=== PATIENT | female | born 1960 | race African-American/Black ===

== ENCOUNTER 2022-06-07 11:44 | Outpatient (CLI) | payer MEDICARE, OTHER, SELFPAY | END 2022-06-07 11:45 | disposition home or self-care (01) | LOC: AMB 06-21 13:52 | PROVIDERS: PCP Family Medicine; Visit Provider Family Medicine | DX: E11.649 Type 2 diabetes mellitus with hypoglycemia without coma (principal); R41.82 Altered mental status, unspecified | CPT/HCPCS: A0425; A0427 ==

== ENCOUNTER 2022-06-07 12:23 | Emergency (ER) | payer MEDICARE, OTHER, SELFPAY ==
[2022-06-07 12:31] VITALS: BP 138/67; PULSE 82; RESP 16; TEMP 36.2; O2SAT 96; BMI 35.2
--- NOTE | 2022-06-07 12:45 | ED.GENADULT ---
HPI - General Adult General Chief complaint: Diabetic Related Problem Stated complaint: Diabetic complications Time Seen by Provider: 06/07/22 12:38 History of Present Illness HPI narrative: This 61-year-old female comes in by ambulance because of a hypoglycemic event. She was not responding at home and was found to have a blood glucose of 30. She received glucagon and was able to take some food and drink and her glucose is normalized since then. She states that she feels back to normal. She reports that she has had hypoglycemic episodes many times in the past. She reports that she has a monitor that is to trigger an alarm when her glucose goes low. This was not functioning because the battery needed to be charged. She states that she takes Lantus at night and thinks that she took her regular NovoLog dose at about 9 or 930 this morning, about 3 hours prior to arrival here. She states that she did not have anything to eat or drink this morning. She reports that she took her normal doses of these medicines and did not accidentally take more than necessary. Related Data Allergies Allergy/AdvReac Type Severity Reaction Status Date / Time No Known Drug Allergies Allergy Verified 06/07/22 12:36 Review of Systems Status of ROS: Reports: 10 or more systems reviewed and unremarkable except as noted in History and below Narrative: Constitutional: No fevers, no weight gain or loss. Eyes: No discharge. No vision changes. HENT: No congestion, no sore throat, no ear pain. Cardiovascular: No chest pain, no palpitations. Respiratory: No shortness of breath, no wheezes, no cough. Gastrointestinal: No abdominal pain, no vomiting, no diarrhea. Genitourinary: No dysuria, no hematuria. Musculoskeletal: Normal range of motion. Skin: No rashes, no pruritis. Neurological: No dizziness, weakness, sensory change, speech change. Endo/Heme/Allergies: No bruising or bleeding. No polydipsia. Pysch: no suicidality, no anxiety, no insomnia. All other systems reviewed and are negative. Exam Narrative: Exam Narrative: Constitutional: Well-developed, well-nourished, no acute distress. HEENT: Normocephalic, atraumatic. Neck: Normal range of motion. Nontender. Supple. Heart: Regular. No murmurs. Normal rate. Intact distal pulses. Lungs: Clear to auscultation. No chest discomfort. No wheezes, rhonchi, or rales. Abdomen: Normal bowel sounds. Nontender. No rebound tenderness. Genitalia: Deferred. Back: No midline tenderness. Normal range of motion. Extremities: Normal range of motion. No injury. Skin: Intact. No rash. Warm. No erythema or pallor. Neurologic: No altered sensation. No weakness. Alert and oriented. Psychiatric: No suicidality. No anxiety or depression. No insomnia. Nursing notes and vitals signs are reviewed. Const: Vital Signs, click to edit/add: Vital Signs - 24 hr 06/07/22 12:31 Temperature 97.1 F L Pulse Rate [Pulse Oximeter] 82 Respiratory Rate 16 Blood Pressure [Ri t Upper Arm] 138/67 Pulse Oximetry 96 Oxygen Delivery Me thod Room Air Course Vital Signs Vital signs: Initial Vital Signs Temperature 97.1 F L 06/07/22 12:31 Temperature Source Temporal Artery Scan 06/07/22 12:31 Pulse Rate 82 06/07/22 12:31 Respiratory Rate 16 06/07/22 12:31 Blood Pressure 138/67 06/07/22 12:31 Blood Pressure Mean 90 06/07/22 12:31 Pulse Oximetry 96 06/07/22 12:31 Oxygen Delivery Method 06/07/22 12:31 Vital Signs Temperature 97.1 F L 06/07/22 12:31 Pulse Rate 82 06/07/22 12:31 Respiratory Rate 16 06/07/22 12:31 Blood Pressure 138/67 06/07/22 12:31 Pulse Oximetry 96 06/07/22 12:31 Oxygen Delivery Method 06/07/22 12:31 Temperature 97.1 F L 06/07/22 12:31 Pulse Rate 82 06/07/22 12:31 Respiratory Rate 16 06/07/22 12:31 Blood Pressure 138/67 06/07/22 12:31 Pulse Oximetry 96 06/07/22 12:31 Oxygen Delivery Method 06/07/22 12:31 Medical Decision Making MDM Narrative Medical decision making narrative: This patient comes in by ambulance because of a hypoglycemic event. Her initial blood glucose was measured at 30. After receiving glucagon EMS her blood glucose improved to 60. A recheck prior to my initial visit showed a glucose of 70 for. She states that she is feeling normal and is been taking food here. Repeat glucose after about 60 minutes returns at 213. She is okay to return home to continue current plans. She was urged to keep her alarm functioning as a hypoglycemic event is potentially a true emergency. ECG Data Attestation: I personally reviewed and interpreted this ECG as follows: Interpretation: Normal sinus rhythm. Rate is 71 beats per minute. There are no ST or T-wave abnormalities. Discharge Plan Discharge Clinical Impression: Hypoglycemic event due to diabetes Patient Disposition: Home, Self-Care Condition: Improved Additional Instructions: Continue current plans. Keep the alarm function of the monitor working properly to monitor and worn for hypoglycemic episodes. Follow up with MD to review medications. Return if worsening. Follow Up/Referrals: Shania Montiel MD [Primary Care Provider] - Stand Alone Forms: [employer] Info Instructions
[2022-06-07 14:36] VITALS: BP 150/78; PULSE 67; RESP 20; TEMP 35.7; O2SAT 90
== END 2022-06-07 15:17 | disposition home or self-care (01) ==
PROVIDERS: Emergency Provider Emergency Medicine Emergency Medical Services; PCP Family Medicine
DX: E11.649 Type 2 diabetes mellitus with hypoglycemia without coma (principal); Z79.4 Long term (current) use of insulin
CPT/HCPCS: 82962; 93005; 99283; 99284

== ENCOUNTER 2022-10-11 02:09 | Outpatient (CLI) | payer MEDICARE, OTHER, SELFPAY | END 2022-10-11 02:10 | disposition home or self-care (01) | LOC: AMB 10-29 11:44 | PROVIDERS: PCP Family Medicine; Visit Provider Emergency Medicine | DX: E11.649 Type 2 diabetes mellitus with hypoglycemia without coma (principal); R41.82 Altered mental status, unspecified | CPT/HCPCS: A0425; A0427 ==

== ENCOUNTER 2022-10-11 02:35 | Inpatient (IN) | payer MEDICARE, OTHER, SELFPAY ==
[2022-10-11] VITALS (61 sets, daily range): BP systolic 81–131; BP diastolic 28–102; PULSE 75–128; RESP 17–32; TEMP 36.4–37.1; O2SAT 33–100; BMI 42.2
[2022-10-11] MEDS: 0.9 % SODIUM CHLORIDE 1000 ml 1,000 ML IV (02:45)
--- NOTE | 2022-10-11 02:50 | ED.GENADULT ---
HPI - General Adult General Date Seen: 10/11/22 Chief complaint: Diabetic Related Problem Stated complaint: High Blood Sugar Time Seen by Provider: 10/11/22 02:42 Source: patient and EMS Mode of arrival: EMS Limitations: no limitations History of Present Illness HPI narrative: Patient is a 61-year-old woman known to the emergency department, history of diabetes and diabetic ketoacidosis, brought in by EMS after family noted that she had high blood sugars and was less responsive than usual. She provides minimal history, she says she feels okay. EMS noted a blood sugar greater than 600. She denies pain or vomiting today, but history is of uncertain reliability. She does not provide any more detailed history. EMS reports that her son was at the house with her but they do not think that he is coming in. Her most recent ER visit was several months ago and was for a hypoglycemic event. I have seen her previously for similar presentation with diabetic ketoacidosis an altered mental status. Related Data Allergies Allergy/AdvReac Type Severity Reaction Status Date / Time No Known Drug Allergies Allergy Verified 06/07/22 12:36 Review of Systems Status of ROS: Reports: unobtainable due to medical condition and unobtainable due to mental status [facility] Medical History (Updated 10/11/22 @ 07:03 by Veda More MD) Acute respiratory failure ?J96.00 - Acute respiratory failure, unspecified whether with hypoxia or hypercapnia (ICD-10) Anemia of other chronic disease ?D63.8 - Anemia in other chronic diseases classified elsewhere (ICD-10) Carpal tunnel syndrome ?G56.00 - Carpal tunnel syndrome, unspecified upper limb (ICD-10) Chronic kidney disease, stage 1 ?N18.1 - Chronic kidney disease, stage 1 (ICD-10) Chronic pain syndrome ?G89.4 - Chronic pain syndrome (ICD-10) Congestive heart failure (CHF) ?I50.9 - Heart failure, unspecified (ICD-10) COPD (chronic obstructive pulmonary disease) ?J44.9 - Chronic obstructive pulmonary disease, unspecified (ICD-10) Depressive disorder ?F32.A - Depression, unspecified (ICD-10) Diabetes type I ?E10.9 - Type 1 diabetes mellitus without complications (ICD-10) 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 diabetic neuropathic arthropathy (ICD-10) Diabetic retinopathy ?E11.319 - Type 2 diabetes mellitus with unspecified diabetic retinopathy without macular edema (ICD-10) GERD (gastroesophageal reflux disease) ?K21.9 - Gastro-esophageal reflux disease without esophagitis (ICD-10) Headache ?R51.9 - Headache, unspecified (ICD-10) Hyperlipidemia ?E78.5 - Hyperlipidemia, unspecified (ICD-10) Hypertension ?I10 - Essential (primary) hypertension (ICD-10) Morbid obesity ?E66.01 - Morbid (severe) obesity due to excess calories (ICD-10) Shoulder pain, left ?M25.512 - Pain in left shoulder (ICD-10) Sleep apnea ?G47.30 - Sleep apnea, unspecified (ICD-10) Thyroid condition ?E07.9 - Disorder of thyroid, unspecified (ICD-10) Ulnar neuropathy ?G56.20 - Lesion of ulnar nerve, unspecified upper limb (ICD-10) Surgical History (Updated 10/11/22 @ 04:53 by Franki Yao RN) History of carpal tunnel release ?Z98.890 - Other specified postprocedural states (ICD-10) History of section ?Z98.891 - History of uterine scar from previous surgery (ICD-10) History of gastric bypass ?Z98.84 - Bariatric surgery status (ICD-10) History of hip replacement ?Z96.649 - Presence of unspecified artificial hip joint (ICD-10) History of knee replacement procedure of right knee ?Z96.651 - Presence of right artificial knee joint (ICD-10) History of thyroidectomy ?E89.0 - Postprocedural hypothyroidism (ICD-10) Hx of cataract removal with insertion of prosthetic lens ?Z98.49 - Cataract extraction status, unspecified eye (ICD-10) ?Z96.1 - Presence of intraocular lens (ICD-10) Social History Smoking Status: Never smoker Do you use any of these nicotine containing products: None Second hand tobacco smoke exposure: No How often do you have a drink containing alcohol: never AUDIT-C Alcohol total score: 0 Non-prescribed substance use: denies use Exam Narrative: Exam Narrative: Vital signs as noted above. In general, somnolent woman, smells ketotic. Head: Normocephalic, atraumatic. Eyes: Pupils are equal reactive. Extraocular movements are full. Conjunctivae appear possibly icteric. ENT: Mucous membranes are somewhat dry. Neck: Supple without lymphadenopathy. Heart: Regular rate and rhythm. No murmur or rub. Lungs: Clear bilaterally. No increased work of breathing, crackles or wheezes. Abdomen: Soft and nontender. Obese. Extremities: Well perfused. No edema. No calf tenderness. Neurologic: On arrival, she was awake, she does fall asleep if not interacting. Rouses to voice. Answers straightforward questions, speech is fluent. Affect: Normal. Skin: Warm and dry. Well perfused. Const: Vital Signs, click to edit/add: Vital Signs - 24 hr 10/11/22 03:24 10/11/22 02:42 10/11/22 02:49 Temperature 98.5 F Pulse Rate 115 H Pulse Rate [Right Pulse Oximeter] 122 H Respiratory Rate 26 H Blood Pressure 114/35 L Blood Pressure [Ri ght Forearm] 105/68 Pulse Oximetry 97 95 [facility] 10/11/22 02:50 10/11/22 03:00 10/11/22 03:01 Temperature Pulse Rate 115 H 109 H 110 H Pulse Rate [Right Pulse Oximeter] Respiratory Rate 28 H 32 H Blood Pressure 105/37 L Blood Pressure [Ri ght Forearm] Pulse Oximetry 98 97 98 [facility] 10/11/22 03:15 10/11/22 03:30 10/11/22 03:34 Temperature Pulse Rate 128 H 127 H 122 H Pulse Rate [Right Pulse Oximeter] Respiratory Rate 27 H 26 H 26 H Blood Pressure Blood Pressure [Ri ght Forearm] Pulse Oximetry 96 96 98 [facility] 10/11/22 03:45 10/11/22 04:00 10/11/22 04:04 Temperature Pulse Rate 116 H 104 H 103 H Pulse Rate [Right Pulse Oximeter] Respiratory Rate 18 26 H 25 H Blood Pressure 90/31 L Blood Pressure [Ri ght Forearm] Pulse Oximetry 98 99 98 Oxygen Delivery Tn thod 10/11/22 04:15 10/11/22 04:19 10/11/22 04:30 Temperature Pulse Rate 104 H 99 112 H Pulse Rate [Right Pulse Oximeter] Respiratory Rate 23 24 26 H Blood Pressure Blood Pressure [Ri ght Forearm] Pulse Oximetry 99 98 33 L Oxygen Delivery Me thod 10/11/22 04:45 10/11/22 05:00 10/11/22 05:03 Temperature Pulse Rate 107 H 105 H 104 H Pulse Rate [Right Pulse Oximeter] Respiratory Rate 28 H 28 H 26 H Blood Pressure 131/102 H Blood Pressure [Ri ght Forearm] Pulse Oximetry 99 100 100 Oxygen Delivery Me thod 10/11/22 05:39 10/11/22 05:04 10/11/22 05:07 Temperature Pulse Rate 106 H 104 H Pulse Rate [Right Pulse Oximeter] 100 Respiratory Rate 26 H 23 Blood Pressure 97/31 L Blood Pressure [Ri ght Forearm] 104/34 L Pulse Oximetry 98 100 98 Oxygen Delivery Me od Room Air 10/11/22 05:15 10/11/22 05:17 10/11/22 05:30 Temperature Pulse Rate 103 H 102 H 94 Pulse Rate [Right Pulse Oximeter] Respiratory Rate 26 H 25 H 22 Blood Pressure 90/32 L Blood Pressure [Ri ght Forearm] Pulse Oximetry 97 98 99 Oxygen Delivery Me thod 10/11/22 05:31 10/11/22 05:39 10/11/22 05:45 Temperature Pulse Rate 100 103 H 98 Pulse Rate [Right Pulse Oximeter] Respiratory Rate 22 21 25 H Blood Pressure 104/34 L 116/34 L Blood Pressure [Ri ght Forearm] Pulse Oximetry 96 98 99 Oxygen Delivery Tn thod 10/11/22 05:47 10/11/22 06:00 10/11/22 06:02 Temperature Pulse Rate 98 86 86 Pulse Rate [Right Pulse Oximeter] Respiratory Rate 26 H 21 21 Blood Pressure 116/34 L 81/28 L Blood Pressure [Ri ght Forearm] Pulse Oximetry 97 96 96 Oxygen Delivery Me thod 10/11/22 06:14 10/11/22 06:15 10/11/22 06:16 Temperature Pulse Rate 98 98 94 Pulse Rate [Right Pulse Oximeter] Respiratory Rate 17 22 22 Blood Pressure 116/38 L Blood Pressure [Ri ght Forearm] Pulse Oximetry 92 92 94 Oxygen Delivery Me thod 10/11/22 06:38 Temperature Pulse Rate 91 Pulse Rate [Right Pulse Oximeter] Respiratory Rate 22 Blood Pressure 103/30 L Blood Pressure [Ri ght Forearm] Pulse Oximetry 93 Oxygen Delivery Me thod Documenting provider has reviewed patient's vital signs: yes Course Course Hospital Course: On arrival, patient was placed on monitor and oximetry an IV was established as paramedics were unable to find an IV EN route. We attempted to check a blood sugar which simply reads high. Labs were drawn. An EKG is ordered and pending. We placed a Snow catheter and urine is reportedly cloudy. Initial labs show a pH of 7.12, white blood cell count of 14, hemoglobin of 11, 8.4. Bicarb is 10 and pCO2 is 31 on her venous gas. Remainder of labs are pending at this time. I am starting out by giving her L of normal saline, will see how initial electrolytes look and then determine plan for insulin as well as electrolyte replacement if needed. Further labs are notable for an elevated potassium 7.9, a sodium of 121 which corrects to 145 based on severe hyper glycemia with the blood sugar that came back at 1326. Serum oz and are elevated at 335, but she is also significantly acidotic with a pH of 7.1 to and bicarb of 10. Urine did look infected, with 25-50 white blood cells and 5-10 red blood cells. We had difficulty obtaining blood cultures as she is a difficult peripheral stick. Upon completion of blood cultures, will give Rocephin 1 g IV. COVID was negative. She became somewhat agitated while in the emergency department, was pulling at her Snow catheter and was not keeping her arms straight, she had antecubital IVs and so they were not running well. Therefore, I did give her 2.5 mg of IV Zyprexa with good result. After her 1 L of fluid, I have ordered a 2 L but him running that over 2 hours as she does have a history of heart failure with a normal ejection fraction. I have also started an insulin drip after an 8 unit bolus at 10 units an hour. She is 136 kilos. Given her severe hyperglycemia and hyperosmolality, I am hoping to correct her ketosis but also not bring her blood sugar down too quickly. A repeat lactate and basic metabolic panel are pending at this time. Her EKG showed a sinus tachycardia with a ventricular rate a little over 100, T waves were slightly peaked in morphology although not significantly large in amplitude. Her potassium was significantly elevated but I am holding off to see with the repeat looks like now that she has had some fluids and some insulin as I think that that will likely correct as we bring her blood sugar down. She has not shown any signs of cardiac irritability or ectopy. Her phosphorus was significantly elevated which will likely also correct. CRP mildly elevated at 6. LFTs show an alk-phos of 177, transaminases are normal as is her bilirubin. BUN is 55, creatinine is elevated at 3.5, suspect that this is pre renal that this will need to be followed. Her baseline is closer to just under 2. Lactate was slightly worse on recheck at 9. Blood sugar did come down a little bit to 1139, potassium was slightly better at 6.7 and I repeat EKG showed a ventricular rate of 101, normal appearing T-waves. I did not think that she needed further treatment for potassium of and to continue with fluids and insulin. Upon completion of her 2 L, started half normal saline at 100 mL/hour and continued with the 10 units/hour of insulin. I did check labs a 3rd time, her lactate was improved to 6.9, potassium came down to 5.1, and acidosis was somewhat improved with a pH of 7.15 and a bicarb of 10. She is mentating somewhat better as well. I think she is stable to go to of the floor at this time. Care is discussed with Dr. Gamez. Vital Signs Vital signs: Initial Vital Signs Pulse Oximetry 95 10/11/22 02:42 Vital Signs Pulse Oximetry 95 10/11/22 02:42 Temperature 98.5 F 10/11/22 03:24 Pulse Rate 91 10/11/22 06:38 Respiratory Rate 22 10/11/22 06:38 Blood Pressure 103/30 L 10/11/22 06:38 Pulse Oximetry 93 10/11/22 06:38 Oxygen Delivery Method Room Air 10/11/22 05:39 Medical Decision Making Lab Data Labs: Lab Results 10/11/22 10/11/22 10/11/22 Range/Units 02:40 02:55 05:00 WBC 14.22 H (4.50-11.00) K/uL RBC 3.72 L (4.00-5.20) m/uL Hgb 11.0 L (12.0-16.0) gm/dL Hct 36.6 (33.0-51.0) % MCV 98 (80-100) fL MCH 30 (26-34) pg MCHC 30 L (32-36) gm/dL RDW Coeff of Stefan 14.1 (11.5-15.5) % Plt Count 348 (140-440) K/uL Neut % (Auto) 87.3 H (42.0-72.0) % Lymph % (Auto) 5.3 L (20-44) % Miller % (Auto) 6.3 (0.0-11.0) % Eos % (Auto) 0.0 (0.0-7.0) % Baso % (Auto) 0.1 (0.0-3.0) % Neut # (Auto) 12.40 H (1.7-7.0) K/uL Lymph # (Auto) 0.80 L (0.90-2.90) K/uL Miller # (Auto) 0.90 (0.00-0.90) K/UL Eos # (Auto) 0.00 (0.00-0.50) K/uL Baso # (Auto) 0.00 (0.00-0.30) K/uL INR 1.09 (0.91-1.10) VBG pH 7.120 L* (7.32-7.43) VBG pCO2 31 L (40-50) mmHG VBG pO2 51.0 H (25-47) mmHG VBG HCO3 10 L (21-28) mmol/L Sodium 121 L* 125 L (135-149) mmol/L Potassium 6.9 H* 6.7 H* (3.6-5.1) mmol/L Chloride 78 L 84 L (96-114) mmol/L Carbon Dioxide 6 L* < 5 L* (20-32) mmol/L BUN 55 H 55 H (7-30) mg/dL Creatinine 3.5 H 3.5 H (0.5-1.5) mg/dL Estimated GFR 14 14 ml/min Glucose 1326 H* 1139 H* (60-115) mg/dL Lactate 8.4 H* 9.0 H* (0.5-1.9) mmol/L Calcium 8.5 7.9 L (8.4-10.6) mg/dL Phosphorus 9.5 H* (2.5-4.5) mg/dL Magnesium 2.3 (1.5-2.6) mg/dL Total Bilirubin 0.8 (0.1-1.5) mg/dL Direct Bilirubin 0.5 (0.0-0.5) mg/dL AST 27 (12-35) U/L ALT 31 (4-35) U/L Alkaline Phosphatase 177 H (40-150) U/L Troponin I < 0.01 L (0.01-0.04) ng/mL C-Reactive Protein 6.0 H (0.5-1.0) mg/dL Total Protein 7.2 (6.0-8.3) g/dL Albumin 4.1 (3.3-5.0) g/dL Urine Color Yellow (Yellow) Urine Appearance Cloudy A (Clear) Urine pH 5.0 (5.0-8.5) Ur Specific [place] 1.025 (1.000-1.030) Urine Protein 3+ A (Negative) Urine Glucose (UA) 1+ A (Negative) Urine Ketones 1+ A (Negative) Urine Blood 3+ A (Negative) Urine Nitrite Negative (Negative) Urine Bilirubin 1+ A (Negative) Urine Urobilinogen 0.2 (0.2-1.0) Ur Leukocyte Esterase 3+ A (Negative) Urine RBC 5-10 A (0-2) Urine WBC 25-50 A (0-5) Ur Squamous Epith Cells Few (None-Few) Urine Bacteria Moderate A (None) SARS-CoV-2 (PCR) Negative SARS-CoV-2 (Negative) 10/11/22 Range/Units 06:30 WBC (4.50-11.00) K/uL RBC (4.00-5.20) m/uL Hgb (12.0-16.0) gm/dL Hct (33.0-51.0) % MCV (80-100) fL MCH (26-34) pg MCHC (32-36) gm/dL RDW Coeff of Stefan (11.5-15.5) % Plt Count (140-440) K/uL Neut % (Auto) (42.0-72.0) % Lymph % (Auto) (20-44) % Miller % (Auto) (0.0-11.0) % Eos % (Auto) (0.0-7.0) % Baso % (Auto) (0.0-3.0) % Neut # (Auto) (1.7-7.0) K/uL Lymph # (Auto) (0.90-2.90) K/uL Miller # (Auto) (0.00-0.90) K/UL Eos # (Auto) (0.00-0.50) K/uL Baso # (Auto) (0.00-0.30) K/uL INR (0.91-1.10) VBG pH 7.152 L* (7.32-7.43) VBG pCO2 30 L (40-50) mmHG VBG pO2 51.4 H (25-47) mmHG VBG HCO3 10 L (21-28) mmol/L Sodium 127 L (135-149) mmol/L Potassium 5.1 (3.6-5.1) mmol/L Chloride 86 L (96-114) mmol/L Carbon Dioxide 10 L (20-32) mmol/L BUN 56 H (7-30) mg/dL Creatinine 3.6 H (0.5-1.5) mg/dL Estimated GFR 14 ml/min Glucose (60-115) mg/dL Lactate 6.9 H* (0.5-1.9) mmol/L Calcium 7.7 L (8.4-10.6) mg/dL Phosphorus (2.5-4.5) mg/dL Magnesium (1.5-2.6) mg/dL Total Bilirubin (0.1-1.5) mg/dL Direct Bilirubin (0.0-0.5) mg/dL AST (12-35) U/L ALT (4-35) U/L Alkaline Phosphatase (40-150) U/L Troponin I (0.01-0.04) ng/mL C-Reactive Protein (0.5-1.0) mg/dL Total Protein (6.0-8.3) g/dL Albumin (3.3-5.0) g/dL Urine Color (Yellow) Urine Appearance (Clear) Urine pH (5.0-8.5) Ur Specific [place] (1.000-1.030) Urine Protein (Negative) Urine Glucose (UA) (Negative) Urine Ketones (Negative) Urine Blood (Negative) Urine Nitrite (Negative) Urine Bilirubin (Negative) Urine Urobilinogen (0.2-1.0) Ur Leukocyte Esterase (Negative) Urine RBC (0-2) Urine WBC (0-5) Ur Squamous Epith Cells (None-Few) Urine Bacteria (None) SARS-CoV-2 (PCR) (Negative) Discharge Plan Discharge Clinical Impression: UTI (urinary tract infection), DKA, type 1 Follow Up/Referrals: Shania Montiel MD [Primary Care Provider] -
[2022-10-11 02:52] LABS: HCO3 VBG 10 mmol/L (21-28); PCO2 VBG 31 mmHG (40-50)
[2022-10-11 02:53] LABS: Basophils Percent Auto 0.1 % (0.0-3.0); Hematocrit 36.6 % (33.0-51.0); Lymphocytes Percent Auto 5.3 % (20-44); Mean Corpuscular HGB Conc 30 gm/dL (32-36); Mean Corpuscular Hemoglobin 30 pg (26-34); Mean Corpuscular Volume 98 fL (80-100); Monocytes Percent Auto 6.3 % (0.0-11.0); Neutrophils Percent Auto 87.3 % (42.0-72.0); Platelet Count* 348 K/uL (140-440); RDW Coefficient of Variation % 14.1 % (11.5-15.5); Red Blood Count 3.72 m/uL (4.00-5.20); White Blood Count* 14.22 K/uL (4.50-11.00)
[2022-10-11 02:55] LABS: Slide Review Reflex No
[2022-10-11 02:57] LABS: Lactate* 8.4 mmol/L (0.5-1.9)
[2022-10-11 03:02] LABS: Appearance Urine Cloudy (Clear); Bilirubin Urine 1+ (Negative); Blood Urine 3+ (Negative); Color Urine Yellow (Yellow); Glucose Urine 1+ (Negative); Ketones Urine 1+ (Negative); Leukocyte Esterase Urine 3+ (Negative); Nitrite Urine Negative (Negative); Protein Urine 3+ (Negative); Specific Gravity Urine 1.025 (1.000-1.030); Urobilinogen Urine 0.2 (0.2-1.0)
[2022-10-11 03:06] LABS: Bacteria Urine Moderate; Squamous Epithelial Cell Urine Few (None-Few); WBC Urine 25-50 (0-5)
[2022-10-11 03:09] LABS: Albumin* 4.1 g/dL (3.3-5.0); Chloride* 78 mmol/L (96-114)
[2022-10-11 03:12] LABS: Creatinine* 3.5 mg/dL (0.5-1.5); Estimated Glomerular Filt Rate 14 ml/min; Magnesium* 2.3 mg/dL (1.5-2.6)
[2022-10-11 03:13] LABS: Alanine Aminotransferase* 31 U/L (4-35); Alkaline Phosphatase* 177 U/L (40-150); Aspartate Amino Transferase* 27 U/L (12-35); Bilirubin Direct* 0.5 mg/dL (0.0-0.5); Bilirubin Total* 0.8 mg/dL (0.1-1.5); Blood Urea Nitrogen* 55 mg/dL (7-30); Calcium* 8.5 mg/dL (8.4-10.6); Total Protein* 7.2 g/dL (6.0-8.3)
[2022-10-11 03:14] LABS: INR 1.09 (0.91-1.10); Prothrombin Time 14.8 Seconds
[2022-10-11 03:19] LABS: Carbon Dioxide* 6 mmol/L (20-32); Potassium* 6.9 mmol/L (3.6-5.1)
[2022-10-11 03:21] LABS: Phosphorus* 9.5 mg/dL (2.5-4.5)
[2022-10-11 03:22] LABS: Sodium* 121 mmol/L (135-149)
[2022-10-11 03:25] LABS: Troponin I* < 0.01 ng/mL (0.01-0.04)
[2022-10-11 03:31] LABS: Glucose* 1326 mg/dL (60-115)
[2022-10-11 03:32] LABS: SARS PCR* Negative SARS-CoV-2 (Negative)
[2022-10-11] MEDS: ONDANSETRON 2 MG/ML inj 4 MG IVP (03:38)
[2022-10-11] MEDS: 0.9 % SODIUM CHLORIDE 1000 ml 1,000 ML 500 ML IV (03:40)
[2022-10-11] MEDS: OLANZapine 5 MG/ML inj 2.5 MG IVP (03:40)
[2022-10-11] MEDS: INSULIN INF 100 UNIT/100 ML 100 UNIT/100 ML BAG 10 UNIT IVPB (03:41)
[2022-10-11] MEDS: cefTRIAXone 1 GM in 0.9 % SODIUM CHLORIDE Mini-bag 100 ML IVPB (05:00)
--- NOTE | 2022-10-11 05:06 | ED.NURSE ---
0500 blood sugar too high blood sent for lab run
[2022-10-11 05:19] LABS: Chloride* 84 mmol/L (96-114)
[2022-10-11 05:20] LABS: Sodium* 125 mmol/L (135-149)
[2022-10-11 05:22] LABS: Creatinine* 3.5 mg/dL (0.5-1.5); Estimated Glomerular Filt Rate 14 ml/min
[2022-10-11 05:23] LABS: Blood Urea Nitrogen* 55 mg/dL (7-30); Calcium* 7.9 mg/dL (8.4-10.6)
[2022-10-11 05:27] LABS: Carbon Dioxide* < 5 mmol/L (20-32); Potassium* 6.7 mmol/L (3.6-5.1)
--- NOTE | 2022-10-11 05:30 | ED.NURSE ---
MD Block verbal to keep insulin drip at same rate.
[2022-10-11 05:39] LABS: Glucose* 1139 mg/dL (60-115)
[2022-10-11 06:35] LABS: HCO3 VBG 10 mmol/L (21-28); PCO2 VBG 30 mmHG (40-50); PO2 VBG 51.4 mmHG (25-47)
[2022-10-11 06:39] LABS: Lactate* 6.9 mmol/L (0.5-1.9); pH VBG 7.152 (7.32-7.43)
[2022-10-11] MEDS: 0.45 % SODIUM CHLORIDE 1000 ML 1,000 ML 100 ML IV (06:41)
[2022-10-11 06:52] LABS: Chloride* 86 mmol/L (96-114); Potassium* 5.1 mmol/L (3.6-5.1); Sodium* 127 mmol/L (135-149)
[2022-10-11 06:54] LABS: Creatinine* 3.6 mg/dL (0.5-1.5); Estimated Glomerular Filt Rate 14 ml/min
[2022-10-11 06:55] LABS: Blood Urea Nitrogen* 56 mg/dL (7-30); Calcium* 7.7 mg/dL (8.4-10.6); Carbon Dioxide* 10 mmol/L (20-32)
[2022-10-11 07:05] LABS: Glucose* 998 mg/dL (60-115)
[2022-10-11] MEDS: 0.9 % SODIUM CHLORIDE 1000 ml 1,000 ML 150 ML IV (08:36)
[2022-10-11] MEDS: PANTOPRAZOLE SODIUM 40 MG INJ IVP (08:46)
[2022-10-11] MEDS: SODIUM CHLORIDE 0.9 % (FLUSH) 10 ML SYRINGE 5 ML IVF ×5 (08:49→21:22)
[2022-10-11] MEDS: INSULIN INF 100 UNIT/100 ML 100 UNIT/100 ML BAG 15 UNIT IVPB ×2 (09:17→16:30)
[2022-10-11 09:23] LABS: HCO3 VBG 18 mmol/L (21-28); PCO2 VBG 42 mmHG (40-50); PO2 VBG 27.6 mmHG (25-47)
[2022-10-11 09:24] LABS: Lactate* 6.2 mmol/L (0.5-1.9)
[2022-10-11 09:25] LABS: pH VBG 7.229 (7.32-7.43)
[2022-10-11 09:50] LABS: Chloride* 87 mmol/L (96-114); Potassium* 5.3 mmol/L (3.6-5.1); Sodium* 129 mmol/L (135-149)
--- NOTE | 2022-10-11 09:52 | CRLHL7_ITS ---
For Patients: As a result of the Cures Act, medical imaging exams and procedure reports are released immediately into your electronic medical record. You may view this report before your referring provider. If you have questions, please contact your health care provider. Indication: New central line placement Comparison: None available. Technique: Single AP view chest Findings: There is a right IJ central venous catheter in satisfactory position. There is mild pulmonary vascular congestion without dense consolidation, effusion or pneumothorax. The cardiomediastinal silhouette is within normal limits. Bilateral shoulder arthroplasties are appreciated. The bony thorax is otherwise intact. Impression: Satisfactory position of right IJ central venous catheter. Mild pulmonary vascular congestion. Dictated by Ayaz Alba MD @ 10/11/2022 10:46:54 AM (Electronically Signed)
[2022-10-11 09:53] LABS: Blood Urea Nitrogen* 60 mg/dL (7-30); Calcium* 8.2 mg/dL (8.4-10.6); Carbon Dioxide* 15 mmol/L (20-32); Creatinine* 3.4 mg/dL (0.5-1.5); Est. Creatinine Clearance* 14.56; Estimated Glomerular Filt Rate 15 ml/min
[2022-10-11 10:03] LABS: Glucose* 835 mg/dL (60-115)
--- NOTE | 2022-10-11 10:14 | P.IMHP_ITS ---
Hospitalist- H&P: HPI History of Present Illness Date Seen: 10/11/22 Chief complaint: High Blood Sugar Narrative: Mikayla Kuhn is a 61 year old female who presented to the emergency room by EMS last night for hyperglycemia and decreased level of consciousness, per family. She has a history of DKA requiring hospitalization. There is no known inciting illness. Blood sugar was >600 by EMS. ER course and findings: - BG 1326, lactate 8.4, phosphorous 9.5, K 6.9 - creatinine 3.5 (outpatient baseline 1.8 per chart review) - positive UA, treated with Rocephin. Blood and urine cultures pending - started on insulin gtt, IVFs - had an episode of agitation, treated with 2.5mg of Zyprexa When I see patient on the floor, she is somewhat obtunded. She is arousable and states No when I ask her about pain. Past medical history updated below. PCP is Dr. Montiel at the [facility]. She also sees Dr. Ibarra of Endocrinology and the pain clinic for chronic pain management. She is currently on duloxetine, Tylenol, topical Voltaren, Lyrica, and a Butrans patch for pain management. She receives home care services from the [facility]. Review of Systems Status of ROS: Reports: unobtainable due to mental status Narrative: Patient is unable to provide complete ROS, specifically denies pain at this time. [facility] Medical History (Updated 10/11/22 @ 13:31 by Saritha Gamez MD) Acute respiratory failure ?J96.00 - Acute respiratory failure, unspecified whether with hypoxia or hypercapnia (ICD-10) Anemia of other chronic disease ?D63.8 - Anemia in other chronic diseases classified elsewhere (ICD-10) Carpal tunnel syndrome ?G56.00 - Carpal tunnel syndrome, unspecified upper limb (ICD-10) Chronic kidney disease, stage 1 ?N18.1 - Chronic kidney disease, stage 1 (ICD-10) Chronic pain syndrome ?G89.4 - Chronic pain syndrome (ICD-10) Congestive heart failure (CHF) ?I50.9 - Heart failure, unspecified (ICD-10) COPD (chronic obstructive pulmonary disease) ?J44.9 - Chronic obstructive pulmonary disease, unspecified (ICD-10) Depressive disorder ?F32.A - Depression, unspecified (ICD-10) Diabetes type I ?E10.9 - Type 1 diabetes mellitus without complications (ICD-10) 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 diabetic neuropathic arthropathy (ICD-10) Diabetic retinopathy ?E11.319 - Type 2 diabetes mellitus with unspecified diabetic retinopathy without macular edema (ICD-10) GERD (gastroesophageal reflux disease) ?K21.9 - Gastro-esophageal reflux disease without esophagitis (ICD-10) Headache ?R51.9 - Headache, unspecified (ICD-10) Hyperlipidemia ?E78.5 - Hyperlipidemia, unspecified (ICD-10) Hypertension ?I10 - Essential (primary) hypertension (ICD-10) Morbid obesity ?E66.01 - Morbid (severe) obesity due to excess calories (ICD-10) Shoulder pain, left ?M25.512 - Pain in left shoulder (ICD-10) Sleep apnea ?G47.30 - Sleep apnea, unspecified (ICD-10) Thyroid condition ?E07.9 - Disorder of thyroid, unspecified (ICD-10) Ulnar neuropathy ?G56.20 - Lesion of ulnar nerve, unspecified upper limb (ICD-10) Surgical History (Updated 10/11/22 @ 04:53 by Franki Yao RN) History of carpal tunnel release ?Z98.890 - Other specified postprocedural states (ICD-10) History of section ?Z98.891 - History of uterine scar from previous surgery (ICD-10) History of gastric bypass ?Z98.84 - Bariatric surgery status (ICD-10) History of hip replacement ?Z96.649 - Presence of unspecified artificial hip joint (ICD-10) History of knee replacement procedure of right knee ?Z96.651 - Presence of right artificial knee joint (ICD-10) History of thyroidectomy ?E89.0 - Postprocedural hypothyroidism (ICD-10) Hx of cataract removal with insertion of prosthetic lens ?Z98.49 - Cataract extraction status, unspecified eye (ICD-10) ?Z96.1 - Presence of intraocular lens (ICD-10) Social History (Updated 10/11/22 @ 13:31 by Saritha Gamez MD) Narrative: Full Code. Lives with son Mitul, who would be medical decision maker if needed. Smoking Status: Never smoker Do you use any of these nicotine containing products: None Second hand tobacco smoke exposure: No How often do you have a drink containing alcohol: never AUDIT-C Alcohol total score: 0 Non-prescribed substance use: denies use Meds Home Medications and Allergies Home Medications Medication Instructions Recorded Confirmed Type amlodipine 2.5 mg tablet 2.5 mg PO BID 10/11/22 10/11/22 History atorvastatin 20 mg tablet 20 mg PO QPM 10/11/22 10/11/22 History buprenorphine 5 mcg/hour weekly 1 patch topical 10/11/22 History transdermal patch cetirizine 5 mg tablet 5 mg PO DAILY 10/11/22 10/11/22 History cholecalciferol (vitamin D3) 50 50 mcg PO DAILY 10/11/22 10/11/22 History mcg (2,000 unit) capsule duloxetine 60 mg capsule,delayed 60 mg PO DAILY 10/11/22 10/11/22 History release insulin aspart U-100 100 unit/mL 4 unit subcut TIDWM 10/11/22 10/11/22 History (3 mL) subcutaneous pen (Novolog FlexPen U-100 Insulin aspart) insulin glargine 100 unit/mL (3 13 unit subcut HS 10/11/22 10/11/22 History mL) subcutaneous pen (Lantus Solostar U-100 Insulin) ipratropium 0.5 mg-albuterol 3 mg 3 ml inhalation BID PRN wheezing 10/11/22 10/11/22 History (2.5 mg base)/3 mL nebulization soln losartan 25 mg tablet 12.5 mg PO DAILY 10/11/22 10/11/22 History metoprolol succinate 25 mg 25 mg PO DAILY 10/11/22 10/11/22 History tablet,extended release 24 hr omeprazole 20 mg capsule,delayed 20 mg PO DAILY 10/11/22 10/11/22 History release oxycodone 5 mg tablet 5 mg PO BID PRN 10/11/22 10/11/22 History polyethylene glycol 3350 17 17 g PO BID 10/11/22 10/11/22 History gram/dose oral powder (Miralax) pregabalin 100 mg capsule 200 mg PO QAM 10/11/22 10/11/22 History pregabalin 50 mg capsule 150 mg PO HS 10/11/22 10/11/22 History sennosides 8.6 mg-docusate sodium 2 tab PO BID 10/11/22 10/11/22 History 50 mg tablet (Stool Softener-Stimulant Laxative) torsemide 20 mg tablet 40 mg PO DAILY 10/11/22 10/11/22 History Allergies Allergy/AdvReac Type Severity Reaction Status Date / Time No Known Drug Allergies Allergy Verified 06/07/22 12:36 Exam Narrative: Exam Narrative: GEN: Laying in hospital bed, appears ill, responsive to voice CV: RRR with HR in the 80s during my exam, no concerning murmurs R: LCTA bilaterally without concerning wheezing, exam limited Ab: protuberant, no masses, tolerates palpation Ext: 2+ edema BLE Skin: No concerning skin lesions or rashes on exposed skin, known heel wound not formally examined Neuro: No focal deficits, exam limited Const: Vital Signs, click to edit/add: Vital Signs - 24 hr 10/11/22 03:24 10/11/22 02:42 10/11/22 02:49 Temperature 98.5 F Pulse Rate 115 H Pulse Rate [Pulse Oximeter] Pulse Rate [Right Pulse Oximeter] 122 H Respiratory Rate 26 H Blood Pressure 114/35 L Blood Pressure [Ri ght Forearm] 105/68 Pulse Oximetry 97 95 98 Oxygen Delivery [facility] Room Air 10/11/22 02:50 10/11/22 03:00 10/11/22 03:01 Temperature Pulse Rate 115 H 109 H 110 H Pulse Rate [Pulse Oximeter] Pulse Rate [Right Pulse Oximeter] Respiratory Rate 28 H 32 H Blood Pressure 105/37 L Blood Pressure [Ri ght Forearm] Pulse Oximetry 98 97 98 [facility] 03:15 10/11/22 03:30 10/11/22 03:34 Temperature Pulse Rate 128 H 127 H 122 H Pulse Rate [Pulse Oximeter] Pulse Rate [Right Pulse Oximeter] Respiratory Rate 27 H 26 H 26 H Blood Pressure Blood Pressure [Ri ght Forearm] Pulse Oximetry 96 96 98 [facility] 10[facility]11/22 03:45 10/11/22 04:00 10/11/22 04:04 Temperature Pulse Rate 116 H 104 H 103 H Pulse Rate [Pulse Oximeter] Pulse Rate [Right Pulse Oximeter] Respiratory Rate 18 26 H 25 H Blood Pressure 90/31 L Blood Pressure [Ri ght Forearm] Pulse Oximetry 98 99 98 Oxygen Delivery Me thod 10/11/22 04:15 10/11/22 04:19 10/11/22 04:30 Temperature Pulse Rate 104 H 99 112 H Pulse Rate [Pulse Oximeter] Pulse Rate [Right Pulse Oximeter] Respiratory Rate 23 24 26 H Blood Pressure Blood Pressure [Ri ght Forearm] Pulse Oximetry 99 98 33 L Oxygen Delivery Me thod 10/11/22 04:45 10/11/22 05:00 10/11/22 05:03 Temperature Pulse Rate 107 H 105 H 104 H Pulse Rate [Pulse Oximeter] Pulse Rate [Right Pulse Oximeter] Respiratory Rate 28 H 28 H 26 H Blood Pressure 131/102 H Blood Pressure [Ri ght Forearm] Pulse Oximetry 99 100 [facility] 10[facility]/22 05:39 10/11/22 05:04 10/11/22 05:07 Temperature Pulse Rate 106 H 104 H Pulse Rate [Pulse Oximeter] Pulse Rate [Right Pulse Oximeter] 100 Respiratory Rate 26 H 23 Blood Pressure 97/31 L Blood Pressure [Ri ght Forearm] 104/34 L Pulse Oximetry 98 100 98 [facility] 10/11/22 05:15 10/11/22 05:17 10/11/22 05:30 Temperature Pulse Rate 103 H 102 H 94 Pulse Rate [Pulse Oximeter] Pulse Rate [Right Pulse Oximeter] Respiratory Rate 26 H 25 H 22 Blood Pressure 90/32 L Blood Pressure [Ri ght Forearm] Pulse Oximetry 97 98 99 [facility] 10/11/22 05:31 10/11/22 05:39 10/11/22 05:45 Temperature Pulse Rate 100 103 H 98 Pulse Rate [Pulse Oximeter] Pulse Rate [Right Pulse Oximeter] Respiratory Rate 22 21 25 H Blood Pressure 104/34 L 116/34 L Blood Pressure [Ri ght Forearm] Pulse Oximetry 96 98 99 [facility] 10/11/22 05:47 10/11/22 06:00 10/11/22 06:02 Temperature Pulse Rate 98 86 86 Pulse Rate [Pulse Oximeter] Pulse Rate [Right Pulse Oximeter] Respiratory Rate 26 H 21 21 Blood Pressure 116/34 L 81/28 L Blood Pressure [Ri ght Forearm] Pulse Oximetry 97 96 96 [facility] 10/11/22 06:14 10/11/22 06:15 10/11/22 06:16 Temperature Pulse Rate 98 98 94 Pulse Rate [Pulse Oximeter] Pulse Rate [Right Pulse Oximeter] Respiratory Rate 17 22 22 Blood Pressure 116/38 L Blood Pressure [Ri ght Forearm] Pulse Oximetry 92 92 94 [facility] 10/11/22 06:38 10/11/22 06:48 10/11/22 07:00 Temperature Pulse Rate 91 87 90 Pulse Rate [Pulse Oximeter] Pulse Rate [Right Pulse Oximeter] Respiratory Rate 22 21 19 Blood Pressure 103/30 L Blood Pressure [Ri ght Forearm] Pulse Oximetry 93 92 90 [facility] 10/11/22 07:02 10/11/22 07:15 10/11/22 07:20 Temperature Pulse Rate 88 105 H 106 H Pulse Rate [Pulse Oximeter] Pulse Rate [Right Pulse Oximeter] Respiratory Rate 20 25 H 25 H Blood Pressure 89/32 L 97/49 L Blood Pressure [Ri ght Forearm] Pulse Oximetry 91 93 97 [facility] 10/11/22 07:21 10/11/22 07:30 10/11/22 07:31 Temperature Pulse Rate 108 H 109 H 107 H Pulse Rate [Pulse Oximeter] Pulse Rate [Right Pulse Oximeter] Respiratory Rate 26 H 24 21 Blood Pressure 116/58 L Blood Pressure [Ri ght Forearm] Pulse Oximetry 97 96 97 [facility] 10/11/22 08:18 10/11/22 09:00 10/11/22 09:02 Temperature 98.7 F Pulse Rate 91 Pulse Rate [Pulse Oximeter] 98 Pulse Rate [Right Pulse Oximeter] Respiratory Rate 20 20 Blood Pressure Blood Pressure [Ri ght Forearm] Pulse Oximetry 95 95 Oxygen Delivery [facility] Room Air Room Air Hospitalist - H&P: Result Labs Labs: Short CBC 10/11/22 Range/Units 02:40 WBC 14.22 H (4.50-11.00) K/uL Hgb 11.0 L (12.0-16.0) gm/dL Hct 36.6 (33.0-51.0) % Plt Count 348 (140-440) K/uL BMP 10/11/22 10/11/22 10/11/22 02:40 05:00 06:30 Sodium 121 L* 125 L 127 L Potassium 6.9 H* 6.7 H* 5.1 Chloride 78 L 84 L 86 L Carbon Dioxide 6 L* < 5 L* 10 L BUN 55 H 55 H 56 H Creatinine 3.5 H 3.5 H 3.6 H Glucose 1326 H* 1139 H* 998 H* Calcium 8.5 7.9 L 7.7 L 10/11/22 10/11/22 07:19 07:19 Sodium 129 L Potassium 5.3 H Chloride 87 L Carbon Dioxide 15 L BUN 60 H Creatinine 3.4 H Glucose Cancelled 835 H* Calcium 8.2 L Cardiac Enzymes 10/11/22 Range/Units 02:40 Troponin I < 0.01 L (0.01-0.04) ng/mL Liver Function 10/11/22 Range/Units 02:40 Total Bilirubin 0.8 (0.1-1.5) mg/dL Direct Bilirubin 0.5 (0.0-0.5) mg/dL AST 27 (12-35) U/L ALT 31 (4-35) U/L Alkaline Phosphatase 177 H (40-150) U/L Albumin 4.1 (3.3-5.0) g/dL Urine 10/11/22 Range/Units 02:55 Urine Color Yellow (Yellow) Urine Appearance Cloudy A (Clear) Urine pH 5.0 (5.0-8.5) Ur Specific [place] 1.025 (1.000-1.030) Urine Protein 3+ A (Negative) Urine Glucose (UA) 1+ A (Negative) Assessment and Plan Assessment and plan (1) DKA, type 1: Problem comment: - UTI likely trigger - continue insulin gtt - given need for Q4H VBG and BMP, as well as aggressive fluid resuscitation, consulted General Surgery for central line placement - critical care status Status: Acute (2) UTI (urinary tract infection): Problem comment: - continue Ceftriaxone, await culture results Status: Acute (3) Acute kidney injury: Problem comment: - likely related to acute illness/UTI, also has hyperphosphatemia and hyperkalemia - aggressive fluid resuscitation, follow renal function and electrolytes closely Status: Acute Plan - per above - SCDs and renally dosed Lovenox for prophylaxis - son updated by phone, questions answered
[2022-10-11] MEDS: LACTATED RINGERS 1000 ML 1,000 ML IV (10:22)
--- NOTE | 2022-10-11 10:52 | PM.PROC ---
Procedure Note Date Seen: 10/11/22 Will [facility] bill your pro fee for this procedure?: Yes Pre-op diagnosis: Diabetic ketoacidosis Post-op diagnosis: same Procedure: Right IJ Central Line Placement with Ultrasound Guidance Procedure Description: After obtaining informed consent from the patient's son, the patient was positioned in Trendelenburg position and her right neck was prepped and draped sterilely. The patient's right internal jugular vein was visualized using ultrasound. Local anesthetic was injected into the skin overlying the vein. This was accessed percutaneously using ultrasound guidance. Using Seldinger technique, a guidewire was threaded through the needle. A skin vahid was made around the wire. Once this was done, the placement was placed flat and the tract was dilated over the wire. The dilator was then removed and the triple-lumen central venous catheter was advanced over the wire. All the ports were found to flush and aspirate easily. This was secured in place at 15 cm with suture. A sterile dressing was applied. A postop chest x-ray showed the catheter in good position without evidence of pneumothorax. Anesthesia: local Estimated blood loss (mL): 5 Condition: stable
--- NOTE | 2022-10-11 11:04 | REH.PT ---
Per MD, hold PT/OT today, pt not ready for therapies.
[2022-10-11] MEDS: HEPARIN 500 UNIT/5 ML SYRINGE IVF ×3 (11:07→17:32)
--- NOTE | 2022-10-11 11:10 | PM.GSPN ---
Subjective Subjective Date Seen: 10/11/22 Interval history: I was asked by Dr. Gamez to place a central line on this patient in diabetic ketoacidosis. She is in need of frequent blood draws because of her profound acidosis and hyperglycemia that does not register on the bedside monitor. She has a difficult IV access and blood draw. The patient is not on anticoagulation. She is minimally responsive. Exam Narrative: Exam Narrative: General: Patient is obdunded Respiratory: Breathing is nonlabored on room air Chest: Right IJ visible with ultrasound. There is respiratory variation. Const: Vital Signs, click to edit/add: Vital Signs - 24 hr 10/11/22 03:24 10/11/22 02:42 10/11/22 02:49 Temperature 98.5 F Pulse Rate 115 H Pulse Rate [Pulse Oximeter] Pulse Rate [Right Pulse Oximeter] 122 H Respiratory Rate 26 H Blood Pressure 114/35 L Blood Pressure [Le ft Arm] Blood Pressure [Ri ght Forearm] 105/68 Pulse Oximetry 97 95 98 Oxygen Delivery Me thod Room Air 10/11/22 02:50 10/11/22 03:00 10/11/22 03:01 Temperature Pulse Rate 115 H 109 H 110 H Pulse Rate [Pulse Oximeter] Pulse Rate [Right Pulse Oximeter] Respiratory Rate 28 H 32 H Blood Pressure 105/37 L Blood Pressure [Le ft Arm] Blood Pressure [Ri ght Forearm] Pulse Oximetry 98 97 98 Oxygen Delivery Me od 10/11/22 03:15 10/11/22 03:30 10/11/22 03:34 Temperature Pulse Rate 128 H 127 H 122 H Pulse Rate [Pulse Oximeter] Pulse Rate [Right Pulse Oximeter] Respiratory Rate 27 H 26 H 26 H Blood Pressure Blood Pressure [Le ft Arm] Blood Pressure [Ri ght Forearm] Pulse Oximetry 96 96 98 Oxygen Delivery Me thod 10/11/22 03:45 10/11/22 04:00 10/11/22 04:04 Temperature Pulse Rate 116 H 104 H 103 H Pulse Rate [Pulse Oximeter] Pulse Rate [Right Pulse Oximeter] Respiratory Rate 18 26 H 25 H Blood Pressure 90/31 L Blood Pressure [Le ft Arm] Blood Pressure [Ri ght Forearm] Pulse Oximetry 98 99 98 Oxygen Delivery Me thod 10/11/22 04:15 10/11/22 04:19 10/11/22 04:30 Temperature Pulse Rate 104 H 99 112 H Pulse Rate [Pulse Oximeter] Pulse Rate [Right Pulse Oximeter] Respiratory Rate 23 24 26 H Blood Pressure Blood Pressure [Le ft Arm] Blood Pressure [Ri ght Forearm] Pulse Oximetry 99 98 33 L Oxygen Delivery Me thod 10/11/22 04:45 10/11/22 05:00 10/11/22 05:03 Temperature Pulse Rate 107 H 105 H 104 H Pulse Rate [Pulse Oximeter] Pulse Rate [Right Pulse Oximeter] Respiratory Rate 28 H 28 H 26 H Blood Pressure 131/102 H Blood Pressure [Le ft Arm] Blood Pressure [Ri ght Forearm] Pulse Oximetry 99 100 [facility] 05:39 10/11/22 05:04 10/11/22 05:07 Temperature Pulse Rate 106 H 104 H Pulse Rate [Pulse Oximeter] Pulse Rate [Right Pulse Oximeter] 100 Respiratory Rate 26 H 23 Blood Pressure 97/31 L Blood Pressure [Le ft Arm] Blood Pressure [Ri ght Forearm] 104/34 L Pulse Oximetry 98 100 98 [facility] 10/11/22 05:15 10/11/22 05:17 10/11/22 05:30 Temperature Pulse Rate 103 H 102 H 94 Pulse Rate [Pulse Oximeter] Pulse Rate [Right Pulse Oximeter] Respiratory Rate 26 H 25 H 22 Blood Pressure 90/32 L Blood Pressure [Le ft Arm] Blood Pressure [Ri ght Forearm] Pulse Oximetry 97 98 99 [facility] 10/11/22 05:31 10/11/22 05:39 10/11/22 05:45 Temperature Pulse Rate 100 103 H 98 Pulse Rate [Pulse Oximeter] Pulse Rate [Right Pulse Oximeter] Respiratory Rate 22 21 25 H Blood Pressure 104/34 L 116/34 L Blood Pressure [Le ft Arm] Blood Pressure [Ri ght Forearm] Pulse Oximetry 96 98 99 [facility] 10/11/22 05:47 10/11/22 06:00 10/11/22 06:02 Temperature Pulse Rate 98 86 86 Pulse Rate [Pulse Oximeter] Pulse Rate [Right Pulse Oximeter] Respiratory Rate 26 H 21 21 Blood Pressure 116/34 L 81/28 L Blood Pressure [Le ft Arm] Blood Pressure [Ri ght Forearm] Pulse Oximetry 97 96 96 [facility] 10/11/22 06:14 10/11/22 06:15 10/11/22 06:16 Temperature Pulse Rate 98 98 94 Pulse Rate [Pulse Oximeter] Pulse Rate [Right Pulse Oximeter] Respiratory Rate 17 22 22 Blood Pressure 116/38 L Blood Pressure [Le ft Arm] Blood Pressure [Ri ght Forearm] Pulse Oximetry 92 92 94 [facility] 10[facility]11/22 06:38 10/11/22 06:48 10/11/22 07:00 Temperature Pulse Rate 91 87 90 Pulse Rate [Pulse Oximeter] Pulse Rate [Right Pulse Oximeter] Respiratory Rate 22 21 19 Blood Pressure 103/30 L Blood Pressure [Le ft Arm] Blood Pressure [Ri ght Forearm] Pulse Oximetry 93 92 90 Oxygen Delivery [facility] 10/11/22 07:02 10/11/22 07:15 10/11/22 07:20 Temperature Pulse Rate 88 105 H 106 H Pulse Rate [Pulse Oximeter] Pulse Rate [Right Pulse Oximeter] Respiratory Rate 20 25 H 25 H Blood Pressure 89/32 L 97/49 L Blood Pressure [Le ft Arm] Blood Pressure [Ri ght Forearm] Pulse Oximetry 91 93 97 [facility] 10/11/22 07:21 10/11/22 07:30 10/11/22 07:31 Temperature Pulse Rate 108 H 109 H 107 H Pulse Rate [Pulse Oximeter] Pulse Rate [Right Pulse Oximeter] Respiratory Rate 26 H 24 21 Blood Pressure 116/58 L Blood Pressure [Le ft Arm] Blood Pressure [Ri ght Forearm] Pulse Oximetry 97 96 97 [facility] 10/11/22 08:18 10/11/22 09:00 10/11/22 09:02 Temperature 98.7 F Pulse Rate 91 Pulse Rate [Pulse Oximeter] 98 Pulse Rate [Right Pulse Oximeter] Respiratory Rate 20 20 Blood Pressure Blood Pressure [Le ft Arm] Blood Pressure [Ri ght Forearm] Pulse Oximetry 95 95 Oxygen Delivery [facility] Room Air Room Air 10/11/22 08:00 10/11/22 09:20 10/11/22 10:30 Temperature 98.7 F 97.8 F 98.3 F Pulse Rate Pulse Rate [Pulse Oximeter] 98 86 80 Pulse Rate [Right Pulse Oximeter] Respiratory Rate 20 20 20 Blood Pressure Blood Pressure [Le ft Arm] 128/61 118/48 L 94/36 L Blood Pressure [Ri ght Forearm] Pulse Oximetry 95 94 90 Oxygen Delivery Me thod Room Air Room Air Progress Note: A&P Assessment and plan (1) UTI (urinary tract infection): Status: Acute (2) DKA, type 1: Status: Acute Plan The patient is a 7-year-old female with diabetic ketoacidosis and difficult IV access with need for critical care and frequent blood draws. I discussed central line placement with the patient's son who gave consent over the phone. The procedure was performed in the CCU without incident.
[2022-10-11 11:22] LABS: Glucose* 607 mg/dL (60-115)
[2022-10-11 13:53] LABS: HCO3 VBG 28 mmol/L (21-28); PCO2 VBG 45 mmHG (40-50); PO2 VBG 55.9 mmHG (25-47)
[2022-10-11 14:08] LABS: Basophils Absolute Auto 0.01 K/uL (0.00-0.30); Basophils Percent Auto 0.1 % (0.0-3.0); Eosinophils Absolute Auto 0.01 K/uL (0.00-0.50); Eosinophils Percent Auto 0.1 % (0.0-7.0); Hematocrit 28.4 % (33.0-51.0); Hemoglobin* 9.3 gm/dL (12.0-16.0); Immature Granulocytes Abs Auto 0.02 K/uL (0.00-0.30); Immature Granulocytes Pct Auto 0.2 %; Lymphocytes Percent Auto 11.3 % (20-44); Mean Corpuscular HGB Conc 33 gm/dL (32-36); Mean Corpuscular Hemoglobin 29 pg (26-34); Mean Corpuscular Volume 89 fL (80-100); Monocytes Percent Auto 7.8 % (0.0-11.0); Neutrophils Percent Auto 80.5 % (42.0-72.0); Platelet Count* 286 K/uL (140-440); RDW Coefficient of Variation % 13.5 % (11.5-15.5); Red Blood Count 3.21 m/uL (4.00-5.20); Slide Review Reflex No; White Blood Count* 9.87 K/uL (4.50-11.00)
[2022-10-11] MEDS: 0.9 % SODIUM CHLORIDE 1000 ml 1,000 ML 200 ML IV (14:19)
[2022-10-11 14:27] LABS: Chloride* 94 mmol/L (96-114); Potassium* 4.1 mmol/L (3.6-5.1); Sodium* 131 mmol/L (135-149)
[2022-10-11 14:30] LABS: Blood Urea Nitrogen* 62 mg/dL (7-30); Carbon Dioxide* 29 mmol/L (20-32); Creatinine* 3.2 mg/dL (0.5-1.5); Est. Creatinine Clearance* 15.47; Estimated Glomerular Filt Rate 16 ml/min
[2022-10-11 14:31] LABS: Calcium* 7.8 mg/dL (8.4-10.6); Phosphorus* 3.2 mg/dL (2.5-4.5)
[2022-10-11 14:35] LABS: Glucose* 436 mg/dL (60-115)
[2022-10-11] MEDS: LACTATED RINGERS 1000 ML 500 ML IV ×2 (15:12→16:54)
[2022-10-11] MEDS: 0.9 % SODIUM CH + KCL 20 mEq/L 1,000 ML 150 ML IV (16:33)
[2022-10-11 17:47] LABS: Lactate* 2.4 mmol/L (0.5-1.9)
[2022-10-11 17:48] LABS: PCO2 VBG 50 mmHG (40-50); PO2 VBG 48.7 mmHG (25-47); pH VBG 7.396 (7.32-7.43)
[2022-10-11 17:49] LABS: HCO3 VBG 31 mmol/L (21-28)
[2022-10-11 18:12] LABS: Chloride* 99 mmol/L (96-114); Sodium* 134 mmol/L (135-149)
[2022-10-11] MEDS: PIPERACILLIN/TAZOBACTAM 2.25 GM in 0.9 % SODIUM CHLORIDE Mini-bag 100 ML IVPB (18:13)
[2022-10-11] MEDS: 0.9 % SODIUM CHLORIDE 250 ml IV (18:13)
[2022-10-11] MEDS: 5 % DEX/0.45 SOD CHL+KCL20 mEq 1,000 ML 125 ML IV (18:14)
[2022-10-11 18:15] LABS: Creatinine* 3.3 mg/dL (0.5-1.5); Estimated Glomerular Filt Rate 15 ml/min
[2022-10-11] MEDS: DEXTROSE 50 % SYRINGE IVP ×2 (18:15→21:44)
[2022-10-11 18:16] LABS: Blood Urea Nitrogen* 59 mg/dL (7-30); Calcium* 7.8 mg/dL (8.4-10.6); Carbon Dioxide* 30 mmol/L (20-32); Glucose* 142 mg/dL (60-115)
--- NOTE | 2022-10-11 18:46 | PC.NURSE ---
Shift Summary: Patient has been resting throughout shift, lethargic, wakes when shaken/talked to, attempts to answer staffs questions however is slow and speech is mumbled. T&R in bed with two assist, pillows under heels with mepilex in place bilaterally, patient has healing wound on right heel, consult from wound clinic done earlier. Coccyx/bottom without any open sores. BP soft throughout shift, has received bolus x3. Urine output has been less and less, updated, no new orders at this time. Snow cath in place, urine also appears cloudy and concentrated. New central line placed this morning by Dr. Gutierrez. Continues to have insulin drip running, checks done hourly. o2 @ 0.5L/NC. Patient heard snoring, HOB elevated to 30 degrees.
--- NOTE | 2022-10-11 19:35 | W.PM.CROSSCO ---
Subjective Subjective Interval history: patient hypotensive; bolus ordered will broaden antitiotics to zosyn lactate improving will follow electrolytes IVF changed to Dextrose based fluid
[2022-10-11] MEDS: ENOXAPARIN 30 MG/0.3ML INJ SUBCUT (21:22)
[2022-10-11 22:06] LABS: HCO3 VBG 30 mmol/L (21-28); PCO2 VBG 53 mmHG (40-50); PO2 VBG 41.3 mmHG (25-47); pH VBG 7.359 (7.32-7.43)
[2022-10-11 22:07] LABS: Lactate Sepsis w/Reflex* 0.9 mmol/L (0.5-1.9)
[2022-10-11 23:10] LABS: Chloride* 97 mmol/L (96-114); Sodium* 132 mmol/L (135-149)
[2022-10-11 23:11] LABS: Potassium* 4.5 mmol/L (3.6-5.1)
[2022-10-11 23:13] LABS: Carbon Dioxide* 30 mmol/L (20-32); Creatinine* 3.2 mg/dL (0.5-1.5); Est. Creatinine Clearance* 15.47; Estimated Glomerular Filt Rate 16 ml/min
[2022-10-11 23:14] LABS: Blood Urea Nitrogen* 59 mg/dL (7-30); Calcium* 7.9 mg/dL (8.4-10.6); Glucose* 287 mg/dL (60-115)
[2022-10-12] VITALS (24 sets, daily range): BP systolic 106–179; BP diastolic 43–76; PULSE 71–100; RESP 16–22; TEMP 36.3–37.2; O2SAT 92–99
[2022-10-12] MEDS: PIPERACILLIN/TAZOBACTAM 2.25 GM in 0.9 % SODIUM CHLORIDE Mini-bag 100 ML IVPB ×4 (00:26→17:37)
[2022-10-12] MEDS: 5 % DEX/0.45 SOD CHL+KCL20 mEq 1,000 ML 125 ML IV ×2 (01:39→10:03)
[2022-10-12] MEDS: SODIUM CHLORIDE 0.9 % (FLUSH) 10 ML SYRINGE 5 ML IVF ×6 (04:14→20:27)
[2022-10-12] MEDS: HEPARIN 500 UNIT/5 ML SYRINGE IVF ×2 (04:15→17:38)
[2022-10-12 04:25] LABS: HCO3 VBG 29 mmol/L (21-28); Ionized Calcium* 1.13 mmol/L (1.11-1.30); Lactate* 0.9 mmol/L (0.5-1.9); PCO2 VBG 50 mmHG (40-50); PO2 VBG 44.1 mmHG (25-47); pH VBG 7.371 (7.32-7.43)
[2022-10-12 04:26] LABS: Basophils Absolute Auto 0.01 K/uL (0.00-0.30); Basophils Percent Auto 0.1 % (0.0-3.0); Eosinophils Absolute Auto 0.19 K/uL (0.00-0.50); Eosinophils Percent Auto 1.9 % (0.0-7.0); Hematocrit 29.9 % (33.0-51.0); Hemoglobin* 9.9 gm/dL (12.0-16.0); Immature Granulocytes Abs Auto 0.03 K/uL (0.00-0.30); Immature Granulocytes Pct Auto 0.3 %; Lymphocytes Percent Auto 18.9 % (20-44); Mean Corpuscular HGB Conc 33 gm/dL (32-36); Mean Corpuscular Hemoglobin 29 pg (26-34); Mean Corpuscular Volume 88 fL (80-100); Monocytes Percent Auto 10.6 % (0.0-11.0); Neutrophils Absolute Auto 6.91 K/uL (1.7-7.0); Neutrophils Percent Auto 68.2 % (42.0-72.0); Platelet Count* 257 K/uL (140-440); RDW Coefficient of Variation % 13.6 % (11.5-15.5); Red Blood Count 3.39 m/uL (4.00-5.20); White Blood Count* 10.12 K/uL (4.50-11.00)
[2022-10-12 04:27] LABS: Slide Review Reflex No
[2022-10-12 04:40] LABS: Chloride* 100 mmol/L (96-114)
[2022-10-12 04:41] LABS: Hemoglobin A1C* 10.12 % (0-5.6); Potassium* 4.2 mmol/L (3.6-5.1); Sodium* 133 mmol/L (135-149)
[2022-10-12 04:43] LABS: Alkaline Phosphatase* 128 U/L (40-150); Aspartate Amino Transferase* 37 U/L (12-35); Bilirubin Total* 0.4 mg/dL (0.1-1.5); Blood Urea Nitrogen* 57 mg/dL (7-30); Carbon Dioxide* 27 mmol/L (20-32); Creatinine* 3.2 mg/dL (0.5-1.5); Est. Creatinine Clearance* 15.47; Estimated Glomerular Filt Rate 16 ml/min; Glucose* 175 mg/dL (60-115); Total Protein* 6.1 g/dL (6.0-8.3)
[2022-10-12 04:44] LABS: Alanine Aminotransferase* 20 U/L (4-35); Calcium* 8.2 mg/dL (8.4-10.6); Magnesium* 1.9 mg/dL (1.5-2.6); Phosphorus* 2.8 mg/dL (2.5-4.5)
--- NOTE | 2022-10-12 06:04 | PC.NURSE ---
: Pt currently on insulin drip @ 1.9 units/hr, last bg 145. BP improved without needing to start levophed, other vss on ra. Pt still somnolent, but improved arousability, opens eyes and answers y/n questions, resting comfortably. Snow output around 75cc q2h.
[2022-10-12] MEDS: cefTRIAXone 1 GM in 0.9 % SODIUM CHLORIDE Mini-bag 100 ML IVPB (06:33)
[2022-10-12] MEDS: INSULIN INF 100 UNIT/100 ML 100 UNIT/100 ML BAG IVPB (07:13)
[2022-10-12] MEDS: PANTOPRAZOLE SODIUM 40 MG INJ IVP (08:19)
--- NOTE | 2022-10-12 09:09 | REH.OT ---
Patient remains somnolent and not appropriate for OT/PT today. Will attempt on 10/13/22
--- NOTE | 2022-10-12 09:17 | P.IMPN_ITS ---
Progress Note: A&P Assessment and plan (1) Sepsis: Problem details: - presumed given UTI, hypotension, tachycardia - On Zosyn and IVFs, has not required pressors Status: Acute (2) Acute kidney injury: Problem details: - + hyperphosphatemia and hyperkalemia on admission (resolved on 10/12) - ddx: intrarenal from infectious process, DM1, nephrotic syndrome - aggressive fluid resuscitation with boluses as needed - renal ultrasound and urine studies ordered 10/12 Status: Acute (3) DKA, type 1: Problem details: - UTI likely trigger - transition off of insulin gtt 10/12, start po intake and sliding scale insulin - VBG has normalized on 10/12 Status: Acute (4) UTI (urinary tract infection): Problem details: - Ceftriaxone broaded to Zosyn 10/11, urine culture growing pino-sensitive E Coli Status: Acute Plan - given improvement in acidosis, stop insulin gtt, start home insulin dose and SSI - continue following VBGs and BMP - renal ultrasound, follow lytes, IVFs as needed for low UOP/hypotension - TTE - po intake as tolerated - continue IV antibiotics - renally dosed Lovenox for ppx Subjective Date Seen: 10/12/22 Interval history: Kati received multiple IVF boluses overnight, did not require pressors. Ceftriaxone broadened to Zosyn. pH, potassium, phosphorous have normalized. Creatinine remains elevated at 3.2 BCx remains NGTD, Urine culture + for pansensitive E Coli Exam Narrative: Exam Narrative: GEN: Patient is resting in bed, awakes to voice. Denies any concerns for hosp italist team HEENT: EOMIs bilaterally, no scleral icterus CV: RRR, No concerning murmurs R: LCTA bilaterally without concerning wheezing, exam limited while patient laying in bed, air movement adequate Ext: wwp, 1-2+ edema bilateral lower extremities Neuro: No focal deficits, no resting tremor Const: Vital Signs, click to edit/add: Vital Signs - 24 hr 10/11/22 09:20 10/11/22 10:30 10/11/22 11:30 Temperature 97.8 F 98.3 F 97.8 F Pulse Rate Pulse Rate [Pulse Oximeter] 86 80 90 Respiratory Rate 20 20 22 Blood Pressure [Le ft Arm] 118/48 L 94/36 L 115/55 L Pulse Oximetry 94 90 94 Oxygen Delivery Me thod Room Air Oxygen Flow Rate 10/11/22 12:31 10/11/22 13:30 10/11/22 14:31 Temperature 98.1 F 98.2 F Pulse Rate 80 Pulse Rate [Pulse Oximeter] 89 90 Respiratory Rate 22 20 Blood Pressure [Le ft Arm] 117/47 L 122/45 L Pulse Oximetry 91 94 Oxygen Delivery Me thod Room Air Room Air Oxygen Flow Rate 10/11/22 14:30 10/11/22 15:47 10/11/22 16:48 Temperature 97.8 F Pulse Rate Pulse Rate [Pulse Oximeter] 79 Respiratory Rate 18 20 Blood Pressure [Le ft Arm] 93/40 L Pulse Oximetry 90 92 91 Oxygen Delivery Me thod Nasal Cannula Nasal Cannula Oxygen Flow Rate 0.5 0.5 10/11/22 15:30 10/11/22 16:30 10/11/22 17:30 Temperature 97.8 F 97.6 F 97.6 F Pulse Rate Pulse Rate [Pulse Oximeter] 76 75 78 Respiratory Rate 18 18 20 Blood Pressure [Le ft Arm] 94/53 L 100/41 L 109/46 L Pulse Oximetry 92 91 93 Oxygen Delivery Me thod Nasal Cannula Nasal Cannula Nasal Cannula Oxygen Flow Rate 0.5 0.5 0.5 10/11/22 18:30 10/11/22 19:00 10/12/22 00:17 Temperature 97.6 F 97.6 F Pulse Rate Pulse Rate [Pulse Oximeter] 75 80 Respiratory Rate 20 22 22 Blood Pressure [Le ft Arm] 92/41 L 113/49 L Pulse Oximetry 92 97 97 Oxygen Delivery Me thod Nasal Cannula Nasal Cannula Nasal Cannula Oxygen Flow Rate 0.5 0.5 0.5 10/12/22 00:19 10/12/22 00:43 10/11/22 23:45 Temperature Pulse Rate Pulse Rate [Pulse Oximeter] 80 80 77 Respiratory Rate 22 Blood Pressure [Le ft Arm] 116/56 L 108/42 L Pulse Oximetry Oxygen Delivery Me thod Oxygen Flow Rate 10/12/22 00:48 10/12/22 01:42 10/12/22 02:35 Temperature Pulse Rate 76 Pulse Rate [Pulse Oximeter] 73 71 Respiratory Rate Blood Pressure [Le ft Arm] 107/52 L 110/50 L Pulse Oximetry Oxygen Delivery Me thod Oxygen Flow Rate 10/12/22 03:05 10/12/22 05:21 10/12/22 03:00 Temperature 97.8 F 97.8 F Pulse Rate Pulse Rate [Pulse Oximeter] 79 79 79 Respiratory Rate 22 18 18 Blood Pressure [Le ft Arm] 154/67 H 126/55 L Pulse Oximetry 99 93 Oxygen Delivery Me thod Room Air Room Air Oxygen Flow Rate 10/12/22 06:22 10/12/22 07:13 10/12/22 07:13 Temperature 97.7 F Pulse Rate Pulse Rate [Pulse Oximeter] 77 Respiratory Rate 20 Blood Pressure [Le ft Arm] 111/53 L Pulse Oximetry 92 96 96 Oxygen Delivery Me thod Room Air Room Air Oxygen Flow Rate 10/12/22 07:13 10/12/22 07:06 Temperature 98.3 F Pulse Rate 97 Pulse Rate [Pulse Oximeter] 98 Respiratory Rate 20 Blood Pressure [Le ft Arm] 143/76 H Pulse Oximetry 96 Oxygen Delivery Me thod Room Air Oxygen Flow Rate Labs Labs: Laboratory Results - last 24 hr 10/11/22 10/11/22 10/11/22 07:19 07:19 11:00 WBC RBC Hgb Hct MCV MCH MCHC RDW Coeff of Stefan Plt Count Neut % (Auto) Lymph % (Auto) [place] % (Auto) Eos % (Auto) Baso % (Auto) Neut # (Auto) Lymph # (Auto) [place] # (Auto) Eos # (Auto) Baso # (Auto) VBG pH 7.229 L* VBG pCO2 42 VBG pO2 27.6 VBG HCO3 18 L Sodium 129 L Potassium 5.3 H Chloride 87 L Carbon Dioxide 15 L BUN 60 H Creatinine 3.4 H Estimated Creat Clear 14.56 Estimated GFR 15 Glucose Cancelled 835 H* 607 H* Hemoglobin A1c Lactate 6.2 H* Calcium 8.2 L Ionized Calcium [place]abel[place] Phosphorus Magnesium Total Bilirubin AST ALT Alkaline Phosphatase Lactate Baseline Total Protein Albumin Procalcitonin 10/11/22 10/11/22 10/11/22 13:30 17:30 22:00 WBC 9.87 RBC 3.21 L Hgb 9.3 L Hct 28.4 L MCV 89 MCH 29 MCHC 33 RDW Coeff of Stefan 13.5 Plt Count 286 Neut % (Auto) 80.5 H Lymph % (Auto) 11.3 L [place] % (Auto) 7.8 Eos % (Auto) 0.1 Baso % (Auto) 0.1 Neut # (Auto) 7.90 H Lymph # (Auto) 1.10 [place] # (Auto) 0.80 Eos # (Auto) 0.01 Baso # (Auto) 0.01 VBG pH 7.400 7.396 VBG pCO2 45 50 VBG pO2 55.9 H 48.7 H VBG HCO3 28 31 H Sodium 131 L 134 L 132 L Potassium 4.1 4.0 4.5 Chloride 94 L 99 97 Carbon Dioxide 29 30 30 BUN 62 H 59 H 59 H Creatinine 3.2 H 3.3 H 3.2 H Estimated Creat Clear 15.47 15.00 15.47 Estimated GFR 16 15 16 Glucose 436 H* 142 H 287 H Hemoglobin A1c Lactate 2.4 H Calcium 7.8 L 7.8 L 7.9 L Ionized Calcium [place] Phosphorus 3.2 Magnesium Total Bilirubin AST ALT Alkaline Phosphatase Lactate Baseline Total Protein Albumin Procalcitonin 13.50 H 10/11/22 10/12/22 22:01 04:20 WBC 10.12 RBC 3.39 L Hgb 9.9 L Hct 29.9 L MCV 88 MCH 29 MCHC 33 RDW Coeff of Stefan 13.6 Plt Count 257 Neut % (Auto) 68.2 Lymph % (Auto) 18.9 L [place] % (Auto) 10.6 Eos % (Auto) 1.9 Baso % (Auto) 0.1 Neut # (Auto) 6.91 Lymph # (Auto) 1.90 [place] # (Auto) 1.10 H Eos # (Auto) 0.19 Baso # (Auto) 0.01 VBG pH 7.359 7.371 VBG pCO2 53 H 50 VBG pO2 41.3 44.1 VBG HCO3 30 H 29 H Sodium 133 L Potassium 4.2 Chloride 100 Carbon Dioxide 27 BUN 57 H Creatinine 3.2 H Estimated Creat Clear 15.47 Estimated GFR 16 Glucose 175 H Hemoglobin A1c 10.12 H Lactate 0.9 Calcium 8.2 L Ionized Calcium [place] 1.13 Phosphorus 2.8 Magnesium 1.9 Total Bilirubin 0.4 AST 37 H ALT 20 Alkaline Phosphatase 128 Lactate Baseline 0.9 Total Protein 6.1 Albumin 3.0 L Procalcitonin
--- NOTE | 2022-10-12 10:15 | CRLHL7_ITS ---
For Patients: As a result of the Century Cures Act, medical imaging exams and procedure reports are released immediately into your electronic medical record. You may view this report before your referring provider. If you have questions, please contact your health care provider. INDICATION: Acute kidney injury TECHNIQUE: Ultrasound renal and bladder complete. Villegas-scale and color Doppler sonographic images were acquired of the kidneys and urinary bladder. COMPARISON: None FINDINGS: Right Kidney: Size: 8.7 x 3.5 x 4.7 centimeters. Normal echogenicity without hydronephrosis. No masses or nephrolithiasis seen. Simple 12 millimeter cyst at the mid right kidney. Left Kidney: Left kidney is poorly defined. This is not well seen due to the patient`s body habitus. The left kidney may be a significantly enlarged, however the margins are somewhat uncertain on this exam. IMPRESSION: 1. Essentially unremarkable sonographic appearance of the right kidney with a simple 12 millimeter cyst. 2. Poor definition of the left kidney. There may be some left renal enlargement, however this is poorly seen due to the patient`s body habitus. Suggest CT abdomen/pelvis for better definition of the left kidney. Dictated by Mc Greene MD @ 10/12/2022 12:50:25 PM (Electronically Signed)
[2022-10-12 10:53] LABS: Bacteria Urine Few; Squamous Epithelial Cell Urine Few (None-Few); WBC Urine 25-50 (0-5)
[2022-10-12] MEDS: LACTATED RINGERS 1000 ML 500 ML IV (12:50)
[2022-10-12 14:02] LABS: HCO3 VBG 23 mmol/L (21-28); Lactate* 2.2 mmol/L (0.5-1.9); PCO2 VBG 39 mmHG (40-50); PO2 VBG 85.9 mmHG (25-47); pH VBG 7.365 (7.32-7.43)
[2022-10-12 14:23] LABS: Chloride* 101 mmol/L (96-114); Potassium* 4.8 mmol/L (3.6-5.1); Sodium* 132 mmol/L (135-149)
[2022-10-12 14:26] LABS: Carbon Dioxide* 21 mmol/L (20-32); Estimated Glomerular Filt Rate 17 ml/min
[2022-10-12 14:27] LABS: Blood Urea Nitrogen* 56 mg/dL (7-30); Calcium* 7.9 mg/dL (8.4-10.6); Glucose* 347 mg/dL (60-115)
--- NOTE | 2022-10-12 15:03 | PC.SOCIAL ---
Social work: Received call from pt's [employer] Recruiter, Isis (phone [phone], fax [phone]) providing information on the CADI waver services pt is currently receiving through [facility]. CADI worker, Kapil Christianson [phone]. Pt is receiving alf home care from [facility] weekly, [facility] aid x3 per week. PCS services are provided through [facility]. Pt receives home delivered meals through [facility] [employer]. Healthcare Recruiter requested discharge instructions be sent to her as she will follow up with pt after discharge.
--- NOTE | 2022-10-12 16:00 | NUTR.NU ---
RDN with MD consult for diabetic diet education. RDN attempt x4 to visit with patient, however patient was not appropriate to visit on any attempt. RDN will attempt to visit at a later date.
[2022-10-12] MEDS: ATORVASTATIN 10 MG TABLET 20 MG PO (17:38)
[2022-10-12] MEDS: 0.9 % SODIUM CHLORIDE 250 ml IV (17:40)
[2022-10-12] MEDS: ENOXAPARIN 30 MG/0.3ML INJ SUBCUT (20:25)
[2022-10-12] MEDS: 5 % DEX/0.45 SOD CHL+KCL20 mEq 1,000 ML 75 ML IV (20:25)
[2022-10-13] VITALS (13 sets, daily range): BP systolic 119–159; BP diastolic 50–79; PULSE 76–90; RESP 16–20; TEMP 36.2–36.8; O2SAT 90–97
[2022-10-13] MEDS: PIPERACILLIN/TAZOBACTAM 2.25 GM in 0.9 % SODIUM CHLORIDE Mini-bag 100 ML IVPB ×2 (00:16→05:55)
[2022-10-13] MEDS: SODIUM CHLORIDE 0.9 % (FLUSH) 10 ML SYRINGE 5 ML IVF ×4 (00:17→21:01)
[2022-10-13] MEDS: HEPARIN 500 UNIT/5 ML SYRINGE IVF ×4 (05:34→18:25)
[2022-10-13 05:39] LABS: HCO3 VBG 28 mmol/L (21-28); Ionized Calcium* 1.16 mmol/L (1.11-1.30); PCO2 VBG 48 mmHG (40-50); PO2 VBG 43.7 mmHG (25-47)
[2022-10-13 05:40] LABS: Basophils Absolute Auto 0.02 K/uL (0.00-0.30); Basophils Percent Auto 0.3 % (0.0-3.0); Eosinophils Absolute Auto 0.31 K/uL (0.00-0.50); Eosinophils Percent Auto 3.9 % (0.0-7.0); Hematocrit 28.3 % (33.0-51.0); Hemoglobin* 9.1 gm/dL (12.0-16.0); Immature Granulocytes Abs Auto 0.01 K/uL (0.00-0.30); Immature Granulocytes Pct Auto 0.1 %; Lactate* 1.2 mmol/L (0.5-1.9); Mean Corpuscular HGB Conc 32 gm/dL (32-36); Mean Corpuscular Hemoglobin 29 pg (26-34); Mean Corpuscular Volume 90 fL (80-100); Monocytes Percent Auto 7.3 % (0.0-11.0); Neutrophils Percent Auto 70.4 % (42.0-72.0); Platelet Count* 205 K/uL (140-440); RDW Coefficient of Variation % 14.3 % (11.5-15.5); Red Blood Count 3.14 m/uL (4.00-5.20); Slide Review Reflex No; White Blood Count* 7.95 K/uL (4.50-11.00)
--- NOTE | 2022-10-13 05:40 | PC.NURSE ---
[id number] Pt pleasant and cooperaitve, slept on and off during night, BG consistently in the 300's during shift, asymptomatic. pivont transfer x1 to [facility] with 2assistedgardo GB. tolerated activity fair. 1LPM O2 needed during the night to maintain sats >90% while sleeping, pt desats to 70's on RA occasionally while asleep. denies pain, SOB, chest pain, N/V, lightheaded or dizziness. repo pt throughout shift.
[2022-10-13 05:54] LABS: Chloride* 102 mmol/L (96-114); Potassium* 4.8 mmol/L (3.6-5.1); Sodium* 133 mmol/L (135-149)
[2022-10-13 05:56] LABS: Bilirubin Total* 0.4 mg/dL (0.1-1.5); Carbon Dioxide* 27 mmol/L (20-32); Creatinine* 2.4 mg/dL (0.5-1.5); Est. Creatinine Clearance* 20.62; Estimated Glomerular Filt Rate 23 ml/min
[2022-10-13 05:57] LABS: Alanine Aminotransferase* 30 U/L (4-35); Alkaline Phosphatase* 120 U/L (40-150); Aspartate Amino Transferase* 53 U/L (12-35); Blood Urea Nitrogen* 47 mg/dL (7-30); Calcium* 8.2 mg/dL (8.4-10.6); Phosphorus* 3.4 mg/dL (2.5-4.5); Total Protein* 6.2 g/dL (6.0-8.3)
[2022-10-13 06:02] LABS: Glucose* 393 mg/dL (60-115)
[2022-10-13] MEDS: OMEPRAZOLE 20 MG CAPSULE DR PO (06:35)
--- NOTE | 2022-10-13 07:17 | P.IMPN_ITS ---
Progress Note: A&P Assessment and plan (1) Sepsis: Problem details: - presumed given UTI, hypotension, tachycardia - On Zosyn and IVFs, has not required pressors for BP support Status: Acute (2) Acute kidney injury: Problem details: - + hyperphosphatemia and hyperkalemia on admission (resolved on 10/12) - ddx: intrarenal from infectious process, DM1, nephrotic syndrome - aggressive fluid resuscitation with boluses as needed - renal ultrasound exhibits no acute abnormality 10/12, urine studies P - holding Losartan and Torsemide on admission Status: Acute (3) DKA, type 1: Problem details: - UTI likely trigger - transition off of insulin gtt 10/12, start po intake and sliding scale insulin - VBG normalized 10/12 - A1C up to 10 +(previously <8) and remains hyperglycemic off of gtt; will increase Lantus 10/13, continue mealtime insulin and SS Status: Acute (4) UTI (urinary tract infection): Problem details: - Ceftriaxone broadened to Zosyn 10/11, urine culture growing pino-sensitive E Coli - given improvement on 10/13, will transition back to ceftriaxone Status: Acute (5) Hypertension: Problem details: - hypotensive on admission 10/11 so home medications held - BP increasing 10/13, will restart Metoprolol and Amlodipine, holding Torsemide and Losartan / FIORELLA Status: Acute (6) Acute respiratory failure with hypoxia: Problem details: - intermittent hypoxia with movement and sleep, likely combination of URIAH, acute illness, fluid resuscitation - will follow CXR 10/13 Status: Acute (7) Congestive heart failure (CHF): Problem details: - TTE obtained 10/12: Final Impressions: 1. Technically limited exam. 2. Normal LV size, borderline wall thickness, normal global systolic function with an estimated EF of 60 - 65%. 3. Right ventricular cavity size is normal, global systolic RV function is normal. 4. No significant valve disease detected. Status: Acute Plan - per above - continue close monitoring of renal function, electrolytes, blood sugars - move to floor status today - may need SNF placement when medically stable Subjective Date Seen: 10/13/22 Interval history: No acute events overnight. Kati sleepy but arousable, denies any needs for me this morning. Creatinine improving, now down to 2.4. No acute findings on renal ultrasound. TTE findings below Tolerating IV Zosyn. Pansensitive E Coli on UCx, BCx from admission remains NGTD. Therapies following. Final Impressions: 1. Technically limited exam. 2. Normal LV size, borderline wall thickness, normal global systolic function with an estimated EF of 60 - 65%. 3. Right ventricular cavity size is normal, global systolic RV function is normal. 4. No significant valve disease detected. Exam Narrative: Exam Narrative: GEN: Sleepy but arousable, laying comfortably in bed when I see her this mor demarcus HEENT: EOMIs bilaterally, no scleral icterus CV: RRR, soft systolic murmur without concerning features R: Lung sounds decreased bilateral bases Ext: + edema bilateral lower extremities, wearing SCDs Skin: No concerning skin lesions or rashes on exposed skin Neuro: No focal deficits on limited neurologic exam Const: Vital Signs, click to edit/add: Vital Signs - 24 hr 10/12/22 09:24 10/12/22 11:31 10/12/22 14:06 Temperature 97.3 F L 98.1 F 99.0 F Pulse Rate Pulse Rate [Pulse Oximeter] 79 92 91 Respiratory Rate 18 20 20 Blood Pressure [Le ft Arm] 119/55 L 106/46 L 145/54 H Pulse Oximetry 93 94 94 [facility] Room Air Room Air Oxygen Flow Rate 10/12/22 16:18 10/12/22 16:08 10/12/22 15:38 Temperature 98.6 F Pulse Rate 88 Pulse Rate [Pulse Oximeter] 86 Respiratory Rate 20 Blood Pressure [Le ft Arm] 136/43 L Pulse Oximetry 92 92 [facility] Room Air Oxygen Flow Rate 10/12/22 18:31 10/12/22 19:00 10/12/22 20:00 Temperature 98.5 F 98.6 F Pulse Rate Pulse Rate [Pulse Oximeter] 93 100 100 Respiratory Rate 18 18 Blood Pressure [Le ft Arm] 111/45 L 131/47 L Pulse Oximetry 95 95 [facility] Room Air Oxygen Flow Rate 10/12/22 21:00 10/12/22 23:00 10/12/22 23:00 Temperature 98.5 F 98.2 F Pulse Rate Pulse Rate [Pulse Oximeter] 92 90 Respiratory Rate 18 16 16 Blood Pressure [Le ft Arm] 131/48 L 179/64 H Pulse Oximetry 92 97 97 Oxygen Delivery Me thod Room Air Room Air Room Air Oxygen Flow Rate 10/12/22 23:51 10/13/22 00:00 10/13/22 01:00 Temperature 98.1 F Pulse Rate 85 Pulse Rate [Pulse Oximeter] 90 86 Respiratory Rate 16 Blood Pressure [Le ft Arm] 151/54 H Pulse Oximetry 90 Oxygen Delivery Me thod Room Air Oxygen Flow Rate 10/13/22 03:00 10/13/22 05:00 Temperature 98.1 F 98.3 F Pulse Rate Pulse Rate [Pulse Oximeter] 84 80 Respiratory Rate 18 18 Blood Pressure [Le ft Arm] 129/56 L 156/79 H Pulse Oximetry 91 93 Oxygen Delivery Me thod Room Air Nasal Cannula Oxygen Flow Rate 1 Labs Labs: Laboratory Results - last 24 hr 10/12/22 10/12/22 10/13/22 10:21 13:53 05:30 WBC 7.95 RBC 3.14 L Hgb 9.1 L Hct 28.3 L MCV 90 MCH 29 MCHC 32 RDW Coeff of Stefan 14.3 Plt Count 205 Neut % (Auto) 70.4 Lymph % (Auto) 18.0 L [place] % (Auto) 7.3 Eos % (Auto) 3.9 Baso % (Auto) 0.3 Neut # (Auto) 5.60 Lymph # (Auto) 1.40 [place] # (Auto) 0.60 Eos # (Auto) 0.31 Baso # (Auto) 0.02 VBG pH 7.365 7.370 VBG pCO2 39 L 48 VBG pO2 85.9 H 43.7 VBG HCO3 23 28 Sodium 132 L 133 L Potassium 4.8 4.8 Chloride 101 102 Carbon Dioxide 21 27 BUN 56 H 47 H Creatinine 3.0 H 2.4 H Estimated Creat Clear 16.50 20.62 Estimated GFR 17 23 Glucose 347 H 393 H* Lactate 2.2 H 1.2 Calcium 7.9 L 8.2 L Ionized Calcium [place]abel[place] 1.16 Phosphorus 3.4 Magnesium 2.0 Total Bilirubin 0.4 AST 53 H ALT 30 Alkaline Phosphatase 120 Total Protein 6.2 Albumin 3.0 L Urine RBC 5-10 A Urine WBC 25-50 A Ur Squamous Epith Cells Few Urine Bacteria Few A
[2022-10-13] MEDS: DULOXETINE 30 MG CAPSULE DR 60 MG PO (08:25)
[2022-10-13] MEDS: CETIRIZINE HCL 10 MG TABLET 5 MG PO (08:25)
[2022-10-13] MEDS: CYANOCOBALAMIN (VITAMIN B-12) 500 MCG TABLET PO (08:26)
[2022-10-13] MEDS: 5 % DEX/0.45 SOD CHL+KCL20 mEq 1,000 ML 75 ML IV (09:29)
[2022-10-13] MEDS: METOPROLOL SUCCINATE (XL) 25 MG TAB PO (10:37)
[2022-10-13] MEDS: cefTRIAXone 1 GM in 0.9 % SODIUM CHLORIDE Mini-bag 100 ML IVPB (10:37)
[2022-10-13] MEDS: AMLODIPINE 5 MG TABLET 2.5 MG PO ×2 (10:37→20:52)
--- NOTE | 2022-10-13 10:52 | CRLHL7_ITS ---
For Patients: As a result of the Century Cures Act, medical imaging exams and procedure reports are released immediately into your electronic medical record. You may view this report before your referring provider. If you have questions, please contact your health care provider. INDICATION: Hypoxia COMPARISON: October 11, 2022 at 10:04 a.m. TECHNIQUE: Single-view portable chest radiograph October 13, 2022 at 11:19 a.m. FINDINGS: TUBES AND LINES: Right IJ catheter ending in the SVC HEART AND MEDIASTINUM: The heart size is normal. The mediastinal contour appears normal for patient age. LUNGS AND PLEURAL SPACES: Vascular and interstitial prominence progressive since the prior study. No pleural effusion or pneumothorax OSSEOUS STRUCTURES: Age-appropriate appearance. No acute focal finding.Bilateral shoulder arthroplasties IMPRESSION: Vascular and interstitial prominence progressive since the prior study. Favor CHF/pulmonary edema over a diffuse inflammatory process. Dictated by Francisco Toro MD @ 10/13/2022 12:09:24 PM (Electronically Signed)
--- NOTE | 2022-10-13 14:09 | NUTR.NU ---
RDN with MD consult for diabetic teaching. Patient admitted to hospital for DKA. A1C 10/12/2022 10.12%. RDN visited with patient whom reported visiting a Commutator Repairer about 1 year ago. She reports doing well with her diet at home, however she thinks she can do better. She agreed to received diet education related to diabetes without designated caregiver present. Discussed basics of carbohydrate counting including sources of carbohydrates, serving sizes, and label reading. Discussed using the plate method for carbohydrate-controlled, balanced meals that include ? plate non-starchy vegetables, ? plate protein, and 3-4 servings of carbohydrates per meal (fruit, whole grains, legumes, milk, yogurt) and 1-2 per snack. Handouts provided to support discussion. RDN contact information provided and encouraged patient to call with questions. RDN to follow up as needed.
[2022-10-13] MEDS: ATORVASTATIN 10 MG TABLET 20 MG PO (18:16)
--- NOTE | 2022-10-13 19:53 | PC.NURSE ---
End of shift note: Pt alert and oriented to questions but forgetful/inaccurate remarks occasionally, such as there was 2 beds in this room, they took one out. Vitals stable, on RA. Up w/ Ax2 w/ walker to bedside commode for moderate loose BM. Snow remains in place, adequate output. Denies pain. Tolerating diet. SSI admin per order for blood sugars. Fluids dc'd this shift and IJ heparin locked per order. Pt pleasant, continues on tele NSR. Has call light within reach and uses appropriately.
[2022-10-13] MEDS: ENOXAPARIN 30 MG/0.3ML INJ SUBCUT (20:52)
[2022-10-14] VITALS (8 sets, daily range): BP systolic 144–168; BP diastolic 72–83; PULSE 75–96; RESP 16–20; TEMP 36.4–36.6; O2SAT 90–96
[2022-10-14] MEDS: HEPARIN 500 UNIT/5 ML SYRINGE IVF ×4 (05:51→17:55)
[2022-10-14] MEDS: SODIUM CHLORIDE 0.9 % (FLUSH) 10 ML SYRINGE 5 ML IVF ×5 (05:51→17:57)
[2022-10-14] MEDS: OMEPRAZOLE 20 MG CAPSULE DR PO (05:54)
--- NOTE | 2022-10-14 06:32 | PC.NURSE ---
23-: Blood sugar front end architect was 100, just t&r tolerated well, c/o some generalized pain this morning, rested well, no issues overnight, vss on ra.
[2022-10-14 06:39] LABS: HCO3 VBG 31 mmol/L (21-28); PCO2 VBG 52 mmHG (40-50); PO2 VBG 52.9 mmHG (25-47)
[2022-10-14 06:46] LABS: Basophils Absolute Auto 0.02 K/uL (0.00-0.30); Basophils Percent Auto 0.3 % (0.0-3.0); Eosinophils Absolute Auto 0.42 K/uL (0.00-0.50); Eosinophils Percent Auto 6.7 % (0.0-7.0); Hematocrit 29.2 % (33.0-51.0); Hemoglobin* 9.3 gm/dL (12.0-16.0); Immature Granulocytes Abs Auto 0.01 K/uL (0.00-0.30); Immature Granulocytes Pct Auto 0.2 %; Lymphocytes Percent Auto 17.3 % (20-44); Mean Corpuscular HGB Conc 32 gm/dL (32-36); Mean Corpuscular Hemoglobin 29 pg (26-34); Mean Corpuscular Volume 92 fL (80-100); Monocytes Percent Auto 7.2 % (0.0-11.0); Neutrophils Percent Auto 68.3 % (42.0-72.0); Platelet Count* 185 K/uL (140-440); RDW Coefficient of Variation % 14.4 % (11.5-15.5); Red Blood Count 3.19 m/uL (4.00-5.20); White Blood Count* 6.29 K/uL (4.50-11.00)
[2022-10-14 06:59] LABS: Chloride* 109 mmol/L (96-114)
[2022-10-14 07:00] LABS: Albumin* 3.1 g/dL (3.3-5.0); Sodium* 141 mmol/L (135-149)
[2022-10-14 07:03] LABS: Bilirubin Total* 0.3 mg/dL (0.1-1.5); Creatinine* 1.5 mg/dL (0.5-1.5); Est. Creatinine Clearance* 32.99; Estimated Glomerular Filt Rate 40 ml/min
[2022-10-14 07:04] LABS: Alanine Aminotransferase* 39 U/L (4-35); Alkaline Phosphatase* 130 U/L (40-150); Aspartate Amino Transferase* 74 U/L (12-35); Blood Urea Nitrogen* 30 mg/dL (7-30); Calcium* 8.6 mg/dL (8.4-10.6); Carbon Dioxide* 32 mmol/L (20-32); Glucose* 82 mg/dL (60-115); Magnesium* 2.2 mg/dL (1.5-2.6); Total Protein* 6.4 g/dL (6.0-8.3)
[2022-10-14 07:06] LABS: C Reactive Protein* 2.6 mg/dL (0.5-1.0)
[2022-10-14 07:20] LABS: Procalcitonin* 4.96 ng/mL (<0.50)
[2022-10-14] MEDS: OXYCODONE 5 MG TABLET PO ×2 (07:46→22:42)
[2022-10-14] MEDS: CETIRIZINE HCL 10 MG TABLET 5 MG PO (08:28)
[2022-10-14] MEDS: CYANOCOBALAMIN (VITAMIN B-12) 500 MCG TABLET PO (08:29)
[2022-10-14] MEDS: METOPROLOL SUCCINATE (XL) 25 MG TAB PO (08:29)
[2022-10-14] MEDS: DULOXETINE 30 MG CAPSULE DR 60 MG PO (08:29)
[2022-10-14] MEDS: AMLODIPINE 5 MG TABLET 2.5 MG PO ×2 (08:30→21:26)
[2022-10-14 08:32] LABS: Slide Review Reflex No
--- NOTE | 2022-10-14 09:16 | PM.IMPN1 ---
Progress Note: A&P Assessment and plan (1) DKA, type 1: Problem details: - UTI likely trigger - transition off of insulin gtt 10/12, start po intake and sliding scale insulin - VBG normalized 10/12 - A1C up to 10 +(previously <8); increased Lantus 10/13, continue mealtime insulin and SS Status: Acute (2) Sepsis: Problem details: - presumed given UTI, hypotension, tachycardia on admission - patient significantly improved on hospital day 3; BP at baseline and home medications restarted - U CX + for pansensitive E Coli, negative Blood Cultures Status: Acute (3) Acute kidney injury: Problem details: - + hyperphosphatemia and hyperkalemia on admission (resolved on 10/12) - ddx: intrarenal from infectious process, DM1, nephrotic syndrome - aggressive fluid resuscitation with boluses as needed - renal ultrasound exhibits no acute abnormality 10/12 - holding Losartan and Torsemide on admission - renal function back to baseline on 10/14 Status: Acute (4) UTI (urinary tract infection): Problem details: - Ceftriaxone broadened to Zosyn 10/11, urine culture growing pino-sensitive E Coli - given improvement, transitioned back to Ceftriaxone on 10/13, to oral Cipro on 10/14 Status: Acute (5) Hypertension: Problem details: - hypotensive on admission 10/11 so home medications held - BP increasing 10/13, will restart Metoprolol and Amlodipine - held Torsemide and Losartan on admission 2/2 FIORELLA, both restarted 10/14 Status: Acute (6) Acute respiratory failure with hypoxia: Problem details: - intermittent hypoxia with movement and sleep, likely combination of URIAH, acute illness, fluid resuscitation - improved on home dose of diuretics Status: Acute (7) Congestive heart failure (CHF): Problem details: - TTE obtained 10/12: Final Impressions: 1. Technically limited exam. 2. Normal LV size, borderline wall thickness, normal global systolic function with an estimated EF of 60 - 65%. 3. Right ventricular cavity size is normal, global systolic RV function is normal. 4. No significant valve disease detected. Status: Acute (8) Weakness: Problem details: - 2/2 acute illness, therapies following - SNF stay recommended. Patient is declining at this juncture and plans to go home with home health and family support when medically stable Status: Acute Plan - per above - home with HH when medically stable Subjective Date Seen: 10/14/22 Interval history: No acute events overnight. Kati has woken up and is significantly improved; tolerating p.o. intake and therapies. SNF stay recommended, patient declining at this time. She has no concerns for hospitalist. Exam Narrative: Exam Narrative: GEN: Alert and oriented, sitting comfortably in bedside chair and eating breakfast HEENT: EOMIs bilaterally, no scleral icterus CV: RRR R: LCTA bilaterally without concerning wheezing, decreased sounds bilateral bases but air movement adequate Ext: 2+ edema BLE, symmetric Skin: No concerning skin lesions or rashes on exposed skin Neuro: No focal deficits Psych: Appropriate Const: Vital Signs, click to edit/add: Vital Signs - 24 hr 10/13/22 09:41 10/13/22 11:46 10/13/22 15:00 Temperature 97.5 F L 98.2 F Pulse Rate 77 Pulse Rate [Pulse Oximeter] 79 76 Respiratory Rate 20 20 Blood Pressure [Le ft Arm] Blood Pressure [Ri ght Arm] 159/67 H 150/52 H Pulse Oximetry 97 93 Oxygen Delivery Me thod Nasal Cannula Room Air Oxygen Flow Rate 1 10/13/22 15:00 10/13/22 15:00 10/13/22 16:00 Temperature 98.0 F Pulse Rate Pulse Rate [Pulse Oximeter] 77 78 Respiratory Rate 20 18 16 Blood Pressure [Le ft Arm] Blood Pressure [Ri ght Arm] 119/60 Pulse Oximetry 93 92 Oxygen Delivery Me thod Room Air Room Air Oxygen Flow Rate 10/13/22 20:00 10/13/22 23:27 10/13/22 23:27 Temperature 97.2 F L Pulse Rate Pulse Rate [Pulse Oximeter] 88 88 Respiratory Rate 20 20 20 Blood Pressure [Le ft Arm] 135/50 L Blood Pressure [Ri ght Arm] Pulse Oximetry 93 93 Oxygen Delivery Me thod Room Air Room Air Oxygen Flow Rate 1 10/13/22 23:32 10/14/22 02:59 10/14/22 08:00 Temperature 98 F 97.9 F 97.5 F L Pulse Rate Pulse Rate [Pulse Oximeter] 83 81 78 Respiratory Rate 20 20 18 Blood Pressure [Le ft Arm] Blood Pressure [Ri ght Arm] 152/62 H 144/83 H 158/74 H Pulse Oximetry 92 92 92 Oxygen Delivery Me thod Room Air Room Air Room Air Oxygen Flow Rate 0 0 Labs Labs: Laboratory Results - last 24 hr 10/13/22 10/14/22 05:30 06:15 WBC 6.29 RBC 3.19 L Hgb 9.3 L Hct 29.2 L MCV 92 MCH 29 MCHC 32 RDW Coeff of Stefan 14.4 Plt Count 185 Neut % (Auto) 68.3 Lymph % (Auto) 17.3 L [place] % (Auto) 7.2 Eos % (Auto) 6.7 Baso % (Auto) 0.3 Neut # (Auto) 4.30 Lymph # (Auto) 1.10 [place] # (Auto) 0.50 Eos # (Auto) 0.42 Baso # (Auto) 0.02 Diff Slide Review Not Reportable VBG pH 7.380 VBG pCO2 52 H VBG pO2 52.9 H VBG HCO3 31 H Sodium 141 Potassium 4.0 Chloride 109 Carbon Dioxide 32 BUN 30 Creatinine 1.5 Estimated Creat Clear 32.99 Estimated GFR 40 Glucose 82 Calcium 8.6 Magnesium 2.2 Total Bilirubin 0.3 AST 74 H ALT 39 H Alkaline Phosphatase 130 C-Reactive Protein 2.6 H Total Protein 6.4 Albumin 3.1 L Procalcitonin 4.96 H TSH 1.520
[2022-10-14] MEDS: TORSEMIDE 20 MG TABLET 40 MG PO (12:12)
[2022-10-14] MEDS: ATORVASTATIN 10 MG TABLET 20 MG PO (17:50)
--- NOTE | 2022-10-14 18:49 | PC.NURSE ---
Alert and oriented x 3, headache pain reported at 7/10, administered PRN oxycodone at 0800 with effective results. Lung sounds clear, bowels active x 4 quadrants. patient had 2 loose incontinent stools and 2 continent loose stools, MD updated and new orders for stool samples for c-diff and stool cultures. Snow catheter discontinued at 1500, patient voided x 4 after removal. Appetite poor, at 50% of breakfast and lunch and had 1/2 bowl of soup at dinner. Right AC IV infiltrated and was discontinued. IJ line patent, flushed without difficulty. Transferred with SBA x 1 with gait belt and walker.
[2022-10-14 21:25] LABS: C.Difficile Negative (Negative); CDIFFEPI 027 PRESUMPTIVE NEGATIVE (Negative)
[2022-10-14] MEDS: CIPROFLOXACIN 250 MG TABLET PO (21:26)
[2022-10-14] MEDS: ENOXAPARIN 30 MG/0.3ML INJ SUBCUT (21:27)
[2022-10-15] VITALS: BP 145/85; PULSE 96; RESP 18; TEMP 36.7; O2SAT 92
[2022-10-15] MEDS: ACETAMINOPHEN 325 MG TABLET 975 MG PO (00:54)
[2022-10-15] MEDS: LOPERAMIDE HCL 2 MG CAPSULE PO ×2 (00:55→11:25)
[2022-10-15 04:10] VITALS: BP 130/66; PULSE 79; RESP 18; TEMP 36.3; O2SAT 90
[2022-10-15] MEDS: HEPARIN 500 UNIT/5 ML SYRINGE IVF (06:23)
[2022-10-15] MEDS: OMEPRAZOLE 20 MG CAPSULE DR PO (06:25)
[2022-10-15] MEDS: SODIUM CHLORIDE 0.9 % (FLUSH) 10 ML SYRINGE 5 ML IVF (06:25)
[2022-10-15 06:55] LABS: HCO3 VBG 34 mmol/L (21-28); PCO2 VBG 49 mmHG (40-50); PO2 VBG 37.8 mmHG (25-47)
--- NOTE | 2022-10-15 06:56 | PC.NURSE ---
Pt alert and oriented x3. Afebrile. Pt reports 7/10 pain in hands, right knee and back, pain managed with PRN medications. Pt denies chest pain, SOB, and N/V. Pt is voiding, tolerating a regular diet, up A1 with walker and gait belt. Pt slept throughout most of night.???
[2022-10-15 07:00] VITALS: PULSE 76; RESP 20; O2SAT 94
[2022-10-15 07:12] LABS: Basophils Absolute Auto 0.02 K/uL (0.00-0.30); Basophils Percent Auto 0.3 % (0.0-3.0); Eosinophils Absolute Auto 0.21 K/uL (0.00-0.50); Eosinophils Percent Auto 2.7 % (0.0-7.0); Hematocrit 32.5 % (33.0-51.0); Hemoglobin* 10.6 gm/dL (12.0-16.0); Immature Granulocytes Abs Auto 0.02 K/uL (0.00-0.30); Immature Granulocytes Pct Auto 0.3 %; Lymphocytes Percent Auto 13.5 % (20-44); Mean Corpuscular HGB Conc 33 gm/dL (32-36); Mean Corpuscular Hemoglobin 30 pg (26-34); Mean Corpuscular Volume 91 fL (80-100); Monocytes Percent Auto 6.3 % (0.0-11.0); Neutrophils Percent Auto 76.9 % (42.0-72.0); Platelet Count* 196 K/uL (140-440); RDW Coefficient of Variation % 14.3 % (11.5-15.5); Red Blood Count 3.59 m/uL (4.00-5.20); White Blood Count* 7.73 K/uL (4.50-11.00)
[2022-10-15 07:13] LABS: Slide Review Reflex No
[2022-10-15 07:24] LABS: Albumin* 3.7 g/dL (3.3-5.0); Chloride* 101 mmol/L (96-114); Potassium* 3.6 mmol/L (3.6-5.1); Sodium* 139 mmol/L (135-149)
[2022-10-15 07:26] LABS: Creatinine* 1.3 mg/dL (0.5-1.5); Est. Creatinine Clearance* 38.07; Estimated Glomerular Filt Rate 47 ml/min
[2022-10-15 07:27] LABS: Alanine Aminotransferase* 38 U/L (4-35); Alkaline Phosphatase* 158 U/L (40-150); Aspartate Amino Transferase* 49 U/L (12-35); Bilirubin Total* 0.6 mg/dL (0.1-1.5); Blood Urea Nitrogen* 23 mg/dL (7-30); Carbon Dioxide* 33 mmol/L (20-32); Glucose* 130 mg/dL (60-115); Total Protein* 7.4 g/dL (6.0-8.3)
[2022-10-15 08:00] VITALS: BP 128/62; PULSE 76; RESP 20; TEMP 36.9; O2SAT 94
[2022-10-15] MEDS: AMLODIPINE 5 MG TABLET 2.5 MG PO (09:05)
[2022-10-15] MEDS: CETIRIZINE HCL 10 MG TABLET 5 MG PO (09:05)
[2022-10-15] MEDS: LOSARTAN POTASSIUM 50 MG TABLET 12.5 MG PO (09:06)
[2022-10-15] MEDS: METOPROLOL SUCCINATE (XL) 25 MG TAB PO (09:06)
[2022-10-15] MEDS: CYANOCOBALAMIN (VITAMIN B-12) 500 MCG TABLET PO (09:06)
[2022-10-15] MEDS: CIPROFLOXACIN 250 MG TABLET PO (09:06)
[2022-10-15] MEDS: DULOXETINE 30 MG CAPSULE DR 60 MG PO (09:06)
[2022-10-15] MEDS: OXYCODONE 5 MG TABLET PO (09:07)
[2022-10-15] MEDS: TORSEMIDE 20 MG TABLET 40 MG PO (09:07)
[2022-10-15 12:00] VITALS: BP 137/75; PULSE 77; RESP 18; TEMP 36.8; O2SAT 91
--- NOTE | 2022-10-15 13:58 | PM.DS1 ---
DS: Providers Provider Date Seen: 10/15/22 Date of admission: 10/11/22 08:02 Primary care physician: Shania Montiel MD Admitting Clinician: Saritha Gamez MD Attending Physician on discharge: Saritha Gamez MD Date of Discharge: 10/15/22 DS: Diagnosis Discharge Diagnosis (1) DKA, type 1: Status: Acute Problem details: 61-year-old female admitted to the hospital with hyperglycemia and altered level of consciousness. The time of admission she had a blood sugar of 1326. Associated other lab abnormalities were lactate of 8.4 phosphorus of 9.5 and potassium of 6.9 and creatinine of 3.5. There was concern over sepsis at time of admission. She responded well to treatment of her problems with hyperglycemia, fluid and electrolytes. (2) UTI (urinary tract infection): Status: Acute Problem details: She was found to have of urine culture with pansensitive E coli. Subsequently treated with ciprofloxacin. This will be continued as an outpatient for 3 more days of Cipro at 250 mg. b.i.d. (3) Acute respiratory failure with hypoxia: Status: Acute Problem details: Had hypoxia early in the hospital stay thought to be due to a combination of factors including sleep apnea and fluid resuscitation with volume overload. No longer needing supplemental oxygen. (4) Acute kidney injury: Status: Acute Problem details: Had acute kidney injury related to hyperglycemia and dehydration. Lab evaluation as noted above. Improved back to baseline. (5) Sepsis: Status: Acute Problem details: - presumed given UTI, hypotension, tachycardia on admission - patient significantly improved on hospital day 3; BP at baseline and home medications restarted - U CX + for pansensitive E Coli, negative Blood Cultures (6) Hypertension: Status: Acute Problem details: - hypotensive on admission 10/11 so home medications held - BP increasing 10/13, will restart Metoprolol and Amlodipine - held Torsemide and Losartan on admission 2/2 FIORELLA, both restarted 10/14 DS: Summary Hospital Course Hospital Course: 61-year-old female with type 1 diabetes admitted to the hospital with altered mental status and hyperglycemia. She was found to be in diabetic ketoacidosis with marked electrolyte abnormalities, acute kidney injury and concern for sepsis. She was found to have a UTI with pansensitive E coli. She was treated with aggressive fluid resuscitation, correction of electrolytes and hyperglycemia, antibiotics for her UTI. With these treatments she has returned to baseline. She is also return to her normal medications. Her insulin prior to admission was Lantus 13 units at bedtime and NovoLog 4 units with each meal. It is unclear if she had been compliant with that regimen leading up to this hospital stay. I note that last April she had a hemoglobin A1c around 7 and on this hospital stay she had a hemoglobin A1c of 10.1. This suggests a subacute to chronic decline in her blood sugar control. I spoke with her, her home care nurse and her son to try to determine what factors might be leading to loss of blood sugar control and it was not ever entirely clear. Her son agrees to be more vigilant about monitoring her blood sugars and her insulin dosing. Status at Discharge Cognitive/behavioral status at discharge: Back to baseline Functional status at discharge: uses cane/walker Overall status at discharge: patient is progressing back to baseline Time Spent with Patient Time attestation: Total time spent providing and/or coordinating discharge services: Time spent: Greater than 30 minutes Specific discharge activities: Spent 40 minutes in coordination of care with patient, son, home health nurse discussing disposition plan and management of diabetes Exam Narrative: Exam Narrative: She is alert, pleasant and in no distress. Respirations are clear to auscultation. Cardiovascular: S1, S2, regular rate and rhythm. Abdomen is soft without tenderness or mass. Extremities with trace edema. She has not chronic ulcer on her right heel with dry eschar and no erythema or drainage. Const: Vital Signs, click to edit/add: Vital Signs - 24 hr 10/14/22 15:00 10/14/22 15:00 10/14/22 16:00 Temperature 97.6 F Pulse Rate [Pulse Oximeter] 81 81 Respiratory Rate 16 Blood Pressure [Ri ght Arm] 164/80 H Pulse Oximetry 96 96 Oxygen Delivery Me thod Room Air Room Air Oxygen Flow Rate 10/14/22 20:00 10/15/22 00:00 10/15/22 04:10 Temperature 97.6 F 98.1 F 97.4 F L Pulse Rate [Pulse Oximeter] 84 96 79 Respiratory Rate 18 18 18 Blood Pressure [Ri ght Arm] 168/81 H 145/85 H 130/66 Pulse Oximetry 95 92 90 Oxygen Delivery Me thod Room Air Room Air Room Air Oxygen Flow Rate 0 10/15/22 07:00 10/15/22 07:00 10/15/22 08:00 Temperature 98.5 F Pulse Rate [Pulse Oximeter] 76 76 Respiratory Rate 20 20 20 Blood Pressure [Ri ght Arm] 128/62 Pulse Oximetry 94 94 Oxygen Delivery Me thod Room Air Room Air Oxygen Flow Rate Documenting provider has reviewed patient's vital signs: yes DS: Data Data Completed and Pending Labs on day of discharge: Labs from last 24 hours 10/15/22 10/14/22 06:30 19:05 WBC 7.73 RBC 3.59 L Hgb 10.6 L Hct 32.5 L MCV 91 MCH 30 MCHC 33 RDW Coeff of Stefan 14.3 Plt Count 196 Neut % (Auto) 76.9 H Lymph % (Auto) 13.5 L Christian % (Auto) 6.3 Eos % (Auto) 2.7 Baso % (Auto) 0.3 Neut # (Auto) 5.90 Lymph # (Auto) 1.00 Christian # (Auto) 0.50 Eos # (Auto) 0.21 Baso # (Auto) 0.02 VBG pH 7.450 H VBG pCO2 49 VBG pO2 37.8 VBG HCO3 34 H Sodium 139 Potassium 3.6 Chloride 101 Carbon Dioxide 33 H BUN 23 Creatinine 1.3 Estimated Creat Clear 38.07 Estimated GFR 47 Glucose 130 H Calcium 9.0 Total Bilirubin 0.6 AST 49 H ALT 38 H Alkaline Phosphatase 158 H Total Protein 7.4 Albumin 3.7 Stl C.difficile Tox PCR Negative St C. diff Tox Epid 027 PRESUMPTIVE NEGATIVE Preliminary micro results at discharge 10/11/22 05:00 Blood Culture - Preliminary Blood NO GROWTH AFTER 96 HOURS 10/11/22 04:11 Blood Culture - Preliminary Blood NO GROWTH AFTER 96 HOURS Discharge Plan Discharge Disposition: Home w/ Parent or Adult Date of Admission: 10/11/22 08:02 Attending Provider on Discharge: Peterson Javed Primary Care Provider: Shania Montiel Anticipated Discharge Date/Time: 10/15/22 11:33 Discharge Medications: New ciprofloxacin HCl 250 mg Tablet 250 mg PO BID Qty: 6 0RF Continued atorvastatin 20 mg tablet 20 mg PO QPM torsemide 20 mg tablet 40 mg PO DAILY cetirizine 5 mg tablet 5 mg PO DAILY sennosides-docusate sodium [Stool Softener-Stimulant Laxat] 8.6-50 mg tablet 2 tab PO BID losartan 25 mg tablet 12.5 mg PO DAILY omeprazole 20 mg capsule,delayed release(DR/EC) 20 mg PO DAILY metoprolol succinate 25 mg tablet extended release 24 hr 25 mg PO DAILY oxycodone 5 mg tablet 5 mg PO BID PRN duloxetine 60 mg capsule,delayed release(DR/EC) 60 mg PO DAILY pregabalin 50 mg capsule 150 mg PO HS pregabalin 100 mg capsule 200 mg PO QAM cholecalciferol (vitamin D3) 50 mcg (2,000 unit) capsule 50 mcg PO DAILY buprenorphine 5 mcg/hour patch weekly 1 patch transdermal Q7D polyethylene glycol 3350 [Miralax] 17 gram/dose powder 17 g PO BID amlodipine 2.5 mg tablet 2.5 mg PO BID ipratropium-albuterol 0.5 mg-3 mg(2.5 mg base)/3 mL solution for nebulization 3 ml INHALATION BID PRN (Reason: wheezing) vitamin H98-vpcbh acid 2,500-400 mcg tablet,disintegrating 1 tab PO DAILY Changed insulin aspart U-100 [Novolog FlexPen U-100 Insulin] 100 unit/mL (3 mL) insulin pen 5 unit subcut TIDWM Qty: 15 0RF Rx Instructions: with meals insulin glargine [Lantus Solostar U-100 Insulin] 100 unit/mL (3 mL) insulin pen 15 unit subcut HS Qty: 15 0RF Discharge Orders: Discharge Order (Routine); Ordered 10/15/22 Ordered By: Peterson Javed Patient Education: Ciprofloxacin (By mouth), Diabetic Ketoacidosis (DC) Activity Level: Activity as Tolerated Discharge Diet: Diabetic Follow Up Appointments: [facility] [Outside] - 10/19/22 11:35 am ([facility] f/u with Dr. Sarah Lockett. ) Shania Montiel MD [Primary Care Provider] - (1-2 weeks review diabetic management and cardiorespiratory status) Forms: Vascular Closure Info Instructions
[2022-10-15 15:28] VITALS: BP 147/77; PULSE 76; RESP 18
--- NOTE | 2022-10-15 15:35 | PC.NURSE ---
Nursing Care Hours: 1444-1755 Pt this shift calm and cooperative with cares, alert and oriented. assist with one to bathroom using walker and gait belt. Appetite low. No sliding scale given d/t low BS. Pain in bilat legs 01/10, treated per eMAR. CVAD removed using sterile technique, small amount of blood on gauze, no further bleeding, pressure applied 10 min. Pt instructed on site care and bandage removal. DC instructions given, all questions and concerns addressed. Wheeled out to pts ride in stable condition.
--- NOTE | 2022-10-15 16:45 | PC.SOCIAL ---
Discharge planning- Met with pt in pt's room to discuss discharge plans. Discussed the recommendation of SNF. Pt does not want to go to a SNF and wants to return home. Pt states that she lives with her son and sister in a home and they assist her with cares. Pt has a home health nurse that comes in one time a week and a [employer] LEAD that comes in three times a week for an hour at a time. Pt has a [id number] that works in home health care and helps her as needed. Sister in law is coming to the hospital today and will provide transportation. Pt has home delivered meals. Informed pt that it would need to be confirmed that there is a family plan in place to assist at home so pt is safe. Pt understands and is agreeable. Pt states that the MD was checking into this already. Confirmed that MD has had a conversation with pt's family and they are on board to assist pt with cares as needed. Social work will follow up as necessary.
[2022-10-15 19:53] LABS: Hours Collected Random hr; Total Volume Random mL
== END 2022-10-15 14:55 | disposition home health service (06) | DRG 637 ==
LOC: ED 04:35 → MEDSURG 07:48
PROVIDERS: Family Medicine; Hospitalist; Admitting Provider Family Medicine; Emergency Provider Emergency Medicine; PCP Family Medicine; Visit Provider Family Medicine
DX: E10.10 Type 1 diabetes mellitus with ketoacidosis without coma (principal); A41.9 Sepsis, unspecified organism; I13.0 Hypertensive heart and chronic kidney disease with heart failure and stage 1 through stage 4 chronic kidney disease, or unspecified chronic kidney disease; Z68.41 Body mass index [BMI] 40.0-44.9, adult; N39.0 Urinary tract infection, site not specified; B96.20 Unspecified Escherichia coli [E. coli] as the cause of diseases classified elsewhere; E87.5 Hyperkalemia; E83.39 Other disorders of phosphorus metabolism; E10.319 Type 1 diabetes mellitus with unspecified diabetic retinopathy without macular edema; E10.610 Type 1 diabetes mellitus with diabetic neuropathic arthropathy; G47.33 Obstructive sleep apnea (adult) (pediatric); N18.1 Chronic kidney disease, stage 1; E10.22 Type 1 diabetes mellitus with diabetic chronic kidney disease; Z79.4 Long term (current) use of insulin; E66.01 Morbid (severe) obesity due to excess calories; Z98.84 Bariatric surgery status; G89.4 Chronic pain syndrome; J44.9 Chronic obstructive pulmonary disease, unspecified; F32.A Depression, unspecified; E89.0 Postprocedural hypothyroidism; K21.9 Gastro-esophageal reflux disease without esophagitis; Z96.651 Presence of right artificial knee joint; Z96.649 Presence of unspecified artificial hip joint; E78.5 Hyperlipidemia, unspecified
CPT/HCPCS: 36415; 71045; 76775; 80048; 80053; 80076; 81001; 81015; 82330; 82803; 82947; 82962; 83036; 83605; 83735; 84100; 84145; 84300; 84443; 84484; 85025; 85610; 86140; 87040; 87045; 87046; 87077; 87086; 87186; 87252; 87427; 87493; 87635; 93005; 93306; 94761; 97110; 97116; 97163; 97165; 97530; 97535; 99285; A9270; C9113; J0610; J0696; J1642; J1650; J2405; J2543; J3480; J3590; J7030; J7050; J7120; S0166

== ENCOUNTER 2022-12-18 18:05 | Outpatient (CLI) | payer MEDICARE, OTHER, SELFPAY | END 2022-12-18 18:06 | disposition home or self-care (01) | LOC: AMB 12-22 12:05 | PROVIDERS: PCP Family Medicine; Visit Provider Emergency Medicine Emergency Medical Services | DX: E11.65 Type 2 diabetes mellitus with hyperglycemia (principal) | CPT/HCPCS: A0425; A0429 ==

== ENCOUNTER 2022-12-18 18:38 | Inpatient (IN) | payer MEDICARE, OTHER, SELFPAY ==
[2022-12-18] VITALS (20 sets, daily range): BP systolic 91–141; BP diastolic 36–65; PULSE 85–96; RESP 18; TEMP 36.3–36.4; O2SAT 83–100; BMI 35.2; BMI 41.8
--- NOTE | 2022-12-18 18:59 | ED_ITS ---
HPI - General Adult General Chief complaint: Diabetic Related Problem Stated complaint: High glucose Time Seen by Provider: 12/18/22 18:48 History of Present Illness HPI narrative: This patient comes in because her glucometer reading was high. She has diabetes and is taking long-acting and short-acting insulin. She states that she feels normal otherwise but does have a concern about possibility of a sore on her right heel. Glucometer reading on a arrival here shows high. Related Data Home Medications Medication Instructions Recorded Confirmed amlodipine 2.5 mg tablet 2.5 mg PO BID 10/11/22 10/11/22 atorvastatin 20 mg tablet 20 mg PO QPM 10/11/22 10/11/22 buprenorphine 5 mcg/hour weekly 1 patch transdermal Q7D 10/11/22 10/11/22 transdermal patch cetirizine 5 mg tablet 5 mg PO DAILY 10/11/22 10/11/22 cholecalciferol (vitamin D3) 50 50 mcg PO DAILY 10/11/22 10/11/22 mcg (2,000 unit) capsule duloxetine 60 mg capsule,delayed 60 mg PO DAILY 10/11/22 10/11/22 release ipratropium 0.5 mg-albuterol 3 mg 3 ml inhalation BID PRN wheezing 10/11/22 10/11/22 (2.5 mg base)/3 mL nebulization soln losartan 25 mg tablet 12.5 mg PO DAILY 10/11/22 10/11/22 metoprolol succinate 25 mg 25 mg PO DAILY 10/11/22 10/11/22 tablet,extended release 24 hr omeprazole 20 mg capsule,delayed 20 mg PO DAILY 10/11/22 10/11/22 release oxycodone 5 mg tablet 5 mg PO BID PRN 10/11/22 10/11/22 polyethylene glycol 3350 17 17 g PO BID 10/11/22 10/11/22 gram/dose oral powder (Miralax) pregabalin 100 mg capsule 200 mg PO QAM 10/11/22 10/11/22 pregabalin 50 mg capsule 150 mg PO HS 10/11/22 10/11/22 sennosides 8.6 mg-docusate sodium 2 tab PO BID 10/11/22 10/11/22 50 mg tablet (Stool Softener-Stimulant Laxative) torsemide 20 mg tablet 40 mg PO DAILY 10/11/22 10/11/22 vitamin B12 2,500 mcg-folic acid 1 tab PO DAILY 10/11/22 10/11/22 400 mcg disintegrating tablet Previous Rx's Medication Instructions Recorded ciprofloxacin HCl 250 mg tablet 250 mg PO BID #6 tabs 10/15/22 insulin aspart U-100 100 unit/mL 5 unit (0.05 mL) subcut TIDWM #15 10/15/22 (3 mL) subcutaneous pen (Novolog mL FlexPen U-100 Insulin aspart) insulin glargine 100 unit/mL (3 15 unit (0.15 mL) subcut HS #15 mL 10/15/22 mL) subcutaneous pen (Lantus Solostar U-100 Insulin) Allergies Allergy/AdvReac Type Severity Reaction Status Date / Time No Known Drug Allergies Allergy Verified 06/07/22 12:36 Review of Systems Status of ROS: Reports: 10 or more systems reviewed and unremarkable except as noted in History and below Narrative: Constitutional: No fevers, no weight gain or loss. Eyes: No discharge. No vision changes. HENT: No congestion, no sore throat, no ear pain. Cardiovascular: No chest pain, no palpitations. Respiratory: No shortness of breath, no wheezes, no cough. Gastrointestinal: No abdominal pain, no vomiting, no diarrhea. Genitourinary: No dysuria, no hematuria. Musculoskeletal: Normal range of motion. Skin: No rashes, no pruritis. Neurological: No dizziness, weakness, sensory change, speech change. Endo/Heme/Allergies: No bruising or bleeding. No polydipsia. Pysch: no suicidality, no anxiety, no insomnia. All other systems reviewed and are negative. [facility] Medical History (Updated 12/18/22 @ 20:47 by Brandt Curran MD) Sleep apnea ?G47.30 - Sleep apnea, unspecified (ICD-10) Hypertension ?I10 - Essential (primary) hypertension (ICD-10) Ulnar neuropathy ?G56.20 - Lesion of ulnar nerve, unspecified upper limb (ICD-10) Thyroid condition ?E07.9 - Disorder of thyroid, unspecified (ICD-10) Shoulder pain, left ?M25.512 - Pain in left shoulder (ICD-10) Hyperlipidemia ?E78.5 - Hyperlipidemia, unspecified (ICD-10) Morbid obesity ?E66.01 - Morbid (severe) obesity due to excess calories (ICD-10) GERD (gastroesophageal reflux disease) ?K21.9 - Gastro-esophageal reflux disease without esophagitis (ICD-10) Headache ?R51.9 - Headache, unspecified (ICD-10) Diabetes type I ?E10.9 - Type 1 diabetes mellitus without complications (ICD-10) 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 diabetic neuropathic arthropathy (ICD-10) Depressive disorder ?F32.A - Depression, unspecified (ICD-10) COPD (chronic obstructive pulmonary disease) ?J44.9 - Chronic obstructive pulmonary disease, unspecified (ICD-10) Congestive heart failure (CHF) ?I50.9 - Heart failure, unspecified (ICD-10) Chronic pain syndrome ?G89.4 - Chronic pain syndrome (ICD-10) Chronic kidney disease, stage 1 ?N18.1 - Chronic kidney disease, stage 1 (ICD-10) Carpal tunnel syndrome ?G56.00 - Carpal tunnel syndrome, unspecified upper limb (ICD-10) Diabetic retinopathy ?E11.319 - Type 2 diabetes mellitus with unspecified diabetic retinopathy without macular edema (ICD-10) Anemia of other chronic disease ?D63.8 - Anemia in other chronic diseases classified elsewhere (ICD-10) Acute respiratory failure ?J96.00 - Acute respiratory failure, unspecified whether with hypoxia or hypercapnia (ICD-10) Surgical History (Updated 10/11/22 @ 04:53 by Franki Yao RN) History of thyroidectomy ?E89.0 - Postprocedural hypothyroidism (ICD-10) History of hip replacement ?Z96.649 - Presence of unspecified artificial hip joint (ICD-10) History of gastric bypass ?Z98.84 - Bariatric surgery status (ICD-10) History of section ?Z98.891 - History of uterine scar from previous surgery (ICD-10) Hx of cataract removal with insertion of prosthetic lens ?Z98.49 - Cataract extraction status, unspecified eye (ICD-10) ?Z96.1 - Presence of intraocular lens (ICD-10) History of carpal tunnel release ?Z98.890 - Other specified postprocedural states (ICD-10) History of knee replacement procedure of right knee ?Z96.651 - Presence of right artificial knee joint (ICD-10) Social History (Updated 10/11/22 @ 13:31 by Saritha Gamez MD) Narrative: Full Code. Lives with son Mitul, who would be medical decision maker if needed. Smoking Status: Never smoker Do you use any of these nicotine containing products: None Second hand tobacco smoke exposure: No How often do you have a drink containing alcohol: never AUDIT-C Alcohol total score: 0 Non-prescribed substance use: denies use Exam Narrative: Exam Narrative: Constitutional: Well-developed, well-nourished, no acute distress. HEENT: Normocephalic, atraumatic. Neck: Normal range of motion. Nontender. Supple. Heart: Regular. No murmurs. Normal rate. Intact distal pulses. Lungs: Clear to auscultation. No chest discomfort. No wheezes, rhonchi, or rales. Abdomen: Normal bowel sounds. Nontender. No rebound tenderness. Genitalia: Deferred. Back: No midline tenderness. Normal range of motion. Extremities: Normal range of motion. No injury. Right heel has no sign of skin breakdown or ulceration. Skin: Intact. No rash. Warm. No erythema or pallor. Neurologic: No altered sensation. No weakness. Alert and oriented. Psychiatric: No suicidality. No anxiety or depression. No insomnia. Nursing notes and vitals signs are reviewed. Const: Vital Signs, click to edit/add: Vital Signs - 24 hr 12/18/22 18:43 12/18/22 19:15 12/18/22 19:18 Temperature 97.3 F L Pulse Rate Pulse Rate [Pulse Oximeter] 92 Blood Pressure Blood Pressure [Ri ght Upper Arm] 91/44 L Pulse Oximetry 94 83 L 93 Oxygen Delivery Me thod Nasal Cannula Room Air Nasal Cannula Oxygen Flow Rate 1 2 12/18/22 19:26 12/18/22 19:27 12/18/22 19:30 Temperature Pulse Rate 89 92 91 Pulse Rate [Pulse Oximeter] Blood Pressure 101/42 L Blood Pressure [Ri ght Upper Arm] Pulse Oximetry 95 92 94 Oxygen Delivery Me thod Oxygen Flow Rate 12/18/22 19:32 12/18/22 19:45 Temperature Pulse Rate 90 91 Pulse Rate [Pulse Oximeter] Blood Pressure 98/43 L Blood Pressure [Ri ght Upper Arm] Pulse Oximetry 93 94 Oxygen Delivery Me thod Oxygen Flow Rate Course Vital Signs Vital signs: Initial Vital Signs Temperature 97.3 F L 12/18/22 18:43 Temperature Source Temporal Artery Scan 12/18/22 18:43 Pulse Rate 92 12/18/22 18:43 Blood Pressure 91/44 L 12/18/22 18:43 Blood Pressure Mean 59 L 12/18/22 18:43 Blood Pressure Position Sitting 12/18/22 18:43 Pulse Oximetry 94 12/18/22 18:43 Oxygen Delivery Method Nasal Cannula 12/18/22 18:43 Oxygen Flow Rate 1 12/18/22 18:43 Vital Signs Temperature 97.3 F L 12/18/22 18:43 Pulse Rate 92 12/18/22 18:43 Blood Pressure 91/44 L 12/18/22 18:43 Pulse Oximetry 94 12/18/22 18:43 Oxygen Delivery Method Nasal Cannula 12/18/22 18:43 Oxygen Flow Rate 1 12/18/22 18:43 Temperature 97.3 F L 12/18/22 18:43 Pulse Rate 91 12/18/22 19:45 Blood Pressure 98/43 L 12/18/22 19:32 Pulse Oximetry 94 12/18/22 19:45 Oxygen Delivery Method Nasal Cannula 12/18/22 19:18 Oxygen Flow Rate 2 12/18/22 19:18 Medical Decision Making MDM Narrative Medical decision making narrative: This patient comes in stating that her blood glucose has been high today. It read high on the glucometer at home as did the reading show initially here when she arrived. She is not complaining of any nausea, vomiting, or significant discomfort. An IV was established and labs returned with blood glucose at 1082, sodium at 123, potassium at 6.8. Her venous blood gases show a pH of 7.2. Her bicarb is slightly low at 20. This patient did received 10 units of regular insulin intravenously. She also received a L of normal saline. She has results that are typical of a hyperosmolar syndrome. Her bicarb is just slightly low. I spoke with the hospitalist salesperson pets and pet supplies, Dr. Keller, who agrees to her admission for further evaluation and treatment. Lab Data Labs: Lab Results 12/18/22 12/18/22 12/18/22 Range/Units 19:20 19:55 19:57 WBC 9.05 (4.50-11.00) K/uL RBC 3.89 L (4.00-5.20) m/uL Hgb 11.4 L (12.0-16.0) gm/dL Hct 37.8 (33.0-51.0) % MCV 97 (80-100) fL MCH 29 (26-34) pg MCHC 30 L (32-36) gm/dL RDW Coeff of Stefan 13.4 (11.5-15.5) % Plt Count 283 (140-440) K/uL Neut % (Auto) 88.9 H (42.0-72.0) % Lymph % (Auto) 6.5 L (20-44) % Gaston % (Auto) 4.2 (0.0-11.0) % Eos % (Auto) 0.1 (0.0-7.0) % Baso % (Auto) 0.2 (0.0-3.0) % Neut # (Auto) 8.00 H (1.7-7.0) K/uL Lymph # (Auto) 0.60 L (0.90-2.90) K/uL Gaston # (Auto) 0.40 (0.00-0.90) K/UL Eos # (Auto) 0.01 (0.00-0.50) K/uL Baso # (Auto) 0.02 (0.00-0.30) K/uL VBG pH 7.228 L* (7.32-7.43) VBG pCO2 47 (40-50) mmHG VBG pO2 33.9 (25-47) mmHG VBG HCO3 20 L (21-28) mmol/L Sodium 123 L* (135-149) mmol/L Potassium 6.8 H* (3.6-5.1) mmol/L Chloride 86 L (96-114) mmol/L Carbon Dioxide 19 L (20-32) mmol/L BUN 47 H (7-30) mg/dL Creatinine 2.2 H (0.5-1.5) mg/dL Estimated Creat Clear 19.29 Estimated GFR 25 ml/min Glucose 1082 H* (60-115) mg/dL Calcium 9.0 (8.4-10.6) mg/dL Lab Acknowledgement New Spec Needed ECG Data Attestation: I personally reviewed and interpreted this ECG as follows: Interpretation: Normal sinus rhythm. Rate is 92 beats per minute. There are no ST or T-wave abnormalities. Discharge Plan Discharge Clinical Impression: Hyperosmolar syndrome, Acute hyponatremia, Acute hyperkalemia Patient Disposition: Admitted As Inpatient Condition: Unchanged Prescriptions: No Action atorvastatin 20 mg tablet 20 mg PO QPM torsemide 20 mg tablet 40 mg PO DAILY cetirizine 5 mg tablet 5 mg PO DAILY sennosides-docusate sodium [Stool Softener-Stimulant Laxat] 8.6-50 mg tablet 2 tab PO BID losartan 25 mg tablet 12.5 mg PO DAILY omeprazole 20 mg capsule,delayed release(DR/EC) 20 mg PO DAILY metoprolol succinate 25 mg tablet extended release 24 hr 25 mg PO DAILY oxycodone 5 mg tablet 5 mg PO BID PRN duloxetine 60 mg capsule,delayed release(DR/EC) 60 mg PO DAILY pregabalin 50 mg capsule 150 mg PO HS pregabalin 100 mg capsule 200 mg PO QAM cholecalciferol (vitamin D3) 50 mcg (2,000 unit) capsule 50 mcg PO DAILY buprenorphine 5 mcg/hour patch weekly 1 patch transdermal Q7D polyethylene glycol 3350 [Miralax] 17 gram/dose powder 17 g PO BID amlodipine 2.5 mg tablet 2.5 mg PO BID ipratropium-albuterol 0.5 mg-3 mg(2.5 mg base)/3 mL solution for nebulization 3 ml INHALATION BID PRN (Reason: wheezing) vitamin W75-cisbq acid 2,500-400 mcg tablet,disintegrating 1 tab PO DAILY ciprofloxacin HCl 250 mg Tablet 250 mg PO BID Qty: 6 0RF insulin aspart U-100 [Novolog FlexPen U-100 Insulin] 100 unit/mL (3 mL) insulin pen 5 unit subcut TIDWM Qty: 15 0RF Rx Instructions: with meals insulin glargine [Lantus Solostar U-100 Insulin] 100 unit/mL (3 mL) insulin pen 15 unit subcut HS Qty: 15 0RF Follow Up/Referrals: Shania Montiel MD [Primary Care Provider] -
--- NOTE | 2022-12-18 19:00 | ED.NURSE ---
POC BG taken, too high to read. aware.
[2022-12-18 19:25] LABS: Basophils Absolute Auto 0.02 K/uL (0.00-0.30); Basophils Percent Auto 0.2 % (0.0-3.0); Eosinophils Absolute Auto 0.01 K/uL (0.00-0.50); Eosinophils Percent Auto 0.1 % (0.0-7.0); Hematocrit 37.8 % (33.0-51.0); Hemoglobin* 11.4 gm/dL (12.0-16.0); Immature Granulocytes Abs Auto 0.01 K/uL (0.00-0.30); Immature Granulocytes Pct Auto 0.1 %; Lymphocytes Percent Auto 6.5 % (20-44); Mean Corpuscular HGB Conc 30 gm/dL (32-36); Mean Corpuscular Hemoglobin 29 pg (26-34); Mean Corpuscular Volume 97 fL (80-100); Monocytes Percent Auto 4.2 % (0.0-11.0); Neutrophils Percent Auto 88.9 % (42.0-72.0); Platelet Count* 283 K/uL (140-440); RDW Coefficient of Variation % 13.4 % (11.5-15.5); Red Blood Count 3.89 m/uL (4.00-5.20); White Blood Count* 9.05 K/uL (4.50-11.00)
[2022-12-18 19:34] LABS: Slide Review Reflex No
[2022-12-18 19:59] LABS: Lab Add On Test New Spec Needed
[2022-12-18 20:03] LABS: HCO3 VBG 20 mmol/L (21-28); PCO2 VBG 47 mmHG (40-50); PO2 VBG 33.9 mmHG (25-47); pH VBG 7.228 (7.32-7.43)
[2022-12-18 20:11] LABS: Chloride* 86 mmol/L (96-114)
[2022-12-18 20:14] LABS: Carbon Dioxide* 19 mmol/L (20-32); Creatinine* 2.2 mg/dL (0.5-1.5); Est. Creatinine Clearance* 19.29; Estimated Glomerular Filt Rate 25 ml/min
[2022-12-18 20:15] LABS: Blood Urea Nitrogen* 47 mg/dL (7-30)
[2022-12-18 20:25] LABS: Glucose* 1082 mg/dL (60-115); Potassium* 6.8 mmol/L (3.6-5.1); Sodium* 123 mmol/L (135-149)
--- NOTE | 2022-12-18 20:25 | ED.NURSE ---
Critical labs results include: ph 7.228, Na: 123, potassium 6.8, Glucose 1082
--- NOTE | 2022-12-18 20:37 | CRLHL7_ITS ---
For Patients: As a result of the Cures Act, medical imaging exams and procedure reports are released immediately into your electronic medical record. You may view this report before your referring provider. If you have questions, please contact your health care provider. Indication: Hypoxia Technique: Chest 1 view Comparison: October 13, 2022 Findings/Impression: Stable cardiac size. Mild pulmonary venous congestion. No effusion or pneumothorax. Status post bilateral shoulder arthroplasty. Dictated by Grace Tariq MD @ 12/18/2022 10:42:57 PM (Electronically Signed)
--- NOTE | 2022-12-18 20:49 | ED.NURSE ---
Patient's [id number] and STEAM HAND, Noemí, called for an update. Per Mikayla, it is ok to provide update. Noemí updated with admission.
[2022-12-18] MEDS: 0.9 % SODIUM CHLORIDE 1000 ml 1,000 ML IV (21:01)
[2022-12-18 21:04] LABS: HCO3 VBG 18 mmol/L (21-28); PCO2 VBG 48 mmHG (40-50); PO2 VBG 55.3 mmHG (25-47)
[2022-12-18 21:05] LABS: pH VBG 7.183 (7.32-7.43)
[2022-12-18 21:28] LABS: Glucose* 1054 mg/dL (60-115)
[2022-12-18 21:36] LABS: NT Pro B Type NatriureticPept* 1810 pg/mL
[2022-12-18 21:40] LABS: Troponin I* < 0.01 ng/mL (0.01-0.04)
[2022-12-18 21:42] LABS: Procalcitonin* 3.81 ng/mL (<0.50)
--- NOTE | 2022-12-18 21:51 | ED.NURSE ---
Report to CCU RN. Patient to CCU 2 via stretcher. Tele box on.
--- NOTE | 2022-12-18 22:01 | PM.IMHP1 ---
Hospitalist- H&P: HPI History of Present Illness Time Seen by Provider: 21:00 Date Seen: 12/18/22 Chief complaint: High glucose Narrative: Mikayla Kuhn is a 62 year old woman who presents today to our emergency department for assessment due to home blood glucose monitoring device reading repeatedly ?high?. She is known to have diabetes mellitus. Has had prior admissions for DKA, most recently from 10/11/2022 through 10/15/2022. Monitors her blood sugars at home. She indicates her blood sugars have been adequately controlled up until today. She is somewhat vague about blood sugar readings at home. Indicates she has not felt poorly except for it feels like her blood sugars are high. She is not able to articulate be on this. She acknowledges chronic, longstanding sense of having chills off and on throughout the day, particularly since she started using her air conditioner during these hot summer days. She specifically denies fevers or rigors. Denies dysuria, urgency, or hematuria. Acknowledges polyuria and polydipsia. Mouth has been much more dry than usual. Denies polyphagia. Denies nausea or vomiting. Eating and drinking without difficulties. Denies diarrhea or constipation. No sores or open wounds on her skin. No recent trauma or injury. Denies cough or URI symptoms. Denies dyspnea at rest, change in dyspnea with exertion, paroxysmal nocturnal dyspnea or orthopnea. Does use her CPAP machine at bedtime. No recent trauma, travel, or injury. Review of Systems Status of ROS: Reports: 10 or more systems reviewed and unremarkable except as noted in History and below Narrative: Denies chest heaviness, pressure, tightness, or pain. Denies syncope or near-syncope. Denies claudication or change in bilateral lower extremity dependent edema. Denies weight gain or weight loss. Denies night sweats. Denies focal motor neurologic deficits. Denies visual or hearing changes. Denies myalgias or arthralgias. [facility] Medical History Sleep apnea ?G47.30 - Sleep apnea, unspecified (ICD-10) Hypertension ?I10 - Essential (primary) hypertension (ICD-10) Ulnar neuropathy ?G56.20 - Lesion of ulnar nerve, unspecified upper limb (ICD-10) Thyroid condition ?E07.9 - Disorder of thyroid, unspecified (ICD-10) Shoulder pain, left ?M25.512 - Pain in left shoulder (ICD-10) Hyperlipidemia ?E78.5 - Hyperlipidemia, unspecified (ICD-10) Morbid obesity ?E66.01 - Morbid (severe) obesity due to excess calories (ICD-10) GERD (gastroesophageal reflux disease) ?K21.9 - Gastro-esophageal reflux disease without esophagitis (ICD-10) Headache ?R51.9 - Headache, unspecified (ICD-10) Diabetes type I ?E10.9 - Type 1 diabetes mellitus without complications (ICD-10) 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 diabetic neuropathic arthropathy (ICD-10) Depressive disorder ?F32.A - Depression, unspecified (ICD-10) COPD (chronic obstructive pulmonary disease) ?J44.9 - Chronic obstructive pulmonary disease, unspecified (ICD-10) Congestive heart failure (CHF) ?I50.9 - Heart failure, unspecified (ICD-10) Chronic pain syndrome ?G89.4 - Chronic pain syndrome (ICD-10) Chronic kidney disease, stage 1 ?N18.1 - Chronic kidney disease, stage 1 (ICD-10) Carpal tunnel syndrome ?G56.00 - Carpal tunnel syndrome, unspecified upper limb (ICD-10) Diabetic retinopathy ?E11.319 - Type 2 diabetes mellitus with unspecified diabetic retinopathy without macular edema (ICD-10) Anemia of other chronic disease ?D63.8 - Anemia in other chronic diseases classified elsewhere (ICD-10) Acute respiratory failure ?J96.00 - Acute respiratory failure, unspecified whether with hypoxia or hypercapnia (ICD-10) Surgical History History of thyroidectomy ?E89.0 - Postprocedural hypothyroidism (ICD-10) History of hip replacement ?Z96.649 - Presence of unspecified artificial hip joint (ICD-10) History of gastric bypass ?Z98.84 - Bariatric surgery status (ICD-10) History of section ?Z98.891 - History of uterine scar from previous surgery (ICD-10) Hx of cataract removal with insertion of prosthetic lens ?Z98.49 - Cataract extraction status, unspecified eye (ICD-10) ?Z96.1 - Presence of intraocular lens (ICD-10) History of carpal tunnel release ?Z98.890 - Other specified postprocedural states (ICD-10) History of knee replacement procedure of right knee ?Z96.651 - Presence of right artificial knee joint (ICD-10) Social History Narrative: Full Code. Lives with son Mitul, who would be medical decision maker if needed. Smoking Status: Never smoker Do you use any of these nicotine containing products: None Second hand tobacco smoke exposure: No How often do you have a drink containing alcohol: never AUDIT-C Alcohol total score: 0 Non-prescribed substance use: denies use Meds Home Medications and Allergies Home Medications Medication Instructions Recorded Confirmed Type amlodipine 2.5 mg tablet 2.5 mg PO BID 10/11/22 10/11/22 History atorvastatin 20 mg tablet 20 mg PO QPM 10/11/22 10/11/22 History buprenorphine 5 mcg/hour weekly 1 patch transdermal Q7D 10/11/22 10/11/22 History transdermal patch cetirizine 5 mg tablet 5 mg PO DAILY 10/11/22 10/11/22 History cholecalciferol (vitamin D3) 50 50 mcg PO DAILY 10/11/22 10/11/22 History mcg (2,000 unit) capsule duloxetine 60 mg capsule,delayed 60 mg PO DAILY 10/11/22 10/11/22 History release ipratropium 0.5 mg-albuterol 3 mg 3 ml inhalation BID PRN wheezing 10/11/22 10/11/22 History (2.5 mg base)/3 mL nebulization soln losartan 25 mg tablet 12.5 mg PO DAILY 10/11/22 10/11/22 History metoprolol succinate 25 mg 25 mg PO DAILY 10/11/22 10/11/22 History tablet,extended release 24 hr omeprazole 20 mg capsule,delayed 20 mg PO DAILY 10/11/22 10/11/22 History release oxycodone 5 mg tablet 5 mg PO BID PRN 10/11/22 10/11/22 History polyethylene glycol 3350 17 17 g PO BID 10/11/22 10/11/22 History gram/dose oral powder (Miralax) pregabalin 100 mg capsule 200 mg PO QAM 10/11/22 10/11/22 History pregabalin 50 mg capsule 150 mg PO HS 10/11/22 10/11/22 History sennosides 8.6 mg-docusate sodium 2 tab PO BID 10/11/22 10/11/22 History 50 mg tablet (Stool Softener-Stimulant Laxative) torsemide 20 mg tablet 40 mg PO DAILY 10/11/22 10/11/22 History vitamin B12 2,500 mcg-folic acid 1 tab PO DAILY 10/11/22 10/11/22 History 400 mcg disintegrating tablet Home Medication Comments: Claims to be adherent to her insulin regimen as follows: Glargine insulin 15 units at bedtime, and, Aspart insulin 5 units t.i.d. with meals. Allergies Allergy/AdvReac Type Severity Reaction Status Date / Time No Known Drug Allergies Allergy Verified 06/07/22 12:36 Exam Narrative: Exam Narrative: Appears comfortable and in no acute distress. Hearing and vision are grossly normal. External auditory canals are clear with normal tympanic membranes. Pupils equally round and reactive to light and accommodation. Extraocular muscles intact. No icterus or conjunctival injection. Mallampati class 4 airway. Dentition in fair repair. Midline trachea. Supple neck. No JVD or pedal jugular reflux. No carotid bruits. No lymphadenopathy in had neck and axilla. Lungs are clear to auscultation. No wheezing or rhonchi. Chest wall excursions are full. No CVA tenderness to percussion. No tenderness to percussion over the spine. Medication patch on her back in place. Heart tones with regular rhythm, normal S1-S2. PMI not laterally displaced. Abdomen with active bowel sounds, soft, nontender. No rebound or guarding. Trace edema pretibially bilaterally in lower extremities. Independent transfer, station, and gait. Slow to move. Skin is intact. Right heel has dressing over it with skin intact underneath the dressing. She indicates that that area is sometimes uncomfortable with direct pressure. Const: Vital Signs, click to edit/add: Vital Signs - 24 hr 12/18/22 18:43 12/18/22 19:15 12/18/22 19:18 Temperature 97.3 F L Pulse Rate Pulse Rate [Pulse Oximeter] 92 Blood Pressure Blood Pressure [Ri ght Upper Arm] 91/44 L Pulse Oximetry 94 83 L 93 Oxygen Delivery Me thod Nasal Cannula Room Air Nasal Cannula Oxygen Flow Rate 1 2 12/18/22 19:26 12/18/22 19:27 12/18/22 19:30 Temperature Pulse Rate 89 92 91 Pulse Rate [Pulse Oximeter] Blood Pressure 101/42 L Blood Pressure [Ri ght Upper Arm] Pulse Oximetry 95 92 94 Oxygen Delivery Me thod Oxygen Flow Rate 12/18/22 19:32 12/18/22 19:45 12/18/22 20:00 Temperature Pulse Rate 90 91 96 Pulse Rate [Pulse Oximeter] Blood Pressure 98/43 L Blood Pressure [Ri ght Upper Arm] Pulse Oximetry 93 94 94 Oxygen Delivery Me thod Oxygen Flow Rate 12/18/22 20:02 12/18/22 20:32 12/18/22 20:33 Temperature Pulse Rate 95 92 92 Pulse Rate [Pulse Oximeter] Blood Pressure 105/36 L 103/65 Blood Pressure [Ri ght Upper Arm] Pulse Oximetry 94 94 96 Oxygen Delivery Me thod Oxygen Flow Rate 12/18/22 21:00 12/18/22 21:03 12/18/22 21:04 Temperature Pulse Rate 93 92 93 Pulse Rate [Pulse Oximeter] Blood Pressure 134/53 L Blood Pressure [Ri ght Upper Arm] Pulse Oximetry 100 100 100 Oxygen Delivery Me thod Nasal Cannula Oxygen Flow Rate 2 12/18/22 21:30 12/18/22 21:32 Temperature Pulse Rate 90 90 Pulse Rate [Pulse Oximeter] Blood Pressure 141/47 H Blood Pressure [Ri ght Upper Arm] Pulse Oximetry 100 100 Oxygen Delivery Me thod Nasal Cannula Oxygen Flow Rate 2 Documenting provider has reviewed patient's vital signs: yes Hospitalist - H&P: Result Labs Labs: Short CBC 12/18/22 Range/Units 19:20 WBC 9.05 (4.50-11.00) K/uL Hgb 11.4 L (12.0-16.0) gm/dL Hct 37.8 (33.0-51.0) % Plt Count 283 (140-440) K/uL BMP 12/18/22 12/18/22 19:20 20:45 Sodium 123 L* Potassium 6.8 H* Chloride 86 L Carbon Dioxide 19 L BUN 47 H Creatinine 2.2 H Glucose 1082 H* 1054 H* Calcium 9.0 Cardiac Enzymes 12/18/22 Range/Units 19:20 Troponin I < 0.01 L (0.01-0.04) ng/mL Imaging Chest x-ray: Attestation: I have reviewed the pertinent imaging results. Radiologist's impression: Radiologist reading not available. By my view there is no acute infiltrates. Compared to her last 2 chest x-rays. Assessment and Plan Assessment and plan (1) Diabetic ketoacidosis: Status: Acute (2) Hyperosmolar hyperglycemic state (HHS): Status: Acute (3) Acute hyperkalemia: Status: Acute (4) Pseudohyponatremia: Status: Acute (5) Diabetes type I: Problem comment: - last A1C 7.4 04/24 - sees Dr. Ibarra of Endocrinology Status: Acute Plan 1. Reviewed with patient. 2. Reviewed with Dr. Stanton, emergency department. 3. Recommended admission to our critical care unit, with daily weight, I's and O's. 4. Normal saline IV fluid, regular insulin IV drip, q.1 hour blood sugar monitoring and adjustment of insulin drip rate. 5. Frequent monitoring of kidney function panel, venous blood gas, lactate. 6. Will check blood cultures and urinalysis and urine culture. 7. As blood sugar levels began to normalize, will need to switch over IV fluid type to D5 normal saline with potassium. 8. Continue with other supportive medications and home CPAP. 9. Patient agreeable to above stated plans and recommendations
[2022-12-18] MEDS: INSULIN INF 100 UNIT/100 ML 100 UNIT/100 ML BAG 6.5 UNIT IVPB (22:17)
[2022-12-18] MEDS: 0.9 % SODIUM CHLORIDE 500 ML 500 ML IV (22:21)
[2022-12-18] MEDS: 0.9 % SODIUM CHLORIDE 1000 ml 1,000 ML 125 ML IV (22:21)
[2022-12-18] MEDS: ENOXAPARIN 30 MG/0.3ML INJ SUBCUT (22:23)
[2022-12-18 22:32] LABS: HCO3 VBG 19 mmol/L (21-28); PCO2 VBG 47 mmHG (40-50); PO2 VBG 40.4 mmHG (25-47)
[2022-12-18 22:36] LABS: pH VBG 7.217 (7.32-7.43)
[2022-12-18 22:54] LABS: Albumin* 3.7 g/dL (3.3-5.0); Chloride* 91 mmol/L (96-114); Potassium* 5.6 mmol/L (3.6-5.1); Sodium* 127 mmol/L (135-149)
[2022-12-18 22:57] LABS: Blood Urea Nitrogen* 49 mg/dL (7-30); Calcium* 8.6 mg/dL (8.4-10.6); Carbon Dioxide* 17 mmol/L (20-32); Creatinine* 2.2 mg/dL (0.5-1.5); Est. Creatinine Clearance* 19.29; Estimated Glomerular Filt Rate 25 ml/min; Magnesium* 2.2 mg/dL (1.5-2.6)
[2022-12-18 23:33] LABS: Glucose* 893 mg/dL (60-115); Phosphorus* 6.7 mg/dL (2.5-4.5)
[2022-12-19] VITALS (14 sets, daily range): BP systolic 101–138; BP diastolic 39–54; PULSE 77–93; RESP 18–20; TEMP 36.6–36.9; O2SAT 88–94
[2022-12-19] MEDS: POTASSIUM CHLORIDE 40 MEQ in 0.9 % SODIUM CHLORIDE 1000 ml 1,000 ML 125 MEQ IV (00:03)
[2022-12-19 00:09] LABS: Glucose* 787 mg/dL (60-115)
[2022-12-19 01:57] LABS: Glucose* 601 mg/dL (60-115)
[2022-12-19 03:24] LABS: HCO3 VBG 28 mmol/L (21-28); PCO2 VBG 49 mmHG (40-50); PO2 VBG 36.6 mmHG (25-47); pH VBG 7.368 (7.32-7.43)
[2022-12-19 03:41] LABS: Albumin* 3.3 g/dL (3.3-5.0); Chloride* 96 mmol/L (96-114); Potassium* 4.4 mmol/L (3.6-5.1); Sodium* 129 mmol/L (135-149)
[2022-12-19 03:43] LABS: Creatinine* 2.1 mg/dL (0.5-1.5); Est. Creatinine Clearance* 20.21; Estimated Glomerular Filt Rate 26 ml/min
[2022-12-19 03:44] LABS: Blood Urea Nitrogen* 52 mg/dL (7-30); Calcium* 8.3 mg/dL (8.4-10.6); Carbon Dioxide* 27 mmol/L (20-32); Phosphorus* 3.8 mg/dL (2.5-4.5)
[2022-12-19 03:49] LABS: Glucose* 503 mg/dL (60-115)
[2022-12-19 06:23] LABS: HCO3 VBG 30 mmol/L (21-28); Lactate* 2.8 mmol/L (0.5-1.9); PCO2 VBG 51 mmHG (40-50); PO2 VBG 29.8 mmHG (25-47); pH VBG 7.382 (7.32-7.43)
[2022-12-19 06:31] LABS: Hematocrit 32.1 % (33.0-51.0); Hemoglobin* 10.3 gm/dL (12.0-16.0); Mean Corpuscular HGB Conc 32 gm/dL (32-36); Mean Corpuscular Hemoglobin 29 pg (26-34); Mean Corpuscular Volume 92 fL (80-100); Platelet Count* 253 K/uL (140-440); Red Blood Count 3.51 m/uL (4.00-5.20); White Blood Count* 7.72 K/uL (4.50-11.00)
[2022-12-19] MEDS: 5 % DEXTROSE/0.9% SOD CHLORIDE 1,000 ML 200 ML IV (07:21)
[2022-12-19 07:22] LABS: Slide Review Reflex No
[2022-12-19 07:31] LABS: Albumin* 3.3 g/dL (3.3-5.0)
[2022-12-19 07:32] LABS: Chloride* 99 mmol/L (96-114); Potassium* 4.4 mmol/L (3.6-5.1); Sodium* 132 mmol/L (135-149)
[2022-12-19 07:34] LABS: Alkaline Phosphatase* 104 U/L (40-150); Aspartate Amino Transferase* 27 U/L (12-35); Bilirubin Total* 0.3 mg/dL (0.1-1.5); Blood Urea Nitrogen* 53 mg/dL (7-30); Carbon Dioxide* 29 mmol/L (20-32); Creatinine* 2.1 mg/dL (0.5-1.5); Est. Creatinine Clearance* 20.21; Estimated Glomerular Filt Rate 26 ml/min; Total Protein* 6.5 g/dL (6.0-8.3)
[2022-12-19 07:35] LABS: Alanine Aminotransferase* 33 U/L (4-35); Calcium* 8.5 mg/dL (8.4-10.6); Glucose* 275 mg/dL (60-115); Magnesium* 2.1 mg/dL (1.5-2.6); Phosphorus* 3.4 mg/dL (2.5-4.5)
[2022-12-19 07:45] LABS: NT Pro B Type NatriureticPept* 2870 pg/mL
[2022-12-19] MEDS: DULOXETINE 30 MG CAPSULE DR 60 MG PO (11:26)
[2022-12-19] MEDS: PREGABALIN 100 MG CAPSULE 200 MG PO (11:26)
[2022-12-19] MEDS: TORSEMIDE 20 MG TABLET 40 MG PO (11:27)
[2022-12-19] MEDS: SENNOSIDES/DOCUSATE TABLET 2 TAB PO ×2 (11:28→21:30)
[2022-12-19] MEDS: polyethylene glycoL 3350 17 GM PACK PO (11:28)
[2022-12-19] MEDS: OMEPRAZOLE 20 MG CAPSULE DR PO (11:28)
[2022-12-19] MEDS: METOPROLOL SUCCINATE (XL) 25 MG TAB PO (11:28)
[2022-12-19 11:41] LABS: Hemoglobin A1C* 9.16 % (0-5.6)
[2022-12-19 11:50] LABS: Appearance Urine Cloudy (Clear); Bilirubin Urine 2+ (Negative); Blood Urine 2+ (Negative); Color Urine Yellow (Yellow); Glucose Urine 2+ (Negative); Ketones Urine 1+ (Negative); Leukocyte Esterase Urine 3+ (Negative); Nitrite Urine Negative (Negative); Protein Urine 2+ (Negative); Specific Gravity Urine 1.025 (1.000-1.030); Urobilinogen Urine 0.2 (0.2-1.0)
[2022-12-19] MEDS: ENOXAPARIN 30 MG/0.3ML INJ SUBCUT ×2 (11:52→22:08)
[2022-12-19 11:59] LABS: Bacteria Urine Moderate; Squamous Epithelial Cell Urine Few (None-Few); WBC Urine 50-100 (0-5)
[2022-12-19] MEDS: 0.9 % SODIUM CH + KCL 20 mEq/L 1,000 ML 200 ML IV ×2 (12:02→17:55)
--- NOTE | 2022-12-19 13:33 | P.IMPN_ITS ---
Progress Note: A&P Assessment and plan (1) Diabetic ketoacidosis: Problem details: Gap closed. Off the insulin drip. Subcu long-acting and sliding scale insulin ordered. Fluids continue given FIORELLA and elevated lactate. UTI presumably causative. In addition, lack of adherence to insulin regimen. Status: Acute (2) UTI (urinary tract infection): Problem details: 1 g Rocephin x1. Augmentin b.i.d. with food. Awaiting culture and sensitivities. Likely the cause of her DKA. Status: Acute (3) Acute hyperkalemia: Problem details: Resolved Status: Acute (4) Pseudohyponatremia: Problem details: Resolved Status: Resolved (5) Diabetes type I: Problem details: - A1c 9.1 Status: Acute Subjective Date Seen: 12/19/22 Interval history: Daily Progress Note - Hospital Medicine Day #: 2 CC: Admitted last night DKA, FIORELLA OVERNIGHT UPDATES FROM STAFF & MED, LAB, IMAGING UPDATES Kati has done well overnight. She feels a lot better this morning. Her gap has closed. Blood sugar has come down. Her pH is normal. She is hungry. 101/48, 115/39. Afebrile. Pulse 70. Respiratory rate 20. Pulse ox 93% Admission and follow-up labs reviewed. Her creatinine is still quite elevated. Baseline appears to be about 1.3. She is at 2.1 this morning. She does seem to jump her creatinine was any hospitalization or acute issue. Hemoglobin 10.3. Blood sugar 2.45. Sodium 132, normal when corrected. PH was 7.22 - 7.18 upon evaluation. This morning 7.38. Urine shows 1+ ketones, 3+ leukocyte esterase, negative urine nitrite. She also shows 50-100 white blood cells and moderate bacteria. -urine culture pending. Blood cultures pending x2 Objective: Alert. No acute distress. Vitals: see above Lungs: Clear. Cardiac: S1S2. Disposition/Potential discharge - Likely to return to previous living situation. Total time is 35 minutes with greater than 50% spent in counseling and coordination of care. Exam Const: Vital Signs, click to edit/add: Vital Signs - 24 hr 12/18/22 18:43 12/18/22 19:15 12/18/22 19:18 Temperature 97.3 F L Pulse Rate Pulse Rate [Left P ulse Oximeter] Pulse Rate [Pulse Oximeter] 92 Respiratory Rate Blood Pressure Blood Pressure [Ri ght Arm] Blood Pressure [Ri ght Upper Arm] 91/44 L Pulse Oximetry 94 83 L 93 Oxygen Delivery Me thod Nasal Cannula Room Air Nasal Cannula Oxygen Flow Rate 1 2 12/18/22 19:26 12/18/22 19:27 12/18/22 19:30 Temperature Pulse Rate 89 92 91 Pulse Rate [Left P ulse Oximeter] Pulse Rate [Pulse Oximeter] Respiratory Rate Blood Pressure 101/42 L Blood Pressure [Ri ght Arm] Blood Pressure [Ri ght Upper Arm] Pulse Oximetry 95 92 94 Oxygen Delivery Me thod Oxygen Flow Rate 12/18/22 19:32 12/18/22 19:45 12/18/22 20:00 Temperature Pulse Rate 90 91 96 Pulse Rate [Left P ulse Oximeter] Pulse Rate [Pulse Oximeter] Respiratory Rate Blood Pressure 98/43 L Blood Pressure [Ri ght Arm] Blood Pressure [Ri ght Upper Arm] Pulse Oximetry 93 94 94 Oxygen Delivery Me thod Oxygen Flow Rate 12/18/22 20:02 12/18/22 20:32 12/18/22 20:33 Temperature Pulse Rate 95 92 92 Pulse Rate [Left P ulse Oximeter] Pulse Rate [Pulse Oximeter] Respiratory Rate Blood Pressure 105/36 L 103/65 Blood Pressure [Ri ght Arm] Blood Pressure [Ri ght Upper Arm] Pulse Oximetry 94 94 96 Oxygen Delivery Me thod Oxygen Flow Rate 12/18/22 21:00 12/18/22 21:03 12/18/22 21:04 Temperature Pulse Rate 93 92 93 Pulse Rate [Left P ulse Oximeter] Pulse Rate [Pulse Oximeter] Respiratory Rate Blood Pressure 134/53 L Blood Pressure [Ri ght Arm] Blood Pressure [Ri ght Upper Arm] Pulse Oximetry 100 100 100 Oxygen Delivery Me thod Nasal Cannula Oxygen Flow Rate 2 12/18/22 21:30 12/18/22 21:32 12/18/22 22:40 Temperature 97.6 F Pulse Rate 90 90 Pulse Rate [Left P ulse Oximeter] Pulse Rate [Pulse Oximeter] Respiratory Rate 18 Blood Pressure 141/47 H Blood Pressure [Ri ght Arm] Blood Pressure [Ri ght Upper Arm] Pulse Oximetry 100 100 92 Oxygen Delivery Me thod Nasal Cannula Room Air Oxygen Flow Rate 2 12/18/22 22:40 12/18/22 22:59 12/18/22 23:00 Temperature Pulse Rate 85 Pulse Rate [Left P ulse Oximeter] Pulse Rate [Pulse Oximeter] Respiratory Rate 18 Blood Pressure Blood Pressure [Ri ght Arm] Blood Pressure [Ri ght Upper Arm] Pulse Oximetry 92 92 Oxygen Delivery Me thod Room Air Room Air Oxygen Flow Rate 2 12/19/22 00:00 12/19/22 03:14 12/19/22 04:00 Temperature 97.8 F Pulse Rate Pulse Rate [Left P ulse Oximeter] 84 85 78 Pulse Rate [Pulse Oximeter] Respiratory Rate 20 20 20 Blood Pressure Blood Pressure [Ri ght Arm] 112/43 L Blood Pressure [Ri ght Upper Arm] Pulse Oximetry 94 88 88 Oxygen Delivery Me thod Room Air Room Air Room Air Oxygen Flow Rate 12/19/22 06:00 12/19/22 07:00 12/19/22 07:00 Temperature Pulse Rate Pulse Rate [Left P ulse Oximeter] 80 Pulse Rate [Pulse Oximeter] Respiratory Rate 20 18 Blood Pressure Blood Pressure [Ri ght Arm] 115/39 L Blood Pressure [Ri ght Upper Arm] Pulse Oximetry 93 90 Oxygen Delivery Me thod Room Air Room Air Oxygen Flow Rate 12/19/22 07:00 12/19/22 08:00 Temperature 97.9 F Pulse Rate 77 Pulse Rate [Left P ulse Oximeter] 77 Pulse Rate [Pulse Oximeter] Respiratory Rate 20 Blood Pressure Blood Pressure [Ri ght Arm] 101/48 L Blood Pressure [Ri ght Upper Arm] Pulse Oximetry 93 Oxygen Delivery Me thod Room Air Oxygen Flow Rate Labs Labs: Laboratory Results - last 24 hr 12/18/22 12/18/22 12/18/22 11:20 19:20 19:55 WBC 9.05 RBC 3.89 L Hgb 11.4 L Hct 37.8 MCV 97 MCH 29 MCHC 30 L RDW Coeff of Stefan 13.4 Plt Count 283 Neut % (Auto) 88.9 H Lymph % (Auto) 6.5 L Richardson % (Auto) 4.2 Eos % (Auto) 0.1 Baso % (Auto) 0.2 Neut # (Auto) 8.00 H Lymph # (Auto) 0.60 L Richardson # (Auto) 0.40 Eos # (Auto) 0.01 Baso # (Auto) 0.02 VBG pH 7.228 L* VBG pCO2 47 VBG pO2 33.9 VBG HCO3 20 L Sodium 123 L* Potassium 6.8 H* Chloride 86 L Carbon Dioxide 19 L BUN 47 H Creatinine 2.2 H Estimated Creat Clear 19.29 Estimated GFR 25 Glucose 1082 H* Hemoglobin A1c Lactate Calcium 9.0 Phosphorus Magnesium Total Bilirubin AST ALT Alkaline Phosphatase Troponin I < 0.01 L NT-Pro-B Natriuret Pep 1810 Total Protein Albumin Procalcitonin 3.81 H Urine Color Yellow Urine Appearance Cloudy A Urine pH 5.0 Ur Specific Beverly 1.025 Urine Protein 2+ A Urine Glucose (UA) 2+ A Urine Ketones 1+ A Urine Blood 2+ A Urine Nitrite Negative Urine Bilirubin 2+ A Urine Urobilinogen 0.2 Ur Leukocyte Esterase 3+ A Urine RBC 2-5 A Urine WBC 50-100 A Ur Squamous Epith Cells Few Urine Bacteria Moderate A Lab Acknowledgement Test Added 12/18/22 12/18/22 12/18/22 19:57 20:45 22:28 WBC RBC Hgb Hct MCV MCH MCHC RDW Coeff of Stefan Plt Count Neut % (Auto) Lymph % (Auto) Richardson % (Auto) Eos % (Auto) Baso % (Auto) Neut # (Auto) Lymph # (Auto) Richardson # (Auto) Eos # (Auto) Baso # (Auto) VBG pH 7.183 L* 7.217 L* VBG pCO2 48 47 VBG pO2 55.3 H 40.4 VBG HCO3 18 L 19 L Sodium 127 L Potassium 5.6 H Chloride 91 L Carbon Dioxide 17 L BUN 49 H Creatinine 2.2 H Estimated Creat Clear 19.29 Estimated GFR 25 Glucose 1054 H* 893 H* Hemoglobin A1c Lactate Calcium 8.6 Phosphorus 6.7 H* Magnesium 2.2 Total Bilirubin AST ALT Alkaline Phosphatase Troponin I NT-Pro-B Natriuret Pep Total Protein Albumin 3.7 Procalcitonin Urine Color Urine Appearance Urine pH Ur Specific Beverly Urine Protein Urine Glucose (UA) Urine Ketones Urine Blood Urine Nitrite Urine Bilirubin Urine Urobilinogen Ur Leukocyte Esterase Urine RBC Urine WBC Ur Squamous Epith Cells Urine Bacteria Lab Acknowledgement New Spec Needed 12/18/22 12/19/22 12/19/22 23:30 01:20 03:20 WBC RBC Hgb Hct MCV MCH MCHC RDW Coeff of Stefan Plt Count Neut % (Auto) Lymph % (Auto) Richardson % (Auto) Eos % (Auto) Baso % (Auto) Neut # (Auto) Lymph # (Auto) Richardson # (Auto) Eos # (Auto) Baso # (Auto) VBG pH 7.368 VBG pCO2 49 VBG pO2 36.6 VBG HCO3 28 Sodium 129 L Potassium 4.4 Chloride 96 Carbon Dioxide 27 BUN 52 H Creatinine 2.1 H Estimated Creat Clear 20.21 Estimated GFR 26 Glucose 787 H* 601 H* 503 H* Hemoglobin A1c Lactate Calcium 8.3 L Phosphorus 3.8 Magnesium Total Bilirubin AST ALT Alkaline Phosphatase Troponin I NT-Pro-B Natriuret Pep Total Protein Albumin 3.3 Procalcitonin Urine Color Urine Appearance Urine pH Ur Specific Beverly Urine Protein Urine Glucose (UA) Urine Ketones Urine Blood Urine Nitrite Urine Bilirubin Urine Urobilinogen Ur Leukocyte Esterase Urine RBC Urine WBC Ur Squamous Epith Cells Urine Bacteria Lab Acknowledgement 12/19/22 12/19/22 12/19/22 05:43 06:10 11:23 WBC 7.72 RBC 3.51 L Hgb 10.3 L Hct 32.1 L MCV 92 MCH 29 MCHC 32 RDW Coeff of Stefan Plt Count 253 Neut % (Auto) Lymph % (Auto) Richardson % (Auto) Eos % (Auto) Baso % (Auto) Neut # (Auto) Lymph # (Auto) Richardson # (Auto) Eos # (Auto) Baso # (Auto) VBG pH 7.382 VBG pCO2 51 H VBG pO2 29.8 VBG HCO3 30 H Sodium 132 L Potassium 4.4 Chloride 99 Carbon Dioxide 29 BUN 53 H Creatinine 2.1 H Estimated Creat Clear 20.21 Estimated GFR 26 Glucose 275 H Hemoglobin A1c 9.16 H Lactate 2.8 H Calcium 8.5 Phosphorus 3.4 Magnesium 2.1 Total Bilirubin 0.3 AST 27 ALT 33 Alkaline Phosphatase 104 Troponin I NT-Pro-B Natriuret Pep 2870 Total Protein 6.5 Albumin 3.3 Procalcitonin Urine Color Urine Appearance Urine pH Ur Specific Beverly Urine Protein Urine Glucose (UA) Urine Ketones Urine Blood Urine Nitrite Urine Bilirubin Urine Urobilinogen Ur Leukocyte Esterase Urine RBC Urine WBC Ur Squamous Epith Cells Urine Bacteria Lab Acknowledgement Test Added
[2022-12-19] MEDS: cefTRIAXone 1 GM in 0.9 % SODIUM CHLORIDE Mini-bag 100 ML IVPB (14:16)
[2022-12-19 17:49] LABS: HCO3 VBG 25 mmol/L (21-28); Lactate* 2.4 mmol/L (0.5-1.9); PCO2 VBG 46 mmHG (40-50); PO2 VBG 29.8 mmHG (25-47); pH VBG 7.354 (7.32-7.43)
[2022-12-19] MEDS: AMOXICILLIN/CLAVULANATE 875 mg/125 mg TABLET PO (17:55)
[2022-12-19 18:06] LABS: Chloride* 99 mmol/L (96-114); Sodium* 128 mmol/L (135-149)
[2022-12-19 18:07] LABS: Potassium* 5.9 mmol/L (3.6-5.1)
[2022-12-19 18:09] LABS: Creatinine* 2.4 mg/dL (0.5-1.5); Est. Creatinine Clearance* 17.68; Estimated Glomerular Filt Rate 22 ml/min
[2022-12-19 18:10] LABS: Blood Urea Nitrogen* 51 mg/dL (7-30); Calcium* 8.1 mg/dL (8.4-10.6); Carbon Dioxide* 25 mmol/L (20-32)
[2022-12-19 18:18] LABS: Glucose* 462 mg/dL (60-115)
--- NOTE | 2022-12-19 18:45 | PC.NURSE ---
Insulin drip stopped this AM. Pt started on SQ fast/short acting insulin. Pt's blood sugar was up to [address] Keller called and order obtained for additional insulin with meal. Patient alert and oriented. Ambulates in the room with assist of 1 and walker. Up in the chair today. Tele shows NSR.
[2022-12-19] MEDS: OXYCODONE 5 MG TABLET PO (19:08)
[2022-12-19] MEDS: ACETAMINOPHEN 325 MG TABLET 650 MG PO (19:09)
[2022-12-19] MEDS: 0.9 % SODIUM CHLORIDE 1000 ml 1,000 ML IV ×2 (19:15→20:20)
[2022-12-19 21:22] LABS: HCO3 VBG 22 mmol/L (21-28); Lactate* 3.7 mmol/L (0.5-1.9); PCO2 VBG 45 mmHG (40-50); PO2 VBG 36.8 mmHG (25-47)
[2022-12-19] MEDS: PREGABALIN 50 MG CAPSULE 150 MG PO (21:30)
[2022-12-19] MEDS: AMLODIPINE 5 MG TABLET 2.5 MG PO (21:32)
[2022-12-19] MEDS: SODIUM CHLORIDE 0.9 % (FLUSH) 10 ML SYRINGE 5 ML IVF (21:33)
[2022-12-19 21:40] LABS: Albumin* 3.5 g/dL (3.3-5.0); Chloride* 104 mmol/L (96-114); Potassium* 4.4 mmol/L (3.6-5.1); Sodium* 131 mmol/L (135-149)
[2022-12-19 21:43] LABS: Blood Urea Nitrogen* 47 mg/dL (7-30); Carbon Dioxide* 22 mmol/L (20-32); Creatinine* 2.3 mg/dL (0.5-1.5); Est. Creatinine Clearance* 18.45; Estimated Glomerular Filt Rate 24 ml/min; Phosphorus* 2.9 mg/dL (2.5-4.5)
[2022-12-19 21:44] LABS: Calcium* 7.9 mg/dL (8.4-10.6)
[2022-12-19 21:49] LABS: Glucose* 386 mg/dL (60-115)
[2022-12-19] MEDS: ACETAMINOPHEN 650 MG TABLET ER 1300 MG PO (22:08)
[2022-12-20] VITALS (7 sets, daily range): BP systolic 107–146; BP diastolic 40–71; PULSE 72–90; RESP 16–18; TEMP 36.6–36.8; O2SAT 92–95
[2022-12-20 06:09] LABS: HCO3 VBG 29 mmol/L (21-28); PCO2 VBG 55 mmHG (40-50); PO2 VBG 22.6 mmHG (25-47); pH VBG 7.327 (7.32-7.43)
[2022-12-20 06:21] LABS: Hematocrit 30.9 % (33.0-51.0); Hemoglobin* 9.8 gm/dL (12.0-16.0); Mean Corpuscular HGB Conc 32 gm/dL (32-36); Mean Corpuscular Hemoglobin 30 pg (26-34); Mean Corpuscular Volume 93 fL (80-100); Platelet Count* 228 K/uL (140-440); Red Blood Count 3.31 m/uL (4.00-5.20); White Blood Count* 5.22 K/uL (4.50-11.00)
--- NOTE | 2022-12-20 06:21 | PC.NURSE ---
Addendum entered by Coleman Cox RN 12/20/22 06:51: Weight this morning 228.3 up around 15 pounds since admission, lungs clear on ra. Addendum entered by Coleman Cox RN 12/20/22 06:45: Noted lab glucose 57, apple juice nicho crackers and pb provided, pt currently a&ox3 up brushing her teeth. Original Note: : Pt's glucose was 401 at bedtime, updated and another 20 units insulin given, came down to 261 then 107 and had a snack. Pt wasn't ordered iv fluids after the 2 Liters bolus thus was sl, po encouraged, her lactate was 3.7 prior to finishing the bolus's this morning it's normal. VSS on RA. Tele nsr.
[2022-12-20 06:23] LABS: Slide Review Reflex No
[2022-12-20] MEDS: ACETAMINOPHEN 650 MG TABLET ER 1300 MG PO ×2 (06:25→21:02)
[2022-12-20 06:32] LABS: Chloride* 107 mmol/L (96-114); Potassium* 4.4 mmol/L (3.6-5.1); Sodium* 136 mmol/L (135-149)
[2022-12-20 06:35] LABS: Blood Urea Nitrogen* 48 mg/dL (7-30); Creatinine* 2.1 mg/dL (0.5-1.5); Est. Creatinine Clearance* 20.21; Estimated Glomerular Filt Rate 26 ml/min; Glucose* 57 mg/dL (60-115)
[2022-12-20 06:36] LABS: Calcium* 8.4 mg/dL (8.4-10.6); Magnesium* 2.1 mg/dL (1.5-2.6)
[2022-12-20] MEDS: AMOXICILLIN/CLAVULANATE 875 mg/125 mg TABLET PO (08:13)
[2022-12-20] MEDS: OXYCODONE 5 MG TABLET PO (08:13)
--- NOTE | 2022-12-20 09:04 | NUTR.NU ---
RDN did not see patient for Diabetes Education as RDN visited with patient for Diabetes Education on 10/13/22. RDN will continue to monitor as needed.
--- NOTE | 2022-12-20 09:16 | PM.IMPN1 ---
Progress Note: A&P Assessment and plan (1) Diabetic ketoacidosis: Problem details: - Off of insulin gtt x24 hours on 12/20, gap closed and lactate has normalized - continue home dose of insulin - UTI presumed source, but negative culture; poor compliance to DM regimen also likely contributing Status: Acute (2) UTI (urinary tract infection): Problem details: - treated with 1 g Rocephin x1, then transitioned to Augmentin b.i.d. with food - stop abx on 12/20 given no source of infection at this time Status: Acute (3) Acute kidney injury: Problem details: - outpatient creatinine 1.4-1.5, creatinine 2.4 on admission - follow closely Status: Acute (4) Alteration in fluid balance: Problem details: - patient has increased in weight, was on IVFs and insulin gtt in addition to home dose of Torsemide - off of IVFs as of 12/20, continue to follow renal function, Is/Os, daily weights Status: Acute (5) Acute hyperkalemia: Problem details: - resolved Status: Acute (6) Pseudohyponatremia: Problem details: - resolved Status: Resolved (7) Diabetes type I: Problem details: - A1c 9.1 Status: Acute Plan - per above - Lovenox for ppx - likely home with resumption of HH when medically stable, possibly as early as tomorrow Subjective Date Seen: 12/20/22 Interval history: Kati is feeling better today. Her lactate and pH have remained normal, creatinine continuing to improve (2.4 on admission, 2.1 today; outpatient baseline 1.4), electrolytes normal. She remains afebrile and on room air. Blood cultures are negative, urine culture exhibits >100k mixed G+ oni. Blood sugars continue to fluctuate greatly (50s-400s). She is amenable to initiating therapies today. Exam Narrative: Exam Narrative: GEN: Alert and eating breakfast, answering questions appropriately CV: RRR, soft systolic murmur without concerning features R: LCTA bilaterally without concerning wheezing, air movement adequate Skin: No concerning skin lesions or rashes on exposed skin Neuro: No focal deficits noted on limited exam, gait not observed Psych: Appropriate Const: Vital Signs, click to edit/add: Vital Signs - 24 hr 12/19/22 10:00 12/19/22 12:00 12/19/22 14:00 Temperature 97.9 F 98.3 F 98.5 F Pulse Rate Pulse Rate [Left P ulse Oximeter] 78 88 93 Respiratory Rate 18 18 18 Blood Pressure [Ri ght Arm] 112/50 L 121/53 L 138/47 L Pulse Oximetry 92 91 93 Oxygen Delivery Me thod Room Air Room Air Room Air 12/19/22 15:00 12/19/22 15:00 12/19/22 15:00 Temperature Pulse Rate 84 Pulse Rate [Left P ulse Oximeter] 93 Respiratory Rate 18 18 Blood Pressure [Ri ght Arm] Pulse Oximetry 94 Oxygen Delivery Sd thod Room Air 12/19/22 21:00 12/19/22 22:53 12/19/22 22:55 Temperature 98.3 F Pulse Rate 81 Pulse Rate [Left P ulse Oximeter] 83 83 Respiratory Rate 18 18 Blood Pressure [Ri ght Arm] 128/40 L Pulse Oximetry 91 Oxygen Delivery Sd thod Room Air 12/19/22 22:55 12/19/22 23:13 12/20/22 03:02 Temperature 98 F 98.2 F Pulse Rate Pulse Rate [Left P ulse Oximeter] 80 80 Respiratory Rate 18 18 18 Blood Pressure [Ri ght Arm] 128/54 L 107/40 L Pulse Oximetry 91 91 94 Oxygen Delivery Sd thod Room Air Room Air Room Air 12/20/22 07:00 12/20/22 07:00 Temperature 98.0 F Pulse Rate Pulse Rate [Left P ulse Oximeter] 78 Respiratory Rate 18 18 Blood Pressure [Ri ght Arm] 139/61 Pulse Oximetry 95 95 Oxygen Delivery Sd thod Room Air Room Air Labs Labs: Laboratory Results - last 24 hr 12/18/22 12/19/22 12/19/22 11:20 06:10 11:23 WBC RBC Hgb Hct MCV MCH MCHC Plt Count VBG pH VBG pCO2 VBG pO2 VBG HCO3 Sodium Potassium Chloride Carbon Dioxide BUN Creatinine Estimated Creat Clear Estimated GFR Glucose Hemoglobin A1c 9.16 H Lactate Calcium Phosphorus Magnesium Albumin Urine Color Yellow Urine Appearance Cloudy A Urine pH 5.0 Ur Specific [place] 1.025 Urine Protein 2+ A Urine Glucose (UA) 2+ A Urine Ketones 1+ A Urine Blood 2+ A Urine Nitrite Negative Urine Bilirubin 2+ A Urine Urobilinogen 0.2 Ur Leukocyte Esterase 3+ A Urine RBC 2-5 A Urine WBC 50-100 A Ur Squamous Epith Cells Few Urine Bacteria Moderate A Lab Acknowledgement Test Added 12/19/22 12/19/22 12/20/22 17:45 21:18 05:55 WBC 5.22 RBC 3.31 L Hgb 9.8 L Hct 30.9 L MCV 93 MCH 30 MCHC 32 Plt Count 228 VBG pH 7.354 7.300 L 7.327 VBG pCO2 46 45 55 H VBG pO2 29.8 36.8 22.6 L VBG HCO3 25 22 29 H Sodium 128 L 131 L 136 Potassium 5.9 H 4.4 4.4 Chloride 99 104 107 Carbon Dioxide 25 22 BUN 51 H 47 H 48 H Creatinine 2.4 H 2.3 H 2.1 H Estimated Creat Clear 17.68 18.45 20.21 Estimated GFR 22 24 26 Glucose 462 H* 386 H* 57 L Hemoglobin A1c Lactate 2.4 H 3.7 H 1.0 Calcium 8.1 L 7.9 L 8.4 Phosphorus 2.9 Magnesium 2.1 Albumin 3.5 Urine Color Urine Appearance Urine pH Ur Specific [place] Urine Protein Urine Glucose (UA) Urine Ketones Urine Blood Urine Nitrite Urine Bilirubin Urine Urobilinogen Ur Leukocyte Esterase Urine RBC Urine WBC Ur Squamous Epith Cells Urine Bacteria Lab Acknowledgement
[2022-12-20] MEDS: TORSEMIDE 20 MG TABLET 40 MG PO (09:37)
[2022-12-20] MEDS: PREGABALIN 100 MG CAPSULE 200 MG PO (09:37)
[2022-12-20] MEDS: polyethylene glycoL 3350 17 GM PACK PO (09:37)
[2022-12-20] MEDS: METOPROLOL SUCCINATE (XL) 25 MG TAB PO (09:38)
[2022-12-20] MEDS: SENNOSIDES/DOCUSATE TABLET 2 TAB PO (09:38)
[2022-12-20] MEDS: DULOXETINE 30 MG CAPSULE DR 60 MG PO (09:38)
[2022-12-20] MEDS: OMEPRAZOLE 20 MG CAPSULE DR PO (09:38)
[2022-12-20] MEDS: SODIUM CHLORIDE 0.9 % (FLUSH) 10 ML SYRINGE 5 ML IVF ×2 (09:39→21:01)
[2022-12-20] MEDS: AMLODIPINE 5 MG TABLET 2.5 MG PO ×2 (09:39→21:02)
[2022-12-20] MEDS: ENOXAPARIN 30 MG/0.3ML INJ SUBCUT ×2 (09:39→21:02)
--- NOTE | 2022-12-20 10:31 | PC.SOCIAL ---
Discharge planning: Called [facility] and confirmed pt is currently on service with them and receiving 1/week nursing for medication management and 3/week home health aid. floor worker to follow up with discharge planning as needed.
[2022-12-20 11:03] LABS: Carbon Dioxide* 29 mmol/L (20-32)
--- NOTE | 2022-12-20 19:31 | PC.NURSE ---
End of shift-- Very pleasant and cooperative, alert and oriented patient. VSS and pt is afebrile. SPO2 maintained >93% on RA. She c/o some pain in her right knee and left thigh today that appears well managed with scheduled Tylenol and Oxycodone as needed. BS 100, 155 and 89 today and pt was given scheduled Novolog per sliding scale. She was given apple juice this evening and ate 100% of three meals today. She denied nausea, but did c/o loose stools this evening. LS CTA. Telemetry shows NSR. She was up to BR and chair with SBA and walker and tolerated it very well. Report to LOS Rios.
[2022-12-20] MEDS: PREGABALIN 50 MG CAPSULE 150 MG PO (21:02)
[2022-12-21 03:00] VITALS: BP 162/57; PULSE 82; RESP 16; TEMP 36.7; O2SAT 95
--- NOTE | 2022-12-21 05:28 | PC.NURSE ---
Shift note: Pt is doing with ambulating with A1 walker and GB. Pt complained of diarrhea 3x yesterday and was asking for Imodium. Nurse reviewed pt's medication list and found out the pat was given mirelax and Senna tab in the morning and could possibly a therapeutic effect from those medications. Pt educated about the possible cause of the loose stool and nurse continued to observe patient. Scheduled Senna and Mirelax at 2100 were held. No loose BM recorded tonight. Vitally stable. Pt had adequate sleep. Alert and oriented. Pleasant and cooperate with care and treatment.
[2022-12-21] MEDS: ACETAMINOPHEN 650 MG TABLET ER 1300 MG PO (06:02)
[2022-12-21 07:01] LABS: Ionized Calcium* 1.19 mmol/L (1.11-1.30)
[2022-12-21 07:11] LABS: Basophils Percent Auto 0.3 % (0.0-3.0); Eosinophils Percent Auto 7.8 % (0.0-7.0); Hematocrit 37.4 % (33.0-51.0); Hemoglobin* 11.9 gm/dL (12.0-16.0); Immature Granulocytes Pct Auto 0.3 %; Lymphocytes Percent Auto 41.1 % (20-44); Mean Corpuscular HGB Conc 32 gm/dL (32-36); Mean Corpuscular Hemoglobin 29 pg (26-34); Mean Corpuscular Volume 92 fL (80-100); Monocytes Percent Auto 9.7 % (0.0-11.0); Neutrophils Percent Auto 40.8 % (42.0-72.0); Platelet Count* 249 K/uL (140-440); Red Blood Count 4.06 m/uL (4.00-5.20); White Blood Count* 3.72 K/uL (4.50-11.00)
[2022-12-21 07:19] LABS: Slide Review Reflex No
[2022-12-21 07:38] LABS: Chloride* 104 mmol/L (96-114); Potassium* 4.2 mmol/L (3.6-5.1); Sodium* 140 mmol/L (135-149)
[2022-12-21 07:41] LABS: Blood Urea Nitrogen* 34 mg/dL (7-30); Carbon Dioxide* 34 mmol/L (20-32); Creatinine* 1.5 mg/dL (0.5-1.5); Est. Creatinine Clearance* 28.29; Estimated Glomerular Filt Rate 39 ml/min; Glucose* 114 mg/dL (60-115)
[2022-12-21 07:42] LABS: Calcium* 9.6 mg/dL (8.4-10.6); Phosphorus* 4.1 mg/dL (2.5-4.5)
[2022-12-21 08:29] VITALS: BP 149/76; PULSE 71; PULSE 77; RESP 14; TEMP 36.4; O2SAT 90
[2022-12-21] MEDS: TORSEMIDE 20 MG TABLET 40 MG PO (08:47)
[2022-12-21] MEDS: AMLODIPINE 5 MG TABLET 2.5 MG PO (08:47)
[2022-12-21] MEDS: PREGABALIN 100 MG CAPSULE 200 MG PO (08:48)
[2022-12-21] MEDS: METOPROLOL SUCCINATE (XL) 25 MG TAB PO (08:48)
[2022-12-21] MEDS: OMEPRAZOLE 20 MG CAPSULE DR PO (08:48)
[2022-12-21] MEDS: DULOXETINE 30 MG CAPSULE DR 60 MG PO (08:48)
[2022-12-21] MEDS: SODIUM CHLORIDE 0.9 % (FLUSH) 10 ML SYRINGE 5 ML IVF (08:50)
--- NOTE | 2022-12-21 09:57 | P.DS_ITS ---
DS: Providers Provider Date Seen: 12/21/22 Date of admission: 12/18/22 21:51 Primary care physician: Shania Montiel MD Admitting Clinician: Christiano Keller MD Consults: OT and PT Attending Physician on discharge: Saritha Gamez MD Date of Discharge: 12/21/22 DS: Diagnosis Discharge Diagnosis (1) Diabetic ketoacidosis: Status: Acute Problem details: - patient transitioned off of insulin gtt soon after admission, gap closed and lactate normalized - UTI presumed source, but negative culture; poor compliance to DM regimen also likely contributing - patient noted to have elevated postprandial BG, hypoglycemia overnight; increased mealtime Novolog and decreased HS Levemir with close f/u recommended (2) UTI (urinary tract infection): Status: Acute Problem details: - treated with 1 g Rocephin x1, then transitioned to Augmentin b.i.d. with food - stopped abx on 12/20 given no source of infection; patient remained stable and afebrile for 24 hours and was medically appropriate for d/c home on 12/21 (3) Acute kidney injury: Status: Acute Problem details: - outpatient creatinine 1.4-1.5, creatinine 2.4 on admission; improved to 1.5 on day of discharge (4) Acute hyperkalemia: Status: Acute Problem details: - resolved (5) Pseudohyponatremia: Status: Resolved Problem details: - resolved (6) Diabetes type I: Status: Acute Problem details: - A1c 9.1 DS: Summary Hospital Course Hospital Course: 62 yo female with history of T1DM, admitted to the hospital in DKA. She was able to transition off of insulin gtt within one day of admission with reassuring lactate. UTI presumable source; however, both urine and blood cultures negative. Abx discontinued on hospital day #2 and patient remained stable, appropriate for d/c home on 12/21 with resumption of Home health care and close PCP f/u. Noted to have postprandial hyperglycemia and overnight hypoglycemia, so the following changes were made to her insulin regimen: DECREASE Levemir to 12U at night INCREASE Novolog to 8U with meals (go back to 5U if you're not having a carb- heavy meal) She will see her PCP for close interval f/u and will resume home care upon discharge. Status at Discharge Functional status at discharge: uses cane/walker Overall status at discharge: patient is progressing back to baseline Time Spent with Patient Time attestation: Total time spent providing and/or coordinating discharge services: Time spent: Greater than 30 minutes Specific discharge activities: Medication reconciliation, patient education Exam Narrative: Exam Narrative: GEN: Alert and laying comfortably in bed, answering questions appropriately HEENT: EOMIs bilaterally, no scleral icterus CV: RRR, soft systolic murmur without concerning features R: LCTA bilaterally without concerning wheezing, air movement adequate Ext: wwp, no concerning edema Skin: No concerning skin lesions or rashes on exposed skin Neuro: No focal deficits Psych: Appropriate Const: Vital Signs, click to edit/add: Vital Signs - 24 hr 12/20/22 11:00 12/20/22 15:00 12/20/22 15:00 Temperature 98.2 F 97.9 F Pulse Rate 84 Pulse Rate [Left P ulse Oximeter] 77 81 Respiratory Rate 18 16 Blood Pressure [Ri ght Arm] 141/63 H 146/71 H Blood Pressure [Ri ght Forearm] Pulse Oximetry 93 94 Oxygen Delivery Me thod Room Air Room Air 12/20/22 15:00 12/20/22 16:41 12/20/22 19:00 Temperature 98.1 F Pulse Rate Pulse Rate [Left P ulse Oximeter] 81 90 Respiratory Rate 16 16 16 Blood Pressure [Ri ght Arm] 140/57 H Blood Pressure [Ri ght Forearm] Pulse Oximetry 93 92 Oxygen Delivery Me thod Room Air Room Air 12/20/22 23:00 12/20/22 23:00 12/20/22 23:00 Temperature Pulse Rate 84 Pulse Rate [Left P ulse Oximeter] 81 Respiratory Rate 16 16 Blood Pressure [Ri ght Arm] Blood Pressure [Ri ght Forearm] Pulse Oximetry 94 Oxygen Delivery Me thod Room Air 12/20/22 23:00 12/21/22 03:00 12/21/22 08:29 Temperature 98.1 F 98.1 F 97.6 F Pulse Rate Pulse Rate [Left P ulse Oximeter] 90 82 71 Respiratory Rate 16 16 14 Blood Pressure [Ri ght Arm] 138/53 L 162/57 H Blood Pressure [Ri ght Forearm] 149/76 H Pulse Oximetry 94 95 90 Oxygen Delivery Me thod Room Air Room Air Room Air DS: Data Data Completed and Pending Completed studies during hospitalization: Procedures Insertion of Infusion Device into Right Internal Jugular Vein, Percutaneous Approach (10/11/22) Ultrasonography of Right Jugular Veins, Guidance (10/11/22) Labs on day of discharge: Labs from last 24 hours 12/21/22 12/20/22 06:31 05:55 WBC 3.72 L RBC 4.06 Hgb 11.9 L Hct 37.4 MCV 92 MCH 29 MCHC 32 RDW Coeff of Stefan 14.0 Plt Count 249 Neut % (Auto) 40.8 L Lymph % (Auto) 41.1 [place] % (Auto) 9.7 Eos % (Auto) 7.8 H Baso % (Auto) 0.3 Neut # (Auto) 1.50 L Lymph # (Auto) 1.50 [place] # (Auto) 0.40 Eos # (Auto) 0.30 Baso # (Auto) 0.00 Sodium 140 Potassium 4.2 Chloride 104 Carbon Dioxide 34 H 29 BUN 34 H Creatinine 1.5 Estimated Creat Clear 28.29 Estimated GFR 39 Glucose 114 Calcium 9.6 Ionized Calcium [place] 1.19 Phosphorus 4.1 Preliminary micro results at discharge 12/18/22 23:30 Blood Culture - Preliminary Blood NO GROWTH AFTER 48 HOURS 12/18/22 23:25 Blood Culture - Preliminary Blood NO GROWTH AFTER 48 HOURS Discharge Plan Discharge Disposition: Home, Self-Care Date of Admission: 12/18/22 21:51 Attending Provider on Discharge: Saritha Gamez Primary Care Provider: Shania Montiel Condition: Improved Anticipated Discharge Date/Time: 12/21/22 12:00 Discharge Medications: New insulin aspart U-100 [Novolog FlexPen U-100 Insulin] 100 unit/mL (3 mL) Insulin Pen 8 unit subcut TIDWM Qty: 15 0RF Levemir FlexPen 100 unit/mL (3 mL) Insulin Pen 12 unit subcut HS Qty: 15 0RF Continued atorvastatin 20 mg tablet 20 mg PO QPM torsemide 20 mg tablet 40 mg PO DAILY cetirizine 5 mg tablet 5 mg PO DAILY sennosides-docusate sodium [Stool Softener-Stimulant Laxat] 8.6-50 mg tablet 2 tab PO BID losartan 25 mg tablet 12.5 mg PO DAILY omeprazole 20 mg capsule,delayed release(DR/EC) 20 mg PO DAILY metoprolol succinate 25 mg tablet extended release 24 hr 25 mg PO DAILY oxycodone 5 mg tablet 5 mg PO BID PRN duloxetine 60 mg capsule,delayed release(DR/EC) 60 mg PO DAILY pregabalin 50 mg capsule 150 mg PO HS pregabalin 100 mg capsule 200 mg PO QAM cholecalciferol (vitamin D3) 50 mcg (2,000 unit) capsule 50 mcg PO DAILY buprenorphine 5 mcg/hour patch weekly 1 patch transdermal Q7D polyethylene glycol 3350 [Miralax] 17 gram/dose powder 17 g PO BID amlodipine 2.5 mg tablet 2.5 mg PO BID vitamin [id number]-[id number] acid 2,500-400 mcg tablet,disintegrating 1 tab PO DAILY acetaminophen 650 mg tablet extended release 1,300 mg PO Q8H Discontinued insulin aspart U-100 [Novolog FlexPen U-100 Insulin] 100 unit/mL (3 mL) insulin pen 5 unit subcut TIDWM Qty: 15 0RF Rx Instructions: with meals insulin glargine [Lantus Solostar U-100 Insulin] 100 unit/mL (3 mL) insulin pen 15 unit subcut HS Qty: 15 0RF Discharge Orders: Discharge Order (Routine); Ordered 12/21/22 Ordered By: Saritha Gamez Additional Instructions: You had some higher sugars after eating and lower overnight sugars while here, so we recommend these insulin changes: DECREASE Levemir to 12U at night INCREASE Novolog to 8U with meals (go back to 5U if you're not having a carb- heavy meal) No other medication changes. Activity Level: Activity as Tolerated Discharge Diet: Diabetic Follow Up Appointments: Shania Montiel MD [Primary Care Provider] - Barbara Valentin DO [Staff Physician] - 12/27/22 11:00 am ([facility] with Dr. Valentin for follow-up.) Forms: [employer] Info Instructions
[2022-12-21 10:46] VITALS: BP 141/47; PULSE 77; RESP 14; TEMP 36.4
[2022-12-21 11:00] VITALS: BP 169/86; PULSE 99; RESP 20; TEMP 36.6; O2SAT 99
[2022-12-21] MEDS: OXYCODONE 5 MG TABLET PO (13:25)
--- NOTE | 2022-12-21 13:38 | PC.SOCIAL ---
Pt. 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 Pt. also has a I&C TECH 6 days a week through her waiver program. Pt.'s [employer] requested pt.'s discharge summary be faxed to [phone], she will follow-up with pt. at discharge.
--- NOTE | 2022-12-21 14:52 | PC.NURSE ---
Discharge: Patient pleasant and cooperative. Patient vitally stable, lungs clear, BS WNL, IV's removed, catheters intact. Patient SBA walker. Patient rates knee pain 6-7/10, 5 oxy given once. Patient tolerating regular diet, urinating, and had 1 loose BM. Patient signed belongings sheet and discharge form. Patient left the floor by wheelchair at 1448 to home.
== END 2022-12-21 14:48 | disposition home or self-care (01) | DRG 638 ==
LOC: ED 20:47 → MEDSURG 21:51
PROVIDERS: Family Medicine; Admitting Provider Internal Medicine; Emergency Provider Emergency Medicine Emergency Medical Services; PCP Family Medicine; Visit Provider Internal Medicine
DX: E10.10 Type 1 diabetes mellitus with ketoacidosis without coma (principal); E87.1 Hypo-osmolality and hyponatremia; N39.0 Urinary tract infection, site not specified; N17.9 Acute kidney failure, unspecified; I13.0 Hypertensive heart and chronic kidney disease with heart failure and stage 1 through stage 4 chronic kidney disease, or unspecified chronic kidney disease; Z68.41 Body mass index [BMI] 40.0-44.9, adult; E87.5 Hyperkalemia; E66.01 Morbid (severe) obesity due to excess calories; E10.610 Type 1 diabetes mellitus with diabetic neuropathic arthropathy; E10.319 Type 1 diabetes mellitus with unspecified diabetic retinopathy without macular edema; E10.22 Type 1 diabetes mellitus with diabetic chronic kidney disease; J44.9 Chronic obstructive pulmonary disease, unspecified; Z79.4 Long term (current) use of insulin; I50.9 Heart failure, unspecified; N18.1 Chronic kidney disease, stage 1; G47.30 Sleep apnea, unspecified; F32.A Depression, unspecified; E07.9 Disorder of thyroid, unspecified; E78.5 Hyperlipidemia, unspecified
CPT/HCPCS: 36415; 71045; 80048; 80053; 80069; 81001; 82330; 82803; 82947; 82962; 83036; 83605; 83735; 83880; 84100; 84145; 84484; 85025; 85027; 87040; 87086; 93005; 97116; 97162; 97165; 99285; A9270; J0696; J1650; J3480; J3590; J7030; J7042; J7120

== ENCOUNTER 2023-05-24 09:15 | Outpatient (CLI) | payer OTHER, SELFPAY | END 2023-05-24 09:16 | disposition home or self-care (01) | LOC: AMB 10:53 | PROVIDERS: PCP Family Medicine; Visit Provider Family Medicine | DX: E11.649 Type 2 diabetes mellitus with hypoglycemia without coma (principal) | CPT/HCPCS: A0998 ==

== ENCOUNTER 2023-05-25 04:53 | Outpatient (CLI) | payer OTHER, SELFPAY | END 2023-05-25 04:54 | disposition home or self-care (01) | LOC: AMB 13:06 | PROVIDERS: PCP Family Medicine; Visit Provider Family Medicine | DX: E11.649 Type 2 diabetes mellitus with hypoglycemia without coma (principal) | CPT/HCPCS: A0425; A0427 ==

== ENCOUNTER 2023-05-25 05:51 | Emergency (ER) | payer OTHER, SELFPAY ==
[2023-05-25] VITALS (17 sets, daily range): BP systolic 107–160; BP diastolic 56–76; PULSE 58–78; RESP 16–18; TEMP 35.8–36.9; O2SAT 91–100; BMI 35.4
--- NOTE | 2023-05-25 06:35 | ED.GENADULT ---
HPI - General Adult General Date Seen: 05/25/23 Chief complaint: Diabetic Related Problem Stated complaint: Low blood sugar Time Seen by Provider: 05/25/23 05:57 Source: patient and EMS Mode of arrival: EMS Limitations: no limitations History of Present Illness HPI narrative: Patient is an 62-year-old female brought in by EMS for low blood sugar. They were called to her home and she was found the blood sugar in the low 50s. She was given oral glucose but was somewhat combative. When her sugar remained in the 60s she is given IM glucagon. She continued to be combative and was given 2 mg of Versed. Blood sugar on arrival here is 121. She is now somnolent. She clearly has obstructive sleep apnea and I am not certain if she uses CPAP at home. She is well-known to ER staff but has not been here in over five months. She has no explanation for why her sugar got so low. She did eat dinner last night. She took her normal insulin dose. She does not recall her last clinic visit. Related Data Home Medications Medication Instructions Recorded Confirmed amlodipine 2.5 mg tablet 2.5 mg PO BID 10/11/22 05/25/23 atorvastatin 20 mg tablet 20 mg PO QPM 10/11/22 05/25/23 buprenorphine 5 mcg/hour weekly 1 patch transdermal Q7D 10/11/22 05/25/23 transdermal patch cetirizine 5 mg tablet 5 mg PO DAILY 10/11/22 05/25/23 cholecalciferol (vitamin D3) 50 50 mcg PO DAILY 10/11/22 05/25/23 mcg (2,000 unit) capsule duloxetine 60 mg capsule,delayed 60 mg PO DAILY 10/11/22 05/25/23 release losartan 25 mg tablet 12.5 mg PO DAILY 10/11/22 05/25/23 metoprolol succinate 25 mg 25 mg PO DAILY 10/11/22 05/25/23 tablet,extended release 24 hr omeprazole 20 mg capsule,delayed 20 mg PO DAILY 10/11/22 05/25/23 release oxycodone 5 mg tablet 5 mg PO BID PRN 10/11/22 05/25/23 polyethylene glycol 3350 17 17 g PO BID 10/11/22 05/25/23 gram/dose oral powder (Miralax) pregabalin 100 mg capsule 200 mg PO QAM 10/11/22 05/25/23 pregabalin 50 mg capsule 150 mg PO HS 10/11/22 05/25/23 sennosides 8.6 mg-docusate sodium 2 tab PO BID 10/11/22 05/25/23 50 mg tablet (Stool Softener-Stimulant Laxative) torsemide 20 mg tablet 40 mg PO DAILY 10/11/22 05/25/23 vitamin B12 2,500 mcg-folic acid 1 tab PO DAILY 10/11/22 05/25/23 400 mcg disintegrating tablet acetaminophen 650 mg 1,300 mg PO Q8H 12/19/22 05/25/23 tablet,extended release insulin glargine 100 unit/mL (3 15 unit subcut QPM 05/25/23 05/25/23 mL) subcutaneous pen (Lantus Solostar U-100 Insulin) levothyroxine 125 mcg tablet 125 mcg PO DAILY 05/25/23 05/25/23 Previous Rx's Medication Instructions Recorded insulin aspart U-100 100 unit/mL 8 unit (0.08 mL) subcut TIDWM #15 12/21/22 (3 mL) subcutaneous pen (Novolog mL FlexPen U-100 Insulin aspart) Allergies Allergy/AdvReac Type Severity Reaction Status Date / Time No Known Drug Allergies Allergy Verified 05/25/23 06:04 Review of Systems Narrative: Unable to obtain from the patient as she is somnolent after a dose of Versed. [facility] Medical History (Updated 05/25/23 @ 08:41 by Coleman Holloway MD) Hypertension ?I10 - Essential (primary) hypertension (ICD-10) Diabetes type I ?E10.9 - Type 1 diabetes mellitus without complications (ICD-10) Hyperosmolar syndrome ?E87.0 - Hyperosmolality and hypernatremia (ICD-10) Sleep apnea ?G47.30 - Sleep apnea, unspecified (ICD-10) Ulnar neuropathy ?G56.20 - Lesion of ulnar nerve, unspecified upper limb (ICD-10) Hyperlipidemia ?E78.5 - Hyperlipidemia, unspecified (ICD-10) Morbid obesity ?E66.01 - Morbid (severe) obesity due to excess calories (ICD-10) GERD (gastroesophageal reflux disease) ?K21.9 - Gastro-esophageal reflux disease without esophagitis (ICD-10) 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 diabetic neuropathic arthropathy (ICD-10) Depressive disorder ?F32.A - Depression, unspecified (ICD-10) COPD (chronic obstructive pulmonary disease) ?J44.9 - Chronic obstructive pulmonary disease, unspecified (ICD-10) Congestive heart failure (CHF) ?I50.9 - Heart failure, unspecified (ICD-10) Chronic pain syndrome ?G89.4 - Chronic pain syndrome (ICD-10) Chronic kidney disease, stage 1 ?N18.1 - Chronic kidney disease, stage 1 (ICD-10) Carpal tunnel syndrome ?G56.00 - Carpal tunnel syndrome, unspecified upper limb (ICD-10) Diabetic retinopathy ?E11.319 - Type 2 diabetes mellitus with unspecified diabetic retinopathy without macular edema (ICD-10) Anemia of other chronic disease ?D63.8 - Anemia in other chronic diseases classified elsewhere (ICD-10) Acute respiratory failure ?J96.00 - Acute respiratory failure, unspecified whether with hypoxia or hypercapnia (ICD-10) Surgical History History of thyroidectomy ?E89.0 - Postprocedural hypothyroidism (ICD-10) History of hip replacement ?Z96.649 - Presence of unspecified artificial hip joint (ICD-10) History of gastric bypass ?Z98.84 - Bariatric surgery status (ICD-10) History of section ?Z98.891 - History of uterine scar from previous surgery (ICD-10) Hx of cataract removal with insertion of prosthetic lens ?Z98.49 - Cataract extraction status, unspecified eye (ICD-10) ?Z96.1 - Presence of intraocular lens (ICD-10) History of carpal tunnel release ?Z98.890 - Other specified postprocedural states (ICD-10) History of knee replacement procedure of right knee ?Z96.651 - Presence of right artificial knee joint (ICD-10) Social History Narrative: Full Code. Lives with son Mitul, who would be medical decision maker if needed. What is your current living situation?: I presently have a place to live Problems where you live: no known problems Problems where you live details: no In the past 12 months, utilities in danger of being shut off: declined to answer In past 12 months, lack of transportation kept you from medical appts, meetings, work, or getting things needed for daily living: no In the past 12 mos, have been you worried that your food would run out before you had money to buy more?: declined to answer In the past 12 mos, the food you bought just didn't last and you didn't have money to buy more?: declined to answer Smoking Status: Never smoker Do you use any of these nicotine containing products: None Second hand tobacco smoke exposure: No How often do you have a drink containing alcohol: never AUDIT-C Alcohol total score: 0 Non-prescribed substance use: denies use How often does anyone, including family, friends and others, physically hurt you: never How often does anyone, including family, friends and others, insult or talk down to you: never How often does anyone, including family, friends and others, threaten you with harm: never How often does anyone, including family, friends and others, scream or curse at you: never Exam Narrative: Exam Narrative: Vitals noted. Oxygen saturations in the low 90s. HEENT: Conjunctiva clear. Tympanic membranes are pearly white bilaterally. Posterior pharynx is clear without erythema or exudate. Neck is supple without adenopathy, thyromegaly, carotid bruit. Lungs: Clear to auscultation in all briggs. No wheezes, rales, rhonchi. Heart: Regular rate and rhythm without murmur. Abdomen: Morbidly obese, Soft and nontender. No guarding, rigidity, rebound. Bowel sounds are normal. No palpable masses. Extremities: 1+ pitting edema. Good distal pulses. Skin: No abnormalities noted of the exposed skin. Neurologic: Sleepy but arousable to voice. Falls asleep mid sentence. She acknowledges stocking-glove distribution neuropathy. Const: Vital Signs, click to edit/add: Vital Signs - 24 hr 05/25/23 05:57 05/25/23 06:10 05/25/23 06:32 Temperature 98.5 F Pulse Rate 60 Pulse Rate [Right Pulse Oximeter] 78 Respiratory Rate 18 18 Blood Pressure 108/58 L Blood Pressure [Ri ght Upper Arm] 142/73 H Pulse Oximetry 95 95 91 Oxygen Delivery Me thod Room Air 05/25/23 06:33 05/25/23 07:00 05/25/23 07:02 Temperature Pulse Rate 59 L 58 L 58 L Pulse Rate [Right Pulse Oximeter] Respiratory Rate Blood Pressure 107/56 L Blood Pressure [Ri ght Upper Arm] Pulse Oximetry 91 92 92 Oxygen Delivery Me thod 05/25/23 07:30 05/25/23 07:31 05/25/23 08:00 Temperature Pulse Rate 59 L 59 L 63 Pulse Rate [Right Pulse Oximeter] Respiratory Rate Blood Pressure 116/60 Blood Pressure [Ri ght Upper Arm] Pulse Oximetry 100 97 93 Oxygen Delivery Me thod 05/25/23 08:02 05/25/23 08:19 Temperature 96.5 F L Pulse Rate 63 Pulse Rate [Right Pulse Oximeter] 63 Respiratory Rate 16 Blood Pressure 160/73 H Blood Pressure [Ri ght Upper Arm] Pulse Oximetry 94 93 Oxygen Delivery Me thod Room Air Course Course ED Course: Patient was seen and examined. Her glucose has been corrected. She is somnolent from the Versed given but does arouse easily. Labs are ordered and we will feed her breakfast once she wakes up. Reevaluation(s) Reevaluation #1: Her labs have returned showing a normal CBC. Basic metabolic panel shows worsening of her chronic kidney disease. Her BUN is 48 and her creatinine is 2.4. These need to be followed closely in the clinic. Her TSH is normal. Patient was fed breakfast and should be ready for discharge. Vital Signs Vital signs: Initial Vital Signs Temperature 98.5 F 05/25/23 05:57 Temperature Source Temporal Artery Scan 05/25/23 05:57 Pulse Rate 78 05/25/23 05:57 Respiratory Rate 18 05/25/23 05:57 Blood Pressure 142/73 H 05/25/23 05:57 Blood Pressure Mean 96 05/25/23 05:57 Blood Pressure Position Supine 05/25/23 05:57 Pulse Oximetry 95 05/25/23 05:57 Oxygen Delivery Method Room Air 05/25/23 05:57 Vital Signs Temperature 98.5 F 05/25/23 05:57 Pulse Rate 78 05/25/23 05:57 Respiratory Rate 18 05/25/23 05:57 Blood Pressure 142/73 H 05/25/23 05:57 Pulse Oximetry 95 05/25/23 05:57 Oxygen Delivery Method Room Air 05/25/23 05:57 Temperature 96.5 F L 05/25/23 08:19 Pulse Rate 63 05/25/23 08:19 Respiratory Rate 16 05/25/23 08:19 Blood Pressure 160/73 H 05/25/23 08:02 Pulse Oximetry 93 05/25/23 08:19 Oxygen Delivery Method Room Air 05/25/23 08:19 Medical Decision Making Lab Data Labs: Lab Results 05/25/23 Range/Units 06:40 WBC 5.72 (4.50-11.00) K/uL RBC 4.60 (4.00-5.20) m/uL Hgb 13.4 (12.0-16.0) gm/dL Hct 43.5 (33.0-51.0) % MCV 95 (80-100) fL MCH 29 (26-34) pg MCHC 31 L (32-36) gm/dL RDW Coeff of Stefan 13.1 (11.5-15.5) % Plt Count 260 (140-440) K/uL Neut % (Auto) 74.9 H (42.0-72.0) % Lymph % (Auto) 15.2 L (20-44) % [place] % (Auto) 6.5 (0.0-11.0) % Eos % (Auto) 2.8 (0.0-7.0) % Baso % (Auto) 0.3 (0.0-3.0) % Neut # (Auto) 4.30 (1.7-7.0) K/uL Lymph # (Auto) 0.90 (0.90-2.90) K/uL [place] # (Auto) 0.40 (0.00-0.90) K/UL Eos # (Auto) 0.16 (0.00-0.50) K/uL Baso # (Auto) 0.02 (0.00-0.30) K/uL Abs Immat Gran (auto) 0.02 (0.00-0.30) K/uL Imm/Tot Granulo (auto) 0.3 % Sodium 141 (135-149) mmol/L Potassium 4.1 (3.6-5.1) mmol/L Chloride 95 L (96-114) mmol/L Carbon Dioxide 36 H (20-32) mmol/L Anion Gap 10 (7-15) mEq/L BUN 48 H (7-30) mg/dL Creatinine 2.4 H (0.5-1.5) mg/dL Estimated Creat Clear 20.36 Estimated GFR 22 ml/min Glucose 235 H (60-115) mg/dL Calcium 9.5 (8.4-10.6) mg/dL TSH 1.020 (0.270-4.200) uIU/mL Discharge Plan Discharge Clinical Impression: Hypoglycemia due to type 1 diabetes mellitus, Chronic kidney disease (CKD) Patient Disposition: Home, Self-Care Condition: Improved Additional Instructions: Continue all of your current doses. Check her blood sugar before meals and at bedtime and right those numbers down. Follow-up with your PCP in one week. Bring your blood sugar log with you. Be cautious with your NovoLog dose today as you are at risk for having another hypoglycemic event in the next 48 hours. Your kidney function has worsened significantly since December and needs to be rechecked in the clinic. Prescriptions: No Action atorvastatin 20 mg tablet 20 mg PO QPM torsemide 20 mg tablet 40 mg PO DAILY cetirizine 5 mg tablet 5 mg PO DAILY sennosides-docusate sodium [Stool Softener-Stimulant Laxat] 8.6-50 mg tablet 2 tab PO BID losartan 25 mg tablet 12.5 mg PO DAILY omeprazole 20 mg capsule,delayed release(DR/EC) 20 mg PO DAILY metoprolol succinate 25 mg tablet extended release 24 hr 25 mg PO DAILY oxycodone 5 mg tablet 5 mg PO BID PRN duloxetine 60 mg capsule,delayed release(DR/EC) 60 mg PO DAILY pregabalin 50 mg capsule 150 mg PO HS pregabalin 100 mg capsule 200 mg PO QAM cholecalciferol (vitamin D3) 50 mcg (2,000 unit) capsule 50 mcg PO DAILY buprenorphine 5 mcg/hour patch weekly 1 patch transdermal Q7D polyethylene glycol 3350 [Miralax] 17 gram/dose powder 17 g PO BID amlodipine 2.5 mg tablet 2.5 mg PO BID vitamin D40-tdbkc acid 2,500-400 mcg tablet,disintegrating 1 tab PO DAILY levothyroxine 125 mcg tablet 125 mcg PO DAILY insulin glargine [Lantus Solostar U-100 Insulin] 100 unit/mL (3 mL) insulin pen 15 unit subcut QPM acetaminophen 650 mg tablet extended release 1,300 mg PO Q8H insulin aspart U-100 [Novolog FlexPen U-100 Insulin] 100 unit/mL (3 mL) Insulin Pen 8 unit subcut TIDWM Qty: 15 0RF Follow Up/Referrals: Shania Montiel MD [Primary Care Provider] - Stand Alone Forms: [facility] Info Instructions
[2023-05-25 06:55] LABS: Basophils Absolute Auto 0.02 K/uL (0.00-0.30); Basophils Percent Auto 0.3 % (0.0-3.0); Eosinophils Absolute Auto 0.16 K/uL (0.00-0.50); Eosinophils Percent Auto 2.8 % (0.0-7.0); Hematocrit 43.5 % (33.0-51.0); Hemoglobin* 13.4 gm/dL (12.0-16.0); Immature Granulocytes Abs Auto 0.02 K/uL (0.00-0.30); Immature Granulocytes Pct Auto 0.3 %; Lymphocytes Percent Auto 15.2 % (20-44); Mean Corpuscular HGB Conc 31 gm/dL (32-36); Mean Corpuscular Hemoglobin 29 pg (26-34); Mean Corpuscular Volume 95 fL (80-100); Monocytes Percent Auto 6.5 % (0.0-11.0); Neutrophils Percent Auto 74.9 % (42.0-72.0); Platelet Count* 260 K/uL (140-440); RDW Coefficient of Variation % 13.1 % (11.5-15.5); White Blood Count* 5.72 K/uL (4.50-11.00)
[2023-05-25 06:56] LABS: Slide Review Reflex No
[2023-05-25 07:09] LABS: Chloride* 95 mmol/L (96-114); Potassium* 4.1 mmol/L (3.6-5.1); Sodium* 141 mmol/L (135-149)
[2023-05-25 07:11] LABS: Creatinine* 2.4 mg/dL (0.5-1.5); Est. Creatinine Clearance* 20.36; Estimated Glomerular Filt Rate 22 ml/min
[2023-05-25 07:12] LABS: Anion Gap 10 mEq/L (7-15); Blood Urea Nitrogen* 48 mg/dL (7-30); Calcium* 9.5 mg/dL (8.4-10.6); Carbon Dioxide* 36 mmol/L (20-32); Glucose* 235 mg/dL (60-115)
--- NOTE | 2023-05-25 09:45 | ED.NURSE ---
was incontinent of urine. had 3 depends on-changed to 2 depends. assisted to chair. did eat breakfast-sausage, toast, banana. was changed into sweats.
--- NOTE | 2023-05-25 12:18 | ED.NURSE ---
was ok with not eating lunch as she just ate breakfast~1000. dr marquez was informed of bs of 289. she will eat at home and take her insulin as per routine. believes that her bs dipped due to not eating much of the chili she had last night as the beans had not been soaked long enough to expand and be easily digested.
== END 2023-05-25 13:37 | disposition home or self-care (01) ==
PROVIDERS: Emergency Provider Family Medicine; PCP Family Medicine
DX: E10.22 Type 1 diabetes mellitus with diabetic chronic kidney disease (principal); E10.649 Type 1 diabetes mellitus with hypoglycemia without coma; N18.9 Chronic kidney disease, unspecified
CPT/HCPCS: 36415; 80048; 82962; 84443; 85025; 94761; 99282; 99283; 99284

== ENCOUNTER 2023-09-29 21:03 | Outpatient (CLI) | payer OTHER, SELFPAY ==
--- OUTSIDE RECORDS SUMMARY | 2023-10-08 13:42 | XMS_ITS | Encounter Summary ---
Author Name Unknown Organization [facility] Address [address] [facility] [address] [place] [address] Care Team Providers Care Supervisor Spring Up Name Role Phone Barbara Valentin DO Primary Care Provider Kevin zepeda Encounter Details Date Type Department Care Team Description 09/22/2023 Documentation Only [facility] [place] [address] [facility] [address] [place] [address] No, Pcp Social History Tobacco Use Types Packs/Day Years Used Date Smoking Tobacco: Never Assessed Sex and Gender Information Value Date Recorded Sex Assigned at Not on file Gender Identity Not on file Sexual Orientation Not on file documented as of this encounter Plan of Treatment Not on file documented as of this encounter Visit Diagnoses Not on filedocumented in this encounter Care Teams Supervisor Spring Up Relationship Specialty Start Date End Date Barbara Valentin [place] [place] [address] PCP - General Family Medicine 09/22/23 documented as of this encounter
--- OUTSIDE RECORDS SUMMARY | 2023-10-08 13:42 | XMS_ITS | Encounter Summary ---
Author Name Unknown Organization [facility] Address [address] [place] [address] Care Team Providers Care Submarine Cable Equipment Technician Name Role Phone Barbara Valentin DO Primary Care Provider Kevin zepeda Encounter Details Date Type Department Care Team Description 09/23/2023 Office Communication [facility] [address] [place] [address] Barbara Valentin DO [address] [place] [address] Social History Tobacco Use Types Packs/Day Years Used Date Smoking Tobacco: Never Assessed Sex and Gender Information Value Date Recorded Sex Assigned at Not on file Gender Identity Not on file Sexual Orientation Not on file documented as of this encounter Miscellaneous Notes * Telephone Encounter - Jessika Urbano - 10/07/2023 4:22 PM CDT Called 2X Mailed New Patient Needs to Schedule Letter to the patient to schedule a new patient consultation per referral received from Barbara Valentin. * Telephone Encounter - Jessika Urbano - 09/23/2023 1:57 PM CDT Left message for the patient in regards to scheduling a New Patient consultation per the referral received from Barbara Valentin. documented in this encounter Plan of Treatment Not on file documented as of this encounter Visit Diagnoses Not on filedocumented in this encounter Care Teams Submarine Cable Equipment Technician Relationship Specialty Start Date End Date Barbara Valentin DO [address] [place] [address] PCP - General Family Medicine 09/22/23 documented as of this encounter
--- OUTSIDE RECORDS SUMMARY | 2023-10-08 13:42 | XMS_ITS | Clinical Summary ---
Author Name Unknown Organization [facility] Address [address] [place] [address] Phone Care Team Providers Care Behavioral Therapist Name Role Phone Barbara Valentin DO Primary Care Provider Kevin zepeda Encounters Date Type Department Care Team Description 09/23/2023 Office Communication [facility] [address] [place] [phone] Barbara Valentin DO 09/22/2023 Documentation Only [facility] [address] [place] [address] No, Pcp from Last 3 Months Social History Tobacco Use Types Packs/Day Years Used Date Smoking Tobacco: Never Assessed Sex and Gender Information Value Date Recorded Sex Assigned at Not on file Gender Identity Not on file Sexual Orientation Not on file Plan of Treatment Health Maintenance Due Date Last Done Comments Breast Cancer Screening 1961 Colorectal Cancer Screening: Annual FOBT 2010 Colorectal Cancer Screening: Colonoscopy 2010 Colorectal Cancer Screening: Sigmoidoscopy 2010 Diabetes: Ophthalmology Exam 09/22/2023 Diabetes: Pedal Pulse Checked 09/22/2023 Diabetes: Sensory Foot Exam 09/22/2023 Diabetes: Visual Foot Exam 09/22/2023 Diabetes: Hemoglobin A1C 12/22/2023 09/21/2023 Influenza Vaccine (Season Ended) 2024 04/28/2022, 04/28/2021, 03/18/2020, Additional history exists Pneumococcal Vaccine: Pediatrics (0 to 5 Years) and At-Risk Patients (6 to 64 Years) (4 of 4 - PPSV23 or PCV20) 2026 08/17/2016, 08/14/2014, 07/04/2005, Additional history exists Hepatitis B Vaccine Aged Out 08/17/2019, 02/06/2014, 12/06/2013 No longer eligible based on patient's age to complete this topic Care Teams Behavioral Therapist Relationship Specialty Start Date End Date Barbara Valentin DO [address] [place] [address] PCP - General Family Medicine 09/22/23
--- OUTSIDE RECORDS SUMMARY | 2023-10-08 13:42 | XMS_ITS | Clinical Summary ---
Author Name Unknown Organization [facility] Address [place], [place] [address] Care Team Providers Care Folder Inspector Name Role Phone Julio Ibrahim MD Unavailable Chuy Doss MD Unavailable [phone] RufusteMarkel meraz MD Unavailable [phone] Nikolai Ibarra MD Unavailable [phone] Barbara Valentin DO Primary Care Provider [phone] Allergies Active Allergy Reactions Criticality Noted Date Comments Aspirin 10/28/2009 Not able to take asa do to gastric bypass surgery Nsaids (Non-Steroidal Anti-Inflammatory Drug) Other - Describe In Comment Field 11/11/2008 Pt had gastric bypass surgery, should not take oral NSAIDS. Penicillins Anaphylaxis,Rash High 10/18/2017 Rash as a child Sulfa (Sulfonamide Antibiotics) Anaphylaxis High 11/19/2020 Medications Medication Sig Dispensed Refills Start Date End Date Status hydrocortisone 1 % creamIndications:R senthil APPLY TOPICALLY TO AFFECTED AREA(S) TWICE A DAY 28.4 g 08/23/19 21 Active insulin syringe-needle u-100 (UltiCare) 1 mL 31 gauge x 11/16Indications:Di abetes mellitus type 1 with complications (HC) For administering insulin at home.FOR ADMINISTERING INSULIN SUBCUTANEOUSLY AT HOME 100 Each 03/02/20 21 Active blood sugar diagnostic (P[employer] Express Test Strip) stripIndications:U ncontrolled type 1 diabetes mellitus with hyperglycemia (HC) Test blood sugar 4 times dialy. E10.65 IDDM type I, uncontrolled - Test 4 times/day. Reason: High A1C 0 03/02/20 21 Active Blood Pressure Test Kit-Wrist kitIndications:Ess ential hypertension As directed. 1 Each 03/12/20 Active Chair LiftIndications:Ot her closed fracture of femur, unspecified laterality, unspecified portion of femur, sequela For home use. 1 Each 03/12/20 Active glucagon (Baqsimi) 3 mg/actuation nasal sprayIndications:p atient with diabetes mellitus at risk of hypoglycemia Inhale 1 [place] into affected nostril(s) each time if needed for Severe Hypoglycemia. Roll on side and call 911 after administration. 2 Each 12/25/19 Active Underpads padsIndications:Ur inary incontinence, unspecified type As directed. 300 Each 1 12/31/19 Active miscellaneous medical supply miscIndications:Ur inary incontinence, unspecified type As directed. Wipe aide 1 unit 12/31/19 Active Elevated Toilet Seat with ArmsIndications:Ur inary incontinence, unspecified type For home use. 1 Each 12/31/19 Active fluticasone (50 mcg per actuation) nasal solution (FLONASE)Indicatio ns:Nasal congestion Inhale 1 [place] into affected nostril(s) once daily. Inhale 1 [place] in the nostril(s) once daily. 16 g 01/12/20 Active Walker - 4 wheelsIndications: Chronic pain syndrome,Foot drop, bilateral,Osteoart hritis of both hips, unspecified osteoarthritis type,Spinal cord lesion (HC) With seat - For home use. Length of need: 99 1 Each 06/10/20 Active Insulin [place], Disposable, (UltiCare Pen Needle) 32 gauge x 5/32Indications:D iabetes mellitus type 1 with complications (HC) TO USE FOR INSULIN ADMINISTRATION FOUR TIMES DAILY 400 Each 3 06/15/20 22 Active CPAPIndications:Se ovidio obstructive sleep apnea CPAP machine for home use at pressure: 12.2 cmw , Heated humidifier x 1 q 5 yr, Humidifier chamber x 1 q 6 mo, Full face mask x1 q 3mos, with cushion x 1 q mo, Heated tubing x 1 q 3 mo, Headgear x 1 q 6 mo, Filters: Disposable x 2 q mo non-disposable filters x1 q 6mo, Length of Need: 99 months, Frequency of use: Daily 1 Each 09/22/19 Active Per-Fit UnderwearIndicatio ns:Urinary incontinence, unspecified type ADULT PULL UPS XL THREE TIMES A DAY DIRECTED 96 Each 11 12/03/19 23 Active cyanocobalamin (VITAMIN B12) 1,000 mcg tabletIndications: B12 deficiency TAKE ONE TABLET BY MOUTH ONCE DAILY 90 Tablet 2 01/14/20 23 Active pregabalin (LYRICA) 50 mg capsuleIndications :Diabetic peripheral neuropathy (HC) TAKE ONE CAPSULE BY MOUTH EVERY EVENING WITH 1-100MG CAPSULE TO TOTAL 150MG 30 Capsule 5 01/14/20 23 Active naloxone (NARCAN) 4 mg/actuation nasal sprayIndications:C hronic, continuous use of opioids INHALE 1 SPRAY INTO AFFECTED NOSTRIL(S) EACH TIME IF NEEDED FOR PATIENT DIFF TO AROUSE OR RESP RATE <8/MIN. ADD. DOSES MAY BE GIVEN EVERY 2-3 MIN. 2 Each 2 01/29/20 Active durable medical equipment (DME)Indications:C hronic obstructive pulmonary disease, unspecified COPD type (HC),Chronic pain syndrome,Diabetic peripheral neuropathy (HC),Spinal cord lesion (HC) Hospital bed mattress, railings, foot protector for hospital bed 1 Each 01/29/20 23 Active diclofenac topical (VOLTAREN) 1 % gelIndications:Chr onic pain syndrome,Osteoarth ritis, unspecified osteoarthritis type, unspecified site APPLY 1 GRAM TOPICALLY TO AFFECTED AREA(S) FOUR TIMES A DAY 350 g 2 02/03/20 23 Active ammonium lactate 12% topical (LACHYDRIN) 12 % lotionIndications: Dry skin dermatitis APPLY TOPICALLY DAILY TO BILATERAL FEET DIRECTED 396 g 3 02/03/20 23 Active cetirizine (ZYRTEC) 5 mg tabletIndications: Wheezing TAKE ONE TABLET (5 MG) BY MOUTH ONCE DAILY. 90 Tablet 2 02/17/20 23 Active cholecalciferol (VITAMIN D3) 2,000 unit capsuleIndications :Vitamin D deficiency TAKE ONE CAPSULE BY MOUTH ONCE DAILY 90 Capsule 2 02/24/20 23 Active levothyroxine (SYNTHROID) 125 mcg tabletIndications: Hypothyroidism (acquired) TAKE 1 TABLET (125 MCG) BY MOUTH ONCE DAILY. 90 Tablet 2 02/24/20 23 Active DULoxetine (CYMBALTA) 60 mg Delayed-release capsuleIndications :Adjustment disorder with mixed anxiety and depressed mood,Chronic pain syndrome Take 1 Capsule (60 mg) by mouth once daily. 90 Capsule 3 02/29/20 Active amLODIPine (NORVASC) 2.5 mg tabletIndications: Essential hypertension Take 1 Tablet (2.5 mg) by mouth two times daily. 180 Tablet 3 02/29/20 Active sennosides-docusat e (Stool Softener-Stimulant Laxat) (8.6-50 mg) tabletIndications: Chronic constipation TAKE TWO TABLETS BY MOUTH TWO TIMES DAILY NEEDED FOR CONSTIPATION. 360 Tablet 2 04/20/20 Active continuous glucose monitor READER (FreeStyle Elli 2 [place])Indications :Type 1 diabetes mellitus with other specified complication (HC) To be used to read blood sugars per patient intake coordinator's directions. 1 Each 05/19/20 Active blood-glucose meterIndications:T ype 1 diabetes mellitus with other specified complication (HC) As directed. Dispense meter, test strips, lancets covered by pt ins. E10.9 IDDM type I - Test 4 times/day. Reason: Unstable diabetes 1 Each 05/19/20 Active blood sugar diagnostic (Blood Glucose Test) stripIndications:T ype 1 diabetes mellitus with other specified complication (HC) Test 4 times per day. 400 Each 3 05/19/20 Active lancetsIndications :Type 1 diabetes mellitus with other specified complication (HC) As directed. Test 4 times per day. 400 Each 3 05/19/20 Active pregabalin (LYRICA) 100 mg capsuleIndications :Chronic pain syndrome TAKE TWO CAPSULES (200MG) BY MOUTH EVERY MORNING AND ONE CAPSULE IN THE EVENING WITH THE (50MG) TO TOTAL 150MG 90 Capsule 5 06/16/20 23 Active torsemide (DEMADEX) 20 mg tabletIndications: Hyperkalemia,Local ized edema TAKE TWO TABLETS BY MOUTH (40MG) ONCE DAILY 60 Tablet 3 09/09/19 Active continuous glucose monitor SENSOR KIT (FreeStyle Elli 2 Sensor)Indications :Type 1 diabetes mellitus with other specified complication (HC) As directed. To be used to read blood sugars per patient intake coordinator's directions. 6 Each 3 09/06/19 24 Active omeprazole (PRILOSEC) 20 mg Delayed-Release capsuleIndications :Chronic GERD Take 1 Capsule (20 mg) by mouth once daily before a meal. 90 Capsule 1 09/06/19 24 Active insulin lispro (HumaLOG U-100 Insulin) 100 unit/mL injectionIndicatio ns:Diabetes mellitus type 1 with complications (HC) INJECT 4 UNITS SUBCUTANEOUSLY WITH MEALS THREE TIMES DAILY 10 mL 3 09/06/19 24 Active insulin lispro, U-100, (HUMALOG KWIKPEN; ADMELOG SOLOSTAR) 100 unit/mL inpn penIndications:Ashly betes mellitus type 1 with complications (HC) Inject 4 units subcutaneous three times daily before meals. Product desired: HUMALOG KWIKPEN 30 mL 09/06/19 24 Active acetaminophen SR (TYLENOL ARTHRITIS) 650 mg Extended-Release tabletIndications: Chronic pain syndrome TAKE TWO TABLETS BY MOUTH EVERY EIGHT HOURS 180 Tablet 2 09/14/19 24 Active polyethylene glycoL (MIRALAX) 17 gram/scoop powderIndications: Chronic constipation MIX 17GMS IN 8OZ LIQUID AND DRINK ONCE DAILY NEEDED FOR CONSTIPATION 238 g 2 09/14/19 24 Active metoprolol succinate (TOPROL XL) 25 mg Sustained-Release tabletIndications: HTN (hypertension) TAKE ONE TABLET (25 MG) BY MOUTH ONCE DAILY. 90 Tablet 2 09/22/19 24 Active oxyCODONE (ROXICODONE) 5 mg immediate release tabletIndications: Chronic pain syndrome,Neuropath y due to secondary diabetes (HC) Si p.o. B.I.D. / PRN For O.A. pain or Diabetic P.N. Pain ; max: 2 a day. Use dates: 09/24/23-10/23/23 60 Tablet 09/21/19 24 Active albuterol-ipratrop ium (DUONEB) (2.5-0.5 mg) in 3 mL NEBULIZATION solutionIndication s:Chronic obstructive pulmonary disease, unspecified COPD type (HC) Inhale 3 mL via a nebulizer 4 times daily if needed for Wheezing. 180 mL 09/21/19 24 Active FLUoxetine (PROZAC) 10 mg capsuleIndications :Moderate episode of recurrent major depressive disorder (HC) Take 1 Capsule (10 mg) by mouth once daily. 30 Capsule 1 09/21/19 24 Active Lantus Solostar U-100 Insulin 100 unit/mL (3 mL) penIndications:Typ e 1 diabetes mellitus with proliferative retinopathy, macular edema presence unspecified, unspecified laterality, unspecified proliferative retinopathy type (HC) Inject 13 units subcutaneous before bedtime. Product desired: LANTUS SOLOSTAR 9 mL 3 09/21/19 24 Active durable medical equipment (DME)Indications:S easonal affective disorder (HC) Seasonal affective disorder lamp 1 Each 09/21/19 24 Active atorvastatin (LIPITOR) 20 mg tabletIndications: Diabetes mellitus type 1 with complications (HC) Take 1 Tablet (20 mg) by mouth at bedtime. 90 Tablet 3 09/21/19 24 Active buprenorphine 5 mcg/hr (BUTRANS) 5 mcg/hour transdermal patchIndications:N europathy due to secondary diabetes (HC),Type 1 diabetes mellitus with foot ulcer (CODE) (HC) Apply 1 Patch on dry, clean, hairless skin once weekly. 4 Patch 3 09/27/19 24 Active polyethylene glycoL (Gavilax) 17 gram/dose powderIndications: Chronic constipation Mix 1 scoop (17 g) in liquid then take by mouth once daily if needed for Constipation. TAKE 17GM IN 80Z LIQUID AND DRINK ONCE DAILY NEEDED FOR CONSTIPATION 238 g 1 03/02/20 21 024 Discontinued albuterol-ipratrop ium (DUONEB) (2.5-0.5 mg) in 3 mL NEBULIZATION solutionIndication s:Chronic obstructive pulmonary disease, unspecified COPD type (HC) Inhale 3 mL via a nebulizer 4 times daily if needed for Wheezing. 180 mL 05/06/20 22 024 Discontinued(Re order (E-cancel not sent)) buprenorphine HCL (SUBUTEX) 2 mg sublIndications:Ch ronic pain syndrome,Neuropath y due to secondary diabetes (HC) 1/2 tab. S.L. A.M.; 1 tab. S.L. afternoon; 1/2 tab. S.L. H.S. (Max: 2.25 tabs / day) chronic pain (O.A. / Diabetes neuropathy. 45 Tablet 10/29/19 23 024 Discontinued(*M ed complete/Regime n complete/Level of care change) metoprolol succinate (TOPROL XL) 25 mg Sustained-Release tabletIndications: HTN (hypertension) TAKE 1 TABLET (25 MG) BY MOUTH ONCE DAILY. 90 Tablet 2 12/03/19 23 024 Discontinued torsemide (DEMADEX) 20 mg tabletIndications: Hyperkalemia,Local ized edema TAKE TWO TABLETS BY MOUTH (40MG) ONCE DAILY 60 Tablet 3 04/11/20 23 024 Discontinued acetaminophen SR (TYLENOL ARTHRITIS) 650 mg Extended-Release tabletIndications: Chronic pain syndrome TAKE TWO TABLETS BY MOUTH EVERY EIGHT HOURS 180 Tablet 2 04/06/20 23 024 Discontinued buprenorphine 5 mcg/hr (BUTRANS) 5 mcg/hour transdermal patchIndications:N europathy due to secondary diabetes (HC),Type 1 diabetes mellitus with foot ulcer (CODE) (HC) APPLY 1 PATCH ON DRY, CLEAN, HAIRLESS SKIN ONCE WEEKLY. 4 Patch 3 06/08/20 23 024 Discontinued(Re order (E-cancel not sent)) Lantus Solostar U-100 Insulin 100 unit/mL (3 mL) penIndications:Ashly betes mellitus type 1 with complications (HC) INJECT 15 UNITS SUBCUTANEOUSLY EVERY BEDTIME 30 mL 07/07/19 24 024 Discontinued(*M edication adjustment) atorvastatin (LIPITOR) 20 mg tabletIndications: Diabetes mellitus type 1 with complications (HC) TAKE 1 TABLET (20 MG) BY MOUTH AT BEDTIME. 90 Tablet 07/21/19 24 024 Discontinued(*M edication adjustment) oxyCODONE (ROXICODONE) 5 mg immediate release tabletIndications: Chronic pain syndrome,Neuropath y due to secondary diabetes (HC) Si p.o. B.I.D. / PRN For O.A. pain or Diabetic P.N. Pain ; max: 2 a day. Use dates: 08/25/2023- 024 60 Tablet 08/23/19 24 024 Discontinued(Re order (E-cancel not sent)) Lantus Solostar U-100 Insulin 100 unit/mL (3 mL) pen Inject 12 units subcutaneous before bedtime. Product desired: LANTUS SOLOSTAR 9 mL 3 09/21/19 24 024 Discontinued(*M edication adjustment) Active Problems Patient Care Coordination No te Formatting of this note migh t be different from the original. Family and Getting more independent is what matters most to Kati. Kait would like her care team to know she has supportive family. What are Kati's challenges, stressors, or barriers? Mobility, finances. Problem Noted Date Diagnosed Date Controlled substance agreement signed - 10/07/23 10/07/2023 Overview: [facility] [place] [place] .................... 10/07/2023 4:39 PM Type 1 diabetes mellitus with proliferative reti nopathy 11/23/2022 Depression, recurrent 08/24/2022 Hyperkalemia 08/13/2021 S/P gastric bypass 07/30/2021 Overview: 2009 lab [facility] CKD (chronic kidney disease) stage 4, GFR 15-29 ml/min 07/02/2021 Heart failure 05/07/2021 Urinary retention 03/12/2021 Closed fracture of femur 03/12/2021 Overview: 11/19/2020 Opioid dependence, uncomplicated 03/12/2021 URIAH 08/21/1998 AHI-39 02/19/2019 Morbid obesity with BMI of 45.0-49.9, adult 06/03 Lactic acid acidosis 06/10/2017 Heel ulcer, right, with unspecified severity 02/2017 Foot drop, bilateral 07/23/2015 Type 1 diabetes mellitus with other specified co mplication 07/23/2015 Overview: Complicated with retinopathy, chronic kidney disease, neuropathy Multiple hospitalizations for labile diabetes and hypoxia which led to extended stay in care home care 07/2015- 05/2017 Hospitalized with ketoacidosis 06/2017 Spinal cord lesion 07/18/2015 Overview: MRI 07/2015: Stable central T2 cord signal abnormality at T1-T3 without abnormal gadolinium enhancement.?? This appears relatively stable from the MRI 02/2013 and is likely due to prior infectious/inflammatory/ischemic etiologies. Findings not typical for demyelinating disease. Neoplasm unlikely considering stability. Recommend continued interval followup to document stability. Anticoagulation monitoring, special range 2014 Osteoarthritis of [facility] joints 10/25/2012 Overview: Vitamin B12 deficiency 08/03/2012 Pain medication agreement 12/17/2011 Seasonal allergies 02/10/2011 Osteoarthritis of hip 03/16/2010 Unspecified hypothyroidism 03/04/2010 Adjustment disorder with mixed anxiety and depre ssed mood 06/01/2007 Anemia of other chronic disease 09/09/2006 Unspecified essential hypertension 09/09/2006 Unspecified sleep apnea 09/09/2006 Chronic pain syndrome 09/09/2006 Background diabetic retinopathy(362.01) 09/10/19 07 Other and unspecified hyperlipidemia 09/09/2006 Chronic obstructive asthma, unspecified 09/10/19 07 Resolved Problems Problem Noted Date Diagnosed Date Resolved Date Stage 3b chronic kidney disease 08/13/2021 09/21/2023 Deep venous thrombosis (DVT) of right peroneal vein 03/12/2021 09/21/2023 Overview: Diagnosed 02/2021 - xarelto for 3 months Acute hypercapnic respiratory failure 01/02/2019 01/18/2022 FIORELLA (acute kidney injury) 06/10/2017 Diabetic ketoacidosis withou t coma associated with type 1 diabetes mellitus 06/10/2017 03/12/2021 Transient alteration of awareness 07/19/2015 06/10/2017 Leukopenia 07/19/2015 06/10/2017 Overview: Absolute neutropenia noted on Differential on 07/21/2015 Weakness 07/18/2015 06/10/2017 Hypothyroid 07/18/2015 06/10/2017 Status post total right knee replacement 01/02/2015 06/10/2017 care home (current) use of anticoagulants 11/27/2013 12/28/2013 Anticoagulation monitoring, special range 11/27/2013 12/28/2013 Achlorhydria 08/03/2012 06/10/2017 S/P Left shoulder TSA on 07-[address] 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 03/17/2011 05/04/2011 06/10/2017 Left shoulder advanced gleno humeral joint osteoarthritis 12/31/2010 06/10/2017 Pain medication agreement 11/12/2010 Arthropathy, shoulder region 11/21/2009 06/10/2017 Urinary retention 08/12/2008 03/10/2011 Normocytic anemia 07/17/2008 06/10/2017 Congestive heart failure, unspecified 12/20/2007 03/10/2011 Chronic airway obstruction, not elsewhere classified 12/20/2007 03/10/2011 Overview: Second hand smoke Stage 3b chronic kidney disease 09/09/2006 08/13/2021 Headache(784.0) 09/09/2006 06/10/2017 Controlled type 1 diabetes jhon mensah with stage 1 chronic kidney disease 05/25/2002 7 Encounters Date Type Department Care Team Description 10/07/2023 4:00 PM CDT Office Visit [facility] [address] [place] [address] Toshia Hooks, [employer] Follow Up; Foot Numbness (It is controlled with her care as it is. ); Depression (She feels like things are dark & needs to Put lights on. Just had Prozac initiated. Too soon to notice any difference. She asked her son Nikolai to let her know if he notices any difference. ); Lab 10/07/2023 Travel 10/06/2023 Telephone [facility] [address] [place] [address] Barbara Valentin, DO Follow Up 09/27/2023 Refill [facility] [address] [place] [address] Harjit Green NP Refill Request (Buprenorphine) 09/22/2023 Telephone [facility] [address] [place] [address] Barbara Valentin, DO Results 09/21/2023 3:25 PM CDT Office Visit [facility] [address] [place] [address] Barbara Valentin, DO Diabetes; Medication Management 09/21/2023 Travel 09/20/2023 Refill [facility] [address] [place] [address] Harjit Green NP Refill Request 09/13/2023 Refill [facility] [address] [place] [address] Elian Humphrey MD Refill Request (Metoprolol Succinate) 09/13/2023 Refill [facility] [address] [place] [address] Barbara Valentin Patricia, DO Refill Request (Acetaminophen Sr, Polyethylene Glycol) 09/06/2023 Telephone [facility] [address] [place] [address] Barbara Valentin Patricia, DO Questions (insulin lispro (HumaLOG U-100 Insulin) 100 unit/mL injection ) 09/05/[address] [address] Barbara Valentin, DO Medication Management 09/05/[address] [address] Barbara Valentin, DO Refill Request (Omeprazole) 08/30/2023 Refill [facility] [address] [place] [address] Elian Humphrey MD Refill Request (Torsemide) 08/30/[address] [address] Barbara Valentin Patricia, DO Follow Up 08/23/2023 Refill [facility] [address] [place] [address] Barbara Valentin Patricia, DO Refill Request (Novolog Flexpen U-100 Insulin) 08/23/2023 Refill [facility] [address] [place] [address] Harjit Green NP Refill Request 08/02/2023 Telephone [facility] [address] [place] [address] Barbara Valentin Patricia, DO Concerns 07/25/2023 Refill [facility] [address] [place] [address] Harjit Green NP Refill Request (Patients son Mitul is requesting a refill of Oxycodone to be sent to [facility] ) 07/19/2023 Refill [facility] [address] [place] [address] Barbara Valentin, DO Refill Request (Atorvastatin) from Last 3 Months Immunizations Name Administration Dates Next Due AMB Influenza, IIV3 (Age >=3 years)(Flu Clinic Only) 05/17/2013,05/06/2010 COVID-19 vaccine (Pfizer-Bio NTech 30mcg/0.3mL) 12YO+ BIVALENT PF, MDV 04/28/2022 COVID-19 vaccine (Pfizer-Bio NTech 30mcg/0.3mL) PF, MDV 06/23/2021 Hepatitis B (Adult) 08/17/2019,02/06/2014,2013 Influenza A (H1N1), Inactivated 06/19/2009 Influenza A (H1N1), Inactiva audi (Age >=3 Years) 06/19/2009 Influenza, IIV3 (Age >=3 years) 05/06/20 14,05/17/2013,03/20/2012,2010,05/06/2010,03/19/2009,05/06/2008,1 ,05/11/2006,04/29/2005, 004,06/13/2003 Influenza, IIV4 04/28/2022,,05/18/2019,2017,04/06/2017 Influenza, IIV4 (=>6mos) MDV 03/18/2020,04/06/20 17 Pneumococcal Poly,23-Valent (Pneumovax) 08/17/2016,07/04/2005,07/04/1995 Pneumococcal conj 13-Valent (Prevnar 13) 08/14/2014 Td (Age >=7 Years) 12/31/2002,12/30/2002 Tdap 08/25/2010 Family History Medical History Relation Name Comments Diabetes Brother 1 Other Brother 2 obesity Other Brother 3 sleep apnea x 2 brothers Hypertension Father Other Father sleep apnea Diabetes Mother Other Mother obesity/sleep a pnea Cancer-breast No Family History Relation Name Status Comments Brother 1 Brother 2 Brother 3 Father Mother Social History Tobacco Use Types Packs/Day Years Used Date Smoking Tobacco: Never Smokeless Tobacco: Never Tobacco Cessation:Counseling Given: Yes Alcohol Use Standard Drinks/Week Comments No 0 (1 standard drink = 0.6 oz pur e alcohol) PHQ-2 Answer Date Recorded PHQ-2 TOTAL SCORE 2 08/19/2022 Social Connections Answer Date Recorded Frequency of Communication with Friends and Fami ly 0 09/21/2023 Financial Resource Strain Answer Date R ecorded Difficulty of Paying Living Expenses 2 09/21/2023 Difficulty of Paying Living Expenses 1 09/21/2023 Food Insecurity Answer Date Recorded Worried About Running Out of Food in the Last Ye ar 2 09/21/2023 Transportation Needs Answer Date Record ed Lack of Transportation (Medical) 2 09/21/2023 Housing Stability Answer Date Recorded Unable to Pay for Housing in the Last Year 2 09/21/2023 Sex and Gender Information Value Date Recorded Sex Assigned at Not on file Gender Identity Not on file Sexual Orientation Not on file Obstetrics History Para Term AB IAB SAB Ectopic Multiple Livin g Live Births 1 1 1 Date Outcome GA Total Labor Labor/2nd/3rd Weight Sex Delivery Anes PTL Patricia A1 A5 Name Cl in Term Last Filed Vital Signs Vital Sign Reading Time Taken Comments Blood Pressure 120/74 09/21/2023 3:41 PM CDT Pulse 81 10/07/2023 4:16 PM CDT Temperature 36.8 ??C (98.2 ??F) 08/24/2022 2:38 PM CS T Respiratory Rate 14 08/24/2022 2:38 PM FIG WASHER Oxygen Saturation 93% 10/07/2023 4:16 PM CDT Inhaled Oxygen Concentration - - Weight 96.7 kg (213 lb 3.2 oz) 02/28/2023 3:16 P M CDT Height 152.4 cm (5') 01/02/2019 8:57 PM CDT Body Mass Index 41.64 01/02/2019 8:57 PM CDT Plan of Treatment Upcoming Encounters Date Type Department Care Team (Late st Contact Info) Description 12/23/2023 2:45 PM CDT Orders Only [facility] [address] [place] [address] Lab, [place] 12/23/2023 3:00 PM CDT Office Visit [facility] [address] [place] [address] Barbara Valentin, DO [address] [place] [address] Health Maintenance Due Date Last Done Comments Zoster (shingles) series for age 50+ (1 of 2) 12/19/2011 Pap test for age 21-65 08/17/2015 08/17/2012, 2010 Tetanus booster 08/25/2020 08/25/2010, 12/04, 12/30/2002 COVID-19 vaccine series ( - 2022- season) 2023 04/28/2022, 06/23/2021, 09/24/2020 Mammogram for age 45-75 04/28/2023 04/28/20, 03/02/2018, 07/26/2013, Additional history exists Depression screening for age 12+ 08/17/2023 08/17/2022, 08/17/2019, 08/17/2019, Additional history exists Influenza for age 50-64 03/04/2024 04/28/20, 04/28/2021, 03/18/2020, Additional history exists Fecal testing sDNA-FIT ([place] guard) for age 45-75 11/10/2024 11/10/2021 Pneumococcal series for age 6-64 (4 of 4 - PPSV23 or PCV20) 2026 08/17/2016, 08/14/2014, 07/04/2005, Additional history exists Lipids for age 45-75 04/28/2027 04/28/2022, 08/17/2019, 08/31/2018, Additional history exists Tdap Completed 08/25/2010 HIV for age 15-65 Completed 07/21/2015 Hepatitis C screening for ag e 18-79 Completed 02/16/2018 Medical Devices Implanted Type Area Process Laboratory Specialist Device Identifier Shelf Expiration Date Model / Serial / Lot [id number] 2x12mm [[id number]] Implanted:Qty: 1 on 08/08/2008 at [facility] Explanted:at [facility] (Quantity not on file) [facility] [employer] [id number]# / [id number] / Stem Compnt Primary 8mm Mini - [id number] Implanted:Qty: 1 on 03/17/2011 at [facility] Right: Shoulder BIOMET [id number]# / / [id number] Head Hum Bio-Mod [id number] - [id number] Implanted:Qty: 1 on 03/17/2011 at [facility] Right: Shoulder BIOMET [id number]# / / [id number] Base Glenoid Hybrid 4mm Sm - [id number] Implanted:Qty: 1 on 03/17/2011 at [facility] Right: Shoulder BIOMET [id number]# / / [id number] Cmnt 1/2 [employer] - [id number] Implanted:Qty: 1 on 03/17/2011 at [facility] Right: Shoulder [employer] 6188-- 0# / / [id number] Post Glenoid Hybrid Regenerex - [id number] Implanted:Qty: 1 on 03/17/2011 at [facility] Right: Shoulder BIOMET [id number] # / / [id number] Head Humeral 44x15 Co Cr Biomodular - [id number] Implanted:Qty: 1 on 07/12/2012 at [facility] Left: Shoulder BIOM[employer] [id number]# / / [id number] Shoulder Stem Implanted:Qty: 1 on 07/12/2012 at [facility] Left: Shoulder [id number] / / [id number] Description:SHOULDER STEM Cmnt Bone 1/2 [employer] - [id number] Implanted:Qty: 1 on 07/12/2012 at [facility] Left: Shoulder [employer] 6188--01 0# / / [id number] Post Glenoid Hybrid Regenerex - [id number] Implanted:Qty: 1 on 07/12/2012 at [facility] Left: Shoulder BIOMET [id number] # / / [id number] Base Glenoid Hybrid 4mm Sm - [id number] Implanted:Qty: 1 on 07/12/2012 at [facility] Left: Shoulder [employer] [id number]# / / [id number] Procedures Procedure Name Priority Date/Time Associated Diagnosis Comments BASIC METABOLIC PANEL Routine 09/21/2023 3:38 PM CDT Hyperkalemia CKD (chronic kidney disease) stage 4, GFR 15-29 ml/min (HC) HEMOGLOBIN A1C Routine 09/21/2023 3:38 PM CDT 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, macular edema presence unspecified, unspecified laterality, unspecified proliferative retinopathy type (HC) XR MAMMO BILAT SCREENING Routine 04/28/2022 2:04 PM CDT Encounter for screening mammogram for malignant neoplasm of breast LIPID PANEL W REFLEX MEASURED LDL Routine 04/28/2022 1:44 PM CDT Type 1 diabetes mellitus with other specified complication (HC) FECAL DNA (AKA COLOGUARD) Routine 11/10/2021 1:00 PM CDT Screening for colon cancer ANTI HCV Routine 02/16/2018 4:20 PM CDT Need for hepatitis C screening test ANTI HIV 1/2 Add On 07/21/2015 9:40 AM FIG WASHER GOLF TECHNICIAN THIN PREP PAP SCREEN IMAGED Routine 08/17/2012 4:02 PM FIG WASHER Screening for malignant neoplasm of the cervix from Last 3 Months or Most Recently Relevant to Health Maintenance Results * (ABNORMAL) HEMOGLOBIN A1C MONITORING (POCT) (09/21/2023 3:38 PM CDT) HEMOGLOBIN A1C MONITORING (POCT) 7.7(H) <=6.4 % 09/21/2023 3:50 PM CDT [facility] Blood BLOOD SPECIMEN / Unknown Butterfly / Unknown 09/21/2023 3:38 PM CDT 09/21/2023 3:40 PM CDT Narrative [facility] - 09/21/2023 3:50 PM CDT ? (<=6.9%) ? Indicates good control ? (7.0% to 7.9%) ? Indicates fair control ? (>=8.0%) ? Indicates poor control ?? NOTE: ??These thresholds are guidelines and ?individual targets may vary. Falsely low levels may be seen with: Recent Transfusion, Recent Significant Blood Loss, Hemolytic Diseases, or Falsely elevated levels may be seen with: Untreated Anemias, Splenectomy ? Barbara Valentin DO CHEMISTRY [facility] [address] [place] [address], * (ABNORMAL) BASIC METABOLIC PANEL (09/21/2023 3:38 PM CDT) SODIUM 134(L) 136 - 145 mmol/L 09/21/2023 11:21 PM CDT [facility] POTASSIUM 4.9 3.5 - 5.1 mmol/L 09/21/2023 11:21 PM CDT [facility] CHLORIDE 95(L) 98 - 107 mmol/L 09/21/2023 11:21 PM CDT [facility] CO2,TOTAL 28 22 - 29 mmol/L 09/21/2023 11:21 PM CDT [facility] ANION GAP 11 5 - 18 09/21/2023 11:21 PM CDT [facility] GLUCOSE 490(H) 70 - 99 mg/dL 09/21/2023 11:21 PM CDT [facility] CALCIUM 9.2 8.8 - 10.2 mg/dL 09/21/2023 11:21 PM CDT [facility] BUN 46(H) 8 - 23 mg/dL 09/21/2023 11:21 PM CDT [facility] CREATININE 1.95(H) 0.50 - 0.90 mg/dL 09/21/2023 11:21 PM CDT [facility] BUN/CREAT RATIO 24(H) 10 - 20 03/20/202 4 11:21 PM CDT [facility] eGFR 29(L) >90 mL/min/1.7 3m2 09/21/2023 11:21 PM CDT [facility] Comment:As of 2021, eG FR is calculated by the CKD-EPI creatinine equation without race adjustment. ??eGFR can be influenced by muscle mass, exercise, and diet. ??The reported eGFR is an estimation only and is only applicable if the renal function is stable. Blood BLOOD SPECIMEN / Unknown Butterfly / Unknown 09/21/2023 3:38 PM CDT 09/21/2023 3:40 PM CDT Barbara Valentin DO CHEMISTRY [facility] [address] [place] [address], * XR MAMMO BILAT SCREENING (04/28/2022 2:04 PM CDT) Anatomical Region Laterality Modality BREASTS, Breast Left, Breast Right Bilateral Mammography Impressions 04/29/2022 3:37 PM CDT ??There is no radiographic evidence for malignancy. ??Recommend annual mammograms. MAMMOGRAM ASSESSMENT: ??ACR 1 Negative PATIENTS: You will also receive a letter with your examination results in an easy to read format. ??If you have questions about your results, please contact your referring provider. Narrative 04/29/2022 3:37 PM CDT For Patients: As a result of the 21st Century Cures Act, medical imaging exams and procedure reports are released immediately into your electronic medical record. You may view this report before your referring provider. If you have questions, please contact your health care provider. XR MAMMO BILAT SCREENING [[id number]] CLINICAL HISTORY: ??This is an asymptomatic 61 y.o. patient. INDICATION FOR EXAM: Mammogram Screening. TECHNIQUE: CC & MLO views were obtained. ??This study was evaluated with the assistance of Computer-Aided Detection. COMPARISON FILM: Yes 03/02/18 [employer] 07/26/13 [facility] [employer] FINDINGS: ??The breasts are extremely dense, which lowers the sensitivity of mammography. There are no dominant masses, suspicious micro calcifications or areas of architectural distortion. Shania Montiel MD MAMMO * LIPID PANEL W REFLEX MEASURED LDL (04/28/2022 1:44 PM CDT) CHOLESTEROL,TOTAL 139 100 - 199 mg/dL 04/30/2022 6:25 PM CDT [facility] TRIGLYCERIDES 141 <150 mg/dL 04/30/2022 6:25 PM CDT [facility] HDL CHOLESTEROL 42 >40 mg/dL 6:25 PM CDT [facility] NON-HDL CHOLESTEROL 97 <145 mg/dl 04/30/2022 6:25 PM CDT [facility] CHOL/HDL RATIO 3.31 <4.50 04/30/2022 6:25 PM CDT [facility] LDL CHOLESTEROL 69 <=130 mg/dL 04/30/2022 6:25 PM CDT [facility] VLDL CHOLESTEROL 28 <=30 mg/dL 04/30/2022 6:25 PM CDT [facility] PROVIDER ORDERED STATUS RANDOM 04/30/2022 6:25 PM CDT [facility] Blood BLOOD SPECIMEN / Unknown Venipuncture / Unknown 04/28/2022 1:44 PM CDT 04/28/2022 1:45 PM CDT Shania Montiel MD CHEMISTRY [facility] [address] [place] [address], [place] * FECAL DNA (AKA COLOGUARD) (11/10/2021 1:00 PM CDT) Shania Montiel MD COMMUNICATION ORD * ANTI HCV [58501.2] (02/16/2018 4:20 PM CDT) HEPATITIS C ANTIBODY Non-React alex Non-React alex 02/17/2018 2:48 PM CDT [facility] Comment:Antibodies to HCV no t detected; does not exclude the possibility of exposure to HCV. Blood BLOOD SPECIMEN / Unknown Butterfly / Unknown 02/16/2018 4:20 PM CDT 02/16/2018 4:20 PM CDT Coleman Plata MD SEND OUTS Performing Organization Address City/[facility]/ZIP Co de Phone Number [facility] [address] [place] [address], * HIV 1&2 TODAY (07/21/2015 9:40 AM FIG WASHER) Pathologist [facility] HIV-1/HIV-2 ANTIBODY Non-Reacti ve Non-Reacti ve 07/21/2015 10:31 AM FIG WASHER [facility] Blood specimen (specimen) BLOOD SPECIMEN / Unknown Venipuncture / Unknown 07/21/2015 9:40 AM FIG WASHER 07/21/2015 9:47 AM FIG WASHER Narrative [facility] - 07/21/2015 10:31 AM FIG WASHER HIV-1 p24 and HIV-1/HIV-2 Ab not detected Kait Morales DO SEND OUTS Performing Organization Address [facility] Co de Phone Number [facility] [address] [place] [address], * GOLF TECHNICIAN THIN PREP PAP SCREEN IMAGED (08/17/2012 4:02 PM FIG WASHER) CYTOLOGY CYTOPATHOLOGY REPORT [facility] Status: Final Status ?[id number] CLINICAL INFORMATION Last Date of LMP ? :07/03/2012 Last Pap Date ?:02/01/2011 Last Pap Result ?:NIL ABN Farrell/Bx Past 5 YRS :None Hormone Usage ?:BCP/OCP/Patch/R ing Menstrual Status ? :Regular Periods Farrell/Bx done today ? :No Additional Information :None given HPV Request ?:HPV if ASCUS SPECIMEN SOURCE ?:Cervical/vagina l ThinPrep Vial, screening SPECIMEN ADEQUACY ?:Satisfactory for evaluation No endocervical ? component seen. INTERPRETATION/RES ULT Negative for intraepithelial lesion or malignancy (NIL) Cytology 1st Screener ??:cam Signed by ?:cam This specimen was screened by the FDA approved ThinPrep Imaging System and manually reviewed. NOTE: ??The Pap test is a screening technique, not a diagnostic procedure. ??It is used ??primarily to screen for squamous cancers and precursor lesions. ??Published studies have shown that it is subject to both false negative and false positive results. ??The pap test should not be used as the sole means to diagnose or exclude pre-malignant and malignant lesions. COLLECTED:08/17/12 ? ACCESSIONED: ??08/18/12 ?? SIGNED: ??08/21/12 [facility] PAP [place] CODE NIL [facility] Tissue specimen (specimen) (Cervical/Vagina l) 08/17/2012 4:02 PM FIG WASHER 08/17/2012 4:00 PM FIG WASHER Coleman Plata MD PATHOLOGY/CYTOLOGY [facility] INTERNAL ZIP [id number] [place] [address] from Last 3 Months or Most Recently Relevant to Health Maintenance Advance Directives * Full Code (Latest Code Status on File) Date Activated Date Inactivated Comments 01/02/2019 1:28 AM 01/04/2019 4:49 PM Question Answer Comments Code Status Discussion: Not Discussed * Full Code Date Activated Date Inactivated Comments 06/10/2017 10:37 PM 06/16/2017 3:36 PM * Full Code Date Activated Date Inactivated Comments 07/18/2015 4:38 PM 07/23/2015 3:50 PM * Full Code Date Activated Date Inactivated Comments 07/12/2012 8:01 PM 07/15/2012 6:55 PM * Full Code Date Activated Date Inactivated Comments 03/17/2011 8:49 PM 03/19/2011 7:03 PM Care Teams Folder Inspector Relationship Specialty Start Date End Date Barbara Valentin DO [address] [place] [address] PCP - General Family Practice 11/15/22 Julio Ibrahim MD [address] [place] [address] Surgery - Orthopedics 02/01/11 Chuy Doss MD [address] [place] [address] Surgery - Vascular 02/01/11 Markel Strong MD [address] [place] [address] Provider Family Practice 08/08/20 Nikolai Ibarra MD [address] [place] [address] Endocrinology 09/07/22 Suad Ng/ Med[employer] CM Skip Load Driver 07/14/17 [facility] Home Health Nurse 07/01/17 [facility] JEWEL SORTER Services Home Health Aide 07/14/17 [facility] Flight Reservations Manager/ Ally Christianson [address] [place] [address] Skip Load Driver 07/07/17
== END 2023-09-29 21:04 | disposition home or self-care (01) ==
PROVIDERS: PCP Family Medicine; Visit Provider Family Medicine
DX: E11.649 Type 2 diabetes mellitus with hypoglycemia without coma (principal)
CPT/HCPCS: A0998

== ENCOUNTER 2023-12-09 12:47 | Outpatient (CLI) | payer OTHER, SELFPAY ==
--- OUTSIDE RECORDS SUMMARY | 2023-12-09 12:52 | XMS_ITS | Encounter Summary ---
Author Organization [facility] Address [address] [place] [address] Care Team Providers Care District Captain Name Role Phone Barbara Valentin DO Primary Care Provider Kevin zepeda Reason for Visit * Reason Comments CKD New Patient * Nephrology Services (Urgent) - Closed Specialty Diagnoses / Procedures Referred By Contac t Referred To Contact Nephrology Diagnoses Chronic kidney disease stage 4 (HCC) Barbara Valentin DO [address] [place] [address] Elian Humphrey MD [address] [place] [address] Referral ID Status Reason Start Date Expiration Date Visits Re quested Visits Authorized [id number] Closed 09/22/2023 09/21/2024 1 1 Encounter Details Date Type Department Care Team (Latest Contact Info) Description 11/10/2023 3:30 PM EDT Office Visit [facility] [address] [place] [address] Gabriel Hicks MD [address] [place] [address] Chronic kidney disease, stage 4 (severe) (HCC) (Primary Dx); 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); Chronic diastolic congestive heart failure (HCC); Secondary hyperparathyroidism of renal origin (HCC); Anemia in chronic kidney disease Social History Tobacco Use Types Packs/Day Years Used Date Smoking Tobacco: Never Smokeless Tobacco: Never Tobacco Cessation:Counseling Given: Not Answered Alcohol Use Standard Drinks/Week Comments Not Currently 0 (1 standard drink = 0.6 oz pur e alcohol) Sex and Gender Information Value Date Recorded Sex Assigned at Not on file Gender Identity Not on file Sexual Orientation Not on file documented as of this encounter Last Filed Vital Signs Vital Sign Reading Time Taken Comments Blood Pressure 134/68 11/10/2023 3:52 PM CDT Pulse 68 11/10/2023 3:52 PM CDT Temperature - - Respiratory Rate - - Oxygen Saturation 89% 11/10/2023 3:52 PM CDT Inhaled Oxygen Concentration - - Weight 96.6 kg (213 lb) 11/10/2023 3:52 PM CDT Height 152.4 cm (5') 11/10/2023 3:52 PM CDT Body Mass Index 41.6 11/10/2023 3:52 PM CDT documented in this encounter Patient Instructions * Patient Instructions* Dave Hurst - 11/10/2023 3:30 PM CDT It was very nice to see you today. Continue to do well. As we talked about, stop the topical diclofenac gel since it will accelerate your kidney disease and increase your blood pressure. Otherwise you are doing quite well. Continued success. I look forward to seeing you soon. We will contact you to schedule your 6 month follow up when the schedule becomes available. Labs should be completed 1-2 weeks prior. They will be faxed to [facility]. Dr. Hicks/RAFAEL Acosta Welcome to [facility] Although we are experts in the care of patients with chronic kidney disease, we understand that youare the expert regarding your own life. Our goal is to work with you in providing the best possiblecare and to meet your individual needs. In addition to our Nephrologists, we have a team of Advanced Practice Providers (HEATHER's) to help closely monitor our patients. Our HEATHER's have specialized training and experience in caring for renal patients. If your Preventative Maintenance Technician deems it appropriate, you will be scheduled with an HEATHER to manage your care. The keys to managing our patient's care include: Blood Pressure: Our goal is to keep your blood pressure 130/80 or lower. Heart and blood vessels: We want your LDL (bad cholesterol) to be below 100. Blood and Urine testing: Provides a more in depth 'picture' into the current renal status of a patient. If you smoke, it is important to quit. We want you to maintain good nutrition to keep your body healthy, so we do have a Renal Compensation And Benefits Manager to help you with this. We encourage keeping a log of blood pressures for monitoring efficiency of any blood pressure medications. If you have diabetes, we want to keep your hemoglobin A1c at 7.0 or lower and your blood sugar 80 to 130. Avoid cold medications that include ephedrine, phenylpropolamine or pseudoephedrine (Sudafed, Actifed). If your doctor wants you to have a CT scan or MRI with IV contrast, be sure to let them know that you see a band saw filer for your kidney disease. Ask that they contact your band saw filer before this type of test is scheduled. When to call for your kidneys: Any new medications prescribed to you by other providers. Any new leg swelling or unexplained weight gain > 3-5 pounds. Consistently elevated Blood Pressure or dizziness (BP greater than 140/90) When to go to the Emergency Room: If you get dehydrated, or have excessive nausea, headache or vomiting, you may need to get IV fluids. If you cannot pass your urine completely (empty your bladder) as this may be a sign of an Acute Injury to your Kidney. Our Doctors, Advanced Practice Providers, nurses, and Renal Compensation And Benefits Manager are here to provide you with the best renal care. We want you to feel free to call us when you have questions or concerns. To call the nurse at your band saw filer's office, please see the address and telephone number listed on your After Visit Summary. Thank you, The Physicians and staff at [facility] UNDERSTANDING YOUR BLOOD PRESSURE & LAB RESULTS People who develop chronic kidney disease may have some or all of the following tests. This sheet is to help you understand the results: Blood Pressure: Achieving the blood pressure goals identified by your kidney doctor is very important in slowing the progression of your kidney disease. Always take blood pressure medications as directed. Other steps to follow may include cutting down on the amount of salt in your diet, losing excess weight and following a regular exercise program. Serum Creatinine: Creatinine is a waste product in your blood that comes from muscle activity. It is normally removed from your blood by your kidneys, but when kidney function slows down, the creatinine level rises. (Lab Normal Range: Male: 0.5--1.3, Female: 0.4--1.1) BUN (Blood Urea Nitrogen): BUN is a waste product in your blood that is normally removed from your body by the kidneys. When your kidney function slows down or if you become dehydrated, the BUN levels rise. (Lab Normal Range: 7--24) Glomerular Filtration Rate (GFR): Your GFR tells how much kidney function you have. It is calculated from your blood level of creatinine. (Lab Normal Range: Equal to or greater than 60) Potassium: Potassium is a mineral in your blood that helps your heart and muscles work properly, too much or too little potassium can be harmful to your heart and other muscles in your body. Potassium levels can be controlled by careful dietary restrictions. Our dietitian can help plan your diet toget the right amount of potassium. (Lab Normal Range: 3.5--5.1) Phosphorus: Failing kidneys do not remove phosphorus efficiently. A high phosphorus level can lead to weak bones. If your level is too high, your kidney doctor may ask you to reduce your intake of foods that are high in phosphorus and take medications called phosphate binders with your meals and snacks. (Lab Normal Range: 2.5--4.9) Calcium: Calcium is a mineral that is important for strong bones. To help balance the amount of calcium in your blood, your kidney doctor may ask you to take calcium supplements and Vitamin D. Take only the supplements and medications recommended by your kidney doctor. (Lab Normal Range: 8.5--10.1) Parathyroid Hormone (PTH): This hormone is a marker for your bone health. High levels may result from a poor balance of calcium and phosphorus in your body that can cause bone disease. Your kidney doctor may order a special prescription form of Vitamin D to help lower your PTH. (Lab Normal Range: 14--72) Hemoglobin: Hemoglobin is the part of red blood cells that carries oxygen from your lungs to all parts of your body. A low hemoglobin level indicates too few red blood cells, which is called anemia. Anemia can make you feel tired or have a low energy level. If you have anemia, you may need treatment with iron supplements or a hormone called erythropoietin (EPO). You will be referred to a [facility] ([facility]) to manage your anemia. (Lab Normal Range: Males: 14-18, Females: 12-16) TSAT and Serum Ferritin: Your TSAT (% iron saturation) and serum ferritin are measures of iron in your body. Abnormal values may indicate iron deficiency. Your kidney doctor may recommend iron supplements when needed. (Lab Normal Range: TSAT: 15--50; Serum Ferritin: 8--388) Cholesterol tests: Patients with kidney disease have an increased risk for cardiovascular disease (heart disease), therefore it is important that your cholesterol is well controlled. Dietary changes,exercise, and cholesterol lowering medication can lower cholesterol levels and decrease cardiovascular risk. Total Cholesterol: Cholesterol is a fat-like substance found in your blood. A high cholesterol level may increase your chance of having heart and circulation problems. For many patients, the target level is less than 200. HDL Cholesterol: HDL is a type of 'good' cholesterol that protects your heart. For many patients, the target level for HDL is above 40. LDL Cholesterol: LDL is a type of 'bad' cholesterol. A high LDL level may increase your chance of having heart and circulation problems. For many patients, a good level for LDL cholesterol is below 100, but some patients may have an even lower goal. Triglyceride: Triglyceride is a type of fat found in your body. A high triglyceride level along with high levels of total and LDL cholesterol may increase your chance of heart and circulation problems. For many patients, the target level is less than 150. HgbA1c: The HgbA1c is a marker of diabetes control for the past two to three months. Adequate diabetes control has been proven to slow the progression of kidney failure. (Lab Normal Range: Less than or equal to 5.6 if average glucose is less than or equal to 114.) Avoiding Non-Steroidal Anti-Inflammatory Drugs (NSAIDs) Taking medications called NSAIDS (list of names below) can damage your kidneys and we recommend youdo not take them. Because many patients do not recognize NSAIDs by their brand or generic names, there may be overlap in prescription and Over the Counter (OTC) use. NSAIDs are sold under many different brand names, so ask your pharmacist or health care provider if the medicines you take are safe to use. Below is a list of common NSAIDs: ibuprofen (Advil, Motrin, Midol, Wal-Profin) naproxen (Aleve, Naprosyn, Midol Extended Relief, Anaprox) meloxicam (Mobic), oxaprozin (Daypro), piroxicam (Feldene) celecoxib (Celebrex) indomethacin (Indocin) If you take OTC or prescription medicines for headaches, pain, fever, or colds, you may be taking NSAIDs. If you are unsure if a product contains an NSAID, ask your pharmacist or your health care provider. You can also look for product contents on the Drug Facts labels. documented in this encounter Progress Notes * Gabriel Hicks MD - 11/10/2023 3:30 PM CDT Images from the original note were not included. Patient: Mikayla Kuhn Date of : 1960 Chart: [id number] PCP: Barbara Valentin DO Referring Provider: Barbara Valentin Date of Service: 11/10/2023 Chief Complaint: I was asked by Elisabeth Valentin DO to evaluate Mikayla Kuhn for elevated creatinine Subjective: Patient is a 62-year-old woman with longstanding diabetes mellitus type 1 as well as CKD. She presents today to reestablish kidney care. She last saw my partner in May 2023 at our then-outreach clinic. Most recent labs performed in late September 2023 showing a sodium of 134, potassium 4.9, bicarbonate 28, glucose 490, calcium 9.2, BUN 46, and creatinine 1.95. Patient comes to clinic today with her close friend who also is her JOURNEYMAN SHEET METAL WORKER. No recent illnesses or hospitalizations. Tolerating her current medications nicely. Notes that she is taking diclofenac gel trudy regular basis. Assessment & Plan Problem List Chronic kidney disease stage 4 (HCC) - Primary Overview Baseline creatinine values in the high ones-2 range since 2017. Albuminuria first detected in October 2006. Urine albumin creatinine ratio 593 mg/g in 2011. Most recent assay at 104 mg/g in May 2023. Renal ultrasound December 2007: Right kidney 9.7 cm, left kidney 10.3 cm. Etiology of CKD related to small vessel disease, diabetic glomerulosclerosis, extensive NSAID exposure, and hypertensive nephrosclerosis. Current Assessment & Plan Stable GFR. Patient was asked to avoid further exposure to diclofenac gel since it is physiologic effects are unchanged and the same as any other orally ingested NSAID. Will tentatively plan to see her again in 6 months time. Otherwise she appears to be doing well overall. 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 Defer further to PCP. Chronic diastolic congestive heart failure (HCC) Overview Echocardiogram from October 2022 with EF of 60-65%. Current Assessment & Plan Appears well-managed overall. No evidence of decompensated heart failure on examination today. Secondary hyperparathyroidism of renal origin (HCC) (Chronic) Current Assessment & Plan PTH values at 221 in August 2021 and 153 in May 2023. No recent vitamin D totals. Nonetheless calcium level is fine. Phosphorus assessment at the next visit as well. Anemia of other chronic disease Current Assessment & Plan Baseline hemoglobin study between 11.5-12. Plan to reassess hemoglobin at the next visit. Most recent value was 11.5 on 02/28/2023. Return in about 6 months (around 05/12/2024). Gabriel Hicks MD [facility] The following portions of the patient's chart were reviewed in this encounter and updated as appropriate: Tobacco Allergies Meds Problems Med Hx Surg Hx Fam Hx Review of Systems All other systems reviewed and are negative. 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) Chronic diastolic congestive heart failure (HCC) Hypertensive heart and chronic kidney disease without heart failure, with stage 1 through stage 4 chronic kidney disease, or unspecified chronic kidney disease Secondary hyperparathyroidism of renal origin (HCC) Anemia of other chronic disease Obstructive sleep apnea Essential hypertension Urinary tract infectious disease History of Present Illness Past Medical History: Diagnosis Date Anemia Chronic airway obstruction, not elsewhere classified (HCC) Chronic kidney disease Congestive heart failure (HCC) Diabetes mellitus with renal manifestations, type II or unspecified type, not stated as uncontrolled (HCC) Diabetes mellitus without mention of complication, type II or unspecified type, not stated as uncontrolled (HCC) Essential hypertension Other and unspecified hyperlipidemia Sleep apnea Urinary tract infection Past Surgical History: Procedure Laterality Date ABDOMINAL SURGERY THYROID SURGERY Family History Problem Relation Age of Onset Stroke Mother Kidney disease Mother Sleep apnea Mother Diabetes Mother Cancer Father Sleep apnea Father Hypertension Father Diabetes Sister Heart disease Brother Stroke Brother Kidney disease Brother Hypertension Brother Diabetes Brother Sleep apnea Brother Stroke Mother's Sister Gout Mother's Brother Heart disease Mother's Brother Cancer Father's Sister Cancer Maternal Grandmother Diabetes Maternal Grandfather Hypertension Paternal Grandmother Dementia Paternal Grandfather Social History Tobacco Use Smoking status: Never Smokeless tobacco: Never Vaping Use Vaping Use: Never used Substance Use Topics Alcohol use: Not Currently Drug use: Never Taking? Provider acetaminophen (TYLENOL 8 HOUR) 650 MG 8 hr tablet Yuni Olea MD Take 650 mg by mouth every 8 (eight) hours if needed ammonium lactate (LAC-HYDRIN) 12 % lotion Yuni Olea MD Apply topically atorvastatin (LIPITOR) 20 MG tablet Yuni Olea MD Take 20 mg by mouth 1 (one) time each day Buprenorphine 5 MCG/HR patch weekly Yuni Olea MD APPLY 1 PATCH ON DRY, CLEAN, HAIRLESS SKIN ONCE WEEKLY. carboxymethylcellulose 1 % ophthalmic solution Yuni Olea MD Administer 1 drop into both eyes 4 (four) times a day if needed (dry eyes) cetirizine (ZyrTEC) 5 MG tablet Yuni Olea MD Take 5 mg by mouth 1 (one) time each day cholecalciferol (VITAMIN D-3) 50 MCG (1999 UT) capsule Yuni Olea MD Take 2,000 Units by mouth 1 (one) time each day cyanocobalamin (VITAMIN B-12) 1000 MCG tablet Yuni Olea MD Take 1,000 mcg by mouth 1 (one) time each day DULoxetine (CYMBALTA) [address] capsule Yuni Olea MD TAKE ONE CAPSULE BY MOUTH ONCE DAILY FLUoxetine (PROzac) 10 MG capsule Yuni Olea MD TAKE 1 CAPSULE (10 MG) BY MOUTH ONCE DAILY. Glucagon (Baqsimi One Pack) 3 MG/DOSE powder Yuni Olea MD Inhale 1 Kenedy into affected nostril(s) each time if needed for Severe Hypoglycemia. Roll on side and call 911 after administration. HumaLOG 100 UNIT/ML solution Yuni Olea MD Inject 6-8u SubQ TID AC, 4u SubQ BID with snack depending on carb intake ipratropium-albuterol (DUO-NEB) 0.5-2.5 mg/3 mL nebulizer solution Yuni Olea MD Take 3 mL by nebulization every 6 (six) hours if needed for wheezing Ketoconazole-Hydrocortisone 2 & 1 % kit Yuni Olea MD Apply topically Lantus SoloStar 100 UNIT/ML injection Yuni Olea MD Inject 13 units subcutaneous before bedtime. Product desired: LANTUS SOLOSTAR levothyroxine (SYNTHROID, LEVOTHROID) 125 MCG tablet Yuni Olea MD TAKE 1 TABLET (125 MCG) BY MOUTH ONCE DAILY. metoprolol succinate XL (TOPROL XL) 25 MG 24 hr tablet Yuni Olea MD TAKE ONE TABLET (25 MG) BY MOUTH ONCE DAILY. Naloxone HCl 4 MG/0.1ML liquid Yuni Olea MD INHALE 1 SPRAY INTO AFFECTED NOSTRIL(S) EACH TIME IF NEEDED FOR PATIENT DIFF TO AROUSE OR RESP RATE<8/MIN. ADD. DOSES MAY BE GIVEN EVERY 2-3 MIN. omeprazole (PriLOSEC) [address] capsule Yuni Olea MD TAKE 1 CAPSULE (20 MG) BY MOUTH ONCE DAILY BEFORE A MEAL. oxyCODONE (ROXICODONE) 5 MG immediate release tablet Yuni Olea MD TAKE 1 TABLET TWICE A DAY NEEDED FOR OA PAIN/DIABETIC PAIN. MAX DOSE IS 2 TABS PER DAY. USE DATES 10/24/23-11/22/23 polyethylene glycol (GLYCOLAX) 17 GM/SCOOP powder Yuni Olea MD MIX 17GMS IN 8OZ LIQUID AND DRINK ONCE DAILY NEEDED FOR CONSTIPATION pregabalin (LYRICA) 100 MG capsule Yuni Olea MD TAKE TWO CAPSULES (200MG) BY MOUTH EVERY MORNING AND ONE CAPSULE IN THE EVENING WITH THE (50MG) TO TOTAL 150MG pregabalin (LYRICA) 50 MG capsule Yuni Olea MD TAKE ONE CAPSULE BY MOUTH EVERY EVENING WITH 1-100MG CAPSULE TO TOTAL 150MG senna-docusate (PERICOLACE) 8.6-50 MG per tablet Yuni Olea MD TAKE TWO TABLETS BY MOUTH TWO TIMES DAILY NEEDED FOR CONSTIPATION. torsemide (DEMADEX) 20 MG tablet Yuni Olea MD TAKE TWO TABLETS BY MOUTH (40MG) ONCE DAILY Allergies Allergen Reactions Penicillins Anaphylaxis and Rash Rash as a child Sulfa Antibiotics Anaphylaxis Aspirin Not able to take asa do to gastric bypass surgery Nsaids Other (see comments) Pt had gastric bypass surgery, should not take oral NSAIDS. Physical Exam BP 134/68 (BP Location: Right upper arm, Patient Position: Sitting, BP Cuff Size: Large adult) Pulse 68 Ht 5' (1.524 m) Wt 213 lb (96.6 kg) SpO2 (!) 89% BMI 41.60 kg/m?? Vitals reviewed. Cardiovascular: Normal rate and regular rhythm. She exhibits no edema. Pulmonary/Chest: Effort normal. Rare crackles at the left base but otherwise clear with no wheezing. Abdominal: Soft. Bowel sounds are normal. Musculoskeletal: Normal range of motion. Skin: Skin is warm and dry. Psychiatric: She has a normal mood and affect. Her behavior is normal. Judgment normal. Chemistry and Bone Mineral Lab Units 09/21/23 0000 05/19/23 0000 11/23/22 0000 SODIUM mEq/L 134* 139 141 POTASSIUM mEq/L 4.9 5.8* 5.7* CHLORIDE 95* 96* 98 CO2 mmol/L 28 35* 33* CALCIUM mg/dL 9.2 9.2 9.3 PHOSPHORUS mg/dL -- 4.2 -- ALK PHOS U/L -- -- 122* GLUCOSE mg/dL 490* 380* 339* ALBUMIN g/dL -- 3.6* 3.5* BUN mg/dL 46* 44* 34* CREATININE mg/dL 1.95* 2.16* 1.91* EGFR 29* 25* 30* CBC and Iron Studies Lab Units 02/28/23 0000 WBC AUTO K/uL 4.6 HEMATOCRIT % 36.6 HEMOGLOBIN g/dL 11.5* MCV 94 PLATELETS AUTO 233 No lab exists for component: GLUCOSEUR, BILIRUBINUR, SPECGRAV, RBCUR, LEUKOCYTESUR, NITRITE I have performed a complete review of pertinent lab results. documented in this encounter Miscellaneous Notes * Assessment & Plan Note - Gabriel Hicks MD - 11/10/2023 4:17 PM CDTAssociated Problem(s): Chronic diastolic congestive heart failure (HCC) Appears well-managed overall. No evidence of decompensated heart failure on examination today. * Assessment & Plan Note - Gabriel Hicks MD - 11/10/2023 4:17 PM CDTAssociated Problem(s): Chronic kidney disease stage 4 (HCC) Stable GFR. Patient was asked to avoid further exposure to diclofenac gel since it is physiologic effects are unchanged and the same as any other orally ingested NSAID. Will tentatively plan to see her again in 6 months time. Otherwise she appears to be doing well overall. * Assessment & Plan Note - Gabriel Hicks MD - 11/09/2023 11:51 AM CDTAssociated Problem(s): Anemia of other chronic disease Baseline hemoglobin study between 11.5-12. Plan to reassess hemoglobin at the next visit. Most recent value was 11.5 on 02/28/2023. * Assessment & Plan Note - Gabriel Hicks MD - 11/09/2023 11:42 AM CDTAssociated Problem(s): Secondary hyperparathyroidism of renal origin (HCC) PTH values at 221 in August 2021 and 153 in May 2023. No recent vitamin D totals. Nonetheless calcium level is fine. Phosphorus assessment at the next visit as well. 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 Defer further to PCP. 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
--- OUTSIDE RECORDS SUMMARY | 2023-12-09 12:52 | XMS_ITS | Encounter Summary ---
Author Organization [facility] Address [address] [place] [address] Care Team Providers Care Duck Bill Operator Name Role Phone Barbara Valentin DO Primary Care Provider Kevin zepeda Encounter Details Date Type Department Care Team (Late st Contact Info) Description 09/23/2023 Office Communication [facility] [address] [place] [address] Barbara Valentin DO [address] [place] [address] Social History Tobacco Use Types Packs/Day Years Used Date Smoking Tobacco: Never Assessed Sex and Gender Information Value Date Recorded Sex Assigned at Not on file Gender Identity Not on file Sexual Orientation Not on file documented as of this encounter Miscellaneous Notes * Telephone Encounter - Katie Owen - 10/21/2023 3:32 PM CDT Patient is being mailed a new patient packet for 11/[address] Hicks. * Telephone Encounter - Jessika Urbano - [...] on filedocumented in this encounter Care Teams Duck Bill Operator Relationship Specialty Start Date End Date Barbara Valentin DO [address] [place] [address] PCP - General Family Medicine 09/22/23 documented as of this encounter
--- OUTSIDE RECORDS SUMMARY | 2023-12-09 12:52 | XMS_ITS | Encounter Summary ---
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
--- OUTSIDE RECORDS SUMMARY | 2023-12-09 12:52 | XMS_ITS | Clinical Summary ---
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 1 Each 03/12/20 21 Active glucagon (Baqsimi) 3 mg/actuation nasal sprayIndications:p atient with diabetes mellitus at risk of hypoglycemia Inhale 1 Wiota into affected nostril(s) each time if needed [...] nasal solution (FLONASE)Indicatio ns:Nasal congestion Inhale 1 Wi[place] into affected nostril(s) once daily. Inhale 1 Wiota in the nostril(s) once daily. 16 g 01/12/20 22 Active Walker - 4 wheelsIndications: Chronic pain syndrome,Foot drop, bilateral,Osteoart hritis of both hips, unspecified osteoarthritis type,Spinal cord lesion (HC) With seat - For home use. Length of need: 99 1 Each 06/10/20 Active CPAPIndications:Se nolan obstructive sleep apnea CPAP machine for home [...] Frequency of use: Daily 1 Each 09/22/19 23 Active Per-Fit UnderwearIndicatio ns:Urinary incontinence, unspecified type ADULT PULL UPS XL THREE TIMES A DAY DIRECTED 96 Each 11 12/03/19 23 Active naloxone (NARCAN) 4 mg/actuation nasal [...] protector for hospital bed 1 Each 01/29/20 Active diclofenac topical (VOLTAREN) 1 % gelIndications:Chr onic pain syndrome,Osteoarth ritis, unspecified osteoarthritis type, unspecified site APPLY 1 GRAM TOPICALLY TO AFFECTED AREA(S) FOUR TIMES A DAY 350 g 2 02/03/20 Active ammonium lactate 12% topical (LACHYDRIN) 12 % lotionIndications: Dry skin dermatitis APPLY TOPICALLY DAILY TO BILATERAL FEET DIRECTED 396 g 3 02/03/20 Active cetirizine (ZYRTEC) 5 mg tabletIndications: Wheezing TAKE ONE TABLET (5 MG) BY MOUTH ONCE DAILY. 90 Tablet 2 02/17/20 Active DULoxetine (CYMBALTA) 60 mg Delayed-release capsuleIndications [...] 2 04/20/20 Active continuous glucose monitor READER (InCrowdStyle Elli 2 [place])Indications :Type 1 diabetes mellitus with other specified complication (HC) To be used to read blood sugars per manager online's directions. 1 Each 05/19/20 Active blood-glucose meterIndications:T [...] times per day. 400 Each 3 05/19/20 23 Active lancetsIndications :Type 1 diabetes mellitus with other specified complication (HC) As directed. Test 4 times per day. 400 Each 3 05/19/20 23 Active pregabalin (LYRICA) 100 mg capsuleIndications :Chronic pain syndrome TAKE TWO CAPSULES (200MG) BY MOUTH EVERY MORNING AND ONE CAPSULE IN THE EVENING WITH THE (50MG) TO TOTAL 150MG 90 Capsule 5 06/16/20 23 Active torsemide (DEMADEX) 20 mg tabletIndications: Hyperkalemia,Local ized edema TAKE TWO TABLETS BY MOUTH (40MG) ONCE DAILY 60 Tablet 3 09/09/19 24 Active continuous glucose monitor SENSOR KIT (FreeStyle Elli 2 Sensor)Indications :Type 1 diabetes mellitus with other specified complication (HC) As directed. To be used to read blood sugars per manager online's directions. 6 Each 3 09/06/19 24 Active omeprazole (PRILOSEC) 20 mg Delayed-Release capsuleIndications :Chronic GERD Take 1 Capsule (20 mg) by mouth once daily before a meal. 90 Capsule 1 09/06/19 24 Active insulin lispro (HumaLOG U-100 Insulin) 100 unit/mL injectionIndicatio ns:Diabetes mellitus type 1 with complications (HC) INJECT 4 UNITS SUBCUTANEOUSLY WITH MEALS THREE TIMES DAILY 10 mL 3 09/06/19 24 Active acetaminophen SR (TYLENOL ARTHRITIS) [...] DAILY. 90 Tablet 2 09/22/19 24 Active albuterol-ipratrop ium (DUONEB) (2.5-0.5 mg) in 3 mL NEBULIZATION solutionIndication s:Chronic obstructive pulmonary disease, unspecified COPD type (HC) Inhale 3 mL via a nebulizer 4 times daily if needed for Wheezing. 180 mL 09/21/19 24 Active Lantus Solostar U-100 Insulin [...] weekly. 4 Patch 3 09/27/19 24 Active cyanocobalamin (VITAMIN B12) 1,000 mcg tabletIndications: B12 deficiency TAKE ONE TABLET BY MOUTH ONCE DAILY 90 Tablet 2 10/11/19 24 Active pregabalin (LYRICA) 50 mg capsuleIndications :Diabetic peripheral neuropathy (HC) TAKE ONE CAPSULE BY MOUTH EVERY EVENING WITH 1-100MG CAPSULE TO TOTAL 150MG 30 Capsule 5 10/12/19 24 Active insulin lispro (HumaLOG U-100 Insulin) 100 unit/mL injectionIndicatio ns:Diabetes mellitus type 1 with complications (HC) Inject 6-8u SubQ TID AC, 4u SubQ BID with snack depending on carb intake 10 mL 3 11/01/19 24 Active levothyroxine (SYNTHROID) 125 mcg tabletIndications: Hypothyroidism (acquired) TAKE 1 TABLET (125 MCG) BY MOUTH ONCE DAILY. 60 Tablet 11/16/19 24 Active FLUoxetine (PROZAC) 10 mg capsuleIndications :Moderate episode of recurrent major depressive disorder (HC) TAKE 1 CAPSULE (10 MG) BY MOUTH ONCE DAILY. 60 Capsule 11/16/19 24 Active oxyCODONE (ROXICODONE) 5 mg immediate release tabletIndications: Chronic pain syndrome,Neuropath y due to secondary diabetes (HC) Si p.o. B.I.D. / PRN For O.A. pain or Diabetic P.N. Pain ; max: 2 a day. Use dates: 11/23/23-12/22/23 60 Tablet 11/18/19 24 Active cholecalciferol (VITAMIN D3) 2,000 unit capsuleIndications :Vitamin D deficiency Take 1 Capsule (2,000 units) by mouth once daily. 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 TO USE FOR INSULIN ADMINISTRATION FOUR TIMES DAILY 400 Each 3 12/08/19 24 Active Insulin Daniels, Disposable, (UltiCare Pen Needle) 32 gauge x Indications:D iabetes mellitus type 1 with complications (HC) TO USE FOR INSULIN ADMINISTRATION FOUR TIMES DAILY 400 Each 3 06/15/20 22 024 Discontinued cholecalciferol (VITAMIN D3) 2,000 unit capsuleIndications :Vitamin D deficiency TAKE ONE CAPSULE BY MOUTH ONCE DAILY 90 Capsule 2 02/24/20 23 024 Discontinued levothyroxine (SYNTHROID) 125 mcg tabletIndications: Hypothyroidism (acquired) TAKE 1 TABLET (125 MCG) BY MOUTH ONCE DAILY. 90 Tablet 2 02/24/20 23 024 Discontinued FLUoxetine (PROZAC) 10 mg capsuleIndications :Moderate episode of recurrent major depressive disorder (HC) Take 1 Capsule (10 mg) by mouth once daily. 30 Capsule 1 09/21/19 24 024 Discontinued oxyCODONE (ROXICODONE) 5 mg immediate release tabletIndications: Chronic pain syndrome,Neuropath y due to secondary diabetes (HC) Si p.o. B.I.D. / PRN For O.A. pain or Diabetic P.N. Pain ; max: 2 a day. Use dates: 10/24/23-11/22/23 60 Tablet 10/21/19 24 024 Discontinued(Re order (E-cancel not sent)) Active Problems Patient Care Coordination No te Formatting of this note migh t be different from the original. Family and Getting more independent is what matters most to Kati. Kati would like her care team to know she has supportive family. What are Kati's challenges, stressors, or barriers? Mobility, finances. Problem Noted Date Diagnosed Date Controlled substance agreement signed - 10/07/23 10/07/2023 Overview: [facility] [place] .................... 10/07/2023 4:39 [...] hypoxia which led to extended stay in assisted care 07/2015- 05/2017 Hospitalized with ketoacidosis 06/2017 [...] post total right knee replacement 01/02/2015 06/10/2017 long term care pharmacist (current) use of anticoagulants 11/27/2013 12/28/2013 Anticoagulation [...] Headache(784.0) 09/09/2006 06/10/2017 Controlled type 1 diabetes m ellitus with stage 1 chronic kidney disease 05/25/2002 7 Encounters Date Type Department Care Team Description 12/08/2023 Refill [facility] [address] [place] [address] Barbara Valentin, DO Refill Request (Ulticare Pen Needle, Per-fit Underwear) 12/07/2023 Refill [facility] [address] [place] [address] Barbara Valentin, DO Refill Request (Ulticare Pen Needle) 11/29/2023 Telephone [facility] [address] [place] [address] Barbara Valentin, DO Referral 11/29/2023 Refill [facility] [address] [place] [address] Barbara Valentin, DO Refill Request (Cholecalciferol) 11/18/2023 Refill [facility] [address] [place] [address] Toshia Hokos, CLINICAL SERVICES PROFESSIONAL Refill Request (oxycodone 5 mg at [facility]) 11/17/2023 Telephone [facility] [address] [place] [address] Barbara Valentin, DO Questions (Vish rod R.N. window caser with [facility] and [facility] has some questions for pcp) 11/15/2023 Refill [facility] [address] [place] [address] Shaqra, Barbara Patricia, DO Refill Request (Levothyroxine, Fluoxetine) 11/11/2023 Telephone [facility] [address] [place] [address] Barbara Valentin Patricia, DO questions and concerns (vish jennings R.N. called in with questions and concerns for PCP) 10/26/2023 Telephone [facility] [address] [place] [address] Barbara Valentin, DO Medication Management 10/18/2023 Refill [facility] [address] [place] [address] Toshia Hooks, CLINICAL SERVICES PROFESSIONAL Refill Request 10/11/2023 Refill [facility] [address] [place] [address] Barbara Valentin, DO Refill Request (Cyanocobalamin, Pregabalin) 10/07/2023 4:00 PM CDT Office Visit [facility] [address] [place] [address] Toshia Hooks, CLINICAL SERVICES PROFESSIONAL Follow Up; Foot Numbness (It is controlled with her care as it is. ); Depression (She feels like things are dark & needs to Put lights on. Just had Prozac initiated. Too soon to notice any difference. She asked her son Nikolai to let her know if he notices any difference. ); Lab 10/07/2023 Travel 10/06/2023 Telephone [facility] [address] [place] [address] Barbara Valentin Patricia, DO Follow Up 09/27/2023 Refill [facility] [address] [place] [address] Harjit Green NP Refill Request (Buprenorphine) 09/22/2023 Telephone [facility] [address] [place] [address] Barbara Valentin Patricia, DO Results 09/21/2023 3:25 PM CDT Office Visit [facility] [address] [place] [address] Barbara Valentin DO Diabetes; Medication Management 09/21/2023 Travel 09/20/2023 Refill [facility] [address] [place] [address] Harjit Green NP Refill Request 09/13/2023 Refill [facility] [address] [place] [address] Elian Humphrey MD Refill Request (Metoprolol Succinate) 09/13/2023 Refill [facility] [address] [place] [address] Barbara Valentin DO Refill Request (Acetaminophen Sr, Polyethylene Glycol) from Last 3 Months Immunizations Name Administration Dates Next Due AMB Influenza, IIV3 (Age >=3 years)(Flu Clinic Only) 05/17/2013,05/06/2010 COVID-19 vaccine (AC Immune SA-Bio NTech 30mcg/0.3mL) 12YO+ BIVALENT PF, MDV 04/28/2022 COVID-19 vaccine (AC Immune SA-Bio NTech 30mcg/0.3mL) PF, MDV 06/23/2021 Hepatitis B [...] T Respiratory Rate 14 08/24/2022 2:38 PM PRODUCTION MACHINE COMPUTER OPERATOR Oxygen Saturation 93% 10/07/2023 4:16 PM CDT Inhaled Oxygen Concentration - - Weight 96.7 kg (213 lb 3.2 oz) 02/28/2023 3:16 P M CDT Height 152.4 cm (5') 01/02/2019 8:57 PM CDT Body Mass Index 41.64 01/02/2019 8:57 PM CDT Plan of Treatment Upcoming Encounters Date Type Department Care Team (Late st Contact Info) Description 12/23/2023 2:45 PM CDT Orders Only [facility] [address] [facility] [address] [place], [place] 12/23/2023 3:00 PM CDT Office Visit [facility] [address] [place] [address] Barbara Valentin Patricia, DO [address] [place] [address] 01/06/2024 4:00 PM CDT Office Visit [facility] [address] [place] [address] Toshia Hooks, CLINICAL SERVICES PROFESSIONAL [address] [place], [place] [id number] Health Maintenance Due Date Last Done Comments Zoster (shingles) series for age 50+ (1 of 2) 12/19/2011 Pap test for age 21-65 08/17/2015 08/17/2012, 2010 Tetanus booster 08/25/2020 08/25/2010, 12/04, 12/30/2002 COVID-19 vaccine series ( season) 2023 04/28/2022, 06/23/2021, 09/24/2020 Mammogram for age 45-75 04/28/2023 04/28/20 22, 03/02/2018, 07/26/2013, Additional history exists Depression screening for age 12+ 08/17/2023 08/17/2022, 08/17/2019, 08/17/2019, Additional history exists Influenza for age 50-64 03/04/2024 04/28/20 22, 04/28/2021, 03/18/2020, Additional history exists Fecal testing sDNA-FIT (Dixie guard) for age 45-75 11/10/2024 11/10/2021 Pneumococcal series for age 6-64 (3 of 3 - PPSV23 or PCV20) 2026 08/17/2016, 08/14/2014, 07/04/2005, Additional history exists Lipids for age 45-75 04/28/2027 04/28/2022, 08/17/2019, 08/31/2018, Additional history exists Tdap Completed 08/25/2010 HIV for age 15-65 Completed 07/21/2015 Hepatitis C screening for ag e 18-79 Completed 02/16/2018 Medical Devices Implanted Type Area Instrument Mechanic Device Identifier Shelf Expiration Date Model / Serial / Lot [id number] 2x12mm [[id number]] Implanted:Qty: 1 on 08/08/2008 at [facility] Explanted:at [facility] (Quantity not on file) [employer] [id number]# / [id number] / Stem Compnt Primary 8mm Mini - [id number] Implanted:Qty: 1 on 03/17/2011 at [facility] Right: Shoulder BIOMET [id number]# / / [id number] Head Hum Bio-Mod [id number] - [id number] Implanted:Qty: 1 on 03/17/2011 at [facility] Right: Shoulder BIOMET [id number]# / / [id number] Base Glenoid Hybrid 4mm Sm - [id number] Implanted:Qty: 1 on 03/17/2011 at [facility] Right: Shoulder BIOMET [id number]# / / [id number] Cmnt 1/2 Dosehowmedica - [id number] Implanted:Qty: 1 on 03/17/2011 at [facility] Right: Shoulder [employer] 6188-1-01 0# / / [id number] Post Glenoid Hybrid Regenerex - [id number] Implanted:Qty: 1 on 03/17/2011 at [facility] Right: Shoulder BIOMET [id number] # / / [id number] Head Humeral 44x15 Co Cr Biomodular - [id number] Implanted:Qty: 1 on 07/12/2012 at [facility] Left: Shoulder BIOMET [id number]# / / [id number] Shoulder Stem Implanted:Qty: 1 on 07/12/2012 at [facility] Left: Shoulder [id number] / / [id number] Description:SHOULDER STEM Cmnt Bone 1/2 Dosehowmedica - [id number] Implanted:Qty: 1 on 07/12/2012 at [facility] Left: Shoulder [employer] 6188-1-01 0# / / [id number] Post Glenoid Hybrid Regenerex - [id number] Implanted:Qty: 1 on 07/12/2012 at [facility] Left: Shoulder BIOMET [id number] # / / [id number] Base Glenoid Hybrid 4mm Sm - [id number] Implanted:Qty: 1 on 07/12/2012 at [facility] Left: Shoulder BIOMET [id number]# / / [id number] Procedures Procedure Name Priority Date/Time Associated Diagnosis Comments COMPLIANCE DRUG ANALYSIS Routine 10/07/2023 4:00 PM CDT Encounter for therapeutic drug monitoring BASIC METABOLIC PANEL Routine 09/21/2023 3:38 PM [...] HIV 1/2 Add On 07/21/2015 9:40 AM PRODUCTION MACHINE COMPUTER OPERATOR HEALTHCARE ANALYST THIN PREP PAP SCREEN IMAGED Routine 08/17/2012 4:02 PM PRODUCTION MACHINE COMPUTER OPERATOR Screening for malignant neoplasm of the cervix from Last 3 Months or Most Recently Relevant to Health Maintenance Results * (ABNORMAL) COMPLIANCE DRUG ANALYSIS (10/07/2023 4:00 PM CDT) 6-MONOACETYL MORPHINE NEG NEG ng/mL 10/12/2023 2:04 PM T [facility] AMPHETAMINE URINE NEG <=500 ng/mL 10/12/2023 2:04 PM [facility] BARBITURATE URINE NEG <=200 ng/mL 10/12/2023 2:04 PM T [facility] BENZODIAZEPINE URINE NEG <=100 ng/mL 10/12/2023 2:04 PM [facility] BUPRENORPHRINE URINE NEG <=5 ng/mL 10/02 2:04 PM [facility] COCAINE METAB URINE NEG <=300 ng/mL 10/12/2023 2:04 PM [facility] ETHYLGLUCURONIDE URINE NEG <=250 ng/mL 10/12/2023 2:04 PM [facility] FENTANYL URINE NEG <=4 ng/mL 10/12/2023 2:04 PM [facility] METHADONE URINE NEG <=300 ng/mL 10/12/2023 2:04 PM [facility] OPIATES URINE NEG <=300 ng/mL 10/12/2023 2:04 PM [facility] OXYCODONE URINE POS(A) <=100 ng/mL 10/12/2023 2:04 PM [facility] PROPOXYPHENE URINE NEG <=300 ng/mL 10/12/2023 2:04 PM [facility] THC 50 URINE NEG <=50 ng/mL 10/12/2023 2:04 PM [facility] TRAMADOL NEG <=200 ng/mL 10/12/2023 2:04 PM [facility] PH URINE 5.2 5.0 - 7.0 10/12/2023 2:04 PM [facility] CREAT UR 28 >=20 mg/dL 10/12/2023 2:04 PM CDT [facility] MASS SPECTROMETRY URINE See Below 10/12/2023 2:04 PM CDT [facility] Comment:Acetaminophen, Oxyco done and Oxycodone metabolites present. Urine URINE SPECIMEN / Unknown Non-Blood / Unknown 10/07/2023 4:00 PM CDT 10/08/2023 9:15 AM CDT Narrative [facility] - 10/12/2023 2:04 PM CDT Current Outpatient Medications: acetaminophen SR (TYLENOL ARTHRITIS) 650 mg Extended-Release tablet, TAKE TWO TABLETS BY MOUTH EVERY EIGHT HOURS albuterol-ipratropium (DUONEB) (2.5-0.5 mg) in 3 mL NEBULIZATION solution, Inhale 3 mL via a nebulizer 4 times daily if needed for Wheezing. amLODIPine (NORVASC) 2.5 mg tablet, Take 1 Tablet (2.5 mg) by mouth two times daily. ammonium lactate 12% topical (LACHYDRIN) 12 % lotion, APPLY TOPICALLY DAILY TO BILATERAL FEET DIRECTED atorvastatin (LIPITOR) 20 mg tablet, Take 1 Tablet (20 mg) by mouth at bedtime. Blood Pressure Test Kit-Wrist kit, As directed. blood sugar diagnostic (Blood Glucose Test) strip, Test 4 times per day. blood sugar diagnostic (Color Weigher Express Test Strip) strip, Test blood sugar 4 times dialy. E10.65 IDDM type I, uncontrolled - Test 4 times/day. Reason: High A1C blood-glucose meter, As directed. Dispense meter, test strips, lancets covered by pt ins. E10.9 IDDM type I - Test 4 times/day. Reason: Unstable diabetes buprenorphine 5 mcg/hr (BUTRANS) 5 mcg/hour transdermal patch, Apply 1 Patch on dry, clean, hairless skin once weekly. cetirizine (ZYRTEC) 5 mg tablet, TAKE ONE TABLET (5 MG) BY MOUTH ONCE DAILY. Chair Lift, For home use. cholecalciferol (VITAMIN D3) 2,000 unit capsule, TAKE ONE CAPSULE BY MOUTH ONCE DAILY continuous glucose monitor READER (InCrowdStyle Elli 2 [place]), To be used to read blood sugars per manager online's directions. continuous glucose monitor SENSOR KIT (FreeStyle Elli 2 Sensor), As directed. To be used to read blood sugars per manager online's directions. CPAP, CPAP machine for home use at pressure: 12.2 cmw , Heated humidifier x 1 q 5 yr, Humidifier chamber x 1 q 6 mo, Full face mask x1 q 3mos, ??with cushion x 1 q mo, Heated tubing x 1 q 3 mo, Headgear x 1 q 6 mo, Filters: Disposable x 2 q mo non-disposable filters x1 q 6mo, Length of Need: 99 months, Frequency of use: Daily cyanocobalamin (VITAMIN B12) 1,000 mcg tablet, TAKE ONE TABLET BY MOUTH ONCE DAILY diclofenac topical (VOLTAREN) 1 % gel, APPLY 1 GRAM TOPICALLY TO AFFECTED AREA(S) FOUR TIMES A DAY DULoxetine (CYMBALTA) 60 mg Delayed-release capsule, Take 1 Capsule (60 mg) by mouth once daily. durable medical equipment (DME), Seasonal affective disorder lamp durable medical equipment (DME), Hospital bed mattress, railings, foot protector for hospital bed Elevated Toilet Seat with Arms, For home use. FLUoxetine (PROZAC) 10 mg capsule, Take 1 Capsule (10 mg) by mouth once daily. fluticasone (50 mcg per actuation) nasal solution (FLONASE), Inhale 1 Wiota into affected nostril(s) once daily. Inhale 1 [place]ota in the nostril(s) once daily. glucagon (Baqsimi) 3 mg/actuation nasal spray, Inhale 1 Wiota into affected nostril(s) each time if needed for Severe Hypoglycemia. Roll on side and call 911 after administration. hydrocortisone 1 % cream, APPLY TOPICALLY TO AFFECTED AREA(S) TWICE A DAY insulin lispro (HumaLOG U-100 Insulin) 100 unit/mL injection, INJECT 4 UNITS SUBCUTANEOUSLY WITH MEALS THREE TIMES DAILY insulin lispro, U-100, (HUMALOG KWIKPEN; ADMELOG SOLOSTAR) 100 unit/mL inpn pen, Inject 4 units subcutaneous three times daily before meals. Product desired: HUMALOG KWIKPEN Insulin Daniels, Disposable, (UltiCare Pen Needle) 32 gauge x 5/32, TO USE FOR INSULIN ADMINISTRATION FOUR TIMES DAILY insulin syringe-needle u-100 (UltiCare) 1 mL 31 gauge x 5/16, For administering insulin at home.FOR ADMINISTERING INSULIN SUBCUTANEOUSLY AT HOME lancets, As directed. Test 4 times per day. Lantus Solostar U-100 Insulin 100 unit/mL (3 mL) pen, Inject 13 units subcutaneous before bedtime. Product desired: LANTUS SOLOSTAR levothyroxine (SYNTHROID) 125 mcg tablet, TAKE 1 TABLET (125 MCG) BY MOUTH ONCE DAILY. metoprolol succinate (TOPROL XL) 25 mg Sustained-Release tablet, TAKE ONE TABLET (25 MG) BY MOUTH ONCE DAILY. miscellaneous medical supply [facility], As directed. Wipe aide naloxone (NARCAN) 4 mg/actuation nasal spray, INHALE 1 SPRAY INTO AFFECTED NOSTRIL(S) EACH TIME IF NEEDED FOR PATIENT DIFF TO AROUSE OR RESP RATE <8/MIN. ADD. DOSES MAY BE GIVEN EVERY 2-3 MIN. omeprazole (PRILOSEC) 20 mg Delayed-Release capsule, Take 1 Capsule (20 mg) by mouth once daily before a meal. oxyCODONE (ROXICODONE) 5 mg immediate release tablet, Si p.o. B.I.D. / PRN For O.A. pain or Diabetic P.N. Pain ; max: 2 a day. Use dates: 09/24/23-10/23/23 Per-Fit Underwear, ADULT PULL UPS XL THREE TIMES A DAY DIRECTED polyethylene glycoL (MIRALAX) 17 gram/scoop powder, MIX 17GMS IN 8OZ LIQUID AND DRINK ONCE DAILY NEEDED FOR CONSTIPATION pregabalin (LYRICA) 100 mg capsule, TAKE TWO CAPSULES (200MG) BY MOUTH EVERY MORNING AND ONE CAPSULE IN THE EVENING WITH THE (50MG) TO TOTAL 150MG pregabalin (LYRICA) 50 mg capsule, TAKE ONE CAPSULE BY MOUTH EVERY EVENING WITH 1-100MG CAPSULE TO TOTAL 150MG sennosides-docusate (Stool Softener-Stimulant Laxat) (8.6-50 mg) tablet, TAKE TWO TABLETS BY MOUTH TWO TIMES DAILY NEEDED FOR CONSTIPATION. torsemide (DEMADEX) 20 mg tablet, TAKE TWO TABLETS BY MOUTH (40MG) ONCE DAILY Underpads pads, As directed. Walker - 4 wheels, With seat - For home use. Length of need: 99 No current facility-administered medications for this visit. As of 10/07/2023 Release to patient->Immediate Toshia M Edwardson CLINICAL SERVICES PROFESSIONAL URINE [facility] [address] [place] [address], [place] * (ABNORMAL) HEMOGLOBIN A1C MONITORING (POCT) (09/21/2023 3:38 PM CDT) HEMOGLOBIN A1C MONITORING (POCT) 7.7(H) <=6.4 % 09/21/2023 3:50 PM CDT [facility] Blood BLOOD SPECIMEN / Unknown Butterfly / Unknown 09/21/2023 3:38 PM CDT 09/21/2023 3:40 PM CDT Narrative [facility] - 09/21/2023 3:50 PM CDT ? (<=6.9%) [...] Anemias, Splenectomy ? Barbara Valentin DO CHEMISTRY Performing Organization Address [facility]/ZIP Co de Phone Number [facility] [address] [place] [address], [place] [phone] * (ABNORMAL) BASIC METABOLIC PANEL (09/21/2023 3:38 PM CDT) SODIUM 134(L) 136 - 145 mmol/L 09/21/2023 11:21 PM CDT [facility] POTASSIUM 4.9 3.5 - 5.1 mmol/L 09/21/2023 11:21 PM CDT [facility] CHLORIDE 95(L) 98 - 107 mmol/L 09/21/2023 11:21 PM CDT [facility] CO2,TOTAL 28 22 - 29 mmol/L 09/21/2023 11:21 PM CDT [facility] ANION GAP 11 5 - 18 09/21/2023 11:21 PM CDT [facility] GLUCOSE 490(H) 70 - 99 mg/dL 09/21/2023 11:21 PM CDT [facility] CALCIUM 9.2 8.8 - 10.2 mg/dL 09/21/2023 11:21 PM CDT [facility] BUN 46(H) 8 - 23 mg/dL 09/21/2023 11:21 PM CDT [facility] CREATININE 1.95(H) 0.50 - 0.90 mg/dL 09/21/2023 11:21 PM CDT [facility] BUN/CREAT RATIO 24(H) 10 - 20 11:21 PM CDT [facility] eGFR 29(L) >90 mL/min/1.7 3m2 09/21/2023 11:21 PM CDT [facility] Comment:As of 2021, eG FR [...] 3:40 PM CDT Barbara Valentin DO CHEMISTRY [facility] [address] [place] [address], * XR MAMMO BILAT SCREENING (04/28/2022 2:04 [...] For Patients: As a result of the Cures Act, medical imaging exams and procedure reports are released immediately into your electronic medical record. You may view this report before your referring provider. If you have questions, please contact your health care provider. XR MAMMO BILAT SCREENING [[id number]] CLINICAL HISTORY: ??This is an asymptomatic 61 y.o. patient. INDICATION FOR EXAM: Mammogram Screening. TECHNIQUE: CC & MLO views were obtained. ??This study was evaluated with the assistance of Computer-Aided Detection. COMPARISON FILM: Yes 03/02/18 [facility] 07/26/13 [facility] FINDINGS: ??The breasts are extremely dense, which lowers the sensitivity of mammography. There are no dominant masses, suspicious micro calcifications or areas of architectural distortion. Shania Monteil MD MAMMO * LIPID PANEL W REFLEX MEASURED LDL (04/28/2022 1:44 PM CDT) CHOLESTEROL,TOTAL 139 100 - 199 mg/dL 04/30/2022 6:25 PM CDT [facility] TRIGLYCERIDES 141 <150 mg/dL 04/30/2022 6:25 PM CDT [facility] HDL CHOLESTEROL 42 >40 mg/dL 6:25 PM CDT [facility] NON-HDL CHOLESTEROL 97 <145 mg/dl 04/30/2022 6:25 PM CDT [facility] CHOL/HDL RATIO 3.31 <4.50 04/30/2022 6:25 PM CDT [facility] LDL CHOLESTEROL 69 <=130 mg/dL 04/30/2022 6:25 PM CDT [facility] VLDL CHOLESTEROL 28 <=30 mg/dL 04/30/2022 6:25 PM CDT [facility] PROVIDER ORDERED STATUS RANDOM 04/30/2022 6:25 PM CDT [facility] Blood BLOOD SPECIMEN / Unknown Venipuncture / Unknown 04/28/2022 1:44 PM CDT 04/28/2022 1:45 PM CDT Shania Montiel MD CHEMISTRY Performing Organization Address [facility] Co de Phone Number [facility] [address] [place] [address], * FECAL DNA (AKA COLOGUARD) (11/10/2021 1:00 PM CDT) Shania Montiel MD COMMUNICATION ORD * ANTI HCV [[id number]] (02/16/2018 4:20 PM CDT) Pathologist [facility] HEPATITIS C ANTIBODY Non-React alex Non-React alex 02/17/2018 2:48 PM CDT [facility] Comment:Antibodies to HCV no t detected; does not exclude the possibility of exposure to HCV. Blood BLOOD SPECIMEN / Unknown Butterfly / Unknown 02/16/2018 4:20 PM CDT 02/16/2018 4:20 PM CDT Coleman Plata MD SEND OUTS Performing Organization Address [facility] Co de Phone Number [facility] [address] [place] [address], * HIV 1&2 TODAY (07/21/2015 9:40 AM PRODUCTION MACHINE COMPUTER OPERATOR) HIV-1/HIV-2 ANTIBODY Non-Reacti ve Non-Reacti ve 07/21/2015 10:31 AM PRODUCTION MACHINE COMPUTER OPERATOR [facility] Blood specimen (specimen) BLOOD SPECIMEN / Unknown Venipuncture / Unknown 07/21/2015 9:40 AM PRODUCTION MACHINE COMPUTER OPERATOR 07/21/2015 9:47 AM PRODUCTION MACHINE COMPUTER OPERATOR Narrative [facility] - 07/21/2015 10:31 AM PRODUCTION MACHINE COMPUTER OPERATOR HIV-1 p24 and HIV-1/HIV-2 Ab not detected Kait Morales DO SEND OUTS [facility] [address] [place] [address], * HEALTHCARE ANALYST THIN PREP PAP SCREEN IMAGED (08/17/2012 4:02 PM PRODUCTION MACHINE COMPUTER OPERATOR) CYTOLOGY CYTOPATHOLOGY REPORT [facility] Status: Final Status ?[id number] CLINICAL INFORMATION Last Date of LMP ? :07/03/2012 Last Pap Date ?:02/01/2011 Last Pap Result ?:NIL ABN [place]/Bx Past 5 YRS :None Hormone Usage ?:BCP/OCP/Patch/R ing Menstrual Status ? :Regular Periods [place]/Bx done today ? :No Additional Information :None [...] COLLECTED:08/17/12 ? ACCESSIONED: ??08/18/12 ?? SIGNED: ??08/21/12 [facility] PAP [place] CODE NIL [facility] Tissue specimen (specimen) (Cervical/Vagina l) 08/17/2012 4:02 PM PRODUCTION MACHINE COMPUTER OPERATOR 08/17/2012 4:00 PM PRODUCTION MACHINE COMPUTER OPERATOR Coleman Plata MD PATHOLOGY/CYTOLOGY [facility] INTERNAL ZIP [address] [place] [phone] from Last 3 Months or Most Recently [...] 8:49 PM 03/19/2011 7:03 PM Care Teams Senior Controls Engineer Relationship Specialty Start Date End Date Barbara Valentin DO [address] [place] [address] PCP - General Family Practice 11/15/22 Julio Ibrahim MD [address] [place] [address] Surgery - Orthopedics 02/01/11 Chuy Doss MD [address] [place] [address] Surgery - Vascular 02/01/11 Markel Strong MD [address] [place] [address] Provider Family Practice 08/08/20 Nikolai Ibarra MD [address] [place] [address] Endocrinology 09/07/22 Suad Ng/ [employer] CM Client Support Representative 07/14/17 [facility] Home Health Nurse 07/01/17 [facility] Home Health Aide 07/14/17 [facility]/ Ally Morillom [address] [place] [address] Client Support Representative 07/07/17
--- OUTSIDE RECORDS SUMMARY | 2023-12-09 12:52 | XMS_ITS | Clinical Summary ---
Author Organization [facility] [place] [place] Address [address] [facility] [place] [address] Phone Care Team Providers Care Dental Ceramist Assistant Name Role Phone Sir Valentinesteban Gomez DO Primary Care Provider Kevin zepeda Allergies Active Allergy Reactions Criticality Noted Date Comments Aspirin 10/28/2009 Not able to take asa do to gastric bypass surgery Nsaids Other (see comments) 11/11/2008 Pt had gastric bypass surgery, should not take oral NSAIDS. Penicillins Anaphylaxis,Rash High 10/18/2017 Rash as a child Sulfa Antibiotics Anaphylaxis High 11/19/2020 Medications Medication Sig Dispensed Refills Start Date End Date Status acetaminophen (TYLENOL 8 HOUR) 650 MG 8 hr tablet Take 650 mg by mouth every 8 (eight) hours if needed Active ammonium lactate (LAC-HYDRIN) 12 % lotion Apply topically 02/02/2023 Active atorvastatin (LIPITOR) 20 MG tablet Take 20 mg by mouth 1 (one) time each day Active Buprenorphine 5 MCG/HR patch weekly APPLY 1 PATCH ON DRY, CLEAN, HAIRLESS SKIN ONCE WEEKLY. Active cetirizine (ZyrTEC) 5 MG tablet Take 5 mg by mouth 1 (one) time each day Active cholecalciferol (VITAMIN D-3) 50 MCG (1999 UT) capsule Take 2,000 Units by mouth 1 (one) time each day 08/30/2023 Active DULoxetine (CYMBALTA) [address] capsule TAKE ONE CAPSULE BY MOUTH ONCE DAILY 08/16/2023 Active FLUoxetine (PROzac) 10 MG capsule TAKE 1 CAPSULE (10 MG) BY MOUTH ONCE DAILY. Active Glucagon (Baqsimi One Pack) 3 MG/DOSE powder Inhale 1 [place] into affected nostril(s) each time if needed for Severe Hypoglycemia. Roll on side and call 911 after administration. 12/24/2021 Active Lantus SoloStar 100 UNIT/ML injection Inject 13 units subcutaneous before bedtime. Product desired: LANTUS SOLOSTAR 05/25/2023 Active HumaLOG 100 UNIT/ML solution Inject 6-8u SubQ TID AC, 4u SubQ BID with snack depending on carb intake 09/06/2023 Active ipratropium-alb uterol (DUO-NEB) 0.5-2.5 mg/3 mL nebulizer solution Take 3 mL by nebulization every 6 (six) hours if needed for wheezing 09/21/2023 Active levothyroxine (SYNTHROID, LEVOTHROID) 125 MCG tablet TAKE 1 TABLET (125 MCG) BY MOUTH ONCE DAILY. Active metoprolol succinate XL (TOPROL XL) 25 MG 24 hr tablet TAKE ONE TABLET (25 MG) BY MOUTH ONCE DAILY. Active Naloxone HCl 4 MG/0.1ML liquid INHALE 1 SPRAY INTO AFFECTED NOSTRIL(S) EACH TIME IF NEEDED FOR PATIENT DIFF TO AROUSE OR RESP RATE <8/MIN. ADD. DOSES MAY BE GIVEN EVERY 2-3 MIN. 01/28/2023 Active omeprazole (PriLOSEC) [address] capsule TAKE 1 CAPSULE (20 MG) BY MOUTH ONCE DAILY BEFORE A MEAL. 09/06/2023 Active oxyCODONE (ROXICODONE) 5 MG immediate release tablet TAKE 1 TABLET TWICE A DAY NEEDED FOR OA PAIN/DIABETIC PAIN. MAX DOSE IS 2 TABS PER DAY. USE DATES 10/24/23-11/22/23 Active polyethylene glycol (GLYCOLAX) 17 GM/SCOOP powder MIX 17GMS IN 8OZ LIQUID AND DRINK ONCE DAILY NEEDED FOR CONSTIPATION 09/14/2023 Active pregabalin (LYRICA) 50 MG capsule TAKE ONE CAPSULE BY MOUTH EVERY EVENING WITH 1-100MG CAPSULE TO TOTAL 150MG 10/12/2023 Active pregabalin (LYRICA) 100 MG capsule TAKE TWO CAPSULES (200MG) BY MOUTH EVERY MORNING AND ONE CAPSULE IN THE EVENING WITH THE (50MG) TO TOTAL 150MG Active senna-docusate (PERICOLACE) 8.6-50 MG per tablet TAKE TWO TABLETS BY MOUTH TWO TIMES DAILY NEEDED FOR CONSTIPATION. 04/20/2023 Active torsemide (DEMADEX) 20 MG tablet TAKE TWO TABLETS BY MOUTH (40MG) ONCE DAILY Active cyanocobalamin (VITAMIN B-12) 1000 MCG tablet Take 1,000 mcg by mouth 1 (one) time each day 10/11/2023 Active Ketoconazole-Hy drocortisone 2 & 1 % kit Apply topically 08/23/2020 Active carboxymethylce llulose 1 % ophthalmic solution Administer 1 drop into both eyes 4 (four) times a day if needed (dry eyes) Active amLODIPine (NORVASC) 2.5 MG tablet Take 2.5 mg by mouth 1 (one) time each day 4 Discontinued(Med List Maintenance) Diclofenac Sodium 1 % gel APPLY 1 GRAM TOPICALLY TO AFFECTED AREA(S) FOUR TIMES A DAY 08/18/2023 4 Discontinued fluticasone (FLONASE) 50 MCG/ACT nasal spray Administer 1 spray into each nostril 1 (one) time each day 01/11/2022 4 Discontinued(Med List Maintenance) hydrocortisone 2.5 % cream Apply topically 3 (three) times a day if needed for irritation or rash 4 Discontinued(Med List Maintenance) Active Problems Problem Noted Date Diagnosed Date Urinary tract infectious disease 11/10/2023 Type 1 diabetes mellitus wit h diabetic chronic kidney disease 11/09/2023 Overview: Patient has known DMR Last Assessment & Plan: Most recent A1c was 7.7 on 09/21/2023. Defer further to PCP. Chronic diastolic congestive heart failure 11/08 Overview: Echocardiogram from October 2022 with EF of 60-65%. Last Assessment & Plan: Appears well-managed overall. No evidence of decompensated heart failure on examination today. Hypertensive heart and chron ic kidney disease without heart failure, with stage 1 through stage 4 chronic kidney disease, or unspecified chronic kidney disease 11/09/2023 Secondary hyperparathyroidism of renal origin Last Assessment & Plan: PTH values at 221 in August 2021 and 153 in May 2023. No recent vitamin D totals. Nonetheless calcium level is fine. Phosphorus assessment at the next visit as well. Obstructive sleep apnea 11/09/2023 Chronic kidney disease stage 4 07/02/2021 Overview: Baseline creatinine values in the high ones-2 range since 2016. Albuminuria first detected in October 2006. Urine albumin creatinine ratio 593 mg/g in 2011. Most recent assay at 104 mg/g in May 2023. Renal ultrasound December 2007: Right kidney 9.7 cm, left kidney 10.3 cm. Etiology of CKD related to small vessel disease, diabetic glomerulosclerosis, extensive NSAID exposure, and hypertensive nephrosclerosis. Last Assessment & Plan: Stable GFR. Patient was asked to avoid further exposure to diclofenac gel since it is physiologic effects are unchanged and the same as any other orally ingested NSAID. Will tentatively plan to see her again in 6 months time. Otherwise she appears to be doing well overall. Anemia of other chronic disease 09/09/2006 Last Assessment & Plan: Baseline hemoglobin study between 11.5-12. Plan to reassess hemoglobin at the next visit. Most recent value was 11.5 on 02/28/2023. Essential hypertension 09/09/2006 Encounters Date Type Department Care Team Description 11/10/2023 3:30 PM EDT Office Visit [facility] [place] [address] [address] Gabriel Hicks MD Chronic kidney disease, stage 4 (severe) (HCC) (Primary Dx); 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); Chronic diastolic congestive heart failure (HCC); Secondary hyperparathyroidism of renal origin (HCC); Anemia in chronic kidney disease 11/10/2023 Documentation Only [facility] [place] [id number] Ericka Hurst 09/23/2023 Office Communication [facility] [place] [address] [place] [address] Barbara Valentin DO 09/22/2023 Documentation Only [facility] [place] [address] [place] [id number] No, Pcp from Last 3 Months Immunizations Name Administration Dates Next Due Influenza, Quadrivalent, Pre servative Free 04/28/2022,04/28/2021,05/18/2019,2017 Pfizer SARS-CoV-2 Bivalent 3 0 mcg/0.3 mL 04/28/2022 Family History Medical History Relation Comments Diabetes Brother Heart disease Brother Hypertension Brother Kidney disease Brother Sleep apnea Brother Stroke Brother Cancer Father Hypertension Father Sleep apnea Father Cancer Father's Sister Diabetes Maternal Grandfather Cancer Maternal Grandmother Diabetes Mother Kidney disease Mother Sleep apnea Mother Stroke Mother Gout Mother's Brother Heart disease Mother's Brother Stroke Mother's Sister Dementia Paternal Grandfather Hypertension Paternal Grandmother Diabetes Sister Relation Status Comments Brother Father Father's Brother Father's Sister Maternal Grandfather Maternal Grandmother Mother Mother's Brother Mother's Sister Paternal Grandfather Paternal Grandmother Sister Alive Social History Tobacco Use Types Packs/Day Years Used Date Smoking Tobacco: Never Smokeless Tobacco: Never Tobacco Cessation:Counseling Given: Not Answered Alcohol Use Standard Drinks/Week Comments Not Currently 0 (1 standard drink = 0.6 oz pur e alcohol) Sex and Gender Information Value Date Recorded Sex Assigned at Not on file Gender Identity Not on file Sexual Orientation Not on file Last Filed Vital Signs Vital Sign Reading [...] Mass Index 41.6 11/10/2023 3:52 PM CDT Plan of Treatment Health Maintenance Due Date Last Done Comments Breast Cancer Screening 1961 Pneumococcal Vaccine: Pediatrics (0 to 5 Years) and At-Risk Patients (6 to 64 Years) (1 of 2 - PCV) 12/19/1967 Colorectal Cancer Screening: Annual FOBT 2010 Colorectal Cancer Screening: Colonoscopy 2010 Colorectal Cancer Screening: Sigmoidoscopy 2010 Diabetes: Ophthalmology Exam 09/22/2023 Diabetes: Pedal Pulse Checked 09/22/2023 Diabetes: Sensory Foot Exam 09/22/2023 Diabetes: Visual Foot Exam 09/22/2023 Diabetes: Hemoglobin A1C 12/22/2023 09/21/2023 Influenza Vaccine (Season Ended) 2024 04/28/2022, 04/28/2021, 05/18/2019, Additional history exists Hepatitis B Vaccine Aged Out No longe r eligible based on patient's age to complete this topic Procedures Procedure Name Priority Date/Time Associated Diagnosis Comments BASIC METABOLIC PANEL (BMP) (EXTERNAL LAB ENTRY) Routine 09/21/2023 from Last 3 Months Results * (ABNORMAL) Basic Metabolic Panel (BMP) (09/21/2023) Sodium 134(L) mEq/L [facility] Potassium 4.9 mEq/L [facility] Chloride 95(L) [facility] Carbon Dioxide 28 mmol/L [facility] Calcium 9.2 mg/dL [facility] BUN 46(H) mg/dL [facility] Creatinine 1.95(H) mg/dL [facility] Glucose 490(H) mg/dL [facility] eGFR 29(L) [facility] Anion Gap 11 [facility] 09/21/2023 Historical Provider LAB BLOOD ORDERAB LES [facility] from Last 3 Months Care Teams Dental Ceramist Assistant Relationship Specialty Start Date End Date Barbara Valentin DO [address] [place] [address] PCP - General Family Medicine 09/22/23
--- OUTSIDE RECORDS SUMMARY | 2023-12-09 12:52 | XMS_ITS | Encounter Summary ---
Author Organization [facility] [place] [place] Address [address] [place] [address] Care Team Providers Care Shape Brick Molder Name Role Phone Barbara Valentin Primary Care Provider Kevin zepeda Encounter Details Date Type Department Care Team (Late st Contact Info) Description 11/10/2023 Documentation Only [facility] [place] [address] Dave Hurst [address] [place] [address] Social History Tobacco Use Types Packs/Day Years [...] on file documented as of this encounter Procedures Procedure Name Priority Date/Time Associated Diagnosis Comments BASIC METABOLIC PANEL (BMP) (EXTERNAL LAB ENTRY) Routine 09/21/2023 ALBUMIN/CREATININE, RANDOM URINE (EXTERNAL RESULT ENTRY) Routine 05/19/2023 RENAL FUNCTION PANEL Routine 05/19/2023 CBC Routine 02/28/2023 COMPREHENSIVE METABOLIC PANEL (CMP) (EXTERNAL LAB ENTRY) Routine 11/23/2022 documented in this encounter Results * (ABNORMAL) Basic Metabolic Panel (BMP) (09/21/2023) Sodium 134(L) mEq/L [facility] Potassium 4.9 mEq/L [facility] Chloride 95(L) [facility] Carbon Dioxide 28 mmol/L [facility] Calcium 9.2 mg/dL [facility] BUN 46(H) mg/dL [facility] Creatinine 1.95(H) mg/dL [facility] Glucose 490(H) mg/dL [facility] eGFR 29(L) [facility] Anion Gap 11 [facility] 09/21/2023 Historical Provider MD LAB BLOOD ORDERAB LES Performing Organization Address [facility] Co de Phone Number [facility] * (ABNORMAL) Renal Function Panel (05/19/2023) Glucose 380(H) mg/dL [facility] BUN 44(H) mg/dL [facility] Creatinine 2.16(H) mg/dL [facility] BUN/Creatinine Ratio 20 [facility] Sodium 139 mEq/L [facility] Potassium 5.8(H) mEq/L [facility] Chloride 96(L) [facility] Carbon Dioxide 35(H) mmol/L [facility] Calcium 9.2 mg/dL [facility] Phosphorus, Serum 4.2 mg/dL [facility] Albumin (Blood) 3.6(L) g/dL [facility] eGFR 25(L) [facility] Blood (Blood, Venous) 05/19/2023 Historical Provider MD LAB BLOOD ORDERAB LES Performing Organization Address [facility]/ZIP Co de Phone Number [facility] * (ABNORMAL) Albumin/Creatinine in Urine (05/19/2023) Albumin, Urine 55.6 mg/L [facility] Creatinine, Urine Random 0.53 g/L [facility] Alb/Creat Ratio, Ur 104.9(H) mg/g Creat [facility] Urine (Urine) 05/19/2023 Historical Provider MD LAB URINE ORDERAB LES [facility] * (ABNORMAL) CBC (02/28/2023) WBC 4.6 K/uL [facility] Red Blood Cell Count 3.88(L) [facility] Hemoglobin 11.5(L) g/dL [facility] Hematocrit 36.6 % [facility] MCV 94 [facility] MCH 29.6 [facility] MCHC 31.4(L) [facility] RDW 13.7 [facility] Platelet Count 233 [facility] MPV 10.7 [facility] Blood (Blood, Venous) 02/28/2023 Historical Provider MD LAB BLOOD ORDERAB LES Performing Organization Address [facility] Co de Phone Number [facility] * (ABNORMAL) Comprehensive Metabolic Panel (CMP) (11/23/2022) Glucose 339(H) mg/dL [facility] BUN 34(H) mg/dL [facility] Creatinine 1.91(H) mg/dL [facility] Sodium 141 mEq/L [facility] Potassium 5.7(H) mEq/L [facility] Chloride 98 [facility] Carbon Dioxide 33(H) mmol/L [facility] Calcium 9.3 mg/dL [facility] Albumin (Blood) 3.5(L) g/dL [facility] AST (SGOT) 33 U/L [facility] ALT (SGPT) 24 U/L [facility] Alkaline Phosphatase 122(H) U/L [facility] Total Bilirubin 0.2 MG/DL [facility] eGFR 30(L) [facility] Total Protein, Serum 7.3 [facility] Anion Gap 10 [facility] Blood 11/23/2022 Historical Provider MD LAB BLOOD ORDERAB LES Performing Organization Address City/[facility]/ZIP Co de Phone Number [facility] documented in this encounter Visit Diagnoses Not on filedocumented in this encounter Care Teams Shape Brick Molder Relationship Specialty Start Date End Date Barbara Valentin DO [address] [place] [address] PCP - General Family Medicine 09/22/23 documented as of this encounter
== END 2023-12-09 12:48 | disposition home or self-care (01) ==
LOC: WOUND 12:50
PROVIDERS: PCP Family Medicine; Visit Provider Nurse Practitioner Family
DX: E11.621 Type 2 diabetes mellitus with foot ulcer (principal); L97.422 Non-pressure chronic ulcer of left heel and midfoot with fat layer exposed; Z79.4 Long term (current) use of insulin
CPT/HCPCS: 11042; G0463

== ENCOUNTER 2023-12-15 14:49 | Outpatient (CLI) | payer OTHER, SELFPAY ==
--- OUTSIDE RECORDS SUMMARY | 2023-12-15 15:01 | XMS_ITS | Encounter Summary ---
Author Organization [facility] [place] Address [address] [facility] [place] [address] Care Team Providers Care Cert Occupational Therapy Asst Name Role Phone Barbara Valentin DO Primary Care Provider Kevin zepeda Encounter Details Date Type Department Care Team (Late st Contact Info) Description 09/22/2023 Documentation Only [facility] [place] [address] [facility] [address] [place] [address] No, Pcp Social History Tobacco [...] on filedocumented in this encounter Care Teams Cert Occupational Therapy Asst Relationship Specialty Start Date End Date Barbara Valentin DO [address] [place] [address] PCP - General Family Medicine 09/22/23 documented as of this encounter
--- OUTSIDE RECORDS SUMMARY | 2023-12-15 15:01 | XMS_ITS | Encounter Summary ---
Author Organization [facility] [place] Address [address] [place] [address] Care Team Providers Care Senior Interactive Producer Name Role Phone Barbara Valentin Primary Care Provider Kevin zepeda Encounter Details Date Type Department Care Team (Late st Contact Info) Description 11/10/2023 Documentation Only [facility] [place] [address] Dave Hurst [address] [place] [address] Social History Tobacco Use Types [...] LAB BLOOD ORDERAB LES Performing Organization Address [facility] Co de Phone Number [facility] * (ABNORMAL) [...] LAB BLOOD ORDERAB LES Performing Organization Address [facility]/ZIP Co de Phone Number [facility] [...] LAB BLOOD ORDERAB LES Performing Organization Address [facility] Co de Phone Number [facility] * (ABNORMAL) [...] LAB BLOOD ORDERAB LES Performing Organization Address City/[facility]/ZIP Co de Phone Number [facility] documented in this encounter Visit Diagnoses Not on filedocumented in this encounter Care Teams Senior Interactive Producer Relationship Specialty Start Date End Date Barbara Valentin DO [address] [place] [address] PCP - General Family Medicine 09/22/23 documented as of this encounter
--- OUTSIDE RECORDS SUMMARY | 2023-12-15 15:01 | XMS_ITS | Clinical Summary ---
Author Organization [facility] Address [address] [facility] [place] [address] Phone Care Team Providers Care Radio Engineer Name Role Phone Sir Valentinesteban Gomez DO Primary Care Provider Keivn zepeda Allergies Active Allergy Reactions Criticality Noted [...] One Pack) 3 MG/DOSE powder Inhale 1 [place] into affected nostril(s) each time if needed for Severe Hypoglycemia. Roll on side and call 911 after administration. 12/24/2021 Active Lantus SoloStar 100 UNIT/ML injection Inject 13 units subcutaneous before bedtime. Product desired: LANTUS SOLOSTAR 05/25/2023 Active HumaLOG 100 UNIT/ML solution Inject 6-8u SubQ TID AC, 4u SubQ BID with snack depending on carb intake 09/06/2023 Active ipratropium-albuter ol (DUO-NEB) 0.5-2.5 mg/3 mL nebulizer solution Take [...] 1 (one) time each day 10/11/2023 Active Ketoconazole-Hydroc ortisone 2 & 1 % kit Apply topically 08/23/2020 Active carboxymethylcellul ose 1 % ophthalmic solution Administer 1 drop into both eyes 4 (four) times a day if needed (dry eyes) Active Active Problems Problem Noted Date Diagnosed Date [...] [facility] [address] [place] [address] Gabriel Hicks MD Chronic kidney disease, stage 4 (severe) (HCC) (Primary Dx); 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); Chronic diastolic congestive heart failure (HCC); Secondary hyperparathyroidism of renal origin (HCC); Anemia in chronic kidney disease 11/10/2023 Documentation Only [facility] [address] [place] [address] Ericka Hurst 09/23/2023 Office Communication [facility] [address] [facility] [address] [place] [address] Barbraa Valentin DO 09/22/2023 Documentation Only [facility] [address] [facility] [address] [place] [phone] No, Pcp from Last 3 Months Immunizations [...] [facility]INA from Last 3 Months Care Teams Radio Engineer Relationship Specialty Start Date End Date Barbara Valentin [place] [address] PCP - General Family Medicine 09/22/23
--- OUTSIDE RECORDS SUMMARY | 2023-12-15 15:01 | XMS_ITS | Clinical Summary ---
Author Organization [facility] Address [place], [place] [address] Care Team Providers Care City Editor Name Role Phone Julio Ibrahim MD Unavailable Chuy Doss MD Unavailable [phone] RufusteMarkel meraz MD Unavailable [phone] Nikolai Ibarra MD Unavailable [phone] Barbara Valentin DO Primary Care Provider [...] Each 03/02/20 21 Active blood sugar diagnostic (Exposure Machine Operator Express Test Strip) stripIndications:U ncontrolled type 1 [...] mellitus at risk of hypoglycemia Inhale 1 [place] into affected nostril(s) each time if needed [...] nasal solution (FLONASE)Indicatio ns:Nasal congestion Inhale 1 [place] into affected nostril(s) once daily. Inhale 1 [place] in the nostril(s) once daily. 16 g [...] use: Daily 1 Each 09/22/19 23 Active naloxone (NARCAN) 4 mg/actuation nasal [...] continuous glucose monitor READER (FreeStyle Elli 2 Cornell)Indications :Type 1 diabetes mellitus with other specified complication (HC) To be used to read blood sugars per sequencing machine operator's directions. 1 Each 05/19/20 Active blood-glucose meterIndications:T [...] be used to read blood sugars per sequencing machine operator's directions. 6 Each 3 09/06/19 24 Active [...] needle, diabetic (NovoFine Plus) 32 gauge x 6 ndleIndications:Di abetes mellitus type 1 with complications (HC) Inject subcutaneous. TO USE FOR INSULIN ADMINISTRATION FOUR TIMES DAILY 400 Each 3 12/08/19 24 Active Diaper,Brief, Adult,Disposable (Per-Fit Underwear)Indicati ons:Urinary incontinence, unspecified type ADULT PULL UPS XL THREE TIMES A DAY DIRECTED 96 Each 11 12/10/19 24 Active Insulin [place], Disposable, (UltiCare Pen Needle) 32 gauge x Indications:D iabetes mellitus type 1 with complications (HC) TO USE FOR INSULIN ADMINISTRATION FOUR TIMES DAILY 400 Each 3 06/15/20 22 024 Discontinued Per-Fit UnderwearIndicatio ns:Urinary incontinence, unspecified type ADULT PULL UPS XL THREE TIMES A DAY DIRECTED 96 Each 11 12/03/19 23 024 Discontinued cholecalciferol (VITAMIN D3) 2,000 unit [...] substance agreement signed - 10/07/23 10/07/2023 Overview: [facility] Noem[facility] Dennis .................... 10/07/2023 4:39 PM [...] hypoxia which led to extended stay in parts counterman care 07/2015- 05/2017 Hospitalized with ketoacidosis 06/2017 [...] post total right knee replacement 01/02/2015 06/10/2017 parts counterman (current) use of anticoagulants 11/27/2013 12/28/2013 Anticoagulation [...] 09/09/2006 06/10/2017 Controlled type 1 diabetes m makenna with stage 1 chronic kidney disease 05/25/2002 7 Encounters Date Type Department Care Team Description 12/15/2023 Telephone [facility] [address] [place] [address] Saúlqra Barbara Patricia, DO Lab 12/08/2023 Refill [facility] [address] [place] [address] Shaqra, Barbara Patricia, DO Refill Request (Ulticare Pen Needle, Per-fit Underwear) 12/07/2023 Refill [facility] [address] [place] [address] Shaqra, Barbara Patricia, DO Refill Request (Ulticare Pen Needle) 11/29/2023 Telephone [facility] [address] [place] [address] Shaqra Barbara Patricia, DO Referral 11/29/2023 Refill [facility] [address] [place] [address] Shaqra, Barbara Patricia, DO Refill Request (Cholecalciferol) 11/18/2023 Refill [facility] [address] [place] [address] Toshia Hooks M, LATIN AMERICAN STUDIES DIRECTOR Refill Request (oxycodone 5 mg at [facility]) 11/17/2023 Telephone [facility] [address] [facility] [place] [address] Shaqra Barbara Patricia, DO Questions (Vish rod R.N. nurse outreach case [facility] has some questions for pcp) 11/15/2023 Refill [facility] [address] [place] [address] Shaqra, Barbara Patricia, DO Refill Request (Levothyroxine, Fluoxetine) 11/11/2023 Telephone [facility] [address] [place] [address] Shaqra Barbara Patricia, DO questions and concerns (vish jennings R.N. called in with questions and concerns for PCP) 10/26/2023 Telephone [facility] [address] [facility] [place] [address] Saúlqra Barbara Patricia, DO Medication Management 10/18/2023 Refill [facility] [address] [place] [address] Toshia Hooks, LATIN AMERICAN STUDIES DIRECTOR Refill Request 10/11/2023 Refill [facility] [address] [place] [address] Saúlqra Barbara Patricia, DO Refill Request (Cyanocobalamin, Pregabalin) 10/07/2023 4:00 PM CDT Office Visit [facility] [address] [place] [address] Toshia Hooks, LATIN AMERICAN STUDIES DIRECTOR Follow Up; Foot Numbness (It is controlled with her care as it is. ); Depression (She feels like things are dark & needs to Put lights on. Just had Prozac initiated. Too soon to notice any difference. She asked her son Nikolai to let her know if he notices any difference. ); Lab 10/07/2023 Travel 10/06/2023 Telephone [facility] [address] [place] [address] Saúlqra Barbara Patricia, DO Follow Up 09/27/2023 Refill [facility] [address] [place] [address] Harjit Green, GISEL Refill Request (Buprenorphine) 09/22/2023 Telephone [facility] [address] [facility] [address] Barbara Valentin DO Results 09/21/2023 3:25 PM CDT Office Visit [facility] [address] [facility] [place] [address] Barbara Valentin, Diabetes; Medication Management 09/21/2023 Travel 09/20/2023 Refill [facility] [address] [place] [address] Harjit Green, GISEL Refill Request from Last 3 Months Immunizations Name Administration Dates Next Due AMB Influenza, IIV3 (Age >=3 years)(Flu Clinic Only) 05/17/2013,05/06/2010 COVID-19 vaccine (Alorum-Bio NTech 30mcg/0.3mL) 12YO+ BIVALENT PF, MDV 04/28/2022 COVID-19 vaccine (Alorum-Bio NTech 30mcg/0.3mL) PF, MDV 06/23/2021 Hepatitis B [...] Outcome GA Total Labor Labor/2nd/3rd Weight Sex Type Anes PTL Patricia A1 A5 Name Clin Term Last Filed Vital Signs Vital Sign Reading Time Taken Comments Blood Pressure 120/74 09/21/2023 3:41 PM CDT Pulse 81 10/07/2023 4:16 PM CDT Temperature 36.8 ??C (98.2 ??F) 08/24/2022 2:38 PM CS T Respiratory Rate 14 08/24/2022 2:38 PM SIGNAL OPERATOR TECHNICAL Oxygen Saturation 93% 10/07/2023 4:16 PM CDT Inhaled Oxygen Concentration - - Weight 96.7 kg (213 lb 3.2 oz) 02/28/2023 3:16 P M CDT Height 152.4 cm (5') 01/02/2019 8:57 PM CDT Body Mass Index 41.64 01/02/2019 8:57 PM CDT Plan of Treatment Upcoming Encounters Date Type Department Care Team (Late st Contact Info) Description 12/23/2023 2:45 PM CDT Orders Only [facility] [address] [place] [address] Lab, [place] 12/23/2023 3:00 PM CDT Office Visit [facility] [address] [facility] [place] [address] Barbara Valentin Patricia, DO [address] [place] [address] 01/06/2024 4:00 PM CDT Office Visit [facility] [address] [place] [address] Toshia Hooks, LATIN AMERICAN STUDIES DIRECTOR [address] [place], [place] [id number] Health Maintenance Due Date Last Done Comments [...] 03/18/2020, Additional history exists Fecal testing sDNA-FIT ([place] guard) for age 45-75 11/10/2024 11/10/2021 Pneumococcal series for age 6-64 (3 of 3 - PPSV23 or PCV20) 2026 08/17/2016, 08/14/2014, 07/04/2005, Additional history exists Lipids for age 45-75 04/28/2027 04/28/2022, 08/17/2019, 08/31/2018, Additional history exists Tdap Completed 08/25/2010 HIV for age 15-65 Completed 07/21/2015 Hepatitis C screening for ag e 18-79 Completed 02/16/2018 Medical Devices Implanted Type Area Glycerin Operator Device Identifier Shelf Expiration Date Model / Serial / Lot [id number] 2x12mm [[id number]] Implanted:Qty: 1 on 08/08/2008 at [facility] Explanted:at [facility] (Quantity not on file) [employer] [id number]# / [id number] / Stem Compnt Primary 8mm Mini - [id number] Implanted:Qty: 1 on 03/17/2011 at [facility] Right: Shoulder BIOMET [id number]# / / [id number] Head Hum Bio-Mod [id number] - [id number] Implanted:Qty: 1 on 03/17/2011 at [facility] Right: Shoulder BIOMET [id number]# / / [id number] Base Glenoid Hybrid 4mm Sm - [id number] Implanted:Qty: 1 on 03/17/2011 at [facility] Right: Shoulder BIOMET [id number]# / / [id number] Cmnt 1/2 Dosehowmedica - [id number] Implanted:Qty: 1 on 03/17/2011 at [facility] Right: Shoulder [employer] 6188-1-01 0# / / [id number] Post Glenoid Hybrid Regenerex - [id number] Implanted:Qty: 1 on 03/17/2011 at [facility] Right: Shoulder BIOMET [id number] # / / [id number] Head Humeral 44x15 Co Cr Biomodular - [id number] Implanted:Qty: 1 on 07/12/2012 at [facility] Left: Shoulder BIOMET [id number]# / / [id number] Shoulder Stem Implanted:Qty: 1 on 07/12/2012 at [facility] Left: Shoulder [id number] / / [id number] Description:SHOULDER STEM Cmnt Bone 1/2 Dosehowmedica - [id number] Implanted:Qty: 1 on 07/12/2012 at [facility] Left: Shoulder [employer] 6188-1-01 0# / / [id number] Post Glenoid Hybrid Regenerex - [id number] Implanted:Qty: 1 on 07/12/2012 at [facility] Left: Shoulder BIOMET [id number] # / / [id number] Base Glenoid Hybrid 4mm Sm - [id number] Implanted:Qty: 1 on 07/12/2012 at [facility] Left: Shoulder BIOMET [id number]# / / [id number] Procedures Procedure Name Priority Date/Time Associated Diagnosis [...] HIV 1/2 Add On 07/21/2015 9:40 AM SIGNAL OPERATOR TECHNICAL REFLEXOLOGIST THIN PREP PAP SCREEN IMAGED Routine 08/17/2012 4:02 PM SIGNAL OPERATOR TECHNICAL Screening for malignant neoplasm of the cervix from Last 3 Months or Most Recently Relevant to Health Maintenance Results * (ABNORMAL) COMPLIANCE DRUG ANALYSIS (10/07/2023 4:00 PM T) 6-MONOACETYL MORPHINE NEG NEG ng/mL 10/12/2023 2:04 PM [facility] AMPHETAMINE URINE NEG <=500 ng/mL 10/12/2023 2:04 PM [facility] BARBITURATE URINE NEG <=200 ng/mL 10/12/2023 2:04 PM [facility] BENZODIAZEPINE URINE NEG <=100 ng/mL 10/12/2023 2:04 PM [facility] BUPRENORPHRINE URINE NEG <=5 ng/mL 10/02 2:04 PM [facility] COCAINE METAB URINE NEG <=300 ng/mL 10/12/2023 2:04 PM [facility] ETHYLGLUCURONIDE URINE NEG <=250 ng/mL 10/12/2023 2:04 PM [facility] FENTANYL URINE NEG <=4 ng/mL 10/12/2023 2:04 PM [facility] METHADONE URINE NEG <=300 ng/mL 10/12/2023 2:04 PM [facility] OPIATES URINE NEG <=300 ng/mL 10/12/2023 2:04 PM [facility] OXYCODONE URINE POS(A) <=100 ng/mL 10/12/2023 2:04 PM [facility] PROPOXYPHENE URINE NEG <=300 ng/mL 10/12/2023 2:04 PM [facility] THC 50 URINE NEG <=50 ng/mL 10/12/2023 2:04 PM [facility] TRAMADOL NEG <=200 ng/mL 10/12/2023 2:04 PM [facility] PH URINE 5.2 5.0 - 7.0 10/12/2023 2:04 PM [facility] CREAT UR 28 >=20 mg/dL 10/12/2023 2:04 PM [facility] MASS SPECTROMETRY URINE See Below 10/12/2023 2:04 PM CDT [facility] Comment:Acetaminophen, Oxyco done and Oxycodone metabolites present. Urine URINE SPECIMEN / Unknown Non-Blood / Unknown 10/07/2023 4:00 PM CDT 10/08/2023 9:15 AM CDT Narrative [facility] - 10/12/2023 2:04 PM CDT Current Outpatient [...] 4 times per day. blood sugar diagnostic (Exposure Machine Operator Express Test Strip) strip, Test blood sugar [...] MOUTH ONCE DAILY continuous glucose monitor READER (FreeStyle Elli 2 Cornell), To be used to read blood sugars per sequencing machine operator's directions. continuous glucose monitor SENSOR KIT (FreeStyle Elli 2 Sensor), As directed. To be used to read blood sugars per sequencing machine operator's directions. CPAP, CPAP machine for home use [...] per actuation) nasal solution (FLONASE), Inhale 1 [place] into affected nostril(s) once daily. Inhale 1 [place] in the nostril(s) once daily. glucagon (Baqsimi) 3 mg/actuation nasal spray, Inhale 1 [place] into affected nostril(s) each time if needed [...] before meals. Product desired: HUMALOG KWIKPEN Insulin [place], Disposable, (UltiCare Pen Needle) 32 gauge x [...] BY MOUTH ONCE DAILY. miscellaneous medical supply [facility], As directed. Wipe aide naloxone (NARCAN) 4 [...] As of 10/07/2023 Release to patient->Immediate Toshia Hooks NP URINE [facility] [address] [place] [address], * (ABNORMAL) HEMOGLOBIN A1C MONITORING (POCT) (09/21/2023 3:38 PM CDT) HEMOGLOBIN A1C MONITORING (POCT) 7.7(H) <=6.4 % 09/21/2023 3:50 PM CDT [facility] Blood BLOOD SPECIMEN / Unknown Butterfly / Unknown 09/21/2023 3:38 PM CDT 09/21/2023 3:40 PM CDT Narrative [facility] - 09/21/2023 3:50 PM CDT ? [...] Anemias, Splenectomy ? Barbara Valentin DO CHEMISTRY [facility] [address] [place] [address], * (ABNORMAL) BASIC METABOLIC PANEL (09/21/2023 3:38 PM CDT) Pathologist [facility] SODIUM 134(L) 136 - 145 mmol/L 09/21/2023 11:21 PM CDT [facility] POTASSIUM 4.9 3.5 - 5.1 mmol/L 09/21/2023 11:21 PM CDT [facility] CHLORIDE 95(L) 98 - 107 mmol/L 09/21/2023 11:21 PM CDT [facility] CO2,TOTAL 28 22 - 29 mmol/L 09/21/2023 11:21 PM CDT [facility] ANION GAP 11 5 - 18 09/21/2023 11:21 PM CDT [facility] GLUCOSE 490(H) 70 - 99 mg/dL 09/21/2023 11:21 PM CDT [facility] CALCIUM 9.2 8.8 - 10.2 mg/dL 09/21/2023 11:21 PM CDT [facility] BUN 46(H) 8 - 23 mg/dL 09/21/2023 11:21 PM CDT [facility] CREATININE 1.95(H) 0.50 - 0.90 mg/dL 09/21/2023 11:21 PM CDT [facility] BUN/CREAT RATIO 24(H) 10 - 20 11:21 PM CDT [facility] eGFR 29(L) >90 mL/min/1.7 3m2 09/21/2023 11:21 PM CDT [facility] Comment:As of 2021, eG [...] 3:40 PM CDT Barbara Valentin DO [facility] [address] [place] [address], * XR MAMMO BILAT SCREENING (04/28/2022 2:04 [...] For Patients: As a result of the Century Cures Act, medical imaging exams and procedure reports are released immediately into your electronic medical record. You may view this report before your referring provider. If you have questions, please contact your health care provider. XR MAMMO BILAT SCREENING [[id number]] CLINICAL HISTORY: ??This is an asymptomatic 61 y.o. patient. INDICATION FOR EXAM: Mammogram Screening. TECHNIQUE: CC & MLO views were obtained. ??This study was evaluated with the assistance of Computer-Aided Detection. COMPARISON FILM: Yes 03/02/18 [facility] 07/26/13 [facility] FINDINGS: ??The breasts are extremely dense, which lowers the sensitivity of mammography. There are no dominant masses, suspicious micro calcifications or areas of architectural distortion. Shania Montiel MD MAMMO * LIPID PANEL W REFLEX MEASURED LDL (04/28/2022 1:44 PM CDT) CHOLESTEROL,TOTAL 139 100 - 199 mg/dL 04/30/2022 6:25 PM CDT [facility] TRIGLYCERIDES 141 <150 mg/dL 04/30/2022 6:25 PM CDT [facility] HDL CHOLESTEROL 42 >40 mg/dL 6:25 PM CDT [facility] NON-HDL CHOLESTEROL 97 <145 mg/dl 04/30/2022 6:25 PM CDT [facility] CHOL/HDL RATIO 3.31 <4.50 04/30/2022 6:25 PM CDT [facility] LDL CHOLESTEROL 69 <=130 mg/dL 04/30/2022 6:25 PM CDT [facility] VLDL CHOLESTEROL 28 <=30 mg/dL 04/30/2022 6:25 PM CDT [facility] PROVIDER ORDERED STATUS RANDOM 04/30/2022 6:25 PM CDT [facility] Blood BLOOD SPECIMEN / Unknown Venipuncture / Unknown 04/28/2022 1:44 PM CDT 04/28/2022 1:45 PM CDT Shania Montiel MD CHEMISTRY Performing Organization Address [facility] Co de Phone Number [facility] [address] [place] [address], * FECAL DNA (AKA COLOGUARD) (11/10/2021 1:00 PM CDT) Shania Montiel MD COMMUNICATION ORD * ANTI HCV [[id number]] (02/16/2018 4:20 PM CDT) Pathologist [facility] HEPATITIS C ANTIBODY Non-React alex Non-React alex 02/17/2018 2:48 PM CDT [facility] Comment:Antibodies to HCV no t detected; does not exclude the possibility of exposure to HCV. Blood BLOOD SPECIMEN / Unknown Butterfly / Unknown 02/16/2018 4:20 PM CDT 02/16/2018 4:20 PM CDT Coleman Plata MD SEND OUTS Performing Organization Address [facility] Co de Phone Number [facility] [address] [place] [address], * HIV 1&2 TODAY (07/21/2015 9:40 AM SIGNAL OPERATOR TECHNICAL) Pathologist [facility] HIV-1/HIV-2 ANTIBODY Non-Reacti ve Non-Reacti ve 07/21/2015 10:31 AM SIGNAL OPERATOR TECHNICAL [facility] Blood specimen (specimen) BLOOD SPECIMEN / Unknown Venipuncture / Unknown 07/21/2015 9:40 AM SIGNAL OPERATOR TECHNICAL 07/21/2015 9:47 AM SIGNAL OPERATOR TECHNICAL Narrative [facility] - 07/21/2015 10:31 AM SIGNAL OPERATOR TECHNICAL HIV-1 p24 and HIV-1/HIV-2 Ab not detected Kait Morales DO SEND OUTS [facility] [address] [place] [address], [place] * REFLEXOLOGIST THIN PREP PAP SCREEN IMAGED (08/17/2012 4:02 PM SIGNAL OPERATOR TECHNICAL) CYTOLOGY CYTOPATHOLOGY REPORT [facility] Status: Final Status ?[id number] CLINICAL INFORMATION Last Date of LMP ? :07/03/2012 Last Pap Date ?:02/01/2011 Last Pap Result ?:NIL ABN [place]/Bx Past 5 YRS :None Hormone Usage ?:BCP/OCP/Patch/R ing Menstrual Status ? :Regular Periods [place]/Bx done today ? :No Additional Information :None [...] COLLECTED:08/17/12 ? ACCESSIONED: ??08/18/12 ?? SIGNED: ??08/21/12 [facility] PAP [place] CODE NIL [facility] Tissue specimen (specimen) (Cervical/Vagina l) 08/17/2012 4:02 PM SIGNAL OPERATOR TECHNICAL 08/17/2012 4:00 PM SIGNAL OPERATOR TECHNICAL Coleman Plata MD PATHOLOGY/CYTOLOGY [facility] INTERNAL ZIP [id number] [place] [address] from Last 3 Months or Most Recently [...] 8:49 PM 03/19/2011 7:03 PM Care Teams City Editor Relationship Specialty Start Date End Date GermanBarbara shea DO Patricia [address] [place] [address] PCP - General Family Practice 11/15/22 Julio Ibrahim MD [address] [place], [place] [id number] Surgery - Orthopedics 02/01/11 Chuy Doss MD [address] [place] [address] Surgery - Vascular 02/01/11 Markel Strong MD [address] [place] [address] Provider Family Practice 08/08/20 Nikolai Ibarra MD [address] [place] [address] Endocrinology 09/07/22 Suad Ng/ [employer] CM Water Truck Driver 07/14/17 [facility] Home Health Nurse 07/01/17 [facility] [employer] Services Home Health Aide 07/14/17 [facility] Gasoline Dragline Operator/ Ally Christianson [address] [place] [address] Water Truck Driver 07/07/17
--- OUTSIDE RECORDS SUMMARY | 2023-12-15 15:01 | XMS_ITS | Encounter Summary ---
Author Organization [facility] Address [address] [place] [address] Care Team Providers Care Pulp House Supervisor Name Role Phone Barbara Valentni DO Primary Care Provider Kevin zepeda Reason for Visit * Reason Comments CKD New Patient * Nephrology Services (Urgent) - Closed Specialty Diagnoses / Procedures Referred By Contac t Referred To Contact Nephrology Diagnoses Chronic kidney disease stage 4 (HCC) Barbara Valentin DO [address] [place] [address] Elian Humphrey MD [address] [place] [address] Referral ID Status Reason Start Date Expiration Date Visits Re quested Visits Authorized [id number] Closed 09/22/2023 09/21/2024 1 1 Encounter Details Date Type Department Care Team (Latest Contact Info) Description 11/10/2023 3:30 PM EDT Office Visit [facility] [address] [place] [address] Gabriel Hicks MD [address] [place] [address] Chronic kidney disease, stage 4 [...] prior. They will be faxed to Shama Reese. Dr. Hicks/RAFAEL Acosta Welcome to [facility] Although we are experts in the [...] in caring for renal patients. If your Splitting Machine Tender deems it appropriate, you will be scheduled [...] healthy, so we do have a Renal Electric Meter Tester Shop to help you with this. We encourage [...] let them know that you see a industrial arts public school teacher for your kidney disease. Ask that they contact your industrial arts public school teacher before this type of test is scheduled. [...] Doctors, Advanced Practice Providers, nurses, and Renal Electric Meter Tester Shop are here to provide you with the best renal care. We want you to feel free to call us when you have questions or concerns. To call the nurse at your industrial arts public school teacher's office, please see the address and telephone number listed on your After Visit Summary. Thank you, The Physicians and staff at [facility] UNDERSTANDING YOUR BLOOD PRESSURE & LAB [...] Mikayla Kuhn Date of : 1960 Chart: [id number] PCP: Barbara Valentin DO Referring Provider: Barbara [...] her close friend who also is her HOTEL STAFF MEMBER. No recent illnesses or hospitalizations. Tolerating her [...] 05/12/2024). Gabriel Hicks MD [facility] The following portions of the patient's chart [...] MG/DOSE powder Yuni Olea MD Inhale 1 Fr[place] into affected nostril(s) each time if needed [...] disease documented in this encounter Care Teams Pulp House Supervisor Relationship Specialty Start Date End Date Barbara Valentin [place] [address] PCP - General Family Medicine 09/22/23 documented as of this encounter
--- OUTSIDE RECORDS SUMMARY | 2023-12-15 15:01 | XMS_ITS | Encounter Summary ---
Author Organization [facility] Address [address] [place] [address] Care Team Providers Care Tanner Rotary Drum Continuous Process Name Role Phone Barbara Valentin DO Primary Care Provider Kevin zepeda Encounter Details Date Type Department Care Team (Late st Contact Info) Description 09/23/2023 Office Communication [facility] [address] [place] [address] Barbara Valentin DO [address] [place] [address] Social History Tobacco Use Types Packs/Day Years [...] on filedocumented in this encounter Care Teams Tanner Rotary Drum Continuous Process Relationship Specialty Start Date End Date Barbara Valentin DO [address] [place] [address] PCP - General Family Medicine 09/22/23 documented as of this encounter
== END 2023-12-15 14:50 | disposition home or self-care (01) ==
LOC: WOUND 14:59
PROVIDERS: PCP Family Medicine; Visit Provider Nurse Practitioner Family
DX: E11.621 Type 2 diabetes mellitus with foot ulcer (principal); L97.422 Non-pressure chronic ulcer of left heel and midfoot with fat layer exposed; Z79.4 Long term (current) use of insulin
CPT/HCPCS: 11042

== ENCOUNTER 2023-12-22 15:03 | Outpatient (CLI) | payer OTHER, SELFPAY ==
--- OUTSIDE RECORDS SUMMARY | 2023-12-22 15:05 | XMS_ITS | Encounter Summary ---
Author Organization [facility] Address [address] [place] [address] Care Team Providers Care Motorized Squad Captain Name Role Phone Barbara Valentin DO Primary Care Provider Kevin zepeda Reason for Visit * Reason Comments CKD New Patient * Nephrology Services (Urgent) - Closed Specialty Diagnoses / Procedures Referred By Contac t Referred To Contact Nephrology Diagnoses Chronic kidney disease stage 4 (HCC) Barbara Valentin DO [address] [place] [address] lEian Humphrey MD [address] [place] [address] Referral ID Status Reason Start Date Expiration Date Visits Re quested Visits Authorized [id number] Closed 09/22/2023 09/21/2024 1 1 Encounter Details Date Type Department Care Team (Latest Contact Info) Description 11/10/2023 3:30 PM EDT Office Visit [facility] [address] [place] [address] Gabriel Hicks MD [address] [place] [address] Chronic kidney disease, stage 4 [...] Hicks/RAFAEL Acosta Welcome to [facility] Although we are experts in the [...] in caring for renal patients. If your Glove Pairer deems it appropriate, you will be scheduled [...] healthy, so we do have a Renal Derrick Helper to help you with this. We encourage [...] let them know that you see a ballistics expert forensic for your kidney disease. Ask that they contact your ballistics expert forensic before this type of test is scheduled. [...] Doctors, Advanced Practice Providers, nurses, and Renal Derrick Helper are here to provide you with the best renal care. We want you to feel free to call us when you have questions or concerns. To call the nurse at your ballistics expert forensic's office, please see the address and telephone number listed on your After Visit Summary. Thank you, The Physicians and staff at [facility] UNDERSTANDING YOUR BLOOD PRESSURE & LAB [...] Mikayla Kuhn Date of : 1960 Chart: [id number] PCP: Barbara Valentin DO Referring Provider: Barbara [...] her close friend who also is her GOLF CADDIE. No recent illnesses or hospitalizations. Tolerating her [...] 05/12/2024). Gabriel Hicks MD [facility] The following portions of the patient's chart [...] MG/DOSE powder Yuni Olea MD Inhale 1 [place] into affected nostril(s) each time if needed [...] disease documented in this encounter Care Teams Motorized Squad Captain Relationship Specialty Start Date End Date Barbara Valentin [place] [address] PCP - General Family Medicine 09/22/23 documented as of this encounter
--- OUTSIDE RECORDS SUMMARY | 2023-12-22 15:05 | XMS_ITS | Clinical Summary ---
Author Organization [facility] Address [place], [place] [address] Care Team Providers Care Granite Setter Name Role Phone Julio Ibrahim MD Unavailable Chuy Doss MD Unavailable [phone] RufusteMarkel meraz MD Unavailable [phone] Nikolai Ibarra MD Unavailable [phone] Barbara Valentin DO Primary Care Provider [...] Each 03/02/20 21 Active blood sugar diagnostic ([employer] Worker Express Test Strip) stripIndications:U ncontrolled type 1 [...] mellitus at risk of hypoglycemia Inhale 1 [place] into affected nostril(s) each time if needed [...] nasal solution (FLONASE)Indicatio ns:Nasal congestion Inhale 1 [place] into affected nostril(s) once daily. Inhale 1 [place] in the nostril(s) once daily. 16 g [...] continuous glucose monitor READER (FreeStyle Elli 2 [place])Indications :Type 1 diabetes mellitus with other specified complication (HC) To be used to read blood sugars per shoe turner's directions. 1 Each 05/19/20 Active blood-glucose meterIndications:T [...] be used to read blood sugars per shoe turner's directions. 6 Each 3 09/06/19 24 Active omeprazole (PRILOSEC) 20 mg Delayed-Release capsuleIndications :Chronic GERD Take 1 Capsule (20 mg) by mouth once daily before a meal. 90 Capsule 1 09/06/19 24 Active acetaminophen SR (TYLENOL ARTHRITIS) [...] ONCE DAILY. 60 Capsule 11/16/19 24 Active cholecalciferol (VITAMIN D3) 2,000 unit capsuleIndications :Vitamin D deficiency Take 1 Capsule (2,000 units) by mouth once daily. 90 Capsule 2 11/30/19 24 Active pen needle, diabetic (NovoFine Plus) 32 gauge x 1/6 ndleIndications:Di abetes mellitus type 1 with complications (HC) Inject subcutaneous. TO USE FOR INSULIN ADMINISTRATION FOUR TIMES DAILY 400 Each 3 12/08/19 24 Active Diaper,Brief, Adult,Disposable (Per-Fit Underwear)Indicati ons:Urinary incontinence, unspecified type ADULT PULL UPS XL THREE TIMES A DAY DIRECTED 96 Each 11 12/10/19 24 Active oxyCODONE (ROXICODONE) 5 mg immediate release tabletIndications: Chronic pain syndrome,Neuropath y due to secondary diabetes (HC) Si p.o. B.I.D. / PRN For O.A. pain or Diabetic P.N. Pain ; max: 2 a day. Use dates: 12/23/23-01/21/24 60 Tablet 12/20/19 24 Active Insulin [place], Disposable, (UltiCare Pen Needle) 32 gauge x [...] 90 Capsule 2 02/24/20 23 024 Discontinued insulin lispro (HumaLOG U-100 Insulin) 100 unit/mL injectionIndicatio ns:Diabetes mellitus type 1 with complications (HC) INJECT 4 UNITS SUBCUTANEOUSLY WITH MEALS THREE TIMES DAILY 10 mL 3 09/06/19 24 024 Discontinued(Du plicate therapy (E-cancel not sent)) oxyCODONE (ROXICODONE) 5 mg immediate release tabletIndications: Chronic pain syndrome,Neuropath y due to secondary diabetes (HC) Si p.o. B.I.D. / PRN For O.A. pain or Diabetic P.N. Pain ; max: 2 a day. Use dates: 11/23/23-12/22/23 60 Tablet 11/18/19 24 024 Discontinued(Re order (E-cancel not sent)) Active Problems Patient Care Coordination No te Formatting of this note migh t be different from the original. Family and Getting more independent is what matters most to Kati. Akti would like her care team to know she has supportive family. What are Kati's challenges, stressors, or barriers? Mobility, finances. Problem Noted Date Diagnosed Date Controlled substance agreement signed - 10/07/23 10/07/2023 Overview: [facility] Noem[facility] Dennis .................... 10/07/2023 4:39 PM Type 1 diabetes mellitus with proliferative reti nopathy 11/23/2022 Depression, recurrent 08/24/2022 Hyperkalemia 08/13/2021 S/P gastric bypass 07/30/2021 Overview: 2008 lab RNY CKD (chronic kidney disease) stage [...] hypoxia which led to extended stay in [facility] care 07/2015- 05/2017 Hospitalized with ketoacidosis 06/2017 [...] post total right knee replacement 01/02/2015 06/10/2017 [facility] (current) use of anticoagulants 11/27/2013 12/28/2013 Anticoagulation [...] Encounters Date Type Department Care Team Description 12/20/2023 Refill [facility] [address] [place] [address] Saúlqra Barbara Patricia, DO Refill Request (Humalog Kwikpen Insulin) 12/16/2023 Refill [facility] [address] [place] [address] Toshia Hooks, AGRIBUSINESS PROFESSOR Refill Request (Patient son called requesting oxycodone 5 mg at [facility].////) 12/15/2023 Telephone [facility] [address] [place] [address] Barbie Barbara Patricia, DO Lab 12/08/2023 Refill [facility] [address] [place] [address] Shaqra, Barbara Patricia, DO Refill Request (Ulticare Pen Needle, Per-fit Underwear) 12/07/2023 Refill [facility] [address] [place] [address] Shaqra Barbara Patricia, DO Refill Request (Ulticare Pen Needle) 11/29/2023 Telephone [facility] [address] [place] [address] Saúlqra Barbara Patricia, DO Referral 11/29/2023 Refill [facility] [address] [place] [address] Shaqra, Barbara Patricia, DO Refill Request (Cholecalciferol) 11/18/2023 Refill [facility] [address] [place] [address] Toshia Hooks, AGRIBUSINESS PROFESSOR Refill Request (oxycodone 5 mg at [facility]) 11/17/2023 Telephone [facility] [address] [place] [address] Saúlqra, Barbara Patricia, DO Questions (Vish rod R.N. case specialist with [facility] has some questions for pcp) 11/15/2023 Refill [facility] [address] [place] [address] Shaqra Barbara Patricia, DO Refill Request (Levothyroxine, Fluoxetine) 11/11/2023 Telephone [facility] [address] [place] [address] Saúlqra, Barbara Patricia, DO questions and concerns (vish jennings R.N. called in with questions and concerns for PCP) 10/26/2023 Telephone [facility] [address] [place] [address] Saúlqra, Barbara Patricia, DO Medication Management 10/18/2023 Refill [facility] [address] [place] [address] Toshia Hooks, AGRIBUSINESS PROFESSOR Refill Request 10/11/2023 Refill [facility] [address] [place] [address] Saúlqra, Barbara Patricia, DO Refill Request (Cyanocobalamin, Pregabalin) 10/07/2023 4:00 PM CDT Office Visit [facility] [address] [place] [address] Toshia Hooks, AGRIBUSINESS PROFESSOR Follow Up; Foot Numbness (It is controlled with her care as it is. ); Depression (She feels like things are dark & needs to Put lights on. Just had Prozac initiated. Too soon to notice any difference. She asked her son Nikolai to let her know if he notices any difference. ); Lab 10/07/2023 Travel 10/06/2023 Telephone [facility] [address] [place] [address] Saúlqra, Barbara Patricia, DO Follow Up 09/27/2023 Refill [facility] [address] [place] [address] Harjit Green NP Refill Request (Buprenorphine) 09/22/2023 Telephone [facility] [address] [facility] [address] Germanra Barbara Patricia, DO Results 09/21/2023 3:25 PM CDT Office Visit [facility] [address] [place] [address] Saúlqra, Barbara Patricia, DO Diabetes; Medication Management 09/21/2023 Travel from Last 3 Months Immunizations Name Administration Dates Next Due AMB Influenza, IIV3 (Age >=3 years)(Flu Clinic Only) 05/17/2013,05/06/2010 COVID-19 vaccine (SNAPin Software-DwellGreen NTech 30mcg/0.3mL) 12YO+ BIVALENT PF, MDV 04/28/2022 COVID-19 vaccine (SNAPin Software-Bio NTech 30mcg/0.3mL) PF, MDV 06/23/2021 Hepatitis B [...] T Respiratory Rate 14 08/24/2022 2:38 PM WHIZZER Oxygen Saturation 93% 10/07/2023 4:16 PM CDT Inhaled Oxygen Concentration - - Weight 96.7 kg (213 lb 3.2 oz) 02/28/2023 3:16 P M CDT Height 152.4 cm (5') 01/02/2019 8:57 PM CDT Body Mass Index 41.64 01/02/2019 8:57 PM CDT Plan of Treatment Upcoming Encounters Date Type Department Care Team (Late st Contact Info) Description 12/23/2023 2:35 PM CDT Office Visit [facility] [address] [place] [address] Barbara Valentin Patricia, DO [address] [place] [address] 01/06/2024 4:00 PM CDT Office Visit [facility] [address] [place] [address] Toshia Hooks, AGRIBUSINESS PROFESSOR [address] [place] [address] Health Maintenance Due Date Last Done Comments [...] 03/18/2020, Additional history exists Fecal testing sDNA-FIT (Gurley guard) for age 45-75 11/10/2024 11/10/2021 Pneumococcal series for age 6-64 (3 of 3 - PPSV23 or PCV20) 2026 08/17/2016, 08/14/2014, 07/04/2005, Additional history exists Lipids for age 45-75 04/28/2027 04/28/2022, 08/17/2019, 08/31/2018, Additional history exists Tdap Completed 08/25/2010 HIV for age 15-65 Completed 07/21/2015 Hepatitis C screening for ag e 18-79 Completed 02/16/2018 Medical Devices Implanted Type Area Np Device Identifier Shelf Expiration Date Model / Serial / Lot [id number] loderm 2x12mm [[id number]] Implanted:Qty: 1 on 08/08/2008 at [facility] Explanted:at [facility] (Quantity not on file) [employer] [id number]# / [id number] / Stem Compnt Primary 8mm Mini - [id number] Implanted:Qty: 1 on 03/17/2011 at [facility] Right: Shoulder BIOMET [id number]# / / [id number] Head Hum Bio-Mod [id number] - [id number] Implanted:Qty: 1 on 03/17/2011 at [facility] Right: Shoulder BIOMET [id number]# / / [id number] Base Glenoid Hybrid 4mm Sm - [id number] Implanted:Qty: 1 on 03/17/2011 at [facility] Right: Shoulder BIOMET [id number]# / / [id number] Cmnt 1/2 Dosehowmedica - [id number] Implanted:Qty: 1 on 03/17/2011 at [facility] Right: Shoulder [employer] [id number] 0# / / [id number] Post Glenoid Hybrid Regenerex - [id number] Implanted:Qty: 1 on 03/17/2011 at [facility] Right: Shoulder BIOMET [id number] # / / [id number] Head Humeral 44x15 Co Cr Biomodular - [id number] Implanted:Qty: 1 on 07/12/2012 at [facility] Left: Shoulder BIOMET [id number]# / / [id number] Shoulder Stem Implanted:Qty: 1 on 07/12/2012 at [facility] Left: Shoulder [id number] / / [id number] Description:SHOULDER STEM Cmnt Bone 1/2 D[employer]howmedica - [id number] Implanted:Qty: 1 on 07/12/2012 at [facility] Left: Shoulder [employer] 6188-1- 0# / / [id number] Post Glenoid Hybrid Regenerex - [id number] Implanted:Qty: 1 on 07/12/2012 at [facility] Left: Shoulder BIOMET [id number] # / / [id number] Base Glenoid Hybrid 4mm Sm - [id number] Implanted:Qty: 1 on 07/12/2012 at [facility] Left: Shoulder BIOMET [id number]# / / [id number] Procedures Procedure Name Priority Date/Time Associated Diagnosis [...] HIV 1/2 Add On 07/21/2015 9:40 AM WHIZZER CLASS B DRIVER THIN PREP PAP SCREEN IMAGED Routine 08/17/2012 4:02 PM WHIZZER Screening for malignant neoplasm of the cervix from Last 3 Months or Most Recently Relevant to Health Maintenance Results * (ABNORMAL) COMPLIANCE DRUG ANALYSIS (10/07/2023 4:00 PM CDT) 6-MONOACETYL MORPHINE NEG NEG ng/mL 10/12/2023 2:04 PM [facility] AMPHETAMINE URINE NEG <=500 ng/mL 10/12/2023 2:04 PM [facility] BARBITURATE URINE NEG <=200 ng/mL 10/12/2023 2:04 PM [facility] BENZODIAZEPINE URINE NEG <=100 ng/mL 10/12/2023 2:04 PM [facility] BUPRENORPHRINE URINE NEG <=5 ng/mL 10/02 2:04 PM [facility] COCAINE METAB URINE NEG <=300 ng/mL 10/12/2023 2:04 PM [facility] ETHYLGLUCURONIDE URINE NEG <=250 ng/mL 10/12/2023 2:04 PM [facility] FENTANYL URINE NEG <=4 ng/mL 10/12/2023 2:04 PM [facility] METHADONE URINE NEG <=300 ng/mL 10/12/2023 2:04 PM [facility] OPIATES URINE NEG <=300 ng/mL 10/12/2023 2:04 PM [facility] OXYCODONE URINE POS(A) <=100 ng/mL 10/12/2023 2:04 PM [facility] PROPOXYPHENE URINE NEG <=300 ng/mL 10/12/2023 2:04 PM [facility] THC 50 URINE NEG <=50 ng/mL 10/12/2023 2:04 PM [facility] TRAMADOL NEG <=200 ng/mL 10/12/2023 2:04 PM [facility] PH URINE 5.2 5.0 - 7.0 10/12/2023 2:04 PM [facility] CREAT UR 28 >=20 mg/dL 10/12/2023 2:04 PM [facility] MASS SPECTROMETRY URINE See Below 10/12/2023 2:04 PM [facility] Comment:Acetaminophen, Oxyco done and Oxycodone metabolites present. Urine URINE SPECIMEN / Unknown Non-Blood / Unknown 10/07/2023 4:00 PM CDT 10/08/2023 9:15 AM CDT [facility] - 10/12/2023 2:04 PM CDT Current Outpatient [...] 4 times per day. blood sugar diagnostic ([employer] Worker Express Test Strip) strip, Test blood sugar [...] continuous glucose monitor READER (FreeStyle Elli 2 [place]), To be used to read blood sugars per shoe turner's directions. continuous glucose monitor SENSOR KIT (FreeStyle Elli 2 Sensor), As directed. To be used to read blood sugars per shoe turner's directions. CPAP, CPAP machine for home use [...] per actuation) nasal solution (FLONASE), Inhale 1 [place] into affected nostril(s) once daily. Inhale 1 [place] in the nostril(s) once daily. glucagon (Baqsimi) 3 mg/actuation nasal spray, Inhale 1 [place] into affected nostril(s) each time if needed [...] before meals. Product desired: HUMALOG KWIKPEN Insulin [place], Disposable, (UltiCare Pen Needle) 32 gauge x [...] BY MOUTH ONCE DAILY. miscellaneous medical supply [facility], As directed. Wipe aide naloxone (NARCAN) 4 [...] Release to patient->Immediate Toshia Hooks NP URINE [facility] [address] [facility] [address] [place] [address], [place] * (ABNORMAL) HEMOGLOBIN A1C MONITORING (POCT) (09/21/2023 3:38 PM CDT) [facility] HEMOGLOBIN A1C MONITORING (POCT) 7.7(H) <=6.4 % 09/21/2023 3:[address] [facility] Blood BLOOD SPECIMEN / Unknown Butterfly / Unknown 09/21/2023 3:38 PM CDT 09/21/2023 3:40 PM CDT Narrative [facility] - 09/21/2023 3:50 PM CDT [...] Anemias, Splenectomy ? Barbara Valentin DO CHEMISTRY [facility] [address] [place] [address], * (ABNORMAL) BASIC METABOLIC PANEL (09/21/2023 3:38 PM CDT) [facility] SODIUM 134(L) 136 - 145 mmol/L 09/21/2023 11:21 PM CDT [facility] POTASSIUM 4.9 3.5 - 5.1 mmol/L 09/21/2023 11:21 PM CDT [facility] CHLORIDE 95(L) 98 - 107 mmol/L 09/21/2023 11:21 PM CDT [facility] CO2,TOTAL 28 22 - 29 mmol/L 09/21/2023 11:21 PM CDT [facility] ANION GAP 11 5 - 18 09/21/2023 11:21 PM CDT [facility] GLUCOSE 490(H) 70 - 99 mg/dL 09/21/2023 11:21 PM CDT [facility] CALCIUM 9.2 8.8 - 10.2 mg/dL 09/21/2023 11:21 PM CDT [facility] BUN 46(H) 8 - 23 mg/dL 09/21/2023 11:21 PM CDT [facility] CREATININE 1.95(H) 0.50 - 0.90 mg/dL 09/21/2023 11:21 PM CDT [facility] BUN/CREAT RATIO 24(H) 10 - 20 11:21 PM CDT [facility] eGFR 29(L) >90 mL/min/1.7 3m2 09/21/2023 11:21 PM CDT [facility] Comment:As of 2021, eG FR [...] 3:40 PM CDT Barbara Valentin DO [facility] [address] [place] [address], * XR MAMMO BILAT SCREENING (04/28/2022 2:04 [...] health care provider. XR MAMMO BILAT SCREENING [[id number]] CLINICAL HISTORY: ??This is an asymptomatic 61 y.o. patient. INDICATION FOR EXAM: Mammogram Screening. TECHNIQUE: CC & MLO views were obtained. ??This study was evaluated with the assistance of Computer-Aided Detection. COMPARISON FILM: Yes 03/02/18 [facility] 07/26/13 [facility] FINDINGS: ??The breasts are extremely dense, which lowers the sensitivity of mammography. There are no dominant masses, suspicious micro calcifications or areas of architectural distortion. Shania Montiel MD MAMMO * LIPID PANEL W REFLEX MEASURED LDL (04/28/2022 1:44 PM CDT) CHOLESTEROL,TOTAL 139 100 - 199 mg/dL 04/30/2022 6:25 PM CDT [facility] TRIGLYCERIDES 141 <150 mg/dL 04/30/2022 6:25 PM CDT [facility] HDL CHOLESTEROL 42 >40 mg/dL 6:25 PM CDT [facility] NON-HDL CHOLESTEROL 97 <145 mg/dl 04/30/2022 6:25 PM CDT [facility] CHOL/HDL RATIO 3.31 <4.50 04/30/2022 6:25 PM CDT [facility] LDL CHOLESTEROL 69 <=130 mg/dL 04/30/2022 6:25 PM CDT [facility] VLDL CHOLESTEROL 28 <=30 mg/dL 04/30/2022 6:25 PM CDT [facility] PROVIDER ORDERED STATUS RANDOM 04/30/2022 6:25 PM CDT [facility] Blood BLOOD SPECIMEN / Unknown Venipuncture / Unknown 04/28/2022 1:44 PM CDT 04/28/2022 1:45 PM CDT Shania Montiel MD CHEMISTRY Performing Organization Address City/[facility]/ZIP Co de Phone Number [facility] [address] [place] [address], * FECAL DNA (AKA COLOGUARD) (11/10/2021 1:00 PM CDT) Shania Montiel MD COMMUNICATION ORD * ANTI HCV [[id number]] (02/16/2018 4:20 PM CDT) Pathologist [facility] HEPATITIS C ANTIBODY Non-React alex Non-React alex 02/17/2018 2:48 PM CDT [facility] Comment:Antibodies to HCV no t detected; does not exclude the possibility of exposure to HCV. Blood BLOOD SPECIMEN / Unknown Butterfly / Unknown 02/16/2018 4:20 PM CDT 02/16/2018 4:20 PM CDT Coleman Plata MD SEND OUTS Performing Organization Address [place]/[facility] Co de Phone Number [facility] [address] [place] [address], * HIV 1&2 TODAY (07/21/2015 9:40 AM WHIZZER) [facility] HIV-1/HIV-2 ANTIBODY Non-Reacti ve Non-Reacti ve 07/21/2015 10:31 AM WHIZZER [facility] Blood specimen (specimen) BLOOD SPECIMEN / Unknown Venipuncture / Unknown 07/21/2015 9:40 AM WHIZZER 07/21/2015 9:47 AM WHIZZER Narrative [facility] - 07/21/2015 10:31 AM WHIZZER HIV-1 p24 and HIV-1/HIV-2 Ab not detected Kait Morales DO SEND OUTS Performing Organization Address City/[facility]/ZIP Co de Phone Number [facility] [address] [place] [address], * CLASS B DRIVER THIN PREP PAP SCREEN IMAGED (08/17/2012 4:02 PM WHIZZER) CYTOLOGY CYTOPATHOLOGY REPORT [facility] Status: Final Status ?[id number] CLINICAL INFORMATION Last Date of LMP ? :07/03/2012 Last Pap Date ?:02/01/2011 Last Pap Result ?:NIL ABN Acosta/Bx Past 5 YRS :None Hormone Usage ?:BCP/OCP/Patch/R ing Menstrual Status ? :Regular Periods Acosta/Bx done today ? :No Additional Information :None [...] COLLECTED:08/17/12 ? ACCESSIONED: ??08/18/12 ?? SIGNED: ??08/21/12 [facility] PAP [place] CODE NIL [facility] Tissue specimen (specimen) (Cervical/Vagina l) 08/17/2012 4:02 PM WHIZZER 08/17/2012 4:00 PM WHIZZER Coleman Plata MD PATHOLOGY/CYTOLOGY [facility] INTERNAL ZIP [address] [place] [address] from Last 3 Months or Most Recently [...] 8:49 PM 03/19/2011 7:03 PM Care Teams Granite Setter Relationship Specialty Start Date End Date Barbie Barbara DO Patricia [address] [place] [address] PCP - General Family Practice 11/15/22 Julio Ibrahim MD [address] [place] [address] Surgery - Orthopedics 02/01/11 Chuy Doss MD [address] [place] [address] Surgery - Vascular 02/01/11 Markel Strong MD [address] [place] [address] Provider Family Practice 08/08/20 Nikolai Ibarra MD [address] [facility] [address] [place] [address] Endocrinology 09/07/22 Suad Ng/ [employer] CM Drying Frame Operator 07/14/17 [facility] Home Health Nurse 07/01/17 [facility] TOY MECHANIC Services Home Health Aide 07/14/17 [facility] Municipal Services Manager/ Ally Morillom [address] [place], [place] [id number] Drying Frame Operator 07/07/17
--- OUTSIDE RECORDS SUMMARY | 2023-12-22 15:05 | XMS_ITS | Encounter Summary ---
Author Organization [facility] Address [address] [facility] [address] [place] [address] Care Team Providers Care Alcohol And Drug Counselor Name Role Phone Barbara Valentin DO Primary Care Provider Kevin zepeda Encounter Details Date Type Department Care Team (Late st Contact Info) Description 09/22/2023 Documentation Only [facility] [address] [address] [place] [address] No, Pcp Social History Tobacco [...] on filedocumented in this encounter Care Teams Alcohol And Drug Counselor Relationship Specialty Start Date End Date Barbara Valentin DO [address] [place] [address] PCP - General Family Medicine 09/22/23 documented as of this encounter
--- OUTSIDE RECORDS SUMMARY | 2023-12-22 15:05 | XMS_ITS | Clinical Summary ---
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); Chronic diastolic congestive heart failure (HCC); Secondary hyperparathyroidism of renal origin (HCC); Anemia in chronic kidney disease 11/10/2023 Documentation Only [facility] [address] [place] [address] Ericka Hurst 09/23/2023 Office Communication [facility] [address] [facility] [address] [place] [address] Barbara Valentin DO 09/22/2023 Documentation Only [facility] [address] [facility] [address] [place] [id number] No, Pcp from Last 3 Months Immunizations [...] [place] from Last 3 Months Care Teams Biomass Facilitator Relationship Specialty Start Date End Date Barbara [place] [address] PCP - General Family Medicine 09/22/23
--- OUTSIDE RECORDS SUMMARY | 2023-12-22 15:05 | XMS_ITS | Encounter Summary ---
Author Organization [facility] Address [address] [place] [address] Care Team Providers Care Sales Agent Financial Report Service Name Role Phone Barbara Valentin Primary Care Provider Kevin zepeda Encounter Details Date Type Department Care Team (Late st Contact Info) Description 11/10/2023 Documentation Only [facility] [place] [address] Dave Hurst [address] [place] [address] Social History Tobacco Use Types [...] LAB BLOOD ORDERAB LES Performing Organization Address [facility] Co de Phone Number [...] LAB BLOOD ORDERAB LES Performing Organization Address [facility]/ZIP Co de Phone Number ALLINA * (ABNORMAL) [...] LAB BLOOD ORDERAB LES Performing Organization Address [facility] Co de Phone Number [...] LAB BLOOD ORDERAB LES Performing Organization Address City/[facility]/ZIP Co de Phone Number ALLINA documented in this encounter Visit Diagnoses Not on filedocumented in this encounter Care Teams Sales Agent Financial Report Service Relationship Specialty Start Date End Date Barbara Valentin DO [address] [place] [address] PCP - General Family Medicine 09/22/23 documented as of this encounter
--- OUTSIDE RECORDS SUMMARY | 2023-12-22 15:05 | XMS_ITS | Encounter Summary ---
Author Organization [facility] [place] [place] Address [address] [place] [address] Care Team Providers Care Etcher Photoengraving Name Role Phone Barbara Valentin DO Primary Care Provider Kevin zepeda Encounter Details Date Type Department Care Team (Late st Contact Info) Description 09/23/2023 Office Communication [facility] [address] [place] [address] Barbara Valentin DO [address] [place] [address] Social History Tobacco Use Types Packs/Day Years [...] Patient consultation per the referral received from Brabara Valentin. documented in this encounter Plan of Treatment Not on file documented as of this encounter Visit Diagnoses Not on filedocumented in this encounter Care Teams Etcher Photoengraving Relationship Specialty Start Date End Date Barbara Valentin DO [address] [place] [address] PCP - General Family Medicine 09/22/23 documented as of this encounter
== END 2023-12-22 15:04 | disposition home or self-care (01) ==
LOC: WOUND 15:03
PROVIDERS: PCP Family Medicine; Visit Provider Family Medicine
DX: E11.621 Type 2 diabetes mellitus with foot ulcer (principal); L97.422 Non-pressure chronic ulcer of left heel and midfoot with fat layer exposed; Z79.4 Long term (current) use of insulin
CPT/HCPCS: 11042

== ENCOUNTER 2023-12-28 03:59 | Outpatient (CLI) | payer OTHER, SELFPAY ==
--- OUTSIDE RECORDS SUMMARY | 2024-01-01 07:19 | XMS_ITS | Encounter Summary ---
Author Organization [facility] Address [address] [place] [address] Care Team Providers Care Earth Sciences Professor Name Role Phone Barbara Valentin Primary Care Provider Kevin zepeda Encounter Details Date Type Department Care Team (Late st Contact Info) Description 11/10/2023 Documentation Only [facility] [place] [address] Dave Hurst [address] [place] [address] Social History Tobacco Use Types [...] LAB BLOOD ORDERAB LES Performing Organization Address [facility] Co de Phone Number ALL[facility] * [...] LAB BLOOD ORDERAB LES Performing Organization Address [facility]/ZIP Co de Phone Number [facility] * [...] LAB BLOOD ORDERAB LES Performing Organization Address [facility] Co de Phone Number ALLINA * [...] LAB BLOOD ORDERAB LES Performing Organization Address City/[facility]/ZIP Co de Phone Number [facility] documented in this encounter Visit Diagnoses Not on filedocumented in this encounter Care Teams Earth Sciences Professor Relationship Specialty Start Date End Date Barbara Valentin DO [address] [place] [address] PCP - General Family Medicine 09/22/23 documented as of this encounter
--- OUTSIDE RECORDS SUMMARY | 2024-01-01 07:19 | XMS_ITS | Encounter Summary ---
Author Organization [facility] [place] [place] Address [address] [facility] [address] [place] [address] Care Team Providers Care Wallpaper Printer Name Role Phone Barbara Valentin DO Primary Care Provider Kevin zepeda Encounter Details Date Type Department Care Team (Late st Contact Info) Description 09/22/2023 Documentation Only [facility] [place] [address] [facility] [address] [place] [address] No, Pcp Social History Tobacco [...] on filedocumented in this encounter Care Teams Wallpaper Printer Relationship Specialty Start Date End Date Barbara Valentin DO [address] [place] [address] PCP - General Family Medicine 09/22/23 documented as of this encounter
--- OUTSIDE RECORDS SUMMARY | 2024-01-01 07:19 | XMS_ITS | Encounter Summary ---
Author Organization [facility] [place] Address [address] [place] [address] Care Team Providers Care Diamond Die Maker Name Role Phone Barbara Valentin DO Primary Care Provider Kevin zepeda Encounter Details Date Type Department Care Team (Late st Contact Info) Description 09/23/2023 Office Communication [facility] [address] [place] [address] Barbara Valentin DO [address] [place] [address] Social History Tobacco Use Types Packs/Day Years [...] on filedocumented in this encounter Care Teams Diamond Die Maker Relationship Specialty Start Date End Date Barbara Valentin DO [address] [place] [address] PCP - General Family Medicine 09/22/23 documented as of this encounter
--- OUTSIDE RECORDS SUMMARY | 2024-01-01 07:19 | XMS_ITS | Encounter Summary ---
Author Organization [facility] Address [address] [place] [address] Care Team Providers Care Director Of Marketing Analytics Name Role Phone Barbara Valentin DO Primary Care Provider Kevin zepeda Reason for Visit * Reason Comments CKD New Patient * Nephrology Services (Urgent) - Closed Specialty Diagnoses / Procedures Referred By Contac t Referred To Contact Nephrology Diagnoses Chronic kidney disease stage 4 (HCC) Barbara Valentin DO [address] [place] [address] Elian Humphrey MD [address] [place] [address] Referral ID Status Reason Start Date Expiration Date Visits Re quested Visits Authorized [id number] Closed 09/22/2023 09/21/2024 1 1 Encounter Details Date Type Department Care Team (Latest Contact Info) Description 11/10/2023 3:30 PM EDT Office Visit [facility] [address] [place] [id number] Gabriel Hicks MD [address] [place] [address] Chronic kidney disease, stage 4 [...] Hicks/RAFAEL Acosta Welcome to [facility] Although we are experts in the [...] in caring for renal patients. If your Molder Offbearer deems it appropriate, you will be scheduled [...] healthy, so we do have a Renal Vc++ Developer to help you with this. We encourage [...] let them know that you see a hedis analyst for your kidney disease. Ask that they contact your hedis analyst before this type of test is scheduled. [...] Doctors, Advanced Practice Providers, nurses, and Renal Vc++ Developer are here to provide you with the best renal care. We want you to feel free to call us when you have questions or concerns. To call the nurse at your hedis analyst's office, please see the address and telephone number listed on your After Visit Summary. Thank you, The Physicians and staff at [facility] UNDERSTANDING YOUR BLOOD PRESSURE & LAB [...] Mikayla Kuhn Date of : 1960 Chart: [id number] PCP: Barbara Valentin DO Referring Provider: Barbara [...] her close friend who also is her REFRIGERATION TECHNICIAN. No recent illnesses or hospitalizations. Tolerating her [...] 05/12/2024). Gabriel Hicks MD [facility] The following portions of the patient's chart [...] powder Yuni Olea MD Inhale 1 [place] into affected nostril(s) each time if needed [...] disease documented in this encounter Care Teams Director Of Marketing Analytics Relationship Specialty Start Date End Date Barbara Valent[place] [address] PCP - General Family Medicine 09/22/23 documented as of this encounter
--- OUTSIDE RECORDS SUMMARY | 2024-01-01 07:19 | XMS_ITS | Clinical Summary ---
Author Organization [employer] [facility] [employer] [facility] Address [place], [place] [address] Care Team Providers Care Crusher Wet Ground Mica Name Role Phone Julio Ibrahim MD Unavailable Chuy Doss MD Unavailable [phone] Markel Strong MD Unavailable [phone] Nikolai Ibarra MD Unavailable [phone] Barbara Valentin DO Primary Care Provider [...] Each 03/02/20 21 Active blood sugar diagnostic (Film Washer Express Test Strip) stripIndications:U ncontrolled type 1 [...] mellitus at risk of hypoglycemia Inhale 1 [place] into affected nostril(s) each time if needed [...] nasal solution (FLONASE)Indicatio ns:Nasal congestion Inhale 1 [place] into affected nostril(s) once daily. Inhale 1 [place] in the nostril(s) once daily. 16 g [...] continuous glucose monitor READER (FreeStyle Elli 2 Sharon)Indications :Type 1 diabetes mellitus with other specified complication (HC) To be used to read blood sugars per auto former machine operator's directions. 1 Each 05/19/20 Active [...] day. 400 Each 3 05/19/20 23 Active torsemide (DEMADEX) 20 mg tabletIndications: Hyperkalemia,Local ized edema TAKE TWO TABLETS BY MOUTH (40MG) ONCE DAILY 60 Tablet 3 09/09/19 24 Active continuous glucose monitor SENSOR KIT (FreeStyle Elli 2 Sensor)Indications :Type 1 diabetes mellitus with other specified complication (HC) As directed. To be used to read blood sugars per auto former machine operator's directions. 6 Each 3 09/06/19 [...] SOLOSTAR 9 mL 3 12/23/19 24 Active pregabalin (LYRICA) 100 mg capsuleIndications :Chronic pain syndrome TAKE TWO CAPSULES (200MG) BY MOUTH EVERY MORNING AND ONE CAPSULE IN THE EVENING WITH THE (50MG) TO TOTAL 150MG 90 Capsule 5 12/30/19 24 Active cetirizine (ZYRTEC) 5 mg tabletIndications: Wheezing Take 1 Tablet (5 mg) by mouth once daily. 90 Tablet 3 12/29/19 24 Active Insulin Afton, Disposable, (UltiCare Pen Needle) 32 gauge x /32Indications:D iabetes mellitus type 1 with complications (HC) [...] 90 Tablet 2 02/17/20 23 024 Discontinued pregabalin (LYRICA) 100 mg capsuleIndications :Chronic pain syndrome TAKE TWO CAPSULES (200MG) BY MOUTH EVERY MORNING AND ONE CAPSULE IN THE EVENING WITH THE (50MG) TO TOTAL 150MG 90 Capsule 5 06/16/20 23 024 Discontinued insulin lispro (HumaLOG U-100 [...] LANTUS SOLOSTAR 9 mL 3 09/21/19 24 06/21/2 024 Discontinued(*M edication adjustment) insulin lispro (HumaLOG [...] 24 024 Discontinued(Re order (E-cancel not sent)) nystatin 100,000 unit/gram creamIndications:I ntertrigo Apply topically to affected area(s) two times daily for 7 days. 30 g 1 12/23/19 24 024 Active Problems Patient Care Coordination No te Formatting of this note migh t be different from the original. Family and Getting more independent is what matters most to Kati. Kati would like her care team to know she has supportive family. What are Kati's challenges, stressors, or barriers? Mobility, finances. Problem Noted Date Diagnosed Date Controlled substance agreement signed - 10/07/23 10/07/2023 Overview: [facility] Noem[facility] Dennis .................... 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 07/2015- 05/2017 Hospitalized with ketoacidosis 06/2017 [...] post total right knee replacement 01/02/2015 06/10/2017 [facility] (current) use of anticoagulants 11/27/2013 12/28/2013 Anticoagulation [...] Headache(784.0) 09/09/2006 06/10/2017 Controlled type 1 diabetes john mensah with stage 1 chronic kidney disease 05/25/2002 7 Encounters Date Type Department Care Team Description 12/27/2023 Refill [facility] [address] [place] [address] Sir Valentini Patricia, DO Refill Request (Pregabalin, Cetirizine) 12/23/2023 2:35 PM CDT Office Visit [facility] [address] [place] [address] Germanra Barbara Patricia, DO Diabetes (3 month check, labs); Rash (Rash under breasts? ) 12/23/2023 Travel 12/20/2023 Refill [facility] [address] [place] [address] Barbie Barbara Patricia, DO Refill Request (Humalog Kwikpen Insulin) 12/16/2023 Refill [facility] [address] [place] [address] Toshia Hooks NP Refill Request (Patient son called requesting oxycodone 5 mg at [facility].////) 12/15/2023 Telephone [facility] [address] [place] [address] Sir Valentini Patricia, DO Lab 12/08/2023 Refill [facility] [address] [place] [address] Barbie Barbara Patricia, DO Refill Request (Ulticare Pen Needle, Per-fit Underwear) 12/07/2023 Refill [facility] [address] [place] [address] Saúlqra Barbara Patricia, DO Refill Request (Ulticare Pen Needle) 11/29/2023 Telephone [facility] [address] [place] [address] Sir Valentini Patricia, DO Referral 11/29/2023 Refill [facility] [address] [place] [address] Saúlqra, Barbara Patricia, DO Refill Request (Cholecalciferol) 11/18/2023 Refill [facility] [address] [place] [address] Toshia Hooks NP Refill Request (oxycodone 5 mg at [facility]) 11/17/2023 Telephone [facility] [address] [place] [address] Barbara Valentin Patricia, DO Questions (Vish rod R.N. medical case manager with [facility] has some questions for pcp) 11/15/2023 Refill [facility] [address] [place] [address] Barbara Valentin Patricia, DO Refill Request (Levothyroxine, Fluoxetine) 11/11/2023 Telephone [facility] [address] [place] [address] Barbara Valentin Patricia, DO questions and concerns (vish jennings R.N. called in with questions and concerns for PCP) 10/26/2023 Telephone [facility] [address] [place] [address] Barbara Valentin Patricia, DO Medication Management 10/18/2023 Refill [facility] [address] [place] [address] Toshia Hooks NP Refill Request 10/11/2023 Refill [facility] [address] [place] [address] Barbara Valentin Patricia, DO Refill Request (Cyanocobalamin, Pregabalin) 10/07/2023 4:00 PM CDT Office Visit [facility] [address] [place] [address] Toshia Hooks NP Follow Up; Foot Numbness (It is controlled with her care as it is. ); Depression (She feels like things are dark & needs to Put lights on. Just had Prozac initiated. Too soon to notice any difference. She asked her son Nikolai to let her know if he notices any difference. ); Lab 10/07/2023 Travel 10/06/2023 Telephone [facility] [address] [place] [address] Barbara Valentin Patricia, DO Follow Up from Last 3 Months Immunizations Name Administration Dates Next Due AMB Influenza, IIV3 (Age >=3 years)(Flu Clinic Only) 05/17/2013,05/06/2010 COVID-19 vaccine (Azuna-Bio NTech 30mcg/0.3mL) 12YO+ BIVALENT PF, MDV 04/28/2022 [...] T Respiratory Rate 14 08/24/2022 2:38 PM AUTOMATIC LINE SET UP MECHANIC Oxygen Saturation 95% 12/23/2023 3:00 PM CDT Inhaled Oxygen Concentration - - Weight 96.7 kg (213 lb 3.2 oz) 02/28/2023 3:16 P M CDT Height 152.4 cm (5') 01/02/2019 8:57 PM CDT Body Mass Index 41.64 01/02/2019 8:57 PM CDT Plan of Treatment Upcoming Encounters Date Type Department Care Team (Late st Contact Info) Description 01/06/2024 4:00 PM CDT Office Visit [facility] [address] [place] [address] Toshia Hooks NP [address] [place] [address] 03/26/2024 3:25 PM CDT Office Visit [facility] [address] [place] [address] Barbara Valentin DO [address] [place] [address] Health Maintenance Due Date Last Done Comments [...] 03/18/2020, Additional history exists Fecal testing sDNA-FIT ([place] guard) for age 45-75 11/10/2024 11/10/2021 Pneumococcal series for age 6-64 (3 of 3 - PPSV23 or PCV20) 2026 08/17/2016, 08/14/2014, 07/04/2005, Additional history exists Lipids for age 45-75 04/28/2027 04/28/2022, 08/17/2019, 08/31/2018, Additional history exists Tdap Completed 08/25/2010 HIV for age 15-65 Completed 07/21/2015 Hepatitis C screening for ag e 18-79 Completed 02/16/2018 Medical Devices Implanted Type Area Cutting Inspector Device Identifier Shelf Expiration Date Model / Serial / Lot [id number] loderm 2x12mm [[id number]] Implanted:Qty: 1 on 08/08/[address] [facility] Explanted:at [facility] (Quantity not on file) Stomach Radialogica [id number]# / [id number] / Stem Compnt Primary 8mm Mini - [id number] Implanted:Qty: 1 on 03/17/[address] [facility] Right: Shoulder BIOMET [id number]# / / [id number] Head Hum Bio-Mod [id number] - [id number] Implanted:Qty: 1 on 03/17/[address] [facility] Right: Shoulder BIOMET [id number]# / / [id number] Base Glenoid Hybrid 4mm Sm - [id number] Implanted:Qty: 1 on 03/17/[address] [facility] Right: Shoulder BIOMET [id number]# / / [id number] Cmnt 1/2 Dosehowmedica - [id number] Implanted:Qty: 1 on 03/17/[address] [facility] Right: Shoulder [employer] 6188-1-01 0# / / [id number] Post Glenoid Hybrid Regenerex - [id number] Implanted:Qty: 1 on 03/17/[address] [facility] Right: Shoulder BIOMET [id number] # / / [id number] Head Humeral 44x15 Co Cr Biomodular - [id number] Implanted:Qty: 1 on 07/12/[address] [facility] Left: Shoulder BIOMET [id number]# / / [id number] Shoulder Stem Implanted:Qty: 1 on 07/12/[address] [facility] Left: Shoulder [id number] / / [id number] Description:SHOULDER STEM Cmnt Bone 1/2 Dosehowmedica - [id number] Implanted:Qty: 1 on 07/12/[address] [facility] Left: Shoulder [place] [employer] 6188-1-01 0# / / [id number] Post Glenoid Hybrid Regenerex - [id number] Implanted:Qty: 1 on 07/12/[address] [facility] Left: Shoulder BIOMET [id number] # / / [id number] Base Glenoid Hybrid 4mm Sm - [id number] Implanted:Qty: 1 on 07/12/[address] [facility] Left: Shoulder BIOMET [id number]# / / [id number] Procedures Procedure Name Priority Date/Time Associated Diagnosis [...] HIV 1/2 Add On 07/21/2015 9:40 AM AUTOMATIC LINE SET UP MECHANIC SUPERVISOR MAIL CARRIERS THIN PREP PAP SCREEN IMAGED Routine 08/17/2012 4:02 PM AUTOMATIC LINE SET UP MECHANIC Screening for malignant neoplasm of the cervix from Last 3 Months or Most Recently Relevant to Health Maintenance Results * (ABNORMAL) HEMOGLOBIN A1C MONITORING (POCT) (12/23/2023 2:53 PM CDT) HEMOGLOBIN A1C MONITORING (POCT) 9.1(H) <=6.4 % 12/23/2023 3:04 PM CDT [facility] Blood BLOOD SPECIMEN / Unknown Venipuncture / Unknown 12/23/2023 2:53 PM CDT 12/23/2023 2:53 PM CDT Narrative [facility] - 12/23/2023 3:04 PM CDT [...] seen with: Untreated Anemias, Splenectomy ? Barbara Haysjaimee CHEMISTRY [facility] [address] [place] [address], * (ABNORMAL) COMPLIANCE DRUG ANALYSIS (10/07/2023 4:00 [...] URINE NEG <=4 ng/mL 10/12/2023 2:04 PM CDT [facility] METHADONE URINE NEG <=300 ng/mL 10/12/2023 2:04 PM CDT [facility] OPIATES URINE NEG <=300 ng/mL 10/12/2023 2:04 PM CDT [facility] OXYCODONE URINE POS(A) <=100 ng/mL 10/12/2023 2:04 PM CDT [facility] PROPOXYPHENE URINE NEG <=300 ng/mL 10/12/2023 2:04 PM CDT [facility] THC 50 URINE NEG <=50 ng/mL 10/12/2023 2:04 PM CDT [facility] TRAMADOL NEG <=200 ng/mL [...] 4:00 PM CDT 10/08/2023 9:15 AM CDT [facility] - 10/12/2023 2:04 PM CDT Current Outpatient [...] 4 times per day. blood sugar diagnostic (Film Washer Express Test Strip) strip, Test blood sugar [...] continuous glucose monitor READER (FreeStyle Elli 2 Sharon), To be used to read blood sugars per auto former machine operator's directions. continuous glucose monitor SENSOR KIT (FreeStyle Elli 2 Sensor), As directed. To be used to read blood sugars per auto former machine operator's directions. CPAP, CPAP machine for [...] per actuation) nasal solution (FLONASE), Inhale 1 [place] into affected nostril(s) once daily. Inhale 1 [place] in the nostril(s) once daily. glucagon (Baqsimi) 3 mg/actuation nasal spray, Inhale 1 [place] into affected nostril(s) each time if needed [...] before meals. Product desired: HUMALOG KWIKPEN Insulin Afton, Disposable, (UltiCare Pen Needle) 32 gauge x 5/32, TO USE FOR INSULIN ADMINISTRATION FOUR TIMES DAILY insulin syringe-needle u-100 (UltiCare) 1 mL 31 gauge x 11/16, For administering insulin at home.FOR ADMINISTERING INSULIN [...] BY MOUTH ONCE DAILY. [facility], As directed. Wipe aide naloxone (NARCAN) 4 [...] [facility] [address] [place] [address], [place] * XR MAMMO BILAT SCREENING (04/28/2022 [...] health care provider. XR MAMMO BILAT SCREENING [[id number]] CLINICAL HISTORY: ??This is an asymptomatic 61 y.o. patient. INDICATION FOR EXAM: Mammogram Screening. TECHNIQUE: CC & MLO views were obtained. ??This study was evaluated with the assistance of Computer-Aided Detection. COMPARISON FILM: Yes 03/02/18 [facility] 07/26/13 [facility] FINDINGS: ??The breasts are extremely dense, which lowers the sensitivity of mammography. There are no dominant masses, suspicious micro calcifications or areas of architectural distortion. Shania Montiel MD MAMMO * LIPID PANEL W REFLEX MEASURED LDL (04/28/2022 1:44 PM CDT) CHOLESTEROL,TOTAL 139 100 - 199 mg/dL 04/30/2022 6:25 PM CDT [facility] TRIGLYCERIDES 141 <150 mg/dL 04/30/2022 6:25 PM CDT [facility] HDL CHOLESTEROL 42 >40 mg/dL 6:25 PM CDT [facility] NON-HDL CHOLESTEROL 97 <145 mg/dl 04/30/2022 6:25 PM CDT [facility] CHOL/HDL RATIO 3.31 <4.50 04/30/2022 6:25 PM CDT [facility] LDL CHOLESTEROL 69 <=130 mg/dL 04/30/2022 6:25 PM CDT [facility] VLDL CHOLESTEROL 28 <=30 mg/dL 04/30/2022 6:25 PM CDT [facility] PROVIDER ORDERED STATUS RANDOM 04/30/2022 6:25 PM CDT [facility] Blood BLOOD SPECIMEN / Unknown Venipuncture / Unknown 04/28/2022 1:44 PM CDT 04/28/2022 1:45 PM CDT Shania Montiel MD CHEMISTRY [facility] [address] [place] [address], [place] * FECAL DNA (AKA COLOGUARD) (11/10/2021 1:00 PM CDT) Shania Montiel MD COMMUNICATION ORD * ANTI HCV [08440.2] (02/16/2018 4:20 PM CDT) HEPATITIS C ANTIBODY Non-React alex Non-React alex 02/17/2018 2:48 PM CDT [facility] Comment:Antibodies to HCV no t detected; does not exclude the possibility of exposure to HCV. Blood BLOOD SPECIMEN / Unknown Butterfly / Unknown 02/16/2018 4:20 PM CDT 02/16/2018 4:20 PM CDT Coleman Plata MD SEND OUTS [facility] [address] [place] [address], * HIV 1&2 TODAY (07/21/2015 9:40 AM AUTOMATIC LINE SET UP MECHANIC) HIV-1/HIV-2 ANTIBODY Non-Reacti ve Non-Reacti ve 07/21/2015 10:31 AM AUTOMATIC LINE SET UP MECHANIC [facility] Blood specimen (specimen) BLOOD SPECIMEN / Unknown Venipuncture / Unknown 07/21/2015 9:40 AM AUTOMATIC LINE SET UP MECHANIC 07/21/2015 9:47 AM AUTOMATIC LINE SET UP MECHANIC Narrative [facility] - 07/21/2015 10:31 AM AUTOMATIC LINE SET UP MECHANIC HIV-1 p24 and HIV-1/HIV-2 Ab not detected Kait Morales DO SEND OUTS [facility] [address] [place] [address], * SUPERVISOR MAIL CARRIERS THIN PREP PAP SCREEN IMAGED (08/17/2012 4:02 PM AUTOMATIC LINE SET UP MECHANIC) Pathologist [facility] CYTOLOGY CYTOPATHOLOGY REPORT [facility] Status: Final Status ?[id number] CLINICAL INFORMATION Last Date of LMP ? :07/03/2012 Last Pap Date ?:02/01/2011 Last Pap Result ?:NIL ABN [place]/Bx Past 5 YRS :None Hormone Usage ?:BCP/OCP/Patch/R ing Menstrual Status ? :Regular Periods [place]/Bx done today ? :No Additional Information :None [...] COLLECTED:08/17/12 ? ACCESSIONED: ??08/18/12 ?? SIGNED: ??08/21/12 [facility] PAP [place] CODE NIL [facility] Tissue specimen (specimen) (Cervical/Vagina l) 08/17/2012 4:02 PM AUTOMATIC LINE SET UP MECHANIC 08/17/2012 4:00 PM AUTOMATIC LINE SET UP MECHANIC Coleman Plata MD PATHOLOGY/CYTOLOGY [facility] INTERNAL ZIP [address] [place] [id number] from Last 3 Months or Most Recently [...] 8:49 PM 03/19/2011 7:03 PM Care Teams Crusher Wet Ground Mica Relationship Specialty Start Date End Date Barbara Valentin DO [address] [place] [address] PCP - General Family Practice 11/15/22 Julio Ibrahim MD [address] [place] [id number] Surgery - Orthopedics 02/01/11 Chuy Doss MD [address] [place] [id number] Surgery - Vascular 02/01/11 Markel Strong MD [address] [place] [address] Provider Family Practice 08/08/20 Nikolai Ibarra MD [address] [facility] [address] [place] [address] Endocrinology 09/07/22 Suad Ng/ Medica CM Billet Examiner 07/14/17 [facility] Care Home Health Nurse 07/01/17 [facility] THERMAL ENGINEER Services Home Health Aide 07/14/17 [facility] Automobile Parker/ Ally Christianson [address] [place] [address] Billet Examiner 07/07/17
--- OUTSIDE RECORDS SUMMARY | 2024-01-01 07:19 | XMS_ITS | Clinical Summary ---
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
== END 2023-12-28 04:00 | disposition home or self-care (01) ==
LOC: AMB 01-01 07:18
PROVIDERS: PCP Family Medicine; Visit Provider Family Medicine
DX: R41.82 Altered mental status, unspecified (principal)
CPT/HCPCS: A0425; A0427

== ENCOUNTER 2023-12-28 04:39 | Emergency (ER) | payer OTHER, SELFPAY ==
[2023-12-28] VITALS (48 sets, daily range): BP systolic 139–209; BP diastolic 69–107; PULSE 63–83; RESP 20; TEMP 36.2; O2SAT 96–100
--- NOTE | 2023-12-28 04:46 | CRLHL7_ITS ---
For Patients: As a result of the Century Cures Act, medical imaging exams and procedure reports are released immediately into your electronic medical record. You may view this report before your referring provider. If you have questions, please contact your health care provider. INDICATION: AMS TECHNIQUE: Head CT without contrast. COMPARISON: CT head February 17, 2021. FINDINGS: CSF spaces: Mild generalized global parenchymal volume loss. Brain parenchyma and extra-axial spaces: There are nonspecific low attenuation white matter changes consistent with chronic microvascular disease. No sign of mass effect, hemorrhage, or midline shift. Skull base and calvarium: The visualized paranasal sinuses and mastoid air cells demonstrate no acute or significant findings. The visualized orbits are grossly unremarkable. No skull fractures. Carotid siphon atherosclerotic calcifications and intradural vertebral arteries. IMPRESSION: No evidence of acute intracranial abnormality on this unenhanced CT. Please note that all CT scans at this facility use dose modulation, iterative reconstruction, and/or weight-based dosing when appropriate to reduce radiation dose to as low as reasonably achievable. Dictated by Juan Neff MD @ 12/28/2023 6:22:32 AM (Electronically Signed)
--- NOTE | 2023-12-28 04:46 | CRLHL7_ITS ---
For Patients: As a result of the Cures Act, medical imaging exams and procedure reports are released immediately into your electronic medical record. You may view this report before your referring provider. If you have questions, please contact your health care provider. INDICATION: AMS TECHNIQUE: Chest 1 views. COMPARISON: Chest x-ray December 18, 2022. FINDINGS: Cardiovascular and mediastinum: Stable mild cardiomegaly. Lungs and pleural spaces: Low lung volumes. No focal consolidation. No lana pulmonary edema. No sign of pleural effusion. No pneumothorax. Bones and soft tissues: Bilateral shoulder arthroplasties. IMPRESSION: Cardiomegaly with low lung volumes without evidence of acute cardiopulmonary process. Dictated by Juan Neff MD @ 12/28/2023 6:29:32 AM (Electronically Signed)
--- NOTE | 2023-12-28 04:54 | ED.GENADULT ---
HPI - General Adult General Chief complaint: Unspecified Complaint, Adult <Nisha Peraza MD - Last Filed: 12/28/23 23:59> Stated complaint: Hypoglycemia <Nisha Peraza MD - Last Filed: 12/28/23 23:59> Time Seen by Provider: 12/28/23 04:41 <Nisha Peraza MD - Last Filed: 12/28/23 23:59> Source: EMS <Nisha Peraza MD - Last Filed: 12/28/23 23:59> Mode of arrival: EMS <Nisha Peraza MD - Last Filed: 12/28/23 23:59> Limitations: altered mental status <Nisha Peraza MD - Last Filed: 12/28/23 23:59> History of Present Illness HPI narrative: 63-year-old female that I care for multiple previous times presents to the emergency department with lethargy and low blood sugar. Family heard her fall out of her chair in the living room checked her blood sugar, noted to be 35. Glucagon given by family. EMS administered D10, blood sugar 55 upon arrival is up to 78 by the time of my assessment. Patient will open her eyes to me and nod yes or no for questions. She has an extensive past medical history including chronic pain disorder, severe obstructive sleep apnea, type 1 diabetes and multiple comorbidities related to this. Reported that she currently lives with her sister but has a home health nurse that visits. She nods in response to me asking if she remembers having low blood sugar. She denies any pain or recent illness. She quickly drifts back off to sleep but will then reopen her eyes and make eye contact upon my request. Does not attempt to verbalize or adjust herself in bed. EMS reporting no additional pertinent history. Past medical history notable for COPD, type 1 diabetes, severe sleep apnea, multiple others. No recent hospitalizations noted. Medications reviewed notable for insulin, multiple cardiac medications, Lyrica, narcotics. She is a former smoker, no longer smoking. ROS is negative for patient but with her altered mental status, I would consider this not reliable. No additional ROS noted from EMS team <Nisha Peraza MD - Last Filed: 12/28/23 23:59> Related Data Home medications: Home Medications ?Medication ?Instructions ?Recorded ?Confirmed amlodipine 2.5 mg tablet 2.5 mg PO BID 10/11/22 12/28/23 atorvastatin 20 mg tablet 20 mg PO QPM 10/11/22 12/28/23 buprenorphine 5 mcg/hour weekly 1 patch transdermal Q7D 10/11/22 12/28/23 transdermal patch cetirizine 5 mg tablet 5 mg PO DAILY 10/11/22 12/28/23 cholecalciferol (vitamin D3) 50 50 mcg PO DAILY 10/11/22 12/28/23 mcg (2,000 unit) capsule duloxetine 60 mg capsule,delayed 60 mg PO DAILY 10/11/22 12/28/23 release losartan 25 mg tablet 12.5 mg PO DAILY 10/11/22 12/28/23 metoprolol succinate 25 mg 25 mg PO DAILY 10/11/22 12/28/23 tablet,extended release 24 hr omeprazole 20 mg capsule,delayed 20 mg PO DAILY 10/11/22 12/28/23 release oxycodone 5 mg tablet 5 mg PO BID PRN 10/11/22 12/28/23 polyethylene glycol 3350 17 17 g PO BID 10/11/22 12/28/23 gram/dose oral powder (Miralax) pregabalin 100 mg capsule 200 mg PO QAM 10/11/22 12/28/23 pregabalin 50 mg capsule 150 mg PO HS 10/11/22 12/28/23 sennosides 8.6 mg-docusate sodium 2 tab PO BID 10/11/22 12/28/23 50 mg tablet (Stool Softener-Stimulant Laxative) torsemide 20 mg tablet 40 mg PO DAILY 10/11/22 12/28/23 vitamin B12 2,500 mcg-folic acid 1 tab PO DAILY 10/11/22 12/28/23 400 mcg disintegrating tablet acetaminophen 650 mg 1,300 mg PO Q8H 12/19/22 12/28/23 tablet,extended release insulin glargine 100 unit/mL (3 15 unit subcut QPM 05/25/23 12/28/23 mL) subcutaneous pen (Lantus Solostar U-100 Insulin) levothyroxine 125 mcg tablet 125 mcg PO DAILY 05/25/23 12/28/23 Previous Rx's ?Medication ?Instructions ?Recorded insulin aspart U-100 100 unit/mL 8 unit (0.08 mL) subcut TIDWM #15 12/21/22 (3 mL) subcutaneous pen (Novolog mL FlexPen U-100 Insulin aspart) <Nisha Peraza MD - Last Filed: 12/28/23 23:59> Allergies/adverse reactions: Allergies Allergy/AdvReac Type Severity Reaction Status Date / Time No Known Drug Allergies Allergy Verified 12/28/23 04:49 <Nisha Peraza MD - Last Filed: 12/28/23 23:59> [facility] Medical History: Medical History Hypertension ?I10 - Essential (primary) hypertension (ICD-10) Diabetes type I ?E10.9 - Type 1 diabetes mellitus without complications (ICD-10) Hyperosmolar syndrome ?E87.0 - Hyperosmolality and hypernatremia (ICD-10) Sleep apnea ?G47.30 - Sleep apnea, unspecified (ICD-10) Ulnar neuropathy ?G56.20 - Lesion of ulnar nerve, unspecified upper limb (ICD-10) Hyperlipidemia ?E78.5 - Hyperlipidemia, unspecified (ICD-10) Morbid obesity ?E66.01 - Morbid (severe) obesity due to excess calories (ICD-10) GERD (gastroesophageal reflux disease) ?K21.9 - Gastro-esophageal reflux disease without esophagitis (ICD-10) 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 diabetic neuropathic arthropathy (ICD-10) Depressive disorder ?F32.A - Depression, unspecified (ICD-10) COPD (chronic obstructive pulmonary disease) ?J44.9 - Chronic obstructive pulmonary disease, unspecified (ICD-10) Congestive heart failure (CHF) ?I50.9 - Heart failure, unspecified (ICD-10) Chronic pain syndrome ?G89.4 - Chronic pain syndrome (ICD-10) Chronic kidney disease, stage 1 ?N18.1 - Chronic kidney disease, stage 1 (ICD-10) Carpal tunnel syndrome ?G56.00 - Carpal tunnel syndrome, unspecified upper limb (ICD-10) Diabetic retinopathy ?E11.319 - Type 2 diabetes mellitus with unspecified diabetic retinopathy without macular edema (ICD-10) Anemia of other chronic disease ?D63.8 - Anemia in other chronic diseases classified elsewhere (ICD-10) Acute respiratory failure ?J96.00 - Acute respiratory failure, unspecified whether with hypoxia or hypercapnia (ICD-10) <Nisha Peraza MD - Last Filed: 12/28/23 23:59> Surgical History: Surgical History History of thyroidectomy ?E89.0 - Postprocedural hypothyroidism (ICD-10) History of hip replacement ?Z96.649 - Presence of unspecified artificial hip joint (ICD-10) History of gastric bypass ?Z98.84 - Bariatric surgery status (ICD-10) History of section ?Z98.891 - History of uterine scar from previous surgery (ICD-10) Hx of cataract removal with insertion of prosthetic lens ?Z98.49 - Cataract extraction status, unspecified eye (ICD-10) ?Z96.1 - Presence of intraocular lens (ICD-10) History of carpal tunnel release ?Z98.890 - Other specified postprocedural states (ICD-10) History of knee replacement procedure of right knee ?Z96.651 - Presence of right artificial knee joint (ICD-10) <Nisha Peraza MD - Last Filed: 12/28/23 23:59> Social History: Social History Narrative: Full Code. Lives with son Mitul, who would be medical decision maker if needed. What is your current living situation?: I presently have a place to live Problems where you live: no known problems Problems where you live details: no In the past 12 months, utilities in danger of being shut off: declined to answer In past 12 months, lack of transportation kept you from medical appts, meetings, work, or getting things needed for daily living: no In the past 12 mos, have been you worried that your food would run out before you had money to buy more?: declined to answer In the past 12 mos, the food you bought just didn't last and you didn't have money to buy more?: declined to answer Smoking Status: Never smoker Do you use any of these nicotine containing products: None Second hand tobacco smoke exposure: No How often do you have a drink containing alcohol: never AUDIT-C Alcohol total score: 0 Non-prescribed substance use: denies use How often does anyone, including family, friends and others, physically hurt you: never How often does anyone, including family, friends and others, insult or talk down to you: never How often does anyone, including family, friends and others, threaten you with harm: never How often does anyone, including family, friends and others, scream or curse at you: never <Nisha Peraza MD - Last Filed: 12/28/23 23:59> Exam Const: Vital Signs, click to edit/add: Vital Signs - 24 hr 12/28/23 04:49 12/28/23 05:44 12/28/23 05:45 Temperature 97.1 F L Pulse Rate 65 64 Pulse Rate [Pulse Oximeter] 73 Respiratory Rate 20 Blood Pressure Blood Pressure [Ri ght Upper Arm] 183/71 H Pulse Oximetry 100 [facility] 12/28/23 05:47 12/28/23 05:48 12/28/23 06:00 Temperature Pulse Rate 64 64 70 Pulse Rate [Pulse Oximeter] Respiratory Rate Blood Pressure 139/77 Blood Pressure [Ri ght Upper Arm] Pulse Oximetry 100 100 100 Oxygen Delivery [facility] 12/28/23 06:02 12/28/23 06:03 12/28/23 06:15 Temperature Pulse Rate 69 66 67 Pulse Rate [Pulse Oximeter] Respiratory Rate Blood Pressure 166/84 H Blood Pressure [Ri ght Upper Arm] Pulse Oximetry 100 100 [facility] 12/28/23 06:16 12/28/23 06:30 12/28/23 06:32 Temperature Pulse Rate 67 64 63 Pulse Rate [Pulse Oximeter] Respiratory Rate Blood Pressure 153/76 H 150/85 H Blood Pressure [Ri ght Upper Arm] Pulse Oximetry 100 100 [facility] 12/28/23 06:45 12/28/23 06:47 12/28/23 06:48 Temperature Pulse Rate 68 67 67 Pulse Rate [Pulse Oximeter] Respiratory Rate Blood Pressure 166/78 H Blood Pressure [Ri ght Upper Arm] Pulse Oximetry 100 100 100 Oxygen Delivery [facility] 12/28/23 07:00 12/28/23 07:01 12/28/23 07:15 Temperature Pulse Rate 67 67 69 Pulse Rate [Pulse Oximeter] Respiratory Rate Blood Pressure 189/80 H Blood Pressure [Ri ght Upper Arm] Pulse Oximetry 100 100 100 Oxygen Delivery [facility] 12/28/23 07:17 12/28/23 07:30 12/28/23 07:32 Temperature Pulse Rate 68 69 67 Pulse Rate [Pulse Oximeter] Respiratory Rate Blood Pressure 170/70 H 187/100 H Blood Pressure [Ri ght Upper Arm] Pulse Oximetry 100 100 100 Oxygen Delivery [facility] 12/28/23 07:45 12/28/23 07:47 12/28/23 08:00 Temperature Pulse Rate 68 67 69 Pulse Rate [Pulse Oximeter] Respiratory Rate Blood Pressure 168/90 H Blood Pressure [Ri ght Upper Arm] Pulse Oximetry 100 100 100 Oxygen Delivery [facility] 12/28/23 08:02 12/28/23 08:15 12/28/23 08:17 Temperature Pulse Rate 70 73 74 Pulse Rate [Pulse Oximeter] Respiratory Rate Blood Pressure 180/106 H 167/100 H Blood Pressure [Ri ght Upper Arm] Pulse Oximetry 100 100 100 Oxygen Delivery [facility] 12/28/23 08:38 12/28/23 08:39 12/28/23 08:40 Temperature Pulse Rate 81 83 81 Pulse Rate [Pulse Oximeter] Respiratory Rate Blood Pressure 185/89 H Blood Pressure [Ri ght Upper Arm] Pulse Oximetry 99 100 100 Oxygen Delivery [facility] 12/28/23 08:45 12/28/23 08:46 12/28/23 08:51 Temperature Pulse Rate 78 77 71 Pulse Rate [Pulse Oximeter] Respiratory Rate Blood Pressure 192/92 H 174/96 H Blood Pressure [Ri ght Upper Arm] Pulse Oximetry 100 99 99 Oxygen Delivery [facility] 12/28/23 09:00 12/28/23 09:01 12/28/23 09:15 Temperature Pulse Rate 72 71 66 Pulse Rate [Pulse Oximeter] Respiratory Rate Blood Pressure 158/107 H Blood Pressure [Ri ght Upper Arm] Pulse Oximetry 99 97 96 Oxygen Delivery [facility] 12/28/23 09:21 12/28/23 09:36 12/28/23 09:42 Temperature Pulse Rate 65 75 73 Pulse Rate [Pulse Oximeter] Respiratory Rate Blood Pressure 139/69 209/92 H Blood Pressure [Ri ght Upper Arm] Pulse Oximetry 96 96 99 Oxygen Delivery [facility] 12/28/23 09:45 12/28/23 09:47 12/28/23 10:00 Temperature Pulse Rate 70 69 73 Pulse Rate [Pulse Oximeter] Respiratory Rate Blood Pressure 181/82 H Blood Pressure [Ri ght Upper Arm] Pulse Oximetry 98 98 96 Oxygen Delivery [facility] 12/28/23 10:02 12/28/23 10:15 12/28/23 10:21 Temperature Pulse Rate 68 67 67 Pulse Rate [Pulse Oximeter] Respiratory Rate Blood Pressure 170/84 H 168/69 H Blood Pressure [Ri ght Upper Arm] Pulse Oximetry 97 96 97 Oxygen Delivery [facility] 12/28/23 10:30 12/28/23 10:41 12/28/23 10:45 Temperature Pulse Rate 67 72 70 Pulse Rate [Pulse Oximeter] Respiratory Rate Blood Pressure 166/85 H Blood Pressure [Ri ght Upper Arm] Pulse Oximetry 96 96 97 Oxygen Delivery Me [facility] <Nisha Peraza MD - Last Filed: 12/28/23 23:59> Vital Signs, click to edit/add: Vital Signs - 24 hr 12/28/23 04:49 12/28/23 05:44 12/28/23 05:45 Temperature 97.1 F L Pulse Rate 65 64 Pulse Rate [Pulse Oximeter] 73 Respiratory Rate 20 Blood Pressure Blood Pressure [Ri ght Upper Arm] 183/71 H Pulse Oximetry 100 100 100 Oxygen Delivery [facility] Room Air 12/28/23 05:47 12/28/23 05:48 12/28/23 06:00 Temperature Pulse Rate 64 64 70 Pulse Rate [Pulse Oximeter] Respiratory Rate Blood Pressure 139/77 Blood Pressure [Ri ght Upper Arm] Pulse Oximetry 100 100 100 Oxygen Delivery [facility] 12/28/23 06:02 12/28/23 06:03 12/28/23 06:15 Temperature Pulse Rate 69 66 67 Pulse Rate [Pulse Oximeter] Respiratory Rate Blood Pressure 166/84 H Blood Pressure [Ri ght Upper Arm] Pulse Oximetry 100 100 100 Oxygen Delivery [facility] 12/28/23 06:16 12/28/23 06:30 12/28/23 06:32 Temperature Pulse Rate 67 64 63 Pulse Rate [Pulse Oximeter] Respiratory Rate Blood Pressure 153/76 H 150/85 H Blood Pressure [Ri ght Upper Arm] Pulse Oximetry 100 100 100 Oxygen Delivery [facility] 12/28/23 06:45 12/28/23 06:47 12/28/23 06:48 Temperature Pulse Rate 68 67 67 Pulse Rate [Pulse Oximeter] Respiratory Rate Blood Pressure 166/78 H Blood Pressure [Ri ght Upper Arm] Pulse Oximetry 100 100 100 Oxygen Delivery [facility] 12/28/23 07:00 12/28/23 07:01 12/28/23 07:15 Temperature Pulse Rate 67 67 69 Pulse Rate [Pulse Oximeter] Respiratory Rate Blood Pressure 189/80 H Blood Pressure [Ri ght Upper Arm] Pulse Oximetry 100 100 100 Oxygen Delivery [facility] 12/28/23 07:17 12/28/23 07:30 12/28/23 07:32 Temperature Pulse Rate 68 69 67 Pulse Rate [Pulse Oximeter] Respiratory Rate Blood Pressure 170/70 H 187/100 H Blood Pressure [Ri ght Upper Arm] Pulse Oximetry 100 100 [facility] 12/28/23 07:45 12/28/23 07:47 12/28/23 08:00 Temperature Pulse Rate 68 67 69 Pulse Rate [Pulse Oximeter] Respiratory Rate Blood Pressure 168/90 H Blood Pressure [Ri ght Upper Arm] Pulse Oximetry 100 100 [facility] 12/28/23 08:02 12/28/23 08:15 12/28/23 08:17 Temperature Pulse Rate 70 73 74 Pulse Rate [Pulse Oximeter] Respiratory Rate Blood Pressure 180/106 H 167/100 H Blood Pressure [Ri ght Upper Arm] Pulse Oximetry 100 100 100 Oxygen Delivery [facility] 12/28/23 08:38 12/28/23 08:39 12/28/23 08:40 Temperature Pulse Rate 81 83 81 Pulse Rate [Pulse Oximeter] Respiratory Rate Blood Pressure 185/89 H Blood Pressure [Ri ght Upper Arm] Pulse Oximetry 99 100 100 Oxygen Delivery [facility] 12/28/23 08:45 12/28/23 08:46 12/28/23 08:51 Temperature Pulse Rate 78 77 71 Pulse Rate [Pulse Oximeter] Respiratory Rate Blood Pressure 192/92 H 174/96 H Blood Pressure [Ri ght Upper Arm] Pulse Oximetry 100 99 99 Oxygen Delivery [facility] 12/28/23 09:00 06/26/24 09:01 12/28/23 09:15 Temperature Pulse Rate 72 71 66 Pulse Rate [Pulse Oximeter] Respiratory Rate Blood Pressure 158/107 H Blood Pressure [Ri ght Upper Arm] Pulse Oximetry 99 97 96 Oxygen Delivery [facility] 12/28/23 09:21 12/28/23 09:36 12/28/23 09:42 Temperature Pulse Rate 65 75 73 Pulse Rate [Pulse Oximeter] Respiratory Rate Blood Pressure 139/69 209/92 H Blood Pressure [Ri ght Upper Arm] Pulse Oximetry 96 96 99 Oxygen Delivery [facility] 12/28/23 09:45 12/28/23 09:47 12/28/23 10:00 Temperature Pulse Rate 70 69 73 Pulse Rate [Pulse Oximeter] Respiratory Rate Blood Pressure 181/82 H Blood Pressure [Ri ght Upper Arm] Pulse Oximetry 98 98 96 Oxygen Delivery [facility] 12/28/23 10:02 12/28/23 10:15 12/28/23 10:21 Temperature Pulse Rate 68 67 67 Pulse Rate [Pulse Oximeter] Respiratory Rate Blood Pressure 170/84 H 168/69 H Blood Pressure [Ri ght Upper Arm] Pulse Oximetry 97 96 97 Oxygen Delivery [facility] 12/28/23 10:30 12/28/23 10:41 12/28/23 10:45 Temperature Pulse Rate 67 72 70 Pulse Rate [Pulse Oximeter] Respiratory Rate Blood Pressure 166/85 H Blood Pressure [Ri ght Upper Arm] Pulse Oximetry 96 96 97 Oxygen Delivery Me [facility] <Brandt Curran MD - Last Filed: 12/28/23 10:48> Documenting provider has reviewed patient's vital signs: yes <Nisha Peraza MD - Last Filed: 12/28/23 23:59> Other: Decreased respiratory rate with <Nisha Peraza MD - Last Filed: 12/28/23 23:59> Course Course ED Course: 63-year-old female with terrible sleep apnea presenting with hypoglycemia and altered mental status. Having seen Kati in similar presentation multiple times, I am not surprised that with correction of her blood sugar, her mental status has not returned to normal. Often when she falls asleep in the chair, shows no without her CPAP and then she gets into trouble with CO2 retention. Her initial VBG is back and it does confirm my suspicion that she also has an elevated CO2. I would recommend that we go ahead and put her on BiPAP with only about 30% FiO2 to help pull off some of that CO2. Will continue to await the remainder of labs to see if there are other metabolic derangements. Certainly with her age a number of medical comorbidities, she may not bounce back from hypoglycemia as fast as a healthy or person and may require further monitoring and time. <Nisha Peraza MD - Last Filed: 12/28/23 23:59> Reevaluation(s) Time of Reevaluation #1: 07:45 <Nisha Peraza MD - Last Filed: 12/28/23 23:59> Reevaluation #1: Kati reports that she is feeling quite a bit better but is not quite ready to wean off of the BiPAP. We reviewed findings from today and my suspicion that falling asleep in the recliner without her CPAP combined with her low blood sugar caused her altered mental status. Things did not quickly returned to normal after correction of her blood sugar due to retention of carbon dioxide from her sleep apnea which of course was worsened by her low blood sugars. Stressed the importance of using her CPAP when she sleeps. I will hand over care to my in coming day shift partner. I would like to try to wean her off of the BiPAP in an hour or so and see if she can eat. If her weakness has improved, she could likely be discharged home but if not, consider additional workup. <Nisha Peraza MD - Last Filed: 12/28/23 23:59> Vital Signs Vital signs: Initial Vital Signs Temperature 97.1 F L 12/28/23 04:49 Temperature Source Temporal Artery Scan 12/28/23 04:49 Pulse Rate 73 12/28/23 04:49 Pulse Rhythm Regular 12/28/23 04:49 Pulse Strength 3+ Normal 12/28/23 04:49 Respiratory Rate 20 12/28/23 04:49 Blood Pressure 183/71 H 12/28/23 04:49 Blood Pressure Mean 108 H 12/28/23 04:49 Blood Pressure Position Supine 12/28/23 04:49 Pulse Oximetry 100 12/28/23 04:49 Oxygen Delivery Method Room Air 12/28/23 04:49 Vital Signs Temperature 97.1 F L 12/28/23 04:49 Pulse Rate 73 12/28/23 04:49 Respiratory Rate 20 12/28/23 04:49 Blood Pressure 183/71 H 12/28/23 04:49 Pulse Oximetry 100 12/28/23 04:49 Oxygen Delivery Method Room Air 12/28/23 04:49 Temperature 97.1 F L 12/28/23 04:49 Pulse Rate 70 12/28/23 10:45 Respiratory Rate 20 12/28/23 04:49 Blood Pressure 166/85 H 12/28/23 10:41 Pulse Oximetry 97 12/28/23 10:45 Oxygen Delivery Method Room Air 12/28/23 04:49 <Nisha Peraza MD - Last Filed: 12/28/23 23:59> Initial Vital Signs Temperature 97.1 F L 12/28/23 04:49 Temperature Source Temporal Artery Scan 12/28/23 04:49 Pulse Rate 73 12/28/23 04:49 Pulse Rhythm Regular 12/28/23 04:49 Pulse Strength 3+ Normal 12/28/23 04:49 Respiratory Rate 20 12/28/23 04:49 Blood Pressure 183/71 H 12/28/23 04:49 Blood Pressure Mean 108 H 12/28/23 04:49 Blood Pressure Position Supine 12/28/23 04:49 Pulse Oximetry 100 12/28/23 04:49 Oxygen Delivery Method Room Air 12/28/23 04:49 Vital Signs Temperature 97.1 F L 12/28/23 04:49 Pulse Rate 73 12/28/23 04:49 Respiratory Rate 20 12/28/23 04:49 Blood Pressure 183/71 H 12/28/23 04:49 Pulse Oximetry 100 12/28/23 04:49 Oxygen Delivery Method Room Air 12/28/23 04:49 Temperature 97.1 F L 12/28/23 04:49 Pulse Rate 70 12/28/23 10:45 Respiratory Rate 20 12/28/23 04:49 Blood Pressure 166/85 H 12/28/23 10:41 Pulse Oximetry 97 12/28/23 10:45 Oxygen Delivery Method Room Air 12/28/23 04:49 <Brandt Curran MD - Last Filed: 12/28/23 10:48> Medications Administered Medications: Discontinued Medications Generic Name Dose Route Start Last Admin Trade Name Freq PRN Reason Stop Dose Admin Dextrose/Lactated Ringer's 1,000 mls @ 125 mls/hr 12/28/23 04:46 12/28/23 09:15 5 % Dextrose In [place] Ringer's IV 125 mls/hr .Q8H BRET Infusion <Nisha Peraza MD - Last Filed: 12/28/23 23:59> Discontinued Medications Generic Name Dose Route Start Last Admin Trade Name Freq PRN Reason Stop Dose Admin Dextrose/Lactated Ringer's 1,000 mls @ 125 mls/hr 12/28/23 04:46 12/28/23 09:15 5 % Dextrose In [place] Ringer's IV 125 mls/hr .Q8H BRET Infusion <Brandt Curran MD - Last Filed: 12/28/23 10:48> Medical Decision Making MDM Narrative Medical decision making narrative: This patient is improved with treatments received here and has been sleeping comfortably with normal vital signs. She feels okay to return home. <Brandt Curran MD - Last Filed: 12/28/23 10:48> Lab Data Lab results reviewed: Yes I reviewed the patient's lab results <Nisha Peraza MD - Last Filed: 12/28/23 23:59> Lab results narrative: CO2 elevated consistent with CO2 retention. No significant leukocytosis, hemoglobin stable. Lactate mildly elevated but no fever or other signs of sepsis. <Nisha Peraza MD - Last Filed: 12/28/23 23:59> Labs: Lab Results 12/28/23 12/28/23 12/28/23 Range/Units 04:55 05:00 08:00 WBC 7.19 (4.50-11.00) K/uL RBC 4.24 (4.00-5.20) m/uL Hgb 12.2 (12.0-16.0) gm/dL Hct 39.7 (33.0-51.0) % MCV 94 (80-100) fL MCH 29 (26-34) pg MCHC 31 L (32-36) gm/dL RDW Coeff of Stefan 14.3 (11.5-15.5) % Plt Count 262 (140-440) K/uL Neut % (Auto) 82.6 H (42.0-72.0) % Lymph % (Auto) 10.2 L (20-44) % Wilson % (Auto) 6.1 (0.0-11.0) % Eos % (Auto) 0.7 (0.0-7.0) % Baso % (Auto) 0.1 (0.0-3.0) % Neut # (Auto) 5.90 (1.7-7.0) K/uL Lymph # (Auto) 0.70 L (0.90-2.90) K/uL Wilson # (Auto) 0.40 (0.00-0.90) K/UL Eos # (Auto) 0.05 (0.00-0.50) K/uL Baso # (Auto) 0.01 (0.00-0.30) K/uL Abs Immat Gran (auto) 0.02 (0.00-0.30) K/uL Imm/Tot Granulo (auto) 0.3 % VBG pH 7.293 L (7.32-7.43) VBG pCO2 65 H* (40-50) mmHG VBG pO2 32.0 (25-47) mmHG VBG HCO3 31 H (21-28) mmol/L Sodium 141 (135-149) mmol/L Potassium 3.8 (3.6-5.1) mmol/L Chloride 100 (96-114) mmol/L Carbon Dioxide 31 (20-32) mmol/L Anion Gap 10 (7-15) mEq/L BUN 60 H (7-30) mg/dL Creatinine 2.5 H (0.5-1.5) mg/dL Estimated GFR 21 ml/min Glucose 192 H (60-115) mg/dL Lactate 2.1 H (0.5-1.9) mmol/L Calcium 9.2 (8.4-10.6) mg/dL Total Bilirubin 0.4 (0.1-1.5) mg/dL AST 55 H (12-35) U/L ALT 50 H (4-35) U/L Alkaline Phosphatase 118 (40-150) U/L C-Reactive Protein 2.3 H (0.5-1.0) mg/dL NT-Pro-B Natriuret Pep 383 pg/mL Total Protein 8.4 H (6.0-8.3) g/dL Albumin 4.5 (3.3-5.0) g/dL Procalcitonin 0.16 (<0.50) ng/mL Urine Color (Yellow) Urine Appearance (Clear) Urine pH (5.0-8.5) Ur Specific [place] (1.000-1.030) Urine Protein (Negative) Urine Glucose (UA) (Negative) Urine Ketones (Negative) Urine Blood (Negative) Urine Nitrite (Negative) Urine Bilirubin (Negative) Urine Urobilinogen (0.2-1.0) Ur Leukocyte Esterase (Negative) Urine RBC (0-2) Urine WBC (0-5) Urine WBC Clumps (None) Ur Squamous Epith Cells (None-Few) Urine Bacteria (None) POC Glucose 252 H (60-115) mg/dl POC Troponin I 0.01 (0.01-0.04) ng/ml 12/28/23 12/28/23 Range/Units 09:36 10:30 WBC (4.50-11.00) K/uL RBC (4.00-5.20) m/uL Hgb (12.0-16.0) gm/dL Hct (33.0-51.0) % MCV (80-100) fL MCH (26-34) pg MCHC (32-36) gm/dL RDW Coeff of Stefan (11.5-15.5) % Plt Count (140-440) K/uL Neut % (Auto) (42.0-72.0) % Lymph % (Auto) (20-44) % Wilson % (Auto) (0.0-11.0) % Eos % (Auto) (0.0-7.0) % Baso % (Auto) (0.0-3.0) % Neut # (Auto) (1.7-7.0) K/uL Lymph # (Auto) (0.90-2.90) K/uL Wilson # (Auto) (0.00-0.90) K/UL Eos # (Auto) (0.00-0.50) K/uL Baso # (Auto) (0.00-0.30) K/uL Abs Immat Gran (auto) (0.00-0.30) K/uL Imm/Tot Granulo (auto) % VBG pH (7.32-7.43) VBG pCO2 (40-50) mmHG VBG pO2 (25-47) mmHG VBG HCO3 (21-28) mmol/L Sodium (135-149) mmol/L Potassium (3.6-5.1) mmol/L Chloride (96-114) mmol/L Carbon Dioxide (20-32) mmol/L Anion Gap (7-15) mEq/L BUN (7-30) mg/dL Creatinine (0.5-1.5) mg/dL Estimated GFR ml/min Glucose (60-115) mg/dL Lactate (0.5-1.9) mmol/L Calcium (8.4-10.6) mg/dL Total Bilirubin (0.1-1.5) mg/dL AST (12-35) U/L ALT (4-35) U/L Alkaline Phosphatase (40-150) U/L C-Reactive Protein (0.5-1.0) mg/dL NT-Pro-B Natriuret Pep pg/mL Total Protein (6.0-8.3) g/dL Albumin (3.3-5.0) g/dL Procalcitonin (<0.50) ng/mL Urine Color Yellow (Yellow) Urine Appearance Turbid A (Clear) Urine pH 5.5 (5.0-8.5) Ur Specific [place] 1.015 (1.000-1.030) Urine Protein 2+ A (Negative) Urine Glucose (UA) 2+ A (Negative) Urine Ketones Negative (Negative) Urine Blood 2+ A (Negative) Urine Nitrite Negative (Negative) Urine Bilirubin Negative (Negative) Urine Urobilinogen 0.2 (0.2-1.0) Ur Leukocyte Esterase 3+ A (Negative) Urine RBC 10-25 A (0-2) Urine WBC >100 A (0-5) Urine WBC Clumps None (None) Ur Squamous Epith Cells Few (None-Few) Urine Bacteria Many A (None) POC Glucose 216 H (60-115) mg/dl POC Troponin I (0.01-0.04) ng/ml <Nisha Peraza MD - Last Filed: 12/28/23 23:59> Lab Results 12/28/23 12/28/23 12/28/23 Range/Units 04:55 05:00 08:00 WBC 7.19 (4.50-11.00) K/uL RBC 4.24 (4.00-5.20) m/uL Hgb 12.2 (12.0-16.0) gm/dL Hct 39.7 (33.0-51.0) % MCV 94 (80-100) fL MCH 29 (26-34) pg MCHC 31 L (32-36) gm/dL RDW Coeff of Stefan 14.3 (11.5-15.5) % Plt Count 262 (140-440) K/uL Neut % (Auto) 82.6 H (42.0-72.0) % Lymph % (Auto) 10.2 L (20-44) % Wilson % (Auto) 6.1 (0.0-11.0) % Eos % (Auto) 0.7 (0.0-7.0) % Baso % (Auto) 0.1 (0.0-3.0) % Neut # (Auto) 5.90 (1.7-7.0) K/uL Lymph # (Auto) 0.70 L (0.90-2.90) K/uL Wilson # (Auto) 0.40 (0.00-0.90) K/UL Eos # (Auto) 0.05 (0.00-0.50) K/uL Baso # (Auto) 0.01 (0.00-0.30) K/uL Abs Immat Gran (auto) 0.02 (0.00-0.30) K/uL Imm/Tot Granulo (auto) 0.3 % VBG pH 7.293 L (7.32-7.43) VBG pCO2 65 H* (40-50) mmHG VBG pO2 32.0 (25-47) mmHG VBG HCO3 31 H (21-28) mmol/L Sodium 141 (135-149) mmol/L Potassium 3.8 (3.6-5.1) mmol/L Chloride 100 (96-114) mmol/L Carbon Dioxide 31 (20-32) mmol/L Anion Gap 10 (7-15) mEq/L BUN 60 H (7-30) mg/dL Creatinine 2.5 H (0.5-1.5) mg/dL Estimated GFR 21 ml/min Glucose 192 H (60-115) mg/dL Lactate 2.1 H (0.5-1.9) mmol/L Calcium 9.2 (8.4-10.6) mg/dL Total Bilirubin 0.4 (0.1-1.5) mg/dL AST 55 H (12-35) U/L ALT 50 H (4-35) U/L Alkaline Phosphatase 118 (40-150) U/L C-Reactive Protein 2.3 H (0.5-1.0) mg/dL NT-Pro-B Natriuret Pep 383 pg/mL Total Protein 8.4 H (6.0-8.3) g/dL Albumin 4.5 (3.3-5.0) g/dL Procalcitonin 0.16 (<0.50) ng/mL Urine Color (Yellow) Urine Appearance (Clear) Urine pH (5.0-8.5) Ur Specific [place] (1.000-1.030) Urine Protein (Negative) Urine Glucose (UA) (Negative) Urine Ketones (Negative) Urine Blood (Negative) Urine Nitrite (Negative) Urine Bilirubin (Negative) Urine Urobilinogen (0.2-1.0) Ur Leukocyte Esterase (Negative) Urine RBC (0-2) Urine WBC (0-5) Urine WBC Clumps (None) Ur Squamous Epith Cells (None-Few) Urine Bacteria (None) POC Glucose 252 H (60-115) mg/dl POC Troponin I 0.01 (0.01-0.04) ng/ml 12/28/23 12/28/23 Range/Units 09:36 10:30 WBC (4.50-11.00) K/uL RBC (4.00-5.20) m/uL Hgb (12.0-16.0) gm/dL Hct (33.0-51.0) % MCV (80-100) fL MCH (26-34) pg MCHC (32-36) gm/dL RDW Coeff of Stefan (11.5-15.5) % Plt Count (140-440) K/uL Neut % (Auto) (42.0-72.0) % Lymph % (Auto) (20-44) % Wilson % (Auto) (0.0-11.0) % Eos % (Auto) (0.0-7.0) % Baso % (Auto) (0.0-3.0) % Neut # (Auto) (1.7-7.0) K/uL Lymph # (Auto) (0.90-2.90) K/uL Wilson # (Auto) (0.00-0.90) K/UL Eos # (Auto) (0.00-0.50) K/uL Baso # (Auto) (0.00-0.30) K/uL Abs Immat Gran (auto) (0.00-0.30) K/uL Imm/Tot Granulo (auto) % VBG pH (7.32-7.43) VBG pCO2 (40-50) mmHG VBG pO2 (25-47) mmHG VBG HCO3 (21-28) mmol/L Sodium (135-149) mmol/L Potassium (3.6-5.1) mmol/L Chloride (96-114) mmol/L Carbon Dioxide (20-32) mmol/L Anion Gap (7-15) mEq/L BUN (7-30) mg/dL Creatinine (0.5-1.5) mg/dL Estimated GFR ml/min Glucose (60-115) mg/dL Lactate (0.5-1.9) mmol/L Calcium (8.4-10.6) mg/dL Total Bilirubin (0.1-1.5) mg/dL AST (12-35) U/L ALT (4-35) U/L Alkaline Phosphatase (40-150) U/L C-Reactive Protein (0.5-1.0) mg/dL NT-Pro-B Natriuret Pep pg/mL Total Protein (6.0-8.3) g/dL Albumin (3.3-5.0) g/dL Procalcitonin (<0.50) ng/mL Urine Color Yellow (Yellow) Urine Appearance Turbid A (Clear) Urine pH 5.5 (5.0-8.5) Ur Specific [place] 1.015 (1.000-1.030) Urine Protein 2+ A (Negative) Urine Glucose (UA) 2+ A (Negative) Urine Ketones Negative (Negative) Urine Blood 2+ A (Negative) Urine Nitrite Negative (Negative) Urine Bilirubin Negative (Negative) Urine Urobilinogen 0.2 (0.2-1.0) Ur Leukocyte Esterase 3+ A (Negative) Urine RBC 10-25 A (0-2) Urine WBC >100 A (0-5) Urine WBC Clumps None (None) Ur Squamous Epith Cells Few (None-Few) Urine Bacteria Many A (None) POC Glucose 216 H (60-115) mg/dl POC Troponin I (0.01-0.04) ng/ml <Brandt Curran MD - Last Filed: 12/28/23 10:48> Imaging Data CT scan - head: Attestation: I have reviewed the pertinent imaging results. <Nisha Peraza MD - Last Filed: 12/28/23 23:59> My impression: Degenerative changes, stable from most recent CT. No acute findings. <Nisha Peraza MD - Last Filed: 12/28/23 23:59> Radiologist's impression: IMPRESSION: No evidence of acute intracranial abnormality on this unenhanced CT. <Nisha Peraza MD - Last Filed: 12/28/23 23:59> Chest x-ray: Attestation: I have reviewed the pertinent imaging results. <Nisha Peraza MD - Last Filed: 12/28/23 23:59> My impression: Pre similar to previous. Low lung volumes with enlarged heart of course amplified by PA technique. I do not see any effusions or infiltrates. <Nisha Peraza MD - Last Filed: 12/28/23 23:59> Radiologist's impression: IMPRESSION: Cardiomegaly with low lung volumes without evidence of acute cardiopulmonary process. <Nisha Peraza MD - Last Filed: 12/28/23 23:59> ECG Data Attestation: I personally reviewed and interpreted this ECG as follows: <Nisha Peraza MD - Last Filed: 12/28/23 23:59> Prior ECG tracings: available for review (Multiple prior similar is, no changes) <Nisha Peraza MD - Last Filed: 12/28/23 23:59> Interpretation: Normal sinus rhythm with rate of 69. No changes from multiple prior comparisons, most recent in May. Low voltage overall but no significant acute ST or T-wave abnormalities. Normal axis and interval <Nisha Peraza MD - Last Filed: 12/28/23 23:59> Discharge Plan Discharge Clinical Impression: Hypercarbia, Hypoglycemia, Acute delirium <Nisha Peraza MD - Last Filed: 12/28/23 23:59> Patient Disposition: Home w/ Parent or Adult <Nisha Peraza MD - Last Filed: 12/28/23 23:59> Condition: Improved <Nisha Peraza MD - Last Filed: 12/28/23 23:59> Additional Instructions: Continue current plans. Follow up with MD or return if worsening. <Nisha Peraza MD - Last Filed: 12/28/23 23:59> Prescriptions: No Action atorvastatin 20 mg tablet 20 mg PO QPM torsemide 20 mg tablet 40 mg PO DAILY cetirizine 5 mg tablet 5 mg PO DAILY sennosides-docusate sodium [Stool Softener-Stimulant Laxat] 8.6-50 mg tablet 2 tab PO BID losartan 25 mg tablet 12.5 mg PO DAILY omeprazole 20 mg capsule,delayed release(DR/EC) 20 mg PO DAILY metoprolol succinate 25 mg tablet extended release 24 hr 25 mg PO DAILY oxycodone 5 mg tablet 5 mg PO BID PRN duloxetine 60 mg capsule,delayed release(DR/EC) 60 mg PO DAILY pregabalin 50 mg capsule 150 mg PO HS pregabalin 100 mg capsule 200 mg PO QAM cholecalciferol (vitamin D3) 50 mcg (2,000 unit) capsule 50 mcg PO DAILY buprenorphine 5 mcg/hour patch weekly 1 patch transdermal Q7D polyethylene glycol 3350 [Miralax] 17 gram/dose powder 17 g PO BID amlodipine 2.5 mg tablet 2.5 mg PO BID vitamin [id number] acid 2,500-400 mcg tablet,disintegrating 1 tab PO DAILY levothyroxine 125 mcg tablet 125 mcg PO DAILY insulin glargine [Lantus Solostar U-100 Insulin] 100 unit/mL (3 mL) insulin pen 15 unit subcut QPM acetaminophen 650 mg tablet extended release 1,300 mg PO Q8H insulin aspart U-100 [Novolog FlexPen U-100 Insulin] 100 unit/mL (3 mL) Insulin Pen 8 unit subcut TIDWM Qty: 15 0RF <Nisha Peraza MD - Last Filed: 12/28/23 23:59> Follow Up/Referrals: Barbara Valentin, [Primary Care Provider] - <Nisha Preaza MD - Last Filed: 12/28/23 23:59> Stand Alone Forms: My[facility] Info Instructions <Nisha Peraza MD - Last Filed: 12/28/23 23:59>
[2023-12-28 05:14] LABS: HCO3 VBG 31 mmol/L (21-28); Lactate* 2.1 mmol/L (0.5-1.9); pH VBG 7.293 (7.32-7.43)
--- OUTSIDE RECORDS SUMMARY | 2023-12-28 05:15 | XMS_ITS | Encounter Summary ---
Author Organization [facility] Address [address] [place] [address] Care Team Providers Care Cvicu Rn Name Role Phone Barbara Valentin DO Primary Care Provider Kevin zepeda Reason for Visit * Reason Comments CKD New Patient * Nephrology Services (Urgent) - Closed Specialty Diagnoses / Procedures Referred By Contac t Referred To Contact Nephrology Diagnoses Chronic kidney disease stage 4 (HCC) Barbara Valentin DO [address] [place] [address] Elian Humphrey MD [address] [place] [address] Referral ID Status Reason Start Date Expiration Date Visits Re quested Visits Authorized [id number] Closed 09/22/2023 09/21/2024 1 1 Encounter Details Date Type Department Care Team (Latest Contact Info) Description 11/10/2023 3:30 PM EDT Office Visit [facility] [address] [place] [address] Gabriel Hicks MD [address] [place] [address] Chronic kidney disease, stage 4 [...] Hicks/RAFAEL Acosta Welcome to [facility] Although we are experts in the [...] in caring for renal patients. If your Traffic Director deems it appropriate, you will be scheduled [...] healthy, so we do have a Renal Roaster Helper to help you with this. We [...] let them know that you see a high school learning support teacher for your kidney disease. Ask that they contact your high school learning support teacher before this type of test is [...] Doctors, Advanced Practice Providers, nurses, and Renal Roaster Helper are here to provide you with the best renal care. We want you to feel free to call us when you have questions or concerns. To call the nurse at your high school learning support teacher's office, please see the address and telephone number listed on your After Visit Summary. Thank you, The Physicians and staff at [facility] UNDERSTANDING YOUR BLOOD PRESSURE & LAB [...] Mikayla Kuhn Date of : 1960 Chart: [id number] PCP: Barbara Valentin DO Referring Provider: Barbara [...] her close friend who also is her MAINTENANCE AIDE. No recent illnesses or hospitalizations. Tolerating her [...] 05/12/2024). Gabriel Hicks MD [facility] The following portions of the patient's chart [...] MG/DOSE powder Yuni Olea MD Inhale 1 [place] into affected nostril(s) each time if needed [...] disease documented in this encounter Care Teams Cvicu Rn Relationship Specialty Start Date End Date Barbara Valentin [place] [address] PCP - General Family Medicine 09/22/23 documented as of this encounter
--- OUTSIDE RECORDS SUMMARY | 2023-12-28 05:15 | XMS_ITS | Clinical Summary ---
Author Organization [facility] Address [place], [place] [address] Care Team Providers Care Radio Communications Mechanician Name Role Phone Julio Ibrahim MD Unavailable [phone] Chuy Doss MD Unavailable [phone] Markel Strong MD Unavailable [phone] Nikolai Ibarra MD Unavailable [phone] Barbara Valentin DO Primary Care Provider [phone] Allergies Active Allergy Reactions Criticality Noted Date [...] Each 03/02/20 21 Active blood sugar diagnostic (Flame Hardening Machine Setter Express Test Strip) stripIndications:U ncontrolled type 1 diabetes mellitus with hyperglycemia (HC) Test blood sugar 4 times dialy. E10.65 IDDM type I, uncontrolled - Test 4 times/day. Reason: High A1C 0 03/02/20 Active Blood Pressure Test Kit-Wrist kitIndications:Ess ential hypertension As directed. 1 Each 03/12/20 Active Chair LiftIndications:Ot her closed fracture of femur, unspecified laterality, unspecified portion of femur, sequela For home use. 1 Each 03/12/20 Active glucagon (Baqsimi) 3 mg/actuation nasal sprayIndications:p atient with diabetes mellitus at risk of hypoglycemia Inhale 1 [place] into affected nostril(s) each time if needed for Severe Hypoglycemia. Roll on side and call 911 after administration. 2 Each 12/25/19 Active Underpads padsIndications:Ur inary incontinence, unspecified type As directed. 300 Each 12/31/19 Active miscellaneous medical supply miscIndications:Ur inary incontinence, unspecified type As directed. Wipe aide 1 unit 12/31/19 Active Elevated Toilet Seat with ArmsIndications:Ur inary incontinence, unspecified type For home use. 1 Each 12/31/19 Active fluticasone (50 mcg per actuation) nasal solution (FLONASE)Indicatio ns:Nasal congestion Inhale 1 [place] into affected nostril(s) once daily. Inhale 1 [place] in the nostril(s) once daily. 16 g 01/12/20 Active Walker - 4 wheelsIndications: Chronic pain syndrome,Foot drop, bilateral,Osteoart hritis of both hips, unspecified osteoarthritis type,Spinal cord lesion (HC) With seat - For home use. Length of need: 99 1 Each 06/10/20 Active CPAPIndications: ovidio obstructive sleep apnea CPAP machine for [...] continuous glucose monitor READER (FreeStyle Elli 2 [place])Indications :Type 1 diabetes mellitus with other specified complication (HC) To be used to read blood sugars per deputy county attorney's directions. 1 Each 05/19/20 Active blood-glucose meterIndications:T ype 1 diabetes mellitus with other specified complication (HC) As directed. Dispense meter, test strips, lancets covered by pt ins. E10.9 IDDM type I - Test 4 times/day. Reason: Unstable diabetes 1 Each 11/16/20 23 Active blood sugar diagnostic (Blood Glucose Test) [...] be used to read blood sugars per deputy county attorney's directions. 6 Each 3 09/06/19 24 Active [...] for Wheezing. 180 mL 09/21/19 24 Active durable medical equipment (DME)Indications:S [...] 150MG 30 Capsule 5 10/12/19 24 Active FLUoxetine (PROZAC) 10 mg capsuleIndications [...] dates: 12/23/23-01/21/24 60 Tablet 12/20/19 24 Active insulin lispro (HumaLOG U-100 Insulin) 100 unit/mL injectionIndicatio ns:Diabetes mellitus type 1 with complications (HC) Inject 6-8u SubQ TID AC, 4u SubQ BID with snack depending on carb intake 10 mL 3 12/23/19 24 Active levothyroxine (SYNTHROID) 125 mcg tabletIndications: Hypothyroidism (acquired) Take 1 Tablet (125 mcg) by mouth once daily. 90 Tablet 12/23/19 24 Active Lantus Solostar U-100 Insulin 100 unit/mL (3 mL) penIndications:Typ e 1 diabetes mellitus with proliferative retinopathy, macular edema presence unspecified, unspecified laterality, unspecified proliferative retinopathy type (HC) Inject 16 units subcutaneous before bedtime. Product desired: LANTUS SOLOSTAR 9 mL 3 12/23/19 24 Active nystatin 100,000 unit/gram creamIndications:I ntertrigo Apply topically to affected area(s) two times daily for 7 days. 30 g 1 12/23/19 24 024 Active Insulin Jefferson, Disposable, (UltiCare Pen Needle) 32 gauge x [...] 024 Discontinued(Du plicate therapy (E-cancel not sent)) Lantus Solostar U-100 Insulin 100 unit/mL (3 mL) penIndications:Typ e 1 diabetes mellitus with proliferative retinopathy, macular edema presence unspecified, unspecified laterality, unspecified proliferative retinopathy type (HC) Inject 13 units subcutaneous before bedtime. Product desired: LANTUS SOLOSTAR 9 mL 3 09/21/19 24 024 Discontinued(*M edication adjustment) insulin lispro (HumaLOG U-100 Insulin) 100 unit/mL injectionIndicatio ns:Diabetes mellitus type 1 with complications (HC) Inject 6-8u SubQ TID AC, 4u SubQ BID with snack depending on carb intake 10 mL 3 11/01/19 24 024 Discontinued(*A vailability/For mulary change/Cost of medication) levothyroxine (SYNTHROID) 125 mcg tabletIndications: Hypothyroidism (acquired) TAKE 1 TABLET (125 MCG) BY MOUTH ONCE DAILY. 60 Tablet 11/16/19 24 024 Discontinued(Re order (E-cancel not sent)) oxyCODONE (ROXICODONE) 5 mg [...] substance agreement signed - 10/07/23 10/07/2023 Overview: [facility] [place] [place] .................... 10/07/2023 4:39 [...] hypoxia which led to extended stay in channel marketing coordinator care 07/2015- 05/2017 Hospitalized with ketoacidosis 06/2017 [...] post total right knee replacement 01/02/2015 06/10/2017 [facility] (current) use of anticoagulants 11/27/2013 12/28/2013 Anticoagulation [...] Encounters Date Type Department Care Team Description 12/27/2023 Refill [facility] [address] [place] [address] [address] Barbara Valentin, DO Refill Request (Pregabalin, Cetirizine) 12/23/2023 2:35 PM CDT Office Visit [facility] [address] [place] [address] [address] Sir Valentini Patricia, DO Diabetes (3 month check, labs); Rash (Rash under breasts? ) 12/23/2023 Travel 12/20/2023 Refill [facility] [address] [place] [address] Germanra Barbara Patricia, DO Refill Request (Humalog Kwikpen Insulin) 12/16/2023 Refill [facility] [address] [place] [address] Toshia Hooks NP Refill Request (Patient son called requesting oxycodone 5 mg at [facility].////) 12/15/2023 Telephone [facility] [address] [place] [address] Sir Valentini Patricia, DO Lab 12/08/2023 Refill [facility] [address] [place] [address] Germanra Barbara Patricia, DO Refill Request (Ulticare Pen Needle, Per-fit Underwear) 12/07/2023 Refill [facility] [address] [place] [address] SaúlqraSiri Patricia, DO Refill Request (Ulticare Pen Needle) 11/29/2023 Telephone [facility] [address] [place] [address] Sir Valentini Patricia, DO Referral 11/29/2023 Refill [facility] [address] [place] [address] Saúlqra Barbara Patricia, DO Refill Request (Cholecalciferol) 11/18/2023 Refill [facility] [address] [place] [address] Toshia Hooks NP Refill Request (oxycodone 5 mg at [facility]) 11/17/2023 Telephone [facility] [address] [place] [address] Barbara Valentin Patricia, DO Questions (Vish rod R.N. briefcase sewer with [facility] has some questions for pcp) 11/15/2023 Refill [facility] [address] [place] [address] Saúlqra Barbara Patricia, DO Refill Request (Levothyroxine, Fluoxetine) 11/11/2023 Telephone [facility] [address] [place] [address] Saúlqra Barbara Patricia, DO questions and concerns (vish jennings R.N. called in with questions and concerns for PCP) 10/26/2023 Telephone [facility] [address] [place] [address] Sir Valentini Patricia, DO Medication Management 10/18/2023 Refill [facility] [address] [place] [address] Toshia Hooks NP Refill Request 10/11/2023 Refill [facility] [address] [place] [address] Barbie Barbara Patricia, DO Refill Request (Cyanocobalamin, Pregabalin) 10/07/2023 4:00 PM CDT Office Visit [facility] [address] [place] [address] Toshia Hooks NP Follow Up; Foot Numbness (It is controlled with her care as it is. ); Depression (She feels like things are dark & needs to Put lights on. Just had Prozac initiated. Too soon to notice any difference. She asked her son Nikolai to let her know if he notices any difference. ); Lab 10/07/2023 Travel 10/06/2023 Telephone [facility] [address] [place] [address] Sir Valentini Patricia, DO Follow Up 09/27/2023 Refill [facility] [address] [place] [address] Harjit Green NP Refill Request (Buprenorphine) from Last 3 Months Immunizations Name Administration Dates Next Due AMB Influenza, IIV3 (Age >=3 years)(Flu Clinic Only) 05/17/2013,05/06/2010 COVID-19 vaccine (Telanetix-Bio NTech 30mcg/0.3mL) 12YO+ BIVALENT PF, MDV 04/28/2022 COVID-19 vaccine (Telanetix-Bio NTech 30mcg/0.3mL) PF, MDV 06/23/2021 Hepatitis B [...] Ectopic Multiple Livin g Live Births 1 07 04 Date Outcome GA Total Labor Labor/2nd/3rd Weight Sex Type Anes PTL Patricia A1 A5 Name Clin Term Last Filed Vital Signs Vital Sign Reading Time Taken Comments Blood Pressure 136/74 12/23/2023 3:00 PM CDT Pulse 77 12/23/2023 3:00 PM CDT Temperature 36.8 ??C (98.2 ??F) 08/24/2022 2:38 PM CS T Respiratory Rate 14 08/24/2022 2:38 PM GLOST KILN OPERATOR Oxygen Saturation 95% 12/23/2023 3:00 PM CDT Inhaled Oxygen Concentration - - Weight 96.7 kg (213 lb 3.2 oz) 02/28/2023 3:16 P M CDT Height 152.4 cm (5') 01/02/2019 8:57 PM CDT Body Mass Index 41.64 01/02/2019 8:57 PM CDT Plan of Treatment Upcoming Encounters Date Type Department Care Team (Late st Contact Info) Description 01/06/2024 4:00 PM CDT Office Visit [facility] [address] [place] [address] Toshia Hooks NP [address] [place] [address] 03/26/2024 3:25 PM CDT Office Visit [facility] [address] [place] [address] Barbara Valentin, DO [address] [place] [id number] Health Maintenance Due Date Last Done Comments [...] 03/18/2020, Additional history exists Fecal testing sDNA-FIT (Kulm guard) for age 45-75 11/10/2024 11/10/2021 Pneumococcal series for age 6-64 (3 of 3 - PPSV23 or PCV20) 2026 08/17/2016, 08/14/2014, 07/04/2005, Additional history exists Lipids for age 45-75 04/28/2027 04/28/2022, 08/17/2019, 08/31/2018, Additional history exists Tdap Completed 08/25/2010 HIV for age 15-65 Completed 07/21/2015 Hepatitis C screening for ag e 18-79 Completed 02/16/2018 Medical Devices Implanted Type Area Chart Changer Device Identifier Shelf Expiration Date Model / Serial / Lot [id number] 2x12mm [[id number]] Implanted:Qty: 1 on 08/08/2008 at [facility] Explanted:at [facility] (Quantity not on file) Stomach [employer] [id number]# / [id number] / Stem Compnt Primary 8mm Mini - [id number] Implanted:Qty: 1 on 03/17/2011 at [facility] Right: Shoulder BIOMET [id number]# / / [id number] Head Hum Bio-Mod [id number] - [id number] Implanted:Qty: 1 on 03/17/2011 at [facility] Right: Shoulder BIOMET [id number]# / / [id number] Base Glenoid Hybrid 4mm Sm - [id number] Implanted:Qty: 1 on 03/17/2011 at [facility] Right: Shoulder BIOMET [id number]# / / [id number] Cmnt 1/2 Dosehowmedica - [id number] Implanted:Qty: 1 on 03/17/2011 at [facility] Right: Shoulder [employer] [id number] 0# / / [id number] Post Glenoid Hybrid Regenerex - [id number] Implanted:Qty: 1 on 03/17/2011 at [facility] Right: Shoulder BIOMET [id number] # / / [id number] Head Humeral 44x15 Co Cr Biomodular - [id number] Implanted:Qty: 1 on 07/12/2012 at [facility] Left: Shoulder BIOMET [id number]# / / [id number] Shoulder Stem Implanted:Qty: 1 on 07/12/2012 at [facility] Left: Shoulder [id number] / / [id number] Description:SHOULDER STEM Cmnt Bone 1/2 Dosehowmedica - [id number] Implanted:Qty: 1 on 07/12/2012 at [facility] Left: Shoulder [employer] [id number] 0# / / [id number] Post Glenoid Hybrid Regenerex - [id number] Implanted:Qty: 1 on 07/12/2012 at [facility] Left: Shoulder BIOMET [id number] # / / [id number] Base Glenoid Hybrid 4mm Sm - [id number] Implanted:Qty: 1 on 07/12/2012 at [facility] Left: Shoulder BIOMET [id number]# / / [id number] Procedures Procedure Name Priority Date/Time Associated Diagnosis Comments HEMOGLOBIN A1C Routine 12/23/2023 2:53 PM CDT Type 1 diabetes mellitus with hyperglycemia (HC) COMPLIANCE DRUG ANALYSIS Routine 10/07/2023 4:00 PM CDT Encounter for therapeutic drug monitoring XR MAMMO BILAT SCREENING Routine 04/28/2022 2:04 [...] HIV 1/2 Add On 07/21/2015 9:40 AM GLOST KILN OPERATOR CRYSTAL MACHINING COORDINATOR THIN PREP PAP SCREEN IMAGED Routine 08/17/2012 4:02 PM GLOST KILN OPERATOR Screening for malignant neoplasm of the cervix from Last 3 Months or Most Recently Relevant to Health Maintenance Results * (ABNORMAL) HEMOGLOBIN A1C MONITORING (POCT) (12/23/2023 2:53 PM CDT) HEMOGLOBIN A1C MONITORING (POCT) 9.1(H) <=6.4 % 12/23/2023 3:04 PM CDT [facility] Blood BLOOD SPECIMEN / Unknown Venipuncture / Unknown 12/23/2023 2:53 PM CDT 12/23/2023 2:53 PM CDT Narrative [facility] - 12/23/2023 3:04 PM CDT ? (<=6.9%) ? Indicates good control ? (7.0% to 7.9%) ? Indicates fair control ? (>=8.0%) ? Indicates poor control ?? NOTE: ??These thresholds are guidelines and ?individual targets may vary. Falsely low levels may be seen with: Recent Transfusion, Recent Significant Blood Loss, Hemolytic Diseases, or Falsely elevated levels may be seen with: Untreated Anemias, Splenectomy ? Barbara Patricia Shaqra DO CHEMISTRY [facility] [address] [place] [id number], * (ABNORMAL) COMPLIANCE DRUG ANALYSIS (10/07/2023 4:00 PM CDT) 6-MONOACETYL MORPHINE NEG NEG ng/mL 10/12/2023 2:04 PM CDT [facility] AMPHETAMINE URINE NEG <=500 ng/mL 10/12/2023 2:04 PM CDT [facility] BARBITURATE URINE NEG <=200 ng/mL 10/12/2023 2:04 PM CDT [facility] BENZODIAZEPINE URINE NEG <=100 ng/mL 10/12/2023 2:04 PM CDT [facility] BUPRENORPHRINE URINE NEG <=5 ng/mL 10/02 2:04 PM CDT [facility] COCAINE METAB URINE NEG <=300 ng/mL 10/12/2023 2:04 PM CDT [facility] ETHYLGLUCURONIDE URINE NEG <=250 ng/mL 10/12/2023 2:04 PM CDT [facility] FENTANYL URINE NEG <=4 ng/mL 10/12/2023 2:04 PM [facility] METHADONE URINE NEG <=300 ng/mL 10/12/2023 2:04 PM CDT [facility] OPIATES URINE NEG <=300 ng/mL 10/12/2023 2:04 PM T [facility] OXYCODONE URINE POS(A) <=100 ng/mL 10/12/2023 2:04 PM T [facility] PROPOXYPHENE URINE NEG <=300 ng/mL 10/12/2023 2:04 PM T [facility] THC 50 URINE NEG <=50 ng/mL 10/12/2023 2:04 PM T [facility] TRAMADOL NEG <=200 ng/mL 10/12/2023 2:04 PM T [facility] PH URINE 5.2 5.0 - 7.0 10/12/2023 2:04 PM T [facility] CREAT UR 28 >=20 mg/dL 10/12/2023 2:04 PM T [facility] MASS SPECTROMETRY URINE See Below 10/12/2023 2:04 PM T [facility] Comment:Acetaminophen, Oxyco done and Oxycodone metabolites present. Urine URINE SPECIMEN / Unknown Non-Blood / Unknown 10/07/2023 4:00 PM CDT 10/08/2023 9:15 AM CDT Narrative [facility] - 10/12/2023 2:04 PM CDT Current [...] 4 times per day. blood sugar diagnostic (Flame Hardening Machine Setter Express Test Strip) strip, Test blood sugar [...] continuous glucose monitor READER (FreeStyle Elli 2 [place]), To be used to read blood sugars per deputy county attorney's directions. continuous glucose monitor SENSOR KIT (FreeStyle Elli 2 Sensor), As directed. To be used to read blood sugars per deputy county attorney's directions. CPAP, CPAP machine for home use [...] per actuation) nasal solution (FLONASE), Inhale 1 [place] into affected nostril(s) once daily. Inhale 1 [place] in the nostril(s) once daily. glucagon (Baqsimi) 3 mg/actuation nasal spray, Inhale 1 [place] into affected nostril(s) each time if needed [...] before meals. Product desired: HUMALOG KWIKPEN Insulin Jefferson, Disposable, (UltiCare Pen Needle) 32 gauge x 532, TO USE FOR INSULIN ADMINISTRATION FOUR TIMES [...] TABLET (25 MG) BY MOUTH ONCE DAILY. [email or web address] medical [facility] [place] directed. Wipe aide naloxone (NARCAN) 4 [...] Release to patient->Immediate Toshia Hooks NP URINE [facility] [address] [place] [address], [place] * XR MAMMO BILAT SCREENING (04/28/2022 2:04 [...] health care provider. XR MAMMO BILAT SCREENING [[id number]] CLINICAL HISTORY: ??This is an asymptomatic 61 y.o. patient. INDICATION FOR EXAM: Mammogram Screening. TECHNIQUE: CC & MLO views were obtained. ??This study was evaluated with the assistance of Computer-Aided Detection. COMPARISON FILM: Yes 03/02/18 [facility] FINDINGS: ??The breasts are extremely dense, which lowers the sensitivity of mammography. There are no dominant masses, suspicious micro calcifications or areas of architectural distortion. Shania Montiel MD MAMMO * LIPID PANEL W REFLEX MEASURED LDL (04/28/2022 1:44 PM CDT) CHOLESTEROL,TOTAL 139 100 - 199 mg/dL 04/30/2022 6:25 PM CDT [facility] TRIGLYCERIDES 141 <150 mg/dL 04/30/2022 6:25 PM CDT [facility] HDL CHOLESTEROL 42 >40 mg/dL 6:25 PM CDT [facility] NON-HDL CHOLESTEROL 97 <145 mg/dl 04/30/2022 6:25 PM CDT [facility] CHOL/HDL RATIO 3.31 <4.50 04/30/2022 6:25 PM CDT [facility] LDL CHOLESTEROL 69 <=130 mg/dL 04/30/2022 6:25 PM CDT [facility] VLDL CHOLESTEROL 28 <=30 mg/dL 04/30/2022 6:25 PM CDT [facility] PROVIDER ORDERED STATUS RANDOM 04/30/2022 6:25 PM CDT [facility] Blood BLOOD SPECIMEN / Unknown Venipuncture / Unknown 04/28/2022 1:44 PM CDT 04/28/2022 1:45 PM CDT Shania Montiel MD CHEMISTRY Performing Organization Address City/[facility]/ZIP Co de Phone Number [facility] [address] [place] [address], [place] * FECAL DNA (AKA COLOGUARD) (11/10/2021 1:00 PM CDT) Shania Montiel MD COMMUNICATION ORD * ANTI HCV [[id number]] (02/16/2018 4:20 PM CDT) HEPATITIS C ANTIBODY Non-React alex Non-React alex 02/17/2018 2:48 PM CDT [facility] Comment:Antibodies to HCV no t detected; does not exclude the possibility of exposure to HCV. Blood BLOOD SPECIMEN / Unknown Butterfly / Unknown 02/16/2018 4:20 PM CDT 02/16/2018 4:20 PM CDT Coleman Plata MD SEND OUTS [facility] [address] [place] [id number], [place] * HIV 1&2 TODAY (07/21/2015 9:40 AM GLOST KILN OPERATOR) HIV-1/HIV-2 ANTIBODY Non-Reacti ve Non-Reacti ve 07/21/2015 10:31 AM GLOST KILN OPERATOR [facility] Blood specimen (specimen) BLOOD SPECIMEN / Unknown Venipuncture / Unknown 07/21/2015 9:40 AM GLOST KILN OPERATOR 07/21/2015 9:47 AM GLOST KILN OPERATOR Narrative [facility] - 07/21/2015 10:31 AM GLOST KILN OPERATOR HIV-1 p24 and HIV-1/HIV-2 Ab not detected Kait Morales DO SEND OUTS [facility] [address] [place] [address], [place] * CRYSTAL MACHINING COORDINATOR THIN PREP PAP SCREEN IMAGED (08/17/2012 4:02 PM GLOST KILN OPERATOR) Pathologist [facility] CYTOLOGY CYTOPATHOLOGY REPORT [facility] Status: Final Status ?[id number] CLINICAL INFORMATION Last Date of LMP ? :07/03/2012 Last Pap Date ?:02/01/2011 Last Pap Result ?:NIL ABN Allen/Bx Past 5 YRS :None Hormone Usage ?:BCP/OCP/Patch/R ing Menstrual Status ? :Regular Periods Allen/Bx done today ? :No Additional Information :None [...] COLLECTED:08/17/12 ? ACCESSIONED: ??08/18/12 ?? SIGNED: ??08/21/12 [facility] PAP [place] CODE NIL [facility] Tissue specimen (specimen) (Cervical/Vagina l) 08/17/2012 4:02 PM GLOST KILN OPERATOR 08/17/2012 4:00 PM GLOST KILN OPERATOR Coleman Plata MD PATHOLOGY/CYTOLOGY [facility] INTERNAL ZIP [id number] [place] [id number] from Last 3 Months or Most Recently [...] 8:49 PM 03/19/2011 7:03 PM Care Teams Radio Communications Mechanician Relationship Specialty Start Date End Date Barbara Valentin DO [address] [place] [address] PCP - General Family Practice 11/15/22 Julio Ibrahim MD [address] [place] [address] Surgery - Orthopedics 02/01/11 Chuy Doss MD [address] [place] [address] Surgery - Vascular 02/01/11 Markel Strong MD [address] [place] [address] Provider Family Practice 08/08/20 Nikolai Ibarra MD [address] [place] [address] Endocrinology 09/07/22 Suad Ng/ [employer] CM Instrument Adjuster 07/14/17 [facility] Care Home Health Nurse 07/01/17 [facility] SECURITY PROGRAM MANAGER Services Home Health Aide 07/14/17 [facility] Hydraulic Rubbish Compactor Mechanic/ Ally Christianson [facility] [place] [address] Instrument Adjuster 07/07/17
--- OUTSIDE RECORDS SUMMARY | 2023-12-28 05:15 | XMS_ITS | Encounter Summary ---
Author Organization [facility] Address [address] [place] [address] Care Team Providers Care Collections Officer Name Role Phone Barbara Valentin Primary Care Provider Kevin zepeda Encounter Details Date Type Department Care Team (Late st Contact Info) Description 11/10/2023 Documentation Only [facility] SEG[facility]A [facility] [place] [address] Dave Hurst [address] [place] [address] Social History Tobacco Use Types [...] LAB BLOOD ORDERAB LES Performing Organization Address [facility] Co de Phone Number ALLINA * (ABNORMAL) [...] LAB BLOOD ORDERAB LES Performing Organization Address [facility]/ZIP Co de Phone Number ALLINA * (ABNORMAL) [...] LAB BLOOD ORDERAB LES Performing Organization Address [facility] Co de Phone Number ALLINA * (ABNORMAL) [...] LAB BLOOD ORDERAB LES Performing Organization Address City/[facility]/ZIP Co de Phone Number ALLINA documented in this encounter Visit Diagnoses Not on filedocumented in this encounter Care Teams Collections Officer Relationship Specialty Start Date End Date Barbara Valentin DO [address] [place] [address] PCP - General Family Medicine 09/22/23 documented as of this encounter
--- OUTSIDE RECORDS SUMMARY | 2023-12-28 05:15 | XMS_ITS | Encounter Summary ---
Author Organization [facility] [place] [place] Address [address] [facility] [place] [address] Care Team Providers Care Obstetrics Gynecology Physician Name Role Phone Barbara Valentin DO Primary Care Provider Kevin zepeda Encounter Details Date Type Department Care Team (Late st Contact Info) Description 09/22/2023 Documentation Only [facility] [address] [facility] [address] [place] [address] No, Pcp Social History Tobacco [...] on filedocumented in this encounter Care Teams Obstetrics Gynecology Physician Relationship Specialty Start Date End Date Barbara Valentin DO [address] [place] [address] PCP - General Family Medicine 09/22/23 documented as of this encounter
--- OUTSIDE RECORDS SUMMARY | 2023-12-28 05:15 | XMS_ITS | Encounter Summary ---
Author Organization [facility] [place] Address [address] [place] [address] Care Team Providers Care Wheel Alignment Technician Name Role Phone Barbara Valentin DO Primary Care Provider Kevin zepeda Encounter Details Date Type Department Care Team (Late st Contact Info) Description 09/23/2023 Office Communication [facility] [place] [address] [place] [address] Barbara Valentin DO [address] [place] [address] Social History Tobacco Use Types Packs/Day Years [...] on filedocumented in this encounter Care Teams Wheel Alignment Technician Relationship Specialty Start Date End Date Barbara Valentin DO [address] [place] [address] PCP - General Family Medicine 09/22/23 documented as of this encounter
--- OUTSIDE RECORDS SUMMARY | 2023-12-28 05:15 | XMS_ITS | Clinical Summary ---
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
[2023-12-28 05:17] LABS: Basophils Absolute Auto 0.01 K/uL (0.00-0.30); Basophils Percent Auto 0.1 % (0.0-3.0); Eosinophils Absolute Auto 0.05 K/uL (0.00-0.50); Eosinophils Percent Auto 0.7 % (0.0-7.0); Hematocrit 39.7 % (33.0-51.0); Hemoglobin* 12.2 gm/dL (12.0-16.0); Immature Granulocytes Abs Auto 0.02 K/uL (0.00-0.30); Immature Granulocytes Pct Auto 0.3 %; Lymphocytes Percent Auto 10.2 % (20-44); Mean Corpuscular HGB Conc 31 gm/dL (32-36); Mean Corpuscular Hemoglobin 29 pg (26-34); Mean Corpuscular Volume 94 fL (80-100); Monocytes Percent Auto 6.1 % (0.0-11.0); Neutrophils Percent Auto 82.6 % (42.0-72.0); Platelet Count* 262 K/uL (140-440); RDW Coefficient of Variation % 14.3 % (11.5-15.5); Red Blood Count 4.24 m/uL (4.00-5.20); White Blood Count* 7.19 K/uL (4.50-11.00)
[2023-12-28 05:20] LABS: Troponin, Point-of-Care* 0.01 ng/ml (0.01-0.04)
[2023-12-28 05:21] LABS: PCO2 VBG 65 mmHG (40-50)
[2023-12-28 05:22] LABS: Slide Review Reflex No
[2023-12-28 05:32] LABS: Albumin* 4.5 g/dL (3.3-5.0); Chloride* 100 mmol/L (96-114)
[2023-12-28 05:33] LABS: Potassium* 3.8 mmol/L (3.6-5.1); Sodium* 141 mmol/L (135-149)
[2023-12-28 05:35] LABS: Creatinine* 2.5 mg/dL (0.5-1.5); Estimated Glomerular Filt Rate 21 ml/min
[2023-12-28 05:36] LABS: Alanine Aminotransferase* 50 U/L (4-35); Alkaline Phosphatase* 118 U/L (40-150); Anion Gap 10 mEq/L (7-15); Aspartate Amino Transferase* 55 U/L (12-35); Bilirubin Total* 0.4 mg/dL (0.1-1.5); Blood Urea Nitrogen* 60 mg/dL (7-30); Carbon Dioxide* 31 mmol/L (20-32); Glucose* 192 mg/dL (60-115); Total Protein* 8.4 g/dL (6.0-8.3)
[2023-12-28 05:37] LABS: Calcium* 9.2 mg/dL (8.4-10.6)
[2023-12-28 05:39] LABS: C Reactive Protein* 2.3 mg/dL (0.5-1.0)
[2023-12-28 05:51] LABS: NT Pro B Type NatriureticPept* 383 pg/mL
[2023-12-28 05:53] LABS: Procalcitonin* 0.16 ng/mL (<0.50)
[2023-12-28] MEDS: 5 % DEXTROSE IN LAC RINGER'S 1,000 ML 125 ML IV (07:16)
[2023-12-28 09:30] LABS: Glucose, Point-of-Care* 252 mg/dl (60-115)
[2023-12-28 10:19] LABS: Appearance Urine Turbid (Clear); Bilirubin Urine Negative (Negative); Blood Urine 2+ (Negative); Color Urine Yellow (Yellow); Glucose Urine 2+ (Negative); Ketones Urine Negative (Negative); Leukocyte Esterase Urine 3+ (Negative); Nitrite Urine Negative (Negative); Protein Urine 2+ (Negative); Specific Gravity Urine 1.015 (1.000-1.030); Urobilinogen Urine 0.2 (0.2-1.0); pH Urine 5.5 (5.0-8.5)
[2023-12-28 10:24] LABS: Bacteria Urine Many; Squamous Epithelial Cell Urine Few (None-Few); WBC Urine >100 (0-5)
[2023-12-28 10:49] LABS: Glucose, Point-of-Care* 216 mg/dl (60-115)
--- NOTE | 2023-12-30 14:43 | W.PM.CROSSCO ---
Subjective Subjective Interval history: Patient had positive urinary culture from recent ER stay ([facility]). Called Kati, she is having some dysuria. No fevers, back pain or other concerns. Reviewed culture results, called doxycycline to [facility] in [place]. Assessment and Plan Assessment and plan (1) Urinary tract infection: Problem comment: - noted on culture obtained in ED 12/27, CALLED in Doxycycline 100mg BID x7 days to [place] Status: Acute
== END 2023-12-28 11:28 | disposition home or self-care (01) ==
PROVIDERS: Emergency Provider Family Medicine; PCP Family Medicine
DX: E16.2 Hypoglycemia, unspecified (principal); R06.89 Other abnormalities of breathing; R41.0 Disorientation, unspecified
CPT/HCPCS: 36415; 70450; 71045; 80053; 81001; 81003; 82803; 82947; 83605; 83880; 84145; 84484; 85025; 86140; 87086; 87186; 93005; 93926; 99284; 99285

== ENCOUNTER 2023-12-29 14:42 | Outpatient (CLI) | payer OTHER, SELFPAY ==
--- OUTSIDE RECORDS SUMMARY | 2023-12-29 15:07 | XMS_ITS | Encounter Summary ---
Author Organization [facility] [place] Address [address] [facility] [address] [place] [address] Care Team Providers Care Document Control Associate Name Role Phone Barbara Valentin DO Primary Care Provider Kevin zepeda Encounter Details Date Type Department Care Team (Late st Contact Info) Description 09/22/2023 Documentation Only [facility] [place] [address] [facility] [address] [place] [address] No, Pcp Social History Tobacco [...] on filedocumented in this encounter Care Teams Document Control Associate Relationship Specialty Start Date End Date Barbara Valentin DO [address] [place] [address] PCP - General Family Medicine 09/22/23 documented as of this encounter
--- OUTSIDE RECORDS SUMMARY | 2023-12-29 15:07 | XMS_ITS | Encounter Summary ---
Author Organization [facility] [place] Address [address] [place] [address] Care Team Providers Care Aircraft Instrument Mechanic Name Role Phone Barbara Valentin DO Primary Care Provider Kevin zepeda Encounter Details Date Type Department Care Team (Late st Contact Info) Description 09/23/2023 Office Communication [facility] [place] [address] [place] [address] Barbara Valentin DO [address] [place] [address] Social History Tobacco Use Types Packs/Day Years [...] on filedocumented in this encounter Care Teams Aircraft Instrument Mechanic Relationship Specialty Start Date End Date Barbara Valentin DO [address] [place] [address] PCP - General Family Medicine 09/22/23 documented as of this encounter
--- OUTSIDE RECORDS SUMMARY | 2023-12-29 15:07 | XMS_ITS | Encounter Summary ---
Author Organization [facility] [place] [place] Address [address] [place] [address] Care Team Providers Care Produce Team Lead Name Role Phone Barbara Valentin Primary Care Provider eKvin zepeda Encounter Details Date Type Department Care Team (Late st Contact Info) Description 11/10/2023 Documentation Only [facility] [place] [facility] [place] [address] Dave Hurst [address] [place] [address] Social History Tobacco Use Types [...] LAB BLOOD ORDERAB LES Performing Organization Address [facility] Co de Phone Number ALLINA * [...] LAB BLOOD ORDERAB LES Performing Organization Address [facility]/ZIP Co de Phone Number ALLINA [...] LAB BLOOD ORDERAB LES Performing Organization Address [facility] Co de Phone Number ALLINA * [...] LAB BLOOD ORDERAB LES Performing Organization Address City/[facility]/ZIP Co de Phone Number ALLINA documented in this encounter Visit Diagnoses Not on filedocumented in this encounter Care Teams Produce Team Lead Relationship Specialty Start Date End Date Barbara Valentin DO [address] [place] [address] PCP - General Family Medicine 09/22/23 documented as of this encounter
--- OUTSIDE RECORDS SUMMARY | 2023-12-29 15:07 | XMS_ITS | Encounter Summary ---
Author Organization [facility] Address [address] [place] [address] Care Team Providers Care Trouble Dispatcher Name Role Phone Barbara Valentin DO Primary Care Provider Kevin zepeda Reason for Visit * Reason Comments CKD New Patient * Nephrology Services (Urgent) - Closed Specialty Diagnoses / Procedures Referred By Contac t Referred To Contact Nephrology Diagnoses Chronic kidney disease stage 4 (HCC) Barbara Valentin DO [address] [place] [address] Elian Humphrey MD [address] [place] [address] Referral ID Status Reason Start Date Expiration Date Visits Re quested Visits Authorized [id number] Closed 09/22/2023 09/21/2024 1 1 Encounter Details Date Type Department Care Team (Latest Contact Info) Description 11/10/2023 3:30 PM EDT Office Visit [facility] [place] [address] [place] [address] Gabriel Hicks MD [address] [place] [address] Chronic kidney disease, stage 4 [...] Hicks/RAFAEL Acosta Welcome to [facility] Although we are experts in the [...] in caring for renal patients. If your Electrical Instrument Technician deems it appropriate, you will be [...] healthy, so we do have a Renal Customer Logistics Manager to help you with this. We [...] let them know that you see a engineered wood designer for your kidney disease. Ask that they contact your engineered wood designer before this type of test is scheduled. [...] Doctors, Advanced Practice Providers, nurses, and Renal Customer Logistics Manager are here to provide you with the best renal care. We want you to feel free to call us when you have questions or concerns. To call the nurse at your engineered wood designer's office, please see the address and telephone number listed on your After Visit Summary. Thank you, The Physicians and staff at [facility] UNDERSTANDING YOUR BLOOD PRESSURE & LAB [...] Mikayla Kuhn Date of : 1960 Chart: [id number] PCP: Barbara Valentin DO Referring Provider: Barbara [...] her close friend who also is her FLIGHT DYNAMICIST. No recent illnesses or hospitalizations. Tolerating her [...] 05/12/2024). Gabriel Hicks MD [facility] The following portions of the patient's chart [...] MG/DOSE powder Yuni Olea MD Inhale 1 [place] into affected nostril(s) each time if needed [...] disease documented in this encounter Care Teams Trouble Dispatcher Relationship Specialty Start Date End Date Barbara [place] [address] PCP - General Family Medicine 09/22/23 documented as of this encounter
--- OUTSIDE RECORDS SUMMARY | 2023-12-29 15:07 | XMS_ITS | Clinical Summary ---
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
--- OUTSIDE RECORDS SUMMARY | 2023-12-29 15:07 | XMS_ITS | Clinical Summary ---
Author Organization [facility] Address [place], [place] [address] Care Team Providers Care Tube Pusher Name Role Phone Julio Ibrahim MD Unavailable Chuy Doss MD Unavailable [phone] Markel Strong MD Unavailable Nikolai Ibarra MD Unavailable [phone] Barbara Valentin DO Primary Care Provider [...] Each 03/02/20 21 Active blood sugar diagnostic (Team Primary Care Physician Express Test Strip) stripIndications:U ncontrolled type 1 [...] mellitus at risk of hypoglycemia Inhale 1 [place] into affected nostril(s) each time if needed [...] nasal solution (FLONASE)Indicatio ns:Nasal congestion Inhale 1 [place] into affected nostril(s) once daily. Inhale 1 [place] in the nostril(s) once daily. 16 g [...] FEET DIRECTED 396 g 3 02/03/20 Active DULoxetine (CYMBALTA) 60 mg Delayed-release capsuleIndications [...] continuous glucose monitor READER (FreeStyle Elli 2 Troy)Indications :Type 1 diabetes mellitus with other specified complication (HC) To be used to read blood sugars per obiee architect's directions. 1 Each 05/19/20 Active blood-glucose meterIndications:T [...] 4 times per day. 400 Each 3 11/16/20 23 Active lancetsIndications :Type 1 diabetes mellitus [...] be used to read blood sugars per obiee architect's directions. 6 Each 3 09/06/19 24 Active [...] 30 g 1 12/23/19 24 024 Active cetirizine (ZYRTEC) 5 mg tabletIndications: Wheezing Take 1 Tablet (5 mg) by mouth once daily. 90 Tablet 3 12/29/19 24 Active Insulin Waverly, Disposable, (UltiCare Pen Needle) 32 gauge x 5/32Indications:D iabetes mellitus type 1 with complications (HC) TO USE FOR INSULIN ADMINISTRATION FOUR TIMES DAILY 400 Each 3 06/15/20 22 024 Discontinued Per-Fit UnderwearIndicatio ns:Urinary incontinence, unspecified type ADULT PULL UPS XL THREE TIMES A DAY DIRECTED 96 Each 11 12/03/19 23 024 Discontinued cetirizine (ZYRTEC) 5 mg tabletIndications: Wheezing TAKE ONE TABLET (5 MG) BY MOUTH ONCE DAILY. 90 Tablet 2 02/17/20 23 024 Discontinued cholecalciferol (VITAMIN D3) 2,000 [...] substance agreement signed - 10/07/23 10/07/2023 Overview: [facility] Noemí Claudioi .................... 10/07/2023 4:39 PM Type 1 diabetes [...] hypoxia which led to extended stay in long term care social worker care 07/2015- 05/2017 Hospitalized with ketoacidosis 06/2017 [...] post total right knee replacement 01/02/2015 06/10/2017 long-term (current) use of anticoagulants 11/27/2013 12/28/2013 Anticoagulation [...] 09/09/2006 06/10/2017 Controlled type 1 diabetes m isacitus with stage 1 chronic kidney disease 05/25/2002 7 Encounters Date Type Department Care Team Description 12/27/2023 Refill [facility] [address] [place] [address] Barbara Valentin, DO Refill Request (Pregabalin, Cetirizine) 12/23/2023 2:35 PM CDT Office Visit [facility] [address] [place] [address] Barbara Valentin Patricia, DO Diabetes (3 month check, labs); Rash (Rash under breasts? ) 12/23/2023 Travel 12/20/2023 Refill [facility] [address] [place] [address] Barbara Valentin Patricia, DO Refill Request (Humalog Kwikpen Insulin) 12/16/2023 Refill [facility] [address] [place] [address] Toshia Hooks NP Refill Request (Patient son called requesting oxycodone 5 mg at [facility].////) 12/15/2023 Telephone [facility] [address] [place] [address] Barbara Valentin Patricia, DO Lab 12/08/2023 Refill [facility] [address] [place] [address] Barbara Valentin Patricia, DO Refill Request (Ulticare Pen Needle, Per-fit Underwear) 12/07/2023 Refill [facility] [address] [place] [address] Sir Valentini Patricia, DO Refill Request (Ulticare Pen Needle) 11/29/2023 Telephone [facility] [address] [place] [address] Barbara Valentin Patricia, DO Referral 11/29/2023 Refill [facility] [address] [place] [address] Barbara Valentin Patricia, DO Refill Request (Cholecalciferol) 11/18/2023 Refill [facility] [address] [place] [address] Toshia Hooks NP Refill Request (oxycodone 5 mg at [facility]) 11/17/2023 Telephone [facility] [address] [place] [address] Germanra Abrbara Patricia, DO Questions (Vish rod R.N. field nurse case manager with [facility] has some questions for pcp) 11/15/2023 Refill [facility] [address] [place] [address] Saúlqra Barbara Patricia, DO Refill Request (Levothyroxine, Fluoxetine) 11/11/2023 Telephone [facility] [address] [place] [address] Saúlqra Barbara Patricia, DO questions and concerns (vish jennings R.N. called in with questions and concerns for PCP) 10/26/2023 Telephone [facility] [address] [place] [address] Barbie Barbara Patricia, DO Medication Management 10/18/2023 Refill [facility] [address] [place] [address] Toshia Hooks NP Refill Request 10/11/2023 Refill [facility] [address] [place] [address] Sir Valentini Patricia, DO Refill Request (Cyanocobalamin, Pregabalin) 10/07/2023 4:00 PM CDT Office Visit [facility] [address] [place] [address] Toshia Hooks NP Follow Up; Foot Numbness [...] 10/06/2023 Telephone [facility] [address] [place] [address] Barbie Barbara Patricia, DO Follow Up from Last 3 Months Immunizations Name Administration Dates Next Due AMB Influenza, IIV3 (Age >=3 years)(Flu Clinic Only) 05/17/2013,05/06/2010 COVID-19 vaccine (EnteroMedics-Bio NTech 30mcg/0.3mL) 12YO+ BIVALENT PF, MDV 04/28/2022 COVID-19 vaccine (EnteroMedics-Bio NTech 30mcg/0.3mL) PF, MDV 06/23/2021 Hepatitis B [...] T Respiratory Rate 14 08/24/2022 2:38 PM C SOFTWARE DEVELOPER Oxygen Saturation 95% 12/23/2023 3:00 PM CDT Inhaled Oxygen Concentration - - Weight 96.7 kg (213 lb 3.2 oz) 02/28/2023 3:16 P M CDT Height 152.4 cm (5') 01/02/2019 8:57 PM CDT Body Mass Index 41.64 01/02/2019 8:57 PM CDT Plan of Treatment Upcoming Encounters Date Type Department Care Team (Late st Contact Info) Description 01/06/2024 4:00 PM CDT Office Visit [facility] [address] [place] [address] Toshia Hooks NP [address] [place] [address] 03/26/2024 3:25 PM CDT Office Visit [facility] [address] [place] [address] Barbara Valentin DO [address] [place] [address] Health Maintenance Due Date Last Done Comments [...] 03/18/2020, Additional history exists Fecal testing sDNA-FIT ([place] guard) for age 45-75 11/10/2024 11/10/2021 Pneumococcal series for age 6-64 (3 of 3 - PPSV23 or PCV20) 2026 08/17/2016, 08/14/2014, 07/04/2005, Additional history exists Lipids for age 45-75 04/28/2027 04/28/2022, 08/17/2019, 08/31/2018, Additional history exists Tdap Completed 08/25/2010 HIV for age 15-65 Completed 07/21/2015 Hepatitis C screening for ag e 18-79 Completed 02/16/2018 Medical Devices Implanted Type Area Chief Talent Officer Device Identifier Shelf Expiration Date Model / Serial / Lot [id number] 2x12mm [[id number]] Implanted:Qty: 1 on 08/08/2008 at [facility] Explanted:at [facility] (Quantity not on file) Stomach M-Factor [id number]# / [id number] / Stem Compnt Primary 8mm Mini - [id number] Implanted:Qty: 1 on 03/17/2011 at [facility] Right: Shoulder BIOMET [id number]# / / [id number] Head Hum Bio-Mod [id number] - [id number] Implanted:Qty: 1 on 03/17/2011 at [facility] Right: Shoulder BIOMET [id number]# / / [id number] Base Glenoid Hybrid 4mm Sm - [id number] Implanted:Qty: 1 on 03/17/2011 at [facility] Right: Shoulder BIOMET [id number]# / / [id number] Cmnt 1/2 Dosehowmedica - [id number] Implanted:Qty: 1 on 03/17/2011 at [facility] Right: Shoulder [employer] 6188-1-01 0# / / [id number] Post Glenoid Hybrid Regenerex - [id number] Implanted:Qty: 1 on 03/17/2011 at [facility] Right: Shoulder BIOMET [id number] # / / [id number] Head Humeral 44x15 Co Cr Biomodular - [id number] Implanted:Qty: 1 on 07/12/2012 at [facility] Left: Shoulder BIOMET [id number]# / / [id number] Shoulder Stem Implanted:Qty: 1 on 07/12/2012 at [facility] Left: Shoulder [id number] / / [id number] Description:SHOULDER STEM Cmnt Bone 1/2 Dosehowmedica - [id number] Implanted:Qty: 1 on 07/12/2012 at [facility] Left: Shoulder [employer] 6188-1-01 0# / / [id number] Post Glenoid Hybrid Regenerex - [id number] Implanted:Qty: 1 on 07/12/2012 at [facility] Left: Shoulder BIOMET [id number] # / / [id number] Base Glenoid Hybrid 4mm Sm - [id number] Implanted:Qty: 1 on 07/12/2012 at [facility] Left: Shoulder BIOMET [id number]# / / [id number] Procedures Procedure Name Priority Date/Time Associated Diagnosis [...] HIV 1/2 Add On 07/21/2015 9:40 AM C SOFTWARE DEVELOPER WIRE FRAME DIPPER THIN PREP PAP SCREEN IMAGED Routine 08/17/2012 4:02 PM C SOFTWARE DEVELOPER Screening for malignant neoplasm of the cervix from Last 3 Months or Most Recently Relevant to Health Maintenance Results * (ABNORMAL) HEMOGLOBIN A1C MONITORING (POCT) (12/23/2023 2:53 PM CDT) HEMOGLOBIN A1C MONITORING (POCT) 9.1(H) <=6.4 % 12/23/2023 3:04 PM CDT [facility] Blood BLOOD SPECIMEN / Unknown Venipuncture / Unknown 12/23/2023 2:53 PM CDT 12/23/2023 2:53 PM CDT Narrative [facility] - 12/23/2023 3:04 PM CDT [...] Anemias, Splenectomy ? Barbara Valentin DO CHEMISTRY [facility] [address] [place] [address], [place] [phone] * (ABNORMAL) COMPLIANCE DRUG ANALYSIS (10/07/2023 4:00 PM CDT) 6-MONOACETYL MORPHINE NEG NEG ng/mL 10/12/2023 2:04 PM CDT [facility] AMPHETAMINE URINE NEG <=500 ng/mL 10/12/2023 2:04 PM CDT [facility] BARBITURATE URINE NEG <=200 ng/mL 10/12/2023 2:04 PM CDT [facility] BENZODIAZEPINE URINE NEG <=100 ng/mL 10/12/2023 2:04 PM CDT [facility] BUPRENORPHRINE URINE NEG <=5 ng/mL 10/02 2:04 PM CDT [facility] COCAINE METAB URINE NEG <=300 ng/mL 10/12/2023 2:04 PM CDT [facility] ETHYLGLUCURONIDE URINE NEG <=250 ng/mL 10/12/2023 2:04 PM CDT [facility] FENTANYL URINE NEG <=4 ng/mL 10/12/2023 2:04 PM T [facility] METHADONE URINE NEG <=300 ng/mL 10/12/2023 2:04 PM T [facility] OPIATES URINE NEG <=300 ng/mL 10/12/2023 2:04 PM T [facility] OXYCODONE URINE POS(A) <=100 ng/mL 10/12/2023 2:04 PM CDT [facility] PROPOXYPHENE URINE NEG <=300 ng/mL 10/12/2023 2:04 PM T [facility] THC 50 URINE NEG <=50 ng/mL 10/12/2023 2:04 PM T [facility] TRAMADOL NEG <=200 ng/mL 10/12/2023 2:04 PM T [facility] PH URINE 5.2 5.0 - 7.0 10/12/2023 2:04 PM T [facility] CREAT UR 28 >=20 mg/dL 10/12/2023 2:04 PM T [facility] MASS SPECTROMETRY URINE See Below 10/12/2023 2:04 PM T [facility] Comment:Acetaminophen, Oxyco done and Oxycodone metabolites present. Urine URINE SPECIMEN / Unknown Non-Blood / Unknown 10/07/2023 4:00 PM T 10/08/2023 9:15 AM CDT Narrative [facility] - 10/12/2023 2:04 PM T Current Outpatient Medications: acetaminophen SR (TYLENOL ARTHRITIS) [...] 4 times per day. blood sugar diagnostic (Team Primary Care Physician Express Test Strip) strip, Test blood sugar [...] MOUTH ONCE DAILY continuous glucose monitor READER (GoLocal24 Elli 2 Troy), To be used to read blood sugars per obiee architect's directions. continuous glucose monitor SENSOR KIT (FreeStyle Elli 2 Sensor), As directed. To be used to read blood sugars per obiee architect's directions. CPAP, CPAP machine for home use [...] per actuation) nasal solution (FLONASE), Inhale 1 [place] into affected nostril(s) once daily. Inhale 1 [place] in the nostril(s) once daily. glucagon (Baqsimi) 3 mg/actuation nasal spray, Inhale 1 [place] into affected nostril(s) each time if needed [...] before meals. Product desired: HUMALOG KWIKPEN Insulin Waverly, Disposable, (UltiCare Pen Needle) 32 gauge x [...] BY MOUTH ONCE DAILY. miscellaneous medical supply [facility] As directed. Wipe aide naloxone (NARCAN) 4 [...] As of 10/07/2023 Release to patient->Immediate Toshia Amina Neva BATRES URINE [facility] [address] [place] [address], [place] * XR MAMMO BILAT SCREENING (04/28/2022 [...] health care provider. XR MAMMO BILAT SCREENING [[id number]] CLINICAL HISTORY: ??This is an asymptomatic 61 y.o. patient. INDICATION FOR EXAM: Mammogram Screening. TECHNIQUE: CC & MLO views were obtained. ??This study was evaluated with the assistance of Computer-Aided Detection. COMPARISON FILM: Yes 03/02/18 [facility] 07/26/13 [facility] FINDINGS: ??The breasts are extremely dense, which lowers the sensitivity of mammography. There are no dominant masses, suspicious micro calcifications or areas of architectural distortion. Shania Montiel MD MAMMO * LIPID PANEL W REFLEX MEASURED LDL (04/28/2022 1:44 PM CDT) CHOLESTEROL,TOTAL 139 100 - 199 mg/dL 04/30/2022 6:25 PM CDT [facility] [employer] [facility] TRIGLYCERIDES 141 <150 mg/dL 04/30/2022 6:25 PM CDT [facility] HDL CHOLESTEROL 42 >40 mg/dL 6:25 PM CDT [facility] NON-HDL CHOLESTEROL 97 <145 mg/dl 04/30/2022 6:25 PM CDT [facility] CHOL/HDL RATIO 3.31 <4.50 04/30/2022 6:25 PM CDT [facility] LDL CHOLESTEROL 69 <=130 mg/dL 04/30/2022 6:25 PM CDT [facility] VLDL CHOLESTEROL 28 <=30 mg/dL 04/30/2022 6:25 PM CDT [facility] TR[facility] PROVIDER ORDERED STATUS RANDOM 04/30/2022 6:25 PM CDT [facility] Blood BLOOD SPECIMEN / Unknown Venipuncture / Unknown 04/28/2022 1:44 PM CDT 04/28/2022 1:45 PM CDT Shania Montiel MD CHEMISTRY Performing Organization Address City/[facility]/ZIP Co de Phone Number [facility] [address] [place] [address], [place] * FECAL DNA (AKA COLOGUARD) (11/10/2021 1:00 PM CDT) Shania Montiel MD COMMUNICATION ORD * ANTI HCV [[id number]] (02/16/2018 4:20 PM CDT) HEPATITIS C ANTIBODY Non-React alex Non-React alex 02/17/2018 2:48 PM CDT [facility] Comment:Antibodies to HCV no t detected; does not exclude the possibility of exposure to HCV. Blood BLOOD SPECIMEN / Unknown Butterfly / Unknown 02/16/2018 4:20 PM CDT 02/16/2018 4:20 PM CDT Coleman Plata MD SEND OUTS Performing Organization Address City/[facility]/ZIP Co de Phone Number [facility] [address] [place] [address], * HIV 1&2 TODAY (07/21/2015 9:40 AM C SOFTWARE DEVELOPER) Pathologist [facility] HIV-1/HIV-2 ANTIBODY Non-Reacti ve Non-Reacti ve 07/21/2015 10:31 AM C SOFTWARE DEVELOPER [facility] TRA [facility] Blood specimen (specimen) BLOOD SPECIMEN / Unknown Venipuncture / Unknown 07/21/2015 9:40 AM C SOFTWARE DEVELOPER 07/21/2015 9:47 AM C SOFTWARE DEVELOPER Narrative [facility] - 07/21/2015 10:31 AM C SOFTWARE DEVELOPER HIV-1 p24 and HIV-1/HIV-2 Ab not detected Kait Morales DO SEND OUTS [facility] [address] [place] [address], * WIRE FRAME DIPPER THIN PREP PAP SCREEN IMAGED (08/17/2012 4:02 PM C SOFTWARE DEVELOPER) Pathologist [facility] CYTOLOGY CYTOPATHOLOGY REPORT [facility] [employer] Status: Final Status ?[id number] CLINICAL INFORMATION Last Date of LMP ? :07/03/2012 Last Pap Date ?:02/01/2011 Last Pap Result ?:NIL ABN Elba/Bx Past 5 YRS :None Hormone Usage ?:BCP/OCP/Patch/R ing Menstrual Status ? :Regular Periods Elba/Bx done today ? :No Additional Information :None [...] COLLECTED:08/17/12 ? ACCESSIONED: ??08/18/12 ?? SIGNED: ??08/21/12 [facility] PAP [place] CODE NIL [facility] Tissue specimen (specimen) (Cervical/Vagina l) 08/17/2012 4:02 PM C SOFTWARE DEVELOPER 08/17/2012 4:00 PM C SOFTWARE DEVELOPER Coleman Plata MD PATHOLOGY/CYTOLOGY [facility] INTERNAL ZIP [address] [place] [id number] from Last 3 Months or Most Recently [...] 8:49 PM 03/19/2011 7:03 PM Care Teams Tube Pusher Relationship Specialty Start Date End Date Barbara Valentin DO [address] [place] [address] PCP - General Family Practice 11/15/22 Julio Ibrahim MD [address] [facility] [address] [place] [address] Surgery - Orthopedics 02/01/11 Chuy Doss MD [address] [facility] [address] [place] [address] Surgery - Vascular 02/01/11 Markel Strong MD [address] [place] [address] Provider Family Practice 08/08/20 Nikolai Ibarra MD [address] [facility] [address] [place] [address] Endocrinology 09/07/22 Suad Ng/ [employer] Energy Crop Farmer 07/14/17 [facility] Home Health Nurse 07/01/17 [facility] STAGE ELECTRICIAN Services Home Health Aide 07/14/17 [facility] Christmas Tree Farmer/ Ally Christianson [address] [place] [address] Energy Crop Farmer 07/07/17
== END 2023-12-29 14:43 | disposition home or self-care (01) ==
LOC: WOUND 15:05
PROVIDERS: PCP Family Medicine; Visit Provider Nurse Practitioner Family
DX: E11.621 Type 2 diabetes mellitus with foot ulcer (principal); L97.422 Non-pressure chronic ulcer of left heel and midfoot with fat layer exposed; M14.672 Charcot's joint, left ankle and foot; Z79.4 Long term (current) use of insulin
CPT/HCPCS: 11042

== ENCOUNTER 2024-01-12 12:44 | Outpatient (CLI) | payer MEDICARE, OTHER, SELFPAY ==
--- OUTSIDE RECORDS SUMMARY | 2024-01-18 19:09 | XMS_ITS | Clinical Summary ---
Author Organization [employer] [facility] Address [place], [place] [address] Care Team Providers Care Managed Care Specialist Name Role Phone Jluio Ibrahim MD Unavailable [phone] Chuy Doss MD Unavailable [phone] Markel Strong MD Unavailable [phone] Nikolai Ibarra MD Unavailable [phone] Barbara Valentin DO Primary Care Provider [facility], [place] Unavailable Allergies Active Allergy Reactions Criticality Noted Date [...] Dispensed Refills Start Date End Date Status insulin syringe-needle u-100 (UltiCare) 1 mL 31 gauge x /16Indications:Di abetes mellitus type 1 with complications (HC) For administering insulin at home.FOR ADMINISTERING INSULIN SUBCUTANEOUSLY AT HOME 100 Each 03/02/20 21 Active glucagon (Baqsimi) 3 mg/actuation nasal sprayIndications:p atient with diabetes mellitus at risk of hypoglycemia Inhale 1 Carpenter into affected nostril(s) each time if needed for Severe Hypoglycemia. Roll on side and call 911 after administration. 2 Each 12/25/19 22 Active fluticasone (50 mcg per actuation) nasal solution (FLONASE)Indicatio ns:Nasal congestion Inhale 1 Carpenter into affected nostril(s) once daily. Inhale 1 Carpenter in the nostril(s) once daily. 16 g 01/12/20 22 Active CPAPIndications:Se nolan obstructive sleep apnea CPAP [...] EVERY 2-3 MIN. 2 Each 2 01/29/20 23 Active DULoxetine (CYMBALTA) 60 mg Delayed-release capsuleIndications :Adjustment disorder with mixed anxiety and depressed mood,Chronic pain syndrome Take 1 Capsule (60 mg) by mouth once daily. 90 Capsule 3 02/29/20 23 Active amLODIPine (NORVASC) 2.5 mg tabletIndications: Essential hypertension Take 1 Tablet (2.5 mg) by mouth two times daily. 180 Tablet 3 02/29/20 23 Active sennosides-docusat e (Stool Softener-Stimulant Laxat) (8.6-50 mg) tabletIndications: Chronic constipation TAKE TWO TABLETS BY MOUTH TWO TIMES DAILY NEEDED FOR CONSTIPATION. 360 Tablet 2 04/20/20 23 Active continuous glucose monitor READER (Access Media 3 Elli 2 Sheridan)Indications :Type 1 diabetes mellitus with other specified complication (HC) To be used to read blood sugars per doctor of podiatry's directions. 1 Each 05/19/20 23 Active blood-glucose meterIndications:T ype 1 diabetes mellitus with other specified complication (HC) As directed. Dispense meter, test strips, lancets covered by pt ins. E10.9 IDDM type I - Test 4 times/day. Reason: Unstable diabetes 1 Each 05/19/20 23 Active blood sugar diagnostic (Blood Glucose [...] be used to read blood sugars per doctor of podiatry's directions. 6 Each 3 09/06/19 24 Active omeprazole (PRILOSEC) 20 mg Delayed-Release capsuleIndications :Chronic GERD Take 1 Capsule (20 mg) by mouth once daily before a meal. 90 Capsule 1 09/06/19 24 Active polyethylene glycoL (MIRALAX) 17 gram/scoop powderIndications: Chronic constipation MIX 17GMS IN 8OZ LIQUID AND DRINK ONCE DAILY NEEDED FOR CONSTIPATION 238 g 2 09/14/19 24 Active metoprolol succinate (TOPROL XL) 25 mg Sustained-Release tabletIndications: HTN (hypertension) TAKE ONE TABLET (25 MG) BY MOUTH ONCE DAILY. 90 Tablet 2 09/22/19 24 Active atorvastatin (LIPITOR) 20 mg tabletIndications: Diabetes mellitus type 1 with complications (HC) Take 1 Tablet (20 mg) by mouth at bedtime. 90 Tablet 3 09/21/19 24 Active cyanocobalamin (VITAMIN B12) 1,000 mcg tabletIndications: B12 deficiency TAKE ONE TABLET BY MOUTH ONCE DAILY 90 Tablet 2 10/11/19 24 Active cholecalciferol (VITAMIN D3) 2,000 unit capsuleIndications :Vitamin D deficiency Take 1 Capsule (2,000 units) by mouth once daily. 90 Capsule 2 11/30/19 24 Active pen needle, diabetic (NovoFine Plus) 32 gauge x 1/6 ndleIndications:Di abetes mellitus type 1 with complications (HC) Inject subcutaneous. TO USE FOR INSULIN ADMINISTRATION FOUR TIMES DAILY 400 Each 3 12/08/19 24 Active levothyroxine (SYNTHROID) 125 mcg tabletIndications: Hypothyroidism (acquired) Take 1 Tablet (125 mcg) by mouth once daily. 90 Tablet 12/23/19 24 Active cetirizine (ZYRTEC) 5 mg tabletIndications: Wheezing Take 1 Tablet (5 mg) by mouth once daily. 90 Tablet 3 12/29/19 24 Active FLUoxetine (PROZAC) 10 mg capsuleIndications :Moderate episode of recurrent major depressive disorder (HC) TAKE 1 CAPSULE (10 MG) BY MOUTH ONCE DAILY. 60 Capsule 01/13/20 24 Active buprenorphine 5 mcg/hr (Butrans) 5 mcg/hour transdermal patch Apply 1 Patch on dry, clean, hairless skin once weekly. Active losartan (COZAAR) 25 mg tablet Take 12.5 mg by mouth once daily. Active acetaminophen (TYLENOL) 325 mg tabletIndications: Opioid dependence, uncomplicated (HC) Take 2 Tablets (650 mg) by mouth every 4 hours if needed for Pain or Temp > (Specify) (Temp >100.4 F (38 C)). Max acetaminophen dose: 4000mg in 24 hrs. 01/17/20 24 Active pregabalin (LYRICA) 100 mg capsuleIndications :Chronic pain syndrome Take 1 Capsule (100 mg) by mouth two times daily. 01/17/20 24 Active insulin aspart, U-100, (NOVOLOG FLEXPEN) 100 unit/mL (3 mL) penIndications:Typ e 1 diabetes mellitus with proliferative retinopathy, macular edema presence unspecified, unspecified laterality, unspecified proliferative retinopathy type (HC) 6-7 units with each meal , plus Corrective dose insulin as needed, up to 45 units / day 01/17/20 24 Active insulin glargine, U-100, (LANTUS) 100 unit/mL injectionIndicatio ns: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, macular edema presence unspecified, unspecified laterality, unspecified proliferative retinopathy type (HC) 20 units each morning 01/17/20 24 Active hydrocortisone 1 % creamIndications:R senthil APPLY TOPICALLY TO AFFECTED AREA(S) TWICE A DAY 28.4 g 08/23/19 21 024 Discontinued(Ph armacist change per medication history (E-cancel not sent)) blood sugar diagnostic ([employer] Test Strip) stripIndications:U ncontrolled type 1 diabetes mellitus with hyperglycemia (HC) Test blood sugar 4 times dialy. E10.65 IDDM type I, uncontrolled - Test 4 times/day. Reason: High A1C 0 03/02/20 21 024 Discontinued(Ph armacist change per medication history (E-cancel not sent)) Blood Pressure Test Kit-Wrist kitIndications:Ess ential hypertension As directed. 1 Each 03/12/20 21 024 Discontinued(Ph armacist change per medication history (E-cancel not sent)) Chair LiftIndications:Ot her closed fracture of femur, unspecified laterality, unspecified portion of femur, sequela For home use. 1 Each 03/12/20 21 024 Discontinued(Ph armacist change per medication history (E-cancel not sent)) Underpads padsIndications:Ur inary incontinence, unspecified type As directed. 300 Each 1 12/31/19 22 024 Discontinued(Ph armacist change per medication history (E-cancel not sent)) miscellaneous medical supply miscIndications:Ur inary incontinence, unspecified type As directed. Wipe aide 1 unit 12/31/19 22 024 Discontinued(Ph armacist change per medication history (E-cancel not sent)) Elevated Toilet Seat with ArmsIndications:Ur inary incontinence, unspecified type For home use. 1 Each 12/31/19 22 024 Discontinued(Ph armacist change per medication history (E-cancel not sent)) Walker - 4 wheelsIndications: Chronic pain syndrome,Foot drop, bilateral,Osteoart hritis of both hips, unspecified osteoarthritis type,Spinal cord lesion (HC) With seat - For home use. Length of need: 99 1 Each 06/10/20 22 024 Discontinued(Ph armacist change per medication history (E-cancel not sent)) durable medical equipment (DME)Indications:C hronic obstructive pulmonary disease, unspecified COPD type (HC),Chronic pain syndrome,Diabetic peripheral neuropathy (HC),Spinal cord lesion (HC) Hospital bed mattress, railings, foot protector for hospital bed 1 Each 01/29/20 23 024 Discontinued(Ph armacist change per medication history (E-cancel not sent)) diclofenac topical (VOLTAREN) 1 % gelIndications:Chr onic pain syndrome,Osteoarth ritis, unspecified osteoarthritis type, unspecified site APPLY 1 GRAM TOPICALLY TO AFFECTED AREA(S) FOUR TIMES A DAY 350 g 2 02/03/20 23 024 Discontinued(Ph armacist change per medication history (E-cancel not sent)) ammonium lactate 12% topical (LACHYDRIN) 12 % lotionIndications: Dry skin dermatitis APPLY TOPICALLY DAILY TO BILATERAL FEET DIRECTED 396 g 3 02/03/20 23 024 Discontinued(Ph armacist change per medication history (E-cancel not sent)) cetirizine (ZYRTEC) 5 mg tabletIndications: Wheezing TAKE [...] 024 Discontinued(Du plicate therapy (E-cancel not sent)) acetaminophen SR (TYLENOL ARTHRITIS) 650 mg Extended-Release tabletIndications: Chronic pain syndrome TAKE TWO TABLETS BY MOUTH EVERY EIGHT HOURS 180 Tablet 2 09/14/19 24 024 Discontinued(Ph armacist change per medication history (E-cancel not sent)) albuterol-ipratrop ium (DUONEB) (2.5-0.5 mg) in 3 mL NEBULIZATION solutionIndication s:Chronic obstructive pulmonary disease, unspecified COPD type (HC) Inhale 3 mL via a nebulizer 4 times daily if needed for Wheezing. 180 mL 09/21/19 24 024 Discontinued(Ph armacist change per medication history (E-cancel not sent)) Lantus Solostar U-100 Insulin 100 unit/mL (3 mL) penIndications:Typ e 1 diabetes mellitus with proliferative retinopathy, macular edema presence unspecified, unspecified laterality, unspecified proliferative retinopathy type (HC) Inject 13 units subcutaneous before bedtime. Product desired: LANTUS SOLOSTAR 9 mL 3 09/21/19 24 024 Discontinued(*M edication adjustment) durable medical equipment (DME)Indications:S easonal affective disorder (HC) Seasonal affective disorder lamp 1 Each 09/21/19 24 024 Discontinued(Ph armacist change per medication history (E-cancel not sent)) buprenorphine 5 mcg/hr (BUTRANS) 5 mcg/hour transdermal patchIndications:N europathy due to secondary diabetes (HC),Type 1 diabetes mellitus with foot ulcer (CODE) (HC) Apply 1 Patch on dry, clean, hairless skin once weekly. 4 Patch 3 09/27/19 24 024 Discontinued(*M edication adjustment) pregabalin (LYRICA) 50 mg capsuleIndications :Diabetic peripheral neuropathy (HC) TAKE ONE CAPSULE BY MOUTH EVERY EVENING WITH 1-100MG CAPSULE TO TOTAL 150MG 30 Capsule 5 10/12/19 24 024 Discontinued(Ph armacist change per medication history (E-cancel not sent)) insulin lispro (HumaLOG U-100 Insulin) 100 unit/mL [...] 24 024 Discontinued(Re order (E-cancel not sent)) FLUoxetine (PROZAC) 10 mg capsuleIndications :Moderate episode of recurrent major depressive disorder (HC) TAKE 1 CAPSULE (10 MG) BY MOUTH ONCE DAILY. 60 Capsule 11/16/19 24 024 Discontinued(Ph armacist change per medication history (E-cancel not sent)) Diaper,Brief, Adult,Disposable (Per-Fit Underwear)Indicati ons:Urinary incontinence, unspecified type ADULT PULL UPS XL THREE TIMES A DAY DIRECTED 96 Each 12/10/19 24 024 Discontinued(Ph armacist change per medication history (E-cancel not sent)) oxyCODONE (ROXICODONE) 5 mg immediate release tabletIndications: Chronic pain syndrome,Neuropath y due to secondary diabetes (HC) Si p.o. B.I.D. / PRN For O.A. pain or Diabetic P.N. Pain ; max: 2 a day. Use dates: 12/23/23-01/21/24 60 Tablet 12/20/19 24 024 Discontinued(Re order (E-cancel not sent)) insulin lispro (HumaLOG U-100 Insulin) 100 unit/mL injectionIndicatio ns:Diabetes mellitus type 1 with complications (HC) Inject 6-8u SubQ TID AC, 4u SubQ BID with snack depending on carb intake 10 mL 3 12/23/19 24 024 Discontinued(Ph armacist change per medication history (E-cancel not sent)) Lantus Solostar U-100 Insulin 100 unit/mL (3 mL) penIndications:Typ e 1 diabetes mellitus with proliferative retinopathy, macular edema presence unspecified, unspecified laterality, unspecified proliferative retinopathy type (HC) Inject 16 units subcutaneous before bedtime. Product desired: LANTUS SOLOSTAR 9 mL 3 12/23/19 24 024 Discontinued(Ph armacist change per medication history (E-cancel not sent)) nystatin 100,000 unit/gram creamIndications:I ntertrigo Apply topically to affected area(s) two times daily for 7 days. 30 g 1 12/23/19 24 024 pregabalin (LYRICA) 100 mg capsuleIndications :Chronic pain syndrome TAKE TWO CAPSULES (200MG) BY MOUTH EVERY MORNING AND ONE CAPSULE IN THE EVENING WITH THE (50MG) TO TOTAL 150MG 90 Capsule 5 12/30/19 24 024 Discontinued(Ph armacist change per medication history (E-cancel not sent)) buprenorphine 7.5 mcg/hr (Butrans) 7.5 mcg/hour ptwkIndications:Ch ronic pain syndrome,Encounter for therapeutic drug monitoring,Neuropa thy due to secondary diabetes (HC) Apply 1 Patch on dry, clean, hairless skin once weekly. New dose. 7.5 mcg. 4 Patch 3 01/06/20 24 024 Discontinued(Ph armacist change per medication history (E-cancel not sent)) oxyCODONE (ROXICODONE) 5 mg immediate release tabletIndications: Chronic pain syndrome,Neuropath y due to secondary diabetes (HC) Si p.o. B.I.D. / PRN For O.A. pain or Diabetic P.N. Pain ; max: 2 a day. Use dates: 01/22/24-02/20/24 60 Tablet 01/19/20 024 Discontinued(Ph armacist change per medication history (E-cancel not sent)) pregabalin (LYRICA) 100 mg capsule Take 200 mg by mouth once daily in the morning. 024 Discontinued pregabalin (Lyrica) 50 mg capsule Take 150 mg by mouth at bedtime. 024 Discontinued(*I P Discontinued) insulin glargine, U-100, (LANTUS) 100 unit/mL injection Inject 15 units subcutaneous before bedtime. 024 Discontinued insulin aspart, U-100, (NOVOLOG FLEXPEN) 100 unit/mL (3 mL) pen Inject 8 units subcutaneous three times daily before meals. 024 Discontinued Active Problems Patient Care Coordination No te Formatting of this note migh t be different from the original. Family and Getting more independent is what matters most to Kati. Kati would like her care team to know she has supportive family. What are Kati's challenges, stressors, or barriers? Mobility, finances. Problem Noted Date Diagnosed Date Heart failure with preserved ejection fraction, borderline, class III 01/14/2024 Diabetic ketoacidosis withou t coma associated with type 1 diabetes mellitus 01/13/2024 Controlled substance agreement signed - 10/07/23 10/07/2023 Overview: [facility] [place] .................... 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 07/2015- 05/2017 Hospitalized with ketoacidosis 06/2017 [...] post total right knee replacement 01/02/2015 06/10/2017 custodial (current) use of anticoagulants 11/27/2013 12/28/2013 Anticoagulation [...] Encounters Date Type Department Care Team Description 01/18/2024 10:30 AM CDT Phone Office Visit [facility] Medical Specialties [facility] [address] [place] [address] Nikolai Ibarra MD Arrived 01/18/2024 Patient Outreach [facility] [address] [place] [address] Maria R Ho, RN Primary RN Care Management; Hospital F/U (Lace 44) 01/18/2024 Travel 01/12/2024 9:13 PM CDT - 01/17/2024 5:23 PM CDT Hospital Encounter [facility] [address] [place] [address] Megan, MD Nedra Valverde, DO Chente Honeycutt, MD Dusty Manjarrez, MD Ricky Alston, Helder Hoover MD [facility] [place] Hospitalists Of Opioid dependence, uncomplicated (HC) (Primary Dx); Nasal congestion; Chronic pain syndrome; Diabetic ketoacidosis without coma associated with type 1 diabetes mellitus (HC); 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, macular edema presence unspecified, unspecified laterality, unspecified proliferative retinopathy type (HC); Heel ulcer, right, with unspecified severity (HC) Discharge Disposition: Home Health 01/09/2024 Refill [facility] [address] [place] [address] Barbara Valentin DO Refill Request (Fluoxetine) 01/09/2024 Refill [facility] [address] [place] [address] Elian Humphrey MD Refill Request (Torsemide) 01/06/2024 4:00 PM CDT Office Visit [facility] [address] [place] [address] Toshia Hooks NP Follow Up; Pain (Multi source; was told by her Cuff Knitter she can ot use OTC Voltaren gel., which had been helping her O.A. pain (hands; wrists; shoulders; ) ) 01/06/2024 Travel 01/02/2024 Telephone [facility] [address] [place] [address] Barbara Valentin Patricia, DO Follow Up 12/27/2023 Refill [facility] [address] [place] [address] Barbara Valentin Patricia, DO Refill Request (Pregabalin, Cetirizine) 12/23/2023 2:35 PM CDT Office Visit [address] [address] Barbara Valentin, DO Diabetes (3 month check, labs); Rash (Rash under breasts? ) 12/23/2023 Travel 12/20/[address] [address] Barbara Valentin Patricia, DO Refill Request (Humalog Kwikpen Insulin) 12/16/2023 Refill [facility] [address] [place] [address] Toshia Hooks NP Refill Request (Patient son called requesting oxycodone 5 mg at [facility].////) 12/15/2023 Telephone [facility] [address] [place] [address] Barbara Valentin, DO Lab 12/08/[address] [address] Sir Valentini Patricia, DO Refill Request (Ulticare Pen Needle, Per-fit Underwear) 12/07/2023 Refill [facility] [address] [place] [address] Sir Valentini Patricia, DO Refill Request (Ulticare Pen Needle) 11/29/2023 Telephone [facility] [address] [place] [address] Barbie, Barbara Patricia, DO Referral 11/29/2023 Refill [facility] [address] [place] [address] Saúlqra Barbara Patricia, DO Refill Request (Cholecalciferol) 11/18/2023 Refill [facility] [address] [place] [address] Toshia Hooks, GISEL Refill Request (oxycodone 5 mg at [facility]) 11/17/2023 Telephone [facility] [address] [place] [address] Germanra Barbara Patricia, DO Questions (Vish rod R.N. case preparer and liner with [facility] has some questions for pcp) 11/15/2023 Refill [facility] [address] [place] [address] Germanra Barbara Patricia, DO Refill Request (Levothyroxine, Fluoxetine) 11/11/2023 Telephone [facility] [address] [place] [address] Germanra Barbara Patricia, DO questions and concerns (vish jennings R.N. called in with questions and concerns for PCP) 10/26/2023 Telephone [facility] [address] [place] [address] Saúlqra Barbara Patricia, DO Medication Management from Last 3 Months Immunizations Name Administration [...] History Relation Name Status Comments Brother 1 Alive Brother 2 Brother 3 Father Mother Social [...] Sign Reading Time Taken Comments Blood Pressure 165/61 01/17/2024 4:12 PM CDT Pulse 79 01/17/2024 4:12 PM CDT Temperature 37.1 ??C (98.7 ??F) 01/17/2024 4:12 PM CD T Respiratory Rate 18 01/17/2024 4:12 PM CDT Oxygen Saturation 97% 01/17/2024 4:12 PM CDT Inhaled Oxygen Concentration - - Weight 102.3 kg (225 lb 9.6 oz) 01/16/2024 6:48 AM CDT Height 152.4 cm (5') 01/12/2024 9:27 PM CDT Body Mass Index 44.06 01/12/2024 9:27 PM CDT Plan of Treatment Upcoming Encounters Date Type Department Care Team (Late st Contact Info) Description 01/20/2024 11:25 AM CDT Office Visit [facility] [address] [place] [address] Barbara Valentin, DO [address] [place] [address] 03/26/2024 3:25 PM CDT Office Visit [facility] [address] [place] [address] Barbara Valentin Patricia, DO [address] [place] [address] 05/04/2024 3:30 PM CDT Phone Office Visit [facility] [address] [place], [place] [id number] Nikolai bIarra MD [address] [place] [address] Health Maintenance Due Date Last Done Comments [...] 03/18/2020, Additional history exists Fecal testing sDNA-FIT (War guard) for age 45-75 11/10/2024 11/10/2021 Pneumococcal series for age 6-64 (3 of 3 - PPSV23 or PCV20) 2026 08/17/2016, 08/14/2014, 07/04/2005, Additional history exists Lipids for age 45-75 04/28/2027 04/28/2022, 08/17/2019, 08/31/2018, Additional history exists Tdap Completed 08/25/2010 HIV for age 15-65 Completed 07/21/2015 Hepatitis C screening for ag e 18-79 Completed 02/16/2018 Medical Devices Implanted Type Area Clasp Machine Operator Device Identifier Shelf Expiration Date Model / Serial / Lot [id number] 2x12mm [[id number]] Implanted:Qty: 1 on 08/08/2008 at [facility] Explanted:at [facility] (Quantity not on file) Stomach Bunndle [id number]# / [id number] / Stem Compnt Primary 8mm Mini - [id number] Implanted:Qty: 1 on 03/17/2011 at [facility] Right: Shoulder BIOMET [id number]# / / [id number] Head Hum Bio-Mod [id number] - [id number] Implanted:Qty: 1 on 03/17/2011 at [facility] Right: Shoulder BIOMET [id number]# / / [id number] Base Glenoid Hybrid 4mm Sm - [id number] Implanted:Qty: 1 on 03/17/2011 at [facility] Right: Shoulder BIOMET [id number]# / / [id number] Cmnt 1/2 Dosehowmedica - [id number] Implanted:Qty: 1 on 03/17/2011 at [facility] Right: Shoulder [employer] [id number] 0# / / [id number] Post Glenoid Hybrid Regenerex - [id number] Implanted:Qty: 1 on 03/17/2011 at [facility] Right: Shoulder BIOMET [id number] # / / [id number] Head Humeral 44x15 Co Cr Biomodular - [id number] Implanted:Qty: 1 on 07/12/2012 at [facility] Left: Shoulder BIOMET [id number]# / / [id number] Shoulder Stem Implanted:Qty: 1 on 07/12/2012 at [facility] Left: Shoulder [id number] / / [id number] Description:SHOULDER STEM Cmnt Bone 1/2 Dosehowmedica - [id number] Implanted:Qty: 1 on 07/12/2012 at [facility] Left: Shoulder [employer] 6188-1- 0# / / [id number] Post Glenoid Hybrid Regenerex - [id number] Implanted:Qty: 1 on 07/12/2012 at [facility] Left: Shoulder BIOMET [id number] # / / [id number] Base Glenoid Hybrid 4mm Sm - [id number] Implanted:Qty: 1 on 07/12/2012 at [facility] Left: Shoulder BIOMET [id number]# / / [id number] Procedures Procedure Name Priority Date/Time Associated Diagnosis Comments SCAN CORRESP-LABORATORY RESULTS 01/17/2024 3:51 PM CDT SCAN CORRESP-IMAGING 01/17/2024 3:51 PM CDT GLUCOSE METER Timed 01/17/2024 11:27 AM CDT GLUCOSE METER Timed 01/17/2024 8:21 AM CDT BASIC METABOLIC PANEL RICHARD 01/17/2024 8:20 AM CDT CREATININE RICHARD 01/17/2024 8:20 AM CDT PHOSPHORUS Today 01/17/2024 8:20 AM CDT GLUCOSE METER Timed 01/17/2024 2:03 AM CDT GLUCOSE METER Timed 01/16/2024 9:56 PM CDT GLUCOSE METER Timed 01/16/2024 5:12 PM CDT CLOSTRIDIOIDES DIFFICILE TOXIN PCR Today 01/16/2024 12:27 PM CDT GLUCOSE METER Timed 01/16/2024 11:58 AM CDT SCAN CORRESP-EKG RESULTS 01/16/2024 9:07 AM CDT SCAN CORRESP-IMAGING 01/16/2024 9:01 AM CDT GLUCOSE METER Timed 01/16/2024 6:42 AM CDT HEMOGLOBIN Early AM 01/16/2024 6:30 AM CDT CREATININE Early AM 01/16/2024 6:30 AM CDT VANCOMYCIN Early AM 01/16/2024 6:30 AM CDT GLUCOSE METER Timed 01/16/2024 2:04 AM CDT GLUCOSE METER Timed 01/15/2024 9:15 PM CDT GLUCOSE METER Timed 01/15/2024 6:24 PM CDT GLUCOSE METER Timed 01/15/2024 12:51 PM CDT GLUCOSE METER Timed 01/15/2024 9:05 AM CDT PHOSPHORUS Early AM 01/15/2024 6:02 AM CDT CREATININE Early AM 01/15/2024 6:02 AM CDT POTASSIUM Early AM 01/15/2024 6:02 AM CDT SODIUM Early AM 01/15/2024 6:02 AM CDT PLATELET COUNT Early AM 01/15/2024 6:02 AM CDT WHITE BLOOD COUNT Early AM 01/15/2024 6:0 2 AM CDT HEMOGLOBIN Early AM 01/15/2024 6:02 AM CDT VANCOMYCIN Early AM 01/15/2024 6:02 AM CDT GLUCOSE METER Timed 01/15/2024 2:04 AM CDT GLUCOSE METER Timed 01/14/2024 10:33 PM CDT GLUCOSE METER Timed 01/14/2024 5:20 PM CDT GLUCOSE METER Timed 01/14/2024 1:26 PM CDT GLUCOSE METER Timed 01/14/2024 10:10 AM CDT SCAN-CARDIAC STRIP 01/14/2024 7: 07 AM CDT PHOSPHORUS Early AM 01/14/2024 5:28 AM CDT BASIC METABOLIC PANEL Early AM 01/14/2024 5:28 AM CDT CBC W PLT NO DIFF Early AM 01/14/2024 5:2 8 AM CDT CALCIUM IONIZED HOSPITAL DRAW ONLY Early AM 01/14/2024 5:28 AM CDT VANCOMYCIN Early AM 01/14/2024 5:28 AM CDT GLUCOSE METER Timed 01/14/2024 5:27 AM CDT GLUCOSE METER Timed 01/14/2024 1:37 AM CDT GLUCOSE METER Timed 01/13/2024 10:35 PM CDT GLUCOSE METER Timed 01/13/2024 5:15 PM CDT ECHO TTE COMPLETE W CONTRAST Today 01/13/2024 3:56 PM CDT US ARTERIAL LOWER EXTREMITY W SAMUEL BILATERAL Routine 01/13/2024 2:23 PM CDT US RENAL AND BLADDER COMPLETE PORTABLE Routine 01/13/2024 2:23 PM CDT BASIC METABOLIC PANEL Today 01/13/2024 2:14 PM CDT GLUCOSE METER Timed 01/13/2024 2:11 PM CDT GLUCOSE METER Timed 01/13/2024 12:59 PM CDT CALCIUM IONIZED HOSPITAL DRAW ONLY Timed 01/13/2024 12:17 PM CDT GLUCOSE METER Timed 01/13/2024 12:11 PM CDT XR FOOT 3 VIEWS LEFT PORTABLE Routine 01/13/2024 12:06 PM CDT AEROBIC BACTERIAL CULTURE, STAIN Today 01/13/2024 11:49 AM CDT ELECTROLYTE PANEL Timed 01/13/2024 10: 53 AM CDT GLUCOSE METER Timed 01/13/2024 10:44 AM CDT GLUCOSE METER Timed 01/13/2024 9:20 AM CDT GLUCOSE METER Timed 01/13/2024 8:07 AM CDT SCAN-CARDIAC STRIP 01/13/2024 8: 00 AM CDT GLUCOSE METER Timed 01/13/2024 7:01 AM CDT ELECTROLYTE PANEL Timed 01/13/2024 6:1 3 AM CDT GLUCOSE METER Timed 01/13/2024 6:10 AM CDT GLUCOSE METER Timed 01/13/2024 5:04 AM CDT POTASSIUM Timed 01/13/2024 4:22 AM CDT MAGNESIUM Early AM 01/13/2024 4:22 AM CDT PHOSPHORUS Early AM 01/13/2024 4:22 AM CDT BASIC METABOLIC PANEL Early AM 01/13/2024 4:22 AM CDT GLUCOSE METER Timed 01/13/2024 4:10 AM CDT GLUCOSE METER Timed 01/13/2024 3:07 AM CDT GLUCOSE METER Timed 01/13/2024 2:12 AM CDT ELECTROLYTE PANEL Timed 01/13/2024 1:5 2 AM CDT GLUCOSE, RANDOM STAT 01/13/2024 1:52 AM CDT GLUCOSE METER Timed 01/13/2024 1:21 AM CDT GLUCOSE METER Timed 01/12/2024 11:46 PM CDT TROPONIN T (HS) ONE TIME Timed 01/12/2024 11:39 PM CDT POTASSIUM Timed 01/12/2024 11:39 PM CDT GLUCOSE, RANDOM STAT 01/12/2024 11:39 PM CDT EKG 12 LEAD STAT 01/12/2024 10:16 PM CDT MRSA/SA PCR Today 01/12/2024 10:07 PM CDT URINE CULTURE Today 01/12/2024 10:07 PM CDT BLOOD CULTURE STAT 01/12/2024 9:40 PM CDT BLOOD CULTURE STAT 01/12/2024 9:39 PM CDT GLUCOSE METER Timed 01/12/2024 9:38 PM CDT HEMOGLOBIN A1C RICHARD 01/12/2024 9:37 PM CDT CBC WITH AUTO DIFFERENTIAL STAT 01/12/2024 9:37 PM CDT CALCIUM IONIZED HOSPITAL DRAW ONLY STAT 01/12/2024 9:37 PM CDT BLOOD GAS,VENOUS STAT 01/12/2024 9:37 PM CDT PROTIME-INR STAT 01/12/2024 9:37 PM CDT HEPATIC FUNCTION PANEL STAT 9:37 PM CDT TROPONIN T (HS) ACUTE W/2HR REFLEX STAT 01/12/2024 9:37 PM CDT PHOSPHORUS STAT 01/12/2024 9:37 PM CDT MAGNESIUM STAT 01/12/2024 9:37 PM CDT CBC WITH AUTO DIFFERENTIAL STAT 01/12/2024 9:37 PM CDT BASIC METABOLIC PANEL STAT 01/12/2024 9:37 PM CDT SCAN-CARDIAC STRIP 01/12/2024 9: 20 PM CDT HEMOGLOBIN A1C Routine 12/23/2023 2:53 PM CDT [...] HIV 1/2 Add On 07/21/2015 9:40 AM CLINICAL TRIAL MANAGER MOTH PROOFER THIN PREP PAP SCREEN IMAGED Routine 08/17/2012 4:02 PM CLINICAL TRIAL MANAGER Screening for malignant neoplasm of the cervix from Last 3 Months or Most Recently Relevant to Health Maintenance Results * SCAN CORRESP-LABORATORY RESULTS (01/17/2024 3:51 PM CDT) Narrative 01/17/2024 3:51 PM CDT Ordered by an unspecified provider. Other Clinical Staff OTHER * SCAN CORRESP-IMAGING (01/17/2024 3:51 PM CDT) Only the most recent of2 resultswithin the time period is included. Anatomical Region Laterality Modality Other Narrative 01/17/2024 3:51 PM CDT Ordered by an unspecified provider. Other Clinical Staff OTHER * (ABNORMAL) GLUCOSE METER (01/17/2024 11:27 AM CDT) Only the most recent of36 resultswithin the time period is included. [facility] Signature GLUCOSE METER 156(H) 65 - 100 mg/dL 01/17/2024 11:35 AM CDT [facility] Blood BLOOD SPECIMEN / Unknown 01/17/2024 11:27 AM CDT 01/17/2024 11:35 AM CDT Helder García MD CHEMISTRY Performing Organization Address City/[facility] Co de Phone Number [facility] [address] [place] [address], [place] * (ABNORMAL) CREATININE (01/17/2024 8:20 AM CDT) Only the most recent of3 resultswithin the time period is included. eGFR 47(L) >90 mL/min/1.7 3m2 01/17/2024 9:06 AM CDT [facility] Comment:As of 2021, eG FR is calculated by the CKD-EPI creatinine equation without race adjustment. ??eGFR can be influenced by muscle mass, exercise, and diet. ??The reported eGFR is an estimation only and is only applicable if the renal function is stable. CREATININE 1.28(H) 0.50 - 0.90 mg/dL 01/17/2024 9:06 AM CDT [facility] Blood BLOOD SPECIMEN / Unknown Non-Lab Venipuncture / Unknown 01/17/2024 8:20 AM CDT 01/17/2024 8:26 AM CDT Helder García MD CHEMISTRY Performing Organization Address City/[facility]/ZIP Co de Phone Number [facility] [address] [place] [address], [place] * PHOSPHORUS (01/17/2024 8:20 AM CDT) Only the most recent of5 resultswithin the time period is included. PHOSPHORUS 2.6 2.5 - 4.5 mg/dL 01/17/2024 9:06 AM CDT [facility] Blood BLOOD SPECIMEN / Unknown Non-Lab Venipuncture / Unknown 01/17/2024 8:20 AM CDT 01/17/2024 8:26 AM CDT Sarah Betancourt RN CHEMISTRY [facility] [address] [place] [address], * (ABNORMAL) BASIC METABOLIC PANEL (01/17/2024 8:20 AM CDT) Only the most recent of5 resultswithin the time period is included. SODIUM 139 136 - 145 mmol/L 01/17/2024 12:35 PM CDT [facility] POTASSIUM 3.9 3.5 - 5.1 mmol/L 01/17/2024 12:35 PM CDT [facility] CHLORIDE 103 98 - 107 mmol/L 01/17/2024 12:35 PM CDT [facility] CO2,TOTAL 24 22 - 29 mmol/L 01/17/2024 12:35 PM CDT [facility] ANION GAP 12 5 - 18 01/17/2024 12:35 PM CDT [facility] GLUCOSE 162(H) 70 - 99 mg/dL 01/17/2024 12:35 PM T [facility] CALCIUM 8.7(L) 8.8 - 10.2 mg/dL 01/17/2024 12:35 PM CDT [facility] BUN 17 8 - 23 mg/dL 01/17/2024 12:35 PM T [facility] CREATININE 1.31(H) 0.50 - 0.90 mg/dL 01/17/2024 12:35 PM T [facility] BUN/CREAT RATIO 13 10 - 20 12:35 PM T [facility] eGFR 46(L) >90 mL/min/1.7 3m2 01/17/2024 12:35 PM T [facility] Comment: As of 2021, eGFR is calculated by the CKD-EPI creatinine equation without race adjustment. ??eGFR can be influenced by muscle mass, exercise, and diet. ??The reported eGFR is an estimation only and is only applicable if the renal function is stable. As of 09/15/2021, eGFR is calculated by the CKD-EPI creatinine equation without race adjustment. ??eGFR can be influenced by muscle mass, exercise, and diet. ??The reported eGFR is an estimation only and is only applicable if the renal function is stable. Blood BLOOD SPECIMEN / Unknown Non-Lab Venipuncture / Unknown 01/17/2024 8:20 AM CDT 01/17/2024 8:26 AM CDT Helder García MD CHEMISTRY Performing Organization Address [facility] de Phone Number [facility] [address] [place] [address], * CLOSTRIDIOIDES DIFFICILE TOXIN PCR (01/16/2024 12:27 PM CDT) Pathologist [facility] CLOSTRIDIUM DIFFICILE PCR Negative 01/16/2024 2:18 PM CDT [facility] PRESUMPTIVE NAP1 STRAIN Negative 01/16/2024 2:18 PM CDT [facility] Stool STOOL SPECIMEN / Unknown Non-Blood / Unknown 01/16/2024 12:27 PM CDT 01/16/2024 12:51 PM CDT Narrative [facility] - 01/16/2024 2:18 PM CDT The NAP1 (027 or BI) strain is a hypervirulent strain. Detection may be useful for epidemiological purposes. Helder García MD MICROBIOLOGY Performing Organization Address [facility] Co de Phone Number [facility] [address] [place] [address], * SCAN CORRESP-EKG RESULTS (01/16/2024 9:07 AM CDT) Narrative 01/16/2024 9:07 AM CDT Ordered by an unspecified provider. Other Clinical Staff OTHER * (ABNORMAL) HEMOGLOBIN (01/16/2024 6:30 AM CDT) Only the most recent of2 resultswithin the time period is included. Pathologist [facility] HEMOGLOBIN 8.9(L) 12.0 - 16.0 g/dL 01/16/2024 7:13 AM CDT [facility] MCV 91 80 - 100 fL 01/16/2024 7:13 AM CDT [facility] Blood BLOOD SPECIMEN / Unknown Venipuncture / Unknown 01/16/2024 6:30 AM CDT 01/16/2024 6:58 AM CDT Fabrizio Montano MD HEMATOLOGY Performing Organization Address [facility] de Phone Number [facility] [address] [place] [id number], [place] * VANCOMYCIN (01/16/2024 6:30 AM CDT) Only the most recent of3 resultswithin the time period is included. Pathologist [facility] VANCOMYCIN 13.0 ug/mL 01/16/2024 7:42 AM CDT [facility] Comment:No Reference Range D efined. DATE OF LAST DOSE,RANDOM Not Given 01/16/2024 7:42 AM CDT [facility] TIME OF LAST DOSE,RANDOM Not Given 01/16/2024 7:42 AM CDT [facility] Blood BLOOD SPECIMEN / Unknown Venipuncture / Unknown 01/16/2024 6:30 AM CDT 01/16/2024 6:58 AM CDT Barbara Holcomb NP CHEMISTRY Performing Organization Address [facility] Co de Phone Number [facility] [address] [place] [id number], [place] * (ABNORMAL) PLATELET COUNT (01/15/2024 6:02 AM CDT) [facility] PLATELET COUNT 166 140 - 440 thou/cu mm 01/15/2024 6:44 AM CDT [facility] MPV 11.2(H) 6.5 - 11.0 fL 01/15/2024 6:44 AM CDT [facility] Blood BLOOD SPECIMEN / Unknown Venipuncture / Unknown 01/15/2024 6:02 AM CDT 01/15/2024 6:26 AM CDT Fabrizio Montano MD HEMATOLOGY Performing Organization Address City/[facility]/ZIP Co de Phone Number [facility] [address] [place] [phone], [place] * WHITE BLOOD COUNT (01/15/2024 6:02 AM CDT) WHITE BLOOD COUNT 4.9 4.5 - 11.0 thou/cu mm 01/15/2024 6:44 AM CDT [facility] NRBC 0.0 % 01/15/2024 6:44 AM CDT [facility] ABS NRBC 0.0 thou /cu mm 01/15/2024 6:44 AM CDT [facility] Blood BLOOD SPECIMEN / Unknown Venipuncture / Unknown 01/15/2024 6:02 AM CDT 01/15/2024 6:26 AM CDT Fabrizio Montano MD HEMATOLOGY Performing Organization Address City/[facility]/ZIP Co de Phone Number [facility] [address] [place] [phone], [place] * Sodium AM (01/15/2024 6:02 AM CDT) SODIUM 142 136 - 145 mmol/L 01/15/2024 7:13 AM CDT [facility] Blood BLOOD SPECIMEN / Unknown Venipuncture / Unknown 01/15/2024 6:02 AM CDT 01/15/2024 6:27 AM CDT Fabrizio Montano MD CHEMISTRY Performing Organization Address City/[facility]/ZIP Co de Phone Number [facility] [address] [place] [id number], [place] * Potassium AM (01/15/2024 6:02 AM CDT) Only the most recent of3 resultswithin the time period is included. POTASSIUM 4.4 3.5 - 5.1 mmol/L 01/15/2024 7:13 AM CDT [facility] Blood BLOOD SPECIMEN / Unknown Venipuncture / Unknown 01/15/2024 6:02 AM CDT 01/15/2024 6:27 AM CDT Fabrizio Montano MD CHEMISTRY [facility] [address] [place] [address], * SCAN-CARDIAC STRIP (01/14/2024 7:07 AM CDT) Scanner OTHER * (ABNORMAL) CBC W PLT NO DIFF (01/14/2024 5:28 AM CDT) WHITE BLOOD COUNT 8.5 4.5 - 11.0 thou/cu mm 01/14/2024 6:33 AM CDT [facility] RED BLOOD COUNT 3.04(L) 4.00 - 5.20 mil/cu mm 01/14/2024 6:33 AM CDT [facility] HEMOGLOBIN 8.9(L) 12.0 - 16.0 g/dL 01/14/2024 6:33 AM T [facility] HEMATOCRIT 27.5(L) 33.0 - 51.0 % 01/14/2024 6:33 AM CDT [facility] MCV 91 80 - 100 fL 01/14/2024 6:33 AM CDT [facility] MCH 29.3 26.0 - 34.0 pg 01/14/2024 6:33 AM CDT [facility] MCHC 32.4 32.0 - 36.0 g/dL 01/14/2024 6:33 AM T [facility] RDW 14.4 11.5 - 15.5 % 01/14/2024 6:33 AM CDT [facility] PLATELET COUNT 198 140 - 440 thou/cu mm 01/14/2024 6:33 AM CDT [facility] MPV 11.4(H) 6.5 - 11.0 fL 01/14/2024 6:33 AM CDT [facility] NRBC 0.0 % 01/14/2024 6:33 AM CDT [facility] ABS NRBC 0.0 thou /cu mm 01/14/2024 6:33 AM CDT [facility] Blood BLOOD SPECIMEN / Unknown Non-Lab Venipuncture / Unknown 01/14/2024 5:28 AM CDT 01/14/2024 6:31 AM CDT Barbara Holcomb NP HEMATOLOGY Performing Organization Address City/[facility]/ZIP Co de Phone Number [facility] [address] [place] [address], * (ABNORMAL) CALCIUM IONIZED HOSPITAL DRAW ONLY (01/14/2024 5:28 AM CDT) Only the most recent of3 resultswithin the time period is included. CALCIUM,IONIZE D 1.30(H) 1.15 - 1.27 mmol/L 01/14/2024 6:03 AM CDT [facility] Blood BLOOD SPECIMEN / Unknown Non-Lab Venipuncture / Unknown 01/14/2024 5:28 AM CDT 01/14/2024 5:49 AM CDT Grace Eldridge MD CHEMISTRY [facility] [address] [place] [address], [place] * ECHO TTE COMPLETE W CONTRAST (01/13/2024 3:56 PM CDT) AORTIC VALVE MEAN PG 7 mmHg EJECTION FRACTION 64 % LVEDD 4.1 cm EJECTION FRACTION 60 - 65% Anatomical Region Laterality Modality Ultrasound 01/13/2024 2:53 PM CDT Narrative 01/13/2024 4:39 PM CDT ECHOCARDIOGRAM MIKAYLA KUHN ? Accession#: ?? [id number] : ?1960 63 years Study Date: ?? 01/13/2024 2:53:14 PM Gender: F ?BP: ? 114/44 mmHg Height: 152.00 cm ?BSA: ?1.93 m? ? ? Weight: 98.00 kg ? Tech: ? KBA ? Referring MD: BARBARA HOLCOMB Site: ? [facility] Reading Location: AN IP Patient Location: Inpatient. Procedure: 2D w/ Contrast, Color Doppler and Spectral Doppler. Indication for study: Elevated BNP Cardiac Rhythm: Normal sinus.Study quality: Fair. Imaging limitations: This study was subject to imaging limitations due to body habitus. Final Impressions: 1. Normal LV size, normal wall thickness, normal global systolic function with an estimated EF of 60 - 65%. 2. Right ventricular cavity size is normal, global systolic RV function is normal. 3. No significant valve disease detected. Comparison Compared to prior exam of 10/12/22, there has been no significant change. Chamber Sizes and Function Normal left ventricular size, normal wall thickness, normal global systolic function with an estimated EF of 60 - 65%. Left atrial size is normal. Left atrial pressure is normal. Right ventricular cavity size is normal, global systolic RV function is normal. RV wall thickness is normal. The right atrium is normal. Right atrial volume index is 24 ml/m? ? ?. Right atrial area is 16 cm? ? ?. The pulmonary artery is not well visualized. The sinus of Valsalva is normal sized. The ascending aorta is normal sized. Valves, RV Pressures and Diastolic Function The aortic valve is normal in structure and trileaflet, no stenosis and no regurgitation. The mitral valve is degenerative, trace mitral regurgitation. Mild mitral annular calcification is present. Indeterminate pattern of LV diastolic filling. The tricuspid valve is normal in structure. Tricuspid regurgitation is trace regurgitation. The pulmonic valve is normal. Trace pulmonary regurgitation. Masses, Effusion, Shunts There is no pericardial effusion. The inferior vena cava is dilated, respiratory size variation less than 50%. No left to right shunting was detected by limited color flow Doppler interrogation of the interatrial septum. MEASUREMENTS AND CALCULATIONS 2-D Measurements and LV Function: LVID (d) 4.0 cm LV FS% (2D) ?? 36 % LVID (s) 2.6 cm LVOT diameter 1.7 cm IVS (d) ??0.8 cm HR ?69 bpm LVPW (d) 1.0 cm LA Vol index ??21 ml/m2 Ao Sinus 2.4 cm RA Vol index ??24 ml/m2 Asc Ao ?? 3.0 cm RA area ? 16 cm? ? ? Diastology: Mitral ? Tissue Doppler E Peak 0.1 m/s e', Septum ? 0.08 m/s ? e', Lateral ?0.08 m/s ? E/e' Average ?? 0.94 Aortic Valve: Vmax ? 1.7 m/s ??EDMUND (V) ?? 1.63 cm? ? ? VTI ?0.41 m ?? EDMUND (I) ?? 1.61 cm? ? ? LVOT V max 1.2 m/s ??Max PG ?12 mmHg LVOT VTI ?? 0.29 m ?? Mean PG ?? 7 mmHg SV ? 67 ml ?Dim Index 0.71 SV index ?? 35 ml/m? ? ? CO ?4.6 l/min ?CI ?2.4 l/min/m? ? ? Mitral Valve: MV Mean G 1 mmHg Tricuspid Valve and estimated PA pressures: TAPSE 1.8 cm Pulmonic Valve: PV AT 111 msec Contrast documentation: 2 ml diluted Definity, lot #[id number], [facility]# [id number] was administered peripherally to enhance visualization of all left ventricular segments. . This study was interpreted by an [facility] accredited facility. ??Final ?? Procedure Note Travon Blood MD - 01/13/2024 ECHOCARDIOGRAM MIKAYLA KUHN : 1960 63 years Study Date: 01/13/2024 2:53:14 PM Gender: F BP: 114/44 mmHg Height: 152.00 cm BSA: 1.93 m? ? ? Weight: 98.00 kg Tech: PASQUALE Referring MD: BARBARA HOLCOMB Site: [facility] Reading Location: ANW IP Patient Location: Inpatient. Procedure: 2D w/ Contrast, Color Doppler and Spectral Doppler. Indication for study: Elevated BNP Cardiac Rhythm: Normal sinus.Study quality: Fair. Imaging limitations: This study was subject to imaging limitations due tobody habitus. Final Impressions: 1. Normal LV size, normal wall thickness, normal global systolic functionwith an estimated EF of 60 - 65%. 2. Right ventricular cavity size is normal, global systolic RV functionis normal. 3. No significant valve disease detected. Comparison Compared to prior exam of 10/12/22, there has been no significantchange. Chamber Sizes and Function Normal left ventricular size, normal wall thickness, normal globalsystolic function with an estimated EF of 60 - 65%. Left atrial size isnormal. Left atrial pressure is normal. Right ventricular cavity size isnormal, global systolic RV function is normal. RV wall thickness isnormal. The right atrium is normal. Right atrial volume index is 24ml/m? ? ?. Right atrial area is 16 cm? ? ?. The pulmonary artery is not wellvisualized. The sinus of Valsalva is normal sized. The ascending aorta isnormal sized. Valves, RV Pressures and Diastolic Function The aortic valve is normal in structure and trileaflet, no stenosis and noregurgitation. The mitral valve is degenerative, trace mitralregurgitation. Mild mitral annular calcification is present. Indeterminatepattern of LV diastolic filling. The tricuspid valve is normal instructure. Tricuspid regurgitation is trace regurgitation. The pulmonicvalve is normal. Trace pulmonary regurgitation. Masses, Effusion, Shunts There is no pericardial effusion. The inferior vena cava is dilated,respiratory size variation less than 50%. No left to right shunting wasdetected by limited color flow Doppler interrogation of the interatrialseptum. MEASUREMENTS AND CALCULATIONS 2-D Measurements and LV Function: LVID (d) 4.0 cm LV FS% (2D) 36 % LVID (s) 2.6 cm LVOT diameter 1.7 cm IVS (d) 0.8 cm HR 69 bpm LVPW (d) 1.0 cm LA Vol index 21 ml/m2 Ao Sinus 2.4 cm RA Vol index 24 ml/m2 Asc Ao 3.0 cm RA area 16 cm? ? ? Diastology: Mitral Tissue Doppler E Peak 0.1 m/s e', Septum 0.08 m/s e', Lateral 0.08 m/s E/e' Average 0.94 Aortic Valve: Vmax 1.7 m/s EDMUND (V) 1.63 cm? ? ? VTI 0.41 m EDMUND (I) 1.61 cm? ? ? LVOT V max 1.2 m/s Max PG 12 mmHg LVOT VTI 0.29 m Mean PG 7 mmHg SV 67 ml Dim Index 0.71 SV index 35 ml/m? ? ? CO 4.6 l/min CI 2.4 l/min/m? ? ? Mitral Valve: MV Mean G 1 mmHg Tricuspid Valve and estimated PA pressures: TAPSE 1.8 cm Pulmonic Valve: PV AT 111 msec Contrast documentation: 2 ml diluted Definity, lot #[id number], [facility]#[id number] was administered peripherally to enhance visualization of allleft ventricular segments. . This study was interpreted by an [facility] accredited facility. Final Barbara Martinez Zhang CONTRACT WRITER ECHO ORD * US ARTERIAL LOWER EXTREMITY W SAMUEL BILATERAL (01/13/2024 2:23 PM CDT) Anatomical Region Laterality Modality LEGS Ultrasound 01/14/2024 4:57 PM CDT Impressions 01/14/2024 4:57 PM CDT 1. Left SAMUEL is nondiagnostic due to noncompressible vessels. On the right, the posterior tibial artery is noncompressible. The SAMUEL as measured on the right dorsalis pedis artery is in borderline range but this could be an accurate given the noncompressibility of the other ankle vessels. If there is ongoing concern, consider toe-brachial indices. 2. Elevated velocities in the common femoral arteries bilaterally could be due to tortuosity or stenosis in the inflow vessels. 3. Otherwise, normal duplex exam with no additional site concerning for stenosis. No arterial occlusion. Dictated by Peterson Ruvalcaba MD @ 01/14/2024 4:57:16 PM (Electronically Signed) Narrative 01/14/2024 4:57 PM CDT For Patients: ??As a result of the Century Cures Act, medical imaging exams and procedure reports are released immediately into your electronic medical record. ??You may view this report before your referring provider. ??If you have questions, please contact your health care provider. EXAM: Lower extremity Doppler ultrasound with ankle brachial indices. INDICATION: Nonhealing wound on left foot. History of diabetes. TECHNIQUE: The bilateral lower extremity arteries were examined per exam specific protocol. Ultrasound performed using real-time villegas scale imaging (B-mode 2D), color-flow Doppler and spectral analysis. ??Peak systolic velocities (PSV), Doppler waveform quality and velocity ratios if applicable, were documented at sites per exam specific protocol. In addition, resting ankle-brachial indices were obtained. COMPARISON: None available FINDINGS: Right Brachial: 125 mmHg Left Brachial: 111 mmHg Right ASSISTANT LIBRARIAN: Noncompressible Right DPA: 115 mmHg (SAMUEL 0.92) Left ASSISTANT LIBRARIAN: Noncompressible Left DPA: Noncompressible SAMUEL: 1.0-1.4 - normal 0.9-0.99 - borderline 0.80-0.89 - mild 0.50-0.79 - moderate 0.30-0.49 - severe < 0.30 - critical RIGHT: PROGRAM ASSISTANT PROX: 204 cm/sec; triphasic waveforms PROGRAM ASSISTANT DIST: 138 cm/sec; triphasic waveforms PFA: 97 cm/sec; triphasic waveforms SFA PROX: 140, 111 cm/sec; triphasic waveforms SFA MID: 113, 74 cm/sec; triphasic waveforms SFA DIST: 107, 113 cm/sec; triphasic waveforms POP PROX: 105 cm/sec; triphasic waveforms POP DIST: 89 cm/sec; triphasic waveforms ASSISTANT LIBRARIAN: 32 cm/sec; triphasic waveforms KAITLYN: 58 cm/sec; triphasic waveforms DPA: 56 cm/sec; triphasic waveforms LEFT: PROGRAM ASSISTANT PROX: 193 cm/sec; triphasic waveforms PROGRAM ASSISTANT DIST: 152 cm/sec; triphasic waveforms PFA: 98 cm/sec; triphasic waveforms SFA PROX: 119, 109 cm/sec; triphasic waveforms SFA MID: 103, 102 cm/sec; triphasic waveforms SFA DIST: 103, 100 cm/sec; triphasic waveforms POP PROX: 124 cm/sec; triphasic waveforms POP DIST: 85 cm/sec; triphasic waveforms ASSISTANT LIBRARIAN: 169 cm/sec; triphasic waveforms KAITLYN: 91 cm/sec; triphasic waveforms DPA: 96 cm/sec; triphasic waveforms Procedure Note Peterson Ruvalcaba MD - 01/14/2024 For Patients: As a result of the Century Cures Act, medical imagingexams and procedure reports are released immediately into your electronicmedical record. You may view this report before your referring provider.If you have questions, please contact your health care provider. EXAM: Lower extremity Doppler ultrasound with ankle brachial indices. INDICATION: Nonhealing wound on left foot. History of diabetes. TECHNIQUE: The bilateral lower extremity arteries were examined per exam specificprotocol. Ultrasound performed using real-time villegas scale imaging (B-mode2D), color-flow Doppler and spectral analysis. Peak systolic velocities(PSV), Doppler waveform quality and velocity ratios if applicable, weredocumented at sites per exam specific protocol. In addition, restingankle-brachial indices were obtained. COMPARISON: None available FINDINGS: Right Brachial: 125 mmHg Left Brachial: 111 mmHg Right ASSISTANT LIBRARIAN: Noncompressible Right DPA: 115 mmHg (SAMUEL 0.92) Left ASSISTANT LIBRARIAN: Noncompressible Left DPA: Noncompressible SAMUEL: 1.0-1.4 - normal 0.9-0.99 - borderline 0.80-0.89 - mild 0.50-0.79 - moderate 0.30-0.49 - severe < 0.30 - critical RIGHT: PROGRAM ASSISTANT PROX: 204 cm/sec; triphasic waveforms PROGRAM ASSISTANT DIST: 138 cm/sec; triphasic waveforms PFA: 97 cm/sec; triphasic waveforms SFA PROX: 140, 111 cm/sec; triphasic waveforms SFA MID: 113, 74 cm/sec; triphasic waveforms SFA DIST: 107, 113 cm/sec; triphasic waveforms POP PROX: 105 cm/sec; triphasic waveforms POP DIST: 89 cm/sec; triphasic waveforms ASSISTANT LIBRARIAN: 32 cm/sec; triphasic waveforms KAITLYN: 58 cm/sec; triphasic waveforms DPA: 56 cm/sec; triphasic waveforms LEFT: PROGRAM ASSISTANT PROX: 193 cm/sec; triphasic waveforms PROGRAM ASSISTANT DIST: 152 cm/sec; triphasic waveforms PFA: 98 cm/sec; triphasic waveforms SFA PROX: 119, 109 cm/sec; triphasic waveforms SFA MID: 103, 102 cm/sec; triphasic waveforms SFA DIST: 103, 100 cm/sec; triphasic waveforms POP PROX: 124 cm/sec; triphasic waveforms POP DIST: 85 cm/sec; triphasic waveforms ASSISTANT LIBRARIAN: 169 cm/sec; triphasic waveforms KAITLYN: 91 cm/sec; triphasic waveforms DPA: 96 cm/sec; triphasic waveforms IMPRESSION: 1. Left SAMUEL is nondiagnostic due to noncompressible vessels. On the right,the posterior tibial artery is noncompressible. The SAMUEL as measured on theright dorsalis pedis artery is in borderline range but this could be anaccurate given the noncompressibility of the other ankle vessels. If thereis ongoing concern, consider toe-brachial indices. 2. Elevated velocities in the common femoral arteries bilaterally could bedue to tortuosity or stenosis in the inflow vessels. 3. Otherwise, normal duplex exam with no additional site concerning forstenosis. No arterial occlusion. Dictated by Peterson Ruvalcaba MD @ 01/14/2024 4:57:16 PM (Electronically Signed) Freya Schafer NP US * US RENAL AND BLADDER COMPLETE PORTABLE (01/13/2024 2:23 PM CDT) Anatomical Region Laterality Modality Abdomen, KIDNEYS Ultrasound 01/14/2024 2:34 AM CDT Impressions 01/14/2024 2:34 AM CDT 1. Limited evaluation with otherwise unremarkable kidneys. 2. Limited evaluation of the urinary bladder with Snow catheter in place. Dictated by John Carter MD @ 01/14/2024 2:34:58 AM (Electronically Signed) Narrative 01/14/2024 2:34 AM CDT For Patients: ??As a result of the Cures Act, medical imaging exams and procedure reports are released immediately into your electronic medical record. ??You may view this report before your referring provider. ??If you have questions, please contact your health care provider. INDICATION: Recurrent UTI. TECHNIQUE: Ultrasound renal and bladder complete. Villegas-scale and color Doppler sonographic images were acquired of the kidneys and urinary bladder. COMPARISON: None. FINDINGS: Evaluation limited by poor acoustic windows. Right kidney: 9.3 x 3.5 x 5.2 cm. Left kidney: 8.3 x 4.8 x 4.8 cm. ?? Normal echotexture and cortex. No suspicious masses or hydronephrosis. Bladder: Evaluation limited with Snow catheter in place. Procedure Note John Carter MD - 01/14/2024 For Patients: As a result of the Cures Act, medical imagingexams and procedure reports are released immediately into your electronicmedical record. You may view this report before your referring provider.If you have questions, please contact your health care provider. INDICATION: Recurrent UTI. TECHNIQUE: Ultrasound renal and bladder complete. Villegas-scale and color Dopplersonographic images were acquired of the kidneys and urinary bladder. COMPARISON: None. FINDINGS: Evaluation limited by poor acoustic windows. Right kidney: 9.3 x 3.5 x 5.2 cm. Left kidney: 8.3 x 4.8 x 4.8 cm. Normal echotexture and cortex. No suspicious masses or hydronephrosis. Bladder: Evaluation limited with Snow catheter in place. IMPRESSION: 1. Limited evaluation with otherwise unremarkable kidneys. 2. Limited evaluation of the urinary bladder with Snow catheter inplace. Dictated by John Carter MD @ 01/14/2024 2:34:58 AM (Electronically Signed) Barbara Holcomb CONTRACT WRITER US * XR FOOT 3 VIEWS LEFT PORTABLE (01/13/2024 12:06 PM CDT) Anatomical Region Laterality Modality FEET, FOOT L Digital Radiogra phy Narrative 01/14/2024 11:25 AM CDT Indication: Foot wound. ??Evaluate for osteomyelitis. Comparison: None. Impression: Short linear metallic soft tissue foreign body density projecting at the plantar margin fourth metatarsal distal diaphysis. ??This measures about 7 mm. ??Mild diffuse demineralization. ??Atherosclerotic vascular calcifications. ??Slightly dysmorphic angled fifth metatarsal distally from healed fracture. ??No acute fracture. ??No bone resorption. ?? No soft tissue air. ??Site of soft tissue wound is not marked. Freya Schafer NP GENERAL IMAGI NG * (ABNORMAL) AEROBIC BACTERIAL CULTURE, STAIN (01/13/2024 11:49 AM CDT) CULTURE RESULT(A) 01/16/2024 2:44 PM CDT [facility] CULTURE 3+ Corynebacterium striatum 01/16/2024 2:44 PM CDT [facility] CULTURE 2+ Mixed oni present 01/16/2024 2:44 PM CDT [facility] GRAM STAIN No PMNs 01/16/2024 2:44 PM CDT [facility] GRAM STAIN 2+ RBCs 01/16/2024 2:44 PM CDT [facility] GRAM STAIN No Epithelial cells 01/15 2:44 PM CDT [facility] GRAM STAIN 2+ Gram Positive Bacilli 01/16/2024 2:44 PM CDT [facility] Other (Other) Non-Blood / Unknown 01/13/2024 11:49 AM CDT 01/13/2024 12:00 PM CDT Narrative [facility] - 01/16/2024 2:44 PM CDT Mixed oni; No Staphylococcus aureus, beta-Streptococcus, Streptococcus pneumoniae, or Pseudomonas aeruginosa isolated. Freya Schafer NP MICROBIOLOGY Performing Organization Address [facility] Co de Phone Number [facility] [address] [place] [address], * (ABNORMAL) Electrolytes Panel - DKA (01/13/2024 10:53 AM CDT) Only the most recent of3 resultswithin the time period is included. SODIUM 140 136 - 145 mmol/L 01/13/2024 11:36 AM CDT [facility] POTASSIUM 5.2(H) 3.5 - 5.1 mmol/L 01/13/2024 11:36 AM CDT [facility] CHLORIDE 107 98 - 107 mmol/L 01/13/2024 11:36 AM CDT [facility] CO2,TOTAL 21(L) 22 - 29 mmol/L 01/13/2024 11:36 AM CDT [facility] ANION GAP 12 5 - 18 01/13/2024 11:36 AM CDT [facility] Blood BLOOD SPECIMEN / Unknown Non-Lab Venipuncture / Unknown 01/13/2024 10:53 AM CDT 01/13/2024 11:01 AM CDT Ifeanyi Hernández RN CHEMISTRY Performing Organization Address [facility] Co de Phone Number [facility] [address] [place] [address], * SCAN-CARDIAC STRIP (01/13/2024 8:00 AM CDT) Scanner OTHER * MAGNESIUM (01/13/2024 4:22 AM CDT) Only the most recent of2 resultswithin the time period is included. MAGNESIUM 1.9 1.6 - 2.4 mg/dL 01/13/2024 5:07 AM CDT [facility] Blood BLOOD SPECIMEN / Unknown Non-Lab Venipuncture / Unknown 01/13/2024 4:22 AM CDT 01/13/2024 4:41 AM CDT Ifeanyi Hernández RN CHEMISTRY Performing Organization Address [facility] Co de Phone Number [facility] [address] [place] [address], [place] * (ABNORMAL) Serum Glucose - DKA (01/13/2024 1:52 AM CDT) Only the most recent of2 resultswithin the time period is included. Pathologist [facility] GLUCOSE,RANDOM 459(H) 70 - 139 mg/dL 01/13/2024 2:46 AM CDT [facility] Blood BLOOD SPECIMEN / Unknown Non-Lab Venipuncture / Unknown 01/13/2024 1:52 AM CDT 01/13/2024 2:03 AM CDT Emily Guzman MD CHEMISTRY Performing Organization Address [facility] Co de Phone Number [facility] [address] [place] [address], [place] * (ABNORMAL) TROPONIN T (HS) ONE TIME (01/12/2024 11:39 PM CDT) [facility] TROPONIN T HS 45(H) 6-10 ng/L ng/L 01/13/2024 12:22 AM CDT [facility] Blood BLOOD SPECIMEN / Unknown Non-Lab Venipuncture / Unknown 01/12/2024 11:39 PM CDT 01/12/2024 11:45 PM CDT Emily Guzman MD CHEMISTRY Performing Organization Address City/[facility] Co de Phone Number [facility] [address] [place] [address], [place] * 12 Lead EKG (01/12/2024 10:16 PM CDT) [facility] Interpretation Normal sinus rhythm Left axis deviation Abnormal ECG When compared with ECG of 02-Jan-2019 02:01, Nonspecific T wave abnormality now evident in Lateral leads BEYOND NOW Ventricular Rate 78 BPM BEYOND NOW Atrial Rate 78 BPM BEYOND NOW P-R Interval 160 ms BEYOND NOW QRS Duration 82 ms BEYOND NOW QT 400 ms BEYOND NOW QTc 456 ms BEYOND NOW P [place] 72 degrees BEYOND NOW R [place] -31 degrees BEYOND NOW T [place] 69 degrees BEYOND NOW 01/12/2024 10:1 6 PM CDT 01/13/2024 8:20 PM CDT Emily Guzman MD EKG ORD Performing Organization Address City/[facility]/ZIP Co de Phone Number [facility] NOW [place], [place] * MRSA/SA PCR (01/12/2024 10:07 PM CDT) MRSA DNA PCR Negative Negative 01/12/2024 11:33 PM CDT [facility] STAPHYLOCOCCUS AUREUS PCR Negative Negative 01/12/2024 11:33 PM CDT [facility] Other SPECIMEN FROM INTERNAL NOSE / Unknown Non-Blood / Unknown 01/12/2024 10:07 PM CDT 01/12/2024 10:13 PM CDT Narrative [facility] - 01/12/2024 11:33 PM CDT Test result does not preclude MRSA or SA nasal colonization. Chaparro Sneed DO MICROBIOLOGY Performing Organization Address City/[facility]/ZIP Co de Phone Number [facility] [address] [place] [address], * (ABNORMAL) Urine Culture (01/12/2024 10:07 PM CDT) CULTURE RESULT(A) 01/16/2024 6:58 AM CDT [facility] CULTURE 10,000-50,000 CFU/mL Proteus mirabilis 01/16/2024 6:58 AM CDT [facility] CULTURE 50,000-100,000 CFU/mL Danita albicans 01/16/2024 6:58 AM CDT [facility] Urine URINE SPECIMEN / Unknown Non-Blood / Unknown 01/12/2024 10:07 PM CDT 01/12/2024 10:13 PM CDT Narrative Organism Antibiotic Method Susceptibility Proteus mirabilis TRIMETHOPRIM/SULF <=1/19: S Proteus mirabilis AMPICILLIN <=2: S Proteus mirabilis CEFAZOLIN 4: I Proteus mirabilis CEFAZOLIN-UC 4: S Comment:Cefazolin-UC interpretations are for therapy of uncomplicated UTIs due to E.coli, K.pneumoniae, or P.mirablis. Cefazolin breakpoint is used as a surrogate to predict results for the oral agents - cefdinir, cefuroxime, and cephalexin, when used for therapy of uncomplicated UTIs due to E coli, K, pneumoniae, and P. mirabilis. The FDA recommends cefadroxil susceptibility can be deduced from cefazolin. Proteus mirabilis GENTAMICIN <=1: S Proteus mirabilis CEFTRIAXONE <=0.25: S Proteus mirabilis CEFTAZIDIME <=0.5: S Proteus mirabilis LEVOFLOXACIN <=0.12: S Proteus mirabilis CIPROFLOXACIN <=0.06: S Proteus mirabilis PIPERACILLIN/TAZO <=4: S Proteus mirabilis AMPICILLIN/SULBACTAM <=2: S Proteus mirabilis CEFEPIME <=0.12: S Proteus mirabilis MEROPENEM <=0.25: S Proteus mirabilis NITROFURANTOIN 128: R Emily Guzman MD MICROBIOL OGY [facility] [address] [place] [address], * Blood Culture (01/12/2024 9:40 PM CDT) Only the most recent of2 resultswithin the time period is included. CULTURE No Growth. 01/16/2024 11:23 PM CDT [facility] Blood BLOOD SPECIMEN / Unknown Venipuncture / Unknown 01/12/2024 9:40 PM CDT 01/12/2024 9:52 PM CDT Narrative [facility] - 01/16/2024 11:23 PM CDT Low volume blood culture received; possible false negative culture. Emily Guzman MD MICROBIOL OGY [facility] [address] [place] [address], [place] * (ABNORMAL) TROPONIN T(HS) ACUTE W/2HR REFLEX (01/12/2024 9:37 PM CDT) [facility] TROPONIN T HS 47(H) 6-10 ng/L ng/L 01/12/2024 10:16 PM CDT [facility] Blood BLOOD SPECIMEN / Unknown Non-Lab Venipuncture / Unknown 01/12/2024 9:37 PM CDT 01/12/2024 9:46 PM CDT Narrative [facility] - 01/12/2024 10:16 PM CDT hs-cTnT (Elecsys Troponin T Gen 5) concentration (s) above the sex-specific 99th percentile (16 ng/L or greater for males or 11 ng/L or greater for females) are indicative of myocardial injury. If initial hs-cTnT <=100 ng/L at presentation, a 0h/2h ABSOLUTE (ng/L) delta change (rising or falling) of >=10 ng/L suggests a significant change, whereas a 0h/2h delta change <=3 ng/L suggests no significant change. If initial hs-cTnT >100 ng/L at presentation, a 0h/2h/ RELATIVE (percent, %) delta change of 20% is suggested to distinguish patients with acute vs. chronic myocardial injury. There are multiple etiologies that can cause hs-cTnT increases above the 99th percentile (myocardial injury) other than acute myocardial infarction. Clinical context and careful clinical evaluation are critical for diagnosis and risk-stratification. The diagnosis of acute myocardial infarction requires a rising and/or falling pattern in hs-cTnT concentrations with at least one value above the sex-specific 99th percentile PLUS at least one of the following clinical criteria: ischemic symptoms, new or presumed new significant ST-T wave changes or new LBBB, development of pathological Q waves, imaging evidence of new loss of viable myocardium or new regional wall motion abnormality, or identification of intracoronary atherothrombosis or an acute angiographic culprit on coronary angiography. In appropriate low-risk patients with a non-ischemic electrocardiogram without active chest pain with a symptom onset >3-hours without recurrence, a single initial hs-cTnT<6 ng/L identifies patient with a very low risk in emergency department patient population. Emily Guzman MD CHEMISTRY [facility] [address] [place] [address], * (ABNORMAL) CBC WITH AUTO DIFFERENTIAL (01/12/2024 9:37 PM CDT) WHITE BLOOD COUNT 14.9(H) 4.5 - 11.0 thou/cu mm 01/12/2024 9:54 PM CDT [facility] RED BLOOD COUNT 3.61(L) 4.00 - 5.20 mil/cu mm 01/12/2024 9:54 PM CDT [facility] HEMOGLOBIN 10.5(L) 12.0 - 16.0 g/dL 01/12/2024 9:54 PM CDT [facility] HEMATOCRIT 32.6(L) 33.0 - 51.0 % 01/12/2024 9:54 PM CDT [facility] MCV 90 80 - 100 fL 01/12/2024 9:54 PM CDT [facility] MCH 29.1 26.0 - 34.0 pg 01/12/2024 9:54 PM CDT [facility] MCHC 32.2 32.0 - 36.0 g/dL 01/12/2024 9:54 PM CDT [facility] RDW 13.2 11.5 - 15.5 % 01/12/2024 9:54 PM CDT [facility] PLATELET COUNT 273 140 - 440 thou/cu mm 01/12/2024 9:54 PM CDT [facility] MPV 11.0 6.5 - 11.0 fL 01/12/2024 9:54 PM CDT [facility] NRBC 0.0 % 01/12/2024 9:54 PM CDT [facility] ABS NRBC 0.0 thou /cu mm 01/12/2024 9:54 PM CDT [facility] % NEUT 80.3 % 01/12/2024 9:54 PM CDT [facility] % LYMPH 9.6 % 01/12/2024 9:54 PM CDT [facility] % MONO 9.2 % 01/12/2024 9:54 PM CDT [facility] % EOS 0.1 % 01/12/2024 9:54 PM CDT [facility] % BASO 0.1 % 01/12/2024 9:54 PM CDT [facility] % IMMATURE GRAN (METAS,MYELOS,AK OS) 0.7 % 01/12/2024 9:54 PM CDT [facility] ABSOLUTE NEUTROPHILS 12.0(H) 1.7 - 7.0 thou/cu mm 01/12/2024 9:54 PM CDT [facility] ABSOLUTE LYMPHOCYTES 1.4 0.9 - 2.9 thou/cu mm 01/12/2024 9:54 PM CDT [facility] ABSOLUTE MONOCYTES 1.4(H) <0.9 thou/cu mm 01/12/2024 9:54 PM CDT [facility] ABSOLUTE EOSINOPHILS 0.0 <0.5 thou/cu mm 01/12/2024 9:54 PM CDT [facility] ABSOLUTE BASOPHILS 0.0 <0.3 thou/cu mm 01/12/2024 9:54 PM CDT [facility] ABSOLUTE IMMATURE GRANULOCYTES(MET ,MYELOS,PROS) 0.1 <0.3 thou/cu mm 01/12/2024 9:54 PM CDT [facility] Blood BLOOD SPECIMEN / Unknown Non-Lab Venipuncture / Unknown 01/12/2024 9:37 PM CDT 01/12/2024 9:46 PM CDT Emily Guzman MD HEMATOLOG Y Performing Organization Address [facility]/State/ZIP Co de Phone Number [facility] [address] [place] [address], * (ABNORMAL) BLOOD GAS,VENOUS (01/12/2024 9:37 PM CDT) PH, VENOUS 7.25(L) 7.32 - 7.43 01/12/2024 9:52 PM CDT [facility] PCO2, VENOUS 44 41 - 51 mmHg 01/12/2024 9:52 PM CDT [facility] PO2, VENOUS 48(H) 35 - 40 mmHg 01/12/2024 9:52 PM CDT [facility] HCO3,VENOUS 19(L) 22 - 29 mmol/L 01/12/2024 9:52 PM CDT [facility] BASE EXCESS, VENOUS, POCT -7.7(L) -2.0 - 3.0 01/12/2024 9:52 PM CDT [facility] O2 SATURATION, VENOUS 85(H) 70 - 75 % 01/12/2024 9:52 PM CDT [facility] INSPIRED O2 21 01/12/2024 9:52 PM CDT [facility] Comment:Unit of Measure: Lit ers (L) if <=20; Percent (%) if >20 PATIENT TEMPERATURE 36.9 Degrees C 01/12/2024 9:52 PM CDT [facility] Blood VENOUS BLOOD SPECIMEN / Unknown Non-Lab Venipuncture / Unknown 01/12/2024 9:37 PM CDT 01/12/2024 9:46 PM CDT Emily Guzman MD CHEMISTRY Performing Organization Address City/[facility] Co de Phone Number [facility] [address] [place] [address], * Protime - INR (01/12/2024 9:37 PM CDT) INR 1.0 <1.3 01/12/2024 9:56 PM CDT [facility] PROTIME 11.5 10.3 - 12.3 sec 01/12/2024 9:56 PM CDT [facility] Blood BLOOD SPECIMEN / Unknown Non-Lab Venipuncture / Unknown 01/12/2024 9:37 PM CDT 01/12/2024 9:46 PM CDT Narrative [facility] - 01/12/2024 9:56 PM CDT ?Therapeutic Range 2.0-3.0 for most anticoagulated patients 2.5-3.5 or 4.0 for high risk patients The INR is only used for patients on stable oral anticoagulant therapy. It makes no significant contribution to the diagnosis or treatment of patients whose Protime is prolonged for other reasons. INR results are increased when heparin levels exceed 1.0 U/mL, which corresponds to an aPTT >125 seconds if the patient is on UFH. Emily Guzman MD HEMATOLOG Y Performing Organization Address [facility] Co de Phone Number [facility] [address] [place] [address], * (ABNORMAL) HEMOGLOBIN A1C MONITORING (POCT) (01/12/2024 9:37 PM CDT) Only the most recent of2 resultswithin the time period is included. HEMOGLOBIN A1C MONITORING (POCT) 9.3(H) <=6.4 % 01/14/2024 10:29 AM CDT [facility] Blood BLOOD SPECIMEN / Unknown Non-Lab Venipuncture / Unknown 01/12/2024 9:37 PM CDT 01/12/2024 9:46 PM CDT Narrative [facility] - 01/14/2024 10:29 AM CDT ? (<=6.9%) ? Indicates good control ? (7.0% to 7.9%) ? Indicates fair control ? (>=8.0%) ? Indicates poor control ?? NOTE: ??These thresholds are guidelines and ?individual targets may vary. Falsely low levels may be seen with: Recent Transfusion, Recent Significant Blood Loss, Hemolytic Diseases, or Falsely elevated levels may be seen with: Untreated Anemias, Splenectomy ? Barbara Holcomb NP CHEMISTRY [facility] [address] [place] [address], * (ABNORMAL) Hepatic Function Panel (01/12/2024 9:37 PM CDT) ALBUMIN 3.2(L) 4.0 - 4.9 g/dL 01/12/2024 10:16 PM CDT [facility] PROTEIN,TOTAL 6.4 6.0 - 8.0 g/dL 01/12/2024 10:16 PM CDT [facility] BILIRUBIN,TOTAL 0.2 0.0 - 1.2 mg/dL 01/12/2024 10:16 PM CDT [facility] BILIRUBIN,DIRECT <0.2 0.0 - 0.3 mg/dL 01/12/2024 10:16 PM CDT [facility] BILIRUBIN,INDIRE CT 01/12/2024 10:16 PM CDT [facility] Comment:Unable to calculate, Direct Bili <0.2 ALK PHOSPHATASE 122(H) 35 - 104 IU/L 01/12/2024 10:16 PM CDT [facility] ALT (SGPT) 21 10 - 35 IU/L 01/12/2024 10:16 PM CDT [facility] AST (SGOT) 20 10 - 35 IU/L 01/12/2024 10:16 PM CDT [facility] Blood BLOOD SPECIMEN / Unknown Non-Lab Venipuncture / Unknown 01/12/2024 9:37 PM CDT 01/12/2024 9:46 PM CDT Emily Guzman MD CHEMISTRY [facility] [address] [place] [address], * SCAN-CARDIAC STRIP (01/12/2024 9:20 PM CDT) Scanner OTHER * XR MAMMO BILAT SCREENING (04/28/2022 2:04 [...] health care provider. XR MAMMO BILAT SCREENING [[id number]] CLINICAL HISTORY: ??This is an asymptomatic 61 y.o. patient. INDICATION FOR EXAM: Mammogram Screening. TECHNIQUE: CC & MLO views were obtained. ??This study was evaluated with the assistance of Computer-Aided Detection. COMPARISON FILM: Yes 03/02/18 [employer] 07/26/13 [facility] FINDINGS: ??The breasts are extremely dense, which lowers the sensitivity of mammography. There are no dominant masses, suspicious micro calcifications or areas of architectural distortion. Shania Montiel MD MAMMO * LIPID PANEL W REFLEX MEASURED LDL (04/28/2022 1:44 PM CDT) CHOLESTEROL,TOTAL 139 100 - 199 mg/dL 04/30/2022 6:25 PM CDT [facility] TRIGLYCERIDES 141 <150 mg/dL 04/30/2022 6:25 PM CDT [facility] HDL CHOLESTEROL 42 >40 mg/dL 6:25 PM CDT [facility] NON-HDL CHOLESTEROL 97 <145 mg/dl 04/30/2022 6:25 PM CDT [facility] CHOL/HDL RATIO 3.31 <4.50 04/30/2022 6:25 PM CDT [facility] LDL CHOLESTEROL 69 <=130 mg/dL 04/30/2022 6:25 PM CDT [facility] VLDL CHOLESTEROL 28 <=30 mg/dL 04/30/2022 6:25 PM CDT [facility] PROVIDER ORDERED STATUS RANDOM 04/30/2022 6:25 PM CDT [facility] Blood BLOOD SPECIMEN / Unknown Venipuncture / Unknown 04/28/2022 1:44 PM CDT 04/28/2022 1:45 PM CDT Shania Montiel MD CHEMISTRY [facility] [address] [place] [address], * FECAL DNA (AKA COLOGUARD) (11/10/2021 1:00 PM CDT) Shania Montiel MD COMMUNICATION ORD * ANTI HCV [[id number]] (02/16/2018 4:20 PM CDT) HEPATITIS C ANTIBODY Non-React alex Non-React alex 02/17/2018 2:48 PM CDT [facility] Comment:Antibodies to HCV no t detected; does not exclude the possibility of exposure to HCV. Blood BLOOD SPECIMEN / Unknown Butterfly / Unknown 02/16/2018 4:20 PM CDT 02/16/2018 4:20 PM CDT Coleman Plata MD SEND OUTS [facility] [address] [place] [address], * HIV 1&2 TODAY (07/21/2015 9:40 AM CLINICAL TRIAL MANAGER) Pathologist [facility] HIV-1/HIV-2 ANTIBODY Non-Reacti ve Non-Reacti ve 07/21/2015 10:31 AM CLINICAL TRIAL MANAGER [facility] Blood specimen (specimen) BLOOD SPECIMEN / Unknown Venipuncture / Unknown 07/21/2015 9:40 AM CLINICAL TRIAL MANAGER 07/21/2015 9:47 AM CLINICAL TRIAL MANAGER Narrative [facility] - 07/21/2015 10:31 AM CLINICAL TRIAL MANAGER HIV-1 p24 and HIV-1/HIV-2 Ab not detected Kait Morales DO SEND OUTS [facility] [address] [place] [address], * MOTH PROOFER THIN PREP PAP SCREEN IMAGED (08/17/2012 4:02 PM CLINICAL TRIAL MANAGER) Pathologist [facility] CYTOLOGY CYTOPATHOLOGY REPORT [facility] Status: Final Status ?[id number] CLINICAL INFORMATION Last Date of LMP ? :07/03/2012 Last Pap Date ?:02/01/2011 Last Pap Result ?:NIL ABN [place]/Bx Past 5 YRS :None Hormone Usage ?:BCP/OCP/Patch/R ing Menstrual Status ? :Regular Periods [place]/Bx done today ? :No Additional Information :None [...] COLLECTED:08/17/12 ? ACCESSIONED: ??08/18/12 ?? SIGNED: ??08/21/12 [facility] PAP [place] CODE NIL [facility] Tissue specimen (specimen) (Cervical/Vagina l) 08/17/2012 4:02 PM CLINICAL TRIAL MANAGER 08/17/2012 4:00 PM CLINICAL TRIAL MANAGER Coleman Plata MD PATHOLOGY/CYTOLOGY [facility] [place]NAL ZIP [id number] [address] [place] [address] from Last 3 Months or Most Recently Relevant to Health Maintenance Additional Health Concerns Infection Onset Date Last Indicated MRSA Comment:Order Contact Precautions. 01/17/24 Not eligible to d/c precautions, pt admitted with chronic L heel wound. Nares surveillance cultures needed to clear patient if <12 months since positive culture. If >12 months since positive culture, precautions can be discontinued if patient has no MRSA risk factors. #1 +MRSA 12/28/23 urine, per 01/13/24 pharmacy note: Vancomycin for sepsis with hx of MRSA in the Urine earlier this year (per report from [facility], not available in CareEverywhere), 04/19/18 L cheek abscess exclusions for contact precaution discontinuation (if > 12 months since positive culture): resides in acute/retirement care, receiving hemodialysis, has chronic open wounds/skin damage, has long-term percutaneous indwelling medical devices Exclusions for nares collection (if <12 months since positive culture) include all of the previous exclusions plus patients on antibiotics 7 days prior to collection 01/17/2024 01/17/2024 Advance Directives * Full Code (Latest Code Status on File) Date Activated Date Inactivated Comments 01/12/2024 9:15 PM 01/17/2024 7:35 PM Question Answer Comments Code Status Discussion: Reviewed Preferences * Full Code Date Activated Date Inactivated Comments 01/02/2019 1:28 AM 01/04/2019 4:49 PM Question Answer Comments Code Status Discussion: Not Discussed * Full Code Date Activated Date Inactivated Comments 06/10/2017 10:37 PM 06/16/2017 3:36 PM * Full Code Date Activated Date Inactivated Comments 07/18/2015 4:38 PM 07/23/2015 3:50 PM * Full Code Date Activated Date Inactivated Comments 07/12/2012 8:01 PM 07/15/2012 6:55 PM Care Teams Managed Care Specialist Relationship Specialty Start Date End Date Barbara Valentin DO [address] [place] [address] PCP - General Family Practice 11/15/22 Julio Ibrahim MD [address] [facility] [address] [place] [address] Surgery - Orthopedics 02/01/11 Chuy Doss MD [address] [facility] [address] [place] [address] Surgery - Vascular 02/01/11 Markel Strong MD [address] [place] [address] Provider Family Practice 08/08/20 Nikolai Ibarra MD [address] [facility] [address] [place] [address] Endocrinology 09/07/22 [facility] [place] [address] [place] [address] 01/17/24 Suad Ng/ [employer] Business Office Coordinator 07/14/17 [facility] Home Health Nurse 07/01/17 [facility] Services Home Health Aide 07/14/17 [facility] Homicide Investigator/ Ally Morillom [address] [place] [address] Business Office Coordinator 07/07/17
--- OUTSIDE RECORDS SUMMARY | 2024-01-18 19:09 | XMS_ITS | Encounter Summary ---
Author Organization [facility] Address [address] [place] [address] Care Team Providers Care Four H Agent Name Role Phone Barbara Valentin DO Primary Care Provider Kevin zepeda Reason for Visit * Reason Comments CKD New Patient * Nephrology Services (Urgent) - Closed Specialty Diagnoses / Procedures Referred By Contac t Referred To Contact Nephrology Diagnoses Chronic kidney disease stage 4 (HCC) Barbara Valentin DO [address] [place] [address] Elian Humphrey MD [address] [place] [address] Referral ID Status Reason Start Date Expiration Date Visits Re quested Visits Authorized [id number] Closed 09/22/2023 09/21/2024 1 1 Encounter Details Date Type Department Care Team (Latest Contact Info) Description 11/10/2023 3:30 PM EDT Office Visit [facility] [address] [place] [address] Gabriel Hicks MD [address] [place] [address] Chronic kidney disease, stage 4 [...] Hicks/RAFAEL Acosta Welcome to [facility] Although we are experts in the [...] in caring for renal patients. If your Stump Shooter deems it appropriate, you will be scheduled [...] healthy, so we do have a Renal Division Chief to help you with this. We encourage [...] let them know that you see a horse race timer for your kidney disease. Ask that they contact your horse race timer before this type of test is scheduled. [...] Doctors, Advanced Practice Providers, nurses, and Renal Division Chief are here to provide you with the best renal care. We want you to feel free to call us when you have questions or concerns. To call the nurse at your horse race timer's office, please see the address and telephone number listed on your After Visit Summary. Thank you, The Physicians and staff at [facility] UNDERSTANDING YOUR BLOOD PRESSURE & LAB [...] Mikayla Kuhn Date of : 1960 Chart: [id number] PCP: Barbara Valentin DO Referring Provider: Barbara [...] her close friend who also is her CATERING ADMINISTRATIVE ASSISTANT. No recent illnesses or hospitalizations. Tolerating her [...] 05/12/2024). Gabriel Hicks MD [facility] The following portions of the patient's chart [...] MG/DOSE powder Yuni Olea MD Inhale 1 [place] into affected nostril(s) each time if needed [...] documented in this encounter Plan of Treatment Upcoming Encounters Date Type Department Care Team (Late st Contact Info) Description 02/01/2024 11:00 AM EDT Office Visit [facility] [place] [address] [place] [phone] Sandy Jimenez, SALES ANALYST-COMMUNITY LIVING COACH [address] [place] [phone] Scheduled Orders Name Type Priority Associated Diagnoses [...] disease documented in this encounter Care Teams Four H Agent Relationship Specialty Start Date End Date Barbara Valent[place] [address] PCP - General Family Medicine 09/22/23 documented as of this encounter
--- OUTSIDE RECORDS SUMMARY | 2024-01-18 19:09 | XMS_ITS | Clinical Summary ---
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); Chronic diastolic congestive heart failure (HCC); Secondary hyperparathyroidism of renal origin (HCC); Anemia in chronic kidney disease 11/10/2023 Documentation Only [facility] [place] [place] [address] Ericka Hurst from Last 3 Months Immunizations [...] 11/10/2023 3:52 PM CDT Plan of Treatment Upcoming Encounters Date Type Department Care Team (Late st Contact Info) Description 02/01/2024 11:00 AM EDT Office Visit [facility] [place] [address] [facility] [address] [place] [phone] Sandy Jimenez, SCIENCE TEACHER-CVICU NURSE [address] [facility] [address] [place] [phone] Health Maintenance Due Date Last Done Comments [...] age to complete this topic Care Teams Zipper Trimmer Relationship Specialty Start Date End Date Barbara Valentin DO [address] [place] [address] PCP - General Family Medicine 09/22/23
--- OUTSIDE RECORDS SUMMARY | 2024-01-18 19:09 | XMS_ITS | Encounter Summary ---
Author Organization [facility] [place] Address [address] [place] [address] [place] [address] Care Team Providers Care Director Integrated Name Role Phone Barbara Valentin DO Primary Care Provider Kevin zepeda Encounter Details Date Type Department Care Team (Late st Contact Info) Description 09/23/2023 Office Communication [facility] [place] [address] [place] [address] Barbara Valentin DO [address] [place] [address] Social History Tobacco Use Types Packs/Day Years [...] EDT Office Visit [facility] [place] [address] [place] [phone] Sandy Jimenez, MARINE DIVER-OUTSIDE SALES ACCOUNT EXECUTIVE [address] [place] [phone] documented as of this encounter Visit Diagnoses Not on filedocumented in this encounter Care Teams Director Integrated Relationship Specialty Start Date End Date Barbara Valentin DO [place] [address] PCP - General Family Medicine 09/22/23 documented as of this encounter
--- OUTSIDE RECORDS SUMMARY | 2024-01-18 19:09 | XMS_ITS | Encounter Summary ---
Author Organization [facility] Address [address] [place] [address] Care Team Providers Care Talent Assistant Name Role Phone Barbara Valentin Primary Care Provider Kevin zepeda Encounter Details Date Type Department Care Team (Late st Contact Info) Description 11/10/2023 Documentation Only [facility] [place] [address] Dave Hurst [address] [facility] [address] [place] [address] Social History Tobacco Use Types [...] as of this encounter Plan of Treatment Upcoming Encounters Date Type Department Care Team (Late st Contact Info) Description 02/01/2024 11:00 AM EDT Office Visit [facility] [address] [place] [address] Sandy Jimenez, RELAY ENGINEER-METAL MOULDER [address] [place] [address] documented as of this encounter Procedures Procedure [...] 09/21/2023 Historical Provider LAB BLOOD ORDERAB LES Performing Organization Address City/State/[facility] Co de Phone Number [facility] * [...] Historical Provider MD LAB BLOOD ORDERAB LES BESSY * (ABNORMAL) Albumin/Creatinine in Urine (05/19/2023) Pathologist [facility] Albumin, Urine 55.6 mg/L [facility] Creatinine, Urine Random 0.53 g/L [facility] Alb/Creat Ratio, Ur 104.9(H) mg/g Creat [facility] Urine (Urine) 05/19/2023 Historical Provider LAB URINE ORDERAB LES BESSY * (ABNORMAL) CBC (02/28/2023) Pathologist [facility] WBC 4.6 K/uL [facility] Red Blood Cell Count 3.88(L) [facility] Hemoglobin 11.5(L) g/dL [facility] Hematocrit 36.6 % [facility] MCV 94 [facility] MCH 29.6 [facility] MCHC 31.4(L) [facility] RDW 13.7 [facility] Platelet Count 233 [facility] MPV 10.7 [facility] Blood (Blood, Venous) 02/28/2023 Historical Provider LAB BLOOD ORDERAB LES BESSY * (ABNORMAL) Comprehensive Metabolic Panel (CMP) (11/23/2022) [...] Historical Provider MD LAB BLOOD ORDERAB LES [facility] documented in this encounter Visit Diagnoses Not on filedocumented in this encounter Care Teams Talent Assistant Relationship Specialty Start Date End Date Barbara Valentin DO [address] [place] [address] PCP - General Family Medicine 09/22/23 documented as of this encounter
--- OUTSIDE RECORDS SUMMARY | 2024-01-18 19:09 | XMS_ITS | Encounter Summary ---
Author Organization [facility] Address [address] [place] [address] Care Team Providers Care Client Reporting Associate Name Role Phone Barbara Valentin DO Primary Care Provider Kevin zepeda Encounter Details Date Type Department Care Team (Late st Contact Info) Description 09/22/2023 Documentation Only [facility] [address] [facility] [address] [place] [phone] No, Pcp Social History Tobacco Use Types [...] AM EDT Office Visit [facility] [address] [place] [phone] Sandy Jimenez, OPERATING ROOM TECH-SUPERVISOR BOARDING [address] [place] [phone] documented as of this encounter Visit Diagnoses Not on filedocumented in this encounter Care Teams Client Reporting Associate Relationship Specialty Start Date End Date Barbara Valentin DO [address] [place] [address] PCP - General Family Medicine 09/22/23 documented as of this encounter
== END 2024-01-12 12:45 | disposition home or self-care (01) ==
LOC: AMB 01-18 19:06
PROVIDERS: PCP Family Medicine; Visit Provider Emergency Medicine
DX: E11.65 Type 2 diabetes mellitus with hyperglycemia (principal); R41.82 Altered mental status, unspecified
CPT/HCPCS: A0425; A0427

== ENCOUNTER 2024-01-12 13:19 | Emergency (ER) | payer OTHER, SELFPAY ==
[2024-01-12] VITALS (112 sets, daily range): BP systolic 66–173; BP diastolic 12–92; PULSE 77–103; RESP 16; TEMP 36.1; O2SAT 84–100; BMI 47.6
[2024-01-12] MEDS: INSULIN REGULAR, HUMAN 100 UNIT/ML VIAL 10 UNIT SUBCUT (14:00)
[2024-01-12] MEDS: 0.9 % SODIUM CHLORIDE 1000 ml 1,000 ML 6000 ML IV (14:00)
--- OUTSIDE RECORDS SUMMARY | 2024-01-12 14:06 | XMS_ITS | Encounter Summary ---
Author Organization [facility] Address [address] [place] [address] Care Team Providers Care Vp Transportation Name Role Phone Barbara Valentin Primary Care Provider Kevin zepeda Encounter Details Date Type Department Care Team (Late st Contact Info) Description 11/10/2023 Documentation Only [facility] [place] [facility] [place] [address] Dave Hurst [address] [place] [address] Social History Tobacco Use Types [...] LAB BLOOD ORDERAB LES Performing Organization Address [facility] Co de Phone Number ALLINA * (ABNORMAL) [...] LAB BLOOD ORDERAB LES Performing Organization Address [facility]/ZIP Co de Phone Number ALLINA * (ABNORMAL) [...] LAB BLOOD ORDERAB LES Performing Organization Address [facility] Co de Phone Number ALLINA * (ABNORMAL) [...] LAB BLOOD ORDERAB LES Performing Organization Address City/[facility]/ZIP Co de Phone Number ALLINA documented in this encounter Visit Diagnoses Not on filedocumented in this encounter Care Teams Vp Transportation Relationship Specialty Start Date End Date Barbara Valentin DO [address] [place] [address] PCP - General Family Medicine 09/22/23 documented as of this encounter
--- OUTSIDE RECORDS SUMMARY | 2024-01-12 14:06 | XMS_ITS | Encounter Summary ---
Author Organization [facility] Address [address] [place] [address] Care Team Providers Care Solar Sales Name Role Phone Barbara Valentin DO Primary Care Provider Kevin zepeda Encounter Details Date Type Department Care Team (Late st Contact Info) Description 09/23/2023 Office Communication [facility] [address] [place] [address] Barbara Valentin DO [address] [place] [address] Social History Tobacco Use Types Packs/Day Years [...] on filedocumented in this encounter Care Teams Solar Sales Relationship Specialty Start Date End Date Barbara Valentin DO [address] [place] [address] PCP - General Family Medicine 09/22/23 documented as of this encounter
--- OUTSIDE RECORDS SUMMARY | 2024-01-12 14:06 | XMS_ITS | Encounter Summary ---
Author Organization [facility] Address [address] [place] [address] Care Team Providers Care Bottle Cleaner Name Role Phone Barbara Valentin DO Primary Care Provider Kevin zepeda Reason for Visit * Reason Comments CKD New Patient * Nephrology Services (Urgent) - Closed Specialty Diagnoses / Procedures Referred By Contac t Referred To Contact Nephrology Diagnoses Chronic kidney disease stage 4 (HCC) Barbara Valentin DO [address] [place] [address] Elian Humphrey MD [address] [place] [address] Referral ID Status Reason Start Date Expiration Date Visits Re quested Visits Authorized [id number] Closed 09/22/2023 09/21/2024 1 1 Encounter Details Date Type Department Care Team (Latest Contact Info) Description 11/10/2023 3:30 PM EDT Office Visit [facility] [address] [place] [address] Gabriel Hicks MD [address] [place] [address] Chronic kidney disease, stage 4 [...] Hicks/RAFAEL Acosta Welcome to [facility] Although we are experts in the [...] in caring for renal patients. If your Feather Baler deems it appropriate, you will be scheduled [...] healthy, so we do have a Renal Breast Buffer to help you with this. We encourage [...] let them know that you see a resp therapist for your kidney disease. Ask that they contact your resp therapist before this type of test is scheduled. [...] Doctors, Advanced Practice Providers, nurses, and Renal Breast Buffer are here to provide you with the best renal care. We want you to feel free to call us when you have questions or concerns. To call the nurse at your resp therapist's office, please see the address and telephone number listed on your After Visit Summary. Thank you, The Physicians and staff at [facility] UNDERSTANDING YOUR BLOOD PRESSURE & LAB [...] Mikayla Kuhn Date of : 1960 Chart: [id number] PCP: Barbara Valnetin DO Referring Provider: Barbara Valentin Date of [...] her close friend who also is her TELEPHONER. No recent illnesses or hospitalizations. Tolerating her [...] 05/12/2024). Gabriel Hicks MD [facility] The following portions of the patient's chart [...] MG/DOSE powder Yuni Olea MD Inhale 1 [place] into affected nostril(s) each time if needed [...] disease documented in this encounter Care Teams Bottle Cleaner Relationship Specialty Start Date End Date Barbara [place] [address] PCP - General Family Medicine 09/22/23 documented as of this encounter
--- OUTSIDE RECORDS SUMMARY | 2024-01-12 14:06 | XMS_ITS | Clinical Summary ---
Author Organization [facility] Address [place], [place] [address] Care Team Providers Care Sales Trader Name Role Phone Julio Ibrahim MD Unavailable Chuy Doss MD Unavailable [phone] Markel Strong MD Unavailable [phone] Nikolai Ibarra MD Unavailable [phone] Barbara Valentin DO Primary Care Provider [...] Each 03/02/20 21 Active blood sugar diagnostic (Audio/Video Technician Express Test Strip) stripIndications:U ncontrolled type 1 [...] mellitus at risk of hypoglycemia Inhale 1 [place] into affected nostril(s) each time if needed [...] nasal solution (FLONASE)Indicatio ns:Nasal congestion Inhale 1 [place] into affected nostril(s) once daily. Inhale 1 [place] in the nostril(s) once daily. 16 g [...] continuous glucose monitor READER (FreeStyle Elli 2 [place])Indications :Type 1 diabetes mellitus with other specified complication (HC) To be used to read blood sugars per consumer loan manager's directions. 1 Each 05/19/20 Active blood-glucose meterIndications:T [...] be used to read blood sugars per consumer loan manager's directions. 6 Each 3 09/06/19 24 Active [...] bedtime. 90 Tablet 3 09/21/19 24 Active cyanocobalamin (VITAMIN B12) 1,000 mcg [...] INSULIN ADMINISTRATION FOUR TIMES DAILY 400 Each 12/08/19 24 Active Diaper,Brief, Adult,Disposable (Per-Fit Underwear)Indicati ons:Urinary incontinence, unspecified type ADULT PULL UPS XL THREE TIMES A DAY DIRECTED 96 Each 12/10/19 24 Active insulin lispro (HumaLOG U-100 Insulin) [...] bedtime. Product desired: LANTUS SOLOSTAR 9 mL 12/23/19 24 Active pregabalin (LYRICA) 100 mg capsuleIndications :Chronic pain syndrome TAKE TWO CAPSULES (200MG) BY MOUTH EVERY MORNING AND ONE CAPSULE IN THE EVENING WITH THE (50MG) TO TOTAL 150MG 90 Capsule 12/30/19 24 Active cetirizine (ZYRTEC) 5 mg tabletIndications: Wheezing Take 1 Tablet (5 mg) by mouth once daily. 90 Tablet 12/29/19 24 Active buprenorphine 7.5 mcg/hr (Butrans) 7.5 mcg/hour ptwkIndications:Ch ronic pain syndrome,Encounter for therapeutic drug monitoring,Neuropa thy due to secondary diabetes (HC) Apply 1 Patch on dry, clean, hairless skin once weekly. New dose. 7.5 mcg. 4 Patch 3 01/06/20 24 Active oxyCODONE (ROXICODONE) 5 mg immediate release tabletIndications: Chronic pain syndrome,Neuropath y due to secondary diabetes (HC) Si p.o. B.I.D. / PRN For O.A. pain or Diabetic P.N. Pain ; max: 2 a day. Use dates: 01/22/24-02/20/24 60 Tablet 01/19/20 Active cetirizine (ZYRTEC) 5 mg tabletIndications: Wheezing [...] 3 09/21/19 24 024 Discontinued(*M edication adjustment) buprenorphine 5 mcg/hr (BUTRANS) 5 mcg/hour transdermal patchIndications:N europathy due to secondary diabetes (HC),Type 1 diabetes mellitus with foot ulcer (CODE) (HC) Apply 1 Patch on dry, clean, hairless skin once weekly. 4 Patch 3 09/27/19 24 024 Discontinued(*M edication adjustment) insulin lispro [...] Use dates: 12/23/23-01/21/24 60 Tablet 12/20/19 24 024 Discontinued(Re order (E-cancel not sent)) [...] substance agreement signed - 10/07/23 10/07/2023 Overview: [facility] [place] [place] .................... 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 care (current) use of anticoagulants 11/27/2013 12/28/2013 Anticoagulation [...] Encounters Date Type Department Care Team Description 01/09/2024 Refill [facility] [address] [place] [address] Barbie Barbara Patricia, DO Refill Request (Fluoxetine) 01/09/2024 Refill [facility] [address] [place] [address] Elian Humphrey MD Refill Request (Torsemide) 01/06/2024 4:00 PM CDT Office Visit [facility] [address] [place] [address] Toshia Hooks NP Follow Up; Pain (Multi source; was told by her Fur Feeder she can ot use OTC Voltaren gel., which had been helping her O.A. pain (hands; wrists; shoulders; ) ) 01/06/2024 Travel 01/02/2024 Telephone [facility] [address] [place] [address] Sir Valentini Patricia, DO Follow Up 12/27/2023 Refill [facility] [address] [place] [address] Barbie Barbara Patricia, DO Refill Request (Pregabalin, Cetirizine) 12/23/2023 2:35 PM CDT Office Visit [facility] [address] [place] [address] Barbie Barbara Patricia, DO Diabetes (3 month check, labs); Rash (Rash under breasts? ) 12/23/2023 Travel 12/20/2023 Refill [facility] [address] [place] [address] Barbie Barbara Patricia, DO Refill Request (Humalog Kwikpen Insulin) 12/16/2023 Refill [facility] [address] [place] [address] Toshia Hooks NP Refill Request (Patient son called requesting oxycodone 5 mg at [facility].////) 12/15/2023 Telephone [facility] [address] [place] [address] Saúlqra Barbara Patricia, DO Lab 12/08/2023 Refill [facility] [address] [place] [address] Shaqra, Barbara Patricia, DO Refill Request (Ulticare Pen Needle, Per-fit Underwear) 12/07/2023 Refill [facility] [address] [place] [address] Shaqra, Barbara Patricia, DO Refill Request (Ulticare Pen Needle) 11/29/2023 Telephone [facility] [address] [place] [address] Shaqra, Barbara Patricia, DO Referral 11/29/2023 Refill [facility] [address] [place] [address] Shaqra, Barbara Patricia, DO Refill Request (Cholecalciferol) 11/18/2023 Refill [facility] [address] [place] [address] Toshia Hooks NP Refill Request (oxycodone 5 mg at [facility]) 11/17/2023 Telephone [facility] [address] [place] [address] Shaqra, Barbara Patricia, DO Questions (Vish rod R.N. trimming caser with [facility] has some questions for pcp) 11/15/2023 Refill [facility] [address] [place] [address] Shaqra, Barbara Patricia, DO Refill Request (Levothyroxine, Fluoxetine) 11/11/2023 Telephone [facility] [address] [place] [address] Barbara Valentin, DO questions and concerns (vish jennings R.N. called in with questions and concerns for PCP) 10/26/2023 Telephone [facility] [address] [place] [address] Barbara Valentin, DO Medication Management 10/18/2023 Refill [facility] [address] [place] [address] Toshia Hooks NP Refill Request from Last 3 Months Immunizations [...] years) 05/06/20 14,05/17/2013,03/20/2012,2010,05/06/2010,03/19/2009,05/06/2008,1 ,05/11/2006,04/29/2005, 004,06/13/2003 Influenza, IIV4 04/28/2022, 1,05/18/2019,2017,04/06/2017 Influenza, IIV4 (=>6mos) MDV 03/18/2020,04/06/20 17 Pneumococcal [...] Sign Reading Time Taken Comments Blood Pressure 170/75 01/06/2024 3:56 PM CDT Pulse 67 01/06/2024 3:56 PM CDT Temperature 36.8 ??C (98.2 ??F) 08/24/2022 2:38 PM CS T Respiratory Rate 14 08/24/2022 2:38 PM FAUCET POLISHER Oxygen Saturation 93% 01/06/2024 3:56 PM CDT Inhaled Oxygen Concentration - - Weight 96.7 kg (213 lb 3.2 oz) 02/28/2023 3:16 P M CDT Height 152.4 cm (5') 01/02/2019 8:57 PM CDT Body Mass Index 41.64 01/02/2019 8:57 PM CDT Plan of Treatment Upcoming Encounters Date Type Department Care Team (Late st Contact Info) Description 03/26/2024 3:25 PM CDT Office Visit [facility] [address] [facility] [address] Barbara Valentin, DO [address] [place] [address] Health Maintenance Due Date Last Done Comments [...] 03/18/2020, Additional history exists Fecal testing sDNA-FIT (Lorraine guard) for age 45-75 11/10/2024 11/10/2021 Pneumococcal series for age 6-64 (3 of 3 - PPSV23 or PCV20) 2026 08/17/2016, 08/14/2014, 07/04/2005, Additional history exists Lipids for age 45-75 04/28/2027 04/28/2022, 08/17/2019, 08/31/2018, Additional history exists Tdap Completed 08/25/2010 HIV for age 15-65 Completed 07/21/2015 Hepatitis C screening for ag e 18-79 Completed 02/16/2018 Medical Devices Implanted Type Area Manager Highway Device Identifier Shelf Expiration Date Model / Serial / Lot [id number] loderm 2x12mm [[id number]] Implanted:Qty: 1 on 08/08/2008 at [facility] Explanted:at [facility] (Quantity not on file) Stomach Sanako [id number]# / [id number] / Stem Compnt Primary 8mm Mini - [id number] Implanted:Qty: 1 on 03/17/2011 at [facility] Right: Shoulder BIOMET [id number]# / / [id number] Head Hum Bio-Mod [id number] - [id number] Implanted:Qty: 1 on 03/17/2011 at [facility] Right: Shoulder BIOMET [id number]# / / [id number] Base Glenoid Hybrid 4mm Sm - [id number] Implanted:Qty: 1 on 03/17/2011 at [facility] Right: Shoulder BIOMET [id number]# / / [id number] Cmnt 1/2 Dosehowmedica - [id number] Implanted:Qty: 1 on 03/17/2011 at [facility] Right: Shoulder [employer] 6188-- 0# / / [id number] Post Glenoid Hybrid Regenerex - [id number] Implanted:Qty: 1 on 03/17/2011 at [facility] Right: Shoulder BIOMET [id number] # / / [id number] Head Humeral 44x15 Co Cr Biomodular - [id number] Implanted:Qty: 1 on 07/12/2012 at [facility] Left: Shoulder BIOMET [id number]# / / [id number] Shoulder Stem Implanted:Qty: 1 on 07/12/2012 at [facility] Left: Shoulder [id number] / / [id number] Description:SHOULDER STEM Cmnt Bone 1/2 Dosehowmedica - [id number] Implanted:Qty: 1 on 07/12/2012 at [facility] Left: Shoulder [employer] 6188-- 0# / / [id number] Post Glenoid Hybrid Regenerex - [id number] Implanted:Qty: 1 on 07/12/2012 at [facility] Left: Shoulder BIOMET [id number] # / / [id number] Base Glenoid Hybrid 4mm Sm - [id number] Implanted:Qty: 1 on 07/12/2012 at [facility] Left: Shoulder BIOMET [id number]# / / [id number] Procedures Procedure Name Priority Date/Time Associated Diagnosis Comments HEMOGLOBIN A1C Routine 12/23/2023 2:53 PM CDT Type 1 diabetes mellitus with hyperglycemia (HC) XR MAMMO BILAT SCREENING Routine 04/28/2022 [...] HIV 1/2 Add On 07/21/2015 9:40 AM FAUCET POLISHER PLASTER PATTERN CASTER THIN PREP PAP SCREEN IMAGED Routine 08/17/2012 4:02 PM FAUCET POLISHER Screening for malignant neoplasm of the cervix from Last 3 Months or Most Recently Relevant to Health Maintenance Results * (ABNORMAL) HEMOGLOBIN A1C MONITORING (POCT) (12/23/2023 2:53 PM CDT) HEMOGLOBIN A1C MONITORING (POCT) 9.1(H) <=6.4 % 12/23/2023 3:04 PM CDT [facility] Blood BLOOD SPECIMEN / Unknown Venipuncture / Unknown 12/23/2023 2:53 PM CDT 12/23/2023 2:53 PM CDT Narrative [facility] - 12/23/2023 3:04 PM CDT ? (<=6.9%) [...] Anemias, Splenectomy ? Barbara Valentin DO CHEMISTRY [facility] [address] [place] [address], * XR MAMMO BILAT SCREENING (04/28/2022 2:04 [...] health care provider. XR MAMMO BILAT SCREENING [[id number]] CLINICAL HISTORY: ??This is an asymptomatic 61 y.o. patient. INDICATION FOR EXAM: Mammogram Screening. TECHNIQUE: CC & MLO views were obtained. ??This study was evaluated with the assistance of Computer-Aided Detection. COMPARISON FILM: Yes 03/02/18 [facility] [employer] 07/26/13 [facility] FINDINGS: ??The breasts are extremely dense, which lowers the sensitivity of mammography. There are no dominant masses, suspicious micro calcifications or areas of architectural distortion. Shania Montiel MD MAMMO * LIPID PANEL W REFLEX MEASURED LDL (04/28/2022 1:44 PM CDT) CHOLESTEROL,TOTAL 139 100 - 199 mg/dL 04/30/2022 6:25 PM CDT [facility] TRIGLYCERIDES 141 <150 mg/dL 04/30/2022 6:25 PM CDT [facility] HDL CHOLESTEROL 42 >40 [...] Shania Montiel MD CHEMISTRY Performing Organization Address City/[facility]/ZIP Co de Phone Number [facility] [address] [place] [address], [place] * FECAL DNA (AKA COLOGUARD) (11/10/2021 1:00 PM CDT) Shania Montiel MD COMMUNICATION ORD * ANTI HCV [[id number]] (02/16/2018 4:20 PM CDT) HEPATITIS C ANTIBODY Non-React alex Non-React alex 02/17/2018 2:48 PM CDT [facility] Comment:Antibodies to HCV no t detected; does not exclude the possibility of exposure to HCV. Blood BLOOD SPECIMEN / Unknown Butterfly / Unknown 02/16/2018 4:20 PM CDT 02/16/2018 4:20 PM CDT Coleman Plata MD SEND OUTS [facility] [address] [place] [address], [place] * HIV 1&2 TODAY (07/21/2015 9:40 AM FAUCET POLISHER) HIV-1/HIV-2 ANTIBODY Non-Reacti ve Non-Reacti ve 07/21/2015 10:31 AM FAUCET POLISHER [facility] Blood specimen (specimen) BLOOD SPECIMEN / Unknown Venipuncture / Unknown 07/21/2015 9:40 AM FAUCET POLISHER 07/21/2015 9:47 AM FAUCET POLISHER Narrative [facility] - 07/21/2015 10:31 AM FAUCET POLISHER HIV-1 p24 and HIV-1/HIV-2 Ab not detected Kait Morales DO SEND OUTS [facility] [address] [place] [address], * PLASTER PATTERN CASTER THIN PREP PAP SCREEN IMAGED (08/17/2012 4:02 PM FAUCET POLISHER) Pathologist [facility] CYTOLOGY CYTOPATHOLOGY REPORT [facility] Status: Final Status ?[id number] CLINICAL INFORMATION Last Date of LMP ? :07/03/2012 Last Pap Date ?:02/01/2011 Last Pap Result ?:NIL ABN [place]/Bx Past 5 YRS :None Hormone Usage ?:BCP/OCP/Patch/R ing Menstrual Status ? :Regular Periods [place]/Bx done today ? :No Additional Information :None [...] COLLECTED:08/17/12 ? ACCESSIONED: ??08/18/12 ?? SIGNED: ??08/21/12 [facility] PAP [place] CODE [facility] Tissue specimen (specimen) (Cervical/Vagina l) 08/17/2012 4:02 PM FAUCET POLISHER 08/17/2012 4:00 PM FAUCET POLISHER Coleman Plata MD PATHOLOGY/CYTOLOGY [facility] INTERNAL ZIP [address] [place] [phone] from Last 3 Months or Most Recently [...] 8:49 PM 03/19/2011 7:03 PM Care Teams Sales Trader Relationship Specialty Start Date End Date Barbara Valentin DO [address] [place] [address] PCP - General Family Practice 11/15/22 Julio Ibrahim MD [address] [place], [place] [id number] Surgery - Orthopedics 02/01/11 Chuy Doss MD [address] [place] [address] Surgery - Vascular 02/01/11 Markel Strong MD [address] [place] [address] Provider Family Practice 08/08/20 Nikolai Ibarra MD [address] [place] [address] Endocrinology 09/07/22 Suad Ng/ Med[employer] CM Director Of Optimization 07/14/17 [facility] Home Health Nurse 07/01/17 [facility] Services Home Health Aide 07/14/17 [facility]/ Ally Christianson [address] [place] [address] Director Of Optimization 07/07/17
--- OUTSIDE RECORDS SUMMARY | 2024-01-12 14:06 | XMS_ITS | Clinical Summary ---
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); Chronic diastolic congestive heart failure (HCC); Secondary hyperparathyroidism of renal origin (HCC); Anemia in chronic kidney disease 11/10/2023 Documentation Only [facility] [place] [address] Ericka Hurst from Last 3 Months Immunizations [...] Diabetes: Hemoglobin A1C 12/22/2023 09/21/2023 Influenza Vaccine (#1) 2024 2, 04/28/2021, 05/18/2019, Additional history exists Hepatitis B Vaccine Aged Out No longe r eligible based on patient's age to complete this topic Care Teams Brick Pointer Relationship Specialty Start Date End Date Barbara Valentin DO [address] [place] [address] PCP - General Family Medicine 09/22/23
--- OUTSIDE RECORDS SUMMARY | 2024-01-12 14:06 | XMS_ITS | Encounter Summary ---
Author Organization [facility] [place] Address [address] [place] [address] Care Team Providers Care Middleware Systems Architect Name Role Phone Barbara Valentin DO Primary Care Provider Kevin zepeda Encounter Details Date Type Department Care Team (Late st Contact Info) Description 09/22/2023 Documentation Only [facility] [address] [facility] [address] [place] [address] No, Pcp Social History Tobacco [...] on filedocumented in this encounter Care Teams Middleware Systems Architect Relationship Specialty Start Date End Date Barbara Valentin DO [address] [place] [address] PCP - General Family Medicine 09/22/23 documented as of this encounter
[2024-01-12 14:16] LABS: Basophils Percent Auto 0.2 % (0.0-3.0); Eosinophils Percent Auto 0.1 % (0.0-7.0); Hematocrit 39.2 % (33.0-51.0); Hemoglobin* 11.4 gm/dL (12.0-16.0); Immature Granulocytes Pct Auto 0.6 %; Lymphocytes Percent Auto 6.1 % (20-44); Mean Corpuscular HGB Conc 29 gm/dL (32-36); Mean Corpuscular Hemoglobin 29 pg (26-34); Mean Corpuscular Volume 100 fL (80-100); Monocytes Percent Auto 6.7 % (0.0-11.0); Neutrophils Percent Auto 86.3 % (42.0-72.0); Platelet Count* 354 K/uL (140-440); RDW Coefficient of Variation % 13.9 % (11.5-15.5); Red Blood Count 3.94 m/uL (4.00-5.20); White Blood Count* 16.99 K/uL (4.50-11.00)
[2024-01-12 14:22] LABS: Slide Review Reflex No
[2024-01-12 14:25] LABS: Chloride* 83 mmol/L (96-114)
[2024-01-12 14:28] LABS: Creatinine* 4.4 mg/dL (0.5-1.5); Est. Creatinine Clearance* 10.48; Estimated Glomerular Filt Rate 11 ml/min
[2024-01-12 14:29] LABS: Alanine Aminotransferase* 29 U/L (4-35); Alkaline Phosphatase* 167 U/L (40-150); Aspartate Amino Transferase* 31 U/L (12-35); Bilirubin Direct* 0.6 mg/dL (0.0-0.5); Bilirubin Total* 0.6 mg/dL (0.1-1.5); Blood Urea Nitrogen* 79 mg/dL (7-30); Calcium* 8.3 mg/dL (8.4-10.6); Total Protein* 6.8 g/dL (6.0-8.3)
[2024-01-12 14:30] LABS: Magnesium* 2.3 mg/dL (1.5-2.6)
[2024-01-12 14:32] LABS: C Reactive Protein* 3.5 mg/dL (0.5-1.0)
[2024-01-12 14:39] LABS: Carbon Dioxide* < 5 mmol/L (20-32); Glucose* 1195 mg/dL (60-115)
[2024-01-12] MEDS: INSULIN INF 100 UNIT/100 ML 100 UNIT/100 ML BAG IVPB (14:45)
[2024-01-12 14:52] LABS: NT Pro B Type NatriureticPept* 1930 pg/mL; Troponin I* < 0.01 ng/mL (0.01-0.04)
[2024-01-12 15:15] LABS: Appearance Urine Turbid (Clear); Bilirubin Urine Negative (Negative); Blood Urine 3+ (Negative); Color Urine Light yellow (Yellow); Glucose Urine 2+ (Negative); Ketones Urine 1+ (Negative); Leukocyte Esterase Urine 2+ (Negative); Nitrite Urine Negative (Negative); Protein Urine 3+ (Negative); Specific Gravity Urine 1.025 (1.000-1.030); Urobilinogen Urine 0.2 (0.2-1.0); pH Urine 5.5 (5.0-8.5)
[2024-01-12 15:21] LABS: Bacteria Urine Moderate; RBC Urine >100 (0-2); Squamous Epithelial Cell Urine Many (None-Few); WBC Urine >100 (0-5)
--- NOTE | 2024-01-12 15:24 | CRLHL7_ITS ---
For Patients: As a result of the Cures Act, medical imaging exams and procedure reports are released immediately into your electronic medical record. You may view this report before your referring provider. If you have questions, please contact your health care provider. INDICATION: Right neck central line. TECHNIQUE: Chest 1 portable view. COMPARISON: None. FINDINGS: Right IJ catheter terminates in the distal SVC. No pneumothorax or pleural effusion. Lungs are clear. Cardiac and mediastinal contours are within normal limits. Upper abdomen and osseous structures as imaged show no acute abnormality. IMPRESSION: Right IJ catheter terminates in the distal SVC. No pneumothorax. Dictated by Travon Queen MD @ 01/12/2024 4:47:46 PM (Electronically Signed)
[2024-01-12] MEDS: CALCIUM GLUC 1,000MG/50 ML 1,000 MG/50 ML BAG 100 MG IVPB (15:30)
[2024-01-12] MEDS: 0.9 % SODIUM CHLORIDE 1000 ml 1,000 ML IV (15:30)
[2024-01-12 15:32] LABS: Anion Gap 33 mEq/L (7-15); Potassium* 8.6 mmol/L (3.6-5.1); Sodium* 121 mmol/L (135-149)
--- NOTE | 2024-01-12 15:32 | ED.GENADULT ---
HPI - General Adult General Date Seen: 01/12/24 <Julio Ritter MD - Last Filed: 01/12/24 15:37> Chief complaint: Diabetic Related Problem <Julio Ritter MD - Last Filed: 01/12/24 15:37> Stated complaint: Elevated blood sugar <Julio Ritter MD - Last Filed: 01/12/24 15:37> Time Seen by Provider: 01/12/24 13:36 <Julio Ritter MD - Last Filed: 01/12/24 15:37> History of Present Illness HPI narrative: This is an addendum to Dr. Hayes's ER note for this patient. I assisted in placement of an ultrasound-guided right internal jugular triple-lumen central line <Julio Ritter MD - Last Filed: 01/12/24 15:37> 63-year-old female brought in via EMS secondary to altered mental status. I did call the patient's son, Mitul and he stated that this morning he noticed that Kati had not gotten out of bed. He went to check on her around 06 02 and found that her blood glucose was too high to read. She felt clammy at that time was talking and was responding normally. He gave her insulin and water to drink at that time and unfortunately did not notice a change in her blood glucose. In fact, she became less responsive and so EMS was called and they brought her in. Upon arrival patient is hypotensive. This is an addendum to Dr. Hayes's ER note for this patient. I assisted in placement of an ultrasound-guided right internal jugular triple-lumen central line <Annalee Troncoso MD - Last Filed: 01/12/24 20:15> Related Data Home medications: Home Medications ?Medication ?Instructions ?Recorded ?Confirmed amlodipine 2.5 mg tablet 2.5 mg PO BID 10/11/22 12/28/23 atorvastatin 20 mg tablet 20 mg PO QPM 10/11/22 12/28/23 buprenorphine 5 mcg/hour weekly 1 patch transdermal Q7D 10/11/22 12/28/23 transdermal patch cetirizine 5 mg tablet 5 mg PO DAILY 10/11/22 12/28/23 cholecalciferol (vitamin D3) 50 50 mcg PO DAILY 10/11/22 12/28/23 mcg (2,000 unit) capsule duloxetine 60 mg capsule,delayed 60 mg PO DAILY 10/11/22 12/28/23 release losartan 25 mg tablet 12.5 mg PO DAILY 10/11/22 12/28/23 metoprolol succinate 25 mg 25 mg PO DAILY 10/11/22 12/28/23 tablet,extended release 24 hr omeprazole 20 mg capsule,delayed 20 mg PO DAILY 10/11/22 12/28/23 release oxycodone 5 mg tablet 5 mg PO BID PRN 10/11/22 12/28/23 polyethylene glycol 3350 17 17 g PO BID 10/11/22 12/28/23 gram/dose oral powder (Miralax) pregabalin 100 mg capsule 200 mg PO QAM 10/11/22 12/28/23 pregabalin 50 mg capsule 150 mg PO HS 10/11/22 12/28/23 sennosides 8.6 mg-docusate sodium 2 tab PO BID 10/11/22 12/28/23 50 mg tablet (Stool Softener-Stimulant Laxative) torsemide 20 mg tablet 40 mg PO DAILY 10/11/22 12/28/23 vitamin B12 2,500 mcg-folic acid 1 tab PO DAILY 10/11/22 12/28/23 400 mcg disintegrating tablet acetaminophen 650 mg 1,300 mg PO Q8H 12/19/22 12/28/23 tablet,extended release insulin glargine 100 unit/mL (3 15 unit subcut QPM 05/25/23 12/28/23 mL) subcutaneous pen (Lantus Solostar U-100 Insulin) levothyroxine 125 mcg tablet 125 mcg PO DAILY 05/25/23 12/28/23 Previous Rx's ?Medication ?Instructions ?Recorded insulin aspart U-100 100 unit/mL 8 unit (0.08 mL) subcut TIDWM #15 12/21/22 (3 mL) subcutaneous pen (Novolog mL FlexPen U-100 Insulin aspart) <Julio Ritter MD - Last Filed: 01/12/24 15:37> Allergies/adverse reactions: Allergies Allergy/AdvReac Type Severity Reaction Status Date / Time No Known Drug Allergies Allergy Verified 01/12/24 13:37 <Julio Ritter MD - Last Filed: 01/12/24 15:37> Review of Systems Status of ROS: Reports: unobtainable due to medical condition <Annalee Troncoso MD - Last Filed: 01/12/24 20:15> [facility] Medical History: Medical History Hypertension ?I10 - Essential (primary) hypertension (ICD-10) Diabetes type I ?E10.9 - Type 1 diabetes mellitus without complications (ICD-10) Hyperosmolar syndrome ?E87.0 - Hyperosmolality and hypernatremia (ICD-10) Sleep apnea ?G47.30 - Sleep apnea, unspecified (ICD-10) Ulnar neuropathy ?G56.20 - Lesion of ulnar nerve, unspecified upper limb (ICD-10) Hyperlipidemia ?E78.5 - Hyperlipidemia, unspecified (ICD-10) Morbid obesity ?E66.01 - Morbid (severe) obesity due to excess calories (ICD-10) GERD (gastroesophageal reflux disease) ?K21.9 - Gastro-esophageal reflux disease without esophagitis (ICD-10) 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 diabetic neuropathic arthropathy (ICD-10) Depressive disorder ?F32.A - Depression, unspecified (ICD-10) COPD (chronic obstructive pulmonary disease) ?J44.9 - Chronic obstructive pulmonary disease, unspecified (ICD-10) Congestive heart failure (CHF) ?I50.9 - Heart failure, unspecified (ICD-10) Chronic pain syndrome ?G89.4 - Chronic pain syndrome (ICD-10) Chronic kidney disease, stage 1 ?N18.1 - Chronic kidney disease, stage 1 (ICD-10) Carpal tunnel syndrome ?G56.00 - Carpal tunnel syndrome, unspecified upper limb (ICD-10) Diabetic retinopathy ?E11.319 - Type 2 diabetes mellitus with unspecified diabetic retinopathy without macular edema (ICD-10) Anemia of other chronic disease ?D63.8 - Anemia in other chronic diseases classified elsewhere (ICD-10) Acute respiratory failure ?J96.00 - Acute respiratory failure, unspecified whether with hypoxia or hypercapnia (ICD-10) <Julio Ritter MD - Last Filed: 01/12/24 15:37> Surgical History: Surgical History History of thyroidectomy ?E89.0 - Postprocedural hypothyroidism (ICD-10) History of hip replacement ?Z96.649 - Presence of unspecified artificial hip joint (ICD-10) History of gastric bypass ?Z98.84 - Bariatric surgery status (ICD-10) History of section ?Z98.891 - History of uterine scar from previous surgery (ICD-10) Hx of cataract removal with insertion of prosthetic lens ?Z98.49 - Cataract extraction status, unspecified eye (ICD-10) ?Z96.1 - Presence of intraocular lens (ICD-10) History of carpal tunnel release ?Z98.890 - Other specified postprocedural states (ICD-10) History of knee replacement procedure of right knee ?Z96.651 - Presence of right artificial knee joint (ICD-10) <Julio Ritter MD - Last Filed: 01/12/24 15:37> Social History: Social History Narrative: Full Code. Lives with son Mitul, who would be medical decision maker if needed. What is your current living situation?: I presently have a place to live Problems where you live: no known problems Problems where you live details: no In the past 12 months, utilities in danger of being shut off: declined to answer In past 12 months, lack of transportation kept you from medical appts, meetings, work, or getting things needed for daily living: no In the past 12 mos, have been you worried that your food would run out before you had money to buy more?: declined to answer In the past 12 mos, the food you bought just didn't last and you didn't have money to buy more?: declined to answer Smoking Status: Never smoker Do you use any of these nicotine containing products: None Second hand tobacco smoke exposure: No How often do you have a drink containing alcohol: never AUDIT-C Alcohol total score: 0 Non-prescribed substance use: denies use How often does anyone, including family, friends and others, physically hurt you: never How often does anyone, including family, friends and others, insult or talk down to you: never How often does anyone, including family, friends and others, threaten you with harm: never How often does anyone, including family, friends and others, scream or curse at you: never <Julio Ritter MD - Last Filed: 01/12/24 15:37> Exam Narrative: Exam Narrative: Overweight patient, somnolent but arousable and responding to questions. Patient does not appear to be having a difficult time breathing, she is hypotensive. HEENT: Normocephalic atraumatic. Pupils are equally round reactive to light. Extraocular muscles are intact. Conjunctivae are moist without any icterus noted. Dry mucous membranes. Neck is soft. Cardiovascular: Heart is regular rate and rhythm. Lungs: Clear to auscultation bilaterally no wheezes rhonchi or rales are appreciated. Abdomen: Soft and nontender nondistended with normal bowel sounds. Extremities: Bilateral lower extremities are without edema. Patient has an ulcer on the left heel that does not appear infected. Skin: Warm, dry and intact. <Annalee Troncoso MD - Last Filed: 01/12/24 20:15> Const: Vital Signs, click to edit/add: Vital Signs - 24 hr 01/12/24 13:35 01/12/24 13:42 01/12/24 13:52 Temperature 97.0 F L Pulse Rate Pulse Rate [Right Pulse Oximeter] 103 H Respiratory Rate 16 Blood Pressure Blood Pressure [Ri ght Upper Arm] 78/62 L Pulse Oximetry 95 94 92 Oxygen Delivery Me thod Nasal Cannula Oxygen Flow Rate 1 01/12/24 14:00 01/12/24 14:00 01/12/24 14:06 Temperature Pulse Rate Pulse Rate [Right Pulse Oximeter] Respiratory Rate 16 Blood Pressure Blood Pressure [Ri ght Upper Arm] 66/32 L 104/17 L Pulse Oximetry 93 96 Oxygen Delivery Me thod Room Air Oxygen Flow Rate 01/12/24 14:08 01/12/24 14:10 01/12/24 14:20 Temperature Pulse Rate Pulse Rate [Right Pulse Oximeter] Respiratory Rate Blood Pressure Blood Pressure [Ri ght Upper Arm] Pulse Oximetry 88 88 87 L Oxygen Delivery Me thod Oxygen Flow Rate 01/12/24 14:20 01/12/24 14:23 01/12/24 14:25 Temperature Pulse Rate Pulse Rate [Right Pulse Oximeter] Respiratory Rate Blood Pressure Blood Pressure [Ri ght Upper Arm] 104/12 L Pulse Oximetry 86 L 86 L Oxygen Delivery Me thod Oxygen Flow Rate 01/12/24 14:30 01/12/24 14:30 01/12/24 14:40 Temperature Pulse Rate Pulse Rate [Right Pulse Oximeter] Respiratory Rate Blood Pressure Blood Pressure [Ri ght Upper Arm] 103/18 L Pulse Oximetry 84 L 97 Oxygen Delivery Me thod Oxygen Flow Rate 01/12/24 14:50 01/12/24 14:55 01/12/24 14:56 Temperature Pulse Rate Pulse Rate [Right Pulse Oximeter] Respiratory Rate Blood Pressure Blood Pressure [Ri ght Upper Arm] 124/61 Pulse Oximetry 91 94 Oxygen Delivery Me thod Oxygen Flow Rate 01/12/24 14:59 01/12/24 15:00 01/12/24 15:08 Temperature Pulse Rate Pulse Rate [Right Pulse Oximeter] Respiratory Rate Blood Pressure Blood Pressure [Ri ght Upper Arm] Pulse Oximetry 92 92 90 Oxygen Delivery Me thod Oxygen Flow Rate 01/12/24 15:10 01/12/24 15:15 01/12/24 15:19 Temperature Pulse Rate Pulse Rate [Right Pulse Oximeter] Respiratory Rate Blood Pressure Blood Pressure [Ri ght Upper Arm] 136/55 L Pulse Oximetry 89 96 Oxygen Delivery Me thod Oxygen Flow Rate 01/12/24 15:20 01/12/24 15:30 01/12/24 15:35 Temperature Pulse Rate Pulse Rate [Right Pulse Oximeter] Respiratory Rate Blood Pressure Blood Pressure [Ri ght Upper Arm] Pulse Oximetry 98 99 95 Oxygen Delivery Me thod Oxygen Flow Rate 01/12/24 15:35 01/12/24 15:40 01/12/24 15:41 Temperature Pulse Rate Pulse Rate [Right Pulse Oximeter] Respiratory Rate Blood Pressure Blood Pressure [Ri ght Upper Arm] 173/75 H Pulse Oximetry 99 99 Oxygen Delivery Me thod Oxygen Flow Rate 01/12/24 15:42 01/12/24 15:47 01/12/24 15:50 Temperature Pulse Rate Pulse Rate [Right Pulse Oximeter] Respiratory Rate Blood Pressure Blood Pressure [Ri ght Upper Arm] Pulse Oximetry 100 100 100 Oxygen Delivery Me thod Oxygen Flow Rate 01/12/24 15:50 01/12/24 15:52 01/12/24 15:57 Temperature Pulse Rate Pulse Rate [Right Pulse Oximeter] Respiratory Rate Blood Pressure Blood Pressure [Ri ght Upper Arm] 153/71 H Pulse Oximetry 99 99 Oxygen Delivery Me thod Oxygen Flow Rate 01/12/24 16:00 01/12/24 16:02 01/12/24 16:07 Temperature Pulse Rate Pulse Rate [Right Pulse Oximeter] Respiratory Rate Blood Pressure Blood Pressure [Ri ght Upper Arm] Pulse Oximetry 100 100 100 Oxygen Delivery Me thod Oxygen Flow Rate 01/12/24 16:10 01/12/24 16:12 01/12/24 16:17 Temperature Pulse Rate Pulse Rate [Right Pulse Oximeter] Respiratory Rate Blood Pressure Blood Pressure [Ri ght Upper Arm] Pulse Oximetry 98 100 98 Oxygen Delivery Me thod Oxygen Flow Rate 01/12/24 16:20 01/12/24 16:22 01/12/24 16:27 Temperature Pulse Rate Pulse Rate [Right Pulse Oximeter] Respiratory Rate Blood Pressure Blood Pressure [Ri ght Upper Arm] Pulse Oximetry 100 100 100 Oxygen Delivery Me thod Oxygen Flow Rate 01/12/24 16:30 01/12/24 16:31 01/12/24 16:32 Temperature Pulse Rate Pulse Rate [Right Pulse Oximeter] Respiratory Rate Blood Pressure Blood Pressure [Ri ght Upper Arm] Pulse Oximetry 99 99 99 Oxygen Delivery Me thod Oxygen Flow Rate 01/12/24 16:37 01/12/24 16:40 01/12/24 16:42 Temperature Pulse Rate 92 90 89 Pulse Rate [Right Pulse Oximeter] Respiratory Rate Blood Pressure 155/64 H 129/54 L Blood Pressure [Ri ght Upper Arm] Pulse Oximetry 99 99 99 Oxygen Delivery Me thod Oxygen Flow Rate 01/12/24 16:46 01/12/24 16:50 01/12/24 16:52 Temperature Pulse Rate 87 86 86 Pulse Rate [Right Pulse Oximeter] Respiratory Rate Blood Pressure 124/63 129/49 L Blood Pressure [Ri ght Upper Arm] Pulse Oximetry 98 98 97 Oxygen Delivery Me thod Nasal Cannula Oxygen Flow Rate 1 01/12/24 16:56 01/12/24 17:00 01/12/24 17:01 Temperature Pulse Rate 86 87 88 Pulse Rate [Right Pulse Oximeter] Respiratory Rate Blood Pressure 110/50 L 119/68 Blood Pressure [Ri ght Upper Arm] Pulse Oximetry 98 99 98 Oxygen Delivery Me thod Nasal Cannula Oxygen Flow Rate 1 01/12/24 17:01 01/12/24 17:08 01/12/24 17:10 Temperature Pulse Rate 88 91 92 Pulse Rate [Right Pulse Oximeter] Respiratory Rate Blood Pressure 119/68 155/64 H Blood Pressure [Ri ght Upper Arm] Pulse Oximetry 98 99 99 Oxygen Delivery Me thod Oxygen Flow Rate 01/12/24 17:12 01/12/24 17:13 01/12/24 17:17 Temperature Pulse Rate 92 91 91 Pulse Rate [Right Pulse Oximeter] Respiratory Rate Blood Pressure 154/63 H 154/92 H Blood Pressure [Ri ght Upper Arm] Pulse Oximetry 99 99 98 Oxygen Delivery Me thod Oxygen Flow Rate 01/12/24 17:20 01/12/24 17:23 01/12/24 17:27 Temperature Pulse Rate 93 93 85 Pulse Rate [Right Pulse Oximeter] Respiratory Rate Blood Pressure 161/52 H 107/49 L Blood Pressure [Ri ght Upper Arm] Pulse Oximetry 99 97 98 Oxygen Delivery Me thod Oxygen Flow Rate 01/12/24 17:30 01/12/24 17:32 01/12/24 17:37 Temperature Pulse Rate 83 81 78 Pulse Rate [Right Pulse Oximeter] Respiratory Rate Blood Pressure 89/45 L 99/43 L Blood Pressure [Ri ght Upper Arm] Pulse Oximetry 97 98 97 Oxygen Delivery Me thod Oxygen Flow Rate 01/12/24 17:40 01/12/24 17:42 01/12/24 17:42 Temperature Pulse Rate 83 85 85 Pulse Rate [Right Pulse Oximeter] Respiratory Rate Blood Pressure 149/66 H 149/66 H Blood Pressure [Ri ght Upper Arm] Pulse Oximetry 98 98 98 Oxygen Delivery Me thod Oxygen Flow Rate 01/12/24 17:46 01/12/24 17:50 01/12/24 17:53 Temperature Pulse Rate 88 92 91 Pulse Rate [Right Pulse Oximeter] Respiratory Rate Blood Pressure 149/66 H 157/80 H Blood Pressure [Ri ght Upper Arm] Pulse Oximetry 98 98 98 Oxygen Delivery Me thod Oxygen Flow Rate 01/12/24 18:00 01/12/24 18:01 01/12/24 18:02 Temperature Pulse Rate 95 95 95 Pulse Rate [Right Pulse Oximeter] Respiratory Rate Blood Pressure 136/68 Blood Pressure [Ri ght Upper Arm] Pulse Oximetry 95 98 99 Oxygen Delivery Me thod Oxygen Flow Rate 01/12/24 18:03 01/12/24 18:07 01/12/24 18:10 Temperature Pulse Rate 95 93 93 Pulse Rate [Right Pulse Oximeter] Respiratory Rate Blood Pressure 170/71 H Blood Pressure [Ri ght Upper Arm] Pulse Oximetry 100 98 98 Oxygen Delivery Me thod Oxygen Flow Rate 01/12/24 18:12 01/12/24 18:17 01/12/24 18:20 Temperature Pulse Rate 91 85 83 Pulse Rate [Right Pulse Oximeter] Respiratory Rate Blood Pressure 158/78 H 118/52 L Blood Pressure [Ri ght Upper Arm] Pulse Oximetry 98 98 97 Oxygen Delivery Me thod Oxygen Flow Rate 01/12/24 18:22 01/12/24 18:26 01/12/24 18:27 Temperature Pulse Rate 82 81 81 Pulse Rate [Right Pulse Oximeter] Respiratory Rate Blood Pressure 97/49 L 114/49 L Blood Pressure [Ri ght Upper Arm] Pulse Oximetry 97 96 96 Oxygen Delivery Me thod Oxygen Flow Rate 01/12/24 18:30 01/12/24 18:31 01/12/24 18:37 Temperature Pulse Rate 81 80 80 Pulse Rate [Right Pulse Oximeter] Respiratory Rate Blood Pressure 98/55 L 99/56 L Blood Pressure [Ri ght Upper Arm] Pulse Oximetry 97 97 96 Oxygen Delivery Me thod Oxygen Flow Rate 01/12/24 18:40 01/12/24 18:42 01/12/24 18:47 Temperature Pulse Rate 79 79 78 Pulse Rate [Right Pulse Oximeter] Respiratory Rate Blood Pressure 104/54 L 103/51 L Blood Pressure [Ri ght Upper Arm] Pulse Oximetry 96 96 96 Oxygen Delivery Me thod Oxygen Flow Rate 01/12/24 18:50 01/12/24 18:51 01/12/24 18:56 Temperature Pulse Rate 79 79 79 Pulse Rate [Right Pulse Oximeter] Respiratory Rate Blood Pressure 101/50 L 105/43 L Blood Pressure [Ri ght Upper Arm] Pulse Oximetry 96 97 97 Oxygen Delivery Me thod Oxygen Flow Rate 01/12/24 19:00 01/12/24 19:02 01/12/24 19:07 Temperature Pulse Rate 79 78 78 Pulse Rate [Right Pulse Oximeter] Respiratory Rate Blood Pressure 95/50 L 113/38 L Blood Pressure [Ri ght Upper Arm] Pulse Oximetry 96 96 96 Oxygen Delivery Me thod Oxygen Flow Rate 01/12/24 19:10 01/12/24 19:12 07/11/24 19:17 Temperature Pulse Rate 78 78 78 Pulse Rate [Right Pulse Oximeter] Respiratory Rate Blood Pressure 104/49 L 93/45 L Blood Pressure [Ri ght Upper Arm] Pulse Oximetry 96 96 95 Oxygen Delivery Me thod Oxygen Flow Rate 01/12/24 19:20 01/12/24 19:22 01/12/24 19:27 Temperature Pulse Rate 78 78 78 Pulse Rate [Right Pulse Oximeter] Respiratory Rate Blood Pressure 101/42 L 111/51 L Blood Pressure [Ri ght Upper Arm] Pulse Oximetry 96 96 96 Oxygen Delivery Me thod Oxygen Flow Rate 01/12/24 19:30 01/12/24 19:32 Temperature Pulse Rate 78 78 Pulse Rate [Right Pulse Oximeter] Respiratory Rate Blood Pressure 107/54 L Blood Pressure [Ri ght Upper Arm] Pulse Oximetry 96 95 Oxygen Delivery Me thod Oxygen Flow Rate <Julio Ritter MD - Last Filed: 01/12/24 15:37> Vital Signs, click to edit/add: Vital Signs - 24 hr 01/12/24 13:35 01/12/24 13:42 01/12/24 13:52 Temperature 97.0 F L Pulse Rate Pulse Rate [Right Pulse Oximeter] 103 H Respiratory Rate 16 Blood Pressure Blood Pressure [Ri ght Upper Arm] 78/62 L Pulse Oximetry 95 94 92 Oxygen Delivery Me thod Nasal Cannula Oxygen Flow Rate 1 01/12/24 14:00 01/12/24 14:00 01/12/24 14:06 Temperature Pulse Rate Pulse Rate [Right Pulse Oximeter] Respiratory Rate 16 Blood Pressure Blood Pressure [Ri ght Upper Arm] 66/32 L 104/17 L Pulse Oximetry 93 96 Oxygen Delivery Me thod Room Air Oxygen Flow Rate 01/12/24 14:08 01/12/24 14:10 01/12/24 14:20 Temperature Pulse Rate Pulse Rate [Right Pulse Oximeter] Respiratory Rate Blood Pressure Blood Pressure [Ri ght Upper Arm] Pulse Oximetry 88 88 87 L Oxygen Delivery Me thod Oxygen Flow Rate 01/12/24 14:20 01/12/24 14:23 01/12/24 14:25 Temperature Pulse Rate Pulse Rate [Right Pulse Oximeter] Respiratory Rate Blood Pressure Blood Pressure [Ri ght Upper Arm] 104/12 L Pulse Oximetry 86 L 86 L Oxygen Delivery Me thod Oxygen Flow Rate 01/12/24 14:30 01/12/24 14:30 01/12/24 14:40 Temperature Pulse Rate Pulse Rate [Right Pulse Oximeter] Respiratory Rate Blood Pressure Blood Pressure [Ri ght Upper Arm] 103/18 L Pulse Oximetry 84 L 97 Oxygen Delivery Me thod Oxygen Flow Rate 01/12/24 14:50 01/12/24 14:55 01/12/24 14:56 Temperature Pulse Rate Pulse Rate [Right Pulse Oximeter] Respiratory Rate Blood Pressure Blood Pressure [Ri ght Upper Arm] 124/61 Pulse Oximetry 91 94 Oxygen Delivery Me thod Oxygen Flow Rate 01/12/24 14:59 01/12/24 15:00 01/12/24 15:08 Temperature Pulse Rate Pulse Rate [Right Pulse Oximeter] Respiratory Rate Blood Pressure Blood Pressure [Ri ght Upper Arm] Pulse Oximetry 92 92 90 Oxygen Delivery Me thod Oxygen Flow Rate 01/12/24 15:10 01/12/24 15:15 01/12/24 15:19 Temperature Pulse Rate Pulse Rate [Right Pulse Oximeter] Respiratory Rate Blood Pressure Blood Pressure [Ri ght Upper Arm] 136/55 L Pulse Oximetry 89 96 Oxygen Delivery Me thod Oxygen Flow Rate 01/12/24 15:20 01/12/24 15:30 01/12/24 15:35 Temperature Pulse Rate Pulse Rate [Right Pulse Oximeter] Respiratory Rate Blood Pressure Blood Pressure [Ri ght Upper Arm] Pulse Oximetry 98 99 95 Oxygen Delivery Me thod Oxygen Flow Rate 01/12/24 15:35 01/12/24 15:40 01/12/24 15:41 Temperature Pulse Rate Pulse Rate [Right Pulse Oximeter] Respiratory Rate Blood Pressure Blood Pressure [Ri ght Upper Arm] 173/75 H Pulse Oximetry 99 99 Oxygen Delivery Me thod Oxygen Flow Rate 01/12/24 15:42 01/12/24 15:47 01/12/24 15:50 Temperature Pulse Rate Pulse Rate [Right Pulse Oximeter] Respiratory Rate Blood Pressure Blood Pressure [Ri ght Upper Arm] Pulse Oximetry 100 100 100 Oxygen Delivery Me thod Oxygen Flow Rate 01/12/24 15:50 01/12/24 15:52 01/12/24 15:57 Temperature Pulse Rate Pulse Rate [Right Pulse Oximeter] Respiratory Rate Blood Pressure Blood Pressure [Ri ght Upper Arm] 153/71 H Pulse Oximetry 99 99 Oxygen Delivery Me thod Oxygen Flow Rate 01/12/24 16:00 01/12/24 16:02 01/12/24 16:07 Temperature Pulse Rate Pulse Rate [Right Pulse Oximeter] Respiratory Rate Blood Pressure Blood Pressure [Ri ght Upper Arm] Pulse Oximetry 100 100 100 Oxygen Delivery Me thod Oxygen Flow Rate 01/12/24 16:10 01/12/24 16:12 01/12/24 16:17 Temperature Pulse Rate Pulse Rate [Right Pulse Oximeter] Respiratory Rate Blood Pressure Blood Pressure [Ri ght Upper Arm] Pulse Oximetry 98 100 98 Oxygen Delivery Me thod Oxygen Flow Rate 01/12/24 16:20 01/12/24 16:22 01/12/24 16:27 Temperature Pulse Rate Pulse Rate [Right Pulse Oximeter] Respiratory Rate Blood Pressure Blood Pressure [Ri ght Upper Arm] Pulse Oximetry 100 100 100 Oxygen Delivery Me thod Oxygen Flow Rate 01/12/24 16:30 01/12/24 16:31 01/12/24 16:32 Temperature Pulse Rate Pulse Rate [Right Pulse Oximeter] Respiratory Rate Blood Pressure Blood Pressure [Ri ght Upper Arm] Pulse Oximetry 99 99 99 Oxygen Delivery Me thod Oxygen Flow Rate 01/12/24 16:37 01/12/24 16:40 01/12/24 16:42 Temperature Pulse Rate 92 90 89 Pulse Rate [Right Pulse Oximeter] Respiratory Rate Blood Pressure 155/64 H 129/54 L Blood Pressure [Ri ght Upper Arm] Pulse Oximetry 99 99 99 Oxygen Delivery Me thod Oxygen Flow Rate 01/12/24 16:46 01/12/24 16:50 01/12/24 16:52 Temperature Pulse Rate 87 86 86 Pulse Rate [Right Pulse Oximeter] Respiratory Rate Blood Pressure 124/63 129/49 L Blood Pressure [Ri ght Upper Arm] Pulse Oximetry 98 98 97 Oxygen Delivery Me thod Nasal Cannula Oxygen Flow Rate 1 01/12/24 16:56 01/12/24 17:00 01/12/24 17:01 Temperature Pulse Rate 86 87 88 Pulse Rate [Right Pulse Oximeter] Respiratory Rate Blood Pressure 110/50 L 119/68 Blood Pressure [Ri ght Upper Arm] Pulse Oximetry 98 99 98 Oxygen Delivery Me thod Nasal Cannula Oxygen Flow Rate 1 01/12/24 17:01 01/12/24 17:08 01/12/24 17:10 Temperature Pulse Rate 88 91 92 Pulse Rate [Right Pulse Oximeter] Respiratory Rate Blood Pressure 119/68 155/64 H Blood Pressure [Ri ght Upper Arm] Pulse Oximetry 98 99 99 Oxygen Delivery Me thod Oxygen Flow Rate 01/12/24 17:12 01/12/24 17:13 01/12/24 17:17 Temperature Pulse Rate 92 91 91 Pulse Rate [Right Pulse Oximeter] Respiratory Rate Blood Pressure 154/63 H 154/92 H Blood Pressure [Ri ght Upper Arm] Pulse Oximetry 99 99 98 Oxygen Delivery Me thod Oxygen Flow Rate 01/12/24 17:20 01/12/24 17:23 01/12/24 17:27 Temperature Pulse Rate 93 93 85 Pulse Rate [Right Pulse Oximeter] Respiratory Rate Blood Pressure 161/52 H 107/49 L Blood Pressure [Ri ght Upper Arm] Pulse Oximetry 99 97 98 Oxygen Delivery Me thod Oxygen Flow Rate 01/12/24 17:30 01/12/24 17:32 01/12/24 17:37 Temperature Pulse Rate 83 81 78 Pulse Rate [Right Pulse Oximeter] Respiratory Rate Blood Pressure 89/45 L 99/43 L Blood Pressure [Ri ght Upper Arm] Pulse Oximetry 97 98 97 Oxygen Delivery Me thod Oxygen Flow Rate 01/12/24 17:40 01/12/24 17:42 01/12/24 17:42 Temperature Pulse Rate 83 85 85 Pulse Rate [Right Pulse Oximeter] Respiratory Rate Blood Pressure 149/66 H 149/66 H Blood Pressure [Ri ght Upper Arm] Pulse Oximetry 98 98 98 Oxygen Delivery Me thod Oxygen Flow Rate 01/12/24 17:46 01/12/24 17:50 01/12/24 17:53 Temperature Pulse Rate 88 92 91 Pulse Rate [Right Pulse Oximeter] Respiratory Rate Blood Pressure 149/66 H 157/80 H Blood Pressure [Ri ght Upper Arm] Pulse Oximetry 98 98 98 Oxygen Delivery Me thod Oxygen Flow Rate 01/12/24 18:00 01/12/24 18:01 01/12/24 18:02 Temperature Pulse Rate 95 95 95 Pulse Rate [Right Pulse Oximeter] Respiratory Rate Blood Pressure 136/68 Blood Pressure [Ri ght Upper Arm] Pulse Oximetry 95 98 99 Oxygen Delivery Me thod Oxygen Flow Rate 01/12/24 18:03 01/12/24 18:07 01/12/24 18:10 Temperature Pulse Rate 95 93 93 Pulse Rate [Right Pulse Oximeter] Respiratory Rate Blood Pressure 170/71 H Blood Pressure [Ri ght Upper Arm] Pulse Oximetry 100 98 98 Oxygen Delivery Me thod Oxygen Flow Rate 01/12/24 18:12 01/12/24 18:17 01/12/24 18:20 Temperature Pulse Rate 91 85 83 Pulse Rate [Right Pulse Oximeter] Respiratory Rate Blood Pressure 158/78 H 118/52 L Blood Pressure [Ri ght Upper Arm] Pulse Oximetry 98 98 97 Oxygen Delivery Me thod Oxygen Flow Rate 01/12/24 18:22 01/12/24 18:26 01/12/24 18:27 Temperature Pulse Rate 82 81 81 Pulse Rate [Right Pulse Oximeter] Respiratory Rate Blood Pressure 97/49 L 114/49 L Blood Pressure [Ri ght Upper Arm] Pulse Oximetry 97 96 96 Oxygen Delivery Me thod Oxygen Flow Rate 01/12/24 18:30 01/12/24 18:31 01/12/24 18:37 Temperature Pulse Rate 81 80 80 Pulse Rate [Right Pulse Oximeter] Respiratory Rate Blood Pressure 98/55 L 99/56 L Blood Pressure [Ri ght Upper Arm] Pulse Oximetry 97 97 96 Oxygen Delivery Me thod Oxygen Flow Rate 01/12/24 18:40 01/12/24 18:42 01/12/24 18:47 Temperature Pulse Rate 79 79 78 Pulse Rate [Right Pulse Oximeter] Respiratory Rate Blood Pressure 104/54 L 103/51 L Blood Pressure [Ri ght Upper Arm] Pulse Oximetry 96 96 96 Oxygen Delivery Me thod Oxygen Flow Rate 01/12/24 18:50 01/12/24 18:51 01/12/24 18:56 Temperature Pulse Rate 79 79 79 Pulse Rate [Right Pulse Oximeter] Respiratory Rate Blood Pressure 101/50 L 105/43 L Blood Pressure [Ri ght Upper Arm] Pulse Oximetry 96 97 97 Oxygen Delivery Me thod Oxygen Flow Rate 01/12/24 19:00 01/12/24 19:02 01/12/24 19:07 Temperature Pulse Rate 79 78 78 Pulse Rate [Right Pulse Oximeter] Respiratory Rate Blood Pressure 95/50 L 113/38 L Blood Pressure [Ri ght Upper Arm] Pulse Oximetry 96 96 96 Oxygen Delivery Me thod Oxygen Flow Rate 01/12/24 19:10 01/12/24 19:12 01/12/24 19:17 Temperature Pulse Rate 78 78 78 Pulse Rate [Right Pulse Oximeter] Respiratory Rate Blood Pressure 104/49 L 93/45 L Blood Pressure [Ri ght Upper Arm] Pulse Oximetry 96 96 95 Oxygen Delivery Me thod Oxygen Flow Rate 01/12/24 19:20 01/12/24 19:22 01/12/24 19:27 Temperature Pulse Rate 78 78 78 Pulse Rate [Right Pulse Oximeter] Respiratory Rate Blood Pressure 101/42 L 111/51 L Blood Pressure [Ri ght Upper Arm] Pulse Oximetry 96 96 96 Oxygen Delivery Me thod Oxygen Flow Rate 01/12/24 19:30 01/12/24 19:32 Temperature Pulse Rate 78 78 Pulse Rate [Right Pulse Oximeter] Respiratory Rate Blood Pressure 107/54 L Blood Pressure [Ri ght Upper Arm] Pulse Oximetry 96 95 Oxygen Delivery Me thod Oxygen Flow Rate <Annalee Troncoso MD - Last Filed: 01/12/24 20:15> Course Course ED Course: We were unable to get an IV in so anesthesia was called. They were able to get to eat teens in. Patient then started on a 2 L normal saline bolus. After the 1 L there is no response a blood pressure so Levophed was started. EKG, read by me, showed normal sinus rhythm with somewhat peaked T-waves. In the meantime, labs were drawn: White cell count elevated at almost 17,000, hemoglobin 11.4, platelet count 354. Sodium low at 121, potassium elevated at 8.6. Anion gap of 33. BUN of 79, creatinine of 4.4. Glucose was 1195. Troponin less than 0.01. Urine was turbid with 3+ protein, 2+ glucose, 3+ urine, 2+ leukocyte esterase, greater than 100 rbc's and wbc's. This was a cath specimen. Triple swab is negative. Lactate was elevated at 6.6. Venous blood gas showed a pH of 6.9, pCO2 of 36, O2 of 75, HC03 of 8. Given the degree of illness, we did insert a central line, done by Dr. Ritter. Patient was started on Levophed, an insulin drip, calcium gluconate, and given a dose of bicarb. We started the patient on vanc and Zosyn. The 3rd L was started at a slower rate. Her blood pressure did respond. Did call [facility] for transfer, they accepted the patient however did not have a bed available for up to 8 hours. After therapies were in place and patient's blood pressure did respond, we did repeat lab work: Blood gas improved to a pH of 7.1, pCO2 of 37, HC03 of 13. Repeat lactate was 4.8. Repeat sodium came back at 1:30 a.m., potassium at 6.6 and then 5.1. Repeat creatinine down to 4. Glucose down to 859 after insulin drip was increased. After 3 L finished, patient did finally have urine output. 4th L was started at 200 mL/hour. Glucose at 783 at the time of transfer. Blood pressures remained stable with Levophed on board. <Annalee Troncoso MD - Last Filed: 01/12/24 20:15> Vital Signs Vital signs: Initial Vital Signs Temperature 97.0 F L 01/12/24 13:35 Temperature Source Temporal Artery Scan 01/12/24 13:35 Pulse Rate 103 H 01/12/24 13:35 Pulse Rhythm Irregular 01/12/24 13:35 Pulse Strength 2+ Slightly Diminished 01/12/24 13:35 Respiratory Rate 16 01/12/24 13:35 Blood Pressure 78/62 L 01/12/24 13:35 Blood Pressure Mean 67 L 01/12/24 13:35 Blood Pressure Position Supine 01/12/24 13:35 Pulse Oximetry 95 01/12/24 13:35 Oxygen Delivery Method Nasal Cannula 01/12/24 13:35 Oxygen Flow Rate 1 01/12/24 13:35 Vital Signs Temperature 97.0 F L 01/12/24 13:35 Pulse Rate 103 H 01/12/24 13:35 Respiratory Rate 16 01/12/24 13:35 Blood Pressure 78/62 L 01/12/24 13:35 Pulse Oximetry 95 01/12/24 13:35 Oxygen Delivery Method Nasal Cannula 01/12/24 13:35 Oxygen Flow Rate 1 01/12/24 13:35 Temperature 97.0 F L 01/12/24 13:35 Pulse Rate 78 01/12/24 19:32 Respiratory Rate 16 01/12/24 14:06 Blood Pressure 107/54 L 01/12/24 19:32 Pulse Oximetry 95 01/12/24 19:32 Oxygen Delivery Method Nasal Cannula 01/12/24 17:01 Oxygen Flow Rate 1 01/12/24 17:01 <Julio Ritter MD - Last Filed: 01/12/24 15:37> Initial Vital Signs Temperature 97.0 F L 01/12/24 13:35 Temperature Source Temporal Artery Scan 01/12/24 13:35 Pulse Rate 103 H 01/12/24 13:35 Pulse Rhythm Irregular 01/12/24 13:35 Pulse Strength 2+ Slightly Diminished 01/12/24 13:35 Respiratory Rate 16 01/12/24 13:35 Blood Pressure 78/62 L 01/12/24 13:35 Blood Pressure Mean 67 L 01/12/24 13:35 Blood Pressure Position Supine 01/12/24 13:35 Pulse Oximetry 95 01/12/24 13:35 Oxygen Delivery Method Nasal Cannula 01/12/24 13:35 Oxygen Flow Rate 1 01/12/24 13:35 Vital Signs Temperature 97.0 F L 01/12/24 13:35 Pulse Rate 103 H 01/12/24 13:35 Respiratory Rate 16 01/12/24 13:35 Blood Pressure 78/62 L 01/12/24 13:35 Pulse Oximetry 95 01/12/24 13:35 Oxygen Delivery Method Nasal Cannula 01/12/24 13:35 Oxygen Flow Rate 1 01/12/24 13:35 Temperature 97.0 F L 01/12/24 13:35 Pulse Rate 78 01/12/24 19:32 Respiratory Rate 16 01/12/24 14:06 Blood Pressure 107/54 L 01/12/24 19:32 Pulse Oximetry 95 01/12/24 19:32 Oxygen Delivery Method Nasal Cannula 01/12/24 17:01 Oxygen Flow Rate 1 01/12/24 17:01 <Annalee Troncsoo MD - Last Filed: 01/12/24 20:15> Medications Administered Medications: Generic Name Dose Route Start Last Admin Trade Name Freq PRN Reason Stop Dose Admin Norepinephrine/Dextrose 4,000 mcg in 250 mls @ 44.225 mls/hr 01/12/24 14:30 01/12/24 16:05 Norepinephrine Infusion IV Infused CONT BRET Titration Protocol 0.1 MCG/KG/MIN Insulin Human (Reg)/Sodium Chloride 100 unit in 100 mls @ 5 mls/hr 01/12/24 14:30 01/12/24 16:48 Insulin Inf 100 Unit/100 Ml IVPB 2 unit/hr .Q20H BRET 2 mls/hr Infusion Protocol 5 UNIT/HR Sodium Chloride 1,000 mls @ 200 mls/hr 01/12/24 18:17 01/12/24 18:31 0.9 % Sodium Chloride 1000 Ml IV 200 mls/hr .Q5H BRET Administration Discontinued Medications Generic Name Dose Route Start Last Admin Trade Name Jeff PRN Reason Stop Dose Admin Sodium Chloride 1,000 mls @ 6,000 mls/hr 01/12/24 13:42 01/12/24 15:44 0.9 % Sodium Chloride 1000 Ml IV 01/12/24 13:51 Infused .Q10M BRET Infusion Sodium Chloride 1,000 mls @ 1,000 mls/hr 01/12/24 14:30 01/12/24 16:03 0.9 % Sodium Chloride 1000 Ml IV 01/12/24 15:29 Infused .Q1H BRET Infusion Piperacillin Sod/Tazobactam 100 mls @ 200 mls/hr 01/12/24 14:48 01/12/24 17:36 Sod 3.375 gm/ Sodium Chloride IVPB 01/12/24 14:49 Infused ONCE ONE Infusion Vancomycin HCl 2,000 mg/ 520 mls @ 260 mls/hr 01/12/24 15:30 01/12/24 17:53 Sodium Chloride IVPB 01/12/24 17:29 Infused ONCE ONE Infusion Protocol Calcium Gluconate/Sodium Chloride 1,000 mg in 50 mls @ 100 mls/hr 01/12/24 14:59 01/12/24 16:04 Calcium Gluc 1,000mg/50 Ml IVPB 01/12/24 15:28 Infused ONCE ONE Infusion Sodium Chloride 1,000 mls @ 250 mls/hr 01/12/24 18:14 01/12/24 17:20 0.9 % Sodium Chloride 1000 Ml IV 250 mls/hr .Q4H BRET Administration Insulin Human Regular 10 unit 01/12/24 13:41 01/12/24 14:00 Insulin Regular, Human 100 Unit/Ml Vial SUBCUT 01/12/24 13:42 10 unit ONCE ONE Administration Insulin Human Regular 10 unit 01/12/24 15:38 01/12/24 16:47 Insulin Regular, Human 100 Unit/Ml Vial IVP 01/12/24 15:39 10 unit ONCE ONE Administration Lidocaine/Epinephrine 20 ml 01/12/24 14:44 01/12/24 15:49 Lidocaine 1%-Epi 1:100,000 20 Ml INFILTRATI 01/12/24 14:45 20 ml ONCE ONE Administration Sodium Bicarbonate 50 meq 01/12/24 15:38 01/12/24 15:51 Sodium Bicarbonate 50 Meq/50ml Syringe IVP 01/12/24 15:39 50 meq ONCE ONE Administration <Julio Ritter MD - Last Filed: 01/12/24 15:37> Generic Name Dose Route Start Last Admin Trade Name Frejaimee PRN Reason Stop Dose Admin Norepinephrine/Dextrose 4,000 mcg in 250 mls @ 44.225 mls/hr 01/12/24 14:30 01/12/24 16:05 Norepinephrine Infusion IV Infused CONT BRET Titration Protocol 0.1 MCG/KG/MIN Insulin Human (Reg)/Sodium Chloride 100 unit in 100 mls @ 5 mls/hr 01/12/24 14:30 01/12/24 16:48 Insulin Inf 100 Unit/100 Ml IVPB 2 unit/hr .Q20H BRET 2 mls/hr Infusion Protocol 5 UNIT/HR Sodium Chloride 1,000 mls @ 200 mls/hr 01/12/24 18:17 01/12/24 18:31 0.9 % Sodium Chloride 1000 Ml IV 200 mls/hr .Q5H BRET Administration Discontinued Medications Generic Name Dose Route Start Last Admin Trade Name Jeff PRN Reason Stop Dose Admin Sodium Chloride 1,000 mls @ 6,000 mls/hr 01/12/24 13:42 01/12/24 15:44 0.9 % Sodium Chloride 1000 Ml IV 01/12/24 13:51 Infused .Q10M BRET Infusion Sodium Chloride 1,000 mls @ 1,000 mls/hr 01/12/24 14:30 01/12/24 16:03 0.9 % Sodium Chloride 1000 Ml IV 01/12/24 15:29 Infused .Q1H BRET Infusion Piperacillin Sod/Tazobactam 100 mls @ 200 mls/hr 01/12/24 14:48 01/12/24 17:36 Sod 3.375 gm/ Sodium Chloride IVPB 01/12/24 14:49 Infused ONCE ONE Infusion Vancomycin HCl 2,000 mg/ 520 mls @ 260 mls/hr 01/12/24 15:30 01/12/24 17:53 Sodium Chloride IVPB 01/12/24 17:29 Infused ONCE ONE Infusion Protocol Calcium Gluconate/Sodium Chloride 1,000 mg in 50 mls @ 100 mls/hr 01/12/24 14:59 01/12/24 16:04 Calcium Gluc 1,000mg/50 Ml IVPB 01/12/24 15:28 Infused ONCE ONE Infusion Sodium Chloride 1,000 mls @ 250 mls/hr 01/12/24 18:14 01/12/24 17:20 0.9 % Sodium Chloride 1000 Ml IV 250 mls/hr .Q4H BRET Administration Insulin Human Regular 10 unit 01/12/24 13:41 01/12/24 14:00 Insulin Regular, Human 100 Unit/Ml Vial SUBCUT 01/12/24 13:42 10 unit ONCE ONE Administration Insulin Human Regular 10 unit 01/12/24 15:38 01/12/24 16:47 Insulin Regular, Human 100 Unit/Ml Vial IVP 01/12/24 15:39 10 unit ONCE ONE Administration Lidocaine/Epinephrine 20 ml 01/12/24 14:44 01/12/24 15:49 Lidocaine 1%-Epi 1:100,000 20 Ml INFILTRATI 01/12/24 14:45 20 ml ONCE ONE Administration Sodium Bicarbonate 50 meq 01/12/24 15:38 01/12/24 15:51 Sodium Bicarbonate 50 Meq/50ml Syringe IVP 01/12/24 15:39 50 meq ONCE ONE Administration <Annalee Troncoso MD - Last Filed: 01/12/24 20:15> Medical Decision Making MDM Narrative Medical decision making narrative: 63-year-old female presenting DKA, sepsis. Plan per above. Patient transferred to [facility] via ALS. <Annalee Troncoso MD - Last Filed: 01/12/24 20:15> Medical Records Medical records reviewed: Yes I reviewed the patient's medical records <Annalee Troncoso MD - Last Filed: 01/12/24 20:15> Lab Data Lab results reviewed: Yes I reviewed the patient's lab results <Annalee Troncoso MD - Last Filed: 01/12/24 20:15> Labs: Lab Results 01/12/24 01/12/24 01/12/24 Range/Units 13:56 13:59 15:02 WBC 16.99 H (4.50-11.00) K/uL RBC 3.94 L (4.00-5.20) m/uL Hgb 11.4 L (12.0-16.0) gm/dL Hct 39.2 (33.0-51.0) % MCV 100 (80-100) fL MCH 29 (26-34) pg MCHC 29 L (32-36) gm/dL RDW Coeff of Stefan 13.9 (11.5-15.5) % Plt Count 354 (140-440) K/uL Neut % (Auto) 86.3 H (42.0-72.0) % Lymph % (Auto) 6.1 L (20-44) % [place] % (Auto) 6.7 (0.0-11.0) % Eos % (Auto) 0.1 (0.0-7.0) % Baso % (Auto) 0.2 (0.0-3.0) % Neut # (Auto) 14.70 H (1.7-7.0) K/uL Lymph # (Auto) 1.00 (0.90-2.90) K/uL [place] # (Auto) 1.10 H (0.00-0.90) K/UL Eos # (Auto) 0.00 (0.00-0.50) K/uL Baso # (Auto) 0.00 (0.00-0.30) K/uL Abs Immat Gran (auto) 0.10 (0.00-0.30) K/uL Imm/Tot Granulo (auto) 0.6 % VBG pH 6.976 L* (7.32-7.43) VBG pCO2 36 L (40-50) mmHG VBG pO2 75.2 H (25-47) mmHG VBG HCO3 8 L (21-28) mmol/L Sodium 121 L* (135-149) mmol/L Potassium 8.6 H* (3.6-5.1) mmol/L Chloride 83 L (96-114) mmol/L Carbon Dioxide < 5 L* (20-32) mmol/L Anion Gap 33 H (7-15) mEq/L BUN 79 H (7-30) mg/dL Creatinine 4.4 H (0.5-1.5) mg/dL Estimated Creat Clear 10.48 Estimated GFR 11 ml/min Glucose 1195 H* (60-115) mg/dL Lactate 6.6 H* (0.5-1.9) mmol/L Calcium 8.3 L (8.4-10.6) mg/dL Magnesium 2.3 (1.5-2.6) mg/dL Total Bilirubin 0.6 (0.1-1.5) mg/dL Direct Bilirubin 0.6 H (0.0-0.5) mg/dL AST 31 (12-35) U/L ALT 29 (4-35) U/L Alkaline Phosphatase 167 H (40-150) U/L Troponin I < 0.01 L (0.01-0.04) ng/mL C-Reactive Protein 3.5 H (0.5-1.0) mg/dL NT-Pro-B Natriuret Pep 1930 pg/mL Total Protein 6.8 (6.0-8.3) g/dL Albumin 4.0 (3.3-5.0) g/dL Urine Color Light yellow (Yellow) Urine Appearance Turbid A (Clear) Urine pH 5.5 (5.0-8.5) Ur Specific [place] 1.025 (1.000-1.030) Urine Protein 3+ A (Negative) Urine Glucose (UA) 2+ A (Negative) Urine Ketones 1+ A (Negative) Urine Blood 3+ A (Negative) Urine Nitrite Negative (Negative) Urine Bilirubin Negative (Negative) Urine Urobilinogen 0.2 (0.2-1.0) Ur Leukocyte Esterase 2+ A (Negative) Urine RBC >100 A (0-2) Urine WBC >100 A (0-5) Ur Squamous Epith Cells Many A (None-Few) Urine Bacteria Moderate A (None) SARS-CoV-2 (PCR) Negative SARS-CoV-2 (Negative) Influenza Type A (PCR) Negative PCR FLU A (Negative) Influenza Type B (PCR) Negative PCR FLU B (Negative) POC Troponin I (0.01-0.04) ng/ml 01/12/24 01/12/24 01/12/24 Range/Units 15:27 17:00 17:50 WBC (4.50-11.00) K/uL RBC (4.00-5.20) m/uL Hgb (12.0-16.0) gm/dL Hct (33.0-51.0) % MCV (80-100) fL MCH (26-34) pg MCHC (32-36) gm/dL RDW Coeff of Stefan (11.5-15.5) % Plt Count (140-440) K/uL Neut % (Auto) (42.0-72.0) % Lymph % (Auto) (20-44) % [place] % (Auto) (0.0-11.0) % Eos % (Auto) (0.0-7.0) % Baso % (Auto) (0.0-3.0) % Neut # (Auto) (1.7-7.0) K/uL Lymph # (Auto) (0.90-2.90) K/uL [place] # (Auto) (0.00-0.90) K/UL Eos # (Auto) (0.00-0.50) K/uL Baso # (Auto) (0.00-0.30) K/uL Abs Immat Gran (auto) (0.00-0.30) K/uL Imm/Tot Granulo (auto) % VBG pH 7.144 L* (7.32-7.43) VBG pCO2 37 L (40-50) mmHG VBG pO2 51.3 H (25-47) mmHG VBG HCO3 13 L (21-28) mmol/L Sodium 130 L (135-149) mmol/L Potassium 6.6 H* 5.1 (3.6-5.1) mmol/L Chloride 94 L (96-114) mmol/L Carbon Dioxide 10 L (20-32) mmol/L Anion Gap 26 H (7-15) mEq/L BUN 76 H (7-30) mg/dL Creatinine 4.0 H (0.5-1.5) mg/dL Estimated Creat Clear 11.53 Estimated GFR 12 ml/min Glucose 1057 H* 859 H* (60-115) mg/dL Lactate 4.8 H* (0.5-1.9) mmol/L Calcium 8.1 L (8.4-10.6) mg/dL Magnesium (1.5-2.6) mg/dL Total Bilirubin (0.1-1.5) mg/dL Direct Bilirubin (0.0-0.5) mg/dL AST (12-35) U/L ALT (4-35) U/L Alkaline Phosphatase (40-150) U/L Troponin I (0.01-0.04) ng/mL C-Reactive Protein (0.5-1.0) mg/dL NT-Pro-B Natriuret Pep pg/mL Total Protein (6.0-8.3) g/dL Albumin (3.3-5.0) g/dL Urine Color (Yellow) Urine Appearance (Clear) Urine pH (5.0-8.5) Ur Specific [place] (1.000-1.030) Urine Protein (Negative) Urine Glucose (UA) (Negative) Urine Ketones (Negative) Urine Blood (Negative) Urine Nitrite (Negative) Urine Bilirubin (Negative) Urine Urobilinogen (0.2-1.0) Ur Leukocyte Esterase (Negative) Urine RBC (0-2) Urine WBC (0-5) Ur Squamous Epith Cells (None-Few) Urine Bacteria (None) SARS-CoV-2 (PCR) (Negative) Influenza Type A (PCR) (Negative) Influenza Type B (PCR) (Negative) POC Troponin I 0.01 (0.01-0.04) ng/ml 01/12/24 Range/Units 18:58 WBC (4.50-11.00) K/uL RBC (4.00-5.20) m/uL Hgb (12.0-16.0) gm/dL Hct (33.0-51.0) % MCV (80-100) fL MCH (26-34) pg MCHC (32-36) gm/dL RDW Coeff of Stefan (11.5-15.5) % Plt Count (140-440) K/uL Neut % (Auto) (42.0-72.0) % Lymph % (Auto) (20-44) % [place] % (Auto) (0.0-11.0) % Eos % (Auto) (0.0-7.0) % Baso % (Auto) (0.0-3.0) % Neut # (Auto) (1.7-7.0) K/uL Lymph # (Auto) (0.90-2.90) K/uL [place] # (Auto) (0.00-0.90) K/UL Eos # (Auto) (0.00-0.50) K/uL Baso # (Auto) (0.00-0.30) K/uL Abs Immat Gran (auto) (0.00-0.30) K/uL Imm/Tot Granulo (auto) % VBG pH (7.32-7.43) VBG pCO2 (40-50) mmHG VBG pO2 (25-47) mmHG VBG HCO3 (21-28) mmol/L Sodium (135-149) mmol/L Potassium (3.6-5.1) mmol/L Chloride (96-114) mmol/L Carbon Dioxide (20-32) mmol/L Anion Gap (7-15) mEq/L BUN (7-30) mg/dL Creatinine (0.5-1.5) mg/dL Estimated Creat Clear Estimated GFR ml/min Glucose 783 H* (60-115) mg/dL Lactate (0.5-1.9) mmol/L Calcium (8.4-10.6) mg/dL Magnesium (1.5-2.6) mg/dL Total Bilirubin (0.1-1.5) mg/dL Direct Bilirubin (0.0-0.5) mg/dL AST (12-35) U/L ALT (4-35) U/L Alkaline Phosphatase (40-150) U/L Troponin I (0.01-0.04) ng/mL C-Reactive Protein (0.5-1.0) mg/dL NT-Pro-B Natriuret Pep pg/mL Total Protein (6.0-8.3) g/dL Albumin (3.3-5.0) g/dL Urine Color (Yellow) Urine Appearance (Clear) Urine pH (5.0-8.5) Ur Specific [place] (1.000-1.030) Urine Protein (Negative) Urine Glucose (UA) (Negative) Urine Ketones (Negative) Urine Blood (Negative) Urine Nitrite (Negative) Urine Bilirubin (Negative) Urine Urobilinogen (0.2-1.0) Ur Leukocyte Esterase (Negative) Urine RBC (0-2) Urine WBC (0-5) Ur Squamous Epith Cells (None-Few) Urine Bacteria (None) SARS-CoV-2 (PCR) (Negative) Influenza Type A (PCR) (Negative) Influenza Type B (PCR) (Negative) POC Troponin I (0.01-0.04) ng/ml <Julio Ritter MD - Last Filed: 01/12/24 15:37> Lab Results 01/12/24 01/12/24 01/12/24 Range/Units 13:56 13:59 15:02 WBC 16.99 H (4.50-11.00) K/uL RBC 3.94 L (4.00-5.20) m/uL Hgb 11.4 L (12.0-16.0) gm/dL Hct 39.2 (33.0-51.0) % MCV 100 (80-100) fL MCH 29 (26-34) pg MCHC 29 L (32-36) gm/dL RDW Coeff of Stefan 13.9 (11.5-15.5) % Plt Count 354 (140-440) K/uL Neut % (Auto) 86.3 H (42.0-72.0) % Lymph % (Auto) 6.1 L (20-44) % [place] % (Auto) 6.7 (0.0-11.0) % Eos % (Auto) 0.1 (0.0-7.0) % Baso % (Auto) 0.2 (0.0-3.0) % Neut # (Auto) 14.70 H (1.7-7.0) K/uL Lymph # (Auto) 1.00 (0.90-2.90) K/uL [place] # (Auto) 1.10 H (0.00-0.90) K/UL Eos # (Auto) 0.00 (0.00-0.50) K/uL Baso # (Auto) 0.00 (0.00-0.30) K/uL Abs Immat Gran (auto) 0.10 (0.00-0.30) K/uL Imm/Tot Granulo (auto) 0.6 % VBG pH 6.976 L* (7.32-7.43) VBG pCO2 36 L (40-50) mmHG VBG pO2 75.2 H (25-47) mmHG VBG HCO3 8 L (21-28) mmol/L Sodium 121 L* (135-149) mmol/L Potassium 8.6 H* (3.6-5.1) mmol/L Chloride 83 L (96-114) mmol/L Carbon Dioxide < 5 L* (20-32) mmol/L Anion Gap 33 H (7-15) mEq/L BUN 79 H (7-30) mg/dL Creatinine 4.4 H (0.5-1.5) mg/dL Estimated Creat Clear 10.48 Estimated GFR 11 ml/min Glucose 1195 H* (60-115) mg/dL Lactate 6.6 H* (0.5-1.9) mmol/L Calcium 8.3 L (8.4-10.6) mg/dL Magnesium 2.3 (1.5-2.6) mg/dL Total Bilirubin 0.6 (0.1-1.5) mg/dL Direct Bilirubin 0.6 H (0.0-0.5) mg/dL AST 31 (12-35) U/L ALT 29 (4-35) U/L Alkaline Phosphatase 167 H (40-150) U/L Troponin I < 0.01 L (0.01-0.04) ng/mL C-Reactive Protein 3.5 H (0.5-1.0) mg/dL NT-Pro-B Natriuret Pep 1930 pg/mL Total Protein 6.8 (6.0-8.3) g/dL Albumin 4.0 (3.3-5.0) g/dL Urine Color Light yellow (Yellow) Urine Appearance Turbid A (Clear) Urine pH 5.5 (5.0-8.5) Ur Specific [place] 1.025 (1.000-1.030) Urine Protein 3+ A (Negative) Urine Glucose (UA) 2+ A (Negative) Urine Ketones 1+ A (Negative) Urine Blood 3+ A (Negative) Urine Nitrite Negative (Negative) Urine Bilirubin Negative (Negative) Urine Urobilinogen 0.2 (0.2-1.0) Ur Leukocyte Esterase 2+ A (Negative) Urine RBC >100 A (0-2) Urine WBC >100 A (0-5) Ur Squamous Epith Cells Many A (None-Few) Urine Bacteria Moderate A (None) SARS-CoV-2 (PCR) Negative SARS-CoV-2 (Negative) Influenza Type A (PCR) Negative PCR FLU A (Negative) Influenza Type B (PCR) Negative PCR FLU B (Negative) POC Troponin I (0.01-0.04) ng/ml 01/12/24 01/12/24 01/12/24 Range/Units 15:27 17:00 17:50 WBC (4.50-11.00) K/uL RBC (4.00-5.20) m/uL Hgb (12.0-16.0) gm/dL Hct (33.0-51.0) % MCV (80-100) fL MCH (26-34) pg MCHC (32-36) gm/dL RDW Coeff of Stefan (11.5-15.5) % Plt Count (140-440) K/uL Neut % (Auto) (42.0-72.0) % Lymph % (Auto) (20-44) % [place] % (Auto) (0.0-11.0) % Eos % (Auto) (0.0-7.0) % Baso % (Auto) (0.0-3.0) % Neut # (Auto) (1.7-7.0) K/uL Lymph # (Auto) (0.90-2.90) K/uL [place] # (Auto) (0.00-0.90) K/UL Eos # (Auto) (0.00-0.50) K/uL Baso # (Auto) (0.00-0.30) K/uL Abs Immat Gran (auto) (0.00-0.30) K/uL Imm/Tot Granulo (auto) % VBG pH 7.144 L* (7.32-7.43) VBG pCO2 37 L (40-50) mmHG VBG pO2 51.3 H (25-47) mmHG VBG HCO3 13 L (21-28) mmol/L Sodium 130 L (135-149) mmol/L Potassium 6.6 H* 5.1 (3.6-5.1) mmol/L Chloride 94 L (96-114) mmol/L Carbon Dioxide 10 L (20-32) mmol/L Anion Gap 26 H (7-15) mEq/L BUN 76 H (7-30) mg/dL Creatinine 4.0 H (0.5-1.5) mg/dL Estimated Creat Clear 11.53 Estimated GFR 12 ml/min Glucose 1057 H* 859 H* (60-115) mg/dL Lactate 4.8 H* (0.5-1.9) mmol/L Calcium 8.1 L (8.4-10.6) mg/dL Magnesium (1.5-2.6) mg/dL Total Bilirubin (0.1-1.5) mg/dL Direct Bilirubin (0.0-0.5) mg/dL AST (12-35) U/L ALT (4-35) U/L Alkaline Phosphatase (40-150) U/L Troponin I (0.01-0.04) ng/mL C-Reactive Protein (0.5-1.0) mg/dL NT-Pro-B Natriuret Pep pg/mL Total Protein (6.0-8.3) g/dL Albumin (3.3-5.0) g/dL Urine Color (Yellow) Urine Appearance (Clear) Urine pH (5.0-8.5) Ur Specific [place] (1.000-1.030) Urine Protein (Negative) Urine Glucose (UA) (Negative) Urine Ketones (Negative) Urine Blood (Negative) Urine Nitrite (Negative) Urine Bilirubin (Negative) Urine Urobilinogen (0.2-1.0) Ur Leukocyte Esterase (Negative) Urine RBC (0-2) Urine WBC (0-5) Ur Squamous Epith Cells (None-Few) Urine Bacteria (None) SARS-CoV-2 (PCR) (Negative) Influenza Type A (PCR) (Negative) Influenza Type B (PCR) (Negative) POC Troponin I 0.01 (0.01-0.04) ng/ml 01/12/24 Range/Units 18:58 WBC (4.50-11.00) K/uL RBC (4.00-5.20) m/uL Hgb (12.0-16.0) gm/dL Hct (33.0-51.0) % MCV (80-100) fL MCH (26-34) pg MCHC (32-36) gm/dL RDW Coeff of Stefan (11.5-15.5) % Plt Count (140-440) K/uL Neut % (Auto) (42.0-72.0) % Lymph % (Auto) (20-44) % [place] % (Auto) (0.0-11.0) % Eos % (Auto) (0.0-7.0) % Baso % (Auto) (0.0-3.0) % Neut # (Auto) (1.7-7.0) K/uL Lymph # (Auto) (0.90-2.90) K/uL [place] # (Auto) (0.00-0.90) K/UL Eos # (Auto) (0.00-0.50) K/uL Baso # (Auto) (0.00-0.30) K/uL Abs Immat Gran (auto) (0.00-0.30) K/uL Imm/Tot Granulo (auto) % VBG pH (7.32-7.43) VBG pCO2 (40-50) mmHG VBG pO2 (25-47) mmHG VBG HCO3 (21-28) mmol/L Sodium (135-149) mmol/L Potassium (3.6-5.1) mmol/L Chloride (96-114) mmol/L Carbon Dioxide (20-32) mmol/L Anion Gap (7-15) mEq/L BUN (7-30) mg/dL Creatinine (0.5-1.5) mg/dL Estimated Creat Clear Estimated GFR ml/min Glucose 783 H* (60-115) mg/dL Lactate (0.5-1.9) mmol/L Calcium (8.4-10.6) mg/dL Magnesium (1.5-2.6) mg/dL Total Bilirubin (0.1-1.5) mg/dL Direct Bilirubin (0.0-0.5) mg/dL AST (12-35) U/L ALT (4-35) U/L Alkaline Phosphatase (40-150) U/L Troponin I (0.01-0.04) ng/mL C-Reactive Protein (0.5-1.0) mg/dL NT-Pro-B Natriuret Pep pg/mL Total Protein (6.0-8.3) g/dL Albumin (3.3-5.0) g/dL Urine Color (Yellow) Urine Appearance (Clear) Urine pH (5.0-8.5) Ur Specific [place] (1.000-1.030) Urine Protein (Negative) Urine Glucose (UA) (Negative) Urine Ketones (Negative) Urine Blood (Negative) Urine Nitrite (Negative) Urine Bilirubin (Negative) Urine Urobilinogen (0.2-1.0) Ur Leukocyte Esterase (Negative) Urine RBC (0-2) Urine WBC (0-5) Ur Squamous Epith Cells (None-Few) Urine Bacteria (None) SARS-CoV-2 (PCR) (Negative) Influenza Type A (PCR) (Negative) Influenza Type B (PCR) (Negative) POC Troponin I (0.01-0.04) ng/ml <Annalee Troncoso MD - Last Filed: 01/12/24 20:15> Imaging Data Chest x-ray: Attestation: I have reviewed the pertinent imaging results. <Annalee Troncoso MD - Last Filed: 01/12/24 20:15> Radiologist's impression: Chest 1 portable view. COMPARISON: None. FINDINGS: Right IJ catheter terminates in the distal SVC. No pneumothorax or pleural effusion. Lungs are clear. Cardiac and mediastinal contours are within normal limits. Upper abdomen and osseous structures as imaged show no acute abnormality. IMPRESSION: Right IJ catheter terminates in the distal SVC. No pneumothorax. <Annalee Troncoso MD - Last Filed: 01/12/24 20:15> ECG Data Attestation: I personally reviewed and interpreted this ECG as follows: <Annalee Troncoso MD - Last Filed: 01/12/24 20:15> Critical Care Time Critical Care Time Total Critical Care Time in Minutes: 120 <Annalee Troncoso MD - Last Filed: 01/12/24 20:15> Discharge Plan Discharge Clinical Impression: DKA (diabetic ketoacidosis), Sepsis <Julio Ritter MD - Last Filed: 01/12/24 15:37> Patient Disposition: er [facility] <Julio Ritter MD - Last Filed: 01/12/24 15:37> Condition: Critical <Julio Ritter MD - Last Filed: 01/12/24 15:37> Prescriptions: No Action atorvastatin 20 mg tablet 20 mg PO QPM torsemide 20 mg tablet 40 mg PO DAILY cetirizine 5 mg tablet 5 mg PO DAILY sennosides-docusate sodium [Stool Softener-Stimulant Laxat] 8.6-50 mg tablet 2 tab PO BID losartan 25 mg tablet 12.5 mg PO DAILY omeprazole 20 mg capsule,delayed release(DR/EC) 20 mg PO DAILY metoprolol succinate 25 mg tablet extended release 24 hr 25 mg PO DAILY oxycodone 5 mg tablet 5 mg PO BID PRN duloxetine 60 mg capsule,delayed release(DR/EC) 60 mg PO DAILY pregabalin 50 mg capsule 150 mg PO HS pregabalin 100 mg capsule 200 mg PO QAM cholecalciferol (vitamin D3) 50 mcg (2,000 unit) capsule 50 mcg PO DAILY buprenorphine 5 mcg/hour patch weekly 1 patch transdermal Q7D polyethylene glycol 3350 [Miralax] 17 gram/dose powder 17 g PO BID amlodipine 2.5 mg tablet 2.5 mg PO BID vitamin V60-ejsfh acid 2,500-400 mcg tablet,disintegrating 1 tab PO DAILY levothyroxine 125 mcg tablet 125 mcg PO DAILY insulin glargine [Lantus Solostar U-100 Insulin] 100 unit/mL (3 mL) insulin pen 15 unit subcut QPM acetaminophen 650 mg tablet extended release 1,300 mg PO Q8H insulin aspart U-100 [Novolog FlexPen U-100 Insulin] 100 unit/mL (3 mL) Insulin Pen 8 unit subcut TIDWM Qty: 15 0RF <Julio Ritter MD - Last Filed: 01/12/24 15:37> Follow Up/Referrals: Barbara Valentin DO [Primary Care Provider] - <Julio Ritter MD - Last Filed: 01/12/24 15:37> [facility] <Julio Ritter MD - Last Filed: 01/12/24 15:37> Procedures Central Line Placement Right IJ: Written consent by: health care proxy (Verbal consent obtained over the phone from the patient's son by Dr. Troncoso.) <Julio Ritter MD - Last Filed: 01/12/24 15:37> Site marking: not applicable <Julio Ritter MD - Last Filed: 01/12/24 15:37> Technique: non-tunneled <Julio Ritter MD - Last Filed: 01/12/24 15:37> Image guidance used: US guidance <Julio Ritter MD - Last Filed: 01/12/24 15:37> Verification/time out: correct patient, correct site, correct procedure and time out performed <Julio Ritter MD - Last Filed: 01/12/24 15:37> Name of person performing procedure: Julio Ritter <Julio Ritter MD - Last Filed: 01/12/24 15:37> Anesthesia: lidocaine 1% and with Epi <Julio Ritter MD - Last Filed: 01/12/24 15:37> Amount of anesthesia used (mL): 5 <Julio Ritter MD - Last Filed: 01/12/24 15:37> Patient Placed on Monitor/Pulse Ox: Yes <Julio Ritter MD - Last Filed: 01/12/24 15:37> MD Prep: mask, gown and gloves <Julio Ritter MD - Last Filed: 01/12/24 15:37> Central Line Prep: Chlorhexidine scrub <Julio Ritter MD - Last Filed: 01/12/24 15:37> Ultrasound Used for Placement: Yes <Julio Ritter MD - Last Filed: 01/12/24 15:37> Central Line Lumen Inserted: triple <Julio Ritter MD - Last Filed: 01/12/24 15:37> Post Procedure: sutured in place, good blood return, all ports aspirated, flushed, capped and sterile dressing applied <Julio Ritter MD - Last Filed: 01/12/24 15:37> Post Procedure X-Ray: tip of catheter in good position and no pneumothorax seen <Julio Ritter MD - Last Filed: 01/12/24 15:37> Estimated blood loss (if any): less than 5mls <Julio Ritter MD - Last Filed: 01/12/24 15:37> Complications: none <Julio Ritter MD - Last Filed: 01/12/24 15:37> Patient Tolerated Procedure: well <Julio Ritter MD - Last Filed: 01/12/24 15:37> Additional Comments: Ultrasound localization of the right IJ was a undertaken. Images saved to the so no site hard drive. Direct ultrasound active guidance was used during the procedure. We obtained flash of dark red venous blood. Care was taken not to ?back wall? the IJ. we advanced the guidewire without difficulty. A couple of PVCs were noted with the guidewire in place. No other ectopy or arrhythmia. The tract was dilated. I advanced the triple-lumen central line over the guidewire. It was secured with sutures with the tip 15 cm from the skin. Biosite was placed. Line was flushed again. No air was in the lines. Post placement chest x-ray confirmed the IJ with the tip in the SVC just above the right atrium. No visible pneumothorax. Possible infiltrate in the right upper lung. <Julio Ritter MD - Last Filed: 01/12/24 15:37>
--- NOTE | 2024-01-12 15:34 | ED.NURSE ---
Critical labs handed to Dr. Troncoso
[2024-01-12 15:46] LABS: PCR FLU A Negative PCR FLU A (Negative); PCR FLU B Negative PCR FLU B (Negative); SARS PCR* Negative SARS-CoV-2 (Negative)
[2024-01-12] MEDS: SODIUM BICARBONATE 50 MEQ/50ML SYRINGE IVP (15:51)
[2024-01-12 16:08] LABS: Potassium* 6.6 mmol/L (3.6-5.1)
[2024-01-12 16:27] LABS: HCO3 VBG 8 mmol/L (21-28); PCO2 VBG 36 mmHG (40-50); PO2 VBG 75.2 mmHG (25-47)
[2024-01-12 16:35] LABS: pH VBG 6.976 (7.32-7.43)
[2024-01-12 16:36] LABS: Glucose* 1057 mg/dL (60-115)
[2024-01-12 16:38] LABS: Lactate* 6.6 mmol/L (0.5-1.9)
[2024-01-12] MEDS: PIPERACILLIN/TAZOBACTAM 3.375 GM in 0.9 % SODIUM CHLORIDE Mini-bag 100 ML IVPB (16:47)
[2024-01-12] MEDS: INSULIN REGULAR, HUMAN 100 UNIT/ML VIAL 10 UNIT IVP (16:47)
[2024-01-12 17:13] LABS: Troponin, Point-of-Care* 0.01 ng/ml (0.01-0.04)
[2024-01-12] MEDS: 0.9 % SODIUM CHLORIDE 1000 ml 1,000 ML 250 ML IV (17:20)
[2024-01-12 17:57] LABS: HCO3 VBG 13 mmol/L (21-28); PCO2 VBG 37 mmHG (40-50); PO2 VBG 51.3 mmHG (25-47)
[2024-01-12 18:06] LABS: Lactate* 4.8 mmol/L (0.5-1.9)
[2024-01-12 18:07] LABS: pH VBG 7.144 (7.32-7.43)
[2024-01-12] MEDS: 0.9 % SODIUM CHLORIDE 1000 ml 1,000 ML 200 ML IV (18:31)
--- NOTE | 2024-01-12 18:50 | ED.NURSE ---
Skin Assessment was completed on pt because she is a diabetic. Pt has a sore on the top of her left hand from a previous IV placement. 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 Left heel wound was cleaned and changed and new mepilex was put on. Pt was rolled and there are no wounds to her back or her coccyx or lower legs.
[2024-01-12 18:51] LABS: Chloride* 94 mmol/L (96-114); Potassium* 5.1 mmol/L (3.6-5.1); Sodium* 130 mmol/L (135-149)
[2024-01-12 18:54] LABS: Anion Gap 26 mEq/L (7-15); Blood Urea Nitrogen* 76 mg/dL (7-30); Calcium* 8.1 mg/dL (8.4-10.6); Carbon Dioxide* 10 mmol/L (20-32); Est. Creatinine Clearance* 11.53; Estimated Glomerular Filt Rate 12 ml/min
[2024-01-12 19:03] LABS: Glucose* 859 mg/dL (60-115)
[2024-01-12 19:40] LABS: Glucose* 783 mg/dL (60-115)
== END 2024-01-12 20:36 | disposition short-term general hospital (02) ==
PROVIDERS: Emergency Provider Family Medicine; PCP Family Medicine
DX: E11.10 Type 2 diabetes mellitus with ketoacidosis without coma (principal); A41.9 Sepsis, unspecified organism
CPT/HCPCS: 36556; 36415; 71045; 80048; 80076; 81001; 82803; 82947; 82962; 83605; 83735; 83880; 84132; 84484; 85025; 86140; 87040; 87086; 87186; 87631; 93005; 94761; 96365; 96366; 96375; 99285; 99291; 99292; A0425; A0427; A0434; J0613; J1815; J2543; J3370; J3590; J7030

== ENCOUNTER 2024-01-12 20:10 | Outpatient (CLI) | payer OTHER, SELFPAY ==
--- OUTSIDE RECORDS SUMMARY | 2024-01-18 19:38 | XMS_ITS | Encounter Summary ---
Author Organization [facility] Address [address] [place] [address] Care Team Providers Care Supervisor Telephone Information Name Role Phone Barbara Valentin DO Primary Care Provider Kevin zepeda Reason for Visit * Reason Comments CKD New Patient * Nephrology Services (Urgent) - Closed Specialty Diagnoses / Procedures Referred By Contac t Referred To Contact Nephrology Diagnoses Chronic kidney disease stage 4 (HCC) Barbara Valentin DO [address] [place] [address] Elian Humphrey MD [address] [place] [address] Referral ID Status Reason Start Date Expiration Date Visits Re quested Visits Authorized [id number] Closed 09/22/2023 09/21/2024 1 1 Encounter Details Date Type Department Care Team (Latest Contact Info) Description 11/10/2023 3:30 PM EDT Office Visit [facility] [address] [place] [address] Gabriel Hicks MD [address] [place] [address] Chronic kidney disease, stage 4 [...] Hicks/RAFAEL Acosta Welcome to [facility] Although we are experts in the [...] in caring for renal patients. If your Machine Umbrella Tipper deems it appropriate, you will be scheduled [...] healthy, so we do have a Renal Senior Applications Architect to help you with this. We encourage [...] let them know that you see a chrome plater helper for your kidney disease. Ask that they contact your chrome plater helper before this type of test is scheduled. [...] Doctors, Advanced Practice Providers, nurses, and Renal Senior Applications Architect are here to provide you with the best renal care. We want you to feel free to call us when you have questions or concerns. To call the nurse at your chrome plater helper's office, please see the address and telephone number listed on your After Visit Summary. Thank you, The Physicians and staff at [facility] UNDERSTANDING YOUR BLOOD PRESSURE & LAB [...] Mikayla Kuhn Date of : 1960 Chart: [id number] PCP: Barbara Valentin DO Referring Provider: Barbara [...] her close friend who also is her VICE PRESIDENT SUPPLY CHAIN. No recent illnesses or hospitalizations. Tolerating her [...] 05/12/2024). Gabriel Hicks MD [facility] [place] The following portions of the patient's chart [...] MG/DOSE powder Yuni Olea MD Inhale 1 [place] into affected nostril(s) each time if needed [...] [place] [address] [place] [phone] Sandy Jimenez, AUTOMOTIVE TEACHER-HOUSE MOVER [address] [place] [phone] Scheduled Orders Name Type Priority Associated Diagnoses [...] disease documented in this encounter Care Teams Supervisor Telephone Information Relationship Specialty Start Date End Date Barbara Valentin DO [place] [place] [address] PCP - General Family Medicine 09/22/23 documented as of this encounter
--- OUTSIDE RECORDS SUMMARY | 2024-01-18 19:38 | XMS_ITS | Encounter Summary ---
Author Organization [facility] Address [address] [place] [address] Care Team Providers Care Case Assembler Name Role Phone Barbara Valentin Primary Care Provider Kevin zepeda Encounter Details Date Type Department Care Team (Late st Contact Info) Description 11/10/2023 Documentation Only [facility] [place] [address] Dave Hurst [address] [facility] [address] [place] [address] Social History Tobacco Use Types [...] EDT Office Visit [facility] [address] [place] [address] Sandy Jimenez, CARDIOLOGIST-BUSINESS CONTINUITY DIRECTOR [address] [place] [address] documented as of this encounter [...] LAB BLOOD ORDERAB LES Performing Organization Address City/State/[facility] Co de Phone Number [facility] * [...] * (ABNORMAL) Albumin/Creatinine in Urine (05/19/2023) Pathologist [facility] Albumin, Urine 55.6 mg/L [facility] Creatinine, Urine Random 0.53 g/L [facility] Alb/Creat Ratio, Ur 104.9(H) mg/g Creat [facility] Urine (Urine) 05/19/2023 Historical Provider LAB URINE ORDERAB LES BESSY * (ABNORMAL) CBC (02/28/2023) Pathologist [facility] WBC 4.6 K/uL [facility] Red Blood Cell [...] on filedocumented in this encounter Care Teams Case Assembler Relationship Specialty Start Date End Date Barbara Valentin DO [address] [place] [address] PCP - General Family Medicine 09/22/23 documented as of this encounter
--- OUTSIDE RECORDS SUMMARY | 2024-01-18 19:38 | XMS_ITS | Clinical Summary ---
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); Chronic diastolic congestive heart failure (HCC); Secondary hyperparathyroidism of renal origin (HCC); Anemia in chronic kidney disease 11/10/2023 Documentation Only [facility] [place] [address] Ericka Hurst from Last 3 Months Immunizations [...] AM EDT Office Visit [facility] [place] [address] [facility] [address] [place] [phone] Sandy Jimenez, RESEARCH PROGRAMMER-BIRD TRAPPER [address] [facility] [address] [place] [phone] Health Maintenance Due Date Last Done Comments [...] age to complete this topic Care Teams Zoogler Relationship Specialty Start Date End Date Barbara Valentin DO [address] [place] [address] PCP - General Family Medicine 09/22/23
--- OUTSIDE RECORDS SUMMARY | 2024-01-18 19:38 | XMS_ITS | Encounter Summary ---
Author Organization [facility] [place] Address [address] [place] [address] Care Team Providers Care Briar Shop Supervisor Name Role Phone Barbara Valentin DO Primary Care Provider Kevin zepeda Encounter Details Date Type Department Care Team (Late st Contact Info) Description 09/22/2023 Documentation Only [facility] [place] [address] [facility] [address] [place] [phone] No, Pcp Social History Tobacco Use Types [...] AM EDT Office Visit [facility] [place] [address] [place] [phone] Sandy Jimenez, DOCKET CLERK-HYDROMETEOROLOGY TEACHER [address] [place] [phone] documented as of this encounter Visit Diagnoses Not on filedocumented in this encounter Care Teams Briar Shop Supervisor Relationship Specialty Start Date End Date Barbara Valentin DO [address] [place] [address] PCP - General Family Medicine 09/22/23 documented as of this encounter
--- OUTSIDE RECORDS SUMMARY | 2024-01-18 19:38 | XMS_ITS | Encounter Summary ---
Author Organization [facility] Address [address] [place] [address] Care Team Providers Care Senior Software Manager Name Role Phone Barbara Valentin DO Primary Care Provider Kevin zepeda Encounter Details Date Type Department Care Team (Late st Contact Info) Description 09/23/2023 Office Communication [facility] [place] [address] [place] [address] Barbara Valentin DO [address] [place] [address] Social History Tobacco Use Types Packs/Day Years [...] EDT Office Visit [facility] [place] [address] [place] [phone] Sandy Jimenez, FURNITURE INSTALLER-PRECISION OPTICAL GOODS WORKER [address] [place] [phone] documented as of this encounter Visit Diagnoses Not on filedocumented in this encounter Care Teams Senior Software Manager Relationship Specialty Start Date End Date Barbara Valent[place] [address] PCP - General Family Medicine 09/22/23 documented as of this encounter
--- OUTSIDE RECORDS SUMMARY | 2024-01-18 19:39 | XMS_ITS | Clinical Summary ---
Author Organization [facility] Address [place], [place] [address] Care Team Providers Care Laundry Washer Name Role Phone Julio Ibrahim MD Unavailable [phone] Chuy Doss MD Unavailable [phone] Markel Strong MD Unavailable Nikolai Ibarra MD Unavailable [phone] Barbara Valentin DO Primary Care Provider [facility] [place] Unavailable [phone] Allergies Active Allergy Reactions Criticality Noted Date [...] mellitus at risk of hypoglycemia Inhale 1 Lorado into affected nostril(s) each time if needed for Severe Hypoglycemia. Roll on side and call 911 after administration. 2 Each 12/25/19 22 Active fluticasone (50 mcg per actuation) nasal solution (FLONASE)Indicatio ns:Nasal congestion Inhale 1 Lorado into affected nostril(s) once daily. Inhale 1 Lorado in the nostril(s) once daily. 16 g [...] 04/20/20 23 Active continuous glucose monitor READER (Nuserv Elli 2 Irwin)Indications :Type 1 diabetes mellitus with other specified complication (HC) To be used to read blood sugars per coil cutter's directions. 1 Each 05/19/20 23 Active blood-glucose [...] be used to read blood sugars per coil cutter's directions. 6 Each 3 09/06/19 24 Active [...] history (E-cancel not sent)) blood sugar diagnostic (Sewing [employer] Demonstrator Express Test Strip) stripIndications:U ncontrolled type 1 [...] substance agreement signed - 10/07/23 10/07/2023 Overview: [facility] Noemí Dennis .................... 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/2017 Hospitalized with ketoacidosis 06/2017 [...] post total right knee replacement 01/02/2015 06/10/2017 [facility] (current) use of anticoagulants 11/27/2013 12/28/2013 Anticoagulation [...] 01/18/2024 10:30 AM CDT Phone Office Visit [facility] [address] [place] [address] Nikolai Ibarra MD Arrived 01/18/2024 Patient Outreach [facility] [address] [place] [address] Maria R Ho, RN Primary RN Care Management; Hospital F/U (Lace 44) 01/18/2024 Travel 01/12/2024 9:13 PM CDT - 01/17/2024 5:23 PM CDT Hospital Encounter [facility] [address] [place] [address] Megan, MD Nedra Valverde, DO Chente Honeycutt, MD Dusty Manjarrez, MD Ricky Alston, Helder Hoover MD [facility], [facility] Hospitalists Of Opioid dependence, uncomplicated (HC) (Primary Dx); Nasal congestion; Chronic pain syndrome; Diabetic ketoacidosis without coma associated with type 1 diabetes mellitus (HC); 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, macular edema presence unspecified, unspecified laterality, unspecified proliferative retinopathy type (HC); Heel ulcer, right, with unspecified severity (HC) Discharge Disposition: Home Health 01/09/2024 Refill [facility] [address] [place] [address] Barbara Valentin DO Refill Request (Fluoxetine) 01/09/2024 Refill [facility] [address] [place] [address] Elian Humphrey MD Refill Request (Torsemide) 01/06/2024 4:00 PM CDT Office Visit [facility] [address] [place] [address] Toshia Hooks NP Follow Up; Pain (Multi source; was told by her Steel Loader she can ot use OTC Voltaren gel., which had been helping her O.A. pain (hands; wrists; shoulders; ) ) 01/06/2024 Travel 01/02/2024 Telephone [facility] [address] [place] [address] Barbara Valentin Patricia, DO Follow Up 12/27/2023 Refill [facility] [address] [place] [address] Barbara Valentin Patricia, DO Refill Request (Pregabalin, Cetirizine) 12/23/2023 2:35 PM CDT Office Visit [address] [address] Barbara Valentin, DO Diabetes (3 month check, labs); Rash (Rash under breasts? ) 12/23/2023 Travel 12/20/[address] [address] Barbara Valentin Patricia, DO Refill Request (Humalog Kwikpen Insulin) 12/16/2023 Refill [facility] [address] [place] [address] Toshia Hooks NP Refill Request (Patient son called requesting oxycodone 5 mg at [facility].////) 12/15/2023 Telephone [facility] [address] [place] [address] Barbara Valentin, DO Lab 12/08/[address] [address] Sir Valentini Patricia, DO Refill Request (Ulticare Pen Needle, Per-fit Underwear) 12/07/2023 Refill [facility] [address] [place] [address] Sir Valentini Patricia, DO Refill Request (Ulticare Pen Needle) 11/29/2023 Telephone [facility] [address] [place] [address] Barbie, Barbara Patricia, DO Referral 11/29/2023 Refill [facility] [address] [place] [address] Saúlqra Barbara Patricia, DO Refill Request (Cholecalciferol) 11/18/2023 Refill [facility] [address] [place] [address] Toshia Hooks, GISEL Refill Request (oxycodone 5 mg at [facility]) 11/17/2023 Telephone [facility] [address] [place] [address] Germanra Barbara Patricia, DO Questions (Vish rod R.N. top case assembler with [facility] has some questions for pcp) 11/15/2023 Refill [facility] [address] [place] [address] Germanra Barbara Patricia, DO Refill Request (Levothyroxine, Fluoxetine) 11/11/2023 Telephone [facility] [address] [place] [address] Germanra Barbara Patricia, DO questions and concerns (vish jennings R.N. called in with questions and concerns for PCP) 10/26/2023 Telephone [facility] [address] [place] [address] Saúlqra Barbara Patricia, DO Medication Management from [...] Description 01/20/2024 11:25 AM CDT Office Visit [facility] [address] [place] [address] Barbara Valentin, DO [address] [place] [address] 03/26/2024 3:25 PM CDT Office Visit [facility] [address] [place] [address] Barbara Valentin Patricia, DO [address] [place] [address] 05/04/2024 3:30 PM CDT Phone Office Visit [facility] [address] [place], [place] [id number] Nikolai Ibarra MD [address] [place] [address] Health Maintenance Due Date Last Done Comments [...] 03/18/2020, Additional history exists Fecal testing sDNA-FIT (Midkiff guard) for age 45-75 11/10/2024 11/10/2021 Pneumococcal series for age 6-64 (3 of 3 - PPSV23 or PCV20) 2026 08/17/2016, 08/14/2014, 07/04/2005, Additional history exists Lipids for age 45-75 04/28/2027 04/28/2022, 08/17/2019, 08/31/2018, Additional history exists Tdap Completed 08/25/2010 HIV for age 15-65 Completed 07/21/2015 Hepatitis C screening for ag e 18-79 Completed 02/16/2018 Medical Devices Implanted Type Area Fulfillment Associate Device Identifier Shelf Expiration Date Model / Serial / Lot [id number] 2x12mm [[id number]] Implanted:Qty: 1 on 08/08/2008 at [facility] Explanted:at [facility] (Quantity not on file) Stomach [employer] [id number]# / [id number] / Stem Compnt Primary 8mm Mini - [id number] Implanted:Qty: 1 on 03/17/2011 at [facility] Right: Shoulder BIOMET [id number]# / / [id number] Head Hum Bio-Mod [id number] - [id number] Implanted:Qty: 1 on 03/17/2011 at [facility] Right: Shoulder BIOMET [id number]# / / [id number] Base Glenoid Hybrid 4mm Sm - [id number] Implanted:Qty: 1 on 03/17/2011 at [facility] Right: Shoulder BIOMET [id number]# / / [id number] Cmnt 1/2 Dosehowmedica - [id number] Implanted:Qty: 1 on 03/17/2011 at [facility] Right: Shoulder [employer] 6188-1-01 0# / / [id number] Post Glenoid Hybrid Regenerex - [id number] Implanted:Qty: 1 on 03/17/2011 at [facility] Right: Shoulder BIOMET [id number] # / / [id number] Head Humeral 44x15 Co Cr Biomodular - [id number] Implanted:Qty: 1 on 07/12/2012 at [facility] Left: Shoulder BIOMET [id number]# / / [id number] Shoulder Stem Implanted:Qty: 1 on 07/12/2012 at [facility] Left: Shoulder [id number] / / [id number] Description:SHOULDER STEM Cmnt Bone 1/2 Dosehowmedica - [id number] Implanted:Qty: 1 on 07/12/2012 at [facility] Left: Shoulder [employer] 6188-1- 0# / / [id number] Post Glenoid Hybrid Regenerex - [id number] Implanted:Qty: 1 on 07/12/2012 at [facility] Left: Shoulder BIOMET [id number] # / / [id number] Base Glenoid Hybrid 4mm Sm - [id number] Implanted:Qty: 1 on 07/12/2012 at [facility] Left: Shoulder BIOMET [id number]# / / [id number] Procedures Procedure Name Priority Date/Time Associated Diagnosis [...] HIV 1/2 Add On 07/21/2015 9:40 AM SNOWBLOWER MECHANIC SUPERVISOR HAND SILVERING THIN PREP PAP SCREEN IMAGED Routine 08/17/2012 4:02 PM SNOWBLOWER MECHANIC Screening for malignant neoplasm of the [...] of36 resultswithin the time period is included. [facility] Signature GLUCOSE METER 156(H) 65 - 100 mg/dL 01/17/2024 11:35 AM CDT [facility] Blood BLOOD SPECIMEN / Unknown 01/17/2024 11:27 AM CDT 01/17/2024 11:35 AM CDT Helder García MD CHEMISTRY Performing Organization Address City/[facility] Co de Phone Number [facility] [address] [place] [address], [place] * (ABNORMAL) CREATININE (01/17/2024 8:20 AM CDT) Only the most recent of3 resultswithin the time period is included. eGFR 47(L) >90 mL/min/1.7 3m2 01/17/2024 9:06 AM CDT [facility] Comment:As of 2021, eG FR is calculated by the CKD-EPI creatinine equation without race adjustment. ??eGFR can be influenced by muscle mass, exercise, and diet. ??The reported eGFR is an estimation only and is only applicable if the renal function is stable. CREATININE 1.28(H) 0.50 - 0.90 mg/dL 01/17/2024 9:06 AM CDT [facility] Blood BLOOD SPECIMEN / Unknown Non-Lab Venipuncture / Unknown 01/17/2024 8:20 AM CDT 01/17/2024 8:26 AM CDT Helder García MD CHEMISTRY Performing Organization Address City/[facility]/ZIP Co de Phone Number [facility] [address] [place] [address], [place] * PHOSPHORUS (01/17/2024 8:20 AM CDT) Only the most recent of5 resultswithin the time period is included. PHOSPHORUS 2.6 2.5 - 4.5 mg/dL 01/17/2024 9:06 AM CDT [facility] Blood BLOOD SPECIMEN / Unknown Non-Lab Venipuncture / Unknown 01/17/2024 8:20 AM CDT 01/17/2024 8:26 AM CDT Sarah Betancourt RN CHEMISTRY [facility] [address] [place] [address], * (ABNORMAL) BASIC METABOLIC PANEL (01/17/2024 8:20 AM CDT) Only the most recent of5 resultswithin the time period is included. SODIUM 139 136 - 145 mmol/L 01/17/2024 12:35 PM CDT [facility] POTASSIUM 3.9 3.5 - 5.1 mmol/L 01/17/2024 12:35 PM CDT [facility] CHLORIDE 103 98 - 107 mmol/L 01/17/2024 12:35 PM CDT [facility] CO2,TOTAL 24 22 - 29 mmol/L 01/17/2024 12:35 PM CDT [facility] ANION GAP 12 5 - 18 01/17/2024 12:35 PM CDT [facility] GLUCOSE 162(H) 70 - 99 mg/dL 01/17/2024 12:35 PM T [facility] CALCIUM 8.7(L) 8.8 - 10.2 mg/dL 01/17/2024 12:35 PM CDT [facility] BUN 17 8 - 23 mg/dL 01/17/2024 12:35 PM T [facility] CREATININE 1.31(H) 0.50 - 0.90 mg/dL 01/17/2024 12:35 PM T [facility] BUN/CREAT RATIO 13 10 - 20 12:35 PM T [facility] eGFR 46(L) >90 mL/min/1.7 3m2 01/17/2024 12:35 PM T [facility] Comment: As of 2021, eGFR [...] Helder García MD CHEMISTRY Performing Organization Address [facility] de Phone Number [facility] [address] [place] [address], * CLOSTRIDIOIDES DIFFICILE TOXIN PCR (01/16/2024 12:27 PM CDT) Pathologist [facility] CLOSTRIDIUM DIFFICILE PCR Negative 01/16/2024 2:18 PM CDT [facility] PRESUMPTIVE NAP1 STRAIN Negative 01/16/2024 2:18 PM CDT [facility] Stool STOOL SPECIMEN / Unknown Non-Blood / Unknown 01/16/2024 12:27 PM CDT 01/16/2024 12:51 PM CDT Narrative [facility] - 01/16/2024 2:18 PM CDT The NAP1 (027 or BI) strain is a hypervirulent strain. Detection may be useful for epidemiological purposes. Helder García MD MICROBIOLOGY Performing Organization Address [facility] Co de Phone Number [facility] [address] [place] [address], * SCAN CORRESP-EKG RESULTS (01/16/2024 9:07 AM CDT) Narrative 01/16/2024 9:07 AM CDT Ordered by an unspecified provider. Other Clinical Staff OTHER * (ABNORMAL) HEMOGLOBIN (01/16/2024 6:30 AM CDT) Only the most recent of2 resultswithin the time period is included. Pathologist [facility] HEMOGLOBIN 8.9(L) 12.0 - 16.0 g/dL 01/16/2024 7:13 AM CDT [facility] MCV 91 80 - 100 fL 01/16/2024 7:13 AM CDT [facility] Blood BLOOD SPECIMEN / Unknown Venipuncture / Unknown 01/16/2024 6:30 AM CDT 01/16/2024 6:58 AM CDT Fabrizio Montano MD HEMATOLOGY Performing Organization Address [facility] de Phone Number [facility] [address] [place] [id number], [place] * VANCOMYCIN (01/16/2024 6:30 AM CDT) Only the most recent of3 resultswithin the time period is included. Pathologist [facility] VANCOMYCIN 13.0 ug/mL 01/16/2024 7:42 AM CDT [facility] Comment:No Reference Range D efined. DATE OF LAST DOSE,RANDOM Not Given 01/16/2024 7:42 AM CDT [facility] TIME OF LAST DOSE,RANDOM Not Given 01/16/2024 7:42 AM CDT [facility] Blood BLOOD SPECIMEN / Unknown Venipuncture / Unknown 01/16/2024 6:30 AM CDT 01/16/2024 6:58 AM CDT Barbara Holcomb NP CHEMISTRY Performing Organization Address [facility] Co de Phone Number [facility] [address] [place] [phone], [place] * (ABNORMAL) PLATELET COUNT (01/15/2024 6:02 AM CDT) [facility] [address] PLATELET COUNT 166 140 - 440 thou/cu mm 01/15/2024 6:44 AM CDT [facility] MPV 11.2(H) 6.5 - 11.0 fL 01/15/2024 6:44 AM CDT [facility] Blood BLOOD SPECIMEN / Unknown Venipuncture / Unknown 01/15/2024 6:02 AM CDT 01/15/2024 6:26 AM CDT Fabrizio Montano MD HEMATOLOGY Performing Organization Address City/[facility]/ZIP Co de Phone Number [facility] [address] [place] [address], [place] * WHITE BLOOD COUNT (01/15/2024 6:02 AM CDT) WHITE BLOOD COUNT 4.9 4.5 - 11.0 thou/cu mm 01/15/2024 6:44 AM CDT [facility] NRBC 0.0 % 01/15/2024 6:44 AM CDT [facility] ABS NRBC 0.0 thou /cu mm 01/15/2024 6:44 AM CDT [facility] Blood BLOOD SPECIMEN / Unknown Venipuncture / Unknown 01/15/2024 6:02 AM CDT 01/15/2024 6:26 AM CDT Fabrizio Montano MD HEMATOLOGY Performing Organization Address City/[facility]/ZIP Co de Phone Number [facility] [address] [place] [address], [place] * Sodium AM (01/15/2024 6:02 AM CDT) SODIUM 142 136 - 145 mmol/L 01/15/2024 7:13 AM CDT [facility] Blood BLOOD SPECIMEN / Unknown Venipuncture / Unknown 01/15/2024 6:02 AM CDT 01/15/2024 6:27 AM CDT Fabrizio Montano MD CHEMISTRY Performing Organization Address City/[facility]/ZIP Co de Phone Number [facility] [address] [place] [address], [place] * Potassium AM (01/15/2024 6:02 AM CDT) Only the most recent of3 resultswithin the time period is included. POTASSIUM 4.4 3.5 - 5.1 mmol/L 01/15/2024 7:13 AM CDT [facility] Blood BLOOD SPECIMEN / Unknown Venipuncture / Unknown 01/15/2024 6:02 AM CDT 01/15/2024 6:27 AM CDT Fabrizio Montano MD CHEMISTRY [facility] [address] [place] [address], * SCAN-CARDIAC STRIP (01/14/2024 7:07 AM CDT) Scanner OTHER * (ABNORMAL) CBC W PLT NO DIFF (01/14/2024 5:28 AM CDT) WHITE BLOOD COUNT 8.5 4.5 - 11.0 thou/cu mm 01/14/2024 6:33 AM CDT [facility] RED BLOOD COUNT 3.04(L) 4.00 - 5.20 mil/cu mm 01/14/2024 6:33 AM CDT [facility] HEMOGLOBIN 8.9(L) 12.0 - 16.0 g/dL 01/14/2024 6:33 AM T [facility] HEMATOCRIT 27.5(L) 33.0 - 51.0 % 01/14/2024 6:33 AM CDT [facility] MCV 91 80 - 100 fL 01/14/2024 6:33 AM CDT [facility] MCH 29.3 26.0 - 34.0 pg 01/14/2024 6:33 AM CDT [facility] MCHC 32.4 32.0 - 36.0 g/dL 01/14/2024 6:33 AM T [facility] RDW 14.4 11.5 - 15.5 % 01/14/2024 6:33 AM CDT [facility] PLATELET COUNT 198 140 - 440 thou/cu mm 01/14/2024 6:33 AM CDT [facility] MPV 11.4(H) 6.5 - 11.0 fL 01/14/2024 6:33 AM CDT [facility] NRBC 0.0 % 01/14/2024 6:33 AM CDT [facility] ABS NRBC 0.0 thou /cu mm 01/14/2024 6:33 AM CDT [facility] Blood BLOOD SPECIMEN / Unknown Non-Lab Venipuncture / Unknown 01/14/2024 5:28 AM CDT 01/14/2024 6:31 AM CDT Barbara Holcomb NP HEMATOLOGY Performing Organization Address City/[facility]/ZIP Co de Phone Number [facility] [address] [place] [address], * (ABNORMAL) CALCIUM IONIZED HOSPITAL DRAW ONLY (01/14/2024 5:28 AM CDT) Only the most recent of3 resultswithin the time period is included. CALCIUM,IONIZE D 1.30(H) 1.15 - 1.27 mmol/L 01/14/2024 6:03 AM CDT [facility] Blood BLOOD SPECIMEN / Unknown Non-Lab Venipuncture / Unknown 01/14/2024 5:28 AM CDT 01/14/2024 5:49 AM CDT Grace Eldridge MD CHEMISTRY [facility] [address] [place] [address], [place] * ECHO TTE COMPLETE W CONTRAST (01/13/2024 3:56 PM CDT) AORTIC VALVE MEAN PG 7 mmHg EJECTION FRACTION 64 % LVEDD 4.1 cm EJECTION FRACTION 60 - 65% Anatomical Region Laterality Modality Ultrasound 01/13/2024 2:53 PM CDT Narrative 01/13/2024 4:39 PM CDT ECHOCARDIOGRAM MIKAYLA KUHN ? Accession#: ?? [id number] : ?1960 63 years Study Date: ?? 01/13/2024 2:53:14 PM Gender: F ?BP: ? 114/44 mmHg Height: 152.00 cm ?BSA: ?1.93 m? ? ? Weight: 98.00 kg ? Tech: ? KBA ? Referring MD: BARBARA HOLCOMB Site: ? [facility] Reading Location: AN IP Patient Location: Inpatient. [...] documentation: 2 ml diluted Definity, lot #[id number], [facility]# [id number] was administered peripherally to enhance visualization of all left ventricular segments. . This study was interpreted by an [facility] accredited facility. ??Final ?? Procedure Note Travon Blood MD - 01/13/2024 ECHOCARDIOGRAM MIKAYLA KUHN : 1960 63 years Study Date: 01/13/2024 2:53:14 PM Gender: F BP: 114/44 mmHg Height: 152.00 cm BSA: 1.93 m? ? ? Weight: 98.00 kg Tech: PASQUALE Referring MD: BARBARA HOLCOMB Site: [facility] Reading Location: ANW IP Patient Location: Inpatient. [...] documentation: 2 ml diluted Definity, lot #[id number], [facility]#[id number] was administered peripherally to enhance visualization of allleft ventricular segments. . This study was interpreted by an [facility] accredited facility. Final Barbara Martinez Zhang FISH MACHINE FEEDER ECHO ORD * US ARTERIAL LOWER EXTREMITY [...] 125 mmHg Left Brachial: 111 mmHg Right GROOVER AND STRIPER OPERATOR: Noncompressible Right DPA: 115 mmHg (SAMUEL 0.92) Left GROOVER AND STRIPER OPERATOR: Noncompressible Left DPA: Noncompressible SAMUEL: 1.0-1.4 - normal 0.9-0.99 - borderline 0.80-0.89 - mild 0.50-0.79 - moderate 0.30-0.49 - severe < 0.30 - critical RIGHT: CASTING ROOM HELPER PROX: 204 cm/sec; triphasic waveforms CASTING ROOM HELPER DIST: 138 cm/sec; triphasic waveforms PFA: 97 cm/sec; triphasic waveforms SFA PROX: 140, 111 cm/sec; triphasic waveforms SFA MID: 113, 74 cm/sec; triphasic waveforms SFA DIST: 107, 113 cm/sec; triphasic waveforms POP PROX: 105 cm/sec; triphasic waveforms POP DIST: 89 cm/sec; triphasic waveforms GROOVER AND STRIPER OPERATOR: 32 cm/sec; triphasic waveforms KAITLYN: 58 cm/sec; triphasic waveforms DPA: 56 cm/sec; triphasic waveforms LEFT: CASTING ROOM HELPER PROX: 193 cm/sec; triphasic waveforms CASTING ROOM HELPER DIST: 152 cm/sec; triphasic waveforms PFA: 98 cm/sec; triphasic waveforms SFA PROX: 119, 109 cm/sec; triphasic waveforms SFA MID: 103, 102 cm/sec; triphasic waveforms SFA DIST: 103, 100 cm/sec; triphasic waveforms POP PROX: 124 cm/sec; triphasic waveforms POP DIST: 85 cm/sec; triphasic waveforms GROOVER AND STRIPER OPERATOR: 169 cm/sec; triphasic waveforms KAITLYN: 91 cm/sec; [...] 125 mmHg Left Brachial: 111 mmHg Right GROOVER AND STRIPER OPERATOR: Noncompressible Right DPA: 115 mmHg (SAMUEL 0.92) Left GROOVER AND STRIPER OPERATOR: Noncompressible Left DPA: Noncompressible SAMUEL: 1.0-1.4 - normal 0.9-0.99 - borderline 0.80-0.89 - mild 0.50-0.79 - moderate 0.30-0.49 - severe < 0.30 - critical RIGHT: CASTING ROOM HELPER PROX: 204 cm/sec; triphasic waveforms CASTING ROOM HELPER DIST: 138 cm/sec; triphasic waveforms PFA: 97 cm/sec; triphasic waveforms SFA PROX: 140, 111 cm/sec; triphasic waveforms SFA MID: 113, 74 cm/sec; triphasic waveforms SFA DIST: 107, 113 cm/sec; triphasic waveforms POP PROX: 105 cm/sec; triphasic waveforms POP DIST: 89 cm/sec; triphasic waveforms GROOVER AND STRIPER OPERATOR: 32 cm/sec; triphasic waveforms KAITLYN: 58 cm/sec; triphasic waveforms DPA: 56 cm/sec; triphasic waveforms LEFT: CASTING ROOM HELPER PROX: 193 cm/sec; triphasic waveforms CASTING ROOM HELPER DIST: 152 cm/sec; triphasic waveforms PFA: 98 cm/sec; triphasic waveforms SFA PROX: 119, 109 cm/sec; triphasic waveforms SFA MID: 103, 102 cm/sec; triphasic waveforms SFA DIST: 103, 100 cm/sec; triphasic waveforms POP PROX: 124 cm/sec; triphasic waveforms POP DIST: 85 cm/sec; triphasic waveforms GROOVER AND STRIPER OPERATOR: 169 cm/sec; triphasic waveforms KAITLYN: 91 cm/sec; [...] 01/14/2024 2:34:58 AM (Electronically Signed) Barbara Holcomb FISH MACHINE FEEDER US * XR FOOT 3 VIEWS LEFT [...] CDT) CULTURE RESULT(A) 01/16/2024 2:44 PM CDT [facility] CULTURE 3+ Corynebacterium striatum 01/16/2024 2:44 PM CDT [facility] CULTURE 2+ Mixed oni present 01/16/2024 2:44 PM CDT [facility] GRAM STAIN No PMNs 01/16/2024 2:44 PM CDT [facility] GRAM STAIN 2+ RBCs 01/16/2024 2:44 PM CDT [facility] GRAM STAIN No Epithelial cells 01/15 2:44 PM CDT [facility] GRAM STAIN 2+ Gram Positive Bacilli 01/16/2024 2:44 PM CDT [facility] Other (Other) Non-Blood / Unknown 01/13/2024 11:49 AM CDT 01/13/2024 12:00 PM CDT Narrative [facility] - 01/16/2024 2:44 PM CDT Mixed oni; No Staphylococcus aureus, beta-Streptococcus, Streptococcus pneumoniae, or Pseudomonas aeruginosa isolated. Freya Schafer NP MICROBIOLOGY Performing Organization Address [facility] Co de Phone Number [facility] [facility] [address] [place] [address], * (ABNORMAL) Electrolytes Panel - DKA (01/13/2024 10:53 AM CDT) Only the most recent of3 resultswithin the time period is included. SODIUM 140 136 - 145 mmol/L 01/13/2024 11:36 AM CDT [facility] POTASSIUM 5.2(H) 3.5 - 5.1 mmol/L 01/13/2024 11:36 AM CDT [facility] CHLORIDE 107 98 - 107 mmol/L 01/13/2024 11:36 AM CDT [facility] CO2,TOTAL 21(L) 22 - 29 mmol/L 01/13/2024 11:36 AM CDT [facility] ANION GAP 12 5 - 18 01/13/2024 11:36 AM CDT [facility] Blood BLOOD SPECIMEN / Unknown Non-Lab Venipuncture / Unknown 01/13/2024 10:53 AM CDT 01/13/2024 11:01 AM CDT Ifeanyi Hernández RN CHEMISTRY Performing Organization Address [facility] Co de Phone Number [facility] [address] [place] [address], * SCAN-CARDIAC STRIP (01/13/2024 8:00 AM CDT) Scanner OTHER * MAGNESIUM (01/13/2024 4:22 AM CDT) Only the most recent of2 resultswithin the time period is included. MAGNESIUM 1.9 1.6 - 2.4 mg/dL 01/13/2024 5:07 AM CDT [facility] Blood BLOOD SPECIMEN / Unknown Non-Lab Venipuncture / Unknown 01/13/2024 4:22 AM CDT 01/13/2024 4:41 AM CDT Ifeanyi Hernández RN CHEMISTRY Performing Organization Address [facility] Co de Phone Number [facility] [address] [place] [address], [place] * (ABNORMAL) Serum Glucose - DKA (01/13/2024 1:52 AM CDT) Only the most recent of2 resultswithin the time period is included. Pathologist [facility] GLUCOSE,RANDOM 459(H) 70 - 139 mg/dL 01/13/2024 2:46 AM CDT [facility] Blood BLOOD SPECIMEN / Unknown Non-Lab Venipuncture / Unknown 01/13/2024 1:52 AM CDT 01/13/2024 2:03 AM CDT Emily Guzman MD CHEMISTRY Performing Organization Address [facility] Co de Phone Number [facility] [employer] [facility] [address] [place] [address], [place] * (ABNORMAL) TROPONIN T (HS) ONE TIME (01/12/2024 11:39 PM CDT) [facility] TROPONIN T HS 45(H) 6-10 ng/L ng/L 01/13/2024 12:22 AM CDT [facility] Blood BLOOD SPECIMEN / Unknown Non-Lab Venipuncture / Unknown 01/12/2024 11:39 PM CDT 01/12/2024 11:45 PM CDT Emily Guzman MD CHEMISTRY Performing Organization Address City/[facility] Co de Phone Number [facility] [address] [place] [address], [place] * 12 Lead EKG (01/12/2024 10:16 PM CDT) [facility] [address] [facility] Interpretation Normal sinus rhythm Left axis deviation Abnormal ECG When compared with ECG of 02-Jan-2019 02:01, Nonspecific T wave abnormality now evident in Lateral leads BEYOND NOW Ventricular Rate 78 BPM BEYOND NOW Atrial Rate 78 BPM BEYOND NOW P-R Interval 160 ms BEYOND NOW QRS Duration 82 ms BEYOND NOW QT 400 ms BEYOND NOW QTc 456 ms BEYOND NOW P [place] 72 degrees BEYOND NOW R [place] -31 degrees BEYOND NOW T [place] 69 degrees BEYOND NOW 01/12/2024 10:1 6 PM CDT 01/13/2024 8:20 PM CDT Emily Guzman MD EKG ORD Performing Organization Address City/[facility]/ZIP Co de Phone Number [place] NOW [place], [place] * MRSA/SA PCR (01/12/2024 10:07 PM CDT) MRSA DNA PCR Negative Negative 01/12/2024 11:33 PM CDT [facility] STAPHYLOCOCCUS AUREUS PCR Negative Negative 01/12/2024 11:33 PM CDT [facility] Other SPECIMEN FROM INTERNAL NOSE / Unknown Non-Blood / Unknown 01/12/2024 10:07 PM CDT 01/12/2024 10:13 PM CDT Narrative [facility] - 01/12/2024 11:33 PM CDT Test result does not preclude MRSA or SA nasal colonization. Chaparro Sneed DO MICROBIOLOGY Performing Organization Address City/[facility]/ZIP Co de Phone Number [facility] [address] [place] [address], * (ABNORMAL) Urine Culture (01/12/2024 10:07 PM CDT) CULTURE RESULT(A) 01/16/2024 6:58 AM CDT [facility] CULTURE 10,000-50,000 CFU/mL Proteus mirabilis 01/16/2024 6:58 AM CDT [facility] CULTURE 50,000-100,000 CFU/mL Danita albicans 01/16/2024 6:58 AM CDT [facility] Urine URINE SPECIMEN / Unknown [...] 128: R Emily Guzman MD MICROBIOL OGY [facility] [address] [place] [address], * Blood Culture (01/12/2024 9:40 PM CDT) Only the most recent of2 resultswithin the time period is included. CULTURE No Growth. 01/16/2024 11:23 PM CDT [facility] Blood BLOOD SPECIMEN / Unknown Venipuncture / Unknown 01/12/2024 9:40 PM CDT 01/12/2024 9:52 PM CDT Narrative [facility] - 01/16/2024 11:23 PM CDT Low volume blood culture received; possible false negative culture. Emily Guzman MD MICROBIOL OGY [facility] [address] [place] [address], [place] * (ABNORMAL) TROPONIN T(HS) ACUTE W/2HR REFLEX (01/12/2024 9:37 PM CDT) [facility] [address] [facility] TROPONIN T HS 47(H) 6-10 ng/L ng/L 01/12/2024 10:16 PM CDT [facility] Blood BLOOD SPECIMEN / Unknown Non-Lab Venipuncture / Unknown 01/12/2024 9:37 PM CDT 01/12/2024 9:46 PM CDT Narrative [facility] - 01/12/2024 10:16 PM CDT [...] department patient population. Emily Guzman MD CHEMISTRY [facility] [address] [place] [address], * (ABNORMAL) CBC WITH AUTO DIFFERENTIAL (01/12/2024 9:37 PM CDT) WHITE BLOOD COUNT 14.9(H) 4.5 - 11.0 thou/cu mm 01/12/2024 9:54 PM CDT [facility] RED BLOOD COUNT 3.61(L) 4.00 - 5.20 mil/cu mm 01/12/2024 9:54 PM CDT [facility] HEMOGLOBIN 10.5(L) 12.0 - 16.0 g/dL 01/12/2024 9:54 PM CDT [facility] HEMATOCRIT 32.6(L) 33.0 - 51.0 % 01/12/2024 9:54 PM CDT [facility] MCV 90 80 - 100 fL 01/12/2024 9:54 PM CDT [facility] MCH 29.1 26.0 - 34.0 pg 01/12/2024 9:54 PM CDT [facility] MCHC 32.2 32.0 - 36.0 g/dL 01/12/2024 9:54 PM CDT [facility] RDW 13.2 11.5 - 15.5 % 01/12/2024 9:54 PM CDT [facility] PLATELET COUNT 273 140 - 440 thou/cu mm 01/12/2024 9:54 PM CDT [facility] MPV 11.0 6.5 - 11.0 fL 01/12/2024 9:54 PM CDT [facility] NRBC 0.0 % 01/12/2024 9:54 PM CDT [facility] ABS NRBC 0.0 thou /cu mm 01/12/2024 9:54 PM CDT [facility] % NEUT 80.3 % 01/12/2024 9:54 PM CDT [facility] % LYMPH 9.6 % 01/12/2024 9:54 PM CDT [facility] % MONO 9.2 % 01/12/2024 9:54 PM CDT [facility] % EOS 0.1 % 01/12/2024 9:54 PM CDT [facility] % BASO 0.1 % 01/12/2024 9:54 PM CDT [facility] % IMMATURE GRAN (METAS,MYELOS,DE OS) 0.7 % 01/12/2024 9:54 PM CDT [facility] ABSOLUTE NEUTROPHILS 12.0(H) 1.7 - 7.0 thou/cu mm 01/12/2024 9:54 PM CDT [facility] ABSOLUTE LYMPHOCYTES 1.4 0.9 - 2.9 thou/cu mm 01/12/2024 9:54 PM CDT [facility] ABSOLUTE MONOCYTES 1.4(H) <0.9 thou/cu mm 01/12/2024 9:54 PM CDT [facility] ABSOLUTE EOSINOPHILS 0.0 <0.5 thou/cu mm 01/12/2024 9:54 PM CDT [facility] ABSOLUTE BASOPHILS 0.0 <0.3 thou/cu mm 01/12/2024 9:54 PM CDT [facility] ABSOLUTE IMMATURE GRANULOCYTES(MET ,MYELOS,PROS) 0.1 <0.3 thou/cu mm 01/12/2024 9:54 PM CDT [facility] Blood BLOOD SPECIMEN / Unknown Non-Lab Venipuncture / Unknown 01/12/2024 9:37 PM CDT 01/12/2024 9:46 PM CDT Emily Guzman MD HEMATOLOG Y Performing Organization Address [facility]/State/ZIP Co de Phone Number [facility] [address] [place] [address], * (ABNORMAL) BLOOD GAS,VENOUS (01/12/2024 9:37 PM CDT) PH, VENOUS 7.25(L) 7.32 - 7.43 01/12/2024 9:52 PM CDT [facility] PCO2, VENOUS 44 41 - 51 mmHg 01/12/2024 9:52 PM CDT [facility] PO2, VENOUS 48(H) 35 - 40 mmHg 01/12/2024 9:52 PM CDT [facility] HCO3,VENOUS 19(L) 22 - 29 mmol/L 01/12/2024 9:52 PM CDT [facility] BASE EXCESS, VENOUS, POCT -7.7(L) -2.0 - 3.0 01/12/2024 9:52 PM CDT [facility] O2 SATURATION, VENOUS 85(H) 70 - 75 % 01/12/2024 9:52 PM CDT [facility] INSPIRED O2 21 01/12/2024 9:52 PM CDT [facility] Comment:Unit of Measure: Lit ers (L) if <=20; Percent (%) if >20 PATIENT TEMPERATURE 36.9 Degrees C 01/12/2024 9:52 PM CDT [facility] Blood VENOUS BLOOD SPECIMEN / Unknown Non-Lab Venipuncture / Unknown 01/12/2024 9:37 PM CDT 01/12/2024 9:46 PM CDT Emily Guzman MD CHEMISTRY Performing Organization Address City/[facility] Co de Phone Number [facility] [address] [place] [address], * Protime - INR (01/12/2024 9:37 PM CDT) INR 1.0 <1.3 01/12/2024 9:56 PM CDT [facility] PROTIME 11.5 10.3 - 12.3 sec 01/12/2024 9:56 PM CDT [facility] Blood BLOOD SPECIMEN / Unknown Non-Lab Venipuncture / Unknown 01/12/2024 9:37 PM CDT 01/12/2024 9:46 PM CDT Narrative [facility] - 01/12/2024 9:56 PM CDT ?Therapeutic [...] Guzman MD HEMATOLOG Y Performing Organization Address [facility] Co de Phone Number [facility] [address] [place] [address], * (ABNORMAL) HEMOGLOBIN A1C MONITORING (POCT) (01/12/2024 9:37 PM CDT) Only the most recent of2 resultswithin the time period is included. HEMOGLOBIN A1C MONITORING (POCT) 9.3(H) <=6.4 % 01/14/2024 10:29 AM CDT [facility] Blood BLOOD SPECIMEN / Unknown Non-Lab Venipuncture / Unknown 01/12/2024 9:37 PM CDT 01/12/2024 9:46 PM CDT Narrative [facility] - 01/14/2024 10:29 AM CDT ? [...] Anemias, Splenectomy ? Barbara Holcomb NP CHEMISTRY [facility] [address] [place] [address], * (ABNORMAL) Hepatic Function Panel (01/12/2024 9:37 PM CDT) ALBUMIN 3.2(L) 4.0 - 4.9 g/dL 01/12/2024 10:16 PM CDT [facility] PROTEIN,TOTAL 6.4 6.0 - 8.0 g/dL 01/12/2024 10:16 PM CDT [facility] BILIRUBIN,TOTAL 0.2 0.0 - 1.2 mg/dL 01/12/2024 10:16 PM CDT [facility] BILIRUBIN,DIRECT <0.2 0.0 - 0.3 mg/dL 01/12/2024 10:16 PM CDT [facility] BILIRUBIN,INDIRE CT 01/12/2024 10:16 PM CDT [facility] Comment:Unable to calculate, Direct Bili <0.2 ALK PHOSPHATASE 122(H) 35 - 104 IU/L 01/12/2024 10:16 PM CDT [facility] ALT (SGPT) 21 10 - 35 IU/L 01/12/2024 10:16 PM CDT [facility] AST (SGOT) 20 10 - 35 IU/L 01/12/2024 10:16 PM CDT [facility] Blood BLOOD SPECIMEN / Unknown Non-Lab Venipuncture / Unknown 01/12/2024 9:37 PM CDT 01/12/2024 9:46 PM CDT Emily Guzman MD CHEMISTRY [facility] [address] [place] [address], * SCAN-CARDIAC STRIP (01/12/2024 9:20 PM CDT) [...] health care provider. XR MAMMO BILAT SCREENING [[id number]] CLINICAL HISTORY: ??This is an asymptomatic 61 y.o. patient. INDICATION FOR EXAM: Mammogram Screening. TECHNIQUE: CC & MLO views were obtained. ??This study was evaluated with the assistance of Computer-Aided Detection. COMPARISON FILM: Yes 03/02/18 [employer] 07/26/13 [facility] FINDINGS: ??The breasts are extremely dense, which lowers the sensitivity of mammography. There are no dominant masses, suspicious micro calcifications or areas of architectural distortion. Shania Montiel MD MAMMO * LIPID PANEL W REFLEX MEASURED LDL (04/28/2022 1:44 PM CDT) CHOLESTEROL,TOTAL 139 100 - 199 mg/dL 04/30/2022 6:25 PM CDT [facility] TRIGLYCERIDES 141 <150 mg/dL 04/30/2022 6:25 PM CDT [facility] HDL CHOLESTEROL 42 >40 mg/dL 6:25 PM CDT [facility] NON-HDL CHOLESTEROL 97 <145 mg/dl 04/30/2022 6:25 PM CDT [facility] CHOL/HDL RATIO 3.31 <4.50 04/30/2022 6:25 PM CDT [facility] LDL CHOLESTEROL 69 <=130 mg/dL 04/30/2022 6:25 PM CDT [facility] VLDL CHOLESTEROL 28 <=30 mg/dL 04/30/2022 6:25 PM CDT [facility] PROVIDER ORDERED STATUS RANDOM 04/30/2022 6:25 PM CDT [facility] Blood BLOOD SPECIMEN / Unknown Venipuncture / Unknown 04/28/2022 1:44 PM CDT 04/28/2022 1:45 PM CDT Shania Montiel MD CHEMISTRY [facility] [address] [place] [address], * FECAL DNA (AKA COLOGUARD) (11/10/2021 1:00 PM CDT) Shania Montiel MD COMMUNICATION ORD * ANTI HCV [[id number]] (02/16/2018 4:20 PM CDT) HEPATITIS C ANTIBODY Non-React alex Non-React alex 02/17/2018 2:48 PM CDT [facility] Comment:Antibodies to HCV no t detected; does not exclude the possibility of exposure to HCV. Blood BLOOD SPECIMEN / Unknown Butterfly / Unknown 02/16/2018 4:20 PM CDT 02/16/2018 4:20 PM CDT Coleman Plata MD SEND OUTS [facility] [address] [place] [address], * HIV 1&2 TODAY (07/21/2015 9:40 AM SNOWBLOWER MECHANIC) Pathologist [facility] HIV-1/HIV-2 ANTIBODY Non-Reacti ve Non-Reacti ve 07/21/2015 10:31 AM SNOWBLOWER MECHANIC [facility] Blood specimen (specimen) BLOOD SPECIMEN / Unknown Venipuncture / Unknown 07/21/2015 9:40 AM SNOWBLOWER MECHANIC 07/21/2015 9:47 AM SNOWBLOWER MECHANIC Narrative [facility] - 07/21/2015 10:31 AM SNOWBLOWER MECHANIC HIV-1 p24 and HIV-1/HIV-2 Ab not detected Kait Morales DO [facility] [address] [place] [address], * SUPERVISOR HAND SILVERING THIN PREP PAP SCREEN IMAGED (08/17/2012 4:02 PM SNOWBLOWER MECHANIC) Pathologist [facility] CYTOLOGY CYTOPATHOLOGY REPORT [facility] [employer] Status: Final Status ?[id number] CLINICAL INFORMATION Last Date of LMP ? :07/03/2012 Last Pap Date ?:02/01/2011 Last Pap Result ?:NIL ABN Hernando/Bx Past 5 YRS :None Hormone Usage ?:BCP/OCP/Patch/R ing Menstrual Status ? :Regular Periods Hernando/Bx done today ? :No Additional Information :None [...] COLLECTED:08/17/12 ? ACCESSIONED: ??08/18/12 ?? SIGNED: ??08/21/12 [facility] [facility] [place] Tissue specimen (specimen) (Cervical/Vagina l) 08/17/2012 4:02 PM SNOWBLOWER MECHANIC 08/17/2012 4:00 PM SNOWBLOWER MECHANIC Coleman Plata MD PATHOLOGY/CYTOLOGY [facility] INTERNAL ZIP [address] [address] [place] [address] from Last 3 Months or Most Recently [...] Urine earlier this year (per report from [facility], not available in CareEverywhere), 04/19/18 L cheek abscess exclusions for contact precaution discontinuation (if > 12 months since positive culture): resides in acute/assisted care, receiving hemodialysis, has chronic open wounds/skin [...] 8:01 PM 07/15/2012 6:55 PM Care Teams Laundry Washer Relationship Specialty Start Date End Date Barbara Valentin DO [address] [place] [address] PCP - General Family Practice 11/15/22 Julio Ibrahim MD [address] [facility] [address] [place] [address] Surgery - Orthopedics 02/01/11 Chuy Doss MD [address] [facility] [address] [place] [address] Surgery - Vascular 02/01/11 Markel Strong MD [address] [place] [address] Provider Family Practice 08/08/20 Nikolai Ibarra MD [address] [facility] [address] [place] [address] Endocrinology 09/07/22 [facility] [address] [place] [address] 01/17/24 Suad Ng/ [employer] Insurance Counselor 07/14/17 [facility] Home Health Nurse 07/01/17 [facility] Services Home Health Aide 07/14/17 [facility] Waitstaff/ Ally Morillom [address] [place] [address] Insurance Counselor 07/07/17
== END 2024-01-12 20:11 | disposition home or self-care (01) ==
LOC: AMB 01-18 19:37
PROVIDERS: PCP Family Medicine; Visit Provider Internal Medicine
DX: A41.9 Sepsis, unspecified organism (principal); E11.10 Type 2 diabetes mellitus with ketoacidosis without coma
CPT/HCPCS: A0425; A0427; A0434

== ENCOUNTER 2024-01-19 15:07 | Outpatient (CLI) | payer OTHER, SELFPAY ==
--- OUTSIDE RECORDS SUMMARY | 2024-01-19 15:11 | XMS_ITS | Encounter Summary ---
Author Organization [facility] Address [address] [place] [address] Care Team Providers Care Snow Remover Name Role Phone Barbara Valentin DO Primary Care Provider Kevin zepeda Encounter Details Date Type Department Care Team (Late st Contact Info) Description 09/23/2023 Office Communication [facility] [address] [place] [address] Barbara Valentin DO [address] [place] [address] Social History Tobacco Use Types Packs/Day Years [...] EDT Office Visit [facility] [address] [place] [phone] Sandy Jimenez, GARMENT MANUFACTURER-NEUROPSYCHIATRIST [address] [place] [phone] documented as of this encounter Visit Diagnoses Not on filedocumented in this encounter Care Teams Snow Remover Relationship Specialty Start Date End Date Barbara Valent[place] [address] PCP - General Family Medicine 09/22/23 documented as of this encounter
--- OUTSIDE RECORDS SUMMARY | 2024-01-19 15:11 | XMS_ITS | Clinical Summary ---
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); Chronic diastolic congestive heart failure (HCC); Secondary hyperparathyroidism of renal origin (HCC); Anemia in chronic kidney disease 11/10/2023 Documentation Only [facility] [place] [address] Ericka Hurst from Last 3 Months Immunizations [...] AM EDT Office Visit [facility] [place] [address] [facility] [address] [place] [phone] Sandy Jimenez, AUTO FLEET MAINTENANCE MANAGER-BIOSTATISTICIAN [address] [facility] [address] [place] [phone] Health Maintenance Due Date Last Done Comments [...] age to complete this topic Care Teams Transit Mixer Driver Relationship Specialty Start Date End Date Barbara Valentin DO [address] [place] [address] PCP - General Family Medicine 09/22/23
--- OUTSIDE RECORDS SUMMARY | 2024-01-19 15:11 | XMS_ITS | Encounter Summary ---
Author Organization [facility] [place] Address [address] [place] [address] Care Team Providers Care Insert Cutter Name Role Phone Barbara Valentin Primary Care Provider Kevin zepeda Encounter Details Date Type Department Care Team (Late st Contact Info) Description 11/10/2023 Documentation Only [facility] [place] [facility] [place] [address] Dave Hurst [address] [facility] [address] [place] [address] Social History Tobacco Use Types [...] EDT Office Visit [facility] [address] [place] [address] Sandy Jimenez, INSURANCE CONSULTANT-JIG BORE TOOL MAKER [address] [place] [address] documented as of this encounter [...] LAB BLOOD ORDERAB LES Performing Organization Address City/State/[facility] Co de Phone Number [facility] * (ABNORMAL) [...] * (ABNORMAL) Albumin/Creatinine in Urine (05/19/2023) Pathologist [facility] Albumin, Urine 55.6 mg/L [facility] Creatinine, Urine Random 0.53 g/L [facility] Alb/Creat Ratio, Ur 104.9(H) mg/g Creat [facility] Urine (Urine) 05/19/2023 Historical Provider LAB URINE ORDERAB LES BESSY * (ABNORMAL) CBC (02/28/2023) Pathologist [facility] WBC 4.6 K/uL [facility] Red Blood Cell [...] on filedocumented in this encounter Care Teams Insert Cutter Relationship Specialty Start Date End Date Barbara Valentin DO [address] [place] [address] PCP - General Family Medicine 09/22/23 documented as of this encounter
--- OUTSIDE RECORDS SUMMARY | 2024-01-19 15:11 | XMS_ITS | Encounter Summary ---
Author Organization [facility] Address [address] [place] [address] Care Team Providers Care Perforating Machine Operator Name Role Phone Barbara Valentin DO Primary Care Provider Kevin zepeda Reason for Visit * Reason Comments CKD New Patient * Nephrology Services (Urgent) - Closed Specialty Diagnoses / Procedures Referred By Contac t Referred To Contact Nephrology Diagnoses Chronic kidney disease stage 4 (HCC) Barbara Valentin DO [address] [place] [address] Elian Humphrey MD [address] [place] [address] Referral ID Status Reason Start Date Expiration Date Visits Re quested Visits Authorized [id number] Closed 09/22/2023 09/21/2024 1 1 Encounter Details Date Type Department Care Team (Latest Contact Info) Description 11/10/2023 3:30 PM EDT Office Visit [facility] [address] [place] [address] Gabriel Hicks MD [address] [place] [address] Chronic kidney disease, stage 4 [...] Hicks/RAFAEL Acosta Welcome to [facility] Although we are experts in the [...] in caring for renal patients. If your Mental Health Counselor deems it appropriate, you will be scheduled [...] healthy, so we do have a Renal Scalp Treatment Specialist to help you with this. We encourage [...] let them know that you see a licsw for your kidney disease. Ask that they contact your licsw before this type of test is scheduled. [...] Doctors, Advanced Practice Providers, nurses, and Renal Scalp Treatment Specialist are here to provide you with the best renal care. We want you to feel free to call us when you have questions or concerns. To call the nurse at your licsw's office, please see the address and telephone number listed on your After Visit Summary. Thank you, The Physicians and staff at [facility] UNDERSTANDING YOUR BLOOD PRESSURE & LAB [...] Mikayla Kuhn Date of : 1960 Chart: [id number] PCP: Barbara Valentin DO Referring Provider: Barbara [...] her close friend who also is her GENERAL TELLER. No recent illnesses or hospitalizations. Tolerating her [...] 05/12/2024). Gabriel Hicks MD [facility] The following portions of the patient's chart [...] MG/DOSE powder Yuni Olea MD Inhale 1 [place] into affected nostril(s) each time if needed [...] [place] [address] [place] [phone] Sandy Jimenez, TRACTOR CRANE OPERATOR-IT SYSTEMS ADMINISTRATOR [address] [place] [phone] Scheduled Orders Name Type Priority Associated Diagnoses [...] disease documented in this encounter Care Teams Perforating Machine Operator Relationship Specialty Start Date End Date Barbara Valentin [place] [address] PCP - General Family Medicine 09/22/23 documented as of this encounter
--- OUTSIDE RECORDS SUMMARY | 2024-01-19 15:11 | XMS_ITS | Encounter Summary ---
Author Organization [facility] Address [address] [place] [address] Care Team Providers Care Case Management Associate Name Role Phone Barbara Valentin DO Primary Care Provider Kevin zepeda Encounter Details Date Type Department Care Team (Late st Contact Info) Description 09/22/2023 Documentation Only [facility] [address] [facility] [address] [place] [phone] No, Pcp Social History Tobacco Use Types [...] AM EDT Office Visit [facility] [address] [place] [phone] Sandy Jimenez, GATE TENDER-HEADSTART TEACHER [address] [place] [phone] documented as of this encounter Visit Diagnoses Not on filedocumented in this encounter Care Teams Case Management Associate Relationship Specialty Start Date End Date Barbara Valentin DO [address] [place] [address] PCP - General Family Medicine 09/22/23 documented as of this encounter
--- OUTSIDE RECORDS SUMMARY | 2024-01-19 15:12 | XMS_ITS | Clinical Summary ---
Author Organization [employer] Formerly [facility] Address [place], [place] [address] Care Team Providers Care Physical Therapy Nurse Name Role Phone Julio Ibrahim MD Unavailable Chuy Doss MD Unavailable Markel Strogn MD Unavailable Nikolai Ibarra MD Unavailable [phone] Barbara Valentin DO Primary Care Provider [facility] [place] Unavailable [phone] Allergies Active Allergy Reactions Criticality Noted Date [...] mellitus at risk of hypoglycemia Inhale 1 [place] into affected nostril(s) each time if needed for Severe Hypoglycemia. Roll on side and call 911 after administration. 2 Each 12/25/19 22 Active fluticasone (50 mcg per actuation) nasal solution (FLONASE)Indicatio ns:Nasal congestion Inhale 1 [place] into affected nostril(s) once daily. Inhale 1 [place] in the nostril(s) once daily. 16 g [...] 04/20/20 23 Active continuous glucose monitor READER (WILEX Elli 2 [place])Indications :Type 1 diabetes mellitus with other specified complication (HC) To be used to read blood sugars per rehab rn's directions. 1 Each 05/19/20 23 Active blood-glucose [...] be used to read blood sugars per rehab rn's directions. 6 Each 3 09/06/19 24 Active [...] history (E-cancel not sent)) blood sugar diagnostic (Gunner'S Mate M Express Test Strip) stripIndications:U ncontrolled type 1 [...] substance agreement signed - 10/07/23 10/07/2023 Overview: [facility] Noemí Dennis .................... 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 07/2015- 05/2017 Hospitalized with ketoacidosis 06/2017 [...] post total right knee replacement 01/02/2015 06/10/2017 correction (current) use of anticoagulants 11/27/2013 12/28/2013 Anticoagulation [...] Date Type Department Care Team Description 01/18/2024 1:45 PM CDT Home Care Visit [facility] [address] [place] [address] Kendal Serna, PT PT - OASIS START OF CARE 01/18/2024 10:30 AM CDT Phone Office Visit [facility] [address] [place] [address] Nikolai Ibarra MD Arrived 01/18/2024 Plan of Care Documentation [facility] [address] [place] [address] 01/18/2024 Patient Outreach [facility] [address] [place] [address] Maria R Ho, RN Primary RN Care Management; Hospital F/U (Lace 44) 01/18/2024 Travel 01/12/2024 9:13 PM CDT - 01/17/2024 5:23 PM CDT Hospital Encounter [facility] [address] [place] [address] Emily Guzman MD Litell, John Martin, DO Kirkland, MD Dusty Manjarrez, MD Ricky Alston, Helder Hoover MD 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, macular edema presence unspecified, unspecified laterality, unspecified proliferative retinopathy type (HC); Heel ulcer, right, with unspecified severity (HC) Discharge Disposition: Home Health 01/09/2024 Refill [facility] [address] [place] [address] Barbara Valentin DO Refill Request (Fluoxetine) 01/09/2024 Refill [facility] [address] [place] [address] Elian Humphrey MD Refill Request (Torsemide) 01/06/2024 4:00 PM CDT Office Visit [facility] [address] [place] [address] Toshia Hooks NP Follow Up; Pain (Multi source; was told by her Geoscience Technician she can ot use OTC Voltaren gel., which had been helping her O.A. pain (hands; wrists; shoulders; ) ) 01/06/2024 Travel 01/02/2024 Telephone [facility] [address] [place] [address] Barbara Valentin Patricia, DO Follow Up 12/27/2023 Refill [facility] [address] [place] [address] Barbara Valentin Patricia, DO Refill Request (Pregabalin, Cetirizine) 12/23/2023 2:35 PM CDT Office Visit [facility] [address] [place] [address] Barbara Valentin Patricia, DO Diabetes (3 month check, labs); Rash (Rash under breasts? ) 12/23/2023 Travel 12/20/2023 Refill [facility] [address] [place] [address] Sir Valentini Patricia, DO Refill Request (Humalog Kwikpen Insulin) 12/16/2023 Refill [facility] [address] [place] [address] Toshia Hooks NP Refill Request (Patient son called requesting oxycodone 5 mg at [facility].////) 12/15/2023 Telephone [facility] [address] [place] [address] Barbara Valentin Patricia, DO Lab 12/08/2023 Refill [facility] [address] [place] [address] Barbara Valentin Patricia, DO Refill Request (Ulticare Pen Needle, Per-fit Underwear) 12/07/2023 Refill [facility] [address] [place] [address] Sir Valentini Patricia, DO Refill Request (Ulticare Pen Needle) 11/29/2023 Telephone [facility] [address] [place] [address] Barbara Valentin Patricia, DO Referral 11/29/2023 Refill [facility] [address] [place] [address] Sir Valentini Patricia, DO Refill Request (Cholecalciferol) 11/18/2023 Refill [facility] [address] [place] [address] Toshia Hooks NP Refill Request (oxycodone 5 mg at [facility]) 11/17/2023 Telephone [facility] [address] [place] [address] Barbara Valentin Patricia, DO Questions (Vish rod R.N. shelter case manager with [facility] has some questions for pcp) 11/15/2023 Refill [facility] [address] [place] [address] Barbara Valentin Patricia, DO Refill Request (Levothyroxine, Fluoxetine) 11/11/2023 Telephone [facility] [address] [place] [address] Barbara Valentin Patricia, DO questions and concerns (vish jennings R.N. called in with questions and concerns for PCP) 10/26/2023 Telephone [facility] [address] [place] [address] Barbara Valentin Patricia, DO Medication Management from Last 3 Months Immunizations Name Administration Dates Next Due AMB Influenza, IIV3 (Age >=3 years)(Flu Clinic Only) 05/17/2013,05/06/2010 COVID-19 vaccine ([employer] NTech 30mcg/0.3mL) 12YO+ BIVALENT PF, MDV 04/28/2022 COVID-19 vaccine ([employer] NTech 30mcg/0.3mL) PF, MDV 06/23/2021 Hepatitis B [...] Sign Reading Time Taken Comments Blood Pressure 90/60 01/18/2024 2:36 PM CDT Pulse 64 01/18/2024 2:33 PM CDT Temperature 36.7 ??C (98.1 ??F) 01/18/2024 2:33 PM CD T Respiratory Rate 18 01/18/2024 2:36 PM CDT Oxygen Saturation 97% 01/17/2024 4:12 PM CDT Inhaled Oxygen Concentration - - Weight 102.3 kg (225 lb 9.6 oz) 01/16/2024 6:48 AM CDT Height 152.4 cm (5') 01/12/2024 9:27 PM CDT Body Mass Index 44.06 01/12/2024 9:27 PM CDT Plan of Treatment Upcoming Encounters Date Type Department Care Team (Late st Contact Info) Description 01/20/2024 11:25 AM CDT Office Visit [facility] [address] [place] [address] Barbara Valentin, DO [address] [place] [address] 01/23/2024 6:30 AM CDT Home Care Visit [facility] [address] [place] [id number] Dar Phillips, OT [address] [place] [address] 03/26/2024 3:25 PM CDT Office Visit [facility] [address] [place] [address] Barbara Valentin, DO [address] [place] [address] 05/04/2024 3:30 PM CDT Phone Office Visit [facility] [address] [place] [address] Nikolai Ibarra MD [address] [place] [address] Health Maintenance Due Date Last Done Comments [...] 03/18/2020, Additional history exists Fecal testing sDNA-FIT ([place] guard) for age 45-75 11/10/2024 11/10/2021 Pneumococcal series for age 6-64 (3 of 3 - PPSV23 or PCV20) 2026 08/17/2016, 08/14/2014, 07/04/2005, Additional history exists Lipids for age 45-75 04/28/2027 04/28/2022, 08/17/2019, 08/31/2018, Additional history exists Tdap Completed 08/25/2010 HIV for age 15-65 Completed 07/21/2015 Hepatitis C screening for ag e 18-79 Completed 02/16/2018 Medical Devices Implanted Type Area Embedded Software Test Engineer Device Identifier Shelf Expiration Date Model / Serial / Lot [id number] loderm 2x12mm [[id number]] Implanted:Qty: 1 on 08/08/2008 at [facility] Explanted:at [facility] (Quantity not on file) [facility] Booker [id number]# / [id number] / Stem Compnt Primary 8mm Mini - [id number] Implanted:Qty: 1 on 03/17/2011 at [facility] Right: Shoulder BIOMET [id number]# / / [id number] Head Hum Bio-Mod [id number] - [id number] Implanted:Qty: 1 on 03/17/2011 at [facility] Right: Shoulder BIOMET [id number]# / / [id number] Base Glenoid Hybrid 4mm Sm - [id number] Implanted:Qty: 1 on 03/17/2011 at [facility] Right: Shoulder BIOMET [id number]# / / [id number] Cmnt 1/2 [employer]ica - [id number] Implanted:Qty: 1 on 03/17/2011 at [facility] Right: Shoulder [employer] 6188-- 0# / / [id number] Post Glenoid Hybrid Regenerex - [id number] Implanted:Qty: 1 on 03/17/2011 at [facility] Right: Shoulder BIOMET [id number] # / / [id number] Head Humeral 44x15 Co Cr Biomodular - [id number] Implanted:Qty: 1 on 07/12/2012 at [facility] Left: Shoulder BIOMET [id number]# / / [id number] Shoulder Stem Implanted:Qty: 1 on 07/12/2012 at [facility] Left: Shoulder [id number] / / [id number] Description:SHOULDER STEM Cmnt Bone 1/2 [employer]ose[employer]ica - [id number] Implanted:Qty: 1 on 07/12/2012 at [facility] Left: Shoulder [employer] 6188-- 0# / / [id number] Post Glenoid Hybrid Regenerex - [id number] Implanted:Qty: 1 on 07/12/2012 at [facility] Left: Shoulder BIOMET [id number] # / / [id number] Base Glenoid Hybrid 4mm Sm - [id number] Implanted:Qty: 1 on 07/12/2012 at [facility] Left: Shoulder BIOMET [id number]# / / [id number] Procedures Procedure Name Priority Date/Time Associated Diagnosis [...] LEFT PORTABLE Routine 01/13/2024 12:06 PM CDT ANAEROBIC CULTURE Today 01/13/2024 11: 49 AM CDT AEROBIC BACTERIAL CULTURE, STAIN Today 01/13/2024 [...] HIV 1/2 Add On 07/21/2015 9:40 AM EXTERNAL GRINDER ANALYST COMPETITIVE INTELLIGENCE THIN PREP PAP SCREEN IMAGED Routine 08/17/2012 4:02 PM EXTERNAL GRINDER Screening for malignant neoplasm of the cervix [...] of36 resultswithin the time period is included. Pathologist [facility] [place] GLUCOSE METER 156(H) 65 - 100 mg/dL 01/17/2024 11:35 AM CDT [facility] Blood BLOOD SPECIMEN / Unknown 01/17/2024 11:27 AM CDT 01/17/2024 11:35 AM CDT Helder García MD CHEMISTRY [facility] [address] [place] [address], * (ABNORMAL) CREATININE (01/17/2024 8:20 AM CDT) Only the most recent of3 resultswithin the time period is included. eGFR 47(L) >90 mL/min/1.7 3m2 01/17/2024 9:06 AM CDT [facility] Comment:As of 2021, eG FR is calculated by the CKD-EPI creatinine equation without race adjustment. ??eGFR can be influenced by muscle mass, exercise, and diet. ??The reported eGFR is an estimation only and is only applicable if the renal function is stable. CREATININE 1.28(H) 0.50 - 0.90 mg/dL 01/17/2024 9:06 AM CDT [facility] Blood BLOOD SPECIMEN / Unknown Non-Lab Venipuncture / Unknown 01/17/2024 8:20 AM CDT 01/17/2024 8:26 AM CDT Helder García MD CHEMISTRY Performing Organization Address City/[facility]/ZIP Co de Phone Number [facility] [address] [place] [address], * PHOSPHORUS (01/17/2024 8:20 AM CDT) Only the most recent of5 resultswithin the time period is included. PHOSPHORUS 2.6 2.5 - 4.5 mg/dL 01/17/2024 9:06 AM CDT [facility] Blood BLOOD SPECIMEN / Unknown Non-Lab Venipuncture / Unknown 01/17/2024 8:20 AM CDT 01/17/2024 8:26 AM CDT Sarah Betancourt RN CHEMISTRY Performing Organization Address [facility] Co de Phone Number [facility] [address] [place] [address], [place] * (ABNORMAL) BASIC METABOLIC PANEL (01/17/2024 8:20 AM CDT) Only the most recent of5 resultswithin the time period is included. SODIUM 139 136 - 145 mmol/L 01/17/2024 12:35 PM CDT [facility] POTASSIUM 3.9 3.5 - 5.1 mmol/L 01/17/2024 12:35 PM CDT [facility] CHLORIDE 103 98 - 107 mmol/L 01/17/2024 12:35 PM CDT [facility] CO2,TOTAL 24 22 - 29 mmol/L 01/17/2024 12:35 PM CDT [facility] ANION GAP 12 5 - 18 01/17/2024 12:35 PM CDT [facility] GLUCOSE 162(H) 70 - 99 mg/dL 01/17/2024 12:35 PM CDT [facility] CALCIUM 8.7(L) 8.8 - 10.2 mg/dL 01/17/2024 12:35 PM CDT [facility] BUN 17 8 - 23 mg/dL 01/17/2024 12:35 PM CDT [facility] CREATININE 1.31(H) 0.50 - 0.90 mg/dL 01/17/2024 12:35 PM CDT [facility] BUN/CREAT RATIO 13 10 - 20 12:35 PM CDT [facility] eGFR 46(L) >90 mL/min/1.7 3m2 01/17/2024 12:35 PM CDT [facility] Comment: As of [...] 8:26 AM CDT Helder García MD CHEMISTRY [facility] [address] [place] [address], * CLOSTRIDIOIDES DIFFICILE TOXIN PCR (01/16/2024 12:27 PM CDT) CLOSTRIDIUM DIFFICILE PCR Negative 01/16/2024 2:18 PM CDT [facility] PRESUMPTIVE NAP1 STRAIN Negative 01/16/2024 2:18 PM CDT [facility] Stool STOOL SPECIMEN / Unknown Non-Blood / Unknown 01/16/2024 12:27 PM CDT 01/16/2024 12:51 PM CDT Narrative [facility] - 01/16/2024 2:18 PM CDT The NAP1 (027 or BI) strain is a hypervirulent strain. Detection may be useful for epidemiological purposes. Helder García MD MICROBIOLOGY Performing Organization Address [facility] Co de Phone Number [facility] [address] [place] [address], * SCAN CORRESP-EKG RESULTS (01/16/2024 9:07 AM CDT) Narrative 01/16/2024 9:07 AM CDT Ordered by an unspecified provider. Other Clinical Staff OTHER * (ABNORMAL) HEMOGLOBIN (01/16/2024 6:30 AM CDT) Only the most recent of2 resultswithin the time period is included. HEMOGLOBIN 8.9(L) 12.0 - 16.0 g/dL 01/16/2024 7:13 AM CDT [facility] MCV 91 80 - 100 fL 01/16/2024 7:13 AM CDT [facility] Blood BLOOD SPECIMEN / Unknown Venipuncture / Unknown 01/16/2024 6:30 AM CDT 01/16/2024 6:58 AM CDT Fabrizio Montano MD HEMATOLOGY Performing Organization Address [facility] Co de Phone Number [facility] [address] [place] [address], * VANCOMYCIN (01/16/2024 6:30 AM CDT) Only the most recent of3 resultswithin the time period is included. VANCOMYCIN 13.0 ug/mL 01/16/2024 7:42 AM CDT [facility] Comment:No Reference Range D efined. DATE OF LAST DOSE,RANDOM Not Given 01/16/2024 7:42 AM CDT [facility] TIME OF LAST DOSE,RANDOM Not Given 01/16/2024 7:42 AM CDT [facility] Blood BLOOD SPECIMEN / Unknown Venipuncture / Unknown 01/16/2024 6:30 AM CDT 01/16/2024 6:58 AM CDT Barbara Holcomb NP CHEMISTRY Performing Organization Address [facility]/ZIP Co de Phone Number [facility] [address] [place] [address], * (ABNORMAL) PLATELET COUNT (01/15/2024 6:02 AM CDT) PLATELET COUNT 166 140 - 440 thou/cu mm 01/15/2024 6:44 AM CDT [facility] MPV 11.2(H) 6.5 - 11.0 fL 01/15/2024 6:44 AM CDT [facility] Blood BLOOD SPECIMEN / Unknown Venipuncture / Unknown 01/15/2024 6:02 AM CDT 01/15/2024 6:26 AM CDT Fabrizio Montano MD HEMATOLOGY Performing Organization Address [facility] Co de Phone Number [facility] [address] [place] [address], * WHITE BLOOD COUNT (01/15/2024 6:02 AM CDT) WHITE BLOOD COUNT 4.9 4.5 - 11.0 thou/cu mm 01/15/2024 6:44 AM CDT [facility] NRBC 0.0 % 01/15/2024 6:44 AM CDT [facility] ABS NRBC 0.0 thou /cu mm 01/15/2024 6:44 AM CDT [facility] Blood BLOOD SPECIMEN / Unknown Venipuncture / Unknown 01/15/2024 6:02 AM CDT 01/15/2024 6:26 AM CDT Fabrizio Montano MD HEMATOLOGY Performing Organization Address City/State/[facility] Co de Phone Number [facility] [address] [address], [place] * Sodium AM (01/15/2024 6:02 AM CDT) SODIUM 142 136 - 145 mmol/L 01/15/2024 7:13 AM CDT [facility] Blood BLOOD SPECIMEN / Unknown Venipuncture / Unknown 01/15/2024 6:02 AM CDT 01/15/2024 6:27 AM CDT Fabrizio Montano MD CHEMISTRY Performing Organization Address [facility] Co de Phone Number [facility] [address] [place] [address], [place] * Potassium AM (01/15/2024 6:02 AM CDT) Only the most recent of3 resultswithin the time period is included. POTASSIUM 4.4 3.5 - 5.1 mmol/L 01/15/2024 7:13 AM CDT [facility] Blood BLOOD SPECIMEN / Unknown Venipuncture / Unknown 01/15/2024 6:02 AM CDT 01/15/2024 6:27 AM CDT Fabrizio Montano MD CHEMISTRY Performing Organization Address [facility] Co de Phone Number [facility] [address] [place] [address], [place] * SCAN-CARDIAC STRIP (01/14/2024 7:07 AM CDT) Scanner OTHER * (ABNORMAL) CBC W PLT NO DIFF (01/14/2024 5:28 AM CDT) WHITE BLOOD COUNT 8.5 4.5 - 11.0 thou/cu mm 01/14/2024 6:33 AM CDT [facility] RED BLOOD COUNT 3.04(L) 4.00 - 5.20 mil/cu mm 01/14/2024 6:33 AM CDT [facility] HEMOGLOBIN 8.9(L) 12.0 - 16.0 g/dL 01/14/2024 6:33 AM CDT [facility] HEMATOCRIT 27.5(L) 33.0 - 51.0 % 01/14/2024 6:33 AM CDT [facility] MCV 91 80 - 100 fL 01/14/2024 6:33 AM CDT [facility] MCH 29.3 26.0 - 34.0 pg 01/14/2024 6:33 AM CDT [facility] MCHC 32.4 32.0 - 36.0 g/dL 01/14/2024 6:33 AM CDT [facility] RDW 14.4 11.5 - 15.5 % 01/14/2024 6:33 AM CDT [facility] PLATELET COUNT 198 140 - 440 thou/cu mm 01/14/2024 6:33 AM CDT [facility] MPV 11.4(H) 6.5 - 11.0 fL 01/14/2024 6:33 AM CDT [facility] NRBC 0.0 % 01/14/2024 6:33 AM CDT [facility] ABS NRBC 0.0 thou /cu mm 01/14/2024 6:33 AM CDT [facility] Blood BLOOD SPECIMEN / Unknown Non-Lab Venipuncture / Unknown 01/14/2024 5:28 AM CDT 01/14/2024 6:31 AM CDT Barbara Holcomb NP HEMATOLOGY [facility] [address] [place] [address], * (ABNORMAL) CALCIUM IONIZED HOSPITAL DRAW ONLY (01/14/2024 5:28 AM CDT) Only the most recent of3 resultswithin the time period is included. CALCIUM,IONIZE D 1.30(H) 1.15 - 1.27 mmol/L 01/14/2024 6:03 AM CDT [facility] Blood BLOOD SPECIMEN / Unknown Non-Lab Venipuncture / Unknown 01/14/2024 5:28 AM CDT 01/14/2024 5:49 AM CDT Grace Eldridge MD CHEMISTRY [facility] [address] [place] [address], * ECHO TTE COMPLETE W CONTRAST (01/13/2024 3:56 PM CDT) AORTIC VALVE MEAN PG 7 mmHg EJECTION FRACTION 64 % LVEDD 4.1 cm EJECTION FRACTION 60 - 65% Anatomical Region Laterality Modality Ultrasound 01/13/2024 2:53 PM CDT Narrative 01/13/2024 4:39 PM CDT ECHOCARDIOGRAM MIKAYLA KUHN ? Accession#: ?? [id number] : ?1960 63 years Study Date: ?? 01/13/2024 2:53:14 PM Gender: F ?BP: ? 114/44 mmHg Height: 152.00 cm ?BSA: ?1.93 m? ? ? Weight: 98.00 kg ? Tech: ? KBA ? Referring MD: BARBARA HOLCOMB Site: ? [facility] Patient Location: Inpatient. Procedure: 2D w/ Contrast, [...] documentation: 2 ml diluted Definity, lot #[id number], [facility]# [id number] was administered peripherally to enhance visualization of all left ventricular segments. . This study was interpreted by an [facility] accredited facility. ??Final ?? Procedure Note Travon Blood MD - 01/13/2024 ECHOCARDIOGRAM MIKAYLA KUHN : 1960 63 years Study Date: 01/13/2024 2:53:14 PM Gender: F BP: 114/44 mmHg Height: 152.00 cm BSA: 1.93 m? ? ? Weight: 98.00 kg Tech: PASQUALE Referring MD: BARBARA HOLCOMB Site: [facility] Reading Location: W Patient Location: Inpatient. Procedure: 2D w/ Contrast, [...] documentation: 2 ml diluted Definity, lot #[id number], [facility]#[id number] was administered peripherally to enhance visualization of allleft ventricular segments. . This study was interpreted by an [facility] accredited facility. Final Barbara Holcomb LAUNDRY OPERATOR WASH ROOM ECHO ORD * US ARTERIAL LOWER EXTREMITY [...] 125 mmHg Left Brachial: 111 mmHg Right CHEMICAL INSTRUMENTATION OFFICER: Noncompressible Right DPA: 115 mmHg (SAMUEL 0.92) Left CHEMICAL INSTRUMENTATION OFFICER: Noncompressible Left DPA: Noncompressible SAMUEL: 1.0-1.4 - normal 0.9-0.99 - borderline 0.80-0.89 - mild 0.50-0.79 - moderate 0.30-0.49 - severe < 0.30 - critical RIGHT: BRAZER PRODUCTION LINE PROX: 204 cm/sec; triphasic waveforms BRAZER PRODUCTION LINE DIST: 138 cm/sec; triphasic waveforms PFA: 97 cm/sec; triphasic waveforms SFA PROX: 140, 111 cm/sec; triphasic waveforms SFA MID: 113, 74 cm/sec; triphasic waveforms SFA DIST: 107, 113 cm/sec; triphasic waveforms POP PROX: 105 cm/sec; triphasic waveforms POP DIST: 89 cm/sec; triphasic waveforms CHEMICAL INSTRUMENTATION OFFICER: 32 cm/sec; triphasic waveforms KAITLYN: 58 cm/sec; triphasic waveforms DPA: 56 cm/sec; triphasic waveforms LEFT: BRAZER PRODUCTION LINE PROX: 193 cm/sec; triphasic waveforms BRAZER PRODUCTION LINE DIST: 152 cm/sec; triphasic waveforms PFA: 98 cm/sec; triphasic waveforms SFA PROX: 119, 109 cm/sec; triphasic waveforms SFA MID: 103, 102 cm/sec; triphasic waveforms SFA DIST: 103, 100 cm/sec; triphasic waveforms POP PROX: 124 cm/sec; triphasic waveforms POP DIST: 85 cm/sec; triphasic waveforms CHEMICAL INSTRUMENTATION OFFICER: 169 cm/sec; triphasic waveforms KAITLYN: 91 cm/sec; triphasic waveforms DPA: 96 cm/sec; triphasic waveforms Procedure Note Peterson Ruvalcaba MD - 01/14/2024 For Patients: As a result of the 21st Century Cures Act, medical imagingexams and procedure [...] 125 mmHg Left Brachial: 111 mmHg Right CHEMICAL INSTRUMENTATION OFFICER: Noncompressible Right DPA: 115 mmHg (SAMUEL 0.92) Left CHEMICAL INSTRUMENTATION OFFICER: Noncompressible Left DPA: Noncompressible SAMUEL: 1.0-1.4 - normal 0.9-0.99 - borderline 0.80-0.89 - mild 0.50-0.79 - moderate 0.30-0.49 - severe < 0.30 - critical RIGHT: BRAZER PRODUCTION LINE PROX: 204 cm/sec; triphasic waveforms BRAZER PRODUCTION LINE DIST: 138 cm/sec; triphasic waveforms PFA: 97 cm/sec; triphasic waveforms SFA PROX: 140, 111 cm/sec; triphasic waveforms SFA MID: 113, 74 cm/sec; triphasic waveforms SFA DIST: 107, 113 cm/sec; triphasic waveforms POP PROX: 105 cm/sec; triphasic waveforms POP DIST: 89 cm/sec; triphasic waveforms CHEMICAL INSTRUMENTATION OFFICER: 32 cm/sec; triphasic waveforms KAITLYN: 58 cm/sec; triphasic waveforms DPA: 56 cm/sec; triphasic waveforms LEFT: BRAZER PRODUCTION LINE PROX: 193 cm/sec; triphasic waveforms BRAZER PRODUCTION LINE DIST: 152 cm/sec; triphasic waveforms PFA: 98 cm/sec; triphasic waveforms SFA PROX: 119, 109 cm/sec; triphasic waveforms SFA MID: 103, 102 cm/sec; triphasic waveforms SFA DIST: 103, 100 cm/sec; triphasic waveforms POP PROX: 124 cm/sec; triphasic waveforms POP DIST: 85 cm/sec; triphasic waveforms CHEMICAL INSTRUMENTATION OFFICER: 169 cm/sec; triphasic waveforms KAITLYN: 91 cm/sec; [...] 01/14/2024 4:57:16 PM (Electronically Signed) Freya Schafer LAUNDRY OPERATOR WASH ROOM US * US RENAL AND BLADDER COMPLETE [...] 01/14/2024 2:34:58 AM (Electronically Signed) Barbara Holcomb LAUNDRY OPERATOR WASH ROOM US * XR FOOT 3 VIEWS LEFT [...] CDT) CULTURE RESULT(A) 01/16/2024 2:44 PM CDT [facility] CULTURE 3+ Corynebacterium striatum 01/16/2024 2:44 PM CDT [facility] CULTURE 2+ Mixed oni present 01/16/2024 2:44 PM CDT [facility] GRAM STAIN No PMNs 01/16/2024 2:44 PM CDT [facility] GRAM STAIN 2+ RBCs 01/16/2024 2:44 PM CDT [facility] GRAM STAIN No Epithelial cells 01/15 2:44 PM CDT [facility] GRAM STAIN 2+ Gram Positive Bacilli 01/16/2024 2:44 PM CDT [facility] Other (Other) Non-Blood / Unknown 01/13/2024 11:49 AM CDT 01/13/2024 12:00 PM CDT Narrative [facility] - 01/16/2024 2:44 PM CDT Mixed oni; No Staphylococcus aureus, beta-Streptococcus, Streptococcus pneumoniae, or Pseudomonas aeruginosa isolated. Freya Schafer NP MICROBIOLOGY Performing Organization Address City/[facility]/ZIP Co de Phone Number [facility] [address] [place] [address], * ANAEROBIC CULTURE (01/13/2024 11:49 AM CDT) CULTURE No anaerobes isolated 01/19/2024 10:01 AM CDT [facility] Other (Other) Non-Blood / Unknown 01/13/2024 11:49 AM CDT 01/13/2024 12:00 PM CDT Freya Schafer NP MICROBIOLOGY Performing Organization Address City/[facility]/ZIP Co de Phone Number [facility] [address] [place] [address], * (ABNORMAL) Electrolytes Panel - DKA (01/13/2024 10:53 AM CDT) Only the most recent of3 resultswithin the time period is included. SODIUM 140 136 - 145 mmol/L 01/13/2024 11:36 AM CDT [facility] POTASSIUM 5.2(H) 3.5 - 5.1 mmol/L 01/13/2024 11:36 AM CDT [facility] CHLORIDE 107 98 - 107 mmol/L 01/13/2024 11:36 AM CDT [facility] CO2,TOTAL 21(L) 22 - 29 mmol/L 01/13/2024 11:36 AM CDT [facility] ANION GAP 12 5 - 18 01/13/2024 11:36 AM CDT [facility] Blood BLOOD SPECIMEN / Unknown Non-Lab Venipuncture / Unknown 01/13/2024 10:53 AM CDT 01/13/2024 11:01 AM CDT Ifeanyi Hernández RN CHEMISTRY Performing Organization Address [facility] Co de Phone Number [facility] [address] [place] [address], * SCAN-CARDIAC STRIP (01/13/2024 8:00 AM CDT) Scanner OTHER * MAGNESIUM (01/13/2024 4:22 AM CDT) Only the most recent of2 resultswithin the time period is included. MAGNESIUM 1.9 1.6 - 2.4 mg/dL 01/13/2024 5:07 AM CDT [facility] Blood BLOOD SPECIMEN / Unknown Non-Lab Venipuncture / Unknown 01/13/2024 4:22 AM CDT 01/13/2024 4:41 AM CDT Ifeanyi Hernández RN CHEMISTRY Performing Organization Address [facility] Co de Phone Number [facility] [address] [place] [address], * (ABNORMAL) Serum Glucose - DKA (01/13/2024 1:52 AM CDT) Only the most recent of2 resultswithin the time period is included. GLUCOSE,RANDOM 459(H) 70 - 139 mg/dL 01/13/2024 2:46 AM CDT [facility] Blood BLOOD SPECIMEN / Unknown Non-Lab Venipuncture / Unknown 01/13/2024 1:52 AM CDT 01/13/2024 2:03 AM CDT Emily Guzman MD CHEMISTRY Performing Organization Address [facility] Co de Phone Number [facility] [address] [place] [address], * (ABNORMAL) TROPONIN T (HS) ONE TIME (01/12/2024 11:39 PM CDT) Pathologist [facility] TROPONIN T HS 45(H) 6-10 ng/L ng/L 01/13/2024 12:22 AM CDT [facility] Blood BLOOD SPECIMEN / Unknown Non-Lab Venipuncture / Unknown 01/12/2024 11:39 PM CDT 01/12/2024 11:45 PM CDT Emily Guzman MD CHEMISTRY Performing Organization Address [facility] de Phone Number [facility] [address] [place] [address], * 12 Lead EKG (01/12/2024 10:16 PM CDT) Pathologist [facility] Interpretation Normal sinus rhythm Left axis deviation Abnormal ECG When compared with ECG of 02-Jan-2019 02:01, Nonspecific T wave abnormality now evident in Lateral leads BEYOND NOW Ventricular Rate 78 BPM BEYOND NOW Atrial Rate 78 BPM BEYOND NOW P-R Interval 160 ms BEYOND NOW QRS Duration 82 ms BEYOND NOW QT 400 ms BEYOND NOW QTc 456 ms BEYOND NOW P [place] 72 degrees BEYOND NOW R [place] -31 degrees BEYOND NOW T [place] 69 degrees BEYOND NOW 01/12/2024 10:1 6 PM CDT 01/13/2024 8:20 PM CDT Emily Guzman MD EKG ORD BEYOND NOW [place], [place] * MRSA/SA PCR (01/12/2024 10:07 PM CDT) MRSA DNA PCR Negative Negative 01/12/2024 11:33 PM CDT [facility] STAPHYLOCOCCUS AUREUS PCR Negative Negative 01/12/2024 11:33 PM CDT [facility] Other SPECIMEN FROM INTERNAL NOSE / Unknown Non-Blood / Unknown 01/12/2024 10:07 PM CDT 01/12/2024 10:13 PM CDT Narrative [facility] - 01/12/2024 11:33 PM CDT Test result does not preclude MRSA or SA nasal colonization. Chaparro Sneed DO MICROBIOLOGY Performing Organization Address City/[facility]/ZIP Co de Phone Number [facility] [address] [place] [address], * (ABNORMAL) Urine Culture (01/12/2024 10:07 PM CDT) CULTURE RESULT(A) 01/16/2024 6:58 AM CDT [facility] CULTURE 10,000-50,000 CFU/mL Proteus mirabilis 01/16/2024 6:58 AM CDT [facility] CULTURE 50,000-100,000 CFU/mL Danita albicans 01/16/2024 6:58 AM CDT [facility] Urine URINE SPECIMEN / [...] 128: R Emily Guzman MD MICROBIOL OGY Performing Organization Address City/[facility] Co de Phone Number [facility] [address] [place] [address], * Blood Culture (01/12/2024 9:40 PM CDT) Only the most recent of2 resultswithin the time period is included. [facility] CULTURE No Growth. 01/16/2024 11:23 PM CDT [facility] Blood BLOOD SPECIMEN / Unknown Venipuncture / Unknown 01/12/2024 9:40 PM CDT 01/12/2024 9:52 PM CDT Narrative [facility] - 01/16/2024 11:23 PM CDT Low volume blood culture received; possible false negative culture. Emily Guzman MD MICROBIOL OGY Performing Organization Address City/[facility] Co de Phone Number [facility] [address] [place] [address], * (ABNORMAL) TROPONIN T(HS) ACUTE W/2HR REFLEX (01/12/2024 9:37 PM CDT) [facility] TROPONIN T HS 47(H) 6-10 ng/L ng/L 01/12/2024 10:16 PM CDT [facility] Blood BLOOD SPECIMEN / Unknown Non-Lab Venipuncture / Unknown 01/12/2024 9:37 PM CDT 01/12/2024 9:46 PM CDT Narrative [facility] - 01/12/2024 10:16 PM CDT hs-cTnT (Elecsys [...] department patient population. Emily Guzman MD [facility]MISTRY [facility] [address] [place] [address], * (ABNORMAL) CBC WITH AUTO DIFFERENTIAL (01/12/2024 9:37 PM CDT) WHITE BLOOD COUNT 14.9(H) 4.5 - 11.0 thou/cu mm 01/12/2024 9:54 PM CDT [facility] RED BLOOD COUNT 3.61(L) 4.00 - 5.20 mil/cu mm 01/12/2024 9:54 PM CDT [facility] HEMOGLOBIN 10.5(L) 12.0 - 16.0 g/dL 01/12/2024 9:54 PM CDT [facility] HEMATOCRIT 32.6(L) 33.0 - 51.0 % 01/12/2024 9:54 PM CDT [facility] MCV 90 80 - 100 fL 01/12/2024 9:54 PM CDT [facility] MCH 29.1 26.0 - 34.0 pg 01/12/2024 9:54 PM CDT [facility] MCHC 32.2 32.0 - 36.0 g/dL 01/12/2024 9:54 PM CDT [facility] RDW 13.2 11.5 - 15.5 % 01/12/2024 9:54 PM CDT [facility] PLATELET COUNT 273 140 - 440 thou/cu mm 01/12/2024 9:54 PM CDT [facility] MPV 11.0 6.5 - 11.0 fL 01/12/2024 9:54 PM CDT [facility] NRBC 0.0 % 01/12/2024 9:54 PM CDT [facility] ABS NRBC 0.0 thou /cu mm 01/12/2024 9:54 PM CDT [facility] % NEUT 80.3 % 01/12/2024 9:54 PM CDT [facility] % LYMPH 9.6 % 01/12/2024 9:54 PM CDT [facility] % MONO 9.2 % 01/12/2024 9:54 PM CDT [facility] % EOS 0.1 % 01/12/2024 9:54 PM CDT [facility] % BASO 0.1 % 01/12/2024 9:54 PM CDT [facility] % IMMATURE GRAN (METAS,MYELOS,WA OS) 0.7 % 01/12/2024 9:54 PM CDT [facility] ABSOLUTE NEUTROPHILS 12.0(H) 1.7 - 7.0 thou/cu mm 01/12/2024 9:54 PM CDT [facility] ABSOLUTE LYMPHOCYTES 1.4 0.9 - 2.9 thou/cu mm 01/12/2024 9:54 PM CDT [facility] ABSOLUTE MONOCYTES 1.4(H) <0.9 thou/cu mm 01/12/2024 9:54 PM CDT [facility] ABSOLUTE EOSINOPHILS 0.0 <0.5 thou/cu mm 01/12/2024 9:54 PM CDT [facility] ABSOLUTE BASOPHILS 0.0 <0.3 thou/cu mm 01/12/2024 9:54 PM CDT [facility] ABSOLUTE IMMATURE GRANULOCYTES(MET ,MYELOS,PROS) 0.1 <0.3 thou/cu mm 01/12/2024 9:54 PM CDT [facility] Blood BLOOD SPECIMEN / Unknown Non-Lab Venipuncture / Unknown 01/12/2024 9:37 PM CDT 01/12/2024 9:46 PM CDT Emily Guzman MD HEMATOLOG Y [facility] [address] [place] [address], * (ABNORMAL) BLOOD GAS,VENOUS (01/12/2024 9:37 PM CDT) PH, VENOUS 7.25(L) 7.32 - 7.43 01/12/2024 9:52 PM CDT [facility] PCO2, VENOUS 44 41 - 51 mmHg 01/12/2024 9:52 PM CDT [facility] PO2, VENOUS 48(H) 35 - 40 mmHg 01/12/2024 9:52 PM CDT [facility] HCO3,VENOUS 19(L) 22 - 29 mmol/L 01/12/2024 9:52 PM CDT [facility] BASE EXCESS, VENOUS, POCT -7.7(L) -2.0 - 3.0 01/12/2024 9:52 PM CDT [facility] O2 SATURATION, VENOUS 85(H) 70 - 75 % 01/12/2024 9:52 PM CDT [facility] INSPIRED O2 21 01/12/2024 9:52 PM CDT [facility] Comment:Unit of Measure: Lit ers (L) if <=20; Percent (%) if >20 PATIENT TEMPERATURE 36.9 Degrees C 01/12/2024 9:52 PM CDT [facility] Blood VENOUS BLOOD SPECIMEN / Unknown Non-Lab Venipuncture / Unknown 01/12/2024 9:37 PM CDT 01/12/2024 9:46 PM CDT Emily Guzman MD CHEMISTRY [facility] [address] [place] [address], * Protime - INR (01/12/2024 9:37 PM CDT) INR 1.0 <1.3 01/12/2024 9:56 PM CDT [facility] PROTIME 11.5 10.3 - 12.3 sec 01/12/2024 9:56 PM CDT [facility] Blood BLOOD SPECIMEN / Unknown Non-Lab Venipuncture / Unknown 01/12/2024 9:37 PM CDT 01/12/2024 9:46 PM CDT Narrative [facility] - 01/12/2024 9:56 PM CDT ?Therapeutic Range [...] on UFH. Emily Guzman MD HEMATOLOG Y [facility] [address] [place] [address], * (ABNORMAL) HEMOGLOBIN A1C MONITORING (POCT) (01/12/2024 9:37 PM CDT) Only the most recent of2 resultswithin the time period is included. HEMOGLOBIN A1C MONITORING (POCT) 9.3(H) <=6.4 % 01/14/2024 10:29 AM CDT [facility] Blood BLOOD SPECIMEN / Unknown Non-Lab Venipuncture / Unknown 01/12/2024 9:37 PM CDT 01/12/2024 9:46 PM CDT Narrative [facility] - 01/14/2024 10:29 AM CDT ? (<=6.9%) [...] Anemias, Splenectomy ? Barbara Holcomb NP CHEMISTRY Performing Organization Address City/[facility]/ZIP Co de Phone Number [facility] [address] [place] [address], [place] * (ABNORMAL) Hepatic Function Panel (01/12/2024 9:37 PM CDT) ALBUMIN 3.2(L) 4.0 - 4.9 g/dL 01/12/2024 10:16 PM CDT [facility] PROTEIN,TOTAL 6.4 6.0 - 8.0 g/dL 01/12/2024 10:16 PM CDT [facility] BILIRUBIN,TOTAL 0.2 0.0 - 1.2 mg/dL 01/12/2024 10:16 PM CDT [facility] BILIRUBIN,DIRECT <0.2 0.0 - 0.3 mg/dL 01/12/2024 10:16 PM CDT [facility] BILIRUBIN,INDIRE CT 01/12/2024 10:16 PM CDT [facility] Comment:Unable to calculate, Direct Bili <0.2 ALK PHOSPHATASE 122(H) 35 - 104 IU/L 01/12/2024 10:16 PM CDT [facility] ALT (SGPT) 21 10 - 35 IU/L 01/12/2024 10:16 PM CDT [facility] AST (SGOT) 20 10 - 35 IU/L 01/12/2024 10:16 PM CDT [facility] Blood BLOOD SPECIMEN / Unknown Non-Lab Venipuncture / Unknown 01/12/2024 9:37 PM CDT 01/12/2024 9:46 PM CDT Emily Guzman MD CHEMISTRY Performing Organization Address City/[facility]/ZIP Co de Phone Number [facility] [address] [address], [place] * SCAN-CARDIAC STRIP (01/12/2024 9:20 PM CDT) [...] health care provider. XR MAMMO BILAT SCREENING [[id number]] CLINICAL HISTORY: ??This is an asymptomatic 61 y.o. patient. INDICATION FOR EXAM: Mammogram Screening. TECHNIQUE: CC & MLO views were obtained. ??This study was evaluated with the assistance of Computer-Aided Detection. COMPARISON FILM: Yes [facility] FINDINGS: ??The breasts are extremely dense, which lowers the sensitivity of mammography. There are no dominant masses, suspicious micro calcifications or areas of architectural distortion. Shania Montiel MD MAMMO * LIPID PANEL W REFLEX MEASURED LDL (04/28/2022 1:44 PM CDT) CHOLESTEROL,TOTAL 139 100 - 199 mg/dL 04/30/2022 6:25 PM CDT [facility] TRIGLYCERIDES 141 <150 mg/dL 04/30/2022 6:25 PM CDT [facility] HDL CHOLESTEROL 42 >40 mg/dL 2 6:25 PM CDT [facility] NON-HDL CHOLESTEROL 97 <145 mg/dl 04/30/2022 6:25 PM CDT [facility] CHOL/HDL RATIO 3.31 <4.50 04/30/2022 6:25 PM CDT [facility] LDL CHOLESTEROL 69 <=130 mg/dL 04/30/2022 6:25 PM CDT [facility] VLDL CHOLESTEROL 28 <=30 mg/dL 04/30/2022 6:25 PM CDT [facility] PROVIDER ORDERED STATUS RANDOM 04/30/2022 6:25 PM CDT [facility] Blood BLOOD SPECIMEN / Unknown Venipuncture / Unknown 04/28/2022 1:44 PM CDT 04/28/2022 1:45 PM CDT Shania Montiel MD CHEMISTRY Performing Organization Address [facility]/ZIP Co de Phone Number [facility] [address] [place] [address], * FECAL DNA (AKA COLOGUARD) (11/10/2021 1:00 PM CDT) Shania Montiel MD COMMUNICATION ORD * ANTI HCV [[id number]] (02/16/2018 4:20 PM CDT) Pathologist [facility] HEPATITIS C ANTIBODY Non-React alex Non-React alex 02/17/2018 2:48 PM CDT [facility] Comment:Antibodies to HCV no t detected; does not exclude the possibility of exposure to HCV. Blood BLOOD SPECIMEN / Unknown Butterfly / Unknown 02/16/2018 4:20 PM CDT 02/16/2018 4:20 PM CDT Coleman Plata MD SEND OUTS Performing Organization Address City/[facility]/ZIP Co de Phone Number [facility] [address] [place] [address], * HIV 1&2 TODAY (07/21/2015 9:40 AM EXTERNAL GRINDER) Pathologist [facility] HIV-1/HIV-2 ANTIBODY Non-Reacti ve Non-Reacti ve 07/21/2015 10:31 AM EXTERNAL GRINDER [facility] Blood specimen (specimen) BLOOD SPECIMEN / Unknown Venipuncture / Unknown 07/21/2015 9:40 AM EXTERNAL GRINDER 07/21/2015 9:47 AM EXTERNAL GRINDER Narrative [facility] - 07/21/2015 10:31 AM EXTERNAL GRINDER HIV-1 p24 and HIV-1/HIV-2 Ab not detected Kait Morales DO SEND OUTS [facility] [address] [place] [address], * ANALYST COMPETITIVE INTELLIGENCE THIN PREP PAP SCREEN IMAGED (08/17/2012 4:02 PM EXTERNAL GRINDER) CYTOLOGY CYTOPATHOLOGY REPORT [facility] Status: Final Status ?[id number] CLINICAL INFORMATION Last Date of LMP ? :07/03/2012 Last Pap Date ?:02/01/2011 Last Pap Result ?:NIL ABN [place]/Bx Past 5 YRS :None Hormone Usage ?:BCP/OCP/Patch/R ing Menstrual Status ? :Regular Periods [place]/Bx done today ? :No Additional Information :None [...] specimen (specimen) (Cervical/Vagina l) 08/17/2012 4:02 PM EXTERNAL GRINDER 08/17/2012 4:00 PM EXTERNAL GRINDER Coleman Plata MD PATHOLOGY/CYTOLOGY [facility] [place] ZIP [id number] [place] [address] from Last 3 Months or Most Recently [...] Urine earlier this year (per report from [facility], not available in CareEverywhere), 04/19/18 L cheek [...] 8:01 PM 07/15/2012 6:55 PM Care Teams Physical Therapy Nurse Relationship Specialty Start Date End Date Barbara Valentin DO [address] [place] [address] PCP - General Family Practice 11/15/22 Julio Ibrahim MD [address] [place] [address] Surgery - Orthopedics 02/01/11 Chuy Doss MD [address] [place], [place] [id number] Surgery - Vascular 02/01/11 Markel Strong MD [address] [place] [address] Provider Family Practice 08/08/20 Nikolai Ibarra MD [address] [facility] [address] [place] [address] Endocrinology 09/07/22 [facility] [address] [place] [address] 01/17/24 Suad Ng/ [employer] Restaurant Shift Leader 07/14/17 [facility] Home Health Nurse 07/01/17 [facility] [employer] O[employer] Services Home Health Aide 07/14/17 [facility] [employer] Wafer Inspector/ Ally Christianson [address] [place] [address] Restaurant Shift Leader 07/07/17
== END 2024-01-19 15:08 | disposition home or self-care (01) ==
LOC: WOUND 15:07
PROVIDERS: PCP Family Medicine; Visit Provider Nurse Practitioner Family
DX: E11.621 Type 2 diabetes mellitus with foot ulcer (principal); L97.422 Non-pressure chronic ulcer of left heel and midfoot with fat layer exposed; M14.672 Charcot's joint, left ankle and foot; Z79.4 Long term (current) use of insulin
CPT/HCPCS: 11042

== ENCOUNTER 2024-01-22 00:35 | Outpatient (CLI) | payer OTHER, SELFPAY ==
--- OUTSIDE RECORDS SUMMARY | 2024-01-23 13:39 | XMS_ITS | Clinical Summary ---
Author Organization [facility] [place] [place] Address [address] [facility] [place] [address] Phone Care Team Providers Care Jv Baseball Coach Name Role Phone Sir Valentinesteban Gomez DO [...] One Pack) 3 MG/DOSE powder Inhale 1 [place] into affected nostril(s) each time if needed [...] Encounters Date Type Department Care Team Description 01/23/2024 Documentation Only [facility] [place] [address] [place] [address] Ronnell Kirby 01/23/2024 Office Communication [facility] [address] [place] [address] Ronnell Kirby 11/10/2023 3:30 PM EDT Office Visit [facility] [place] [place] [address] [address] Gabriel Hicks MD Chronic kidney disease, stage 4 (severe) (HCC) (Primary Dx); 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); Chronic diastolic congestive heart failure (HCC); Secondary hyperparathyroidism of renal origin (HCC); Anemia in chronic kidney disease 11/10/2023 Documentation Only [facility] [place] [place] [address] Dave Hurst from Last 3 Months Immunizations Name [...] [facility] [place] [address] [facility] [address] [place] [phone] Sandy Jimenez, COMMUTATOR TESTER-NNP [address] [facility] [address] [place] [phone] Health Maintenance Due Date Last Done Comments [...] Exam 09/22/2023 Diabetes: Visual Foot Exam 09/22/2023 Influenza Vaccine (#1) 2024 , 04/28/2021, 05/18/2019, Additional history exists Diabetes: Hemoglobin A1C 04/13/2024 024, 12/23/2023, 09/21/2023 Hepatitis B Vaccine Aged Out No longe r eligible based on patient's age to complete this topic Procedures Procedure Name Priority Date/Time Associated Diagnosis Comments BASIC METABOLIC PANEL (BMP) (EXTERNAL LAB ENTRY) Routine 01/17/2024 CREATINE Routine 01/17/2024 CREATINE Routine 01/16/2024 CREATINE Routine 01/15/2024 HEMOGLOBIN Routine 01/15/2024 BASIC METABOLIC PANEL (BMP) (EXTERNAL LAB ENTRY) Routine 01/14/2024 CBC Routine 01/14/2024 BASIC METABOLIC PANEL (BMP) (EXTERNAL LAB ENTRY) Routine 01/13/2024 CBC Routine 01/12/2024 BASIC METABOLIC PANEL (BMP) (EXTERNAL LAB ENTRY) Routine 01/12/2024 from Last 3 Months Results * (ABNORMAL) Basic Metabolic Panel (BMP) (01/17/2024) Only the most recent of4 resultswithin the time period is included. Sodium 139 mEq/L [facility] Potassium 3.9 mEq/L [facility] Chloride 103 [facility] Carbon Dioxide 24 mmol/L [facility] Calcium 8.7(L) mg/dL [facility] BUN 17 mg/dL [facility] Creatinine 1.31(H) mg/dL [facility] Glucose 162(H) mg/dL [facility] eGFR 46(L) [facility] Anion Gap 12 [facility] 01/17/2024 Historical Provider MD LAB BLOOD ORDERAB LES Performing Organization Address City/[facility] Co de Phone Number [facility] * (ABNORMAL) Creatine (01/17/2024) Only the most recent of3 resultswithin the time period is included. Creatine, Serum 1.28(H) [facility] GFR Calculated 47(L) [facility] Blood (Blood, Venous) 01/17/2024 Historical Provider MD LAB BLOOD ORDERAB LES Performing Organization Address [facility] Co de Phone Number [facility] * (ABNORMAL) Hemoglobin (01/15/2024) Hemoglobin 8.4(L) g/dL [facility] MCV 91.0 [facility] Blood (Blood, Venous) 01/15/2024 Historical Provider MD LAB BLOOD ORDERAB LES Performing Organization Address [facility] Co de Phone Number [facility] * (ABNORMAL) CBC (01/14/2024) Only the most recent of2 resultswithin the time period is included. WBC 8.5 K/uL [facility] Red Blood Cell Count 3.04(L) [facility] Hemoglobin 8.9(L) g/dL [facility] Hematocrit 27.5(L) % [facility] MCV 91 [facility] MCH 29.3 [facility] MCHC 32.4 [facility] RDW 14.4 [facility] Platelet Count 198 [facility] MPV 11.4(H) [facility] Blood (Blood, Venous) 01/14/2024 Historical Provider MD LAB BLOOD ORDERAB LES Performing Organization Address [facility] Co de Phone Number [facility] from Last 3 Months Care Teams Jv Baseball Coach Relationship Specialty Start Date End Date Barbara Valentin DO [address] [place] [address] PCP - General Family Medicine 09/22/23
--- OUTSIDE RECORDS SUMMARY | 2024-01-23 13:39 | XMS_ITS | Encounter Summary ---
Author Organization [facility] [place] [place] Address [address] [place] [address] Care Team Providers Care Blower Blast Furnace Name Role Phone Barbara Valentin Primary Care Provider Kevin zepeda Encounter Details Date Type Department Care Team (Late st Contact Info) Description 01/23/2024 Office Communication [facility] [place] [address] [place] [address] Ronnell Kirby [address] [place] [address] Social History Tobacco Use Types Packs/Day Years Used Date Smoking Tobacco: Never Smokeless Tobacco: Never Alcohol Use Standard Drinks/Week Comments Not Currently 0 (1 standard drink = 0.6 oz pur e alcohol) Sex and Gender Information Value Date Recorded Sex Assigned at Not on file Gender Identity Not on file Sexual Orientation Not on file documented as of this encounter Miscellaneous Notes * Telephone Encounter - Ronnell Kirby - 01/23/2024 10:11 AM CDT error documented in this encounter Plan of Treatment Upcoming Encounters Date Type Department Care Team (Late st Contact Info) Description 02/01/2024 11:00 AM EDT Office Visit [facility] [place] [address] [place] [phone] Sandy Jimenez, COLLECTION SYSTEMS TECHNICIAN-SALES TEAM MEMBER [address] [place] [phone] documented as of this encounter Visit Diagnoses Not on filedocumented in this encounter Care Teams Blower Blast Furnace Relationship Specialty Start Date End Date Barbara Valentin DO [address] [place] [address] PCP - General Family Medicine 09/22/23 documented as of this encounter
--- OUTSIDE RECORDS SUMMARY | 2024-01-23 13:39 | XMS_ITS | Encounter Summary ---
Author Organization [facility] [place] Address [address] [place] [address] Care Team Providers Care Sweatband Separator Name Role Phone Barbara Valentin Primary Care Provider Kevin zepeda Encounter Details Date Type Department Care Team (Late st Contact Info) Description 11/10/2023 Documentation Only [facility] [place] [facility] [place] [address] Dave Hurst [address] [facility] [address] [place] [address] Social History Tobacco Use Types [...] EDT Office Visit [facility] [address] [place] [address] Sandy Jimenez, RASPER MACHINE OPERATOR-SENIOR LINUX UNIX ENGINEER [address] [place] [address] documented as of this encounter [...] LAB BLOOD ORDERAB LES Performing Organization Address City/State/[facility] Co de [...] * (ABNORMAL) Albumin/Creatinine in Urine (05/19/2023) Pathologist [facility] Albumin, Urine 55.6 mg/L [facility] Creatinine, Urine Random 0.53 g/L [facility] Alb/Creat Ratio, Ur 104.9(H) mg/g Creat [facility] Urine (Urine) 05/19/2023 Historical Provider LAB URINE ORDERAB LES BESSY * (ABNORMAL) CBC (02/28/2023) Pathologist [facility] WBC 4.6 K/uL [facility] Red Blood Cell [...] on filedocumented in this encounter Care Teams Sweatband Separator Relationship Specialty Start Date End Date Barbara Valentin DO [address] [place] [address] PCP - General Family Medicine 09/22/23 documented as of this encounter
--- OUTSIDE RECORDS SUMMARY | 2024-01-23 13:39 | XMS_ITS | Encounter Summary ---
Author Organization [facility] [place] Address [address] [place] [address] Care Team Providers Care Overlock Collar Setter Name Role Phone Barbara Valentin Primary Care Provider Kevin zepeda Encounter Details Date Type Department Care Team (Late st Contact Info) Description 01/23/2024 Documentation Only [facility] [place] [address] [place] [address] Ronnell Kirby [address] [place] [address] Social History Tobacco Use Types Packs/Day Years Used Date Smoking Tobacco: Never Smokeless Tobacco: Never Alcohol Use Standard Drinks/Week Comments Not Currently 0 (1 standard drink = 0.6 oz pur e alcohol) Sex and Gender Information Value Date Recorded Sex Assigned at Not on file Gender Identity Not on file Sexual Orientation Not on file documented as of this encounter Progress Notes * Ronnell Kirby - 01/23/2024 10:12 AM CDT In patients chart to database labs documented in this encounter Plan of Treatment Upcoming Encounters Date Type Department Care Team (Late st Contact Info) Description 02/01/2024 11:00 AM EDT Office Visit [facility] [place] [address] [place] [phone] Sandy Jimenez, CHEMIST INTERNSHIP-MANAGER ACUTE [address] [place] [phone] documented as of this encounter Procedures Procedure Name Priority Date/Time Associated Diagnosis Comments BASIC METABOLIC PANEL (BMP) (EXTERNAL LAB ENTRY) Routine 01/17/2024 CREATINE Routine 01/17/2024 CREATINE Routine 01/16/2024 CREATINE Routine 01/15/2024 HEMOGLOBIN Routine 01/15/2024 BASIC METABOLIC PANEL (BMP) (EXTERNAL LAB ENTRY) Routine 01/14/2024 CBC Routine 01/14/2024 BASIC METABOLIC PANEL (BMP) (EXTERNAL LAB ENTRY) Routine 01/13/2024 BASIC METABOLIC PANEL (BMP) (EXTERNAL LAB ENTRY) Routine 01/12/2024 CBC Routine 01/12/2024 documented in this encounter Results * (ABNORMAL) Basic Metabolic Panel (BMP) (01/17/2024) Sodium 139 mEq/L [facility] Potassium 3.9 mEq/L [facility] Chloride 103 [facility] Carbon Dioxide 24 mmol/L [facility] Calcium 8.7(L) mg/dL [facility] BUN 17 mg/dL [facility] Creatinine 1.31(H) mg/dL [facility] Glucose 162(H) mg/dL [facility] eGFR 46(L) [facility] Anion Gap 12 [facility] 01/17/2024 Historical Provider LAB BLOOD ORDERAB LES [facility] * (ABNORMAL) Creatine (01/17/2024) Creatine, Serum 1.28(H) [facility] GFR Calculated 47(L) [facility] Blood (Blood, Venous) 01/17/2024 Historical Provider MD LAB BLOOD ORDERAB LES Performing Organization Address [facility] Co de Phone Number [facility] * (ABNORMAL) Creatine (01/16/2024) Creatine, Serum 1.28(H) [facility] GFR Calculated 47(L) [facility] Blood (Blood, Venous) 01/16/2024 Historical Provider MD LAB BLOOD ORDERAB LES Performing Organization Address [facility] de Phone Number [facility] * (ABNORMAL) Creatine (01/15/2024) Creatine, Serum 1.71(H) [facility] GFR Calculated 34(L) [facility] Blood (Blood, Venous) 01/15/2024 Historical Provider MD LAB BLOOD ORDERAB LES Performing Organization Address [facility] Co de Phone Number [facility] * (ABNORMAL) Hemoglobin (01/15/2024) Hemoglobin 8.4(L) g/dL [facility] MCV 91.0 [facility] Blood (Blood, Venous) 01/15/2024 Historical Provider MD LAB BLOOD ORDERAB LES Performing Organization Address [facility] Co de Phone Number [facility] * (ABNORMAL) Basic Metabolic Panel (BMP) (01/14/2024) Sodium 144 mEq/L [facility] Potassium 4.4 mEq/L [facility] Chloride 112(H) [facility] Carbon Dioxide 23 mmol/L [facility] Calcium 8.4(L) mg/dL [facility] BUN 57(H) mg/dL [facility] Creatinine 2.61(H) mg/dL [facility] Glucose 179(H) mg/dL [facility] eGFR 20(L) [facility] Anion Gap 9 [facility] 01/14/2024 Historical Provider MD LAB BLOOD ORDERAB LES Performing Organization Address [facility]/ZIP Co de Phone Number [facility] * (ABNORMAL) CBC (01/14/2024) WBC 8.5 K/uL [facility] Red Blood Cell Count 3.04(L) [facility] Hemoglobin 8.9(L) g/dL [facility] Hematocrit 27.5(L) % [facility] MCV 91 [facility] MCH 29.3 [facility] MCHC 32.4 [facility] RDW 14.4 [facility] Platelet Count 198 [facility] MPV 11.4(H) [facility] Blood (Blood, Venous) 01/14/2024 Historical Provider MD LAB BLOOD ORDERAB LES Performing Organization Address [facility] Co de Phone Number [facility] * (ABNORMAL) Basic Metabolic Panel (BMP) (01/13/2024) Sodium 143 mEq/L [facility] Potassium 4.6 mEq/L [facility] Chloride 111(H) [facility] Carbon Dioxide 21(L) mmol/L [facility] Calcium 8.0(L) mg/dL [facility] BUN 65(H) mg/dL [facility] Creatinine 3.10(H) mg/dL [facility] Glucose 143(H) mg/dL [facility] eGFR 16(L) [facility] Anion Gap 11 [facility] 01/13/2024 Historical Provider MD LAB BLOOD ORDERAB LES Performing Organization Address [facility] Co de Phone Number [facility] * (ABNORMAL) CBC (01/12/2024) WBC 14.9(H) K/uL [facility] Red Blood Cell Count 3.61(L) [facility] Hemoglobin 10.5(L) g/dL [facility] Hematocrit 32.6(L) % [facility] MCV 90 [facility] MCH 29.1 [facility] MCHC 32.2 [facility] RDW 13.2 [facility] Platelet Count 273 [facility] MPV 11.0 [facility] Absolute Neutrophils 12.0(H) [facility] Absolute Lymphocytes 1.4 [facility] Absolute Monocytes 1.4(H) [facility] Absolute Eosinophils 0.0 [facility] Absolute Basophils 0.0 [facility] Neutrophils 80.3 K/uL [facility] Lymphocytes 9.6 [facility] Monocytes 9.2 [facility] Eosinophils 0.1 [facility] Basophils 0.1 [facility] Blood (Blood, Venous) 01/12/2024 Historical Provider LAB BLOOD ORDERAB LES [facility] * (ABNORMAL) Basic Metabolic Panel (BMP) (01/12/2024) Sodium 138 mEq/L [facility] Potassium 5.1 mEq/L [facility] Chloride 99 [facility] Carbon Dioxide 19(L) mmol/L [facility] Calcium 7.8(L) mg/dL [facility] BUN 78(H) mg/dL [facility] Creatinine 3.88(H) mg/dL [facility] Glucose 690(Critic al Hig) mg/dL [facility] eGFR 13(L) [facility] Anion Gap 20(H) [facility] 01/12/2024 Historical Provider LAB BLOOD ORDERAB LES [facility] documented in this encounter Visit Diagnoses Not on filedocumented in this encounter Care Teams Overlock Collar Setter Relationship Specialty Start Date End Date Barbara Valentin DO [address] [place] [address] PCP - General Family Medicine 09/22/23 documented as of this encounter
--- OUTSIDE RECORDS SUMMARY | 2024-01-23 13:40 | XMS_ITS | Clinical Summary ---
Author Organization [facility] Address [place], [place] [address] Care Team Providers Care Training Professional Name Role Phone Julio Ibrahim MD Unavailable Chuy Doss MD Unavailable Markel Strong MD Unavailable [phone] Nikolai Ibarra MD Unavailable [phone] Barbara Valentin DO Primary Care Provider [facility] [place] Unavailable Allergies Active Allergy Reactions Criticality Noted [...] mellitus at risk of hypoglycemia Inhale 1 [place] into affected nostril(s) each time if needed for Severe Hypoglycemia. Roll on side and call 911 after administration. 2 Each 12/25/19 22 Active fluticasone (50 mcg per actuation) nasal solution (FLONASE)Indicatio ns:Nasal congestion Inhale 1 [place] into affected nostril(s) once daily. Inhale 1 [place] in the nostril(s) once daily. 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 1 Each 05/19/20 23 Active blood-glucose [...] be used to read blood sugars per cupola liner helper's directions. 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 B.I.D. / PRN For O.A. pain or Diabetic P.N. Pain ; max: 2 a day. Use dates: 01/22/24-02/20/24 60 Tablet 01/20/20 Active hydrocortisone 1 % creamIndications:R senthil APPLY TOPICALLY TO AFFECTED AREA(S) TWICE A DAY 28.4 g 08/23/19 21 024 Discontinued(Ph armacist change per medication history (E-cancel not sent)) blood sugar diagnostic (Phone Specialist Express Test Strip) stripIndications:U ncontrolled type 1 [...] TIMES A DAY 350 g 2 02/03/20 024 Discontinued(Ph armacist change per medication history [...] 90 Capsule 5 06/16/20 23 024 Discontinued acetaminophen SR (TYLENOL ARTHRITIS) [...] history (E-cancel not sent)) durable medical equipment (DME)Indications:S easonal affective disorder [...] change per medication history (E-cancel not sent)) FLUoxetine (PROZAC) 10 mg capsuleIndications :Moderate episode of recurrent major depressive disorder (HC) TAKE 1 CAPSULE (10 MG) BY MOUTH ONCE DAILY. 60 Capsule 11/16/19 24 024 Discontinued(Ph armacist change per medication history (E-cancel not sent)) Diaper,Brief, Adult,Disposable (Per-Fit Underwear)Indicati ons:Urinary incontinence, unspecified type ADULT PULL UPS XL THREE TIMES A DAY DIRECTED 96 Each 11 12/10/19 24 024 Discontinued(Ph armacist change per [...] TO TOTAL 150MG 90 Capsule 12/30/19 24 024 Discontinued(Ph armacist change per [...] day. Use dates: 01/22/24-02/20/24 60 Tablet 01/19/20 24 024 Discontinued(Ph armacist change per medication history (E-cancel not sent)) pregabalin (LYRICA) 100 mg capsule Take 200 mg by mouth once daily in the morning. Discontinued pregabalin (Lyrica) 50 mg capsule Take 150 mg by mouth at bedtime. Discontinued(*I P Discontinued) insulin glargine, U-100, (LANTUS) 100 unit/mL injection Inject 15 units subcutaneous before bedtime. Discontinued insulin aspart, U-100, (NOVOLOG FLEXPEN) 100 unit/mL (3 mL) pen Inject 8 units subcutaneous three times daily before meals. Discontinued Active Problems Patient Care Coordination No [...] substance agreement signed - 10/07/23 10/07/2023 Overview: [facility] Noem[facility] Dennis .................... 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 [phone] 01/18/2024 [facility] [address] [place] [address] Maria R Ho, RN Primary RN Care Management; Hospital F/U (Lace 44) 01/18/2024 Travel 01/12/2024 9:13 PM CDT - 01/17/2024 5:23 PM CDT Hospital Encounter [facility] [address] [place] [address] Megan, MD Nedra Valverde, DO Chente Honeycutt, MD Dusty Manjarrez, MD Ricky Alston, Helder Hoover MD [facility] Hospitalists Of Opioid dependence, uncomplicated (HC) (Primary Dx); Nasal congestion; Chronic pain syndrome; Diabetic ketoacidosis without coma associated with type 1 diabetes mellitus (HC); 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 [address] [place] [address] Toshia Hooks NP Follow Up; Pain (Multi source; was told by her Director Utilization Management she can ot use OTC Voltaren gel., which had been helping her O.A. pain (hands; wrists; shoulders; ) ) 01/06/2024 Travel 01/02/2024 Telephone [facility] [address] [place] [address] Barbara Valentin, DO Follow Up 12/27/2023 Refill [facility] [address] [place] [address] Barbara Valentin Patricia, DO Refill Request (Pregabalin, Cetirizine) 12/23/2023 2:35 PM CDT Office [facility] [address] [facility] [place] [address] Barbara Valentin Patricia, DO Diabetes (3 month check, labs); Rash (Rash under breasts? ) 12/23/2023 Travel 12/20/2023 Refill [facility] [address] [place] [address] Barbara Valentin Patricia, DO Refill Request (Humalog Kwikpen Insulin) 12/16/2023 Refill [facility] [address] [place] [address] Toshia Hooks NP Refill Request (Patient son called requesting oxycodone 5 mg at [facility].////) 12/15/2023 Telephone [facility] [address] [place] [address] Barbara Valentin Patricia, DO Lab 12/08/2023 Refill [facility] [address] [place] [address] Sir Valentini Patricia, DO Refill Request (Ulticare Pen Needle, Per-fit Underwear) 12/07/2023 Refill [facility] [address] [place] [address] Sir Valentini Patricia, DO Refill Request (Ulticare Pen Needle) 11/29/2023 Telephone [facility] [address] [place] [address] Barbara Valentin Patricia, DO Referral 11/29/2023 Refill [facility] [address] [place] [address] Sir Valentini Patricia, DO Refill Request (Cholecalciferol) 11/18/2023 Refill [facility] [address] [place] [address] Toshia Hooks NP Refill Request (oxycodone 5 mg at [facility]) 11/17/2023 Telephone [facility] [address] [place] [address] Shaqra, Barbara Patricia, DO Questions (Vish rod R.N. registered nurse hh case manager with [facility] care has some questions for pcp) 11/15/2023 Refill [facility] [address] [place] [address] Shaqra, Barbara Patricia, DO Refill Request (Levothyroxine, Fluoxetine) 11/11/2023 Telephone [facility] [address] [place] [address] Shaqra, Barbara Patricia, DO questions and concerns (vish jennings R.N. called in with questions and concerns for PCP) 10/26/2023 Telephone [facility] [address] [place] [address] Shaqra, Barbara Patricia, DO Medication Management from Last 3 Months Immunizations Name Administration Dates Next Due AMB Influenza, IIV3 (Age >=3 years)(Flu Clinic Only) 05/17/2013,05/06/2010 COVID-19 vaccine (Tzee-Bio NTech 30mcg/0.3mL) 12YO+ BIVALENT PF, MDV 04/28/2022 COVID-19 vaccine (Tzee-Bio NTech 30mcg/0.3mL) PF, MDV 06/23/2021 Hepatitis B [...] Care Team (Late st Contact Info) Description 01/24/2024 3:00 AM CDT Home Care Visit [address] [phone] Coleman Greene, PT [address] [place] [address] 01/24/2024 9:30 AM CDT Home Care Visit [address] [phone] Fabiola Mathis [address] [address] 01/27/2024 11:30 AM CDT Home Care Visit [address] [phone] Fabiola Mathis [address] [address] 01/30/2024 3:00 AM CDT Home Care Visit [address] [phone] Coleman Greene, PT [address] [place] [address] 01/31/2024 9:30 AM CDT Home Care Visit [address] [phone] Fabiola Mathis [address] [place] [address] 02/01/2024 3:00 AM CDT Home [facility] Visit [facility] [address] [place] [phone] Coleman Greene, PT [address] [place] [address] 02/01/2024 11:00 AM CDT [facility] Visit [facility] [address] [place] [address] Barbara Valentin [address] [place] [address] 02/03/2024 11:30 AM CDT Home Care Visit [facility] [address] [place] [phone] Fabiola Mathis [address] [place] [address] 02/06/2024 3:00 AM CDT Home Care Visit [facility] [address] [place] [phone] Coleman Greene, PT [address] [place] [address] 02/07/2024 9:30 AM CDT Home Care Visit [facility] [address] [place] [phone] Fabiola Mathis [address] [place] [address] 02/10/2024 11:30 AM CDT Home Care Visit [facility] [address] [place] [phone] Fabiola Mathis [address] [address] 02/13/2024 3:00 AM CDT Home Care Visit [place] [id number] [place] [phone] Coleman Greene, PT [address] [place] [address] 02/14/2024 9:30 AM CDT Home Care Visit [address] [phone] Fabiola Mathis [address] [address] 02/17/2024 11:30 AM CDT Home Care Visit [place] [id number] [place] [phone] Fabiola Mathis [address] [address] 03/26/2024 3:25 PM CDT Office Visit [facility] [address] [place] [address] Barbara Valentin, DO [address] [place] [address] 05/04/2024 3:30 PM CDT Phone Office Visit [facility] [address] [facility] [address] [place] [address] Nikolai Ibarra MD [address] [facility] [address] [place] [address] Health Maintenance Due Date Last Done Comments [...] 03/18/2020, Additional history exists Fecal testing sDNA-FIT (Fenton guard) for age 45-75 11/10/2024 11/10/2021 Pneumococcal series for age 6-64 (3 of 3 - PPSV23 or PCV20) 2026 08/17/2016, 08/14/2014, 07/04/2005, Additional history exists Lipids for age 45-75 04/28/2027 04/28/2022, 08/17/2019, 08/31/2018, Additional history exists Tdap Completed 08/25/2010 HIV for age 15-65 Completed 07/21/2015 Hepatitis C screening for ag e 18-79 Completed 02/16/2018 Medical Devices Implanted Type Area Steam Service Inspector Device Identifier Shelf Expiration Date Model / Serial / Lot [id number] 2x12mm [[id number]] Implanted:Qty: 1 on 08/08/2008 at [facility] Explanted:at [facility] (Quantity not on file) [employer] [id number]# / [id number] / Stem Compnt Primary 8mm Mini - [id number] Implanted:Qty: 1 on 03/17/2011 at [facility] Right: Shoulder BIOMET [id number]# / / [id number] Head Hum Bio-Mod [id number] - [id number] Implanted:Qty: 1 on 03/17/2011 at [facility] Right: Shoulder BIOMET [id number]# / / [id number] Base Glenoid Hybrid 4mm Sm - [id number] Implanted:Qty: 1 on 03/17/2011 at [facility] Right: Shoulder BIOMET [id number]# / / [id number] Cmnt 1/2 Dosehowmedica - [id number] Implanted:Qty: 1 on 03/17/2011 at [facility] Right: Shoulder [employer] 6188-1-01 0# / / [id number] Post Glenoid Hybrid Regenerex - [id number] Implanted:Qty: 1 on 03/17/2011 at [facility] Right: Shoulder BIOMET [id number] # / / [id number] Head Humeral 44x15 Co Cr Biomodular - [id number] Implanted:Qty: 1 on 07/12/2012 at [facility] Left: Shoulder BIOMET [id number]# / / [id number] Shoulder Stem Implanted:Qty: 1 on 07/12/2012 at [facility] Left: Shoulder [id number] / / [id number] Description:SHOULDER STEM Cmnt Bone 1/2 D[employer] - [id number] Implanted:Qty: 1 on 07/12/2012 at [facility] Left: Shoulder [employer] 6188-1-01 0# / / [id number] Post Glenoid Hybrid Regenerex - [id number] Implanted:Qty: 1 on 07/12/2012 at [facility] Left: Shoulder BIOMET [id number] # / / [id number] Base Glenoid Hybrid 4mm Sm - [id number] Implanted:Qty: 1 on 07/12/2012 at [facility] Left: Shoulder BIOMET [id number]# / / [id number] Procedures Procedure Name Priority Date/Time Associated Diagnosis [...] HIV 1/2 Add On 07/21/2015 9:40 AM TRAIN STATION AGENT WARP DYEING TENDER THIN PREP PAP SCREEN IMAGED Routine 08/17/2012 4:02 PM TRAIN STATION AGENT Screening for malignant neoplasm of the cervix [...] of36 resultswithin the time period is included. GLUCOSE METER 156(H) 65 - 100 mg/dL 01/17/2024 11:35 AM CDT [facility] Blood BLOOD SPECIMEN / Unknown 01/17/2024 11:27 AM CDT 01/17/2024 11:35 AM CDT Helder García MD CHEMISTRY Performing Organization Address [facility] de Phone Number [facility] [address] [address], [place] * (ABNORMAL) CREATININE (01/17/2024 8:20 AM CDT) Only the most recent of3 resultswithin the time period is included. Pathologist [facility] eGFR 47(L) >90 mL/min/1.7 3m2 01/17/2024 9:06 AM CDT [facility] Comment:As of 2021, eG FR is calculated by the CKD-EPI creatinine equation without race adjustment. ??eGFR can be influenced by muscle mass, exercise, and diet. ??The reported eGFR is an estimation only and is only applicable if the renal function is stable. CREATININE 1.28(H) 0.50 - 0.90 mg/dL 01/17/2024 9:06 AM CDT [facility] Blood BLOOD SPECIMEN / Unknown Non-Lab Venipuncture / Unknown 01/17/2024 8:20 AM CDT 01/17/2024 8:26 AM CDT Helder García MD CHEMISTRY Performing Organization Address [facility]/ZIP Co de Phone Number [facility] [address] [address], [place] * PHOSPHORUS (01/17/2024 8:20 AM CDT) Only the most recent of5 resultswithin the time period is included. PHOSPHORUS 2.6 2.5 - 4.5 mg/dL 01/17/2024 9:06 AM CDT [facility] Blood BLOOD SPECIMEN / Unknown Non-Lab Venipuncture / Unknown 01/17/2024 8:20 AM CDT 01/17/2024 8:26 AM CDT Sarah Betancourt RN CHEMISTRY [facility] [address] [place] [address], * (ABNORMAL) BASIC METABOLIC PANEL (01/17/2024 8:20 AM CDT) Only the most recent of5 resultswithin the time period is included. SODIUM 139 136 - 145 mmol/L 01/17/2024 12:35 PM CDT [facility] POTASSIUM 3.9 3.5 - 5.1 mmol/L 01/17/2024 12:35 PM CDT [facility] CHLORIDE 103 98 - 107 mmol/L 01/17/2024 12:35 PM CDT [facility] CO2,TOTAL 24 22 - 29 mmol/L 01/17/2024 12:35 PM CDT [facility] ANION GAP 12 5 - 18 01/17/2024 12:35 PM CDT [facility] GLUCOSE 162(H) 70 - 99 mg/dL 01/17/2024 12:35 PM CDT [facility] CALCIUM 8.7(L) 8.8 - 10.2 mg/dL 01/17/2024 12:35 PM CDT [facility] BUN 17 8 - 23 mg/dL 01/17/2024 12:35 PM T [facility] CREATININE 1.31(H) 0.50 - 0.90 mg/dL 01/17/2024 12:35 PM T [facility] BUN/CREAT RATIO 13 10 - 20 12:35 PM T [facility] eGFR 46(L) >90 mL/min/1.7 3m2 01/17/2024 12:35 PM T [facility] Comment: As of 2021, eGFR [...] Helder García MD CHEMISTRY Performing Organization Address [facility] Co de Phone Number [facility] [address] [address], * CLOSTRIDIOIDES DIFFICILE TOXIN PCR (01/16/2024 12:27 PM CDT) CLOSTRIDIUM DIFFICILE PCR Negative 01/16/2024 2:18 PM CDT [facility] PRESUMPTIVE NAP1 STRAIN Negative 01/16/2024 2:18 PM CDT [facility] Stool STOOL SPECIMEN / Unknown Non-Blood / Unknown 01/16/2024 12:27 PM CDT 01/16/2024 12:51 PM CDT Narrative [facility] - 01/16/2024 2:18 PM CDT The NAP1 (027 or BI) strain is a hypervirulent strain. Detection may be useful for epidemiological purposes. Helder García MD MICROBIOLOGY Performing Organization Address [facility] Co de Phone Number [facility] [address] [address], * SCAN CORRESP-EKG RESULTS (01/16/2024 9:07 AM CDT) Narrative 01/16/2024 9:07 AM CDT Ordered by an unspecified provider. Other Clinical Staff OTHER * (ABNORMAL) HEMOGLOBIN (01/16/2024 6:30 AM CDT) Only the most recent of2 resultswithin the time period is included. HEMOGLOBIN 8.9(L) 12.0 - 16.0 g/dL 01/16/2024 7:13 AM CDT [facility] MCV 91 80 - 100 fL 01/16/2024 7:13 AM CDT [facility] Blood BLOOD SPECIMEN / Unknown Venipuncture / Unknown 01/16/2024 6:30 AM CDT 01/16/2024 6:58 AM CDT Fabrizio Montano MD HEMATOLOGY Performing Organization Address [facility] Co de Phone Number [facility] [address] [place] [address], * VANCOMYCIN (01/16/2024 6:30 AM CDT) Only the most recent of3 resultswithin the time period is included. Pathologist [facility] VANCOMYCIN 13.0 ug/mL 01/16/2024 7:42 AM CDT [facility] Comment:No Reference Range D efined. DATE OF LAST DOSE,RANDOM Not Given 01/16/2024 7:42 AM CDT [facility] TIME OF LAST DOSE,RANDOM Not Given 01/16/2024 7:42 AM CDT [facility] Blood BLOOD SPECIMEN / Unknown Venipuncture / Unknown 01/16/2024 6:30 AM CDT 01/16/2024 6:58 AM CDT Barbara Holcomb NP CHEMISTRY Performing Organization Address [facility] Co de Phone Number [facility] [address] [place] [address], [place] * (ABNORMAL) PLATELET COUNT (01/15/2024 6:02 AM CDT) PLATELET COUNT 166 140 - 440 thou/cu mm 01/15/2024 6:44 AM CDT [facility] MPV 11.2(H) 6.5 - 11.0 fL 01/15/2024 6:44 AM CDT [facility] Blood BLOOD SPECIMEN / Unknown Venipuncture / Unknown 01/15/2024 6:02 AM CDT 01/15/2024 6:26 AM CDT Fabrizio Montano MD HEMATOLOGY Performing Organization Address [facility] Co de Phone Number [facility] [address] [place] [address], [place] * WHITE BLOOD COUNT (01/15/2024 6:02 AM CDT) WHITE BLOOD COUNT 4.9 4.5 - 11.0 thou/cu mm 01/15/2024 6:44 AM CDT [facility] NRBC 0.0 % 01/15/2024 6:44 AM CDT [facility] ABS NRBC 0.0 thou /cu mm 01/15/2024 6:44 AM CDT [facility] Blood BLOOD SPECIMEN / Unknown Venipuncture / Unknown 01/15/2024 6:02 AM CDT 01/15/2024 6:26 AM CDT Fabrizio Montano MD HEMATOLOGY Performing Organization Address [facility] Co de Phone Number [facility] [address] [place] [address], [place] * Sodium AM (01/15/2024 6:02 AM CDT) SODIUM 142 136 - 145 mmol/L 01/15/2024 7:13 AM CDT [facility] Blood BLOOD SPECIMEN / Unknown Venipuncture / Unknown 01/15/2024 6:02 AM CDT 01/15/2024 6:27 AM CDT Fabrizio Montano MD CHEMISTRY Performing Organization Address City/[facility]/ZIP Co de Phone Number [facility] [address] [place] [address], [place] * Potassium AM (01/15/2024 6:02 AM CDT) Only the most recent of3 resultswithin the time period is included. POTASSIUM 4.4 3.5 - 5.1 mmol/L 01/15/2024 7:13 AM CDT [facility] Blood BLOOD SPECIMEN / Unknown Venipuncture / Unknown 01/15/2024 6:02 AM CDT 01/15/2024 6:27 AM CDT Fabrizio Montano MD CHEMISTRY [facility] [address] [place] [address], * SCAN-CARDIAC STRIP (01/14/2024 7:07 AM CDT) Scanner OTHER * (ABNORMAL) CBC W PLT NO DIFF (01/14/2024 5:28 AM CDT) WHITE BLOOD COUNT 8.5 4.5 - 11.0 thou/cu mm 01/14/2024 6:33 AM CDT [facility] RED BLOOD COUNT 3.04(L) 4.00 - 5.20 mil/cu mm 01/14/2024 6:33 AM CDT [facility] HEMOGLOBIN 8.9(L) 12.0 - 16.0 g/dL 01/14/2024 6:33 AM CDT [facility] HEMATOCRIT 27.5(L) 33.0 - 51.0 % 01/14/2024 6:33 AM CDT [facility] MCV 91 80 - 100 fL 01/14/2024 6:33 AM CDT [facility] MCH 29.3 26.0 - 34.0 pg 01/14/2024 6:33 AM CDT [facility] MCHC 32.4 32.0 - 36.0 g/dL 01/14/2024 6:33 AM CDT [facility] RDW 14.4 11.5 - 15.5 % 01/14/2024 6:33 AM CDT [facility] PLATELET COUNT 198 140 - 440 thou/cu mm 01/14/2024 6:33 AM CDT [facility] MPV 11.4(H) 6.5 - 11.0 fL 01/14/2024 6:33 AM CDT [facility] NRBC 0.0 % 01/14/2024 6:33 AM CDT [facility] ABS NRBC 0.0 thou /cu mm 01/14/2024 6:33 AM CDT [facility] Blood BLOOD SPECIMEN / Unknown Non-Lab Venipuncture / Unknown 01/14/2024 5:28 AM CDT 01/14/2024 6:31 AM CDT Barbara Holcomb NP HEMATOLOGY Performing Organization Address City/[facility] Co de Phone Number [facility] [address] [place] [address], [place] * (ABNORMAL) CALCIUM IONIZED HOSPITAL DRAW ONLY (01/14/2024 5:28 AM CDT) Only the most recent of3 resultswithin the time period is included. CALCIUM,IONIZE D 1.30(H) 1.15 - 1.27 mmol/L 01/14/2024 6:03 AM CDT [facility] Blood BLOOD SPECIMEN / Unknown Non-Lab Venipuncture / Unknown 01/14/2024 5:28 AM CDT 01/14/2024 5:49 AM CDT Grace Eldridge MD CHEMISTRY Performing Organization Address City/[facility]/ZIP Co de Phone Number [facility] [address] [place] [address], [place] * ECHO TTE COMPLETE W CONTRAST (01/13/2024 3:56 PM CDT) AORTIC VALVE MEAN PG 7 mmHg EJECTION FRACTION 64 % LVEDD 4.1 cm EJECTION FRACTION 60 - 65% Anatomical Region Laterality Modality Ultrasound 01/13/2024 2:53 PM CDT Narrative 01/13/2024 4:39 PM CDT ECHOCARDIOGRAM MIKAYLA KUHN ? Accession#: ?? [id number] : ?1960 63 years Study Date: ?? 01/13/2024 2:53:14 PM Gender: F ?BP: ? 114/44 mmHg Height: 152.00 cm ?BSA: ?1.93 m? ? ? Weight: 98.00 kg ? Tech: ? KBA ? Referring MD: BARBARA HOLCOMB Site: ? [facility] Reading Location: [facility] Patient Location: Inpatient. Procedure: 2D w/ Contrast, [...] documentation: 2 ml diluted Definity, lot #[id number], [facility]# [id number] was administered peripherally to enhance visualization of all left ventricular segments. . This study was interpreted by an [facility] accredited facility. ??Final ?? Procedure Note Travon Blood MD - 01/13/2024 ECHOCARDIOGRAM MIKAYLA KUHN : 1960 63 years Study Date: 01/13/2024 2:53:14 PM Gender: F BP: 114/44 mmHg Height: 152.00 cm BSA: 1.93 m? ? ? Weight: 98.00 kg Tech: PASQUALE Referring MD: BARBARA HOLCOMB Site: [facility] Reading Location: [facility] Patient Location: Inpatient. Procedure: 2D w/ Contrast, [...] documentation: 2 ml diluted Definity, lot #[id number], [facility]#[id number] was administered peripherally to enhance visualization of allleft ventricular segments. . This study was interpreted by an [facility] accredited facility. Final Barbara Michelle Holcomb SPOT CLEANER ECHO ORD * US ARTERIAL LOWER EXTREMITY [...] 125 mmHg Left Brachial: 111 mmHg Right EMAIL MARKETING ASSISTANT: Noncompressible Right DPA: 115 mmHg (SAMUEL 0.92) Left EMAIL MARKETING ASSISTANT: Noncompressible Left DPA: Noncompressible SAMUEL: 1.0-1.4 - normal 0.9-0.99 - borderline 0.80-0.89 - mild 0.50-0.79 - moderate 0.30-0.49 - severe < 0.30 - critical RIGHT: DECK OFFICER PROX: 204 cm/sec; triphasic waveforms DECK OFFICER DIST: 138 cm/sec; triphasic waveforms PFA: 97 cm/sec; triphasic waveforms SFA PROX: 140, 111 cm/sec; triphasic waveforms SFA MID: 113, 74 cm/sec; triphasic waveforms SFA DIST: 107, 113 cm/sec; triphasic waveforms POP PROX: 105 cm/sec; triphasic waveforms POP DIST: 89 cm/sec; triphasic waveforms EMAIL MARKETING ASSISTANT: 32 cm/sec; triphasic waveforms KAITLYN: 58 cm/sec; triphasic waveforms DPA: 56 cm/sec; triphasic waveforms LEFT: DECK OFFICER PROX: 193 cm/sec; triphasic waveforms DECK OFFICER DIST: 152 cm/sec; triphasic waveforms PFA: 98 cm/sec; triphasic waveforms SFA PROX: 119, 109 cm/sec; triphasic waveforms SFA MID: 103, 102 cm/sec; triphasic waveforms SFA DIST: 103, 100 cm/sec; triphasic waveforms POP PROX: 124 cm/sec; triphasic waveforms POP DIST: 85 cm/sec; triphasic waveforms EMAIL MARKETING ASSISTANT: 169 cm/sec; triphasic waveforms KAITLYN: 91 cm/sec; [...] 125 mmHg Left Brachial: 111 mmHg Right EMAIL MARKETING ASSISTANT: Noncompressible Right DPA: 115 mmHg (SAMUEL 0.92) Left EMAIL MARKETING ASSISTANT: Noncompressible Left DPA: Noncompressible SAMUEL: 1.0-1.4 - normal 0.9-0.99 - borderline 0.80-0.89 - mild 0.50-0.79 - moderate 0.30-0.49 - severe < 0.30 - critical RIGHT: DECK OFFICER PROX: 204 cm/sec; triphasic waveforms DECK OFFICER DIST: 138 cm/sec; triphasic waveforms PFA: 97 cm/sec; triphasic waveforms SFA PROX: 140, 111 cm/sec; triphasic waveforms SFA MID: 113, 74 cm/sec; triphasic waveforms SFA DIST: 107, 113 cm/sec; triphasic waveforms POP PROX: 105 cm/sec; triphasic waveforms POP DIST: 89 cm/sec; triphasic waveforms EMAIL MARKETING ASSISTANT: 32 cm/sec; triphasic waveforms KAITLYN: 58 cm/sec; triphasic waveforms DPA: 56 cm/sec; triphasic waveforms LEFT: DECK OFFICER PROX: 193 cm/sec; triphasic waveforms DECK OFFICER DIST: 152 cm/sec; triphasic waveforms PFA: 98 cm/sec; triphasic waveforms SFA PROX: 119, 109 cm/sec; triphasic waveforms SFA MID: 103, 102 cm/sec; triphasic waveforms SFA DIST: 103, 100 cm/sec; triphasic waveforms POP PROX: 124 cm/sec; triphasic waveforms POP DIST: 85 cm/sec; triphasic waveforms EMAIL MARKETING ASSISTANT: 169 cm/sec; triphasic waveforms KAITLYN: 91 cm/sec; [...] 01/14/2024 4:57:16 PM (Electronically Signed) Freya Schafer SPOT CLEANER US * US RENAL AND BLADDER COMPLETE [...] 01/14/2024 2:34:58 AM (Electronically Signed) Barbara Holcomb NP US * XR FOOT 3 VIEWS LEFT [...] CDT) CULTURE RESULT(A) 01/16/2024 2:44 PM CDT [facility] CULTURE 3+ Corynebacterium striatum 01/16/2024 2:44 PM CDT [facility] CULTURE 2+ Mixed oni present 01/16/2024 2:44 PM CDT [facility] GRAM STAIN No PMNs 01/16/2024 2:44 PM CDT [facility] GRAM STAIN 2+ RBCs 01/16/2024 2:44 PM CDT [facility] GRAM STAIN No Epithelial cells 01/15 2:44 PM CDT [facility] GRAM STAIN 2+ Gram Positive Bacilli 01/16/2024 2:44 PM CDT [facility] Other (Other) Non-Blood / Unknown 01/13/2024 11:49 AM CDT 01/13/2024 12:00 PM CDT Narrative [facility] - 01/16/2024 2:44 PM CDT Mixed oni; No Staphylococcus aureus, beta-Streptococcus, Streptococcus pneumoniae, or Pseudomonas aeruginosa isolated. Freya Schafer NP MICROBIOLOGY Performing Organization Address [facility]/ZIP Co de Phone Number [facility] [address] [place] [address], * ANAEROBIC CULTURE (01/13/2024 11:49 AM CDT) CULTURE No anaerobes isolated 01/19/2024 10:01 AM CDT [facility] Other (Other) Non-Blood / Unknown 01/13/2024 11:49 AM CDT 01/13/2024 12:00 PM CDT Freya Schafer NP MICROBIOLOGY Performing Organization Address [facility] Co de Phone Number [facility] [address] [place] [address], * (ABNORMAL) Electrolytes Panel - DKA (01/13/2024 10:53 AM CDT) Only the most recent of3 resultswithin the time period is included. SODIUM 140 136 - 145 mmol/L 01/13/2024 11:36 AM CDT [facility] POTASSIUM 5.2(H) 3.5 - 5.1 mmol/L 01/13/2024 11:36 AM CDT [facility] CHLORIDE 107 98 - 107 mmol/L 01/13/2024 11:36 AM CDT [facility] CO2,TOTAL 21(L) 22 - 29 mmol/L 01/13/2024 11:36 AM CDT [facility] ANION GAP 12 5 - 18 01/13/2024 11:36 AM CDT [facility] Blood BLOOD SPECIMEN / Unknown Non-Lab Venipuncture / Unknown 01/13/2024 10:53 AM CDT 01/13/2024 11:01 AM CDT Ifeanyi Hernández RN CHEMISTRY Performing Organization Address [facility]/ZIP Co de Phone Number [facility] [address] [place] [address], * SCAN-CARDIAC STRIP (01/13/2024 8:00 AM CDT) Scanner OTHER * MAGNESIUM (01/13/2024 4:22 AM CDT) Only the most recent of2 resultswithin the time period is included. MAGNESIUM 1.9 1.6 - 2.4 mg/dL 01/13/2024 5:07 AM CDT [facility] Blood BLOOD SPECIMEN / Unknown Non-Lab Venipuncture / Unknown 01/13/2024 4:22 AM CDT 01/13/2024 4:41 AM CDT Ifeanyi Hernández RN CHEMISTRY Performing Organization Address [facility] Co de Phone Number [facility] [address] [place] [address], * (ABNORMAL) Serum Glucose - DKA (01/13/2024 1:52 AM CDT) Only the most recent of2 resultswithin the time period is included. GLUCOSE,RANDOM 459(H) 70 - 139 mg/dL 01/13/2024 2:46 AM CDT [facility] Blood BLOOD SPECIMEN / Unknown Non-Lab Venipuncture / Unknown 01/13/2024 1:52 AM CDT 01/13/2024 2:03 AM CDT Emily Guzman MD CHEMISTRY Performing Organization Address [facility] Co de Phone Number [facility] [address] [place] [address], * (ABNORMAL) TROPONIN T (HS) ONE TIME (01/12/2024 11:39 PM CDT) Pathologist [facility] TROPONIN T HS 45(H) 6-10 ng/L ng/L 01/13/2024 12:22 AM CDT [facility] Blood BLOOD SPECIMEN / Unknown Non-Lab Venipuncture / Unknown 01/12/2024 11:39 PM CDT 01/12/2024 11:45 PM CDT Emily Guzman MD CHEMISTRY Performing Organization Address City/[facility]/ZIP Co de Phone Number [facility] [address] [place] [address], [place] * 12 Lead EKG (01/12/2024 10:16 PM CDT) Pathologist [facility] Interpretation Normal sinus rhythm Left axis deviation Abnormal ECG When compared with ECG of 02-Jan-2019 02:01, Nonspecific T wave abnormality now evident in Lateral leads BEYOND NOW Ventricular Rate 78 BPM BEYOND NOW Atrial Rate 78 BPM BEYOND NOW P-R Interval 160 ms BEYOND NOW QRS Duration 82 ms BEYOND NOW QT 400 ms BEYOND NOW QTc 456 ms BEYOND NOW P [place] 72 degrees BEYOND NOW R [place] -31 degrees BEYOND NOW T [place] 69 degrees BEYOND NOW 01/12/2024 10:1 6 PM CDT 01/13/2024 8:20 PM CDT Emily Guzman MD EKG ORD Performing Organization Address [facility] Co de Phone Number [place], [place] * MRSA/SA PCR (01/12/2024 10:07 PM CDT) Pathologist [facility] MRSA DNA PCR Negative Negative 01/12/2024 11:33 PM CDT [facility] STAPHYLOCOCCUS AUREUS PCR Negative Negative 01/12/2024 11:33 PM CDT [facility] Other SPECIMEN FROM INTERNAL NOSE / Unknown Non-Blood / Unknown 01/12/2024 10:07 PM CDT 01/12/2024 10:13 PM CDT Narrative [facility] - 01/12/2024 11:33 PM CDT Test result does not preclude MRSA or SA nasal colonization. Chaparro Sneed DO MICROBIOLOGY [facility] [address] [place] [address], * (ABNORMAL) Urine Culture (01/12/2024 10:07 PM CDT) CULTURE RESULT(A) 01/16/2024 6:58 AM CDT [facility] CULTURE 10,000-50,000 CFU/mL Proteus mirabilis 01/16/2024 6:58 AM CDT [facility] CULTURE 50,000-100,000 CFU/mL Danita albicans 01/16/2024 6:58 AM CDT [facility] Urine URINE SPECIMEN / Unknown Non-Blood / Unknown 01/12/2024 10:07 PM CDT 01/12/2024 10:13 PM CDT Narrative Organism Antibiotic Method Susceptibility Proteus mirabilis TRIMETHOPRIM/SULF <=07/22: S Proteus mirabilis AMPICILLIN <=2: S Proteus [...] 128: R Emily Guzman MD MICROBIOL OGY [facility] [address] * Blood Culture (01/12/2024 9:40 PM CDT) Only the most recent of2 resultswithin the time period is included. Pathologist [facility] CULTURE No Growth. 01/16/2024 11:23 PM CDT [facility] Blood BLOOD SPECIMEN / Unknown Venipuncture / Unknown 01/12/2024 9:40 PM CDT 01/12/2024 9:52 PM CDT Narrative [facility] - 01/16/2024 11:23 PM CDT Low volume blood culture received; possible false negative culture. Emily Guzman MD MICROBIOL OGY Performing Organization Address City/[facility] Co de Phone Number [facility] [address] * (ABNORMAL) TROPONIN T(HS) ACUTE W/2HR REFLEX (01/12/2024 9:37 PM CDT) TROPONIN T HS 47(H) 6-10 ng/L ng/L 01/12/2024 10:16 PM CDT [facility] Blood BLOOD SPECIMEN / Unknown Non-Lab Venipuncture / Unknown 01/12/2024 9:37 PM CDT 01/12/2024 9:46 PM CDT Narrative [facility] - 01/12/2024 10:16 PM CDT [...] department patient population. Emily Guzman MD [facility]Y [facility] [address] [place] [address], * (ABNORMAL) CBC WITH AUTO DIFFERENTIAL (01/12/2024 9:37 PM CDT) [facility] WHITE BLOOD COUNT 14.9(H) 4.5 - 11.0 thou/cu mm 01/12/2024 9:54 PM CDT [facility] RED BLOOD COUNT 3.61(L) 4.00 - 5.20 mil/cu mm 01/12/2024 9:54 PM CDT [facility] HEMOGLOBIN 10.5(L) 12.0 - 16.0 g/dL 01/12/2024 9:54 PM CDT [facility] HEMATOCRIT 32.6(L) 33.0 - 51.0 % 01/12/2024 9:54 PM CDT [facility] MCV 90 80 - 100 fL 01/12/2024 9:54 PM CDT [facility] MCH 29.1 26.0 - 34.0 pg 01/12/2024 9:54 PM CDT [facility] MCHC 32.2 32.0 - 36.0 g/dL 01/12/2024 9:54 PM CDT [facility] RDW 13.2 11.5 - 15.5 % 01/12/2024 9:54 PM CDT [facility] PLATELET COUNT 273 140 - 440 thou/cu mm 01/12/2024 9:54 PM CDT [facility] MPV 11.0 6.5 - 11.0 fL 01/12/2024 9:54 PM CDT [facility] NRBC 0.0 % 01/12/2024 9:54 PM CDT [facility] ABS NRBC 0.0 thou /cu mm 01/12/2024 9:54 PM CDT [facility] % NEUT 80.3 % 01/12/2024 9:54 PM CDT [facility] % LYMPH 9.6 % 01/12/2024 9:54 PM CDT [facility] % MONO 9.2 % 01/12/2024 9:54 PM CDT [facility] % EOS 0.1 % 01/12/2024 9:54 PM CDT [facility] % BASO 0.1 % 01/12/2024 9:54 PM CDT [facility] % IMMATURE GRAN (METAS,MYELOS,AZ OS) 0.7 % 01/12/2024 9:54 PM CDT [facility] ABSOLUTE NEUTROPHILS 12.0(H) 1.7 - 7.0 thou/cu mm 01/12/2024 9:54 PM CDT [facility] ABSOLUTE LYMPHOCYTES 1.4 0.9 - 2.9 thou/cu mm 01/12/2024 9:54 PM CDT [facility] ABSOLUTE MONOCYTES 1.4(H) <0.9 thou/cu mm 01/12/2024 9:54 PM CDT [facility] ABSOLUTE EOSINOPHILS 0.0 <0.5 thou/cu mm 01/12/2024 9:54 PM CDT [facility] ABSOLUTE BASOPHILS 0.0 <0.3 thou/cu mm 01/12/2024 9:54 PM CDT [facility] ABSOLUTE IMMATURE GRANULOCYTES(MET ,MYELOS,PROS) 0.1 <0.3 thou/cu mm 01/12/2024 9:54 PM CDT [facility] Blood BLOOD SPECIMEN / Unknown Non-Lab Venipuncture / Unknown 01/12/2024 9:37 PM CDT 01/12/2024 9:46 PM CDT Emily Guzman MD HEMATOLOG Y [facility] [address] [place] [address], * (ABNORMAL) BLOOD GAS,VENOUS (01/12/2024 9:37 PM CDT) PH, VENOUS 7.25(L) 7.32 - 7.43 01/12/2024 9:52 PM CDT [facility] PCO2, VENOUS 44 41 - 51 mmHg 01/12/2024 9:52 PM CDT [facility] PO2, VENOUS 48(H) 35 - 40 mmHg 01/12/2024 9:52 PM CDT [facility] HCO3,VENOUS 19(L) 22 - 29 mmol/L 01/12/2024 9:52 PM CDT [facility] BASE EXCESS, VENOUS, POCT -7.7(L) -2.0 - 3.0 01/12/2024 9:52 PM CDT [facility] O2 SATURATION, VENOUS 85(H) 70 - 75 % 01/12/2024 9:52 PM CDT [facility] INSPIRED O2 21 01/12/2024 9:52 PM CDT [facility] Comment:Unit of Measure: Lit ers (L) if <=20; Percent (%) if >20 PATIENT TEMPERATURE 36.9 Degrees C 01/12/2024 9:52 PM CDT [facility] Blood VENOUS BLOOD SPECIMEN / Unknown Non-Lab Venipuncture / Unknown 01/12/2024 9:37 PM CDT 01/12/2024 9:46 PM CDT Emily Guzman MD CHEMISTRY Performing Organization Address [facility]/State/ZIP Co de Phone Number [facility] [address] [place] [address], * Protime - INR (01/12/2024 9:37 PM CDT) INR 1.0 <1.3 01/12/2024 9:56 PM CDT [facility] PROTIME 11.5 10.3 - 12.3 sec 01/12/2024 9:56 PM CDT [facility] Blood BLOOD SPECIMEN / Unknown Non-Lab Venipuncture / Unknown 01/12/2024 9:37 PM CDT 01/12/2024 9:46 PM CDT Narrative [facility] - 01/12/2024 9:56 PM CDT [...] Guzman MD HEMATOLOG Y Performing Organization Address City/[facility] Co de Phone Number [facility] [address] [place] [address], * (ABNORMAL) HEMOGLOBIN A1C MONITORING (POCT) (01/12/2024 9:37 PM CDT) Only the most recent of2 resultswithin the time period is included. [facility] HEMOGLOBIN A1C MONITORING (POCT) 9.3(H) <=6.4 % 01/14/2024 10:29 AM CDT [facility] Blood BLOOD SPECIMEN / Unknown Non-Lab Venipuncture / Unknown 01/12/2024 9:37 PM CDT 01/12/2024 9:46 PM CDT Narrative [facility] - 01/14/2024 10:29 AM CDT ? (<=6.9%) [...] Barbara Holcomb NP CHEMISTRY Performing Organization Address [facility]/ZIP Co de Phone Number [facility] [address] [place] [address], * (ABNORMAL) Hepatic Function Panel (01/12/2024 9:37 PM CDT) [facility] ALBUMIN 3.2(L) 4.0 - 4.9 g/dL 01/12/2024 10:16 PM CDT [facility] PROTEIN,TOTAL 6.4 6.0 - 8.0 g/dL 01/12/2024 10:16 PM CDT [facility] BILIRUBIN,TOTAL 0.2 0.0 - 1.2 mg/dL 01/12/2024 10:16 PM CDT [facility] BILIRUBIN,DIRECT <0.2 0.0 - 0.3 mg/dL 01/12/2024 10:16 PM CDT [facility] BILIRUBIN,INDIRE CT 01/12/2024 10:16 PM CDT [facility] Comment:Unable to calculate, Direct Bili <0.2 ALK PHOSPHATASE 122(H) 35 - 104 IU/L 01/12/2024 10:16 PM CDT [facility] ALT (SGPT) 21 10 - 35 IU/L 01/12/2024 10:16 PM CDT [facility] AST (SGOT) 20 10 - 35 IU/L 01/12/2024 10:16 PM CDT [facility] Blood BLOOD SPECIMEN / Unknown Non-Lab Venipuncture / Unknown 01/12/2024 9:37 PM CDT 01/12/2024 9:46 PM CDT Emily Guzman MD [facility]STRY [facility] [address] [place] [id number], * SCAN-CARDIAC STRIP (01/12/2024 9:20 PM CDT) [...] health care provider. XR MAMMO BILAT SCREENING [[id number]] CLINICAL HISTORY: ??This is an asymptomatic 61 y.o. patient. INDICATION FOR EXAM: Mammogram Screening. TECHNIQUE: CC & MLO views were obtained. ??This study was evaluated with the assistance of Computer-Aided Detection. COMPARISON FILM: Yes 03/02/18 [facility] [employer] 07/26/13 [facility] FINDINGS: ??The breasts are extremely dense, which lowers the sensitivity of mammography. There are no dominant masses, suspicious micro calcifications or areas of architectural distortion. Shania Montiel MD MAMMO * LIPID PANEL W REFLEX MEASURED LDL (04/28/2022 1:44 PM CDT) CHOLESTEROL,TOTAL 139 100 - 199 mg/dL 04/30/2022 6:25 PM CDT [facility] TRIGLYCERIDES 141 <150 mg/dL 04/30/2022 6:25 PM CDT [facility] HDL CHOLESTEROL 42 >40 mg/dL 6:25 PM CDT [facility] NON-HDL CHOLESTEROL 97 <145 mg/dl 04/30/2022 6:25 PM CDT [facility] CHOL/HDL RATIO 3.31 <4.50 04/30/2022 6:25 PM CDT [facility] LDL CHOLESTEROL 69 <=130 mg/dL 04/30/2022 6:25 PM CDT [facility] VLDL CHOLESTEROL 28 <=30 mg/dL 04/30/2022 6:25 PM CDT [facility] PROVIDER ORDERED STATUS RANDOM 04/30/2022 6:25 PM CDT [facility] Blood BLOOD SPECIMEN / Unknown Venipuncture / Unknown 04/28/2022 1:44 PM CDT 04/28/2022 1:45 PM CDT Shania Montiel MD CHEMISTRY Performing Organization Address [facility]/ZIP Co de Phone Number [facility] [address] [place] [address], [place] * FECAL DNA (AKA COLOGUARD) (11/10/2021 1:00 PM CDT) Shania Montiel MD COMMUNICATION ORD * ANTI HCV [97613.2] (02/16/2018 4:20 PM CDT) [facility] HEPATITIS C ANTIBODY Non-React alex Non-React alex 02/17/2018 2:48 PM CDT [facility] Comment:Antibodies to HCV no t detected; does not exclude the possibility of exposure to HCV. Blood BLOOD SPECIMEN / Unknown Butterfly / Unknown 02/16/2018 4:20 PM CDT 02/16/2018 4:20 PM CDT Coleman Plata MD SEND OUTS Performing Organization Address [facility] Co de Phone Number [facility] [address] [place] [address], [place] * HIV 1&2 TODAY (07/21/2015 9:40 AM TRAIN STATION AGENT) [facility] HIV-1/HIV-2 ANTIBODY Non-Reacti ve Non-Reacti ve 07/21/2015 10:31 AM TRAIN STATION AGENT [facility] Blood specimen (specimen) BLOOD SPECIMEN / Unknown Venipuncture / Unknown 07/21/2015 9:40 AM TRAIN STATION AGENT 07/21/2015 9:47 AM TRAIN STATION AGENT Narrative [facility] - 07/21/2015 10:31 AM TRAIN STATION AGENT HIV-1 p24 and HIV-1/HIV-2 Ab not detected Kait Morales DO SEND OUTS Performing Organization Address City/[facility]/ZIP Co de Phone Number [facility] [address] [place] [address], [place] * WARP DYEING TENDER THIN PREP PAP SCREEN IMAGED (08/17/2012 4:02 PM TRAIN STATION AGENT) CYTOLOGY CYTOPATHOLOGY REPORT [facility] Status: Final Status ?[id number] CLINICAL INFORMATION Last Date of LMP ? :07/03/2012 Last Pap Date ?:02/01/2011 Last Pap Result ?:NIL ABN [place]/Bx Past 5 YRS :None Hormone Usage ?:BCP/OCP/Patch/R ing Menstrual Status ? :Regular Periods [place]/Bx done today ? :No Additional Information :None given HPV Request ?:HPV if ASCUS SPECIMEN SOURCE ?:Cervical/vagina l ThinPrep Vial, screening SPECIMEN ADEQUACY ?:Satisfactory for evaluation No endocervical ? component seen. INTERPRETATION/RES ULT Negative for intraepithelial lesion or malignancy (NIL) Cytology 1st Screener ??:cam Signed by ?:cam This specimen was screened by the FDA approved [employer] System and manually reviewed. NOTE: ??The [...] COLLECTED:08/17/12 ? ACCESSIONED: ??08/18/12 ?? SIGNED: ??08/21/12 [facility] PAP [place] CODE NIL [facility] Tissue specimen (specimen) (Cervical/Vagina l) 08/17/2012 4:02 PM TRAIN STATION AGENT 08/17/2012 4:00 PM TRAIN STATION AGENT Coleman Plata MD PATHOLOGY/CYTOLOGY [facility] INTERNAL ZIP [id number] [place] [address] from Last 3 Months or Most Recently [...] Urine earlier this year (per report from [facility], not available in CareEverywhere), 04/19/18 L cheek abscess exclusions for contact precaution discontinuation (if > 12 months since positive culture): resides in acute/care home care, receiving hemodialysis, has chronic open wounds/skin [...] 8:01 PM 07/15/2012 6:55 PM Care Teams Training Professional Relationship Specialty Start Date End Date Barbara [place] [address] PCP - General Family Practice 11/15/22 Julio Ibrahim MD [address] [place] [address] [id number] Surgery - Orthopedics 02/01/11 Chuy Doss MD [address] [place] [address] [phone] Surgery - Vascular 02/01/11 Markel Strong MD [address] [place] [address] Provider Family Practice 08/08/20 Nikolai Ibarra MD [address] [facility] [address] [place] [address] Endocrinology 09/07/22 [facility] [place] [address] [place] [address] 01/17/24 Suad Ng/ [employer] CM Electrical Estimator 07/14/17 [facility] Home Health Nurse 07/01/17 [facility] RATOPRINTER Services Home Health Aide 07/14/17 [facility] Presto Log Operator/ Ally Christianson [address] [place] [address] Electrical Estimator 07/07/17
--- OUTSIDE RECORDS SUMMARY | 2024-01-23 13:40 | XMS_ITS | Encounter Summary ---
Author Organization [facility] Address [address] [place] [address] Care Team Providers Care Shade Maker Name Role Phone Barbara Valentin DO Primary Care Provider Kevin zepeda Encounter Details Date Type Department Care Team (Late st Contact Info) Description 09/22/2023 Documentation Only [facility] [place] [address] [facility] [address] [place] [phone] No, Pcp Social History Tobacco Use Types [...] AM EDT Office Visit [facility] [address] [place] [phone] Sandy Jimenez, INDUSTRIAL PSYCHOLOGY TEACHER-SPECIAL ORDER JEWELER [address] [place] [phone] documented as of this encounter Visit Diagnoses Not on filedocumented in this encounter Care Teams Shade Maker Relationship Specialty Start Date End Date Barbara Valentin DO [address] [place] [address] PCP - General Family Medicine 09/22/23 documented as of this encounter
--- OUTSIDE RECORDS SUMMARY | 2024-01-23 13:40 | XMS_ITS | Encounter Summary ---
Author Organization [facility] Address [address] [place] [address] Care Team Providers Care Financial Consultant Name Role Phone Barbara Valentin DO Primary Care Provider Kevin zepeda Reason for Visit * Reason Comments CKD New Patient * Nephrology Services (Urgent) - Closed Specialty Diagnoses / Procedures Referred By Contac t Referred To Contact Nephrology Diagnoses Chronic kidney disease stage 4 (HCC) Barbara Valentin DO [address] [place] [address] Elian Humphrey MD [address] [place] [address] Referral ID Status Reason Start Date Expiration Date Visits Re quested Visits Authorized [id number] Closed 09/22/2023 09/21/2024 1 1 Encounter Details Date Type Department Care Team (Latest Contact Info) Description 11/10/2023 3:30 PM EDT Office Visit [facility] [address] [place] [address] Gabriel Hicks MD [address] [place] [address] Chronic kidney disease, stage 4 [...] Hicks/RAFAEL Acosta Welcome to [facility] Although we are experts in the [...] in caring for renal patients. If your Accountant Systems deems it appropriate, you will be scheduled [...] healthy, so we do have a Renal Commercial Painter to help you with this. We encourage [...] let them know that you see a faculty administrator for your kidney disease. Ask that they contact your faculty administrator before this type of test is scheduled. [...] Doctors, Advanced Practice Providers, nurses, and Renal Commercial Painter are here to provide you with the best renal care. We want you to feel free to call us when you have questions or concerns. To call the nurse at your faculty administrator's office, please see the address and telephone number listed on your After Visit Summary. Thank you, The Physicians and staff at [facility] UNDERSTANDING YOUR BLOOD PRESSURE & LAB [...] Mikayla Kuhn Date of : 1960 Chart: [id number] PCP: Barbara Valentin DO Referring Provider: Barbara [...] her close friend who also is her LOOPING MACHINE OPERATOR. No recent illnesses or hospitalizations. Tolerating her [...] 05/12/2024). Gabriel Hicks MD [facility] The following portions of the patient's chart [...] MG/DOSE powder Yuni Olea MD Inhale 1 [place] into affected nostril(s) each time if needed [...] [place] [address] [place] [phone] Sandy Jimenez, INVESTIGATION LIEUTENANT-FARO DEALER [address] [place] [phone] Scheduled Orders Name Type Priority Associated Diagnoses [...] disease documented in this encounter Care Teams Financial Consultant Relationship Specialty Start Date End Date Barbara Valentin DO [address] [address] PCP - General Family Medicine 09/22/23 documented as of this encounter
--- OUTSIDE RECORDS SUMMARY | 2024-01-23 13:40 | XMS_ITS | Encounter Summary ---
Author Organization [facility] Address [address] [place] [address] Care Team Providers Care Soldering Machine Operator Automatic Name Role Phone Barbara Valentin DO Primary Care Provider Kevin zepeda Encounter Details Date Type Department Care Team (Late st Contact Info) Description 09/23/2023 Office Communication [facility] [place] [address] [place] [address] Barbara Valentin DO [address] [place] [address] Social History Tobacco Use Types Packs/Day Years [...] EDT Office Visit [facility] [place] [address] [place] [phone] Sandy Jimenez, BULKER-DEWATERER OPERATOR [address] [place] [phone] documented as of this encounter Visit Diagnoses Not on filedocumented in this encounter Care Teams Soldering Machine Operator Automatic Relationship Specialty Start Date End Date Barbara [place] [address] PCP - General Family Medicine 09/22/23 documented as of this encounter
== END 2024-01-22 00:36 | disposition home or self-care (01) ==
LOC: AMB 01-23 13:38
PROVIDERS: PCP Family Medicine; Visit Provider Family Medicine
DX: R53.1 Weakness (principal)
CPT/HCPCS: A0998

== ENCOUNTER 2024-01-26 15:10 | Outpatient (CLI) | payer OTHER, SELFPAY ==
--- OUTSIDE RECORDS SUMMARY | 2024-01-26 15:11 | XMS_ITS | Encounter Summary ---
Author Organization [facility] Address [address] [place] [address] Care Team Providers Care Registered Nurse Cardiac Name Role Phone Barbara Valentin DO Primary Care Provider Kevin zepeda Reason for Visit * Reason Comments CKD New Patient * Nephrology Services (Urgent) - Closed Specialty Diagnoses / Procedures Referred By Contac t Referred To Contact Nephrology Diagnoses Chronic kidney disease stage 4 (HCC) Barbara Valentin DO [address] [place] [address] Elian Humphrey MD [address] [place] [address] Referral ID Status Reason Start Date Expiration Date Visits Re quested Visits Authorized [id number] Closed 09/22/2023 09/21/2024 1 1 Encounter Details Date Type Department Care Team (Latest Contact Info) Description 11/10/2023 3:30 PM EDT Office Visit [facility] [address] [place] [address] Gabriel Hicks MD [address] [place] [address] Chronic kidney disease, stage 4 [...] in caring for renal patients. If your Supervisor Sandblaster deems it appropriate, you will be scheduled [...] healthy, so we do have a Renal Finance Lead to help you with this. We encourage [...] let them know that you see a polisher eyeglass frames for your kidney disease. Ask that they contact your polisher eyeglass frames before this type of test is scheduled. [...] Doctors, Advanced Practice Providers, nurses, and Renal Finance Lead are here to provide you with the best renal care. We want you to feel free to call us when you have questions or concerns. To call the nurse at your polisher eyeglass frames's office, please see the address and telephone [...] Mikayla Kuhn Date of : 1960 Chart: [id number] PCP: Barbara Valentin DO Referring Provider: Barbara Vlaentin Date of Service: 11/10/2023 Chief Complaint: I [...] her close friend who also is her VIROLOGY TEACHER. No recent illnesses or hospitalizations. Tolerating her [...] MG/DOSE powder Yuni Olea MD Inhale 1 [place] into affected nostril(s) each time if needed [...] [place] [address] [place] [phone] Sandy Jimenez, MEDICAL CLERK-CHICK SEXER [address] [place] [phone] Scheduled Orders Name Type Priority Associated Diagnoses [...] disease documented in this encounter Care Teams Registered Nurse Cardiac Relationship Specialty Start Date End Date Barbara Valentin [place] [address] PCP - General Family Medicine 09/22/23 documented as of this encounter
--- OUTSIDE RECORDS SUMMARY | 2024-01-26 15:11 | XMS_ITS | Encounter Summary ---
Author Organization [facility] Address [address] [place] [address] Care Team Providers Care Presto Log Operator Name Role Phone Barbara Valentin DO Primary Care Provider Kevin zepeda Encounter Details Date Type Department Care Team (Late st Contact Info) Description 09/23/2023 Office Communication [facility] [place] [address] [place] [address] Barbara Valentin DO [address] [place] [address] Social History Tobacco Use Types Packs/Day Years [...] EDT Office Visit [facility] [place] [address] [place] [phone] Sandy Jimenez, PELLET PREPARATION OPERATOR-REEFER 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 [address] [place] [phone] documented as of this encounter Visit Diagnoses Not on filedocumented in this encounter Care Teams Presto Log Operator Relationship Specialty Start Date End Date Barbara [place] [address] [place] [address] PCP - General Family Medicine 09/22/23 documented as of this encounter
--- OUTSIDE RECORDS SUMMARY | 2024-01-26 15:11 | XMS_ITS | Encounter Summary ---
Author Organization [facility] Address [address] [place] [address] Care Team Providers Care Pattern Gater Name Role Phone Barbara Valentin Primary Care Provider Keivn zepeda Encounter Details Date Type Department Care Team (Late st Contact Info) Description 01/23/2024 Office Communication [facility] [place] [address] [place] [address] Ronnell Kirby [address] [place] [address] Social History Tobacco Use [...] AM EDT Office Visit [facility] [place] [address] [place] [phone] Sandy Jimenez, WHIPPED TOPPING MIXER-ROAD PATCHER [address] [place] [phone] documented as of this encounter Visit Diagnoses Not on filedocumented in this encounter Care Teams Pattern Gater Relationship Specialty Start Date End Date Barbara Valentin DO [address] [place] [address] PCP - General Family Medicine 09/22/23 documented as of this encounter
--- OUTSIDE RECORDS SUMMARY | 2024-01-26 15:11 | XMS_ITS | Encounter Summary ---
Author Organization [facility] Address [address] [place] [address] Care Team Providers Care Cooker Mechanic Name Role Phone Barbara Valentin Primary Care Provider Kevin zepeda Encounter Details Date Type Department Care Team (Late st Contact Info) Description 01/23/2024 Documentation Only [facility] [address] [place] [address] Ronnell Kirby [address] [place] [address] Social History Tobacco Use Types Packs/Day [...] AM EDT Office Visit [facility] [place] [address] [place] [phone] Sandy Jimenez, VICE PRESIDENT QUALITY ASSURANCE-SOLUTION COORDINATOR [address] [place] [phone] documented as of this encounter Procedures Procedure [...] ORDERAB LES Performing Organization Address [facility] Co de Phone Number [facility] * (ABNORMAL) Creatine (01/16/2024) Creatine, Serum 1.28(H) [facility] GFR Calculated 47(L) [facility] Blood (Blood, Venous) 01/16/2024 Historical Provider MD LAB BLOOD ORDERAB LES Performing Organization Address [facility] de Phone Number [facility] * (ABNORMAL) Creatine (01/15/2024) Creatine, Serum 1.71(H) [facility] GFR Calculated 34(L) [facility] Blood (Blood, Venous) 01/15/2024 Historical Provider MD LAB BLOOD ORDERAB LES Performing Organization Address [facility] Co de Phone Number [facility] * (ABNORMAL) Hemoglobin (01/15/2024) Hemoglobin 8.4(L) g/dL [facility] MCV 91.0 [facility] Blood (Blood, Venous) 01/15/2024 Historical Provider MD LAB BLOOD ORDERAB LES Performing Organization Address [facility] Co de Phone Number [facility] [...] ORDERAB LES Performing Organization Address [facility]/ZIP Co de Phone Number [facility] * (ABNORMAL) CBC (01/14/2024) WBC 8.5 K/uL [facility] Red Blood Cell Count 3.04(L) [facility] Hemoglobin 8.9(L) g/dL [facility] Hematocrit 27.5(L) % [facility] MCV 91 [facility] MCH 29.3 [facility] MCHC 32.4 [facility] RDW 14.4 [facility] Platelet Count 198 [facility] MPV 11.4(H) [facility] Blood (Blood, Venous) 01/14/2024 Historical Provider MD LAB BLOOD ORDERAB LES Performing Organization Address [facility] Co de Phone Number [facility] [...] ORDERAB LES Performing Organization Address [facility] Co de Phone Number [facility] [...] on filedocumented in this encounter Care Teams Cooker Mechanic Relationship Specialty Start Date End Date Barbara Valentin DO [address] [place] [address] PCP - General Family Medicine 09/22/23 documented as of this encounter
--- OUTSIDE RECORDS SUMMARY | 2024-01-26 15:11 | XMS_ITS | Clinical Summary ---
Author Organization [facility] Address [address] [facility] [place] [address] Phone Care Team Providers Care Electrolysis Needle Operator Name Role Phone Sir Valentinesteban Gomez DO [...] One Pack) 3 MG/DOSE powder Inhale 1 [place] into affected nostril(s) each time if needed [...] Description 01/23/2024 Documentation Only [facility] [place] [address] [place] [address] Ronnell Kirby 01/23/2024 Office Communication [facility] [place] [address] [place] [address] Ronnell Kirby 11/10/2023 3:30 PM EDT Office Visit [facility] [place] [address] [address] Gabriel Hicks MD Chronic kidney disease, stage 4 (severe) (HCC) (Primary Dx); 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); Chronic diastolic congestive heart failure (HCC); Secondary hyperparathyroidism of renal origin (HCC); Anemia in chronic kidney disease 11/10/2023 Documentation Only [facility] [place] [address] Dave Hurst from Last 3 Months Immunizations [...] AM EDT Office Visit [facility] [place] [address] [facility] [address] [place] [phone] Sandy Jimenez, DESKTOP SUPPORT SPECIALIST-GENERATOR REBUILDER [address] [facility] [address] [place] [phone] Health Maintenance Due Date Last Done Comments [...] LAB BLOOD ORDERAB LES Performing Organization Address City/[facility] Co de Phone Number [facility] * (ABNORMAL) Creatine (01/17/2024) Only the most recent of3 resultswithin the time period is included. Creatine, Serum 1.28(H) [facility] GFR Calculated 47(L) [facility] Blood (Blood, Venous) 01/17/2024 Historical Provider MD LAB BLOOD ORDERAB LES Performing Organization Address [facility] Co de Phone Number [facility] * (ABNORMAL) Hemoglobin (01/15/2024) Hemoglobin 8.4(L) g/dL [facility] MCV 91.0 [facility] Blood (Blood, Venous) 01/15/2024 Historical Provider MD LAB BLOOD ORDERAB LES Performing Organization Address [facility] Co de Phone Number [facility] [...] LAB BLOOD ORDERAB LES Performing Organization Address [facility] Co de Phone Number [facility] from Last 3 Months Care Teams Electrolysis Needle Operator Relationship Specialty Start Date End Date Barbara Valentin DO [address] [place] [address] PCP - General Family Medicine 09/22/23
--- OUTSIDE RECORDS SUMMARY | 2024-01-26 15:11 | XMS_ITS | Encounter Summary ---
Author Organization [facility] Address [address] [place] [address] Care Team Providers Care Public Administration Professor Name Role Phone Barbara Valentin Primary Care Provider Kevin zepeda Encounter Details Date Type Department Care Team (Late st Contact Info) Description 11/10/2023 Documentation Only [facility] [place] [address] Dave Hurst [address] [facility] [address] [place] [address] Social History Tobacco Use Types [...] EDT Office Visit [facility] [address] [place] [address] Sandy Jimenez, FLIGHT MECHANIC-EVP SALES [address] [place] [address] documented as of this encounter [...] LAB BLOOD ORDERAB LES Performing Organization Address City/State/[facility] Co de Phone Number [facility] [...] on filedocumented in this encounter Care Teams Public Administration Professor Relationship Specialty Start Date End Date Barbara Valentin DO [address] [place] [address] PCP - General Family Medicine 09/22/23 documented as of this encounter
--- OUTSIDE RECORDS SUMMARY | 2024-01-26 15:11 | XMS_ITS | Encounter Summary ---
Author Organization [facility] Address [address] [place] [address] Care Team Providers Care Restaurant Crew Person Name Role Phone Barbara Valentin DO Primary Care Provider Kevin zepeda Encounter Details Date Type Department Care Team (Late st Contact Info) Description 09/22/2023 Documentation Only [facility] [place] [address] [facility] [address] [place] [phone] No, Pcp Social History Tobacco Use Types [...] Visit [facility] [place] [address] [place] [phone] Sandy Jimenez, INFANTRY INDIRECT FIRE CREWMEMBER-PROPERTY SUPERVISOR [address] [place] [phone] documented as of this encounter Visit Diagnoses Not on filedocumented in this encounter Care Teams Restaurant Crew Person Relationship Specialty Start Date End Date Barbara Valentin DO [address] [place] [address] PCP - General Family Medicine 09/22/23 documented as of this encounter
--- OUTSIDE RECORDS SUMMARY | 2024-01-26 15:12 | XMS_ITS | Clinical Summary ---
Author Organization [facility] s & [facility] Address [place], [place] [address] Care Team Providers Care Lift Truck Operator Name Role Phone Julio Ibrahim MD Unavailable [phone] Chuy Doss MD Unavailable Markel Strong MD Unavailable Nikolai Ibarra MD Unavailable [phone] Barbara Valentin DO Primary Care Provider [phone] [facility] [place] Unavailable Allergies Active Allergy Reactions Criticality Noted [...] mellitus at risk of hypoglycemia Inhale 1 Dawson into affected nostril(s) each time if needed for Severe Hypoglycemia. Roll on side and call 911 after administration. 2 Each 12/25/19 22 Active fluticasone (50 mcg per actuation) nasal solution (FLONASE)Indicatio ns:Nasal congestion Inhale 1 Dawson into affected nostril(s) once daily. Inhale 1 Dawson in the nostril(s) once daily. 16 g [...] 04/20/20 23 Active continuous glucose monitor READER (SoundSenasation Elli 2 [place])Indications :Type 1 diabetes mellitus with other specified complication (HC) To be used to read blood sugars per home school liaison officer's directions. 1 Each 05/19/20 23 Active blood-glucose [...] be used to read blood sugars per home school liaison officer's directions. 6 Each 3 09/06/19 24 Active [...] history (E-cancel not sent)) blood sugar diagnostic (Charge Master Analyst Express Test Strip) stripIndications:U ncontrolled type 1 [...] substance agreement signed - 10/07/23 10/07/2023 Overview: [facility] Noemí Dennis .................... 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) use of anticoagulants 11/27/2013 12/28/2013 Anticoagulation [...] Encounters Date Type Department Care Team Description 01/25/2024 1:30 PM CDT Home Care Visit [facility] [address] [place] [address] Coleman Greene, PT PT - HOME VISIT 01/25/2024 Travel 01/24/2024 1:00 PM CDT Home Care Visit [facility] [address] [place] [address] Dar Phillips OT OT - INITIAL ASSESSMENT 01/24/2024 9:30 AM CDT Home Care Visit [facility] [address] [place] [address] Fabiola Mathis PHYSICS TECHNICAL OFFICER - HOME VISIT 01/24/2024 Home Care Visit [facility] [address] [place] [address] Narcisa Atkinson, RN CARE COORDINATION 01/23/2024 Home Care Visit [facility] [address] [place] [address] Narcisa Atkinson, RN CARE COORDINATION 01/20/2024 Refill [facility] [address] [place] [address] Toshia Hooks NP Refill Request 01/18/2024 1:45 PM CDT Home Care Visit [facility] [address] [place] [address] Kendal Serna, PT PT - OASIS START OF CARE 01/18/2024 10:30 AM CDT Phone Office Visit [facility] [address] [place] [address] Nikolia Ibarra MD 01/18/2024 Plan of Care Documentation [facility] [address] [place] [address] 01/18/2024 Patient Outreach [facility] [address] [place] [address] Maria R Ho, RN Primary RN Care Management; Hospital F/U (Lace 44) 01/18/2024 Travel 01/12/2024 9:13 PM CDT - 01/17/2024 5:23 PM CDT Hospital Encounter [facility] [address] [place] [address] Emily Guzman MD Litell, DO Chente Honeycutt, MD Dusty Manjarrez, MD Ricky Alston, Helder Hoover MD [facility], [facility] Hospitalists Of Opioid dependence, uncomplicated (HC) (Primary Dx); Nasal congestion; Chronic pain syndrome; Diabetic ketoacidosis without coma associated with type 1 diabetes mellitus (HC); 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, macular edema presence unspecified, unspecified laterality, unspecified proliferative retinopathy type (HC); Heel ulcer, right, with unspecified severity (HC) Discharge Disposition: Home Health 01/09/2024 Refill [facility] [address] [place] [address] Barbara Valentin Patricia, DO Refill Request (Fluoxetine) 01/09/2024 Refill [facility] [address] [place] [address] Elian Humphrey MD Refill Request (Torsemide) 01/06/2024 4:00 PM CDT Office Visit [facility] [address] [place] [address] Toshia Hooks NP Follow Up; Pain (Multi source; was told by her Computer Systems Technology Instructor she can ot use OTC Voltaren gel., which had been helping her O.A. pain (hands; wrists; shoulders; ) ) 01/06/2024 Travel 01/02/2024 Telephone [facility] [address] [place] [address] Barbara Valentin Patricia, DO Follow Up 12/27/2023 Refill [facility] [address] [place] [address] Barbara Valentin Patricia, DO Refill Request (Pregabalin, Cetirizine) 12/23/2023 2:35 PM CDT Office Visit [facility] [address] [place] [address] Barbara Valentin, DO Diabetes (3 month check, labs); Rash (Rash under breasts? ) 12/23/2023 Travel 12/20/2023 Refill [facility] [address] [place] [address] Barbara Valentin Patricia, DO Refill Request (Humalog Kwikpen Insulin) 12/16/2023 Refill [facility] [address] [place] [address] Toshia Hooks NP Refill Request (Patient son called requesting oxycodone 5 mg at [facility].////) 12/15/2023 Telephone [facility] [address] [place] [address] Saúlqra Barbara Patricia, DO Lab 12/08/2023 Refill [facility] [address] [place] [address] Shaqra, Barbara Patricia, DO Refill Request (Ulticare Pen Needle, Per-fit Underwear) 12/07/2023 Refill [facility] [address] [place] [address] Shaqra, Barbara Patricia, DO Refill Request (Ulticare Pen Needle) 11/29/2023 Telephone [facility] [address] [place] [address] Shaqra, Barbara Patricia, DO Referral 11/29/[address] [address] Saúlqra, Barbara Patricia, DO Refill Request (Cholecalciferol) 11/18/2023 Refill [facility] [address] [place] [address] Toshia Hooks NP Refill Request (oxycodone 5 mg at [facility]) 11/17/2023 Telephone [facility] [address] [place] [address] Saúlqra Barbara Patricia, DO Questions (Vish rod R.N. shelter case manager with [facility] care has some questions for pcp) 11/15/2023 Refill [facility] [address] [place] [address] Shaqra, Barbara Patricia, DO Refill Request (Levothyroxine, Fluoxetine) 11/11/2023 Telephone [facility] [address] [place] [address] Shaqra, Barbara Patricia, DO questions and concerns (vish jennings R.N. called in with questions and concerns for PCP) from Last 3 Months Immunizations Name Administration Dates Next Due AMB Influenza, IIV3 (Age >=3 years)(Flu Clinic Only) 05/17/2013,05/06/2010 COVID-19 vaccine (Eventap-Bio NTech 30mcg/0.3mL) 12YO+ BIVALENT PF, MDV 04/28/2022 [...] Sign Reading Time Taken Comments Blood Pressure 108/64 01/25/2024 2:14 PM CDT Pulse 74 01/25/2024 2:14 PM CDT Temperature 36.7 ??C (98.1 ??F) 01/25/2024 2:14 PM CD T Respiratory Rate 16 01/25/2024 2:14 PM CDT Oxygen Saturation 92% 01/25/2024 2:14 PM CDT Inhaled Oxygen Concentration - - Weight 102.3 kg (225 lb 9.6 oz) 01/16/2024 6:48 AM CDT Height 152.4 cm (5') 01/12/2024 9:27 PM CDT Body Mass Index 44.06 01/12/2024 9:27 PM CDT Plan of Treatment Upcoming Encounters Date Type Department Care Team (Late st Contact Info) Description 01/27/2024 11:30 AM CDT Home Care Visit [facility] [address] [place] [address] Fabiola Mathis [address] [place] [address] 01/30/2024 3:00 AM CDT Home Care Visit [facility] [address] [place] [address] Coleman Greene, PT [address] [place] [address] 01/30/2024 4:00 AM CDT Home Care Visit [address] [address] 01/31/2024 9:30 AM CDT Home Care Visit [address] [address] Fabiola Mathis [address] [place] [address] 02/01/2024 3:00 AM CDT Home Care Visit [address] [address] Coleman Greene, PT [address] [place] [address] 02/01/2024 11:00 AM CDT Office Visit [facility] [address] [place] [address] Barbara Valentin, DO [address] [place] [address] 02/03/2024 11:30 AM CDT Home Care Visit [address] [address] Fabiola Mathis [address] [place] [address] 02/06/2024 3:00 AM CDT Home Care Visit [address] [address] Coleman Greene, PT [address] [place] [address] 02/07/2024 9:30 AM CDT Home Care Visit [address] [place] [address] Fabiola Mathis [address] [place] [address] 02/10/2024 11:30 AM CDT Home Care Visit [address] [address] Fabiola Mathis [address] [place] [address] 02/13/2024 3:00 AM CDT Home Care Visit [address] [address] Coleman Greene, PT [address] [place] [address] 02/14/2024 9:30 AM CDT Home Care Visit [address] [address] Fabiola Mathis [address] [place] [address] 02/17/2024 11:30 AM CDT Home Care Visit [address] [address] Fabiola Mathis [address] [place] [address] 03/26/2024 3:25 PM CDT Office Visit [facility] [address] [place] [address] Barbara Valentin DO [address] [place] [address] 05/04/2024 3:30 PM CDT Phone Office Visit [facility] [address] [facility] [address] [place] [address] Nikolai Ibarra MD [address] [facility] [address] [place] [address] Health Maintenance Due Date Last Done Comments [...] 03/18/2020, Additional history exists Fecal testing sDNA-FIT ([place] guard) for age 45-75 11/10/2024 11/10/2021 Pneumococcal series for age 6-64 (3 of 3 - PPSV23 or PCV20) 2026 08/17/2016, 08/14/2014, 07/04/2005, Additional history exists Lipids for age 45-75 04/28/2027 04/28/2022, 08/17/2019, 08/31/2018, Additional history exists Tdap Completed 08/25/2010 HIV for age 15-65 Completed 07/21/2015 Hepatitis C screening for ag e 18-79 Completed 02/16/2018 Medical Devices Implanted Type Area Shop Director Device Identifier Shelf Expiration Date Model / Serial / Lot [id number] 2x12mm [[id number]] Implanted:Qty: 1 on 08/08/2008 at [facility] Explanted:at [facility] (Quantity not on file) Stomach [employer] [id number]# / [id number] / Stem Compnt Primary 8mm Mini - [id number] Implanted:Qty: 1 on 03/17/2011 at [facility] Right: Shoulder BIOMET [id number]# / / [id number] Head Hum Bio-Mod [id number] - [id number] Implanted:Qty: 1 on 03/17/2011 at [facility] Right: Shoulder BIOMET [id number]# / / [id number] Base Glenoid Hybrid 4mm Sm - [id number] Implanted:Qty: 1 on 03/17/2011 at [facility] Right: Shoulder BIOMET [id number]# / / [id number] Cmnt 1/2 Dosehowmedica - [id number] Implanted:Qty: 1 on 03/17/2011 at [facility] Right: Shoulder [employer] 6188-- 0# / / [id number] Post Glenoid Hybrid Regenerex - [id number] Implanted:Qty: 1 on 03/17/2011 at [facility] Right: Shoulder BIOMET [id number] # / / [id number] Head Humeral 44x15 Co Cr Biomodular - [id number] Implanted:Qty: 1 on 07/12/2012 at [facility] Left: Shoulder BIOMET [id number]# / / [id number] Shoulder Stem Implanted:Qty: 1 on 07/12/2012 at [facility] Left: Shoulder [id number] / / [id number] Description:SHOULDER STEM Cmnt Bone 1/2 Dosehowmedica - [id number] Implanted:Qty: 1 on 07/12/2012 at [facility] Left: Shoulder [employer] 6188-- 0# / / [id number] Post Glenoid Hybrid Regenerex - [id number] Implanted:Qty: 1 on 07/12/2012 at [facility] Left: Shoulder BIOMET [id number] # / / [id number] Base Glenoid Hybrid 4mm Sm - [id number] Implanted:Qty: 1 on 07/12/2012 at [facility] Left: Shoulder BIOMET [id number]# / / [id number] Procedures Procedure Name Priority Date/Time Associated Diagnosis [...] HIV 1/2 Add On 07/21/2015 9:40 AM DISTRICT SALES REPRESENTATIVE LOAN REPRESENTATIVE THIN PREP PAP SCREEN IMAGED Routine 08/17/2012 4:02 PM DISTRICT SALES REPRESENTATIVE Screening for malignant neoplasm of the cervix [...] - 100 mg/dL 01/17/2024 11:35 AM CDT [facility] Blood BLOOD SPECIMEN / Unknown 01/17/2024 11:27 AM CDT 01/17/2024 11:35 AM CDT Helder García MD CHEMISTRY Performing Organization Address [facility] Co de Phone Number [facility]StrongLoopTG [facility] LAB[facility] [address] [place] [address], * (ABNORMAL) CREATININE (01/17/2024 8:20 AM CDT) Only the most recent of3 resultswithin the time period is included. eGFR 47(L) >90 mL/min/1.7 3m2 01/17/2024 9:06 AM CDT [facility]ENTERVirtual Psychology SystemsWV[facility]ED[facility] Comment:As of 2021, eG FR is calculated by the CKD-EPI creatinine equation without race adjustment. ??eGFR can be influenced by muscle mass, exercise, and diet. ??The reported eGFR is an estimation only and is only applicable if the renal function is stable. CREATININE 1.28(H) 0.50 - 0.90 mg/dL 01/17/2024 9:06 AM CDT [facility] Blood BLOOD SPECIMEN / Unknown Non-Lab Venipuncture / Unknown 01/17/2024 8:20 AM CDT 01/17/2024 8:26 AM CDT Helder García MD CHEMISTRY Performing Organization Address City/[facility]/ZIP Co de Phone Number [facility]StrongLoopWE[facility] [address] [place] [address], [place] * PHOSPHORUS (01/17/2024 8:20 AM CDT) Only the most recent of5 resultswithin the time period is included. PHOSPHORUS 2.6 2.5 - 4.5 mg/dL 01/17/2024 9:06 AM CDT [facility] Blood BLOOD SPECIMEN / Unknown Non-Lab Venipuncture / Unknown 01/17/2024 8:20 AM CDT 01/17/2024 8:26 AM CDT Sarah Betancourt RN CHEMISTRY [facility] [address] [place] [address], * (ABNORMAL) BASIC METABOLIC PANEL (01/17/2024 8:20 AM CDT) Only the most recent of5 resultswithin the time period is included. SODIUM 139 136 - 145 mmol/L 01/17/2024 12:35 PM CDT [facility] TRAL LABORATORY POTASSIUM 3.9 3.5 - 5.1 mmol/L 01/17/2024 12:35 PM T [facility] TRAL LABORATORY CHLORIDE 103 98 - 107 mmol/L 01/17/2024 12:35 PM CDT [facility] TR[facility] LAB[facility] CO2,TOTAL 24 22 - 29 mmol/L 01/17/2024 12:35 PM T [facility] TRAL LAB[facility] ANION GAP 12 5 - 18 01/17/2024 12:35 PM T [facility] TRAL LAB[facility] GLUCOSE 162(H) 70 - 99 mg/dL 01/17/2024 12:35 PM T [facility] TRAL LAB[facility] CALCIUM 8.7(L) 8.8 - 10.2 mg/dL 01/17/2024 12:35 PM T [facility] TR[facility] LAB[facility] BUN 17 8 - 23 mg/dL 01/17/2024 12:35 PM T [facility] TR[facility] LAB[facility] CREATININE 1.31(H) 0.50 - 0.90 mg/dL 01/17/2024 12:35 PM CDT [facility] TRAL LAB[facility] BUN/CREAT RATIO 13 10 - 20 4 12:35 PM CDT [facility] LAB[facility] eGFR 46(L) >90 mL/min/1.7 3m2 01/17/2024 12:35 PM CDT [facility] TR[facility] LAB[facility] Comment: As of 2021, eGFR [...] 8:26 AM CDT Helder García MD CHEMISTRY [facility] [address] * CLOSTRIDIOIDES DIFFICILE TOXIN PCR (01/16/2024 12:27 PM CDT) CLOSTRIDIUM DIFFICILE PCR Negative 01/16/2024 2:18 PM CDT [facility] PRESUMPTIVE NAP1 STRAIN Negative 01/16/2024 2:18 PM CDT [facility] Stool STOOL SPECIMEN / Unknown Non-Blood / Unknown 01/16/2024 12:27 PM CDT 01/16/2024 12:51 PM CDT Narrative [facility] - 01/16/2024 2:18 PM CDT The NAP1 (027 or BI) strain is a hypervirulent strain. Detection may be useful for epidemiological purposes. Helder García MD MICROBIOLOGY [facility] [address] [place] [address], * SCAN CORRESP-EKG RESULTS (01/16/2024 9:07 AM CDT) Narrative 01/16/2024 9:07 AM CDT Ordered by an unspecified provider. Other Clinical Staff OTHER * (ABNORMAL) HEMOGLOBIN (01/16/2024 6:30 AM CDT) Only the most recent of2 resultswithin the time period is included. HEMOGLOBIN 8.9(L) 12.0 - 16.0 g/dL 01/16/2024 7:13 AM CDT [facility] MCV 91 80 - 100 fL 01/16/2024 7:13 AM CDT [facility] Blood BLOOD SPECIMEN / Unknown Venipuncture / Unknown 01/16/2024 6:30 AM CDT 01/16/2024 6:58 AM CDT Fabrizio Montano MD HEMATOLOGY Performing Organization Address City/[facility]/ZIP Co de Phone Number [facility] [address] [place] [address], * VANCOMYCIN (01/16/2024 6:30 AM CDT) Only the most recent of3 resultswithin the time period is included. VANCOMYCIN 13.0 ug/mL 01/16/2024 7:42 AM CDT [facility] TRAL LABORATORY Comment:No Reference Range D efined. DATE OF LAST DOSE,RANDOM Not Given 01/16/2024 7:42 AM CDT [facility] TRAL LABORATORY TIME OF LAST DOSE,RANDOM Not Given 01/16/2024 7:42 AM CDT [facility] TRA LABORATORY Blood BLOOD SPECIMEN / Unknown Venipuncture / Unknown 01/16/2024 6:30 AM CDT 01/16/2024 6:58 AM CDT Barbara Holcomb NP CHEMISTRY [facility] [address] [place] [address], [place] * (ABNORMAL) PLATELET COUNT (01/15/2024 6:02 AM CDT) PLATELET COUNT 166 140 - 440 thou/cu mm 01/15/2024 6:44 AM CDT [facility] TRAL LABOR[facility] MPV 11.2(H) 6.5 - 11.0 fL 01/15/2024 6:44 AM CDT [facility] TR[facility] Blood BLOOD SPECIMEN / Unknown Venipuncture / Unknown 01/15/2024 6:02 AM CDT 01/15/2024 6:26 AM CDT Fabrizio Montano MD HEMATOLOGY Performing Organization Address City/[facility] Co de Phone Number [facility] [address] [place] [address], [place] * WHITE BLOOD COUNT (01/15/2024 6:02 AM CDT) WHITE BLOOD COUNT 4.9 4.5 - 11.0 thou/cu mm 01/15/2024 6:44 AM CDT [facility] NRBC 0.0 % 01/15/2024 6:44 AM CDT [facility] ABS NRBC 0.0 thou /cu mm 01/15/2024 6:44 AM CDT [facility] Blood BLOOD SPECIMEN / Unknown Venipuncture / Unknown 01/15/2024 6:02 AM CDT 01/15/2024 6:26 AM CDT Fabrizio Montano MD HEMATOLOGY Performing Organization Address City/[facility]/ZIP Co de Phone Number [facility] [address] [place] [address], [place] * Sodium AM (01/15/2024 6:02 AM CDT) SODIUM 142 136 - 145 mmol/L 01/15/2024 7:13 AM CDT [facility] Blood BLOOD SPECIMEN / Unknown Venipuncture / Unknown 01/15/2024 6:02 AM CDT 01/15/2024 6:27 AM CDT Fabrizio Montano MD CHEMISTRY Performing Organization Address City/[facility]/ZIP Co de Phone Number [facility] [address] [place] [address], * Potassium AM (01/15/2024 6:02 AM CDT) Only the most recent of3 resultswithin the time period is included. POTASSIUM 4.4 3.5 - 5.1 mmol/L 01/15/2024 7:13 AM CDT [facility] Blood BLOOD SPECIMEN / Unknown Venipuncture / Unknown 01/15/2024 6:02 AM CDT 01/15/2024 6:27 AM CDT Fabrizio Montano MD CHEMISTRY Performing Organization Address [facility] Co de Phone Number [facility] [address] [place] [address], * SCAN-CARDIAC STRIP (01/14/2024 7:07 AM CDT) Scanner OTHER * (ABNORMAL) CBC W PLT NO DIFF (01/14/2024 5:28 AM CDT) WHITE BLOOD COUNT 8.5 4.5 - 11.0 thou/cu mm 01/14/2024 6:33 AM CDT [facility] TRAL LABORAT[facility] RED BLOOD COUNT 3.04(L) 4.00 - 5.20 mil/cu mm 01/14/2024 6:33 AM CDT [facility] TRAL LABORAT[facility] HEMOGLOBIN 8.9(L) 12.0 - 16.0 g/dL 01/14/2024 6:33 AM CDT [facility] TRAL LABOR[facility] HEMATOCRIT 27.5(L) 33.0 - 51.0 % 01/14/2024 6:33 AM CDT [facility] TR[facility] LAB[facility] MCV 91 80 - 100 fL 01/14/2024 6:33 AM CDT [facility] MCH 29.3 26.0 - 34.0 pg 01/14/2024 6:33 AM CDT [facility] MCHC 32.4 32.0 - 36.0 g/dL 01/14/2024 6:33 AM CDT [facility] RDW 14.4 11.5 - 15.5 % 01/14/2024 6:33 AM CDT [facility] PLATELET COUNT 198 140 - 440 thou/cu mm 01/14/2024 6:33 AM CDT [facility] MPV 11.4(H) 6.5 - 11.0 fL 01/14/2024 6:33 AM CDT [facility] NRBC 0.0 % 01/14/2024 6:33 AM CDT [facility] ABS NRBC 0.0 thou /cu mm 01/14/2024 6:33 AM CDT [facility] Blood BLOOD SPECIMEN / Unknown Non-Lab Venipuncture / Unknown 01/14/2024 5:28 AM CDT 01/14/2024 6:31 AM CDT Barbara Michelle Holcomb NP HEMATOLOGY [facility] [address] [address], * (ABNORMAL) CALCIUM IONIZED HOSPITAL DRAW ONLY (01/14/2024 5:28 AM CDT) Only the most recent of3 resultswithin the time period is included. CALCIUM,IONIZE D 1.30(H) 1.15 - 1.27 mmol/L 01/14/2024 6:03 AM CDT [facility] TRAL LABOR[facility] Blood BLOOD SPECIMEN / Unknown Non-Lab Venipuncture / Unknown 01/14/2024 5:28 AM CDT 01/14/2024 5:49 AM CDT Grace Eldridge MD CHEMISTRY [facility] LAB[facility] [address] [place] [address], * ECHO TTE COMPLETE W CONTRAST (01/13/2024 3:56 PM CDT) AORTIC VALVE MEAN PG 7 mmHg EJECTION FRACTION 64 % LVEDD 4.1 cm EJECTION FRACTION 60 - 65% Anatomical Region Laterality Modality Ultrasound 01/13/2024 2:53 PM CDT Narrative 01/13/2024 4:39 PM CDT ECHOCARDIOGRAM MIKAYLA KUHN ? Accession#: ?? [id number] : ?1960 63 years Study Date: ?? 01/13/2024 2:53:14 PM Gender: F ?BP: ? 114/44 mmHg Height: 152.00 cm ?BSA: ?1.93 m? ? ? Weight: 98.00 kg ? Tech: ? KBA ? Referring MD: BARBARA HOLCOMB Site: ? [facility] Reading Location: ANW IP Patient [...] documentation: 2 ml diluted Definity, lot #[id number], [facility]# [id number] was administered peripherally to enhance visualization of all left ventricular segments. . This study was interpreted by an [facility] accredited facility. ??Final ?? Procedure Note Travon Blood MD - 01/13/2024 ECHOCARDIOGRAM MIKAYLA KUHN : 1960 63 years Study Date: 01/13/2024 2:53:14 PM Gender: F BP: 114/44 mmHg Height: 152.00 cm BSA: 1.93 m? ? ? Weight: 98.00 kg Tech: PASQUALE Referring MD: BARBARA HOLCOMB Site: [facility] Reading Location: [facility] Patient Location: Inpatient. Procedure: 2D [...] documentation: 2 ml diluted Definity, lot #[id number], [facility]#[id number] was administered peripherally to enhance visualization of allleft ventricular segments. . This study was interpreted by an [facility] accredited facility. Final Barbara Holcomb SHOP MECHANIC HELPER ECHO ORD * US ARTERIAL LOWER EXTREMITY [...] For Patients: ??As a result of the 21st Century Cures [...] 125 mmHg Left Brachial: 111 mmHg Right HOSPICE CLINICAL SUPERVISOR: Noncompressible Right DPA: 115 mmHg (SAMUEL 0.92) Left HOSPICE CLINICAL SUPERVISOR: Noncompressible Left DPA: Noncompressible SAMUEL: 1.0-1.4 - normal 0.9-0.99 - borderline 0.80-0.89 - mild 0.50-0.79 - moderate 0.30-0.49 - severe < 0.30 - critical RIGHT: BALANCE ASSEMBLER PROX: 204 cm/sec; triphasic waveforms BALANCE ASSEMBLER DIST: 138 cm/sec; triphasic waveforms PFA: 97 cm/sec; triphasic waveforms SFA PROX: 140, 111 cm/sec; triphasic waveforms SFA MID: 113, 74 cm/sec; triphasic waveforms SFA DIST: 107, 113 cm/sec; triphasic waveforms POP PROX: 105 cm/sec; triphasic waveforms POP DIST: 89 cm/sec; triphasic waveforms HOSPICE CLINICAL SUPERVISOR: 32 cm/sec; triphasic waveforms KAITLYN: 58 cm/sec; triphasic waveforms DPA: 56 cm/sec; triphasic waveforms LEFT: BALANCE ASSEMBLER PROX: 193 cm/sec; triphasic waveforms BALANCE ASSEMBLER DIST: 152 cm/sec; triphasic waveforms PFA: 98 cm/sec; triphasic waveforms SFA PROX: 119, 109 cm/sec; triphasic waveforms SFA MID: 103, 102 cm/sec; triphasic waveforms SFA DIST: 103, 100 cm/sec; triphasic waveforms POP PROX: 124 cm/sec; triphasic waveforms POP DIST: 85 cm/sec; triphasic waveforms HOSPICE CLINICAL SUPERVISOR: 169 cm/sec; triphasic waveforms KAITLYN: 91 cm/sec; [...] 125 mmHg Left Brachial: 111 mmHg Right HOSPICE CLINICAL SUPERVISOR: Noncompressible Right DPA: 115 mmHg (SAMUEL 0.92) Left HOSPICE CLINICAL SUPERVISOR: Noncompressible Left DPA: Noncompressible SAMUEL: 1.0-1.4 - normal 0.9-0.99 - borderline 0.80-0.89 - mild 0.50-0.79 - moderate 0.30-0.49 - severe < 0.30 - critical RIGHT: BALANCE ASSEMBLER PROX: 204 cm/sec; triphasic waveforms BALANCE ASSEMBLER DIST: 138 cm/sec; triphasic waveforms PFA: 97 cm/sec; triphasic waveforms SFA PROX: 140, 111 cm/sec; triphasic waveforms SFA MID: 113, 74 cm/sec; triphasic waveforms SFA DIST: 107, 113 cm/sec; triphasic waveforms POP PROX: 105 cm/sec; triphasic waveforms POP DIST: 89 cm/sec; triphasic waveforms HOSPICE CLINICAL SUPERVISOR: 32 cm/sec; triphasic waveforms KAITLYN: 58 cm/sec; triphasic waveforms DPA: 56 cm/sec; triphasic waveforms LEFT: BALANCE ASSEMBLER PROX: 193 cm/sec; triphasic waveforms BALANCE ASSEMBLER DIST: 152 cm/sec; triphasic waveforms PFA: 98 cm/sec; triphasic waveforms SFA PROX: 119, 109 cm/sec; triphasic waveforms SFA MID: 103, 102 cm/sec; triphasic waveforms SFA DIST: 103, 100 cm/sec; triphasic waveforms POP PROX: 124 cm/sec; triphasic waveforms POP DIST: 85 cm/sec; triphasic waveforms HOSPICE CLINICAL SUPERVISOR: 169 cm/sec; triphasic waveforms KAITLYN: 91 cm/sec; [...] 01/14/2024 4:57:16 PM (Electronically Signed) Freya Schafer SHOP MECHANIC HELPER US * US RENAL AND BLADDER COMPLETE [...] 01/14/2024 2:34:58 AM (Electronically Signed) Barbara Holcomb SHOP MECHANIC HELPER US * XR FOOT 3 VIEWS LEFT [...] CULTURE RESULT(A) 01/16/2024 2:44 PM CDT [facility] CULTURE 3+ Corynebacterium striatum 01/16/2024 2:44 PM CDT [facility] CULTURE 2+ Mixed oni present 01/16/2024 2:44 PM CDT [facility] GRAM STAIN No PMNs 01/16/2024 2:44 PM CDT [facility] GRAM STAIN 2+ RBCs 01/16/2024 2:44 PM CDT [facility] GRAM STAIN No Epithelial cells 01/15 2:44 PM CDT [facility] GRAM STAIN 2+ Gram Positive Bacilli 01/16/2024 2:44 PM CDT [facility] Other (Other) Non-Blood / Unknown 01/13/2024 11:49 AM CDT 01/13/2024 12:00 PM CDT Narrative [facility] - 01/16/2024 2:44 PM CDT Mixed oni; No Staphylococcus aureus, beta-Streptococcus, Streptococcus pneumoniae, or Pseudomonas aeruginosa isolated. Freya Schafer NP MICROBIOLOGY Performing Organization Address City/[facility]/ZIP Co de Phone Number [facility] [address] [place] [address], * ANAEROBIC CULTURE (01/13/2024 11:49 AM CDT) CULTURE No anaerobes isolated 01/19/2024 10:01 AM CDT [facility] Other (Other) Non-Blood / Unknown 01/13/2024 11:49 AM CDT 01/13/2024 12:00 PM CDT Freya Schafer NP MICROBIOLOGY Performing Organization Address [facility]/ZIP Co de Phone Number [facility] [address] [place] [address], * (ABNORMAL) Electrolytes Panel - DKA (01/13/2024 10:53 AM CDT) Only the most recent of3 resultswithin the time period is included. SODIUM 140 136 - 145 mmol/L 01/13/2024 11:36 AM CDT [facility] POTASSIUM 5.2(H) 3.5 - 5.1 mmol/L 01/13/2024 11:36 AM CDT [facility] CHLORIDE 107 98 - 107 mmol/L 01/13/2024 11:36 AM CDT [facility] CO2,TOTAL 21(L) 22 - 29 mmol/L 01/13/2024 11:36 AM CDT [facility] ANION GAP 12 5 - 18 01/13/2024 11:36 AM CDT [facility] Blood BLOOD SPECIMEN / Unknown Non-Lab Venipuncture / Unknown 01/13/2024 10:53 AM CDT 01/13/2024 11:01 AM CDT Ifeanyi Hernández RN CHEMISTRY Performing Organization Address [facility] de Phone Number [facility] [address] [place] [address], * SCAN-CARDIAC STRIP (01/13/2024 8:00 AM CDT) Scanner OTHER * MAGNESIUM (01/13/2024 4:22 AM CDT) Only the most recent of2 resultswithin the time period is included. MAGNESIUM 1.9 1.6 - 2.4 mg/dL 01/13/2024 5:07 AM CDT [facility] Blood BLOOD SPECIMEN / Unknown Non-Lab Venipuncture / Unknown 01/13/2024 4:22 AM CDT 01/13/2024 4:41 AM CDT Ifeanyi Hernández RN CHEMISTRY Performing Organization Address [facility] de Phone Number [facility] [address] [place] [address], * (ABNORMAL) Serum Glucose - DKA (01/13/2024 1:52 AM CDT) Only the most recent of2 resultswithin the time period is included. GLUCOSE,RANDOM 459(H) 70 - 139 mg/dL 01/13/2024 2:46 AM CDT [facility] Blood BLOOD SPECIMEN / Unknown Non-Lab Venipuncture / Unknown 01/13/2024 1:52 AM CDT 01/13/2024 2:03 AM CDT Emily Guzman MD CHEMISTRY [facility] [address] [place] [address], * (ABNORMAL) TROPONIN T (HS) ONE TIME (01/12/2024 11:39 PM CDT) [facility] TROPONIN T HS 45(H) 6-10 ng/L ng/L 01/13/2024 12:22 AM CDT [facility] Blood BLOOD SPECIMEN / Unknown Non-Lab Venipuncture / Unknown 01/12/2024 11:39 PM CDT 01/12/2024 11:45 PM CDT Emily Guzman MD CHEMISTRY Performing Organization Address [facility] Co de Phone Number [facility] [address] [place] [address], * 12 Lead EKG (01/12/2024 10:16 PM CDT) [facility] Interpretation Normal sinus rhythm Left axis deviation Abnormal ECG When compared with ECG of 02-Jan-2019 02:01, Nonspecific T wave abnormality now evident in Lateral leads BEYOND NOW Ventricular Rate 78 BPM BEYOND NOW Atrial Rate 78 BPM BEYOND NOW P-R Interval 160 ms BEYOND NOW QRS Duration 82 ms BEYOND NOW QT 400 ms BEYOND NOW QTc 456 ms BEYOND NOW P [place] 72 degrees BEYOND NOW R [place] -31 degrees BEYOND NOW T [place] 69 degrees BEYOND NOW 01/12/2024 10:1 6 PM CDT 01/13/2024 8:20 PM CDT Emily Guzman MD EKG ORD Performing Organization Address City/[facility]/ZIP Co de Phone Number [place] NOW [place], [place] * MRSA/SA PCR (01/12/2024 10:07 PM CDT) [facility] MRSA DNA PCR Negative Negative 01/12/2024 11:33 PM CDT [facility] STAPHYLOCOCCUS AUREUS PCR Negative Negative 01/12/2024 11:33 PM CDT [facility] Other SPECIMEN FROM INTERNAL NOSE / Unknown Non-Blood / Unknown 01/12/2024 10:07 PM CDT 01/12/2024 10:13 PM CDT Narrative [facility] - 01/12/2024 11:33 PM CDT Test result does not preclude MRSA or SA nasal colonization. Chaparro Sneed DO MICROBIOLOGY [facility] [address] [place] [address], * (ABNORMAL) Urine Culture (01/12/2024 10:07 PM CDT) CULTURE RESULT(A) 01/16/2024 6:58 AM CDT [facility] CULTURE 10,000-50,000 CFU/mL Proteus mirabilis 01/16/2024 6:58 AM CDT [facility] CULTURE 50,000-100,000 CFU/mL Danita albicans 01/16/2024 6:58 AM CDT [facility] Urine URINE SPECIMEN / Unknown [...] Guzman MD MICROBIOL OGY Performing Organization Address City/[facility] Co de Phone Number [facility] [address] [place] [address], * Blood Culture (01/12/2024 9:40 PM CDT) Only the most recent of2 resultswithin the time period is included. CULTURE No Growth. 01/16/2024 11:23 PM CDT [facility] Blood BLOOD SPECIMEN / Unknown Venipuncture / Unknown 01/12/2024 9:40 PM CDT 01/12/2024 9:[address] [facility] - 01/16/2024 11:23 PM CDT Low volume blood culture received; possible false negative culture. Emily Guzman MD MICROBIOL OGY Performing Organization Address [facility] Co de Phone Number [facility] [address] [place] [address], * (ABNORMAL) TROPONIN T(HS) ACUTE W/2HR REFLEX (01/12/2024 9:37 PM CDT) TROPONIN T HS 47(H) 6-10 ng/L ng/L 01/12/2024 10:16 PM CDT [facility] Blood BLOOD SPECIMEN / Unknown Non-Lab Venipuncture / Unknown 01/12/2024 9:37 PM CDT 01/12/2024 9:[address] [facility] - 01/12/2024 10:16 PM CDT hs-cTnT (Elecsys [...] department patient population. Emily Guzman MD CHEMISTRY [facility] [address] [place] [address], * (ABNORMAL) CBC WITH AUTO DIFFERENTIAL (01/12/2024 9:37 PM CDT) [facility] WHITE BLOOD COUNT 14.9(H) 4.5 - 11.0 thou/cu mm 01/12/2024 9:54 PM CDT [facility] RED BLOOD COUNT 3.61(L) 4.00 - 5.20 mil/cu mm 01/12/2024 9:54 PM CDT [facility] HEMOGLOBIN 10.5(L) 12.0 - 16.0 g/dL 01/12/2024 9:54 PM CDT [facility] HEMATOCRIT 32.6(L) 33.0 - 51.0 % 01/12/2024 9:54 PM CDT [facility] MCV 90 80 - 100 fL 01/12/2024 9:54 PM CDT [facility] MCH 29.1 26.0 - 34.0 pg 01/12/2024 9:54 PM CDT [facility] MCHC 32.2 32.0 - 36.0 g/dL 01/12/2024 9:54 PM CDT [facility] RDW 13.2 11.5 - 15.5 % 01/12/2024 9:54 PM CDT [facility] PLATELET COUNT 273 140 - 440 thou/cu mm 01/12/2024 9:54 PM T [facility] MPV 11.0 6.5 - 11.0 fL 01/12/2024 9:54 PM CDT [facility] NRBC 0.0 % 01/12/2024 9:54 PM CDT [facility] ABS NRBC 0.0 thou /cu mm 01/12/2024 9:54 PM CDT [facility] % NEUT 80.3 % 01/12/2024 9:54 PM CDT [facility] % LYMPH 9.6 % 01/12/2024 9:54 PM CDT [facility] % MONO 9.2 % 01/12/2024 9:54 PM CDT [facility] % EOS 0.1 % 01/12/2024 9:54 PM T [facility] % BASO 0.1 % 01/12/2024 9:54 PM CDT [facility] % IMMATURE GRAN (METAS,MYELOS,UT OS) 0.7 % 01/12/2024 9:54 PM CDT [facility] ABSOLUTE NEUTROPHILS 12.0(H) 1.7 - 7.0 thou/cu mm 01/12/2024 9:54 PM CDT [facility] ABSOLUTE LYMPHOCYTES 1.4 0.9 - 2.9 thou/cu mm 01/12/2024 9:54 PM CDT [facility] ABSOLUTE MONOCYTES 1.4(H) <0.9 thou/cu mm 01/12/2024 9:54 PM CDT [facility] ABSOLUTE EOSINOPHILS 0.0 <0.5 thou/cu mm 01/12/2024 9:54 PM CDT [facility] ABSOLUTE BASOPHILS 0.0 <0.3 thou/cu mm 01/12/2024 9:54 PM CDT [facility] ABSOLUTE IMMATURE GRANULOCYTES(MET ,MYELOS,PROS) 0.1 <0.3 thou/cu mm 01/12/2024 9:54 PM CDT [facility] Blood BLOOD SPECIMEN / Unknown Non-Lab Venipuncture / Unknown 01/12/2024 9:37 PM CDT 01/12/2024 9:46 PM CDT Emily Guzman MD HEMATOLOG Y [facility] [address] [address], * (ABNORMAL) BLOOD GAS,VENOUS (01/12/2024 9:37 PM CDT) PH, VENOUS 7.25(L) 7.32 - 7.43 01/12/2024 9:52 PM CDT [facility] PCO2, VENOUS 44 41 - 51 mmHg 01/12/2024 9:52 PM CDT [facility] PO2, VENOUS 48(H) 35 - 40 mmHg 01/12/2024 9:52 PM CDT [facility] HCO3,VENOUS 19(L) 22 - 29 mmol/L 01/12/2024 9:52 PM CDT [facility] BASE EXCESS, VENOUS, POCT -7.7(L) -2.0 - 3.0 01/12/2024 9:52 PM CDT [facility] O2 SATURATION, VENOUS 85(H) 70 - 75 % 01/12/2024 9:52 PM CDT [facility] INSPIRED O2 21 01/12/2024 9:52 PM CDT [facility] Comment:Unit of Measure: Lit ers (L) if <=20; Percent (%) if >20 PATIENT TEMPERATURE 36.9 Degrees C 01/12/2024 9:52 PM CDT [facility] Blood VENOUS BLOOD SPECIMEN / Unknown Non-Lab Venipuncture / Unknown 01/12/2024 9:37 PM CDT 01/12/2024 9:46 PM CDT Emily Guzman MD CHEMISTRY [facility] [address] [place] [address], * Protime - INR (01/12/2024 9:37 PM CDT) INR 1.0 <1.3 01/12/2024 9:56 PM CDT [facility] PROTIME 11.5 10.3 - 12.3 sec 01/12/2024 9:56 PM CDT [facility] Blood BLOOD SPECIMEN / Unknown Non-Lab Venipuncture / Unknown 01/12/2024 9:37 PM CDT 01/12/2024 9:46 PM CDT Narrative [facility] - 01/12/2024 9:56 PM CDT ?Therapeutic [...] Guzman MD HEMATOLOG Y Performing Organization Address [facility] de Phone Number [facility] [address] [place] [address], [place] * (ABNORMAL) HEMOGLOBIN A1C MONITORING (POCT) (01/12/2024 9:37 PM CDT) Only the most recent of2 resultswithin the time period is included. [facility] HEMOGLOBIN A1C MONITORING (POCT) 9.3(H) <=6.4 % 01/14/2024 10:29 AM CDT [facility] Blood BLOOD SPECIMEN / Unknown Non-Lab Venipuncture / Unknown 01/12/2024 9:37 PM CDT 01/12/2024 9:46 PM CDT Narrative [facility] - 01/14/2024 10:29 AM CDT ? [...] Barbara Holcomb NP CHEMISTRY Performing Organization Address [facility] Co de Phone Number [facility] [address] [place] [address], [place] * (ABNORMAL) Hepatic Function Panel (01/12/2024 9:37 PM CDT) ALBUMIN 3.2(L) 4.0 - 4.9 g/dL 01/12/2024 10:16 PM CDT [facility] PROTEIN,TOTAL 6.4 6.0 - 8.0 g/dL 01/12/2024 10:16 PM CDT [facility] BILIRUBIN,TOTAL 0.2 0.0 - 1.2 mg/dL 01/12/2024 10:16 PM CDT [facility] BILIRUBIN,DIRECT <0.2 0.0 - 0.3 mg/dL 01/12/2024 10:16 PM CDT [facility] BILIRUBIN,INDIRE CT 01/12/2024 10:16 PM CDT [facility] Comment:Unable to calculate, Direct Bili <0.2 ALK PHOSPHATASE 122(H) 35 - 104 IU/L 01/12/2024 10:16 PM CDT [facility] ALT (SGPT) 21 10 - 35 IU/L 01/12/2024 10:16 PM CDT [facility] AST (SGOT) 20 10 - 35 IU/L 01/12/2024 10:16 PM CDT [facility] Blood BLOOD SPECIMEN / Unknown Non-Lab Venipuncture / Unknown 01/12/2024 9:37 PM CDT 01/12/2024 9:46 PM CDT Emily Guzman MD CHEMISTRY [facility] [address] [place] [address], * SCAN-CARDIAC STRIP (01/12/2024 9:20 PM CDT) [...] health care provider. XR MAMMO BILAT SCREENING [[id number]] CLINICAL HISTORY: ??This is an asymptomatic 61 y.o. patient. INDICATION FOR EXAM: Mammogram Screening. TECHNIQUE: CC & MLO views were obtained. ??This study was evaluated with the assistance of Computer-Aided Detection. COMPARISON FILM: Yes 03/02/18 [employer] 07/26/13 [facility] [employer] FINDINGS: ??The breasts are extremely dense, which lowers the sensitivity of mammography. There are no dominant masses, suspicious micro calcifications or areas of architectural distortion. Shania Montiel MD MAMMO * LIPID PANEL W REFLEX MEASURED LDL (04/28/2022 1:44 PM CDT) CHOLESTEROL,TOTAL 139 100 - 199 mg/dL 04/30/2022 6:25 PM CDT [facility] TRIGLYCERIDES 141 <150 mg/dL 04/30/2022 6:25 PM CDT [facility] HDL CHOLESTEROL 42 >40 mg/dL 6:25 PM CDT [facility] NON-HDL CHOLESTEROL 97 <145 mg/dl 04/30/2022 6:25 PM CDT [facility] CHOL/HDL RATIO 3.31 <4.50 04/30/2022 6:25 PM CDT [facility] LDL CHOLESTEROL 69 <=130 mg/dL 04/30/2022 6:25 PM CDT [facility] VLDL CHOLESTEROL 28 <=30 mg/dL 04/30/2022 6:25 PM CDT [facility] PROVIDER ORDERED STATUS RANDOM 04/30/2022 6:25 PM CDT [facility] Blood BLOOD SPECIMEN / Unknown Venipuncture / Unknown 04/28/2022 1:44 PM CDT 04/28/2022 1:45 PM CDT Shania Montiel MD CHEMISTRY Performing Organization Address [facility]/ZIP Co de Phone Number [facility] [address] [place] [address], [place] * FECAL DNA (AKA COLOGUARD) (11/10/2021 1:00 PM CDT) Shania Montiel MD COMMUNICATION ORD * ANTI HCV [[id number]] (02/16/2018 4:20 PM CDT) HEPATITIS C ANTIBODY Non-React alex Non-React alex 02/17/2018 2:48 PM CDT [facility] Comment:Antibodies to HCV no t detected; does not exclude the possibility of exposure to HCV. Blood BLOOD SPECIMEN / Unknown Butterfly / Unknown 02/16/2018 4:20 PM CDT 02/16/2018 4:20 PM CDT Coleman Plata MD SEND OUTS Performing Organization Address [facility] Co de Phone Number [facility] [address] [place] [address], * HIV 1&2 TODAY (07/21/2015 9:40 AM DISTRICT SALES REPRESENTATIVE) HIV-1/HIV-2 ANTIBODY Non-Reacti ve Non-Reacti ve 07/21/2015 10:31 AM DISTRICT SALES REPRESENTATIVE [facility] Blood specimen (specimen) BLOOD SPECIMEN / Unknown Venipuncture / Unknown 07/21/2015 9:40 AM DISTRICT SALES REPRESENTATIVE 07/21/2015 9:47 AM DISTRICT SALES REPRESENTATIVE Narrative [facility] - 07/21/2015 10:31 AM DISTRICT SALES REPRESENTATIVE HIV-1 p24 and HIV-1/HIV-2 Ab not detected Kait Morales DO SEND OUTS [facility] [address] [place] [address], [place] * LOAN REPRESENTATIVE THIN PREP PAP SCREEN IMAGED (08/17/2012 4:02 PM DISTRICT SALES REPRESENTATIVE) CYTOLOGY CYTOPATHOLOGY REPORT [facility] Status: Final Status ?[id number] CLINICAL INFORMATION Last Date of LMP ? :07/03/2012 Last Pap Date ?:02/01/2011 Last Pap Result ?:NIL ABN Hanahan/Bx Past 5 YRS :None Hormone Usage ?:BCP/OCP/Patch/R ing Menstrual Status ? :Regular Periods Hanahan/Bx done today ? :No Additional Information :None [...] COLLECTED:08/17/12 ? ACCESSIONED: ??08/18/12 ?? SIGNED: ??08/21/12 [facility] PAP [place] CODE N[place] [facility] Tissue specimen (specimen) (Cervical/Vagina l) 08/17/2012 4:02 PM DISTRICT SALES REPRESENTATIVE 08/17/2012 4:00 PM DISTRICT SALES REPRESENTATIVE Coleman Plata MD PATHOLOGY/CYTOLOGY [facility] [place]NAL ZIP [id number] [place] [id number] from Last 3 Months or Most Recently [...] Urine earlier this year (per report from [facility], not available in CareEverywhere), 04/19/18 L cheek abscess exclusions for contact precaution discontinuation (if > 12 months since positive culture): 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 care, receiving hemodialysis, has chronic open wounds/skin [...] 8:01 PM 07/15/2012 6:55 PM Care Teams Lift Truck Operator Relationship Specialty Start Date End Date Barbara Valentin DO [address] [place] [address] PCP - General Family Practice 11/15/22 Julio Ibrahim MD [address] [place] [address] Surgery - Orthopedics 02/01/11 Chuy Doss MD [address] [place] [address] Surgery - Vascular 02/01/11 Markel Strong MD [address] [place] [address] Provider Family Practice 08/08/20 Nikolai Ibarra MD [address] [place] [address] Endocrinology 09/07/22 [facility] [address] [place] [id number] 01/17/24 Suad Ng/ [employer] Sewing Machine Repairer 07/14/17 [facility] Home Health Nurse 07/01/17 [facility] SUPERVISOR UNLOADING Services Home Health Aide 07/14/17 [facility] Practice Support Specialist/ Ally Morillom [address] [place] [address] Sewing Machine Repairer 07/07/17
== END 2024-01-26 15:11 | disposition home or self-care (01) ==
LOC: WOUND 15:10
PROVIDERS: PCP Family Medicine; Visit Provider Nurse Practitioner Family
DX: E11.621 Type 2 diabetes mellitus with foot ulcer (principal); L97.422 Non-pressure chronic ulcer of left heel and midfoot with fat layer exposed; M14.672 Charcot's joint, left ankle and foot; Z79.4 Long term (current) use of insulin
CPT/HCPCS: 15275; Q4101

== ENCOUNTER 2024-02-02 15:39 | Outpatient (CLI) | payer OTHER, SELFPAY ==
--- OUTSIDE RECORDS SUMMARY | 2024-02-02 15:44 | XMS_ITS | Clinical Summary ---
Author Organization [facility] [place] [place] Address [address] [facility] [place] [address] Phone Care Team Providers Care Cyber Analyst Name Role Phone Sir Valentinesteban Gomez DO [...] One Pack) 3 MG/DOSE powder Inhale 1 [place] into affected nostril(s) each time if needed [...] Encounters Date Type Department Care Team Description 02/01/2024 [facility] [address] [place] [id number] Gabriel Hicks MD 01/23/2024 Documentation Only [facility] [place] [address] [address] [facility] [address] [place] [id number] Ronnell Kirby 01/23/2024 Office Communication [facility] [place] [address] [address] [facility] [address] [place] [phone] Ronnell Kirby 11/10/2023 3:30 PM EDT Office Visit [facility] [place] [address] Gabriel Hicks MD Chronic kidney disease, stage 4 (severe) (HCC) (Primary Dx); 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 Creatine, Serum 1.28(H) [facility] GFR Calculated 47(L) [facility] Blood (Blood, Venous) 01/17/2024 Historical Provider MD LAB BLOOD ORDERAB LES Performing Organization Address [facility] Co de Phone Number [facility] * (ABNORMAL) Hemoglobin (01/15/2024) Hemoglobin 8.4(L) g/dL [facility] MCV 91.0 [facility] Blood (Blood, Venous) 01/15/2024 Historical Provider MD LAB BLOOD ORDERAB LES Performing Organization Address [facility] Co de Phone Number [facility] * [...] LAB BLOOD ORDERAB LES Performing Organization Address City/[facility]/ZIP Co de Phone Number [facility] from Last 3 Months Care Teams Cyber Analyst Relationship Specialty Start Date End Date Barbara Valentin DO [address] [place] [address] PCP - General Family Medicine 09/22/23
--- OUTSIDE RECORDS SUMMARY | 2024-02-02 15:44 | XMS_ITS | Encounter Summary ---
Author Organization [facility] [place] Address [address] [place] [address] Care Team Providers Care Poultry Farmer Egg Name Role Phone Barbara Valentin DO Primary Care Provider Kevin zepeda Encounter Details Date Type Department Care Team (Late st Contact Info) Description 02/01/2024 Telephone [facility] [place] [address] [place] [address] Gabriel Hicks MD [address] [place] [address] Social History Tobacco Use Types Packs/Day Years [...] * Telephone Encounter - Katie Owen - 02/01/2024 4:14 PM CDT Staff called patient to confirm with the patient that per Sage, patient would like to cancel today's HFU appointment with HEATHER Jimenez. This appointment has been canceled. Unable to LVM. Letter sent to patient. documented in this encounter Plan of Treatment Not on file documented as of this encounter Visit Diagnoses Not on filedocumented in this encounter Care Teams Poultry Farmer Egg Relationship Specialty Start Date End Date Barbara Valentin DO [address] [place] [address] PCP - General Family Medicine 09/22/23 documented as of this encounter
--- OUTSIDE RECORDS SUMMARY | 2024-02-02 15:45 | XMS_ITS | Encounter Summary ---
Author Organization [facility] [place] [place] Address [address] [place] [address] Care Team Providers Care Marine Geologist Name Role Phone Barbara Valentin DO Primary Care Provider Kevin zepeda Encounter Details Date Type Department Care Team (Late st Contact Info) Description 09/22/2023 Documentation Only [facility] [place] [address] [facility] [address] [place] [address] No, Pcp Social History Tobacco [...] on filedocumented in this encounter Care Teams Marine Geologist Relationship Specialty Start Date End Date Barbara Valentin DO [address] [place] [address] PCP - General Family Medicine 09/22/23 documented as of this encounter
--- OUTSIDE RECORDS SUMMARY | 2024-02-02 15:45 | XMS_ITS | Clinical Summary ---
Author Organization [employer] [facility] s & [facility] Address [place], [place] [address] Care Team Providers Care Health Sciences Program Coordinator Name Role Phone Julio Ibrahim MD Unavailable Chuy Doss MD Unavailable Markel Strong MD Unavailable Nikolai Ibarra MD Unavailable [phone] Barbara Valentin DO Primary Care Provider [facility] [place] Unavailable Allergies Active Allergy Reactions Criticality Noted [...] mellitus at risk of hypoglycemia Inhale 1 Geff into affected nostril(s) each time if needed for Severe Hypoglycemia. Roll on side and call 911 after administration. 2 Each 12/25/19 22 Active fluticasone (50 mcg per actuation) nasal solution (FLONASE)Indicatio ns:Nasal congestion Inhale 1 Geff into affected nostril(s) once daily. Inhale 1 Geff in the nostril(s) once daily. 16 g [...] 04/20/20 23 Active continuous glucose monitor READER (Razoom Elli 2 Hudson)Indications :Type 1 diabetes mellitus with other specified complication (HC) To be used to read blood sugars per warehouse person's directions. 1 Each 05/19/20 23 Active blood-glucose [...] be used to read blood sugars per warehouse person's directions. 6 Each 3 09/06/19 24 Active [...] history (E-cancel not sent)) blood sugar diagnostic (Refuse Collector Express Test Strip) stripIndications:U ncontrolled type 1 [...] of need: 99 1 Each 06/10/20 22 07/16/2 024 Discontinued(Ph armacist change per medication history [...] change per medication history (E-cancel not sent)) acetaminophen SR (TYLENOL ARTHRITIS) [...] (E-cancel not sent)) pregabalin (LYRICA) 100 mg capsuleIndications :Chronic pain [...] Use dates: 01/22/24-02/20/24 60 Tablet 01/19/20 24 Discontinued(Ph armacist change per medication history (E-cancel [...] substance agreement signed - 10/07/23 10/07/2023 Overview: [facility] Noemí Dennis .................... 10/07/2023 4:39 PM [...] hypoxia which led to extended stay in jail care 07/2015- 05/2017 Hospitalized with ketoacidosis 06/2017 [...] Encounters Date Type Department Care Team Description 02/02/2024 11:00 AM CDT Home Care Visit [facility] [address] [place] [address] Kendal Serna, PT PT - HOME VISIT 02/01/2024 4:00 PM CDT Home Care Visit [facility] [address] [place] [address] Joi Moreno COTA OT - HOME VISIT 01/31/2024 9:30 AM CDT Home Care Visit [facility] [address] [place] [address] Fabiola Mathis FUR MACHINE OPERATOR - HOME VISIT 01/31/2024 Home Care Visit [facility] [address] [place] [address] Oumou Burns, LOS CARE COORDINATION 01/31/2024 Home Care Visit [facility] [address] [place] [address] Oumou Burns, LOS CARE COORDINATION 01/30/2024 10:45 AM CDT Home Care Visit [facility] [address] [place] [address] Kendal Serna, PT PT - HOME VISIT 01/30/2024 9:00 AM CDT Home Care Visit [facility] [address] [place] [phone] Geneva Sanchez, RN SN - INITIAL ASSESSMENT 01/27/2024 11:30 AM CDT Home Care Visit [facility] [address] [place] [phone] Fabiola Mathis FUR MACHINE OPERATOR - MISSED VISIT 01/26/2024 5:00 PM CDT Home Care Visit [facility] [address] [place] [phone] Guillermo Boykin, PT PT - MISSED VISIT 01/25/2024 1:30 PM CDT Home Care Visit [facility] [address] [place] [phone] Coleman Greene, PT PT - HOME VISIT 01/25/2024 Travel 01/24/2024 1:00 PM CDT Home Care Visit [facility] [address] [place] [phone] Dar Phillips OT OT - INITIAL ASSESSMENT 01/24/2024 9:30 AM CDT Home Care Visit [place] [address] [place] [phone] Fabiola Mathis FUR MACHINE OPERATOR - HOME VISIT 01/24/2024 Home Care Visit [place] [address] [place] [phone] Narcisa Atkinson, RN CARE COORDINATION 01/23/2024 Home Care Visit [facility] [address] [place] [phone] Narcisa Atkinson, RN CARE COORDINATION 01/20/2024 Refill [facility] [address] [place] [address] Toshia Hooks NP Refill Request 01/18/2024 1:45 PM CDT Home Care Visit [facility] [address] [place] [phone] Kendal Serna, PT PT - OASIS START OF CARE 01/18/2024 10:30 AM CDT Phone Office Visit [facility] [address] [place] [address] Nikolai Ibarra MD 01/18/2024 Plan of Care Documentation [facility] [address] [place] [address] 01/18/2024 Patient Outreach [facility] [address] [place] [address] Maria R Ho, RN Primary RN Care Management; Hospital F/U (Lace 44) 01/18/2024 Travel 01/12/2024 9:13 PM CDT - 01/17/2024 5:23 PM CDT Hospital Encounter 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, macular edema presence unspecified, unspecified laterality, unspecified proliferative retinopathy type (HC); Heel ulcer, right, with unspecified severity (HC) Discharge Disposition: Home Health 01/09/2024 Refill [facility] [address] [place] [address] Barbara Valentin DO Refill Request (Fluoxetine) 01/09/2024 Refill [facility] [address] [place] [address] Elian Humphrey MD Refill Request (Torsemide) 01/06/2024 4:00 PM CDT Office Visit [facility] [address] [place] [address] Toshia Hooks NP Follow Up; Pain (Multi source; was told by her Consumer Lending Manager she can ot use OTC Voltaren gel., which had been helping her O.A. pain (hands; wrists; shoulders; ) ) 01/06/2024 Travel 01/02/2024 Telephone [facility] [address] [place] [address] Barbara Valentin Patricia, DO Follow Up 12/27/2023 Refill [facility] [address] [place] [address] Barbara Valentin Patricia, DO Refill Request (Pregabalin, Cetirizine) 12/23/2023 2:35 PM CDT Office Visit [address] [address] Barbara Valentin, DO Diabetes (3 month check, labs); Rash (Rash under breasts? ) 12/23/2023 Travel 12/20/[address] [address] Barbara Valentin Patricia, DO Refill Request (Humalog Kwikpen Insulin) 12/16/2023 Refill [facility] [address] [place] [address] Toshia Hooks NP Refill Request (Patient son called requesting oxycodone 5 mg at [facility].////) 12/15/[address] [address] Barbara Valentin Patricia, DO Lab 12/08/[address] [address] Sir Valentini Patricia, DO Refill Request (Ulticare Pen Needle, Per-fit Underwear) 12/07/2023 Refill [facility] [address] [place] [address] Sir Valentini Patricia, DO Refill Request (Ulticare Pen Needle) 11/29/2023 Telephone [facility] [address] [place] [address] Shaqra, Barbara Patricia, DO Referral 11/29/2023 Refill [facility] [address] [place] [address] Germanra Barbara Patricia, DO Refill Request (Cholecalciferol) 11/18/2023 Refill [facility] [address] [place] [address] Toshia Hooks, GISEL Refill Request (oxycodone 5 mg at [facility]) 11/17/2023 Telephone [facility] [address] [place] [address] Germanra Barbara Patricia, DO Questions (Vish rod R.N. top case assembler with [facility] has some questions for pcp) 11/15/2023 Refill [facility] [address] [place] [address] Germanra Barbara Patricia, DO Refill Request (Levothyroxine, Fluoxetine) 11/11/2023 Telephone [facility] [address] [place] [address] Saúlqra Barbara Patricia, DO questions and concerns (vish jennings R.N. called in with questions and concerns for PCP) from Last 3 Months Immunizations Name Administration Dates Next Due AMB Influenza, IIV3 (Age >=3 years)(Flu Clinic Only) 05/17/2013,05/06/2010 COVID-19 vaccine (Pfizer-Bio NTech 30mcg/0.3mL) 12YO+ BIVALENT PF, MDV 04/28/2022 COVID-19 vaccine ([employer]-Bio NTech 30mcg/0.3mL) PF, MDV 06/23/2021 Hepatitis B [...] Sign Reading Time Taken Comments Blood Pressure 120/60 02/02/2024 11:50 AM CDT Pulse 77 02/02/2024 11:50 AM CDT Temperature 36.2 ??C (97.2 ??F) 02/02/2024 1 1:50 AM CDT Respiratory Rate 18 02/02/2024 11:5 0 AM CDT Oxygen Saturation 91% 02/02/2024 11: 50 AM CDT Inhaled Oxygen Concentration - - Weight 102.3 kg (225 lb 9.6 oz) 01/16/2024 6:48 AM CDT Height 152.4 cm (5') 01/12/2024 9:27 PM CDT Body Mass Index 44.06 01/12/2024 9:27 PM CDT Plan of Treatment Upcoming Encounters Date Type Department Care Team (Late st Contact Info) Description 02/03/2024 7:15 AM CDT Home Care Visit [place] [address] [place] [phone] Shania Elaine RN 02/03/2024 9:00 AM CDT Home Care Visit [facility] [address] [place] [phone] Joi Moreno COTA [address] [place] [phone] 02/07/2024 9:30 AM CDT Home Care Visit [place] [address] [place] [phone] Kendal Serna, PT [address] [address] 02/08/2024 4:00 AM CDT Home Care Visit [facility] [address] [place] [phone] Joi Moreno VARELA [address] [place] [address] 02/08/2024 5:00 AM CDT Home Care Visit [facility] [address] [place] [phone] 02/10/2024 4:00 AM CDT Home Care Visit [facility] [address] [place] [phone] Joi Moreno COTA [address] [place] [address] 02/10/2024 12:45 PM CDT Home Care Visit [place] [address] [place] [phone] Fabiola Mathis [address] [place] [address] 02/15/2024 3:00 AM CDT Home Care Visit [place] [address] [place] [phone] Coleman Greene, PT [address] [place] [address] 02/15/2024 4:00 AM CDT Home Care Visit [place] [address] [place] [phone] Joi Moreno COTA [address] [place] [phone] 02/15/2024 5:00 AM CDT Home Care Visit [facility] [address] [place] [phone] 02/17/2024 12:45 PM CDT Home Care Visit [facility] [address] [place] [phone] Fabiola Mathis [address] [place] [address] 02/22/2024 4:30 AM CDT Home Care Visit [facility] [address] [place] [phone] Dar Phillips, OT [address] [place] [address] 02/22/2024 7:00 AM CDT Home Care Visit [facility] [address] [place] [address] 02/29/2024 4:00 AM CDT Home Care Visit [facility] [address] [place] [address] 03/07/2024 4:00 AM CDT Home Care Visit [facility] [address] [place] [address] 03/14/2024 4:00 AM CDT Appointment [facility] [address] [place] [address] 03/26/2024 3:25 PM CDT Office Visit [facility] [address] [place] [address] Barbara Valentin, DO [address] [place] [address] 05/04/2024 3:30 PM CDT Phone Office Visit [facility] [address] [facility] [address] [place] [address] Nikolai Ibarra MD [address] [facility] [address] [place] [address] Health Maintenance Due Date Last Done Comments [...] 03/18/2020, Additional history exists Fecal testing sDNA-FIT (Rittman guard) for age 45-75 11/10/2024 11/10/2021 Pneumococcal series for age 6-64 (3 of 3 - PPSV23 or PCV20) 2026 08/17/2016, 08/14/2014, 07/04/2005, Additional history exists Lipids for age 45-75 04/28/2027 04/28/2022, 08/17/2019, 08/31/2018, Additional history exists Tdap Completed 08/25/2010 HIV for age 15-65 Completed 07/21/2015 Hepatitis C screening for ag e 18-79 Completed 02/16/2018 Medical Devices Implanted Type Area Utilization Review Rn Device Identifier Shelf Expiration Date Model / Serial / Lot [id number] loderm 2x12mm [[id number]] Implanted:Qty: 1 on 08/08/2008 at [facility] Explanted:at [facility] (Quantity not on file) [employer] [id number]# / [id number] / Stem Compnt Primary 8mm Mini - [id number] Implanted:Qty: 1 on 03/17/2011 at [facility] Right: Shoulder BIOMET [id number]# / / [id number] Head Hum Bio-Mod 69m47l4in - [id number] Implanted:Qty: 1 on 03/17/2011 at [facility] Right: Shoulder BIOMET [id number]# / / [id number] Base Glenoid Hybrid 4mm Sm - [id number] Implanted:Qty: 1 on 03/17/2011 at [facility] Right: Shoulder BIOMET [id number]# / / [id number] Cmnt 1/2 Dose[employer]medica - [id number] Implanted:Qty: 1 on 03/17/2011 at [facility] Right: Shoulder [employer] 6188-1-01 0# / / [id number] Post Glenoid Hybrid Regenerex - [id number] Implanted:Qty: 1 on 03/17/2011 at [facility] Right: Shoulder BIOMET [id number] # / / [id number] Head Humeral 44x15 Co Cr Biomodular - [id number] Implanted:Qty: 1 on 07/12/2012 at [facility] Left: Shoulder BIOMET [id number]# / / [id number] Shoulder Stem Implanted:Qty: 1 on 07/12/2012 at [facility] Left: Shoulder [id number] / / [id number] Description:SHOULDER STEM Cmnt Bone 1/2 Dose[employer] - [id number] Implanted:Qty: 1 on 07/12/2012 at [facility] Left: Shoulder [employer] 6188-1-01 0# / / [id number] Post Glenoid Hybrid Regenerex - [id number] Implanted:Qty: 1 on 07/12/2012 at [facility] Left: Shoulder BIOMET [id number] # / / [id number] Base Glenoid Hybrid 4mm Sm - [id number] Implanted:Qty: 1 on 07/12/2012 at [facility] Left: Shoulder BIOMET [id number]# / / [id number] Procedures Procedure Name Priority Date/Time Associated Diagnosis [...] HIV 1/2 Add On 07/21/2015 9:40 AM TALENT ACQUISITION ASSOCIATE INVENTORY CONTROL SPECIALIST THIN PREP PAP SCREEN IMAGED Routine 08/17/2012 4:02 PM TALENT ACQUISITION ASSOCIATE Screening for malignant neoplasm of the cervix [...] - 100 mg/dL 01/17/2024 11:35 AM CDT [facility] Blood BLOOD SPECIMEN / Unknown 01/17/2024 11:27 AM CDT 01/17/2024 11:35 AM CDT Helder García MD CHEMISTRY [facility] [address] [place] [address], * (ABNORMAL) CREATININE (01/17/2024 8:20 AM CDT) Only the most recent of3 resultswithin the time period is included. eGFR 47(L) >90 mL/min/1.7 3m2 01/17/2024 9:06 AM CDT [facility] Comment:As of 2021, eG FR is calculated by the CKD-EPI creatinine equation without race adjustment. ??eGFR can be influenced by muscle mass, exercise, and diet. ??The reported eGFR is an estimation only and is only applicable if the renal function is stable. CREATININE 1.28(H) 0.50 - 0.90 mg/dL 01/17/2024 9:06 AM CDT [facility] Blood BLOOD SPECIMEN / Unknown Non-Lab Venipuncture / Unknown 01/17/2024 8:20 AM CDT 01/17/2024 8:26 AM CDT Helder García MD CHEMISTRY Performing Organization Address [facility] de Phone Number [facility] [address] [place] [address], * PHOSPHORUS (01/17/2024 8:20 AM CDT) Only the most recent of5 resultswithin the time period is included. PHOSPHORUS 2.6 2.5 - 4.5 mg/dL 01/17/2024 9:06 AM CDT [facility] Blood BLOOD SPECIMEN / Unknown Non-Lab Venipuncture / Unknown 01/17/2024 8:20 AM CDT 01/17/2024 8:26 AM CDT Sarah Betancourt RN CHEMISTRY Performing Organization Address [facility] Co de Phone Number [facility] [address] [place] [address], * (ABNORMAL) BASIC METABOLIC PANEL (01/17/2024 8:20 AM CDT) Only the most recent of5 resultswithin the time period is included. [facility] SODIUM 139 136 - 145 mmol/L 01/17/2024 12:35 PM T [facility] POTASSIUM 3.9 3.5 - 5.1 mmol/L 01/17/2024 12:35 PM T [facility] CHLORIDE 103 98 - 107 mmol/L 01/17/2024 12:35 PM T [facility] CO2,TOTAL 24 22 - 29 mmol/L 01/17/2024 12:35 PM T [facility] ANION GAP 12 5 - 18 01/17/2024 12:35 PM T [facility] GLUCOSE 162(H) 70 - 99 mg/dL 01/17/2024 12:35 PM T [facility] CALCIUM 8.7(L) 8.8 - 10.2 mg/dL 01/17/2024 12:35 PM T [facility] BUN 17 8 - 23 mg/dL 01/17/2024 12:35 PM [facility] CREATININE 1.31(H) 0.50 - 0.90 mg/dL 01/17/2024 12:35 PM T [facility] BUN/CREAT RATIO 13 10 - 20 4 12:35 PM [facility] eGFR 46(L) >90 mL/min/1.7 3m2 01/17/2024 12:35 PM T [facility] Comment: As of 2021, [...] Helder García MD CHEMISTRY Performing Organization Address [facility] Co de Phone Number [facility] [address] [place] [address], * CLOSTRIDIOIDES DIFFICILE TOXIN PCR (01/16/2024 12:27 PM CDT) CLOSTRIDIUM DIFFICILE PCR Negative 01/16/2024 2:18 PM CDT [facility] PRESUMPTIVE NAP1 STRAIN Negative 01/16/2024 2:18 PM CDT [facility] Stool STOOL SPECIMEN / Unknown Non-Blood / Unknown 01/16/2024 12:27 PM CDT 01/16/2024 12:51 PM CDT Narrative [facility] - 01/16/2024 2:18 PM CDT The NAP1 (027 or BI) strain is a hypervirulent strain. Detection may be useful for epidemiological purposes. Helder García MD MICROBIOLOGY Performing Organization Address [facility] Co de Phone Number [facility] [address] [place] [address], * SCAN CORRESP-EKG RESULTS (01/16/2024 9:07 AM CDT) Narrative 01/16/2024 9:07 AM CDT Ordered by an unspecified provider. Other Clinical Staff OTHER * (ABNORMAL) HEMOGLOBIN (01/16/2024 6:30 AM CDT) Only the most recent of2 resultswithin the time period is included. HEMOGLOBIN 8.9(L) 12.0 - 16.0 g/dL 01/16/2024 7:13 AM CDT [facility] MCV 91 80 - 100 fL 01/16/2024 7:13 AM CDT [facility] Blood BLOOD SPECIMEN / Unknown Venipuncture / Unknown 01/16/2024 6:30 AM CDT 01/16/2024 6:58 AM CDT Fabrizio Montano MD HEMATOLOGY Performing Organization Address [facility] Co de Phone Number [facility] [address] [place] [address], [place] * VANCOMYCIN (01/16/2024 6:30 AM CDT) Only the most recent of3 resultswithin the time period is included. VANCOMYCIN 13.0 ug/mL 01/16/2024 7:42 AM CDT [facility] [employer] Comment:No Reference Range D efined. DATE OF LAST DOSE,RANDOM Not Given 01/16/2024 7:42 AM CDT [facility] TIME OF LAST DOSE,RANDOM Not Given 01/16/2024 7:42 AM CDT [facility] Blood BLOOD SPECIMEN / Unknown Venipuncture / Unknown 01/16/2024 6:30 AM CDT 01/16/2024 6:58 AM CDT Barbara Holcomb NP CHEMISTRY Performing Organization Address [facility] de Phone Number [facility] [address] [place] [address], [place] * (ABNORMAL) PLATELET COUNT (01/15/2024 6:02 AM CDT) PLATELET COUNT 166 140 - 440 thou/cu mm 01/15/2024 6:44 AM CDT [facility] MPV 11.2(H) 6.5 - 11.0 fL 01/15/2024 6:44 AM CDT [facility] Blood BLOOD SPECIMEN / Unknown Venipuncture / Unknown 01/15/2024 6:02 AM CDT 01/15/2024 6:26 AM CDT Fabrizio Montano MD HEMATOLOGY Performing Organization Address City/[facility] Co de Phone Number [facility] [address] [place] [phone], [place] * WHITE BLOOD COUNT (01/15/2024 6:02 AM CDT) WHITE BLOOD COUNT 4.9 4.5 - 11.0 thou/cu mm 01/15/2024 6:44 AM CDT [facility] NRBC 0.0 % 01/15/2024 6:44 AM CDT [facility] ABS NRBC 0.0 thou /cu mm 01/15/2024 6:44 AM CDT [facility] Blood BLOOD SPECIMEN / Unknown Venipuncture / Unknown 01/15/2024 6:02 AM CDT 01/15/2024 6:26 AM CDT Fabrizio Montano MD HEMATOLOGY Performing Organization Address [facility] Co de Phone Number [facility] [address] [place], [place] [id number], [place] * Sodium AM (01/15/2024 6:02 AM CDT) SODIUM 142 136 - 145 mmol/L 01/15/2024 7:13 AM CDT [facility] Blood BLOOD SPECIMEN / Unknown Venipuncture / Unknown 01/15/2024 6:02 AM CDT 01/15/2024 6:27 AM CDT Fabrizio Montano MD CHEMISTRY Performing Organization Address [facility] Co de Phone Number [facility] [address] [place] [phone], [place] * Potassium AM (01/15/2024 6:02 AM CDT) Only the most recent of3 resultswithin the time period is included. POTASSIUM 4.4 3.5 - 5.1 mmol/L 01/15/2024 7:13 AM CDT [facility] Blood BLOOD SPECIMEN / Unknown Venipuncture / Unknown 01/15/2024 6:02 AM CDT 01/15/2024 6:27 AM CDT Fabrizio Montano MD [facility]STRY [facility] [address] [place] [address], [place] * SCAN-CARDIAC STRIP (01/14/2024 7:07 AM CDT) Scanner OTHER * (ABNORMAL) CBC W PLT NO DIFF (01/14/2024 5:28 AM CDT) WHITE BLOOD COUNT 8.5 4.5 - 11.0 thou/cu mm 01/14/2024 6:33 AM CDT [facility] RED BLOOD COUNT 3.04(L) 4.00 - 5.20 mil/cu mm 01/14/2024 6:33 AM CDT [facility] HEMOGLOBIN 8.9(L) 12.0 - 16.0 g/dL 01/14/2024 6:33 AM CDT [facility] HEMATOCRIT 27.5(L) 33.0 - 51.0 % 01/14/2024 6:33 AM CDT [facility] MCV 91 80 - 100 fL 01/14/2024 6:33 AM CDT [facility] MCH 29.3 26.0 - 34.0 pg 01/14/2024 6:33 AM CDT [facility] MCHC 32.4 32.0 - 36.0 g/dL 01/14/2024 6:33 AM CDT [facility] RDW 14.4 11.5 - 15.5 % 01/14/2024 6:33 AM CDT [facility] PLATELET COUNT 198 140 - 440 thou/cu mm 01/14/2024 6:33 AM CDT [facility] MPV 11.4(H) 6.5 - 11.0 fL 01/14/2024 6:33 AM CDT [facility] NRBC 0.0 % 01/14/2024 6:33 AM CDT [facility] ABS NRBC 0.0 thou /cu mm 01/14/2024 6:33 AM CDT [facility] Blood BLOOD SPECIMEN / Unknown Non-Lab Venipuncture / Unknown 01/14/2024 5:28 AM CDT 01/14/2024 6:31 AM CDT Barbara Holcomb NP HEMATOLOGY Performing Organization Address [facility] Co de Phone Number [facility] [address] [place] [address], * (ABNORMAL) CALCIUM IONIZED HOSPITAL DRAW ONLY (01/14/2024 5:28 AM CDT) Only the most recent of3 resultswithin the time period is included. CALCIUM,IONIZE D 1.30(H) 1.15 - 1.27 mmol/L 01/14/2024 6:03 AM CDT [facility] Blood BLOOD SPECIMEN / Unknown Non-Lab Venipuncture / Unknown 01/14/2024 5:28 AM CDT 01/14/2024 5:49 AM CDT Grace Eldridge MD CHEMISTRY Performing Organization Address [facility] [facility] Co de Phone Number [facility] [address] [place] [address], * ECHO TTE COMPLETE W CONTRAST (01/13/2024 3:56 PM CDT) AORTIC VALVE MEAN PG 7 mmHg EJECTION FRACTION 64 % LVEDD 4.1 cm EJECTION FRACTION 60 - 65% Anatomical Region Laterality Modality Ultrasound 01/13/2024 2:53 PM CDT Narrative 01/13/2024 4:39 PM CDT ECHOCARDIOGRAM ALIDA Donato JONESKUHN ? Accession#: ?? [id number] : ?1960 63 years Study Date: ?? 01/13/2024 2:53:14 PM Gender: F ?BP: ? 114/44 mmHg Height: 152.00 cm ?BSA: ?1.93 m? ? ? Weight: 98.00 kg ? Tech: ? KBA ? Referring MD: BARBARA HOLCOMB Site: ? [facility] Reading Location: [facility] IP Patient Location: Inpatient. Procedure: 2D w/ [...] Contrast documentation: 2 ml diluted Definity, lot #[id number], NDC# 54905-295-33 was administered peripherally to enhance visualization of all left ventricular segments. . This study was interpreted by an [facility] accredited facility. ??Final ?? Procedure Note Travon Blood MD - 01/13/2024 ECHOCARDIOGRAM ALIDA KUHN : 1960 63 years Study Date: 01/13/2024 2:53:14 PM Gender: F BP: 114/44 mmHg Height: 152.00 cm BSA: 1.93 m? ? ? Weight: 98.00 kg Tech: PASQUALE Referring MD: BARBARA HOLCOMB Site: [facility] Reading Location: AN IP Patient Location: Inpatient. [...] 2 ml diluted Definity, lot #[id number], [facility]#[id number] was administered peripherally to enhance visualization of allleft ventricular segments. . This study was interpreted by an [facility] accredited facility. Final Barbara Holcomb SWAMPER ECHO ORD * US ARTERIAL LOWER EXTREMITY [...] stenosis. No arterial occlusion. Dictated by Peterson Rvualcaba MD @ 01/14/2024 4:57:16 PM (Electronically Signed) [...] 125 mmHg Left Brachial: 111 mmHg Right PARCEL [employer] 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: Noncompressible Right DPA: 115 mmHg (SAMUEL 0.92) Left [employer]CEL 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: Noncompressible Left DPA: Noncompressible SAMUEL: 1.0-1.4 - normal 0.9-0.99 - borderline 0.80-0.89 - mild 0.50-0.79 - moderate 0.30-0.49 - severe < 0.30 - critical RIGHT: PRIMARY CLINICIAN PROX: 204 cm/sec; triphasic waveforms PRIMARY CLINICIAN DIST: 138 cm/sec; triphasic waveforms PFA: 97 cm/sec; triphasic waveforms SFA PROX: 140, 111 cm/sec; triphasic waveforms SFA MID: 113, 74 cm/sec; triphasic waveforms SFA DIST: 107, 113 cm/sec; triphasic waveforms POP PROX: 105 cm/sec; triphasic waveforms POP DIST: 89 cm/sec; triphasic waveforms PARCEL [employer] 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: 32 cm/sec; triphasic waveforms KAITLYN: 58 cm/sec; triphasic waveforms DPA: 56 cm/sec; triphasic waveforms LEFT: PRIMARY CLINICIAN PROX: 193 cm/sec; triphasic waveforms PRIMARY CLINICIAN DIST: 152 cm/sec; triphasic waveforms PFA: 98 cm/sec; triphasic waveforms SFA PROX: 119, 109 cm/sec; triphasic waveforms SFA MID: 103, 102 cm/sec; triphasic waveforms SFA DIST: 103, 100 cm/sec; triphasic waveforms POP PROX: 124 cm/sec; triphasic waveforms POP DIST: 85 cm/sec; triphasic waveforms PARCEL [employer] 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: 169 cm/sec; triphasic waveforms KAITLYN: 91 cm/sec; [...] 125 mmHg Left Brachial: 111 mmHg Right PARCEL POST 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: Noncompressible Right DPA: 115 mmHg (SAMUEL 0.92) Left PARCEL [employer] 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: Noncompressible Left DPA: Noncompressible SAMUEL: 1.0-1.4 - normal 0.9-0.99 - borderline 0.80-0.89 - mild 0.50-0.79 - moderate 0.30-0.49 - severe < 0.30 - critical RIGHT: PRIMARY CLINICIAN PROX: 204 cm/sec; triphasic waveforms PRIMARY CLINICIAN DIST: 138 cm/sec; triphasic waveforms PFA: 97 cm/sec; triphasic waveforms SFA PROX: 140, 111 cm/sec; triphasic waveforms SFA MID: 113, 74 cm/sec; triphasic waveforms SFA DIST: 107, 113 cm/sec; triphasic waveforms POP PROX: 105 cm/sec; triphasic waveforms POP DIST: 89 cm/sec; triphasic waveforms PARCEL [employer] 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: 32 cm/sec; triphasic waveforms KAITLYN: 58 cm/sec; triphasic waveforms DPA: 56 cm/sec; triphasic waveforms LEFT: PRIMARY CLINICIAN PROX: 193 cm/sec; triphasic waveforms PRIMARY CLINICIAN DIST: 152 cm/sec; triphasic waveforms PFA: 98 cm/sec; triphasic waveforms SFA PROX: 119, 109 cm/sec; triphasic waveforms SFA MID: 103, 102 cm/sec; triphasic waveforms SFA DIST: 103, 100 cm/sec; triphasic waveforms POP PROX: 124 cm/sec; triphasic waveforms POP DIST: 85 cm/sec; triphasic waveforms 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 Dictated by John Carter [...] 01/14/2024 2:34:58 AM (Electronically Signed) Barbara Holcomb SWAMPER US * XR FOOT 3 VIEWS LEFT [...] CDT) CULTURE RESULT(A) 01/16/2024 2:44 PM CDT [facility] CULTURE 3+ Corynebacterium striatum 01/16/2024 2:44 PM CDT [facility] CULTURE 2+ Mixed oni present 01/16/2024 2:44 PM CDT [facility] GRAM STAIN No PMNs 01/16/2024 2:44 PM CDT [facility] GRAM STAIN 2+ RBCs 01/16/2024 2:44 PM CDT [facility] GRAM STAIN No Epithelial cells 01/15 2:44 PM CDT [facility] GRAM STAIN 2+ Gram Positive Bacilli 01/16/2024 2:44 PM CDT [facility] Other (Other) Non-Blood / Unknown 01/13/2024 11:49 AM CDT 01/13/2024 12:00 PM CDT Narrative [facility] - 01/16/2024 2:44 PM CDT Mixed oni; No Staphylococcus aureus, beta-Streptococcus, Streptococcus pneumoniae, or Pseudomonas aeruginosa isolated. Freya Schafer NP MICROBIOLOGY [facility] [address] [place] [address], [place] * ANAEROBIC CULTURE (01/13/2024 11:49 AM CDT) CULTURE No anaerobes isolated 01/19/2024 10:01 AM CDT [facility] Other (Other) Non-Blood / Unknown 01/13/2024 11:49 AM CDT 01/13/2024 12:00 PM CDT Freya Schafer NP MICROBIOLOGY Performing Organization Address [facility] Co de Phone Number [facility] [address] [address], [place] * (ABNORMAL) Electrolytes Panel - DKA (01/13/2024 10:53 AM CDT) Only the most recent of3 resultswithin the time period is included. SODIUM 140 136 - 145 mmol/L 01/13/2024 11:36 AM CDT [facility] POTASSIUM 5.2(H) 3.5 - 5.1 mmol/L 01/13/2024 11:36 AM CDT [facility] CHLORIDE 107 98 - 107 mmol/L 01/13/2024 11:36 AM CDT [facility] CO2,TOTAL 21(L) 22 - 29 mmol/L 01/13/2024 11:36 AM CDT [facility] ANION GAP 12 5 - 18 01/13/2024 11:36 AM CDT [facility] Blood BLOOD SPECIMEN / Unknown Non-Lab Venipuncture / Unknown 01/13/2024 10:53 AM CDT 01/13/2024 11:01 AM CDT Ifeanyi Hernández RN CHEMISTRY Performing Organization Address [facility] Co de Phone Number [facility] [address] [place] [id number], [place] * SCAN-CARDIAC STRIP (01/13/2024 8:00 AM CDT) Scanner OTHER * MAGNESIUM (01/13/2024 4:22 AM CDT) Only the most recent of2 resultswithin the time period is included. MAGNESIUM 1.9 1.6 - 2.4 mg/dL 01/13/2024 5:07 AM CDT [facility] Blood BLOOD SPECIMEN / Unknown Non-Lab Venipuncture / Unknown 01/13/2024 4:22 AM CDT 01/13/2024 4:41 AM CDT Ifeanyi Hernández RN CHEMISTRY Performing Organization Address [facility] de Phone Number [facility] [address] [place] [address], * (ABNORMAL) Serum Glucose - DKA (01/13/2024 1:52 AM CDT) Only the most recent of2 resultswithin the time period is included. Pathologist [facility] GLUCOSE,RANDOM 459(H) 70 - 139 mg/dL 01/13/2024 2:46 AM CDT [facility] Blood BLOOD SPECIMEN / Unknown Non-Lab Venipuncture / Unknown 01/13/2024 1:52 AM CDT 01/13/2024 2:03 AM CDT Emily Guzman MD CHEMISTRY Performing Organization Address [facility] de Phone Number [facility] [address] [place] [address], * (ABNORMAL) TROPONIN T (HS) ONE TIME (01/12/2024 11:39 PM CDT) [facility] TROPONIN T HS 45(H) 6-10 ng/L ng/L 01/13/2024 12:22 AM CDT [facility] Blood BLOOD SPECIMEN / Unknown Non-Lab Venipuncture / Unknown 01/12/2024 11:39 PM CDT 01/12/2024 11:45 PM CDT Emily Guzman MD CHEMISTRY Performing Organization Address [facility] Co de Phone Number [facility] [address] [place] [address], [place] * 12 Lead EKG (01/12/2024 10:16 PM CDT) Interpretation Normal sinus rhythm Left axis deviation Abnormal ECG When compared with ECG of 02-Jan-2019 02:01, Nonspecific T wave abnormality now evident in Lateral leads BEYOND NOW Ventricular Rate 78 BPM BEYOND NOW Atrial Rate 78 BPM BEYOND NOW P-R Interval 160 ms BEYOND NOW QRS Duration 82 ms BEYOND NOW QT 400 ms BEYOND NOW QTc 456 ms BEYOND NOW P [place] 72 degrees BEYOND NOW R [place] -31 degrees BEYOND NOW T [place] 69 degrees BEYOND NOW 01/12/2024 10:1 6 PM CDT 01/13/2024 8:20 PM CDT Emily Guzman MD EKG ORD Performing Organization Address [facility] Co de Phone Number BEY[place] NOW [place], [place] * MRSA/SA PCR (01/12/2024 10:07 PM CDT) MRSA DNA PCR Negative Negative 01/12/2024 11:33 PM CDT [facility] STAPHYLOCOCCUS AUREUS PCR Negative Negative 01/12/2024 11:33 PM CDT [facility] Other SPECIMEN FROM INTERNAL NOSE / Unknown Non-Blood / Unknown 01/12/2024 10:07 PM CDT 01/12/2024 10:13 PM CDT Narrative [facility] - 01/12/2024 11:33 PM CDT Test result does not preclude MRSA or SA nasal colonization. Chaparro Sneed DO MICROBIOLOGY Performing Organization Address [facility] Co de Phone Number [facility] [address] [place] [address], * (ABNORMAL) Urine Culture (01/12/2024 10:07 PM CDT) CULTURE RESULT(A) 01/16/2024 6:58 AM CDT [facility] CULTURE 10,000-50,000 CFU/mL Proteus mirabilis 01/16/2024 6:58 AM CDT [facility] CULTURE 50,000-100,000 CFU/mL Danita albicans 01/16/2024 6:58 AM CDT [facility] Urine URINE SPECIMEN / Unknown Non-Blood / Unknown 01/12/2024 10:07 PM CDT 01/12/2024 10:13 PM CDT Narrative Organism Antibiotic Method Susceptibility Proteus mirabilis TRIMETHOPRIM/SULF <=/: S Proteus mirabilis AMPICILLIN <=2: S Proteus [...] 128: R Emily Guzman MD MICROBIOL OGY [facility] [address] [place] [address], * Blood Culture (01/12/2024 9:40 PM CDT) Only the most recent of2 resultswithin the time period is included. CULTURE No Growth. 01/16/2024 11:23 PM CDT [facility] Blood BLOOD SPECIMEN / Unknown Venipuncture / Unknown 01/12/2024 9:40 PM CDT 01/12/2024 9:52 PM CDT Narrative [facility] - 01/16/2024 11:23 PM CDT Low volume blood culture received; possible false negative culture. Emily Guzman MD MICROBIOL OGY [facility] [address] [place] [address], * (ABNORMAL) TROPONIN T(HS) ACUTE W/2HR REFLEX (01/12/2024 9:37 PM CDT) TROPONIN T HS 47(H) 6-10 ng/L ng/L 01/12/2024 10:16 PM CDT [facility] Blood BLOOD SPECIMEN / Unknown Non-Lab Venipuncture / Unknown 01/12/2024 9:37 PM CDT 01/12/2024 9:46 PM CDT Narrative [facility] - 01/12/2024 10:16 PM CDT hs-cTnT (Elecsys [...] department patient population. Emily Guzman MD CHEMISTRY [facility] [address] [place] [address], * (ABNORMAL) CBC WITH AUTO DIFFERENTIAL (01/12/2024 9:37 PM CDT) WHITE BLOOD COUNT 14.9(H) 4.5 - 11.0 thou/cu mm 01/12/2024 9:54 PM CDT [facility] RED BLOOD COUNT 3.61(L) 4.00 - 5.20 mil/cu mm 01/12/2024 9:54 PM CDT [facility] HEMOGLOBIN 10.5(L) 12.0 - 16.0 g/dL 01/12/2024 9:54 PM CDT [facility] HEMATOCRIT 32.6(L) 33.0 - 51.0 % 01/12/2024 9:54 PM CDT [facility] MCV 90 80 - 100 fL 01/12/2024 9:54 PM CDT [facility] MCH 29.1 26.0 - 34.0 pg 01/12/2024 9:54 PM CDT [facility] MCHC 32.2 32.0 - 36.0 g/dL 01/12/2024 9:54 PM CDT [facility] RDW 13.2 11.5 - 15.5 % 01/12/2024 9:54 PM CDT [facility] PLATELET COUNT 273 140 - 440 thou/cu mm 01/12/2024 9:54 PM CDT [facility] MPV 11.0 6.5 - 11.0 fL 01/12/2024 9:54 PM CDT [facility] NRBC 0.0 % 01/12/2024 9:54 PM CDT [facility] ABS NRBC 0.0 thou /cu mm 01/12/2024 9:54 PM CDT [facility] % NEUT 80.3 % 01/12/2024 9:54 PM CDT [facility] % LYMPH 9.6 % 01/12/2024 9:54 PM CDT [facility] % MONO 9.2 % 01/12/2024 9:54 PM CDT [facility] % EOS 0.1 % 01/12/2024 9:54 PM CDT [facility] % BASO 0.1 % 01/12/2024 9:54 PM CDT [facility] % IMMATURE GRAN (METAS,MYELOS,NY OS) 0.7 % 01/12/2024 9:54 PM CDT [facility] ABSOLUTE NEUTROPHILS 12.0(H) 1.7 - 7.0 thou/cu mm 01/12/2024 9:54 PM CDT [facility] ABSOLUTE LYMPHOCYTES 1.4 0.9 - 2.9 thou/cu mm 01/12/2024 9:54 PM CDT [facility] ABSOLUTE MONOCYTES 1.4(H) <0.9 thou/cu mm 01/12/2024 9:54 PM CDT [facility] ABSOLUTE EOSINOPHILS 0.0 <0.5 thou/cu mm 01/12/2024 9:54 PM CDT [facility] ABSOLUTE BASOPHILS 0.0 <0.3 thou/cu mm 01/12/2024 9:54 PM CDT [facility] ABSOLUTE IMMATURE GRANULOCYTES(MET ,MYELOS,PROS) 0.1 <0.3 thou/cu mm 01/12/2024 9:54 PM CDT [facility] Blood BLOOD SPECIMEN / Unknown Non-Lab Venipuncture / Unknown 01/12/2024 9:37 PM CDT 01/12/2024 9:46 PM CDT Emily Guzman MD HEMATOLOG Y [facility] [address] [place] [address], * (ABNORMAL) BLOOD GAS,VENOUS (01/12/2024 9:37 PM CDT) PH, VENOUS 7.25(L) 7.32 - 7.43 01/12/2024 9:52 PM CDT [facility] PCO2, VENOUS 44 41 - 51 mmHg 01/12/2024 9:52 PM CDT [facility] PO2, VENOUS 48(H) 35 - 40 mmHg 01/12/2024 9:52 PM CDT [facility] HCO3,VENOUS 19(L) 22 - 29 mmol/L 01/12/2024 9:52 PM CDT [facility] BASE EXCESS, VENOUS, POCT -7.7(L) -2.0 - 3.0 01/12/2024 9:52 PM CDT [facility] O2 SATURATION, VENOUS 85(H) 70 - 75 % 01/12/2024 9:52 PM CDT [facility] INSPIRED O2 21 01/12/2024 9:52 PM CDT [facility] Comment:Unit of Measure: Lit ers (L) if <=20; Percent (%) if >20 PATIENT TEMPERATURE 36.9 Degrees C 01/12/2024 9:52 PM CDT [facility] Blood VENOUS BLOOD SPECIMEN / Unknown Non-Lab Venipuncture / Unknown 01/12/2024 9:37 PM CDT 01/12/2024 9:46 PM CDT Emily Guzman MD CHEMISTRY Performing Organization Address [facility] Co de Phone Number [facility] [address] [place] [address], * Protime - INR (01/12/2024 9:37 PM CDT) INR 1.0 <1.3 01/12/2024 9:56 PM CDT [facility] PROTIME 11.5 10.3 - 12.3 sec 01/12/2024 9:56 PM CDT [facility] Blood BLOOD SPECIMEN / Unknown Non-Lab Venipuncture / Unknown 01/12/2024 9:37 PM CDT 01/12/2024 9:46 PM CDT Narrative [facility] - 01/12/2024 9:56 PM CDT [...] Guzman MD HEMATOLOG Y Performing Organization Address [facility] Co de Phone Number [facility] [address] [place] [address], * (ABNORMAL) HEMOGLOBIN A1C MONITORING (POCT) (01/12/2024 9:37 PM CDT) Only the most recent of2 resultswithin the time period is included. HEMOGLOBIN A1C MONITORING (POCT) 9.3(H) <=6.4 % 01/14/2024 10:29 AM CDT [facility] Blood BLOOD SPECIMEN / Unknown Non-Lab Venipuncture / Unknown 01/12/2024 9:37 PM CDT 01/12/2024 9:46 PM CDT Narrative [facility] - 01/14/2024 10:29 AM CDT [...] with: Untreated Anemias, Splenectomy ? Barbara Holcomb SWAMPER CHEMISTRY [facility] [address] [place] [address], * (ABNORMAL) Hepatic Function Panel (01/12/2024 9:37 PM CDT) ALBUMIN 3.2(L) 4.0 - 4.9 g/dL 01/12/2024 10:16 PM CDT [facility] PROTEIN,TOTAL 6.4 6.0 - 8.0 g/dL 01/12/2024 10:16 PM CDT [facility] BILIRUBIN,TOTAL 0.2 0.0 - 1.2 mg/dL 01/12/2024 10:16 PM CDT [facility] BILIRUBIN,DIRECT <0.2 0.0 - 0.3 mg/dL 01/12/2024 10:16 PM CDT [facility] BILIRUBIN,INDIRE CT 01/12/2024 10:16 PM CDT [facility] Comment:Unable to calculate, Direct Bili <0.2 ALK PHOSPHATASE 122(H) 35 - 104 IU/L 01/12/2024 10:16 PM CDT [facility] ALT (SGPT) 21 10 - 35 IU/L 01/12/2024 10:16 PM CDT [facility] AST (SGOT) 20 10 - 35 IU/L 01/12/2024 10:16 PM CDT [facility] Blood BLOOD SPECIMEN / Unknown Non-Lab Venipuncture / Unknown 01/12/2024 9:37 PM CDT 01/12/2024 9:46 PM CDT Emily Guzman MD CHEMISTRY [facility] [address] [place] [address], * SCAN-CARDIAC STRIP (01/12/2024 9:20 PM CDT) [...] health care provider. XR MAMMO BILAT SCREENING [[id number]] CLINICAL HISTORY: ??This is an asymptomatic 61 y.o. patient. INDICATION FOR EXAM: Mammogram Screening. TECHNIQUE: CC & MLO views were obtained. ??This study was evaluated with the assistance of Computer-Aided Detection. COMPARISON FILM: Yes 03/02/18 [facility] 07/26/13 [facility] FINDINGS: ??The breasts are extremely dense, which lowers the sensitivity of mammography. There are no dominant masses, suspicious micro calcifications or areas of architectural distortion. Shania Montiel MD MAMMO * LIPID PANEL W REFLEX MEASURED LDL (04/28/2022 1:44 PM CDT) CHOLESTEROL,TOTAL 139 100 - 199 mg/dL 04/30/2022 6:25 PM CDT [facility] TRIGLYCERIDES 141 <150 mg/dL 04/30/2022 6:25 PM CDT [facility] HDL CHOLESTEROL 42 >40 mg/dL 6:25 PM CDT [facility] NON-HDL CHOLESTEROL 97 <145 mg/dl 04/30/2022 6:25 PM CDT [facility] CHOL/HDL RATIO 3.31 <4.50 04/30/2022 6:25 PM CDT [facility] LDL CHOLESTEROL 69 <=130 mg/dL 04/30/2022 6:25 PM CDT [facility] VLDL CHOLESTEROL 28 <=30 mg/dL 04/30/2022 6:25 PM CDT [facility] PROVIDER ORDERED STATUS RANDOM 04/30/2022 6:25 PM CDT [facility] Blood BLOOD SPECIMEN / Unknown Venipuncture / Unknown 04/28/2022 1:44 PM CDT 04/28/2022 1:45 PM CDT Shania Montiel MD CHEMISTRY [facility] [address] [place] [address], * FECAL DNA (AKA COLOGUARD) (11/10/2021 1:00 PM CDT) Shania Montiel MD COMMUNICATION ORD * ANTI HCV [[id number]] (02/16/2018 4:20 PM CDT) HEPATITIS C ANTIBODY Non-React alex Non-React alex 02/17/2018 2:48 PM CDT [facility] Comment:Antibodies to HCV no t detected; does not exclude the possibility of exposure to HCV. Blood BLOOD SPECIMEN / Unknown Butterfly / Unknown 02/16/2018 4:20 PM CDT 02/16/2018 4:20 PM CDT Coleman Plata MD SEND OUTS [facility] [address] [place] [address], * HIV 1&2 TODAY (07/21/2015 9:40 AM TALENT ACQUISITION ASSOCIATE) Pathologist [facility] HIV-1/HIV-2 ANTIBODY Non-Reacti ve Non-Reacti ve 07/21/2015 10:31 AM TALENT ACQUISITION ASSOCIATE [facility] Blood specimen (specimen) BLOOD SPECIMEN / Unknown Venipuncture / Unknown 07/21/2015 9:40 AM TALENT ACQUISITION ASSOCIATE 07/21/2015 9:47 AM TALENT ACQUISITION ASSOCIATE Narrative [facility] - 07/21/2015 10:31 AM TALENT ACQUISITION ASSOCIATE HIV-1 p24 and HIV-1/HIV-2 Ab not detected Kait Morales DO SEND OUTS Performing Organization Address City/[facility]/ZIP Co de Phone Number [facility] [address] [place] [address], * INVENTORY CONTROL SPECIALIST THIN PREP PAP SCREEN IMAGED (08/17/2012 4:02 PM TALENT ACQUISITION ASSOCIATE) Pathologist [facility] CYTOLOGY CYTOPATHOLOGY REPORT [facility] Status: Final Status ?[id number] CLINICAL INFORMATION Last Date of LMP ? :07/03/2012 Last Pap Date ?:02/01/2011 Last Pap Result ?:NIL ABN [place]/Bx Past 5 YRS :None Hormone Usage ?:BCP/OCP/Patch/R ing Menstrual Status ? :Regular Periods [place]/Bx done today ? :No Additional Information :None [...] COLLECTED:08/17/12 ? ACCESSIONED: ??08/18/12 ?? SIGNED: ??08/21/12 [facility] PAP [place] CODE NIL [facility] Tissue specimen (specimen) (Cervical/Vagina l) 08/17/2012 4:02 PM TALENT ACQUISITION ASSOCIATE 08/17/2012 4:00 PM TALENT ACQUISITION ASSOCIATE Coleman Plata MD PATHOLOGY/CYTOLOGY [facility] INTERNAL ZIP [id number] [place] [id number] from Last 3 Months or Most Recently [...] Urine earlier this year (per report from [facility], not available in CareEverywhere), 04/19/18 L cheek abscess exclusions for contact precaution discontinuation (if > 12 months since positive culture): resides in acute/parts counterman care, receiving hemodialysis, has chronic open wounds/skin [...] 8:01 PM 07/15/2012 6:55 PM Care Teams Health Sciences Program Coordinator Relationship Specialty Start Date End Date Barbara Valentin DO [address] [place] [address] PCP - General Family Practice 11/15/22 Julio Ibrahim MD [address] [address] Surgery - Orthopedics 02/01/11 Chuy Doss MD [address] [address] Surgery - Vascular 02/01/11 Markel Strong MD [address] [place] [address] Provider Family Practice 08/08/20 Nikolai Ibarra MD [address] [facility] [address] [place] [address] Endocrinology 09/07/22 [facility] [place] [address] [place], [place] [address] [place] [address] 01/17/24 Suad Ng/ [employer] CM Java Scala Developer 07/14/17 [facility] Care Home Health Nurse 07/01/17 [facility] Services Home Health Aide 07/14/17 [facility] Circle Shear Operator/ Ally Christianson [address] [place] [address] Java Scala Developer 07/07/17
--- OUTSIDE RECORDS SUMMARY | 2024-02-02 15:45 | XMS_ITS | Encounter Summary ---
Author Organization [facility] [place] [place] Address [address] [place] [address] Care Team Providers Care Icer Air Conditioning Name Role Phone Barbie Barbaraesteban Gomez DO Primary Care Provider Kevin zepeda Encounter Details Date Type Department Care Team (Late st Contact Info) Description 01/23/2024 Documentation Only [facility] [place] [address] [place] [address] Ronnell Kirby [address] [place] [address] Social History Tobacco Use Types [...] LAB BLOOD ORDERAB LES Performing Organization Address [facility]/ZIP Co de Phone Number [facility] * (ABNORMAL) Creatine (01/17/2024) Creatine, Serum 1.28(H) [facility] GFR Calculated 47(L) [facility] Blood (Blood, Venous) 01/17/2024 Historical Provider MD LAB BLOOD ORDERAB LES Performing Organization Address [facility]/State/ZIP Co de Phone Number [facility] * (ABNORMAL) Creatine (01/16/2024) Creatine, Serum 1.28(H) [facility] GFR Calculated 47(L) [facility] Blood (Blood, Venous) 01/16/2024 Historical Provider MD LAB BLOOD ORDERAB LES Performing Organization Address [facility] de Phone Number [facility] * (ABNORMAL) Creatine (01/15/2024) Pathologist [facility] Creatine, Serum 1.71(H) [facility] GFR Calculated 34(L) [facility] Blood (Blood, Venous) 01/15/2024 Historical Provider MD LAB BLOOD ORDERAB LES Performing Organization Address [facility] Phone Number [facility] * (ABNORMAL) Hemoglobin (01/15/2024) Pathologist [facility] Hemoglobin 8.4(L) g/dL [facility] MCV 91.0 [facility] Blood (Blood, Venous) 01/15/2024 Historical Provider MD LAB BLOOD ORDERAB LES Performing Organization Address [facility] de Phone Number [facility] * (ABNORMAL) Basic Metabolic Panel (BMP) (01/14/2024) Pathologist [facility] Sodium 144 mEq/L [facility] Potassium 4.4 mEq/L [facility] Chloride 112(H) [facility] Carbon Dioxide 23 mmol/L [facility] Calcium 8.4(L) mg/dL [facility] BUN 57(H) mg/dL [facility] Creatinine 2.61(H) mg/dL [facility] Glucose 179(H) mg/dL [facility] eGFR 20(L) [facility] Anion Gap 9 [facility] 01/14/2024 Historical Provider MD LAB BLOOD ORDERAB LES Performing Organization Address [facility] de Phone Number [facility] * (ABNORMAL) CBC (01/14/2024) WBC 8.5 K/uL [facility] Red Blood Cell Count 3.04(L) [facility] Hemoglobin 8.9(L) g/dL [facility] Hematocrit 27.5(L) % [facility] MCV 91 [facility] MCH 29.3 [facility] MCHC 32.4 [facility] RDW 14.4 [facility] Platelet Count 198 [facility] MPV 11.4(H) [facility] Blood (Blood, Venous) 01/14/2024 Historical Provider MD LAB BLOOD ORDERAB LES Performing Organization Address [facility] Co de Phone Number [facility]INA [...] LAB BLOOD ORDERAB LES Performing Organization Address [facility] Co de Phone Number [facility] [...] [facility] Blood (Blood, Venous) 01/12/2024 Historical Provider MD LAB BLOOD ORDERAB LES Performing Organization Address [facility] Co de Phone Number [facility] [...] on filedocumented in this encounter Care Teams Icer Air Conditioning Relationship Specialty Start Date End Date Barbara Valentin DO [address] [place] [address] PCP - General Family Medicine 09/22/23 documented as of this encounter
--- OUTSIDE RECORDS SUMMARY | 2024-02-02 15:45 | XMS_ITS | Encounter Summary ---
Author Organization [facility] [place] [place] Address [address] [place] [address] Care Team Providers Care Block Mason Name Role Phone Barbara Valentin Primary Care Provider Kevin zepeda Encounter Details Date Type Department Care Team (Late st Contact Info) Description 11/10/2023 Documentation Only [facility] [place] [address] Dave Hurst [address] [place] [address] Social History Tobacco Use Types [...] LAB BLOOD ORDERAB LES Performing Organization Address [facility] Co de Phone Number [facility] * [...] LAB BLOOD ORDERAB LES Performing Organization Address [facility]/ZIP Co de Phone Number [facility] * [...] LAB BLOOD ORDERAB LES Performing Organization Address [facility] Co de Phone Number [facility] * [...] LAB BLOOD ORDERAB LES Performing Organization Address City/[facility]/ZIP Co de Phone Number [facility] documented in this encounter Visit Diagnoses Not on filedocumented in this encounter Care Teams Block Mason Relationship Specialty Start Date End Date Barbara Valentin DO [address] [place] [address] PCP - General Family Medicine 09/22/23 documented as of this encounter
--- OUTSIDE RECORDS SUMMARY | 2024-02-02 15:45 | XMS_ITS | Encounter Summary ---
Author Organization [facility] Address [address] [place] [address] Care Team Providers Care Bow Maker Name Role Phone Barbara Valentin DO Primary Care Provider Kevin zepeda Reason for Visit * Reason Comments CKD New Patient * Nephrology Services (Urgent) - Closed Specialty Diagnoses / Procedures Referred By Contac t Referred To Contact Nephrology Diagnoses Chronic kidney disease stage 4 (HCC) Barbara Valentin DO [address] [place] [address] Elian Humphrey MD [address] [place] [address] Referral ID Status Reason Start Date Expiration Date Visits Re quested Visits Authorized [id number] Closed 09/22/2023 09/21/2024 1 1 Encounter Details Date Type Department Care Team (Latest Contact Info) Description 11/10/2023 3:30 PM EDT Office Visit [facility] [address] [place] [address] Gabriel Hicks MD [address] [place] [address] Chronic kidney disease, stage 4 [...] in caring for renal patients. If your Business Asst deems it appropriate, you will be scheduled [...] healthy, so we do have a Renal Radiation Control Specialist to help you with this. We [...] let them know that you see a blacksmith supervisor for your kidney disease. Ask that they contact your blacksmith supervisor before this type of test is scheduled. [...] Doctors, Advanced Practice Providers, nurses, and Renal Radiation Control Specialist are here to provide you with the best renal care. We want you to feel free to call us when you have questions or concerns. To call the nurse at your blacksmith supervisor's office, please see the address and telephone [...] Mikayla Kuhn Date of : 1960 Chart: [id number] PCP: Barbara Valentin DO Referring Provider: Barbara [...] her close friend who also is her SWEATBAND SHAPER. No recent illnesses or hospitalizations. Tolerating her [...] MG/DOSE powder Yuni Olea MD Inhale 1 [place] into affected nostril(s) each time if needed [...] disease documented in this encounter Care Teams Bow Maker Relationship Specialty Start Date End Date Barbara Valentin [place] [place] [address] PCP - General Family Medicine 09/22/23 documented as of this encounter
--- OUTSIDE RECORDS SUMMARY | 2024-02-02 15:45 | XMS_ITS | Encounter Summary ---
Author Organization [facility] [place] Address [address] [place] [address] Care Team Providers Care Helmet Coverer Name Role Phone Barbara Valentin DO Primary Care Provider Kevin zepeda Encounter Details Date Type Department Care Team (Late st Contact Info) Description 01/23/2024 Office Communication [facility] [place] [address] [place] [address] Ronnell Kirby [address] [place] [address] Social History Tobacco Use Types [...] on filedocumented in this encounter Care Teams Helmet Coverer Relationship Specialty Start Date End Date Barbara Valent[place] [address] PCP - General Family Medicine 09/22/23 documented as of this encounter
== END 2024-02-02 15:40 | disposition home or self-care (01) ==
LOC: WOUND 15:39
PROVIDERS: PCP Family Medicine; Visit Provider Nurse Practitioner Family
DX: E11.621 Type 2 diabetes mellitus with foot ulcer (principal); L97.422 Non-pressure chronic ulcer of left heel and midfoot with fat layer exposed; M14.672 Charcot's joint, left ankle and foot; Z79.4 Long term (current) use of insulin
CPT/HCPCS: G0463

== ENCOUNTER 2024-02-09 15:16 | Outpatient (CLI) | payer OTHER, SELFPAY ==
--- OUTSIDE RECORDS SUMMARY | 2024-02-09 15:18 | XMS_ITS | Encounter Summary ---
Author Organization [facility] [place] Address [address] [place] [address] Care Team Providers Care Lifter Name Role Phone Barbara Valentin DO Primary Care Provider Kevin zepeda Encounter Details Date Type Department Care Team (Late st Contact Info) Description 09/22/2023 Documentation Only [facility] [place] [address] [facility] [address] [place] [address] No, Pcp Social History Tobacco [...] on filedocumented in this encounter Care Teams Lifter Relationship Specialty Start Date End Date Barbara Valentin [place] [address] PCP - General Family Medicine 09/22/23 documented as of this encounter
--- OUTSIDE RECORDS SUMMARY | 2024-02-09 15:18 | XMS_ITS | Clinical Summary ---
Author Organization [facility] [place] [place] Address [address] [facility] [place] [address] Phone Care Team Providers Care Live In Housekeeper Name Role Phone Sir Valentinesteban Gomez DO [...] One Pack) 3 MG/DOSE powder Inhale 1 [place] into affected nostril(s) each time if needed [...] Team Description 02/01/2024 Telephone [facility] [address] [place] [phone] Gabriel Hicks MD 01/23/2024 Documentation Only [facility] [place] [address] [facility] [address] [place] [id number] Ronnell Kirby 01/23/2024 Office Communication [facility] [place] [address] [facility] [address] [place] [address] Ronnell Kirby 11/10/2023 3:30 PM EDT Office Visit [facility] [place] [address] Gabriel Hicks MD Chronic kidney disease, stage 4 (severe) (HCC) (Primary Dx); 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); Chronic diastolic congestive heart failure (HCC); Secondary hyperparathyroidism of renal origin (HCC); Anemia in chronic kidney disease 11/10/2023 Documentation Only [facility] [place] [address] Dave Hurst from Last 3 Months Immunizations [...] LAB BLOOD ORDERAB LES Performing Organization Address [facility] Co de Phone Number [facility] * (ABNORMAL) Hemoglobin (01/15/2024) Hemoglobin 8.4(L) g/dL [facility] MCV 91.0 [facility] Blood (Blood, Venous) 01/15/2024 Historical Provider MD LAB BLOOD ORDERAB LES Performing Organization Address [facility] Co de Phone Number [...] LAB BLOOD ORDERAB LES Performing Organization Address City/[facility]/ZIP Co de Phone Number [facility] from Last 3 Months Care Teams Live In Housekeeper Relationship Specialty Start Date End Date Barbara Valentin DO [address] [place] [address] PCP - General Family Medicine 09/22/23
--- OUTSIDE RECORDS SUMMARY | 2024-02-09 15:18 | XMS_ITS | Encounter Summary ---
Author Organization [facility] [place] Address [address] [place] [address] Care Team Providers Care Recruitment Coordinator Name Role Phone Barbara Valentin DO Primary Care Provider Kevin zepeda Encounter Details Date Type Department Care Team (Late st Contact Info) Description 01/23/2024 Office Communication [facility] [place] [address] [place] [address] Ronnell Kirby [address] [place] [address] Social History Tobacco Use Types [...] on filedocumented in this encounter Care Teams Recruitment Coordinator Relationship Specialty Start Date End Date Barbara [place] [address] PCP - General Family Medicine 09/22/23 documented as of this encounter
--- OUTSIDE RECORDS SUMMARY | 2024-02-09 15:18 | XMS_ITS | Encounter Summary ---
Author Organization [facility] Address [address] [place] [address] Care Team Providers Care Organ Installer Name Role Phone Barbara Valentin Primary Care Provider Kevin zepeda Encounter Details Date Type Department Care Team (Late st Contact Info) Description 11/10/2023 Documentation Only [facility] [place] [address] Dave Hurst [address] [place] [address] Social History Tobacco Use Types [...] LAB BLOOD ORDERAB LES Performing Organization Address [facility] Co de Phone Number [facility] * [...] LAB BLOOD ORDERAB LES Performing Organization Address [facility]/ZIP Co de Phone Number [facility] * [...] LAB BLOOD ORDERAB LES Performing Organization Address [facility] Co de Phone Number [facility] * [...] LAB BLOOD ORDERAB LES Performing Organization Address City/[facility]/ZIP Co de Phone Number [facility] documented in this encounter Visit Diagnoses Not on filedocumented in this encounter Care Teams Organ Installer Relationship Specialty Start Date End Date Barbara Valentin DO [address] [place] [address] PCP - General Family Medicine 09/22/23 documented as of this encounter
--- OUTSIDE RECORDS SUMMARY | 2024-02-09 15:18 | XMS_ITS | Encounter Summary ---
Author Organization [facility] [place] Address [address] [place] [address] Care Team Providers Care Pearl Hand Name Role Phone Barbie Barbaraesteban Gomez DO Primary Care Provider Kevin zepeda Encounter Details Date Type Department Care Team (Late st Contact Info) Description 01/23/2024 Documentation Only [facility] [place] [address] [place] [address] Ronnell Kirby [address] [place] [address] Social History Tobacco Use Types [...] LAB BLOOD ORDERAB LES Performing Organization Address [facility]/ZIP Co de Phone Number [facility] * (ABNORMAL) Creatine (01/17/2024) Creatine, Serum 1.28(H) [facility] GFR Calculated 47(L) [facility] Blood (Blood, Venous) 01/17/2024 Historical Provider MD LAB BLOOD ORDERAB LES Performing Organization Address [facility]/State/ZIP Co de Phone Number [facility] * (ABNORMAL) Creatine (01/16/2024) Creatine, Serum 1.28(H) [facility] GFR Calculated 47(L) [facility] Blood (Blood, Venous) 01/16/2024 Historical Provider MD LAB BLOOD ORDERAB LES Performing Organization Address [facility] de Phone Number [facility] * (ABNORMAL) Creatine (01/15/2024) Pathologist [facility] Creatine, Serum 1.71(H) [facility] GFR Calculated 34(L) [facility] Blood (Blood, Venous) 01/15/2024 Historical Provider MD LAB BLOOD ORDERAB LES Performing Organization Address [facility] Phone Number [facility] * (ABNORMAL) Hemoglobin (01/15/2024) Pathologist [facility] Hemoglobin 8.4(L) g/dL [facility] MCV 91.0 [facility] Blood (Blood, Venous) 01/15/2024 Historical Provider MD LAB BLOOD ORDERAB LES Performing Organization Address [facility] de Phone Number [facility] * (ABNORMAL) Basic Metabolic Panel (BMP) (01/14/2024) Pathologist [facility] Sodium 144 mEq/L [facility] Potassium 4.4 mEq/L [facility] Chloride 112(H) [facility] Carbon Dioxide 23 mmol/L [facility] Calcium 8.4(L) mg/dL [facility] BUN 57(H) mg/dL [facility] Creatinine 2.61(H) mg/dL [facility] Glucose 179(H) mg/dL [facility] eGFR 20(L) [facility] Anion Gap 9 [facility] 01/14/2024 Historical Provider MD LAB BLOOD ORDERAB LES Performing Organization Address [facility] de Phone Number [facility] * (ABNORMAL) CBC (01/14/2024) WBC 8.5 K/uL [facility] Red Blood Cell Count 3.04(L) [facility] Hemoglobin 8.9(L) g/dL [facility] Hematocrit 27.5(L) % [facility] MCV 91 [facility] MCH 29.3 [facility] MCHC 32.4 [facility] RDW 14.4 [facility] Platelet Count 198 [facility] MPV 11.4(H) [facility] Blood (Blood, Venous) 01/14/2024 Historical Provider MD LAB BLOOD ORDERAB LES Performing Organization Address [facility] Co de [...] LAB BLOOD ORDERAB LES Performing Organization Address [facility] Co de [...] LAB BLOOD ORDERAB LES Performing Organization Address [facility] Co de [...] on filedocumented in this encounter Care Teams Pearl Hand Relationship Specialty Start Date End Date Barbara Valentin DO [address] [place] [address] PCP - General Family Medicine 09/22/23 documented as of this encounter
--- OUTSIDE RECORDS SUMMARY | 2024-02-09 15:18 | XMS_ITS | Encounter Summary ---
Author Organization [facility] [place] [place] Address [address] [place] [address] Care Team Providers Care Academic Support Coordinator Name Role Phone Barbara Valentin DO Primary Care Provider Kevin zepeda Encounter Details Date Type Department Care Team (Late st Contact Info) Description 02/01/2024 Telephone [facility] [place] [address] [place] [address] Gabriel Hicks MD [address] [place] [address] Social History Tobacco Use Types [...] on filedocumented in this encounter Care Teams Academic Support Coordinator Relationship Specialty Start Date End Date Barbara Valentin DO [address] [place] [address] PCP - General Family Medicine 09/22/23 documented as of this encounter
--- OUTSIDE RECORDS SUMMARY | 2024-02-09 15:18 | XMS_ITS | Encounter Summary ---
Author Organization [facility] Address [address] [place] [address] Care Team Providers Care Tents Assembler Name Role Phone Barbara Valentin DO Primary Care Provider Kevin zepeda Reason for Visit * Reason Comments CKD New Patient * Nephrology Services (Urgent) - Closed Specialty Diagnoses / Procedures Referred By Contac t Referred To Contact Nephrology Diagnoses Chronic kidney disease stage 4 (HCC) Barbara Valentin DO [address] [place] [address] Elian Humphrey MD [address] [place] [address] Referral ID Status Reason Start Date Expiration Date Visits Re quested Visits Authorized [id number] Closed 09/22/2023 09/21/2024 1 1 Encounter Details Date Type Department Care Team (Latest Contact Info) Description 11/10/2023 3:30 PM EDT Office Visit [facility] [address] [place] [address] Gabriel Hicks MD [address] [place] [address] Chronic kidney disease, stage 4 [...] Hicks/RAFAEL Acosta Welcome to [facility] Although we are experts in the [...] in caring for renal patients. If your Procurement Assistant deems it appropriate, you will be scheduled [...] healthy, so we do have a Renal Police Patrol Lieutenant to help you with this. We encourage [...] let them know that you see a grinder carbon plant for your kidney disease. Ask that they contact your grinder carbon plant before this type of test is scheduled. [...] Doctors, Advanced Practice Providers, nurses, and Renal Police Patrol Lieutenant are here to provide you with the best renal care. We want you to feel free to call us when you have questions or concerns. To call the nurse at your grinder carbon plant's office, please see the address and telephone number listed on your After Visit Summary. Thank you, The Physicians and staff at [facility] UNDERSTANDING YOUR BLOOD PRESSURE & LAB [...] Mikayla Kuhn Date of : 1960 Chart: [id number] PCP: Barbara Valentin DO Referring Provider: Barbara [...] her close friend who also is her WELDING PRODUCTION SUPERVISOR. No recent illnesses or hospitalizations. Tolerating her [...] 05/12/2024). Gabriel Hicks MD [facility] The following portions of the patient's chart [...] MG/DOSE powder Yuni Olea MD Inhale 1 [place] into affected nostril(s) each time if needed [...] disease documented in this encounter Care Teams Tents Assembler Relationship Specialty Start Date End Date Barbara Valent[place] [address] PCP - General Family Medicine 09/22/23 documented as of this encounter
--- OUTSIDE RECORDS SUMMARY | 2024-02-09 15:19 | XMS_ITS | Clinical Summary ---
Author Organization [facility] Address [place], [place] [address] Care Team Providers Care Leach Cell Operator Name Role Phone Julio Ibrahim MD Unavailable Chuy Doss MD Unavailable Markel Strong MD Unavailable Nikolai Ibarra MD Unavailable [phone] Barbara Valentin DO Primary Care Provider [phone] [facility] [place] Unavailable Allergies Active Allergy Reactions Criticality Noted [...] mellitus at risk of hypoglycemia Inhale 1 [place] into affected nostril(s) each time if needed for Severe Hypoglycemia. Roll on side and call 911 after administration. 2 Each 12/25/19 22 Active fluticasone (50 mcg per actuation) nasal solution (FLONASE)Indicatio ns:Nasal congestion Inhale 1 [place] into affected nostril(s) once daily. Inhale 1 [place] in the nostril(s) once daily. 16 g [...] 04/20/20 23 Active continuous glucose monitor READER (bluebird bio Elli 2 Mobile)Indications :Type 1 diabetes mellitus with other specified complication (HC) To be used to read blood sugars per vice president corporate communications's directions. 1 Each 05/19/20 23 Active blood-glucose [...] be used to read blood sugars per vice president corporate communications's directions. 6 Each 3 09/06/19 24 Active [...] two times daily. 01/17/20 24 Active insulin glargine, U-100, (LANTUS) [...] day. Use dates: 01/22/24-02/20/24 60 Tablet 01/20/20 24 Active insulin lispro, U-100, (HumaLOG KwikPen Insulin) 100 unit/mL inpn penIndications:Ashly betes mellitus type 1 with complications (HC) 6-7 units with each meal , plus Corrective dose insulin as needed, up to 45 units / day 10 mL 3 02/08/20 24 Active hydrocortisone 1 % creamIndications:R senthil APPLY TOPICALLY TO AFFECTED AREA(S) TWICE A DAY 28.4 g 08/23/19 21 024 Discontinued(Ph armacist change per medication history (E-cancel not sent)) blood sugar diagnostic (Silviculturist Express Test Strip) stripIndications:U ncontrolled type 1 [...] medication history (E-cancel not sent)) pregabalin (LYRICA) 50 mg capsuleIndications :Diabetic peripheral [...] dose. 7.5 mcg. 4 Patch 3 01/06/20 024 Discontinued(Ph armacist change per medication history [...] subcutaneous three times daily before meals. Discontinued insulin aspart, U-100, (NOVOLOG FLEXPEN) 100 unit/mL (3 mL) penIndications:Typ e 1 diabetes mellitus with proliferative retinopathy, macular edema presence unspecified, unspecified laterality, unspecified proliferative retinopathy type (HC) 6-7 units with each meal , plus Corrective dose insulin as needed, up to 45 units / day 01/17/20 24 024 Discontinued(*M edication adjustment) insulin lispro (HUMALOG; ADMELOG) 100 unit/mL injectionIndicatio ns:Diabetes mellitus type 1 with complications (HC) INJECT 6-8 UNITS SUBCUTANEOUSLY THREE TIMES DAILY, 4 UNITS TWICE A DAY WITH SNACKING DEPENDING ON CARB INTAKE. NEEDS APPOINTMENT FOR REFILLS. 10 mL 3 02/07/20 24 024 Discontinued(*A vailability/For mulary change/Cost of medication) insulin lispro, U-100, (HUMALOG KWIKPEN; ADMELOG SOLOSTAR) 100 unit/mL inpn penIndications:Ashly betes mellitus type 1 with complications (HC) NJECT 6-8 UNITS SUBCUTANEOUSLY THREE TIMES DAILY, 4 UNITS TWICE A DAY WITH SNACKING DEPENDING ON CARB INTAKE. NEEDS APPOINTMENT FOR REFILLS. 30 mL 02/07/20 24 024 Discontinued(*M edication adjustment) insulin aspart, U-100, (NOVOLOG FLEXPEN) 100 unit/mL (3 mL) penIndications:Typ e 1 diabetes mellitus with proliferative retinopathy, macular edema presence unspecified, unspecified laterality, unspecified proliferative retinopathy type (HC) 6-7 units with each meal , plus Corrective dose insulin as needed, up to 45 units / day 10 mL 3 02/08/20 24 024 Discontinued(*M ed complete/Regime n complete/Level of care change) Active Problems Patient Care Coordination No te [...] substance agreement signed - 10/07/23 10/07/2023 Overview: [facility] [place] [place] .................... 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) use of anticoagulants 11/27/2013 12/28/2013 Anticoagulation [...] Encounters Date Type Department Care Team Description 02/09/2024 Refill [facility] [address] [place] [address] Barbara Valentin, DO Refill Request (Duloxetine) 02/08/2024 3:00 PM CDT Home Care Visit [facility] [address] [facility] [place] [address] Veda Resendiz, RN SN - WOUND/OSTOMY CHART CONSULT 02/08/2024 9:00 AM CDT Home Care Visit [facility] [address] [place] [address] Geneva Sanchez, LOS SN - HOME VISIT 02/08/2024 Telephone [facility] [address] [place] [address] Sir Valentini Patricia, DO Pharmacist Medication Management (MEDICATION CHANGE) 02/08/2024 Telephone [facility] [address] [address] Geneva Sanchez, robotic welding operator List Update 02/07/2024 4:00 PM CDT Home Care Visit [facility] [address] [place] [address] Joi Moreno COTA OT - HOME VISIT 02/07/2024 9:30 AM CDT Home Care Visit [facility] [address] [place] [address] Kendal Serna, PT PT - HOME VISIT 02/07/2024 Telephone [facility] [address] [place] [address] Saúlqra, Barbara Patricia, DO Refill Request (Insulin lispro pens) 02/04/2024 Refill [facility] [address] [place] [address] Saúlq, Barbara Patricia, DO Refill Request (Insulin Lispro) 02/03/2024 1:00 PM CDT Home Care Visit [facility] [address] [place] [address] Shania Elaine, LOS SN - MISSED VISIT 02/03/2024 9:00 AM CDT Home Care Visit [facility] [address] [place] [address] Joi Moreno COTA OT - HOME VISIT 02/02/2024 11:00 AM CDT Home Care Visit [facility] [address] [place] [address] Kendal Serna, PT PT - HOME VISIT 02/01/2024 4:00 PM CDT Home Care Visit [facility] [address] [facility] [place] [address] Joi Moreno COTA OT - HOME VISIT 01/31/2024 9:30 AM CDT Home Care Visit [facility] [address] [facility] [place] [address] Fabiola Mathis CASTER HELPER - HOME VISIT 01/31/2024 Home Care Visit [facility] [address] [place] [address], [place] [address] Oumou Burns, LOS CARE COORDINATION 01/31/2024 Home Care Visit [facility] [address] [place] [phone] Oumou Burns, LOS CARE COORDINATION 01/30/2024 10:45 AM CDT Home Care Visit [facility] [address] [place] [phone] Kendal Serna, PT PT - HOME VISIT 01/30/2024 9:00 AM CDT Home Care Visit [facility] [address] [place] [address], [place] [address] Geneva Sanchez, LOS SN - INITIAL ASSESSMENT 01/27/2024 11:30 AM CDT Home Care Visit [facility] [address] [place] [phone] Fabiola Mathis CASTER HELPER - MISSED VISIT 01/26/2024 5:00 PM CDT Home Care Visit [facility] [address] [place] [phone] Guillermo Boykin, PT PT - MISSED VISIT 01/25/2024 1:30 PM CDT Home Care Visit [facility] [address] [place] [phone] Coleman Greene, PT PT - HOME VISIT 01/25/2024 Travel 01/24/2024 1:00 PM CDT Home Care Visit [facility] [address] [place] [phone] Dar Phillips OT OT - INITIAL ASSESSMENT 01/24/2024 9:30 AM CDT Home Care Visit [facility] [address] [place] [address] Fabiola Mathis CASTER HELPER - HOME VISIT 01/24/2024 Home Care Visit [facility] [address] [place] [address] Narcisa Atkinson, RN CARE COORDINATION 01/23/2024 Home Care Visit [facility] [address] [place] [address] Narcisa Atkinson, RN CARE COORDINATION 01/20/2024 [facility] [address] [place] [address] Toshia Hooks NP Refill Request 01/18/2024 1:45 PM CDT Home Care Visit [facility] [address] [place] [address] Kendal Serna, PT PT - OASIS START OF CARE 01/18/2024 10:30 AM CDT Phone Office Visit [facility] [address] [facility] [address] [place] [address] Nikolai Ibarra MD 01/18/2024 Plan of Care Documentation [address] [address] 01/18/2024 Patient Outreach [facility] [address] [place] [address] Maria R Ho, RN Primary RN Care Management; Hospital F/U (Lace 44) 01/18/2024 Travel 01/12/2024 9:13 PM CDT - 01/17/2024 5:23 PM CDT Hospital Encounter [facility] [address] [place] [address] Emily Guzman MD Litell, DO Chente Honeycutt, MD Dusty Manjarrez, MD Ricky Alston, Helder Hoover MD [facility] Hospitalists Of Opioid dependence, uncomplicated (HC) (Primary Dx); Nasal congestion; Chronic pain syndrome; Diabetic ketoacidosis without coma associated with type 1 diabetes mellitus (HC); 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, macular edema presence unspecified, unspecified laterality, unspecified proliferative retinopathy type (HC); Heel ulcer, right, with unspecified severity (HC) Discharge Disposition: Home Health 01/09/2024 Refill [facility] [address] [place] [address] Barbara Valentin Patricia, DO Refill Request (Fluoxetine) 01/09/2024 Refill [facility] [address] [place] [address] Elian Humphrey MD Refill Request (Torsemide) 01/06/2024 4:00 PM CDT Office Visit [facility] [address] [facility] [address] [place] [address] Toshia Hooks NP Follow Up; Pain (Multi source; was told by her Medical Translator she can ot use OTC Voltaren gel., which had been helping her O.A. pain (hands; wrists; shoulders; ) ) 01/06/2024 Travel 01/02/2024 Telephone [facility] [address] [place] [address] Sir Valentini Patricia, DO Follow Up 12/27/2023 Refill [facility] [address] [place] [address] Barbara Valentin Patricia, DO Refill Request (Pregabalin, Cetirizine) 12/23/2023 2:35 PM CDT Office Visit [facility] [address] [place] [address] Barbara Valentin, DO Diabetes (3 month check, labs); Rash (Rash under breasts? ) 12/23/2023 Travel 12/20/2023 Refill [facility] [address] [place] [address] Barbara Valentin Patricia, DO Refill Request (Humalog Kwikpen Insulin) 12/16/2023 Refill [facility] [address] [place] [address] Toshia Hooks NP Refill Request (Patient son called requesting oxycodone 5 mg at [facility].////) 12/15/2023 Telephone [facility] [address] [place] [address] Barbara Valentin Patricia, DO Lab 12/08/2023 Refill [facility] [address] [place] [address] Sir Valentini Patricia, DO Refill Request (Ulticare Pen Needle, Per-fit Underwear) 12/07/2023 Refill [facility] [address] [place] [address] Sir Valentini Patricia, DO Refill Request (Ulticare Pen Needle) 11/29/2023 Telephone [facility] [address] [place] [address] Sir Valentini Patricia, DO Referral 11/29/2023 Refill [facility] [address] [place] [address] Sir Valentini Patricia, DO Refill Request (Cholecalciferol) 11/18/2023 Refill [facility] [address] [place] [address] Toshia Hooks NP Refill Request (oxycodone 5 mg at [facility]) 11/17/2023 Telephone [facility] [address] [place] [address] Barbara Valentin Patricia, DO Questions (Vish rod R.N. correctional counselor/case manager with [facility] has some questions for pcp) 11/15/2023 Refill [facility] [address] [place] [address] Germanra Barbara Patricia, DO Refill Request (Levothyroxine, Fluoxetine) 11/11/2023 Telephone [facility] [address] [place] [address] Barbara Valentin, DO questions and concerns (vish [...] Sign Reading Time Taken Comments Blood Pressure 156/90 02/08/2024 9:18 AM CDT Pulse 62 02/08/2024 9:18 AM CDT Temperature 36.2 ??C (97.2 ??F) 02/08/2024 9:18 AM CD T Respiratory Rate 18 02/08/2024 9:18 AM CDT Oxygen Saturation 94% 02/08/2024 9:18 AM CDT Inhaled Oxygen Concentration - - Weight 102.3 kg (225 lb 9.6 oz) 01/16/2024 6:48 AM CDT Height 152.4 cm (5') 01/12/2024 9:27 PM CDT Body Mass Index 44.06 01/12/2024 9:27 PM CDT Plan of Treatment Upcoming Encounters Date Type Department Care Team (Late st Contact Info) Description 02/10/2024 12:45 PM CDT Home Care Visit [facility] [address] [place] [address] Fabiola Mathis [address] [place] [address] 02/10/2024 4:00 PM CDT Home Care Visit [place] [id number] [place] [phone] Joi Moreno VARELA [address] [place] [address] 02/15/2024 3:00 AM CDT Home Care Visit [address] [address] Coleman Greene, PT [address] [place] [address] 02/15/2024 4:00 AM CDT Home Care Visit [address] [address] Joi Moreno VARELA [address] [place] [address] 02/15/2024 5:00 AM CDT Home Care Visit [address] [address] Geneva Sanchez, LOS 02/17/2024 12:45 PM CDT Home Care Visit [address] [address] Fabiola Mathis [address] [place] [address] 02/22/2024 4:30 AM CDT Home Care Visit [address] [address] Dar Phillips OT [address] [place] [address] 02/22/2024 7:00 AM CDT Home Care Visit [address] [address] Geneva Sanchez, LOS 02/28/2024 4:00 AM CDT Home Care Visit [facility] [address] [place] [address] Veda Resendiz, RN [address] [place] [address] 02/29/2024 4:00 AM CDT Home Care Visit [facility] [address] [place] [phone] Geneva Sanchez, LOS 03/07/2024 4:00 AM CDT Home Care Visit [facility] [address] [place] [address], [place] [address] Geneva Sanchez, LOS 03/14/2024 4:00 AM CDT Appointment [address] [address] Geneva Sanchez RN 03/26/2024 3:25 PM CDT Office Visit [facility] [address] [place] [address] Barbara Valentin, [address] [place] [address] 05/04/2024 3:30 PM CDT Phone Office Visit [facility] [address] [facility] [address] [place] [address] Nikolai Ibarra MD [address] [facility] [address] [place] [address] Health Maintenance Due Date Last Done Comments [...] 03/18/2020, Additional history exists Fecal testing sDNA-FIT ([place] guard) for age 45-75 11/10/2024 11/10/2021 Pneumococcal series for age 6-64 (3 of 3 - PPSV23 or PCV20) 2026 08/17/2016, 08/14/2014, 07/04/2005, Additional history exists Lipids for age 45-75 04/28/2027 04/28/2022, 08/17/2019, 08/31/2018, Additional history exists Tdap Completed 08/25/2010 HIV for age 15-65 Completed 07/21/2015 Hepatitis C screening for ag e 18-79 Completed 02/16/2018 Medical Devices Implanted Type Area Textile Scrap Salvager Device Identifier Shelf Expiration Date Model / Serial / Lot [id number] 2x12mm [[id number]] Implanted:Qty: 1 on 08/08/[address] [facility] Explanted:at [facility] (Quantity not on file) Stomach WireImage [id number]# / [id number] / Stem Compnt Primary 8mm Mini - [id number] Implanted:Qty: 1 on 03/17/[address] [facility] Right: Shoulder BIOMET [id number]# / / [id number] Head Hum Bio-Mod [id number] - [id number] Implanted:Qty: 1 on 03/17/[address] [facility] Right: Shoulder BIOMET [id number]# / / [id number] Base Glenoid Hybrid 4mm Sm - [id number] Implanted:Qty: 1 on 03/17/[address] [facility] Right: Shoulder BIOMET [id number]# / / [id number] Cmnt 1/2 Dosehowmedica - [id number] Implanted:Qty: 1 on 03/17/[address] [facility] Right: Shoulder [employer] 6188-1-01 0# / / [id number] Post Glenoid Hybrid Regenerex - [id number] Implanted:Qty: 1 on 03/17/[address] [facility] Right: Shoulder BIOMET [id number] # / / [id number] Head Humeral 44x15 Co Cr Biomodular - [id number] Implanted:Qty: 1 on 07/12/[address] [facility] Left: Shoulder BIOMET [id number]# / / [id number] Shoulder Stem Implanted:Qty: 1 on 07/12/[address] [facility] Left: Shoulder [id number] / / [id number] Description:SHOULDER STEM Cmnt Bone 1/2 Dosehowmedica - [id number] Implanted:Qty: 1 on 07/12/[address] [facility] Left: Shoulder [employer] 6188-1-01 0# / / [id number] Post Glenoid Hybrid Regenerex - [id number] Implanted:Qty: 1 on 07/12/[address] [facility] Left: Shoulder BIOMET [id number] # / / [id number] Base Glenoid Hybrid 4mm Sm - [id number] Implanted:Qty: 1 on 07/12/[address] 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 SAILING OFFICER THIN PREP PAP SCREEN IMAGED Routine 08/17/2012 4:02 PM DRILL PRESS SET UP OPERATOR Screening for malignant neoplasm of the [...] 01/17/2024 11:35 AM CDT [facility] Blood BLOOD SPECIMEN / Unknown 01/17/2024 11:27 AM CDT 01/17/2024 11:35 AM CDT Helder García MD CHEMISTRY Performing Organization Address [facility] Phone Number [facility] [address] [place] [address], * (ABNORMAL) CREATININE (01/17/2024 8:20 AM CDT) Only the most recent of3 resultswithin the time period is included. eGFR 47(L) >90 mL/min/1.7 3m2 01/17/2024 9:06 AM CDT [facility] Comment:As of 2021, eG FR is calculated by the CKD-EPI creatinine equation without race adjustment. ??eGFR can be influenced by muscle mass, exercise, and diet. ??The reported eGFR is an estimation only and is only applicable if the renal function is stable. CREATININE 1.28(H) 0.50 - 0.90 mg/dL 01/17/2024 9:06 AM CDT [facility] Blood BLOOD SPECIMEN / Unknown Non-Lab Venipuncture / Unknown 01/17/2024 8:20 AM CDT 01/17/2024 8:26 AM CDT Helder García MD CHEMISTRY Performing Organization Address [facility] Phone Number [facility] [address] [place] [address], * PHOSPHORUS (01/17/2024 8:20 AM CDT) Only the most recent of5 resultswithin the time period is included. PHOSPHORUS 2.6 2.5 - 4.5 mg/dL 01/17/2024 9:06 AM CDT [facility] Blood BLOOD SPECIMEN / Unknown Non-Lab Venipuncture / Unknown 01/17/2024 8:20 AM CDT 01/17/2024 8:26 AM CDT Sarah Betancourt RN CHEMISTRY Performing Organization Address [facility]/State/ZIP Co de Phone Number [facility] [address] [place] [address], * (ABNORMAL) BASIC METABOLIC PANEL (01/17/2024 8:20 AM CDT) Only the most recent of5 resultswithin the time period is included. SODIUM 139 136 - 145 mmol/L 01/17/2024 12:35 PM CDT [facility] POTASSIUM 3.9 3.5 - 5.1 mmol/L 01/17/2024 12:35 PM CDT [facility] CHLORIDE 103 98 - 107 mmol/L 01/17/2024 12:35 PM T [facility] CO2,TOTAL 24 22 - 29 mmol/L 01/17/2024 12:35 PM T [facility] ANION GAP 12 5 - 18 01/17/2024 12:35 PM T [facility] GLUCOSE 162(H) 70 - 99 mg/dL 01/17/2024 12:35 PM T [facility] CALCIUM 8.7(L) 8.8 - 10.2 mg/dL 01/17/2024 12:35 PM T [facility] BUN 17 8 - 23 mg/dL 01/17/2024 12:35 PM T [facility] CREATININE 1.31(H) 0.50 - 0.90 mg/dL 01/17/2024 12:35 PM T [facility] BUN/CREAT RATIO 13 10 - 20 12:35 PM T [facility] eGFR 46(L) >90 mL/min/1.7 3m2 01/17/2024 12:35 PM T [facility] Comment: As of 2021, [...] Helder García MD CHEMISTRY Performing Organization Address [facility] de Phone Number [facility] [address] [place] [address], * CLOSTRIDIOIDES DIFFICILE TOXIN PCR (01/16/2024 12:27 PM CDT) Pathologist [facility] CLOSTRIDIUM DIFFICILE PCR Negative 01/16/2024 2:18 PM CDT [facility] PRESUMPTIVE NAP1 STRAIN Negative 01/16/2024 2:18 PM CDT [facility] Stool STOOL SPECIMEN / Unknown Non-Blood / Unknown 01/16/2024 12:27 PM CDT 01/16/2024 12:51 PM CDT Narrative [facility] - 01/16/2024 2:18 PM CDT The NAP1 (027 or BI) strain is a hypervirulent strain. Detection may be useful for epidemiological purposes. Helder García MD MICROBIOLOGY Performing Organization Address [facility] de Phone Number [facility] [address] [place] [address], * SCAN CORRESP-EKG RESULTS (01/16/2024 9:07 AM CDT) Narrative 01/16/2024 9:07 AM CDT Ordered by an unspecified provider. Other Clinical Staff OTHER * (ABNORMAL) HEMOGLOBIN (01/16/2024 6:30 AM CDT) Only the most recent of2 resultswithin the time period is included. HEMOGLOBIN 8.9(L) 12.0 - 16.0 g/dL 01/16/2024 7:13 AM CDT [facility] MCV 91 80 - 100 fL 01/16/2024 7:13 AM CDT [facility] Blood BLOOD SPECIMEN / Unknown Venipuncture / Unknown 01/16/2024 6:30 AM CDT 01/16/2024 6:58 AM CDT Fabrizio Montano MD HEMATOLOGY Performing Organization Address [facility] Co de Phone Number [facility] [address] [place] [address], [place] * VANCOMYCIN (01/16/2024 6:30 AM CDT) Only the most recent of3 resultswithin the time period is included. VANCOMYCIN 13.0 ug/mL 01/16/2024 7:42 AM CDT [facility] Comment:No Reference Range D efined. DATE OF LAST DOSE,RANDOM Not Given 01/16/2024 7:42 AM CDT [facility] TIME OF LAST DOSE,RANDOM Not Given 01/16/2024 7:42 AM CDT [facility] Blood BLOOD SPECIMEN / Unknown Venipuncture / Unknown 01/16/2024 6:30 AM CDT 01/16/2024 6:58 AM CDT Barbara Holcomb NP CHEMISTRY Performing Organization Address [facility] Co de Phone Number [facility] [address] [place] [address], [place] * (ABNORMAL) PLATELET COUNT (01/15/2024 6:02 AM CDT) PLATELET COUNT 166 140 - 440 thou/cu mm 01/15/2024 6:44 AM CDT [facility] MPV 11.2(H) 6.5 - 11.0 fL 01/15/2024 6:44 AM CDT [facility] Blood BLOOD SPECIMEN / Unknown Venipuncture / Unknown 01/15/2024 6:02 AM CDT 01/15/2024 6:26 AM CDT Fabrizio Montano MD HEMATOLOGY Performing Organization Address City/[facility]/ZIP Co de Phone Number [facility] [address] [place] [address], [place] * WHITE BLOOD COUNT (01/15/2024 6:02 AM CDT) WHITE BLOOD COUNT 4.9 4.5 - 11.0 thou/cu mm 01/15/2024 6:44 AM CDT [facility] NRBC 0.0 % 01/15/2024 6:44 AM CDT [facility] ABS NRBC 0.0 thou /cu mm 01/15/2024 6:44 AM CDT [facility] Blood BLOOD SPECIMEN / Unknown Venipuncture / Unknown 01/15/2024 6:02 AM CDT 01/15/2024 6:26 AM CDT Fabrizio Montano MD HEMATOLOGY Performing Organization Address [facility] Co de Phone Number [facility] [address] [place] [address], [place] * Sodium AM (01/15/2024 6:02 AM CDT) SODIUM 142 136 - 145 mmol/L 01/15/2024 7:13 AM CDT [facility] Blood BLOOD SPECIMEN / Unknown Venipuncture / Unknown 01/15/2024 6:02 AM CDT 01/15/2024 6:27 AM CDT Fabrizio Montano MD CHEMISTRY Performing Organization Address City/[facility]/ZIP Co de Phone Number [facility] [address] [place] [address], [place] * Potassium AM (01/15/2024 6:02 AM CDT) Only the most recent of3 resultswithin the time period is included. POTASSIUM 4.4 3.5 - 5.1 mmol/L 01/15/2024 7:13 AM CDT [facility] Blood BLOOD SPECIMEN / Unknown Venipuncture / Unknown 01/15/2024 6:02 AM CDT 01/15/2024 6:27 AM CDT Fabrizio Montano MD CHEMISTRY [facility] [address] [place] [address], * SCAN-CARDIAC STRIP (01/14/2024 7:07 AM CDT) Scanner OTHER * (ABNORMAL) CBC W PLT NO DIFF (01/14/2024 5:28 AM CDT) WHITE BLOOD COUNT 8.5 4.5 - 11.0 thou/cu mm 01/14/2024 6:33 AM CDT [facility] RED BLOOD COUNT 3.04(L) 4.00 - 5.20 mil/cu mm 01/14/2024 6:33 AM CDT [facility] HEMOGLOBIN 8.9(L) 12.0 - 16.0 g/dL 01/14/2024 6:33 AM T [facility] HEMATOCRIT 27.5(L) 33.0 - 51.0 % 01/14/2024 6:33 AM T [facility] MCV 91 80 - 100 fL 01/14/2024 6:33 AM CDT [facility] MCH 29.3 26.0 - 34.0 pg 01/14/2024 6:33 AM CDT [facility] MCHC 32.4 32.0 - 36.0 g/dL 01/14/2024 6:33 AM T [facility] RDW 14.4 11.5 - 15.5 % 01/14/2024 6:33 AM T [facility] PLATELET COUNT 198 140 - 440 thou/cu mm 01/14/2024 6:33 AM CDT [facility] MPV 11.4(H) 6.5 - 11.0 fL 01/14/2024 6:33 AM CDT [facility] NRBC 0.0 % 01/14/2024 6:33 AM CDT [facility] ABS NRBC 0.0 thou /cu mm 01/14/2024 6:33 AM CDT [facility] Blood BLOOD SPECIMEN / Unknown Non-Lab Venipuncture / Unknown 01/14/2024 5:28 AM CDT 01/14/2024 6:31 AM CDT Barbara Holcomb NP HEMATOLOGY Performing Organization Address City/[facility]/ZIP Co de Phone Number [facility] [address] [place] [phone], [place] * (ABNORMAL) CALCIUM IONIZED HOSPITAL DRAW ONLY (01/14/2024 5:28 AM CDT) Only the most recent of3 resultswithin the time period is included. CALCIUM,IONIZE D 1.30(H) 1.15 - 1.27 mmol/L 01/14/2024 6:03 AM CDT [facility] Blood BLOOD SPECIMEN / Unknown Non-Lab Venipuncture / Unknown 01/14/2024 5:28 AM CDT 01/14/2024 5:49 AM CDT Grace Eldridge MD CHEMISTRY [facility] [address] [place] [address], [place] * ECHO TTE COMPLETE W CONTRAST (01/13/2024 3:56 PM CDT) AORTIC VALVE MEAN PG 7 mmHg EJECTION FRACTION 64 % LVEDD 4.1 cm EJECTION FRACTION 60 - 65% Anatomical Region Laterality Modality Ultrasound 01/13/2024 2:53 PM CDT Narrative 01/13/2024 4:39 PM CDT ECHOCARDIOGRAM MIKAYLA KUHN ? Accession#: ?? [id number] : ?1960 63 years Study Date: ?? 01/13/2024 2:53:14 PM Gender: F ?BP: ? 114/44 mmHg Height: 152.00 cm ?BSA: ?1.93 m? ? ? Weight: 98.00 kg ? Tech: ? KBA ? Referring MD: BARBARA HOLCOMB Site: ? [facility] Reading Location: [facility] Patient Location: Inpatient. Procedure: 2D w/ [...] documentation: 2 ml diluted Definity, lot #[id number], [facility]# [id number] was administered peripherally to enhance visualization of all left ventricular segments. . This study was interpreted by an [facility] accredited facility. ??Final ?? Procedure Note Travon Blood MD - 01/13/2024 ECHOCARDIOGRAM MIKAYLA KUHN : 1960 63 years Study Date: 01/13/2024 2:53:14 PM Gender: F BP: 114/44 mmHg Height: 152.00 cm BSA: 1.93 m? ? ? Weight: 98.00 kg Tech: PASQUALE Referring MD: BARBARA HOLCOMB Site: [facility] Reading Location: [facility] Patient Location: Inpatient. Procedure: 2D w/ [...] documentation: 2 ml diluted Definity, lot #[id number], [facility]#[id number] was administered peripherally to enhance visualization of allleft ventricular segments. . This study was interpreted by an [facility] accredited facility. Final Barbara Holcomb DELIVERY ASSOCIATE ECHO ORD * US ARTERIAL LOWER EXTREMITY [...] 125 mmHg Left Brachial: 111 mmHg Right SENIOR REPORT DEVELOPER: Noncompressible Right DPA: 115 mmHg (SAMUEL 0.92) Left SENIOR REPORT DEVELOPER: Noncompressible Left DPA: Noncompressible SAMUEL: 1.0-1.4 - normal 0.9-0.99 - borderline 0.80-0.89 - mild 0.50-0.79 - moderate 0.30-0.49 - severe < 0.30 - critical RIGHT: INCOME TAX ADVISOR PROX: 204 cm/sec; triphasic waveforms INCOME TAX ADVISOR DIST: 138 cm/sec; triphasic waveforms PFA: 97 cm/sec; triphasic waveforms SFA PROX: 140, 111 cm/sec; triphasic waveforms SFA MID: 113, 74 cm/sec; triphasic waveforms SFA DIST: 107, 113 cm/sec; triphasic waveforms POP PROX: 105 cm/sec; triphasic waveforms POP DIST: 89 cm/sec; triphasic waveforms SENIOR REPORT DEVELOPER: 32 cm/sec; triphasic waveforms KAITLYN: 58 cm/sec; triphasic waveforms DPA: 56 cm/sec; triphasic waveforms LEFT: INCOME TAX ADVISOR PROX: 193 cm/sec; triphasic waveforms INCOME TAX ADVISOR DIST: 152 cm/sec; triphasic waveforms PFA: 98 cm/sec; triphasic waveforms SFA PROX: 119, 109 cm/sec; triphasic waveforms SFA MID: 103, 102 cm/sec; triphasic waveforms SFA DIST: 103, 100 cm/sec; triphasic waveforms POP PROX: 124 cm/sec; triphasic waveforms POP DIST: 85 cm/sec; triphasic waveforms SENIOR REPORT DEVELOPER: 169 cm/sec; triphasic waveforms KAITLYN: 91 cm/sec; [...] 125 mmHg Left Brachial: 111 mmHg Right SENIOR REPORT DEVELOPER: Noncompressible Right DPA: 115 mmHg (SAMUEL 0.92) Left SENIOR REPORT DEVELOPER: Noncompressible Left DPA: Noncompressible SAMUEL: 1.0-1.4 - normal 0.9-0.99 - borderline 0.80-0.89 - mild 0.50-0.79 - moderate 0.30-0.49 - severe < 0.30 - critical RIGHT: INCOME TAX ADVISOR PROX: 204 cm/sec; triphasic waveforms INCOME TAX ADVISOR DIST: 138 cm/sec; triphasic waveforms PFA: 97 cm/sec; triphasic waveforms SFA PROX: 140, 111 cm/sec; triphasic waveforms SFA MID: 113, 74 cm/sec; triphasic waveforms SFA DIST: 107, 113 cm/sec; triphasic waveforms POP PROX: 105 cm/sec; triphasic waveforms POP DIST: 89 cm/sec; triphasic waveforms SENIOR REPORT DEVELOPER: 32 cm/sec; triphasic waveforms KAITLYN: 58 cm/sec; triphasic waveforms DPA: 56 cm/sec; triphasic waveforms LEFT: INCOME TAX ADVISOR PROX: 193 cm/sec; triphasic waveforms INCOME TAX ADVISOR DIST: 152 cm/sec; triphasic waveforms PFA: 98 cm/sec; triphasic waveforms SFA PROX: 119, 109 cm/sec; triphasic waveforms SFA MID: 103, 102 cm/sec; triphasic waveforms SFA DIST: 103, 100 cm/sec; triphasic waveforms POP PROX: 124 cm/sec; triphasic waveforms POP DIST: 85 cm/sec; triphasic waveforms SENIOR REPORT DEVELOPER: 169 cm/sec; triphasic waveforms KAITLYN: 91 cm/sec; [...] 01/14/2024 2:34:58 AM (Electronically Signed) Barbara Holcomb DELIVERY ASSOCIATE US * XR FOOT 3 VIEWS LEFT [...] tissue wound is not marked. Freya Schafer DELIVERY ASSOCIATE GENERAL IMAGI NG * (ABNORMAL) AEROBIC BACTERIAL CULTURE, STAIN (01/13/2024 11:49 AM CDT) CULTURE RESULT(A) 01/16/2024 2:[address] [facility] CULTURE 3+ Corynebacterium striatum 01/16/2024 2:[address] [facility] CULTURE 2+ Mixed oni present 01/16/2024 2:44 PM CDT [facility] GRAM STAIN No PMNs 01/16/2024 2:[address] [facility] GRAM STAIN 2+ RBCs 01/16/2024 2:[address] [facility] GRAM STAIN No Epithelial cells 01/15 2:[address] [facility] GRAM STAIN 2+ Gram Positive Bacilli 01/16/2024 2:44 PM CDT [facility] Other (Other) Non-Blood / Unknown 01/13/2024 11:49 AM CDT 01/13/2024 12:00 PM CDT Narrative [facility] - 01/16/2024 2:44 PM CDT Mixed oni; No Staphylococcus aureus, beta-Streptococcus, Streptococcus pneumoniae, or Pseudomonas aeruginosa isolated. Freya Schafer NP MICROBIOLOGY Performing Organization Address [facility]/ZIP Co de Phone Number [facility] [address] [address], [place] * ANAEROBIC CULTURE (01/13/2024 11:49 AM CDT) CULTURE No anaerobes isolated 01/19/2024 10:01 AM CDT [facility] Other (Other) Non-Blood / Unknown 01/13/2024 11:49 AM CDT 01/13/2024 12:00 PM CDT Freya Schafer NP MICROBIOLOGY Performing Organization Address [facility] Co de Phone Number [facility] [address] [phone], [place] * (ABNORMAL) Electrolytes Panel - DKA (01/13/2024 10:53 AM CDT) Only the most recent of3 resultswithin the time period is included. SODIUM 140 136 - 145 mmol/L 01/13/2024 11:36 AM CDT [facility] POTASSIUM 5.2(H) 3.5 - 5.1 mmol/L 01/13/2024 11:36 AM CDT [facility] CHLORIDE 107 98 - 107 mmol/L 01/13/2024 11:36 AM CDT [facility] CO2,TOTAL 21(L) 22 - 29 mmol/L 01/13/2024 11:36 AM CDT [facility] ANION GAP 12 5 - 18 01/13/2024 11:36 AM CDT [facility] Blood BLOOD SPECIMEN / Unknown Non-Lab Venipuncture / Unknown 01/13/2024 10:53 AM CDT 01/13/2024 11:01 AM CDT Ifeanyi Hernández RN CHEMISTRY Performing Organization Address [facility]/ZIP Co de Phone Number [facility] [address] [place] [phone], [place] * SCAN-CARDIAC STRIP (01/13/2024 8:00 AM CDT) Scanner OTHER * MAGNESIUM (01/13/2024 4:22 AM CDT) Only the most recent of2 resultswithin the time period is included. MAGNESIUM 1.9 1.6 - 2.4 mg/dL 01/13/2024 5:07 AM CDT [facility] Blood BLOOD SPECIMEN / Unknown Non-Lab Venipuncture / Unknown 01/13/2024 4:22 AM CDT 01/13/2024 4:41 AM CDT Ifeanyi Hernández RN CHEMISTRY Performing Organization Address City/[facility]/ZIP Co de Phone Number [facility] [address] [place] [address], * (ABNORMAL) Serum Glucose - DKA (01/13/2024 1:52 AM CDT) Only the most recent of2 resultswithin the time period is included. GLUCOSE,RANDOM 459(H) 70 - 139 mg/dL 01/13/2024 2:46 AM CDT [facility] Blood BLOOD SPECIMEN / Unknown Non-Lab Venipuncture / Unknown 01/13/2024 1:52 AM CDT 01/13/2024 2:03 AM CDT Emily Guzman MD CHEMISTRY [facility] [address] [place] [address], * (ABNORMAL) TROPONIN T (HS) ONE TIME (01/12/2024 11:39 PM CDT) TROPONIN T HS 45(H) 6-10 ng/L ng/L 01/13/2024 12:22 AM CDT [facility] Blood BLOOD SPECIMEN / Unknown Non-Lab Venipuncture / Unknown 01/12/2024 11:39 PM CDT 01/12/2024 11:45 PM CDT Emily Guzman MD CHEMISTRY Performing Organization Address City/[facility]/ZIP Co de Phone Number [facility] [address] [place] [address], [place] * 12 Lead EKG (01/12/2024 10:16 PM CDT) Pathologist [facility] Interpretation Normal sinus rhythm Left axis deviation Abnormal ECG When compared with ECG of 02-Jan-2019 02:01, Nonspecific T wave abnormality now evident in Lateral leads BEYOND NOW Ventricular Rate 78 BPM BEYOND NOW Atrial Rate 78 BPM BEYOND NOW P-R Interval 160 ms BEYOND NOW QRS Duration 82 ms BEYOND NOW QT 400 ms BEYOND NOW QTc 456 ms BEYOND NOW P Langford 72 degrees BEYOND NOW R Langford -31 degrees BEYOND NOW T Langford 69 degrees BEYOND NOW 01/12/2024 10:1 6 PM CDT 01/13/2024 8:20 PM CDT Emily Guzman MD EKG ORD Performing Organization Address [facility] Co de Phone Number BEYOND NOW [place], [place] * MRSA/SA PCR (01/12/2024 10:07 PM CDT) [facility] MRSA DNA PCR Negative Negative 01/12/2024 11:33 PM CDT [facility] STAPHYLOCOCCUS AUREUS PCR Negative Negative 01/12/2024 11:33 PM CDT [facility] Other SPECIMEN FROM INTERNAL NOSE / Unknown Non-Blood / Unknown 01/12/2024 10:07 PM CDT 01/12/2024 10:13 PM CDT Narrative [facility] - 01/12/2024 11:33 PM CDT Test result does not preclude MRSA or SA nasal colonization. Chaparro Sneed DO MICROBIOLOGY Performing Organization Address City/[facility]/ZIP Co de Phone Number [facility] [address] [place] [address], [place] * (ABNORMAL) Urine Culture (01/12/2024 10:07 PM CDT) CULTURE RESULT(A) 01/16/2024 6:58 AM CDT [facility] CULTURE 10,000-50,000 CFU/mL Proteus mirabilis 01/16/2024 6:58 AM CDT [facility] CULTURE 50,000-100,000 CFU/mL Danita albicans 01/16/2024 6:58 AM CDT [facility] Urine URINE SPECIMEN / [...] Emily Guzman MD MICROBIOL OGY [facility] [address] [place] [address], * Blood Culture (01/12/2024 9:40 PM CDT) Only the most recent of2 resultswithin the time period is included. CULTURE No Growth. 01/16/2024 11:23 PM CDT [facility] Blood BLOOD SPECIMEN / Unknown Venipuncture / Unknown 01/12/2024 9:40 PM CDT 01/12/2024 9:52 PM CDT Narrative [facility] - 01/16/2024 11:23 PM CDT Low volume blood culture received; possible false negative culture. Emily Guzman MD MICROBIOL OGY [facility] [address] [place] [address], * (ABNORMAL) TROPONIN T(HS) ACUTE W/2HR REFLEX (01/12/2024 9:37 PM CDT) TROPONIN T HS 47(H) 6-10 ng/L ng/L 01/12/2024 10:16 PM CDT [facility] Blood BLOOD SPECIMEN / Unknown Non-Lab Venipuncture / Unknown 01/12/2024 9:37 PM CDT 01/12/2024 9:46 PM CDT Narrative [facility] - 01/12/2024 10:16 PM CDT hs-cTnT [...] department patient population. Emily Guzman MD CHEMISTRY [facility] [address] [place] [address], * (ABNORMAL) CBC WITH AUTO DIFFERENTIAL (01/12/2024 9:37 PM CDT) WHITE BLOOD COUNT 14.9(H) 4.5 - 11.0 thou/cu mm 01/12/2024 9:54 PM CDT [facility] RED BLOOD COUNT 3.61(L) 4.00 - 5.20 mil/cu mm 01/12/2024 9:54 PM CDT [facility] HEMOGLOBIN 10.5(L) 12.0 - 16.0 g/dL 01/12/2024 9:54 PM CDT [facility] HEMATOCRIT 32.6(L) 33.0 - 51.0 % 01/12/2024 9:54 PM CDT [facility] MCV 90 80 - 100 fL 01/12/2024 9:54 PM CDT [facility] MCH 29.1 26.0 - 34.0 pg 01/12/2024 9:54 PM CDT [facility] MCHC 32.2 32.0 - 36.0 g/dL 01/12/2024 9:54 PM CDT [facility] RDW 13.2 11.5 - 15.5 % 01/12/2024 9:54 PM CDT [facility] PLATELET COUNT 273 140 - 440 thou/cu mm 01/12/2024 9:54 PM CDT [facility] MPV 11.0 6.5 - 11.0 fL 01/12/2024 9:54 PM CDT [facility] NRBC 0.0 % 01/12/2024 9:54 PM CDT [facility] ABS NRBC 0.0 thou /cu mm 01/12/2024 9:54 PM CDT [facility] % NEUT 80.3 % 01/12/2024 9:54 PM CDT [facility] % LYMPH 9.6 % 01/12/2024 9:54 PM CDT [facility] % MONO 9.2 % 01/12/2024 9:54 PM CDT [facility] % EOS 0.1 % 01/12/2024 9:54 PM CDT [facility] % BASO 0.1 % 01/12/2024 9:54 PM CDT [facility] % IMMATURE GRAN (METAS,MYELOS,VA OS) 0.7 % 01/12/2024 9:54 PM CDT [facility] ABSOLUTE NEUTROPHILS 12.0(H) 1.7 - 7.0 thou/cu mm 01/12/2024 9:54 PM CDT [facility] ABSOLUTE LYMPHOCYTES 1.4 0.9 - 2.9 thou/cu mm 01/12/2024 9:54 PM CDT [facility] ABSOLUTE MONOCYTES 1.4(H) <0.9 thou/cu mm 01/12/2024 9:54 PM [facility]T [facility] ABSOLUTE EOSINOPHILS 0.0 <0.5 thou/cu mm 01/12/2024 9:54 PM CDT [facility] ABSOLUTE BASOPHILS 0.0 <0.3 thou/cu mm 01/12/2024 9:54 PM CDT [facility] ABSOLUTE IMMATURE GRANULOCYTES(MET ,MYELOS,PROS) 0.1 <0.3 thou/cu mm 01/12/2024 9:54 PM CDT [facility] Blood BLOOD SPECIMEN / Unknown Non-Lab Venipuncture / Unknown 01/12/2024 9:37 PM CDT 01/12/2024 9:46 PM CDT Emily Guzman MD HEMATOLOG Y [facility] [address] [place] [address], * (ABNORMAL) BLOOD GAS,VENOUS (01/12/2024 9:37 PM CDT) PH, VENOUS 7.25(L) 7.32 - 7.43 01/12/2024 9:52 PM CDT [facility] PCO2, VENOUS 44 41 - 51 mmHg 01/12/2024 9:52 PM CDT [facility] PO2, VENOUS 48(H) 35 - 40 mmHg 01/12/2024 9:52 PM CDT [facility] HCO3,VENOUS 19(L) 22 - 29 mmol/L 01/12/2024 9:52 PM CDT [facility] BASE EXCESS, VENOUS, POCT -7.7(L) -2.0 - 3.0 01/12/2024 9:52 PM CDT [facility] O2 SATURATION, VENOUS 85(H) 70 - 75 % 01/12/2024 9:52 PM CDT [facility] INSPIRED O2 21 01/12/2024 9:52 PM CDT [facility] Comment:Unit of Measure: Lit ers (L) if <=20; Percent (%) if >20 PATIENT TEMPERATURE 36.9 Degrees C 01/12/2024 9:52 PM CDT [facility] Blood VENOUS BLOOD SPECIMEN / Unknown Non-Lab Venipuncture / Unknown 01/12/2024 9:37 PM CDT 01/12/2024 9:46 PM CDT Emily Guzman MD CHEMISTRY Performing Organization Address [facility] Co de Phone Number [facility] [address] [place] [address], [place] * Protime - INR (01/12/2024 9:37 PM CDT) INR 1.0 <1.3 01/12/2024 9:56 PM CDT [facility] PROTIME 11.5 10.3 - 12.3 sec 01/12/2024 9:56 PM CDT [facility] Blood BLOOD SPECIMEN / Unknown Non-Lab Venipuncture / Unknown 01/12/2024 9:37 PM CDT 01/12/2024 9:46 PM CDT Narrative [facility] - 01/12/2024 9:56 PM CDT [...] Guzman MD HEMATOLOG Y Performing Organization Address [facility] Co de Phone Number [facility] [address] [place] [id number], [place] * (ABNORMAL) HEMOGLOBIN A1C MONITORING (POCT) (01/12/2024 9:37 PM CDT) Only the most recent of2 resultswithin the time period is included. [facility] HEMOGLOBIN A1C MONITORING (POCT) 9.3(H) <=6.4 % 01/14/2024 10:29 AM CDT [facility] Blood BLOOD SPECIMEN / Unknown Non-Lab Venipuncture / Unknown 01/12/2024 9:37 PM CDT 01/12/2024 9:46 PM CDT Narrative [facility] - 01/14/2024 10:29 AM CDT [...] Anemias, Splenectomy ? Barbara Holcomb NP CHEMISTRY [facility] [address] [place] [address], * (ABNORMAL) Hepatic Function Panel (01/12/2024 9:37 PM CDT) [facility] ALBUMIN 3.2(L) 4.0 - 4.9 g/dL 01/12/2024 10:16 PM CDT [facility] PROTEIN,TOTAL 6.4 6.0 - 8.0 g/dL 01/12/2024 10:16 PM CDT [facility] BILIRUBIN,TOTAL 0.2 0.0 - 1.2 mg/dL 01/12/2024 10:16 PM CDT [facility] BILIRUBIN,DIRECT <0.2 0.0 - 0.3 mg/dL 01/12/2024 10:16 PM CDT [facility] BILIRUBIN,INDIRE CT 01/12/2024 10:16 PM CDT [facility] Comment:Unable to calculate, Direct Bili <0.2 ALK PHOSPHATASE 122(H) 35 - 104 IU/L 01/12/2024 10:16 PM CDT [facility] ALT (SGPT) 21 10 - 35 IU/L 01/12/2024 10:16 PM CDT [facility] AST (SGOT) 20 10 - 35 IU/L 01/12/2024 10:16 PM CDT [facility] Blood BLOOD SPECIMEN / Unknown Non-Lab Venipuncture / Unknown 01/12/2024 9:37 PM CDT 01/12/2024 9:46 PM CDT Emily Guzman MD CHEMISTRY [facility] [address] [place] [address], * SCAN-CARDIAC STRIP (01/12/2024 9:20 PM CDT) [...] health care provider. XR MAMMO BILAT SCREENING [[id number]] CLINICAL HISTORY: ??This is an asymptomatic 61 y.o. patient. INDICATION FOR EXAM: Mammogram Screening. TECHNIQUE: CC & MLO views were obtained. ??This study was evaluated with the assistance of Computer-Aided Detection. COMPARISON FILM: Yes 03/02/18 [facility] 07/26/13 [facility] FINDINGS: ??The breasts are extremely dense, which lowers the sensitivity of mammography. There are no dominant masses, suspicious micro calcifications or areas of architectural distortion. Shania Montiel MD MAMMO * LIPID PANEL W REFLEX MEASURED LDL (04/28/2022 1:44 PM CDT) CHOLESTEROL,TOTAL 139 100 - 199 mg/dL 04/30/2022 6:25 PM CDT [facility] TRIGLYCERIDES 141 <150 mg/dL 04/30/2022 6:25 PM CDT [facility] HDL CHOLESTEROL 42 >40 mg/dL 6:25 PM CDT [facility] NON-HDL CHOLESTEROL 97 <145 mg/dl 04/30/2022 6:25 PM CDT [facility] CHOL/HDL RATIO 3.31 <4.50 04/30/2022 6:25 PM CDT [facility] LDL CHOLESTEROL 69 <=130 mg/dL 04/30/2022 6:25 PM CDT [facility] VLDL CHOLESTEROL 28 <=30 mg/dL 04/30/2022 6:25 PM CDT [facility] PROVIDER ORDERED STATUS RANDOM 04/30/2022 6:25 PM CDT [facility] Blood BLOOD SPECIMEN / Unknown Venipuncture / Unknown 04/28/2022 1:44 PM CDT 04/28/2022 1:45 PM CDT Shania Montiel MD [facility] [address] [place] [address], * FECAL DNA (AKA COLOGUARD) (11/10/2021 1:00 PM CDT) Shania Montiel MD COMMUNICATION ORD * ANTI HCV [[id number]] (02/16/2018 4:20 PM CDT) Pathologist [facility] HEPATITIS C ANTIBODY Non-React alex Non-React alex 02/17/2018 2:48 PM CDT [facility] Comment:Antibodies to HCV no t detected; does not exclude the possibility of exposure to HCV. Blood BLOOD SPECIMEN / Unknown Butterfly / Unknown 02/16/2018 4:20 PM CDT 02/16/2018 4:20 PM CDT Coleman Plata MD SEND OUTS Performing Organization Address City/[facility]/ZIP Co de Phone Number [facility] [address] [place] [address], * HIV 1&2 TODAY (07/21/2015 9:40 AM DRILL PRESS SET UP OPERATOR) [facility] HIV-1/HIV-2 ANTIBODY Non-Reacti ve Non-Reacti ve 07/21/2015 10:31 AM DRILL PRESS SET UP OPERATOR [facility] Blood specimen (specimen) BLOOD SPECIMEN / Unknown Venipuncture / Unknown 07/21/2015 9:40 AM DRILL PRESS SET UP OPERATOR 07/21/2015 9:47 AM DRILL PRESS SET UP OPERATOR Narrative [facility] - 07/21/2015 10:31 AM DRILL PRESS SET UP OPERATOR HIV-1 p24 and HIV-1/HIV-2 Ab not detected Kait Morales DO SEND OUTS [facility] [address] [place] [address], * SAILING OFFICER THIN PREP PAP SCREEN IMAGED (08/17/2012 4:02 PM DRILL PRESS SET UP OPERATOR) [facility] CYTOLOGY CYTOPATHOLOGY REPORT [facility] Status: Final Status ?[id number] CLINICAL INFORMATION Last Date of LMP ? :07/03/2012 Last Pap Date ?:02/01/2011 Last Pap Result ?:NIL ABN [place]/Bx Past 5 YRS :None Hormone Usage ?:BCP/OCP/Patch/R ing Menstrual Status ? :Regular Periods [place]/Bx done today ? :No Additional Information :None given HPV Request ?:HPV if ASCUS SPECIMEN SOURCE ?:Cervical/vagina l ThinPrep Vial, screening SPECIMEN ADEQUACY ?:Satisfactory for evaluation No endocervical ? component seen. INTERPRETATION/RES ULT Negative for intraepithelial lesion or malignancy (NIL) Cytology 1st Screener ??:cam Signed by ?:cam This specimen was screened by the FDA approved Prescription EyewearPrep Imaging System and manually reviewed. NOTE: ??The [...] specimen (specimen) (Cervical/Vagina l) 08/17/2012 4:02 PM DRILL PRESS SET UP OPERATOR 08/17/2012 4:00 PM DRILL PRESS SET UP OPERATOR Coleman Plata MD PATHOLOGY/CYTOLOGY [facility] INTERNAL ZIP [address] [place], [place] [id number] from Last 3 Months or Most Recently [...] Urine earlier this year (per report from [facility], not available in CareEverywhere), 04/19/18 L cheek abscess exclusions for contact precaution discontinuation (if > 12 months since positive culture): resides in acute/senior living care, receiving hemodialysis, has chronic open wounds/skin [...] 8:01 PM 07/15/2012 6:55 PM Care Teams Leach Cell Operator Relationship Specialty Start Date End Date Barbara Valentin DO [address] [place] [address] PCP - General Family Practice 11/15/22 Julio Ibrahim MD [address] [place] [address] [phone] Surgery - Orthopedics 02/01/11 Chuy Doss MD [address] [place] [address] [phone] Surgery - Vascular 02/01/11 Markel Strong MD [address] [place] [address] Provider Family Practice 08/08/20 Nikolai Ibarra MD [address] [facility] [address] [place] [address] Endocrinology 09/07/22 [facility] [place] [address] [place] [id number] 01/17/24 Suad Ng/ [employer] Towel Distributor 07/14/17 [facility] Home Health Nurse 07/01/17 [facility] RESIDENTIAL PROPERTY MANAGER Services Home Health Aide 07/14/17 [facility] Airplane Cabin Attendant/ Ally Christianson [address] [place] [address] Towel Distributor 07/07/17
== END 2024-02-09 15:17 | disposition home or self-care (01) ==
LOC: WOUND 15:16
PROVIDERS: PCP Family Medicine; Visit Provider Nurse Practitioner Family
DX: E11.621 Type 2 diabetes mellitus with foot ulcer (principal); M14.672 Charcot's joint, left ankle and foot; L97.422 Non-pressure chronic ulcer of left heel and midfoot with fat layer exposed; Z79.4 Long term (current) use of insulin
CPT/HCPCS: 15275; Q4101

== ENCOUNTER 2024-02-16 15:07 | Outpatient (CLI) | payer OTHER, SELFPAY ==
--- OUTSIDE RECORDS SUMMARY | 2024-02-16 15:09 | XMS_ITS | Encounter Summary ---
Author Organization [facility] [place] Address [address] [place] [address] Care Team Providers Care Aeronautical Inspector Name Role Phone Barbie Barbaraesteban Gomez DO Primary Care Provider Kevin zepeda Encounter Details Date Type Department Care Team (Late st Contact Info) Description 01/23/2024 Documentation Only [facility] [place] [address] [place] [address] Ronnell Kirby [address] [place] [address] Social History Tobacco Use Types [...] ORDERAB LES Performing Organization Address [facility]/ZIP Co de Phone Number [facility] * (ABNORMAL) Creatine (01/17/2024) Creatine, Serum 1.28(H) [facility] GFR Calculated 47(L) [facility] Blood (Blood, Venous) 01/17/2024 Historical Provider MD LAB BLOOD ORDERAB LES Performing Organization Address [facility]/State/ZIP Co de Phone Number [facility] * (ABNORMAL) Creatine (01/16/2024) Creatine, Serum 1.28(H) [facility] GFR Calculated 47(L) [facility] Blood (Blood, Venous) 01/16/2024 Historical Provider MD LAB BLOOD ORDERAB LES Performing Organization Address [facility] [[email or web address]] de Phone Number [facility] * (ABNORMAL) Creatine (01/15/2024) Pathologist [facility] Creatine, Serum 1.71(H) [facility] GFR Calculated 34(L) [facility] Blood (Blood, Venous) 01/15/2024 Historical Provider MD LAB BLOOD ORDERAB LES Performing Organization Address [facility] Phone Number [facility] * (ABNORMAL) Hemoglobin (01/15/2024) Pathologist [facility] Hemoglobin 8.4(L) g/dL [facility] MCV 91.0 [facility] Blood (Blood, Venous) 01/15/2024 Historical Provider MD LAB BLOOD ORDERAB LES Performing Organization Address [email or web address]] de Phone Number [facility] * (ABNORMAL) Basic Metabolic Panel (BMP) (01/14/2024) Pathologist [facility] Sodium 144 mEq/L [facility] Potassium 4.4 mEq/L [facility] Chloride 112(H) [facility] Carbon Dioxide 23 mmol/L [facility] Calcium 8.4(L) mg/dL [facility] BUN 57(H) mg/dL [facility] Creatinine 2.61(H) mg/dL [facility] Glucose 179(H) mg/dL [facility] eGFR 20(L) [facility] Anion Gap 9 [facility] 01/14/2024 Historical Provider MD LAB BLOOD ORDERAB LES Performing Organization Address [facility] [[email or web address]] de Phone Number [facility] * (ABNORMAL) CBC (01/14/2024) WBC 8.5 K/uL [facility] Red Blood Cell Count 3.04(L) [facility] Hemoglobin 8.9(L) g/dL [facility] Hematocrit 27.5(L) % [facility] MCV 91 [facility] MCH 29.3 [facility] MCHC 32.4 [facility] RDW 14.4 [facility] Platelet Count 198 [facility] MPV 11.4(H) [facility] Blood (Blood, Venous) 01/14/2024 Historical Provider MD LAB BLOOD ORDERAB LES Performing Organization Address [facility] Co de Phone Number [...] ORDERAB LES Performing Organization Address [facility] Co de Phone Number [...] ORDERAB LES Performing Organization Address [facility] Co de Phone Number [...] on filedocumented in this encounter Care Teams Aeronautical Inspector Relationship Specialty Start Date End Date Barbara Valentin DO [address] [place] [address] PCP - General Family Medicine 09/22/23 documented as of this encounter
--- OUTSIDE RECORDS SUMMARY | 2024-02-16 15:09 | XMS_ITS | Encounter Summary ---
Author Organization [facility] [place] [place] Address [address] [place] [address] Care Team Providers Care Transcript Evaluator Name Role Phone Barbara Valentin Primary Care Provider Kevin zepeda Encounter Details Date Type Department Care Team (Late st Contact Info) Description 11/10/2023 Documentation Only [facility] [place] [address] Dave Hurst [address] [place] [address] Social History Tobacco Use Types [...] LAB BLOOD ORDERAB LES Performing Organization Address [facility] [[email or web address]] Co de Phone Number [place] * (ABNORMAL) [...] LAB BLOOD ORDERAB LES Performing Organization Address [facility]/ZIP Co de Phone Number [facility] * [...] LAB BLOOD ORDERAB LES Performing Organization Address [facility] [[email or web address]] Co de Phone Number [facility] * (ABNORMAL) [...] LAB BLOOD ORDERAB LES Performing Organization Address City/[facility]/ZIP Co de Phone Number [facility] documented in this encounter Visit Diagnoses Not on filedocumented in this encounter Care Teams Transcript Evaluator Relationship Specialty Start Date End Date Barbara Valentin DO [address] [place] [address] PCP - General Family Medicine 09/22/23 documented as of this encounter
--- OUTSIDE RECORDS SUMMARY | 2024-02-16 15:09 | XMS_ITS | Encounter Summary ---
Author Organization [facility] Address [address] [place] [address] Care Team Providers Care Toddler Lead Teacher Name Role Phone Barbara Valentin DO Primary Care Provider Kevin zepeda Encounter Details Date Type Department Care Team (Late st Contact Info) Description 01/23/2024 Office Communication [facility] [place] [address] [place] [address] Ronnell Kirby [address] [place] [address] Social History Tobacco Use Types [...] on filedocumented in this encounter Care Teams Toddler Lead Teacher Relationship Specialty Start Date End Date Barbara [place] [address] PCP - General Family Medicine 09/22/23 documented as of this encounter
--- OUTSIDE RECORDS SUMMARY | 2024-02-16 15:09 | XMS_ITS | Encounter Summary ---
Author Organization [facility] Address [address] [place] [address] Care Team Providers Care Application Performance Engineer Name Role Phone Barbie Barbaraesteban Gomez DO Primary Care Provider Kevin zepeda Encounter Details Date Type Department Care Team (Late st Contact Info) Description 02/01/2024 Telephone [facility] [place] [address] [place] [address] Gabriel Hicks MD [address] [place] [address] Social History Tobacco Use Types [...] * Telephone Encounter - Katie Owen - 02/16/2024 9:03 AM CDT Mailed the Established PT Missed/Canceled letter to the patient to reschedule their established HFUappointment on 01/31 with HEATHER Barbara. * Telephone Encounter - Katie Owen - 02/01/2024 4:14 PM CDT Staff called patient to confirm with the patient that per [place], patient would like to cancel today's HFU appointment with HEATHER Jimenez. This appointment has been canceled. Unable to LVM. Letter sent to patient. documented in this encounter Plan of Treatment Not on file documented as of this encounter Visit Diagnoses Not on filedocumented in this encounter Care Teams Application Performance Engineer Relationship Specialty Start Date End Date Barbara Valentin DO [address] [place] [address] PCP - General Family Medicine 09/22/23 documented as of this encounter
--- OUTSIDE RECORDS SUMMARY | 2024-02-16 15:09 | XMS_ITS | Encounter Summary ---
Author Organization [facility] Address [address] [place] [address] Care Team Providers Care Field Captain Name Role Phone Barbara Valentin DO Primary Care Provider Kevin zepeda Reason for Visit * Reason Comments CKD New Patient * Nephrology Services (Urgent) - Closed Specialty Diagnoses / Procedures Referred By Contac t Referred To Contact Nephrology Diagnoses Chronic kidney disease stage 4 (HCC) Barbara Valentin DO [address] [place] [address] Elian Humphrey MD [address] [place] [address] Referral ID Status Reason Start Date Expiration Date Visits Re quested Visits Authorized [id number] Closed 09/22/2023 09/21/2024 1 1 Encounter Details Date Type Department Care Team (Latest Contact Info) Description 11/10/2023 3:30 PM EDT Office Visit [facility] [address] [place] [address] Gabriel Hicks MD [address] [place] [address] Chronic kidney disease, stage 4 [...] Hicks/RAFAEL Acosta Welcome to [facility] Although we are experts in the [...] in caring for renal patients. If your Eyeglass Maker deems it appropriate, you will be scheduled [...] healthy, so we do have a Renal Machinist Mechanic to help you with this. We encourage [...] let them know that you see a allopathic doctor for your kidney disease. Ask that they contact your allopathic doctor before this type of test is scheduled. [...] Doctors, Advanced Practice Providers, nurses, and Renal Machinist Mechanic are here to provide you with the best renal care. We want you to feel free to call us when you have questions or concerns. To call the nurse at your allopathic doctor's office, please see the address and telephone number listed on your After Visit Summary. Thank you, The Physicians and staff at [facility] UNDERSTANDING YOUR BLOOD PRESSURE & LAB [...] Mikayla Kuhn Date of : 1960 Chart: [id number] PCP: Barbara Valentin DO Referring Provider: Barbara [...] her close friend who also is her [employer] SALES AND MANAGEMENT. No recent illnesses or hospitalizations. Tolerating her [...] 05/12/2024). Gabriel Hicks MD [facility] The following portions of the patient's chart [...] MG/DOSE powder Yuni Olea MD Inhale 1 [place] into affected nostril(s) each time if needed [...] disease documented in this encounter Care Teams Field Captain Relationship Specialty Start Date End Date Barbara [place] [address] [place] [place] [address] PCP - General Family Medicine 09/22/23 documented as of this encounter
--- OUTSIDE RECORDS SUMMARY | 2024-02-16 15:09 | XMS_ITS | Encounter Summary ---
Author Organization [facility] [place] Address [address] [place] [address] Care Team Providers Care Consultative Sales Associate Name Role Phone Barbara Valentin DO Primary Care Provider Kevin zepeda Encounter Details Date Type Department Care Team (Late st Contact Info) Description 09/22/2023 Documentation Only [facility] [place] [address] [facility] [address] [place] [address] No, Pcp Social History Tobacco [...] on filedocumented in this encounter Care Teams Consultative Sales Associate Relationship Specialty Start Date End Date Barbara Valentin [place] [place] [address] PCP - General Family Medicine 09/22/23 documented as of this encounter
--- OUTSIDE RECORDS SUMMARY | 2024-02-16 15:09 | XMS_ITS | Clinical Summary ---
Author Organization [facility] [place] [place] Address [address] [facility] [place] [address] Phone Care Team Providers Care Android Ios Developer Name Role Phone Sir Valentinesteban Gomez DO [...] One Pack) 3 MG/DOSE powder Inhale 1 [place] into affected nostril(s) each time if needed [...] Team Description 02/01/2024 Telephone [facility] [place] [address] [facility] [address] [place] [address] Gabriel Hicks MD 01/23/2024 Documentation Only [facility] [place] [address] [facility] [address] [place] [address] Ronnell Kirby 01/23/2024 Office Communication [facility] [place] [address] [facility] [address] [place] [address] Ronnell Kirby from Last 3 Months Immunizations Name Administration [...] ORDERAB LES Performing Organization Address [facility] Co de Phone Number [facility] * (ABNORMAL) Creatine (01/17/2024) Only the most recent of3 resultswithin the time period is included. Creatine, Serum 1.28(H) [facility] GFR Calculated 47(L) [facility] Blood (Blood, Venous) 01/17/2024 Historical Provider MD LAB BLOOD ORDERAB LES Performing Organization Address City/[facility]/ZIP Co de Phone Number [facility] * (ABNORMAL) Hemoglobin (01/15/2024) Hemoglobin 8.4(L) g/dL [facility] MCV 91.0 [facility] Blood (Blood, Venous) 01/15/2024 Historical Provider LAB BLOOD ORDERAB LES B[place] * (ABNORMAL) CBC (01/14/2024) Only the most recent of2 resultswithin the time period is included. WBC 8.5 K/uL [facility] Red Blood Cell Count 3.04(L) [facility] Hemoglobin 8.9(L) g/dL [facility] Hematocrit 27.5(L) % [facility] MCV 91 [facility] MCH 29.3 [facility] MCHC 32.4 [facility] RDW 14.4 [facility] Platelet Count 198 [facility] MPV 11.4(H) [facility] Blood (Blood, Venous) 01/14/2024 Historical Provider LAB BLOOD ORDERAB LES BESSY from Last 3 Months Care Teams Android Ios Developer Relationship Specialty Start Date End Date Barbara Valentin DO [address] [place] [address] PCP - General Family Medicine 09/22/23
--- OUTSIDE RECORDS SUMMARY | 2024-02-16 15:10 | XMS_ITS | Clinical Summary ---
Author Organization [employer] [facility] Address [place], [place] [address] Care Team Providers Care Textile Broker Name Role Phone Julio Ibrahim MD Unavailable Chuy Doss MD Unavailable Markel Strong MD Unavailable Nikolai Ibarra MD Unavailable [phone] Barbara Valentin DO Primary Care Provider [phone] [facility], [place] Unavailable Allergies Active Allergy Reactions Criticality Noted [...] u-100 (UltiCare) 1 mL 31 gauge x 5/16Indications:D iabetes mellitus type 1 with complications (HC) For administering insulin at home.FOR ADMINISTERING INSULIN SUBCUTANEOUSLY AT HOME 100 Each 03/02/20 21 Active glucagon (Baqsimi) 3 mg/actuation nasal sprayIndications: patient with diabetes mellitus at risk of hypoglycemia Inhale 1 Gilbert into affected nostril(s) each time if needed for Severe Hypoglycemia. Roll on side and call 911 after administration. 2 Each 11 12/25/19 Active fluticasone (50 mcg per actuation) nasal solution (FLONASE)Indicati ons:Nasal congestion Inhale 1 Gilbert into affected nostril(s) once daily. Inhale 1 Gilbert in the nostril(s) once daily. 16 g 01/12/20 Active CPAPIndications:S caspere obstructive sleep apnea CPAP machine for home [...] 23 Active naloxone (NARCAN) 4 mg/actuation nasal sprayIndications: Chronic, continuous use of opioids INHALE 1 SPRAY INTO AFFECTED NOSTRIL(S) EACH TIME IF NEEDED FOR PATIENT DIFF TO AROUSE OR RESP RATE <8/MIN. ADD. DOSES MAY BE GIVEN EVERY 2-3 MIN. 2 Each 2 01/29/20 Active amLODIPine (NORVASC) 2.5 mg tabletIndications :Essential hypertension Take 1 Tablet (2.5 mg) by mouth two times daily. 180 Tablet 3 02/29/20 Active sennosides-docusa te (Stool Softener-Stimulan t Laxat) (8.6-50 mg) tabletIndications :Chronic constipation TAKE TWO TABLETS BY MOUTH TWO TIMES DAILY NEEDED FOR CONSTIPATION. 360 Tablet 2 04/20/20 Active continuous glucose monitor READER (FreeStyle Elli 2 [place])Indication s:Type 1 diabetes mellitus with other specified complication (HC) To be used to read blood sugars per certified court interpreter's directions. 1 Each 05/19/20 Active blood-glucose meterIndications: Type 1 diabetes mellitus with other specified complication (HC) As directed. Dispense meter, test strips, lancets covered by pt ins. E10.9 IDDM type I - Test 4 times/day. Reason: Unstable diabetes 1 Each 05/19/20 Active blood sugar diagnostic (Blood Glucose Test) stripIndications: Type 1 diabetes mellitus with other specified complication (HC) Test 4 times per day. 400 Each 3 11/16/20 23 Active lancetsIndication s:Type 1 diabetes mellitus with other specified complication (HC) As directed. Test 4 times per day. 400 Each 3 05/19/20 23 Active torsemide (DEMADEX) 20 mg tabletIndications :Hyperkalemia,Loc alized edema TAKE TWO TABLETS BY MOUTH (40MG) ONCE DAILY 60 Tablet 3 09/09/19 24 Active continuous glucose monitor SENSOR KIT (FreeStyle Elli 2 Sensor)Indication s:Type 1 diabetes mellitus with other specified complication (HC) As directed. To be used to read blood sugars per certified court interpreter's directions. 6 Each 3 09/06/19 24 Active omeprazole (PRILOSEC) 20 mg Delayed-Release capsuleIndication s:Chronic GERD Take 1 Capsule (20 mg) by mouth once daily before a meal. 90 Capsule 1 09/06/19 24 Active polyethylene glycoL (MIRALAX) 17 gram/scoop powderIndications :Chronic constipation MIX 17GMS IN 8OZ LIQUID AND DRINK ONCE DAILY NEEDED FOR CONSTIPATION 238 g 2 09/14/19 24 Active metoprolol succinate (TOPROL XL) 25 mg Sustained-Release tabletIndications :HTN (hypertension) TAKE ONE TABLET (25 MG) BY MOUTH ONCE DAILY. 90 Tablet 2 09/22/19 24 Active atorvastatin (LIPITOR) 20 mg tabletIndications :Diabetes mellitus type 1 with complications (HC) Take 1 Tablet (20 mg) by mouth at bedtime. 90 Tablet 3 09/21/19 24 Active cyanocobalamin (VITAMIN B12) 1,000 mcg tabletIndications :B12 deficiency TAKE ONE TABLET BY MOUTH ONCE DAILY 90 Tablet 2 10/11/19 24 Active cholecalciferol (VITAMIN D3) 2,000 unit capsuleIndication s:Vitamin D deficiency Take 1 Capsule (2,000 units) by mouth once daily. 90 Capsule 2 11/30/19 24 Active pen needle, diabetic (NovoFine Plus) 32 gauge x 1/6 ndleIndications:D iabetes mellitus type 1 with complications (HC) Inject subcutaneous. TO USE FOR INSULIN ADMINISTRATION FOUR TIMES DAILY 400 Each 3 12/08/19 24 Active levothyroxine (SYNTHROID) 125 mcg tabletIndications :Hypothyroidism (acquired) Take 1 Tablet (125 mcg) by mouth once daily. 90 Tablet 12/23/19 24 Active cetirizine (ZYRTEC) 5 mg tabletIndications :Wheezing Take 1 Tablet (5 mg) by mouth once daily. 90 Tablet 3 12/29/19 24 Active FLUoxetine (PROZAC) 10 mg capsuleIndication s:Moderate episode of recurrent major depressive disorder (HC) TAKE 1 CAPSULE (10 MG) BY MOUTH ONCE DAILY. 60 Capsule 01/13/20 24 Active buprenorphine 5 mcg/hr (Butrans) 5 mcg/hour transdermal patch Apply 1 Patch on dry, clean, hairless skin once weekly. Active losartan (COZAAR) 25 mg tablet Take 12.5 mg by mouth once daily. Active acetaminophen (TYLENOL) 325 mg tabletIndications :Opioid dependence, uncomplicated (HC) Take 2 Tablets (650 mg) by mouth every 4 hours if needed for Pain or Temp > (Specify) (Temp >100.4 F (38 C)). Max acetaminophen dose: 4000mg in 24 hrs. 01/17/20 24 Active pregabalin (LYRICA) 100 mg capsuleIndication s:Chronic pain syndrome Take 1 Capsule (100 mg) by mouth two times daily. 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 B.I.D. / PRN For O.A. pain or Diabetic P.N. Pain ; max: 2 a day. Use dates: 01/22/24-02/20/24 60 Tablet 01/20/20 24 Active insulin lispro, U-100, (HumaLOG KwikPen Insulin) 100 unit/mL inpn penIndications:Di abetes mellitus type 1 with complications (HC) 6-7 units with each meal , plus Corrective dose insulin as needed, up to 45 units / day 10 mL 3 02/08/20 24 Active DULoxetine (CYMBALTA) 60 mg Delayed-release capsuleIndication s:Adjustment disorder with mixed anxiety and depressed mood,Chronic pain syndrome TAKE ONE CAPSULE BY MOUTH ONCE DAILY 60 Capsule 08/11/20 24 Active DULoxetine (CYMBALTA) 60 mg Delayed-release capsuleIndication s:Adjustment disorder with mixed anxiety and depressed mood,Chronic pain syndrome Take 1 Capsule (60 mg) by mouth once daily. 90 Capsule 3 02/29/20 23 024 Discontinued insulin aspart, U-100, (NOVOLOG FLEXPEN) 100 unit/mL (3 mL) penIndications:Ty pe 1 diabetes mellitus with proliferative retinopathy, macular edema presence unspecified, unspecified laterality, unspecified proliferative retinopathy type (HC) 6-7 units with each meal , plus Corrective dose insulin as needed, up to 45 units / day 01/17/20 24 024 Discontinued(*M edication adjustment) insulin lispro (HUMALOG; ADMELOG) 100 unit/mL injectionIndicati ons:Diabetes mellitus type 1 with complications (HC) INJECT 6-8 UNITS SUBCUTANEOUSLY THREE TIMES DAILY, 4 UNITS TWICE A DAY WITH SNACKING DEPENDING ON CARB INTAKE. NEEDS APPOINTMENT FOR REFILLS. 10 mL 3 02/07/20 24 024 Discontinued(*A vailability/For mulary change/Cost of medication) insulin lispro, U-100, (HUMALOG KWIKPEN; ADMELOG SOLOSTAR) 100 unit/mL inpn penIndications:Di abetes mellitus type 1 with complications (HC) NJECT 6-8 UNITS SUBCUTANEOUSLY THREE TIMES DAILY, 4 UNITS TWICE A DAY WITH SNACKING DEPENDING ON CARB INTAKE. NEEDS APPOINTMENT FOR REFILLS. 30 mL 02/07/20 24 024 Discontinued(*M edication adjustment) insulin aspart, U-100, (NOVOLOG FLEXPEN) 100 unit/mL (3 mL) penIndications:Ty pe 1 diabetes mellitus with proliferative retinopathy, macular [...] substance agreement signed - 10/07/23 10/07/2023 Overview: [facility] Noem[facility] Dennis .................... 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 Hospitalized with ketoacidosis 06/2017 [...] Encounters Date Type Department Care Team Description 02/16/2024 Refill [facility] [address] [place] [address] Toshia Hooks NP Refill Request (oxyCODONE (ROXICODONE) 5 mg immediate release tablet ) 02/16/2024 Home Care Visit [facility] [address] [place] [phone] Nitza Riojas LISW ORNAMENT MAKER HAND - MISSED VISIT 02/15/2024 3:45 PM CDT Home Care Visit [place] [id number] [place] [phone] Coleman Greene, PT PT - DISCIPLINE DISCHARGE 02/15/2024 11:00 AM CDT Home Care Visit [place] [id number] [place] [phone] Geneva Sanchez, LOS SN - HOME VISIT 02/14/2024 12:00 PM CDT Home Care Visit [facility] [address] [place] [phone] Joi Moreno COTA OT - HOME VISIT 02/14/2024 8:15 AM CDT Home Care Visit [facility] [address] [place] [phone] Fabiola Mathis TILE PRESSER - HOME VISIT 02/10/2024 3:30 PM CDT Home Care Visit [facility] [address] [place] [phone] Joi Moreno VARELA OT - HOME VISIT 02/10/2024 Home Care Visit [facility] [address] [place] [address] Nitza Riojas LISW ORNAMENT MAKER HAND - CASE COMMUNICATION 02/09/2024 Refill [facility] [address] [place] [address] Barbara Valentin, Refill Request (Duloxetine) 02/08/2024 3:00 PM CDT Home Care Visit [facility] [address] [place] [address] Veda Resendiz, RN SN - WOUND/OSTOMY CHART CONSULT 02/08/2024 9:00 AM CDT Home Care Visit [facility] [address] [place] [phone] Geneva Sanchez, LOS SN - HOME VISIT 02/08/2024 Telephone [facility] [address] [place] [address] Barbara Valentin DO Pharmacist Medication Management (MEDICATION CHANGE) 02/08/2024 Telephone [facility] [address], [place] [address] Geneva Sanchez, service center appraiser List Update 02/07/2024 4:00 PM CDT Home Care Visit [facility] [address] [place] [address] Joi Moreno VARELA OT - HOME VISIT 02/07/2024 9:30 AM CDT Home Care Visit [facility] [address] [place] [phone] Kendal Serna, PT PT - HOME VISIT 02/07/2024 Home Care Visit [facility] [address] [place] [phone] Fabiola Mathis TILE PRESSER - MISSED VISIT 02/07/2024 Telephone [facility] [address] [place] [address] Shaqra, Barbara Patricia, DO Refill Request (Insulin lispro pens) 02/04/2024 Refill [facility] [address] [place] [address] Shaqra, Barbara Patricia, DO Refill Request (Insulin Lispro) 02/03/2024 1:00 PM CDT Home Care Visit [facility] [address] [place] [address] Shania Elaine, RN SN - MISSED VISIT 02/03/2024 9:00 AM CDT Home Care Visit [facility] [address] [place] [address] Joi Moreno VARELA OT - HOME VISIT 02/02/2024 11:00 AM CDT Home Care Visit [facility] [address] [place] [address] Kendal Serna, CARINA PT - HOME VISIT 02/01/2024 4:00 PM CDT Home Care Visit [facility] [address] [place] [address] Joi Moreno VARELA OT - HOME VISIT 01/31/2024 9:30 AM CDT Home Care Visit [facility] [address] [place] [address] Fabiola Mathis TILE PRESSER - HOME VISIT 01/31/2024 Home Care Visit [facility] [address] [place] [address] Oumou Burns, LOS CARE COORDINATION 01/31/2024 Home Care Visit [facility] [address] [place] [phone] Oumou Burns, LOS CARE COORDINATION 01/30/2024 10:45 AM CDT Home Care Visit [facility] [address] [place] [phone] Kendal Serna, PT PT - HOME VISIT 01/30/2024 9:00 AM CDT Home Care Visit [facility] [address] [place] [address], [place] [address] Geneva Sanchez, RN SN - INITIAL ASSESSMENT 01/27/2024 11:30 AM CDT Home Care Visit [facility] [address] [place] [phone] Fabiola Mathis TILE PRESSER - MISSED VISIT 01/26/2024 5:00 PM CDT Home Care Visit [place] [id number] [place] [phone] Guillermo Boykin, PT PT - MISSED VISIT 01/25/2024 1:30 PM CDT Home Care Visit [address] [phone] Coleman Greene, PT PT - HOME VISIT 01/25/2024 Travel 01/24/2024 1:00 PM CDT Home Care Visit [place] [address] [place] [phone] Dar Phillips, OT OT - INITIAL ASSESSMENT 01/24/2024 9:30 AM CDT Home Care Visit [place] [address] [place] [phone] Fabiola Mathis TILE PRESSER - HOME VISIT 01/24/2024 Home Care Visit [address] [phone] Narcisa Atkinson, RN CARE COORDINATION 01/23/2024 Home Care Visit [address] [phone] Narcisa Atkinson, RN CARE COORDINATION 01/20/2024 Refill [facility] [address] [place] [address] Toshia Hooks NP Refill Request 01/18/2024 1:45 PM CDT Home Care Visit [place] [id number] [place] [phone] Kendal Serna, PT PT - OASIS START OF CARE 01/18/2024 10:30 AM CDT Phone Office Visit [facility] [address] [place] [address] Nikolai Ibarra MD 01/18/2024 Plan of Care Documentation [facility] [address] [place] [address] 01/18/2024 Patient Outreach [facility] [address] [place] [address] Maria R Ho, RN Primary RN Care Management; Hospital F/U (Lace 44) 01/18/2024 Travel 01/12/2024 9:13 PM CDT - 01/17/2024 5:23 PM CDT Hospital Encounter [facility] [address] [place] [address] Megan, MD Nedra Valverde, DO Chente Honeycutt, MD Dusty Manjarrez, MD Ricky Alston, Helder Hoover MD [facility] [place] Hospitalists Of Opioid dependence, uncomplicated (HC) (Primary Dx); Nasal congestion; Chronic pain syndrome; Diabetic ketoacidosis without coma associated with type 1 diabetes mellitus (HC); 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, macular edema presence unspecified, unspecified laterality, unspecified proliferative retinopathy type (HC); Heel ulcer, right, with unspecified severity (HC) Discharge Disposition: Home Health 01/09/2024 Refill [facility] [address] [place] [address] Barbara Valentin DO Refill Request (Fluoxetine) 01/09/2024 Refill [facility] [address] [place] [address] Elian Humphrey MD Refill Request (Torsemide) 01/06/2024 4:00 PM CDT Office Visit [facility] [address] [place] [address] Toshia Hooks NP Follow Up; Pain (Multi source; was told by her Hvac Engineering Technician she can ot use OTC Voltaren gel., which had been helping her O.A. pain (hands; wrists; shoulders; ) ) 01/06/2024 Travel 01/02/2024 Telephone [facility] [address] [place] [address] Saúlqra Barbara Patricia, DO Follow Up 12/27/2023 Refill [facility] [address] [place] [address] Saúlqra Barbara Patricia, DO Refill Request (Pregabalin, Cetirizine) 12/23/2023 2:35 PM CDT Office Visit [address] [address] Barbie Barbara Patricia, DO Diabetes (3 month check, labs); Rash (Rash under breasts? ) 12/23/2023 Travel 12/20/2023 Refill [facility] [address] [place] [address] Sir Valentini Patricia, DO Refill Request (Humalog Kwikpen Insulin) 12/16/2023 Refill [facility] [address] [facility] [address] [place] [address] Toshia Hooks NP Refill Request (Patient son called requesting oxycodone 5 mg at [facility].////) 12/15/2023 Telephone [facility] [address] [place] [address] Barbie Barbara Patricia, DO Lab 12/08/2023 Refill [facility] [address] [place] [address] Saúlqra Barbara Patricia, DO Refill Request (Ulticare Pen Needle, Per-fit Underwear) 12/07/2023 Refill [facility] [address] [place] [address] Saúlqra Barbara Patricia, DO Refill Request (Ulticare Pen Needle) 11/29/2023 Telephone [facility] [address] [place] [address] Barbara Valentin Patricia, DO Referral 11/29/2023 Refill [facility] [address] [place] [address] Sir Valentini Patricia, DO Refill Request (Cholecalciferol) 11/18/2023 Refill [facility] [address] [place] [address] Toshia Hooks NP Refill Request (oxycodone 5 mg at [facility]) 11/17/2023 Telephone [facility] [address] [place] [address] Barbara Valentin, DO Questions (Vish rod R.N. case management manager with [facility] has some questions for pcp) from Last 3 Months Immunizations Name Administration Dates Next Due AMB Influenza, IIV3 (Age >=3 years)(Flu Clinic Only) 05/17/2013,05/06/2010 COVID-19 vaccine (MedDay-Totally Interactive Weather NTech 30mcg/0.3mL) 12YO+ BIVALENT PF, MDV 04/28/2022 COVID-19 vaccine (MedDay-Bio NTech 30mcg/0.3mL) PF, MDV 06/23/2021 Hepatitis B [...] Sign Reading Time Taken Comments Blood Pressure 128/92 02/15/2024 3:45 PM CDT Pulse 82 02/15/2024 3:45 PM CDT Temperature 36.6 ??C (97.9 ??F) 02/15/2024 3:45 PM CD T Respiratory Rate 18 02/15/2024 3:45 PM CDT Oxygen Saturation 96% 02/15/2024 3:45 PM CDT Inhaled Oxygen Concentration - - Weight 102.3 kg (225 lb 9.6 oz) 01/16/2024 6:48 AM CDT Height 152.4 cm (5') 01/12/2024 9:27 PM CDT Body Mass Index 44.06 01/12/2024 9:27 PM CDT Plan of Treatment Upcoming Encounters Date Type Department Care Team (Late st Contact Info) Description 02/22/2024 4:30 AM CDT Home Care Visit [address] [phone] Dar Phillips, OT [address] [place] [address] 02/22/2024 7:00 AM CDT Home Care Visit [address] [phone] 02/28/2024 4:00 AM CDT Home Care Visit [address] [phone] Veda Resendiz, RN [address] [place] [address] 02/29/2024 4:00 AM CDT Home Care Visit [address] [phone] 03/07/2024 4:00 AM CDT Home Care Visit [address] [phone] Geneva Sanchez, LSO 03/14/2024 4:00 AM CDT Appointment [address] [phone] Geneva Sanchez, RN 03/26/2024 3:25 PM CDT Office Visit [facility] [address] [place] [address] Barbara Valentin, DO [address] [place] [address] 05/04/2024 3:30 PM CDT Phone Office Visit [facility] [address] [facility] [place] [address] Nikolai Ibarra MD [address] [place] [address] Health Maintenance Due Date Last Done Comments [...] 03/18/2020, Additional history exists Fecal testing sDNA-FIT ([place] guard) for age 45-75 11/10/2024 11/10/2021 Pneumococcal series for age 6-64 (3 of 3 - PPSV23 or PCV20) 2026 08/17/2016, 08/14/2014, 07/04/2005, Additional history exists Lipids for age 45-75 04/28/2027 04/28/2022, 08/17/2019, 08/31/2018, Additional history exists Tdap Completed 08/25/2010 HIV for age 15-65 Completed 07/21/2015 Hepatitis C screening for ag e 18-79 Completed 02/16/2018 Medical Devices Implanted Type Area Fruit Express Agent Device Identifier Shelf Expiration Date Model / Serial / Lot [id number] 2x12mm [[id number]] Implanted:Qty: 1 on 08/08/2008 at [facility] Explanted:at [facility] (Quantity not on file) [facility] [employer] [id number]# / [id number] / Stem Compnt Primary 8mm Mini - [id number] Implanted:Qty: 1 on 03/17/2011 at [facility] Right: Shoulder BIOMET [id number]# / / [id number] Head Hum Bio-Mod [id number] - [id number] Implanted:Qty: 1 on 03/17/2011 at [facility] Right: Shoulder BIOMET [id number]# / / [id number] Base Glenoid Hybrid 4mm Sm - [id number] Implanted:Qty: 1 on 03/17/2011 at [facility] Right: Shoulder BIOMET [id number]# / / [id number] Cmnt 1/2 Dosehowmedica - [id number] Implanted:Qty: 1 on 03/17/2011 at [facility] Right: Shoulder [employer] [id number]-- 0# / / [id number] Post Glenoid Hybrid Regenerex - [id number] Implanted:Qty: 1 on 03/17/2011 at [facility] Right: Shoulder BIOMET [id number] # / / [id number] Head Humeral 44x15 Co Cr Biomodular - [id number] Implanted:Qty: 1 on 07/12/2012 at [facility] Left: Shoulder BIOMET [id number]# / / [id number] Shoulder Stem Implanted:Qty: 1 on 07/12/2012 at [facility] Left: Shoulder [id number] / / [id number] Description:SHOULDER STEM Cmnt Bone 1/2 Dosehowmedica - [id number] Implanted:Qty: 1 on 07/12/2012 at [facility] Left: Shoulder [employer] [id number] 0# / / [id number] Post Glenoid Hybrid Regenerex - [id number] Implanted:Qty: 1 on 07/12/2012 at [facility] Left: Shoulder BIOMET [id number] # / / [id number] Base Glenoid Hybrid 4mm Sm - [id number] Implanted:Qty: 1 on 07/12/2012 at [facility] Left: Shoulder BIOMET [id number]# / / [id number] Procedures Procedure Name Priority Date/Time Associated Diagnosis [...] HIV 1/2 Add On 07/21/2015 9:40 AM INSURANCE CLAIM AUDITOR CLAIM PROFESSIONAL THIN PREP PAP SCREEN IMAGED Routine 08/17/2012 4:02 PM INSURANCE CLAIM AUDITOR Screening for malignant neoplasm of the cervix [...] - 100 mg/dL 01/17/2024 11:35 AM CDT [facility] Blood BLOOD SPECIMEN / Unknown 01/17/2024 11:27 AM CDT 01/17/2024 11:35 AM CDT Helder García MD CHEMISTRY [facility] [employer] [facility] [address] [place] [address], * (ABNORMAL) CREATININE (01/17/2024 8:20 AM CDT) Only the most recent of3 resultswithin the time period is included. eGFR 47(L) >90 mL/min/1.7 3m2 01/17/2024 9:06 AM CDT [facility] [employer] [facility] Comment:As of 2021, eG FR is calculated by the CKD-EPI creatinine equation without race adjustment. ??eGFR can be influenced by muscle mass, exercise, and diet. ??The reported eGFR is an estimation only and is only applicable if the renal function is stable. CREATININE 1.28(H) 0.50 - 0.90 mg/dL 01/17/2024 9:06 AM CDT [facility] [facility] Blood BLOOD SPECIMEN / Unknown Non-Lab Venipuncture / Unknown 01/17/2024 8:20 AM CDT 01/17/2024 8:26 AM CDT Helder García MD CHEMISTRY Performing Organization Address [facility]/ZIP Co de Phone Number [facility] [address] [place] [address], * PHOSPHORUS (01/17/2024 8:20 AM CDT) Only the most recent of5 resultswithin the time period is included. PHOSPHORUS 2.6 2.5 - 4.5 mg/dL 01/17/2024 9:06 AM CDT [facility] Blood BLOOD SPECIMEN / Unknown Non-Lab Venipuncture / Unknown 01/17/2024 8:20 AM CDT 01/17/2024 8:26 AM CDT Sarah Betancourt RN CHEMISTRY Performing Organization Address [facility] Co de Phone Number [facility] [address] [place] [address], * (ABNORMAL) BASIC METABOLIC PANEL (01/17/2024 8:20 AM CDT) Only the most recent of5 resultswithin the time period is included. SODIUM 139 136 - 145 mmol/L 01/17/2024 12:35 PM CDT [facility] POTASSIUM 3.9 3.5 - 5.1 mmol/L 01/17/2024 12:35 PM CDT [facility] CHLORIDE 103 98 - 107 mmol/L 01/17/2024 12:35 PM CDT [facility] CO2,TOTAL 24 22 - 29 mmol/L 01/17/2024 12:35 PM CDT [facility] ANION GAP 12 5 - 18 01/17/2024 12:35 PM CDT [facility] LABORATORY GLUCOSE 162(H) 70 - 99 mg/dL 01/17/2024 12:35 PM CDT [facility]AL [facility]ORY CALCIUM 8.7(L) 8.8 - 10.2 mg/dL 01/17/2024 12:35 PM CDT [facility] BUN 17 8 - 23 mg/dL 01/17/2024 12:35 PM CDT [facility] CREATININE 1.31(H) 0.50 - 0.90 mg/dL 01/17/2024 12:35 PM CDT [facility] BUN/CREAT RATIO 13 10 - 20 12:35 PM CDT [facility] eGFR 46(L) >90 mL/min/1.7 3m2 01/17/2024 12:35 PM CDT [facility] Comment: As of 2021, eGFR is [...] 8:26 AM CDT Helder García MD CHEMISTRY [facility] [address] [place] [address], * CLOSTRIDIOIDES DIFFICILE TOXIN PCR (01/16/2024 12:27 PM CDT) CLOSTRIDIUM DIFFICILE PCR Negative 01/16/2024 2:18 PM CDT [facility] PRESUMPTIVE NAP1 STRAIN Negative 01/16/2024 2:18 PM CDT [facility] Stool STOOL SPECIMEN / Unknown Non-Blood / Unknown 01/16/2024 12:27 PM CDT 01/16/2024 12:51 PM CDT Narrative [facility] - 01/16/2024 2:18 PM CDT The NAP1 (027 or BI) strain is a hypervirulent strain. Detection may be useful for epidemiological purposes. Helder García MD MICROBIOLOGY Performing Organization Address [facility] Co de Phone Number [facility] [address] [place] [address], * SCAN CORRESP-EKG RESULTS (01/16/2024 9:07 AM CDT) Narrative 01/16/2024 9:07 AM CDT Ordered by an unspecified provider. Other Clinical Staff OTHER * (ABNORMAL) HEMOGLOBIN (01/16/2024 6:30 AM CDT) Only the most recent of2 resultswithin the time period is included. HEMOGLOBIN 8.9(L) 12.0 - 16.0 g/dL 01/16/2024 7:13 AM CDT [facility] MCV 91 80 - 100 fL 01/16/2024 7:13 AM CDT [facility] Blood BLOOD SPECIMEN / Unknown Venipuncture / Unknown 01/16/2024 6:30 AM CDT 01/16/2024 6:58 AM CDT Fabrizio Montano MD HEMATOLOGY Performing Organization Address [facility] Co de Phone Number [facility] [address] [place] [address], * VANCOMYCIN (01/16/2024 6:30 AM CDT) Only the most recent of3 resultswithin the time period is included. VANCOMYCIN 13.0 ug/mL 01/16/2024 7:42 AM CDT [facility] Comment:No Reference Range D efined. DATE OF LAST DOSE,RANDOM Not Given 01/16/2024 7:42 AM CDT [facility] TIME OF LAST DOSE,RANDOM Not Given 01/16/2024 7:42 AM CDT [facility] TRA [facility]ORATORY Blood BLOOD SPECIMEN / Unknown Venipuncture / Unknown 01/16/2024 6:30 AM CDT 01/16/2024 6:58 AM CDT Barbara Holcomb NP CHEMISTRY Performing Organization Address [facility]/ZIP Co de Phone Number [facility] [address] [address], [place] * (ABNORMAL) PLATELET COUNT (01/15/2024 6:02 AM CDT) PLATELET COUNT 166 140 - 440 thou/cu mm 01/15/2024 6:44 AM CDT [facility] MPV 11.2(H) 6.5 - 11.0 fL 01/15/2024 6:44 AM CDT [facility] Blood BLOOD SPECIMEN / Unknown Venipuncture / Unknown 01/15/2024 6:02 AM CDT 01/15/2024 6:26 AM CDT Fabrizio Montano MD HEMATOLOGY Performing Organization Address [facility] Co de Phone Number [facility] [address] [place] [id number], [place] * WHITE BLOOD COUNT (01/15/2024 6:02 AM CDT) WHITE BLOOD COUNT 4.9 4.5 - 11.0 thou/cu mm 01/15/2024 6:44 AM CDT [facility] NRBC 0.0 % 01/15/2024 6:44 AM CDT [facility] ABS NRBC 0.0 thou /cu mm 01/15/2024 6:44 AM CDT [facility] Blood BLOOD SPECIMEN / Unknown Venipuncture / Unknown 01/15/2024 6:02 AM CDT 01/15/2024 6:26 AM CDT Fabrizio Montano MD HEMATOLOGY Performing Organization Address City/[facility]/ZIP Co de Phone Number [facility] [address] [place] [id number], [place] * Sodium AM (01/15/2024 6:02 AM CDT) SODIUM 142 136 - 145 mmol/L 01/15/2024 7:13 AM CDT [facility] Blood BLOOD SPECIMEN / Unknown Venipuncture / Unknown 01/15/2024 6:02 AM CDT 01/15/2024 6:27 AM CDT Fabrizio Montano MD CHEMISTRY Performing Organization Address City/[facility]/ZIP Co de Phone Number [facility] [address] [place] [address], * Potassium AM (01/15/2024 6:02 AM CDT) Only the most recent of3 resultswithin the time period is included. Pathologist [facility] POTASSIUM 4.4 3.5 - 5.1 mmol/L 01/15/2024 7:13 AM CDT [facility] Blood BLOOD SPECIMEN / Unknown Venipuncture / Unknown 01/15/2024 6:02 AM CDT 01/15/2024 6:27 AM CDT Fabrizio Montano MD CHEMISTRY Performing Organization Address City/[facility] Co de Phone Number [facility] [address] [place] [address], * SCAN-CARDIAC STRIP (01/14/2024 7:07 AM CDT) Scanner OTHER * (ABNORMAL) CBC W PLT NO DIFF (01/14/2024 5:28 AM CDT) WHITE BLOOD COUNT 8.5 4.5 - 11.0 thou/cu mm 01/14/2024 6:33 AM CDT [facility] RED BLOOD COUNT 3.04(L) 4.00 - 5.20 mil/cu mm 01/14/2024 6:33 AM CDT [facility] HEMOGLOBIN 8.9(L) 12.0 - 16.0 g/dL 01/14/2024 6:33 AM CDT [facility] HEMATOCRIT 27.5(L) 33.0 - 51.0 % 01/14/2024 6:33 AM CDT [facility] MCV 91 80 - 100 fL 01/14/2024 6:33 AM CDT [facility] MCH 29.3 26.0 - 34.0 pg 01/14/2024 6:33 AM CDT [facility] MCHC 32.4 32.0 - 36.0 g/dL 01/14/2024 6:33 AM CDT [facility] RDW 14.4 11.5 - 15.5 % 01/14/2024 6:33 AM CDT [facility] PLATELET COUNT 198 140 - 440 thou/cu mm 01/14/2024 6:33 AM CDT [facility] MPV 11.4(H) 6.5 - 11.0 fL 01/14/2024 6:33 AM CDT [facility] NRBC 0.0 % 01/14/2024 6:33 AM CDT [facility] ABS NRBC 0.0 thou /cu mm 01/14/2024 6:33 AM CDT [facility] Blood BLOOD SPECIMEN / Unknown Non-Lab Venipuncture / Unknown 01/14/2024 5:28 AM CDT 01/14/2024 6:31 AM CDT Barbara Holcomb NP HEMATOLOGY [facility] [address] [place] [address], * (ABNORMAL) CALCIUM IONIZED HOSPITAL DRAW ONLY (01/14/2024 5:28 AM CDT) Only the most recent of3 resultswithin the time period is included. Pathologist [facility] CALCIUM,IONIZE D 1.30(H) 1.15 - 1.27 mmol/L 01/14/2024 6:03 AM CDT [facility] TR[facility] Blood BLOOD SPECIMEN / Unknown Non-Lab Venipuncture / Unknown 01/14/2024 5:28 AM CDT 01/14/2024 5:49 AM CDT Grace Eldridge MD CHEMISTRY [facility] [address] [place] [id number], * ECHO TTE COMPLETE W CONTRAST (01/13/2024 3:56 PM CDT) AORTIC VALVE MEAN PG 7 mmHg EJECTION FRACTION 64 % LVEDD 4.1 cm EJECTION FRACTION 60 - 65% Anatomical Region Laterality Modality Ultrasound 01/13/2024 2:53 PM CDT Narrative 01/13/2024 4:39 PM CDT ECHOCARDIOGRAM ALIDA KUHN ? Accession#: ?? [id number] : ?1960 63 years Study Date: ?? 01/13/2024 2:53:14 PM Gender: F ?BP: ? 114/44 mmHg Height: 152.00 cm ?BSA: ?1.93 m? ? ? Weight: 98.00 kg ? Tech: ? KBA ? Referring MD: BARBARA HOLCOMB Site: ? [facility] [place] Location: [facility] Patient Location: Inpatient. Procedure: 2D w/ Contrast, [...] 2 ml diluted Definity, lot #[id number], [facility]# [id number] was administered peripherally to enhance visualization of all left ventricular segments. . This study was interpreted by an [facility] accredited facility. ??Final ?? Procedure Note Travon Blood MD - 01/13/2024 ECHOCARDIOGRAM ALIDA KUHN : 1960 63 years Study Date: 01/13/2024 2:53:14 PM Gender: F BP: 114/44 mmHg Height: 152.00 cm BSA: 1.93 m? ? ? Weight: 98.00 kg Tech: PASQUALE Referring MD: BARBARA HOLCOMB Site: [facility] [place] Location: [facility] Patient Location: Inpatient. Procedure: 2D w/ [...] 2 ml diluted Definity, lot #[id number], [facility]#[id number] was administered peripherally to enhance visualization of allleft ventricular segments. . This study was interpreted by an [facility] accredited facility. Final Barbara Holcomb BIOMASS PRODUCTION MANAGER ECHO ORD * US ARTERIAL LOWER EXTREMITY W ASMUEL BILATERAL (01/13/2024 2:23 PM CDT) Anatomical Region [...] 125 mmHg Left Brachial: 111 mmHg Right VOCATIONAL CASE MANAGER: Noncompressible Right DPA: 115 mmHg (SAMUEL 0.92) Left VOCATIONAL CASE MANAGER: Noncompressible Left DPA: Noncompressible SAMUEL: 1.0-1.4 - normal 0.9-0.99 - borderline 0.80-0.89 - mild 0.50-0.79 - moderate 0.30-0.49 - severe < 0.30 - critical RIGHT: CHEMISTRY ACCOUNT MANAGER PROX: 204 cm/sec; triphasic waveforms CHEMISTRY ACCOUNT MANAGER DIST: 138 cm/sec; triphasic waveforms PFA: 97 cm/sec; triphasic waveforms SFA PROX: 140, 111 cm/sec; triphasic waveforms SFA MID: 113, 74 cm/sec; triphasic waveforms SFA DIST: 107, 113 cm/sec; triphasic waveforms POP PROX: 105 cm/sec; triphasic waveforms POP DIST: 89 cm/sec; triphasic waveforms VOCATIONAL CASE MANAGER: 32 cm/sec; triphasic waveforms KAITLYN: 58 cm/sec; triphasic waveforms DPA: 56 cm/sec; triphasic waveforms LEFT: CHEMISTRY ACCOUNT MANAGER PROX: 193 cm/sec; triphasic waveforms CHEMISTRY ACCOUNT MANAGER DIST: 152 cm/sec; triphasic waveforms PFA: 98 cm/sec; triphasic waveforms SFA PROX: 119, 109 cm/sec; triphasic waveforms SFA MID: 103, 102 cm/sec; triphasic waveforms SFA DIST: 103, 100 cm/sec; triphasic waveforms POP PROX: 124 cm/sec; triphasic waveforms POP DIST: 85 cm/sec; triphasic waveforms VOCATIONAL CASE MANAGER: 169 cm/sec; triphasic waveforms KAITLYN: 91 cm/sec; triphasic waveforms DPA: 96 cm/sec; triphasic waveforms Procedure Note Peetrson Ruvalcaba MD - 01/14/2024 For Patients: As [...] 125 mmHg Left Brachial: 111 mmHg Right VOCATIONAL CASE MANAGER: Noncompressible Right DPA: 115 mmHg (SAMUEL 0.92) Left VOCATIONAL CASE MANAGER: Noncompressible Left DPA: Noncompressible SAMUEL: 1.0-1.4 - normal 0.9-0.99 - borderline 0.80-0.89 - mild 0.50-0.79 - moderate 0.30-0.49 - severe < 0.30 - critical RIGHT: CHEMISTRY ACCOUNT MANAGER PROX: 204 cm/sec; triphasic waveforms CHEMISTRY ACCOUNT MANAGER DIST: 138 cm/sec; triphasic waveforms PFA: 97 cm/sec; triphasic waveforms SFA PROX: 140, 111 cm/sec; triphasic waveforms SFA MID: 113, 74 cm/sec; triphasic waveforms SFA DIST: 107, 113 cm/sec; triphasic waveforms POP PROX: 105 cm/sec; triphasic waveforms POP DIST: 89 cm/sec; triphasic waveforms VOCATIONAL CASE MANAGER: 32 cm/sec; triphasic waveforms KAITLYN: 58 cm/sec; triphasic waveforms DPA: 56 cm/sec; triphasic waveforms LEFT: CHEMISTRY ACCOUNT MANAGER PROX: 193 cm/sec; triphasic waveforms CHEMISTRY ACCOUNT MANAGER DIST: 152 cm/sec; triphasic waveforms PFA: 98 cm/sec; triphasic waveforms SFA PROX: 119, 109 cm/sec; triphasic waveforms SFA MID: 103, 102 cm/sec; triphasic waveforms SFA DIST: 103, 100 cm/sec; triphasic waveforms POP PROX: 124 cm/sec; triphasic waveforms POP DIST: 85 cm/sec; triphasic waveforms VOCATIONAL CASE MANAGER: 169 cm/sec; triphasic waveforms KAITLYN: 91 cm/sec; [...] 01/14/2024 4:57:16 PM (Electronically Signed) Freya Schafer BIOMASS PRODUCTION MANAGER US * US RENAL AND BLADDER COMPLETE [...] 01/14/2024 2:34:58 AM (Electronically Signed) Barbara Holcomb BIOMASS PRODUCTION MANAGER US * XR FOOT 3 VIEWS LEFT [...] tissue wound is not marked. Freya Schafer BIOMASS PRODUCTION MANAGER GENERAL IMAGI NG * (ABNORMAL) AEROBIC BACTERIAL CULTURE, STAIN (01/13/2024 11:49 AM CDT) CULTURE RESULT(A) 01/16/2024 2:44 PM CDT [facility]- NTRAL LABORATORY CULTURE 3+ Corynebacterium striatum 01/16/2024 2:44 PM CDT [facility]AL LAB[facility] CULTURE 2+ Mixed oni present 01/16/2024 2:44 PM CDT [facility] NTRAL LABORATORY GRAM STAIN No PMNs 01/16/2024 2:44 PM CDT [facility] NTRGA LABORATORY GRAM STAIN 2+ RBCs 01/16/2024 2:44 PM CDT [facility] GRAM STAIN No Epithelial cells 01/15 2:44 PM CDT [facility] GRAM STAIN 2+ Gram Positive Bacilli 01/16/2024 2:44 PM CDT [facility] Other (Other) Non-Blood / Unknown 01/13/2024 11:49 AM CDT 01/13/2024 12:00 PM CDT Narrative [facility] - 01/16/2024 2:44 PM CDT Mixed oni; No Staphylococcus aureus, beta-Streptococcus, Streptococcus pneumoniae, or Pseudomonas aeruginosa isolated. Freya Schafer NP MICROBIOLOGY Performing Organization Address City/[facility]/ZIP Co de Phone Number [facility] [address] [place] [address], * ANAEROBIC CULTURE (01/13/2024 11:49 AM CDT) CULTURE No anaerobes isolated 01/19/2024 10:01 AM CDT [facility] TRA [facility] Other (Other) Non-Blood / Unknown 01/13/2024 11:49 AM CDT 01/13/2024 12:00 PM CDT Freya Schafer NP MICROBIOLOGY Performing Organization Address City/[facility]/ZIP Co de Phone Number [facility] [address] [place] [address], * (ABNORMAL) Electrolytes Panel - DKA (01/13/2024 10:53 AM CDT) Only the most recent of3 resultswithin the time period is included. SODIUM 140 136 - 145 mmol/L 01/13/2024 11:36 AM CDT [facility] POTASSIUM 5.2(H) 3.5 - 5.1 mmol/L 01/13/2024 11:36 AM CDT [facility] CHLORIDE 107 98 - 107 mmol/L 01/13/2024 11:36 AM CDT [facility] CO2,TOTAL 21(L) 22 - 29 mmol/L 01/13/2024 11:36 AM CDT [facility] ANION GAP 12 5 - 18 01/13/2024 11:36 AM CDT [facility] Blood BLOOD SPECIMEN / Unknown Non-Lab Venipuncture / Unknown 01/13/2024 10:53 AM CDT 01/13/2024 11:01 AM CDT Ifeanyi Hernández RN CHEMISTRY Performing Organization Address [facility] Co de Phone Number [facility] [address] [place] [address], * SCAN-CARDIAC STRIP (01/13/2024 8:00 AM CDT) Scanner OTHER * MAGNESIUM (01/13/2024 4:22 AM CDT) Only the most recent of2 resultswithin the time period is included. MAGNESIUM 1.9 1.6 - 2.4 mg/dL 01/13/2024 5:07 AM CDT [facility] Blood BLOOD SPECIMEN / Unknown Non-Lab Venipuncture / Unknown 01/13/2024 4:22 AM CDT 01/13/2024 4:41 AM CDT Ifeanyi Hernández RN CHEMISTRY Performing Organization Address City/[facility]/ZIP Co de Phone Number [facility] [address] [place] [address], * (ABNORMAL) Serum Glucose - DKA (01/13/2024 1:52 AM CDT) Only the most recent of2 resultswithin the time period is included. GLUCOSE,RANDOM 459(H) 70 - 139 mg/dL 01/13/2024 2:46 AM CDT [facility] Blood BLOOD SPECIMEN / Unknown Non-Lab Venipuncture / Unknown 01/13/2024 1:52 AM CDT 01/13/2024 2:03 AM CDT Emily Guzman MD [facility] [address] [place] [id number], [place] * (ABNORMAL) TROPONIN T (HS) ONE TIME (01/12/2024 11:39 PM CDT) [facility] TROPONIN T HS 45(H) 6-10 ng/L ng/L 01/13/2024 12:22 AM CDT [facility] Blood BLOOD SPECIMEN / Unknown Non-Lab Venipuncture / Unknown 01/12/2024 11:39 PM CDT 01/12/2024 11:45 PM CDT Emily Guzman MD CHEMISTRY Performing Organization Address [facility] Co de Phone Number [facility] [address] [place] [address], [place] * 12 Lead EKG (01/12/2024 10:16 PM CDT) [facility] Interpretation Normal sinus rhythm Left axis deviation Abnormal ECG When compared with ECG of 02-Jan-2019 02:01, Nonspecific T wave abnormality now evident in Lateral leads BEY[facility] NOW Ventricular Rate 78 BPM [facility] NOW Atrial Rate 78 BPM BEY[facility] NOW P-R Interval 160 ms BEYOND NOW QRS Duration 82 ms BEYOND NOW QT 400 ms BEYOND NOW QTc 456 ms BEYOND NOW P [place] 72 degrees BEYOND NOW R [place] -31 degrees BEYOND NOW T [place] 69 degrees BEYOND NOW 01/12/2024 10:1 6 PM CDT 01/13/2024 8:20 PM CDT Emily Guzman MD EKG ORD Performing Organization Address City/[facility]/ZIP Co de Phone Number [facility] [place], [place] * MRSA/SA PCR (01/12/2024 10:07 PM CDT) [facility] MRSA DNA PCR Negative Negative 01/12/2024 11:33 PM CDT [facility]- NTRAL LABORATORY STAPHYLOCOCCUS AUREUS PCR Negative Negative 01/12/2024 11:33 PM CDT [facility]GA LAB[facility] Other SPECIMEN FROM INTERNAL NOSE / Unknown Non-Blood / Unknown 01/12/2024 10:07 PM CDT 01/12/2024 10:13 PM CDT Narrative [facility] - 01/12/2024 11:33 PM CDT Test result does not preclude MRSA or SA nasal colonization. Chaparro Sneed DO MICROBIOLOGY [facility] [address] [place] [address], * (ABNORMAL) Urine Culture (01/12/2024 10:07 PM CDT) CULTURE RESULT(A) 01/16/2024 6:58 AM CDT [facility] TRAL LABORATORY CULTURE 10,000-50,000 CFU/mL Proteus mirabilis 01/16/2024 6:58 AM CDT [facility] CULTURE 50,000-100,000 CFU/mL Danita albicans 01/16/2024 6:58 AM CDT [facility] Urine URINE SPECIMEN / Unknown Non-Blood [...] Guzman MD MICROBIOL OGY Performing Organization Address City/[facility] Co de Phone Number [facility] [address] [place] [address], * Blood Culture (01/12/2024 9:40 PM CDT) Only the most recent of2 resultswithin the time period is included. Pathologist [facility] CULTURE No Growth. 01/16/2024 11:23 PM CDT [facility] Blood BLOOD SPECIMEN / Unknown Venipuncture / Unknown 01/12/2024 9:40 PM CDT 01/12/2024 9:52 PM CDT Narrative [facility] - 01/16/2024 11:23 PM CDT Low volume blood culture received; possible false negative culture. Emily Guzman MD MICROBIOL OGY Performing Organization Address [facility] Co de Phone Number [facility] [address] [place] [address], * (ABNORMAL) TROPONIN T(HS) ACUTE W/2HR REFLEX (01/12/2024 9:37 PM CDT) Pathologist [facility] TROPONIN T HS 47(H) 6-10 ng/L ng/L 01/12/2024 10:16 PM CDT [facility] Blood BLOOD SPECIMEN / Unknown Non-Lab Venipuncture / Unknown 01/12/2024 9:37 PM CDT 01/12/2024 9:46 PM CDT Narrative [facility] - 01/12/2024 10:16 PM CDT hs-cTnT [...] department patient population. Emily Guzman MD CHEMISTRY [facility] [address] [place] [address], [place] * (ABNORMAL) CBC WITH AUTO DIFFERENTIAL (01/12/2024 9:37 PM CDT) [facility] WHITE BLOOD COUNT 14.9(H) 4.5 - 11.0 thou/cu mm 01/12/2024 9:54 PM CDT [facility] TRAL LABORATORY RED BLOOD COUNT 3.61(L) 4.00 - 5.20 mil/cu mm 01/12/2024 9:54 PM CDT [facility] HEMOGLOBIN 10.5(L) 12.0 - 16.0 g/dL 01/12/2024 9:54 PM CDT [facility] HEMATOCRIT 32.6(L) 33.0 - 51.0 % 01/12/2024 9:54 PM CDT [facility] MCV 90 80 - 100 fL 01/12/2024 9:54 PM CDT [facility] MCH 29.1 26.0 - 34.0 pg 01/12/2024 9:54 PM CDT [facility] MCHC 32.2 32.0 - 36.0 g/dL 01/12/2024 9:54 PM CDT [facility] RDW 13.2 11.5 - 15.5 % 01/12/2024 9:54 PM CDT [facility] PLATELET COUNT 273 140 - 440 thou/cu mm 01/12/2024 9:54 PM CDT [facility] MPV 11.0 6.5 - 11.0 fL 01/12/2024 9:54 PM CDT [facility] NRBC 0.0 % 01/12/2024 9:54 PM CDT [facility] ABS NRBC 0.0 thou /cu mm 01/12/2024 9:54 PM CDT [facility] % NEUT 80.3 % 01/12/2024 9:54 PM CDT [facility] % LYMPH 9.6 % 01/12/2024 9:54 PM CDT [facility] % MONO 9.2 % 01/12/2024 9:54 PM CDT [facility] % EOS 0.1 % 01/12/2024 9:54 PM CDT [facility] % BASO 0.1 % 01/12/2024 9:54 PM CDT [facility] % IMMATURE GRAN (METAS,MYELOS,NC OS) 0.7 % 01/12/2024 9:54 PM CDT [facility] ABSOLUTE NEUTROPHILS 12.0(H) 1.7 - 7.0 thou/cu mm 01/12/2024 9:54 PM CDT [facility] TR[facility] ABSOLUTE LYMPHOCYTES 1.4 0.9 - 2.9 thou/cu mm 01/12/2024 9:54 PM CDT [facility] ABSOLUTE MONOCYTES 1.4(H) <0.9 thou/cu mm 01/12/2024 9:54 PM CDT [facility] ABSOLUTE EOSINOPHILS 0.0 <0.5 thou/cu mm 01/12/2024 9:54 PM CDT [facility] ABSOLUTE BASOPHILS 0.0 <0.3 thou/cu mm 01/12/2024 9:54 PM CDT [facility] ABSOLUTE IMMATURE GRANULOCYTES(MET ,MYELOS,PROS) 0.1 <0.3 thou/cu mm 01/12/2024 9:54 PM CDT [facility] Blood BLOOD SPECIMEN / Unknown Non-Lab Venipuncture / Unknown 01/12/2024 9:37 PM CDT 01/12/2024 9:46 PM CDT Emily Guzman MD HEMATOLOG Y [facility] [address] [place] [address], * (ABNORMAL) BLOOD GAS,VENOUS (01/12/2024 9:37 PM CDT) PH, VENOUS 7.25(L) 7.32 - 7.43 01/12/2024 9:52 PM CDT [facility] PCO2, VENOUS 44 41 - 51 mmHg 01/12/2024 9:52 PM CDT [facility] PO2, VENOUS 48(H) 35 - 40 mmHg 01/12/2024 9:52 PM CDT [facility] HCO3,VENOUS 19(L) 22 - 29 mmol/L 01/12/2024 9:52 PM CDT [facility] BASE EXCESS, VENOUS, POCT -7.7(L) -2.0 - 3.0 01/12/2024 9:52 PM CDT [facility] O2 SATURATION, VENOUS 85(H) 70 - 75 % 01/12/2024 9:52 PM CDT [facility] INSPIRED O2 21 01/12/2024 9:52 PM CDT [facility] Comment:Unit of Measure: Lit ers (L) if <=20; Percent (%) if >20 PATIENT TEMPERATURE 36.9 Degrees C 01/12/2024 9:52 PM CDT [facility] Blood VENOUS BLOOD SPECIMEN / Unknown Non-Lab Venipuncture / Unknown 01/12/2024 9:37 PM CDT 01/12/2024 9:46 PM CDT Emily Guzman MD CHEMISTRY [facility] [address] [place] [address], * Protime - INR (01/12/2024 9:37 PM CDT) INR 1.0 <1.3 01/12/2024 9:56 PM CDT [facility] PROTIME 11.5 10.3 - 12.3 sec 01/12/2024 9:56 PM CDT [facility] Blood BLOOD SPECIMEN / Unknown Non-Lab Venipuncture / Unknown 01/12/2024 9:37 PM CDT 01/12/2024 9:46 PM CDT Narrative [facility] - 01/12/2024 9:56 PM CDT ?Therapeutic Range [...] Guzman MD HEMATOLOG Y Performing Organization Address [facility] Co de Phone Number [facility] [address] [place] [address], * (ABNORMAL) HEMOGLOBIN A1C MONITORING (POCT) (01/12/2024 9:37 PM CDT) Only the most recent of2 resultswithin the time period is included. HEMOGLOBIN A1C MONITORING (POCT) 9.3(H) <=6.4 % 01/14/2024 10:29 AM CDT [facility] Blood BLOOD SPECIMEN / Unknown Non-Lab Venipuncture / Unknown 01/12/2024 9:37 PM CDT 01/12/2024 9:46 PM CDT Narrative [facility] - 01/14/2024 10:29 AM CDT ? (<=6.9%) [...] Anemias, Splenectomy ? Barbara Holcomb NP CHEMISTRY [facility] [address] [place] [phone], * (ABNORMAL) Hepatic Function Panel (01/12/2024 9:37 PM CDT) ALBUMIN 3.2(L) 4.0 - 4.9 g/dL 01/12/2024 10:16 PM CDT [facility] PROTEIN,TOTAL 6.4 6.0 - 8.0 g/dL 01/12/2024 10:16 PM CDT [facility] BILIRUBIN,TOTAL 0.2 0.0 - 1.2 mg/dL 01/12/2024 10:16 PM CDT [facility] BILIRUBIN,DIRECT <0.2 0.0 - 0.3 mg/dL 01/12/2024 10:16 PM CDT [facility] BILIRUBIN,INDIRE CT 01/12/2024 10:16 PM CDT [facility] Comment:Unable to calculate, Direct Bili <0.2 ALK PHOSPHATASE 122(H) 35 - 104 IU/L 01/12/2024 10:16 PM CDT [facility] ALT (SGPT) 21 10 - 35 IU/L 01/12/2024 10:16 PM CDT [facility] AST (SGOT) 20 10 - 35 IU/L 01/12/2024 10:16 PM CDT [facility] Blood BLOOD SPECIMEN / Unknown Non-Lab Venipuncture / Unknown 01/12/2024 9:37 PM CDT 01/12/2024 9:46 PM CDT Emily Guzman MD CHEMISTRY [facility] [address] [place] [id number], * SCAN-CARDIAC STRIP (01/12/2024 9:20 PM CDT) [...] health care provider. XR MAMMO BILAT SCREENING [[id number]] CLINICAL HISTORY: ??This is an asymptomatic 61 y.o. patient. INDICATION FOR EXAM: Mammogram Screening. TECHNIQUE: CC & MLO views were obtained. ??This study was evaluated with the assistance of Computer-Aided Detection. COMPARISON FILM: Yes 03/02/18 [employer] [facility]13 [facility] FINDINGS: ??The breasts are extremely dense, which lowers the sensitivity of mammography. There are no dominant masses, suspicious micro calcifications or areas of architectural distortion. Shania Montiel MD MAMMO * LIPID PANEL W REFLEX MEASURED LDL (04/28/2022 1:44 PM CDT) CHOLESTEROL,TOTAL 139 100 - 199 mg/dL 04/30/2022 6:25 PM CDT [facility] TRIGLYCERIDES 141 <150 mg/dL 04/30/2022 6:25 PM CDT [facility] HDL CHOLESTEROL 42 >40 mg/dL 2 6:25 PM CDT [facility] NON-HDL CHOLESTEROL 97 <145 mg/dl 04/30/2022 6:25 PM CDT [facility] CHOL/HDL RATIO 3.31 <4.50 04/30/2022 6:25 PM CDT [facility] LDL CHOLESTEROL 69 <=130 mg/dL 04/30/2022 6:25 PM CDT [facility] VLDL CHOLESTEROL 28 <=30 mg/dL 04/30/2022 6:25 PM CDT [facility] PROVIDER ORDERED STATUS RANDOM 04/30/2022 6:25 PM CDT [facility] Blood BLOOD SPECIMEN / Unknown Venipuncture / Unknown 04/28/2022 1:44 PM CDT 04/28/2022 1:45 PM CDT Shania Montiel MD CHEMISTRY [facility] [address] [place] [address], * FECAL DNA (AKA COLOGUARD) (11/10/2021 1:00 PM CDT) Shania Montiel MD COMMUNICATION ORD * ANTI HCV [[id number]] (02/16/2018 4:20 PM CDT) Pathologist [facility] HEPATITIS C ANTIBODY Non-React alex Non-React alex 02/17/2018 2:48 PM CDT [facility] Comment:Antibodies to HCV no t detected; does not exclude the possibility of exposure to HCV. Blood BLOOD SPECIMEN / Unknown Butterfly / Unknown 02/16/2018 4:20 PM CDT 02/16/2018 4:20 PM CDT Coleman Plata MD SEND OUTS [facility] [address] [place] [address], [place] * HIV 1&2 TODAY (07/21/2015 9:40 AM INSURANCE CLAIM AUDITOR) HIV-1/HIV-2 ANTIBODY Non-Reacti ve Non-Reacti ve 07/21/2015 10:31 AM INSURANCE CLAIM AUDITOR [facility] Blood specimen (specimen) BLOOD SPECIMEN / Unknown Venipuncture / Unknown 07/21/2015 9:40 AM INSURANCE CLAIM AUDITOR 07/21/2015 9:47 AM INSURANCE CLAIM AUDITOR Narrative [facility] - 07/21/2015 10:31 AM INSURANCE CLAIM AUDITOR HIV-1 p24 and HIV-1/HIV-2 Ab not detected Kait Morales DO SEND OUTS [facility] [address] [place] [address], * CLAIM PROFESSIONAL THIN PREP PAP SCREEN IMAGED (08/17/2012 4:02 PM INSURANCE CLAIM AUDITOR) CYTOLOGY CYTOPATHOLOGY REPORT [facility] Status: Final Status ?[id number] CLINICAL INFORMATION Last Date of LMP ? :07/03/2012 Last Pap Date ?:02/01/2011 Last Pap Result ?:NIL ABN Transfer/Bx Past 5 YRS :None Hormone Usage ?:BCP/OCP/Patch/R ing Menstrual Status ? :Regular Periods Transfer/Bx done today ? :No Additional Information :None [...] COLLECTED:08/17/12 ? ACCESSIONED: ??08/18/12 ?? SIGNED: ??08/21/12 [facility] PAP [place] CODE NIL [facility] Tissue specimen (specimen) (Cervical/Vagina l) 08/17/2012 4:02 PM INSURANCE CLAIM AUDITOR 08/17/2012 4:00 PM INSURANCE CLAIM AUDITOR Coleman Plata MD PATHOLOGY/CYTOLOGY [facility] [place]NAL ZIP [phone] [place], [place] [id number] from Last 3 Months or Most Recently [...] Urine earlier this year (per report from [facility], not available in CareEverywhere), 04/19/18 L cheek abscess exclusions for contact precaution discontinuation (if > 12 months since positive culture): 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 [address] [place] [address] Endocrinology 09/07/22 [facility] [address] [place] [address] 01/17/24 Suad Ng/ Med[employer] CM Behavioral Psychologist 07/14/17 [facility] Home Health Nurse 07/01/17 [facility] SUPERVISOR [employer] Services Home Health Aide 07/14/17 [facility] Clinical Research Tech/ Ally Morillom [address] [place] [address] Behavioral Psychologist 07/07/17
== END 2024-02-16 15:08 | disposition home or self-care (01) ==
LOC: WOUND 15:08
PROVIDERS: PCP Family Medicine; Visit Provider Nurse Practitioner Family
DX: E11.621 Type 2 diabetes mellitus with foot ulcer (principal); L97.422 Non-pressure chronic ulcer of left heel and midfoot with fat layer exposed; M14.672 Charcot's joint, left ankle and foot; Z79.4 Long term (current) use of insulin
CPT/HCPCS: 11042

== ENCOUNTER 2024-02-23 14:55 | Outpatient (CLI) | payer OTHER, SELFPAY ==
--- OUTSIDE RECORDS SUMMARY | 2024-02-23 14:57 | XMS_ITS | Encounter Summary ---
Author Organization [facility] Address [address] [place] [address] Care Team Providers Care Bioinformatics Technician Name Role Phone Barbara Valentin DO Primary Care Provider Kevin zepeda Encounter Details Date Type Department Care Team (Late st Contact Info) Description 01/23/2024 Office Communication [facility] [place] [address] [place] [address] Ronnell Kirby [address] [place] [address] Social History Tobacco Use Types [...] on filedocumented in this encounter Care Teams Bioinformatics Technician Relationship Specialty Start Date End Date Barbara [place] [address] PCP - General Family Medicine 09/22/23 documented as of this encounter
--- OUTSIDE RECORDS SUMMARY | 2024-02-23 14:57 | XMS_ITS | Encounter Summary ---
Author Organization [facility] [place] Address [address] [place] [address] Care Team Providers Care Asbestos Removal Supervisor Name Role Phone Barbie Barbaraesteban Gomez DO Primary Care Provider Kevin zepeda Encounter Details Date Type Department Care Team (Late st Contact Info) Description 02/01/2024 Telephone [facility] [place] [address] [place] [address] Gabriel Hicks MD [address] [place] [address] Social History Tobacco Use Types [...] on filedocumented in this encounter Care Teams Asbestos Removal Supervisor Relationship Specialty Start Date End Date Barbara Valentin DO [address] [place] [address] PCP - General Family Medicine 09/22/23 documented as of this encounter
--- OUTSIDE RECORDS SUMMARY | 2024-02-23 14:57 | XMS_ITS | Encounter Summary ---
Author Organization [facility] Address [address] [place] [address] Care Team Providers Care Social Professionals Name Role Phone Barbara Valentin DO Primary Care Provider Kevin zepeda Encounter Details Date Type Department Care Team (Late st Contact Info) Description 09/22/2023 Documentation Only [facility] [place] [address] [facility] [address] [place] [address] No, Pcp Social History Tobacco [...] on filedocumented in this encounter Care Teams Social Professionals Relationship Specialty Start Date End Date Barbara [place] [address] PCP - General Family Medicine 09/22/23 documented as of this encounter
--- OUTSIDE RECORDS SUMMARY | 2024-02-23 14:57 | XMS_ITS | Clinical Summary ---
Author Organization [facility] Address [address] [facility] [place] [address] Phone Care Team Providers Care Hospital Receiving Clerk Name Role Phone Sir Valentinesteban Gomez DO [...] One Pack) 3 MG/DOSE powder Inhale 1 [place] into affected nostril(s) each time if needed [...] Team Description 02/01/2024 Telephone [facility] [place] [address] [facility] [address] [place] [phone] Gabriel Hicks MD 01/23/2024 Documentation Only [facility] [place] [address] [facility] [address] [place] [phone] Ronnell Kirby 01/23/2024 Office Communication [facility] [place] [address] [facility] [address] [place] [phone] Ronnell Kirby from Last 3 Months Immunizations [...] LAB BLOOD ORDERAB LES Performing Organization Address [facility] Co de Phone Number [facility] * (ABNORMAL) Creatine (01/17/2024) Only the most recent of3 resultswithin the time period is included. Creatine, Serum 1.28(H) [facility] GFR Calculated 47(L) [facility] Blood (Blood, Venous) 01/17/2024 Historical Provider MD LAB BLOOD ORDERAB LES Performing Organization Address City/[facility]/ZIP Co de Phone Number [facility] * (ABNORMAL) [...] BESSY from Last 3 Months Care Teams Hospital Receiving Clerk Relationship Specialty Start Date End Date Barbara Valentin DO [address] [place] [address] PCP - General Family Medicine 09/22/23
--- OUTSIDE RECORDS SUMMARY | 2024-02-23 14:57 | XMS_ITS | Encounter Summary ---
Author Organization [facility] Address [address] [place] [address] Care Team Providers Care Form Stripper Name Role Phone Barbie Barbaraesteban Gomez DO Primary Care Provider Kevin zepeda Encounter Details Date Type Department Care Team (Late st Contact Info) Description 01/23/2024 Documentation Only [facility] [place] [address] [place] [address] Ronnell Kirby [address] [place] [address] Social History Tobacco Use Types [...] LAB BLOOD ORDERAB LES Performing Organization Address [facility]/ZIP Co de Phone Number [facility] * (ABNORMAL) Creatine (01/17/2024) Creatine, Serum 1.28(H) [facility] GFR Calculated 47(L) [facility] Blood (Blood, Venous) 01/17/2024 Historical Provider MD LAB BLOOD ORDERAB LES Performing Organization Address [facility]/State/ZIP Co de Phone Number [facility] * (ABNORMAL) Creatine (01/16/2024) Creatine, Serum 1.28(H) [facility] GFR Calculated 47(L) [facility] Blood (Blood, Venous) 01/16/2024 Historical Provider MD LAB BLOOD ORDERAB LES Performing Organization Address [facility] de Phone Number [facility] * (ABNORMAL) Creatine (01/15/2024) Pathologist [facility] Creatine, Serum 1.71(H) [facility] GFR Calculated 34(L) [facility] Blood (Blood, Venous) 01/15/2024 Historical Provider MD LAB BLOOD ORDERAB LES Performing Organization Address [facility] Phone Number [facility] * (ABNORMAL) Hemoglobin (01/15/2024) Pathologist [facility] Hemoglobin 8.4(L) g/dL [facility] MCV 91.0 [facility] Blood (Blood, Venous) 01/15/2024 Historical Provider MD LAB BLOOD ORDERAB LES Performing Organization Address [facility] de Phone Number [facility] * (ABNORMAL) Basic Metabolic Panel (BMP) (01/14/2024) Pathologist [facility] Sodium 144 mEq/L [facility] Potassium 4.4 mEq/L [facility] Chloride 112(H) [facility] Carbon Dioxide 23 mmol/L [facility] Calcium 8.4(L) mg/dL [facility] BUN 57(H) mg/dL [facility] Creatinine 2.61(H) mg/dL [facility] Glucose 179(H) mg/dL [facility] eGFR 20(L) [facility] Anion Gap 9 [facility] 01/14/2024 Historical Provider MD LAB BLOOD ORDERAB LES Performing Organization Address [facility] de Phone Number [facility] * (ABNORMAL) CBC (01/14/2024) WBC 8.5 K/uL [facility] Red Blood Cell Count 3.04(L) [facility] Hemoglobin 8.9(L) g/dL [facility] Hematocrit 27.5(L) % [facility] MCV 91 [facility] MCH 29.3 [facility] MCHC 32.4 [facility] RDW 14.4 [facility] Platelet Count 198 [facility] MPV 11.4(H) [facility] Blood (Blood, Venous) 01/14/2024 Historical Provider MD LAB BLOOD ORDERAB LES Performing Organization Address [facility] Co de Phone [...] LAB BLOOD ORDERAB LES Performing Organization Address [facility] Co de Phone [...] LAB BLOOD ORDERAB LES Performing Organization Address [facility] Co de Phone [...] on filedocumented in this encounter Care Teams Form Stripper Relationship Specialty Start Date End Date Barbara Valentin DO [address] [place] [address] PCP - General Family Medicine 09/22/23 documented as of this encounter
--- OUTSIDE RECORDS SUMMARY | 2024-02-23 14:58 | XMS_ITS | Clinical Summary ---
Author Organization [employer] Formerly [facility] s & [facility] Address [place], [place] [address] Care Team Providers Care Telegraph Operator Name Role Phone Julio Ibrahim MD Unavailable [phone] Chuy Doss MD Unavailable Markel Strong MD Unavailable Nikolai Ibarra MD Unavailable [phone] Barbara Valentin DO Primary Care Provider [phone] [facility] [place] Unavailable Allergies Active Allergy Reactions Criticality Noted [...] mellitus at risk of hypoglycemia Inhale 1 [place] into affected nostril(s) each time if needed for Severe Hypoglycemia. Roll on side and call 911 after administration. 2 Each 11 12/25/19 Active fluticasone (50 mcg per actuation) nasal solution (FLONASE)Indicati ons:Nasal congestion Inhale 1 [place] into affected nostril(s) once daily. Inhale 1 [place] in the nostril(s) once daily. 16 g [...] continuous glucose monitor READER (FreeStyle Elli 2 Dovray)Indication s:Type 1 diabetes mellitus with other specified complication (HC) To be used to read blood sugars per criminal investigative agent's directions. 1 Each 05/19/20 Active blood-glucose meterIndications: [...] be used to read blood sugars per criminal investigative agent's directions. 6 Each 3 09/06/19 24 Active [...] 20 units each morning 01/17/20 24 Active insulin lispro, U-100, (HumaLOG KwikPen [...] CAPSULE BY MOUTH ONCE DAILY 60 Capsule 02/12/20 24 Active oxyCODONE (ROXICODONE) 5 mg immediate release tabletIndications :Chronic pain syndrome,Neuropat hy due to secondary diabetes (HC) Si p.o. B.I.D. / PRN For O.A. pain or Diabetic P.N. Pain ; max: 2 a day. Use dates: 02/21/24-03/21/24 60 Tablet 02/16/20 24 Active naloxone (NARCAN) 4 mg/actuation nasal sprayIndications: Chronic, continuous use of opioids Inhale 1 [place] into affected nostril(s) each time if needed for Patient Diff To Arouse or Resp Rate < 8 / min. Additional doses may be given every 2 to 3 minutes until emergency medical assistance arrives. 2 Each 02/16/20 24 Active DULoxetine (CYMBALTA) 60 mg Delayed-release [...] day 01/17/20 24 024 Discontinued(*M edication adjustment) oxyCODONE (ROXICODONE) 5 mg immediate release tabletIndications :Chronic pain syndrome,Neuropat hy due to secondary diabetes (HC) Si p.o. B.I.D. / PRN For O.A. pain or Diabetic P.N. Pain ; max: 2 a day. Use dates: 01/22/24-02/20/24 60 Tablet 01/20/20 24 024 Discontinued(Re order (E-cancel not sent)) insulin lispro (HUMALOG; ADMELOG) 100 unit/mL injectionIndicati [...] substance agreement signed - 10/07/23 10/07/2023 Overview: [facility] .................... 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 11/27/2013 12/28/2013 Anticoagulation [...] Encounters Date Type Department Care Team Description 02/22/2024 3:00 PM CDT Home Care Visit Formerly [facility] [address] [place] [address] Trini Hitchcock, RN SN - HOME VISIT 02/22/2024 Home Care Visit Formerly [facility] [address] [place] [address] Dar Phillips OT OT - DISCIPLINE DISCHARGE 02/21/2024 9:45 AM CDT Home Care Visit Formerly [facility] [address] [place] [address] Alex Contreras PACKAGING ASSOCIATE - HOME VISIT 02/20/2024 Home Care Visit Formerly [facility] [address] [place] [address] Nitza Riojas LISW COOLING PAN TENDER - HOME VISIT 02/16/2024 Refill [facility] [address] [place] [address] Toshia Hooks NP Refill Request (oxyCODONE (ROXICODONE) 5 mg immediate release tablet ) 02/16/2024 Home Care Visit [facility]ly [facility] [address] [place] [phone] Nitza Riojas LISW COOLING PAN TENDER - MISSED VISIT 02/15/2024 3:45 PM CDT Home Care Visit [facility]ly [facility] [address] [place] [phone] Coleman Greene, PT PT - DISCIPLINE DISCHARGE 02/15/2024 11:00 AM CDT Home Care Visit [facility] [address] [place] [phone] Geneva Sanchez, LOS SN - HOME VISIT 02/14/2024 12:00 PM CDT Home Care Visit [facility] [address] [place] [phone] Joi Moreno, VARELA OT - HOME VISIT 02/14/2024 8:15 AM CDT Home Care Visit [facility]ly [facility] [address] [place] [phone] Fabiola Mathis PACKAGING ASSOCIATE - HOME VISIT 02/10/2024 3:30 PM CDT Home Care Visit [facility]ly [facility] [address] [place] [phone] Joi Moreno VARELA OT - HOME VISIT 02/10/2024 Home Care Visit [facility]ly [facility] [address] [place] [phone] Nitza Riojas LISW COOLING PAN TENDER - CASE COMMUNICATION 02/09/[address] [address] Barbara Valentin Patricia, DO Refill Request (Duloxetine) 02/08/2024 3:00 PM CDT Home Care Visit [facility] [address] [place] [address] Veda Resendiz RN SN - WOUND/OSTOMY CHART CONSULT 02/08/2024 9:00 AM CDT Home Care Visit [facility] [address] [place] [phone] Geneva Sanchez, LOS SN - HOME VISIT 02/08/2024 Telephone [facility] [address] [place] [address] Barbara Valentin DO Pharmacist Medication Management (MEDICATION CHANGE) 02/08/2024 Telephone [facility] [address] [place] [phone] Geneva Sanchez, equalizer operator List Update 02/07/2024 4:00 PM CDT Home Care Visit [facility] [address] [place] [phone] Joi Moreno COTA OT - HOME VISIT 02/07/2024 9:30 AM CDT Home Care Visit [facility] [address] [place] [phone] Kendal Serna, CARINA PT - HOME VISIT 02/07/2024 Home Care Visit [facility]ly [facility] [address] [place] [phone] Fabiola Mathis PACKAGING ASSOCIATE - MISSED VISIT 02/07/2024 Telephone [facility] [address] [place] [address] Barbara Valentin Patricia, DO Refill Request (Insulin lispro pens) 02/04/2024 Refill [facility] [address] [place] [address] Sir Valentini Patricia, DO Refill Request (Insulin Lispro) 02/03/2024 1:00 PM CDT Home Care Visit [facility] [address] [facility] [place] [address] Shania Elaine, RN SN - MISSED VISIT 02/03/2024 9:00 AM CDT Home Care Visit [facility] [address] [facility] [place] [address] Joi Moreno VARELA OT - HOME VISIT 02/02/2024 11:00 AM CDT Home Care Visit [facility] [address] [place] [address] Kendal Serna, PT PT - HOME VISIT 02/01/2024 4:00 PM CDT Home Care Visit [facility] [address] [place] [phone] Joi Moreno VARELA OT - HOME VISIT 01/31/2024 9:30 AM CDT Home Care Visit [facility] [address] [place] [address] Fabiola Mathis PACKAGING ASSOCIATE - HOME VISIT 01/31/2024 Home Care Visit [facility] [address] [place] [address] Oumou Burns, LOS CARE COORDINATION 01/31/2024 Home Care Visit [facility]ly [facility] [address] [place] [phone] Oumou Burns, LOS CARE COORDINATION 01/30/2024 10:45 AM CDT Home Care Visit [facility] [address] [place] [phone] Kendal Serna, PT PT - HOME VISIT 01/30/2024 9:00 AM CDT Home Care Visit [facility] [address] [place] [phone] Geneva Sanchez, LOS SN - INITIAL ASSESSMENT 01/27/2024 11:30 AM CDT Home Care Visit [facility] [address] [place] [phone] Fabiola MathisA - MISSED VISIT 01/26/2024 5:00 PM CDT Home Care Visit [facility] [address] [place] [address] Guillermo Boykin, PT PT - MISSED VISIT 01/25/2024 1:30 PM CDT Home Care Visit [facility] [address] [place] [address] Coleman Greene, PT PT - HOME VISIT 01/25/2024 Travel 01/24/2024 1:00 PM CDT Home Care Visit [facility] [address] [place] [address] Dar Phillips, OT OT - INITIAL ASSESSMENT 01/24/2024 9:30 AM CDT Home Care Visit [facility]ly [facility] [address] [place] [phone] Fabiola Mathis PACKAGING ASSOCIATE - HOME VISIT 01/24/2024 Home Care Visit [facility]ly [facility] [address] [place] [phone] Narcisa Atkinson, RN CARE COORDINATION 01/23/2024 Home Care Visit [facility]ly [facility] [address] [place] [phone] Narcisa Atkinson, RN CARE COORDINATION 01/20/[facility] [address] [place] [address] Toshia Hooks NP Refill Request 01/18/2024 1:45 PM CDT Home Care Visit [facility] [address] [place] [phone] Kendal Serna, PT PT - OASIS START OF CARE 01/18/2024 10:30 AM CDT Phone Office Visit [facility] [address] [place] [address] Nikolai Ibarra MD 01/18/2024 Plan of Care Documentation Formerly [facility] [address] [place] [phone] 01/18/2024 Patient Outreach [facility] [address] [place] [address] Maria R Ho, RN Primary RN Care Management; Hospital F/U (Lace 44) 01/18/2024 Travel 01/12/2024 9:13 PM CDT - 01/17/2024 5:23 PM CDT Hospital Encounter [facility] [address] [place] [address] Megan, MD Nedra Valverde, DO Chente Honeycutt, MD Dusty Manjarrez, MD Ricky Alston, Helder Hoover MD [facility] [place] [place], [facility] Hospitalists Of Opioid dependence, uncomplicated (HC) (Primary Dx); Nasal congestion; Chronic pain syndrome; Diabetic ketoacidosis without coma associated with type 1 diabetes mellitus (HC); 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, macular edema presence unspecified, unspecified laterality, unspecified proliferative retinopathy type (HC); Heel ulcer, right, with unspecified severity (HC) Discharge Disposition: Home Health 01/09/2024 Refill [facility] [address] [place] [address] Barbara Valentin, DO Refill Request (Fluoxetine) 01/09/2024 Refill [facility] [address] [place] [address] Elian Humphrey MD Refill Request (Torsemide) 01/06/2024 4:00 PM CDT Office Visit [facility] [address] [place] [address] Toshia Hooks NP Follow Up; Pain (Multi source; was told by her Television Station Manager she can ot use OTC Voltaren gel., which had been helping her O.A. pain (hands; wrists; shoulders; ) ) 01/06/2024 Travel 01/02/2024 Telephone [facility] [address] [place] [address] Barbara Valentin, DO Follow Up 12/27/2023 Refill [facility] [address] [place] [address] Saúlqra Barbara Patricia, DO Refill Request (Pregabalin, Cetirizine) 12/23/2023 2:35 PM CDT Office Visit [facility] [address] [place] [address] Saúlqra Barbara Patricia, DO Diabetes (3 month check, labs); Rash (Rash under breasts? ) 12/23/2023 Travel 12/20/2023 Refill [facility] [address] [place] [address] SaúlqSir sheai Patricia, DO Refill Request (Humalog Kwikpen Insulin) 12/16/2023 Refill [facility] [address] [place] [address] Toshia Hooks, GISEL Refill Request (Patient son called requesting oxycodone 5 mg at [facility].////) 12/15/2023 Telephone [facility] [address] [place] [address] Sir Valentini Patricia, DO Lab 12/08/[address] [address] Saúlqra Barbara Patricia, DO Refill Request (Ulticare Pen Needle, Per-fit Underwear) 12/07/2023 Refill [facility] [address] [place] [address] Saúlqra Barbara Patricia, DO Refill Request (Ulticare Pen Needle) 11/29/2023 Telephone [facility] [address] [place] [address] SaúlqraSiri Patricia, DO Referral 11/29/2023 Refill [facility] [address] [place] [address] Saúlqra Barbara Patricia, DO Refill Request (Cholecalciferol) from Last 3 Months Immunizations Name Administration Dates Next Due AMB Influenza, IIV3 (Age >=3 years)(Flu Clinic Only) 05/17/2013,05/06/2010 COVID-19 vaccine (BookingPal-Bio NTech 30mcg/0.3mL) 12YO+ BIVALENT PF, MDV 04/28/2022 [...] Sign Reading Time Taken Comments Blood Pressure 118/70 02/22/2024 3:20 PM CDT Pulse 66 02/22/2024 3:20 PM CDT Temperature 36.6 ??C (97.8 ??F) 02/22/2024 3:20 PM CD T Respiratory Rate 18 02/22/2024 3:20 PM CDT Oxygen Saturation 95% 02/22/2024 3:20 PM CDT RA Inhaled Oxygen Concentration - - Weight 102.3 kg (225 lb 9.6 oz) 01/16/2024 6:48 AM CDT Height 152.4 cm (5') 01/12/2024 9:27 PM CDT Body Mass Index 44.06 01/12/2024 9:27 PM CDT Plan of Treatment Upcoming Encounters Date Type Department Care Team (Late st Contact Info) Description 02/28/2024 4:00 AM CDT Home Care Visit [facility] [address] [place] [phone] Veda Resendiz, RN [address] [place], [place] [phone] 02/29/2024 4:00 AM CDT Home Care Visit [facility] [address] [place] [phone] 03/06/2024 9:15 AM CDT Home Care Visit [facility] [address] [place] [address] Fabiola Mathis [address] [place] [address] 03/07/2024 4:00 AM CDT Home Care Visit [facility] [address] [place] [address] Geneva Sanchez, LOS 03/13/2024 9:15 AM CDT Home Care Visit [place] [id number] [place] [phone] Fabiola Mathis [address] [place] [address] 03/14/2024 4:00 AM CDT Appointment [place] [address] [place] [address] Geneva Sanchez RN 03/26/2024 3:25 PM CDT Office Visit [facility] [address] [place] [address] Barbara Valentin, [address] [place] [address] 05/04/2024 3:30 PM CDT Phone Office Visit [facility] [address] [facility] [address] [place] [address] Nikolai Ibarra MD [address] [facility] [address] [facility] [address] [place] [address] Health Maintenance Due Date Last Done Comments [...] 03/18/2020, Additional history exists Fecal testing sDNA-FIT ([place] guard) for age 45-75 11/10/2024 11/10/2021 Pneumococcal series for age 6-64 (3 of 3 - PPSV23 or PCV20) 2026 08/17/2016, 08/14/2014, 07/04/2005, Additional history exists Lipids for age 45-75 04/28/2027 04/28/2022, 08/17/2019, 08/31/2018, Additional history exists Tdap Completed 08/25/2010 HIV for age 15-65 Completed 07/21/2015 Hepatitis C screening for ag e 18-79 Completed 02/16/2018 Medical Devices Implanted Type Area Applications Administrator Device Identifier Shelf Expiration Date Model / Serial / Lot [id number] 2x12mm [[id number]] Implanted:Qty: 1 on 08/08/2008 at [facility] Explanted:at [facility] (Quantity not on file) Stomach [employer] [id number]# / [id number] / Stem Compnt Primary 8mm Mini - [id number] Implanted:Qty: 1 on 03/17/2011 at [facility] Right: Shoulder BIOMET [id number]# / / [id number] Head Hum Bio-Mod [id number] - [id number] Implanted:Qty: 1 on 03/17/2011 at [facility] Right: Shoulder BIOMET 340307# / / [id number] Base Glenoid Hybrid 4mm Sm - [id number] Implanted:Qty: 1 on 03/17/2011 at [facility] Right: Shoulder BIOMET 904655# / / [id number] Cmnt 1/2 Dosehowmedica - [id number] Implanted:Qty: 1 on 03/17/2011 at [facility] Right: Shoulder [employer] 6188-1-01 0# / / [id number] Post Glenoid Hybrid Regenerex - [id number] Implanted:Qty: 1 on 03/17/2011 at [facility] Right: Shoulder BIOMET [id number] # / / [id number] Head Humeral 44x15 Co Cr Biomodular - [id number] Implanted:Qty: 1 on 07/12/2012 at [facility] Left: Shoulder BIOMET [id number]# / / [id number] Shoulder Stem Implanted:Qty: 1 on 07/12/2012 at [facility] Left: Shoulder [id number] / / [id number] Description:SHOULDER STEM Cmnt Bone 1/2 Dosehowmedica - [id number] Implanted:Qty: 1 on 07/12/2012 at [facility] Left: Shoulder [employer] 6188-1-01 0# / / [id number] Post Glenoid Hybrid Regenerex - [id number] Implanted:Qty: 1 on 07/12/2012 at [facility] Left: Shoulder BIOMET PT-[id number] # / / [id number] Base Glenoid Hybrid 4mm Sm - [id number] Implanted:Qty: 1 on 07/12/2012 at [facility] Left: Shoulder BIOMET [id number]# / / [id number] Procedures Procedure Name Priority Date/Time Associated Diagnosis [...] HIV 1/2 Add On 07/21/2015 9:40 AM ASSOCIATE PROFESSOR OF ENGLISH SPOOLER OPERATOR THIN PREP PAP SCREEN IMAGED Routine 08/17/2012 4:02 PM ASSOCIATE PROFESSOR OF ENGLISH Screening for malignant neoplasm of the cervix [...] - 100 mg/dL 01/17/2024 11:35 AM CDT [facility] Blood BLOOD SPECIMEN / Unknown 01/17/2024 11:27 AM CDT 01/17/2024 11:35 AM CDT Helder García MD CHEMISTRY Performing Organization Address [facility] de Phone Number [facility] [address] [place] [address], * (ABNORMAL) CREATININE (01/17/2024 8:20 AM CDT) Only the most recent of3 resultswithin the time period is included. eGFR 47(L) >90 mL/min/1.7 3m2 01/17/2024 9:06 AM CDT [facility] Comment:As of 2021, eG FR is calculated by the CKD-EPI creatinine equation without race adjustment. ??eGFR can be influenced by muscle mass, exercise, and diet. ??The reported eGFR is an estimation only and is only applicable if the renal function is stable. CREATININE 1.28(H) 0.50 - 0.90 mg/dL 01/17/2024 9:06 AM CDT [facility] Blood BLOOD SPECIMEN / Unknown Non-Lab Venipuncture / Unknown 01/17/2024 8:20 AM CDT 01/17/2024 8:26 AM CDT Helder García MD CHEMISTRY Performing Organization Address [facility] Phone Number [facility] [address] [place] [address], * PHOSPHORUS (01/17/2024 8:20 AM CDT) Only the most recent of5 resultswithin the time period is included. PHOSPHORUS 2.6 2.5 - 4.5 mg/dL 01/17/2024 9:06 AM CDT [facility] Blood BLOOD SPECIMEN / Unknown Non-Lab Venipuncture / Unknown 01/17/2024 8:20 AM CDT 01/17/2024 8:26 AM CDT Sarah Betancourt RN [facility]MISTRY [facility] [address] [place] [address], * (ABNORMAL) BASIC METABOLIC PANEL (01/17/2024 8:20 AM CDT) Only the most recent of5 resultswithin the time period is included. SODIUM 139 136 - 145 mmol/L 01/17/2024 12:35 PM CDT [facility] POTASSIUM 3.9 3.5 - 5.1 mmol/L 01/17/2024 12:35 PM CDT [facility] CHLORIDE 103 98 - 107 mmol/L 01/17/2024 12:35 PM T [facility] CO2,TOTAL 24 22 - 29 mmol/L 01/17/2024 12:35 PM T [facility] ANION GAP 12 5 - 18 01/17/2024 12:35 PM T [facility] GLUCOSE 162(H) 70 - 99 mg/dL 01/17/2024 12:35 PM T [facility] CALCIUM 8.7(L) 8.8 - 10.2 mg/dL 01/17/2024 12:35 PM T [facility] BUN 17 8 - 23 mg/dL 01/17/2024 12:35 PM T [facility] CREATININE 1.31(H) 0.50 - 0.90 mg/dL 01/17/2024 12:35 PM [facility] BUN/CREAT RATIO 13 10 - 20 12:35 PM T [facility] eGFR 46(L) >90 mL/min/1.7 3m2 01/17/2024 12:35 PM T [facility] Comment: As of [...] Helder García MD CHEMISTRY Performing Organization Address [facility] de Phone Number [facility] [address] [place] [address], * CLOSTRIDIOIDES DIFFICILE TOXIN PCR (01/16/2024 12:27 PM CDT) Pathologist [facility] CLOSTRIDIUM DIFFICILE PCR Negative 01/16/2024 2:18 PM CDT [facility] PRESUMPTIVE NAP1 STRAIN Negative 01/16/2024 2:18 PM CDT [facility] Stool STOOL SPECIMEN / Unknown Non-Blood / Unknown 01/16/2024 12:27 PM CDT 01/16/2024 12:51 PM CDT Narrative [facility] - 01/16/2024 2:18 PM CDT The NAP1 (027 or BI) strain is a hypervirulent strain. Detection may be useful for epidemiological purposes. Helder García MD MICROBIOLOGY Performing Organization Address [facility] de Phone Number [facility] [address] [place] [address], * SCAN CORRESP-EKG RESULTS (01/16/2024 9:07 AM CDT) Narrative 01/16/2024 9:07 AM CDT Ordered by an unspecified provider. Other Clinical Staff OTHER * (ABNORMAL) HEMOGLOBIN (01/16/2024 6:30 AM CDT) Only the most recent of2 resultswithin the time period is included. HEMOGLOBIN 8.9(L) 12.0 - 16.0 g/dL 01/16/2024 7:13 AM CDT [facility] MCV 91 80 - 100 fL 01/16/2024 7:13 AM CDT [facility] Blood BLOOD SPECIMEN / Unknown Venipuncture / Unknown 01/16/2024 6:30 AM CDT 01/16/2024 6:58 AM CDT Fabrizio Montano MD HEMATOLOGY Performing Organization Address [facility] Co de Phone Number [facility] [address] [place] [address], [place] * VANCOMYCIN (01/16/2024 6:30 AM CDT) Only the most recent of3 resultswithin the time period is included. VANCOMYCIN 13.0 ug/mL 01/16/2024 7:42 AM CDT [facility] Comment:No Reference Range D efined. DATE OF LAST DOSE,RANDOM Not Given 01/16/2024 7:42 AM CDT [facility] TIME OF LAST DOSE,RANDOM Not Given 01/16/2024 7:42 AM CDT [facility] Blood BLOOD SPECIMEN / Unknown Venipuncture / Unknown 01/16/2024 6:30 AM CDT 01/16/2024 6:58 AM CDT Barbara Holcomb NP CHEMISTRY Performing Organization Address [facility] Co de Phone Number [facility] [address] [place] [address], [place] * (ABNORMAL) PLATELET COUNT (01/15/2024 6:02 AM CDT) PLATELET COUNT 166 140 - 440 thou/cu mm 01/15/2024 6:44 AM CDT [facility] MPV 11.2(H) 6.5 - 11.0 fL 01/15/2024 6:44 AM CDT [facility] Blood BLOOD SPECIMEN / Unknown Venipuncture / Unknown 01/15/2024 6:02 AM CDT 01/15/2024 6:26 AM CDT Fabrizio Montano MD HEMATOLOGY Performing Organization Address City/[facility]/ZIP Co de Phone Number [facility] [address] [place] [address], [place] * WHITE BLOOD COUNT (01/15/2024 6:02 AM CDT) WHITE BLOOD COUNT 4.9 4.5 - 11.0 thou/cu mm 01/15/2024 6:44 AM CDT [facility] NRBC 0.0 % 01/15/2024 6:44 AM CDT [facility] ABS NRBC 0.0 thou /cu mm 01/15/2024 6:44 AM CDT [facility] Blood BLOOD SPECIMEN / Unknown Venipuncture / Unknown 01/15/2024 6:02 AM CDT 01/15/2024 6:26 AM CDT Fabrizio Montano MD HEMATOLOGY Performing Organization Address City/[facility] Co de Phone Number [facility] [address] [place] [address], [place] * Sodium AM (01/15/2024 6:02 AM CDT) SODIUM 142 136 - 145 mmol/L 01/15/2024 7:13 AM CDT [facility] Blood BLOOD SPECIMEN / Unknown Venipuncture / Unknown 01/15/2024 6:02 AM CDT 01/15/2024 6:27 AM CDT Fabrizio Montano MD CHEMISTRY [facility] [address] [place] [address], [place] * Potassium AM (01/15/2024 6:02 AM CDT) Only the most recent of3 resultswithin the time period is included. POTASSIUM 4.4 3.5 - 5.1 mmol/L 01/15/2024 7:13 AM CDT [facility] Blood BLOOD SPECIMEN / Unknown Venipuncture / Unknown 01/15/2024 6:02 AM CDT 01/15/2024 6:27 AM CDT Fabrizio Montano MD [facility]Y [facility] [address] [place] [address], * SCAN-CARDIAC STRIP (01/14/2024 7:07 AM CDT) Scanner OTHER * (ABNORMAL) CBC W PLT NO DIFF (01/14/2024 5:28 AM CDT) WHITE BLOOD COUNT 8.5 4.5 - 11.0 thou/cu mm 01/14/2024 6:33 AM CDT [facility] RED BLOOD COUNT 3.04(L) 4.00 - 5.20 mil/cu mm 01/14/2024 6:33 AM CDT [facility] HEMOGLOBIN 8.9(L) 12.0 - 16.0 g/dL 01/14/2024 6:33 AM CDT [facility] HEMATOCRIT 27.5(L) 33.0 - 51.0 % 01/14/2024 6:33 AM CDT [facility] MCV 91 80 - 100 fL 01/14/2024 6:33 AM CDT [facility] MCH 29.3 26.0 - 34.0 pg 01/14/2024 6:33 AM CDT [facility] MCHC 32.4 32.0 - 36.0 g/dL 01/14/2024 6:33 AM T [facility] RDW 14.4 11.5 - 15.5 % 01/14/2024 6:33 AM CDT [facility] PLATELET COUNT 198 140 - 440 thou/cu mm 01/14/2024 6:33 AM CDT [facility] MPV 11.4(H) 6.5 - 11.0 fL 01/14/2024 6:33 AM CDT [facility] NRBC 0.0 % 01/14/2024 6:33 AM CDT [facility] ABS NRBC 0.0 thou /cu mm 01/14/2024 6:33 AM CDT [facility] Blood BLOOD SPECIMEN / Unknown Non-Lab Venipuncture / Unknown 01/14/2024 5:28 AM CDT 01/14/2024 6:31 AM CDT Barbara Holcomb NP HEMATOLOGY Performing Organization Address City/[facility]/ZIP Co de Phone Number [facility] [address] [place] [phone], [place] * (ABNORMAL) [facility]UM IONIZED HOSPITAL DRAW ONLY (01/14/2024 5:28 AM CDT) Only the most recent of3 resultswithin the time period is included. CALCIUM,IONIZE D 1.30(H) 1.15 - 1.27 mmol/L 01/14/2024 6:03 AM CDT [facility] Blood BLOOD SPECIMEN / Unknown Non-Lab Venipuncture / Unknown 01/14/2024 5:28 AM CDT 01/14/2024 5:49 AM CDT Grace Eldridge MD CHEMISTRY [facility] [address] [place] [address], [place] * ECHO TTE COMPLETE W CONTRAST (01/13/2024 3:56 PM CDT) AORTIC VALVE MEAN PG 7 mmHg EJECTION FRACTION 64 % LVEDD 4.1 cm EJECTION FRACTION 60 - 65% Anatomical Region Laterality Modality Ultrasound 01/13/2024 2:53 PM CDT Narrative 01/13/2024 4:39 PM CDT ECHOCARDIOGRAM ALIDA KUHN ? Accession#: ?? [id number] : ?1960 63 years Study Date: ?? 01/13/2024 2:53:14 PM Gender: F ?BP: ? 114/44 mmHg Height: 152.00 cm ?BSA: ?1.93 m? ? ? Weight: 98.00 kg ? Tech: ? KBA ? Referring MD: BARBARA HOLCOMB Site: ? [facility] Patient Location: Inpatient. Procedure: 2D w/ [...] 2 ml diluted Definity, lot #[id number], [facility]# [id number] was administered peripherally to enhance visualization of all left ventricular segments. . This study was interpreted by an [facility] accredited facility. ??Final ?? Procedure Note Travon Blood MD - 01/13/2024 ECHOCARDIOGRAM ALIDA KUHN : 1960 63 years Study Date: 01/13/2024 2:53:14 PM Gender: F BP: 114/44 mmHg Height: 152.00 cm BSA: 1.93 m? ? ? Weight: 98.00 kg Tech: PASQUALE Referring MD: BARBARA HOLCOMB Site: [facility] Patient Location: Inpatient. Procedure: 2D w/ [...] 2 ml diluted Definity, lot #[id number], [facility]#[id number] was administered peripherally to enhance visualization of allleft ventricular segments. . This study was interpreted by an [facility] accredited facility. Final Barbara Holcomb CATALYST MANUFACTURING OPERATOR ECHO ORD * US ARTERIAL LOWER EXTREMITY [...] 125 mmHg Left Brachial: 111 mmHg Right POKER PROP PLAYER: Noncompressible Right DPA: 115 mmHg (SAMUEL 0.92) Left POKER PROP PLAYER: Noncompressible Left DPA: Noncompressible SAMUEL: 1.0-1.4 - normal 0.9-0.99 - borderline 0.80-0.89 - mild 0.50-0.79 - moderate 0.30-0.49 - severe < 0.30 - critical RIGHT: BARREL DRILLER PROX: 204 cm/sec; triphasic waveforms BARREL DRILLER DIST: 138 cm/sec; triphasic waveforms PFA: 97 cm/sec; triphasic waveforms SFA PROX: 140, 111 cm/sec; triphasic waveforms SFA MID: 113, 74 cm/sec; triphasic waveforms SFA DIST: 107, 113 cm/sec; triphasic waveforms POP PROX: 105 cm/sec; triphasic waveforms POP DIST: 89 cm/sec; triphasic waveforms POKER PROP PLAYER: 32 cm/sec; triphasic waveforms KAITLYN: 58 cm/sec; triphasic waveforms DPA: 56 cm/sec; triphasic waveforms LEFT: BARREL DRILLER PROX: 193 cm/sec; triphasic waveforms BARREL DRILLER DIST: 152 cm/sec; triphasic waveforms PFA: 98 cm/sec; triphasic waveforms SFA PROX: 119, 109 cm/sec; triphasic waveforms SFA MID: 103, 102 cm/sec; triphasic waveforms SFA DIST: 103, 100 cm/sec; triphasic waveforms POP PROX: 124 cm/sec; triphasic waveforms POP DIST: 85 cm/sec; triphasic waveforms POKER PROP PLAYER: 169 cm/sec; triphasic waveforms KAITLYN: 91 cm/sec; [...] 125 mmHg Left Brachial: 111 mmHg Right POKER PROP PLAYER: Noncompressible Right DPA: 115 mmHg (SAMUEL 0.92) Left POKER PROP PLAYER: Noncompressible Left DPA: Noncompressible SAMUEL: 1.0-1.4 - normal 0.9-0.99 - borderline 0.80-0.89 - mild 0.50-0.79 - moderate 0.30-0.49 - severe < 0.30 - critical RIGHT: BARREL DRILLER PROX: 204 cm/sec; triphasic waveforms BARREL DRILLER DIST: 138 cm/sec; triphasic waveforms PFA: 97 cm/sec; triphasic waveforms SFA PROX: 140, 111 cm/sec; triphasic waveforms SFA MID: 113, 74 cm/sec; triphasic waveforms SFA DIST: 107, 113 cm/sec; triphasic waveforms POP PROX: 105 cm/sec; triphasic waveforms POP DIST: 89 cm/sec; triphasic waveforms POKER PROP PLAYER: 32 cm/sec; triphasic waveforms KAITLYN: 58 cm/sec; triphasic waveforms DPA: 56 cm/sec; triphasic waveforms LEFT: BARREL DRILLER PROX: 193 cm/sec; triphasic waveforms BARREL DRILLER DIST: 152 cm/sec; triphasic waveforms PFA: 98 cm/sec; triphasic waveforms SFA PROX: 119, 109 cm/sec; triphasic waveforms SFA MID: 103, 102 cm/sec; triphasic waveforms SFA DIST: 103, 100 cm/sec; triphasic waveforms POP PROX: 124 cm/sec; triphasic waveforms POP DIST: 85 cm/sec; triphasic waveforms POKER PROP PLAYER: 169 cm/sec; triphasic waveforms KAITLYN: 91 cm/sec; [...] 01/14/2024 2:34:58 AM (Electronically Signed) Barbara Holcomb CATALYST MANUFACTURING OPERATOR US * XR FOOT 3 VIEWS LEFT [...] tissue wound is not marked. Freya Schafer CATALYST MANUFACTURING OPERATOR GENERAL IMAGI NG * (ABNORMAL) AEROBIC BACTERIAL CULTURE, STAIN (01/13/2024 11:49 AM CDT) CULTURE RESULT(A) 01/16/2024 2:44 PM CDT [facility] CULTURE 3+ Corynebacterium striatum 01/16/2024 2:44 PM CDT [facility] CULTURE 2+ Mixed oni present 01/16/2024 2:44 PM CDT [facility] GRAM STAIN No PMNs 01/16/2024 2:44 PM CDT [facility] GRAM STAIN 2+ RBCs 01/16/2024 2:44 PM CDT [facility] GRAM STAIN No Epithelial cells 01/15 2:44 PM CDT [facility] GRAM STAIN 2+ Gram Positive Bacilli 01/16/2024 2:44 PM CDT [facility] Other (Other) Non-Blood / Unknown 01/13/2024 11:49 AM CDT 01/13/2024 12:00 PM CDT Narrative [facility] - 01/16/2024 2:44 PM CDT Mixed oni; No Staphylococcus aureus, beta-Streptococcus, Streptococcus pneumoniae, or Pseudomonas aeruginosa isolated. Freya Schafer NP MICROBIOLOGY Performing Organization Address [facility]/ZIP Co de Phone Number [facility] [address] [address], [place] * ANAEROBIC CULTURE (01/13/2024 11:49 AM CDT) CULTURE No anaerobes isolated 01/19/2024 10:01 AM CDT [facility] Other (Other) Non-Blood / Unknown 01/13/2024 11:49 AM CDT 01/13/2024 12:00 PM CDT Freya Schafer NP MICROBIOLOGY Performing Organization Address [facility] Co de Phone Number [facility] [address] [phone], [place] * (ABNORMAL) Electrolytes Panel - DKA (01/13/2024 10:53 AM CDT) Only the most recent of3 resultswithin the time period is included. SODIUM 140 136 - 145 mmol/L 01/13/2024 11:36 AM CDT [facility] POTASSIUM 5.2(H) 3.5 - 5.1 mmol/L 01/13/2024 11:36 AM CDT [facility] CHLORIDE 107 98 - 107 mmol/L 01/13/2024 11:36 AM CDT [facility] CO2,TOTAL 21(L) 22 - 29 mmol/L 01/13/2024 11:36 AM CDT [facility] ANION GAP 12 5 - 18 01/13/2024 11:36 AM CDT [facility] Blood BLOOD SPECIMEN / Unknown Non-Lab Venipuncture / Unknown 01/13/2024 10:53 AM CDT 01/13/2024 11:01 AM CDT Ifeanyi Hernández RN CHEMISTRY Performing Organization Address [facility]/ZIP Co de Phone Number [facility] [address] [place] [phone], [place] * SCAN-CARDIAC STRIP (01/13/2024 8:00 AM CDT) Scanner OTHER * MAGNESIUM (01/13/2024 4:22 AM CDT) Only the most recent of2 resultswithin the time period is included. MAGNESIUM 1.9 1.6 - 2.4 mg/dL 01/13/2024 5:07 AM CDT [facility] Blood BLOOD SPECIMEN / Unknown Non-Lab Venipuncture / Unknown 01/13/2024 4:22 AM CDT 01/13/2024 4:41 AM CDT Ifeanyi Hernández RN CHEMISTRY [facility] [address] [place] [address], * (ABNORMAL) Serum Glucose - DKA (01/13/2024 1:52 AM CDT) Only the most recent of2 resultswithin the time period is included. GLUCOSE,RANDOM 459(H) 70 - 139 mg/dL 01/13/2024 2:46 AM CDT [facility] Blood BLOOD SPECIMEN / Unknown Non-Lab Venipuncture / Unknown 01/13/2024 1:52 AM CDT 01/13/2024 2:03 AM CDT Emily Guzman MD CHEMISTRY [facility] [address] [place] [address], * (ABNORMAL) TROPONIN T (HS) ONE TIME (01/12/2024 11:39 PM CDT) TROPONIN T HS 45(H) 6-10 ng/L ng/L 01/13/2024 12:22 AM CDT [facility] Blood BLOOD SPECIMEN / Unknown Non-Lab Venipuncture / Unknown 01/12/2024 11:39 PM CDT 01/12/2024 11:45 PM CDT Emily Guzman MD CHEMISTRY [facility] [address] [place] [phone], [place] * 12 Lead EKG (01/12/2024 10:16 [...] NOW QTc 456 ms BEYOND NOW P [place] 72 degrees BEYOND NOW R [place] -31 degrees BEYOND NOW T [place] 69 degrees BEYOND NOW 01/12/2024 10:1 6 PM CDT 01/13/2024 8:20 PM CDT Emily Guzman MD EKG ORD Performing Organization Address [facility] Co de Phone Number BE[place] NOW [place], [place] * MRSA/SA PCR (01/12/2024 10:07 PM CDT) [facility] MRSA DNA PCR Negative Negative 01/12/2024 11:33 PM CDT [facility]- NTRAL LABORATORY STAPHYLOCOCCUS AUREUS PCR Negative Negative 01/12/2024 11:33 PM CDT [facility] Other SPECIMEN FROM INTERNAL NOSE / Unknown Non-Blood / Unknown 01/12/2024 10:07 PM CDT 01/12/2024 10:13 PM CDT Narrative [facility] - 01/12/2024 11:33 PM CDT Test result does not preclude MRSA or SA nasal colonization. Chaparro Sneed DO MICROBIOLOGY Performing Organization Address City/[facility]/ZIP Co de Phone Number [facility] [address] [place] [address], [place] * (ABNORMAL) Urine Culture (01/12/2024 10:07 PM CDT) CULTURE RESULT(A) 01/16/2024 6:58 AM CDT [facility] CULTURE 10,000-50,000 CFU/mL Proteus mirabilis 01/16/2024 6:58 AM CDT [facility] CULTURE 50,000-100,000 CFU/mL Danita albicans 01/16/2024 6:58 AM CDT [facility] Urine URINE SPECIMEN / Unknown Non-Blood / Unknown 01/12/2024 10:07 PM CDT 01/12/2024 10:13 PM CDT Narrative Organism Antibiotic Method Susceptibility Proteus mirabilis TRIMETHOPRIM/SULF <=1/: S Proteus mirabilis AMPICILLIN <=2: S Proteus [...] 128: R Emily Guzman MD MICROBIOL [facility] [address] [place] [address], * Blood Culture (01/12/2024 9:40 PM CDT) Only the most recent of2 resultswithin the time period is included. CULTURE No Growth. 01/16/2024 11:23 PM CDT [facility] Blood BLOOD SPECIMEN / Unknown Venipuncture / Unknown 01/12/2024 9:40 PM CDT 01/12/2024 9:52 PM CDT [facility] LAB[facility]AT[facility] - 01/16/2024 11:23 PM CDT Low volume blood culture received; possible false negative culture. Emily Guzman MD MICROBIOL OGY [facility] [address] [place] [address], * (ABNORMAL) TROPONIN T(HS) ACUTE W/2HR REFLEX (01/12/2024 9:37 PM CDT) TROPONIN T HS 47(H) 6-10 ng/L ng/L 01/12/2024 10:16 PM CDT [facility] Blood BLOOD SPECIMEN / Unknown Non-Lab Venipuncture / Unknown 01/12/2024 9:37 PM CDT 01/12/2024 9:46 PM CDT [facility] LAB[facility] - 01/12/2024 10:16 PM CDT hs-cTnT [...] department patient population. Emily Guzman MD [facility]MISTRY [facility] [address] [place] [address], * (ABNORMAL) CBC WITH AUTO DIFFERENTIAL (01/12/2024 9:37 PM CDT) WHITE BLOOD COUNT 14.9(H) 4.5 - 11.0 thou/cu mm 01/12/2024 9:54 PM CDT [facility] RED BLOOD COUNT 3.61(L) 4.00 - 5.20 mil/cu mm 01/12/2024 9:54 PM CDT [facility] HEMOGLOBIN 10.5(L) 12.0 - 16.0 g/dL 01/12/2024 9:54 PM CDT [facility] HEMATOCRIT 32.6(L) 33.0 - 51.0 % 01/12/2024 9:54 PM CDT [facility] MCV 90 80 - 100 fL 01/12/2024 9:54 PM CDT [facility] MCH 29.1 26.0 - 34.0 pg 01/12/2024 9:54 PM CDT [facility] MCHC 32.2 32.0 - 36.0 g/dL 01/12/2024 9:54 PM CDT [facility] RDW 13.2 11.5 - 15.5 % 01/12/2024 9:54 PM CDT [facility] PLATELET COUNT 273 140 - 440 thou/cu mm 01/12/2024 9:54 PM CDT [facility] MPV 11.0 6.5 - 11.0 fL 01/12/2024 9:54 PM CDT [facility] NRBC 0.0 % 01/12/2024 9:54 PM CDT [facility] ABS NRBC 0.0 thou /cu mm 01/12/2024 9:54 PM CDT [facility] % NEUT 80.3 % 01/12/2024 9:54 PM CDT [facility] % LYMPH 9.6 % 01/12/2024 9:54 PM CDT [facility] % MONO 9.2 % 01/12/2024 9:54 PM CDT [facility] % EOS 0.1 % 01/12/2024 9:54 PM CDT [facility] % BASO 0.1 % 01/12/2024 9:54 PM CDT [facility] % IMMATURE GRAN (METAS,MYELOS,CT OS) 0.7 % 01/12/2024 9:54 PM CDT [facility] ABSOLUTE NEUTROPHILS 12.0(H) 1.7 - 7.0 thou/cu mm 01/12/2024 9:54 PM CDT [facility] ABSOLUTE LYMPHOCYTES 1.4 0.9 - 2.9 thou/cu mm 01/12/2024 9:54 PM CDT [facility] ABSOLUTE MONOCYTES 1.4(H) <0.9 thou/cu mm 01/12/2024 9:54 PM CDT [facility] ABSOLUTE EOSINOPHILS 0.0 <0.5 thou/cu mm 01/12/2024 9:54 PM CDT [facility] ABSOLUTE BASOPHILS 0.0 <0.3 thou/cu mm 01/12/2024 9:54 PM CDT [facility] ABSOLUTE IMMATURE GRANULOCYTES(MET ,MYELOS,PROS) 0.1 <0.3 thou/cu mm 01/12/2024 9:54 PM CDT [facility] Blood BLOOD SPECIMEN / Unknown Non-Lab Venipuncture / Unknown 01/12/2024 9:37 PM CDT 01/12/2024 9:46 PM CDT Emily Guzman MD HEMATOLOG Y [facility] [address] [place] [phone], * (ABNORMAL) BLOOD GAS,VENOUS (01/12/2024 9:37 PM CDT) PH, VENOUS 7.25(L) 7.32 - 7.43 01/12/2024 9:52 PM CDT [facility] PCO2, VENOUS 44 41 - 51 mmHg 01/12/2024 9:52 PM CDT [facility] PO2, VENOUS 48(H) 35 - 40 mmHg 01/12/2024 9:52 PM CDT [facility] HCO3,VENOUS 19(L) 22 - 29 mmol/L 01/12/2024 9:52 PM CDT [facility] BASE EXCESS, VENOUS, POCT -7.7(L) -2.0 - 3.0 01/12/2024 9:52 PM CDT [facility] O2 SATURATION, VENOUS 85(H) 70 - 75 % 01/12/2024 9:52 PM CDT [facility] INSPIRED O2 21 01/12/2024 9:52 PM CDT [facility] Comment:Unit of Measure: Lit ers (L) if <=20; Percent (%) if >20 PATIENT TEMPERATURE 36.9 Degrees C 01/12/2024 9:52 PM CDT [facility] Blood VENOUS BLOOD SPECIMEN / Unknown Non-Lab Venipuncture / Unknown 01/12/2024 9:37 PM CDT 01/12/2024 9:46 PM CDT Emily Guzman MD CHEMISTRY Performing Organization Address [facility] Co de Phone Number [facility] [address] [place] [phone], [place] * Protime - INR (01/12/2024 9:37 PM CDT) INR 1.0 <1.3 01/12/2024 9:56 PM CDT [facility] PROTIME 11.5 10.3 - 12.3 sec 01/12/2024 9:56 PM CDT [facility] Blood BLOOD SPECIMEN / Unknown Non-Lab Venipuncture / Unknown 01/12/2024 9:37 PM CDT 01/12/2024 9:46 PM CDT Narrative [facility] - 01/12/2024 9:56 PM CDT [...] Guzman MD HEMATOLOG Y Performing Organization Address [facility] Co de Phone Number [facility] [address] [place] [phone], [place] * (ABNORMAL) HEMOGLOBIN A1C MONITORING (POCT) (01/12/2024 9:37 PM CDT) Only the most recent of2 resultswithin the time period is included. [facility] HEMOGLOBIN A1C MONITORING (POCT) 9.3(H) <=6.4 % 01/14/2024 10:29 AM CDT [facility] Blood BLOOD SPECIMEN / Unknown Non-Lab Venipuncture / Unknown 01/12/2024 9:37 PM CDT 01/12/2024 9:46 PM CDT Narrative [facility] - 01/14/2024 10:29 AM CDT [...] with: Untreated Anemias, Splenectomy ? Barbara Holcomb CATALYST MANUFACTURING OPERATOR CHEMISTRY [facility] [address] [place] [address], * (ABNORMAL) Hepatic Function Panel (01/12/2024 9:37 PM CDT) [facility] ALBUMIN 3.2(L) 4.0 - 4.9 g/dL 01/12/2024 10:16 PM CDT [facility] PROTEIN,TOTAL 6.4 6.0 - 8.0 g/dL 01/12/2024 10:16 PM CDT [facility] BILIRUBIN,TOTAL 0.2 0.0 - 1.2 mg/dL 01/12/2024 10:16 PM CDT [facility] BILIRUBIN,DIRECT <0.2 0.0 - 0.3 mg/dL 01/12/2024 10:16 PM CDT [facility] LAB[facility] BILIRUBIN,INDIRE CT 01/12/2024 10:16 PM CDT [facility] Comment:Unable to calculate, Direct Bili <0.2 ALK PHOSPHATASE 122(H) 35 - 104 IU/L 01/12/2024 10:16 PM CDT [facility] ALT (SGPT) 21 10 - 35 IU/L 01/12/2024 10:16 PM CDT [facility] AST (SGOT) 20 10 - 35 IU/L 01/12/2024 10:16 PM CDT [facility] Blood BLOOD SPECIMEN / Unknown Non-Lab Venipuncture / Unknown 01/12/2024 9:37 PM CDT 01/12/2024 9:46 PM CDT Emily Guzman MD CHEMISTRY [facility] [address] [place] [phone], * SCAN-CARDIAC STRIP (01/12/2024 9:20 PM CDT) [...] health care provider. XR MAMMO BILAT SCREENING [[id number]] CLINICAL HISTORY: ??This is an asymptomatic 61 y.o. patient. INDICATION FOR EXAM: Mammogram Screening. TECHNIQUE: CC & MLO views were obtained. ??This study was evaluated with the assistance of Computer-Aided Detection. COMPARISON FILM: Yes 03/02/18 [facility] [employer] 07/26/13 [facility] FINDINGS: ??The breasts are extremely dense, which lowers the sensitivity of mammography. There are no dominant masses, suspicious micro calcifications or areas of architectural distortion. Shania Montiel MD MAMMO * LIPID PANEL W REFLEX MEASURED LDL (04/28/2022 1:44 PM CDT) CHOLESTEROL,TOTAL 139 100 - 199 mg/dL 04/30/2022 6:25 PM CDT [facility] TR[facility] LAB[facility] TRIGLYCERIDES 141 <150 mg/dL 04/30/2022 6:25 PM CDT [facility] HDL CHOLESTEROL 42 >40 mg/dL 6:25 PM CDT [facility] NON-HDL CHOLESTEROL 97 <145 mg/dl 04/30/2022 6:25 PM CDT [facility] LAB[facility] CHOL/HDL RATIO 3.31 <4.50 04/30/2022 6:25 PM CDT [facility] LDL CHOLESTEROL 69 <=130 mg/dL 04/30/2022 6:25 PM CDT [facility] VLDL CHOLESTEROL 28 <=30 mg/dL 04/30/2022 6:25 PM CDT [facility] PROVIDER ORDERED STATUS RANDOM 04/30/2022 6:25 PM CDT [facility] Blood BLOOD SPECIMEN / Unknown Venipuncture / Unknown 04/28/2022 1:44 PM CDT 04/28/2022 1:45 PM CDT Shania Montiel MD CHEMISTRY [facility] [address] [place] [address], * FECAL DNA (AKA COLOGUARD) (11/10/2021 1:00 PM CDT) Shania Montiel MD COMMUNICATION ORD * ANTI HCV [[id number]] (02/16/2018 4:20 PM CDT) [facility] HEPATITIS C ANTIBODY Non-React alex Non-React alex 02/17/2018 2:48 PM CDT [facility] Comment:Antibodies to HCV no t detected; does not exclude the possibility of exposure to HCV. Blood BLOOD SPECIMEN / Unknown Butterfly / Unknown 02/16/2018 4:20 PM CDT 02/16/2018 4:20 PM CDT Coleman Plata MD SEND OUT[facility] [address] [place] [address], * HIV 1&2 TODAY (07/21/2015 9:40 AM ASSOCIATE PROFESSOR OF ENGLISH) [facility] HIV-1/HIV-2 ANTIBODY Non-Reacti ve Non-Reacti ve 07/21/2015 10:31 AM ASSOCIATE PROFESSOR OF ENGLISH [facility] Blood specimen (specimen) BLOOD SPECIMEN / Unknown Venipuncture / Unknown 07/21/2015 9:40 AM ASSOCIATE PROFESSOR OF ENGLISH 07/21/2015 9:47 AM ASSOCIATE PROFESSOR OF ENGLISH Narrative [facility] - 07/21/2015 10:31 AM ASSOCIATE PROFESSOR OF ENGLISH HIV-1 p24 and HIV-1/HIV-2 Ab not detected Kait Morales DO [facility] [address] [place] [address], * SPOOLER OPERATOR THIN PREP PAP SCREEN IMAGED (08/17/2012 4:02 PM ASSOCIATE PROFESSOR OF ENGLISH) [facility] CYTOLOGY CYTOPATHOLOGY REPORT [facility] Status: Final Status ?[id number] CLINICAL INFORMATION Last Date of LMP ? :07/03/2012 Last Pap Date ?:02/01/2011 Last Pap Result ?:NIL ABN Zwolle/Bx Past 5 YRS :None Hormone Usage ?:BCP/OCP/Patch/R ing Menstrual Status ? :Regular Periods Zwolle/Bx done today ? :No Additional Information :None given HPV Request ?:HPV if ASCUS SPECIMEN SOURCE ?:Cervical/vagina l ThinPrep Vial, screening SPECIMEN ADEQUACY ?:Satisfactory for evaluation No endocervical ? component seen. INTERPRETATION/RES ULT Negative for intraepithelial lesion or malignancy (NIL) Cytology 1st Screener ??:cam Signed by ?:cam This specimen was screened by the FDA approved [employer] System and manually reviewed. NOTE: ??The [...] COLLECTED:08/17/12 ? ACCESSIONED: ??08/18/12 ?? SIGNED: ??08/21/12 [facility] [place] CODE NIL [facility] Tissue specimen (specimen) (Cervical/Vagina l) 08/17/2012 4:02 PM ASSOCIATE PROFESSOR OF ENGLISH 08/17/2012 4:00 PM ASSOCIATE PROFESSOR OF ENGLISH Coleman Plata MD PATHOLOGY/CYTOLOGY [facility] INTERNAL ZIP [address] [place], [place] [id number] from Last 3 Months or Most Recently [...] year (per report from [facility], not available in CareEverywhere), 04/19/18 L cheek abscess exclusions for contact precaution discontinuation (if > 12 months since positive culture): resides in acute/rodent exterminator care, receiving hemodialysis, has chronic open wounds/skin [...] 8:01 PM 07/15/2012 6:55 PM Care Teams Telegraph Operator Relationship Specialty Start Date End Date Barbara Valentin DO [address] [address] PCP - General Family Practice 11/15/22 Julio Ibrahim MD [address] [place] [id number] Surgery - Orthopedics 02/01/11 Chuy Doss MD [address] [place] [address] [id number] Surgery - Vascular 02/01/11 Markel Strong MD [address] [place] [address] Provider Family Practice 08/08/20 Nikolai Ibarra MD [address] Donahue [facility] [address] [place] [address] Endocrinology 09/07/22 [facility] [address] [place] [id number] 01/17/24 Suad Ng/ [employer] CM Avionics Manager 07/14/17 [facility] Home Health Nurse 07/01/17 [facility] Home Health Aide 07/14/17 [facility] Electrician Technician/ Ally Christianson [address] [place] [address] Avionics Manager 07/07/17
== END 2024-02-23 14:56 | disposition home or self-care (01) ==
LOC: WOUND 14:55
PROVIDERS: PCP Family Medicine; Visit Provider Nurse Practitioner Family
DX: E11.621 Type 2 diabetes mellitus with foot ulcer (principal); L97.422 Non-pressure chronic ulcer of left heel and midfoot with fat layer exposed; M14.672 Charcot's joint, left ankle and foot; Z79.4 Long term (current) use of insulin
CPT/HCPCS: 15275; Q4101

== ENCOUNTER 2024-03-01 15:10 | Outpatient (CLI) | payer OTHER, SELFPAY ==
--- OUTSIDE RECORDS SUMMARY | 2024-03-01 15:11 | XMS_ITS | Encounter Summary ---
Author Organization [facility] Address [address] [place] [address] Care Team Providers Care Customer Support Coordinator Name Role Phone Barbara Valentin DO Primary Care Provider Kevin zepeda Encounter Details Date Type Department Care Team (Late st Contact Info) Description 01/23/2024 Office Communication [facility] [place] [address] [place] [address] Ronnell Kirby [address] [place] [address] Social History Tobacco Use Types [...] on filedocumented in this encounter Care Teams Customer Support Coordinator Relationship Specialty Start Date End Date Barbara Valent[place] [address] PCP - General Family Medicine 09/22/23 documented as of this encounter
--- OUTSIDE RECORDS SUMMARY | 2024-03-01 15:11 | XMS_ITS | Encounter Summary ---
Author Organization [facility] Address [address] [place] [address] Care Team Providers Care Editor City Name Role Phone Barbara Valentin DO Primary Care Provider Kevin zepeda Encounter Details Date Type Department Care Team (Late st Contact Info) Description 09/22/2023 Documentation Only [facility] [place] [address] [facility] [address] [place] [address] No, Pcp Social History Tobacco [...] on filedocumented in this encounter Care Teams Editor City Relationship Specialty Start Date End Date Barbara Valent[place] [address] PCP - General Family Medicine 09/22/23 documented as of this encounter
--- OUTSIDE RECORDS SUMMARY | 2024-03-01 15:11 | XMS_ITS | Encounter Summary ---
Author Organization [facility] [place] Address [address] [place] [address] Care Team Providers Care News Editor Name Role Phone Barbie Barbaraesteban Gomez DO Primary Care Provider Kevin zepeda Encounter Details Date Type Department Care Team (Late st Contact Info) Description 02/01/2024 Telephone [facility] [place] [address] [place] [address] Gabriel Hicks MD [address] [place] [address] Social History Tobacco Use Types [...] on filedocumented in this encounter Care Teams News Editor Relationship Specialty Start Date End Date Barbara Valentin DO [address] [place] [address] PCP - General Family Medicine 09/22/23 documented as of this encounter
--- OUTSIDE RECORDS SUMMARY | 2024-03-01 15:11 | XMS_ITS | Encounter Summary ---
Author Organization [facility] Address [address] [place] [address] Care Team Providers Care Stitchdown Thread Laster Name Role Phone Barbie Barbaraesteban Gomez DO Primary Care Provider Kevin zepeda Encounter Details Date Type Department Care Team (Late st Contact Info) Description 01/23/2024 Documentation Only [facility] [place] [address] [place] [address] Ronnell Kirby [address] [place] [address] Social History Tobacco Use Types [...] LAB BLOOD ORDERAB LES Performing Organization Address [facility]/ZIP Co de Phone Number [place] * (ABNORMAL) Creatine (01/17/2024) Creatine, Serum 1.28(H) [facility] GFR Calculated 47(L) [facility] Blood (Blood, Venous) 01/17/2024 Historical Provider MD LAB BLOOD ORDERAB LES Performing Organization Address [facility]/State/ZIP Co de Phone Number [place] * (ABNORMAL) Creatine (01/16/2024) Creatine, Serum 1.28(H) [facility] GFR Calculated 47(L) [facility] Blood (Blood, Venous) 01/16/2024 Historical Provider MD LAB BLOOD ORDERAB LES Performing Organization Address [facility] de Phone Number [place] * (ABNORMAL) Creatine (01/15/2024) Pathologist [facility] Creatine, Serum 1.71(H) [place] GFR Calculated 34(L) [facility] Blood (Blood, Venous) 01/15/2024 Historical Provider MD LAB BLOOD ORDERAB LES Performing Organization Address [facility] Phone Number [place] * (ABNORMAL) Hemoglobin (01/15/2024) Pathologist [facility] Hemoglobin 8.4(L) g/dL [facility] MCV 91.0 [facility] Blood (Blood, Venous) 01/15/2024 Historical Provider MD LAB BLOOD ORDERAB LES Performing Organization Address [facility] de Phone Number [facility] * (ABNORMAL) Basic Metabolic Panel (BMP) (01/14/2024) Pathologist [facility] Sodium 144 mEq/L [facility] Potassium 4.4 mEq/L [facility] Chloride 112(H) [facility] Carbon Dioxide 23 mmol/L [facility] Calcium 8.4(L) mg/dL [facility] BUN 57(H) mg/dL [facility] Creatinine 2.61(H) mg/dL [facility] Glucose 179(H) mg/dL [facility] eGFR 20(L) [facility] Anion Gap 9 [facility] 01/14/2024 Historical Provider MD LAB BLOOD ORDERAB LES Performing Organization Address [facility] de Phone Number [facility] * (ABNORMAL) CBC (01/14/2024) WBC 8.5 K/uL [facility] Red Blood Cell Count 3.04(L) [facility] Hemoglobin 8.9(L) g/dL [facility] Hematocrit 27.5(L) % [facility] MCV 91 [facility] MCH 29.3 [facility] MCHC 32.4 [facility] RDW 14.4 [facility] Platelet Count 198 [facility] MPV 11.4(H) [place] Blood (Blood, Venous) 01/14/2024 Historical Provider MD LAB BLOOD ORDERAB LES Performing Organization Address [facility] Co de Phone Number [facility] [...] LAB BLOOD ORDERAB LES Performing Organization Address [facility] Co de Phone Number [facility] [...] LAB BLOOD ORDERAB LES Performing Organization Address [facility] Co de Phone Number [facility] [...] on filedocumented in this encounter Care Teams Stitchdown Thread Laster Relationship Specialty Start Date End Date Barbara Valentin DO [address] [place] [address] PCP - General Family Medicine 09/22/23 documented as of this encounter
--- OUTSIDE RECORDS SUMMARY | 2024-03-01 15:11 | XMS_ITS | Clinical Summary ---
Author Organization [facility] [place] Address [address] [facility] [place] [address] Phone Care Team Providers Care Poker Dealer Name Role Phone Sir Valentinesteban Gomez DO [...] One Pack) 3 MG/DOSE powder Inhale 1 [place] into affected nostril(s) each time if needed [...] Team Description 02/01/2024 Telephone [facility] [place] [address] [facility] [address] [place] [phone] Gabriel Hicks MD 01/23/2024 Documentation Only [facility] [place] [address] [facility] [address] [place] [phone] Ronnell Kirby 01/23/2024 Office Communication [facility] [place] [address] [facility] [address] [place] [phone] Ronnell Kirby from Last 3 Months Immunizations [...] LAB BLOOD ORDERAB LES Performing Organization Address [facility] Co de Phone Number [place] * (ABNORMAL) Creatine (01/17/2024) Only the most recent of3 resultswithin the time period is included. Creatine, Serum 1.28(H) [facility] GFR Calculated 47(L) [facility] Blood (Blood, Venous) 01/17/2024 Historical Provider MD LAB BLOOD ORDERAB LES Performing Organization Address City/[facility]/ZIP Co de Phone Number [place] * [...] BESSY from Last 3 Months Care Teams Poker Dealer Relationship Specialty Start Date End Date Barbara Valentin DO [address] [place] [address] PCP - General Family Medicine 09/22/23
--- OUTSIDE RECORDS SUMMARY | 2024-03-01 15:12 | XMS_ITS | Clinical Summary ---
Author Organization [employer] [facility] Address [place], [place] [address] Care Team Providers Care Clinical Provider Trainer Name Role Phone Julio Ibrahim MD Unavailable Chuy Doss MD Unavailable Markel Strong MD Unavailable [phone] Nikolai Ibarra MD Unavailable [phone] Barbara Valentin DO Primary Care Provider [facility] [place] Unavailable Allergies Active Allergy Reactions Criticality Noted [...] mellitus at risk of hypoglycemia Inhale 1 [place] into affected nostril(s) each time if needed for Severe Hypoglycemia. Roll on side and call 911 after administration. 2 Each 11 12/25/19 Active fluticasone (50 mcg per actuation) nasal solution (FLONASE)Indicati ons:Nasal congestion Inhale 1 [place] into affected nostril(s) once daily. Inhale 1 [place] in the nostril(s) once daily. 16 g [...] continuous glucose monitor READER (FreeStyle Elli 2 [place])Indication s:Type 1 diabetes mellitus with other specified complication (HC) To be used to read blood sugars per merchandise flow team leader's directions. 1 Each 05/19/20 Active blood-glucose meterIndications: [...] be used to read blood sugars per merchandise flow team leader's directions. 6 Each 3 09/06/19 24 Active [...] Chronic, continuous use of opioids Inhale 1 [place] into affected nostril(s) each time if needed [...] substance agreement signed - 10/07/23 10/07/2023 Overview: [facility] Noemí Dennis .................... 10/07/2023 4:39 [...] right knee replacement 01/02/2015 06/10/2017 long term (current) use of anticoagulants 11/27/2013 12/28/2013 Anticoagulation [...] Encounters Date Type Department Care Team Description 02/28/2024 2:00 PM CDT Home Care Visit [facility] [address] [place] [address] Shania Elaine, LOS SN - HOME VISIT 02/28/2024 10:45 AM CDT Home Care Visit [facility] [address] [place] [address] Fabiola Mathis RECRUITING ASSISTANT - HOME VISIT 02/25/2024 Home Care Visit [facility] [address] [place] [address] Nitza Riojas LISW CARE COORDINATION 02/22/2024 3:00 PM CDT Home Care Visit [facility] [address] [place] [address] Trini Hitchcock, LOS SN - HOME VISIT 02/22/2024 Home Care Visit [facility] [address] [place] [phone] Dar Phillips OT OT - DISCIPLINE DISCHARGE 02/21/2024 9:45 AM CDT Home Care Visit [facility] [address] [place] [phone] Alex Contreras RECRUITING ASSISTANT - HOME VISIT 02/20/2024 Home Care Visit [facility] [address] [place] [phone] Nitza Riojas LISW CHICKEN SEXER - INITIAL ASSESSMENT 02/16/2024 Refill [facility] [address] [place] [address] Toshia Hooks NP Refill Request (oxyCODONE (ROXICODONE) 5 mg immediate release tablet ) 02/16/2024 Home Care Visit [facility] [address] [place] [phone] Nitza Riojas LISW CHICKEN SEXER - MISSED VISIT 02/15/2024 3:45 PM CDT Home Care Visit [facility] [address] [place] [phone] Coleman Greene, PT PT - DISCIPLINE DISCHARGE 02/15/2024 11:00 AM CDT Home Care Visit [facility] [address] [place] [phone] Geneva Sanchez, LOS SN - HOME VISIT 02/14/2024 12:00 PM CDT Home Care Visit [address] [phone] Joi Moreno COTA OT - HOME VISIT 02/14/2024 8:15 AM CDT Home Care Visit [facility] [address] [place] [phone] Fabiola Mathis RECRUITING ASSISTANT - HOME VISIT 02/10/2024 3:30 PM CDT Home Care Visit [facility] [address] [place] [address] Joi Moreno VARELA OT - HOME VISIT 02/10/2024 Home Care Visit [facility] [address] [place] [address] Nitza Riojas LISW CHICKEN SEXER - CASE COMMUNICATION 02/09/2024 Refill [facility] [address] [place] [address] Barbara Valentin, Refill Request (Duloxetine) 02/08/2024 3:00 PM CDT Home Care Visit [facility] [address] [place] [address] Veda Resendiz, RN SN - WOUND/OSTOMY CHART CONSULT 02/08/2024 9:00 AM CDT Home Care Visit [facility] [address] [place] [address] Geneva Sanchez, LOS SN - HOME VISIT 02/08/2024 Telephone [facility] [address] [place] [address] Barbara Valentin, Pharmacist Medication Management (MEDICATION CHANGE) 02/08/2024 Telephone [facility] [address], [place] [address] Geneva Sanchez, channel manager List Update 02/07/2024 4:00 PM CDT Home Care Visit [facility] [address] [place] [address] Joi Moreno VARELA OT - HOME VISIT 02/07/2024 9:30 AM CDT Home Care Visit [facility] [address] [place] [address] Kendal Serna, CARINA PT - HOME VISIT 02/07/2024 Home Care Visit [facility] [address] [place] [address] Fabiola Mathis RECRUITING ASSISTANT - MISSED VISIT 02/07/2024 Telephone [facility] [address] [place] [address] Saúlq, Barbara Patricia, DO Refill Request (Insulin lispro pens) 02/04/2024 Refill [facility] [address] [place] [address] Shaqra, Barbara Patricia, DO Refill Request (Insulin Lispro) 02/03/2024 1:00 PM CDT Home Care Visit [facility] [address] [place] [address] Shania Elaine, RN SN - MISSED VISIT 02/03/2024 9:00 AM CDT Home Care Visit [facility] [address] [place] [address] Joi Moreno VARELA OT - HOME VISIT 02/02/2024 11:00 AM CDT Home Care Visit [facility] [address] [place] [address] Kendal Serna, PT PT - HOME VISIT 02/01/2024 4:00 PM CDT Home Care Visit [facility] [address] [place] [address] Joi Moreno VARELA OT - HOME VISIT 01/31/2024 9:30 AM CDT Home Care Visit [facility] [address] [place] [address] Fabiola Mathis RECRUITING ASSISTANT - HOME VISIT 01/31/2024 Home Care Visit [facility] [address] [place] [address] Oumou Burns, LOS CARE COORDINATION 01/31/2024 Home Care Visit [facility] [address] [place] [phone] Oumou Burns, LOS CARE COORDINATION 01/30/2024 10:45 AM CDT Home Care Visit [facility] [address] [place] [address], [place] [address] Kendal Serna, PT PT - HOME VISIT 01/30/2024 9:00 AM CDT Home Care Visit [facility] [address] [place] [phone] Geneva Sanchez, LOS SN - INITIAL ASSESSMENT 01/27/2024 11:30 AM CDT Home Care Visit [facility] [address] [place] [phone] Fabiola Mathis RECRUITING ASSISTANT - MISSED VISIT 01/26/2024 5:00 PM CDT Home Care Visit [facility] [address] [place] [phone] Guillermo Boykin, PT PT - MISSED VISIT 01/25/2024 1:30 PM CDT Home Care Visit [facility] [address] [place] [phone] Coleman Greene, PT PT - HOME VISIT 01/25/2024 Travel 01/24/2024 1:00 PM CDT Home Care Visit [facility] [address] [place] [phone] Dar Phillips, OT OT - INITIAL ASSESSMENT 01/24/2024 9:30 AM CDT Home Care Visit [facility] [address] [place] [phone] Fabiola Mathis RECRUITING ASSISTANT - HOME VISIT 01/24/2024 Home Care Visit [facility] [address] [place] [phone] Narcisa Atkinson, RN CARE COORDINATION 01/23/2024 Home Care Visit [facility] [address] [place] [phone] Narcisa Atkinson, RN CARE COORDINATION 01/20/2024 [facility] [address] [place] [address] Toshia Hooks NP Refill Request 01/18/2024 1:45 PM CDT Home Care Visit [facility] [address] [place] [phone] Kendal Serna, PT PT - OASIS START OF CARE 01/18/2024 10:30 AM CDT Phone Office Visit [facility] [address] [place] [address] Nikolai Ibarra MD 01/18/2024 Plan of Care Documentation [facility] [address] [place] [address] 01/18/2024 Patient Outreach [facility] [address] [place] [address] Maria R Ho, RN Primary RN Care Management; Hospital F/U (Lace 44) 01/18/2024 Travel 01/12/2024 9:13 PM CDT - 01/17/2024 5:23 PM CDT Hospital Encounter [facility] [address] [place] [address] Megan, MD Nedra Valverde, DO Chente Honeycutt, MD Dusty Manjarrez, MD Ricky Alston, Helder Hoover MD [facility], [facility] Hospitalists Of Opioid dependence, uncomplicated (HC) (Primary Dx); Nasal congestion; Chronic pain syndrome; Diabetic ketoacidosis without coma associated with type 1 diabetes mellitus (HC); 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, macular edema presence unspecified, unspecified laterality, unspecified proliferative retinopathy type (HC); Heel ulcer, right, with unspecified severity (HC) Discharge Disposition: Home Health 01/09/2024 Refill [facility] [address] [place] [address] Barbara Valentin DO Refill Request (Fluoxetine) 01/09/2024 Refill [facility] [address] [place] [address] Elian Humphrey MD Refill Request (Torsemide) 01/06/2024 4:00 PM CDT Office Visit [facility] [address] [place] [address] Toshia Hooks NP Follow Up; Pain (Multi source; was told by her Skiver Operator she can ot use OTC Voltaren gel., which had been helping her O.A. pain (hands; wrists; shoulders; ) ) 01/06/2024 Travel 01/02/2024 Telephone [facility] [address] [place] [address] Barbara Valentin Patricia, DO Follow Up 12/27/2023 Refill [facility] [address] [place] [address] Barbara Valentin Patricia, DO Refill Request (Pregabalin, Cetirizine) 12/23/2023 2:35 PM CDT Office Visit [facility] [address] [place] [address] Barbara Valentin, DO Diabetes (3 month check, labs); Rash (Rash under breasts? ) 12/23/2023 Travel 12/20/2023 Refill [facility] [address] [place] [address] Barbara Valentin Patricia, DO Refill Request (Humalog Kwikpen Insulin) 12/16/2023 Refill [facility] [address] [place] [address] Toshia Hooks NP Refill Request (Patient son called requesting oxycodone 5 mg at [facility].////) 12/15/2023 Telephone [facility] [address] [place] [address] Barbara Valentin, DO Lab 12/08/2023 Refill [facility] [address] [place] [address] Barbara Valentin Patricia, DO Refill Request (Ulticare Pen Needle, Per-fit Underwear) 12/07/2023 Refill [facility] [address] [place] [address] Barbara Valentin, DO Refill Request (Ulticare Pen Needle) from Last 3 Months Immunizations Name Administration [...] Sign Reading Time Taken Comments Blood Pressure 128/60 02/28/2024 2:18 PM CDT Pulse 78 02/28/2024 2:18 PM CDT Temperature 36.4 ??C (97.5 ??F) 02/28/2024 2:18 PM CD T Respiratory Rate 18 02/28/2024 2:18 PM CDT Oxygen Saturation 91% 02/28/2024 2:18 PM CDT RA Inhaled Oxygen Concentration - - Weight 102.3 kg (225 lb 9.6 oz) 01/16/2024 6:48 AM CDT Height 152.4 cm (5') 01/12/2024 9:27 PM CDT Body Mass Index 44.06 01/12/2024 9:27 PM CDT Plan of Treatment Upcoming Encounters Date Type Department Care Team (Late st Contact Info) Description 03/06/2024 9:15 AM CDT Home Care Visit [facility] [address] [facility] [place] [address] Fabiola Mathis [address] [place] [address] 03/07/2024 4:00 AM CDT Home Care Visit [facility] [address] [place] [address] Geneva Sanchez RN 03/13/2024 9:15 AM CDT Home Care Visit [facility] [address] [place] [address] Fabiola Mathis [address] [place] [address] 03/14/2024 4:00 AM CDT Appointment [facility] [address] [place] [address] Geneva Sanchez RN 03/26/2024 3:25 PM CDT Office Visit [facility] [address] [place] [address] Barbara Valentin, [address] [place] [address] 05/04/2024 3:30 PM CDT Phone Office Visit [facility] [address] [facility] [address] [place], [place] [phone] Nikolai Ibarra MD [address] [facility] [address] [place] [address] Health Maintenance Due Date Last Done Comments [...] 03/18/2020, Additional history exists Fecal testing sDNA-FIT ([place] guard) for age 45-75 11/10/2024 11/10/2021 Pneumococcal series for age 6-64 (3 of 3 - PPSV23 or PCV20) 2026 08/17/2016, 08/14/2014, 07/04/2005, Additional history exists Lipids for age 45-75 04/28/2027 04/28/2022, 08/17/2019, 08/31/2018, Additional history exists Tdap Completed 08/25/2010 HIV for age 15-65 Completed 07/21/2015 Hepatitis C screening for ag e 18-79 Completed 02/16/2018 Medical Devices Implanted Type Area Workforce Management Consultant Device Identifier Shelf Expiration Date Model / Serial / Lot [id number] 2x12mm [[id number]] Implanted:Qty: 1 on 08/08/2008 at [facility] Explanted:at [facility] (Quantity not on file) [employer] [id number]# / [id number] / Stem Compnt Primary 8mm Mini - [id number] Implanted:Qty: 1 on 03/17/2011 at [facility] Right: Shoulder BIOMET [id number]# / / [id number] Head Hum Bio-Mod 32v51w2in - [id number] Implanted:Qty: 1 on 03/17/2011 at [facility] Right: Shoulder BIOMET [id number]# / / [id number] Base Glenoid Hybrid 4mm Sm - [id number] Implanted:Qty: 1 on 03/17/2011 at [facility] Right: Shoulder BIOMET [id number]# / / [id number] Cmnt 1/2 [employer] - [id number] Implanted:Qty: 1 on 03/17/2011 at [facility] Right: Shoulder [employer] 6188-1-01 0# / / [id number] Post Glenoid Hybrid Regenerex - [id number] Implanted:Qty: 1 on 03/17/2011 at [facility] Right: Shoulder BIOMET [id number] # / / [id number] Head Humeral 44x15 Co Cr Biomodular - [id number] Implanted:Qty: 1 on 07/12/2012 at [facility] Left: Shoulder BIOMET [id number]# / / [id number] Shoulder Stem Implanted:Qty: 1 on 07/12/2012 at [facility] Left: Shoulder [id number] / / [id number] Description:SHOULDER STEM Cmnt Bone 1/2 [employer] - [id number] Implanted:Qty: 1 on 07/12/2012 at [facility] Left: Shoulder [employer] 6188-1-01 0# / / [id number] Post Glenoid Hybrid Regenerex - [id number] Implanted:Qty: 1 on 07/12/2012 at [facility] Left: Shoulder BIOMET [id number] # / / [id number] Base Glenoid Hybrid 4mm Sm - [id number] Implanted:Qty: 1 on 07/12/2012 at [facility] Left: Shoulder BIOMET 140030# / / [id number] Procedures Procedure Name Priority Date/Time Associated Diagnosis [...] HIV 1/2 Add On 07/21/2015 9:40 AM BREAKER [employer]OSS 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 Blood BLOOD SPECIMEN / Unknown 01/17/2024 11:27 AM CDT 01/17/2024 11:35 AM CDT Helder García MD CHEMISTRY [facility] [address] [place] [address], * (ABNORMAL) CREATININE (01/17/2024 8:20 AM CDT) Only the most recent of3 resultswithin the time period is included. eGFR 47(L) >90 mL/min/1.7 3m2 01/17/2024 9:06 AM CDT [facility] Comment:As of 2021, eG FR is calculated by the CKD-EPI creatinine equation without race adjustment. ??eGFR can be influenced by muscle mass, exercise, and diet. ??The reported eGFR is an estimation only and is only applicable if the renal function is stable. CREATININE 1.28(H) 0.50 - 0.90 mg/dL 01/17/2024 9:06 AM CDT [facility] Blood BLOOD SPECIMEN / Unknown Non-Lab Venipuncture / Unknown 01/17/2024 8:20 AM CDT 01/17/2024 8:26 AM CDT Helder García MD CHEMISTRY Performing Organization Address City/[facility] Co de Phone Number [facility] [address] [place] [address], * PHOSPHORUS (01/17/2024 8:20 AM CDT) Only the most recent of5 resultswithin the time period is included. Pathologist [facility] PHOSPHORUS 2.6 2.5 - 4.5 mg/dL 01/17/2024 9:06 AM CDT [facility] Blood BLOOD SPECIMEN / Unknown Non-Lab Venipuncture / Unknown 01/17/2024 8:20 AM CDT 01/17/2024 8:26 AM CDT Sarah Betancourt RN CHEMISTRY Performing Organization Address City/[facility]/ZIP Co de Phone Number [facility] [address] [place] [address], * (ABNORMAL) BASIC METABOLIC PANEL (01/17/2024 8:20 AM CDT) Only the most recent of5 resultswithin the time period is included. [facility] SODIUM 139 136 - 145 mmol/L 01/17/2024 12:[address] [facility] POTASSIUM 3.9 3.5 - 5.1 mmol/L 01/17/2024 12:[address] [facility] CHLORIDE 103 98 - 107 mmol/L 01/17/2024 12:[address] [facility] CO2,TOTAL 24 22 - 29 mmol/L 01/17/2024 12:[address] [facility] ANION GAP 12 5 - 18 01/17/2024 12:[address] [facility] GLUCOSE 162(H) 70 - 99 mg/dL 01/17/2024 12:[address] [facility] CALCIUM 8.7(L) 8.8 - 10.2 mg/dL 01/17/2024 12:[address] [facility] BUN 17 8 - 23 mg/dL 01/17/2024 12:[address] [facility] CREATININE 1.31(H) 0.50 - 0.90 mg/dL 01/17/2024 12:[address] [facility] BUN/CREAT RATIO 13 10 - 20 12:[address] [facility] eGFR 46(L) >90 mL/min/1.7 3m2 01/17/2024 12:[address] [facility] Comment: As of 2021, [...] Helder García MD CHEMISTRY Performing Organization Address [facility] Co de Phone Number [facility] [address] [place] [address], * CLOSTRIDIOIDES DIFFICILE TOXIN PCR (01/16/2024 12:27 PM CDT) CLOSTRIDIUM DIFFICILE PCR Negative 01/16/2024 2:18 PM CDT [facility] PRESUMPTIVE NAP1 STRAIN Negative 01/16/2024 2:18 PM CDT [facility] Stool STOOL SPECIMEN / Unknown Non-Blood / Unknown 01/16/2024 12:27 PM CDT 01/16/2024 12:51 PM CDT Narrative [facility] - 01/16/2024 2:18 PM CDT The NAP1 (027 or BI) strain is a hypervirulent strain. Detection may be useful for epidemiological purposes. Helder García MD MICROBIOLOGY Performing Organization Address [facility] de Phone Number [facility] [address] [place] [address], * SCAN CORRESP-EKG RESULTS (01/16/2024 9:07 AM CDT) Narrative 01/16/2024 9:07 AM CDT Ordered by an unspecified provider. Other Clinical Staff OTHER * (ABNORMAL) HEMOGLOBIN (01/16/2024 6:30 AM CDT) Only the most recent of2 resultswithin the time period is included. HEMOGLOBIN 8.9(L) 12.0 - 16.0 g/dL 01/16/2024 7:13 AM CDT [facility] MCV 91 80 - 100 fL 01/16/2024 7:13 AM CDT [facility] Blood BLOOD SPECIMEN / Unknown Venipuncture / Unknown 01/16/2024 6:30 AM CDT 01/16/2024 6:58 AM CDT Fabriizo Montano MD HEMATOLOGY Performing Organization Address City/[facility]/ZIP Co de Phone Number [facility] [address] [place] [address], * VANCOMYCIN (01/16/2024 6:30 AM CDT) Only the most recent of3 resultswithin the time period is included. VANCOMYCIN 13.0 ug/mL 01/16/2024 7:42 AM CDT [facility] Comment:No Reference Range D efined. DATE OF LAST DOSE,RANDOM Not Given 01/16/2024 7:42 AM CDT [facility] TIME OF LAST DOSE,RANDOM Not Given 01/16/2024 7:42 AM CDT [facility] Blood BLOOD SPECIMEN / Unknown Venipuncture / Unknown 01/16/2024 6:30 AM CDT 01/16/2024 6:58 AM CDT Barbara Holcomb NP CHEMISTRY Performing Organization Address [facility] Co de Phone Number [facility] [address] [place] [address], * (ABNORMAL) PLATELET COUNT (01/15/2024 6:02 AM CDT) PLATELET COUNT 166 140 - 440 thou/cu mm 01/15/2024 6:44 AM CDT [facility] MPV 11.2(H) 6.5 - 11.0 fL 01/15/2024 6:44 AM CDT [facility] Blood BLOOD SPECIMEN / Unknown Venipuncture / Unknown 01/15/2024 6:02 AM CDT 01/15/2024 6:26 AM CDT Fabrizio Montano MD HEMATOLOGY Performing Organization Address City/[facility]/ZIP Co de Phone Number [facility] [address] [place] [phone], [place] * WHITE BLOOD COUNT (01/15/2024 6:02 AM CDT) WHITE BLOOD COUNT 4.9 4.5 - 11.0 thou/cu mm 01/15/2024 6:44 AM CDT [facility] NRBC 0.0 % 01/15/2024 6:44 AM CDT [facility] ABS NRBC 0.0 thou /cu mm 01/15/2024 6:44 AM CDT [facility] Blood BLOOD SPECIMEN / Unknown Venipuncture / Unknown 01/15/2024 6:02 AM CDT 01/15/2024 6:26 AM CDT Fabrizio Montano MD HEMATOLOGY Performing Organization Address [facility]/ZIP Co de Phone Number [facility] [address] [place] [address], [place] * Sodium AM (01/15/2024 6:02 AM CDT) SODIUM 142 136 - 145 mmol/L 01/15/2024 7:13 AM CDT [facility] Blood BLOOD SPECIMEN / Unknown Venipuncture / Unknown 01/15/2024 6:02 AM CDT 01/15/2024 6:27 AM CDT Fabrizio Montano MD CHEMISTRY Performing Organization Address City/[facility]/ZIP Co de Phone Number [facility] [address] [place] [address], [place] * Potassium AM (01/15/2024 6:02 AM CDT) Only the most recent of3 resultswithin the time period is included. POTASSIUM 4.4 3.5 - 5.1 mmol/L 01/15/2024 7:13 AM CDT [facility] Blood BLOOD SPECIMEN / Unknown Venipuncture / Unknown 01/15/2024 6:02 AM CDT 01/15/2024 6:27 AM CDT Fabrizio Montano MD CHEMISTRY [facility] [address] [place] [address], * SCAN-CARDIAC STRIP (01/14/2024 7:07 AM CDT) Scanner OTHER * (ABNORMAL) CBC W PLT NO DIFF (01/14/2024 5:28 AM CDT) WHITE BLOOD COUNT 8.5 4.5 - 11.0 thou/cu mm 01/14/2024 6:33 AM CDT [facility] RED BLOOD COUNT 3.04(L) 4.00 - 5.20 mil/cu mm 01/14/2024 6:33 AM CDT [facility] HEMOGLOBIN 8.9(L) 12.0 - 16.0 g/dL 01/14/2024 6:33 AM CDT [facility] HEMATOCRIT 27.5(L) 33.0 - 51.0 % 01/14/2024 6:33 AM CDT [facility] MCV 91 80 - 100 fL 01/14/2024 6:33 AM CDT [facility] MCH 29.3 26.0 - 34.0 pg 01/14/2024 6:33 AM CDT [facility] MCHC 32.4 32.0 - 36.0 g/dL 01/14/2024 6:33 AM CDT [facility] RDW 14.4 11.5 - 15.5 % 01/14/2024 6:33 AM CDT [facility] PLATELET COUNT 198 140 - 440 thou/cu mm 01/14/2024 6:33 AM CDT [facility] MPV 11.4(H) 6.5 - 11.0 fL 01/14/2024 6:33 AM CDT [facility] NRBC 0.0 % 01/14/2024 6:33 AM CDT [facility] ABS NRBC 0.0 thou /cu mm 01/14/2024 6:33 AM CDT [facility] Blood BLOOD SPECIMEN / Unknown Non-Lab Venipuncture / Unknown 01/14/2024 5:28 AM CDT 01/14/2024 6:31 AM CDT Barbara Holcomb NP HEMATOLOGY Performing Organization Address [facility] Co de Phone Number [facility] [address] [place] [address], * (ABNORMAL) CALCIUM IONIZED HOSPITAL DRAW ONLY (01/14/2024 5:28 AM CDT) Only the most recent of3 resultswithin the time period is included. CALCIUM,IONIZE D 1.30(H) 1.15 - 1.27 mmol/L 01/14/2024 6:03 AM CDT [facility] Blood BLOOD SPECIMEN / Unknown Non-Lab Venipuncture / Unknown 01/14/2024 5:28 AM CDT 01/14/2024 5:49 AM CDT Grace Eldridge MD CHEMISTRY Performing Organization Address [facility] de Phone Number [facility] [address] [place] [address], * ECHO TTE COMPLETE W CONTRAST (01/13/2024 3:56 PM CDT) AORTIC VALVE MEAN PG 7 mmHg EJECTION FRACTION 64 % LVEDD 4.1 cm EJECTION FRACTION 60 - 65% Anatomical Region Laterality Modality Ultrasound 01/13/2024 2:53 PM CDT Narrative 01/13/2024 4:39 PM CDT ECHOCARDIOGRAM ALIDA John RACHELLE ? Accession#: ?? [id number] : ?1960 63 years Study Date: ?? 01/13/2024 2:53:14 PM Gender: F ?BP: ? 114/44 mmHg Height: 152.00 cm ?BSA: ?1.93 m? ? ? Weight: 98.00 kg ? Tech: ? KBA ? Referring MD: BARBARA HOLCOMB Site: ? [facility] Reading Location: [facility] IP Patient Location: Inpatient. [...] Contrast documentation: 2 ml diluted Definity, lot #[id number], [facility]# [id number] was administered peripherally to enhance visualization of all left ventricular segments. . This study was interpreted by an [facility] accredited facility. ??Final ?? Procedure Note Travon Blood MD - 01/13/2024 ECHOCARDIOGRAM ALIDA KUHN : 1960 63 years Study Date: 01/13/2024 2:53:14 PM Gender: F BP: 114/44 mmHg Height: 152.00 cm BSA: 1.93 m? ? ? Weight: 98.00 kg Tech: PASQUALE Referring MD: BARBARA HOLCOMB Site: [facility] Reading Location: [facility] Patient Location: Inpatient. Procedure: 2D w/ Contrast, [...] 2 ml diluted Definity, lot #[id number], [facility]#[id number] was administered peripherally to enhance visualization of allleft ventricular segments. . This study was interpreted by an [facility] accredited facility. Final Barbara Holcomb DIGITAL CONTROLS TECHNICAL OFFICER ECHO ORD * US ARTERIAL LOWER EXTREMITY [...] 125 mmHg Left Brachial: 111 mmHg Right TELECOMMUNICATIONS OFFICER: Noncompressible Right DPA: 115 mmHg (SAMUEL 0.92) Left TELECOMMUNICATIONS OFFICER: Noncompressible Left DPA: Noncompressible SAMUEL: 1.0-1.4 - normal 0.9-0.99 - borderline 0.80-0.89 - mild 0.50-0.79 - moderate 0.30-0.49 - severe < 0.30 - critical RIGHT: MACHINIST FIRST CLASS PROX: 204 cm/sec; triphasic waveforms MACHINIST FIRST CLASS DIST: 138 cm/sec; triphasic waveforms PFA: 97 cm/sec; triphasic waveforms SFA PROX: 140, 111 cm/sec; triphasic waveforms SFA MID: 113, 74 cm/sec; triphasic waveforms SFA DIST: 107, 113 cm/sec; triphasic waveforms POP PROX: 105 cm/sec; triphasic waveforms POP DIST: 89 cm/sec; triphasic waveforms TELECOMMUNICATIONS OFFICER: 32 cm/sec; triphasic waveforms KAITLYN: 58 cm/sec; triphasic waveforms DPA: 56 cm/sec; triphasic waveforms LEFT: MACHINIST FIRST CLASS PROX: 193 cm/sec; triphasic waveforms MACHINIST FIRST CLASS DIST: 152 cm/sec; triphasic waveforms PFA: 98 cm/sec; triphasic waveforms SFA PROX: 119, 109 cm/sec; triphasic waveforms SFA MID: 103, 102 cm/sec; triphasic waveforms SFA DIST: 103, 100 cm/sec; triphasic waveforms POP PROX: 124 cm/sec; triphasic waveforms POP DIST: 85 cm/sec; triphasic waveforms TELECOMMUNICATIONS OFFICER: 169 cm/sec; triphasic waveforms KAITLYN: 91 [...] 125 mmHg Left Brachial: 111 mmHg Right TELECOMMUNICATIONS OFFICER: Noncompressible Right DPA: 115 mmHg (SAMUEL 0.92) Left TELECOMMUNICATIONS OFFICER: Noncompressible Left DPA: Noncompressible SAMUEL: 1.0-1.4 - normal 0.9-0.99 - borderline 0.80-0.89 - mild 0.50-0.79 - moderate 0.30-0.49 - severe < 0.30 - critical RIGHT: MACHINIST FIRST CLASS PROX: 204 cm/sec; triphasic waveforms MACHINIST FIRST CLASS DIST: 138 cm/sec; triphasic waveforms PFA: 97 cm/sec; triphasic waveforms SFA PROX: 140, 111 cm/sec; triphasic waveforms SFA MID: 113, 74 cm/sec; triphasic waveforms SFA DIST: 107, 113 cm/sec; triphasic waveforms POP PROX: 105 cm/sec; triphasic waveforms POP DIST: 89 cm/sec; triphasic waveforms TELECOMMUNICATIONS OFFICER: 32 cm/sec; triphasic waveforms KAITLYN: 58 cm/sec; triphasic waveforms DPA: 56 cm/sec; triphasic waveforms LEFT: MACHINIST FIRST CLASS PROX: 193 cm/sec; triphasic waveforms MACHINIST FIRST CLASS DIST: 152 cm/sec; triphasic waveforms PFA: 98 cm/sec; triphasic waveforms SFA PROX: 119, 109 cm/sec; triphasic waveforms SFA MID: 103, 102 cm/sec; triphasic waveforms SFA DIST: 103, 100 cm/sec; triphasic waveforms POP PROX: 124 cm/sec; triphasic waveforms POP DIST: 85 cm/sec; triphasic waveforms TELECOMMUNICATIONS OFFICER: 169 cm/sec; triphasic waveforms KAITLYN: 91 [...] 01/14/2024 2:34:58 AM (Electronically Signed) Barbara Holcomb DIGITAL CONTROLS TECHNICAL OFFICER US * XR FOOT 3 VIEWS LEFT [...] CDT) CULTURE RESULT(A) 01/16/2024 2:44 PM CDT [facility] CULTURE 3+ Corynebacterium striatum 01/16/2024 2:44 PM CDT [facility] CULTURE 2+ Mixed oni present 01/16/2024 2:44 PM CDT [facility] GRAM STAIN No PMNs 01/16/2024 2:44 PM CDT [facility] GRAM STAIN 2+ RBCs 01/16/2024 2:44 PM CDT [facility] GRAM STAIN No Epithelial cells 01/15 2:44 PM CDT [facility] GRAM STAIN 2+ Gram Positive Bacilli 01/16/2024 2:44 PM CDT [facility] Other (Other) Non-Blood / Unknown 01/13/2024 11:49 AM CDT 01/13/2024 12:00 PM CDT Narrative [facility] - 01/16/2024 2:44 PM CDT Mixed oni; No Staphylococcus aureus, beta-Streptococcus, Streptococcus pneumoniae, or Pseudomonas aeruginosa isolated. Freya Schafer NP MICROBIOLOGY [facility] [address] [place] [address], * ANAEROBIC CULTURE (01/13/2024 11:49 AM CDT) CULTURE No anaerobes isolated 01/19/2024 10:01 AM CDT [facility] Other (Other) Non-Blood / Unknown 01/13/2024 11:49 AM CDT 01/13/2024 12:00 PM CDT Freya Schafer NP MICROBIOLOGY Performing Organization Address [facility] Co de Phone Number [facility] [address] [place] [address], * (ABNORMAL) Electrolytes Panel - DKA (01/13/2024 10:53 AM CDT) Only the most recent of3 resultswithin the time period is included. SODIUM 140 136 - 145 mmol/L 01/13/2024 11:36 AM CDT [facility] POTASSIUM 5.2(H) 3.5 - 5.1 mmol/L 01/13/2024 11:36 AM CDT [facility] CHLORIDE 107 98 - 107 mmol/L 01/13/2024 11:36 AM CDT [facility] CO2,TOTAL 21(L) 22 - 29 mmol/L 01/13/2024 11:36 AM CDT [facility] ANION GAP 12 5 - 18 01/13/2024 11:36 AM CDT [facility] Blood BLOOD SPECIMEN / Unknown Non-Lab Venipuncture / Unknown 01/13/2024 10:53 AM CDT 01/13/2024 11:01 AM CDT Ifeanyi Hernández RN CHEMISTRY Performing Organization Address [facility] Co de Phone Number [facility] [address] [place] [address], * SCAN-CARDIAC STRIP (01/13/2024 8:00 AM CDT) Scanner OTHER * MAGNESIUM (01/13/2024 4:22 AM CDT) Only the most recent of2 resultswithin the time period is included. MAGNESIUM 1.9 1.6 - 2.4 mg/dL 01/13/2024 5:07 AM CDT [facility] Blood BLOOD SPECIMEN / Unknown Non-Lab Venipuncture / Unknown 01/13/2024 4:22 AM CDT 01/13/2024 4:41 AM CDT Ifeanyi Hernández RN CHEMISTRY Performing Organization Address [facility] Co de Phone Number [facility] [address] [place] [address], * (ABNORMAL) Serum Glucose - DKA (01/13/2024 1:52 AM CDT) Only the most recent of2 resultswithin the time period is included. [facility] GLUCOSE,RANDOM 459(H) 70 - 139 mg/dL 01/13/2024 2:46 AM CDT [facility] Blood BLOOD SPECIMEN / Unknown Non-Lab Venipuncture / Unknown 01/13/2024 1:52 AM CDT 01/13/2024 2:03 AM CDT Emily Guzman MD CHEMISTRY Performing Organization Address [facility] Co de Phone Number [facility] [address] [place] [address], * (ABNORMAL) TROPONIN T (HS) ONE TIME (01/12/2024 11:39 PM CDT) [facility] TROPONIN T HS 45(H) 6-10 ng/L ng/L 01/13/2024 12:22 AM CDT [facility] Blood BLOOD SPECIMEN / Unknown Non-Lab Venipuncture / Unknown 01/12/2024 11:39 PM CDT 01/12/2024 11:45 PM CDT Emily Guzman MD CHEMISTRY Performing Organization Address [facility] Co de Phone Number [facility] [address] [place] [address], * 12 Lead EKG (01/12/2024 10:16 PM [...] NOW QTc 456 ms BEYOND NOW P [place] 72 degrees BEYOND NOW R [place] -31 degrees BEYOND NOW T [place] 69 degrees BEYOND NOW 01/12/2024 10:1 6 PM CDT 01/13/2024 8:20 PM CDT Emily Guzman MD EKG ORD Performing Organization Address City/[facility]/ZIP Co de Phone Number [place] NOW [place], [place] * MRSA/SA PCR (01/12/2024 10:07 PM CDT) Pathologist [facility] MRSA DNA PCR Negative Negative 01/12/2024 11:33 PM CDT [facility] STAPHYLOCOCCUS AUREUS PCR Negative Negative 01/12/2024 11:33 PM CDT [facility] Other SPECIMEN FROM INTERNAL NOSE / Unknown Non-Blood / Unknown 01/12/2024 10:07 PM CDT 01/12/2024 10:13 PM CDT Narrative [facility] - 01/12/2024 11:33 PM CDT Test result does not preclude MRSA or SA nasal colonization. Chaparro Sneed DO MICROBIOLOGY [facility] [address] [place] [address], * (ABNORMAL) Urine Culture (01/12/2024 10:07 PM CDT) Pathologist [facility] CULTURE RESULT(A) 01/16/2024 6:58 AM CDT [facility] CULTURE 10,000-50,000 CFU/mL Proteus mirabilis 01/16/2024 6:58 AM CDT [facility] CULTURE 50,000-100,000 CFU/mL Danita albicans 01/16/2024 6:58 AM CDT [facility] Urine URINE SPECIMEN / [...] MD MICROBIOL OGY [facility] [address] [place] [address], * Blood Culture (01/12/2024 9:40 PM CDT) Only the most recent of2 resultswithin the time period is included. CULTURE No Growth. 01/16/2024 11:23 PM CDT [facility] Blood BLOOD SPECIMEN / Unknown Venipuncture / Unknown 01/12/2024 9:40 PM CDT 01/12/2024 9:52 PM CDT Narrative [facility] - 01/16/2024 11:23 PM CDT Low volume blood culture received; possible false negative culture. Emily Guzman MD MICROBIOL OGY [facility] [address] [place] [address], * (ABNORMAL) TROPONIN T(HS) ACUTE W/2HR REFLEX (01/12/2024 9:37 PM CDT) Pathologist [facility] TROPONIN T HS 47(H) 6-10 ng/L ng/L 01/12/2024 10:16 PM CDT [facility] Blood BLOOD SPECIMEN / Unknown Non-Lab Venipuncture / Unknown 01/12/2024 9:37 PM CDT 01/12/2024 9:46 PM CDT Narrative [facility] - 01/12/2024 10:16 PM CDT [...] department patient population. Emily Guzman MD CHEMISTRY [facility] [address] [place] [address], * (ABNORMAL) CBC WITH AUTO DIFFERENTIAL (01/12/2024 9:37 PM CDT) Pathologist [facility] WHITE BLOOD COUNT 14.9(H) 4.5 - 11.0 thou/cu mm 01/12/2024 9:54 PM CDT [facility] RED BLOOD COUNT 3.61(L) 4.00 - 5.20 mil/cu mm 01/12/2024 9:54 PM CDT [facility] HEMOGLOBIN 10.5(L) 12.0 - 16.0 g/dL 01/12/2024 9:54 PM CDT [facility] HEMATOCRIT 32.6(L) 33.0 - 51.0 % 01/12/2024 9:54 PM CDT [facility] MCV 90 80 - 100 fL 01/12/2024 9:54 PM CDT [facility] MCH 29.1 26.0 - 34.0 pg 01/12/2024 9:54 PM CDT [facility] MCHC 32.2 32.0 - 36.0 g/dL 01/12/2024 9:54 PM CDT [facility] RDW 13.2 11.5 - 15.5 % 01/12/2024 9:54 PM CDT [facility] PLATELET COUNT 273 140 - 440 thou/cu mm 01/12/2024 9:54 PM CDT [facility] MPV 11.0 6.5 - 11.0 fL 01/12/2024 9:54 PM CDT [facility] NRBC 0.0 % 01/12/2024 9:54 PM CDT [facility] ABS NRBC 0.0 thou /cu mm 01/12/2024 9:54 PM CDT [facility] % NEUT 80.3 % 01/12/2024 9:54 PM CDT [facility] % LYMPH 9.6 % 01/12/2024 9:54 PM CDT [facility] % MONO 9.2 % 01/12/2024 9:54 PM CDT [facility] % EOS 0.1 % 01/12/2024 9:54 PM CDT [facility] % BASO 0.1 % 01/12/2024 9:54 PM CDT [facility] % IMMATURE GRAN (METAS,MYELOS,SD OS) 0.7 % 01/12/2024 9:54 PM CDT [facility] ABSOLUTE NEUTROPHILS 12.0(H) 1.7 - 7.0 thou/cu mm 01/12/2024 9:54 PM CDT [facility] ABSOLUTE LYMPHOCYTES 1.4 0.9 - 2.9 thou/cu mm 01/12/2024 9:54 PM CDT [facility] ABSOLUTE MONOCYTES 1.4(H) <0.9 thou/cu mm 01/12/2024 9:54 PM CDT [facility] ABSOLUTE EOSINOPHILS 0.0 <0.5 thou/cu mm 01/12/2024 9:54 PM CDT [facility] ABSOLUTE BASOPHILS 0.0 <0.3 thou/cu mm 01/12/2024 9:54 PM CDT [facility] ABSOLUTE IMMATURE GRANULOCYTES(MET ,MYELOS,PROS) 0.1 <0.3 thou/cu mm 01/12/2024 9:54 PM CDT [facility] Blood BLOOD SPECIMEN / Unknown Non-Lab Venipuncture / Unknown 01/12/2024 9:37 PM CDT 01/12/2024 9:46 PM CDT Emily Guzman MD HEMATOLOG Y [facility] [address] [place] [address], * (ABNORMAL) BLOOD GAS,VENOUS (01/12/2024 9:37 PM CDT) PH, VENOUS 7.25(L) 7.32 - 7.43 01/12/2024 9:52 PM CDT [facility] PCO2, VENOUS 44 41 - 51 mmHg 01/12/2024 9:52 PM CDT [facility] PO2, VENOUS 48(H) 35 - 40 mmHg 01/12/2024 9:52 PM CDT [facility] HCO3,VENOUS 19(L) 22 - 29 mmol/L 01/12/2024 9:52 PM CDT [facility] BASE EXCESS, VENOUS, POCT -7.7(L) -2.0 - 3.0 01/12/2024 9:52 PM CDT [facility] O2 SATURATION, VENOUS 85(H) 70 - 75 % 01/12/2024 9:52 PM CDT [facility] INSPIRED O2 21 01/12/2024 9:52 PM CDT [facility] Comment:Unit of Measure: Lit ers (L) if <=20; Percent (%) if >20 PATIENT TEMPERATURE 36.9 Degrees C 01/12/2024 9:52 PM CDT [facility] Blood VENOUS BLOOD SPECIMEN / Unknown Non-Lab Venipuncture / Unknown 01/12/2024 9:37 PM CDT 01/12/2024 9:46 PM CDT Emily Guzman MD CHEMISTRY Performing Organization Address [facility] Co de Phone Number [facility] [address] [place] [address], [place] * Protime - INR (01/12/2024 9:37 PM CDT) INR 1.0 <1.3 01/12/2024 9:56 PM CDT [facility] PROTIME 11.5 10.3 - 12.3 sec 01/12/2024 9:56 PM CDT [facility] Blood BLOOD SPECIMEN / Unknown Non-Lab Venipuncture / Unknown 01/12/2024 9:37 PM CDT 01/12/2024 9:46 PM CDT Narrative [facility] - 01/12/2024 9:56 PM CDT [...] Guzman MD HEMATOLOG Y Performing Organization Address [facility] Co de Phone Number [facility] [address] [place] [address], [place] * (ABNORMAL) HEMOGLOBIN A1C MONITORING (POCT) (01/12/2024 9:37 PM CDT) Only the most recent of2 resultswithin the time period is included. HEMOGLOBIN A1C MONITORING (POCT) 9.3(H) <=6.4 % 01/14/2024 10:29 AM CDT [facility] Blood BLOOD SPECIMEN / Unknown Non-Lab Venipuncture / Unknown 01/12/2024 9:37 PM CDT 01/12/2024 9:46 PM CDT Narrative [facility] - 01/14/2024 10:29 AM CDT [...] with: Untreated Anemias, Splenectomy ? Barbara Holcomb DIGITAL CONTROLS TECHNICAL OFFICER CHEMISTRY [facility] [address] [place] [address], * (ABNORMAL) Hepatic Function Panel (01/12/2024 9:37 PM CDT) ALBUMIN 3.2(L) 4.0 - 4.9 g/dL 01/12/2024 10:16 PM CDT [facility] PROTEIN,TOTAL 6.4 6.0 - 8.0 g/dL 01/12/2024 10:16 PM CDT [facility] BILIRUBIN,TOTAL 0.2 0.0 - 1.2 mg/dL 01/12/2024 10:16 PM CDT [facility] BILIRUBIN,DIRECT <0.2 0.0 - 0.3 mg/dL 01/12/2024 10:16 PM CDT [facility] BILIRUBIN,INDIRE CT 01/12/2024 10:16 PM CDT [facility] Comment:Unable to calculate, Direct Bili <0.2 ALK PHOSPHATASE 122(H) 35 - 104 IU/L 01/12/2024 10:16 PM CDT [facility] ALT (SGPT) 21 10 - 35 IU/L 01/12/2024 10:16 PM CDT [facility] AST (SGOT) 20 10 - 35 IU/L 01/12/2024 10:16 PM CDT [facility] Blood BLOOD SPECIMEN / Unknown Non-Lab Venipuncture / Unknown 01/12/2024 9:37 PM CDT 01/12/2024 9:46 PM CDT Emily Guzman MD CHEMISTRY [facility] [address] [place] [address], * SCAN-CARDIAC STRIP (01/12/2024 9:20 PM CDT) [...] health care provider. XR MAMMO BILAT SCREENING [[id number]] CLINICAL HISTORY: ??This is an asymptomatic 61 y.o. patient. INDICATION FOR EXAM: Mammogram Screening. TECHNIQUE: CC & MLO views were obtained. ??This study was evaluated with the assistance of Computer-Aided Detection. COMPARISON FILM: Yes 03/02/18 [facility] 07/26/13 [facility] FINDINGS: ??The breasts are extremely dense, which lowers the sensitivity of mammography. There are no dominant masses, suspicious micro calcifications or areas of architectural distortion. Shania Montiel MD MAMMO * LIPID PANEL W REFLEX MEASURED LDL (04/28/2022 1:44 PM CDT) CHOLESTEROL,TOTAL 139 100 - 199 mg/dL 04/30/2022 6:25 PM CDT [facility] TRIGLYCERIDES 141 <150 mg/dL 04/30/2022 6:25 PM CDT [facility] HDL CHOLESTEROL 42 >40 mg/dL 6:25 PM CDT [facility] NON-HDL CHOLESTEROL 97 <145 mg/dl 04/30/2022 6:25 PM CDT [facility] CHOL/HDL RATIO 3.31 <4.50 04/30/2022 6:25 PM CDT [facility] LDL CHOLESTEROL 69 <=130 mg/dL 04/30/2022 6:25 PM CDT [facility] VLDL CHOLESTEROL 28 <=30 mg/dL 04/30/2022 6:25 PM CDT [facility] PROVIDER ORDERED STATUS RANDOM 04/30/2022 6:25 PM CDT [facility] Blood BLOOD SPECIMEN / Unknown Venipuncture / Unknown 04/28/2022 1:44 PM CDT 04/28/2022 1:45 PM CDT Shania Montiel MD CHEMISTRY [facility] [address] [place] [address], * FECAL DNA (AKA COLOGUARD) (11/10/2021 1:00 PM CDT) Shania Montiel MD COMMUNICATION ORD * ANTI HCV [[id number]] (02/16/2018 4:20 PM CDT) Pathologist [facility] HEPATITIS C ANTIBODY Non-React alex Non-React alex 02/17/2018 2:48 PM CDT [facility] Comment:Antibodies to HCV no t detected; does not exclude the possibility of exposure to HCV. Blood BLOOD SPECIMEN / Unknown Butterfly / Unknown 02/16/2018 4:20 PM CDT 02/16/2018 4:20 PM CDT Coleman Plata MD SEND OUTS [facility] [address] [place] [address], * HIV 1&2 TODAY (07/21/2015 9:40 AM BREAKER BOSS) [facility] HIV-1/HIV-2 ANTIBODY Non-Reacti ve Non-Reacti ve 07/21/2015 10:31 AM BREAKER BOSS [facility] Blood specimen (specimen) BLOOD SPECIMEN / Unknown Venipuncture / Unknown 07/21/2015 9:40 AM BREAKER BOSS 07/21/2015 9:47 AM BREAKER BOSS Narrative [facility] - 07/21/2015 10:31 AM BREAKER BOSS HIV-1 p24 and HIV-1/HIV-2 Ab not detected Kait Morales DO SEND OUTS Performing Organization Address [facility]/ZIP Co de Phone Number [facility] [address] [place] [address], * AGRICULTURAL PRODUCTION ENGINEER THIN PREP PAP SCREEN IMAGED (08/17/2012 4:02 PM BREAKER BOSS) [facility] CYTOLOGY CYTOPATHOLOGY REPORT [facility] Status: Final Status ?[id number] CLINICAL INFORMATION Last Date of LMP ? :07/03/2012 Last Pap Date ?:02/01/2011 Last Pap Result ?:NIL ABN [place]/Bx Past 5 YRS :None Hormone Usage ?:BCP/OCP/Patch/R ing Menstrual Status ? :Regular Periods [place]/Bx done today ? :No Additional Information :None [...] COLLECTED:08/17/12 ? ACCESSIONED: ??08/18/12 ?? SIGNED: ??08/21/12 [facility] PAP [place] CODE NIL [facility] Tissue specimen (specimen) (Cervical/Vagina l) 08/17/2012 4:02 PM BREAKER BOSS 08/17/2012 4:00 PM BREAKER BOSS Coleman Plata MD PATHOLOGY/CYTOLOGY [facility] [place]NAL ZIP [address] [place] [id number] from Last 3 Months or Most Recently [...] Urine earlier this year (per report from [facility], not available in CareEverywhere), 04/19/18 L cheek abscess exclusions for contact precaution discontinuation (if > 12 months since positive culture): resides [place] [facility] care, receiving hemodialysis, has chronic open wounds/skin [...] 8:01 PM 07/15/2012 6:55 PM Care Teams Clinical Provider Trainer Relationship Specialty Start Date End Date Barbara Valentin DO [address] [place] [address] PCP - General Family Practice 11/15/22 Julio Ibrahim MD [address] [place] [address] Surgery - Orthopedics 02/01/11 Chuy Doss MD [address] [place] [address] Surgery - Vascular 02/01/11 Markel Strong MD [address] [place] [address] Provider Family Practice 08/08/20 Nikolai Ibarra MD [address] [place] [address] Endocrinology 09/07/22 [facility] [place] [address] [place] [id number] 01/17/24 Suad Ng/ Agustin IVORY [place] 07/14/17 [facility] Home Health Nurse 07/01/17 [facility] Services Home Health Aide 07/14/17 [facility] Nurse Emergency/ Ally Christianson [address] [place] [address] Tar Boiler 07/07/17
== END 2024-03-01 15:11 | disposition home or self-care (01) ==
LOC: WOUND 15:10
PROVIDERS: PCP Family Medicine; Visit Provider Nurse Practitioner Family
DX: E11.621 Type 2 diabetes mellitus with foot ulcer (principal); L97.422 Non-pressure chronic ulcer of left heel and midfoot with fat layer exposed; M14.672 Charcot's joint, left ankle and foot
CPT/HCPCS: G0463

== ENCOUNTER 2024-03-08 15:19 | Outpatient (CLI) | payer OTHER, SELFPAY ==
--- OUTSIDE RECORDS SUMMARY | 2024-03-08 15:21 | XMS_ITS | Encounter Summary ---
Author Organization [facility] [place] [place] Address [address] [place] [address] Care Team Providers Care Pie Filling Mixer Name Role Phone Barbara Valentin DO Primary Care Provider Kevin zepeda Encounter Details Date Type Department Care Team (Late st Contact Info) Description 09/22/2023 Documentation Only [facility] [place] [address] [facility] [address] [place] [address] No, Pcp Social History Tobacco [...] on filedocumented in this encounter Care Teams Pie Filling Mixer Relationship Specialty Start Date End Date Barbara [place] [address] PCP - General Family Medicine 09/22/23 documented as of this encounter
--- OUTSIDE RECORDS SUMMARY | 2024-03-08 15:21 | XMS_ITS | Encounter Summary ---
Author Organization [facility] [place] Address [address] [place] [address] Care Team Providers Care Event Specialist Product Demonstrator Name Role Phone Barbara Valentin DO Primary Care Provider Kevin zepeda Encounter Details Date Type Department Care Team (Late st Contact Info) Description 01/23/2024 Office Communication [facility] [place] [address] [place] [address] Ronnell Kirby [address] [place] [address] Social History Tobacco Use Types [...] on filedocumented in this encounter Care Teams Event Specialist Product Demonstrator Relationship Specialty Start Date End Date Barbara Valentin DO [address] [place] [address] PCP - General Family Medicine 09/22/23 documented as of this encounter
--- OUTSIDE RECORDS SUMMARY | 2024-03-08 15:21 | XMS_ITS | Encounter Summary ---
Author Organization [facility] [place] [place] Address [address] [place] [address] Care Team Providers Care Combatant Swimmer Name Role Phone Barbie Barbaraesteban Gomez DO Primary Care Provider Kevin zepeda Encounter Details Date Type Department Care Team (Late st Contact Info) Description 02/01/2024 Telephone [facility] [place] [address] [place] [address] Gabriel Hicks MD [address] [place] [address] Social History Tobacco Use Types [...] * Telephone Encounter - Katie Owen - 03/06/2024 1:18 PM CDT Faxed the Established Patient letter to the PCP as we are unable to reach the patient to rescheduleestablished HFU appointment on 01/31 with HEATHER Barbara. * Telephone Encounter - Katie Owen - 02/16/2024 9:03 AM CDT Mailed the Established PT Missed/Canceled letter to the patient to reschedule their established HFUappointment on 01/31 with HEATHER Jimenez. * Telephone Encounter - Katie Owen - [...] on filedocumented in this encounter Care Teams Combatant Swimmer Relationship Specialty Start Date End Date Barbara Valentin DO [address] [place] [address] PCP - General Family Medicine 09/22/23 documented as of this encounter
--- OUTSIDE RECORDS SUMMARY | 2024-03-08 15:21 | XMS_ITS | Clinical Summary ---
Author Organization [facility] [place] [place] Address [address] [facility] [place] [address] Phone Care Team Providers Care General Medical Practitioner Name Role Phone Sir Valentinesteban Gomez DO [...] Team Description 02/01/2024 Telephone [facility] [place] [address] [facility] [address] [place] [phone] Gabriel Hicks MD 01/23/2024 Documentation Only [facility] [place] [address] [facility] [address] [place] [phone] Ronnell Kirby 01/23/2024 Office Communication [facility] [place] [address] [facility] [address] [place] [phone] Ronnell Kirby from Last 3 Months Immunizations [...] LAB BLOOD ORDERAB LES Performing Organization Address [facility] Co de Phone Number [facility] * (ABNORMAL) Creatine (01/17/2024) Only the most recent of3 resultswithin the time period is included. Creatine, Serum 1.28(H) [facility] GFR Calculated 47(L) [facility] Blood (Blood, Venous) 01/17/2024 Historical Provider MD LAB BLOOD ORDERAB LES Performing Organization Address City/[facility]/ZIP Co de Phone Number [facility] * (ABNORMAL) [...] BESSY from Last 3 Months Care Teams General Medical Practitioner Relationship Specialty Start Date End Date Barbara Valentin DO [address] [place] [address] PCP - General Family Medicine 09/22/23
--- OUTSIDE RECORDS SUMMARY | 2024-03-08 15:21 | XMS_ITS | Encounter Summary ---
Author Organization [facility] [place] [place] Address [address] [place] [address] Care Team Providers Care Turret Punch Press Operator Name Role Phone Barbie Barbaraesteban Gomez DO Primary Care Provider Kevin zepeda Encounter Details Date Type Department Care Team (Late st Contact Info) Description 01/23/2024 Documentation Only [facility] [place] [address] [place] [address] Ronnell Kirby [address] [place] [address] Social History Tobacco Use Types [...] LAB BLOOD ORDERAB LES Performing Organization Address [facility]/ZIP Co de Phone Number [facility] * (ABNORMAL) Creatine (01/17/2024) Creatine, Serum 1.28(H) [facility] GFR Calculated 47(L) [facility] Blood (Blood, Venous) 01/17/2024 Historical Provider MD LAB BLOOD ORDERAB LES Performing Organization Address [facility]/State/ZIP Co de Phone Number [facility] * (ABNORMAL) Creatine (01/16/2024) Creatine, Serum 1.28(H) [facility] GFR Calculated 47(L) [facility] Blood (Blood, Venous) 01/16/2024 Historical Provider MD LAB BLOOD ORDERAB LES Performing Organization Address [facility] de Phone Number [facility] * (ABNORMAL) Creatine (01/15/2024) Pathologist [facility] Creatine, Serum 1.71(H) [facility] GFR Calculated 34(L) [facility] Blood (Blood, Venous) 01/15/2024 Historical Provider MD LAB BLOOD ORDERAB LES Performing Organization Address [facility] Phone Number [facility] * (ABNORMAL) Hemoglobin (01/15/2024) Pathologist [facility] Hemoglobin 8.4(L) g/dL [facility] MCV 91.0 [facility] Blood (Blood, Venous) 01/15/2024 Historical Provider MD LAB BLOOD ORDERAB LES Performing Organization Address [facility] de Phone Number [facility] * (ABNORMAL) Basic Metabolic Panel (BMP) (01/14/2024) Pathologist [facility] Sodium 144 mEq/L [facility] Potassium 4.4 mEq/L [facility] Chloride 112(H) [facility] Carbon Dioxide 23 mmol/L [facility] Calcium 8.4(L) mg/dL [facility] BUN 57(H) mg/dL [facility] Creatinine 2.61(H) mg/dL [facility] Glucose 179(H) mg/dL [facility] eGFR 20(L) [facility] Anion Gap 9 [facility] 01/14/2024 Historical Provider MD LAB BLOOD ORDERAB LES Performing Organization Address [facility] de Phone Number [facility] * (ABNORMAL) CBC (01/14/2024) WBC 8.5 K/uL [facility] Red Blood Cell Count 3.04(L) [facility] Hemoglobin 8.9(L) g/dL [facility] Hematocrit 27.5(L) % [facility] MCV 91 [facility] MCH 29.3 [facility] MCHC 32.4 [facility] RDW 14.4 [facility] Platelet Count 198 [facility] MPV 11.4(H) [facility] Blood (Blood, Venous) 01/14/2024 Historical Provider MD LAB BLOOD ORDERAB LES Performing Organization Address [facility] Co de Phone Number [facility] * (ABNORMAL) Basic Metabolic Panel (BMP) (01/13/2024) Sodium 143 mEq/L [facility] Potassium 4.6 mEq/L [facility] Chloride 111(H) [facility] Carbon Dioxide 21(L) mmol/L [facility] Calcium 8.0(L) mg/dL [facility] BUN 65(H) mg/dL [facility] Creatinine 3.10(H) mg/dL [facility] Glucose 143(H) mg/dL [facility] eGFR 16(L) [facility] Anion Gap 11 [facility] 01/13/2024 Historical Provider MD LAB BLOOD ORDERAB LES Performing Organization Address [facility] Co de Phone Number [facility] * [...] LAB BLOOD ORDERAB LES Performing Organization Address [facility] Co de Phone Number [facility] * [...] on filedocumented in this encounter Care Teams Turret Punch Press Operator Relationship Specialty Start Date End Date Barbara Valentin DO [address] [place] [address] PCP - General Family Medicine 09/22/23 documented as of this encounter
--- OUTSIDE RECORDS SUMMARY | 2024-03-08 15:22 | XMS_ITS | Clinical Summary ---
Author Organization [facility] Address [place], [place] [address] Care Team Providers Care Financial Sales Advisor Name Role Phone Julio Ibrahim MD Unavailable Chuy Doss MD Unavailable Markel Strong MD Unavailable Nikolai Ibarra MD Unavailable [phone] Barbara Valentin DO Primary Care Provider [facility] [place] Unavailable [phone] Allergies Active Allergy Reactions Criticality Noted Date [...] mellitus at risk of hypoglycemia Inhale 1 Willard into affected nostril(s) each time if needed for Severe Hypoglycemia. Roll on side and call 911 after administration. 2 Each 11 12/25/19 Active fluticasone (50 mcg per actuation) nasal solution (FLONASE)Indicati ons:Nasal congestion Inhale 1 Willard into affected nostril(s) once daily. Inhale 1 Willard in the nostril(s) once daily. 16 g [...] continuous glucose monitor READER (FreeStyle Elli 2 [place])Indication s:Type 1 diabetes mellitus with other specified complication (HC) To be used to read blood sugars per produce runner's directions. 1 Each 05/19/20 Active blood-glucose meterIndications: [...] be used to read blood sugars per produce runner's directions. 6 Each 3 09/06/19 24 Active [...] Chronic, continuous use of opioids Inhale 1 Willard into affected nostril(s) each time if needed [...] 024 Discontinued(Re order (E-cancel not sent)) insulin lispro, U-100, (HUMALOG KWIKPEN; ADMELOG SOLOSTAR) [...] 10/07/2023 Overview: [facility] Noemí Claudioi .................... 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 Hospitalized with ketoacidosis [...] Encounters Date Type Department Care Team Description 03/06/2024 10:00 AM CDT Home Care Visit [facility] [address] [place] [address] Geneva Sanchez, LOS SN - HOME VISIT 03/06/2024 9:15 AM CDT Home Care Visit [facility] [address] [place] [phone] Alex Contreras EDUCATIONAL THERAPIST - HOME VISIT 03/03/2024 Home Care Visit [facility] [address] [place] [address] Nitza Riojas LISW CARE COORDINATION 02/28/2024 2:00 PM CDT Home Care Visit [facility] [address] [place] [phone] Shania Elaine, RN SN - HOME VISIT 02/28/2024 10:45 AM CDT Home Care Visit [facility] [address] [place] [address] Fabiola Mathis EDUCATIONAL THERAPIST - HOME VISIT 02/25/2024 Home Care Visit [facility] [address] [place] [phone] Nitza Riojas LISW CARE COORDINATION 02/22/2024 3:00 PM CDT Home Care Visit [facility] [address] [place] [phone] Trini Hitchcock, RN SN - HOME VISIT 02/22/2024 Home Care Visit [facility] [address] [place] [phone] Dar Phillips, OT OT - DISCIPLINE DISCHARGE 02/21/2024 9:45 AM CDT Home Care Visit [facility] [address] [place] [phone] Alex Contreras EDUCATIONAL THERAPIST - HOME VISIT 02/20/2024 Home Care Visit [facility] [address] [place] [phone] Nitza Riojas LISW ALUMINIZER - INITIAL ASSESSMENT 02/16/2024 Refill [facility] [address] [place] [address] Toshia Hooks NP Refill Request (oxyCODONE (ROXICODONE) 5 mg immediate release tablet ) 02/16/2024 Home Care Visit [facility] [address] [place] [phone] Nitza Riojas LISW ALUMINIZER - MISSED VISIT 02/15/2024 3:45 PM CDT Home Care Visit [facility] [address] [place] [phone] Coleman Greene, PT PT - DISCIPLINE DISCHARGE 02/15/2024 11:00 AM CDT Home Care Visit [facility] [address] [place] [phone] Geneva Sanchez, LOS SN - HOME VISIT 02/14/2024 12:00 PM CDT Home Care Visit [facility] [address] [place] [phone] Joi Moreno, VARELA OT - HOME VISIT 02/14/2024 8:15 AM CDT Home Care Visit [facility] [address] [facility] [place] [address] Fabiola Mathis EDUCATIONAL THERAPIST - HOME VISIT 02/10/2024 3:30 PM CDT Home Care Visit [facility] [address] [place] [address] Joi Moreno VARELA OT - HOME VISIT 02/10/2024 Home Care Visit [facility] [address] [place] [address] Nitza Riojas LISW ALUMINIZER - CASE COMMUNICATION 02/09/2024 Refill [facility] [address] [place] [address] Barbara Valentin, Refill Request (Duloxetine) 02/08/2024 3:00 PM CDT Home Care Visit [facility] [address] [place] [address] Veda Resendiz RN SN - WOUND/OSTOMY CHART CONSULT 02/08/2024 9:00 AM CDT Home Care Visit [facility] [address] [place] [address] Geneva Sanchez, LOS SN - HOME VISIT 02/08/2024 Telephone [facility] [address] [place] [address] Barbara Valentin DO Pharmacist Medication Management (MEDICATION CHANGE) 02/08/2024 Telephone [facility] [address] [place] [address] Geneva Sanchez, recreation facility manager List Update 02/07/2024 4:00 PM CDT Home Care Visit [facility] [address] [place] [address] Joi Moreno VARELA OT - HOME VISIT 02/07/2024 9:30 AM CDT Home Care Visit [facility] [address] [place] [address] Kendal Serna, PT PT - HOME VISIT 02/07/2024 Home Care Visit [facility] [address] [place] [address] Fabiola Mathis EDUCATIONAL THERAPIST - MISSED VISIT 02/07/2024 Telephone [facility] [address] [place] [address] Shaqra, Barbara Patricia, DO Refill Request (Insulin lispro pens) 02/04/2024 Refill [facility] [address] [place] [address] Shaqra, Barbara Patricia, DO Refill Request (Insulin Lispro) 02/03/2024 1:00 PM CDT Home Care Visit [facility] [address] [place] [address] Shania Elaine, RN SN - MISSED VISIT 02/03/2024 9:00 AM CDT Home Care Visit [facility] [address] [place] [address] Joi Moreno COTA OT - HOME VISIT 02/02/2024 11:00 AM CDT Home Care Visit [facility] [address] [place] [address] Kendal Serna, PT PT - HOME VISIT 02/01/2024 4:00 PM CDT Home Care Visit [facility] [address] [place] [address] Joi Moreno COTA OT - HOME VISIT 01/31/2024 9:30 AM CDT Home Care Visit [facility] [address] [place] [address] Fabiola Mathis EDUCATIONAL THERAPIST - HOME VISIT 01/31/2024 Home Care Visit [facility] [address] [place] [phone] Oumou Burns, RN CARE COORDINATION 01/31/2024 Home Care Visit [facility] [address] [place] [address], [place] [address] Oumou Burns, RN CARE COORDINATION 01/30/2024 10:45 AM CDT Home Care Visit [facility] [address] [place] [address], [place] [phone] Kendal Serna, PT PT - HOME VISIT 01/30/2024 9:00 AM CDT Home Care Visit [facility] [address] [place] [address], [place] [address] Geneva Sanchez, LOS SN - INITIAL ASSESSMENT 01/27/2024 11:30 AM CDT Home Care Visit [facility] [address] [place] [address], [place] [address] Fabiola Mathis EDUCATIONAL THERAPIST - MISSED VISIT 01/26/2024 5:00 PM CDT Home Care Visit [facility] [address] [place] [address], [place] [address] Guillermo Boykin, PT PT - MISSED VISIT 01/25/2024 1:30 PM CDT Home Care Visit [facility] [address] [place] [address], [place] [address] Coleman Greene, PT PT - HOME VISIT 01/25/2024 Travel 01/24/2024 1:00 PM CDT Home Care Visit [facility] [address] [place] [phone] Dar Phillips, OT OT - INITIAL ASSESSMENT 01/24/2024 9:30 AM CDT Home Care Visit [facility] [address] [place] [phone] Fabiola Mathis EDUCATIONAL THERAPIST - HOME VISIT 01/24/2024 Home Care Visit [facility] [address] [place] [phone] Narcisa Atkinson, RN CARE COORDINATION 01/23/2024 Home Care Visit [facility] [address] [place] [address] Narcisa Atkinson, RN CARE COORDINATION 01/20/2024 Refill [facility] [address] [place] [address] Toshia Hooks NP Refill Request 01/18/2024 1:45 PM CDT Home Care Visit [facility] [address] [place] [address] Kendal Serna, PT PT - OASIS START OF CARE 01/18/2024 10:30 AM CDT Phone Office Visit [facility] Medical Specialties [facility] [address] [place] [address] Nikolai Ibarra MD 01/18/2024 Plan of Care Documentation [facility] [address] [place] [address] 01/18/2024 Patient Outreach [facility] [address] [place] [address] Maria R Ho, RN Primary RN Care Management; Hospital F/U (Lace 44) 01/18/2024 Travel 01/12/2024 9:13 PM CDT - 01/17/2024 5:23 PM CDT Hospital Encounter [facility] [address] [place] [address] Emily Guzman MD Litell, DO Chente Honeycutt, MD Dusty Manjarrez, MD Ricky Alston, Helder Hoover MD [facility] Hospitalists Of Opioid dependence, uncomplicated (HC) (Primary Dx); Nasal congestion; Chronic pain syndrome; Diabetic ketoacidosis without coma associated with type 1 diabetes mellitus (HC); 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, macular edema presence unspecified, unspecified laterality, unspecified proliferative retinopathy type (HC); Heel ulcer, right, with unspecified severity (HC) Discharge Disposition: Home Health 01/09/2024 Refill [facility] [address] [place] [address] Shaqra, Barbara Patricia, DO Refill Request (Fluoxetine) 01/09/2024 Refill [facility] [address] [place] [address] Elian Humphrey MD Refill Request (Torsemide) 01/06/2024 4:00 PM CDT Office Visit [facility] [address] [place] [address] Toshia Hooks NP Follow Up; Pain (Multi source; was told by her Hand Crown Pouncer she can ot use OTC Voltaren gel., which had been helping her O.A. pain (hands; wrists; shoulders; ) ) 01/06/2024 Travel 01/02/2024 Telephone [facility] [address] [place] [address] Barbara Valentin Patricia, DO Follow Up 12/27/2023 Refill [facility] [address] [place] [address] Barbara Valentin Patricia, DO Refill Request (Pregabalin, Cetirizine) 12/23/2023 2:35 PM CDT Office Visit [facility] [address] [place] [address] Barbara Valentin, DO Diabetes (3 month check, labs); Rash (Rash under breasts? ) 12/23/2023 Travel 12/20/2023 Refill [facility] [address] [place] [address] Barbara Valentin Patricia, DO Refill Request (Humalog Kwikpen Insulin) 12/16/2023 Refill [facility] [address] [place] [address] Toshia Hooks NP Refill Request (Patient son called requesting oxycodone 5 mg at [facility].////) 12/15/2023 Telephone [facility] [address] [place] [address] Barbara Valentin, Lab 12/08/2023 Refill [facility] [address] [place] [address] Shaqra, Barbara Patricia, DO Refill Request (Ulticare Pen Needle, Per-fit Underwear) 12/07/2023 Refill [facility] [address] [place] [address] Shaqra, Barbara Patricia, DO Refill Request (Ulticare Pen Needle) from Last 3 Months Immunizations Name Administration Dates Next Due AMB Influenza, IIV3 (Age >=3 years)(Flu Clinic Only) 05/17/2013,05/06/2010 COVID-19 vaccine (ShoppinPal-Bio NTech 30mcg/0.3mL) 12YO+ BIVALENT PF, MDV 04/28/2022 COVID-19 vaccine (ShoppinPal-Bio NTech 30mcg/0.3mL) PF, MDV 06/23/2021 Hepatitis B [...] Pressure 128/60 02/28/2024 2:18 PM CDT Pulse 81 03/06/2024 10:27 AM CDT Temperature 36.6 ??C (97.9 ??F) 03/06/2024 1 0:27 AM CDT Respiratory Rate 18 02/28/2024 2:18 PM CDT Oxygen Saturation 97% 03/06/2024 10: 27 AM CDT Inhaled Oxygen Concentration - - Weight 102.3 kg (225 lb 9.6 oz) 01/16/2024 6:48 AM CDT Height 152.4 cm (5') 01/12/2024 9:27 PM CDT Body Mass Index 44.06 01/12/2024 9:27 PM CDT Plan of Treatment Upcoming Encounters Date Type Department Care Team (Late st Contact Info) Description 03/13/2024 9:15 AM CDT Home Care Visit [facility] [address] [place] [address] Fabiola Mathis [address] [place] [address] 03/14/2024 11:00 AM CDT Appointment [facility] [address] [place] [phone] Geneva Sanchez RN 03/26/2024 3:25 PM CDT Office Visit [facility] [address] [place] [address] Barbara Valentin, [address] [place] [address] 05/04/2024 3:30 PM CDT Phone Office Visit [facility] [address] [place], [place] [phone] Nikolai Ibarra MD [address] [place] [address] Health Maintenance Due Date Last Done Comments Zoster (shingles) series for age 50+ (1 of 2) 12/19/2011 Pap test for age 21-65 08/17/2015 08/17/2012, 2010 Tetanus booster 08/25/2020 08/25/2010, 12/04, 12/30/2002 Mammogram for age 45-75 04/28/2023 04/28/20 22, 03/02/2018, 07/26/2013, Additional history exists Depression screening for age 12+ 08/17/2023 08/17/2022, 08/17/2019, 08/17/2019, Additional history exists COVID-19 vaccine series ( season) 2024 04/28/2022, 06/23/2021, 09/24/2020 Influenza for age 50-64 03/04/2024 04/28/20, 04/28/2021, 03/18/2020, Additional history exists Fecal testing sDNA-FIT ([place] guard) for age 45-75 11/10/2024 11/10/2021 Pneumococcal series for age 6-64 (3 of 3 - PPSV23 or PCV20) 2026 08/17/2016, 08/14/2014, 07/04/2005, Additional history exists Lipids for age 45-75 04/28/2027 04/28/2022, 08/17/2019, 08/31/2018, Additional history exists Tdap Completed 08/25/2010 HIV for age 15-65 Completed 07/21/2015 Hepatitis C screening for ag e 18-79 Completed 02/16/2018 Medical Devices Implanted Type Area Surgical Services Asst Device Identifier Shelf Expiration Date Model / Serial / Lot [id number] 2x12mm [[id number]] Implanted:Qty: 1 on 08/08/2008 at [facility] Explanted:at [facility] (Quantity not on file) [facility] [employer] [id number]# / [id number] / Stem Compnt Primary 8mm Mini - [id number] Implanted:Qty: 1 on 03/17/2011 at [facility] Right: Shoulder BIOMET [id number]# / / [id number] Head Hum Bio-Mod [id number] - [id number] Implanted:Qty: 1 on 03/17/2011 at [facility] Right: Shoulder BIOMET [id number]# / / [id number] Base Glenoid Hybrid 4mm Sm - [id number] Implanted:Qty: 1 on 03/17/2011 at [facility] Right: Shoulder BIOMET [id number]# / / [id number] Cmnt 1/2 [employer] - [id number] Implanted:Qty: 1 on 03/17/2011 at [facility] Right: Shoulder [employer] 6188-1-01 0# / / [id number] Post Glenoid Hybrid Regenerex - [id number] Implanted:Qty: 1 on 03/17/2011 at [facility] Right: Shoulder BIOMET [id number] # / / [id number] Head Humeral 44x15 Co Cr Biomodular - [id number] Implanted:Qty: 1 on 07/12/2012 at [facility] Left: Shoulder BIOMET [id number]# / / [id number] Shoulder Stem Implanted:Qty: 1 on 07/12/2012 at [facility] Left: Shoulder [id number] / / [id number] Description:SHOULDER STEM Cmnt Bone 1/2 [employer] - [id number] Implanted:Qty: 1 on 07/12/2012 at [facility] Left: Shoulder [employer] 6188-1-01 0# / / [id number] Post Glenoid Hybrid Regenerex - [id number] Implanted:Qty: 1 on 07/12/2012 at [facility] Left: Shoulder BIOMET [id number] # / / [id number] Base Glenoid Hybrid 4mm Sm - [id number] Implanted:Qty: 1 on 07/12/2012 at [facility] Left: Shoulder BIOMET [id number]# / / [id number] Procedures Procedure Name Priority Date/Time Associated Diagnosis [...] HIV 1/2 Add On 07/21/2015 9:40 AM CAMPUS EXECUTIVE DIRECTOR BRIDGE WORKER THIN PREP PAP SCREEN IMAGED Routine 08/17/2012 4:02 PM CAMPUS EXECUTIVE DIRECTOR Screening for malignant neoplasm of the cervix [...] - 100 mg/dL 01/17/2024 11:35 AM CDT [facility] Blood BLOOD SPECIMEN / Unknown 01/17/2024 11:27 AM CDT 01/17/2024 11:35 AM CDT Helder García MD CHEMISTRY [facility] [address] [place] [address], * (ABNORMAL) CREATININE (01/17/2024 8:20 AM CDT) Only the most recent of3 resultswithin the time period is included. eGFR 47(L) >90 mL/min/1.7 3m2 01/17/2024 9:06 AM CDT [facility] Comment:As of 2021, eG FR is calculated by the CKD-EPI creatinine equation without race adjustment. ??eGFR can be influenced by muscle mass, exercise, and diet. ??The reported eGFR is an estimation only and is only applicable if the renal function is stable. CREATININE 1.28(H) 0.50 - 0.90 mg/dL 01/17/2024 9:06 AM CDT [facility] Blood BLOOD SPECIMEN / Unknown Non-Lab Venipuncture / Unknown 01/17/2024 8:20 AM CDT 01/17/2024 8:26 AM CDT Helder García MD CHEMISTRY Performing Organization Address [facility]/ZIP Co de Phone Number [facility] [address] [place] [address], * PHOSPHORUS (01/17/2024 8:20 AM CDT) Only the most recent of5 resultswithin the time period is included. PHOSPHORUS 2.6 2.5 - 4.5 mg/dL 01/17/2024 9:06 AM CDT [facility] Blood BLOOD SPECIMEN / Unknown Non-Lab Venipuncture / Unknown 01/17/2024 8:20 AM CDT 01/17/2024 8:26 AM CDT Sarah Betancourt RN CHEMISTRY Performing Organization Address City/[facility]/ZIP Co de Phone Number [facility] [address] [place] [address], [place] * (ABNORMAL) BASIC METABOLIC PANEL (01/17/2024 8:20 AM CDT) Only the most recent of5 resultswithin the time period is included. SODIUM 139 136 - 145 mmol/L 01/17/2024 12:35 PM CDT [facility] POTASSIUM 3.9 3.5 - 5.1 mmol/L 01/17/2024 12:35 PM CDT [facility] CHLORIDE 103 98 - 107 mmol/L 01/17/2024 12:35 PM CDT [facility] CO2,TOTAL 24 22 - 29 mmol/L 01/17/2024 12:35 PM CDT [facility] ANION GAP 12 5 - 18 01/17/2024 12:35 PM T [facility] GLUCOSE 162(H) 70 - 99 mg/dL 01/17/2024 12:35 PM T [facility] CALCIUM 8.7(L) 8.8 - 10.2 mg/dL 01/17/2024 12:35 PM T [facility] BUN 17 8 - 23 mg/dL 01/17/2024 12:35 PM T [facility] CREATININE 1.31(H) 0.50 - 0.90 mg/dL 01/17/2024 12:35 PM [facility] BUN/CREAT RATIO 13 10 - 20 12:35 PM T [facility] eGFR 46(L) >90 mL/min/1.7 3m2 01/17/2024 12:35 PM T [facility] Comment: As of 2021, eGFR is [...] 8:26 AM CDT Helder García MD CHEMISTRY [facility] [address] [place] [address], [place] * CLOSTRIDIOIDES DIFFICILE TOXIN PCR (01/16/2024 12:27 PM CDT) Pathologist [facility] CLOSTRIDIUM DIFFICILE PCR Negative 01/16/2024 2:18 PM CDT [facility] PRESUMPTIVE NAP1 STRAIN Negative 01/16/2024 2:18 PM CDT [facility] Stool STOOL SPECIMEN / Unknown Non-Blood / Unknown 01/16/2024 12:27 PM CDT 01/16/2024 12:51 PM CDT Narrative [facility] - 01/16/2024 2:18 PM CDT The NAP1 (027 or BI) strain is a hypervirulent strain. Detection may be useful for epidemiological purposes. Helder García MD MICROBIOLOGY Performing Organization Address [facility] Co de Phone Number [facility] [address] [place] [address], * SCAN CORRESP-EKG RESULTS (01/16/2024 9:07 AM CDT) Narrative 01/16/2024 9:07 AM CDT Ordered by an unspecified provider. Other Clinical Staff OTHER * (ABNORMAL) HEMOGLOBIN (01/16/2024 6:30 AM CDT) Only the most recent of2 resultswithin the time period is included. Pathologist [facility] HEMOGLOBIN 8.9(L) 12.0 - 16.0 g/dL 01/16/2024 7:13 AM CDT [facility] MCV 91 80 - 100 fL 01/16/2024 7:13 AM CDT [facility] Blood BLOOD SPECIMEN / Unknown Venipuncture / Unknown 01/16/2024 6:30 AM CDT 01/16/2024 6:58 AM CDT Fabrizio Montano MD HEMATOLOGY Performing Organization Address [facility]/ZIP Co de Phone Number [facility] [address] [place] [address], * VANCOMYCIN (01/16/2024 6:30 AM CDT) Only the most recent of3 resultswithin the time period is included. VANCOMYCIN 13.0 ug/mL 01/16/2024 7:42 AM CDT [facility] Comment:No Reference Range D efined. DATE OF LAST DOSE,RANDOM Not Given 01/16/2024 7:42 AM CDT [facility] TIME OF LAST DOSE,RANDOM Not Given 01/16/2024 7:42 AM CDT [facility] Blood BLOOD SPECIMEN / Unknown Venipuncture / Unknown 01/16/2024 6:30 AM CDT 01/16/2024 6:58 AM CDT Barbara Holcomb NP CHEMISTRY Performing Organization Address City/[facility]/ZIP Co de Phone Number [facility] [address] [place] [address], * (ABNORMAL) PLATELET COUNT (01/15/2024 6:02 AM CDT) PLATELET COUNT 166 140 - 440 thou/cu mm 01/15/2024 6:44 AM CDT [facility] MPV 11.2(H) 6.5 - 11.0 fL 01/15/2024 6:44 AM CDT [facility] Blood BLOOD SPECIMEN / Unknown Venipuncture / Unknown 01/15/2024 6:02 AM CDT 01/15/2024 6:26 AM CDT Fabrizio Montano MD HEMATOLOGY [facility] [address] [place] [address], * WHITE BLOOD COUNT (01/15/2024 6:02 AM CDT) WHITE BLOOD COUNT 4.9 4.5 - 11.0 thou/cu mm 01/15/2024 6:44 AM CDT [facility] NRBC 0.0 % 01/15/2024 6:44 AM CDT [facility] ABS NRBC 0.0 thou /cu mm 01/15/2024 6:44 AM CDT [facility] Blood BLOOD SPECIMEN / Unknown Venipuncture / Unknown 01/15/2024 6:02 AM CDT 01/15/2024 6:26 AM CDT Fabrizio Montnao MD HEMATOLOGY Performing Organization Address [facility] Co de Phone Number [facility] [address] [place] [address], [place] * Sodium AM (01/15/2024 6:02 AM CDT) SODIUM 142 136 - 145 mmol/L 01/15/2024 7:13 AM CDT [facility] Blood BLOOD SPECIMEN / Unknown Venipuncture / Unknown 01/15/2024 6:02 AM CDT 01/15/2024 6:27 AM CDT Fabrizio Montano MD CHEMISTRY Performing Organization Address [facility] Co de Phone Number [facility] [address] [place], [place] [id number], [place] * Potassium AM (01/15/2024 6:02 AM CDT) Only the most recent of3 resultswithin the time period is included. POTASSIUM 4.4 3.5 - 5.1 mmol/L 01/15/2024 7:13 AM CDT [facility] Blood BLOOD SPECIMEN / Unknown Venipuncture / Unknown 01/15/2024 6:02 AM CDT 01/15/2024 6:27 AM CDT Fabrizio Montano MD CHEMISTRY Performing Organization Address [facility] [facility] Co de Phone Number [facility] [address] [place] [address], [place] * SCAN-CARDIAC STRIP (01/14/2024 7:07 AM CDT) Scanner OTHER * (ABNORMAL) CBC W PLT NO DIFF (01/14/2024 5:28 AM CDT) WHITE BLOOD COUNT 8.5 4.5 - 11.0 thou/cu mm 01/14/2024 6:33 AM CDT [facility] RED BLOOD COUNT 3.04(L) 4.00 - 5.20 mil/cu mm 01/14/2024 6:33 AM CDT [facility] HEMOGLOBIN 8.9(L) 12.0 - 16.0 g/dL 01/14/2024 6:33 AM T [facility] HEMATOCRIT 27.5(L) 33.0 - 51.0 % 01/14/2024 6:33 AM CDT [facility] MCV 91 80 - 100 fL 01/14/2024 6:33 AM CDT [facility] MCH 29.3 26.0 - 34.0 pg 01/14/2024 6:33 AM CDT [facility] MCHC 32.4 32.0 - 36.0 g/dL 01/14/2024 6:33 AM T [facility] RDW 14.4 11.5 - 15.5 % 01/14/2024 6:33 AM T [facility] PLATELET COUNT 198 140 - 440 thou/cu mm 01/14/2024 6:33 AM T [facility] MPV 11.4(H) 6.5 - 11.0 fL 01/14/2024 6:33 AM CDT [facility] NRBC 0.0 % 01/14/2024 6:33 AM CDT [facility] ABS NRBC 0.0 thou /cu mm 01/14/2024 6:33 AM T [facility] Blood BLOOD SPECIMEN / Unknown Non-Lab Venipuncture / Unknown 01/14/2024 5:28 AM CDT 01/14/2024 6:31 AM CDT Barbara Holcomb NP HEMATOLOGY Performing Organization Address [facility] de Phone Number [facility] [address] [place] [address], * (ABNORMAL) CALCIUM IONIZED HOSPITAL DRAW ONLY (01/14/2024 5:28 AM CDT) Only the most recent of3 resultswithin the time period is included. Pathologist [facility] CALCIUM,IONIZE D 1.30(H) 1.15 - 1.27 mmol/L 01/14/2024 6:03 AM CDT [facility] Blood BLOOD SPECIMEN / Unknown Non-Lab Venipuncture / Unknown 01/14/2024 5:28 AM CDT 01/14/2024 5:49 AM CDT Grace Eldridge MD CHEMISTRY Performing Organization Address [facility] de Phone Number [facility] [address] [place] [address], * ECHO TTE COMPLETE W CONTRAST (01/13/2024 3:56 PM CDT) Pathologist [facility] AORTIC VALVE MEAN PG 7 mmHg EJECTION FRACTION 64 % LVEDD 4.1 cm EJECTION FRACTION 60 - 65% Anatomical Region Laterality Modality Ultrasound 01/13/2024 2:53 PM CDT Narrative 01/13/2024 4:39 PM CDT ECHOCARDIOGRAM MIKAYLA KUHN ? Accession#: ?? [id number] : ?1960 63 years Study Date: ?? 01/13/2024 2:53:14 PM Gender: F ?BP: ? 114/44 mmHg Height: 152.00 cm ?BSA: ?1.93 m? ? ? Weight: 98.00 kg ? Tech: ? KBA ? Referring MD: BARBARA HOLCOMB Site: ? [facility] Reading Location: ANW IP Patient Location: [...] diluted Definity, lot #[id number], [facility]# [id number] was administered peripherally to enhance visualization of all left ventricular segments. . This study was interpreted by an [facility] accredited facility. ??Final ?? Procedure Note Travon Blood MD - 01/13/2024 ECHOCARDIOGRAM MIKAYLA KUHN : 1960 63 years Study Date: 01/13/2024 2:53:14 PM Gender: F BP: 114/44 mmHg Height: 152.00 cm BSA: 1.93 m? ? ? Weight: 98.00 kg Tech: PASQUALE Referring MD: BARBARA HOLCOMB Site: [facility] Reading Location: ANW IP Patient Location: [...] diluted Definity, lot #[id number], [facility]#[id number] was administered peripherally to enhance visualization of allleft ventricular segments. . This study was interpreted by an [facility] accredited facility. Final Barbara Holcomb CRYSTAL MOUNTER ECHO ORD * US ARTERIAL LOWER EXTREMITY [...] 125 mmHg Left Brachial: 111 mmHg Right PATTERN DATA OPERATOR: Noncompressible Right DPA: 115 mmHg (SAMUEL 0.92) Left PATTERN DATA OPERATOR: Noncompressible Left DPA: Noncompressible SAMUEL: 1.0-1.4 - normal 0.9-0.99 - borderline 0.80-0.89 - mild 0.50-0.79 - moderate 0.30-0.49 - severe < 0.30 - critical RIGHT: ROTOR BALANCER PROX: 204 cm/sec; triphasic waveforms ROTOR BALANCER DIST: 138 cm/sec; triphasic waveforms PFA: 97 cm/sec; triphasic waveforms SFA PROX: 140, 111 cm/sec; triphasic waveforms SFA MID: 113, 74 cm/sec; triphasic waveforms SFA DIST: 107, 113 cm/sec; triphasic waveforms POP PROX: 105 cm/sec; triphasic waveforms POP DIST: 89 cm/sec; triphasic waveforms PATTERN DATA OPERATOR: 32 cm/sec; triphasic waveforms KAITLYN: 58 cm/sec; triphasic waveforms DPA: 56 cm/sec; triphasic waveforms LEFT: ROTOR BALANCER PROX: 193 cm/sec; triphasic waveforms ROTOR BALANCER DIST: 152 cm/sec; triphasic waveforms PFA: 98 cm/sec; triphasic waveforms SFA PROX: 119, 109 cm/sec; triphasic waveforms SFA MID: 103, 102 cm/sec; triphasic waveforms SFA DIST: 103, 100 cm/sec; triphasic waveforms POP PROX: 124 cm/sec; triphasic waveforms POP DIST: 85 cm/sec; triphasic waveforms PATTERN DATA OPERATOR: 169 cm/sec; triphasic waveforms KAITLYN: 91 [...] 125 mmHg Left Brachial: 111 mmHg Right PATTERN DATA OPERATOR: Noncompressible Right DPA: 115 mmHg (SAMUEL 0.92) Left PATTERN DATA OPERATOR: Noncompressible Left DPA: Noncompressible SAMUEL: 1.0-1.4 - normal 0.9-0.99 - borderline 0.80-0.89 - mild 0.50-0.79 - moderate 0.30-0.49 - severe < 0.30 - critical RIGHT: ROTOR BALANCER PROX: 204 cm/sec; triphasic waveforms ROTOR BALANCER DIST: 138 cm/sec; triphasic waveforms PFA: 97 cm/sec; triphasic waveforms SFA PROX: 140, 111 cm/sec; triphasic waveforms SFA MID: 113, 74 cm/sec; triphasic waveforms SFA DIST: 107, 113 cm/sec; triphasic waveforms POP PROX: 105 cm/sec; triphasic waveforms POP DIST: 89 cm/sec; triphasic waveforms PATTERN DATA OPERATOR: 32 cm/sec; triphasic waveforms KAITLYN: 58 cm/sec; triphasic waveforms DPA: 56 cm/sec; triphasic waveforms LEFT: ROTOR BALANCER PROX: 193 cm/sec; triphasic waveforms ROTOR BALANCER DIST: 152 cm/sec; triphasic waveforms PFA: 98 cm/sec; triphasic waveforms SFA PROX: 119, 109 cm/sec; triphasic waveforms SFA MID: 103, 102 cm/sec; triphasic waveforms SFA DIST: 103, 100 cm/sec; triphasic waveforms POP PROX: 124 cm/sec; triphasic waveforms POP DIST: 85 cm/sec; triphasic waveforms PATTERN DATA OPERATOR: 169 cm/sec; triphasic waveforms KAITLYN: 91 [...] MD @ 01/14/2024 4:57:16 PM (Electronically Signed) rFeya Schafer NP US * US RENAL AND [...] 01/14/2024 2:34:58 AM (Electronically Signed) Barbara Holcomb CRYSTAL MOUNTER US * XR FOOT 3 VIEWS LEFT [...] CULTURE RESULT(A) 01/16/2024 2:[address] [facility] CULTURE 3+ Corynebacterium striatum 01/16/2024 2:[address] [facility] CULTURE 2+ Mixed oni present 01/16/2024 2:[address] [facility] GRAM STAIN No PMNs 01/16/2024 2:[address] [facility] GRAM STAIN 2+ RBCs 01/16/2024 2:[address] [facility] GRAM STAIN No Epithelial cells 01/15 2:[address] [facility] GRAM STAIN 2+ Gram Positive Bacilli 01/16/2024 2:[address] [facility] Other (Other) Non-Blood / Unknown 01/13/2024 11:49 AM CDT 01/13/2024 12:00 PM CDT Narrative [facility] - 01/16/2024 2:44 PM CDT Mixed oni; No Staphylococcus aureus, beta-Streptococcus, Streptococcus pneumoniae, or Pseudomonas aeruginosa isolated. Freya Schafer NP MICROBIOLOGY [facility] [address] [place] [address], * ANAEROBIC CULTURE (01/13/2024 11:49 AM CDT) CULTURE No anaerobes isolated 01/19/2024 10:01 AM CDT [facility] Other (Other) Non-Blood / Unknown 01/13/2024 11:49 AM CDT 01/13/2024 12:00 PM CDT Freya Schafer NP MICROBIOLOGY Performing Organization Address [facility]/ZIP Co de Phone Number [facility] [address] * (ABNORMAL) Electrolytes Panel - DKA (01/13/2024 10:53 AM CDT) Only the most recent of3 resultswithin the time period is included. SODIUM 140 136 - 145 mmol/L 01/13/2024 11:36 AM CDT [facility] POTASSIUM 5.2(H) 3.5 - 5.1 mmol/L 01/13/2024 11:36 AM CDT [facility] CHLORIDE 107 98 - 107 mmol/L 01/13/2024 11:36 AM CDT [facility] CO2,TOTAL 21(L) 22 - 29 mmol/L 01/13/2024 11:36 AM CDT [facility] ANION GAP 12 5 - 18 01/13/2024 11:36 AM CDT [facility] Blood BLOOD SPECIMEN / Unknown Non-Lab Venipuncture / Unknown 01/13/2024 10:53 AM CDT 01/13/2024 11:01 AM CDT Ifeanyi Hernández RN CHEMISTRY Performing Organization Address [facility] Co de Phone Number [facility] [address] * SCAN-CARDIAC STRIP (01/13/2024 8:00 AM CDT) Scanner OTHER * MAGNESIUM (01/13/2024 4:22 AM CDT) Only the most recent of2 resultswithin the time period is included. MAGNESIUM 1.9 1.6 - 2.4 mg/dL 01/13/2024 5:07 AM CDT [facility] Blood BLOOD SPECIMEN / Unknown Non-Lab Venipuncture / Unknown 01/13/2024 4:22 AM CDT 01/13/2024 4:41 AM CDT Ifeanyi Hernández RN CHEMISTRY Performing Organization Address [facility] de Phone Number [facility] [address] [place] [address], [place] * (ABNORMAL) Serum Glucose - DKA (01/13/2024 1:52 AM CDT) Only the most recent of2 resultswithin the time period is included. [facility] GLUCOSE,RANDOM 459(H) 70 - 139 mg/dL 01/13/2024 2:46 AM CDT [facility] Blood BLOOD SPECIMEN / Unknown Non-Lab Venipuncture / Unknown 01/13/2024 1:52 AM CDT 01/13/2024 2:03 AM CDT Emily Guzman MD CHEMISTRY Performing Organization Address [facility] de Phone Number [facility] [address] [place] [address], [place] * (ABNORMAL) TROPONIN T (HS) ONE TIME (01/12/2024 11:39 PM CDT) [facility] TROPONIN T HS 45(H) 6-10 ng/L ng/L 01/13/2024 12:22 AM CDT [facility] Blood BLOOD SPECIMEN / Unknown Non-Lab Venipuncture / Unknown 01/12/2024 11:39 PM CDT 01/12/2024 11:45 PM CDT Emily Guzman MD CHEMISTRY Performing Organization Address [facility] Co de Phone Number [facility] [address] [place] [address], [place] * 12 Lead EKG (01/12/2024 10:16 PM CDT) [facility] Interpretation Normal sinus rhythm Left axis deviation Abnormal ECG When compared with ECG of 02-Jan-2019 02:01, Nonspecific T wave abnormality now evident in Lateral leads [facility] NOW Ventricular Rate 78 BPM [facility] NOW Atrial Rate 78 BPM [facility] NOW P-R Interval 160 ms [facility] NOW QRS Duration 82 ms [facility] NOW QT 400 ms [facility] NOW QTc 456 ms [facility] NOW P Tea 72 degrees [facility]YOND NOW R Tea -31 degrees [facility] NOW T Tea 69 degrees BEYOND NOW 01/12/2024 10:1 6 PM CDT 01/13/2024 8:20 PM CDT Emily Guzman MD EKG ORD Performing Organization Address City/[facility]/ZIP Co de Phone Number [place] [place], [place] * MRSA/SA PCR (01/12/2024 10:07 PM CDT) MRSA DNA PCR Negative Negative 01/12/2024 11:33 PM CDT [facility] STAPHYLOCOCCUS AUREUS PCR Negative Negative 01/12/2024 11:33 PM CDT [facility] Other SPECIMEN FROM INTERNAL NOSE / Unknown Non-Blood / Unknown 01/12/2024 10:07 PM CDT 01/12/2024 10:13 PM CDT Narrative [facility] - 01/12/2024 11:33 PM CDT Test result does not preclude MRSA or SA nasal colonization. Chaparro Sneed DO MICROBIOLOGY Performing Organization Address [facility] Co de Phone Number [facility] [address] [place] [address], * (ABNORMAL) Urine Culture (01/12/2024 10:07 PM CDT) CULTURE RESULT(A) 01/16/2024 6:58 AM CDT [facility] CULTURE 10,000-50,000 CFU/mL Proteus mirabilis 01/16/2024 6:58 AM CDT [facility] CULTURE 50,000-100,000 CFU/mL Danita albicans 01/16/2024 6:58 AM CDT [facility] Urine URINE SPECIMEN / [...] 128: R Emily Guzman MD MICROBIOL OGY [facility] [address] [place] [address], * Blood Culture (01/12/2024 9:40 PM CDT) Only the most recent of2 resultswithin the time period is included. CULTURE No Growth. 01/16/2024 11:23 PM CDT [facility] Blood BLOOD SPECIMEN / Unknown Venipuncture / Unknown 01/12/2024 9:40 PM CDT 01/12/2024 9:[address] [facility] - 01/16/2024 11:23 PM CDT Low volume blood culture received; possible false negative culture. Emily Guzman MD MICROBIOL OGY [facility] [address] [place] [address], [place] * (ABNORMAL) TROPONIN T(HS) ACUTE W/2HR REFLEX (01/12/2024 9:37 PM CDT) TROPONIN T HS 47(H) 6-10 ng/L ng/L 01/12/2024 10:16 PM CDT [facility] Blood BLOOD SPECIMEN / Unknown Non-Lab Venipuncture / Unknown 01/12/2024 9:37 PM CDT 01/12/2024 9:46 PM CDT [facility] - 01/12/2024 10:16 PM CDT hs-cTnT (Elecs[employer] [...] department patient population. Emily Guzman MD CHEMISTRY [facility] [address] [place] [address], * (ABNORMAL) CBC WITH AUTO DIFFERENTIAL (01/12/2024 9:37 PM CDT) [facility] WHITE BLOOD COUNT 14.9(H) 4.5 - 11.0 thou/cu mm 01/12/2024 9:54 PM CDT [facility] RED BLOOD COUNT 3.61(L) 4.00 - 5.20 mil/cu mm 01/12/2024 9:54 PM CDT [facility] HEMOGLOBIN 10.5(L) 12.0 - 16.0 g/dL 01/12/2024 9:54 PM CDT [facility] HEMATOCRIT 32.6(L) 33.0 - 51.0 % 01/12/2024 9:54 PM CDT [facility] MCV 90 80 - 100 fL 01/12/2024 9:54 PM CDT [facility] MCH 29.1 26.0 - 34.0 pg 01/12/2024 9:54 PM CDT [facility] MCHC 32.2 32.0 - 36.0 g/dL 01/12/2024 9:54 PM CDT [facility] RDW 13.2 11.5 - 15.5 % 01/12/2024 9:54 PM CDT [facility] PLATELET COUNT 273 140 - 440 thou/cu mm 01/12/2024 9:54 PM CDT [facility] MPV 11.0 6.5 - 11.0 fL 01/12/2024 9:54 PM CDT [facility] NRBC 0.0 % 01/12/2024 9:54 PM CDT [facility] ABS NRBC 0.0 thou /cu mm 01/12/2024 9:54 PM CDT [facility] % NEUT 80.3 % 01/12/2024 9:54 PM CDT [facility] % LYMPH 9.6 % 01/12/2024 9:54 PM CDT [facility] % MONO 9.2 % 01/12/2024 9:54 PM CDT [facility] % EOS 0.1 % 01/12/2024 9:54 PM CDT [facility] % BASO 0.1 % 01/12/2024 9:54 PM CDT [facility] % IMMATURE GRAN (METAS,MYELOS,IL OS) 0.7 % 01/12/2024 9:54 PM CDT [facility] ABSOLUTE NEUTROPHILS 12.0(H) 1.7 - 7.0 thou/cu mm 01/12/2024 9:54 PM CDT [facility] ABSOLUTE LYMPHOCYTES 1.4 0.9 - 2.9 thou/cu mm 01/12/2024 9:54 PM CDT [facility] ABSOLUTE MONOCYTES 1.4(H) <0.9 thou/cu mm 01/12/2024 9:54 PM CDT [facility] ABSOLUTE EOSINOPHILS 0.0 <0.5 thou/cu mm 01/12/2024 9:54 PM CDT [facility] ABSOLUTE BASOPHILS 0.0 <0.3 thou/cu mm 01/12/2024 9:54 PM CDT [facility] ABSOLUTE IMMATURE GRANULOCYTES(MET ,MYELOS,PROS) 0.1 <0.3 thou/cu mm 01/12/2024 9:54 PM CDT [facility] Blood BLOOD SPECIMEN / Unknown Non-Lab Venipuncture / Unknown 01/12/2024 9:37 PM CDT 01/12/2024 9:46 PM CDT Emily Guzman MD HEMATOLOG Y [facility] [address] [place] [address], * (ABNORMAL) BLOOD GAS,VENOUS (01/12/2024 9:37 PM CDT) Pathologist [facility] PH, VENOUS 7.25(L) 7.32 - 7.43 01/12/2024 9:52 PM CDT [facility] PCO2, VENOUS 44 41 - 51 mmHg 01/12/2024 9:52 PM CDT [facility] PO2, VENOUS 48(H) 35 - 40 mmHg 01/12/2024 9:52 PM CDT [facility] HCO3,VENOUS 19(L) 22 - 29 mmol/L 01/12/2024 9:52 PM CDT [facility] BASE EXCESS, VENOUS, POCT -7.7(L) -2.0 - 3.0 01/12/2024 9:52 PM CDT [facility] O2 SATURATION, VENOUS 85(H) 70 - 75 % 01/12/2024 9:52 PM CDT [facility] INSPIRED O2 21 01/12/2024 9:52 PM CDT [facility] Comment:Unit of Measure: Lit ers (L) if <=20; Percent (%) if >20 PATIENT TEMPERATURE 36.9 Degrees C 01/12/2024 9:52 PM CDT [facility] Blood VENOUS BLOOD SPECIMEN / Unknown Non-Lab Venipuncture / Unknown 01/12/2024 9:37 PM CDT 01/12/2024 9:46 PM CDT Emily Guzman MD CHEMISTRY [facility] [address] [address], * Protime - INR (01/12/2024 9:37 PM CDT) INR 1.0 <1.3 01/12/2024 9:56 PM CDT [facility] PROTIME 11.5 10.3 - 12.3 sec 01/12/2024 9:56 PM CDT [facility] Blood BLOOD SPECIMEN / Unknown Non-Lab Venipuncture / Unknown 01/12/2024 9:37 PM CDT 01/12/2024 9:46 PM CDT Narrative [facility] - 01/12/2024 9:56 PM CDT ?Therapeutic [...] on UFH. Emily Guzman MD HEMATOLOG Y [facility] [address] [address], * (ABNORMAL) HEMOGLOBIN A1C MONITORING (POCT) (01/12/2024 9:37 PM CDT) Only the most recent of2 resultswithin the time period is included. HEMOGLOBIN A1C MONITORING (POCT) 9.3(H) <=6.4 % 01/14/2024 10:29 AM CDT [facility] Blood BLOOD SPECIMEN / Unknown Non-Lab Venipuncture / Unknown 01/12/2024 9:37 PM CDT 01/12/2024 9:46 PM CDT Narrative [facility] - 01/14/2024 10:29 AM CDT [...] Anemias, Splenectomy ? Barbara Holcomb NP CHEMISTRY [facility] [address] [place] [address], [place] * (ABNORMAL) Hepatic Function Panel (01/12/2024 9:37 PM CDT) ALBUMIN 3.2(L) 4.0 - 4.9 g/dL 01/12/2024 10:16 PM CDT [facility] PROTEIN,TOTAL 6.4 6.0 - 8.0 g/dL 01/12/2024 10:16 PM CDT [facility] BILIRUBIN,TOTAL 0.2 0.0 - 1.2 mg/dL 01/12/2024 10:16 PM CDT [facility] BILIRUBIN,DIRECT <0.2 0.0 - 0.3 mg/dL 01/12/2024 10:16 PM CDT [facility] BILIRUBIN,INDIRE CT 01/12/2024 10:16 PM CDT [facility] Comment:Unable to calculate, Direct Bili <0.2 ALK PHOSPHATASE 122(H) 35 - 104 IU/L 01/12/2024 10:16 PM CDT [facility] ALT (SGPT) 21 10 - 35 IU/L 01/12/2024 10:16 PM CDT [facility] AST (SGOT) 20 10 - 35 IU/L 01/12/2024 10:16 PM CDT [facility] Blood BLOOD SPECIMEN / Unknown Non-Lab Venipuncture / Unknown 01/12/2024 9:37 PM CDT 01/12/2024 9:46 PM CDT Emily Guzman MD CHEMISTRY [facility] [address] [place] [address], * SCAN-CARDIAC STRIP (01/12/2024 9:20 PM CDT) [...] health care provider. XR MAMMO BILAT SCREENING [[id number]] CLINICAL HISTORY: ??This is an asymptomatic 61 y.o. patient. INDICATION FOR EXAM: Mammogram Screening. TECHNIQUE: CC & MLO views were obtained. ??This study was evaluated with the assistance of Computer-Aided Detection. COMPARISON FILM: [facility] FINDINGS: ??The breasts are extremely dense, which lowers the sensitivity of mammography. There are no dominant masses, suspicious micro calcifications or areas of architectural distortion. Shania Montiel MD MAMMO * LIPID PANEL W REFLEX MEASURED LDL (04/28/2022 1:44 PM CDT) CHOLESTEROL,TOTAL 139 100 - 199 mg/dL 04/30/2022 6:25 PM CDT [facility] TRIGLYCERIDES 141 <150 mg/dL 04/30/2022 6:25 PM CDT [facility] HDL CHOLESTEROL 42 >40 mg/dL 6:25 PM CDT [facility] NON-HDL CHOLESTEROL 97 <145 mg/dl 04/30/2022 6:25 PM CDT [facility] CHOL/HDL RATIO 3.31 <4.50 04/30/2022 6:25 PM CDT [facility] LDL CHOLESTEROL 69 <=130 mg/dL 04/30/2022 6:25 PM CDT [facility] VLDL CHOLESTEROL 28 <=30 mg/dL 04/30/2022 6:25 PM CDT [facility] PROVIDER ORDERED STATUS RANDOM 04/30/2022 6:25 PM CDT [facility] Blood BLOOD SPECIMEN / Unknown Venipuncture / Unknown 04/28/2022 1:44 PM CDT 04/28/2022 1:45 PM CDT Shania Montiel MD CHEMISTRY [facility] [address] [place] [address], * FECAL DNA (AKA COLOGUARD) (11/10/2021 1:00 PM CDT) Shania Montiel MD COMMUNICATION ORD * ANTI HCV [[id number]] (02/16/2018 4:20 PM CDT) HEPATITIS C ANTIBODY Non-React alex Non-React alex 02/17/2018 2:48 PM CDT [facility] Comment:Antibodies to HCV no t detected; does not exclude the possibility of exposure to HCV. Blood BLOOD SPECIMEN / Unknown Butterfly / Unknown 02/16/2018 4:20 PM CDT 02/16/2018 4:20 PM CDT Coleman Plata MD SEND OUTS [facility] [address] [place] [address], * HIV 1&2 TODAY (07/21/2015 9:40 AM CAMPUS EXECUTIVE DIRECTOR) HIV-1/HIV-2 ANTIBODY Non-Reacti ve Non-Reacti ve 07/21/2015 10:31 AM CAMPUS EXECUTIVE DIRECTOR [facility] Blood specimen (specimen) BLOOD SPECIMEN / Unknown Venipuncture / Unknown 07/21/2015 9:40 AM CAMPUS EXECUTIVE DIRECTOR 07/21/2015 9:47 AM CAMPUS EXECUTIVE DIRECTOR Narrative [facility] - 07/21/2015 10:31 AM CAMPUS EXECUTIVE DIRECTOR HIV-1 p24 and HIV-1/HIV-2 Ab not detected Kait Morales DO SEND OUTS [facility] [address] [place] [address], * BRIDGE WORKER THIN PREP PAP SCREEN IMAGED (08/17/2012 4:02 PM CAMPUS EXECUTIVE DIRECTOR) Pathologist [facility] CYTOLOGY CYTOPATHOLOGY REPORT [email or web address] Status: Final Status ?[id number] CLINICAL INFORMATION Last Date of LMP ? :07/03/2012 Last Pap Date ?:02/01/2011 Last Pap Result ?:NIL ABN [place]/Bx Past 5 YRS :None Hormone Usage ?:BCP/OCP/Patch/R ing Menstrual Status ? :Regular Periods [place]/Bx done today ? :No Additional Information :None [...] COLLECTED:08/17/12 ? ACCESSIONED: ??08/18/12 ?? 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 7/16/24 Not eligible to d/c precautions, pt admitted [...] Urine earlier this year (per report from [facility], not available in CareEverywhere), 04/19/18 L cheek abscess exclusions for contact precaution discontinuation (if > 12 months since positive culture): resides in acute/residential care, receiving hemodialysis, has chronic open wounds/skin [...] 8:01 PM 07/15/2012 6:55 PM Care Teams Financial Sales Advisor Relationship Specialty Start Date End Date Barbara Valentin DO [address] [place] [address] PCP - General Family Practice 11/15/22 Julio Ibrahim MD [address] [facility] [address] [place] [address] Surgery - Orthopedics 02/01/11 Chuy Doss MD [address] [facility] [address] [place] [address] Surgery - Vascular 02/01/11 Markel Strong MD [address] [place] [address] Provider Family Practice 08/08/20 Nikolai Ibarra MD [address] [facility] [address] [place] [address] Endocrinology 09/07/22 [facility] [address] [place] [address] 01/17/24 Suad Ng/ [employer] 07/14/17 [facility] Home Health Nurse 07/01/17 [facility] Services Home Health Aide 07/14/17 [facility] Maintenance Machine Repairer/ Ally Christianson [address] [place] [id number] [employer] 07/07/17
== END 2024-03-08 15:20 | disposition home or self-care (01) ==
LOC: WOUND 15:19
PROVIDERS: PCP Family Medicine; Visit Provider Nurse Practitioner Family
DX: E11.621 Type 2 diabetes mellitus with foot ulcer (principal); L97.422 Non-pressure chronic ulcer of left heel and midfoot with fat layer exposed; M14.672 Charcot's joint, left ankle and foot
CPT/HCPCS: 11042

== ENCOUNTER 2024-03-15 15:03 | Outpatient (CLI) | payer OTHER, SELFPAY ==
--- OUTSIDE RECORDS SUMMARY | 2024-03-15 15:05 | XMS_ITS | Encounter Summary ---
Author Organization [facility] Address [address] [place] [address] Care Team Providers Care Stem Lead Former Name Role Phone Barbara Valentin DO Primary Care Provider [phone] Encounter Details Date Type Department Care Team (Late st Contact Info) Description 01/23/2024 Office Communication [facility] [place] [address] [place] [address] Ronnell Kirby [address] [place] [address] Social History Tobacco Use Types [...] on filedocumented in this encounter Care Teams Stem Lead Former Relationship Specialty Start Date End Date Barbara Valentin DO Roxy Calderon [facility] [place] [address] PCP - General Family Medicine 09/22/23 documented as of this encounter
--- OUTSIDE RECORDS SUMMARY | 2024-03-15 15:05 | XMS_ITS | Encounter Summary ---
Author Organization [facility] Address [address] [place] [address] Care Team Providers Care Deputy Fire Chief Name Role Phone Barbara Valentin DO Primary Care Provider [phone] Encounter Details Date Type Department Care Team (Late st Contact Info) Description 09/22/2023 Documentation Only [facility] [place] [address] [facility] [address] [place] [address] No, Pcp Social History Tobacco [...] on filedocumented in this encounter Care Teams Deputy Fire Chief Relationship Specialty Start Date End Date Barbara Valent[place] [address] PCP - General Family Medicine 09/22/23 documented as of this encounter
--- OUTSIDE RECORDS SUMMARY | 2024-03-15 15:05 | XMS_ITS | Clinical Summary ---
Author Organization [facility] [place] [place] Address [address] [facility] [place] [address] Phone Care Team Providers Care Electron Microprobe Operator Name Role Phone Barbara Valentin DO Primary Care Provider [phone] Allergies Active Allergy Reactions Criticality Noted Date [...] One Pack) 3 MG/DOSE powder Inhale 1 [place] into affected nostril(s) each time if needed [...] Team Description 02/01/2024 Telephone [facility] [place] [address] [facility] [address] [place] [phone] Gabriel Hicks MD 01/23/2024 Documentation Only [facility] [place] [address] [facility] [address] [place] [phone] Ronnell Kirby 01/23/2024 Office Communication [facility] [place] [address] [facility] [address] [place] [phone] Ronnell Kirby from Last 3 Months Immunizations [...] LAB BLOOD ORDERAB LES Performing Organization Address City/[facility]/ZIP Co de Phone Number [place] * (ABNORMAL) Creatine (01/17/2024) Only the most recent of3 resultswithin the time period is included. Creatine, Serum 1.28(H) [place] GFR Calculated 47(L) [place] Blood (Blood, Venous) 01/17/2024 Historical Provider MD LAB BLOOD ORDERAB LES [place] * (ABNORMAL) Hemoglobin (01/15/2024) Hemoglobin 8.4(L) [...] BESSY from Last 3 Months Care Teams Electron Microprobe Operator Relationship Specialty Start Date End Date Barbara Valentin DO [address] [place] [address] PCP - General Family Medicine 09/22/23
--- OUTSIDE RECORDS SUMMARY | 2024-03-15 15:05 | XMS_ITS | Encounter Summary ---
Author Organization [facility] Address [address] [place] [address] Care Team Providers Care Landscape Architect And Planner Name Role Phone Barbara Valentin DO Primary Care Provider [phone] Encounter Details Date Type Department Care Team (Late st Contact Info) Description 01/23/2024 Documentation Only [facility] [place] [address] [place] [address] Ronnell Kirby [address] [place] [address] Social History Tobacco Use Types [...] LAB BLOOD ORDERAB LES Performing Organization Address [facility]/ZIP Co de Phone Number [place] * (ABNORMAL) Creatine (01/17/2024) Creatine, Serum 1.28(H) [place] GFR Calculated 47(L) [place] Blood (Blood, Venous) 01/17/2024 Historical Provider MD LAB BLOOD ORDERAB LES Performing Organization Address [facility]/State/ZIP Co de Phone Number [place] * (ABNORMAL) Creatine (01/16/2024) Creatine, Serum 1.28(H) [place] GFR Calculated 47(L) [place] Blood (Blood, Venous) 01/16/2024 Historical Provider MD LAB BLOOD ORDERAB LES Performing Organization Address [facility] Co de Phone Number [place] * (ABNORMAL) Creatine (01/15/2024) Creatine, Serum 1.71(H) [place] GFR Calculated 34(L) [place] Blood (Blood, Venous) 01/15/2024 Historical Provider MD LAB BLOOD ORDERAB LES Performing Organization Address [facility] Co de Phone Number [place] * (ABNORMAL) Hemoglobin (01/15/2024) Hemoglobin 8.4(L) g/dL [place] MCV 91.0 [place] Blood (Blood, Venous) 01/15/2024 Historical Provider MD LAB BLOOD ORDERAB LES Performing Organization Address [facility] Co de Phone Number [...] LAB BLOOD ORDERAB LES Performing Organization Address [facility] Co de Phone Number [place] * (ABNORMAL) CBC (01/14/2024) WBC 8.5 K/uL [place] Red Blood Cell Count 3.04(L) [place] Hemoglobin 8.9(L) g/dL [place] Hematocrit 27.5(L) % [place] MCV 91 [place] MCH 29.3 [place] MCHC 32.4 [place] RDW 14.4 [place] Platelet Count 198 [place] MPV 11.4(H) [place] Blood (Blood, Venous) 01/14/2024 Historical Provider MD LAB BLOOD ORDERAB LES Performing Organization Address [facility] Co de Phone Number [...] LAB BLOOD ORDERAB LES Performing Organization Address [facility] de Phone Number [place] [...] LAB BLOOD ORDERAB LES Performing Organization Address [facility] Co de Phone Number [place] * (ABNORMAL) Basic Metabolic Panel (BMP) (01/12/2024) Sodium 138 mEq/L [place] Potassium 5.1 mEq/L [place] Chloride 99 [place] Carbon Dioxide 19(L) mmol/L [place] Calcium 7.8(L) mg/dL [place] BUN 78(H) mg/dL [place] Creatinine 3.88(H) mg/dL [place] Glucose 690(Critic al Hig) mg/dL [place] eGFR 13(L) [place] Anion Gap 20(H) [place] 01/12/2024 Historical Provider LAB BLOOD ORDERAB LES [place] documented in this encounter Visit Diagnoses Not on filedocumented in this encounter Care Teams Landscape Architect And Planner Relationship Specialty Start Date End Date Barbara Valentin DO [address] [place] [address] PCP - General Family Medicine 09/22/23 documented as of this encounter
--- OUTSIDE RECORDS SUMMARY | 2024-03-15 15:05 | XMS_ITS | Encounter Summary ---
Author Organization [facility] [place] Address [address] [place] [address] Care Team Providers Care Director Of Head Start Name Role Phone Barbara Valentin DO Primary Care Provider [phone] Encounter Details Date Type Department Care Team (Late st Contact Info) Description 02/01/2024 Telephone [facility] [place] [address] [place] [address] Gabriel Hicks MD [address] [place] [address] Social History Tobacco Use Types [...] filedocumented in this encounter Care Teams Director Of Head Start Relationship Specialty Start Date End Date Barbara Valentin DO [address] [place] [address] PCP - General Family Medicine 09/22/23 documented as of this encounter
--- OUTSIDE RECORDS SUMMARY | 2024-03-15 15:06 | XMS_ITS | Clinical Summary ---
Author Organization [employer] [facility] Address [place], [place] [address] Care Team Providers Care Amr Physician Name Role Phone Julio Ibrahim MD Unavailable Chuy Doss MD Unavailable Markel Strong MD Unavailable Nikolai Ibarra MD Unavailable [phone] Barbara Valentni Patricia DO Primary Care Provider [phone] [facility], [facility] Unavailable Allergies Active Allergy Reactions Criticality Noted [...] ADMINISTERING INSULIN SUBCUTANEOUSLY AT HOME 100 Each 1 Active glucagon (Baqsimi) 3 mg/actuation nasal sprayIndications:p atient with diabetes mellitus at risk of hypoglycemia Inhale 1 Sheldon into affected nostril(s) each time if needed for Severe Hypoglycemia. Roll on side and call 911 after administration. 2 Each 2 Active fluticasone (50 mcg per actuation) nasal solution (FLONASE)Indicatio ns:Nasal congestion Inhale 1 Sheldon into affected nostril(s) once daily. Inhale 1 Sheldon in the nostril(s) once daily. 16 g 2 Active CPAPIndications:Se nolan obstructive sleep apnea CPAP [...] months, Frequency of use: Daily 1 Each 3 Active naloxone (NARCAN) 4 mg/actuation nasal sprayIndications:C hronic, continuous use of opioids INHALE 1 SPRAY INTO AFFECTED NOSTRIL(S) EACH TIME IF NEEDED FOR PATIENT DIFF TO AROUSE OR RESP RATE <8/MIN. ADD. DOSES MAY BE GIVEN EVERY 2-3 MIN. 2 Each 2 3 Active amLODIPine (NORVASC) 2.5 mg tabletIndications: Essential hypertension Take 1 Tablet (2.5 mg) by mouth two times daily. 180 Tablet 3 3 Active sennosides-docusat e (Stool Softener-Stimulant Laxat) (8.6-50 mg) tabletIndications: Chronic constipation TAKE TWO TABLETS BY MOUTH TWO TIMES DAILY NEEDED FOR CONSTIPATION. 360 Tablet 2 3 Active continuous glucose monitor READER (FreeStyle Elli 2 Walton)Indications :Type 1 diabetes mellitus with other specified complication (HC) To be used to read blood sugars per care services manager's directions. 1 Each 3 Active blood-glucose meterIndications:T ype 1 diabetes mellitus with other specified complication (HC) As directed. Dispense meter, test strips, lancets covered by pt ins. E10.9 IDDM type I - Test 4 times/day. Reason: Unstable diabetes 1 Each 3 Active blood sugar diagnostic (Blood Glucose Test) stripIndications:T ype 1 diabetes mellitus with other specified complication (HC) Test 4 times per day. 400 Each 3 3 Active lancetsIndications :Type 1 diabetes mellitus with other specified complication (HC) As directed. Test 4 times per day. 400 Each 3 3 Active torsemide (DEMADEX) 20 mg tabletIndications: Hyperkalemia,Local ized edema TAKE TWO TABLETS BY MOUTH (40MG) ONCE DAILY 60 Tablet 3 4 Active continuous glucose monitor SENSOR KIT (FreeStyle Elli 2 Sensor)Indications :Type 1 diabetes mellitus with other specified complication (HC) As directed. To be used to read blood sugars per care services manager's directions. 6 Each 3 4 Active omeprazole (PRILOSEC) 20 mg Delayed-Release capsuleIndications :Chronic GERD Take 1 Capsule (20 mg) by mouth once daily before a meal. 90 Capsule 1 4 Active polyethylene glycoL (MIRALAX) 17 gram/scoop powderIndications: Chronic constipation MIX 17GMS IN 8OZ LIQUID AND DRINK ONCE DAILY NEEDED FOR CONSTIPATION 238 g 2 4 Active metoprolol succinate (TOPROL XL) 25 mg Sustained-Release tabletIndications: HTN (hypertension) TAKE ONE TABLET (25 MG) BY MOUTH ONCE DAILY. 90 Tablet 2 4 Active atorvastatin (LIPITOR) 20 mg tabletIndications: Diabetes mellitus type 1 with complications (HC) Take 1 Tablet (20 mg) by mouth at bedtime. 90 Tablet 3 4 Active cyanocobalamin (VITAMIN B12) 1,000 mcg tabletIndications: B12 deficiency TAKE ONE TABLET BY MOUTH ONCE DAILY 90 Tablet 2 4 Active cholecalciferol (VITAMIN D3) 2,000 unit capsuleIndications :Vitamin D deficiency Take 1 Capsule (2,000 units) by mouth once daily. 90 Capsule 2 4 Active pen needle, diabetic (NovoFine Plus) 32 gauge x 1/6 ndleIndications:Di abetes mellitus type 1 with complications (HC) Inject subcutaneous. TO USE FOR INSULIN ADMINISTRATION FOUR TIMES DAILY 400 Each 3 4 Active levothyroxine (SYNTHROID) 125 mcg tabletIndications: Hypothyroidism (acquired) Take 1 Tablet (125 mcg) by mouth once daily. 90 Tablet 4 Active cetirizine (ZYRTEC) 5 mg tabletIndications: Wheezing Take 1 Tablet (5 mg) by mouth once daily. 90 Tablet 3 4 Active FLUoxetine (PROZAC) 10 mg capsuleIndications :Moderate episode of recurrent major depressive disorder (HC) TAKE 1 CAPSULE (10 MG) BY MOUTH ONCE DAILY. 60 Capsule 4 Active buprenorphine 5 mcg/hr (Butrans) 5 mcg/hour [...] Max acetaminophen dose: 4000mg in 24 hrs. 4 Active pregabalin (LYRICA) 100 mg capsuleIndications :Chronic pain syndrome Take 1 Capsule (100 mg) by mouth two times daily. 4 Active insulin glargine, U-100, (LANTUS) 100 unit/mL injectionIndicatio ns: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, macular edema presence unspecified, unspecified laterality, unspecified proliferative retinopathy type (HC) 20 units each morning 4 Active insulin lispro, U-100, (HumaLOG KwikPen Insulin) 100 unit/mL inpn penIndications:Ashly betes mellitus type 1 with complications (HC) 6-7 units with each meal , plus Corrective dose insulin as needed, up to 45 units / day 10 mL 3 4 Active DULoxetine (CYMBALTA) 60 mg Delayed-release capsuleIndications :Adjustment disorder with mixed anxiety and depressed mood,Chronic pain syndrome TAKE ONE CAPSULE BY MOUTH ONCE DAILY 60 Capsule 4 Active oxyCODONE (ROXICODONE) 5 mg immediate release tabletIndications: Chronic pain syndrome,Neuropath y due to secondary diabetes (HC) Si p.o. B.I.D. / PRN For O.A. pain or Diabetic P.N. Pain ; max: 2 a day. Use dates: 02/21/24-03/21/24 60 Tablet 4 Active naloxone (NARCAN) 4 mg/actuation nasal sprayIndications:C hronic, continuous use of opioids Inhale 1 Sheldon into affected nostril(s) each time if needed for Patient Diff To Arouse or Resp Rate < 8 / min. Additional doses may be given every 2 to 3 minutes until emergency medical assistance arrives. 2 Each 4 Active oxyCODONE (ROXICODONE) 5 mg immediate release tabletIndications: Chronic pain syndrome,Neuropath y due to secondary diabetes (HC) Si p.o. B.I.D. / PRN For O.A. pain or Diabetic P.N. Pain ; max: 2 a day. Use dates: 01/22/24-02/20/24 60 Tablet 4 02/16/20 Discontinu ed(Reorder (E-cancel not sent)) Active Problems Patient Care [...] Controlled substance agreement signed - 10/07/23 10/07/2023 Overview (10/07/2023): [facility] Noemí Claudioi .................... 10/07/2023 4:39 PM Type 1 diabetes mellitus with proliferative reti nopathy 11/23/2022 Depression, recurrent 08/24/2022 Hyperkalemia 08/13/2021 S/P gastric bypass 07/30/2021 Overview (07/30/2021): 2009 lab RNY CKD (chronic kidney disease) stage 4, GFR 15-29 ml/min 07/02/2021 Heart failure 05/07/2021 Urinary retention 03/12/2021 Closed fracture of femur 03/12/2021 Overview (03/12/2021): 11/19/2020 Opioid dependence, uncomplicated 03/12/2021 URIAH 08/21/1998 AHI-39 02/19/2019 Morbid obesity with BMI of 45.0-49.9, adult 06/03 Lactic acid acidosis 06/10/2017 Heel ulcer, right, with unspecified severity 02/2017 Foot drop, bilateral 07/23/2015 Type 1 diabetes mellitus with other specified co mplication 07/23/2015 Overview (03/12/2021): Complicated with retinopathy, chronic kidney disease, neuropathy Multiple hospitalizations for labile diabetes and hypoxia which led to extended stay in longterm care 07/2015- 05/2017 Hospitalized with ketoacidosis 06/2017 Spinal cord lesion 07/18/2015 Overview (03/11/2022): MRI 07/2015: Stable central T2 cord signal abnormality at T1-T3 without abnormal gadolinium enhancement.?? This appears relatively stable from the MRI 02/2013 and is likely due to prior infectious/inflammatory/ischemic etiologies. Findings not typical for demyelinating disease. Neoplasm unlikely considering stability. Recommend continued interval followup to document stability. Anticoagulation monitoring, special range 2014 Osteoarthritis of [facility] joints 10/25/2012 Overview (10/25/2012): Vitamin B12 deficiency 08/03/2012 Pain medication agreement [...] (DVT) of right peroneal vein 03/12/2021 09/21/2023 Overview (03/12/2021): Diagnosed 02/2021 - xarelto for 3 months Acute hypercapnic respiratory failure 01/02/2019 01/18/2022 FIORELLA (acute kidney injury) 06/10/2017 Diabetic ketoacidosis withou t coma associated with type 1 diabetes mellitus 06/10/2017 03/12/2021 Transient alteration of awareness 07/19/2015 06/10/2017 Leukopenia 07/19/2015 06/10/2017 Overview (07/21/2015): Absolute neutropenia noted on Differential on 07/21/2015 Weakness 07/18/2015 06/10/2017 Hypothyroid 07/18/2015 06/10/2017 Status post total right knee replacement 01/02/2015 06/10/2017 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 11/27/2013 12/28/2013 Anticoagulation [...] airway obstruction, not elsewhere classified 12/20/2007 03/10/2011 Overview (12/20/2007): Second hand smoke Stage 3b chronic kidney disease 09/09/2006 08/13/2021 Headache(784.0) 09/09/2006 06/10/2017 Controlled type 1 diabetes john mensah with stage 1 chronic kidney disease 05/25/2002 7 Encounters Date Type Department Care Team Description 03/14/2024 10:30 AM CDT Home Care Visit [facility] [address] [place] [phone] Geneva Sanchez RN SN - OASIS DISCHARGE 03/12/2024 [address] [facility] [address] [facility] [place] [address] Barbara Valentin, DO Refill Request (Pregabalin, Fluoxetine, Duloxetine) 03/06/2024 10:00 AM CDT Home Care Visit [facility] [address] [place] [phone] Geneva Sanchez, LOS SN - HOME VISIT 03/06/2024 9:15 AM CDT Home Care Visit [address] [address] Alex Contreras SEWING MACHINE OPERATOR ZIPPER - HOME VISIT 03/03/2024 Home Care Visit [address] [address] Nitza Riojas LISW CARE COORDINATION 02/28/2024 2:00 PM CDT Home Care Visit [place] [id number] [place] [phone] Shania Elaine RN SN - HOME VISIT 02/28/2024 10:45 AM CDT Home Care Visit [address] [address] Fabiola Mathis SEWING MACHINE OPERATOR ZIPPER - HOME VISIT 02/25/2024 Home Care Visit [address] [address] Nitza Riojas LISW CARE COORDINATION 02/22/2024 3:00 PM CDT Home Care Visit [address] [address] Trini Hitchcock RN SN - HOME VISIT 02/22/2024 Home Care Visit [place] [id number] [place] [phone] Dar Phillips, OT OT - DISCIPLINE DISCHARGE 02/21/2024 9:45 AM CDT Home Care Visit [address] [place] [address] Alex Contreras SEWING MACHINE OPERATOR ZIPPER - HOME VISIT 02/20/2024 Home Care Visit [facility] [address] [place] [phone] Nitza Riojas LISW OCCUPATIONAL THERAPY CO DIRECTOR - INITIAL ASSESSMENT 02/16/[address] [facility] [address] [place] [address] Toshia Hooks NP Refill Request (oxyCODONE (ROXICODONE) 5 mg immediate release tablet ) 02/15/2024 3:45 PM CDT Home Care Visit [facility] [address] [place] [phone] Coleman Greene, PT PT - DISCIPLINE DISCHARGE 02/15/2024 11:00 AM CDT Home Care Visit [address] [address] Geneva Sanchez, LOS SN - HOME VISIT 02/14/2024 12:00 PM CDT Home Care Visit [place] [id number] [place] [phone] Joi Moreno VARELA OT - HOME VISIT 02/14/2024 8:15 AM CDT Home Care Visit [address] [address] Fabiola Mathis SEWING MACHINE OPERATOR ZIPPER - HOME VISIT 02/10/2024 3:30 PM CDT Home Care Visit [address] [address] Joi Moreno VARELA OT - HOME VISIT 02/10/2024 Home Care Visit [address] [address] Nitza Riojas LISW OCCUPATIONAL THERAPY CO DIRECTOR - CASE COMMUNICATION 02/09/2024 Refill [facility] [address] [place] [address] Shaqra, Barbara Patricia, DO Refill Request (Duloxetine) 02/08/2024 3:00 PM CDT Home Care Visit [facility] [address] [place] [address] Veda Resendiz, RN SN - WOUND/OSTOMY CHART CONSULT 02/08/2024 9:00 AM CDT Home Care Visit [facility] [address] [place] [address] Geneva Sanchez, LOS SN - HOME VISIT 02/08/2024 Telephone [facility] [address] [place] [address] Barbara Valentin, DO Pharmacist Medication Management (MEDICATION CHANGE) 02/08/2024 Telephone [facility] [address], [place] [address] Geneva Sanchez, allergy specialist List Update 02/07/2024 4:00 PM CDT Home Care Visit [facility] [address] [place] [address] Joi Moreno COTA OT - HOME VISIT 02/07/2024 9:30 AM CDT Home Care Visit [facility] [address] [place] [address] Kendal Serna, PT PT - HOME VISIT 02/07/2024 Telephone [facility] [address] [place] [address] Barbara Valentin, DO Refill Request (Insulin lispro pens) 02/04/2024 Refill [facility] [address] [place] [address] Barbara Valentin Patricia, DO Refill Request (Insulin Lispro) 02/03/2024 9:00 AM CDT Home Care Visit [facility] [address] [place] [address] Joi Moreno VARELA OT - HOME VISIT 02/02/2024 11:00 AM CDT Home Care Visit [facility] [address] [place] [address] Kendal Serna, PT PT - HOME VISIT 02/01/2024 4:00 PM CDT Home Care Visit [facility] [address] [facility] [address] Joi Moreno COTA OT - HOME VISIT 01/31/2024 9:30 AM CDT Home Care Visit [facility] [address] [facility] [address] Fabiola Mathis SEWING MACHINE OPERATOR ZIPPER - HOME VISIT 01/31/2024 Home Care Visit [facility] [address] [place] [address], [place] [address] Oumou Burns, RN CARE COORDINATION 01/31/2024 Home Care Visit [facility] [address] [place] [phone] Oumou Burns, LOS CARE COORDINATION 01/30/2024 10:45 AM CDT Home Care Visit [facility] [address] [place] [address], [place] [address] Kendal Serna, PT PT - HOME VISIT 01/30/2024 9:00 AM CDT Home Care Visit [facility] [address] [place] [address], [place] [address] Geneva Sanchez, RN SN - INITIAL ASSESSMENT 01/25/2024 1:30 PM CDT Home Care Visit [facility] [address] [place] [address], [place] [address] Coleman Greene, PT PT - HOME VISIT 01/25/2024 Travel 01/24/2024 1:00 PM CDT Home Care Visit [facility] [address] [place] [address], [place] [address] Dar Phillips OT OT - INITIAL ASSESSMENT 01/24/2024 9:30 AM CDT Home Care Visit [facility] [address] [place] [phone] Fabiola Mathis SEWING MACHINE OPERATOR ZIPPER - HOME VISIT 01/24/2024 Home Care Visit [facility] [address] [place] [address] Narcisa Atkinson, RN CARE COORDINATION 01/23/2024 Home Care Visit [facility] [address] [place] [address] Narcisa Atkinson, RN CARE COORDINATION 01/20/2024 Refill [facility] [address] [place] [address] Toshia Hooks NP Refill Request 01/18/2024 1:45 PM CDT Home Care Visit [facility] [address] [place] [address] Kendal Serna, PT PT - OASIS START OF CARE 01/18/2024 10:30 AM CDT Phone Office Visit [facility] [address] [facility] [address] [place] [address] Nikolai Ibarra MD 01/18/2024 Plan of Care Documentation [facility] [address] [place] [address] 01/18/2024 Patient Outreach [facility] [address] [place] [address] Maria R Ho, RN Primary RN Care Management; Hospital F/U (Lace 44) 01/18/2024 Travel 01/12/2024 9:13 PM CDT - 01/17/2024 5:23 PM CDT Hospital Encounter [facility] [address] [place] [address] Emily Guzman MD Litell, DO Chente Honeycutt, MD Dusty Manjarrez, MD Ricky Alston, Helder Hoover MD [facility] Hospitalists Of Opioid dependence, uncomplicated (HC) (Primary Dx); Nasal congestion; Chronic pain syndrome; Diabetic ketoacidosis without coma associated with type 1 diabetes mellitus (HC); 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, macular edema presence unspecified, unspecified laterality, unspecified proliferative retinopathy type (HC); Heel ulcer, right, with unspecified severity (HC) Discharge Disposition: Home Health 01/09/2024 Refill [facility] [address] [place] [address] Barbara Valentin Patricia, DO Refill Request (Fluoxetine) 01/09/2024 Refill [facility] [address] [place] [address] Elian Humphrey MD Refill Request (Torsemide) 01/06/2024 4:00 PM CDT Office Visit [facility] [address] [place] [address] Toshia Hooks NP Follow Up; Pain (Multi source; was told by her Trim Crew Supervisor she can ot use OTC Voltaren gel., which had been helping her O.A. pain (hands; wrists; shoulders; ) ) 01/06/2024 Travel 01/02/[address] [address] Barbara Valentin Patricia, DO Follow Up 12/27/[address] [address] Barbara Valentin Patricia, DO Refill Request (Pregabalin, Cetirizine) 12/23/2023 2:35 PM CDT Office Visit [address] [address] Barbara Valentin, DO Diabetes (3 month check, labs); Rash (Rash under breasts? ) 12/23/2023 Travel 12/20/[address] [address] Barbara Valentin Patricia, DO Refill Request (Humalog Kwikpen Insulin) 12/16/[address] [facility] [address] [place] [address] Toshia Hooks NP Refill Request (Patient son called requesting oxycodone 5 mg at [facility].////) 12/15/2023 Telephone [facility] [address] [place], [place] [address] Barbara Valentin, DO Lab from Last 3 Months Immunizations Name Administration [...] Sign Reading Time Taken Comments Blood Pressure 132/65 03/14/2024 10:45 AM CDT Pulse 76 03/14/2024 10:45 AM CDT Temperature 36.6 ??C (97.9 ??F) 03/14/2024 1 0:45 AM CDT Respiratory Rate 18 03/14/2024 10:4 5 AM CDT Oxygen Saturation 90% 03/14/2024 10: 45 AM CDT Inhaled Oxygen Concentration - - Weight 102.3 kg (225 lb 9.6 oz) 01/16/2024 6:48 AM CDT Height 152.4 cm (5') 01/12/2024 9:27 PM CDT Body Mass Index 44.06 01/12/2024 9:27 PM CDT Plan of Treatment Upcoming Encounters Date Type Department Care Team (Late st Contact Info) Description 03/26/2024 3:25 PM CDT Office Visit [facility] [address] [place] [place] [address] Barbara Valentin, DO [address] [facility] [address] 05/04/2024 3:30 PM CDT Phone Office Visit [facility] [address] [place] [address] Nikolai Ibarra MD [address] [place] [address] Health Maintenance Due Date Last Done Comments Zoster (shingles) series for age 50+ (1 of 2) 12/19/2011 Pap test for age 21-65 08/17/2015 08/17/2012, 2010 Tetanus booster 08/25/2020 08/25/2010, 12/04, 12/30/2002 Mammogram for age 45-75 04/28/2023 04/28/20, 03/02/2018, 07/26/2013, Additional history exists Depression screening for age 12+ 08/17/2023 08/17/2022, 08/17/2019, 08/17/2019, Additional history exists COVID-19 vaccine series (2022- season) 2024 04/28/2022, 06/23/2021, 09/24/2020 Influenza for age 50-64 03/04/2024 04/28/20, 04/28/2021, 03/18/2020, Additional history exists Fecal testing sDNA-FIT ([place] guard) for age 45-75 11/10/2024 11/10/2021 Pneumococcal series for age 6-64 (3 of 3 - PPSV23 or PCV20) 2026 08/17/2016, 08/14/2014, 07/04/2005, Additional history exists Lipids for age 45-75 04/28/2027 04/28/2022, 08/17/2019, 08/31/2018, Additional history exists Tdap Completed 08/25/2010 HIV for age 15-65 Completed 07/21/2015 Hepatitis C screening for ag e 18-79 Completed 02/16/2018 Medical Devices Implanted Type Area Aquaculture Worker Device Identifier Shelf Expiration Date Model / Serial / Lot [id number] 2x12mm [[id number]] Implanted:Qty: 1 on 08/08/2008 at [facility] Explanted:at [facility] (Quantity not on file) [facility] [id number]# / [id number] / Stem Compnt Primary 8mm Mini - [id number] Implanted:Qty: 1 on 03/17/2011 at [facility] Right: Shoulder BIOMET [id number]# / / [id number] Head Hum Bio-Mod [id number] - [id number] Implanted:Qty: 1 on 03/17/2011 at [facility] Right: Shoulder BIOMET [id number]# / / [id number] Base Glenoid Hybrid 4mm Sm - [id number] Implanted:Qty: 1 on 03/17/2011 at [facility] Right: Shoulder BIOMET [id number]# / / [id number] Cmnt 1/2 Dose[employer]medica - [id number] Implanted:Qty: 1 on 03/17/2011 at [facility] Right: Shoulder [employer] 6188-- 0# / / [id number] Post Glenoid Hybrid Regenerex - [id number] Implanted:Qty: 1 on 03/17/2011 at [facility] Right: Shoulder BIOMET [id number] # / / [id number] Head Humeral 44x15 Co Cr Biomodular - [id number] Implanted:Qty: 1 on 07/12/2012 at [facility] Left: Shoulder BIOMET [id number]# / / [id number] Shoulder Stem Implanted:Qty: 1 on 07/12/2012 at [facility] Left: Shoulder [id number] / / [id number] Description:SHOULDER STEM Cmnt Bone 1/2 Dosehowmedica - [id number] Implanted:Qty: 1 on 07/12/2012 at [facility] Left: Shoulder [employer] 6188-1- 0# / / [id number] Post Glenoid Hybrid Regenerex - [id number] Implanted:Qty: 1 on 07/12/2012 at [facility] Left: Shoulder BIOMET [id number] # / / [id number] Base Glenoid Hybrid 4mm Sm - [id number] Implanted:Qty: 1 on 07/12/2012 at [facility] Left: Shoulder BIOMET [id number]# / / [id number] Procedures Procedure Name Priority Date/Time Associated Diagnosis [...] HIV 1/2 Add On 07/21/2015 9:40 AM CONCRETE LAYER HULL BUILDER THIN PREP PAP SCREEN IMAGED Routine 08/17/2012 4:02 PM CONCRETE LAYER Screening for malignant neoplasm of the cervix [...] - 100 mg/dL 01/17/2024 11:35 AM CDT [facility] Blood BLOOD SPECIMEN / Unknown 01/17/2024 11:27 AM CDT 01/17/2024 11:35 AM CDT Helder García MD CHEMISTRY [facility] [employer] [facility] [address] [place] [address], * (ABNORMAL) CREATININE (01/17/2024 8:20 AM CDT) Only the most recent of3 resultswithin the time period is included. eGFR 47(L) >90 mL/min/1.7 3m2 01/17/2024 9:06 AM CDT [facility] Comment:As of 2021, eG FR is calculated by the CKD-EPI creatinine equation without race adjustment. ??eGFR can be influenced by muscle mass, exercise, and diet. ??The reported eGFR is an estimation only and is only applicable if the renal function is stable. CREATININE 1.28(H) 0.50 - 0.90 mg/dL 01/17/2024 9:06 AM CDT [facility] Blood BLOOD SPECIMEN / Unknown Non-Lab Venipuncture / Unknown 01/17/2024 8:20 AM CDT 01/17/2024 8:26 AM CDT Helder García MD CHEMISTRY Performing Organization Address [facility]/ZIP Co de Phone Number [facility] [address] [place] [address], * PHOSPHORUS (01/17/2024 8:20 AM CDT) Only the most recent of5 resultswithin the time period is included. PHOSPHORUS 2.6 2.5 - 4.5 mg/dL 01/17/2024 9:06 AM CDT [facility] Blood BLOOD SPECIMEN / Unknown Non-Lab Venipuncture / Unknown 01/17/2024 8:20 AM CDT 01/17/2024 8:26 AM CDT Sarah Betancourt RN CHEMISTRY Performing Organization Address [facility] de Phone Number [facility] [address] [place] [address], * (ABNORMAL) BASIC METABOLIC PANEL (01/17/2024 8:20 AM CDT) Only the most recent of5 resultswithin the time period is included. SODIUM 139 136 - 145 mmol/L 01/17/2024 12:35 PM CDT [facility] POTASSIUM 3.9 3.5 - 5.1 mmol/L 01/17/2024 12:35 PM CDT [facility] CHLORIDE 103 98 - 107 mmol/L 01/17/2024 12:35 PM CDT [facility] CO2,TOTAL 24 22 - 29 mmol/L 01/17/2024 12:35 PM CDT [facility] ANION GAP 12 5 - 18 01/17/2024 12:35 PM CDT [facility] GLUCOSE 162(H) 70 - 99 mg/dL 01/17/2024 12:35 PM CDT [facility] CALCIUM 8.7(L) 8.8 - 10.2 mg/dL 01/17/2024 12:35 PM CDT [facility] BUN 17 8 - 23 mg/dL 01/17/2024 12:35 PM CDT [facility] CREATININE 1.31(H) 0.50 - 0.90 mg/dL 01/17/2024 12:35 PM CDT [facility] BUN/CREAT RATIO 13 10 - 20 12:35 PM CDT [facility] eGFR 46(L) >90 mL/min/1.7 3m2 01/17/2024 12:35 PM CDT [facility] Comment: As of 2021, [...] 8:26 AM CDT Helder García MD CHEMISTRY [facility] [address] [place] [address], * CLOSTRIDIOIDES DIFFICILE TOXIN PCR (01/16/2024 12:27 PM CDT) CLOSTRIDIUM DIFFICILE PCR Negative 01/16/2024 2:18 PM CDT [facility] PRESUMPTIVE NAP1 STRAIN Negative 01/16/2024 2:18 PM CDT [facility] Stool STOOL SPECIMEN / Unknown Non-Blood / Unknown 01/16/2024 12:27 PM CDT 01/16/2024 12:51 PM CDT Narrative [facility] - 01/16/2024 2:18 PM CDT The NAP1 (027 or BI) strain is a hypervirulent strain. Detection may be useful for epidemiological purposes. Helder García MD MICROBIOLOGY Performing Organization Address [facility] Co de Phone Number [facility] [address] [place] [address], * SCAN CORRESP-EKG RESULTS (01/16/2024 9:07 AM CDT) Narrative 01/16/2024 9:07 AM CDT Ordered by an unspecified provider. Other Clinical Staff OTHER * (ABNORMAL) HEMOGLOBIN (01/16/2024 6:30 AM CDT) Only the most recent of2 resultswithin the time period is included. HEMOGLOBIN 8.9(L) 12.0 - 16.0 g/dL 01/16/2024 7:13 AM CDT [facility] MCV 91 80 - 100 fL 01/16/2024 7:13 AM CDT [facility] Blood BLOOD SPECIMEN / Unknown Venipuncture / Unknown 01/16/2024 6:30 AM CDT 01/16/2024 6:58 AM CDT Fabrizio Montano MD HEMATOLOGY Performing Organization Address [facility] Co de Phone Number [facility] [address] [place] [address], * VANCOMYCIN (01/16/2024 6:30 AM CDT) Only the most recent of3 resultswithin the time period is included. VANCOMYCIN 13.0 ug/mL 01/16/2024 7:42 AM CDT [facility] Comment:No Reference Range D efined. DATE OF LAST DOSE,RANDOM Not Given 01/16/2024 7:42 AM CDT [facility] TIME OF LAST DOSE,RANDOM Not Given 01/16/2024 7:42 AM CDT [facility] Blood BLOOD SPECIMEN / Unknown Venipuncture / Unknown 01/16/2024 6:30 AM CDT 01/16/2024 6:58 AM CDT Barbara Holcomb NP CHEMISTRY [facility] [address] [address], [place] * (ABNORMAL) PLATELET COUNT (01/15/2024 6:02 AM CDT) PLATELET COUNT 166 140 - 440 thou/cu mm 01/15/2024 6:44 AM CDT [facility] MPV 11.2(H) 6.5 - 11.0 fL 01/15/2024 6:44 AM CDT [facility] Blood BLOOD SPECIMEN / Unknown Venipuncture / Unknown 01/15/2024 6:02 AM CDT 01/15/2024 6:26 AM CDT Fabrizio Montano MD HEMATOLOGY Performing Organization Address City/[facility] Co de Phone Number [facility] [address] [place] [address], [place] * WHITE BLOOD COUNT (01/15/2024 6:02 AM CDT) WHITE BLOOD COUNT 4.9 4.5 - 11.0 thou/cu mm 01/15/2024 6:44 AM CDT [facility] NRBC 0.0 % 01/15/2024 6:44 AM CDT [facility] ABS NRBC 0.0 thou /cu mm 01/15/2024 6:44 AM CDT [facility] Blood BLOOD SPECIMEN / Unknown Venipuncture / Unknown 01/15/2024 6:02 AM CDT 01/15/2024 6:26 AM CDT Fabrizio Montano MD HEMATOLOGY Performing Organization Address City/[facility]/ZIP Co de Phone Number [facility] [address] [place] [phone], [place] * Sodium AM (01/15/2024 6:02 AM CDT) SODIUM 142 136 - 145 mmol/L 01/15/2024 7:13 AM CDT [facility] Blood BLOOD SPECIMEN / Unknown Venipuncture / Unknown 01/15/2024 6:02 AM CDT 01/15/2024 6:27 AM CDT Fabrizio Montano MD CHEMISTRY Performing Organization Address City/[facility]/ZIP Co de Phone Number [facility] [address] [phone], [place] * Potassium AM (01/15/2024 6:02 AM CDT) Only the most recent of3 resultswithin the time period is included. POTASSIUM 4.4 3.5 - 5.1 mmol/L 01/15/2024 7:13 AM CDT [facility] Blood BLOOD SPECIMEN / Unknown Venipuncture / Unknown 01/15/2024 6:02 AM CDT 01/15/2024 6:27 AM CDT Fabrizio Montano MD CHEMISTRY Performing Organization Address City/[facility]/ZIP Co de Phone Number [facility] [address] [place] [address], [place] * SCAN-CARDIAC STRIP (01/14/2024 7:07 AM CDT) Scanner OTHER * (ABNORMAL) CBC W PLT NO DIFF (01/14/2024 5:28 AM CDT) WHITE BLOOD COUNT 8.5 4.5 - 11.0 thou/cu mm 01/14/2024 6:33 AM CDT [facility] RED BLOOD COUNT 3.04(L) 4.00 - 5.20 mil/cu mm 01/14/2024 6:33 AM CDT [facility] HEMOGLOBIN 8.9(L) 12.0 - 16.0 g/dL 01/14/2024 6:33 AM CDT [facility] HEMATOCRIT 27.5(L) 33.0 - 51.0 % 01/14/2024 6:33 AM CDT [facility] MCV 91 80 - 100 fL 01/14/2024 6:33 AM CDT [facility] MCH 29.3 26.0 - 34.0 pg 01/14/2024 6:33 AM CDT [facility] MCHC 32.4 32.0 - 36.0 g/dL 01/14/2024 6:33 AM CDT [facility] RDW 14.4 11.5 - 15.5 % 01/14/2024 6:33 AM CDT [facility] PLATELET COUNT 198 140 - 440 thou/cu mm 01/14/2024 6:33 AM CDT [facility] MPV 11.4(H) 6.5 - 11.0 fL 01/14/2024 6:33 AM CDT [facility] NRBC 0.0 % 01/14/2024 6:33 AM CDT [facility] ABS NRBC 0.0 thou /cu mm 01/14/2024 6:33 AM CDT [facility] Blood BLOOD SPECIMEN / Unknown Non-Lab Venipuncture / Unknown 01/14/2024 5:28 AM CDT 01/14/2024 6:31 AM CDT Barbara Holcomb NP HEMATOLOGY [facility] [address] [place] [address], * (ABNORMAL) CALCIUM IONIZED HOSPITAL DRAW ONLY (01/14/2024 5:28 AM CDT) Only the most recent of3 resultswithin the time period is included. CALCIUM,IONIZE D 1.30(H) 1.15 - 1.27 mmol/L 01/14/2024 6:03 AM CDT [facility] Blood BLOOD SPECIMEN / Unknown Non-Lab Venipuncture / Unknown 01/14/2024 5:28 AM CDT 01/14/2024 5:49 AM CDT Grace Eldridge MD CHEMISTRY [facility]AL [facility] [address] [place] [address], * ECHO TTE COMPLETE W CONTRAST (01/13/2024 3:56 PM CDT) AORTIC VALVE MEAN PG 7 mmHg EJECTION FRACTION 64 % LVEDD 4.1 cm EJECTION FRACTION 60 - 65% Anatomical Region Laterality Modality Ultrasound 01/13/2024 2:53 PM CDT Narrative 01/13/2024 4:39 PM CDT ECHOCARDIOGRAM MIKAYLA KUHN ? Accession#: ?? [id number] : ?1960 63 years Study Date: ?? 01/13/2024 2:53:14 PM Gender: F ?BP: ? 114/44 mmHg Height: 152.00 cm ?BSA: ?1.93 m? ? ? Weight: 98.00 kg ? Tech: ? KBA ? Referring MD: BARBARA HOLCOMB Site: ? [facility] Reading Location: [facility] Patient Location: [...] diluted Definity, lot #[id number], [facility]# [id number] was administered peripherally to enhance visualization of all left ventricular segments. . This study was interpreted by an [facility] accredited facility. ??Final ?? Procedure Note Travon Blood MD - 01/13/2024 ECHOCARDIOGRAM MIKAYLA KUHN : 1960 63 years Study Date: 01/13/2024 2:53:14 PM Gender: F BP: 114/44 mmHg Height: 152.00 cm BSA: 1.93 m? ? ? Weight: 98.00 kg Tech: PASQUALE Referring MD: BARBARA HOLCOMB Site: [facility] Reading Location: [facility] Patient Location: Inpatient. Procedure: 2D w/ Contrast, [...] diluted Definity, lot #[id number], [facility]#[id number] was administered peripherally to enhance visualization of allleft ventricular segments. . This study was interpreted by an [facility] accredited facility. Final Barbara Holcomb ASSEMBLER ADJUSTER ECHO ORD * US ARTERIAL LOWER EXTREMITY [...] 125 mmHg Left Brachial: 111 mmHg Right FINANCIAL SPECIALIST: Noncompressible Right DPA: 115 mmHg (SAMUEL 0.92) Left FINANCIAL SPECIALIST: Noncompressible Left DPA: Noncompressible SAMUEL: 1.0-1.4 - normal 0.9-0.99 - borderline 0.80-0.89 - mild 0.50-0.79 - moderate 0.30-0.49 - severe < 0.30 - critical RIGHT: PROGRAM PRODUCTION SPECIALIST PROX: 204 cm/sec; triphasic waveforms PROGRAM PRODUCTION SPECIALIST DIST: 138 cm/sec; triphasic waveforms PFA: 97 cm/sec; triphasic waveforms SFA PROX: 140, 111 cm/sec; triphasic waveforms SFA MID: 113, 74 cm/sec; triphasic waveforms SFA DIST: 107, 113 cm/sec; triphasic waveforms POP PROX: 105 cm/sec; triphasic waveforms POP DIST: 89 cm/sec; triphasic waveforms FINANCIAL SPECIALIST: 32 cm/sec; triphasic waveforms KAITLYN: 58 cm/sec; triphasic waveforms DPA: 56 cm/sec; triphasic waveforms LEFT: PROGRAM PRODUCTION SPECIALIST PROX: 193 cm/sec; triphasic waveforms PROGRAM PRODUCTION SPECIALIST DIST: 152 cm/sec; triphasic waveforms PFA: 98 cm/sec; triphasic waveforms SFA PROX: 119, 109 cm/sec; triphasic waveforms SFA MID: 103, 102 cm/sec; triphasic waveforms SFA DIST: 103, 100 cm/sec; triphasic waveforms POP PROX: 124 cm/sec; triphasic waveforms POP DIST: 85 cm/sec; triphasic waveforms FINANCIAL SPECIALIST: 169 cm/sec; triphasic waveforms KAITLYN: 91 cm/sec; [...] 125 mmHg Left Brachial: 111 mmHg Right FINANCIAL SPECIALIST: Noncompressible Right DPA: 115 mmHg (SAMUEL 0.92) Left FINANCIAL SPECIALIST: Noncompressible Left DPA: Noncompressible SAMUEL: 1.0-1.4 - normal 0.9-0.99 - borderline 0.80-0.89 - mild 0.50-0.79 - moderate 0.30-0.49 - severe < 0.30 - critical RIGHT: PROGRAM PRODUCTION SPECIALIST PROX: 204 cm/sec; triphasic waveforms PROGRAM PRODUCTION SPECIALIST DIST: 138 cm/sec; triphasic waveforms PFA: 97 cm/sec; triphasic waveforms SFA PROX: 140, 111 cm/sec; triphasic waveforms SFA MID: 113, 74 cm/sec; triphasic waveforms SFA DIST: 107, 113 cm/sec; triphasic waveforms POP PROX: 105 cm/sec; triphasic waveforms POP DIST: 89 cm/sec; triphasic waveforms FINANCIAL SPECIALIST: 32 cm/sec; triphasic waveforms KAITLYN: 58 cm/sec; triphasic waveforms DPA: 56 cm/sec; triphasic waveforms LEFT: PROGRAM PRODUCTION SPECIALIST PROX: 193 cm/sec; triphasic waveforms PROGRAM PRODUCTION SPECIALIST DIST: 152 cm/sec; triphasic waveforms PFA: 98 cm/sec; triphasic waveforms SFA PROX: 119, 109 cm/sec; triphasic waveforms SFA MID: 103, 102 cm/sec; triphasic waveforms SFA DIST: 103, 100 cm/sec; triphasic waveforms POP PROX: 124 cm/sec; triphasic waveforms POP DIST: 85 cm/sec; triphasic waveforms FINANCIAL SPECIALIST: 169 cm/sec; triphasic waveforms KAITLYN: 91 cm/sec; [...] 01/14/2024 2:34:58 AM (Electronically Signed) Barbara Holcomb ASSEMBLER ADJUSTER US * XR FOOT 3 VIEWS LEFT [...] CDT) CULTURE RESULT(A) 01/16/2024 2:44 PM CDT [facility] NTRAL LABORATORY CULTURE 3+ Corynebacterium striatum 01/16/2024 2:44 PM CDT [facility] N[facility]AL LAB[facility] CULTURE 2+ Mixed oni present 01/16/2024 2:44 PM CDT [facility] GRAM STAIN No PMNs 01/16/2024 2:44 PM CDT [facility] GRAM STAIN 2+ RBCs 01/16/2024 2:44 PM CDT [facility] GRAM STAIN No Epithelial cells 01/15 2:44 PM CDT [facility] GRAM STAIN 2+ Gram Positive Bacilli 01/16/2024 2:44 PM CDT [facility] Other (Other) Non-Blood / Unknown 01/13/2024 11:49 AM CDT 01/13/2024 12:00 PM CDT Narrative [facility] - 01/16/2024 2:44 PM CDT Mixed oni; No Staphylococcus aureus, beta-Streptococcus, Streptococcus pneumoniae, or Pseudomonas aeruginosa isolated. Freya Schafer NP MICROBIOLOGY Performing Organization Address City/[facility]/ZIP Co de Phone Number [facility] [address] [place] [address], * ANAEROBIC CULTURE (01/13/2024 11:49 AM CDT) CULTURE No anaerobes isolated 01/19/2024 10:01 AM CDT [facility] Other (Other) Non-Blood / Unknown 01/13/2024 11:49 AM CDT 01/13/2024 12:00 PM CDT Freya Schafer NP MICROBIOLOGY Performing Organization Address City/[facility]/ZIP Co de Phone Number [facility] [address] [place] [address], * (ABNORMAL) Electrolytes Panel - DKA (01/13/2024 10:53 AM CDT) Only the most recent of3 resultswithin the time period is included. SODIUM 140 136 - 145 mmol/L 01/13/2024 11:36 AM CDT [facility] POTASSIUM 5.2(H) 3.5 - 5.1 mmol/L 01/13/2024 11:36 AM CDT [facility] CHLORIDE 107 98 - 107 mmol/L 01/13/2024 11:36 AM CDT [facility] CO2,TOTAL 21(L) 22 - 29 mmol/L 01/13/2024 11:36 AM CDT [facility] ANION GAP 12 5 - 18 01/13/2024 11:36 AM CDT [facility] Blood BLOOD SPECIMEN / Unknown Non-Lab Venipuncture / Unknown 01/13/2024 10:53 AM CDT 01/13/2024 11:01 AM CDT Ifeanyi Hernández RN CHEMISTRY Performing Organization Address [facility] Co de Phone Number [facility] [address] [place] [address], [place] * SCAN-CARDIAC STRIP (01/13/2024 8:00 AM CDT) Scanner OTHER * MAGNESIUM (01/13/2024 4:22 AM CDT) Only the most recent of2 resultswithin the time period is included. MAGNESIUM 1.9 1.6 - 2.4 mg/dL 01/13/2024 5:07 AM CDT [facility] Blood BLOOD SPECIMEN / Unknown Non-Lab Venipuncture / Unknown 01/13/2024 4:22 AM CDT 01/13/2024 4:41 AM CDT Ifeanyi Hernández RN CHEMISTRY Performing Organization Address [facility] Co de Phone Number [facility] [address] [place] [phone], * (ABNORMAL) Serum Glucose - DKA (01/13/2024 1:52 AM CDT) Only the most recent of2 resultswithin the time period is included. GLUCOSE,RANDOM 459(H) 70 - 139 mg/dL 01/13/2024 2:46 AM CDT [facility] Blood BLOOD SPECIMEN / Unknown Non-Lab Venipuncture / Unknown 01/13/2024 1:52 AM CDT 01/13/2024 2:03 AM CDT Emily Guzman MD CHEMISTRY [facility] [address] [place] [address], [place] * (ABNORMAL) TROPONIN T (HS) ONE TIME (01/12/2024 11:39 PM CDT) Pathologist [facility] TROPONIN T HS 45(H) 6-10 ng/L ng/L 01/13/2024 12:22 AM CDT [facility] Blood BLOOD SPECIMEN / Unknown Non-Lab Venipuncture / Unknown 01/12/2024 11:39 PM CDT 01/12/2024 11:45 PM CDT Emily Guzman MD CHEMISTRY Performing Organization Address [facility] Co de Phone Number [facility] [address] [place] [phone], [place] * 12 Lead EKG (01/12/2024 10:16 PM CDT) Pathologist [facility] Interpretation Normal sinus rhythm Left axis deviation Abnormal ECG When compared with ECG of 02-Jan-2019 02:01, Nonspecific T wave abnormality now evident in Lateral leads BEYOND NOW Ventricular Rate 78 BPM BEYOND NOW Atrial Rate 78 BPM BEYOND NOW P-R Interval 160 ms BEYOND NOW QRS Duration 82 ms BEYOND NOW QT 400 ms BEYOND NOW QTc 456 ms BEYOND NOW P [place] 72 degrees BEYOND NOW R [place] -31 degrees BEYOND NOW T [place] 69 degrees BEYOND NOW 01/12/2024 10:1 6 PM CDT 01/13/2024 8:20 PM CDT Emily Guzman MD EKG ORD BEYOND NOW [place], [place] * MRSA/SA PCR (01/12/2024 10:07 PM CDT) MRSA DNA PCR Negative Negative 01/12/2024 11:33 PM CDT [facility] STAPHYLOCOCCUS AUREUS PCR Negative Negative 01/12/2024 11:33 PM CDT [facility] Other SPECIMEN FROM INTERNAL NOSE / Unknown Non-Blood / Unknown 01/12/2024 10:07 PM CDT 01/12/2024 10:13 PM CDT Narrative [facility] - 01/12/2024 11:33 PM CDT Test result does not preclude MRSA or SA nasal colonization. Chaparro Sneed DO MICROBIOLOGY [facility] [address] [place] [address], * (ABNORMAL) Urine Culture (01/12/2024 10:07 PM CDT) CULTURE RESULT(A) 01/16/2024 6:58 AM CDT [facility] CULTURE 10,000-50,000 CFU/mL Proteus mirabilis 01/16/2024 6:58 AM CDT [facility] CULTURE 50,000-100,000 CFU/mL Danita albicans 01/16/2024 6:58 AM CDT [facility] Urine URINE SPECIMEN / Unknown Non-Blood [...] Guzman MD MICROBIOL OGY Performing Organization Address City/[facility]/ZIP Co de Phone Number [facility] [address] [place] [address], * Blood Culture (01/12/2024 9:40 PM CDT) Only the most recent of2 resultswithin the time period is included. Pathologist [facility] CULTURE No Growth. 01/16/2024 11:23 PM CDT [facility] Blood BLOOD SPECIMEN / Unknown Venipuncture / Unknown 01/12/2024 9:40 PM CDT 01/12/2024 9:52 PM CDT Narrative [facility] - 01/16/2024 11:23 PM CDT Low volume blood culture received; possible false negative culture. Emily Guzman MD MICROBIOL OGY Performing Organization Address [facility]/ZIP Co de Phone Number [facility] [address] [place] [address], * (ABNORMAL) TROPONIN T(HS) ACUTE W/2HR REFLEX (01/12/2024 9:37 PM CDT) TROPONIN T HS 47(H) 6-10 ng/L ng/L 01/12/2024 10:16 PM CDT [facility] Blood BLOOD SPECIMEN / Unknown Non-Lab Venipuncture / Unknown 01/12/2024 9:37 PM CDT 01/12/2024 9:46 PM CDT Narrative [facility]AL LABOR[facility] - 01/12/2024 10:16 PM CDT [...] department patient population. Emily Guzman MD CHEMISTRY [facility]AL [facility] [address] [place] [address], [place] * (ABNORMAL) CBC WITH AUTO DIFFERENTIAL (01/12/2024 9:37 PM CDT) [facility] WHITE BLOOD COUNT 14.9(H) 4.5 - 11.0 thou/cu mm 01/12/2024 9:54 PM CDT [facility] RED BLOOD COUNT 3.61(L) 4.00 - 5.20 mil/cu mm 01/12/2024 9:54 PM CDT [facility] HEMOGLOBIN 10.5(L) 12.0 - 16.0 g/dL 01/12/2024 9:54 PM CDT [facility] HEMATOCRIT 32.6(L) 33.0 - 51.0 % 01/12/2024 9:54 PM CDT [facility] MCV 90 80 - 100 fL 01/12/2024 9:54 PM CDT [facility] MCH 29.1 26.0 - 34.0 pg 01/12/2024 9:54 PM CDT [facility] MCHC 32.2 32.0 - 36.0 g/dL 01/12/2024 9:54 PM CDT [facility] RDW 13.2 11.5 - 15.5 % 01/12/2024 9:54 PM CDT [facility] PLATELET COUNT 273 140 - 440 thou/cu mm 01/12/2024 9:54 PM CDT [facility] MPV 11.0 6.5 - 11.0 fL 01/12/2024 9:54 PM CDT [facility] NRBC 0.0 % 01/12/2024 9:54 PM CDT [facility] ABS NRBC 0.0 thou /cu mm 01/12/2024 9:54 PM CDT [facility] % NEUT 80.3 % 01/12/2024 9:54 PM CDT [facility] % LYMPH 9.6 % 01/12/2024 9:54 PM CDT [facility] % MONO 9.2 % 01/12/2024 9:54 PM CDT [facility] % EOS 0.1 % 01/12/2024 9:54 PM CDT [facility] % BASO 0.1 % 01/12/2024 9:54 PM CDT [facility] % IMMATURE GRAN (METAS,MYELOS,TN OS) 0.7 % 01/12/2024 9:54 PM CDT [facility] ABSOLUTE NEUTROPHILS 12.0(H) 1.7 - 7.0 thou/cu mm 01/12/2024 9:54 PM CDT [facility] ABSOLUTE LYMPHOCYTES 1.4 0.9 - 2.9 thou/cu mm 01/12/2024 9:54 PM CDT [facility] ABSOLUTE MONOCYTES 1.4(H) <0.9 thou/cu mm 01/12/2024 9:54 PM CDT [facility] ABSOLUTE EOSINOPHILS 0.0 <0.5 thou/cu mm 01/12/2024 9:54 PM CDT [facility] ABSOLUTE BASOPHILS 0.0 <0.3 thou/cu mm 01/12/2024 9:54 PM CDT [facility] ABSOLUTE IMMATURE GRANULOCYTES(MET ,MYELOS,PROS) 0.1 <0.3 thou/cu mm 01/12/2024 9:54 PM CDT [facility] Blood BLOOD SPECIMEN / Unknown Non-Lab Venipuncture / Unknown 01/12/2024 9:37 PM CDT 01/12/2024 9:46 PM CDT Emily Guzman MD HEMATOLOG Y [facility] [address] [place] [address], * (ABNORMAL) BLOOD GAS,VENOUS (01/12/2024 9:37 PM CDT) PH, VENOUS 7.25(L) 7.32 - 7.43 01/12/2024 9:52 PM CDT [facility] PCO2, VENOUS 44 41 - 51 mmHg 01/12/2024 9:52 PM CDT [facility] PO2, VENOUS 48(H) 35 - 40 mmHg 01/12/2024 9:52 PM CDT [facility] HCO3,VENOUS 19(L) 22 - 29 mmol/L 01/12/2024 9:52 PM CDT [facility] BASE EXCESS, VENOUS, POCT -7.7(L) -2.0 - 3.0 01/12/2024 9:52 PM CDT [facility] O2 SATURATION, VENOUS 85(H) 70 - 75 % 01/12/2024 9:52 PM CDT [facility] INSPIRED O2 21 01/12/2024 9:52 PM CDT [facility] Comment:Unit of Measure: Lit ers (L) if <=20; Percent (%) if >20 PATIENT TEMPERATURE 36.9 Degrees C 01/12/2024 9:52 PM CDT [facility] Blood VENOUS BLOOD SPECIMEN / Unknown Non-Lab Venipuncture / Unknown 01/12/2024 9:37 PM CDT 01/12/2024 9:46 PM CDT Emily Guzman MD CHEMISTRY [facility] [address] [place] [id number], * Protime - INR (01/12/2024 9:37 PM CDT) INR 1.0 <1.3 01/12/2024 9:56 PM CDT [facility] PROTIME 11.5 10.3 - 12.3 sec 01/12/2024 9:56 PM CDT [facility] Blood BLOOD SPECIMEN / Unknown Non-Lab Venipuncture / Unknown 01/12/2024 9:37 PM CDT 01/12/2024 9:46 PM CDT Narrative [facility] - 01/12/2024 9:56 PM CDT [...] on [facility]. Emily Guzman MD HEMATOLOG Y [facility] [address] [place] [address], * (ABNORMAL) HEMOGLOBIN A1C MONITORING (POCT) (01/12/2024 9:37 PM CDT) Only the most recent of2 resultswithin the time period is included. HEMOGLOBIN A1C MONITORING (POCT) 9.3(H) <=6.4 % 01/14/2024 10:29 AM CDT [facility] Blood BLOOD SPECIMEN / Unknown Non-Lab Venipuncture / Unknown 01/12/2024 9:37 PM CDT 01/12/2024 9:46 PM CDT Narrative [facility] - 01/14/2024 10:29 AM CDT ? (<=6.9%) [...] NP CHEMISTRY Performing Organization Address [facility]/ZIP Co de Phone Number [facility] [address] [place], [place] [id number], [place] * (ABNORMAL) Hepatic Function Panel (01/12/2024 9:37 PM CDT) ALBUMIN 3.2(L) 4.0 - 4.9 g/dL 01/12/2024 10:16 PM CDT [facility] PROTEIN,TOTAL 6.4 6.0 - 8.0 g/dL 01/12/2024 10:16 PM CDT [facility] BILIRUBIN,TOTAL 0.2 0.0 - 1.2 mg/dL 01/12/2024 10:16 PM CDT [facility] BILIRUBIN,DIRECT <0.2 0.0 - 0.3 mg/dL 01/12/2024 10:16 PM CDT [facility] BILIRUBIN,INDIRE CT 01/12/2024 10:16 PM CDT [facility] Comment:Unable to calculate, Direct Bili <0.2 ALK PHOSPHATASE 122(H) 35 - 104 IU/L 01/12/2024 10:16 PM CDT [facility] ALT (SGPT) 21 10 - 35 IU/L 01/12/2024 10:16 PM CDT [facility] AST (SGOT) 20 10 - 35 IU/L 01/12/2024 10:16 PM CDT [facility] Blood BLOOD SPECIMEN / Unknown Non-Lab Venipuncture / Unknown 01/12/2024 9:37 PM CDT 01/12/2024 9:46 PM CDT Emily Guzman MD CHEMISTRY Performing Organization Address City/[facility]/ZIP Co de Phone Number [facility] [address] [place] [address], [place] * SCAN-CARDIAC STRIP (01/12/2024 9:20 PM [...] health care provider. XR MAMMO BILAT SCREENING [[id number]] CLINICAL HISTORY: ??This is an asymptomatic 61 y.o. patient. INDICATION FOR EXAM: Mammogram Screening. TECHNIQUE: CC & MLO views were obtained. ??This study was evaluated with the assistance of Computer-Aided Detection. COMPARISON FILM: Yes 03/02/18 [place] [facility] FINDINGS: ??The breasts are extremely dense, which lowers the sensitivity of mammography. There are no dominant masses, suspicious micro calcifications or areas of architectural distortion. Shania Montiel MD MAMMO * LIPID PANEL W REFLEX MEASURED LDL (04/28/2022 1:44 PM CDT) CHOLESTEROL,TOTAL 139 100 - 199 mg/dL 04/30/2022 6:25 PM CDT [facility] TRIGLYCERIDES 141 <150 mg/dL 04/30/2022 6:25 PM CDT [facility] HDL CHOLESTEROL 42 >40 mg/dL 6:25 PM CDT [facility] NON-HDL CHOLESTEROL 97 <145 mg/dl 04/30/2022 6:25 PM CDT [facility] CHOL/HDL RATIO 3.31 <4.50 04/30/2022 6:25 PM CDT [facility] LDL CHOLESTEROL 69 <=130 mg/dL 04/30/2022 6:25 PM CDT [facility] VLDL CHOLESTEROL 28 <=30 mg/dL 04/30/2022 6:25 PM CDT [facility] PROVIDER ORDERED STATUS RANDOM 04/30/2022 6:25 PM CDT [facility] Blood BLOOD SPECIMEN / Unknown Venipuncture / Unknown 04/28/2022 1:44 PM CDT 04/28/2022 1:45 PM CDT Shania Montiel MD CHEMISTRY [facility] [address] [place] [address], [place] * FECAL DNA (AKA COLOGUARD) (11/10/2021 1:00 PM CDT) Shania Montiel MD COMMUNICATION ORD * ANTI HCV [[id number]] (02/16/2018 4:20 PM CDT) HEPATITIS C ANTIBODY Non-React alex Non-React alex 02/17/2018 2:48 PM CDT [facility] Comment:Antibodies to HCV no t detected; does not exclude the possibility of exposure to HCV. Blood BLOOD SPECIMEN / Unknown Butterfly / Unknown 02/16/2018 4:20 PM CDT 02/16/2018 4:20 PM CDT Coleman Plata MD SEND OUTS [facility] [address] [place] [address], * HIV 1&2 TODAY (07/21/2015 9:40 AM CONCRETE LAYER) HIV-1/HIV-2 ANTIBODY Non-Reacti ve Non-Reacti ve 07/21/2015 10:31 AM CONCRETE LAYER [facility] Blood specimen (specimen) BLOOD SPECIMEN / Unknown Venipuncture / Unknown 07/21/2015 9:40 AM CONCRETE LAYER 07/21/2015 9:47 AM CONCRETE LAYER Narrative [facility] - 07/21/2015 10:31 AM CONCRETE LAYER HIV-1 p24 and HIV-1/HIV-2 Ab not detected Kait Morales DO SEND OUTS [facility] [address] [place] [address], * HULL BUILDER THIN PREP PAP SCREEN IMAGED (08/17/2012 4:02 PM CONCRETE LAYER) CYTOLOGY CYTOPATHOLOGY REPORT [facility] Status: Final Status ?[id number] CLINICAL INFORMATION Last Date of LMP ? :07/03/2012 Last Pap Date ?:02/01/2011 Last Pap Result ?:NIL ABN Arnett/Bx Past 5 YRS :None Hormone Usage ?:BCP/OCP/Patch/R ing Menstrual Status ? :Regular Periods Arnett/Bx done today ? :No Additional Information :None [...] ? ACCESSIONED: ??08/18/12 ?? SIGNED: ??08/21/12 [facility] PAP [place] CODE NIL [facility] Tissue specimen (specimen) (Cervical/Vagina l) 08/17/2012 4:02 PM CONCRETE LAYER 08/17/2012 4:00 PM CONCRETE LAYER Coleman Plata MD PATHOLOGY/CYTOLOGY 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, has chronic open wounds/skin [...] 8:01 PM 07/15/2012 6:55 PM Care Teams Amr Physician Relationship Specialty Start Date End Date Barbara Valentin DO [address] [place] [address] PCP - General Family Practice 11/15/22 Julio Ibrahim MD [address] [place] [address] Surgery - Orthopedics 02/01/11 Chuy Doss MD [address] [place] [address] Surgery - Vascular 02/01/11 Markel Strong MD [address] [place] [address] Provider Family Practice 08/08/20 Nikolai Ibarra MD [address] [facility] [address] [place] [address] Endocrinology 09/07/22 [facility] [address] [place] [address] 01/17/24 Suad Ng/ [employer] Real Estate Executive Assistant 07/14/17 [facility] Home Health Nurse 07/01/17 [facility] INDUSTRIAL PHARMACIST Services Home Health Aide 07/14/17 [facility] Railroader/ Ally Morillom [address] [place], [place] [id number] Real Estate Executive Assistant 07/07/17
== END 2024-03-15 15:04 | disposition home or self-care (01) ==
LOC: WOUND 15:03
PROVIDERS: PCP Family Medicine; Visit Provider Nurse Practitioner Family
DX: E11.621 Type 2 diabetes mellitus with foot ulcer (principal); L97.422 Non-pressure chronic ulcer of left heel and midfoot with fat layer exposed; M14.672 Charcot's joint, left ankle and foot; Z79.4 Long term (current) use of insulin
CPT/HCPCS: 15275; Q4101

== ENCOUNTER 2024-03-16 18:55 | Outpatient (CLI) | payer OTHER, SELFPAY ==
--- OUTSIDE RECORDS SUMMARY | 2024-03-20 01:50 | XMS_ITS | Clinical Summary ---
Author Organization [facility] [place] Address [address] [facility] [place] [address] Phone Care Team Providers Care Emergency Generator Mechanic Name Role Phone Barbara Valentin DO Primary Care Provider [phone] Allergies Active Allergy Reactions Criticality Noted Date [...] One Pack) 3 MG/DOSE powder Inhale 1 [place] into affected nostril(s) each time if needed [...] Team Description 02/01/2024 Telephone [facility] [place] [address] [facility] [address] [place] [phone] Gabriel Hicks MD 01/23/2024 Documentation Only [facility] [place] [address] [facility] [address] [place] [phone] Ronnell Kirby 01/23/2024 Office Communication [facility] [place] [address] [facility] [address] [place] [phone] Ronnell Kirby from Last 3 Months Immunizations [...] LAB BLOOD ORDERAB LES Performing Organization Address City/[facility]/ZIP Co de Phone Number [facility] [...] BESSY from Last 3 Months Care Teams Emergency Generator Mechanic Relationship Specialty Start Date End Date Barbara Valentin DO [address] [place] [address] PCP - General Family Medicine 09/22/23
--- OUTSIDE RECORDS SUMMARY | 2024-03-20 01:50 | XMS_ITS | Encounter Summary ---
Author Organization [facility] [place] Address [address] [place] [address] Care Team Providers Care Shoe Parts Caser Name Role Phone Barbara Valentin DO Primary Care Provider [phone] Encounter Details Date Type Department Care Team (Late st Contact Info) Description 01/23/2024 Documentation Only [facility] [place] [address] [place] [address] Ronnell Kirby [address] [place] [address] Social History Tobacco Use Types [...] LAB BLOOD ORDERAB LES Performing Organization Address [facility]/ZIP Co de Phone Number [facility] * (ABNORMAL) Creatine (01/17/2024) Creatine, Serum 1.28(H) [facility] GFR Calculated 47(L) [facility] Blood (Blood, Venous) 01/17/2024 Historical Provider MD LAB BLOOD ORDERAB LES Performing Organization Address [facility]/State/ZIP Co de Phone Number [facility] * (ABNORMAL) Creatine (01/16/2024) Creatine, Serum 1.28(H) [facility] GFR Calculated 47(L) [facility] Blood (Blood, Venous) 01/16/2024 Historical Provider MD LAB BLOOD ORDERAB LES Performing Organization Address [facility] Co de Phone Number [facility] * (ABNORMAL) Creatine (01/15/2024) Creatine, Serum 1.71(H) [facility] GFR Calculated 34(L) [facility] Blood (Blood, Venous) 01/15/2024 Historical Provider MD LAB BLOOD ORDERAB LES Performing Organization Address [facility] Co de Phone Number [facility] * (ABNORMAL) Hemoglobin (01/15/2024) Hemoglobin 8.4(L) g/dL [facility] MCV 91.0 [facility] Blood (Blood, Venous) 01/15/2024 Historical Provider MD LAB BLOOD ORDERAB LES Performing Organization Address [facility] Co de Phone Number [facility] * (ABNORMAL) Basic Metabolic Panel (BMP) (01/14/2024) Sodium 144 mEq/L [facility] Potassium 4.4 mEq/L [facility] Chloride 112(H) [facility] Carbon Dioxide 23 mmol/L [facility] Calcium 8.4(L) mg/dL [facility] BUN 57(H) mg/dL [facility] Creatinine 2.61(H) mg/dL [facility] Glucose 179(H) mg/dL [facility] eGFR 20(L) [facility] Anion Gap 9 [facility] 01/14/2024 Historical Provider MD LAB BLOOD ORDERAB LES Performing Organization Address [facility] Co de Phone Number [facility] * (ABNORMAL) CBC (01/14/2024) WBC 8.5 K/uL [facility] Red Blood Cell Count 3.04(L) [facility] Hemoglobin 8.9(L) g/dL [facility] Hematocrit 27.5(L) % [facility] MCV 91 [facility] MCH 29.3 [facility] MCHC 32.4 [facility] RDW 14.4 [facility] Platelet Count 198 [facility] MPV 11.4(H) [facility] Blood (Blood, Venous) 01/14/2024 Historical Provider MD LAB BLOOD ORDERAB LES Performing Organization Address [facility] Co de Phone Number [facility] * (ABNORMAL) Basic Metabolic Panel (BMP) (01/13/2024) Sodium 143 mEq/L [facility] Potassium 4.6 mEq/L [facility] Chloride 111(H) [facility] Carbon Dioxide 21(L) mmol/L [facility] Calcium 8.0(L) mg/dL [facility] BUN 65(H) mg/dL [facility] Creatinine 3.10(H) mg/dL [facility] Glucose 143(H) mg/dL [facility] eGFR 16(L) [facility] Anion Gap 11 [facility] 01/13/2024 Historical Provider MD LAB BLOOD ORDERAB LES Performing Organization Address [facility] de Phone Number [facility] [...] LAB BLOOD ORDERAB LES Performing Organization Address [facility] Co de Phone Number [facility] * (ABNORMAL) [...] on filedocumented in this encounter Care Teams Sh[employer] Caser Relationship Specialty Start Date End Date Barbara Valentin DO [address] [place] [address] PCP - General Family Medicine 09/22/23 documented as of this encounter
--- OUTSIDE RECORDS SUMMARY | 2024-03-20 01:50 | XMS_ITS | Encounter Summary ---
Author Organization [facility] [place] Address [address] [place] [address] Care Team Providers Care Auto Emissions Technician Name Role Phone Barbara Valentin DO Primary Care Provider [phone] Encounter Details Date Type Department Care Team (Late st Contact Info) Description 01/23/2024 Office Communication [facility] [place] [address] [place] [address] Ronnell Kirby [address] [place] [address] Social History Tobacco Use [...] on filedocumented in this encounter Care Teams Auto Emissions Technician Relationship Specialty Start Date End Date Barbara Valentin DO [address] Calder[address] [place] [address] PCP - General Family Medicine 09/22/23 documented as of this encounter
--- OUTSIDE RECORDS SUMMARY | 2024-03-20 01:50 | XMS_ITS | Encounter Summary ---
Author Organization [facility] [place] Address [address] [place] [address] Care Team Providers Care Pt Escort Name Role Phone Barbara Valentin DO Primary Care Provider [phone] Encounter Details Date Type Department Care Team (Late st Contact Info) Description 09/22/2023 Documentation Only [facility] [place] [address] [facility] [address] [place] [address] No, Pcp Social History Tobacco [...] on filedocumented in this encounter Care Teams Pt Escort Relationship Specialty Start Date End Date Barbara Valentin DO [place]oxy [place] [address] PCP - General Family Medicine 09/22/23 documented as of this encounter
--- OUTSIDE RECORDS SUMMARY | 2024-03-20 01:50 | XMS_ITS | Encounter Summary ---
Author Organization [facility] [place] Address [address] [place] [address] Care Team Providers Care Store Clerk Name Role Phone Barbara Valentin DO Primary Care Provider [phone] Encounter Details Date Type Department Care Team (Late st Contact Info) Description 02/01/2024 Telephone [facility] [place] [address] [place] [address] Gabriel Hicks MD [address] [place] [address] Social History Tobacco Use Types [...] on filedocumented in this encounter Care Teams Store Clerk Relationship Specialty Start Date End Date Barbara Valentin DO [address] [place] [address] PCP - General Family Medicine 09/22/23 documented as of this encounter
--- OUTSIDE RECORDS SUMMARY | 2024-03-20 01:51 | XMS_ITS | Clinical Summary ---
Author Organization [employer] [facility] s & [facility] Address [place], [place] [address] Care Team Providers Care Floor Refinisher Name Role Phone Julio Ibrahim MD Unavailable Chuy Doss MD Unavailable Markel Strong MD Unavailable [phone] Nikolai Ibarra MD Unavailable [phone] Barbara Valentin Patricia DO Primary Care Provider [facility] [place] Unavailable Allergies Active Allergy Reactions Criticality Noted [...] mellitus at risk of hypoglycemia Inhale 1 [place] into affected nostril(s) each time if needed for Severe Hypoglycemia. Roll on side and call 911 after administration. 2 Each 11 12/25/19 22 Active fluticasone (50 mcg per actuation) nasal solution (FLONASE)Indicati ons:Nasal congestion Inhale 1 [place] into affected nostril(s) once daily. Inhale 1 [place] in the nostril(s) once daily. 16 g [...] continuous glucose monitor READER (FreeStyle Elli 2 Seaside)Indication s:Type 1 diabetes mellitus with other specified complication (HC) To be used to read blood sugars per composition board press operator's directions. 1 Each 05/19/20 23 Active blood-glucose [...] be used to read blood sugars per composition board press operator's directions. 6 Each 3 09/06/19 24 [...] Chronic, continuous use of opioids Inhale 1 [place] into affected nostril(s) each time if needed [...] DAILY. 60 Capsule 01/13/20 24 024 Discontinued DULoxetine (CYMBALTA) 60 mg Delayed-release capsuleIndication s:Adjustment [...] agreement signed - 10/07/23 10/07/2023 Overview (10/07/2023): [facility] Noemí Sonny .................... 10/07/2023 4:39 PM Type 1 diabetes [...] Type Department Care Team Description 03/16/[address] [facility] [address] [place] [address] Toshia Hooks NP Refill Request 03/14/2024 10:30 AM CDT Home Care Visit [facility] [address] [place] [phone] Geneva Sanchez, LOS SN - OASIS DISCHARGE 03/12/2024 Refill [facility] [address] [place] [address] Barbara Valentin, DO Refill Request (Pregabalin, Fluoxetine, Duloxetine) 03/06/2024 10:00 AM CDT Home Care Visit [facility] [address] [place] [phone] Geneva Sanchez, LOS SN - HOME VISIT 03/06/2024 9:15 AM CDT Home Care Visit [facility] [address] [place] [phone] Alex Contreras FISH SMOKER - HOME VISIT 03/03/2024 Home Care Visit [facility] [address] [place] [phone] Nitza Riojas LISW CARE COORDINATION 02/28/2024 2:00 PM CDT Home Care Visit [facility] [address] [place] [phone] Shania Elaine, RN SN - HOME VISIT 02/28/2024 10:45 AM CDT Home Care Visit [facility] [address] [place] [phone] Fabiola Mathis FISH SMOKER - HOME VISIT 02/25/2024 Home Care Visit [facility] [address] [place] [address], [place] [address] Nitza Riojas LISW CARE COORDINATION 02/22/2024 3:00 PM CDT Home Care Visit [place] [phone] [place] [address], [place] [address] Trini Hitchcock, LOS SN - HOME VISIT 02/22/2024 Home Care Visit [address] [phone] Dar Phillips, OT OT - DISCIPLINE DISCHARGE 02/21/2024 9:45 AM CDT Home Care Visit [address] [phone] Alex Contreras FISH SMOKER - HOME VISIT 02/20/2024 Home Care Visit [address] [phone] Nitza Riojas LISW CARDIOVASCULAR LAB DIRECTOR - INITIAL ASSESSMENT 02/16/2024 Refill [facility] [address] [place] [address] Toshia Hooks NP Refill Request (oxyCODONE (ROXICODONE) 5 mg immediate release tablet ) 02/15/2024 3:45 PM CDT Home Care Visit [address] [phone] Coleman Greene, PT PT - DISCIPLINE DISCHARGE 02/15/2024 11:00 AM CDT Home Care Visit [address] [phone] Geneva Sanchez, LOS SN - HOME VISIT 02/14/2024 12:00 PM CDT Home Care Visit [address] [phone] Joi Moreno COTA OT - HOME VISIT 02/14/2024 8:15 AM CDT Home Care Visit [address] [phone] Fabiola Mathis FISH SMOKER - HOME VISIT 02/10/2024 3:30 PM CDT Home Care Visit [facility] [address] [place] [address] Joi Moreno VARELA OT - HOME VISIT 02/10/2024 Home Care Visit [facility] [address] [place] [address] Nitza Riojas LISW CARDIOVASCULAR LAB DIRECTOR - CASE COMMUNICATION 02/09/2024 Refill [facility] [address] [place] [address] Barbara Valentin, Refill Request (Duloxetine) 02/08/2024 3:00 PM CDT Home Care Visit [facility] [address] [place] [address] Veda Resendiz RN SN - WOUND/OSTOMY CHART CONSULT 02/08/2024 9:00 AM CDT Home Care Visit [facility] [address] [place] [address] Geneva Sanchez, LOS SN - HOME VISIT 02/08/2024 Telephone [facility] [address] [place] [address] Barbara Valentin DO Pharmacist Medication Management (MEDICATION CHANGE) 02/08/2024 Telephone [facility] [address], [place] [address] Geneva Sancehz, wine fermenter List Update 02/07/2024 4:00 PM CDT Home Care Visit [facility] [address] [place] [address] Joi Moreno COTA OT - HOME VISIT 02/07/2024 9:30 AM CDT Home Care Visit [facility] [address] [place] [address] Kendal Serna, PT PT - HOME VISIT 02/07/2024 Telephone [facility] [address] [place] [address] Saúlqra, Barbara Patricia, DO Refill Request (Insulin lispro pens) 02/04/2024 Refill [facility] [address] [place] [address] Saúlqra, Barbara Patricia, DO Refill Request (Insulin Lispro) 02/03/2024 9:00 AM CDT Home Care Visit [facility] [address] [place] [address] Joi Moreno, VARELA OT - HOME VISIT 02/02/2024 11:00 AM CDT Home Care Visit [facility] [address] [place] [address] Kendal Serna, PT PT - HOME VISIT 02/01/2024 4:00 PM CDT Home Care Visit [facility] [address] [place] [address] Joi Moreno, VARELA OT - HOME VISIT 01/31/2024 9:30 AM CDT Home Care Visit [facility] [address] [place] [address] Fabiola Mathis FISH SMOKER - HOME VISIT 01/31/2024 Home Care Visit [facility] [address] [place] [address] Oumou Burns, RN CARE COORDINATION 01/31/2024 Home Care Visit [facility] [address] [place] [phone] Oumou Burns, RN CARE COORDINATION 01/30/2024 10:45 AM CDT Home Care Visit [facility] [address] [place] [address] Kendal Serna, PT PT - HOME VISIT 01/30/2024 9:00 AM CDT Home Care Visit [facility] [address] [place] [phone] Geneva Sanchez, LOS SN - INITIAL ASSESSMENT 01/25/2024 1:30 PM CDT Home Care Visit [facility] [address] [place] [address] Coleman Greene, PT PT - HOME VISIT 01/25/2024 Travel 01/24/2024 1:00 PM CDT Home Care Visit [facility] [address] [place] [address] Dar Phillips, OT OT - INITIAL ASSESSMENT 01/24/2024 9:30 AM CDT Home Care Visit [facility] [address] [place] [phone] Fabiola Mathis FISH SMOKER - HOME VISIT 01/24/2024 Home Care Visit [facility] [address] [place] [phone] Narcisa Atkinson, RN CARE COORDINATION 01/23/2024 Home Care Visit [facility] [address] [place] [phone] Narcisa Atkinson, RN CARE COORDINATION 01/20/2024 Refill [facility] [address] [place] [address] Toshia Hooks NP Refill Request 01/18/2024 1:45 PM CDT Home Care Visit [facility] [address] [place] [phone] Kendal Serna, PT PT - OASIS START OF CARE 01/18/2024 10:30 AM CDT Phone Office Visit [facility] [address] [place] [address] Nikolai Ibarra MD 01/18/2024 Plan of Care Documentation [facility] [address] [place] [phone] 01/18/2024 Patient Outreach [facility] [address] [place] [address] Maria R Ho, RN Primary RN Care Management; Hospital F/U (Lace 44) 01/18/2024 Travel 01/12/2024 9:13 PM CDT - 01/17/2024 5:23 PM CDT Hospital Encounter [facility] [address] [place] [address] Emily Guzman MD Litell, DO Chente Honeycutt, MD Dusty Manjarrez, MD Ricky Alston, Helder Hoover MD [facility], [facility] Hospitalists Of Opioid dependence, uncomplicated (HC) (Primary Dx); Nasal congestion; Chronic pain syndrome; Diabetic ketoacidosis without coma associated with type 1 diabetes mellitus (HC); 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 [address] [place] [address] Toshia Hooks NP Follow Up; Pain (Multi source; was told by her Supervisor Word Processing she can ot use OTC Voltaren gel., which had been helping her O.A. pain (hands; wrists; shoulders; ) ) 01/06/2024 Travel 01/02/2024 Telephone [facility] [address] [place] [address] Barbara Valentin, DO Follow Up 12/27/2023 Refill [facility] [address] [place] [address] Barbara Valentin, DO Refill Request (Pregabalin, Cetirizine) 12/23/2023 2:35 PM CDT Office Visit [facility] [address] [place] [address] Barbara Valentin DO Diabetes (3 month check, labs); Rash (Rash under breasts? ) 12/23/2023 Travel 12/20/2023 Refill [facility] [address] [facility] [address] Barbara Valentin DO Refill Request (Humalog Kwikpen Insulin) from Last 3 Months Immunizations Name Administration Dates Next Due AMB Influenza, IIV3 (Age >=3 years)(Flu Clinic Only) 05/17/2013,05/06/2010 COVID-19 vaccine (Motivapps-Bio NTech 30mcg/0.3mL) 12YO+ BIVALENT PF, MDV 04/28/2022 COVID-19 vaccine (Motivapps-Bio NTech 30mcg/0.3mL) PF, MDV 06/23/2021 Hepatitis B [...] Description 03/26/2024 3:25 PM CDT Office Visit [facility] [address] [facility] [address] Barbara Valentin DO [address] [facility] [address] 05/04/2024 3:30 PM CDT Phone Office Visit [facility] [address] [place] [address] Nikolai Ibarra MD [address] [place] [address] Health Maintenance Due Date Last Done Comments [...] 06/23/2021, 09/24/2020 Influenza for age 50-64 03/04/2024 04/28/20 22, 04/28/2021, 03/18/2020, Additional history exists Fecal testing sDNA-FIT ([place] guard) for age 45-75 11/10/2024 11/10/2021 Pneumococcal series for age 6-64 (3 of 3 - PPSV23 or PCV20) 2026 08/17/2016, 08/14/2014, 07/04/2005, Additional history exists Lipids for age 45-75 04/28/2027 04/28/2022, 08/17/2019, 08/31/2018, Additional history exists Tdap Completed 08/25/2010 HIV for age 15-65 Completed 07/21/2015 Hepatitis C screening for ag e 18-79 Completed 02/16/2018 Medical Devices Implanted Type Area Mechanical Fitter Device Identifier Shelf Expiration Date Model / Serial / Lot [id number] 2x12mm [[id number]] Implanted:Qty: 1 on 08/08/2008 at [facility] Explanted:at [facility] (Quantity not on file) [facility] Nginx [id number]# / [id number] / Stem Compnt Primary 8mm Mini - [id number] Implanted:Qty: 1 on 03/17/2011 at [facility] Right: Shoulder BIOMET [id number]# / / [id number] Head Hum Bio-Mod [id number] - [id number] Implanted:Qty: 1 on 03/17/2011 at [facility] Right: Shoulder BIOMET [id number]# / / [id number] Base Glenoid Hybrid 4mm Sm - [id number] Implanted:Qty: 1 on 03/17/2011 at [facility] Right: Shoulder BIOMET [id number]# / / [id number] Cmnt 1/2 Dosehowmedica - [id number] Implanted:Qty: 1 on 03/17/2011 at [facility] Right: Shoulder [employer] 6188--[id number] 0# / / [id number] Post Glenoid Hybrid Regenerex - [id number] Implanted:Qty: 1 on 03/17/2011 at [facility] Right: Shoulder BIOMET [id number] # / / [id number] Head Humeral 44x15 Co Cr Biomodular - [id number] Implanted:Qty: 1 on 07/12/2012 at [facility] Left: Shoulder BIOMET [id number]# / / [id number] Shoulder Stem Implanted:Qty: 1 on 07/12/2012 at [facility] Left: Shoulder [id number] / / [id number] Description:SHOULDER STEM Cmnt Bone 1/2 Dosehowmedica - [id number] Implanted:Qty: 1 on 07/12/2012 at [facility] Left: Shoulder [employer] 6188-1- 0# / / [id number] Post Glenoid Hybrid Regenerex - [id number] Implanted:Qty: 1 on 07/12/2012 at [facility] Left: Shoulder BIOMET [id number] # / / [id number] Base Glenoid Hybrid 4mm Sm - [id number] Implanted:Qty: 1 on 07/12/2012 at [facility] Left: Shoulder BIOMET [id number]# / / [id number] Procedures Procedure Name Priority Date/Time Associated Diagnosis [...] HIV 1/2 Add On 07/21/2015 9:40 AM HOME ENERGY RATER BITUMEN PLANT OPERATOR THIN PREP PAP SCREEN IMAGED Routine 08/17/2012 4:02 PM HOME ENERGY RATER Screening for malignant neoplasm of the cervix [...] - 100 mg/dL 01/17/2024 11:35 AM CDT [facility] Belan[facility] Blood BLOOD SPECIMEN / Unknown 01/17/2024 11:27 AM CDT 01/17/2024 11:35 AM CDT Helder García MD CHEMISTRY [facility] [address] [place] [address], * (ABNORMAL) CREATININE (01/17/2024 8:20 AM CDT) Only the most recent of3 resultswithin the time period is included. eGFR 47(L) >90 mL/min/1.7 3m2 01/17/2024 9:06 AM CDT [facility] Comment:As of 2021, eG FR is calculated by the CKD-EPI creatinine equation without race adjustment. ??eGFR can be influenced by muscle mass, exercise, and diet. ??The reported eGFR is an estimation only and is only applicable if the renal function is stable. CREATININE 1.28(H) 0.50 - 0.90 mg/dL 01/17/2024 9:06 AM CDT [facility] Blood BLOOD SPECIMEN / Unknown Non-Lab Venipuncture / Unknown 01/17/2024 8:20 AM CDT 01/17/2024 8:26 AM CDT Helder García MD CHEMISTRY Performing Organization Address [facility]/ZIP Co de Phone Number [facility] [address] [place] [address], * PHOSPHORUS (01/17/2024 8:20 AM CDT) Only the most recent of5 resultswithin the time period is included. PHOSPHORUS 2.6 2.5 - 4.5 mg/dL 01/17/2024 9:06 AM CDT [facility] Blood BLOOD SPECIMEN / Unknown Non-Lab Venipuncture / Unknown 01/17/2024 8:20 AM CDT 01/17/2024 8:26 AM CDT Sarah Betancourt RN CHEMISTRY Performing Organization Address [facility] Co de Phone Number [facility] [address] [place] [address], * (ABNORMAL) BASIC METABOLIC PANEL (01/17/2024 8:20 AM CDT) Only the most recent of5 resultswithin the time period is included. SODIUM 139 136 - 145 mmol/L 01/17/2024 12:35 PM CDT [facility] POTASSIUM 3.9 3.5 - 5.1 mmol/L 01/17/2024 12:35 PM CDT [facility] CHLORIDE 103 98 - 107 mmol/L 01/17/2024 12:35 PM CDT [facility] CO2,TOTAL 24 22 - 29 mmol/L 01/17/2024 12:35 PM CDT [facility] ANION GAP 12 5 - 18 01/17/2024 12:35 PM CDT [facility] GLUCOSE 162(H) 70 - 99 mg/dL 01/17/2024 12:35 PM CDT [facility] CALCIUM 8.7(L) 8.8 - 10.2 mg/dL 01/17/2024 12:35 PM CDT [facility] BUN 17 8 - 23 mg/dL 01/17/2024 12:35 PM CDT [facility] CREATININE 1.31(H) 0.50 - 0.90 mg/dL 01/17/2024 12:35 PM CDT [facility] BUN/CREAT RATIO 13 10 - 20 12:35 PM CDT [facility] eGFR 46(L) >90 mL/min/1.7 3m2 01/17/2024 12:35 PM CDT [facility] Comment: As of 2021, eGFR [...] 8:26 AM CDT Helder García MD CHEMISTRY [facility] [address] [place] [address], * CLOSTRIDIOIDES DIFFICILE TOXIN PCR (01/16/2024 12:27 PM CDT) CLOSTRIDIUM DIFFICILE PCR Negative 01/16/2024 2:18 PM CDT [facility] PRESUMPTIVE NAP1 STRAIN Negative 01/16/2024 2:18 PM CDT [facility] Stool STOOL SPECIMEN / Unknown Non-Blood / Unknown 01/16/2024 12:27 PM CDT 01/16/2024 12:51 PM CDT Narrative [facility] - 01/16/2024 2:18 PM CDT The NAP1 (027 or BI) strain is a hypervirulent strain. Detection may be useful for epidemiological purposes. Helder García MD MICROBIOLOGY Performing Organization Address [facility] Co de Phone Number [facility] [address] [place] [address], * SCAN CORRESP-EKG RESULTS (01/16/2024 9:07 AM CDT) Narrative 01/16/2024 9:07 AM CDT Ordered by an unspecified provider. Other Clinical Staff OTHER * (ABNORMAL) HEMOGLOBIN (01/16/2024 6:30 AM CDT) Only the most recent of2 resultswithin the time period is included. HEMOGLOBIN 8.9(L) 12.0 - 16.0 g/dL 01/16/2024 7:13 AM CDT [facility] MCV 91 80 - 100 fL 01/16/2024 7:13 AM CDT [facility] Blood BLOOD SPECIMEN / Unknown Venipuncture / Unknown 01/16/2024 6:30 AM CDT 01/16/2024 6:58 AM CDT Fabrizio Montano MD HEMATOLOGY Performing Organization Address City/[facility]/ZIP Co de Phone Number [facility] [address] [place] [address], [place] * VANCOMYCIN (01/16/2024 6:30 AM CDT) Only the most recent of3 resultswithin the time period is included. VANCOMYCIN 13.0 ug/mL 01/16/2024 7:42 AM CDT [facility] Comment:No Reference Range D efined. DATE OF LAST DOSE,RANDOM Not Given 01/16/2024 7:42 AM CDT [facility] TIME OF LAST DOSE,RANDOM Not Given 01/16/2024 7:42 AM CDT [facility] Blood BLOOD SPECIMEN / Unknown Venipuncture / Unknown 01/16/2024 6:30 AM CDT 01/16/2024 6:58 AM CDT Barbara Holcomb NP CHEMISTRY Performing Organization Address [facility] Co de Phone Number [facility] [address] [place] [address], * (ABNORMAL) PLATELET COUNT (01/15/2024 6:02 AM CDT) PLATELET COUNT 166 140 - 440 thou/cu mm 01/15/2024 6:44 AM CDT [facility] MPV 11.2(H) 6.5 - 11.0 fL 01/15/2024 6:44 AM CDT [facility] Blood BLOOD SPECIMEN / Unknown Venipuncture / Unknown 01/15/2024 6:02 AM CDT 01/15/2024 6:26 AM CDT Fabrizio Montano MD HEMATOLOGY Performing Organization Address City/[facility] Co de Phone Number [facility] [address] [place] [address], [place] * WHITE BLOOD COUNT (01/15/2024 6:02 AM CDT) WHITE BLOOD COUNT 4.9 4.5 - 11.0 thou/cu mm 01/15/2024 6:44 AM CDT [facility] NRBC 0.0 % 01/15/2024 6:44 AM CDT [facility] ABS NRBC 0.0 thou /cu mm 01/15/2024 6:44 AM CDT [facility] Blood BLOOD SPECIMEN / Unknown Venipuncture / Unknown 01/15/2024 6:02 AM CDT 01/15/2024 6:26 AM CDT Fabrizio Montano MD HEMATOLOGY Performing Organization Address [facility] Co de Phone Number [facility] [address] [place] [address], [place] * Sodium AM (01/15/2024 6:02 AM CDT) SODIUM 142 136 - 145 mmol/L 01/15/2024 7:13 AM CDT [facility] Blood BLOOD SPECIMEN / Unknown Venipuncture / Unknown 01/15/2024 6:02 AM CDT 01/15/2024 6:27 AM CDT Fabrizio Montano MD CHEMISTRY Performing Organization Address [facility] Co de Phone Number [facility] [address] [place] [address], [place] * Potassium AM (01/15/2024 6:02 AM CDT) Only the most recent of3 resultswithin the time period is included. Pathologist [facility] POTASSIUM 4.4 3.5 - 5.1 mmol/L 01/15/2024 7:13 AM CDT [facility] Blood BLOOD SPECIMEN / Unknown Venipuncture / Unknown 01/15/2024 6:02 AM CDT 01/15/2024 6:27 AM CDT Fabrizio Montano MD CHEMISTRY Performing Organization Address [facility] Co de Phone Number [facility] [address] [place] [address], [place] * SCAN-CARDIAC STRIP (01/14/2024 7:07 AM CDT) Scanner OTHER * (ABNORMAL) CBC W PLT NO DIFF (01/14/2024 5:28 AM CDT) WHITE BLOOD COUNT 8.5 4.5 - 11.0 thou/cu mm 01/14/2024 6:33 AM CDT [facility] RED BLOOD COUNT 3.04(L) 4.00 - 5.20 mil/cu mm 01/14/2024 6:33 AM CDT [facility] HEMOGLOBIN 8.9(L) 12.0 - 16.0 g/dL 01/14/2024 6:33 AM CDT [facility] HEMATOCRIT 27.5(L) 33.0 - 51.0 % 01/14/2024 6:33 AM CDT [facility] MCV 91 80 - 100 fL 01/14/2024 6:33 AM CDT [facility] MCH 29.3 26.0 - 34.0 pg 01/14/2024 6:33 AM CDT [facility] MCHC 32.4 32.0 - 36.0 g/dL 01/14/2024 6:33 AM CDT [facility] RDW 14.4 11.5 - 15.5 % 01/14/2024 6:33 AM CDT [facility] PLATELET COUNT 198 140 - 440 thou/cu mm 01/14/2024 6:33 AM CDT [facility] MPV 11.4(H) 6.5 - 11.0 fL 01/14/2024 6:33 AM CDT [facility] NRBC 0.0 % 01/14/2024 6:33 AM CDT [facility] ABS NRBC 0.0 thou /cu mm 01/14/2024 6:33 AM CDT [facility] Blood BLOOD SPECIMEN / Unknown Non-Lab Venipuncture / Unknown 01/14/2024 5:28 AM CDT 01/14/2024 6:31 AM CDT Barbara Holcomb NP HEMATOLOGY [facility] [address] [place] [address], * (ABNORMAL) CALCIUM IONIZED HOSPITAL DRAW ONLY (01/14/2024 5:28 AM CDT) Only the most recent of3 resultswithin the time period is included. CALCIUM,IONIZE D 1.30(H) 1.15 - 1.27 mmol/L 01/14/2024 6:03 AM CDT [facility] Blood BLOOD SPECIMEN / Unknown Non-Lab Venipuncture / Unknown 01/14/2024 5:28 AM CDT 01/14/2024 5:49 AM CDT Grace Eldridge MD CHEMISTRY [facility] [address] [place] [address], * ECHO TTE COMPLETE W CONTRAST (01/13/2024 3:56 PM CDT) Pathologist [facility] AORTIC VALVE MEAN PG 7 mmHg EJECTION FRACTION 64 % LVEDD 4.1 cm EJECTION FRACTION 60 - 65% Anatomical Region Laterality Modality Ultrasound 01/13/2024 2:53 PM CDT Narrative 01/13/2024 4:39 PM CDT ECHOCARDIOGRAM MIKAYLA KUHN ? Accession#: ?? [id number] : ?1960 63 years Study Date: ?? 01/13/2024 2:53:14 PM Gender: F ?BP: ? 114/44 mmHg Height: 152.00 cm ?BSA: ?1.93 m? ? ? Weight: 98.00 kg ? Tech: ? KBA ? Referring MD: BARBARA HOLCOMB Site: ? [facility] Reading Location: ANW IP Patient Location: [...] documentation: 2 ml diluted Definity, lot #[id number], [facility]# [id number] was administered peripherally to enhance visualization of all left ventricular segments. . This study was interpreted by an [facility] accredited facility. ??Final ?? Procedure Note Travon Blood MD - 01/13/2024 ECHOCARDIOGRAM MIKAYLA KUHN : 1960 63 years Study Date: 01/13/2024 2:53:14 PM Gender: F BP: 114/44 mmHg Height: 152.00 cm BSA: 1.93 m? ? ? Weight: 98.00 kg Tech: PASQUALE Referring MD: BARBARA HOLCOMB Site: [facility] Reading Location: ANW IP Patient Location: [...] documentation: 2 ml diluted Definity, lot #[id number], [facility]#[id number] was administered peripherally to enhance visualization of allleft ventricular segments. . This study was interpreted by an [facility] accredited facility. Final Barbara Holcomb PROCESSING ASSISTANT ECHO ORD * US ARTERIAL LOWER EXTREMITY [...] 125 mmHg Left Brachial: 111 mmHg Right SPORTS ADMINISTRATOR: Noncompressible Right DPA: 115 mmHg (SAMUEL 0.92) Left SPORTS ADMINISTRATOR: Noncompressible Left DPA: Noncompressible SAMUEL: 1.0-1.4 - normal 0.9-0.99 - borderline 0.80-0.89 - mild 0.50-0.79 - moderate 0.30-0.49 - severe < 0.30 - critical RIGHT: RETAIL HELPER PROX: 204 cm/sec; triphasic waveforms RETAIL HELPER DIST: 138 cm/sec; triphasic waveforms PFA: 97 cm/sec; triphasic waveforms SFA PROX: 140, 111 cm/sec; triphasic waveforms SFA MID: 113, 74 cm/sec; triphasic waveforms SFA DIST: 107, 113 cm/sec; triphasic waveforms POP PROX: 105 cm/sec; triphasic waveforms POP DIST: 89 cm/sec; triphasic waveforms SPORTS ADMINISTRATOR: 32 cm/sec; triphasic waveforms KAITLYN: 58 cm/sec; triphasic waveforms DPA: 56 cm/sec; triphasic waveforms LEFT: RETAIL HELPER PROX: 193 cm/sec; triphasic waveforms RETAIL HELPER DIST: 152 cm/sec; triphasic waveforms PFA: 98 cm/sec; triphasic waveforms SFA PROX: 119, 109 cm/sec; triphasic waveforms SFA MID: 103, 102 cm/sec; triphasic waveforms SFA DIST: 103, 100 cm/sec; triphasic waveforms POP PROX: 124 cm/sec; triphasic waveforms POP DIST: 85 cm/sec; triphasic waveforms SPORTS ADMINISTRATOR: 169 cm/sec; triphasic waveforms KAITLYN: 91 cm/sec; [...] 125 mmHg Left Brachial: 111 mmHg Right SPORTS ADMINISTRATOR: Noncompressible Right DPA: 115 mmHg (SAMUEL 0.92) Left SPORTS ADMINISTRATOR: Noncompressible Left DPA: Noncompressible SAMUEL: 1.0-1.4 - normal 0.9-0.99 - borderline 0.80-0.89 - mild 0.50-0.79 - moderate 0.30-0.49 - severe < 0.30 - critical RIGHT: RETAIL HELPER PROX: 204 cm/sec; triphasic waveforms RETAIL HELPER DIST: 138 cm/sec; triphasic waveforms PFA: 97 cm/sec; triphasic waveforms SFA PROX: 140, 111 cm/sec; triphasic waveforms SFA MID: 113, 74 cm/sec; triphasic waveforms SFA DIST: 107, 113 cm/sec; triphasic waveforms POP PROX: 105 cm/sec; triphasic waveforms POP DIST: 89 cm/sec; triphasic waveforms SPORTS ADMINISTRATOR: 32 cm/sec; triphasic waveforms KAITLYN: 58 cm/sec; triphasic waveforms DPA: 56 cm/sec; triphasic waveforms LEFT: RETAIL HELPER PROX: 193 cm/sec; triphasic waveforms RETAIL HELPER DIST: 152 cm/sec; triphasic waveforms PFA: 98 cm/sec; triphasic waveforms SFA PROX: 119, 109 cm/sec; triphasic waveforms SFA MID: 103, 102 cm/sec; triphasic waveforms SFA DIST: 103, 100 cm/sec; triphasic waveforms POP PROX: 124 cm/sec; triphasic waveforms POP DIST: 85 cm/sec; triphasic waveforms SPORTS ADMINISTRATOR: 169 cm/sec; triphasic waveforms KAITLYN: 91 cm/sec; [...] 01/14/2024 4:57:16 PM (Electronically Signed) Freya Schafer PROCESSING ASSISTANT US * US RENAL AND BLADDER COMPLETE [...] 01/14/2024 2:34:58 AM (Electronically Signed) Barbara Holcomb PROCESSING ASSISTANT US * XR FOOT 3 VIEWS LEFT [...] CDT) CULTURE RESULT(A) 01/16/2024 2:44 PM CDT [facility] CULTURE 3+ Corynebacterium striatum 01/16/2024 2:44 PM CDT [facility] CULTURE 2+ Mixed oni present 01/16/2024 2:44 PM CDT [facility] GRAM STAIN No PMNs 01/16/2024 2:44 PM CDT [facility] GRAM STAIN 2+ RBCs 01/16/2024 2:44 PM CDT [facility] GRAM STAIN No Epithelial cells 01/15 2:44 PM CDT [facility] GRAM STAIN 2+ Gram Positive Bacilli 01/16/2024 2:44 PM CDT [facility] Other (Other) Non-Blood / Unknown 01/13/2024 11:49 AM CDT 01/13/2024 12:00 PM CDT Narrative [facility] - 01/16/2024 2:44 PM CDT Mixed oni; No Staphylococcus aureus, beta-Streptococcus, Streptococcus pneumoniae, or Pseudomonas aeruginosa isolated. Freya Schafer NP MICROBIOLOGY [facility] [address] [place] [address], * ANAEROBIC CULTURE (01/13/2024 11:49 AM CDT) CULTURE No anaerobes isolated 01/19/2024 10:01 AM CDT [facility] Other (Other) Non-Blood / Unknown 01/13/2024 11:49 AM CDT 01/13/2024 12:00 PM CDT Freya Schafer NP MICROBIOLOGY [facility] [address] [place] [address], * (ABNORMAL) Electrolytes Panel - DKA (01/13/2024 10:53 AM CDT) Only the most recent of3 resultswithin the time period is included. SODIUM 140 136 - 145 mmol/L 01/13/2024 11:36 AM CDT [facility] POTASSIUM 5.2(H) 3.5 - 5.1 mmol/L 01/13/2024 11:36 AM CDT [facility] CHLORIDE 107 98 - 107 mmol/L 01/13/2024 11:36 AM CDT [facility] CO2,TOTAL 21(L) 22 - 29 mmol/L 01/13/2024 11:36 AM CDT [facility] ANION GAP 12 5 - 18 01/13/2024 11:36 AM CDT [facility] Blood BLOOD SPECIMEN / Unknown Non-Lab Venipuncture / Unknown 01/13/2024 10:53 AM CDT 01/13/2024 11:01 AM CDT Ifeanyi Hernández RN CHEMISTRY Performing Organization Address [facility] Co de Phone Number [facility] [address] [place] [address], * SCAN-CARDIAC STRIP (01/13/2024 8:00 AM CDT) Scanner OTHER * MAGNESIUM (01/13/2024 4:22 AM CDT) Only the most recent of2 resultswithin the time period is included. MAGNESIUM 1.9 1.6 - 2.4 mg/dL 01/13/2024 5:07 AM CDT [facility] Blood BLOOD SPECIMEN / Unknown Non-Lab Venipuncture / Unknown 01/13/2024 4:22 AM CDT 01/13/2024 4:41 AM CDT Ifeanyi Hernández RN CHEMISTRY Performing Organization Address City/[facility] Co de Phone Number [facility] [address] [place] [address], * (ABNORMAL) Serum Glucose - DKA (01/13/2024 1:52 AM CDT) Only the most recent of2 resultswithin the time period is included. Pathologist [facility] GLUCOSE,RANDOM 459(H) 70 - 139 mg/dL 01/13/2024 2:46 AM CDT [facility] Blood BLOOD SPECIMEN / Unknown Non-Lab Venipuncture / Unknown 01/13/2024 1:52 AM CDT 01/13/2024 2:03 AM CDT Emily Guzman MD CHEMISTRY Performing Organization Address City/[facility]/ZIP Co de Phone Number [facility] [address] [place] [address], [place] * (ABNORMAL) TROPONIN T (HS) ONE TIME (01/12/2024 11:39 PM CDT) [facility] TR[facility] HS 45(H) 6-10 ng/L ng/L 01/13/2024 12:22 AM CDT [facility] Blood BLOOD SPECIMEN / Unknown Non-Lab Venipuncture / Unknown 01/12/2024 11:39 PM CDT 01/12/2024 11:45 PM CDT Emily Guzman MD CHEMISTRY Performing Organization Address [facility] Co de Phone Number [facility] [address] [place] [address], [place] * 12 Lead EKG (01/12/2024 10:16 PM CDT) [facility] Interpretation Normal sinus rhythm Left axis deviation Abnormal ECG When compared with ECG of 02-Jan-2019 02:01, Nonspecific T wave abnormality now evident in Lateral leads BEYOND NOW Ventricular Rate 78 BPM BEYOND NOW Atrial Rate 78 BPM BEYOND NOW P-R Interval 160 ms BEYOND NOW QRS Duration 82 ms BEYOND NOW QT 400 ms BEYOND NOW QTc 456 ms BEYOND NOW P [place] 72 degrees BEYOND NOW R [place] -31 degrees BEYOND NOW T [place] 69 degrees BEYOND NOW 01/12/2024 10:1 6 PM CDT 01/13/2024 8:20 PM CDT Emily Guzman MD EKG ORD BEYOND NOW [place], [place] * MRSA/SA PCR (01/12/2024 10:07 PM CDT) MRSA DNA PCR Negative Negative 01/12/2024 11:33 PM CDT [facility] STAPHYLOCOCCUS AUREUS PCR Negative Negative 01/12/2024 11:33 PM CDT [facility] Other SPECIMEN FROM INTERNAL NOSE / Unknown Non-Blood / Unknown 01/12/2024 10:07 PM CDT 01/12/2024 10:13 PM CDT Narrative [facility] - 01/12/2024 11:33 PM CDT Test result does not preclude MRSA or SA nasal colonization. Chpaarro Sneed DO MICROBIOLOGY Performing Organization Address City/[facility]/ZIP Co de Phone Number [facility] [address] [place] [address], * (ABNORMAL) Urine Culture (01/12/2024 10:07 PM CDT) CULTURE RESULT(A) 01/16/2024 6:58 AM CDT [facility] CULTURE 10,000-50,000 CFU/mL Proteus mirabilis 01/16/2024 6:58 AM CDT [facility] CULTURE 50,000-100,000 CFU/mL Danita albicans 01/16/2024 6:58 AM CDT [facility] Urine URINE SPECIMEN / Unknown [...] Guzman MD MICROBIOL OGY Performing Organization Address City/[facility]/ZIP Co de Phone Number [facility] [address] [place] [address], [place] * Blood Culture (01/12/2024 9:40 PM CDT) Only the most recent of2 resultswithin the time period is included. CULTURE No Growth. 01/16/2024 11:23 PM CDT [facility] Blood BLOOD SPECIMEN / Unknown Venipuncture / Unknown 01/12/2024 9:40 PM CDT 01/12/2024 9:52 PM CDT Narrative [facility] - 01/16/2024 11:23 PM CDT Low volume blood culture received; possible false negative culture. Emily Guzman MD MICROBIOL OGY [facility] [address] [place] [address], [place] * (ABNORMAL) TROPONIN T(HS) ACUTE W/2HR REFLEX (01/12/2024 9:37 PM CDT) [facility] TROPONIN T HS 47(H) 6-10 ng/L ng/L 01/12/2024 10:16 PM CDT [facility] Blood BLOOD SPECIMEN / Unknown Non-Lab Venipuncture / Unknown 01/12/2024 9:37 PM CDT 01/12/2024 9:46 PM CDT [facility] - 01/12/2024 10:16 PM CDT hs-cTnT [...] department patient population. Emily Guzman MD CHEMISTRY [facility] [address] [place] [address], [place] * (ABNORMAL) CBC WITH AUTO DIFFERENTIAL (01/12/2024 9:37 PM CDT) WHITE BLOOD COUNT 14.9(H) 4.5 - 11.0 thou/cu mm 01/12/2024 9:54 PM CDT [facility] RED BLOOD COUNT 3.61(L) 4.00 - 5.20 mil/cu mm 01/12/2024 9:54 PM CDT [facility] HEMOGLOBIN 10.5(L) 12.0 - 16.0 g/dL 01/12/2024 9:54 PM CDT [facility] HEMATOCRIT 32.6(L) 33.0 - 51.0 % 01/12/2024 9:54 PM CDT [facility] MCV 90 80 - 100 fL 01/12/2024 9:54 PM CDT [facility] MCH 29.1 26.0 - 34.0 pg 01/12/2024 9:54 PM CDT [facility] MCHC 32.2 32.0 - 36.0 g/dL 01/12/2024 9:54 PM CDT [facility] RDW 13.2 11.5 - 15.5 % 01/12/2024 9:54 PM CDT [facility] PLATELET COUNT 273 140 - 440 thou/cu mm 01/12/2024 9:54 PM CDT [facility] MPV 11.0 6.5 - 11.0 fL 01/12/2024 9:54 PM CDT [facility] NRBC 0.0 % 01/12/2024 9:54 PM CDT [facility] ABS NRBC 0.0 thou /cu mm 01/12/2024 9:54 PM CDT [facility] % NEUT 80.3 % 01/12/2024 9:54 PM CDT [facility] % LYMPH 9.6 % 01/12/2024 9:54 PM CDT [facility] % MONO 9.2 % 01/12/2024 9:54 PM CDT [facility] % EOS 0.1 % 01/12/2024 9:54 PM CDT [facility] % BASO 0.1 % 01/12/2024 9:54 PM CDT [facility] % IMMATURE GRAN (METAS,MYELOS,RI OS) 0.7 % 01/12/2024 9:54 PM CDT [facility] ABSOLUTE NEUTROPHILS 12.0(H) 1.7 - 7.0 thou/cu mm 01/12/2024 9:54 PM CDT [facility] ABSOLUTE LYMPHOCYTES 1.4 0.9 - 2.9 thou/cu mm 01/12/2024 9:54 PM CDT [facility] ABSOLUTE MONOCYTES 1.4(H) <0.9 thou/cu mm 01/12/2024 9:54 PM CDT [facility] ABSOLUTE EOSINOPHILS 0.0 <0.5 thou/cu mm 01/12/2024 9:54 PM CDT [facility] ABSOLUTE BASOPHILS 0.0 <0.3 thou/cu mm 01/12/2024 9:54 PM CDT [facility] ABSOLUTE IMMATURE GRANULOCYTES(MET ,MYELOS,PROS) 0.1 <0.3 thou/cu mm 01/12/2024 9:54 PM CDT [facility] Blood BLOOD SPECIMEN / Unknown Non-Lab Venipuncture / Unknown 01/12/2024 9:37 PM CDT 01/12/2024 9:46 PM CDT Emily Guzman MD HEMATOLOG Y [facility] [address] [place] [address], * (ABNORMAL) BLOOD GAS,VENOUS (01/12/2024 9:37 PM CDT) PH, VENOUS 7.25(L) 7.32 - 7.43 01/12/2024 9:52 PM CDT [facility] PCO2, VENOUS 44 41 - 51 mmHg 01/12/2024 9:52 PM CDT [facility] PO2, VENOUS 48(H) 35 - 40 mmHg 01/12/2024 9:52 PM CDT [facility] HCO3,VENOUS 19(L) 22 - 29 mmol/L 01/12/2024 9:52 PM CDT [facility] BASE EXCESS, VENOUS, POCT -7.7(L) -2.0 - 3.0 01/12/2024 9:52 PM CDT [facility] O2 SATURATION, VENOUS 85(H) 70 - 75 % 01/12/2024 9:52 PM CDT [facility] INSPIRED O2 21 01/12/2024 9:52 PM CDT [facility] Comment:Unit of Measure: Lit ers (L) if <=20; Percent (%) if >20 PATIENT TEMPERATURE 36.9 Degrees C 01/12/2024 9:52 PM CDT [facility] Blood VENOUS BLOOD SPECIMEN / Unknown Non-Lab Venipuncture / Unknown 01/12/2024 9:37 PM CDT 01/12/2024 9:46 PM CDT Emily Guzman MD CHEMISTRY [facility] [address] [place] [address], * Protime - INR (01/12/2024 9:37 PM CDT) INR 1.0 <1.3 01/12/2024 9:56 PM CDT [facility] PROTIME 11.5 10.3 - 12.3 sec 01/12/2024 9:56 PM CDT [facility] Blood BLOOD SPECIMEN / Unknown Non-Lab Venipuncture / Unknown 01/12/2024 9:37 PM CDT 01/12/2024 9:46 PM CDT Narrative [facility] - 01/12/2024 9:56 PM [...] on UFH. Emily Guzman MD HEMATOLOG Y [facility] [address] [place] [address], * (ABNORMAL) HEMOGLOBIN A1C MONITORING (POCT) (01/12/2024 9:37 PM CDT) Only the most recent of2 resultswithin the time period is included. HEMOGLOBIN A1C MONITORING (POCT) 9.3(H) <=6.4 % 01/14/2024 10:29 AM CDT [facility] Blood BLOOD SPECIMEN / Unknown Non-Lab Venipuncture / Unknown 01/12/2024 9:37 PM CDT 01/12/2024 9:46 PM CDT [facility] - 01/14/2024 10:29 AM CDT ? [...] Splenectomy ? Barbara Holcomb NP CHEMISTRY [facility] [address] [place] [address], * (ABNORMAL) Hepatic Function Panel (01/12/2024 9:37 PM CDT) ALBUMIN 3.2(L) 4.0 - 4.9 g/dL 01/12/2024 10:16 PM CDT [facility] PROTEIN,TOTAL 6.4 6.0 - 8.0 g/dL 01/12/2024 10:16 PM CDT [facility] BILIRUBIN,TOTAL 0.2 0.0 - 1.2 mg/dL 01/12/2024 10:16 PM CDT [facility] BILIRUBIN,DIRECT <0.2 0.0 - 0.3 mg/dL 01/12/2024 10:16 PM CDT [facility] BILIRUBIN,INDIRE CT 01/12/2024 10:16 PM CDT [facility] Comment:Unable to calculate, Direct Bili <0.2 ALK PHOSPHATASE 122(H) 35 - 104 IU/L 01/12/2024 10:16 PM CDT [facility] ALT (SGPT) 21 10 - 35 IU/L 01/12/2024 10:16 PM CDT [facility] AST (SGOT) 20 10 - 35 IU/L 01/12/2024 10:16 PM CDT [facility] Blood BLOOD SPECIMEN / Unknown Non-Lab Venipuncture / Unknown 01/12/2024 9:37 PM CDT 01/12/2024 9:46 PM CDT Emily Guzman MD CHEMISTRY [facility] [address] [place] [address], [place] * SCAN-CARDIAC STRIP (01/12/2024 9:20 PM [...] health care provider. XR MAMMO BILAT SCREENING [[id number]] CLINICAL HISTORY: ??This is an asymptomatic 61 y.o. patient. INDICATION FOR EXAM: Mammogram Screening. TECHNIQUE: CC & MLO views were obtained. ??This study was evaluated with the assistance of Computer-Aided Detection. COMPARISON FILM: Yes 03/02/18 [email or web address] [facility] FINDINGS: ??The breasts are extremely dense, which lowers the sensitivity of mammography. There are no dominant masses, suspicious micro calcifications or areas of architectural distortion. Shania Montiel MD MAMMO * LIPID PANEL W REFLEX MEASURED LDL (04/28/2022 1:44 PM CDT) CHOLESTEROL,TOTAL 139 100 - 199 mg/dL 04/30/2022 6:25 PM CDT [facility] TRIGLYCERIDES 141 <150 mg/dL 04/30/2022 6:25 PM CDT [facility] HDL CHOLESTEROL 42 >40 mg/dL 6:25 PM CDT [facility] NON-HDL CHOLESTEROL 97 <145 mg/dl 04/30/2022 6:25 PM CDT [facility] CHOL/HDL RATIO 3.31 <4.50 04/30/2022 6:25 PM CDT [facility] LDL CHOLESTEROL 69 <=130 mg/dL 04/30/2022 6:25 PM CDT [facility] VLDL CHOLESTEROL 28 <=30 mg/dL 04/30/2022 6:25 PM CDT [facility] PROVIDER ORDERED STATUS RANDOM 04/30/2022 6:25 PM CDT [facility] Blood BLOOD SPECIMEN / Unknown Venipuncture / Unknown 04/28/2022 1:44 PM CDT 04/28/2022 1:45 PM CDT Shania Montiel MD CHEMISTRY Performing Organization Address City/[facility]/ZIP Co de Phone Number [facility] [address] [place] [address], * FECAL DNA (AKA COLOGUARD) (11/10/2021 1:00 PM CDT) Shania Montiel MD COMMUNICATION ORD * ANTI HCV [[id number]] (02/16/2018 4:20 PM CDT) HEPATITIS C ANTIBODY Non-React alex Non-React alex 02/17/2018 2:48 PM CDT [facility] Comment:Antibodies to HCV no t detected; does not exclude the possibility of exposure to HCV. Blood BLOOD SPECIMEN / Unknown Butterfly / Unknown 02/16/2018 4:20 PM CDT 02/16/2018 4:20 PM CDT Coleman Plata MD SEND OUTS [facility] [address] [place] [address], * HIV 1&2 TODAY (07/21/2015 9:40 AM HOME ENERGY RATER) Pathologist [facility] HIV-1/HIV-2 ANTIBODY Non-Reacti ve Non-Reacti ve 07/21/2015 10:31 AM HOME ENERGY RATER [facility] Blood specimen (specimen) BLOOD SPECIMEN / Unknown Venipuncture / Unknown 07/21/2015 9:40 AM HOME ENERGY RATER 07/21/2015 9:47 AM HOME ENERGY RATER Narrative [facility] - 07/21/2015 10:31 AM HOME ENERGY RATER HIV-1 p24 and HIV-1/HIV-2 Ab not detected Kait Morales DO SEND OUTS [facility] [address] [place] [address], * BITUMEN PLANT OPERATOR THIN PREP PAP SCREEN IMAGED (08/17/2012 4:02 PM HOME ENERGY RATER) Pathologist [facility] CYTOLOGY CYTOPATHOLOGY REPORT [facility] Status: Final Status ?[id number] CLINICAL INFORMATION Last Date of LMP ? :07/03/2012 Last Pap Date ?:02/01/2011 Last Pap Result ?:NIL ABN [place]/Bx Past 5 YRS :None Hormone Usage ?:BCP/OCP/Patch/R ing Menstrual Status ? :Regular Periods [place]/Bx done today ? :No Additional Information :None [...] ? ACCESSIONED: ??08/18/12 ?? SIGNED: ??08/21/12 [facility] PAP [place] CODE NIL [facility] Tissue specimen (specimen) (Cervical/Vagina l) 08/17/2012 4:02 PM HOME ENERGY RATER 08/17/2012 4:00 PM HOME ENERGY RATER Coleman Plata MD PATHOLOGY/CYTOLOGY [facility] INTERNAL ZIP [id number] [place] [phone] from Last 3 Months or Most Recently [...] Urine earlier this year (per report from [facility], not available in CareEverywhere), 04/19/18 L cheek abscess exclusions for contact precaution discontinuation (if > 12 months since positive culture): resides in acute/fci care, receiving hemodialysis, has chronic open wounds/skin [...] 8:01 PM 07/15/2012 6:55 PM Care Teams Floor Refinisher Relationship Specialty Start Date End Date BarbieBarbara DO Patricia [address] [place] [address] PCP - General Family Practice 11/15/22 Julio Ibrahim MD [address] [place] [address] Surgery - Orthopedics 02/01/11 Chuy Doss MD [address] [place] [address] Surgery - Vascular 02/01/11 Markel Strong MD [address] [place] [address] Provider Family Practice 08/08/20 Nikolai Ibarra MD [address] [facility] [address] [place] [address] Endocrinology 09/07/22 [facility] [address] [place] [address] 01/17/24 Suad Ng/ [employer] CM Shrimping Boat Captain 07/14/17 [facility] Home Health Nurse 07/01/17 [facility] RODDING ANODE WORKER Services Home Health Aide 07/14/17 [facility] [employer] Kettle Tender/ Ally Christianson [address] [place] [address] Shrimping Boat Captain 07/07/17
== END 2024-03-16 18:56 | disposition home or self-care (01) ==
PROVIDERS: PCP Family Medicine; Visit Provider Student in an Organized Health Care Education/Training Program
DX: R06.09 Other forms of dyspnea (principal)
CPT/HCPCS: A0425; A0427

== ENCOUNTER 2024-03-16 19:17 | Inpatient (IN) | payer OTHER, SELFPAY ==
[2024-03-16] VITALS (22 sets, daily range): BP systolic 153–168; BP diastolic 61–79; PULSE 77–84; RESP 20–24; TEMP 36.7–36.8; O2SAT 75–93; BMI 48.8; BMI 39.1
--- NOTE | 2024-03-16 19:36 | CRLHL7_ITS ---
For Patients: As a result of the Cures Act, medical imaging exams and procedure reports are released immediately into your electronic medical record. You may view this report before your referring provider. If you have questions, please contact your health care provider. Indication: Shortness of breath Technique: Single view of the chest Comparison: Chest radiograph performed 12/08/2023 Findings/Impression: Cardiomegaly and diffuse airspace disease suspicious for pulmonary edema. Superimposed infection not excluded. Dictated by Jose Betancourt MD @ 03/16/2024 9:22:11 PM (Electronically Signed)
--- NOTE | 2024-03-16 19:39 | ED_ITS ---
HPI - SOB/Dyspnea General Chief Complaint: Shortness of Breath/Dyspnea Stated Complaint: Shortness of breath Time Seen by Provider: 03/16/24 19:31 History of Present Illness HPI Narrative: This 63-year-old female comes in with shortness of breath that she states began a couple days ago. She arrives here with oximetry at 75% on room air. Her oximetry improved into the low 90s% with oxygen by mask. She states that she has an occasional cough. She does not report any chest pain or leg swelling. She has not had any fevers. She does not use oxygen at home but does have a CPAP machine for sleep apnea. She does have a history of COPD. Related Data Home Medications ?Medication ?Instructions ?Recorded ?Confirmed amlodipine 2.5 mg tablet 2.5 mg PO BID 10/11/22 12/28/23 atorvastatin 20 mg tablet 20 mg PO QPM 10/11/22 12/28/23 buprenorphine 5 mcg/hour weekly 1 patch transdermal Q7D 10/11/22 12/28/23 transdermal patch cetirizine 5 mg tablet 5 mg PO DAILY 10/11/22 12/28/23 cholecalciferol (vitamin D3) 50 50 mcg PO DAILY 10/11/22 12/28/23 mcg (2,000 unit) capsule duloxetine 60 mg capsule,delayed 60 mg PO DAILY 10/11/22 12/28/23 release losartan 25 mg tablet 12.5 mg PO DAILY 10/11/22 12/28/23 metoprolol succinate 25 mg 25 mg PO DAILY 10/11/22 12/28/23 tablet,extended release 24 hr omeprazole 20 mg capsule,delayed 20 mg PO DAILY 10/11/22 12/28/23 release oxycodone 5 mg tablet 5 mg PO BID PRN 10/11/22 12/28/23 polyethylene glycol 3350 17 17 g PO BID 10/11/22 12/28/23 gram/dose oral powder (Miralax) pregabalin 100 mg capsule 200 mg PO QAM 10/11/22 12/28/23 pregabalin 50 mg capsule 150 mg PO HS 10/11/22 12/28/23 sennosides 8.6 mg-docusate sodium 2 tab PO BID 10/11/22 12/28/23 50 mg tablet (Stool Softener-Stimulant Laxative) torsemide 20 mg tablet 40 mg PO DAILY 10/11/22 12/28/23 vitamin B12 2,500 mcg-folic acid 1 tab PO DAILY 10/11/22 12/28/23 400 mcg disintegrating tablet acetaminophen 650 mg 1,300 mg PO Q8H 12/19/22 12/28/23 tablet,extended release insulin glargine 100 unit/mL (3 15 unit subcut QPM 05/25/23 12/28/23 mL) subcutaneous pen (Lantus Solostar U-100 Insulin) levothyroxine 125 mcg tablet 125 mcg PO DAILY 05/25/23 12/28/23 Previous Rx's ?Medication ?Instructions ?Recorded insulin aspart U-100 100 unit/mL 8 unit (0.08 mL) subcut TIDWM #15 12/21/22 (3 mL) subcutaneous pen (Novolog mL FlexPen U-100 Insulin aspart) Allergies Allergy/AdvReac Type Severity Reaction Status Date / Time ampicillin Allergy Mild Hives Verified 03/16/24 19:29 aspirin Allergy Unknown Verified 03/16/24 19:33 NSAIDS (Non-Steroidal Allergy Unknown Verified 03/16/24 19:33 Anti-Inflamma Review of Systems Status of ROS: Reports: 10 or more systems reviewed and unremarkable except as noted in History and below Narrative: Constitutional: No fevers, no weight gain or loss. Eyes: No discharge. No vision changes. HENT: No congestion, no sore throat, no ear pain. Cardiovascular: No chest pain, no palpitations. Respiratory: Shortness of breath with occasional cough and wheezes. Gastrointestinal: No abdominal pain, no vomiting, no diarrhea. Genitourinary: No dysuria, no hematuria. Musculoskeletal: Normal range of motion. Skin: No rashes, no pruritis. Neurological: No dizziness, weakness, sensory change, speech change. Endo/Heme/Allergies: No bruising or bleeding. No polydipsia. Pysch: no suicidality, no anxiety, no insomnia. All other systems reviewed and are negative. [facility] Medical History Hypertension ?I10 - Essential (primary) hypertension (ICD-10) Diabetes type I ?E10.9 - Type 1 diabetes mellitus without complications (ICD-10) Hyperosmolar syndrome ?E87.0 - Hyperosmolality and hypernatremia (ICD-10) Sleep apnea ?G47.30 - Sleep apnea, unspecified (ICD-10) Ulnar neuropathy ?G56.20 - Lesion of ulnar nerve, unspecified upper limb (ICD-10) Hyperlipidemia ?E78.5 - Hyperlipidemia, unspecified (ICD-10) Morbid obesity ?E66.01 - Morbid (severe) obesity due to excess calories (ICD-10) GERD (gastroesophageal reflux disease) ?K21.9 - Gastro-esophageal reflux disease without esophagitis (ICD-10) 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 diabetic neuropathic arthropathy (ICD-10) Depressive disorder ?F32.A - Depression, unspecified (ICD-10) COPD (chronic obstructive pulmonary disease) ?J44.9 - Chronic obstructive pulmonary disease, unspecified (ICD-10) Congestive heart failure (CHF) ?I50.9 - Heart failure, unspecified (ICD-10) Chronic pain syndrome ?G89.4 - Chronic pain syndrome (ICD-10) Chronic kidney disease, stage 1 ?N18.1 - Chronic kidney disease, stage 1 (ICD-10) Carpal tunnel syndrome ?G56.00 - Carpal tunnel syndrome, unspecified upper limb (ICD-10) Diabetic retinopathy ?E11.319 - Type 2 diabetes mellitus with unspecified diabetic retinopathy without macular edema (ICD-10) Anemia of other chronic disease ?D63.8 - Anemia in other chronic diseases classified elsewhere (ICD-10) Acute respiratory failure ?J96.00 - Acute respiratory failure, unspecified whether with hypoxia or hypercapnia (ICD-10) Surgical History History of thyroidectomy ?E89.0 - Postprocedural hypothyroidism (ICD-10) History of hip replacement ?Z96.649 - Presence of unspecified artificial hip joint (ICD-10) History of gastric bypass ?Z98.84 - Bariatric surgery status (ICD-10) History of section ?Z98.891 - History of uterine scar from previous surgery (ICD-10) Hx of cataract removal with insertion of prosthetic lens ?Z98.49 - Cataract extraction status, unspecified eye (ICD-10) ?Z96.1 - Presence of intraocular lens (ICD-10) History of carpal tunnel release ?Z98.890 - Other specified postprocedural states (ICD-10) History of knee replacement procedure of right knee ?Z96.651 - Presence of right artificial knee joint (ICD-10) Social History Narrative: Full Code. Lives with son Mitul, who would be medical decision maker if needed. What is your current living situation?: I presently have a place to live Problems where you live: no known problems Problems where you live details: no In the past 12 months, utilities in danger of being shut off: declined to answer In past 12 months, lack of transportation kept you from medical appts, meetings, work, or getting things needed for daily living: no In the past 12 mos, have been you worried that your food would run out before you had money to buy more?: declined to answer In the past 12 mos, the food you bought just didn't last and you didn't have money to buy more?: declined to answer Smoking Status: Never smoker Do you use any of these nicotine containing products: None Second hand tobacco smoke exposure: No How often do you have a drink containing alcohol: never AUDIT-C Alcohol total score: 0 Non-prescribed substance use: denies use How often does anyone, including family, friends and others, physically hurt you : never How often does anyone, including family, friends and others, insult or talk down to you: never How often does anyone, including family, friends and others, threaten you with harm: never How often does anyone, including family, friends and others, scream or curse at you: never Exam Narrative: Exam Narrative: Constitutional: Well-developed, well-nourished, no acute distress. HEENT: Normocephalic, atraumatic. Neck: Normal range of motion. Nontender. Supple. Heart: Regular. No murmurs. Normal rate. Intact distal pulses. Lungs: Clear to auscultation. No chest discomfort. No wheezes, rhonchi, or rales. Abdomen: Normal bowel sounds. Nontender. No rebound tenderness. Genitalia: Deferred. Back: No midline tenderness. Normal range of motion. Extremities: Normal range of motion. No injury. Skin: Intact. No rash. Warm. No erythema or pallor. Neurologic: No altered sensation. No weakness. Alert and oriented. Psychiatric: No suicidality. No anxiety or depression. No insomnia. Nursing notes and vitals signs are reviewed. Const: Vital Signs, click to edit/add: Vital Signs - 24 hr 03/16/24 19:20 Temperature 98.0 F Pulse Rate [Pulse Oximeter] 80 Respiratory Rate 20 Blood Pressure [Ri ght Upper Arm] 153/71 H Pulse Oximetry 75 L Oxygen Delivery Me thod Room Air Course Vital Signs Vital signs: Initial Vital Signs Temperature 98.0 F 03/16/24 19:20 Temperature Source Temporal Artery Scan 03/16/24 19:20 Pulse Rate 80 03/16/24 19:20 Respiratory Rate 20 03/16/24 19:20 Blood Pressure 153/71 H 03/16/24 19:20 Blood Pressure Mean 98 03/16/24 19:20 Blood Pressure Position Supine 03/16/24 19:20 Pulse Oximetry 75 L 03/16/24 19:20 Oxygen Delivery Method Room Air 03/16/24 19:20 Vital Signs Temperature 98.0 F 03/16/24 19:20 Pulse Rate 80 03/16/24 19:20 Respiratory Rate 20 03/16/24 19:20 Blood Pressure 153/71 H 03/16/24 19:20 Pulse Oximetry 75 L 03/16/24 19:20 Oxygen Delivery Method Room Air 03/16/24 19:20 Temperature 98.0 F 03/16/24 19:20 Pulse Rate 80 03/16/24 19:20 Respiratory Rate 20 03/16/24 19:20 Blood Pressure 153/71 H 03/16/24 19:20 Pulse Oximetry 75 L 03/16/24 19:20 Oxygen Delivery Method Room Air 03/16/24 19:20 Medications Administered Medications: Discontinued Medications Generic Name Dose Route Start Last Admin Trade Name Freq PRN Reason Stop Dose Admin Albuterol/Ipratropium 1 neb 03/16/24 20:16 03/16/24 20:51 Iprat-Albut 0.5-2.5 Mg/3 Ml Neb IH 03/16/24 20:17 1 neb ONCE ONE Administration Dexamethasone 10 mg 03/16/24 19:35 03/16/24 20:46 Dexamethasone 4 Mg/Ml Vial IV 03/16/24 19:36 10 mg ONCE ONE Administration MDM - SOB/Dyspnea MDM Narrative Medical decision making narrative: This patient comes in with hypoxia and oximetry at 75% on room air. She was on a mask with 6 L and then 10 L to maintain oximetry in the low 90s%. She does use CPAP at night and so CPAP was ordered here and titrated to 30% oxygen. Chest x-ray does show evidence of pulmonary edema. The patient did receive an IV dose of Lasix 80 mg here. She has normal white count and a chronic anemia with hemoglobin at 9.6. Her glucose is elevated at 430. She did receive a DuoNeb treatment and an IV dose of dexamethasone 10 mg. Her glucose will increase with this treatment of course. She does not appear to be using accessory muscles for breathing and is in no acute distress but is benefiting from the support of her breathing. I did speak with Dr. Javed who agrees to her admission into the hospital. Lab Data Labs: Lab Results 03/16/24 03/16/24 Range/Units 20:07 20:25 WBC 7.27 (4.50-11.00) K/uL RBC 3.28 L (4.00-5.20) m/uL Hgb 9.6 L (12.0-16.0) gm/dL Hct 30.6 L (33.0-51.0) % MCV 93 (80-100) fL MCH 29 (26-34) pg MCHC 31 L (32-36) gm/dL RDW Coeff of Stefan 13.4 (11.5-15.5) % Plt Count 262 (140-440) K/uL Neut % (Auto) 79.3 H (42.0-72.0) % Lymph % (Auto) 9.8 L (20-44) % [place] % (Auto) 8.1 (0.0-11.0) % Eos % (Auto) 2.6 (0.0-7.0) % Baso % (Auto) 0.1 (0.0-3.0) % Neut # (Auto) 5.80 (1.7-7.0) K/uL Lymph # (Auto) 0.70 L (0.90-2.90) K/uL [place] # (Auto) 0.60 (0.00-0.90) K/UL Eos # (Auto) 0.19 (0.00-0.50) K/uL Baso # (Auto) 0.01 (0.00-0.30) K/uL Abs Immat Gran (auto) 0.01 (0.00-0.30) K/uL Imm/Tot Granulo (auto) 0.1 % VBG pH 7.349 (7.32-7.43) VBG pCO2 52 H (40-50) mmHG VBG pO2 < 30.1 (25-47) mmHG VBG HCO3 29 H (21-28) mmol/L Sodium 135 (135-149) mmol/L Potassium 5.5 H (3.6-5.1) mmol/L Chloride 100 (96-114) mmol/L Carbon Dioxide 27 (20-32) mmol/L Anion Gap 8 (7-15) mEq/L BUN 29 (7-30) mg/dL Creatinine 1.6 H (0.5-1.5) mg/dL Estimated Creat Clear 26.19 Estimated GFR 36 ml/min Glucose 430 H* (60-115) mg/dL Calcium 8.8 (8.4-10.6) mg/dL NT-Pro-B Natriuret Pep 1380 pg/mL SARS-CoV-2 (PCR) Negative SARS-CoV-2 (Negative) Influenza Type A (PCR) Negative PCR FLU A (Negative) Influenza Type B (PCR) Negative PCR FLU B (Negative) RSV (PCR) Negative PCR RSV (Negative) POC Troponin I 0.00 L (0.01-0.04) ng/ml ECG Data Attestation: I personally reviewed and interpreted this ECG as follows: Interpretation: Normal sinus rhythm. Rate is 81 beats per minute. There are no ST or T-wave abnormalities. Discharge Plan Discharge Clinical Impression: COPD (chronic obstructive pulmonary disease), Pulmonary edema, Hypoxia Patient Disposition: Admitted As Inpatient Condition: Unchanged Prescriptions: No Action atorvastatin 20 mg tablet 20 mg PO QPM torsemide 20 mg tablet 40 mg PO DAILY cetirizine 5 mg tablet 5 mg PO DAILY sennosides-docusate sodium [Stool Softener-Stimulant Laxat] 8.6-50 mg tablet 2 tab PO BID losartan 25 mg tablet 12.5 mg PO DAILY omeprazole 20 mg capsule,delayed release(DR/EC) 20 mg PO DAILY metoprolol succinate 25 mg tablet extended release 24 hr 25 mg PO DAILY oxycodone 5 mg tablet 5 mg PO BID PRN duloxetine 60 mg capsule,delayed release(DR/EC) 60 mg PO DAILY pregabalin 50 mg capsule 150 mg PO HS pregabalin 100 mg capsule 200 mg PO QAM cholecalciferol (vitamin D3) 50 mcg (2,000 unit) capsule 50 mcg PO DAILY buprenorphine 5 mcg/hour patch weekly 1 patch transdermal Q7D polyethylene glycol 3350 [Miralax] 17 gram/dose powder 17 g PO BID amlodipine 2.5 mg tablet 2.5 mg PO BID vitamin [id number] acid 2,500-400 mcg tablet,disintegrating 1 tab PO DAILY levothyroxine 125 mcg tablet 125 mcg PO DAILY insulin glargine [Lantus Solostar U-100 Insulin] 100 unit/mL (3 mL) insulin pen 15 unit subcut QPM acetaminophen 650 mg tablet extended release 1,300 mg PO Q8H insulin aspart U-100 [Novolog FlexPen U-100 Insulin] 100 unit/mL (3 mL) Insulin Pen 8 unit subcut TIDWM Qty: 15 0RF Follow Up/Referrals: Barbara Valentin DO [Primary Care Provider] -
--- OUTSIDE RECORDS SUMMARY | 2024-03-16 19:53 | XMS_ITS | Clinical Summary ---
Author Organization [facility] [place] Address [address] [facility] [place] [address] Phone Care Team Providers Care Railway Engineer Name Role Phone Barbara Valentin DO Primary Care Provider [phone] Allergies Active Allergy Reactions Criticality Noted Date [...] One Pack) 3 MG/DOSE powder Inhale 1 [place] into affected nostril(s) each time if needed [...] Team Description 02/01/2024 Telephone [facility] [address] [facility] [address] [place] [phone] Gabriel Hicks MD 01/23/2024 Documentation Only [facility] [address] [facility] [address] [place] [phone] Ronnell Kirby 01/23/2024 Office Communication [facility] [address] [facility] [address] [place] [phone] Ronnell Kirby from Last 3 Months Immunizations [...] LAB BLOOD ORDERAB LES Performing Organization Address City/[facility]/ZIP Co de Phone Number ALLINA * [...] BESSY from Last 3 Months Care Teams Railway Engineer Relationship Specialty Start Date End Date Barbara Valentin DO [address] [place] [address] PCP - General Family Medicine 09/22/23
--- OUTSIDE RECORDS SUMMARY | 2024-03-16 19:53 | XMS_ITS | Encounter Summary ---
Author Organization [facility] Address [address] [place] [address] Care Team Providers Care Hogshead Mat Inspector Name Role Phone Barbara Valentin DO Primary Care Provider Encounter Details Date Type Department Care Team (Late st Contact Info) Description 02/01/2024 Telephone [facility] [place] [address] [place] [address] Gabriel Hicks MD [address] [place] [address] Social History Tobacco Use Types [...] on filedocumented in this encounter Care Teams Hogshead Mat Inspector Relationship Specialty Start Date End Date Barbara Valentin DO [address] [place] [address] PCP - General Family Medicine 09/22/23 documented as of this encounter
--- OUTSIDE RECORDS SUMMARY | 2024-03-16 19:54 | XMS_ITS | Encounter Summary ---
Author Organization [facility] [place] Address [address] [place] [address] Care Team Providers Care Block Operator Name Role Phone Barbara Valentin DO Primary Care Provider [phone] Encounter Details Date Type Department Care Team (Late st Contact Info) Description 01/23/2024 Documentation Only [facility] [place] [address] [place] [address] Ronnell Kirby [address] [place] [address] Social History Tobacco Use Types [...] BLOOD ORDERAB LES Performing Organization Address [facility]/ZIP Co de Phone Number [facility] * (ABNORMAL) Creatine (01/17/2024) Creatine, Serum 1.28(H) [facility] GFR Calculated 47(L) [facility] Blood (Blood, Venous) 01/17/2024 Historical Provider MD LAB BLOOD ORDERAB LES Performing Organization Address [facility]/State/ZIP Co de Phone Number [facility] * (ABNORMAL) Creatine (01/16/2024) Creatine, Serum 1.28(H) [facility] GFR Calculated 47(L) [facility] Blood (Blood, Venous) 01/16/2024 Historical Provider MD LAB BLOOD ORDERAB LES Performing Organization Address [facility] Co de Phone Number [facility] * (ABNORMAL) Creatine (01/15/2024) Creatine, Serum 1.71(H) [facility] GFR Calculated 34(L) [facility] Blood (Blood, Venous) 01/15/2024 Historical Provider MD LAB BLOOD ORDERAB LES Performing Organization Address [facility] Co de Phone Number [facility] * (ABNORMAL) Hemoglobin (01/15/2024) Hemoglobin 8.4(L) g/dL [facility] MCV 91.0 [facility] Blood (Blood, Venous) 01/15/2024 Historical Provider MD LAB BLOOD ORDERAB LES Performing Organization Address [facility] Co de Phone Number [facility] * [...] BLOOD ORDERAB LES Performing Organization Address [facility] Co de Phone Number [facility] * (ABNORMAL) CBC (01/14/2024) WBC 8.5 K/uL [facility] Red Blood Cell Count 3.04(L) [facility] Hemoglobin 8.9(L) g/dL [facility] Hematocrit 27.5(L) % [facility] MCV 91 [facility] MCH 29.3 [facility] MCHC 32.4 [facility] RDW 14.4 [facility] Platelet Count 198 [facility] MPV 11.4(H) [facility] Blood (Blood, Venous) 01/14/2024 Historical Provider MD LAB BLOOD ORDERAB LES Performing Organization Address [facility] Co de Phone Number [facility] * [...] BLOOD ORDERAB LES Performing Organization Address [facility] de Phone Number [facility] * (ABNORMAL) [...] BLOOD ORDERAB LES Performing Organization Address [facility] Co de Phone Number [facility] * [...] filedocumented in this encounter Care Teams Block Operator Relationship Specialty Start Date End Date Barbara Valentin DO [address] [place] [address] PCP - General Family Medicine 09/22/23 documented as of this encounter
--- OUTSIDE RECORDS SUMMARY | 2024-03-16 19:54 | XMS_ITS | Encounter Summary ---
Author Organization [facility] Address [address] [place] [address] Care Team Providers Care High Energy Forming Equipment Operator Name Role Phone Barbara Valentin DO Primary Care Provider [phone] Encounter Details Date Type Department Care Team (Late st Contact Info) Description 01/23/2024 Office Communication [facility] [place] [address] [place] [address] Ronnell Kirby [address] [place] [address] Social History Tobacco Use Types [...] on filedocumented in this encounter Care Teams High Energy Forming Equipment Operator Relationship Specialty Start Date End Date Barbara Valentin DO [address] [place] [address] PCP - General Family Medicine 09/22/23 documented as of this encounter
--- OUTSIDE RECORDS SUMMARY | 2024-03-16 19:54 | XMS_ITS | Encounter Summary ---
Author Organization [facility] Address [address] [place] [address] Care Team Providers Care Buildings And Grounds Superintendent Name Role Phone Barbara Valentin DO Primary Care Provider [phone] Encounter Details Date Type Department Care Team (Late st Contact Info) Description 09/22/2023 Documentation Only [facility] [place] [address] [facility] [address] [place] [address] No, Pcp Social History Tobacco [...] on filedocumented in this encounter Care Teams Buildings And Grounds Superintendent Relationship Specialty Start Date End Date Barbara Valent[place] [address] PCP - General Family Medicine 09/22/23 documented as of this encounter
--- OUTSIDE RECORDS SUMMARY | 2024-03-16 19:54 | XMS_ITS | Clinical Summary ---
Author Organization [employer] [facility] s & [facility]ates Address [place], [place] [address] Care Team Providers Care Customer Relations Coordinator Name Role Phone Julio Ibrahim MD Unavailable Chuy Doss MD Unavailable [phone] Markel Strong MD Unavailable Nikolai Ibarra MD Unavailable [phone] Barbara Valentin Patricia DO Primary Care Provider [phone] [facility] [place] Unavailable Allergies Active Allergy Reactions Criticality Noted [...] u-100 (UltiCare) 1 mL 31 gauge x 11/16Indications:D iabetes mellitus type 1 with complications (HC) For administering insulin at home.FOR ADMINISTERING INSULIN SUBCUTANEOUSLY AT HOME 100 Each 03/02/20 21 Active glucagon (Baqsimi) 3 mg/actuation nasal sprayIndications: patient with diabetes mellitus at risk of hypoglycemia Inhale 1 [place] into affected nostril(s) each time if needed for Severe Hypoglycemia. Roll on side and call 911 after administration. 2 Each 11 12/25/19 22 Active fluticasone (50 mcg per actuation) nasal solution (FLONASE)Indicati ons:Nasal congestion Inhale 1 [place] into affected nostril(s) once daily. Inhale 1 [place] in the nostril(s) once daily. 16 g [...] MIN. 2 Each 2 01/29/20 23 Active amLODIPine (NORVASC) 2.5 mg tabletIndications :Essential hypertension Take 1 Tablet (2.5 mg) by mouth two times daily. 180 Tablet 3 02/29/20 23 Active sennosides-docusa te (Stool Softener-Stimulan t Laxat) (8.6-50 mg) tabletIndications :Chronic constipation TAKE TWO TABLETS BY MOUTH TWO TIMES DAILY NEEDED FOR CONSTIPATION. 360 Tablet 2 04/20/20 23 Active continuous glucose monitor READER (FreeStyle Elli 2 [place])Indication s:Type 1 diabetes mellitus with other specified complication (HC) To be used to read blood sugars per filter press supervisor's directions. 1 Each 05/19/20 23 Active blood-glucose meterIndications: Type 1 diabetes mellitus [...] day. 400 Each 3 05/19/20 23 Active lancetsIndication s:Type 1 diabetes mellitus [...] be used to read blood sugars per filter press supervisor's directions. 6 Each 3 09/06/19 24 Active [...] daily. 90 Tablet 3 12/29/19 24 Active buprenorphine 5 mcg/hr (Butrans) 5 [...] day 10 mL 3 02/08/20 24 Active naloxone (NARCAN) 4 mg/actuation nasal sprayIndications: Chronic, continuous use of opioids Inhale 1 [place] into affected nostril(s) each time if needed for Patient Diff To Arouse or Resp Rate < 8 / min. Additional doses may be given every 2 to 3 minutes until emergency medical assistance arrives. 2 Each 02/16/20 24 Active FLUoxetine (PROZAC) 10 mg capsuleIndication s:Moderate episode of recurrent major depressive disorder (HC) TAKE 1 CAPSULE (10 MG) BY MOUTH ONCE DAILY. 30 Capsule 03/16/20 24 Active DULoxetine (CYMBALTA) 60 mg Delayed-release capsuleIndication s:Adjustment disorder with mixed anxiety and depressed mood,Chronic pain syndrome Take 1 Capsule (60 mg) by mouth once daily. 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 B.I.D. / PRN For O.A. pain or Diabetic P.N. Pain ; max: 2 a day. Use dates: 03/22/24-04/20/24 60 Tablet 03/19/20 Active FLUoxetine (PROZAC) 10 mg capsuleIndication s:Moderate episode of recurrent major depressive disorder (HC) TAKE 1 CAPSULE (10 MG) BY MOUTH ONCE DAILY. 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 B.I.D. / PRN For O.A. pain or Diabetic P.N. Pain ; max: 2 a day. 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 B.I.D. / PRN For O.A. pain or Diabetic P.N. Pain ; max: 2 a day. Use dates: 02/21/24-03/21/24 60 Tablet 02/16/20 024 Discontinued(Re order (E-cancel not sent)) Active [...] agreement signed - 10/07/23 10/07/2023 Overview (10/07/2023): [facility] Noem[facility] Dennis .................... 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 11/27/2013 12/28/2013 Anticoagulation [...] Encounters Date Type Department Care Team Description 03/16/2024 Refill [facility] [address] [place] [address] Toshia Hooks NP Refill Request 03/14/2024 10:30 AM CDT Home Care Visit [facility] [address] [place] [address] Geneva Sanchez, RN SN - OASIS DISCHARGE 03/12/2024 Refill [facility] [address] [place] [address] Barbara Valentin, DO Refill Request (Pregabalin, Fluoxetine, Duloxetine) 03/06/2024 10:00 AM CDT Home Care Visit [facility] [address] [place] [address] Geneva Sanchez, RN SN - HOME VISIT 03/06/2024 9:15 AM CDT Home Care Visit [facility] [address] [place] [address] Alex Contreras SKIN WASHER - HOME VISIT 03/03/2024 Home Care Visit [facility] [address] [place] [address] Nitza Riojas LISW CARE COORDINATION 02/28/2024 2:00 PM CDT Home Care Visit [facility] [address] [place] [address] Shania Elaine, RN SN - HOME VISIT 02/28/2024 10:45 AM CDT Home Care Visit [facility] [address] [place] [address], [place] [address] Fabiola Mathis SKIN WASHER - HOME VISIT 02/25/2024 Home Care Visit [facility] [address] [place] [phone] Nitza Riojas LISW CARE COORDINATION 02/22/2024 3:00 PM CDT Home Care Visit [facility] [address] [place] [phone] Trini Hitchcock RN SN - HOME VISIT 02/22/2024 Home Care Visit [facility] [address] [place] [phone] Dar Phillips, OT OT - DISCIPLINE DISCHARGE 02/21/2024 9:45 AM CDT Home Care Visit [facility] [address] [place] [phone] Alex Contreras SKIN WASHER - HOME VISIT 02/20/2024 Home Care Visit [facility] [address] [place] [phone] Nitza Riojas LISW RN CORRECTIONS - INITIAL ASSESSMENT 02/16/2024 Refill [facility] [address] [place] [address] Toshia Hooks NP Refill Request (oxyCODONE (ROXICODONE) 5 mg immediate release tablet ) 02/15/2024 3:45 PM CDT Home Care Visit [facility] [address] [place] [phone] Coleman Greene, PT PT - DISCIPLINE DISCHARGE 02/15/2024 11:00 AM CDT Home Care Visit [facility] [address] [place] [phone] Geneva Sanchez, LOS SN - HOME VISIT 02/14/2024 12:00 PM CDT Home Care Visit [facility] [address] [place] [address] Joi Moreno COTA OT - HOME VISIT 02/14/2024 8:15 AM CDT Home Care Visit [facility] [address] [place] [address] Fabiola Mathis SKIN WASHER - HOME VISIT 02/10/2024 3:30 PM CDT Home Care Visit [facility] [address] [place] [address] Joi Moreno VARELA OT - HOME VISIT 02/10/2024 Home Care Visit [facility] [address] [place] [address] Nitza Riojas LISW RN CORRECTIONS - CASE COMMUNICATION 02/09/2024 Refill [facility] [address] [place] [address] Barbara Valentin DO Refill Request (Duloxetine) 02/08/2024 3:00 PM CDT Home Care Visit [facility] [address] [place] [phone] Veda Resendiz RN SN - WOUND/OSTOMY CHART CONSULT 02/08/2024 9:00 AM CDT Home Care Visit [facility] [address] [place] [phone] Geneva Sanchez RN SN - HOME VISIT 02/08/2024 Telephone [facility] [address] [place] [address] Barbara Valentin DO Pharmacist Medication Management (MEDICATION CHANGE) 02/08/2024 Telephone [facility] [address], [place] [address] Geneva Sanchez, softball winder List Update 02/07/2024 4:00 PM CDT Home Care Visit [facility] [address] [place] [address] Joi Moreno VARELA OT - HOME VISIT 02/07/2024 9:30 AM CDT Home Care Visit [facility] [address] [place] [address] Kendal Serna, PT PT - HOME VISIT 02/07/2024 Telephone [facility] [address] [place] [address] Shaqra, Barbara Patricia, DO Refill Request (Insulin lispro pens) 02/04/2024 Refill [facility] [address] [place] [address] Shaqra, Barbara Patricia, DO Refill Request (Insulin Lispro) 02/03/2024 9:00 AM CDT Home Care Visit [facility] [address] [place] [address] Joi Moreno VARELA OT - HOME VISIT 02/02/2024 11:00 AM CDT Home Care Visit [facility] [address] [place] [address] Kendal Serna, PT PT - HOME VISIT 02/01/2024 4:00 PM CDT Home Care Visit [facility] [address] [place] [address] Joi Moreno VARELA OT - HOME VISIT 01/31/2024 9:30 AM CDT Home Care Visit [facility] [address] [place] [address] Fabiola Mathis SKIN WASHER - HOME VISIT 01/31/2024 Home Care Visit [facility] [address] [place] [address] Oumou Burns, RN CARE COORDINATION 01/31/2024 Home Care Visit [facility] [address] [place] [address] Oumou Burns, LOS CARE COORDINATION 01/30/2024 10:45 AM CDT Home Care Visit [facility] [address] [place] [phone] Kendal Serna, PT PT - HOME VISIT 01/30/2024 9:00 AM CDT Home Care Visit [facility] [address] [place] [phone] Geneva Sanchez, LOS SN - INITIAL ASSESSMENT 01/25/2024 1:30 PM CDT Home Care Visit [facility] [address] [place] [phone] Coleman Greene, PT PT - HOME VISIT 01/25/2024 Travel 01/24/2024 1:00 PM CDT Home Care Visit [facility] [address] [place] [phone] Dar Phillips, OT OT - INITIAL ASSESSMENT 01/24/2024 9:30 AM CDT Home Care Visit [facility] [address] [place] [phone] Fabiola Mathis SKIN WASHER - HOME VISIT 01/24/2024 Home Care Visit [facility] [address] [place] [address] Narcisa Atkinson, RN CARE COORDINATION 01/23/2024 Home Care Visit [facility] [address] [place] [phone] Narcisa Atkinson, RN CARE COORDINATION 01/20/2024 Refill [facility] [address] [place] [address] Toshia Hooks NP Refill Request 01/18/2024 1:45 PM CDT Home Care Visit [facility] [address] [place] [phone] Kendal Serna, PT PT - OASIS START OF CARE 01/18/2024 10:30 AM CDT Phone Office Visit [facility] [address] [place] [address] Nikolai Ibarra MD 01/18/2024 Plan of Care Documentation [facility] [address] [place] [address] 01/18/2024 Patient Outreach [facility] [address] [place] [address] Maria R Ho, RN Primary RN Care Management; Hospital F/U (Lace 44) 01/18/2024 Travel 01/12/2024 9:13 PM CDT - 01/17/2024 5:23 PM CDT Hospital Encounter [facility] [address] [place] [address] Emily Guzman MD Litell, John Martin, DO [place], MD Dusty Manjarrez, MD Ricky Alston, Helder Hoover MD [facility] Hospitalists Of Opioid dependence, uncomplicated (HC) (Primary Dx); Nasal congestion; Chronic pain syndrome; Diabetic ketoacidosis without coma associated with type 1 diabetes mellitus (HC); 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, macular edema presence unspecified, unspecified laterality, unspecified proliferative retinopathy type (HC); Heel ulcer, right, with unspecified severity (HC) Discharge Disposition: [facility] 01/09/2024 Refill [facility] [address] [place] [address] Barbara Valentin DO Refill Request (Fluoxetine) 01/09/2024 Refill [facility] [address] [place] [address] Elian Humphrey MD Refill Request (Torsemide) 01/06/2024 4:00 PM CDT Office Visit [facility] [address] [place] [address] Toshia Hooks NP Follow Up; Pain (Multi source; was told by her Reproductive Surgeon she can ot use OTC Voltaren gel., which had been helping her O.A. pain (hands; wrists; shoulders; ) ) 01/06/2024 Travel 01/02/2024 Telephone [facility] [address] [place] [address] Barbara Valentin Patricia, DO Follow Up 12/27/2023 Refill [facility] [address] [place] [address] Barbara Valentin Patricia, DO Refill Request (Pregabalin, Cetirizine) 12/23/2023 2:35 PM CDT Office Visit [facility] [address] [place] [address] Sir Valentini Patricia, DO Diabetes (3 month check, labs); Rash (Rash under breasts? ) 12/23/2023 Travel 12/20/2023 Refill [facility] [address] [place] [address] Barbara Valentin Patricia, DO Refill Request (Humalog Kwikpen Insulin) 12/16/2023 Refill [facility] [address] [place] [address] Toshia Hooks, GISEL Refill Request (Patient son called requesting oxycodone 5 mg at [facility].////) 12/15/2023 Telephone [facility] [address] [place] [address] Sir Valentini Patricia, DO Lab from Last 3 Months Immunizations [...] Description 03/26/2024 3:25 PM CDT Office Visit [facility] [address] [place] [address] Barbara Valentin Patricia, DO [address] [place] [address] 05/04/2024 3:30 PM CDT Phone Office Visit [facility] [address] [place] [address] Nikolai Ibarra MD [address] [place], [place] [phone] Health Maintenance Due Date Last Done Comments [...] 03/18/2020, Additional history exists Fecal testing sDNA-FIT ([place] [employer] guard) for age 45-75 11/10/2024 11/10/2021 Pneumococcal series for age 6-64 (3 of 3 - PPSV23 or PCV20) 2026 08/17/2016, 08/14/2014, 07/04/2005, Additional history exists Lipids for age 45-75 04/28/2027 04/28/2022, 08/17/2019, 08/31/2018, Additional history exists Tdap Completed 08/25/2010 HIV for age 15-65 Completed 07/21/2015 Hepatitis C screening for ag e 18-79 Completed 02/16/2018 Medical Devices Implanted Type Area Loss Prevention Supervisor Device Identifier Shelf Expiration Date Model / Serial / Lot [id number] 2x12mm [[id number]] Implanted:Qty: 1 on 08/08/2008 at [facility] Explanted:at [facility] (Quantity not on file) [employer] [id number]# / [id number] / Stem Compnt Primary 8mm Mini - [id number] Implanted:Qty: 1 on 03/17/2011 at [facility] Right: Shoulder BIOMET [id number]# / / [id number] Head Hum Bio-Mod [id number] - [id number] Implanted:Qty: 1 on 03/17/2011 at [facility] Right: Shoulder BIOMET [id number]# / / [id number] Base Glenoid Hybrid 4mm Sm - [id number] Implanted:Qty: 1 on 03/17/2011 at [facility] Right: Shoulder BIOMET [id number]# / / [id number] Cmnt 1/2 [employer] - [id number] Implanted:Qty: 1 on 03/17/2011 at [facility] Right: Shoulder [employer] [id number] 0# / / [id number] Post Glenoid Hybrid Regenerex - [id number] Implanted:Qty: 1 on 03/17/2011 at [facility] Right: Shoulder BIOMET [id number] # / / [id number] Head Humeral 44x15 Co Cr Biomodular - [id number] Implanted:Qty: 1 on 07/12/2012 at [facility] Left: Shoulder BIOMET [id number]# / / [id number] Shoulder Stem Implanted:Qty: 1 on 07/12/2012 at [facility] Left: Shoulder [id number] / / [id number] Description:SHOULDER STEM Cmnt Bone 1/2 [employer] - [id number] Implanted:Qty: 1 on 07/12/2012 at [facility] Left: Shoulder [employer] 6188-1- 0# / / [id number] Post Glenoid Hybrid Regenerex - [id number] Implanted:Qty: 1 on 07/12/2012 at [facility] Left: Shoulder BIOMET PT-[id number] # / / [id number] Base Glenoid Hybrid 4mm Sm - [id number] Implanted:Qty: 1 on 07/12/2012 at [facility] Left: Shoulder BIOMET [id number]# / / [id number] Procedures Procedure Name Priority Date/Time Associated Diagnosis [...] HIV 1/2 Add On 07/21/2015 9:40 AM AUTOMATED CUTTING MACHINE OPERATOR LEAF SUCKER OPERATOR THIN PREP PAP SCREEN IMAGED Routine 08/17/2012 4:02 PM AUTOMATED CUTTING MACHINE OPERATOR Screening for malignant neoplasm of the [...] - 100 mg/dL 01/17/2024 11:35 AM CDT [facility] Blood BLOOD SPECIMEN / Unknown 01/17/2024 11:27 AM CDT 01/17/2024 11:35 AM CDT Helder García MD CHEMISTRY Performing Organization Address City/[facility]/ZIP Co de Phone Number [facility] [address] [place] [address], * (ABNORMAL) CREATININE (01/17/2024 8:20 AM CDT) Only the most recent of3 resultswithin the time period is included. eGFR 47(L) >90 mL/min/1.7 3m2 01/17/2024 9:06 AM CDT [facility] Comment:As of 2021, eG FR is calculated by the CKD-EPI creatinine equation without race adjustment. ??eGFR can be influenced by muscle mass, exercise, and diet. ??The reported eGFR is an estimation only and is only applicable if the renal function is stable. CREATININE 1.28(H) 0.50 - 0.90 mg/dL 01/17/2024 9:06 AM CDT [facility] Blood BLOOD SPECIMEN / Unknown Non-Lab Venipuncture / Unknown 01/17/2024 8:20 AM CDT 01/17/2024 8:26 AM CDT Helder García MD CHEMISTRY Performing Organization Address [facility] Co de Phone Number [facility] [address] [place] [address], [place] * PHOSPHORUS (01/17/2024 8:20 AM CDT) Only the most recent of5 resultswithin the time period is included. PHOSPHORUS 2.6 2.5 - 4.5 mg/dL 01/17/2024 9:06 AM CDT [facility] Blood BLOOD SPECIMEN / Unknown Non-Lab Venipuncture / Unknown 01/17/2024 8:20 AM CDT 01/17/2024 8:26 AM CDT Sarah Betancourt RN CHEMISTRY Performing Organization Address City/[facility]/ZIP Co de Phone Number [facility] [address] [place] [address], * (ABNORMAL) BASIC METABOLIC PANEL (01/17/2024 8:20 AM CDT) Only the most recent of5 resultswithin the time period is included. [facility] SODIUM 139 136 - 145 mmol/L 01/17/2024 12:35 PM CDT [facility] POTASSIUM 3.9 3.5 - 5.1 mmol/L 01/17/2024 12:35 PM T [facility] CHLORIDE 103 98 - 107 mmol/L 01/17/2024 12:35 PM CDT [facility] CO2,TOTAL 24 22 - 29 mmol/L 01/17/2024 12:35 PM T [facility] ANION GAP 12 5 - 18 01/17/2024 12:35 PM T [facility] GLUCOSE 162(H) 70 - 99 mg/dL 01/17/2024 12:35 PM T [facility] CALCIUM 8.7(L) 8.8 - 10.2 mg/dL 01/17/2024 12:35 PM T [facility] BUN 17 8 - 23 mg/dL 01/17/2024 12:35 PM T [facility] CREATININE 1.31(H) 0.50 - 0.90 mg/dL 01/17/2024 12:[address] [facility] BUN/CREAT RATIO 13 10 - 20 4 12:[address] [facility] eGFR 46(L) >90 mL/min/1.7 3m2 01/17/2024 12:35 PM T [facility] Comment: As of [...] Helder García MD CHEMISTRY Performing Organization Address [facility] Phone Number [facility] [address] [place] [address], * CLOSTRIDIOIDES DIFFICILE TOXIN PCR (01/16/2024 12:27 PM CDT) CLOSTRIDIUM DIFFICILE PCR Negative 01/16/2024 2:18 PM CDT [facility] PRESUMPTIVE NAP1 STRAIN Negative 01/16/2024 2:18 PM CDT [facility] Stool STOOL SPECIMEN / Unknown Non-Blood / Unknown 01/16/2024 12:27 PM CDT 01/16/2024 12:51 PM CDT Narrative [facility] - 01/16/2024 2:18 PM CDT The NAP1 (027 or BI) strain is a hypervirulent strain. Detection may be useful for epidemiological purposes. Helder García MD MICROBIOLOGY Performing Organization Address [facility] de Phone Number [facility] [address] [place] [address], * SCAN CORRESP-EKG RESULTS (01/16/2024 9:07 AM CDT) Narrative 01/16/2024 9:07 AM CDT Ordered by an unspecified provider. Other Clinical Staff OTHER * (ABNORMAL) HEMOGLOBIN (01/16/2024 6:30 AM CDT) Only the most recent of2 resultswithin the time period is included. HEMOGLOBIN 8.9(L) 12.0 - 16.0 g/dL 01/16/2024 7:13 AM CDT [facility] MCV 91 80 - 100 fL 01/16/2024 7:13 AM CDT [facility] Blood BLOOD SPECIMEN / Unknown Venipuncture / Unknown 01/16/2024 6:30 AM CDT 01/16/2024 6:58 AM CDT Fabrizio Montano MD HEMATOLOGY Performing Organization Address [facility] Co de Phone Number [facility] [address] [place] [address], [place] * VANCOMYCIN (01/16/2024 6:30 AM CDT) Only the most recent of3 resultswithin the time period is included. VANCOMYCIN 13.0 ug/mL 01/16/2024 7:42 AM CDT [facility] Comment:No Reference Range D efined. DATE OF LAST DOSE,RANDOM Not Given 01/16/2024 7:42 AM CDT [facility] TIME OF LAST DOSE,RANDOM Not Given 01/16/2024 7:42 AM CDT [facility] Blood BLOOD SPECIMEN / Unknown Venipuncture / Unknown 01/16/2024 6:30 AM CDT 01/16/2024 6:58 AM CDT Barbara Holcomb NP CHEMISTRY Performing Organization Address [facility] de Phone Number [facility] [address] [place] [address], [place] * (ABNORMAL) PLATELET COUNT (01/15/2024 6:02 AM CDT) PLATELET COUNT 166 140 - 440 thou/cu mm 01/15/2024 6:44 AM CDT [facility] MPV 11.2(H) 6.5 - 11.0 fL 01/15/2024 6:44 AM CDT [facility] Blood BLOOD SPECIMEN / Unknown Venipuncture / Unknown 01/15/2024 6:02 AM CDT 01/15/2024 6:26 AM CDT Fabrizio Montano MD HEMATOLOGY Performing Organization Address City/[facility]/ZIP Co de Phone Number [facility] [address] [place] [id number], [place] * WHITE BLOOD COUNT (01/15/2024 6:02 AM CDT) WHITE BLOOD COUNT 4.9 4.5 - 11.0 thou/cu mm 01/15/2024 6:44 AM CDT [facility] NRBC 0.0 % 01/15/2024 6:44 AM CDT [facility] ABS NRBC 0.0 thou /cu mm 01/15/2024 6:44 AM CDT [facility] Blood BLOOD SPECIMEN / Unknown Venipuncture / Unknown 01/15/2024 6:02 AM CDT 01/15/2024 6:26 AM CDT Fabrizio Montano MD HEMATOLOGY Performing Organization Address City/[facility] Co de Phone Number [facility] [address] [place], [place] [id number], [place] * Sodium AM (01/15/2024 6:02 AM CDT) SODIUM 142 136 - 145 mmol/L 01/15/2024 7:13 AM CDT [facility] Blood BLOOD SPECIMEN / Unknown Venipuncture / Unknown 01/15/2024 6:02 AM CDT 01/15/2024 6:27 AM CDT Fabrizio Montano MD CHEMISTRY Performing Organization Address City/[facility]/ZIP Co de Phone Number [facility] [address] [place] [id number], [place] * Potassium AM (01/15/2024 6:02 AM CDT) Only the most recent of3 resultswithin the time period is included. POTASSIUM 4.4 3.5 - 5.1 mmol/L 01/15/2024 7:13 AM CDT [facility] [facility] Blood BLOOD SPECIMEN / Unknown Venipuncture / Unknown 01/15/2024 6:02 AM CDT 01/15/2024 6:27 AM CDT Fabrizio Montano MD CHEMISTRY [facility] [address] [place] [address], * SCAN-CARDIAC STRIP (01/14/2024 7:07 AM CDT) Scanner OTHER * (ABNORMAL) CBC W PLT NO DIFF (01/14/2024 5:28 AM CDT) WHITE BLOOD COUNT 8.5 4.5 - 11.0 thou/cu mm 01/14/2024 6:33 AM CDT [facility] TRAL LABORATORY RED BLOOD COUNT 3.04(L) 4.00 - 5.20 mil/cu mm 01/14/2024 6:33 AM CDT [facility] TRAL LABORATORY HEMOGLOBIN 8.9(L) 12.0 - 16.0 g/dL 01/14/2024 6:33 AM T [facility] TRAL LABORATORY HEMATOCRIT 27.5(L) 33.0 - 51.0 % 01/14/2024 6:[address] [facility] TRAL LABORATORY MCV 91 80 - 100 fL 01/14/2024 6:33 AM T [facility] TRAL LABORATORY MCH 29.3 26.0 - 34.0 pg 01/14/2024 6:33 AM T [facility] TRAL LABORATORY MCHC 32.4 32.0 - 36.0 g/dL 01/14/2024 6:33 AM T [facility] TRAL LAB[facility]AT[facility] RDW 14.4 11.5 - 15.5 % 01/14/2024 6:33 AM T [facility]AL [facility] PLATELET COUNT 198 140 - 440 thou/cu mm 01/14/2024 6:33 AM T [facility] TR[facility] LAB[facility] MPV 11.4(H) 6.5 - 11.0 fL 01/14/2024 6:33 AM CDT [facility] TRAL LAB[facility]ATORY NRBC 0.0 % 01/14/2024 6:33 AM CDT [facility] ABS NRBC 0.0 thou /cu mm 01/14/2024 6:33 AM CDT [facility] Blood BLOOD SPECIMEN / Unknown Non-Lab Venipuncture / Unknown 01/14/2024 5:28 AM CDT 01/14/2024 6:31 AM CDT Barbara Holcomb NP HEMATOLOGY Performing Organization Address [facility] Co de Phone Number [facility] [address] [place] [address], * (ABNORMAL) CALCIUM IONIZED HOSPITAL DRAW ONLY (01/14/2024 5:28 AM CDT) Only the most recent of3 resultswithin the time period is included. CALCIUM,IONIZE D 1.30(H) 1.15 - 1.27 mmol/L 01/14/2024 6:03 AM CDT [facility] TR[facility] Blood BLOOD SPECIMEN / Unknown Non-Lab Venipuncture / Unknown 01/14/2024 5:28 AM CDT 01/14/2024 5:49 AM CDT Grace Eldridge MD CHEMISTRY Performing Organization Address [facility] Co de Phone Number [facility] [address] [place] [address], * ECHO TTE COMPLETE W CONTRAST (01/13/2024 3:56 PM CDT) AORTIC VALVE MEAN PG 7 mmHg EJECTION FRACTION 64 % LVEDD 4.1 cm EJECTION FRACTION 60 - 65% Anatomical Region Laterality Modality Ultrasound 01/13/2024 2:53 PM CDT Narrative 01/13/2024 4:39 PM CDT ECHOCARDIOGRAM MIKAYLA KUHN ? Accession#: ?? [id number] : ?1960 63 years Study Date: ?? 01/13/2024 2:53:14 PM Gender: F ?BP: ? 114/44 mmHg Height: 152.00 cm ?BSA: ?1.93 m? ? ? Weight: 98.00 kg ? Tech: ? KBA ? Referring MD: BARBARA HOLCOMB Site: ? [facility] Reading Location: ANW IP Patient Location: Inpatient. [...] ml diluted Definity, lot #[id number], [facility]# [id number] was administered peripherally to enhance visualization of all left ventricular segments. . This study was interpreted by an [facility] accredited facility. ??Final ?? Procedure Note Travon Blood MD - 01/13/2024 ECHOCARDIOGRAM MIKAYLA KUHN : 1960 63 years Study Date: 01/13/2024 2:53:14 PM Gender: F BP: 114/44 mmHg Height: 152.00 cm BSA: 1.93 m? ? ? Weight: 98.00 kg Tech: PASQUALE Referring MD: BARBARA HOLCOMB Site: [facility] Reading Location: ANW IP Patient Location: Inpatient. [...] ml diluted Definity, lot #[id number], [facility]#[id number] was administered peripherally to enhance visualization of allleft ventricular segments. . This study was interpreted by an [facility] accredited facility. Final Barbara Holcomb [employer] ECHO ORD * US ARTERIAL LOWER EXTREMITY [...] 125 mmHg Left Brachial: 111 mmHg Right FORMING MACHINE UPKEEP MECHANIC HELPER: Noncompressible Right DPA: 115 mmHg (SAMUEL 0.92) Left FORMING MACHINE UPKEEP MECHANIC HELPER: Noncompressible Left DPA: Noncompressible SAMUEL: 1.0-1.4 - normal 0.9-0.99 - borderline 0.80-0.89 - mild 0.50-0.79 - moderate 0.30-0.49 - severe < 0.30 - critical RIGHT: SUPERVISOR FINISHING DEPARTMENT PROX: 204 cm/sec; triphasic waveforms SUPERVISOR FINISHING DEPARTMENT DIST: 138 cm/sec; triphasic waveforms PFA: 97 cm/sec; triphasic waveforms SFA PROX: 140, 111 cm/sec; triphasic waveforms SFA MID: 113, 74 cm/sec; triphasic waveforms SFA DIST: 107, 113 cm/sec; triphasic waveforms POP PROX: 105 cm/sec; triphasic waveforms POP DIST: 89 cm/sec; triphasic waveforms FORMING MACHINE UPKEEP MECHANIC HELPER: 32 cm/sec; triphasic waveforms KAITLYN: 58 cm/sec; triphasic waveforms DPA: 56 cm/sec; triphasic waveforms LEFT: SUPERVISOR FINISHING DEPARTMENT PROX: 193 cm/sec; triphasic waveforms SUPERVISOR FINISHING DEPARTMENT DIST: 152 cm/sec; triphasic waveforms PFA: 98 cm/sec; triphasic waveforms SFA PROX: 119, 109 cm/sec; triphasic waveforms SFA MID: 103, 102 cm/sec; triphasic waveforms SFA DIST: 103, 100 cm/sec; triphasic waveforms POP PROX: 124 cm/sec; triphasic waveforms POP DIST: 85 cm/sec; triphasic waveforms FORMING MACHINE UPKEEP MECHANIC HELPER: 169 cm/sec; triphasic waveforms KAITLYN: 91 cm/sec; [...] 125 mmHg Left Brachial: 111 mmHg Right FORMING MACHINE UPKEEP MECHANIC HELPER: Noncompressible Right DPA: 115 mmHg (SAMUEL 0.92) Left FORMING MACHINE UPKEEP MECHANIC HELPER: Noncompressible Left DPA: Noncompressible SAMUEL: 1.0-1.4 - normal 0.9-0.99 - borderline 0.80-0.89 - mild 0.50-0.79 - moderate 0.30-0.49 - severe < 0.30 - critical RIGHT: SUPERVISOR FINISHING DEPARTMENT PROX: 204 cm/sec; triphasic waveforms SUPERVISOR FINISHING DEPARTMENT DIST: 138 cm/sec; triphasic waveforms PFA: 97 cm/sec; triphasic waveforms SFA PROX: 140, 111 cm/sec; triphasic waveforms SFA MID: 113, 74 cm/sec; triphasic waveforms SFA DIST: 107, 113 cm/sec; triphasic waveforms POP PROX: 105 cm/sec; triphasic waveforms POP DIST: 89 cm/sec; triphasic waveforms FORMING MACHINE UPKEEP MECHANIC HELPER: 32 cm/sec; triphasic waveforms KAITLYN: 58 cm/sec; triphasic waveforms DPA: 56 cm/sec; triphasic waveforms LEFT: SUPERVISOR FINISHING DEPARTMENT PROX: 193 cm/sec; triphasic waveforms SUPERVISOR FINISHING DEPARTMENT DIST: 152 cm/sec; triphasic waveforms PFA: 98 cm/sec; triphasic waveforms SFA PROX: 119, 109 cm/sec; triphasic waveforms SFA MID: 103, 102 cm/sec; triphasic waveforms SFA DIST: 103, 100 cm/sec; triphasic waveforms POP PROX: 124 cm/sec; triphasic waveforms POP DIST: 85 cm/sec; triphasic waveforms FORMING MACHINE UPKEEP MECHANIC HELPER: 169 cm/sec; triphasic waveforms KAITLYN: 91 cm/sec; [...] @ 01/14/2024 4:57:16 PM (Electronically Signed) Freya Schfaer NP US * US RENAL AND BLADDER [...] 01/14/2024 2:34:58 AM (Electronically Signed) Barbara Holcomb [employer]OMAT[employer]AMER US * XR FOOT 3 VIEWS LEFT [...] Mixed oni present 01/16/2024 2:44 PM CDT [facility] GRAM STAIN No PMNs 01/16/2024 2:44 PM CDT [facility] GRAM STAIN 2+ RBCs 01/16/2024 2:44 PM CDT [facility] GRAM STAIN No Epithelial cells 01/15 2:44 PM [facility]T [facility] GRAM STAIN 2+ Gram Positive Bacilli 01/16/2024 2:44 PM CDT [facility] Other (Other) Non-Blood / Unknown 01/13/2024 11:49 AM CDT 01/13/2024 12:[address] [facility] LAB[facility]ATORYCENTRAL LABORATORY - 01/16/2024 2:44 PM CDT Mixed oni; No Staphylococcus aureus, beta-Streptococcus, Streptococcus pneumoniae, or Pseudomonas aeruginosa isolated. Freya Shcafer NP MICROBIOLOGY [facility]AL LABORAT[facility] [address] [place] [id number], [place] * ANAEROBIC CULTURE (01/13/2024 11:49 AM CDT) CULTURE No anaerobes isolated 01/19/2024 10:01 AM CDT [facility] Other (Other) Non-Blood / Unknown 01/13/2024 11:49 AM CDT 01/13/2024 12:00 PM CDT Freya Schafer NP MICROBIOLOGY Performing Organization Address [facility] Co de Phone Number [facility] [address] [address], [place] * (ABNORMAL) Electrolytes Panel - DKA (01/13/2024 10:53 AM CDT) Only the most recent of3 resultswithin the time period is included. SODIUM 140 136 - 145 mmol/L 01/13/2024 11:36 AM CDT [facility] POTASSIUM 5.2(H) 3.5 - 5.1 mmol/L 01/13/2024 11:36 AM CDT [facility] CHLORIDE 107 98 - 107 mmol/L 01/13/2024 11:36 AM CDT [facility] CO2,TOTAL 21(L) 22 - 29 mmol/L 01/13/2024 11:36 AM CDT [facility] ANION GAP 12 5 - 18 01/13/2024 11:36 AM CDT [facility] Blood BLOOD SPECIMEN / Unknown Non-Lab Venipuncture / Unknown 01/13/2024 10:53 AM CDT 01/13/2024 11:01 AM CDT Ifeanyi Hernández RN CHEMISTRY Performing Organization Address [facility] Co de Phone Number [facility] [address] [place] [address], [place] * SCAN-CARDIAC STRIP (01/13/2024 8:00 AM CDT) Scanner OTHER * MAGNESIUM (01/13/2024 4:22 AM CDT) Only the most recent of2 resultswithin the time period is included. MAGNESIUM 1.9 1.6 - 2.4 mg/dL 01/13/2024 5:07 AM CDT [facility] Blood BLOOD SPECIMEN / Unknown Non-Lab Venipuncture / Unknown 01/13/2024 4:22 AM CDT 01/13/2024 4:41 AM CDT Ifeanyi Hernández RN CHEMISTRY Performing Organization Address [facility] Co de Phone Number [facility] [address] * (ABNORMAL) Serum Glucose - DKA (01/13/2024 1:52 AM CDT) Only the most recent of2 resultswithin the time period is included. GLUCOSE,RANDOM 459(H) 70 - 139 mg/dL 01/13/2024 2:46 AM CDT [facility] Blood BLOOD SPECIMEN / Unknown Non-Lab Venipuncture / Unknown 01/13/2024 1:52 AM CDT 01/13/2024 2:03 AM CDT Emily Guzman MD CHEMISTRY Performing Organization Address [facility] Co de Phone Number [facility] [address] [place] [address], * (ABNORMAL) TROPONIN T (HS) ONE TIME (01/12/2024 11:39 PM CDT) Pathologist [facility] TROPONIN T HS 45(H) 6-10 ng/L ng/L 01/13/2024 12:22 AM CDT [facility] Blood BLOOD SPECIMEN / Unknown Non-Lab Venipuncture / Unknown 01/12/2024 11:39 PM CDT 01/12/2024 11:45 PM CDT Emily Guzman MD CHEMISTRY Performing Organization Address City/[facility]/ZIP Co de Phone Number [facility] [address] [place] [address], * 12 Lead EKG (01/12/2024 10:16 PM CDT) Pathologist [facility] Interpretation Normal sinus rhythm Left axis deviation Abnormal ECG When compared with ECG of 02-Jan-2019 02:01, Nonspecific T wave abnormality now evident in Lateral leads BEYOND NOW Ventricular Rate 78 BPM BEYOND NOW Atrial Rate 78 BPM BEYOND NOW P-R Interval 160 ms BEYOND NOW QRS Duration 82 ms BEYOND NOW QT 400 ms BEYOND NOW QTc 456 ms BEYOND NOW P [place] 72 degrees BEYOND NOW R [place] -31 degrees BEYOND NOW T [place] 69 degrees BEYOND NOW 01/12/2024 10:1 6 PM CDT 01/13/2024 8:20 PM CDT Emily Guzman MD EKG ORD Performing Organization Address [facility] Co de Phone Number [facility] NOW [place], [place] * MRSA/SA PCR (01/12/2024 10:07 PM CDT) Pathologist [facility] [place] MRSA DNA PCR Negative Negative 01/12/2024 11:33 PM CDT [facility] STAPHYLOCOCCUS AUREUS PCR Negative Negative 01/12/2024 11:33 PM CDT [facility] Other SPECIMEN FROM INTERNAL NOSE / Unknown Non-Blood / Unknown 01/12/2024 10:07 PM CDT 01/12/2024 10:13 PM CDT Narrative [facility] - 01/12/2024 11:33 PM CDT Test result does not preclude MRSA or SA nasal colonization. Chaparro Sneed DO MICROBIOLOGY Performing Organization Address City/[facility]/ZIP Co de Phone Number [facility] [address] [place] [address], * (ABNORMAL) Urine Culture (01/12/2024 10:07 PM CDT) Pathologist [facility] CULTURE RESULT(A) 01/16/2024 6:58 AM CDT [facility] LABORATORY CULTURE 10,000-50,000 CFU/mL Proteus mirabilis 01/16/2024 6:58 AM CDT [facility] LAB[facility]ATORY CULTURE 50,000-100,000 CFU/mL Danita albicans 01/16/2024 6:58 AM CDT [facility] LABORATORY Urine URINE SPECIMEN / Unknown Non-Blood / Unknown 01/12/2024 10:07 PM CDT 01/12/2024 10:13 PM CDT Narrative Organism Antibiotic Method Susceptibility Proteus mirabilis TRIMETHOPRIM/SULF <=1: S Proteus mirabilis AMPICILLIN <=2: S Proteus [...] 128: R Emily Guzman MD MICROBIOL OGY [facility]AL LABORATORY [address] [place] [address], * Blood Culture (01/12/2024 9:40 PM CDT) Only the most recent of2 resultswithin the time period is included. CULTURE No Growth. 01/16/2024 11:23 PM CDT [facility] Blood BLOOD SPECIMEN / Unknown Venipuncture / Unknown 01/12/2024 9:40 PM CDT 01/12/2024 9:52 PM CDT [facility] - 01/16/2024 11:23 PM CDT Low volume blood culture received; possible false negative culture. Emily Guzman MD MICROBIOL OGY [facility] [address] [place] [address], * (ABNORMAL) TROPONIN T(HS) ACUTE W/2HR REFLEX (01/12/2024 9:37 PM CDT) TROPONIN T HS 47(H) 6-10 ng/L ng/L 01/12/2024 10:16 PM CDT [facility] Blood BLOOD SPECIMEN / Unknown Non-Lab Venipuncture / Unknown 01/12/2024 9:37 PM CDT 01/12/2024 9:46 PM CDT [facility] - 01/12/2024 10:16 PM CDT [id number] [...] department patient population. Emily Guzman MD [facility]STRY [facility] [address] [place] [address], * (ABNORMAL) CBC WITH AUTO DIFFERENTIAL (01/12/2024 9:37 PM CDT) WHITE BLOOD COUNT 14.9(H) 4.5 - 11.0 thou/cu mm 01/12/2024 9:54 PM CDT [facility] RED BLOOD COUNT 3.61(L) 4.00 - 5.20 mil/cu mm 01/12/2024 9:54 PM CDT [facility] HEMOGLOBIN 10.5(L) 12.0 - 16.0 g/dL 01/12/2024 9:54 PM CDT [facility] HEMATOCRIT 32.6(L) 33.0 - 51.0 % 01/12/2024 9:54 PM CDT [facility] MCV 90 80 - 100 fL 01/12/2024 9:54 PM CDT [facility] MCH 29.1 26.0 - 34.0 pg 01/12/2024 9:54 PM CDT [facility] MCHC 32.2 32.0 - 36.0 g/dL 01/12/2024 9:54 PM CDT [facility] RDW 13.2 11.5 - 15.5 % 01/12/2024 9:54 PM CDT [facility] PLATELET COUNT 273 140 - 440 thou/cu mm 01/12/2024 9:54 PM CDT [facility] MPV 11.0 6.5 - 11.0 fL 01/12/2024 9:54 PM CDT [facility] NRBC 0.0 % 01/12/2024 9:54 PM CDT [facility] ABS NRBC 0.0 thou /cu mm 01/12/2024 9:54 PM CDT [facility] % NEUT 80.3 % 01/12/2024 9:54 PM CDT [facility] % LYMPH 9.6 % 01/12/2024 9:54 PM CDT [facility] % MONO 9.2 % 01/12/2024 9:54 PM CDT [facility] % EOS 0.1 % 01/12/2024 9:54 PM CDT [facility] % BASO 0.1 % 01/12/2024 9:54 PM CDT [facility] % IMMATURE GRAN (METAS,MYELOS,PA OS) 0.7 % 01/12/2024 9:54 PM CDT [facility] ABSOLUTE NEUTROPHILS 12.0(H) 1.7 - 7.0 thou/cu mm 01/12/2024 9:54 PM CDT [facility] ABSOLUTE LYMPHOCYTES 1.4 0.9 - 2.9 thou/cu mm 01/12/2024 9:54 PM CDT [facility] ABSOLUTE MONOCYTES 1.4(H) <0.9 thou/cu mm 01/12/2024 9:54 PM CDT [facility] ABSOLUTE EOSINOPHILS 0.0 <0.5 thou/cu mm 01/12/2024 9:54 PM CDT [facility] ABSOLUTE BASOPHILS 0.0 <0.3 thou/cu mm 01/12/2024 9:54 PM CDT [facility] ABSOLUTE IMMATURE GRANULOCYTES(MET ,MYELOS,PROS) 0.1 <0.3 thou/cu mm 01/12/2024 9:54 PM CDT [facility] Blood BLOOD SPECIMEN / Unknown Non-Lab Venipuncture / Unknown 01/12/2024 9:37 PM CDT 01/12/2024 9:46 PM CDT Emily Guzman MD HEMATOLOG Y [facility] [address] [place] [address], * (ABNORMAL) BLOOD GAS,VENOUS (01/12/2024 9:37 PM CDT) PH, VENOUS 7.25(L) 7.32 - 7.43 01/12/2024 9:52 PM CDT [facility] PCO2, VENOUS 44 41 - 51 mmHg 01/12/2024 9:52 PM CDT [facility] PO2, VENOUS 48(H) 35 - 40 mmHg 01/12/2024 9:52 PM CDT [facility] HCO3,VENOUS 19(L) 22 - 29 mmol/L 01/12/2024 9:52 PM CDT [facility] BASE EXCESS, VENOUS, POCT -7.7(L) -2.0 - 3.0 01/12/2024 9:52 PM CDT [facility] O2 SATURATION, VENOUS 85(H) 70 - 75 % 01/12/2024 9:52 PM CDT [facility] INSPIRED O2 21 01/12/2024 9:52 PM CDT [facility] Comment:Unit of Measure: Lit ers (L) if <=20; Percent (%) if >20 PATIENT TEMPERATURE 36.9 Degrees C 01/12/2024 9:52 PM CDT [facility] Blood VENOUS BLOOD SPECIMEN / Unknown Non-Lab Venipuncture / Unknown 01/12/2024 9:37 PM CDT 01/12/2024 9:46 PM CDT Emily Guzman MD CHEMISTRY Performing Organization Address [facility] Co de Phone Number [facility] [address] [place] [address], * Protime - INR (01/12/2024 9:37 PM CDT) INR 1.0 <1.3 01/12/2024 9:56 PM CDT [facility] PROTIME 11.5 10.3 - 12.3 sec 01/12/2024 9:56 PM CDT [facility] Blood BLOOD SPECIMEN / Unknown Non-Lab Venipuncture / Unknown 01/12/2024 9:37 PM CDT 01/12/2024 9:46 PM CDT Narrative [facility] - 01/12/2024 9:56 PM CDT [...] Guzman MD HEMATOLOG Y Performing Organization Address [facility] Co de Phone Number [facility] [address] [address], [place] * (ABNORMAL) HEMOGLOBIN A1C MONITORING (POCT) (01/12/2024 9:37 PM CDT) Only the most recent of2 resultswithin the time period is included. [facility] HEMOGLOBIN A1C MONITORING (POCT) 9.3(H) <=6.4 % 01/14/2024 10:29 AM CDT [facility] Blood BLOOD SPECIMEN / Unknown Non-Lab Venipuncture / Unknown 01/12/2024 9:37 PM CDT 01/12/2024 9:46 PM CDT Narrative [facility] - 01/14/2024 10:29 AM CDT [...] with: Untreated Anemias, Splenectomy ? Barbara Holcomb [employer] CHEMISTRY [facility] [address] [place] [address], * (ABNORMAL) Hepatic Function Panel (01/12/2024 9:37 PM CDT) [facility] ALBUMIN 3.2(L) 4.0 - 4.9 g/dL 01/12/2024 10:16 PM CDT [facility] PROTEIN,TOTAL 6.4 6.0 - 8.0 g/dL 01/12/2024 10:16 PM CDT [facility] BILIRUBIN,TOTAL 0.2 0.0 - 1.2 mg/dL 01/12/2024 10:16 PM CDT [facility] BILIRUBIN,DIRECT <0.2 0.0 - 0.3 mg/dL 01/12/2024 10:16 PM CDT [facility] BILIRUBIN,INDIRE CT 01/12/2024 10:16 PM CDT [facility] Comment:Unable to calculate, Direct Bili <0.2 ALK PHOSPHATASE 122(H) 35 - 104 IU/L 01/12/2024 10:16 PM CDT [facility] ALT (SGPT) 21 10 - 35 IU/L 01/12/2024 10:16 PM CDT [facility] AST (SGOT) 20 10 - 35 IU/L 01/12/2024 10:16 PM CDT [facility] Blood BLOOD SPECIMEN / Unknown Non-Lab Venipuncture / Unknown 01/12/2024 9:37 PM CDT 01/12/2024 9:46 PM CDT Emily Guzman MD CHEMISTRY [facility] [address] [address], * SCAN-CARDIAC STRIP (01/12/2024 9:20 PM CDT) [...] health care provider. XR MAMMO BILAT SCREENING [[id number]] CLINICAL HISTORY: ??This is an asymptomatic 61 y.o. patient. INDICATION FOR EXAM: Mammogram Screening. TECHNIQUE: CC & MLO views were obtained. ??This study was evaluated with the assistance of Computer-Aided Detection. COMPARISON FILM: Yes 03/02/18 [facility] 07/26/13 [facility] FINDINGS: ??The breasts are extremely dense, which lowers the sensitivity of mammography. There are no dominant masses, suspicious micro calcifications or areas of architectural distortion. Shania Montiel MD MAMMO * LIPID PANEL W REFLEX MEASURED LDL (04/28/2022 1:44 PM CDT) CHOLESTEROL,TOTAL 139 100 - 199 mg/dL 04/30/2022 6:25 PM CDT [facility] TRIGLYCERIDES 141 <150 mg/dL 04/30/2022 6:25 PM CDT [facility] HDL CHOLESTEROL 42 >40 mg/dL 6:25 PM CDT [facility] NON-HDL CHOLESTEROL 97 <145 mg/dl 04/30/2022 6:25 PM CDT [facility] CHOL/HDL RATIO 3.31 <4.50 04/30/2022 6:25 PM CDT [facility] LDL CHOLESTEROL 69 <=130 mg/dL 04/30/2022 6:25 PM CDT [facility] VLDL CHOLESTEROL 28 <=30 mg/dL 04/30/2022 6:25 PM CDT [facility] PROVIDER ORDERED STATUS RANDOM 04/30/2022 6:25 PM CDT [facility] Blood BLOOD SPECIMEN / Unknown Venipuncture / Unknown 04/28/2022 1:44 PM CDT 04/28/2022 1:45 PM CDT Shania Montiel MD [facility]STRY [facility] [address] [place] [address], [place] * FECAL DNA (AKA COLOGUARD) (11/10/2021 1:00 PM CDT) Shania Montiel MD COMMUNICATION ORD * ANTI HCV [00565.2] (02/16/2018 4:20 PM CDT) Pathologist [facility] [place] HEPATITIS C ANTIBODY Non-React alex Non-React alex 02/17/2018 2:48 PM CDT [facility] Comment:Antibodies to HCV no t detected; does not exclude the possibility of exposure to HCV. Blood BLOOD SPECIMEN / Unknown Butterfly / Unknown 02/16/2018 4:20 PM CDT 02/16/2018 4:20 PM CDT Coleman Plata MD SEND OUTS [facility] [address] [place] [address], * HIV 1&2 TODAY (07/21/2015 9:40 AM AUTOMATED CUTTING MACHINE OPERATOR) Pathologist [facility] [place] HIV-1/HIV-2 ANTIBODY Non-Reacti ve Non-Reacti ve 07/21/2015 10:31 AM AUTOMATED CUTTING MACHINE OPERATOR [facility] Blood specimen (specimen) BLOOD SPECIMEN / Unknown Venipuncture / Unknown 07/21/2015 9:40 AM AUTOMATED CUTTING MACHINE OPERATOR 07/21/2015 9:47 AM AUTOMATED CUTTING MACHINE OPERATOR Narrative [facility] [facility] - 07/21/2015 10:31 AM AUTOMATED CUTTING MACHINE OPERATOR HIV-1 p24 and HIV-1/HIV-2 Ab not detected Kait Morales DO SEND OUTS [facility] [address] [place] [address], * LEAF SUCKER OPERATOR THIN PREP PAP SCREEN IMAGED (08/17/2012 4:02 PM AUTOMATED CUTTING MACHINE OPERATOR) Pathologist [facility] [place] CYTOLOGY CYTOPATHOLOGY REPORT [facility] Status: Final Status ?[id number] CLINICAL INFORMATION Last Date of LMP ? :07/03/2012 Last Pap Date ?:02/01/2011 Last Pap Result ?:NIL ABN [place]/Bx Past 5 YRS :None Hormone Usage ?:BCP/OCP/Patch/R ing Menstrual Status ? :Regular Periods [place]/Bx done today ? :No Additional Information :None given HPV Request ?:HPV if ASCUS SPECIMEN SOURCE ?:Cervical/vagina l ThinPrep Vial, screening SPECIMEN ADEQUACY ?:Satisfactory for evaluation No endocervical ? component seen. INTERPRETATION/RES ULT Negative for intraepithelial lesion or malignancy (NIL) Cytology 1st Screener ??:cam Signed by ?:cam This specimen was screened by the FDA approved [employer] System and manually reviewed. NOTE: ??The [...] COLLECTED:08/17/12 ? ACCESSIONED: ??08/18/12 ?? SIGNED: ??08/21/12 [facility] PAP [place] CODE NIL [facility] Tissue specimen (specimen) (Cervical/Vagina l) 08/17/2012 4:02 PM AUTOMATED CUTTING MACHINE OPERATOR 08/17/2012 4:00 PM AUTOMATED CUTTING MACHINE OPERATOR Coleman Plata MD PATHOLOGY/CYTOLOGY [facility] INTERNAL ZIP [id number] [place] [address] from Last 3 Months or Most Recently [...] Urine earlier this year (per report from [facility], not available in CareEverywhere), 04/19/18 L cheek abscess exclusions for contact precaution discontinuation (if > 12 months since positive culture): 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 in acute/continuous churn buttermaker care, receiving hemodialysis, has chronic open wounds/skin [...] 8:01 PM 07/15/2012 6:55 PM Care Teams Customer Relations Coordinator Relationship Specialty Start Date End Date Barbara Valentin DO [address] [place] [address] PCP - General Family Practice 11/15/22 Julio Ibrahim MD [address] [place] [address] Surgery - Orthopedics 02/01/11 Chuy Doss MD [address] [place] [address] Surgery - Vascular 02/01/11 Markel Strong MD [address] [place] [address] Provider Family Practice 08/08/20 Nikolai Ibarra MD [address] [place] [address] Endocrinology 09/07/22 [facility] [place] [address] [place] [address] 01/17/24 Suad Ng/ [employer] CM Crime Data Specialist 07/14/17 [facility] Home Health Nurse 07/01/17 [facility] TRIMMING DEPARTMENT BLOCKER Services Home Health Aide 07/14/17 [facility] Poultry Hatchery Man/ Ally Christianson [address] [place], [place] [id number] Crime Data Specialist 07/07/17
[2024-03-16 20:46] LABS: Basophils Absolute Auto 0.01 K/uL (0.00-0.30); Basophils Percent Auto 0.1 % (0.0-3.0); Eosinophils Absolute Auto 0.19 K/uL (0.00-0.50); Eosinophils Percent Auto 2.6 % (0.0-7.0); HCO3 VBG 29 mmol/L (21-28); Hematocrit 30.6 % (33.0-51.0); Hemoglobin* 9.6 gm/dL (12.0-16.0); Immature Granulocytes Abs Auto 0.01 K/uL (0.00-0.30); Immature Granulocytes Pct Auto 0.1 %; Lymphocytes Percent Auto 9.8 % (20-44); Mean Corpuscular HGB Conc 31 gm/dL (32-36); Mean Corpuscular Hemoglobin 29 pg (26-34); Mean Corpuscular Volume 93 fL (80-100); Monocytes Percent Auto 8.1 % (0.0-11.0); Neutrophils Percent Auto 79.3 % (42.0-72.0); PCO2 VBG 52 mmHG (40-50); PO2 VBG < 30.1 mmHG (25-47); Platelet Count* 262 K/uL (140-440); RDW Coefficient of Variation % 13.4 % (11.5-15.5); Red Blood Count 3.28 m/uL (4.00-5.20); White Blood Count* 7.27 K/uL (4.50-11.00); pH VBG 7.349 (7.32-7.43)
[2024-03-16] MEDS: dexAMETHasone 4 MG/ML VIAL 10 MG IV (20:46)
[2024-03-16] MEDS: IPRAT-ALBUT 0.5-2.5 MG/3 ML NEB 1 NEB IH ×2 (20:51→23:50)
[2024-03-16 20:58] LABS: PCR FLU A Negative PCR FLU A (Negative); PCR FLU B Negative PCR FLU B (Negative); PCR RSV Negative PCR RSV (Negative); SARS PCR* Negative SARS-CoV-2 (Negative)
[2024-03-16 20:59] LABS: Chloride* 100 mmol/L (96-114); Potassium* 5.5 mmol/L (3.6-5.1); Slide Review Reflex No; Sodium* 135 mmol/L (135-149)
[2024-03-16 21:02] LABS: Anion Gap 8 mEq/L (7-15); Blood Urea Nitrogen* 29 mg/dL (7-30); Carbon Dioxide* 27 mmol/L (20-32); Creatinine* 1.6 mg/dL (0.5-1.5); Est. Creatinine Clearance* 26.19; Estimated Glomerular Filt Rate 36 ml/min
[2024-03-16 21:03] LABS: Calcium* 8.8 mg/dL (8.4-10.6)
[2024-03-16 21:09] LABS: Glucose* 430 mg/dL (60-115)
[2024-03-16 21:13] LABS: NT Pro B Type NatriureticPept* 1380 pg/mL
[2024-03-16] MEDS: FUROSEMIDE 10 MG/ML inj 80 MG IVP (21:57)
--- NOTE | 2024-03-16 22:24 | PM.IMHP1 ---
Hospitalist- H&P: HPI History of Present Illness Date Seen: 03/16/24 Chief complaint: Shortness of breath Narrative: Mikayla Kuhn is a 63 year old female with type 1 diabetes, COPD, heart failure, sleep apnea, opioid dependence, stage 4 kidney disease who presents with a 1 day history of shortness of breath. She reports she was in her usual state of health until last evening when she began to feel dyspnea. She did not notice that it got worse when she laid down last night. Today it got worse and she came to the hospital for evaluation. She has not had a fever, cold, chest pain. She has had a little bit of a cough. She reports she has been taking her medications and has not had any other change in her health status or medications recently. In the emergency department she presented with oxygen saturation of 75% on room air. This improved with oxygen by face mask and then CPAP. She was hospitalized at [facility] 2 months ago for DKA with insomnia and acute kidney injury. At that time she had acute kidney injury with a creatinine of 4.4, a potassium of 8.6, blood sugar was 1195, pH of 6.97. She was transferred to ICU care at [facility]. She did require intravenous pressors. She had cultures of blood urine and wound done and was treated with ceftriaxone and vancomycin for 3 days. Eventually was determined that she did not have a life-threatening infection and no further antibiotics were required. Since that time she reports she has generally been doing well. She had home care services and has a getting outpatient wound care for a left heel chronic ulcer. Home care signed off on her 2 days ago. Review of Systems Narrative: Other than problems noted above she reports she is doing well [facility] Medical History (Updated 03/16/24 @ 22:43 by Peterson Javed MD) Congestive heart failure (CHF) ?I50.9 - Heart failure, unspecified (ICD-10) Hypertension ?I10 - Essential (primary) hypertension (ICD-10) Diabetes type I ?E10.9 - Type 1 diabetes mellitus without complications (ICD-10) Hyperosmolar syndrome ?E87.0 - Hyperosmolality and hypernatremia (ICD-10) Sleep apnea ?G47.30 - Sleep apnea, unspecified (ICD-10) Ulnar neuropathy ?G56.20 - Lesion of ulnar nerve, unspecified upper limb (ICD-10) Hyperlipidemia ?E78.5 - Hyperlipidemia, unspecified (ICD-10) Morbid obesity ?E66.01 - Morbid (severe) obesity due to excess calories (ICD-10) GERD (gastroesophageal reflux disease) ?K21.9 - Gastro-esophageal reflux disease without esophagitis (ICD-10) 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 diabetic neuropathic arthropathy (ICD-10) Depressive disorder ?F32.A - Depression, unspecified (ICD-10) COPD (chronic obstructive pulmonary disease) ?J44.9 - Chronic obstructive pulmonary disease, unspecified (ICD-10) Chronic pain syndrome ?G89.4 - Chronic pain syndrome (ICD-10) Chronic kidney disease, stage 1 ?N18.1 - Chronic kidney disease, stage 1 (ICD-10) Carpal tunnel syndrome ?G56.00 - Carpal tunnel syndrome, unspecified upper limb (ICD-10) Diabetic retinopathy ?E11.319 - Type 2 diabetes mellitus with unspecified diabetic retinopathy without macular edema (ICD-10) Anemia of other chronic disease ?D63.8 - Anemia in other chronic diseases classified elsewhere (ICD-10) Acute respiratory failure ?J96.00 - Acute respiratory failure, unspecified whether with hypoxia or hypercapnia (ICD-10) Surgical History History of thyroidectomy ?E89.0 - Postprocedural hypothyroidism (ICD-10) History of hip replacement ?Z96.649 - Presence of unspecified artificial hip joint (ICD-10) History of gastric bypass ?Z98.84 - Bariatric surgery status (ICD-10) History of section ?Z98.891 - History of uterine scar from previous surgery (ICD-10) Hx of cataract removal with insertion of prosthetic lens ?Z98.49 - Cataract extraction status, unspecified eye (ICD-10) ?Z96.1 - Presence of intraocular lens (ICD-10) History of carpal tunnel release ?Z98.890 - Other specified postprocedural states (ICD-10) History of knee replacement procedure of right knee ?Z96.651 - Presence of right artificial knee joint (ICD-10) Family History (Updated 03/16/24 @ 22:34 by Peterson Javed MD) Mother Diabetes Obesity Sleep apnea Brother Diabetes Obesity Sleep apnea Father Sleep apnea High blood pressure Social History (Updated 03/16/24 @ 22:34 by Peterson Javed MD) Narrative: Full Code. Lives with son Mitul, who would be medical decision maker if needed. Also lives with sister. She does not smoke. She does not drink alcohol. What is your current living situation?: I presently have a place to live Problems where you live: no known problems Problems where you live details: no In the past 12 months, utilities in danger of being shut off: declined to answer In past 12 months, lack of transportation kept you from medical appts, meetings, work, or getting things needed for daily living: no In the past 12 mos, have been you worried that your food would run out before you had money to buy more?: declined to answer In the past 12 mos, the food you bought just didn't last and you didn't have money to buy more?: declined to answer Smoking Status: Never smoker Do you use any of these nicotine containing products: None Second hand tobacco smoke exposure: No How often do you have a drink containing alcohol: never AUDIT-C Alcohol total score: 0 Non-prescribed substance use: denies use How often does anyone, including family, friends and others, physically hurt you: never How often does anyone, including family, friends and others, insult or talk down to you: never How often does anyone, including family, friends and others, threaten you with harm: never How often does anyone, including family, friends and others, scream or curse at you: never Meds Home Medications and Allergies Home Medications ?Medication ?Instructions ?Recorded ?Confirmed ?Type amlodipine 2.5 mg tablet 2.5 mg PO BID 10/11/22 03/16/24 History atorvastatin 20 mg tablet 20 mg PO QPM 10/11/22 03/16/24 History buprenorphine 5 mcg/hour weekly 1 patch transdermal Q7D 10/11/22 03/16/24 History transdermal patch cetirizine 5 mg tablet 5 mg PO DAILY 10/11/22 03/16/24 History cholecalciferol (vitamin D3) 50 50 mcg PO DAILY 10/11/22 03/16/24 History mcg (2,000 unit) capsule duloxetine 60 mg capsule,delayed 60 mg PO DAILY 10/11/22 03/16/24 History release losartan 25 mg tablet 12.5 mg PO DAILY 10/11/22 03/16/24 History metoprolol succinate 25 mg 25 mg PO DAILY 10/11/22 03/16/24 History tablet,extended release 24 hr omeprazole 20 mg capsule,delayed 20 mg PO DAILY 10/11/22 03/16/24 History release oxycodone 5 mg tablet 5 mg PO BID PRN 10/11/22 03/16/24 History polyethylene glycol 3350 17 17 g PO BID 10/11/22 03/16/24 History gram/dose oral powder (Miralax) pregabalin 100 mg capsule 100 mg PO BID 10/11/22 03/16/24 History pregabalin 50 mg capsule 150 mg PO HS 10/11/22 03/16/24 History sennosides 8.6 mg-docusate sodium 2 tab PO BID 10/11/22 03/16/24 History 50 mg tablet (Stool Softener-Stimulant Laxative) torsemide 20 mg tablet 40 mg PO DAILY 10/11/22 03/16/24 History vitamin B12 2,500 mcg-folic acid 1 tab PO DAILY 10/11/22 03/16/24 History 400 mcg disintegrating tablet acetaminophen 650 mg 1,300 mg PO Q8H 12/19/22 03/16/24 History tablet,extended release insulin glargine 100 unit/mL (3 20 unit subcut QAM 05/25/23 03/16/24 History mL) subcutaneous pen (Lantus Solostar U-100 Insulin) levothyroxine 125 mcg tablet 125 mcg PO DAILY 05/25/23 03/16/24 History fluoxetine 10 mg capsule 10 mg PO DAILY 03/16/24 03/16/24 History Allergies Allergy/AdvReac Type Severity Reaction Status Date / Time ampicillin Allergy Mild Hives Verified 03/16/24 19:29 aspirin Allergy Unknown Verified 03/16/24 19:33 NSAIDS (Non-Steroidal Allergy Unknown Verified 03/16/24 19:33 Anti-Inflamma Exam Narrative: Exam Narrative: She is alert and appears in no obvious distress on CPAP with pressures of 20 and FiO2 of 40%. Oriented to her circumstances. Eyes normal. Oropharynx with small airway. Neck is supple. No obvious jugular venous distension. Respirations with diminished breath sounds throughout all lung briggs. Bibasilar crackles. Occasional expiratory wheezes. Fair to poor air exchange in all lung briggs. Cardiovascular: S1, S2, regular rate and rhythm. Abdomen: Bowel sounds active. Abdomen is soft without tenderness or mass. External genitalia normal. Lower extremities without significant edema. Intact dorsalis pedis pulses bilaterally. Feet are warm to touch. Ulcer on her left posterior heel without surrounding erythema. She moves all 4 extremities well. Intact sensation in her feet to soft touch. No rash Const: Vital Signs, click to edit/add: Vital Signs - 24 hr 03/16/24 19:20 Temperature 98.0 F Pulse Rate [Pulse Oximeter] 80 Respiratory Rate 20 Blood Pressure [Ri ght Upper Arm] 153/71 H Pulse Oximetry 75 L Oxygen Delivery Me thod Room Air Documenting provider has reviewed patient's vital signs: yes Hospitalist - H&P: Result Labs Labs: Short CBC 03/16/24 Range/Units 20:25 WBC 7.27 (4.50-11.00) K/uL Hgb 9.6 L (12.0-16.0) gm/dL Hct 30.6 L (33.0-51.0) % Plt Count 262 (140-440) K/uL BMP 03/16/24 20:25 Sodium 135 Potassium 5.5 H Chloride 100 Carbon Dioxide 27 BUN 29 Creatinine 1.6 H Glucose 430 H* Calcium 8.8 ECG Attestation: I personally reviewed and interpreted this ECG as follows: (Normal electrocardiogram) Imaging Chest x-ray: Attestation: I have reviewed the pertinent imaging results. (Portable chest x-ray shows bilateral pulmonary edema) Assessment and Plan Assessment and plan (1) Congestive heart failure (CHF): Problem comment: Cause is uncertain. Initiate diuresis and CPAP with supplemental oxygen. Echocardiogram from 01/13/2024: Final Impressions: 1. Normal LV size, normal wall thickness, normal global systolic function with an estimated EF of 60 - 65%. 2. Right ventricular cavity size is normal, global systolic RV function is normal. 3. No significant valve disease detected. Status: Acute (2) Hypoxia: Problem comment: CPAP with supplemental oxygen Status: Acute (3) Chronic pain syndrome: Problem comment: Chronic opioid therapy, Butrans patch Status: Acute (4) COPD (chronic obstructive pulmonary disease): Problem comment: Uncertain how much this is contributing to her hypoxia. Has mild CO2 retention, venous pCO2 of 52 and pH of 7.35 Status: Acute (5) Diabetes type I: Problem comment: Last hemoglobin A1c was 9.3 on 01/12/2024. Current hyperglycemia with glucose of 430. Also receiving steroid medication. Insulin drip for tonight. Status: Acute (6) Hyperkalemia: Problem comment: Likely due to chronic kidney disease, hold losartan, monitor potassium with diuresis Status: Acute Plan Patient is admitted to the CCU for management of hyperglycemia, heart failure, hyperkalemia, CPAP for hypoxic respiratory failure. Total Time Spent Total Time Spent: Critical care time is 90 minutes
[2024-03-16 23:36] LABS: Appearance Urine Clear (Clear); Bilirubin Urine Negative (Negative); Blood Urine 1+ (Negative); Color Urine Yellow (Yellow); Glucose Urine 2+ (Negative); Ketones Urine Negative (Negative); Leukocyte Esterase Urine 3+ (Negative); Nitrite Urine Negative (Negative); Protein Urine Negative (Negative); Urobilinogen Urine 0.2 (0.2-1.0)
[2024-03-16] MEDS: ACETAMINOPHEN 650 MG TABLET ER 1300 MG PO (23:50)
[2024-03-16] MEDS: ATORVASTATIN 10 MG TABLET 20 MG PO (23:51)
[2024-03-16] MEDS: SENNOSIDES/DOCUSATE TABLET 2 TAB PO (23:51)
[2024-03-16] MEDS: INSULIN REGULAR, HUMAN 100 UNIT/ML VIAL 8 UNIT IVP (23:52)
[2024-03-16] MEDS: ENOXAPARIN 30 MG/0.3ML INJ SUBCUT (23:52)
[2024-03-16 23:58] LABS: Bacteria Urine Moderate; Squamous Epithelial Cell Urine Few (None-Few)
[2024-03-17] VITALS (14 sets, daily range): BP systolic 127–158; BP diastolic 48–73; PULSE 62–95; RESP 14–24; TEMP 36.1–36.9; O2SAT 88–99
[2024-03-17] MEDS: INSULIN INF 100 UNIT/100 ML 100 UNIT/100 ML BAG IVPB (00:01)
[2024-03-17] MEDS: levoFLOXacin 250 MG TABLET PO ×2 (02:05→21:22)
[2024-03-17] MEDS: 5 % DEXTROSE/0.9% SOD CHLORIDE 1,000 ML 100 ML IV (03:25)
[2024-03-17 06:25] LABS: HCO3 VBG 30 mmol/L (21-28); PCO2 VBG 47 mmHG (40-50); PO2 VBG 49.2 mmHG (25-47); pH VBG 7.416 (7.32-7.43)
[2024-03-17 06:34] LABS: Basophils Absolute Auto 0.01 K/uL (0.00-0.30); Basophils Percent Auto 0.2 % (0.0-3.0); Hematocrit 28.9 % (33.0-51.0); Hemoglobin* 9.1 gm/dL (12.0-16.0); Immature Granulocytes Abs Auto 0.01 K/uL (0.00-0.30); Immature Granulocytes Pct Auto 0.2 %; Lymphocytes Percent Auto 11.4 % (20-44); Mean Corpuscular HGB Conc 32 gm/dL (32-36); Mean Corpuscular Hemoglobin 29 pg (26-34); Mean Corpuscular Volume 92 fL (80-100); Monocytes Percent Auto 3.5 % (0.0-11.0); Neutrophils Percent Auto 84.7 % (42.0-72.0); Platelet Count* 290 K/uL (140-440); RDW Coefficient of Variation % 13.1 % (11.5-15.5); Red Blood Count 3.14 m/uL (4.00-5.20); White Blood Count* 5.37 K/uL (4.50-11.00)
[2024-03-17 06:36] LABS: Slide Review Reflex No
[2024-03-17] MEDS: ACETAMINOPHEN 650 MG TABLET ER 1300 MG PO ×2 (06:59→15:42)
[2024-03-17 07:02] LABS: Albumin* 3.6 g/dL (3.3-5.0)
[2024-03-17 07:03] LABS: Chloride* 103 mmol/L (96-114); Potassium* 4.2 mmol/L (3.6-5.1); Sodium* 138 mmol/L (135-149)
[2024-03-17 07:05] LABS: Anion Gap 4 mEq/L (7-15); Bilirubin Direct* 0.4 mg/dL (0.0-0.5); Bilirubin Total* 0.6 mg/dL (0.1-1.5); Carbon Dioxide* 31 mmol/L (20-32); Creatinine* 1.5 mg/dL (0.5-1.5); Est. Creatinine Clearance* 32.17; Estimated Glomerular Filt Rate 39 ml/min
[2024-03-17 07:06] LABS: Alanine Aminotransferase* 15 U/L (4-35); Alkaline Phosphatase* 97 U/L (40-150); Aspartate Amino Transferase* 18 U/L (12-35); Blood Urea Nitrogen* 29 mg/dL (7-30); Glucose* 79 mg/dL (60-115); Magnesium* 2.3 mg/dL (1.5-2.6); Total Protein* 7.3 g/dL (6.0-8.3)
--- NOTE | 2024-03-17 07:06 | PC.NURSE ---
End of shift [id number]: Pt arrived to the unit at 2220 from the ED. She was on 10L OxyMask on arrival and was switched over to CPAP. See flowsheet for CPAP settings titration. Pt maintained O2 sats > 88% overnight. She had no c/o pain, nausea or CP. Reported SOB with activity but none while at rest. Insulin infusion was started @ 0000 and stopped @ 0510. Initial blood sugar once on the floor was 412. See flowsheet for blood sugar trends and eMAR for insulin drip adjustments. Michelle DUBOSE provided verbal orders overnight re: maintenance fluids and insulin titration. Snow was placed after arrival & it?s draining cloudy, pale, yellow urine. Total output: 1400 mL. UA came back positive so PO Levaquin q24 was initiated. She has x1 PIV in left AC which was an ultrasound guided insertion in the ER. Pt has a buprenorphine transdermal patch in between her shoulder blades; due to come of Tuesday per pt. TELE showed NSR throughout the night. Noted 1+ edema to bilateral ankles. Pt has a chronic ulcer on her left heel; mepilex intact & wound examined under dressing. ?
[2024-03-17 07:22] LABS: Troponin I* < 0.01 ng/mL (0.01-0.04)
[2024-03-17 07:26] LABS: Thyroid Stimulating Hormone* 0.785 uIU/mL (0.270-4.20)
[2024-03-17] MEDS: FUROSEMIDE 10 MG/ML inj 80 MG IVP (08:57)
[2024-03-17] MEDS: polyethylene glycoL 3350 17 GM PACK PO (09:59)
[2024-03-17] MEDS: PREGABALIN 100 MG CAPSULE 200 MG PO (10:00)
--- NOTE | 2024-03-17 10:00 | P.IMPN_ITS ---
Progress Note: A&P Assessment and plan (1) Hypoxia: Problem details: CPAP with supplemental oxygen. Able to wean off CPAP today Status: Acute (2) Congestive heart failure (CHF): Problem details: Cause is uncertain. Initiate diuresis and CPAP with supplemental oxygen. Echocardiogram from 01/13/2024: Final Impressions: 1. Normal LV size, normal wall thickness, normal global systolic function with an estimated EF of 60 - 65%. 2. Right ventricular cavity size is normal, global systolic RV function is normal. 3. No significant valve disease detected. Status: Acute (3) Hyperkalemia: Problem details: Likely due to chronic kidney disease. Improved today. Restart losartan and continue to monitor renal function and potassium Status: Acute (4) Diabetes type I: Problem details: Last hemoglobin A1c was 9.3 on 01/12/2024. Current hyperglycemia with glucose of 430. Also receiving steroid medication. Now off insulin drip. Resume home insulin treatment Status: Acute (5) COPD (chronic obstructive pulmonary disease): Problem details: Uncertain how much this is contributing to her hypoxia. Has mild CO2 retention, venous pCO2 of 52 and pH of 7.35 on admission. Improving Status: Acute (6) Chronic pain syndrome: Problem details: Chronic opioid therapy, Butrans patch Status: Acute Plan Continue in hospital for management of heart failure. Transfer from CCU to [facility]. Discontinue CPAP for daytime respiratory support though she may need it at night for sleep apnea. Discontinue insulin drip and transition to outpatient insulin management. Optimize heart failure treatment. Time Spent With Patient Total time spent: Total time spent today is 40 minutes in evaluation and management Subjective Date Seen: 03/17/24 Interval history: Mikayla Kuhn is a 63 year old female with type 1 diabetes, COPD, heart failure, sleep apnea, opioid dependence, stage 4 kidney disease who presents with a 1 day history of shortness of breath. She reports she was in her usual state of health until last evening when she began to feel dyspnea. She did not notice that it got worse when she laid down last night. Today it got worse and she came to the hospital for evaluation. She has not had a fever, cold, chest pain. She has had a little bit of a cough. She reports she has been taking her medications and has not had any other change in her health status or medications recently. In the emergency department she presented with oxygen saturation of 75% on room air. This improved with oxygen by face mask and then CPAP. Overnight she was treated for COPD with nebulizer and steroids, hypoxia and heart failure were treated with oxygen, CPAP and furosemide. She has had significant improvement in her respiratory status. Hyperglycemia treated with an insulin drip and that has been discontinued overnight. She reports no concerns this morning Exam Narrative: Exam Narrative: She is alert and appears in no distress. Respirations still with bibasilar fine crackles her/rales. Still diminished breath sounds in all lung briggs. No marked wheezing. Cardiovascular: S1, S2, regular rate and rhythm. Abdomen: Bowel sounds active. Abdomen is soft without tenderness or mass. Extremities without edema. She moves all 4 extremities well. Const: Vital Signs, click to edit/add: Vital Signs - 24 hr 03/16/24 19:20 03/16/24 19:35 03/16/24 19:36 Temperature 98.0 F Pulse Rate 83 81 Pulse Rate [Pulse Oximeter] 80 Respiratory Rate 20 24 Blood Pressure 161/61 H Blood Pressure [Ri ght Arm] Blood Pressure [Ri ght Upper Arm] 153/71 H Pulse Oximetry 75 L 93 92 Oxygen Delivery Me thod Room Air Oxygen Flow Rate Fraction of Inspir ed Oxygen 03/16/24 19:45 03/16/24 20:06 03/16/24 20:07 Temperature Pulse Rate 81 81 81 Pulse Rate [Pulse Oximeter] Respiratory Rate 24 Blood Pressure 159/76 H Blood Pressure [Ri ght Arm] Blood Pressure [Ri ght Upper Arm] Pulse Oximetry 89 87 L 87 L Oxygen Delivery Me thod Oxygen Flow Rate Fraction of Inspir ed Oxygen 03/16/24 20:15 03/16/24 20:30 03/16/24 20:35 Temperature Pulse Rate 81 81 81 Pulse Rate [Pulse Oximeter] Respiratory Rate Blood Pressure Blood Pressure [Ri ght Arm] Blood Pressure [Ri ght Upper Arm] Pulse Oximetry 91 91 87 L Oxygen Delivery Me thod Oxygen Flow Rate Fraction of Inspir ed Oxygen 03/16/24 20:43 03/16/24 20:45 03/16/24 21:00 Temperature Pulse Rate 82 82 83 Pulse Rate [Pulse Oximeter] Respiratory Rate 24 Blood Pressure 165/75 H Blood Pressure [Ri ght Arm] Blood Pressure [Ri ght Upper Arm] Pulse Oximetry 86 L 86 L 84 L Oxygen Delivery Me thod Oxygen Flow Rate Fraction of Inspir ed Oxygen 03/16/24 21:02 03/16/24 21:15 03/16/24 21:30 Temperature Pulse Rate 83 83 79 Pulse Rate [Pulse Oximeter] Respiratory Rate 24 Blood Pressure 168/79 H Blood Pressure [Ri ght Arm] Blood Pressure [Ri ght Upper Arm] Pulse Oximetry 85 L 88 86 L Oxygen Delivery Me thod Oxygen Flow Rate Fraction of Inspir ed Oxygen 03/16/24 21:31 03/16/24 21:45 03/16/24 22:00 Temperature Pulse Rate 79 77 82 Pulse Rate [Pulse Oximeter] Respiratory Rate 24 Blood Pressure 158/79 H Blood Pressure [Ri ght Arm] Blood Pressure [Ri ght Upper Arm] Pulse Oximetry 85 L 93 93 Oxygen Delivery Me thod Oxygen Flow Rate Fraction of Inspir ed Oxygen 03/16/24 22:01 03/16/24 22:53 03/16/24 22:53 Temperature 98.3 F Pulse Rate 82 Pulse Rate [Pulse Oximeter] 84 Respiratory Rate 24 24 24 Blood Pressure 168/78 H Blood Pressure [Ri ght Arm] 154/71 H Blood Pressure [Ri ght Upper Arm] Pulse Oximetry 93 92 93 Oxygen Delivery Me thod OxyMask OxyMask Oxygen Flow Rate 10 10 Fraction of Inspir ed Oxygen 03/16/24 22:54 03/16/24 23:00 03/16/24 23:00 Temperature Pulse Rate 82 Pulse Rate [Pulse Oximeter] 84 Respiratory Rate 24 Blood Pressure Blood Pressure [Ri ght Arm] Blood Pressure [Ri ght Upper Arm] Pulse Oximetry 93 Oxygen Delivery Me thod Oxygen Flow Rate Fraction of Inspir ed Oxygen 03/17/24 00:00 03/17/24 02:00 03/17/24 03:00 Temperature 97 F L 98.4 F Pulse Rate 66 Pulse Rate [Pulse Oximeter] 85 77 Respiratory Rate 24 14 Blood Pressure Blood Pressure [Ri ght Arm] 158/73 H 127/59 L Blood Pressure [Ri ght Upper Arm] Pulse Oximetry 92 99 Oxygen Delivery Me thod CPAP CPAP Oxygen Flow Rate Fraction of Inspir ed Oxygen 40 03/17/24 03:00 03/17/24 04:00 03/17/24 06:00 Temperature 97.7 F 97.7 F Pulse Rate Pulse Rate [Pulse Oximeter] 67 65 68 Respiratory Rate 14 14 15 Blood Pressure Blood Pressure [Ri ght Arm] 127/58 L 136/73 Blood Pressure [Ri ght Upper Arm] Pulse Oximetry 93 93 Oxygen Delivery Me thod CPAP CPAP Oxygen Flow Rate 10 10 Fraction of Inspir ed Oxygen 25 25 03/17/24 08:00 03/17/24 08:02 Temperature 97.1 F L Pulse Rate Pulse Rate [Pulse Oximeter] 95 Respiratory Rate 16 Blood Pressure Blood Pressure [Ri ght Arm] 139/64 Blood Pressure [Ri ght Upper Arm] Pulse Oximetry 94 Oxygen Delivery Me thod CPAP Oxygen Flow Rate Fraction of Inspir ed Oxygen 25 Documenting provider has reviewed patient's vital signs: yes Labs Labs: Laboratory Results - last 24 hr 03/16/24 03/16/24 03/16/24 20:07 20:25 23:20 WBC 7.27 RBC 3.28 L Hgb 9.6 L Hct 30.6 L MCV 93 MCH 29 MCHC 31 L RDW Coeff of Stefan 13.4 Plt Count 262 Neut % (Auto) 79.3 H Lymph % (Auto) 9.8 L [place] % (Auto) 8.1 Eos % (Auto) 2.6 Baso % (Auto) 0.1 Neut # (Auto) 5.80 Lymph # (Auto) 0.70 L [place] # (Auto) 0.60 Eos # (Auto) 0.19 Baso # (Auto) 0.01 Abs Immat Gran (auto) 0.01 Imm/Tot Granulo (auto) 0.1 VBG pH 7.349 VBG pCO2 52 H VBG pO2 < 30.1 VBG HCO3 29 H Sodium 135 Potassium 5.5 H Chloride 100 Carbon Dioxide 27 Anion Gap 8 BUN 29 Creatinine 1.6 H Estimated Creat Clear 26.19 Estimated GFR 36 Glucose 430 H* Calcium 8.8 Magnesium Total Bilirubin Direct Bilirubin AST ALT Alkaline Phosphatase Troponin I NT-Pro-B Natriuret Pep 1380 Total Protein Albumin TSH Urine Color Yellow Urine Appearance Clear Urine pH 5.0 Ur Specific [place] 1.010 Urine Protein Negative Urine Glucose (UA) 2+ A Urine Ketones Negative Urine Blood 1+ A Urine Nitrite Negative Urine Bilirubin Negative Urine Urobilinogen 0.2 Ur Leukocyte Esterase 3+ A Urine RBC 2-5 A Urine WBC 10-25 A Ur Squamous Epith Cells Few Urine Bacteria Moderate A SARS-CoV-2 (PCR) Negative SARS-CoV-2 Influenza Type A (PCR) Negative PCR FLU A Influenza Type B (PCR) Negative PCR FLU B RSV (PCR) Negative PCR RSV POC Troponin I 0.00 L 03/17/24 06:00 WBC 5.37 RBC 3.14 L Hgb 9.1 L Hct 28.9 L MCV 92 MCH 29 MCHC 32 RDW Coeff of Stefan 13.1 Plt Count 290 Neut % (Auto) 84.7 H Lymph % (Auto) 11.4 L [place] % (Auto) 3.5 Eos % (Auto) 0.0 Baso % (Auto) 0.2 Neut # (Auto) 4.50 Lymph # (Auto) 0.60 L [place] # (Auto) 0.20 Eos # (Auto) 0.00 Baso # (Auto) 0.01 Abs Immat Gran (auto) 0.01 Imm/Tot Granulo (auto) 0.2 VBG pH 7.416 VBG pCO2 47 VBG pO2 49.2 H VBG HCO3 30 H Sodium 138 Potassium 4.2 Chloride 103 Carbon Dioxide 31 Anion Gap 4 L BUN 29 Creatinine 1.5 Estimated Creat Clear 32.17 Estimated GFR 39 Glucose 79 Calcium 9.0 Magnesium 2.3 Total Bilirubin 0.6 Direct Bilirubin 0.4 AST 18 ALT 15 Alkaline Phosphatase 97 Troponin I < 0.01 L NT-Pro-B Natriuret Pep Total Protein 7.3 Albumin 3.6 TSH 0.785 Urine Color Urine Appearance Urine pH Ur Specific [place] Urine Protein Urine Glucose (UA) Urine Ketones Urine Blood Urine Nitrite Urine Bilirubin Urine Urobilinogen Ur Leukocyte Esterase Urine RBC Urine WBC Ur Squamous Epith Cells Urine Bacteria SARS-CoV-2 (PCR) Influenza Type A (PCR) Influenza Type B (PCR) RSV (PCR) POC Troponin I
[2024-03-17] MEDS: LOSARTAN POTASSIUM 50 MG TABLET 12.5 MG PO (10:01)
[2024-03-17] MEDS: OMEPRAZOLE 20 MG CAPSULE DR PO (10:01)
[2024-03-17] MEDS: CETIRIZINE HCL 10 MG TABLET 5 MG PO (10:02)
[2024-03-17] MEDS: SODIUM CHLORIDE 0.9 % (FLUSH) 10 ML SYRINGE 5 ML IVF ×2 (10:02→22:10)
[2024-03-17] MEDS: METOPROLOL SUCCINATE (XL) 25 MG TAB PO (10:03)
[2024-03-17] MEDS: DULOXETINE 30 MG CAPSULE DR 60 MG PO (10:03)
[2024-03-17] MEDS: LEVOTHYROXINE 125 MCG TABLET PO (10:03)
[2024-03-17] MEDS: SENNOSIDES/DOCUSATE TABLET 2 TAB PO (10:04)
[2024-03-17] MEDS: FLUOXETINE HCL 10 MG CAPSULE PO (10:05)
[2024-03-17] MEDS: AMLODIPINE 5 MG TABLET 2.5 MG PO ×2 (10:05→21:22)
[2024-03-17] MEDS: INSULIN GLARGINE,HUM.REC.ANLOG 100 UNIT/ML INSULN.PEN 20 UNIT SUBCUT (10:05)
--- NOTE | 2024-03-17 11:15 | RESP.RT ---
Patient on cpap 10, 25% overnight. Patient off cpap throughout morning. Tolerating room air with oxygen saturation 93% with no respiratory distress. States her breathing is much improved.
[2024-03-17] MEDS: IPRAT-ALBUT 0.5-2.5 MG/3 ML NEB 1 NEB IH ×4 (12:00→23:20)
[2024-03-17] MEDS: INSULIN ASPART 100 UNIT/ML 8 UNIT SUBCUT ×2 (13:11→17:26)
[2024-03-17] MEDS: INSULIN ASPART 100 UNIT/ML SUBCUT ×3 (13:12→21:30)
[2024-03-17] MEDS: TORSEMIDE 20 MG TABLET 40 MG PO (15:42)
--- NOTE | 2024-03-17 16:14 | PC.NURSE ---
End of shift-- Very pleasant and cooperative, alert and oriented patient. VSS and pt is afebrile. CPAP removed this morning by MD and patient has maintained sats >89-90% on RA. Occasionally pt was noted to drop to 86%, but did recover following her neb. She denied any pain today. Crackles auscultated in bilateral bases of lungs. BG 79, 85, 118 and 339 today and pt was given insulin per sliding scale. She ate 100% of a regular diabetic breakfast this morning and refused lunch. Snow is patent and drained >750ml of cloudy, yellow urine today. Telemetry showed NSR. Pt was up to the chair with assist of 1, belt and walker and tolerated it well. Report to LOS Pradhan.
[2024-03-17] MEDS: ATORVASTATIN 10 MG TABLET 20 MG PO (21:22)
[2024-03-17] MEDS: PREGABALIN 50 MG CAPSULE 150 MG PO (21:26)
--- NOTE | 2024-03-17 23:13 | PC.NURSE ---
PT VSS. A & O. A1 with walker and gait belt. Snow cath removed at 1800 and intact. Pt up to bathroom x2 and voided. Tolerated a regular diet well. New Mepelix dressing applied to left heel ulcer.
[2024-03-17] MEDS: ENOXAPARIN 30 MG/0.3ML INJ SUBCUT (23:20)
[2024-03-18] VITALS (11 sets, daily range): BP systolic 115–150; BP diastolic 51–69; PULSE 66–89; RESP 16–18; TEMP 35.9–36.7; O2SAT 88–93
[2024-03-18] MEDS: INSULIN ASPART 100 UNIT/ML SUBCUT ×4 (03:00→17:56)
[2024-03-18] MEDS: OXYCODONE 5 MG TABLET PO ×2 (03:03→07:54)
--- NOTE | 2024-03-18 05:24 | PC.NURSE ---
Shift note: Pt has been in bed throughout the night. Alert and oriented. pain level was good, rated at 1 at 2330. Pt refused scheduled Tylenol at that time. At 0230, pt rated pain level at 5/10, PRN medication given which appeared effective as pt verbalized pain level reduced to 2. Pt has been CPAP throughout the night. Pt had adequate sleep, vitally stable.
[2024-03-18] MEDS: IPRAT-ALBUT 0.5-2.5 MG/3 ML NEB 1 NEB IH ×3 (05:36→17:17)
[2024-03-18 06:28] LABS: Basophils Absolute Auto 0.01 K/uL (0.00-0.30); Basophils Percent Auto 0.1 % (0.0-3.0); Hematocrit 31.3 % (33.0-51.0); Hemoglobin* 9.9 gm/dL (12.0-16.0); Immature Granulocytes Abs Auto 0.02 K/uL (0.00-0.30); Immature Granulocytes Pct Auto 0.2 %; Lymphocytes Percent Auto 12.8 % (20-44); Mean Corpuscular HGB Conc 32 gm/dL (32-36); Mean Corpuscular Hemoglobin 29 pg (26-34); Mean Corpuscular Volume 92 fL (80-100); Monocytes Percent Auto 7.7 % (0.0-11.0); Neutrophils Percent Auto 79.2 % (42.0-72.0); Platelet Count* 347 K/uL (140-440); RDW Coefficient of Variation % 13.2 % (11.5-15.5); Red Blood Count 3.42 m/uL (4.00-5.20); White Blood Count* 10.63 K/uL (4.50-11.00)
[2024-03-18 06:31] LABS: Slide Review Reflex No
[2024-03-18] MEDS: ACETAMINOPHEN 650 MG TABLET ER 1300 MG PO ×2 (06:48→15:27)
[2024-03-18] MEDS: OMEPRAZOLE 20 MG CAPSULE DR PO (06:48)
[2024-03-18] MEDS: LEVOTHYROXINE 125 MCG TABLET PO (06:48)
[2024-03-18 06:52] LABS: Chloride* 100 mmol/L (96-114); Sodium* 139 mmol/L (135-149)
[2024-03-18 06:55] LABS: Anion Gap 9 mEq/L (7-15); Blood Urea Nitrogen* 34 mg/dL (7-30); Calcium* 9.2 mg/dL (8.4-10.6); Carbon Dioxide* 30 mmol/L (20-32); Creatinine* 1.9 mg/dL (0.5-1.5); Estimated Glomerular Filt Rate 29 ml/min; Glucose* 199 mg/dL (60-115)
[2024-03-18] MEDS: MENTHOL 57 GM GEL 1 APPLIC TOPICAL ×3 (09:13→19:37)
[2024-03-18] MEDS: TORSEMIDE 20 MG TABLET 40 MG PO (09:13)
[2024-03-18] MEDS: AMLODIPINE 5 MG TABLET 2.5 MG PO ×2 (09:14→20:36)
[2024-03-18] MEDS: CETIRIZINE HCL 10 MG TABLET 5 MG PO (09:14)
[2024-03-18] MEDS: DULOXETINE 30 MG CAPSULE DR 60 MG PO (09:15)
[2024-03-18] MEDS: PREGABALIN 100 MG CAPSULE 200 MG PO (09:15)
[2024-03-18] MEDS: FLUOXETINE HCL 10 MG CAPSULE PO (09:15)
[2024-03-18] MEDS: SODIUM CHLORIDE 0.9 % (FLUSH) 10 ML SYRINGE 5 ML IVF ×2 (09:17→20:37)
[2024-03-18] MEDS: METOPROLOL SUCCINATE (XL) 25 MG TAB PO (09:17)
[2024-03-18] MEDS: polyethylene glycoL 3350 17 GM PACK PO (09:17)
[2024-03-18] MEDS: LOSARTAN POTASSIUM 50 MG TABLET 12.5 MG PO (09:18)
[2024-03-18] MEDS: INSULIN GLARGINE,HUM.REC.ANLOG 100 UNIT/ML INSULN.PEN 22 UNIT SUBCUT (09:18)
[2024-03-18] MEDS: SENNOSIDES/DOCUSATE TABLET 2 TAB PO (09:18)
[2024-03-18] MEDS: INSULIN ASPART 100 UNIT/ML 8 UNIT SUBCUT ×3 (09:19→17:56)
--- NOTE | 2024-03-18 10:49 | PM.IMPN1 ---
Progress Note: A&P Assessment and plan (1) Hypoxia: Problem details: Due to heart failure exacerbation. CPAP with supplemental oxygen on admission. No longer needing supplemental oxygen Status: Acute (2) Congestive heart failure (CHF): Problem details: Cause for exacerbation is unclear. Now improved with diuresis. Weaned off of CPAP during the day but using at night for sleep apnea Echocardiogram from 01/13/2024: Final Impressions: 1. Normal LV size, normal wall thickness, normal global systolic function with an estimated EF of 60 - 65%. 2. Right ventricular cavity size is normal, global systolic RV function is normal. 3. No significant valve disease detected. Status: Acute (3) Hyperkalemia: Problem details: Likely due to chronic kidney disease. Improved today. Restart losartan and continue to monitor renal function and potassium Status: Acute (4) Diabetes type I: Problem details: Last hemoglobin A1c was 9.3 on 01/12/2024. Current hyperglycemia with glucose of 430. Also receiving steroid medication. Now off insulin drip. Resume home insulin treatment. Titrate Lantus insulin to improve blood sugar control. Status: Acute (5) COPD (chronic obstructive pulmonary disease): Problem details: Uncertain how much this is contributing to her hypoxia. Has mild CO2 retention, venous pCO2 of 52 and pH of 7.35 on admission. Improving Status: Acute (6) Chronic pain syndrome: Problem details: Chronic opioid therapy, Butrans patch Status: Acute (7) Stage 4 chronic kidney disease: Problem details: Creatinine at 1.9 today. EGFR 29. Likely due to restarting losartan and aggressive diuresis. Continue to monitor. Would like to continue losartan for both CKD and heart failure management Status: Acute (8) Abnormal urinalysis: Problem details: Abnormal urinalysis on admission. Culture is growing less than 50,000 colonies mixed positive oni. Discontinue Levaquin started on admission Status: Acute Plan Continue in hospital for 1 more day of monitoring. Anticipate possible discharge to home tomorrow if continued to improve respiratory, cardiac, renal status. Time Spent With Patient Total time spent: Total time spent today is 40 minutes in coordination care discussing with patient other providers ongoing evaluation management Subjective Date Seen: 03/18/24 Interval history: Mikayla Kuhn is a 63 year old female with type 1 diabetes, COPD, heart failure, sleep apnea, opioid dependence, stage 4 kidney disease who presents with a 1 day history of shortness of breath. She reports she was in her usual state of health until last evening when she began to feel dyspnea. She did not notice that it got worse when she laid down last night. Today it got worse and she came to the hospital for evaluation. She has not had a fever, cold, chest pain. She has had a little bit of a cough. She reports she has been taking her medications and has not had any other change in her health status or medications recently. In the emergency department she presented with oxygen saturation of 75% on room air. This improved with oxygen by face mask and then CPAP. Overnight she was treated for COPD with nebulizer and steroids, hypoxia and heart failure were treated with oxygen, CPAP and furosemide. She has had significant improvement in her respiratory status. Hyperglycemia treated with an insulin drip and that has been discontinued overnight. She reports no concerns this morning. 03/18/2024: Patient reports feeling better. She slept with CPAP on overnight but now is on room air breathing comfortably this morning. No chest pain. She has not been out of bed to walk yet. Appetite has been okay. Blood sugar control has been fair with blood sugars mostly in the 200s. She has no other concerns today. Exam Narrative: Exam Narrative: She is alert and appears in no distress. Speech is normal. Respirations are clear to auscultation without wheezing or rales or rhonchi. She has diminished breath sounds. Cardiovascular: S1, S2, regular rate and rhythm. Abdomen: Bowel sounds are active. Abdomen is soft without tenderness or mass. Extremities with 1+ edema on the right and trace edema on the left. Const: Vital Signs, click to edit/add: Vital Signs - 24 hr 03/17/24 12:05 03/17/24 15:00 03/17/24 15:00 Temperature 97.0 F L 97.5 F L Pulse Rate Pulse Rate [Pulse Oximeter] 79 79 Respiratory Rate 18 18 Blood Pressure [Ri t Arm] 131/69 142/63 H Pulse Oximetry 88 92 92 Oxygen Delivery Me thod Room Air Room Air Room Air 03/17/24 15:00 03/17/24 19:00 03/17/24 20:47 Temperature 97.7 F Pulse Rate 80 Pulse Rate [Pulse Oximeter] 77 77 Respiratory Rate 18 18 Blood Pressure [Ri ght Arm] 134/48 L Pulse Oximetry 91 Oxygen Delivery Me thod Room Air 03/17/24 22:10 03/17/24 23:00 03/17/24 23:00 Temperature 97.5 F L Pulse Rate Pulse Rate [Pulse Oximeter] 69 Respiratory Rate 18 Blood Pressure [Ri ght Arm] 145/67 H Pulse Oximetry 99 97 97 Oxygen Delivery Me thod CPAP CPAP 03/17/24 23:00 03/18/24 02:57 03/18/24 02:58 Temperature 96.6 F L Pulse Rate 67 Pulse Rate [Pulse Oximeter] 67 67 Respiratory Rate 18 18 Blood Pressure [Ri ght Arm] 139/59 L Pulse Oximetry 92 Oxygen Delivery Me thod CPAP 03/18/24 07:00 03/18/24 07:00 Temperature Pulse Rate Pulse Rate [Pulse Oximeter] 77 Respiratory Rate 18 18 Blood Pressure [Ri ght Arm] 150/69 H Pulse Oximetry 88 92 Oxygen Delivery Me thod Room Air Room Air Documenting provider has reviewed patient's vital signs: yes Labs Labs: Laboratory Results - last 24 hr 03/18/24 05:21 WBC 10.63 RBC 3.42 L Hgb 9.9 L Hct 31.3 L MCV 92 MCH 29 MCHC 32 RDW Coeff of Stefan 13.2 Plt Count 347 Neut % (Auto) 79.2 H Lymph % (Auto) 12.8 L [place] % (Auto) 7.7 Eos % (Auto) 0.0 Baso % (Auto) 0.1 Neut # (Auto) 8.40 H Lymph # (Auto) 1.40 [place] # (Auto) 0.80 Eos # (Auto) 0.00 Baso # (Auto) 0.01 Abs Immat Gran (auto) 0.02 Imm/Tot Granulo (auto) 0.2 Sodium 139 Potassium 4.0 Chloride 100 Carbon Dioxide 30 Anion Gap 9 BUN 34 H Creatinine 1.9 H Estimated Creat Clear 25.40 Estimated GFR 29 Glucose 199 H Calcium 9.2
--- NOTE | 2024-03-18 15:49 | PC.NURSE ---
End of shift-- Very pleasant and cooperative, alert and oriented patient. VSS and pt is afebrile. SPO2 maintained >88% on RA at rest. She c/o pain in her right knee today and was given PRN Oxycodone in addition to [place] and stated relief. Pt's O2 sats occasionally dropped as low as 86% with activity but pt is able to recover quickly. A few fine crackles noted in the bases of the lungs otherwise CTA. Pt stated improvement in shortness of breath with exertion. She denied nausea and tolerated a regular diet without difficulty. BG 199 and 366 today and pt was given insulin per sliding scale. She was up to the BR with SBA and walker and tolerated it well.
[2024-03-18] MEDS: ATORVASTATIN 10 MG TABLET 20 MG PO (17:58)
[2024-03-18] MEDS: PREGABALIN 50 MG CAPSULE 150 MG PO (20:36)
--- NOTE | 2024-03-18 23:01 | PC.NURSE ---
PT VSS. A & O. Tolerated a diabetic diet well. Had x1 incontinent loose BM this evening. Amb with A1, walker and gait belt. c/o pain in right hip and right knee. Arleneay applied x2 during shift by RN to knee and hip.
[2024-03-19] VITALS (13 sets, daily range): BP systolic 119–152; BP diastolic 57–93; PULSE 64–84; RESP 13–20; TEMP 36–37.1; O2SAT 89–98
[2024-03-19] MEDS: ENOXAPARIN 30 MG/0.3ML INJ SUBCUT ×2 (00:14→23:00)
[2024-03-19] MEDS: IPRAT-ALBUT 0.5-2.5 MG/3 ML NEB 1 NEB IH ×4 (00:14→23:00)
[2024-03-19] MEDS: ACETAMINOPHEN 650 MG TABLET ER 1300 MG PO ×3 (00:14→15:28)
[2024-03-19] MEDS: MENTHOL 57 GM GEL 1 APPLIC TOPICAL ×4 (02:38→21:31)
[2024-03-19] MEDS: LEVOTHYROXINE 125 MCG TABLET PO (06:29)
[2024-03-19] MEDS: OMEPRAZOLE 20 MG CAPSULE DR PO (06:29)
[2024-03-19 06:30] LABS: Basophils Absolute Auto 0.01 K/uL (0.00-0.30); Basophils Percent Auto 0.1 % (0.0-3.0); Eosinophils Absolute Auto 0.36 K/uL (0.00-0.50); Eosinophils Percent Auto 5.1 % (0.0-7.0); Hematocrit 30.7 % (33.0-51.0); Hemoglobin* 9.7 gm/dL (12.0-16.0); Immature Granulocytes Abs Auto 0.07 K/uL (0.00-0.30); Lymphocytes Absolute Auto 2.09 K/uL (0.90-2.90); Lymphocytes Percent Auto 29.5 % (20-44); Mean Corpuscular HGB Conc 32 gm/dL (32-36); Mean Corpuscular Hemoglobin 29 pg (26-34); Mean Corpuscular Volume 91 fL (80-100); Monocytes Percent Auto 7.5 % (0.0-11.0); Neutrophils Absolute Auto 4.02 K/uL (1.7-7.0); Neutrophils Percent Auto 56.8 % (42.0-72.0); Platelet Count* 348 K/uL (140-440); RDW Coefficient of Variation % 13.4 % (11.5-15.5); Red Blood Count 3.39 m/uL (4.00-5.20); White Blood Count* 7.08 K/uL (4.50-11.00)
[2024-03-19 06:45] LABS: Chloride* 101 mmol/L (96-114)
--- NOTE | 2024-03-19 06:45 | PC.NURSE ---
[id number]: Patient pleasant and cooperative. Tolerated CPAP overnight. A1/walker/GB. Denies CP/N/V. SOB with activity. Afebrile. 0200 BG check was 33. Patient responsive and able to eat peanut butter toastx2 and OJ. Recheck BG 106. Denies N/V.
[2024-03-19 06:46] LABS: Potassium* 3.8 mmol/L (3.6-5.1); Sodium* 140 mmol/L (135-149)
[2024-03-19 06:48] LABS: Anion Gap 8 mEq/L (7-15); Carbon Dioxide* 31 mmol/L (20-32); Creatinine* 2.2 mg/dL (0.5-1.5); Est. Creatinine Clearance* 21.93; Estimated Glomerular Filt Rate 25 ml/min
[2024-03-19 06:49] LABS: Blood Urea Nitrogen* 39 mg/dL (7-30); Calcium* 8.8 mg/dL (8.4-10.6); Glucose* 168 mg/dL (60-115)
[2024-03-19 06:53] LABS: Slide Review Reflex No
[2024-03-19] MEDS: CETIRIZINE HCL 10 MG TABLET 5 MG PO (08:50)
[2024-03-19] MEDS: LOSARTAN POTASSIUM 50 MG TABLET 12.5 MG PO (08:50)
[2024-03-19] MEDS: METOPROLOL SUCCINATE (XL) 25 MG TAB PO (08:50)
[2024-03-19] MEDS: DULOXETINE 30 MG CAPSULE DR 60 MG PO (08:50)
[2024-03-19] MEDS: PREGABALIN 100 MG CAPSULE 200 MG PO (08:50)
[2024-03-19] MEDS: AMLODIPINE 5 MG TABLET 2.5 MG PO ×2 (08:52→21:30)
[2024-03-19] MEDS: TORSEMIDE 20 MG TABLET 40 MG PO (08:53)
[2024-03-19] MEDS: FLUOXETINE HCL 10 MG CAPSULE PO (08:55)
[2024-03-19] MEDS: SODIUM CHLORIDE 0.9 % (FLUSH) 10 ML SYRINGE 5 ML IVF ×2 (08:55→21:30)
--- NOTE | 2024-03-19 09:25 | RESP.RT ---
Patient on CPAP full face mask with FiO2 room air, SaO2 decreases to 85-87% with 10-12second apneic spells. FiO2 increased to 23% to increased SaO2 >90% during these spells. Patient is comfortable on these settings. During the day patient is off CPAP with (reported) SaO2 >88%. BBS with Both upper lobes clear and good air movement. Both lower lowers have fine inspiratory crackles with good air movement.
[2024-03-19] MEDS: INSULIN GLARGINE,HUM.REC.ANLOG 100 UNIT/ML INSULN.PEN 20 UNIT SUBCUT (09:51)
--- NOTE | 2024-03-19 10:49 | NUTR.NU ---
RDN with diet education related to diabetic diet order and congestive heart failure (CHF) exacerbation. Patient admitted for CHF exacerbation and hypoxia. Past medical history includes type 1 diabetes mellitus, COPD, and chronic kidney disease stage 4. Current weight 213 lb 6 oz; height 5ft 3in; BMI 37.8 kg/m2. Weight is down from 221 lbs on admission due to diuresis. Current diet is diabetic. Meal intakes adequate at mainly 100% since admit. RDN visited with patient whom reports trying to follow of low sodium diet at home. She also tries to keep her carbohydrates consistent in her diet. She had no questions related to diabetic diet at this time. She declined diet education related to diabetic and CHF diet, however accepted educational materials. She had no questions or concerns. RDN will continue to monitor and follow-up prn.
[2024-03-19] MEDS: INSULIN ASPART 100 UNIT/ML 8 UNIT SUBCUT ×2 (12:42→17:20)
--- NOTE | 2024-03-19 13:26 | PM.IMPN1 ---
Progress Note: A&P Assessment and plan (1) Hypoxia: Problem details: Due to heart failure exacerbation. CPAP with supplemental oxygen on admission. No longer needing supplemental oxygen Status: Acute (2) Congestive heart failure (CHF): Problem details: Improved but still some evidence of volume overload. Cause for exacerbation is unclear. Now improved with diuresis. Weaned off of CPAP during the day but using at night for sleep apnea Echocardiogram from 01/13/2024: Final Impressions: 1. Normal LV size, normal wall thickness, normal global systolic function with an estimated EF of 60 - 65%. 2. Right ventricular cavity size is normal, global systolic RV function is normal. 3. No significant valve disease detected. Status: Acute (3) Hyperkalemia: Problem details: Likely due to chronic kidney disease. Improved today. Status: Acute (4) Diabetes type I: Problem details: Hypoglycemia likely due to combination of inadequate evening calories and sliding scale insulin plus increased Lantus yesterday. Resume previous Lantus dose and encourage evening snack. Last hemoglobin A1c was 9.3 on 01/12/2024. Current hyperglycemia with glucose of 430. Also receiving steroid medication. Now off insulin drip. Resume home insulin treatment. Titrate Lantus insulin to improve blood sugar control. Status: Acute (5) COPD (chronic obstructive pulmonary disease): Problem details: Uncertain how much this is contributing to her hypoxia. Has mild CO2 retention, venous pCO2 of 52 and pH of 7.35 on admission. Improving Status: Acute (6) Chronic pain syndrome: Problem details: Chronic opioid therapy, Butrans patch Status: Acute (7) Stage 4 chronic kidney disease: Problem details: Creatinine at 2.2 today. EGFR 25. Likely due to restarting losartan and aggressive diuresis. Continue to monitor. Stop losartan and monitor. Still appears to need diuresis Status: Acute (8) Abnormal urinalysis: Problem details: Abnormal urinalysis on admission. Culture is growing less than 50,000 colonies mixed positive oni. Discontinue Levaquin started on admission Status: Acute Plan Continue to monitor in hospital for ongoing diuresis, monitoring of renal function and blood sugar. Time Spent With Patient Total time spent: 45 minutes Subjective Date Seen: 03/19/24 Interval history: Mikayla Kuhn is a 63 year old female with type 1 diabetes, COPD, heart failure, sleep apnea, opioid dependence, stage 4 kidney disease who presents with a 1 day history of shortness of breath. She reports she was in her usual state of health until last evening when she began to feel dyspnea. She did not notice that it got worse when she laid down last night. Today it got worse and she came to the hospital for evaluation. She has not had a fever, cold, chest pain. She has had a little bit of a cough. She reports she has been taking her medications and has not had any other change in her health status or medications recently. In the emergency department she presented with oxygen saturation of 75% on room air. This improved with oxygen by face mask and then CPAP. Overnight she was treated for COPD with nebulizer and steroids, hypoxia and heart failure were treated with oxygen, CPAP and furosemide. She has had significant improvement in her respiratory status. Hyperglycemia treated with an insulin drip and that has been discontinued overnight. She reports no concerns this morning. 03/18/2024: Patient reports feeling better. She slept with CPAP on overnight but now is on room air breathing comfortably this morning. No chest pain. She has not been out of bed to walk yet. Appetite has been okay. Blood sugar control has been fair with blood sugars mostly in the 200s. She has no other concerns today. 03/19/2024: Patient had low blood sugar, 33, during the night. She was symptomatic. She had received her scheduled mealtime insulin last evening with some sliding scale but no insulin after that. Received Lantus 22 units yesterday morning, up from 20 units previously. Otherwise slept well on CPAP. Reports breathing on room air is good this morning. No appetite this morning. No other concerns. Exam Narrative: Exam Narrative: She is alert and appears in no distress. Breathing is unlabored. Respirations with a few basilar crackles bilaterally. Cardiovascular: S1, S2, regular rate and rhythm. Abdomen: Bowel sounds active. Abdomen is soft without tenderness or mass. Extremities with 1+ edema Const: Vital Signs, click to edit/add: Vital Signs - 24 hr 03/18/24 15:00 03/18/24 15:00 03/18/24 15:00 Temperature 98.1 F Pulse Rate 72 Pulse Rate [Pulse Oximeter] 75 Respiratory Rate 16 Blood Pressure [Le ft Arm] Blood Pressure [Ri ght Arm] Pulse Oximetry 91 91 Oxygen Delivery Me thod Room Air Room Air Oxygen Flow Rate Fraction of Inspir ed Oxygen 03/18/24 19:00 03/18/24 20:00 03/18/24 22:00 Temperature 97.8 F Pulse Rate Pulse Rate [Pulse Oximeter] 89 67 Respiratory Rate 16 16 Blood Pressure [Le ft Arm] Blood Pressure [Ri ght Arm] 141/65 H Pulse Oximetry 92 93 Oxygen Delivery Me thod Room Air Oxygen Flow Rate 10 Fraction of Inspir ed Oxygen 25 03/18/24 23:00 03/19/24 00:11 03/19/24 00:13 Temperature 96.8 F L Pulse Rate 66 Pulse Rate [Pulse Oximeter] 65 Respiratory Rate 13 13 Blood Pressure [Le ft Arm] Blood Pressure [Ri ght Arm] 152/68 H Pulse Oximetry 94 94 Oxygen Delivery Me thod CPAP CPAP Oxygen Flow Rate Fraction of Inspir ed Oxygen 03/19/24 03:07 03/19/24 08:14 03/19/24 08:32 Temperature 97.1 F L Pulse Rate 64 Pulse Rate [Pulse Oximeter] 82 Respiratory Rate 15 14 Blood Pressure [Le ft Arm] Blood Pressure [Ri ght Arm] 138/57 L Pulse Oximetry 96 89 Oxygen Delivery Me thod CPAP CPAP Oxygen Flow Rate Fraction of Inspir ed Oxygen 23 03/19/24 08:32 03/19/24 09:23 Temperature Pulse Rate Pulse Rate [Pulse Oximeter] 81 Respiratory Rate 14 16 Blood Pressure [Le ft Arm] 144/77 H Blood Pressure [Ri ght Arm] Pulse Oximetry 89 91 Oxygen Delivery Me thod CPAP CPAP Oxygen Flow Rate Fraction of Inspir ed Oxygen 23 Documenting provider has reviewed patient's vital signs: yes Labs Labs: Laboratory Results - last 24 hr 03/19/24 06:19 WBC 7.08 RBC 3.39 L Hgb 9.7 L Hct 30.7 L MCV 91 MCH 29 MCHC 32 RDW Coeff of Stefan 13.4 Plt Count 348 Neut % (Auto) 56.8 Lymph % (Auto) 29.5 [place] % (Auto) 7.5 Eos % (Auto) 5.1 Baso % (Auto) 0.1 Neut # (Auto) 4.02 Lymph # (Auto) 2.09 [place] # (Auto) 0.50 Eos # (Auto) 0.36 Baso # (Auto) 0.01 Abs Immat Gran (auto) 0.07 Imm/Tot Granulo (auto) 1.0 Sodium 140 Potassium 3.8 Chloride 101 Carbon Dioxide 31 Anion Gap 8 BUN 39 H Creatinine 2.2 H Estimated Creat Clear 21.93 Estimated GFR 25 Glucose 168 H Calcium 8.8
--- NOTE | 2024-03-19 13:42 | PC.NURSE ---
Shift Summary: Patient pleasant and cooperative. Up with one assist, walker and gait belt. Vitals stable and WNL, Cpap on when sleeping, RA when awake. Drowsy this morning, stated she did not get much sleep, refused breakfast. Per MD hold Novolog this morning. Patient had lunch and scheduled novolog with meal. Denies pain. Tolerating regular diet.
[2024-03-19] MEDS: ATORVASTATIN 10 MG TABLET 20 MG PO (17:19)
[2024-03-19] MEDS: OXYCODONE 5 MG TABLET PO (18:24)
[2024-03-19] MEDS: PREGABALIN 50 MG CAPSULE 150 MG PO (21:30)
[2024-03-20] VITALS (9 sets, daily range): BP systolic 104–133; BP diastolic 48–70; PULSE 68–88; RESP 12–20; TEMP 35.9–36.6; O2SAT 90–96
[2024-03-20] MEDS: ACETAMINOPHEN 650 MG TABLET ER 1300 MG PO ×3 (00:15→15:36)
[2024-03-20] MEDS: MENTHOL 57 GM GEL 1 APPLIC TOPICAL ×4 (02:46→20:54)
--- NOTE | 2024-03-20 05:29 | PC.NURSE ---
[id number]: Patient pleasant and cooperative. A&Ox3. A1/walker/GB. Continent/incontinent. 2100 BG 100. Patient ate bedtime snack of yogurt and nicho crackers. 0200 BG 32. Patient responsive and able to eat peanut butter toastx2 and OJx2. BG recheck 114. CPAP during noc.
[2024-03-20 06:20] LABS: Basophils Absolute Auto 0.03 K/uL (0.00-0.30); Basophils Percent Auto 0.4 % (0.0-3.0); Eosinophils Absolute Auto 0.48 K/uL (0.00-0.50); Eosinophils Percent Auto 6.9 % (0.0-7.0); Hematocrit 32.2 % (33.0-51.0); Hemoglobin* 10.1 gm/dL (12.0-16.0); Immature Granulocytes Abs Auto 0.03 K/uL (0.00-0.30); Immature Granulocytes Pct Auto 0.4 %; Lymphocytes Absolute Auto 1.93 K/uL (0.90-2.90); Lymphocytes Percent Auto 27.6 % (20-44); Mean Corpuscular HGB Conc 31 gm/dL (32-36); Mean Corpuscular Hemoglobin 29 pg (26-34); Mean Corpuscular Volume 92 fL (80-100); Monocytes Percent Auto 10.1 % (0.0-11.0); Neutrophils Absolute Auto 3.82 K/uL (1.7-7.0); Neutrophils Percent Auto 54.6 % (42.0-72.0); Platelet Count* 380 K/uL (140-440); RDW Coefficient of Variation % 13.6 % (11.5-15.5); Red Blood Count 3.52 m/uL (4.00-5.20)
[2024-03-20 06:22] LABS: Slide Review Reflex No
[2024-03-20 06:35] LABS: Chloride* 100 mmol/L (96-114); Potassium* 3.9 mmol/L (3.6-5.1); Sodium* 140 mmol/L (135-149)
[2024-03-20 06:38] LABS: Anion Gap 6 mEq/L (7-15); Blood Urea Nitrogen* 41 mg/dL (7-30); Carbon Dioxide* 34 mmol/L (20-32); Creatinine* 2.1 mg/dL (0.5-1.5); Est. Creatinine Clearance* 22.98; Estimated Glomerular Filt Rate 26 ml/min; Glucose* 111 mg/dL (60-115)
[2024-03-20 06:39] LABS: Calcium* 8.7 mg/dL (8.4-10.6)
[2024-03-20] MEDS: OMEPRAZOLE 20 MG CAPSULE DR PO (07:22)
[2024-03-20] MEDS: LEVOTHYROXINE 125 MCG TABLET PO (07:22)
[2024-03-20] MEDS: SENNOSIDES/DOCUSATE TABLET 2 TAB PO ×2 (09:44→09:45)
[2024-03-20] MEDS: DULOXETINE 30 MG CAPSULE DR 60 MG PO (09:44)
[2024-03-20] MEDS: AMLODIPINE 5 MG TABLET 2.5 MG PO ×2 (09:45→20:54)
[2024-03-20] MEDS: METOPROLOL SUCCINATE (XL) 25 MG TAB PO (09:45)
[2024-03-20] MEDS: FLUOXETINE HCL 10 MG CAPSULE PO (09:46)
[2024-03-20] MEDS: CETIRIZINE HCL 10 MG TABLET 5 MG PO (09:46)
[2024-03-20] MEDS: SODIUM CHLORIDE 0.9 % (FLUSH) 10 ML SYRINGE 5 ML IVF ×2 (09:51→22:00)
[2024-03-20] MEDS: PREGABALIN 100 MG CAPSULE 200 MG PO (10:01)
[2024-03-20] MEDS: TORSEMIDE 20 MG TABLET 40 MG PO (10:01)
[2024-03-20] MEDS: OXYCODONE 5 MG TABLET PO ×2 (10:01→20:54)
[2024-03-20] MEDS: INSULIN GLARGINE,HUM.REC.ANLOG 100 UNIT/ML INSULN.PEN 15 UNIT SUBCUT (10:19)
--- NOTE | 2024-03-20 13:16 | P.IMPN_ITS ---
Progress Note: A&P Assessment and plan (1) Hypoxia: Problem details: Due to heart failure exacerbation. CPAP with supplemental oxygen on admission. No longer needing supplemental oxygen Status: Acute (2) Congestive heart failure (CHF): Problem details: Improved but still some evidence of volume overload. Cause for exacerbation is unclear. Now improved with diuresis. Weaned off of CPAP during the day but using at night for sleep apnea Echocardiogram from 01/13/2024: Final Impressions: 1. Normal LV size, normal wall thickness, normal global systolic function with an estimated EF of 60 - 65%. 2. Right ventricular cavity size is normal, global systolic RV function is normal. 3. No significant valve disease detected. Status: Acute (3) Hyperkalemia: Problem details: Likely due to chronic kidney disease. Resolved with diuresis Status: Acute (4) Diabetes type I: Problem details: Hypoglycemia likely due to combination of inadequate evening calories and sliding scale insulin plus increased Lantus yesterday. Resume previous Lantus dose and encourage evening snack. Last hemoglobin A1c was 9.3 on 01/12/2024. Current hyperglycemia with glucose of 430. Also receiving steroid medication. Now off insulin drip. Resume home insulin treatment. Titrate Lantus insulin to improve blood sugar control. Status: Acute (5) COPD (chronic obstructive pulmonary disease): Problem details: Uncertain how much this is contributing to her hypoxia. Has mild CO2 retention, venous pCO2 of 52 and pH of 7.35 on admission. Improving Status: Acute (6) Chronic pain syndrome: Problem details: Chronic opioid therapy, Butrans patch Status: Acute (7) Stage 4 chronic kidney disease: Problem details: Creatinine at 2.1 today. EGFR 26. Likely due to restarting losartan and aggressive diuresis. Continue to monitor. Stop losartan and monitor. Still appears to need diuresis Status: Acute (8) Abnormal urinalysis: Problem details: Abnormal urinalysis on admission. Culture is growing less than 50,000 colonies mixed positive oni. Discontinue Levaquin started on admission Status: Acute (9) Nocturnal hypoglycemia: Problem details: Per patient this is a chronic problem requiring bedtime and nighttime snacks Status: Acute Plan Continue in hospital for monitoring and management of heart failure, acute on chronic kidney injury, nocturnal hypoglycemia. Time Spent With Patient Total time spent: Total time spent today is 40 minutes in coordination of care discussing with patient and other providers management of nocturnal hypoglycemia, heart failure, acute kidney injury. Subjective Date Seen: 03/20/24 Interval history: Mikayla Kuhn is a 63 year old female with type 1 diabetes, COPD, heart failure, sleep apnea, opioid dependence, stage 4 kidney disease who presents with a 1 day history of shortness of breath. She reports she was in her usual state of health until last evening when she began to feel dyspnea. She did not notice that it got worse when she laid down last night. Today it got worse and she came to the hospital for evaluation. She has not had a fever, cold, chest pain. She has had a little bit of a cough. She reports she has been taking her medications and has not had any other change in her health status or medications recently. In the emergency department she presented with oxygen saturation of 75% on room air. This improved with oxygen by face mask and then CPAP. Overnight she was treated for COPD with nebulizer and steroids, hypoxia and heart failure were treated with oxygen, CPAP and furosemide. She has had significant improvement in her respiratory status. Hyperglycemia treated with an insulin drip and that has been discontinued overnight. She reports no concerns this morning. 03/18/2024: Patient reports feeling better. She slept with CPAP on overnight but now is on room air breathing comfortably this morning. No chest pain. She has not been out of bed to walk yet. Appetite has been okay. Blood sugar control has been fair with blood sugars mostly in the 200s. She has no other concerns today. 03/19/2024: Patient had low blood sugar, 33, during the night. She was symptomatic. She had received her scheduled mealtime insulin last evening with some sliding scale but no insulin after that. Received Lantus 22 units yesterday morning, up from 20 units previously. Otherwise slept well on CPAP. Reports breathing on room air is good this morning. No appetite this morning. No other concerns 03/20/2024: Patient again had hypoglycemia in the middle of the night with a blood sugar of 30. She was symptomatic with this. She tells me low blood sugars commonly occur at night when she is at home. She always has a bedtime snack and also has food available when she wakes up in the middle the night. She reports her breathing is good. No other concerns today per Exam Narrative: Exam Narrative: She is alert and appears in no distress. Respirations with occasional basilar crackle. Unlabored. Cardiovascular: S1, S2, regular rate and rhythm. Abdomen: Bowel sounds active. Abdomen is soft without tenderness or mass. Extremities with trace edema bilateral Const: Vital Signs, click to edit/add: Vital Signs - 24 hr 03/19/24 15:27 03/19/24 15:27 03/19/24 15:30 Temperature 98.8 F Pulse Rate 76 Pulse Rate [Pulse Oximeter] 77 Respiratory Rate 18 18 Blood Pressure [Le ft Arm] 119/60 Blood Pressure [Ri ght Arm] Pulse Oximetry 95 95 Oxygen Delivery Me thod Room Air Room Air 03/19/24 19:45 03/19/24 21:43 03/19/24 23:00 Temperature 96.9 F L Pulse Rate 73 Pulse Rate [Pulse Oximeter] 84 Respiratory Rate 20 Blood Pressure [Le ft Arm] Blood Pressure [Ri ght Arm] 144/93 H Pulse Oximetry 91 89 Oxygen Delivery Me thod Room Air 03/19/24 23:00 03/19/24 23:10 03/20/24 02:29 Temperature 97.4 F L 96.7 F L Pulse Rate Pulse Rate [Pulse Oximeter] 83 74 Respiratory Rate 18 20 20 Blood Pressure [Le ft Arm] 150/59 H 115/52 L Blood Pressure [Ri ght Arm] Pulse Oximetry 95 98 94 Oxygen Delivery Me thod CPAP Room Air Room Air 03/20/24 08:00 03/20/24 08:00 03/20/24 08:04 Temperature 97.8 F Pulse Rate 68 Pulse Rate [Pulse Oximeter] 69 Respiratory Rate 12 12 Blood Pressure [Le ft Arm] 108/65 Blood Pressure [Ri ght Arm] Pulse Oximetry 93 93 Oxygen Delivery Me thod CPAP CPAP 03/20/24 11:43 Temperature 97.0 F L Pulse Rate Pulse Rate [Pulse Oximeter] 77 Respiratory Rate 16 Blood Pressure [Le ft Arm] 121/70 Blood Pressure [Ri ght Arm] Pulse Oximetry 94 Oxygen Delivery Me thod Room Air Documenting provider has reviewed patient's vital signs: yes Labs Labs: Laboratory Results - last 24 hr 03/20/24 05:58 WBC 7.00 RBC 3.52 L Hgb 10.1 L Hct 32.2 L MCV 92 MCH 29 MCHC 31 L RDW Coeff of Stefan 13.6 Plt Count 380 Neut % (Auto) 54.6 Lymph % (Auto) 27.6 [place] % (Auto) 10.1 Eos % (Auto) 6.9 Baso % (Auto) 0.4 Neut # (Auto) 3.82 Lymph # (Auto) 1.93 [place] # (Auto) 0.70 Eos # (Auto) 0.48 Baso # (Auto) 0.03 Abs Immat Gran (auto) 0.03 Imm/Tot Granulo (auto) 0.4 Sodium 140 Potassium 3.9 Chloride 100 Carbon Dioxide 34 H Anion Gap 6 L BUN 41 H Creatinine 2.1 H Estimated Creat Clear 22.98 Estimated GFR 26 Glucose 111 Calcium 8.7
[2024-03-20] MEDS: INSULIN ASPART 100 UNIT/ML SUBCUT ×2 (13:47→18:00)
[2024-03-20] MEDS: INSULIN ASPART 100 UNIT/ML 8 UNIT SUBCUT ×2 (13:47→18:00)
[2024-03-20] MEDS: ATORVASTATIN 10 MG TABLET 20 MG PO (17:59)
[2024-03-20] MEDS: PREGABALIN 50 MG CAPSULE 150 MG PO (20:54)
[2024-03-20] MEDS: IPRAT-ALBUT 0.5-2.5 MG/3 ML NEB 1 NEB IH (23:57)
[2024-03-20] MEDS: ENOXAPARIN 30 MG/0.3ML INJ SUBCUT (23:57)
[2024-03-21] VITALS (8 sets, daily range): BP systolic 101–135; BP diastolic 43–67; PULSE 67–82; RESP 16–18; TEMP 35.9–36.5; O2SAT 93–98
[2024-03-21 06:40] LABS: Basophils Absolute Auto 0.02 K/uL (0.00-0.30); Basophils Percent Auto 0.3 % (0.0-3.0); Eosinophils Absolute Auto 0.42 K/uL (0.00-0.50); Eosinophils Percent Auto 6.1 % (0.0-7.0); Hematocrit 32.2 % (33.0-51.0); Immature Granulocytes Abs Auto 0.07 K/uL (0.00-0.30); Lymphocytes Absolute Auto 2.21 K/uL (0.90-2.90); Lymphocytes Percent Auto 31.8 % (20-44); Mean Corpuscular HGB Conc 31 gm/dL (32-36); Mean Corpuscular Hemoglobin 29 pg (26-34); Mean Corpuscular Volume 93 fL (80-100); Monocytes Percent Auto 8.6 % (0.0-11.0); Neutrophils Absolute Auto 3.62 K/uL (1.7-7.0); Neutrophils Percent Auto 52.2 % (42.0-72.0); Platelet Count* 394 K/uL (140-440); RDW Coefficient of Variation % 13.9 % (11.5-15.5); Red Blood Count 3.47 m/uL (4.00-5.20); White Blood Count* 6.94 K/uL (4.50-11.00)
[2024-03-21 06:47] LABS: Slide Review Reflex No
[2024-03-21] MEDS: IPRAT-ALBUT 0.5-2.5 MG/3 ML NEB 1 NEB IH ×4 (06:54→22:58)
[2024-03-21] MEDS: OMEPRAZOLE 20 MG CAPSULE DR PO (06:55)
[2024-03-21] MEDS: LEVOTHYROXINE 125 MCG TABLET PO (06:55)
[2024-03-21] MEDS: ACETAMINOPHEN 650 MG TABLET ER 1300 MG PO ×3 (06:55→22:58)
[2024-03-21 06:59] LABS: Chloride* 101 mmol/L (96-114); Potassium* 4.1 mmol/L (3.6-5.1); Sodium* 141 mmol/L (135-149)
[2024-03-21 07:02] LABS: Anion Gap 6 mEq/L (7-15); Carbon Dioxide* 34 mmol/L (20-32); Creatinine* 2.3 mg/dL (0.5-1.5); Est. Creatinine Clearance* 20.98; Estimated Glomerular Filt Rate 23 ml/min
[2024-03-21 07:03] LABS: Blood Urea Nitrogen* 51 mg/dL (7-30); Calcium* 8.5 mg/dL (8.4-10.6); Glucose* 110 mg/dL (60-115)
--- NOTE | 2024-03-21 07:28 | PC.NURSE ---
END OF SHIFT NOTE:?A&O. DENIES CP, SOB, N/V. PT REMAINED IN BED THIS SHIFT. CPAP APPLIED AT 0100 PER PT REQUEST. VSS ON RA AND CPAP; AFEBRILE. WOUND TO LEFT HEEL COVERED WITH MEPILEX; C/D/I. ACCU CHECK 33 @2125. PT PROVIDED JUICE AND SNACK; RECHECK 119 @2230. ACCU CHECK PT SYMPTOMATIC 39 @0030. PT PROVIDED JUICE AND SNACK; RECHECK 119 @0210. DEXCOM TO PT'S LEFT UPPER ARM.?BED ALARM ON AND CALL LIGHT WITHIN PT?S REACH.?
[2024-03-21] MEDS: FLUOXETINE HCL 10 MG CAPSULE PO (08:50)
[2024-03-21] MEDS: MENTHOL 57 GM GEL 1 APPLIC TOPICAL ×3 (08:50→19:20)
[2024-03-21] MEDS: METOPROLOL SUCCINATE (XL) 25 MG TAB PO (08:51)
[2024-03-21] MEDS: CETIRIZINE HCL 10 MG TABLET 5 MG PO (08:51)
[2024-03-21] MEDS: TORSEMIDE 20 MG TABLET 40 MG PO (08:51)
[2024-03-21] MEDS: AMLODIPINE 5 MG TABLET 2.5 MG PO ×2 (08:51→20:57)
[2024-03-21] MEDS: DULOXETINE 30 MG CAPSULE DR 60 MG PO (08:51)
[2024-03-21] MEDS: PREGABALIN 100 MG CAPSULE 200 MG PO (08:51)
[2024-03-21] MEDS: INSULIN ASPART 100 UNIT/ML 8 UNIT SUBCUT ×2 (08:52→17:29)
[2024-03-21] MEDS: SODIUM CHLORIDE 0.9 % (FLUSH) 10 ML SYRINGE 5 ML IVF ×2 (10:41→20:57)
[2024-03-21] MEDS: OXYCODONE 5 MG TABLET PO ×2 (11:58→19:20)
--- NOTE | 2024-03-21 12:25 | P.IMPN_ITS ---
Progress Note: A&P Assessment and plan (1) Hypoxia: Problem details: Due to heart failure exacerbation. CPAP with supplemental oxygen on admission. No longer needing supplemental oxygen Status: Acute (2) Congestive heart failure (CHF): Problem details: Improved but still some evidence of volume overload. Cause for exacerbation is unclear. Now improved with diuresis as tolerated. Weaned off of CPAP during the day but using at night for sleep apnea Echocardiogram from 01/13/2024: Final Impressions: 1. Normal LV size, normal wall thickness, normal global systolic function with an estimated EF of 60 - 65%. 2. Right ventricular cavity size is normal, global systolic RV function is normal. 3. No significant valve disease detected. Status: Acute (3) Hyperkalemia: Problem details: Likely due to chronic kidney disease. Resolved with diuresis. Status: Acute (4) Diabetes type I: Problem details: Despite reductions in Lantus dose and bedtime snack still having nocturnal hypoglycemia. Will hold long-acting insulin and just use mealtime insulin for now. Last hemoglobin A1c was 9.3 on 01/12/2024. Current hyperglycemia with glucose of 430. Also receiving steroid medication. Now off insulin drip. Resume home insulin treatment. Titrate Lantus insulin to improve blood sugar control. Status: Acute (5) COPD (chronic obstructive pulmonary disease): Problem details: Uncertain how much this is contributing to her hypoxia. Has mild CO2 retention, venous pCO2 of 52 and pH of 7.35 on admission. Improving Status: Acute (6) Chronic pain syndrome: Problem details: Chronic opioid therapy, Butrans patch Status: Acute (7) Stage 4 chronic kidney disease: Problem details: Creatinine at 2.3 today. Likely due to restarting losartan and aggressive diuresis. Continue to monitor. Stop losartan and monitor. Still appears to need diuresis Status: Acute (8) Abnormal urinalysis: Problem details: Abnormal urinalysis on admission. Culture is growing less than 50,000 colonies mixed positive oni. Discontinue Levaquin started on admission Status: Acute (9) Nocturnal hypoglycemia: Problem details: Per patient this is a chronic problem requiring bedtime and nighttime snacks. Will stop Lantus/basal insulin and monitor Status: Acute Plan Continue in hospital for management of heart failure, acute on chronic kidney disease and hypoglycemia. Time Spent With Patient Total time spent: Total time spent today is 40 minutes in coordination care discussing with patient other providers ongoing evaluation management these problems Subjective Date Seen: 03/21/24 Interval history: Mikayla Kuhn is a 63 year old female with type 1 diabetes, COPD, heart failure, sleep apnea, opioid dependence, stage 4 kidney disease who presents with a 1 day history of shortness of breath. She reports she was in her usual state of health until last evening when she began to feel dyspnea. She did not notice that it got worse when she laid down last night. Today it got worse and she came to the hospital for evaluation. She has not had a fever, cold, chest pain. She has had a little bit of a cough. She reports she has been taking her medications and has not had any other change in her health status or medications recently. In the emergency department she presented with oxygen saturation of 75% on room air. This improved with oxygen by face mask and then CPAP. Overnight she was treated for COPD with nebulizer and steroids, hypoxia and heart failure were treated with oxygen, CPAP and furosemide. She has had significant improvement in her respiratory status. Hyperglycemia treated with an insulin drip and that has been discontinued overnight. She reports no concerns this morning. 03/18/2024: Patient reports feeling better. She slept with CPAP on overnight but now is on room air breathing comfortably this morning. No chest pain. She has not been out of bed to walk yet. Appetite has been okay. Blood sugar control has been fair with blood sugars mostly in the 200s. She has no other concerns today. 03/19/2024: Patient had low blood sugar, 33, during the night. She was symptomatic. She had received her scheduled mealtime insulin last evening with some sliding scale but no insulin after that. Received Lantus 22 units yesterday morning, up from 20 units previously. Otherwise slept well on CPAP. Reports breathing on room air is good this morning. No appetite this morning. No other concerns 03/20/2024: Patient again had hypoglycemia in the middle of the night with a blood sugar of 30. She was symptomatic with this. She tells me low blood sugars commonly occur at night when she is at home. She always has a bedtime snack and also has food available when she wakes up in the middle the night. She reports her breathing is good. No other concerns today. 03/21/2024: She reports generally doing well. She again had symptomatic blood sugar of 33 shortly after midnight. This was despite anticipation of hypoglycemia with bedtime snack. She otherwise reports feeling well and has no other concerns today. Exam Narrative: Exam Narrative: She is alert and appears in no distress. Respirations with a rare basilar crackle. No wheezing. Cardiovascular: S1, S2, regular rate and rhythm. Abdomen: Bowel sounds active. Abdomen is soft without tenderness. Extremities with 1+ edema bilaterally. Const: Vital Signs, click to edit/add: Vital Signs - 24 hr 03/20/24 15:44 03/20/24 15:44 03/20/24 16:37 Temperature 97.1 F L Pulse Rate 79 Pulse Rate [Pulse Oximeter] 88 Respiratory Rate 16 16 Blood Pressure [Le ft Arm] 104/48 L Blood Pressure [Ri ght Arm] Pulse Oximetry 96 96 Oxygen Delivery Me thod Room Air Room Air 03/20/24 21:00 03/20/24 22:16 03/20/24 23:45 Temperature Pulse Rate 76 Pulse Rate [Pulse Oximeter] 77 Respiratory Rate 16 Blood Pressure [Le ft Arm] 133/56 L Blood Pressure [Ri ght Arm] Pulse Oximetry 93 93 Oxygen Delivery Me thod Room Air 03/20/24 23:45 03/20/24 23:45 03/20/24 23:45 Temperature 97.1 F L Pulse Rate Pulse Rate [Pulse Oximeter] 77 77 Respiratory Rate 16 16 16 Blood Pressure [Le ft Arm] Blood Pressure [Ri ght Arm] 119/63 Pulse Oximetry 90 Oxygen Delivery Me thod Room Air Room Air 03/21/24 06:50 03/21/24 07:32 03/21/24 07:32 Temperature 97.6 F 97.1 F L Pulse Rate Pulse Rate [Pulse Oximeter] 67 72 Respiratory Rate 18 16 16 Blood Pressure [Le ft Arm] 121/63 135/67 Blood Pressure [Ri ght Arm] Pulse Oximetry 93 93 93 Oxygen Delivery Me thod Room Air Room Air Room Air 03/21/24 08:01 03/21/24 11:56 Temperature 97.2 F L Pulse Rate 76 Pulse Rate [Pulse Oximeter] 82 Respiratory Rate 16 Blood Pressure [Le ft Arm] 101/53 L Blood Pressure [Ri ght Arm] Pulse Oximetry 98 Oxygen Delivery Me thod Room Air Documenting provider has reviewed patient's vital signs: yes Labs Labs: Laboratory Results - last 24 hr 03/21/24 06:18 WBC 6.94 RBC 3.47 L Hgb 10.0 L Hct 32.2 L MCV 93 MCH 29 MCHC 31 L RDW Coeff of Stefan 13.9 Plt Count 394 Neut % (Auto) 52.2 Lymph % (Auto) 31.8 [place] % (Auto) 8.6 Eos % (Auto) 6.1 Baso % (Auto) 0.3 Neut # (Auto) 3.62 Lymph # (Auto) 2.21 [place] # (Auto) 0.60 Eos # (Auto) 0.42 Baso # (Auto) 0.02 Abs Immat Gran (auto) 0.07 Imm/Tot Granulo (auto) 1.0 Sodium 141 Potassium 4.1 Chloride 101 Carbon Dioxide 34 H Anion Gap 6 L BUN 51 H Creatinine 2.3 H Estimated Creat Clear 20.98 Estimated GFR 23 Glucose 110 Calcium 8.5
[2024-03-21] MEDS: ATORVASTATIN 10 MG TABLET 20 MG PO (17:29)
[2024-03-21] MEDS: polyethylene glycoL 3350 17 GM PACK PO (20:56)
[2024-03-21] MEDS: PREGABALIN 50 MG CAPSULE 150 MG PO (20:56)
[2024-03-21] MEDS: SENNOSIDES/DOCUSATE TABLET 2 TAB PO (20:57)
[2024-03-21] MEDS: ENOXAPARIN 30 MG/0.3ML INJ SUBCUT (22:58)
--- NOTE | 2024-03-21 23:03 | PC.NURSE ---
End of shift [id number]: Pt has been A&O, afebrile and VSS. She is SBA with 2ww for ambulation and transfers. C/o right hip and right knee pain; PRN oxycodone given @ 1920 with scheduled [place]. Pt has been continent & incontinent of urine. No BM this shift. Blood sugars have been 130 > 135; see eMAR for insulin admin. Pt?s left AC IV was not patent so MD mccabe?ed for IV access to be removed. TELE was also discontinued this shift. ?
[2024-03-22] MEDS: MENTHOL 57 GM GEL 1 APPLIC TOPICAL ×2 (02:08→14:01)
[2024-03-22 03:10] VITALS: BP 136/72; PULSE 70; RESP 16; TEMP 36.4; O2SAT 95
[2024-03-22] MEDS: IPRAT-ALBUT 0.5-2.5 MG/3 ML NEB 1 NEB IH ×2 (06:32→11:21)
[2024-03-22] MEDS: LEVOTHYROXINE 125 MCG TABLET PO (06:32)
[2024-03-22] MEDS: OMEPRAZOLE 20 MG CAPSULE DR PO (06:32)
[2024-03-22 07:00] VITALS: RESP 20; O2SAT 95
--- NOTE | 2024-03-22 07:32 | PC.NURSE ---
end of shift note: pt pleasant and cooperative with cares. a&o. incontinent of urine. on cpap during hs. BG 139 @02; no s/s per protocol. pt slept well. vss.
[2024-03-22 08:33] LABS: Chloride* 98 mmol/L (96-114); Potassium* 4.5 mmol/L (3.6-5.1); Sodium* 139 mmol/L (135-149)
[2024-03-22 08:36] LABS: Anion Gap 6 mEq/L (7-15); Blood Urea Nitrogen* 54 mg/dL (7-30); Carbon Dioxide* 35 mmol/L (20-32); Creatinine* 2.1 mg/dL (0.5-1.5); Est. Creatinine Clearance* 22.98; Estimated Glomerular Filt Rate 26 ml/min
[2024-03-22 08:37] LABS: Calcium* 8.4 mg/dL (8.4-10.6); Glucose* 205 mg/dL (60-115)
[2024-03-22] MEDS: METOPROLOL SUCCINATE (XL) 25 MG TAB PO (08:52)
[2024-03-22 08:53] VITALS: BP 114/53; PULSE 95; RESP 16; TEMP 36.4; O2SAT 95
[2024-03-22] MEDS: TORSEMIDE 20 MG TABLET 40 MG PO (08:56)
[2024-03-22] MEDS: AMLODIPINE 5 MG TABLET 2.5 MG PO (08:58)
[2024-03-22] MEDS: CETIRIZINE HCL 10 MG TABLET 5 MG PO (08:58)
[2024-03-22] MEDS: DULOXETINE 30 MG CAPSULE DR 60 MG PO (08:58)
[2024-03-22] MEDS: FLUOXETINE HCL 10 MG CAPSULE PO (09:01)
[2024-03-22] MEDS: PREGABALIN 100 MG CAPSULE 200 MG PO (09:04)
[2024-03-22] MEDS: ACETAMINOPHEN 650 MG TABLET ER 1300 MG PO (09:05)
[2024-03-22] MEDS: INSULIN ASPART 100 UNIT/ML 8 UNIT SUBCUT ×2 (09:06→13:54)
[2024-03-22] MEDS: INSULIN ASPART 100 UNIT/ML SUBCUT ×2 (09:08→13:54)
[2024-03-22] MEDS: OXYCODONE 5 MG TABLET PO (10:35)
[2024-03-22 11:17] VITALS: BP 139/55; PULSE 80; RESP 20; TEMP 36.5; O2SAT 93
[2024-03-22 11:18] VITALS: BP 139/55; PULSE 89; RESP 20; TEMP 36.1; O2SAT 93
--- NOTE | 2024-03-22 14:43 | PM.DS1 ---
DS: Providers Provider Date Seen: 03/22/24 Date of admission: 03/16/24 22:32 Primary care physician: Barbara Valentin DO Admitting Clinician: Peterson Javed MD Attending Physician on discharge: Peterson Javed MD Date of Discharge: 03/22/24 DS: Diagnosis Discharge Diagnosis (1) Hypoxia: Status: Acute Problem details: Due to heart failure exacerbation. CPAP with supplemental oxygen on admission. No longer needing supplemental oxygen. At discharge normal home medications except losartan were resumed. Resume low-dose losartan if blood pressure, kidney function, potassium allow. Ongoing titration of diuretic needed. (2) Congestive heart failure (CHF): Status: Acute Problem details: Improved but still some evidence of volume overload. Resume normal diuretic. May need additional diuretic. If tolerated restart losartan. Cause for exacerbation is unclear. Now improved with diuresis as tolerated. Weaned off of CPAP during the day but using at night for sleep apnea . Echocardiogram from 01/13/2024: Final Impressions: 1. Normal LV size, normal wall thickness, normal global systolic function with an estimated EF of 60 - 65%. 2. Right ventricular cavity size is normal, global systolic RV function is normal. 3. No significant valve disease detected. (3) Hyperkalemia: Status: Acute Problem details: Likely due to chronic kidney disease. Resolved with diuresis. Losartan discontinued temporarily (4) Diabetes type I: Status: Acute Problem details: On admission was hyperglycemic and requiring IV insulin. Since resuming normal home basal bolus regimen she has been primarily hypoglycemic at night and normal glycemic during the day. Lantus discontinued and mealtime insulin continued. Needs close follow-up and re-evaluation in clinic next week. Patient reports problems with low blood sugars at night even before recent illness. (5) COPD (chronic obstructive pulmonary disease): Status: Acute Problem details: Uncertain how much this is contributing to her hypoxia. Has mild CO2 retention, venous pCO2 of 52 and pH of 7.35 on admission. Improving (6) Chronic pain syndrome: Status: Acute Problem details: Chronic opioid therapy, Butrans patch (7) Stage 4 chronic kidney disease: Status: Acute Problem details: Creatinine at 2.1 today. Stable to slightly improved. Elevation in creatinine likely due to combination of losartan and aggressive diuresis. Resume low-dose losartan next week if potassium, creatinine and blood pressure tolerate (8) Abnormal urinalysis: Status: Acute Problem details: Abnormal urinalysis on admission. Culture is growing less than 50,000 colonies mixed positive oni. Discontinue Levaquin started on admission (9) Nocturnal hypoglycemia: Status: Acute Problem details: Per patient this is a chronic problem requiring bedtime and nighttime snacks. Will stop Lantus/basal insulin and monitor. May need a very low dose of basal insulin. Resume with caution due to nocturnal hypoglycemia DS: Summary Hospital Course Hospital Course: Mikayla Kuhn is a 63 year old female with type 1 diabetes, COPD, heart failure, sleep apnea, opioid dependence, stage 4 kidney disease who presents with a 1 day history of shortness of breath. She reports she was in her usual state of health until last evening when she began to feel dyspnea. She did not notice that it got worse when she laid down last night. Today it got worse and she came to the hospital for evaluation. She has not had a fever, cold, chest pain. She has had a little bit of a cough. She reports she has been taking her medications and has not had any other change in her health status or medications recently. In the emergency department she presented with oxygen saturation of 75% on room air. This improved with oxygen by face mask and then CPAP. Overnight she was treated for COPD with nebulizer and steroids, hypoxia and heart failure were treated with oxygen, CPAP and furosemide. She has had significant improvement in her respiratory status. Hyperglycemia treated with an insulin drip and that has been discontinued overnight. She reports no concerns this morning. 03/18/2024: Patient reports feeling better. She slept with CPAP on overnight but now is on room air breathing comfortably this morning. No chest pain. She has not been out of bed to walk yet. Appetite has been okay. Blood sugar control has been fair with blood sugars mostly in the 200s. She has no other concerns today. 03/19/2024: Patient had low blood sugar, 33, during the night. She was symptomatic. She had received her scheduled mealtime insulin last evening with some sliding scale but no insulin after that. Received Lantus 22 units yesterday morning, up from 20 units previously. Otherwise slept well on CPAP. Reports breathing on room air is good this morning. No appetite this morning. No other concerns 03/20/2024: Patient again had hypoglycemia in the middle of the night with a blood sugar of 30. She was symptomatic with this. She tells me low blood sugars commonly occur at night when she is at home. She always has a bedtime snack and also has food available when she wakes up in the middle the night. She reports her breathing is good. No other concerns today. 03/21/2024: She reports generally doing well. She again had symptomatic blood sugar of 33 shortly after midnight. This was despite anticipation of hypoglycemia with bedtime snack. She otherwise reports feeling well and has no other concerns today. 03/22/2024: She reports doing well today. No dyspnea. No hypoglycemia last night now off Lantus. No other concerns today. Time Spent with Patient Time attestation: Total time spent providing and/or coordinating discharge services: 40 minutes Time spent: Greater than 30 minutes Exam Narrative: Exam Narrative: She is alert and appears in no distress. Respirations are clear to auscultation. No wheezing. Fair air exchange all lung briggs. Cardiovascular: S1, S2, regular rate and rhythm. Abdomen is soft without tenderness. Extremities with 1+ edema. Const: Vital Signs, click to edit/add: Vital Signs - 24 hr 03/21/24 15:00 03/21/24 15:00 03/21/24 15:00 Temperature Pulse Rate 71 Pulse Rate [Pulse Oximeter] 74 Respiratory Rate 18 18 Blood Pressure Blood Pressure [Le ft Arm] Blood Pressure [Ri ght Arm] Pulse Oximetry 93 Oxygen Delivery Me thod Room Air Fraction of [facility] ed Oxygen 03/21/24 15:00 03/21/24 19:28 03/21/24 22:00 Temperature 96.7 F L 97.2 F L Pulse Rate Pulse Rate [Pulse Oximeter] 74 77 Respiratory Rate 18 18 Blood Pressure Blood Pressure [Le ft Arm] Blood Pressure [Ri ght Arm] 125/57 L 129/43 L Pulse Oximetry 93 94 94 Oxygen Delivery Me thod [facility] 03/21/24 23:40 03/21/24 23:40 03/21/24 23:40 Temperature 97.7 F Pulse Rate Pulse Rate [Pulse Oximeter] 77 77 Respiratory Rate 16 16 16 Blood Pressure Blood Pressure [Le ft Arm] 122/62 Blood Pressure [Ri ght Arm] Pulse Oximetry 93 93 Oxygen Delivery Me thod Room Air CPAP Room Air Fraction of [facility] ed Oxygen 03/22/24 03:10 03/22/24 07:00 03/22/24 07:00 Temperature 97.6 F Pulse Rate Pulse Rate [Pulse Oximeter] 70 Respiratory Rate 16 20 Blood Pressure Blood Pressure [Le ft Arm] 136/72 Blood Pressure [Ri ght Arm] Pulse Oximetry 95 95 Oxygen Delivery Me thod Room Air CPAP Room Air Fraction of [facility] ed Oxygen 25 03/22/24 08:53 03/22/24 11:17 03/22/24 11:18 Temperature 97.6 F 97.7 F 97.0 F L Pulse Rate 80 Pulse Rate [Pulse Oximeter] 95 89 Respiratory Rate 16 20 20 Blood Pressure 139/55 L Blood Pressure [Le ft Arm] 114/53 L 139/55 L Blood Pressure [Ri ght Arm] Pulse Oximetry 95 93 93 Oxygen Delivery Me thod Fraction of Inspir ed Oxygen Documenting provider has reviewed patient's vital signs: yes DS: Data Data Completed and Pending Completed studies during hospitalization: Procedures Insertion of Infusion Device into Right Internal Jugular Vein, Percutaneous Approach (10/11/22) Ultrasonography of Right Jugular Veins, Guidance (10/11/22) Labs on day of discharge: Labs from last 24 hours 03/22/24 07:55 Sodium 139 Potassium 4.5 Chloride 98 Carbon Dioxide 35 H Anion Gap 6 L BUN 54 H Creatinine 2.1 H Estimated Creat Clear 22.98 Estimated GFR 26 Glucose 205 H Calcium 8.4 Imaging Chest x-ray: Radiologist's impression: Indication: Shortness of breath Technique: Single view of the chest Comparison: Chest radiograph performed 12/08/2023 Findings/Impression: Cardiomegaly and diffuse airspace disease suspicious for pulmonary edema. Superimposed infection not excluded. Discharge Plan Discharge Disposition: Home, Self-Care Date of Admission: 03/16/24 22:32 Attending Provider on Discharge: Peterson Javed Primary Care Provider: Barbara Valentin Condition: Unchanged Anticipated Discharge Date/Time: 03/22/24 09:31 Discharge Medications: Continued atorvastatin 20 mg tablet 20 mg PO QPM torsemide 20 mg tablet 40 mg PO DAILY cetirizine 5 mg tablet 5 mg PO DAILY sennosides-docusate sodium [Stool Softener-Stimulant Laxat] 8.6-50 mg tablet 2 tab PO BID PRN omeprazole 20 mg capsule,delayed release(DR/EC) 20 mg PO DAILY metoprolol succinate 25 mg tablet extended release 24 hr 25 mg PO DAILY oxycodone 5 mg tablet 5 mg PO BID PRN duloxetine 60 mg capsule,delayed release(DR/EC) 60 mg PO DAILY pregabalin 50 mg capsule 50 mg PO HS Rx Instructions: WITH 100 MG DOSE = 150 MG QHS pregabalin 100 mg capsule 100 - 200 mg PO BID Rx Instructions: 200 MG IN AM AND 150 MG IN PM cholecalciferol (vitamin D3) 50 mcg (2,000 unit) capsule 50 mcg PO DAILY buprenorphine 5 mcg/hour patch weekly 1 patch transdermal Q7D polyethylene glycol 3350 [Miralax] 17 gram/dose powder 17 g PO DAILY PRN amlodipine 2.5 mg tablet 2.5 mg PO BID vitamin C03-tbygr acid 2,500-400 mcg tablet,disintegrating 1 tab PO DAILY levothyroxine 125 mcg tablet 125 mcg PO DAILY fluoxetine 10 mg capsule 10 mg PO DAILY cyanocobalamin (vitamin B-12) 1,000 mcg tablet 1,000 mcg PO DAILY Baqsimi 3 mg/actuation spray,non-aerosol 3 mg intranasal DIRECTED PRN naloxone [Narcan] 4 mg/actuation spray,non-aerosol 4 mg intranasal DIRECTED PRN acetaminophen 650 mg tablet extended release 1,300 mg PO Q8H Changed insulin lispro [Humalog KwikPen Insulin] 100 unit/mL insulin pen 8 unit subcut TIDWM 30 Days 0RF Discontinued losartan 25 mg tablet 12.5 mg PO DAILY insulin glargine [Lantus Solostar U-100 Insulin] 100 unit/mL (3 mL) insulin pen 20 unit subcut QAM Discharge Orders: Discharge Order (Routine); Ordered 03/22/24 Ordered By: Peterson Javed Patient Education: Heart Failure (DC) Additional Instructions: Because you are having low blood sugars during the night we stopped your insulin glargine/Lantus. You probably need some long-acting insulin. Your doctor will help decide what to do with your insulin at her appointment next week. Bring your blood sugar readings to the clinic next week so she can review this. Because you had kidney problems I stopped your losartan. You probably will need losartan again in the future but your doctor should check your kidney function and your blood pressure before restarting it. Make sure you take your medications as prescribed every day. Activity Level: Activity as Tolerated Discharge Diet: Diabetic Follow Up Appointments: Barbara Valentin DO [Primary Care Provider] - 03/27/24 10:35 am ([facility] for follow-u, and check basic metabolic panel in 5-7 days.) Forms: [employer] Info Instructions
== END 2024-03-22 15:14 | disposition home or self-care (01) | DRG 637 ==
LOC: ED 21:34 → MEDSURG 22:32
PROVIDERS: Admitting Provider Family Medicine; Emergency Provider Emergency Medicine Emergency Medical Services; PCP Family Medicine; Visit Provider Family Medicine
DX: E10.65 Type 1 diabetes mellitus with hyperglycemia (principal); I50.33 Acute on chronic diastolic (congestive) heart failure; J96.01 Acute respiratory failure with hypoxia; I13.0 Hypertensive heart and chronic kidney disease with heart failure and stage 1 through stage 4 chronic kidney disease, or unspecified chronic kidney disease; N18.4 Chronic kidney disease, stage 4 (severe); E10.22 Type 1 diabetes mellitus with diabetic chronic kidney disease; E10.649 Type 1 diabetes mellitus with hypoglycemia without coma; E10.610 Type 1 diabetes mellitus with diabetic neuropathic arthropathy; E10.319 Type 1 diabetes mellitus with unspecified diabetic retinopathy without macular edema; Z79.4 Long term (current) use of insulin; E87.5 Hyperkalemia; G47.30 Sleep apnea, unspecified; E66.01 Morbid (severe) obesity due to excess calories; J44.9 Chronic obstructive pulmonary disease, unspecified; Z79.891 Long term (current) use of opiate analgesic; R82.90 Unspecified abnormal findings in urine; G89.4 Chronic pain syndrome; K21.9 Gastro-esophageal reflux disease without esophagitis; Z98.84 Bariatric surgery status; F32.A Depression, unspecified; E78.5 Hyperlipidemia, unspecified; E89.0 Postprocedural hypothyroidism
CPT/HCPCS: 36415; 51701; 71045; 80048; 80076; 81001; 81003; 82803; 82962; 83735; 83880; 84443; 84484; 85025; 87086; 87631; 93005; 94640; 94660; 94761; 97110; 97116; 97162; 97165; 97530; 97535; 99285; G0378; A0425; A0427; A9270; J1100; J1650; J1815; J1940; J3590; J7042

== ENCOUNTER 2024-03-22 15:02 | Outpatient (CLI) | payer OTHER, SELFPAY ==
--- OUTSIDE RECORDS SUMMARY | 2024-03-22 15:03 | XMS_ITS | Encounter Summary ---
Author Organization [facility] Address [address] [place] [address] Care Team Providers Care Crushing Mill Operator Name Role Phone Barbara Valentin DO Primary Care Provider [phone] Encounter Details Date Type Department Care Team (Late st Contact Info) Description 09/22/2023 Documentation Only [facility] [place] [address] [facility] [address] [place] [address] No, Pcp Social History Tobacco [...] on filedocumented in this encounter Care Teams Crushing Mill Operator Relationship Specialty Start Date End Date Barbara Valentin DO Roxy [place] [address] PCP - General Family Medicine 09/22/23 documented as of this encounter
--- OUTSIDE RECORDS SUMMARY | 2024-03-22 15:03 | XMS_ITS | Encounter Summary ---
Author Organization [facility] Address [address] [place] [address] Care Team Providers Care Rubber Goods Assembler Name Role Phone Barbara Valentin DO Primary Care Provider [phone] Encounter Details Date Type Department Care Team (Late st Contact Info) Description 01/23/2024 Documentation Only [facility] [place] [address] [place] [address] Ronnell Kirby [address] [place] [address] Social History Tobacco Use Types [...] Performing Organization Address [facility]/ZIP Co de Phone Number [place] * (ABNORMAL) Creatine (01/17/2024) Creatine, Serum 1.28(H) [place] GFR Calculated 47(L) [place] Blood (Blood, Venous) 01/17/2024 Historical Provider MD LAB BLOOD ORDERAB LES Performing Organization Address [facility]/State/ZIP Co de Phone Number [place] * (ABNORMAL) Creatine (01/16/2024) Creatine, Serum 1.28(H) [place] GFR Calculated 47(L) [place] Blood (Blood, Venous) 01/16/2024 Historical Provider MD LAB BLOOD ORDERAB LES Performing Organization Address [facility] Co de Phone Number [place] * (ABNORMAL) Creatine (01/15/2024) Creatine, Serum 1.71(H) [place] GFR Calculated 34(L) [place] Blood (Blood, Venous) 01/15/2024 Historical Provider MD LAB BLOOD ORDERAB LES Performing Organization Address [facility] Co de Phone Number [place] * (ABNORMAL) Hemoglobin (01/15/2024) Hemoglobin 8.4(L) g/dL [place] MCV 91.0 [place] Blood (Blood, Venous) 01/15/2024 Historical Provider MD LAB BLOOD ORDERAB LES Performing Organization Address [facility] Co de Phone Number [place] [...] Performing Organization Address [facility] Co de Phone Number [place] [...] Performing Organization Address [facility] Co de Phone Number [place] [...] Performing Organization Address [facility] de Phone Number [place] [...] Performing Organization Address [facility] Co de Phone Number [place] [...] on filedocumented in this encounter Care Teams Rubber Goods Assembler Relationship Specialty Start Date End Date Barbara Valentin DO [address] [place] [address] PCP - General Family Medicine 09/22/23 documented as of this encounter
--- OUTSIDE RECORDS SUMMARY | 2024-03-22 15:03 | XMS_ITS | Encounter Summary ---
Author Organization [facility] Address [address] [place] [address] Care Team Providers Care Wood Box Maker Name Role Phone Barbara Valentin DO Primary Care Provider [phone] Encounter Details Date Type Department Care Team (Late st Contact Info) Description 01/23/2024 Office Communication [facility] [place] [address] [place] [address] Ronnell Kirby [address] [place] [address] Social History Tobacco Use Types [...] on filedocumented in this encounter Care Teams Wood Box Maker Relationship Specialty Start Date End Date Barbara Valentin DO Roxy Calderon [facility] [place] [address] PCP - General Family Medicine 09/22/23 documented as of this encounter
--- OUTSIDE RECORDS SUMMARY | 2024-03-22 15:03 | XMS_ITS | Encounter Summary ---
Author Organization [facility] [place] Address [address] [place] [address] Care Team Providers Care Supervisor [employer] Name Role Phone Barbara Valentin DO Primary Care Provider [phone] Encounter Details Date Type Department Care Team (Late st Contact Info) Description 02/01/2024 Telephone [facility] [place] [address] [place] [address] Gabriel Hicks MD [address] [place] [address] Social History Tobacco Use Types [...] filedocumented in this encounter Care Teams Supervisor [employer] Relationship Specialty Start Date End Date Barbara Valentin DO [address] [place] [address] PCP - General Family Medicine 09/22/23 documented as of this encounter
--- OUTSIDE RECORDS SUMMARY | 2024-03-22 15:03 | XMS_ITS | Clinical Summary ---
Author Organization [facility] [place] Address [address] [facility] [place] [address] Phone Care Team Providers Care Quotation Checker Name Role Phone Barbara Valentin DO Primary Care Provider [phone] Allergies Active Allergy Reactions Criticality Noted Date [...] One Pack) 3 MG/DOSE powder Inhale 1 [place] into affected nostril(s) each time if needed [...] Team Description 02/01/2024 Telephone [facility] [place] [address] [facility] [address] [place] [phone] Gabriel Hicks MD 01/23/2024 Documentation Only [facility] [place] [address] [facility] [address] [place] [address] Ronnell Kirby 01/23/2024 Office Communication [facility] [place] [address] [facility] [address] [place] [address] Ronnell Kirby from Last 3 Months Immunizations [...] LAB BLOOD ORDERAB LES Performing Organization Address City/[facility]/ZIP Co de Phone Number [place] * (ABNORMAL) [...] BESSY from Last 3 Months Care Teams Quotation Checker Relationship Specialty Start Date End Date Barbara Valentin DO [address] [place] [address] PCP - General Family Medicine 09/22/23
--- OUTSIDE RECORDS SUMMARY | 2024-03-22 15:04 | XMS_ITS | Clinical Summary ---
Author Organization [facility] [facility] s [facility] Address [place], [place] [address] Care Team Providers Care Food And Beverage Operations Manager Name Role Phone Julio Ibrahim MD Unavailable Chuy Doss MD Unavailable Markel Strong MD Unavailable [phone] Nikolai Ibarra MD Unavailable [phone] Barbara Valentin Patricia DO Primary Care Provider [phone] [facility], [place] Unavailable Allergies Active Allergy Reactions Criticality Noted [...] mellitus at risk of hypoglycemia Inhale 1 [place] into affected nostril(s) each time if needed for Severe Hypoglycemia. Roll on side and call 911 after administration. 2 Each 11 12/25/19 22 Active fluticasone (50 mcg per actuation) nasal solution (FLONASE)Indicati ons:Nasal congestion Inhale 1 [place] into affected nostril(s) once daily. Inhale 1 [place] in the nostril(s) once daily. 16 g [...] continuous glucose monitor READER (FreeStyle Elli 2 [place])Indication s:Type 1 diabetes mellitus with other specified complication (HC) To be used to read blood sugars per post tensioning ironworker's directions. 1 Each 05/19/20 23 Active blood-glucose [...] be used to read blood sugars per post tensioning ironworker's directions. 6 Each 3 09/06/19 24 Active [...] Chronic, continuous use of opioids Inhale 1 [place] into affected nostril(s) each time if needed for Patient Diff To Arouse or Resp Rate < 8 / min. Additional doses may be given every 2 to 3 minutes until emergency medical assistance arrives. 2 Each 02/16/20 24 Active pregabalin (LYRICA) 50 mg capsuleIndication s:Diabetic peripheral neuropathy (HC) TAKE ONE CAPSULE BY MOUTH EVERY EVENING WITH 1-100MG CAPSULE TO TOTAL 150MG 60 Capsule 2 03/20/20 24 Active FLUoxetine (PROZAC) 10 mg capsuleIndication [...] agreement signed - 10/07/23 10/07/2023 Overview (10/07/2023): [facility] Noemí Dennis .................... 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) use of anticoagulants 11/27/2013 12/28/2013 Anticoagulation [...] Type Department Care Team Description 03/16/2024 Refill [facility] [address] [place] [address] Toshia Hooks NP Refill Request 03/14/2024 10:30 AM CDT Home Care Visit [facility] [address] [place] [phone] Geneva Sanchez RN SN - OASIS DISCHARGE 03/12/2024 Refill [facility] [address] [place] [address] Barbara Valentin, DO Refill Request (Pregabalin, Fluoxetine, Duloxetine) 03/06/2024 10:00 AM CDT Home Care Visit [facility] [address] [place] [phone] Geneva Sanchez RN SN - HOME VISIT 03/06/2024 9:15 AM CDT Home Care Visit [facility] [address] [place] [phone] Alex Contreras EXHAUST AND MUFFLER FITTER - HOME VISIT 03/03/2024 Home Care Visit [facility]ly [facility] [address] [place] [phone] Nitza Riojas LISW CARE COORDINATION 02/28/2024 2:00 PM CDT Home Care Visit [facility]ly [facility] [address] [place] [phone] Shania Elaine, RN SN - HOME VISIT 02/28/2024 10:45 AM CDT Home Care Visit [facility] [address] [place] [phone] Fabiola Mathis EXHAUST AND MUFFLER FITTER - HOME VISIT 02/25/2024 Home Care Visit [facility] [address] [place] [phone] Nitza Riojas LISW CARE COORDINATION 02/22/2024 3:00 PM CDT Home Care Visit [facility] [address] [place] [phone] Trini Hitchcock, LOS SN - HOME VISIT 02/22/2024 Home Care Visit [facility] [address] [place] [phone] Dar Phillips, OT OT - DISCIPLINE DISCHARGE 02/21/2024 9:45 AM CDT Home Care Visit [facility] [address] [place] [phone] Alex Contreras EXHAUST AND MUFFLER FITTER - HOME VISIT 02/20/2024 Home Care Visit [facility] [address] [place] [phone] Nitza Riojas LISW SECTION LABORER - INITIAL ASSESSMENT 02/16/2024 Refill [facility] [address] [place] [address] Toshia Hooks NP Refill Request (oxyCODONE (ROXICODONE) 5 mg immediate release tablet ) 02/15/2024 3:45 PM CDT Home Care Visit [facility] [address] [place] [phone] Coleman Greene, PT PT - DISCIPLINE DISCHARGE 02/15/2024 11:00 AM CDT Home Care Visit [facility] [address] [place] [phone] Geneva Sanchez, LOS SN - HOME VISIT 02/14/2024 12:00 PM CDT Home Care Visit [facility] [address] [place] [phone] Joi Moreno, VARELA OT - HOME VISIT 02/14/2024 8:15 AM CDT Home Care Visit [facility] [address] [place] [phone] Fabiola Mathis EXHAUST AND MUFFLER FITTER - HOME VISIT 02/10/2024 3:30 PM CDT Home Care Visit [facility] [address] [place] [phone] Joi Moreno VARELA OT - HOME VISIT 02/10/2024 Home Care Visit [facility] [address] [place] [phone] Nitza Riojas LISW SECTION LABORER - CASE COMMUNICATION 02/09/2024 Refill [facility] [address] [place] [address] Barbara Valentin DO Refill Request (Duloxetine) 02/08/2024 3:00 PM CDT Home Care Visit [facility] [address] [place] [phone] Veda Resendiz RN SN - WOUND/OSTOMY CHART CONSULT 02/08/2024 9:00 AM CDT Home Care Visit [facility] [address] [place] [phone] Geneva Sanchez RN SN - HOME VISIT 02/08/2024 Telephone [facility] [address] [place] [address] Barbara Valentin DO Pharmacist Medication Management (MEDICATION CHANGE) 02/08/2024 Telephone [facility] [address] [place] [phone] Geneva Sanchez, technical sme List Update 02/07/2024 4:00 PM CDT Home Care Visit [facility] [address] [place] [phone] Joi Moreno VARELA OT - HOME VISIT 02/07/2024 9:30 AM CDT Home Care Visit [facility] [address] [place] [address] Kendal Serna, PT PT - HOME VISIT 02/07/2024 Telephone [facility] [address] [place] [address] Shaqra, Barbara Patricia, DO Refill Request (Insulin lispro pens) 02/04/2024 Refill [facility] [address] [place] [address] Shaqra, Barbara Patricia, DO Refill Request (Insulin Lispro) 02/03/2024 9:00 AM CDT Home Care Visit [facility] [address] [place] [phone] Joi Moreno COTA OT - HOME VISIT 02/02/2024 11:00 AM CDT Home Care Visit [facility] [address] [place] [phone] Kendal Serna, PT PT - HOME VISIT 02/01/2024 4:00 PM CDT Home Care Visit [facility] [address] [place] [address] Joi Moreno COTA OT - HOME VISIT 01/31/2024 9:30 AM CDT Home Care Visit [facility] [address] [place] [phone] Fabiola Mathis EXHAUST AND MUFFLER FITTER - HOME VISIT 01/31/2024 Home Care Visit [facility] [address] [place] [address] Oumou Burns, LOS CARE COORDINATION 01/31/2024 Home Care Visit [facility] [address] [place] [phone] Oumou Burns, RN CARE COORDINATION 01/30/2024 10:45 AM CDT Home Care Visit [facility] [address] [place] [address] Kendal Serna, PT PT - HOME VISIT 01/30/2024 9:00 AM CDT Home Care Visit [facility] [address] [place] [address] Geneva Sanchez, RN SN - INITIAL ASSESSMENT 01/25/2024 1:30 PM CDT Home Care Visit [facility] [address] [place] [phone] Coleman Greene, PT PT - HOME VISIT 01/25/2024 Travel 01/24/2024 1:00 PM CDT Home Care Visit [facility] [address] [place] [phone] Dar Phillips, OT OT - INITIAL ASSESSMENT 01/24/2024 9:30 AM CDT Home Care Visit [facility] [address] [place] [phone] Fabiola Mathis EXHAUST AND MUFFLER FITTER - HOME VISIT 01/24/2024 Home Care Visit [facility] [address] [place] [phone] Narcisa Atkinson, RN CARE COORDINATION 01/23/2024 Home Care Visit [facility] [address] [place] [phone] Narcisa Atkinson, RN CARE COORDINATION 01/20/2024 Refill [facility] [address] [place] [address] Toshia Hooks NP Refill Request 01/18/2024 1:45 PM CDT Home Care Visit [facility] [address] [place] [phone] Kendal Serna, PT PT - OASIS START OF CARE 01/18/2024 10:30 AM CDT Phone Office Visit [facility] [address] [place] [address] Nikolai Ibarra MD 01/18/2024 Plan of Care Documentation Formerly [facility] [address] [place] [phone] 01/18/2024 Patient Outreach [facility] [address] [place] [address] Maria R Ho, RN Primary RN Care Management; Hospital F/U (Lace 44) 01/18/2024 Travel 01/12/2024 9:13 PM CDT - 01/17/2024 5:23 PM CDT Hospital Encounter [facility] [address] [place] [address] Megan, MD Nedra Valverde, DO Chente Honeycutt, MD Dusty Manjarrez, MD Ricky Alston, Helder Hoover MD [facility], [facility] Hospitalists Of Opioid dependence, uncomplicated (HC) (Primary Dx); Nasal congestion; Chronic pain syndrome; Diabetic ketoacidosis without coma associated with type 1 diabetes mellitus (HC); 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, macular edema presence unspecified, unspecified laterality, unspecified proliferative retinopathy type (HC); Heel ulcer, right, with unspecified severity (HC) Discharge Disposition: Home Health 01/09/2024 Refill [facility] [address] [place] [address] Barbara Valentin, DO Refill Request (Fluoxetine) 01/09/2024 Refill [facility] [address] [place] [address] Elian Humphrey MD Refill Request (Torsemide) 01/06/2024 4:00 PM CDT Office Visit [facility] [address] [place] [address] Toshia Hooks NP Follow Up; Pain (Multi source; was told by her Predatory Animal Exterminator she can ot use OTC Voltaren gel., which had been helping her O.A. pain (hands; wrists; shoulders; ) ) 01/06/2024 Travel 01/02/2024 Telephone [facility] [address] [place] [address] Barbara Valentin, DO Follow Up 12/27/2023 Refill [facility] [address] [place] [address] Barbara Valentin, DO Refill Request (Pregabalin, Cetirizine) 12/23/2023 2:35 PM CDT Office Visit [facility] [address] [place] [address] Barbara Valentin, DO Diabetes (3 month check, labs); Rash (Rash under breasts? ) 12/23/2023 Travel from Last 3 Months Immunizations Name Administration Dates Next Due AMB Influenza, IIV3 (Age >=3 years)(Flu Clinic Only) 05/17/2013,05/06/2010 COVID-19 vaccine (KIHEITAI-Bio NTech 30mcg/0.3mL) 12YO+ BIVALENT PF, MDV 04/28/2022 COVID-19 vaccine (KIHEITAI-Bio NTech 30mcg/0.3mL) PF, MDV 06/23/2021 Hepatitis B [...] CDT Office Visit [facility] [address] [place] [address] Barbara Valentin, DO [address] [place] [address] 03/27/2024 10:35 AM CDT Office Visit [facility] [address] [place] [address] Barbara Valentin, DO [address] [place] [address] 05/04/2024 3:30 PM CDT Phone Office Visit [facility] [address] [place], [place] [phone] Nikolai Ibarra MD [address] [place] [address] Health Maintenance Due Date Last Done Comments [...] 03/18/2020, Additional history exists Fecal testing sDNA-FIT ([place] guard) for age 45-75 11/10/2024 11/10/2021 Pneumococcal series for age 6-64 (3 of 3 - PPSV23 or PCV20) 2026 08/17/2016, 08/14/2014, 07/04/2005, Additional history exists Lipids for age 45-75 04/28/2027 04/28/2022, 08/17/2019, 08/31/2018, Additional history exists Tdap Completed 08/25/2010 HIV for age 15-65 Completed 07/21/2015 Hepatitis C screening for ag e 18-79 Completed 02/16/2018 Medical Devices Implanted Type Area Film Cleaner Device Identifier Shelf Expiration Date Model / Serial / Lot [id number] 2x12mm [[id number]] Implanted:Qty: 1 on 08/08/2008 at [facility] Explanted:at [facility] (Quantity not on file) Compositence [id number]# / [id number] / Stem Compnt Primary 8mm Mini - [id number] Implanted:Qty: 1 on 03/17/2011 at [facility] Right: Shoulder BIOMET [id number]# / / [id number] Head Hum Bio-Mod [id number] - [id number] Implanted:Qty: 1 on 03/17/2011 at [facility] Right: Shoulder BIOMET [id number]# / / [id number] Base Glenoid Hybrid 4mm Sm - [id number] Implanted:Qty: 1 on 03/17/2011 at [facility] Right: Shoulder BIOMET [id number]# / / [id number] Cmnt 1/2 D[employer] - [id number] Implanted:Qty: 1 on 03/17/2011 at [facility] Right: Shoulder [employer] 6188-1-01 0# / / [id number] Post Glenoid Hybrid Regenerex - [id number] Implanted:Qty: 1 on 03/17/2011 at [facility] Right: Shoulder BIOMET [id number] # / / [id number] Head Humeral 44x15 Co Cr Biomodular - [id number] Implanted:Qty: 1 on 07/12/2012 at [facility] Left: Shoulder BIOMET [id number]# / / [id number] Shoulder Stem Implanted:Qty: 1 on 07/12/2012 at [facility] Left: Shoulder [id number] / / [id number] Description:SHOULDER STEM Cmnt Bone 1/2 [employer] - [id number] Implanted:Qty: 1 on 07/12/2012 at [facility] Left: Shoulder [employer] 6188-1-01 0# / / [id number] Post Glenoid Hybrid Regenerex - [id number] Implanted:Qty: 1 on 07/12/2012 at [facility] Left: Shoulder BIOMET [id number] # / / [id number] Base Glenoid Hybrid 4mm Sm - [id number] Implanted:Qty: 1 on 07/12/2012 at [facility] Left: Shoulder BIOMET [id number]# / / [id number] Procedures Procedure Name Priority Date/Time Associated Diagnosis [...] HIV 1/2 Add On 07/21/2015 9:40 AM DIGITAL MEDIA STRATEGIST ORCHARD WORKER THIN PREP PAP SCREEN IMAGED Routine 08/17/2012 4:02 PM DIGITAL MEDIA STRATEGIST Screening for malignant neoplasm of the cervix [...] - 100 mg/dL 01/17/2024 11:35 AM CDT [facility] Blood BLOOD SPECIMEN / Unknown 01/17/2024 11:27 AM CDT 01/17/2024 11:35 AM CDT Helder García MD CHEMISTRY [facility] [employer] [facility] [address] [place] [address], * (ABNORMAL) CREATININE (01/17/2024 8:20 AM CDT) Only the most recent of3 resultswithin the time period is included. eGFR 47(L) >90 mL/min/1.7 3m2 01/17/2024 9:06 AM CDT [facility] [employer] Comment:As of 2021, eG FR is calculated by the CKD-EPI creatinine equation without race adjustment. ??eGFR can be influenced by muscle mass, exercise, and diet. ??The reported eGFR is an estimation only and is only applicable if the renal function is stable. CREATININE 1.28(H) 0.50 - 0.90 mg/dL 01/17/2024 9:06 AM CDT [facility] TRAL [facility] Blood BLOOD SPECIMEN / Unknown Non-Lab Venipuncture / Unknown 01/17/2024 8:20 AM CDT 01/17/2024 8:26 AM CDT Helder García MD CHEMISTRY Performing Organization Address [facility] Co de Phone Number [facility] [address] [place] [address], * PHOSPHORUS (01/17/2024 8:20 AM CDT) Only the most recent of5 resultswithin the time period is included. PHOSPHORUS 2.6 2.5 - 4.5 mg/dL 01/17/2024 9:06 AM CDT [facility] Blood BLOOD SPECIMEN / Unknown Non-Lab Venipuncture / Unknown 01/17/2024 8:20 AM CDT 01/17/2024 8:26 AM CDT Sarah Betancourt RN CHEMISTRY Performing Organization Address [facility] Co de Phone Number [facility] [address] [place] [address], * (ABNORMAL) BASIC METABOLIC PANEL (01/17/2024 8:20 AM CDT) Only the most recent of5 resultswithin the time period is included. SODIUM 139 136 - 145 mmol/L 01/17/2024 12:35 PM CDT [facility] TRAL LABOR[facility] POTASSIUM 3.9 3.5 - 5.1 mmol/L 01/17/2024 12:35 PM CDT [facility] CHLORIDE 103 98 - 107 mmol/L 01/17/2024 12:35 PM CDT [facility] CO2,TOTAL 24 22 - 29 mmol/L 01/17/2024 12:35 PM CDT [facility] ANION GAP 12 5 - 18 01/17/2024 12:35 PM CDT [facility] GLUCOSE 162(H) 70 - 99 mg/dL 01/17/2024 12:35 PM CDT [facility] CALCIUM 8.7(L) 8.8 - 10.2 mg/dL 01/17/2024 12:35 PM CDT [facility] BUN 17 8 - 23 mg/dL 01/17/2024 12:35 PM CDT [facility] CREATININE 1.31(H) 0.50 - 0.90 mg/dL 01/17/2024 12:35 PM CDT [facility] TRAL [facility] BUN/CREAT RATIO 13 10 - 20 12:35 PM CDT [facility] eGFR 46(L) >90 mL/min/1.7 3m2 01/17/2024 12:35 PM CDT [facility] Comment: As of [...] 8:26 AM CDT Helder García MD CHEMISTRY [facility] [address] [place] [address], * CLOSTRIDIOIDES DIFFICILE TOXIN PCR (01/16/2024 12:27 PM CDT) [facility] CLOSTRIDIUM DIFFICILE PCR Negative 01/16/2024 2:18 PM CDT [facility] PRESUMPTIVE NAP1 STRAIN Negative 01/16/2024 2:18 PM CDT [facility] Stool STOOL SPECIMEN / Unknown Non-Blood / Unknown 01/16/2024 12:27 PM CDT 01/16/2024 12:51 PM CDT Narrative [facility] - 01/16/2024 2:18 PM CDT The NAP1 (027 or BI) strain is a hypervirulent strain. Detection may be useful for epidemiological purposes. Helder García MD MICROBIOLOGY Performing Organization Address [facility] Co de Phone Number [facility] [address] [place] [id number], * SCAN CORRESP-EKG RESULTS (01/16/2024 9:07 AM CDT) Narrative 01/16/2024 9:07 AM CDT Ordered by an unspecified provider. Other Clinical Staff OTHER * (ABNORMAL) HEMOGLOBIN (01/16/2024 6:30 AM CDT) Only the most recent of2 resultswithin the time period is included. [facility] HEMOGLOBIN 8.9(L) 12.0 - 16.0 g/dL 01/16/2024 7:13 AM CDT [facility] MCV 91 80 - 100 fL 01/16/2024 7:13 AM CDT [facility] Blood BLOOD SPECIMEN / Unknown Venipuncture / Unknown 01/16/2024 6:30 AM CDT 01/16/2024 6:58 AM CDT Fabrizio Montano MD HEMATOLOGY Performing Organization Address [facility] Co de Phone Number [facility] [address] [place] [id number], [place] * VANCOMYCIN (01/16/2024 6:30 AM CDT) Only the most recent of3 resultswithin the time period is included. VANCOMYCIN 13.0 ug/mL 01/16/2024 7:42 AM CDT [facility] TRAL [facility] Comment:No Reference Range D efined. DATE OF LAST DOSE,RANDOM Not Given 01/16/2024 7:42 AM CDT [facility]AL LAB[facility] TIME OF LAST DOSE,RANDOM Not Given 01/16/2024 7:42 AM CDT [facility] Blood BLOOD SPECIMEN / Unknown Venipuncture / Unknown 01/16/2024 6:30 AM CDT 01/16/2024 6:58 AM CDT Barbara Holcomb NP CHEMISTRY Performing Organization Address [facility]/ZIP Co de Phone Number [facility] [address] [place] [address], [place] * (ABNORMAL) PLATELET COUNT (01/15/2024 6:02 AM CDT) PLATELET COUNT 166 140 - 440 thou/cu mm 01/15/2024 6:44 AM CDT [facility]ORAT[facility] MPV 11.2(H) 6.5 - 11.0 fL 01/15/2024 6:44 AM CDT [facility] TRAL [facility] Blood BLOOD SPECIMEN / Unknown Venipuncture / Unknown 01/15/2024 6:02 AM CDT 01/15/2024 6:26 AM CDT Fabrizio Montano MD HEMATOLOGY [facility] [address] [place] [address], [place] * WHITE BLOOD COUNT (01/15/2024 6:02 AM CDT) WHITE BLOOD COUNT 4.9 4.5 - 11.0 thou/cu mm 01/15/2024 6:44 AM CDT [facility] NRBC 0.0 % 01/15/2024 6:44 AM CDT [facility] ABS NRBC 0.0 thou /cu mm 01/15/2024 6:44 AM CDT [facility] Blood BLOOD SPECIMEN / Unknown Venipuncture / Unknown 01/15/2024 6:02 AM CDT 01/15/2024 6:26 AM CDT Fabrizio Montano MD HEMATOLOGY Performing Organization Address [facility] Co de Phone Number [facility] [address] [address], [place] * Sodium AM (01/15/2024 6:02 AM CDT) SODIUM 142 136 - 145 mmol/L 01/15/2024 7:13 AM CDT [facility] Blood BLOOD SPECIMEN / Unknown Venipuncture / Unknown 01/15/2024 6:02 AM CDT 01/15/2024 6:27 AM CDT Fabrizio Montano MD CHEMISTRY Performing Organization Address [facility] Phone Number [facility] [address] [address], [place] * Potassium AM (01/15/2024 6:02 AM CDT) Only the most recent of3 resultswithin the time period is included. POTASSIUM 4.4 3.5 - 5.1 mmol/L 01/15/2024 7:13 AM CDT [facility] Blood BLOOD SPECIMEN / Unknown Venipuncture / Unknown 01/15/2024 6:02 AM CDT 01/15/2024 6:27 AM CDT Fabrizio Montano MD CHEMISTRY Performing Organization Address [facility] de Phone Number [facility] [address] [address], [place] * SCAN-CARDIAC STRIP (01/14/2024 7:07 AM CDT) Scanner OTHER * (ABNORMAL) CBC W PLT NO DIFF (01/14/2024 5:28 AM CDT) WHITE BLOOD COUNT 8.5 4.5 - 11.0 thou/cu mm 01/14/2024 6:33 AM CDT [facility] RED BLOOD COUNT 3.04(L) 4.00 - 5.20 mil/cu mm 01/14/2024 6:33 AM CDT [facility] HEMOGLOBIN 8.9(L) 12.0 - 16.0 g/dL 01/14/2024 6:33 AM CDT [facility] HEMATOCRIT 27.5(L) 33.0 - 51.0 % 01/14/2024 6:33 AM CDT [facility] MCV 91 80 - 100 fL 01/14/2024 6:33 AM CDT [facility] MCH 29.3 26.0 - 34.0 pg 01/14/2024 6:33 AM CDT [facility] MCHC 32.4 32.0 - 36.0 g/dL 01/14/2024 6:33 AM CDT [facility] RDW 14.4 11.5 - 15.5 % 01/14/2024 6:33 AM CDT [facility] PLATELET COUNT 198 140 - 440 thou/cu mm 01/14/2024 6:33 AM CDT [facility] MPV 11.4(H) 6.5 - 11.0 fL 01/14/2024 6:33 AM CDT [facility] NRBC 0.0 % 01/14/2024 6:33 AM CDT [facility] ABS NRBC 0.0 thou /cu mm 01/14/2024 6:33 AM T [facility] Blood BLOOD SPECIMEN / Unknown Non-Lab Venipuncture / Unknown 01/14/2024 5:28 AM CDT 01/14/2024 6:31 AM CDT Barbara Holcomb NP HEMATOLOGY Performing Organization Address [facility] Co de Phone Number [facility] [address] [place] [address], * (ABNORMAL) CALCIUM IONIZED HOSPITAL DRAW ONLY (01/14/2024 5:28 AM CDT) Only the most recent of3 resultswithin the time period is included. CALCIUM,IONIZE D 1.30(H) 1.15 - 1.27 mmol/L 01/14/2024 6:03 AM CDT [facility] Blood BLOOD SPECIMEN / Unknown Non-Lab Venipuncture / Unknown 01/14/2024 5:28 AM CDT 01/14/2024 5:49 AM CDT Grace Eldridge MD CHEMISTRY Performing Organization Address [facility] Co de Phone Number [facility] [address] [place] [address], * ECHO TTE COMPLETE W CONTRAST (01/13/2024 3:56 PM CDT) AORTIC VALVE MEAN PG 7 mmHg EJECTION FRACTION 64 % LVEDD 4.1 cm EJECTION FRACTION 60 - 65% Anatomical Region Laterality Modality Ultrasound 01/13/2024 2:53 PM CDT Narrative 01/13/2024 4:39 PM CDT ECHOCARDIOGRAM ALIDA KUHN ? Accession#: ?? [id number] : ?1960 63 years Study Date: ?? 01/13/2024 2:53:14 PM Gender: F ?BP: ? 114/44 mmHg Height: 152.00 cm ?BSA: ?1.93 m? ? ? Weight: 98.00 kg ? Tech: ? KBA ? Referring MD: BARBARA HOLCOMB Site: ? [facility] Reading Location: [facility] IP Patient Location: Inpatient. Procedure: 2D w/ [...] documentation: 2 ml diluted Definity, lot #[id number], [facility]# [id number] was administered peripherally to enhance visualization of all left ventricular segments. . This study was interpreted by an [facility] accredited facility. ??Final ?? Procedure Note Travon Blood MD - 01/13/2024 ECHOCARDIOGRAM ALIDA KUHN : 1960 63 years Study Date: 01/13/2024 2:53:14 PM Gender: F BP: 114/44 mmHg Height: 152.00 cm BSA: 1.93 m? ? ? Weight: 98.00 kg Tech: PASQUALE Romero MD: BARBARA HOLCOMB Site: [facility] Reading Location: [facility] IP Patient [...] documentation: 2 ml diluted Definity, lot #[id number], [facility]#[id number] was administered peripherally to enhance visualization of allleft ventricular segments. . This study was interpreted by an [facility] accredited facility. Final Barbara Holcomb INSTALL AND REPAIR TECHNICIAN ECHO ORD * US ARTERIAL LOWER EXTREMITY [...] 125 mmHg Left Brachial: 111 mmHg Right 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: Noncompressible Right DPA: 115 mmHg (SAMUEL 0.92) Left 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: Noncompressible Left DPA: Noncompressible SAMUEL: 1.0-1.4 - normal 0.9-0.99 - borderline 0.80-0.89 - mild 0.50-0.79 - moderate 0.30-0.49 - severe < 0.30 - critical RIGHT: NEWS REEL CAMERAMAN PROX: 204 cm/sec; triphasic waveforms NEWS REEL CAMERAMAN DIST: 138 cm/sec; triphasic waveforms PFA: 97 cm/sec; triphasic waveforms SFA PROX: 140, 111 cm/sec; triphasic waveforms SFA MID: 113, 74 cm/sec; triphasic waveforms SFA DIST: 107, 113 cm/sec; triphasic waveforms POP PROX: 105 cm/sec; triphasic waveforms POP DIST: 89 cm/sec; triphasic waveforms 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: 32 cm/sec; triphasic waveforms KAITLYN: 58 cm/sec; triphasic waveforms DPA: 56 cm/sec; triphasic waveforms LEFT: NEWS REEL CAMERAMAN PROX: 193 cm/sec; triphasic waveforms NEWS REEL CAMERAMAN DIST: 152 cm/sec; triphasic waveforms PFA: 98 cm/sec; triphasic waveforms SFA PROX: 119, 109 cm/sec; triphasic waveforms SFA MID: 103, 102 cm/sec; triphasic waveforms SFA DIST: 103, 100 cm/sec; triphasic waveforms POP PROX: 124 cm/sec; triphasic waveforms POP DIST: 85 cm/sec; triphasic waveforms 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: 169 cm/sec; triphasic waveforms KAITLYN: [...] 125 mmHg Left Brachial: 111 mmHg Right 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: Noncompressible Right DPA: 115 mmHg (SAMUEL 0.92) Left 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: Noncompressible Left DPA: Noncompressible SAMUEL: 1.0-1.4 - normal 0.9-0.99 - borderline 0.80-0.89 - mild 0.50-0.79 - moderate 0.30-0.49 - severe < 0.30 - critical RIGHT: NEWS REEL CAMERAMAN PROX: 204 cm/sec; triphasic waveforms NEWS REEL CAMERAMAN DIST: 138 cm/sec; triphasic waveforms PFA: 97 cm/sec; triphasic waveforms SFA PROX: 140, 111 cm/sec; triphasic waveforms SFA MID: 113, 74 cm/sec; triphasic waveforms SFA DIST: 107, 113 cm/sec; triphasic waveforms POP PROX: 105 cm/sec; triphasic waveforms POP DIST: 89 cm/sec; triphasic waveforms 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: 32 cm/sec; triphasic waveforms KAITLYN: 58 cm/sec; triphasic waveforms DPA: 56 cm/sec; triphasic waveforms LEFT: NEWS REEL CAMERAMAN PROX: 193 cm/sec; triphasic waveforms NEWS REEL CAMERAMAN DIST: 152 cm/sec; triphasic waveforms PFA: 98 cm/sec; triphasic waveforms SFA PROX: 119, 109 cm/sec; triphasic waveforms SFA MID: 103, 102 cm/sec; triphasic waveforms SFA DIST: 103, 100 cm/sec; triphasic waveforms POP PROX: 124 cm/sec; triphasic waveforms POP DIST: 85 cm/sec; triphasic waveforms 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: 169 cm/sec; triphasic waveforms KAITLYN: [...] 01/14/2024 4:57:16 PM (Electronically Signed) Freya Schafer INSTALL AND REPAIR TECHNICIAN US * US RENAL AND BLADDER COMPLETE [...] @ 01/14/2024 2:34:58 AM (Electronically Signed) Barbara Martinez Zhang INSTALL AND REPAIR TECHNICIAN US * XR FOOT 3 VIEWS LEFT [...] CDT) CULTURE RESULT(A) 01/16/2024 2:44 PM CDT [facility] CULTURE 3+ Corynebacterium striatum 01/16/2024 2:44 PM CDT [facility] CULTURE 2+ Mixed oni present 01/16/2024 2:44 PM CDT [facility] GRAM STAIN No PMNs 01/16/2024 2:44 PM CDT [facility] GRAM STAIN 2+ RBCs 01/16/2024 2:44 PM CDT [facility] GRAM STAIN No Epithelial cells 01/15 2:44 PM CDT [facility] GRAM STAIN 2+ Gram Positive Bacilli 01/16/2024 2:44 PM CDT [facility] Other (Other) Non-Blood / Unknown 01/13/2024 11:49 AM CDT 01/13/2024 12:00 PM CDT Narrative [facility] - 01/16/2024 2:44 PM CDT Mixed oni; No Staphylococcus aureus, beta-Streptococcus, Streptococcus pneumoniae, or Pseudomonas aeruginosa isolated. Freya Schafer NP MICROBIOLOGY [facility] [address] [place] [address], * ANAEROBIC CULTURE (01/13/2024 11:49 AM CDT) CULTURE No anaerobes isolated 01/19/2024 10:01 AM CDT [facility] Other (Other) Non-Blood / Unknown 01/13/2024 11:49 AM CDT 01/13/2024 12:00 PM CDT Freya Schafer NP MICROBIOLOGY Performing Organization Address [facility] Co de Phone Number [facility] [address] [place] [address], * (ABNORMAL) Electrolytes Panel - DKA (01/13/2024 10:53 AM CDT) Only the most recent of3 resultswithin the time period is included. SODIUM 140 136 - 145 mmol/L 01/13/2024 11:36 AM CDT [facility] POTASSIUM 5.2(H) 3.5 - 5.1 mmol/L 01/13/2024 11:36 AM CDT [facility] CHLORIDE 107 98 - 107 mmol/L 01/13/2024 11:36 AM CDT [facility] CO2,TOTAL 21(L) 22 - 29 mmol/L 01/13/2024 11:36 AM CDT [facility] ANION GAP 12 5 - 18 01/13/2024 11:36 AM CDT [facility] Blood BLOOD SPECIMEN / Unknown Non-Lab Venipuncture / Unknown 01/13/2024 10:53 AM CDT 01/13/2024 11:01 AM CDT Ifeanyi Hernández RN CHEMISTRY Performing Organization Address [facility] Co de Phone Number [facility] [address] [place] [address], * SCAN-CARDIAC STRIP (01/13/2024 8:00 AM CDT) [...] Ifeanyi Hernández RN CHEMISTRY Performing Organization Address [facility] de Phone Number [facility] [address] [place] [address], * (ABNORMAL) Serum Glucose - DKA (01/13/2024 1:52 AM CDT) Only the most recent of2 resultswithin the time period is included. Pathologist [facility] GLUCOSE,RANDOM 459(H) 70 - 139 mg/dL 01/13/2024 2:46 AM CDT [facility] Blood BLOOD SPECIMEN / Unknown Non-Lab Venipuncture / Unknown 01/13/2024 1:52 AM CDT 01/13/2024 2:03 AM CDT Emily Guzman MD CHEMISTRY Performing Organization Address [facility] de Phone Number [facility] [address] [place] [address], [place] * (ABNORMAL) TROPONIN T (HS) ONE TIME (01/12/2024 11:39 PM CDT) [facility] TROPONIN T HS 45(H) 6-10 ng/L ng/L 01/13/2024 12:22 AM CDT [facility] Blood BLOOD SPECIMEN / Unknown Non-Lab Venipuncture / Unknown 01/12/2024 11:39 PM CDT 01/12/2024 11:45 PM CDT Emily Guzman MD CHEMISTRY Performing Organization Address [facility] Co de Phone Number [facility] [address] [place] [address], [place] * 12 Lead EKG (01/12/2024 10:16 PM CDT) [facility] Interpretation Normal sinus rhythm Left axis deviation Abnormal ECG When compared with ECG of 02-Jan-2019 02:01, Nonspecific T wave abnormality now evident in Lateral leads BEYOND NOW Ventricular Rate 78 BPM BEYOND NOW Atrial Rate 78 BPM BEYOND NOW P-R Interval 160 ms BEYOND NOW QRS Duration 82 ms BEYOND NOW QT 400 ms BEYOND NOW QTc 456 ms BEYOND NOW P Hammond 72 degrees BEYOND NOW R Hammond -31 degrees BEYOND NOW T Hammond 69 degrees BEYOND NOW 01/12/2024 10:1 6 PM CDT 01/13/2024 8:20 PM CDT Emily Guzman MD EKG ORD Performing Organization Address [facility] Co de Phone Number [place]OND NOW [place], [place] * MRSA/SA PCR (01/12/2024 10:07 PM CDT) MRSA DNA PCR Negative Negative 01/12/2024 11:33 PM CDT [facility] STAPHYLOCOCCUS AUREUS PCR Negative Negative 01/12/2024 11:33 PM CDT [facility] Other SPECIMEN FROM INTERNAL NOSE / Unknown Non-Blood / Unknown 01/12/2024 10:07 PM CDT 01/12/2024 10:13 PM CDT Narrative [facility] - 01/12/2024 11:33 PM CDT Test result does not preclude MRSA or SA nasal colonization. Chaparro Sneed DO MICROBIOLOGY Performing Organization Address [facility] Co de Phone Number [facility] [address] [place] [address], * (ABNORMAL) Urine Culture (01/12/2024 10:07 PM CDT) CULTURE RESULT(A) 01/16/2024 6:58 AM CDT [facility] CULTURE 10,000-50,000 CFU/mL Proteus mirabilis 01/16/2024 6:58 AM CDT [facility] CULTURE 50,000-100,000 CFU/mL Danita albicans 01/16/2024 6:58 AM CDT [facility] Urine URINE SPECIMEN [...] 128: R Emily Guzman MD MICROBIOL OGY [facility] [address] [place] [address], * Blood Culture (01/12/2024 9:40 PM CDT) Only the most recent of2 resultswithin the time period is included. CULTURE No Growth. 01/16/2024 11:23 PM CDT [facility] Blood BLOOD SPECIMEN / Unknown Venipuncture / Unknown 01/12/2024 9:40 PM CDT 01/12/2024 9:52 PM CDT Narrative [facility] - 01/16/2024 11:23 PM CDT Low volume blood culture received; possible false negative culture. Emily Guzman MD MICROBIOL OGY [facility] [address] [place] [address], [place] * (ABNORMAL) TROPONIN T(HS) ACUTE W/2HR REFLEX (01/12/2024 9:37 PM CDT) TROPONIN T HS 47(H) 6-10 ng/L ng/L 01/12/2024 10:16 PM CDT [facility] Blood BLOOD SPECIMEN / Unknown Non-Lab Venipuncture / Unknown 01/12/2024 9:37 PM CDT 01/12/2024 9:46 PM CDT Narrative [facility] - 01/12/2024 10:16 PM CDT [...] department patient population. Emily Guzman MD CHEMISTRY [facility] [address] [place] [address], * (ABNORMAL) CBC WITH AUTO DIFFERENTIAL (01/12/2024 9:37 PM CDT) [facility] WHITE BLOOD COUNT 14.9(H) 4.5 - 11.0 thou/cu mm 01/12/2024 9:54 PM CDT [facility] RED BLOOD COUNT 3.61(L) 4.00 - 5.20 mil/cu mm 01/12/2024 9:54 PM CDT [facility] HEMOGLOBIN 10.5(L) 12.0 - 16.0 g/dL 01/12/2024 9:54 PM CDT [facility] HEMATOCRIT 32.6(L) 33.0 - 51.0 % 01/12/2024 9:54 PM CDT [facility] MCV 90 80 - 100 fL 01/12/2024 9:54 PM CDT [facility] MCH 29.1 26.0 - 34.0 pg 01/12/2024 9:54 PM CDT [facility] MCHC 32.2 32.0 - 36.0 g/dL 01/12/2024 9:54 PM CDT [facility] RDW 13.2 11.5 - 15.5 % 01/12/2024 9:54 PM CDT [facility] PLATELET COUNT 273 140 - 440 thou/cu mm 01/12/2024 9:54 PM CDT [facility] MPV 11.0 6.5 - 11.0 fL 01/12/2024 9:54 PM CDT [facility] NRBC 0.0 % 01/12/2024 9:54 PM CDT [facility] ABS NRBC 0.0 thou /cu mm 01/12/2024 9:54 PM CDT [facility] % NEUT 80.3 % 01/12/2024 9:54 PM CDT [facility] % LYMPH 9.6 % 01/12/2024 9:54 PM CDT [facility] % MONO 9.2 % 01/12/2024 9:54 PM CDT [facility] % EOS 0.1 % 01/12/2024 9:54 PM CDT [facility] % BASO 0.1 % 01/12/2024 9:54 PM CDT [facility] % IMMATURE GRAN (METAS,MYELOS,WV OS) 0.7 % 01/12/2024 9:54 PM CDT [facility] ABSOLUTE NEUTROPHILS 12.0(H) 1.7 - 7.0 thou/cu mm 01/12/2024 9:54 PM CDT [facility] ABSOLUTE LYMPHOCYTES 1.4 0.9 - 2.9 thou/cu mm 01/12/2024 9:54 PM CDT [facility] ABSOLUTE MONOCYTES 1.4(H) <0.9 thou/cu mm 01/12/2024 9:54 PM CDT [facility] ABSOLUTE EOSINOPHILS 0.0 <0.5 thou/cu mm 01/12/2024 9:54 PM CDT [facility] ABSOLUTE BASOPHILS 0.0 <0.3 thou/cu mm 01/12/2024 9:54 PM CDT [facility] ABSOLUTE IMMATURE GRANULOCYTES(MET ,MYELOS,PROS) 0.1 <0.3 thou/cu mm 01/12/2024 9:54 PM CDT [facility] Blood BLOOD SPECIMEN / Unknown Non-Lab Venipuncture / Unknown 01/12/2024 9:37 PM CDT 01/12/2024 9:46 PM CDT Emily Guzman MD HEMATOLOG Y [facility] [address] [place] [address], [place] * (ABNORMAL) BLOOD GAS,VENOUS (01/12/2024 9:37 PM CDT) PH, VENOUS 7.25(L) 7.32 - 7.43 01/12/2024 9:52 PM CDT [facility] PCO2, VENOUS 44 41 - 51 mmHg 01/12/2024 9:52 PM CDT [facility] PO2, VENOUS 48(H) 35 - 40 mmHg 01/12/2024 9:52 PM CDT [facility] HCO3,VENOUS 19(L) 22 - 29 mmol/L 01/12/2024 9:52 PM CDT [facility] BASE EXCESS, VENOUS, POCT -7.7(L) -2.0 - 3.0 01/12/2024 9:52 PM CDT [facility] O2 SATURATION, VENOUS 85(H) 70 - 75 % 01/12/2024 9:52 PM CDT [facility] INSPIRED O2 21 01/12/2024 9:52 PM CDT [facility] Comment:Unit of Measure: Lit ers (L) if <=20; Percent (%) if >20 PATIENT TEMPERATURE 36.9 Degrees C 01/12/2024 9:52 PM CDT [facility] Blood VENOUS BLOOD SPECIMEN / Unknown Non-Lab Venipuncture / Unknown 01/12/2024 9:37 PM CDT 01/12/2024 9:46 PM CDT Emily Guzman MD CHEMISTRY [facility] [address] [address], [place] * Protime - INR (01/12/2024 9:37 PM CDT) INR 1.0 <1.3 01/12/2024 9:56 PM CDT [facility] PROTIME 11.5 10.3 - 12.3 sec 01/12/2024 9:56 PM CDT [facility] Blood BLOOD SPECIMEN / Unknown Non-Lab Venipuncture / Unknown 01/12/2024 9:37 PM CDT 01/12/2024 9:46 PM CDT Narrative [facility] - 01/12/2024 9:56 PM CDT ?Therapeutic [...] on UFH. Emily Guzman MD HEMATOLOG Y [facility] [address] [place] [address], * (ABNORMAL) HEMOGLOBIN A1C MONITORING (POCT) (01/12/2024 9:37 PM CDT) Only the most recent of2 resultswithin the time period is included. HEMOGLOBIN A1C MONITORING (POCT) 9.3(H) <=6.4 % 01/14/2024 10:29 AM CDT [facility] Blood BLOOD SPECIMEN / Unknown Non-Lab Venipuncture / Unknown 01/12/2024 9:37 PM CDT 01/12/2024 9:46 PM CDT Narrative [facility] - 01/14/2024 10:29 AM CDT [...] seen with: Untreated Anemias, Splenectomy ? Barbara Michelle Holcomb INSTALL AND REPAIR TECHNICIAN CHEMISTRY [facility] [address] [place] [address], * (ABNORMAL) Hepatic Function Panel (01/12/2024 9:37 PM CDT) ALBUMIN 3.2(L) 4.0 - 4.9 g/dL 01/12/2024 10:16 PM CDT [facility] PROTEIN,TOTAL 6.4 6.0 - 8.0 g/dL 01/12/2024 10:16 PM CDT [facility] BILIRUBIN,TOTAL 0.2 0.0 - 1.2 mg/dL 01/12/2024 10:16 PM CDT [facility] BILIRUBIN,DIRECT <0.2 0.0 - 0.3 mg/dL 01/12/2024 10:16 PM CDT [facility] BILIRUBIN,INDIRE CT 01/12/2024 10:16 PM CDT [facility] Comment:Unable to calculate, Direct Bili <0.2 ALK PHOSPHATASE 122(H) 35 - 104 IU/L 01/12/2024 10:16 PM CDT [facility] ALT (SGPT) 21 10 - 35 IU/L 01/12/2024 10:16 PM CDT [facility] AST (SGOT) 20 10 - 35 IU/L 01/12/2024 10:16 PM CDT [facility] Blood BLOOD SPECIMEN / Unknown Non-Lab Venipuncture / Unknown 01/12/2024 9:37 PM CDT 01/12/2024 9:46 PM CDT Emily Guzman MD CHEMISTRY [facility] [address] [place] [address], * SCAN-CARDIAC STRIP (01/12/2024 9:20 PM CDT) [...] health care provider. XR MAMMO BILAT SCREENING [[id number]] CLINICAL HISTORY: ??This is an asymptomatic 61 y.o. patient. INDICATION FOR EXAM: Mammogram Screening. TECHNIQUE: CC & MLO views were obtained. ??This study was evaluated with the assistance of Computer-Aided Detection. COMPARISON FILM: Yes 03/02/18 [employer] 07/26/13 [facility] [employer] FINDINGS: ??The breasts are extremely dense, which lowers the sensitivity of mammography. There are no dominant masses, suspicious micro calcifications or areas of architectural distortion. Shania Montiel MD MAMMO * LIPID PANEL W REFLEX MEASURED LDL (04/28/2022 1:44 PM CDT) CHOLESTEROL,TOTAL 139 100 - 199 mg/dL 04/30/2022 6:25 PM CDT [facility] TRIGLYCERIDES 141 <150 [...] 1:45 PM CDT Shania Montiel MD CHEMISTRY [facility] [address] [place] [address], * FECAL DNA (AKA COLOGUARD) (11/10/2021 1:00 PM CDT) Shania Montiel MD COMMUNICATION ORD * ANTI HCV [[id number]] (02/16/2018 4:20 PM CDT) HEPATITIS C ANTIBODY Non-React alex Non-React alex 02/17/2018 2:48 PM CDT [facility] Comment:Antibodies to HCV no t detected; does not exclude the possibility of exposure to HCV. Blood BLOOD SPECIMEN / Unknown Butterfly / Unknown 02/16/2018 4:20 PM CDT 02/16/2018 4:20 PM CDT Coleman Plata MD SEND OUTS [facility] [address] [place] [address], * HIV 1&2 TODAY (07/21/2015 9:40 AM DIGITAL MEDIA STRATEGIST) HIV-1/HIV-2 ANTIBODY Non-Reacti ve Non-Reacti ve 07/21/2015 10:31 AM DIGITAL MEDIA STRATEGIST [facility] Blood specimen (specimen) BLOOD SPECIMEN / Unknown Venipuncture / Unknown 07/21/2015 9:40 AM DIGITAL MEDIA STRATEGIST 07/21/2015 9:47 AM DIGITAL MEDIA STRATEGIST Narrative [facility] - 07/21/2015 10:31 AM DIGITAL MEDIA STRATEGIST HIV-1 p24 and HIV-1/HIV-2 Ab not detected Kait Morales DO SEND OUTS Performing Organization Address City/[facility]/ZIP Co de Phone Number [facility] [address] [place] [address], * ORCHARD WORKER THIN PREP PAP SCREEN IMAGED (08/17/2012 4:02 PM DIGITAL MEDIA STRATEGIST) Pathologist [facility] CYTOLOGY CYTOPATHOLOGY REPORT [facility] [employer] Status: Final Status ?[id number] CLINICAL INFORMATION Last Date of LMP ? :07/03/2012 Last Pap Date ?:02/01/2011 Last Pap Result ?:NIL ABN Johnston/Bx Past 5 YRS :None Hormone Usage ?:BCP/OCP/Patch/R ing Menstrual Status ? :Regular Periods Johnston/Bx done today ? :No Additional Information :None [...] COLLECTED:08/17/12 ? ACCESSIONED: ??08/18/12 ?? SIGNED: ??08/21/12 [facility] PAP [place] CODE NIL [facility] Tissue specimen (specimen) (Cervical/Vagina l) 08/17/2012 4:02 PM DIGITAL MEDIA STRATEGIST 08/17/2012 4:00 PM DIGITAL MEDIA STRATEGIST Coleman Plata MD PATHOLOGY/CYTOLOGY [facility] [place]NAL ZIP [phone] [facility] [place] [address] from Last 3 Months or Most Recently [...] Urine earlier this year (per report from [facility], not available in CareEverywhere), 04/19/18 L cheek abscess exclusions for contact precaution discontinuation (if > 12 months since positive culture): resides in acute/senior care care, receiving hemodialysis, has chronic open wounds/skin [...] 8:01 PM 07/15/2012 6:55 PM Care Teams Food And Beverage Operations Manager Relationship Specialty Start Date End Date Barbara Valentin DO [address] [place] [address] PCP - General Family Practice 11/15/22 Julio Ibrahim MD [address] [place] [address] Surgery - Orthopedics 02/01/11 Chuy Doss MD [address] [place], [place] [id number] Surgery - Vascular 02/01/11 Markel Strong MD [address] [place] [address] Provider Family Practice 08/08/20 Nikolai Ibarra MD [address] [facility] [address] [place] [address] Endocrinology 09/07/22 [facility] [place] [address] [place] [address] 01/17/24 Suad Ng/ [employer] Builder And Erector 07/14/17 [facility] Home Health Nurse 07/01/17 [facility] ENTERTAINMENT PRODUCTION PROFESSIONAL Services Home Health Aide 07/14/17 [facility] Quality Control Technician/ Ally Morillom [address] [place] [address] Tank [employer]ctor 07/07/17
== END 2024-03-22 15:03 | disposition home or self-care (01) ==
PROVIDERS: PCP Family Medicine; Visit Provider Nurse Practitioner Family
DX: E11.621 Type 2 diabetes mellitus with foot ulcer (principal); L97.422 Non-pressure chronic ulcer of left heel and midfoot with fat layer exposed; M14.672 Charcot's joint, left ankle and foot; Z79.4 Long term (current) use of insulin
CPT/HCPCS: G0463

== ENCOUNTER 2024-03-28 00:20 | Outpatient (CLI) | payer OTHER, SELFPAY ==
--- OUTSIDE RECORDS SUMMARY | 2024-04-11 12:01 | XMS_ITS | Clinical Summary ---
Author Organization [facility] Address [place], [place] [address] Care Team Providers Care Block Trader Name Role Phone Julio Ibrahim MD Unavailable [phone] Chuy Doss MD Unavailable Markel Strong MD Unavailable Nikolai Ibarra MD Unavailable Barbara Valentin DO [facility] Provider [facility] Allergies Active Allergy Reactions Criticality Noted [...] u-100 (UltiCare) 1 mL 31 gauge x /16Indications:D iabetes mellitus type 1 with complications (HC) For administering insulin at home.FOR ADMINISTERING INSULIN SUBCUTANEOUSLY AT HOME 100 Each 03/02/20 21 Active glucagon (Baqsimi) 3 mg/actuation nasal sprayIndications: patient with diabetes mellitus at risk of hypoglycemia Inhale 1 [place] into affected nostril(s) each time if needed for Severe Hypoglycemia. Roll on side and call 911 after administration. 2 Each 12/25/19 Active fluticasone (50 mcg per actuation) nasal solution (FLONASE)Indicati ons:Nasal congestion Inhale 1 [place] into affected nostril(s) once daily. Inhale 1 [place] in the nostril(s) once daily. 16 g [...] 2-3 MIN. 2 Each 2 01/29/20 Active sennosides-docusa te (Stool Softener-Stimulan t Laxat) (8.6-50 mg) tabletIndications :Chronic constipation TAKE TWO TABLETS BY MOUTH TWO TIMES DAILY NEEDED FOR CONSTIPATION. 360 Tablet 2 04/20/20 Active continuous glucose monitor READER (FreeStyle Elli 2 [place])Indication s:Type 1 diabetes mellitus with other specified complication (HC) To be used to read blood sugars per mold release worker's directions. 1 Each 05/19/20 Active blood-glucose [...] per day. 400 Each 3 05/19/20 Active lancetsIndication s:Type 1 diabetes mellitus with [...] used to read blood sugars per mold release worker's directions. 6 Each 3 09/06/19 24 Active polyethylene glycoL (MIRALAX) 17 [...] 4000mg in 24 hrs. 01/17/20 24 Active insulin glargine, U-100, (LANTUS) [...] Chronic, continuous use of opioids Inhale 1 [place] into affected nostril(s) each time if needed [...] day. Use dates: 03/22/24-04/20/24 60 Tablet 03/19/20 24 Active amLODIPine (NORVASC) 2.5 mg tabletIndications :Essential hypertension TAKE 1 TABLET (2.5 MG) BY MOUTH TWO TIMES DAILY. 180 Tablet 3 04/08/20 24 Active omeprazole (PRILOSEC) 20 mg Delayed-Release capsuleIndication s:Chronic GERD TAKE 1 CAPSULE (20 MG) BY MOUTH ONCE DAILY BEFORE A MEAL. 90 Capsule 3 04/08/20 24 Active albuterol HFA (PRO-AIR; VENTOLIN; PROVENTIL) 90 mcg/actuation inhalerIndication s:Chronic obstructive pulmonary disease, unspecified COPD type (HC) Inhale 1-2 Puffs by mouth every 4 hours if needed for Shortness Of Breath or Wheezing. 3 Each 3 04/06/20 24 Active fluticasone propion-salmetero L (ADVAIR) 100-50 mcg/dose diskus inhalerIndication s:Chronic obstructive pulmonary disease, unspecified COPD type (HC) Inhale 1 Puff by mouth two times daily. 60 Each 04/06/20 24 Active pregabalin (LYRICA) 100 mg capsuleIndication s:Chronic pain syndrome Take 1 Capsule (100 mg) by mouth once daily. In the morning 90 Capsule 04/06/20 24 Active pregabalin (LYRICA) 150 mg capsuleIndication s:Diabetic peripheral neuropathy (HC) TAKE ONE CAPSULE BY MOUTH EVERY EVENING 90 Capsule 04/06/20 24 Active amLODIPine (NORVASC) 2.5 mg tabletIndications :Essential hypertension Take 1 Tablet (2.5 mg) by mouth two times daily. 180 Tablet 3 02/29/20 23 024 Discontinued omeprazole (PRILOSEC) 20 mg Delayed-Release capsuleIndication s:Chronic GERD Take 1 Capsule (20 mg) by mouth once daily before a meal. 90 Capsule 1 09/06/19 24 024 Discontinued FLUoxetine (PROZAC) 10 mg capsuleIndication s:Moderate episode of recurrent major depressive disorder (HC) TAKE 1 CAPSULE (10 MG) BY MOUTH ONCE DAILY. 60 Capsule 01/13/20 24 024 Discontinued pregabalin (LYRICA) 100 mg capsuleIndication s:Chronic pain syndrome Take 1 Capsule (100 mg) by mouth two times daily. 01/17/20 24 024 Discontinued(*M edication adjustment) DULoxetine (CYMBALTA) 60 mg Delayed-release capsuleIndication s:Adjustment [...] 24 024 Discontinued(Re order (E-cancel not sent)) pregabalin (LYRICA) 50 mg capsuleIndication s:Diabetic peripheral neuropathy (HC) TAKE ONE CAPSULE BY MOUTH EVERY EVENING WITH 1-100MG CAPSULE TO TOTAL 150MG 60 Capsule 2 03/20/20 24 024 Discontinued(*M edication adjustment) Active Problems Patient Care Coordination No te Formatting of this note migh t be different from the original. Family and Getting more independent is what matters most to Kati. Kati would like her care team to know she has supportive family. What are Kati's challenges, stressors, or barriers? Mobility, finances. 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 10/07/2023 4:39 [...] hypoxia which led to extended stay in intermediate card tender care 07/2015- 05/2017 Hospitalized with ketoacidosis 06/2017 [...] post total right knee replacement 01/02/2015 06/10/2017 intermediate card tender (current) use of anticoagulants 11/27/2013 12/28/2013 Anticoagulation [...] Encounters Date Type Department Care Team Description 04/09/2024 Patient Outreach [facility] Care Management - Care Management Navigation/[facility] [address] [place] [address] Aide Rolon [facility] (Care Guide Breast Cancer Screening outreach/) 04/09/2024 Home Care Visit [facility] [address] [place] [phone] Elvi Meyers RN CARE COORDINATION 04/06/2024 11:25 AM CDT Office Visit [facility] [address] [place] [address] Saúlqra Barbara Patricia, DO Hospital F/U (Hypoglycemia - ER/hospital 03/29, 04/06 ) 04/06/2024 Orders Only [facility] Medical Specialties [facility] [address] [facility] [address] [place] [address] Nikolai Ibarra MD <No scans attached> 04/06/2024 Travel 04/04/[address] [facility] [address] [place] [address] Saúlqra Barbara Patricia, DO Refill Request (Amlodipine, Omeprazole) 03/27/[address] [facility] [address] [place] [address] Barbie Barbara Patricia, DO Questions 03/16/2024 Refill [facility] [address] [facility] [address] [place] [address] Toshia Hooks NP Refill Request 03/14/2024 10:30 AM CDT Home Care Visit [facility] [address] [place] [phone] Geneva Sanchez, LOS SN - OASIS DISCHARGE 03/12/[address] [facility] [address] [place] [address] Barbie Barbara Patricia, DO Refill Request (Pregabalin, Fluoxetine, Duloxetine) 03/06/2024 10:00 AM CDT Home Care Visit [facility] [address] [place] [phone] Geneva Sanchez, LOS SN - HOME VISIT 03/06/2024 9:15 AM CDT Home Care Visit [facility] [address] [place] [phone] Alex Contreras CANDLE MAKER - HOME VISIT 03/03/2024 Home Care Visit [facility] [address] [place] [phone] Nitza Riojas LISW CARE COORDINATION 02/28/2024 2:00 PM CDT Home Care Visit [facility] [address] [place] [phone] Shania Elaine, LOS SN - HOME VISIT 02/28/2024 10:45 AM CDT Home Care Visit [facility] [address] [place] [phone] Fabiola Mathis CANDLE MAKER - HOME VISIT 02/25/2024 Home Care Visit [facility] [address] [place] [phone] Nitza Riojas LISW CARE COORDINATION 02/22/2024 3:00 PM CDT Home Care Visit [facility] [address] [place] [phone] Trini Hitchcock, LOS SN - HOME VISIT 02/22/2024 Home Care Visit [facility] [address] [place] [phone] Dar Phillips, OT OT - DISCIPLINE DISCHARGE 02/21/2024 9:45 AM CDT Home Care Visit [facility] [address] [place] [phone] Alex Contreras CANDLE MAKER - HOME VISIT 02/20/2024 Home Care Visit [facility] [address] [place] [phone] Nitza Riojas LISW BREAD WRAPPING MACHINE FEEDER - INITIAL ASSESSMENT 02/16/2024 [facility] [address] [place] [address] Toshia Hoosk NP Refill Request (oxyCODONE (ROXICODONE) 5 mg immediate release tablet ) 02/15/2024 3:45 PM CDT Home Care Visit [facility] [address] [place] [phone] Coleman Greene, PT PT - DISCIPLINE DISCHARGE 02/15/2024 11:00 AM CDT Home Care Visit [facility] [address] [place] [phone] Geneva Sanchez RN SN - HOME VISIT 02/14/2024 12:00 PM CDT Home Care Visit [address] [phone] Joi Moreno, VARELA OT - HOME VISIT 02/14/2024 8:15 AM CDT Home Care Visit [address] [phone] Fabiola Mathis CANDLE MAKER - HOME VISIT 02/10/2024 3:30 PM CDT Home Care Visit [place] [phone] [place] [phone] Joi Moreno, VARELA OT - HOME VISIT 02/10/2024 Home Care Visit [address] [phone] Nitza Riojas LISW BREAD WRAPPING MACHINE FEEDER - CASE COMMUNICATION 02/09/2024 Refill [facility] [address] [place] [phone] Barbara Valentin Patricia, DO Refill Request (Duloxetine) 02/08/2024 3:00 PM CDT Home Care Visit [place] [phone] [place] [phone] Veda Resendiz RN SN - WOUND/OSTOMY CHART CONSULT 02/08/2024 9:00 AM CDT Home Care Visit [address] [phone] Geneva Sanchez, LOS SN - HOME VISIT 02/08/[address] [facility] [address] [place] [address] Barbara Valentin, Pharmacist Medication Management (MEDICATION CHANGE) 02/08/2024 Telephone [facility] [address] [facility] [place] [address] Geneva Sanchez access tech List Update 02/07/2024 4:00 PM CDT Home Care Visit [facility] [address] [place] [phone] Joi Moreno COTA OT - HOME VISIT 02/07/2024 9:30 AM CDT Home Care Visit [facility] [address] [place] [phone] Kendal Serna, PT PT - HOME VISIT 02/07/[address] [facility] [address] [place] [address] Barbara Valentin Patricia, DO Refill Request (Insulin lispro pens) 02/04/[address] [facility] [address] [place] [address] Barbara Valentin Patricia, DO Refill Request (Insulin Lispro) 02/03/2024 9:00 AM CDT Home Care Visit [facility] [address] [place] [phone] Joi Moreno VARELA OT - HOME VISIT 02/02/2024 11:00 AM CDT Home Care Visit [facility] [address] [place] [phone] Kendal Serna, PT PT - HOME VISIT 02/01/2024 4:00 PM CDT Home Care Visit [address] [phone] Joi Moreno COTA OT - HOME VISIT 01/31/2024 9:30 AM CDT Home Care Visit [facility] [address] [place] [address] Fabiola Mathis CANDLE MAKER - HOME VISIT 01/31/2024 Home Care Visit [facility] [address] [place] [address] Oumou Burns, RN CARE COORDINATION 01/31/2024 Home Care Visit [facility] [address] [place] [address], [place] [phone] Oumou Burns, LOS CARE COORDINATION 01/30/2024 10:45 AM CDT Home Care Visit [facility] [address] [place] [address], [place] [address] Kendal Serna, PT PT - HOME VISIT 01/30/2024 9:00 AM CDT Home Care Visit [facility] [address] [place] [address], [place] [phone] Geneva Sanchez, LOS SN - INITIAL ASSESSMENT 01/25/2024 1:30 PM CDT Home Care Visit [facility] [address] [place] [address], [place] [phone] Coleman Greene, PT PT - HOME VISIT 01/25/2024 Travel 01/24/2024 1:00 PM CDT Home Care Visit [facility] [address] [place] [address], [place] [phone] Dar Phillips, OT OT - INITIAL ASSESSMENT 01/24/2024 9:30 AM CDT Home Care Visit [facility] [address] [place] [address], [place] [phone] Fabiola Mathis CANDLE MAKER - HOME VISIT 01/24/2024 Home Care Visit [facility] [address] [place] [address], [place] [phone] Narcisa Atkinson, RN CARE COORDINATION 01/23/2024 Home Care Visit [facility] [address] [place] [phone] Narcisa Atkinson, RN CARE COORDINATION 01/20/2024 [facility] [address] [place] [address] Toshia Hooks NP Refill Request 01/18/2024 1:45 PM CDT Home Care Visit [facility] [address] [place] [phone] Kendal Serna, PT PT - OASIS START OF CARE 01/18/2024 10:30 AM CDT Phone Office Visit [facility] [address] [place] [address] Nikolai Ibarra MD 01/18/2024 Plan of Care Documentation [facility] [address] [place] [phone] 01/18/[address] [facility] [address] [place] [address] Maria R Ho, RN Primary RN Care Management; Hospital F/U (Lace 44) 01/18/2024 Travel 01/12/2024 9:13 PM CDT - 01/17/2024 5:23 PM CDT Hospital Encounter [facility] [address] [place] [address] Emily Guzman MD Litell, DO Chente Honeycutt, MD Dusty Manjarrez, MD Ricky Alston, Helder Hoover MD [facility] Hospitalists Of Opioid dependence, uncomplicated (HC) (Primary Dx); Nasal congestion; Chronic pain syndrome; Diabetic ketoacidosis without coma associated with type 1 diabetes mellitus (HC); 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, macular edema presence unspecified, unspecified laterality, unspecified proliferative retinopathy type (HC); Heel ulcer, right, with unspecified severity (HC) Discharge Disposition: Home Health from Last 3 Months Immunizations Name Administration Dates Next Due AMB Influenza, IIV3 (Age >=3 years)(Flu Clinic Only) 05/17/2013,05/06/2010 COVID-19 VACCINE SPIKEVAX (M ODERNA 50MCG/0.5ML) 12YO+ PFS 04/06/2024 COVID-19 vaccine (DECA NTech 30mcg/0.3mL) 12YO+ BIVALENT PF, MDV 04/28/2022 COVID-19 vaccine (Godigex-Bio NTech 30mcg/0.3mL) PF, MDV 06/23/2021 Hepatitis B (Adult) 08/17/2019,02/06/2014,2013 Influenza A (H1N1), Inactivated 06/19/2009 Influenza A (H1N1), Inactiva audi (Age >=3 Years) 06/19/2009 Influenza, IIV3 (Age >=3 years) 05/06/20 14,05/17/2013,03/20/2012,2010,05/06/2010,03/19/2009,05/06/2008,1 ,05/11/2006,04/29/2005, 004,06/13/2003 Influenza, IIV4 04/28/2022,,05/18/2019,2017,04/06/2017 Influenza, IIV4 (=>6mos) MDV 03/18/2020,04/06/20 17 Influenza, Inactivated IIV3 (Age 65+ Years) Preserv Free 04/06/2024 Pneumococcal Poly,23-Valent (Pneumovax) 08/17/2016,07/04/2005,07/04/1995 Pneumococcal conj 13-Valent [...] Sign Reading Time Taken Comments Blood Pressure 106/69 04/06/2024 11:30 AM CDT Pulse 77 04/06/2024 11:30 AM CDT Temperature 36.6 ??C (97.9 ??F) 03/14/2024 1 0:45 AM CDT Respiratory Rate 18 03/14/2024 10:4 5 AM CDT Oxygen Saturation 94% 04/06/2024 11: 30 AM CDT Inhaled Oxygen Concentration - - Weight 102.3 kg (225 lb 9.6 oz) 01/16/2024 6:48 AM CDT Height 152.4 cm (5') 01/12/2024 9:27 PM CDT Body Mass Index 44.06 01/12/2024 9:27 PM CDT Plan of Treatment Upcoming Encounters Date Type Department Care Team (Late st Contact Info) Description 04/12/2024 9:00 AM CDT Appointment [facility] [address] [place] [address] Geneva Sanchez, LOS 04/13/2024 11:00 AM CDT Office Visit [facility] [address] [place] [address] Barbara Valentin DO [address] [place] [address] 05/04/2024 3:00 PM CDT Office Visit [facility] [address] [place] [address] Barbara Valentin, DO [address] [place] [address] 05/04/2024 3:30 PM CDT Phone Office Visit [facility] [address] [place] [address] Nikolai Ibarra MD [address] [place] [address] Health Maintenance Due Date Last Done Comments [...] 03/18/2020, Additional history exists Fecal testing sDNA-FIT ([place] guard) for age 45-75 11/10/2024 11/10/2021 Pneumococcal series for age 6-64 (3 of 3 - PPSV23 or PCV20) 2026 08/17/2016, 08/14/2014, 07/04/2005, Additional history exists Lipids for age 45-75 04/28/2027 04/28/2022, 08/17/2019, 08/31/2018, Additional history exists Tdap Completed 08/25/2010 HIV for age 15-65 Completed 07/21/2015 Hepatitis C screening for ag e 18-79 Completed 02/16/2018 COVID-19 vaccine series Completed 04/06/20 24, 04/28/2022, 06/23/2021, Additional history exists Medical Devices Implanted Type Area Adult Protective Caseworker Device Identifier Shelf Expiration Date Model / Serial / Lot [id number] 2x12mm [[id number]] Implanted:Qty: 1 on 08/08/2008 at [facility] Explanted:at [facility] (Quantity not on file) [facility] [employer] [id number]# / [id number] / Stem Compnt Primary 8mm Mini - [id number] Implanted:Qty: 1 on 03/17/2011 at [facility] Right: Shoulder BIOMET [id number]# / / [id number] Head Hum Bio-Mod [id number] - [id number] Implanted:Qty: 1 on 03/17/2011 at [facility] Right: Shoulder BIOMET [id number]# / / [id number] Base Glenoid Hybrid 4mm Sm - [id number] Implanted:Qty: 1 on 03/17/2011 at [facility] Right: Shoulder BIOMET [id number]# / / [id number] Cmnt 1/2 [employer] - [id number] Implanted:Qty: 1 on 03/17/2011 at [facility] Right: Shoulder [employer] 6188-- 0# / / [id number] Post Glenoid Hybrid Regenerex - [id number] Implanted:Qty: 1 on 03/17/2011 at [facility] Right: Shoulder BIOMET [id number] # / / [id number] Head Humeral 44x15 Co Cr Biomodular - [id number] Implanted:Qty: 1 on 07/12/2012 at [facility] Left: Shoulder BIOMET [id number]# / / [id number] Shoulder Stem Implanted:Qty: 1 on 07/12/2012 at [facility] Left: Shoulder [id number] / / [id number] Description:SHOULDER STEM Cmnt Bone 1/2 [employer] - [id number] Implanted:Qty: 1 on 07/12/2012 at [facility] Left: Shoulder [employer] 6188-- 0# / / [id number] Post Glenoid Hybrid Regenerex - [id number] Implanted:Qty: 1 on 07/12/2012 at [facility] Left: Shoulder BIOMET [id number] # / / [id number] Base Glenoid Hybrid 4mm Sm - [id number] Implanted:Qty: 1 on 07/12/2012 at [facility] Left: Shoulder BIOMET [id number]# / / [id number] Procedures Procedure Name Priority Date/Time Associated Diagnosis [...] HIV 1/2 Add On 07/21/2015 9:40 AM BALL MACHINE OPERATOR JACK MACHINE OPERATOR THIN PREP PAP SCREEN IMAGED Routine 08/17/2012 4:02 PM BALL MACHINE OPERATOR Screening for malignant neoplasm of [...] - 100 mg/dL 01/17/2024 11:[address] [facility] Blood BLOOD SPECIMEN / Unknown 01/17/2024 11:27 AM CDT 01/17/2024 11:35 AM CDT Helder García MD CHEMISTRY [facility] [employer] [facility] [address] [place] [address], * (ABNORMAL) CREATININE (01/17/2024 8:20 AM CDT) Only the most recent of3 resultswithin the time period is included. eGFR 47(L) >90 mL/min/1.7 3m2 01/17/2024 9:[address] [facility] Comment:As of 2021, eG FR is calculated by the CKD-EPI creatinine equation without race adjustment. ??eGFR can be influenced by muscle mass, exercise, and diet. ??The reported eGFR is an estimation only and is only applicable if the renal function is stable. CREATININE 1.28(H) 0.50 - 0.90 mg/dL 01/17/2024 9:[address] [facility] Blood BLOOD SPECIMEN / Unknown Non-Lab Venipuncture / Unknown 01/17/2024 8:20 AM CDT 01/17/2024 8:26 AM CDT Helder García MD CHEMISTRY Performing Organization Address City/[facility]/ZIP Co de Phone Number [facility] [address] [place] [address], * PHOSPHORUS (01/17/2024 8:20 AM CDT) Only the most recent of5 resultswithin the time period is included. PHOSPHORUS 2.6 2.5 - 4.5 mg/dL 01/17/2024 9:06 AM CDT [facility] Blood BLOOD SPECIMEN / Unknown Non-Lab Venipuncture / Unknown 01/17/2024 8:20 AM CDT 01/17/2024 8:26 AM CDT Sarah Betancourt RN CHEMISTRY Performing Organization Address [facility] Co de Phone Number [facility] [address] [place] [address], * (ABNORMAL) BASIC METABOLIC PANEL (01/17/2024 8:20 AM CDT) Only the most recent of5 resultswithin the time period is included. SODIUM 139 136 - 145 mmol/L 01/17/2024 12:35 PM CDT [facility] POTASSIUM 3.9 3.5 - 5.1 mmol/L 01/17/2024 12:35 PM CDT [facility] CHLORIDE 103 98 - 107 mmol/L 01/17/2024 12:35 PM CDT [facility] CO2,TOTAL 24 22 - 29 mmol/L 01/17/2024 12:35 PM CDT [facility] ANION GAP 12 5 - 18 01/17/2024 12:35 PM CDT [facility] GLUCOSE 162(H) 70 - 99 mg/dL 01/17/2024 12:35 PM CDT [facility] CALCIUM 8.7(L) 8.8 - 10.2 mg/dL 01/17/2024 12:35 PM CDT [facility] BUN 17 8 - 23 mg/dL 01/17/2024 12:35 PM CDT [facility] CREATININE 1.31(H) 0.50 - 0.90 mg/dL 01/17/2024 12:35 PM CDT [facility] BUN/CREAT RATIO 13 10 - 20 12:35 PM CDT [facility] eGFR 46(L) >90 mL/min/1.7 3m2 01/17/2024 12:35 PM CDT [facility] Comment: As of 2021, eGFR [...] 8:26 AM CDT Helder García MD CHEMISTRY [facility] [address] [place] [address], * CLOSTRIDIOIDES DIFFICILE TOXIN PCR (01/16/2024 12:27 PM CDT) CLOSTRIDIUM DIFFICILE PCR Negative 01/16/2024 2:18 PM CDT [facility] PRESUMPTIVE NAP1 STRAIN Negative 01/16/2024 2:18 PM CDT [facility] Stool STOOL SPECIMEN / Unknown Non-Blood / Unknown 01/16/2024 12:27 PM CDT 01/16/2024 12:51 PM CDT Narrative [facility] - 01/16/2024 2:18 PM CDT The NAP1 (027 or BI) strain is a hypervirulent strain. Detection may be useful for epidemiological purposes. Helder García MD MICROBIOLOGY Performing Organization Address [facility] Co de Phone Number [facility] [address] [place] [address], * SCAN CORRESP-EKG RESULTS (01/16/2024 9:07 AM CDT) Narrative 01/16/2024 9:07 AM CDT Ordered by an unspecified provider. Other Clinical Staff OTHER * (ABNORMAL) HEMOGLOBIN (01/16/2024 6:30 AM CDT) Only the most recent of2 resultswithin the time period is included. Pathologist [facility] HEMOGLOBIN 8.9(L) 12.0 - 16.0 g/dL 01/16/2024 7:13 AM CDT [facility] MCV 91 80 - 100 fL 01/16/2024 7:13 AM CDT [facility] Blood BLOOD SPECIMEN / Unknown Venipuncture / Unknown 01/16/2024 6:30 AM CDT 01/16/2024 6:58 AM CDT Fabrizio Montano MD HEMATOLOGY Performing Organization Address [facility] [facility] Co de Phone Number [facility] [address] [place] [address], * VANCOMYCIN (01/16/2024 6:30 AM CDT) Only the most recent of3 resultswithin the time period is included. Pathologist [facility] VANCOMYCIN 13.0 ug/mL 01/16/2024 7:42 AM CDT [facility] Comment:No Reference Range D efined. DATE OF LAST DOSE,RANDOM Not Given 01/16/2024 7:42 AM CDT [facility] TIME OF LAST DOSE,RANDOM Not Given 01/16/2024 7:42 AM CDT [facility] Blood BLOOD SPECIMEN / Unknown Venipuncture / Unknown 01/16/2024 6:30 AM CDT 01/16/2024 6:58 AM CDT Barbara Holcomb NP CHEMISTRY Performing Organization Address City/[facility]/ZIP Co de Phone Number [facility] [address] [address], [place] * (ABNORMAL) PLATELET COUNT (01/15/2024 6:02 AM CDT) PLATELET COUNT 166 140 - 440 thou/cu mm 01/15/2024 6:44 AM CDT [facility] MPV 11.2(H) 6.5 - 11.0 fL 01/15/2024 6:44 AM CDT [facility] Blood BLOOD SPECIMEN / Unknown Venipuncture / Unknown 01/15/2024 6:02 AM CDT 01/15/2024 6:26 AM CDT Fabrizio Montano MD HEMATOLOGY Performing Organization Address [facility] Co de Phone Number [facility] [address] [address], [place] * WHITE BLOOD COUNT (01/15/2024 6:02 AM CDT) WHITE BLOOD COUNT 4.9 4.5 - 11.0 thou/cu mm 01/15/2024 6:44 AM CDT [facility] NRBC 0.0 % 01/15/2024 6:44 AM CDT [facility] ABS NRBC 0.0 thou /cu mm 01/15/2024 6:44 AM CDT [facility] Blood BLOOD SPECIMEN / Unknown Venipuncture / Unknown 01/15/2024 6:02 AM CDT 01/15/2024 6:26 AM CDT Fabrizio Montano MD HEMATOLOGY Performing Organization Address City/[facility]/ZIP Co de Phone Number [facility] [address] [address], [place] * Sodium AM (01/15/2024 6:02 AM CDT) SODIUM 142 136 - 145 mmol/L 01/15/2024 7:13 AM CDT [facility] Blood BLOOD SPECIMEN / Unknown Venipuncture / Unknown 01/15/2024 6:02 AM CDT 01/15/2024 6:27 AM CDT Fabrizio Montano MD CHEMISTRY [facility] [address] [place] [address], [place] * Potassium AM (01/15/2024 6:02 AM CDT) Only the most recent of3 resultswithin the time period is included. POTASSIUM 4.4 3.5 - 5.1 mmol/L 01/15/2024 7:13 AM CDT [facility] Blood BLOOD SPECIMEN / Unknown Venipuncture / Unknown 01/15/2024 6:02 AM CDT 01/15/2024 6:27 AM CDT Fabrizio Montano MD CHEMISTRY Performing Organization Address City/[facility]/ZIP Co de Phone Number [facility] [address] [place] [address], [place] * SCAN-CARDIAC STRIP (01/14/2024 7:07 AM CDT) Scanner OTHER * (ABNORMAL) CBC W PLT NO DIFF (01/14/2024 5:28 AM CDT) WHITE BLOOD COUNT 8.5 4.5 - 11.0 thou/cu mm 01/14/2024 6:33 AM CDT [facility] RED BLOOD COUNT 3.04(L) 4.00 - 5.20 mil/cu mm 01/14/2024 6:33 AM CDT [facility] HEMOGLOBIN 8.9(L) 12.0 - 16.0 g/dL 01/14/2024 6:33 AM CDT [facility] HEMATOCRIT 27.5(L) 33.0 - 51.0 % 01/14/2024 6:33 AM CDT [facility] MCV 91 80 - 100 fL 01/14/2024 6:33 AM CDT [facility] MCH 29.3 26.0 - 34.0 pg 01/14/2024 6:33 AM CDT [facility] MCHC 32.4 32.0 - 36.0 g/dL 01/14/2024 6:33 AM CDT [facility] RDW 14.4 11.5 - 15.5 % 01/14/2024 6:33 AM CDT [facility] PLATELET COUNT 198 140 - 440 thou/cu mm 01/14/2024 6:33 AM CDT [facility] MPV 11.4(H) 6.5 - 11.0 fL 01/14/2024 6:33 AM CDT [facility] NRBC 0.0 % 01/14/2024 6:33 AM CDT [facility] ABS NRBC 0.0 thou /cu mm 01/14/2024 6:33 AM T [facility] Blood BLOOD SPECIMEN / Unknown Non-Lab Venipuncture / Unknown 01/14/2024 5:28 AM CDT 01/14/2024 6:31 AM CDT Barbara Holcomb NP HEMATOLOGY [facility] [address] [place] [address], * (ABNORMAL) [facility]UM IONIZED [facility] DRAW ONLY (01/14/2024 5:28 AM CDT) Only the most recent of3 resultswithin the time period is included. CALCIUM,IONIZE D 1.30(H) 1.15 - 1.27 mmol/L 01/14/2024 6:03 AM CDT [facility] Blood BLOOD SPECIMEN / Unknown Non-Lab Venipuncture / Unknown 01/14/2024 5:28 AM CDT 01/14/2024 5:49 AM CDT Grace Eldridge MD CHEMISTRY [facility] [address] [place] [address], * ECHO TTE COMPLETE W CONTRAST (01/13/2024 3:56 PM CDT) AORTIC VALVE MEAN PG 7 mmHg EJECTION FRACTION 64 % LVEDD 4.1 cm EJECTION FRACTION 60 - 65% Anatomical Region Laterality Modality Ultrasound 01/13/2024 2:53 PM CDT Narrative 01/13/2024 4:39 PM CDT ECHOCARDIOGRAM ALIDA KUHN ? Accession#: ?? [id number] : ?1960 63 years Study Date: ?? [...] documentation: 2 ml diluted Definity, lot #[id number], [facility]# [id number] was administered peripherally to enhance visualization of all left ventricular segments. . This study was interpreted by an [facility] accredited facility. ??Final ?? Procedure Note Travon Blood MD - 01/13/2024 ECHOCARDIOGRAM ALIDA KUHN : 1960 63 years Study Date: 01/13/2024 2:53:14 PM Gender: F BP: 114/44 mmHg Height: 152.00 cm BSA: 1.93 m? ? ? Weight: 98.00 kg Tech: PASQUALE Romero MD: BARBARA HOLCOMB Site: [facility] Reading Location: [facility] Patient Location: Inpatient. Procedure: 2D w/ [...] documentation: 2 ml diluted Definity, lot #[id number], [facility]#[id number] was administered peripherally to enhance visualization of allleft ventricular segments. . This study was interpreted by an [facility] accredited facility. Final Barbara Holcomb ELECTRICAL AND INSTRUMENT MECHANIC ECHO ORD * US ARTERIAL LOWER EXTREMITY [...] 125 mmHg Left Brachial: 111 mmHg Right BRANCH OPERATIONS MANAGER: Noncompressible Right DPA: 115 mmHg (SAMUEL 0.92) Left BRANCH OPERATIONS MANAGER: Noncompressible Left DPA: Noncompressible SAMUEL: 1.0-1.4 - normal 0.9-0.99 - borderline 0.80-0.89 - mild 0.50-0.79 - moderate 0.30-0.49 - severe < 0.30 - critical RIGHT: TRAVEL AGENT PROX: 204 cm/sec; triphasic waveforms TRAVEL AGENT DIST: 138 cm/sec; triphasic waveforms PFA: 97 cm/sec; triphasic waveforms SFA PROX: 140, 111 cm/sec; triphasic waveforms SFA MID: 113, 74 cm/sec; triphasic waveforms SFA DIST: 107, 113 cm/sec; triphasic waveforms POP PROX: 105 cm/sec; triphasic waveforms POP DIST: 89 cm/sec; triphasic waveforms BRANCH OPERATIONS MANAGER: 32 cm/sec; triphasic waveforms KAITLYN: 58 cm/sec; triphasic waveforms DPA: 56 cm/sec; triphasic waveforms LEFT: TRAVEL AGENT PROX: 193 cm/sec; triphasic waveforms TRAVEL AGENT DIST: 152 cm/sec; triphasic waveforms PFA: 98 cm/sec; triphasic waveforms SFA PROX: 119, 109 cm/sec; triphasic waveforms SFA MID: 103, 102 cm/sec; triphasic waveforms SFA DIST: 103, 100 cm/sec; triphasic waveforms POP PROX: 124 cm/sec; triphasic waveforms POP DIST: 85 cm/sec; triphasic waveforms BRANCH OPERATIONS MANAGER: 169 cm/sec; triphasic waveforms KAITLYN: 91 [...] 125 mmHg Left Brachial: 111 mmHg Right BRANCH OPERATIONS MANAGER: Noncompressible Right DPA: 115 mmHg (SAMUEL 0.92) Left BRANCH OPERATIONS MANAGER: Noncompressible Left DPA: Noncompressible SAMUEL: 1.0-1.4 - normal 0.9-0.99 - borderline 0.80-0.89 - mild 0.50-0.79 - moderate 0.30-0.49 - severe < 0.30 - critical RIGHT: TRAVEL AGENT PROX: 204 cm/sec; triphasic waveforms TRAVEL AGENT DIST: 138 cm/sec; triphasic waveforms PFA: 97 cm/sec; triphasic waveforms SFA PROX: 140, 111 cm/sec; triphasic waveforms SFA MID: 113, 74 cm/sec; triphasic waveforms SFA DIST: 107, 113 cm/sec; triphasic waveforms POP PROX: 105 cm/sec; triphasic waveforms POP DIST: 89 cm/sec; triphasic waveforms BRANCH OPERATIONS MANAGER: 32 cm/sec; triphasic waveforms KAITLYN: 58 cm/sec; triphasic waveforms DPA: 56 cm/sec; triphasic waveforms LEFT: TRAVEL AGENT PROX: 193 cm/sec; triphasic waveforms TRAVEL AGENT DIST: 152 cm/sec; triphasic waveforms PFA: 98 cm/sec; triphasic waveforms SFA PROX: 119, 109 cm/sec; triphasic waveforms SFA MID: 103, 102 cm/sec; triphasic waveforms SFA DIST: 103, 100 cm/sec; triphasic waveforms POP PROX: 124 cm/sec; triphasic waveforms POP DIST: 85 cm/sec; triphasic waveforms BRANCH OPERATIONS MANAGER: 169 cm/sec; triphasic waveforms KAITLYN: 91 [...] 01/14/2024 4:57:16 PM (Electronically Signed) Freya Schafer ELECTRICAL AND INSTRUMENT MECHANIC US * US RENAL AND BLADDER COMPLETE [...] 01/14/2024 2:34:58 AM (Electronically Signed) Barbara Holcomb ELECTRICAL AND INSTRUMENT MECHANIC US * XR FOOT 3 VIEWS LEFT [...] tissue wound is not marked. Freya Schafer ELECTRICAL AND INSTRUMENT MECHANIC GENERAL IMAGI NG * (ABNORMAL) AEROBIC BACTERIAL CULTURE, STAIN (01/13/2024 11:49 AM CDT) CULTURE RESULT(A) 01/16/2024 2:44 PM CDT [facility] NTRAL LABORATORY CULTURE 3+ Corynebacterium striatum 01/16/2024 2:44 PM CDT [facility]AL [facility] CULTURE 2+ Mixed oni [...] AM CDT 01/13/2024 12:00 PM CDT Narrative [facility] - 01/16/2024 2:44 PM CDT Mixed oni; No Staphylococcus aureus, beta-Streptococcus, Streptococcus pneumoniae, or Pseudomonas aeruginosa isolated. Freya Schafer NP MICROBIOLOGY Performing Organization Address City/[facility]/ZIP Co de Phone Number [facility] [address] [place] [address], * ANAEROBIC CULTURE (01/13/2024 11:49 AM CDT) CULTURE No anaerobes isolated 01/19/2024 10:01 AM CDT [facility] Other (Other) Non-Blood / Unknown 01/13/2024 11:49 AM CDT 01/13/2024 12:00 PM CDT Freya Schafer NP MICROBIOLOGY [facility] [address] [place] [address], * (ABNORMAL) Electrolytes Panel - DKA (01/13/2024 10:53 AM CDT) Only the most recent of3 resultswithin the time period is included. SODIUM 140 136 - 145 mmol/L 01/13/2024 11:36 AM CDT [facility] POTASSIUM 5.2(H) 3.5 - 5.1 mmol/L 01/13/2024 11:36 AM CDT [facility] CHLORIDE 107 98 - 107 mmol/L 01/13/2024 11:36 AM CDT [facility] CO2,TOTAL 21(L) 22 - 29 mmol/L 01/13/2024 11:36 AM CDT [facility] ANION GAP 12 5 - 18 01/13/2024 11:36 AM CDT [facility] Blood BLOOD SPECIMEN / Unknown Non-Lab Venipuncture / Unknown 01/13/2024 10:53 AM CDT 01/13/2024 11:01 AM CDT Ifeanyi Hernández RN CHEMISTRY Performing Organization Address [facility] de Phone Number [facility] [address] [place] [address], [place] * SCAN-CARDIAC STRIP (01/13/2024 8:00 AM CDT) Scanner OTHER * MAGNESIUM (01/13/2024 4:22 AM CDT) Only the most recent of2 resultswithin the time period is included. MAGNESIUM 1.9 1.6 - 2.4 mg/dL 01/13/2024 5:07 AM CDT [facility] Blood BLOOD SPECIMEN / Unknown Non-Lab Venipuncture / Unknown 01/13/2024 4:22 AM CDT 01/13/2024 4:41 AM CDT Ifeanyi Hernández RN CHEMISTRY Performing Organization Address [facility] de Phone Number [facility] [address] [place] [address], [place] * (ABNORMAL) Serum Glucose - DKA (01/13/2024 1:52 AM CDT) Only the most recent of2 resultswithin the time period is included. GLUCOSE,RANDOM 459(H) 70 - 139 mg/dL 01/13/2024 2:46 AM CDT [facility] Blood BLOOD SPECIMEN / Unknown Non-Lab Venipuncture / Unknown 01/13/2024 1:52 AM CDT 01/13/2024 2:03 AM CDT Emily Guzman MD CHEMISTRY Performing Organization Address City/[facility]/ZIP Co de Phone Number [facility] [address] [place] [address], [place] * (ABNORMAL) TROPONIN T (HS) ONE TIME (01/12/2024 11:39 PM CDT) Pathologist [facility] TROPONIN T HS 45(H) 6-10 ng/L ng/L 01/13/2024 12:22 AM CDT [facility] Blood BLOOD SPECIMEN / Unknown Non-Lab Venipuncture / Unknown 01/12/2024 11:39 PM CDT 01/12/2024 11:45 PM CDT Emily Guzman MD CHEMISTRY Performing Organization Address [facility] Co de Phone Number [facility] [address] [place] [address], [place] * 12 Lead EKG (01/12/2024 10:16 PM CDT) Pathologist [facility] Interpretation Normal sinus rhythm Left axis deviation Abnormal ECG When compared with ECG of 02-Jan-2019 02:01, Nonspecific T wave abnormality now evident in Lateral leads BEYOND NOW Ventricular Rate 78 BPM BEYOND NOW Atrial Rate 78 BPM BEYOND NOW P-R Interval 160 ms BEYOND NOW QRS Duration 82 ms BEYOND NOW QT 400 ms BEYOND NOW QTc 456 ms BEYOND NOW P [place] 72 degrees BEYOND NOW R [place] -31 degrees BEYOND NOW T [place] 69 degrees BEYOND NOW 01/12/2024 10:1 6 PM CDT 01/13/2024 8:20 PM CDT Emily Guzman MD EKG ORD Performing Organization Address City/[facility]/ZIP Co de Phone Number [facility] NOW [place], [place] * MRSA/SA PCR (01/12/2024 10:07 PM CDT) MRSA DNA PCR Negative Negative 01/12/2024 11:[address] [facility] STAPHYLOCOCCUS AUREUS PCR Negative Negative 01/12/2024 11:33 PM CDT [facility] Other SPECIMEN FROM INTERNAL NOSE / Unknown Non-Blood / Unknown 01/12/2024 10:07 PM CDT 01/12/2024 10:13 PM CDT Narrative [facility] - 01/12/2024 11:33 PM CDT Test result does not preclude MRSA or SA nasal colonization. Chaparro Sneed DO MICROBIOLOGY [facility] [address] [place] [address], * (ABNORMAL) Urine Culture (01/12/2024 10:07 PM CDT) CULTURE RESULT(A) 01/16/2024 6:58 AM CDT [facility] CULTURE 10,000-50,000 CFU/mL Proteus mirabilis 01/16/2024 6:58 AM CDT [facility] CULTURE 50,000-100,000 CFU/mL Danita albicans 01/16/2024 6:58 AM CDT [facility] Urine URINE SPECIMEN / Unknown [...] Guzman MD MICROBIOL OGY Performing Organization Address [facility] Co de Phone Number [facility] [address] [place] [address], * Blood Culture (01/12/2024 9:40 PM CDT) Only the most recent of2 resultswithin the time period is included. Pathologist [facility] CULTURE No Growth. 01/16/2024 11:23 PM CDT [facility] Blood BLOOD SPECIMEN / Unknown Venipuncture / Unknown 01/12/2024 9:40 PM CDT 01/12/2024 9:52 PM CDT Narrative [facility] - 01/16/2024 11:23 PM CDT Low volume blood culture received; possible false negative culture. Emily Guzman MD MICROBIOL OGY Performing Organization Address [facility] Co de Phone Number [facility] [address] [place] [address], * (ABNORMAL) TROPONIN T(HS) ACUTE W/2HR REFLEX (01/12/2024 9:37 PM CDT) TROPONIN T HS 47(H) 6-10 ng/L ng/L 01/12/2024 10:16 PM CDT [facility] Blood BLOOD SPECIMEN / Unknown Non-Lab Venipuncture / Unknown 01/12/2024 9:37 PM CDT 01/12/2024 9:46 PM CDT [facility] 01/12/2024 10:16 PM CDT hs-cTnT [...] department patient population. Emily Guzman MD [facility] [address] [place] [address], [place] * (ABNORMAL) CBC WITH AUTO DIFFERENTIAL (01/12/2024 9:37 PM CDT) [facility] WHITE BLOOD COUNT 14.9(H) 4.5 - 11.0 thou/cu mm 01/12/2024 9:54 PM CDT [facility] RED BLOOD COUNT 3.61(L) 4.00 - 5.20 mil/cu mm 01/12/2024 9:54 PM CDT [facility] HEMOGLOBIN 10.5(L) 12.0 - 16.0 g/dL 01/12/2024 9:54 PM CDT [facility] HEMATOCRIT 32.6(L) 33.0 - 51.0 % 01/12/2024 9:54 PM CDT [facility] MCV 90 80 - 100 fL 01/12/2024 9:54 PM CDT [facility] MCH 29.1 26.0 - 34.0 pg 01/12/2024 9:54 PM CDT [facility] MCHC 32.2 32.0 - 36.0 g/dL 01/12/2024 9:54 PM CDT [facility] RDW 13.2 11.5 - 15.5 % 01/12/2024 9:54 PM CDT [facility] PLATELET COUNT 273 140 - 440 thou/cu mm 01/12/2024 9:54 PM CDT [facility] MPV 11.0 6.5 - 11.0 fL 01/12/2024 9:54 PM CDT [facility] NRBC 0.0 % 01/12/2024 9:54 PM CDT [facility] ABS NRBC 0.0 thou /cu mm 01/12/2024 9:54 PM CDT [facility] % NEUT 80.3 % 01/12/2024 9:54 PM CDT [facility] % LYMPH 9.6 % 01/12/2024 9:54 PM CDT [facility] % MONO 9.2 % 01/12/2024 9:54 PM CDT [facility] % EOS 0.1 % 01/12/2024 9:54 PM CDT [facility] % BASO 0.1 % 01/12/2024 9:54 PM CDT [facility] % IMMATURE GRAN (METAS,MYELOS,WA OS) 0.7 % 01/12/2024 9:54 PM CDT [facility] ABSOLUTE NEUTROPHILS 12.0(H) 1.7 - 7.0 thou/cu mm 01/12/2024 9:54 PM CDT [facility] ABSOLUTE LYMPHOCYTES 1.4 0.9 - 2.9 thou/cu mm 01/12/2024 9:54 PM CDT [facility] ABSOLUTE MONOCYTES 1.4(H) <0.9 thou/cu mm 01/12/2024 9:54 PM CDT [facility] ABSOLUTE EOSINOPHILS 0.0 <0.5 thou/cu mm 01/12/2024 9:54 PM CDT [facility] ABSOLUTE BASOPHILS 0.0 <0.3 thou/cu mm 01/12/2024 9:54 PM CDT [facility] ABSOLUTE IMMATURE GRANULOCYTES(MET ,MYELOS,PROS) 0.1 <0.3 thou/cu mm 01/12/2024 9:54 PM CDT [facility] Blood BLOOD SPECIMEN / Unknown Non-Lab Venipuncture / Unknown 01/12/2024 9:37 PM CDT 01/12/2024 9:46 PM CDT Emily Guzman MD HEMATOLOG Y [facility] [address] [place] [address], * (ABNORMAL) BLOOD GAS,VENOUS (01/12/2024 9:37 PM CDT) PH, VENOUS 7.25(L) 7.32 - 7.43 01/12/2024 9:52 PM CDT [facility] PCO2, VENOUS 44 41 - 51 mmHg 01/12/2024 9:52 PM CDT [facility] PO2, VENOUS 48(H) 35 - 40 mmHg 01/12/2024 9:52 PM CDT [facility] HCO3,VENOUS 19(L) 22 - 29 mmol/L 01/12/2024 9:52 PM CDT [facility] BASE EXCESS, VENOUS, POCT -7.7(L) -2.0 - 3.0 01/12/2024 9:52 PM CDT [facility] O2 SATURATION, VENOUS 85(H) 70 - 75 % 01/12/2024 9:52 PM CDT [facility] INSPIRED O2 21 01/12/2024 9:52 PM CDT [facility] Comment:Unit of Measure: Lit ers (L) if <=20; Percent (%) if >20 PATIENT TEMPERATURE 36.9 Degrees C 01/12/2024 9:52 PM CDT [facility] Blood VENOUS BLOOD SPECIMEN / Unknown Non-Lab Venipuncture / Unknown 01/12/2024 9:37 PM CDT 01/12/2024 9:46 PM CDT Emily Guzman MD CHEMISTRY [facility] [address] [place] [address], * Protime - INR (01/12/2024 9:37 PM CDT) INR 1.0 <1.3 01/12/2024 9:56 PM CDT [facility] PROTIME 11.5 10.3 - 12.3 sec 01/12/2024 9:56 PM CDT [facility] Blood BLOOD SPECIMEN / Unknown Non-Lab Venipuncture / Unknown 01/12/2024 9:37 PM CDT 01/12/2024 9:46 PM CDT Narrative [facility] - 01/12/2024 9:56 PM CDT [...] Guzman MD HEMATOLOG Y Performing Organization Address [facility] Co de Phone Number [facility] [address] [place] [address], * (ABNORMAL) HEMOGLOBIN A1C MONITORING (POCT) (01/12/2024 9:37 PM CDT) HEMOGLOBIN A1C MONITORING (POCT) 9.3(H) <=6.4 % 01/14/2024 10:29 AM CDT [facility] Blood BLOOD SPECIMEN / Unknown Non-Lab Venipuncture / Unknown 01/12/2024 9:37 PM CDT 01/12/2024 9:46 PM CDT Narrative [facility] - 01/14/2024 10:29 AM [...] Anemias, Splenectomy ? Barbara Holcomb NP CHEMISTRY [facility] [address] [place] [phone], * (ABNORMAL) Hepatic Function Panel (01/12/2024 9:37 PM CDT) ALBUMIN 3.2(L) 4.0 - 4.9 g/dL 01/12/2024 10:16 PM CDT [facility] PROTEIN,TOTAL 6.4 6.0 - 8.0 g/dL 01/12/2024 10:16 PM CDT [facility] BILIRUBIN,TOTAL 0.2 0.0 - 1.2 mg/dL 01/12/2024 10:16 PM CDT [facility] BILIRUBIN,DIRECT <0.2 0.0 - 0.3 mg/dL 01/12/2024 10:16 PM CDT [facility] BILIRUBIN,INDIRE CT 01/12/2024 10:16 PM CDT [facility] Comment:Unable to calculate, Direct Bili <0.2 ALK PHOSPHATASE 122(H) 35 - 104 IU/L 01/12/2024 10:16 PM CDT [facility] ALT (SGPT) 21 10 - 35 IU/L 01/12/2024 10:16 PM CDT [facility] AST (SGOT) 20 10 - 35 IU/L 01/12/2024 10:16 PM CDT [facility] Blood BLOOD SPECIMEN / Unknown Non-Lab Venipuncture / Unknown 01/12/2024 9:37 PM CDT 01/12/2024 9:46 PM CDT Emily Guzman MD CHEMISTRY [facility] [address] [place] [id number], * SCAN-CARDIAC STRIP (01/12/2024 9:20 PM CDT) [...] health care provider. XR MAMMO BILAT SCREENING [[id number]] CLINICAL HISTORY: ??This is an asymptomatic 61 y.o. patient. INDICATION FOR EXAM: Mammogram Screening. TECHNIQUE: CC & MLO views were obtained. ??This study was evaluated with the assistance of Computer-Aided Detection. COMPARISON FILM: Yes 03/02/18 [place] F[facility]INGS: ??The breasts are extremely dense, which lowers the sensitivity of mammography. There are no dominant masses, suspicious micro calcifications or areas of architectural distortion. Shania Montiel MD MAMMO * LIPID PANEL W REFLEX MEASURED LDL (04/28/2022 1:44 PM CDT) CHOLESTEROL,TOTAL 139 100 - 199 mg/dL 04/30/2022 6:25 PM CDT [facility] TRIGLYCERIDES 141 <150 mg/dL 04/30/2022 6:25 PM CDT [facility] HDL CHOLESTEROL 42 >40 mg/dL 2 6:25 PM CDT [facility] NON-HDL CHOLESTEROL 97 <145 mg/dl 04/30/2022 6:25 PM CDT [facility] CHOL/HDL RATIO 3.31 <4.50 04/30/2022 6:25 PM CDT [facility] LDL CHOLESTEROL 69 <=130 mg/dL 04/30/2022 6:25 PM CDT [facility] VLDL CHOLESTEROL 28 <=30 mg/dL 04/30/2022 6:25 PM CDT [facility] PROVIDER ORDERED STATUS RANDOM 04/30/2022 6:25 PM CDT [facility] Blood BLOOD SPECIMEN / Unknown Venipuncture / Unknown 04/28/2022 1:44 PM CDT 04/28/2022 1:45 PM CDT Shania Montiel MD CHEMISTRY [facility] [address] [place] [address], * FECAL DNA (AKA COLOGUARD) (11/10/2021 1:00 PM CDT) Shania Montiel MD COMMUNICATION ORD * ANTI HCV [[id number]] (02/16/2018 4:20 PM CDT) Pathologist [facility] HEPATITIS C ANTIBODY Non-React alex Non-React alex 02/17/2018 2:48 PM CDT [facility] Comment:Antibodies to HCV no t detected; does not exclude the possibility of exposure to HCV. Blood BLOOD SPECIMEN / Unknown Butterfly / Unknown 02/16/2018 4:20 PM CDT 02/16/2018 4:20 PM CDT Coleman Plata MD SEND OUTS [facility] [address] [place] [address], [place] * HIV 1&2 TODAY (07/21/2015 9:40 AM BALL MACHINE OPERATOR) HIV-1/HIV-2 ANTIBODY Non-Reacti ve Non-Reacti ve 07/21/2015 10:31 AM BALL MACHINE OPERATOR [facility] Blood specimen (specimen) BLOOD SPECIMEN / Unknown Venipuncture / Unknown 07/21/2015 9:40 AM BALL MACHINE OPERATOR 07/21/2015 9:47 AM BALL MACHINE OPERATOR Narrative [facility] - 07/21/2015 10:31 AM BALL MACHINE OPERATOR HIV-1 p24 and HIV-1/HIV-2 Ab not detected Kait Morales DO SEND OUTS [facility] [address] [place] [address], * JACK MACHINE OPERATOR THIN PREP PAP SCREEN IMAGED (08/17/2012 4:02 PM BALL MACHINE OPERATOR) CYTOLOGY CYTOPATHOLOGY REPORT [facility] Status: Final Status ?[id number] CLINICAL INFORMATION Last Date of LMP ? :07/03/2012 Last Pap Date ?:02/01/2011 Last Pap Result ?:NIL ABN [place]/Bx Past 5 YRS :None Hormone Usage ?:BCP/OCP/Patch/R ing Menstrual Status ? :Regular Periods [place]/Bx done today ? :No Additional Information :None [...] COLLECTED:08/17/12 ? ACCESSIONED: ??08/18/12 ?? SIGNED: ??08/21/12 [facility] P[facility] [place] CODE NIL [facility] Tissue specimen (specimen) (Cervical/Vagina l) 08/17/2012 4:02 PM BALL MACHINE OPERATOR 08/17/2012 4:00 PM BALL MACHINE OPERATOR Coleman Plata MD PATHOLOGY/CYTOLOGY [facility] INTERNAL ZIP [address] [place], [place] [id number] from Last 3 Months or Most Recently [...] Urine earlier this year (per report from [facility], not available in CareEverywhere), 04/19/18 L [...] 8:01 PM 07/15/2012 6:55 PM Care Teams Block Trader Relationship Specialty Start Date End Date Barbara [place] [address] PCP - General Family Practice 11/15/22 Julio Ibrahim MD [address] [place] [address] Surgery - Orthopedics 02/01/11 Chuy Doss MD [address] [place] [address] Surgery - Vascular 02/01/11 Markel Strong MD [address] [place] [address] Provider Family Practice 08/08/20 Nikolai Ibarra MD [address] [facility] [address] [place] [address] Endocrinology 09/07/22 [facility] [address] [place] [address] 04/07/24 Suad Ng/ Med[employer] CM Forex Trader 07/14/17 [facility] Home Health Nurse 07/01/17 [facility] SOAKING PIT OPERATOR Services Home Health Aide 07/14/17 [facility] Conservation Coordinator/ Ally Morillom [address] [place] [address] Forex Trader 07/07/17
--- OUTSIDE RECORDS SUMMARY | 2024-04-11 12:01 | XMS_ITS | Clinical Summary ---
Author Organization [facility] [place] [place] Address [address] [facility] [place] [address] Phone Care Team Providers Care Boom Stick Man Name Role Phone Barbara Valentin DO Primary Care Provider [phone] Allergies Active Allergy Reactions Criticality Noted Date [...] One Pack) 3 MG/DOSE powder Inhale 1 [place] into affected nostril(s) each time if needed [...] Team Description 02/01/2024 Telephone [facility] [place] [address] [facility] [address] [place] [phone] Gabriel Hicks MD 01/23/2024 Documentation Only [facility] [place] [address] [facility] [address] [place] [phone] Ronnell Kirby 01/23/2024 Office Communication [facility] [place] [address] [facility] [address] [place] [phone] Ronnell Kirby from Last 3 Months Immunizations [...] LAB BLOOD ORDERAB LES Performing Organization Address City/[facility]/ZIP Co de Phone Number [facility] [...] BESSY from Last 3 Months Care Teams Boom Stick Man Relationship Specialty Start Date End Date Barbara Valentin DO [address] [place] [address] PCP - General Family Medicine 09/22/23
--- OUTSIDE RECORDS SUMMARY | 2024-04-11 12:01 | XMS_ITS | Encounter Summary ---
Author Organization [facility] [place] Address [address] [place] [address] Care Team Providers Care Housecleaner Floor Name Role Phone Barbara Valentin DO Primary Care Provider [phone] Encounter Details Date Type Department Care Team (Late st Contact Info) Description 01/23/2024 Documentation Only [facility] [place] [address] [place] [address] Ronnell Kirby [address] [place] [address] Social History Tobacco Use Types [...] LES Performing Organization Address [facility]/ZIP Co de Phone Number [facility] * (ABNORMAL) Creatine (01/17/2024) Creatine, Serum 1.28(H) [facility] GFR Calculated 47(L) [facility] Blood (Blood, Venous) 01/17/2024 Historical Provider MD LAB BLOOD ORDERAB LES Performing Organization Address [facility]/State/ZIP Co de Phone Number [facility] * (ABNORMAL) Creatine (01/16/2024) Creatine, Serum 1.28(H) [facility] GFR Calculated 47(L) [facility] Blood (Blood, Venous) 01/16/2024 Historical Provider MD LAB BLOOD ORDERAB LES Performing Organization Address [facility] Co de Phone Number [facility] * (ABNORMAL) Creatine (01/15/2024) Creatine, Serum 1.71(H) [facility] GFR Calculated 34(L) [facility] Blood (Blood, Venous) 01/15/2024 Historical Provider MD LAB BLOOD ORDERAB LES Performing Organization Address [facility] Co de Phone Number [facility] * (ABNORMAL) Hemoglobin (01/15/2024) Hemoglobin 8.4(L) g/dL [facility] MCV 91.0 [facility] Blood (Blood, Venous) 01/15/2024 Historical Provider MD LAB BLOOD ORDERAB LES Performing Organization Address [facility] Co de Phone Number [facility] [...] LES Performing Organization Address [facility] Co de Phone Number [facility] [...] LES Performing Organization Address [facility] Co de Phone Number [facility] [...] LES Performing Organization Address [facility] de Phone Number [facility] * (ABNORMAL) [...] LES Performing Organization Address [facility] Co de Phone Number [facility] [...] on filedocumented in this encounter Care Teams Housecleaner Floor Relationship Specialty Start Date End Date Barbara Valentin DO [address] [place] [address] PCP - General Family Medicine 09/22/23 documented as of this encounter
--- OUTSIDE RECORDS SUMMARY | 2024-04-11 12:01 | XMS_ITS | Encounter Summary ---
Author Organization [facility] [place] Address [address] [place] [address] Care Team Providers Care Pari Mutuel Ticket Cashier Name Role Phone Barbara Valentin DO Primary Care Provider [phone] Encounter Details Date Type Department Care Team (Late st Contact Info) Description 09/22/2023 Documentation Only [facility] [place] [address] [facility] [address] [place] [address] No, Pcp Social History Tobacco [...] on filedocumented in this encounter Care Teams Pari Mutuel Ticket Cashier Relationship Specialty Start Date End Date Barbara Valentin DO [address] Calderon [facility] [address] PCP - General Family Medicine 09/22/23 documented as of this encounter
--- OUTSIDE RECORDS SUMMARY | 2024-04-11 12:01 | XMS_ITS | Encounter Summary ---
Author Organization [facility] [place] Address [address] [place] [address] Care Team Providers Care Make Up Worker Name Role Phone Barbara Valentin DO Primary Care Provider [phone] Encounter Details Date Type Department Care Team (Late st Contact Info) Description 02/01/2024 Telephone [facility] [place] [address] [place] [address] Gabriel Hicks MD [address] [place] [address] Social History Tobacco Use Types [...] on filedocumented in this encounter Care Teams Make Up Worker Relationship Specialty Start Date End Date Barbara Valentin DO [address] [place] [address] PCP - General Family Medicine 09/22/23 documented as of this encounter
--- OUTSIDE RECORDS SUMMARY | 2024-04-11 12:01 | XMS_ITS | Encounter Summary ---
Author Organization [facility] [place] Address [address] [place] [address] Care Team Providers Care Steward/Stewardess Second Name Role Phone Barbara Valentin DO Primary Care Provider [phone] Encounter Details Date Type Department Care Team (Late st Contact Info) Description 01/23/2024 Office Communication [facility] [place] [address] [place] [address] Ronnell Kirby [address] [place] [address] Social History Tobacco Use Types [...] on filedocumented in this encounter Care Teams Steward/Stewardess Second Relationship Specialty Start Date End Date Barbara Valentin DO [address] [facility] [place] [address] PCP - General Family Medicine 09/22/23 documented as of this encounter
== END 2024-03-28 00:21 | disposition home or self-care (01) ==
LOC: AMB 04-11 11:59
PROVIDERS: PCP Family Medicine; Visit Provider Family Medicine
DX: R53.1 Weakness (principal)
CPT/HCPCS: A0998

== ENCOUNTER 2024-03-29 15:18 | Outpatient (CLI) | payer OTHER, SELFPAY ==
--- OUTSIDE RECORDS SUMMARY | 2024-03-31 04:45 | XMS_ITS | Clinical Summary ---
Author Organization [facility] [place] Address [address] [place] [address] Phone Care Team Providers Care Cloth Wire Weaver Name Role Phone Barbara Valentin DO Primary Care Provider [phone] Allergies Active Allergy Reactions Criticality Noted Date [...] One Pack) 3 MG/DOSE powder Inhale 1 [place] into affected nostril(s) each time if [...] Team Description 02/01/2024 Telephone [facility] [address] [facility] [address] [place] [phone] Gabriel Hicks MD 01/23/2024 Documentation Only [facility] [address] [facility] [address] [place] [phone] Ronnell Kirby 01/23/2024 Office Communication [facility] [address] [facility] [address] [place] [phone] Ronnell Kirby from Last 3 Months Immunizations [...] BESSY from Last 3 Months Care Teams Cloth Wire Weaver Relationship Specialty Start Date End Date Barbara Valentin DO [address] [place] [address] PCP - General Family Medicine 09/22/23
--- OUTSIDE RECORDS SUMMARY | 2024-03-31 04:45 | XMS_ITS | Encounter Summary ---
Author Organization [facility] [place] Address [address] [place] [address] Care Team Providers Care Continuous Mining Machine Operator Name Role Phone Barbara Valentin DO Primary Care Provider [phone] Encounter Details Date Type Department Care Team (Late st Contact Info) Description 01/23/2024 Documentation Only [facility] [place] [address] [place] [address] Ronnell Kirby [address] [place] [address] Social History Tobacco Use Types [...] LAB BLOOD ORDERAB LES Performing Organization Address [facility]/ZIP Co de Phone Number [facility] * (ABNORMAL) Creatine (01/17/2024) Creatine, Serum 1.28(H) [facility] GFR Calculated 47(L) [facility] Blood (Blood, Venous) 01/17/2024 Historical Provider MD LAB BLOOD ORDERAB LES Performing Organization Address [facility]/State/ZIP Co de Phone Number [facility] * (ABNORMAL) Creatine (01/16/2024) Creatine, Serum 1.28(H) [facility] GFR Calculated 47(L) [facility] Blood (Blood, Venous) 01/16/2024 Historical Provider MD LAB BLOOD ORDERAB LES Performing Organization Address [facility] Co de Phone Number [facility] * (ABNORMAL) Creatine (01/15/2024) Creatine, Serum 1.71(H) [facility] GFR Calculated 34(L) [facility] Blood (Blood, Venous) 01/15/2024 Historical Provider MD LAB BLOOD ORDERAB LES Performing Organization Address [facility] Co de Phone Number [facility] * (ABNORMAL) Hemoglobin (01/15/2024) Hemoglobin 8.4(L) g/dL [facility] MCV 91.0 [facility] Blood (Blood, Venous) 01/15/2024 Historical Provider MD LAB BLOOD ORDERAB LES Performing Organization Address [facility] Co de Phone Number [facility] * (ABNORMAL) Basic Metabolic Panel (BMP) (01/14/2024) Sodium 144 mEq/L [facility] Potassium 4.4 mEq/L [facility] Chloride 112(H) [facility] Carbon Dioxide 23 mmol/L [facility] Calcium 8.4(L) mg/dL [facility] BUN 57(H) mg/dL [facility] Creatinine 2.61(H) mg/dL [facility] Glucose 179(H) mg/dL [facility] eGFR 20(L) [facility] Anion Gap 9 [facility] 01/14/2024 Historical Provider MD LAB BLOOD ORDERAB LES Performing Organization Address [facility] Co de Phone Number [facility] * (ABNORMAL) CBC (01/14/2024) WBC 8.5 K/uL [facility] Red Blood Cell Count 3.04(L) [facility] Hemoglobin 8.9(L) g/dL [facility] Hematocrit 27.5(L) % [facility] MCV 91 [facility] MCH 29.3 [facility] MCHC 32.4 [facility] RDW 14.4 [facility] Platelet Count 198 [facility] MPV 11.4(H) [facility] Blood (Blood, Venous) 01/14/2024 Historical Provider MD LAB BLOOD ORDERAB LES Performing Organization Address [facility] Co de Phone Number [facility] * (ABNORMAL) Basic Metabolic Panel (BMP) (01/13/2024) Sodium 143 mEq/L [facility] Potassium 4.6 mEq/L [facility] Chloride 111(H) [facility] Carbon Dioxide 21(L) mmol/L [facility] Calcium 8.0(L) mg/dL [facility] BUN 65(H) mg/dL [facility] Creatinine 3.10(H) mg/dL [facility] Glucose 143(H) mg/dL [facility] eGFR 16(L) [facility] Anion Gap 11 [facility] 01/13/2024 Historical Provider MD LAB BLOOD ORDERAB LES Performing Organization Address [facility] de Phone Number [facility] * [...] LAB BLOOD ORDERAB LES Performing Organization Address [facility] Co de Phone Number [facility] * [...] on filedocumented in this encounter Care Teams Continuous Mining Machine Operator Relationship Specialty Start Date End Date Barbara Valentin DO [address] [place] [address] PCP - General Family Medicine 09/22/23 documented as of this encounter
--- OUTSIDE RECORDS SUMMARY | 2024-03-31 04:45 | XMS_ITS | Encounter Summary ---
Author Organization [facility] [place] Address [address] [place] [address] Care Team Providers Care Yard Motor Operator Name Role Phone Barbara Valentin DO Primary Care Provider [phone] Encounter Details Date Type Department Care Team (Late st Contact Info) Description 01/23/2024 Office Communication [facility] [place] [address] [place] [address] Ronnell Kirby [address] [place] [address] Social History Tobacco Use Types [...] on filedocumented in this encounter Care Teams Yard Motor Operator Relationship Specialty Start Date End Date Barbara Valentin DO Roxy Calderon [facility] [place] [address] PCP - General Family Medicine 09/22/23 documented as of this encounter
--- OUTSIDE RECORDS SUMMARY | 2024-03-31 04:45 | XMS_ITS | Encounter Summary ---
Author Organization [facility] Address [address] [place] [address] Care Team Providers Care Yarn Cleaner Name Role Phone Barbara Valentin DO Primary Care Provider [phone] Encounter Details Date Type Department Care Team (Late st Contact Info) Description 02/01/2024 Telephone [facility] [place] [address] [place] [address] Gabriel Hicks MD [address] [place] [address] Social History Tobacco Use Types [...] on filedocumented in this encounter Care Teams Yarn Cleaner Relationship Specialty Start Date End Date Barbara Valentin DO [address] [place] [address] PCP - General Family Medicine 09/22/23 documented as of this encounter
--- OUTSIDE RECORDS SUMMARY | 2024-03-31 04:46 | XMS_ITS | Clinical Summary ---
Author Organization [facility] Address [place], [place] [address] Care Team Providers Care Serology Teacher Name Role Phone Julio Ibrhaim MD Unavailable Chuy Doss MD Unavailable Markel Strong MD Unavailable Nikolai Ibarra MD Unavailable [phone] Barbara Valentin Patricia DO Primary Care Provider [phone] Allergies Active Allergy Reactions Criticality Noted Date [...] mellitus at risk of hypoglycemia Inhale 1 Van into affected nostril(s) each time if needed for Severe Hypoglycemia. Roll on side and call 911 after administration. 2 Each 12/25/19 22 Active fluticasone (50 mcg per actuation) nasal solution (FLONASE)Indicati ons:Nasal congestion Inhale 1 Van into affected nostril(s) once daily. Inhale 1 Van in the nostril(s) once daily. 16 g [...] 2 04/20/20 Active continuous glucose monitor READER (MashMe.TVStyle Elli 2 [place])Indication s:Type 1 diabetes mellitus with other specified complication (HC) To be used to read blood sugars per congressional assistant's directions. 1 Each 05/19/20 Active blood-glucose meterIndications: [...] be used to read blood sugars per congressional assistant's directions. 6 Each 3 09/06/19 24 Active [...] Chronic, continuous use of opioids Inhale 1 Van into affected nostril(s) each time if needed [...] agreement signed - 10/07/23 10/07/2023 Overview (10/07/2023): [facility] Noemí Dennis .................... 10/07/2023 4:39 [...] Type Department Care Team Description 03/27/2024 Telephone [facility] [address] [place] [address] Barbara Valentin, DO Questions 03/16/2024 Refill [facility] [address] [place] [address] Toshia Hooks NP Refill Request 03/14/2024 10:30 AM CDT Home Care Visit [facility] [address] [place] [address] Geneva Sanchez RN SN - OASIS DISCHARGE 03/12/2024 Refill [facility] [address] [place] [address] Barbara Valentin, Refill Request (Pregabalin, Fluoxetine, Duloxetine) 03/06/2024 10:00 AM CDT Home Care Visit [facility] [address] [place] [address] Geneva Sanchez, RN SN - HOME VISIT 03/06/2024 9:15 AM CDT Home Care Visit [facility] [address] [place] [address] Alex Contreras CANS VACUUM TESTER - HOME VISIT 03/03/2024 Home Care Visit [facility] [address] [place] [address] Nitza Riojas LISW CARE COORDINATION 02/28/2024 2:00 PM CDT Home Care Visit [facility] [address] [place] [phone] Shania Elaine, RN SN - HOME VISIT 02/28/2024 10:45 AM CDT Home Care Visit [facility] [address] [place] [phone] Fabiola Mathis CANS VACUUM TESTER - HOME VISIT 02/25/2024 Home Care Visit [facility] [address] [place] [phone] Nitza Riojas LISW CARE COORDINATION 02/22/2024 3:00 PM CDT Home Care Visit [facility] [address] [place] [phone] Tirni Hitchcock RN SN - HOME VISIT 02/22/2024 Home Care Visit [address] [phone] Dar Phillips, OT OT - DISCIPLINE DISCHARGE 02/21/2024 9:45 AM CDT Home Care Visit [place] [address] [place] [phone] Alex Contreras CANS VACUUM TESTER - HOME VISIT 02/20/2024 Home Care Visit [address] [phone] Nitza Riojas LISW PETROLEUM BLENDING PLANT OPERATOR - INITIAL ASSESSMENT 02/16/2024 Refill [facility] [address] [place] [address] Toshia Hooks NP Refill Request (oxyCODONE (ROXICODONE) 5 mg immediate release tablet ) 02/15/2024 3:45 PM CDT Home Care Visit [facility] [address] [place] [phone] Coleman Greene, PT PT - DISCIPLINE DISCHARGE 02/15/2024 11:00 AM CDT Home Care Visit [facility] [address] [place] [phone] Geneva Sanchez, LOS SN - HOME VISIT 02/14/2024 12:00 PM CDT Home Care Visit [facility] [address] [place] [address] Joi Moreno, VARELA OT - HOME VISIT 02/14/2024 8:15 AM CDT Home Care Visit [facility] [address] [place] [address] Fabiola Mathis CANS VACUUM TESTER - HOME VISIT 02/10/2024 3:30 PM CDT Home Care Visit [facility] [address] [place] [address] Joi Moreno VARELA OT - HOME VISIT 02/10/2024 Home Care Visit [facility] [address] [place] [address] Nitza Riojas LISW PETROLEUM BLENDING PLANT OPERATOR - CASE COMMUNICATION 02/09/2024 Refill [facility] [address] [place] [address] Barbara Valentin DO Refill Request (Duloxetine) 02/08/2024 3:00 PM CDT Home Care Visit [facility] [address] [place] [address] Veda Resendiz RN SN - WOUND/OSTOMY CHART CONSULT 02/08/2024 9:00 AM CDT Home Care Visit [facility] [address] [place] [address] Geneva Sanchez, LOS SN - HOME VISIT 02/08/2024 Telephone [facility] [address] [place] [address] Barbara Valentin DO Pharmacist Medication Management (MEDICATION CHANGE) 02/08/2024 Telephone [facility] [address] [address] Geneva Sanchez, clinical nursing manager List Update 02/07/2024 4:00 PM CDT Home Care Visit [facility] [address] [place] [phone] Joi Moreno VARELA OT - HOME VISIT 02/07/2024 9:30 AM CDT Home Care Visit [facility] [address] [place] [address] Kendal Serna, PT PT - HOME VISIT 02/07/2024 Telephone [facility] [address] [place] [address] Shaqra, Barbara Patricia, DO Refill Request (Insulin lispro pens) 02/04/2024 Refill [facility] [address] [place] [address] Shaqra, Barbara Patricia, DO Refill Request (Insulin Lispro) 02/03/2024 9:00 AM CDT Home Care Visit [facility] [address] [place] [address] Joi Moreno VARELA OT - HOME VISIT 02/02/2024 11:00 AM CDT Home Care Visit [facility] [address] [place] [address] Kendal Serna, PT PT - HOME VISIT 02/01/2024 4:00 PM CDT Home Care Visit [facility] [address] [place] [address] Joi Moreno VARELA OT - HOME VISIT 01/31/2024 9:30 AM CDT Home Care Visit [facility] [address] [place] [address] Fabiola Mathis CANS VACUUM TESTER - HOME VISIT 01/31/2024 Home Care Visit [facility] [address] [place] [address] Oumou Burns, RN CARE COORDINATION 01/31/2024 Home Care Visit [facility] [address] [place] [address] Oumou Burns, RN CARE COORDINATION 01/30/2024 10:45 AM CDT Home Care Visit [facility] [address] [place] [address] Kendal Serna, PT PT - HOME VISIT 01/30/2024 9:00 AM CDT Home Care Visit [facility] [address] [place] [phone] Geneva Sanchez, LOS SN - INITIAL ASSESSMENT 01/25/2024 1:30 PM CDT Home Care Visit [facility] [address] [place] [phone] Coleman Greene, PT PT - HOME VISIT 01/25/2024 Travel 01/24/2024 1:00 PM CDT Home Care Visit [facility] [address] [place] [phone] aDr Phillips, OT OT - INITIAL ASSESSMENT 01/24/2024 9:30 AM CDT Home Care Visit [facility] [address] [place] [phone] Fabiola Mathis CANS VACUUM TESTER - HOME VISIT 01/24/2024 Home Care Visit [facility] [address] [place] [phone] Narcisa Atkinson, RN CARE COORDINATION 01/23/2024 Home Care Visit [facility] [address] [place] [phone] Narcisa Atkinson, RN CARE COORDINATION 01/20/2024 Refill [facility] [address] [place] [address] Toshia Hooks NP Refill Request 01/18/2024 1:45 PM CDT Home Care Visit [facility] [address] [place] [phone] Kendal Serna, PT PT - OASIS START OF CARE 01/18/2024 10:30 AM CDT Phone Office Visit [facility] [address] [place] [address] Nikolai Ibarra MD 01/18/2024 Plan of Care Documentation [facility] [address] [place] [address] 01/18/2024 Patient Outreach [facility] [address] [place] [address] Maria R Ho, RN Primary RN Care Management; Hospital F/U (Lace 44) 01/18/2024 Travel 01/12/2024 9:13 PM CDT - 01/17/2024 5:23 PM CDT Hospital Encounter [facility] [address] [place] [address] Megan, MD Nedra Valverde, DO Chente Honeycutt, MD Dusty Manjarrez, MD Ricky Alston, Helder Hoover MD [facility], [facility] Hospitalists Of Opioid dependence, uncomplicated (HC) (Primary Dx); Nasal congestion; Chronic pain syndrome; Diabetic ketoacidosis without coma associated with type 1 diabetes mellitus (HC); 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, macular edema presence unspecified, unspecified laterality, unspecified proliferative retinopathy type (HC); Heel ulcer, right, with unspecified severity (HC) Discharge Disposition: [facility] 01/09/2024 Refill [facility] [address] [place] [address] Barbara Valentin DO Refill Request (Fluoxetine) 01/09/2024 Refill [facility] [address] [place] [address] Elian Humphrey MD Refill Request (Torsemide) 01/06/2024 4:00 PM CDT Office Visit [facility] [address] [place] [address] Toshia Hooks NP Follow Up; Pain (Multi source; was told by her Director Of Player Personnel she can ot use OTC Voltaren gel., which had been helping her O.A. pain (hands; wrists; shoulders; ) ) 01/06/2024 Travel 01/02/2024 Telephone [facility] [address] [place] [address] Barbara Valentin, DO Follow Up from Last [...] Description 04/02/2024 2:10 PM CDT Office Visit [facility] [address] [place] [address] Barbara Valentin DO [address] [place] [address] 04/02/2024 3:25 PM CDT Office Visit [facility] [address] [place] [address] Barbara Valentin, DO [address] [place] [address] 05/04/2024 3:00 PM CDT Office Visit [facility] [address] [place] [address] Barbara Valentin, DO [address] [place] [address] 05/04/2024 3:30 PM CDT Phone Office Visit [facility] [address] [place], [place] [phone] Nikolai Ibarra MD [address] [place] [address] Health Maintenance Due Date Last Done Comments [...] 03/18/2020, Additional history exists Fecal testing sDNA-FIT (Hemet guard) for age 45-75 11/10/2024 11/10/2021 Pneumococcal series for age 6-64 (3 of 3 - PPSV23 or PCV20) 2026 08/17/2016, 08/14/2014, 07/04/2005, Additional history exists Lipids for age 45-75 04/28/2027 04/28/2022, 08/17/2019, 08/31/2018, Additional history exists Tdap Completed 08/25/2010 HIV for age 15-65 Completed 07/21/2015 Hepatitis C screening for ag e 18-79 Completed 02/16/2018 Medical Devices Implanted Type Area Photogrammetric Technician Device Identifier Shelf Expiration Date Model / Serial / Lot [id number] 2x12mm [[id number]] Implanted:Qty: 1 on 08/08/2008 at [facility] Explanted:at [facility] (Quantity not on file) [employer] [id number]# / [id number] / Stem Compnt Primary 8mm Mini - [id number] Implanted:Qty: 1 on 03/17/2011 at [facility] Right: Shoulder BIOMET [id number]# / / [id number] Head Hum Bio-Mod [id number] - [id number] Implanted:Qty: 1 on 03/17/2011 at [facility] Right: Shoulder BIOMET [id number]# / / [id number] Base Glenoid Hybrid 4mm Sm - [id number] Implanted:Qty: 1 on 03/17/2011 at [facility] Right: Shoulder BIOMET 265355# / / [id number] Cmnt 1/2 Dosehowmedica - [id number] Implanted:Qty: 1 on 03/17/2011 at [facility] Right: Shoulder [employer] 6188-1-01 0# / / [id number] Post Glenoid Hybrid Regenerex - [id number] Implanted:Qty: 1 on 03/17/2011 at [facility] Right: Shoulder BIOMET [id number] # / / [id number] Head Humeral 44x15 Co Cr Biomodular - [id number] Implanted:Qty: 1 on 07/12/2012 at [facility] Left: Shoulder BIOMET [id number]# / / [id number] Shoulder Stem Implanted:Qty: 1 on 07/12/2012 at [facility] Left: Shoulder [id number] / / [id number] Description:SHOULDER STEM Cmnt Bone 1/2 Dosehowmedica - [id number] Implanted:Qty: 1 on 07/12/2012 at [facility] Left: Shoulder Colon [employer] 6188-1-01 0# / / [id number] Post Glenoid Hybrid Regenerex - [id number] Implanted:Qty: 1 on 07/12/2012 at [facility] Left: Shoulder BIOMET [id number] # / / [id number] Base Glenoid Hybrid 4mm Sm - [id number] Implanted:Qty: 1 on 07/12/2012 at [facility] Left: Shoulder BIOMET [id number]# / / [id number] Procedures Procedure Name Priority Date/Time Associated Diagnosis [...] HIV 1/2 Add On 07/21/2015 9:40 AM REUSE TECHNICIAN MACHINE OPERATOR HAY STACKER THIN PREP PAP SCREEN IMAGED Routine 08/17/2012 4:02 PM REUSE TECHNICIAN Screening for malignant neoplasm of the cervix [...] - 100 mg/dL 01/17/2024 11:35 AM CDT [facility] Blood BLOOD SPECIMEN / Unknown 01/17/2024 11:27 AM CDT 01/17/2024 11:35 AM CDT Helder García MD [facility] [address] [place] [address], * (ABNORMAL) CREATININE (01/17/2024 8:20 AM CDT) Only the most recent of3 resultswithin the time period is included. eGFR 47(L) >90 mL/min/1.7 3m2 01/17/2024 9:06 AM CDT [facility] [employer] Comment:As of 2021, eG [...] Helder García MD CHEMISTRY Performing Organization Address [facility] Co de Phone Number [facility] [address] [place] [address], * PHOSPHORUS (01/17/2024 8:20 AM CDT) Only the most recent of5 resultswithin the time period is included. PHOSPHORUS 2.6 2.5 - 4.5 mg/dL 01/17/2024 9:06 AM CDT [facility] Blood BLOOD SPECIMEN / Unknown Non-Lab Venipuncture / Unknown 01/17/2024 8:20 AM CDT 01/17/2024 8:26 AM CDT Sarah Betancourt RN CHEMISTRY Performing Organization Address [facility] de Phone Number [facility] [address] [place] [address], * (ABNORMAL) BASIC METABOLIC PANEL (01/17/2024 8:20 [...] - 23 mg/dL 01/17/2024 12:35 PM CDT [facility] CREATININE 1.31(H) 0.50 - 0.90 mg/dL 01/17/2024 12:35 PM CDT [facility] BUN/CREAT RATIO 13 10 - 20 12:35 PM CDT [facility] eGFR 46(L) >90 [...] 8:26 AM CDT Helder García MD CHEMISTRY [facility] [address] [place] [address], * CLOSTRIDIOIDES DIFFICILE TOXIN PCR (01/16/2024 12:27 PM CDT) CLOSTRIDIUM DIFFICILE PCR Negative 01/16/2024 2:18 PM CDT [facility] PRESUMPTIVE NAP1 STRAIN Negative 01/16/2024 2:18 PM CDT [facility] Stool STOOL SPECIMEN / Unknown Non-Blood / Unknown 01/16/2024 12:27 PM CDT 01/16/2024 12:51 PM CDT Narrative [facility] - 01/16/2024 2:18 PM CDT The NAP1 (027 or BI) strain is a hypervirulent strain. Detection may be useful for epidemiological purposes. Helder García MD MICROBIOLOGY Performing Organization Address [facility] Co de Phone Number [facility] [address] [address], * SCAN CORRESP-EKG RESULTS (01/16/2024 9:07 AM CDT) Narrative 01/16/2024 9:07 AM CDT Ordered by an unspecified provider. Other Clinical Staff OTHER * (ABNORMAL) HEMOGLOBIN (01/16/2024 6:30 AM CDT) Only the most recent of2 resultswithin the time period is included. HEMOGLOBIN 8.9(L) 12.0 - 16.0 g/dL 01/16/2024 7:13 AM CDT [facility] MCV 91 80 - 100 fL 01/16/2024 7:13 AM CDT [facility] Blood BLOOD SPECIMEN / Unknown Venipuncture / Unknown 01/16/2024 6:30 AM CDT 01/16/2024 6:58 AM CDT Fabrizio Montano MD HEMATOLOGY Performing Organization Address City/[facility]/ZIP Co de Phone Number [facility] [address] [place] [id number], * VANCOMYCIN (01/16/2024 6:30 AM CDT) Only the most recent of3 resultswithin the time period is included. VANCOMYCIN 13.0 ug/mL 01/16/2024 7:42 AM CDT [facility] Comment:No Reference Range D efined. DATE OF LAST DOSE,RANDOM Not Given 01/16/2024 7:42 AM CDT [facility] TIME OF LAST DOSE,RANDOM Not Given 01/16/2024 7:42 AM CDT [facility] Blood BLOOD SPECIMEN / Unknown Venipuncture / Unknown 01/16/2024 6:30 AM CDT 01/16/2024 6:58 AM CDT Barbara Holcomb NP CHEMISTRY Performing Organization Address [facility]/ZIP Co de Phone Number [facility] [address] [address], [place] * (ABNORMAL) PLATELET COUNT (01/15/2024 6:02 AM CDT) PLATELET COUNT 166 140 - 440 thou/cu mm 01/15/2024 6:44 AM CDT [facility] MPV 11.2(H) 6.5 - 11.0 fL 01/15/2024 6:44 AM CDT [facility] Blood BLOOD SPECIMEN / Unknown Venipuncture / Unknown 01/15/2024 6:02 AM CDT 01/15/2024 6:26 AM CDT Fabrizio Montano MD HEMATOLOGY Performing Organization Address [facility]/ZIP Co de Phone Number [facility] [address] [address], [place] * WHITE BLOOD COUNT (01/15/2024 6:02 AM CDT) WHITE BLOOD COUNT 4.9 4.5 - 11.0 thou/cu mm 01/15/2024 6:44 AM CDT [facility] NRBC 0.0 % 01/15/2024 6:44 AM CDT [facility] ABS NRBC 0.0 thou /cu mm 01/15/2024 6:44 AM CDT [facility] Blood BLOOD SPECIMEN / Unknown Venipuncture / Unknown 01/15/2024 6:02 AM CDT 01/15/2024 6:26 AM CDT Fabrizio Montano MD HEMATOLOGY Performing Organization Address City/[facility]/ZIP Co de Phone Number [facility] [address] [address], [place] * Sodium AM (01/15/2024 6:02 AM CDT) SODIUM 142 136 - 145 mmol/L 01/15/2024 7:13 AM CDT [facility] Blood BLOOD SPECIMEN / Unknown Venipuncture / Unknown 01/15/2024 6:02 AM CDT 01/15/2024 6:27 AM CDT Fabrizio Montano MD CHEMISTRY Performing Organization Address [facility] Co de Phone Number [facility] [address] [phone], [place] * Potassium AM (01/15/2024 6:02 AM CDT) Only the most recent of3 resultswithin the time period is included. POTASSIUM 4.4 3.5 - 5.1 mmol/L 01/15/2024 7:13 AM CDT [facility] Blood BLOOD SPECIMEN / Unknown Venipuncture / Unknown 01/15/2024 6:02 AM CDT 01/15/2024 6:27 AM CDT Fabrizio Montano MD CHEMISTRY Performing Organization Address [facility] Co de Phone Number [facility] [address] [place] [address], [place] * SCAN-CARDIAC STRIP (01/14/2024 7:07 AM [...] - 16.0 g/dL 01/14/2024 6:33 AM T [facility] HEMATOCRIT 27.5(L) 33.0 - 51.0 % 01/14/2024 6:33 AM CDT [facility] MCV 91 80 - 100 fL 01/14/2024 6:33 AM T [facility] MCH 29.3 26.0 - 34.0 pg 01/14/2024 6:33 AM CDT [facility] MCHC 32.4 32.0 - 36.0 g/dL 01/14/2024 6:33 AM T [facility] RDW 14.4 11.5 - 15.5 % 01/14/2024 6:33 AM CDT [facility] PLATELET COUNT 198 140 - 440 thou/cu mm 01/14/2024 6:33 AM T [facility] MPV 11.4(H) 6.5 - 11.0 fL 01/14/2024 6:33 AM CDT [facility] NRBC 0.0 % 01/14/2024 6:33 AM T [facility] ABS NRBC 0.0 thou /cu mm 01/14/2024 6:33 AM T [facility] Blood BLOOD SPECIMEN / Unknown Non-Lab Venipuncture / Unknown 01/14/2024 5:28 AM CDT 01/14/2024 6:31 AM CDT Barbara Holcomb NP HEMATOLOGY [facility] [address] [place] [address], * (ABNORMAL) CALCIUM IONIZED HOSPITAL DRAW ONLY (01/14/2024 5:28 AM CDT) Only the most recent of3 resultswithin the time period is included. CALCIUM,IONIZE D 1.30(H) 1.15 - 1.27 mmol/L 01/14/2024 6:03 AM CDT [facility] Blood BLOOD SPECIMEN / Unknown Non-Lab Venipuncture / Unknown 01/14/2024 5:28 AM CDT 01/14/2024 5:49 AM CDT Grace Eldridge MD CHEMISTRY [facility] [address] [place] [address], * ECHO TTE COMPLETE W CONTRAST (01/13/2024 3:56 PM CDT) Pathologist [facility] AORTIC VALVE MEAN PG 7 mmHg EJECTION FRACTION 64 % LVEDD 4.1 cm EJECTION FRACTION 60 - 65% Anatomical Region Laterality Modality Ultrasound 01/13/2024 2:53 PM CDT Narrative 01/13/2024 4:39 PM CDT ECHOCARDIOGRAM MIKAYLA KUHN ? Accession#: ?? [id number] : ?1960 63 years Study Date: ?? 01/13/2024 2:53:14 PM Gender: F ?BP: ? 114/44 mmHg Height: 152.00 cm ?BSA: ?1.93 m? ? ? Weight: 98.00 kg ? Tech: ? KBA ? Referring MD: BARBARA HOLCOMB Site: ? [facility] Reading Location: ANW IP Patient Location: Inpatient. [...] documentation: 2 ml diluted Definity, lot #[id number], [facility]# [id number] was administered peripherally to enhance visualization of all left ventricular segments. . This study was interpreted by an [facility] accredited facility. ??Final ?? Procedure Note Travon Blood MD - 01/13/2024 ECHOCARDIOGRAM MIKAYLA KUHN : 1960 63 years Study Date: 01/13/2024 2:53:14 PM Gender: F BP: 114/44 mmHg Height: 152.00 cm BSA: 1.93 m? ? ? Weight: 98.00 kg Tech: PASQUALE Referring MD: BARBARA HOLCOMB Site: [facility] Reading Location: ANW IP Patient Location: Inpatient. [...] documentation: 2 ml diluted Definity, lot #[id number], [facility]#[id number] was administered peripherally to enhance visualization of allleft ventricular segments. . This study was interpreted by an [facility] accredited facility. Final Barbara Holcomb ARRESTING GEAR OPERATOR ECHO ORD * US ARTERIAL LOWER [...] 125 mmHg Left Brachial: 111 mmHg Right DRAWSTRING KNOTTER: Noncompressible Right DPA: 115 mmHg (SAMUEL 0.92) Left DRAWSTRING KNOTTER: Noncompressible Left DPA: Noncompressible SAMUEL: 1.0-1.4 - normal 0.9-0.99 - borderline 0.80-0.89 - mild 0.50-0.79 - moderate 0.30-0.49 - severe < 0.30 - critical RIGHT: ELECTRICIAN JOURNEYMAN WIREMAN PROX: 204 cm/sec; triphasic waveforms ELECTRICIAN JOURNEYMAN WIREMAN DIST: 138 cm/sec; triphasic waveforms PFA: 97 cm/sec; triphasic waveforms SFA PROX: 140, 111 cm/sec; triphasic waveforms SFA MID: 113, 74 cm/sec; triphasic waveforms SFA DIST: 107, 113 cm/sec; triphasic waveforms POP PROX: 105 cm/sec; triphasic waveforms POP DIST: 89 cm/sec; triphasic waveforms DRAWSTRING KNOTTER: 32 cm/sec; triphasic waveforms KAITLYN: 58 cm/sec; triphasic waveforms DPA: 56 cm/sec; triphasic waveforms LEFT: ELECTRICIAN JOURNEYMAN WIREMAN PROX: 193 cm/sec; triphasic waveforms ELECTRICIAN JOURNEYMAN WIREMAN DIST: 152 cm/sec; triphasic waveforms PFA: 98 cm/sec; triphasic waveforms SFA PROX: 119, 109 cm/sec; triphasic waveforms SFA MID: 103, 102 cm/sec; triphasic waveforms SFA DIST: 103, 100 cm/sec; triphasic waveforms POP PROX: 124 cm/sec; triphasic waveforms POP DIST: 85 cm/sec; triphasic waveforms DRAWSTRING KNOTTER: 169 cm/sec; triphasic waveforms KAITLYN: 91 cm/sec; [...] 125 mmHg Left Brachial: 111 mmHg Right DRAWSTRING KNOTTER: Noncompressible Right DPA: 115 mmHg (SAMUEL 0.92) Left DRAWSTRING KNOTTER: Noncompressible Left DPA: Noncompressible SAMUEL: 1.0-1.4 - normal 0.9-0.99 - borderline 0.80-0.89 - mild 0.50-0.79 - moderate 0.30-0.49 - severe < 0.30 - critical RIGHT: ELECTRICIAN JOURNEYMAN WIREMAN PROX: 204 cm/sec; triphasic waveforms ELECTRICIAN JOURNEYMAN WIREMAN DIST: 138 cm/sec; triphasic waveforms PFA: 97 cm/sec; triphasic waveforms SFA PROX: 140, 111 cm/sec; triphasic waveforms SFA MID: 113, 74 cm/sec; triphasic waveforms SFA DIST: 107, 113 cm/sec; triphasic waveforms POP PROX: 105 cm/sec; triphasic waveforms POP DIST: 89 cm/sec; triphasic waveforms DRAWSTRING KNOTTER: 32 cm/sec; triphasic waveforms KAITLYN: 58 cm/sec; triphasic waveforms DPA: 56 cm/sec; triphasic waveforms LEFT: ELECTRICIAN JOURNEYMAN WIREMAN PROX: 193 cm/sec; triphasic waveforms ELECTRICIAN JOURNEYMAN WIREMAN DIST: 152 cm/sec; triphasic waveforms PFA: 98 cm/sec; triphasic waveforms SFA PROX: 119, 109 cm/sec; triphasic waveforms SFA MID: 103, 102 cm/sec; triphasic waveforms SFA DIST: 103, 100 cm/sec; triphasic waveforms POP PROX: 124 cm/sec; triphasic waveforms POP DIST: 85 cm/sec; triphasic waveforms DRAWSTRING KNOTTER: 169 cm/sec; triphasic waveforms KAITLYN: 91 cm/sec; [...] 01/14/2024 4:57:16 PM (Electronically Signed) Freya Schafer ARRESTING GEAR OPERATOR US * US RENAL AND BLADDER [...] with Snow catheter in place. Procedure Note Jonh Carter MD - 01/14/2024 For Patients: As [...] CDT) CULTURE RESULT(A) 01/16/2024 2:44 PM CDT [facility] CULTURE 3+ Corynebacterium striatum 01/16/2024 2:44 PM CDT [facility] CULTURE 2+ Mixed oni present 01/16/2024 2:44 PM CDT [facility] GRAM STAIN No PMNs 01/16/2024 2:44 PM CDT [facility] GRAM STAIN 2+ RBCs 01/16/2024 2:44 PM CDT [facility] GRAM STAIN No Epithelial cells 01/15 2:44 PM CDT [facility] GRAM STAIN 2+ Gram Positive Bacilli 01/16/2024 2:44 PM CDT [facility] Other (Other) Non-Blood / Unknown 01/13/2024 11:49 AM CDT 01/13/2024 12:00 PM CDT Narrative [facility] - 01/16/2024 2:44 PM CDT Mixed oni; No Staphylococcus aureus, beta-Streptococcus, Streptococcus pneumoniae, or Pseudomonas aeruginosa isolated. Freya Schafer NP MICROBIOLOGY Performing Organization Address City/[facility]/ZIP Co de Phone Number [facility] [address] [place] [address], * ANAEROBIC CULTURE (01/13/2024 11:49 AM CDT) CULTURE No anaerobes isolated 01/19/2024 10:01 AM CDT [facility] Other (Other) Non-Blood / Unknown 01/13/2024 11:49 AM CDT 01/13/2024 12:00 PM CDT Freya Schafer NP MICROBIOLOGY Performing Organization Address City/[facility]/ZIP Co de Phone Number [facility] [address] [place] [address], * (ABNORMAL) Electrolytes Panel - DKA (01/13/2024 10:53 AM CDT) Only the most recent of3 resultswithin the time period is included. SODIUM 140 136 - 145 mmol/L 01/13/2024 11:36 AM CDT [facility] POTASSIUM 5.2(H) 3.5 - 5.1 mmol/L 01/13/2024 11:36 AM CDT [facility] CHLORIDE 107 98 - 107 mmol/L 01/13/2024 11:36 AM CDT [facility] CO2,TOTAL 21(L) 22 - 29 mmol/L 01/13/2024 11:36 AM CDT [facility] ANION GAP 12 5 - 18 01/13/2024 11:36 AM CDT [facility] Blood BLOOD SPECIMEN / Unknown Non-Lab Venipuncture / Unknown 01/13/2024 10:53 AM CDT 01/13/2024 11:01 AM CDT Ifeanyi Hernández RN CHEMISTRY Performing Organization Address [facility] Co de Phone Number [facility] [address] [place] [address], * SCAN-CARDIAC STRIP (01/13/2024 8:00 AM CDT) Scanner OTHER * MAGNESIUM (01/13/2024 4:22 AM CDT) Only the most recent of2 resultswithin the time period is included. MAGNESIUM 1.9 1.6 - 2.4 mg/dL 01/13/2024 5:07 AM CDT [facility] Blood BLOOD SPECIMEN / Unknown Non-Lab Venipuncture / Unknown 01/13/2024 4:22 AM CDT 01/13/2024 4:41 AM CDT Ifeanyi Hernández RN CHEMISTRY Performing Organization Address [facility] Co de Phone Number [facility] [address] [place] [address], [place] * (ABNORMAL) Serum Glucose - DKA (01/13/2024 1:52 AM CDT) Only the most recent of2 resultswithin the time period is included. Pathologist [facility] GLUCOSE,RANDOM 459(H) 70 - 139 mg/dL 01/13/2024 2:46 AM CDT [facility] Blood BLOOD SPECIMEN / Unknown Non-Lab Venipuncture / Unknown 01/13/2024 1:52 AM CDT 01/13/2024 2:03 AM CDT Emily Guzman MD CHEMISTRY Performing Organization Address City/[facility]/ZIP Co de Phone Number [facility] [address] [address], * (ABNORMAL) TROPONIN T (HS) ONE TIME (01/12/2024 11:39 PM CDT) [facility] TROPONIN T HS 45(H) 6-10 ng/L ng/L 01/13/2024 12:22 AM CDT [facility] Blood BLOOD SPECIMEN / Unknown Non-Lab Venipuncture / Unknown 01/12/2024 11:39 PM CDT 01/12/2024 11:45 PM CDT Emily Guzman MD CHEMISTRY Performing Organization Address City/[facility]/ZIP Co de Phone Number [facility] [address] [address], [place] * 12 Lead EKG (01/12/2024 10:16 PM CDT) [facility] Interpretation Normal sinus rhythm Left axis deviation Abnormal ECG When compared with ECG of 02-Jan-2019 02:01, Nonspecific T wave abnormality now evident in Lateral leads BEYOND NOW Ventricular Rate 78 BPM BEYOND NOW Atrial Rate 78 BPM BEYOND NOW P-R Interval 160 ms BEYOND NOW QRS Duration 82 ms BEYOND NOW QT 400 ms BEYOND NOW QTc 456 ms BEYOND NOW P Howell 72 degrees BEYOND NOW R Howell -31 degrees BEYOND NOW T Howell 69 degrees BEYOND NOW 01/12/2024 10:1 6 PM CDT 01/13/2024 8:20 PM CDT Emily Guzman MD EKG ORD BEYOND NOW [place], [place] * MRSA/SA PCR (01/12/2024 10:07 PM CDT) MRSA DNA PCR Negative Negative 01/12/2024 11:33 PM CDT [facility] STAPHYLOCOCCUS AUREUS PCR Negative Negative 01/12/2024 11:33 PM CDT [facility] Other SPECIMEN FROM INTERNAL NOSE / Unknown Non-Blood / Unknown 01/12/2024 10:07 PM CDT 01/12/2024 10:13 PM CDT Narrative [facility] - 01/12/2024 11:33 PM CDT Test result does not preclude MRSA or SA nasal colonization. Chaparro Sneed DO MICROBIOLOGY [facility] [address] [place] [address], * (ABNORMAL) Urine Culture (01/12/2024 10:07 PM CDT) CULTURE RESULT(A) 01/16/2024 6:[address] [facility] CULTURE 10,000-50,000 CFU/mL Proteus mirabilis 01/16/2024 6:[address] [facility] CULTURE 50,000-100,000 CFU/mL [...] Guzman MD MICROBIOL OGY Performing Organization Address City/[facility] Co de Phone Number [facility] [address] * Blood Culture (01/12/2024 9:40 PM CDT) Only the most recent of2 resultswithin the time period is included. CULTURE No Growth. 01/16/2024 11:23 PM CDT [facility] Blood BLOOD SPECIMEN / Unknown Venipuncture / Unknown 01/12/2024 9:40 PM CDT 01/12/2024 9:52 PM CDT Narrative [facility] - 01/16/2024 11:23 PM CDT Low volume blood culture received; possible false negative culture. Emily Guzman MD MICROBIOL OGY Performing Organization Address City/[facility] Co de Phone Number [facility] [address] [address], * (ABNORMAL) TROPONIN T(HS) ACUTE W/2HR REFLEX (01/12/2024 9:37 PM CDT) [facility] TROPONIN T HS 47(H) 6-10 ng/L ng/L 01/12/2024 10:16 PM CDT [facility] Blood BLOOD SPECIMEN / Unknown Non-Lab Venipuncture / Unknown 01/12/2024 9:37 PM CDT 01/12/2024 9:46 PM CDT [facility] - 01/12/2024 10:16 PM CDT [...] department patient population. Emily Guzman MD CHEMISTRY [facility] [address] [place] [address], * (ABNORMAL) CBC WITH AUTO DIFFERENTIAL (01/12/2024 [...] [facility] % IMMATURE GRAN (METAS,MYELOS,OH OS) 0.7 % 01/12/2024 9:54 PM CDT [...] PM CDT Emily Guzman MD [facility]OLOG [facility] [address] [place] [id number], * (ABNORMAL) BLOOD GAS,VENOUS (01/12/2024 9:37 PM [...] - 29 mmol/L 01/12/2024 9:52 PM [facility]T [facility] BASE EXCESS, VENOUS, POCT -7.7(L) -2.0 - 3.0 01/12/2024 9:52 PM CDT [facility] O2 SATURATION, VENOUS 85(H) 70 - 75 % 01/12/2024 9:52 PM CDT [facility] INSPIRED O2 21 01/12/2024 9:52 [...] 9:46 PM CDT Emily Guzman MD CHEMISTRY [facility] [address] [place] [id number], * Protime - INR (01/12/2024 9:37 PM CDT) INR 1.0 <1.3 01/12/2024 9:56 PM CDT [facility] PROTIME 11.5 10.3 - 12.3 sec 01/12/2024 9:56 PM CDT [facility] Blood BLOOD SPECIMEN / Unknown Non-Lab Venipuncture / Unknown 01/12/2024 9:37 PM CDT 01/12/2024 9:46 PM CDT Narrative [facility] - 01/12/2024 9:56 PM CDT [...] on UFH. Emily Guzman MD HEMATOLOG Y [facility] [address] [place] [id number], * (ABNORMAL) HEMOGLOBIN A1C MONITORING (POCT) (01/12/2024 9:37 PM CDT) HEMOGLOBIN A1C MONITORING (POCT) 9.3(H) <=6.4 % 01/14/2024 10:29 AM CDT [facility] Blood BLOOD SPECIMEN / Unknown Non-Lab Venipuncture / Unknown 01/12/2024 9:37 PM CDT 01/12/2024 9:46 PM CDT Narrative [facility] - 01/14/2024 10:29 AM CDT [...] Barbara Holcomb NP CHEMISTRY Performing Organization Address [facility]/State/ZIP Co de Phone Number [facility] [address] [place] [address], * (ABNORMAL) Hepatic Function Panel (01/12/2024 9:37 PM CDT) [facility] ALBUMIN 3.2(L) 4.0 - 4.9 g/dL 01/12/2024 [...] [facility] BILIRUBIN,INDIRE CT 01/12/2024 [...] 9:46 PM CDT Emily Guzman MD CHEMISTRY [facility] [address] [place] [address], * SCAN-CARDIAC STRIP (01/12/2024 9:20 PM CDT) [...] health care provider. XR MAMMO BILAT SCREENING [[id number]] CLINICAL HISTORY: ??This is an asymptomatic 61 y.o. patient. INDICATION FOR EXAM: Mammogram Screening. TECHNIQUE: CC & MLO views were obtained. ??This study was evaluated with the assistance of Computer-Aided Detection. COMPARISON FILM: Yes [facility] FINDINGS: ??The breasts are extremely dense, which lowers the sensitivity of mammography. There are no dominant masses, suspicious micro calcifications or areas of architectural distortion. Shania Montiel MD MAMMO * LIPID PANEL W REFLEX MEASURED LDL (04/28/2022 1:44 PM CDT) CHOLESTEROL,TOTAL 139 100 - 199 mg/dL 04/30/2022 6:25 PM CDT [facility] TRIGLYCERIDES 141 <150 mg/dL 04/30/2022 6:25 PM CDT [facility] HDL CHOLESTEROL [...] Shania Montiel MD CHEMISTRY Performing Organization Address City/[facility]/ZIP Co de Phone Number [facility] [address] [place] [address], [place] * FECAL DNA (AKA COLOGUARD) (11/10/2021 1:00 PM CDT) Shania Montiel MD COMMUNICATION ORD * ANTI HCV [[id number]] (02/16/2018 4:20 PM CDT) HEPATITIS C ANTIBODY Non-React alex Non-React alex 02/17/2018 2:48 PM CDT [facility] Comment:Antibodies to HCV no t detected; does not exclude the possibility of exposure to HCV. Blood BLOOD SPECIMEN / Unknown Butterfly / Unknown 02/16/2018 4:20 PM CDT 02/16/2018 4:20 PM CDT Coleman Plata MD SEND OUTS [facility] [address] [place] [id number], [place] * HIV 1&2 TODAY (07/21/2015 9:40 AM REUSE TECHNICIAN) HIV-1/HIV-2 ANTIBODY Non-Reacti ve Non-Reacti ve 07/21/2015 10:31 AM REUSE TECHNICIAN [facility] Blood specimen (specimen) BLOOD SPECIMEN / Unknown Venipuncture / Unknown 07/21/2015 9:40 AM REUSE TECHNICIAN 07/21/2015 9:47 AM REUSE TECHNICIAN N[address]ative [facility] - 07/21/2015 10:31 AM REUSE TECHNICIAN HIV-1 p24 and HIV-1/HIV-2 Ab not detected Kait Morales DO SEND OUTS [facility] [address] [place] [address], [place] * MACHINE OPERATOR HAY STACKER THIN PREP PAP SCREEN IMAGED (08/17/2012 4:02 PM REUSE TECHNICIAN) Pathologist [facility] CYTOLOGY CYTOPATHOLOGY REPORT [facility] Status: Final Status ?[id number] CLINICAL INFORMATION Last Date of LMP ? :07/03/2012 Last Pap Date ?:02/01/2011 Last Pap Result ?:NIL ABN [place]/Bx Past 5 YRS :None Hormone Usage ?:BCP/OCP/Patch/R ing Menstrual Status ? :Regular Periods [place]/Bx done today ? :No Additional Information :None [...] specimen (specimen) (Cervical/Vagina l) 08/17/2012 4:02 PM REUSE TECHNICIAN 08/17/2012 4:00 PM REUSE TECHNICIAN Coleman Plata MD PATHOLOGY/CYTOLOGY [facility] INTERNAL ZIP [address] [place] [phone] from Last 3 Months or Most Recently [...] Urine earlier this year (per report from [facility], [facility]), 04/19/18 L cheek abscess exclusions for contact precaution discontinuation (if > 12 months since positive culture): resides in acute/oysterman care, receiving hemodialysis, has chronic open wounds/skin [...] 8:01 PM 07/15/2012 6:55 PM Care Teams Serology Teacher Relationship Specialty Start Date End Date Barbara Valentin DO [address] [place] [address] PCP - General Family Practice 11/15/22 Julio Ibrahim MD [address] [place] [address] Surgery - Orthopedics 02/01/11 Chuy Doss MD [address] [place] [address] Surgery - Vascular 02/01/11 Markel Strong MD [address] [place] [address] Provider Family Practice 08/08/20 Nikolai Ibarra MD [address] [place] [address] Endocrinology 09/07/22 Suad Ng/ [employer] CM Refrigeration Specialist 07/14/17 [facility] Home Health Nurse 07/01/17 [facility] PHYSICAL MEDICINE SPECIALIST Services Home Health Aide 07/14/17 [facility] Services/ Ally Christianson [address] [place] [address] Refrigeration Specialist 07/07/17
--- OUTSIDE RECORDS SUMMARY | 2024-03-31 04:46 | XMS_ITS | Encounter Summary ---
Author Organization [facility] Address [address] [place] [address] Care Team Providers Care Coke Oven Patcher Name Role Phone Barbara Valentin DO Primary Care Provider [phone] Encounter Details Date Type Department Care Team (Late st Contact Info) Description 09/22/2023 Documentation Only [facility] [address] [facility] [address] [place] [address] No, Pcp Social History Tobacco [...] on filedocumented in this encounter Care Teams Coke Oven Patcher Relationship Specialty Start Date End Date Barbara Valentin DO Roxy [facility] [address] PCP - General Family Medicine 09/22/23 documented as of this encounter
== END 2024-03-29 15:19 | disposition home or self-care (01) ==
LOC: AMB 03-31 04:44
PROVIDERS: PCP Family Medicine; Visit Provider Emergency Medicine Emergency Medical Services
DX: R53.1 Weakness (principal); E11.65 Type 2 diabetes mellitus with hyperglycemia
CPT/HCPCS: A0425; A0429

== ENCOUNTER 2024-03-29 15:52 | Emergency (ER) | payer OTHER, SELFPAY ==
[2024-03-29] VITALS (7 sets, daily range): BP systolic 104–125; BP diastolic 46–65; PULSE 78–85; RESP 22; TEMP 36.6; O2SAT 89–100; BMI 39.1
--- NOTE | 2024-03-29 16:10 | ED_ITS ---
HPI - General Adult General Chief complaint: Diabetic Related Problem Stated complaint: hyperglycemia Time Seen by Provider: 03/29/24 16:03 History of Present Illness HPI narrative: This 63-year-old female comes in because of high blood glucose readings. She states that she does check her glucose 4 times a day. Apparently today is when high readings began. She states that she has been taking her insulin as indicated. She does not report any other new symptoms. Related Data Home Medications ?Medication ?Instructions ?Recorded ?Confirmed amlodipine 2.5 mg tablet 2.5 mg PO BID 10/11/22 03/29/24 atorvastatin 20 mg tablet 20 mg PO QPM 10/11/22 03/29/24 buprenorphine 5 mcg/hour weekly 1 patch transdermal Q7D 10/11/22 03/29/24 transdermal patch cetirizine 5 mg tablet 5 mg PO DAILY 10/11/22 03/29/24 cholecalciferol (vitamin D3) 50 50 mcg PO DAILY 10/11/22 03/29/24 mcg (2,000 unit) capsule duloxetine 60 mg capsule,delayed 60 mg PO DAILY 10/11/22 03/29/24 release metoprolol succinate 25 mg 25 mg PO DAILY 10/11/22 03/29/24 tablet,extended release 24 hr omeprazole 20 mg capsule,delayed 20 mg PO DAILY 10/11/22 03/29/24 release oxycodone 5 mg tablet 5 mg PO BID PRN 10/11/22 03/29/24 polyethylene glycol 3350 17 17 g PO DAILY PRN 10/11/22 03/29/24 gram/dose oral powder (Miralax) pregabalin 100 mg capsule 100 - 200 mg PO BID 10/11/22 03/29/24 pregabalin 50 mg capsule 50 mg PO HS 10/11/22 03/29/24 sennosides 8.6 mg-docusate sodium 2 tab PO BID PRN 10/11/22 03/29/24 50 mg tablet (Stool Softener-Stimulant Laxative) torsemide 20 mg tablet 40 mg PO DAILY 10/11/22 03/29/24 vitamin B12 2,500 mcg-folic acid 1 tab PO DAILY 10/11/22 03/29/24 400 mcg disintegrating tablet acetaminophen 650 mg 1,300 mg PO Q8H 12/19/22 03/29/24 tablet,extended release levothyroxine 125 mcg tablet 125 mcg PO DAILY 05/25/23 03/29/24 fluoxetine 10 mg capsule 10 mg PO DAILY 03/16/24 03/29/24 cyanocobalamin (vitamin B-12) 1,000 mcg PO DAILY 03/17/24 03/29/24 1,000 mcg tablet glucagon 3 mg/actuation nasal 3 mg intranasal DIRECTED PRN 03/17/24 03/29/24 spray (Baqsimi) naloxone 4 mg/actuation nasal 4 mg intranasal DIRECTED PRN 03/17/24 03/29/24 spray (Narcan) Previous Rx's ?Medication ?Instructions ?Recorded insulin lispro 100 unit/mL 8 unit (0.08 mL) subcut TIDWM 30 03/22/24 subcutaneous pen (Humalog KwikPen days (U-100) Insulin) Allergies Allergy/AdvReac Type Severity Reaction Status Date / Time ampicillin Allergy Mild Hives Verified 03/29/24 16:02 aspirin Allergy Unknown Verified 03/29/24 16:02 NSAIDS (Non-Steroidal Allergy Unknown Verified 03/29/24 16:02 Anti-Inflamma Review of Systems Status of ROS: Reports: 10 or more systems reviewed and unremarkable except as noted in History and below Narrative: Constitutional: No fevers, no weight gain or loss. Eyes: No discharge. No vision changes. HENT: No congestion, no sore throat, no ear pain. Cardiovascular: No chest pain, no palpitations. Respiratory: No shortness of breath, no wheezes, no cough. Gastrointestinal: No abdominal pain, no vomiting, no diarrhea. Genitourinary: No dysuria, no hematuria. Musculoskeletal: Normal range of motion. Skin: No rashes, no pruritis. Neurological: No dizziness, weakness, sensory change, speech change. Endo/Heme/Allergies: No bruising or bleeding. No polydipsia. Pysch: no suicidality, no anxiety, no insomnia. All other systems reviewed and are negative. [facility] Medical History (Updated 03/29/24 @ 18:45 by Brandt Curran MD) Nocturnal hypoglycemia ?E16.1 - Other hypoglycemia (ICD-10) Stage 4 chronic kidney disease ?N18.4 - Chronic kidney disease, stage 4 (severe) (ICD-10) Congestive heart failure (CHF) ?I50.9 - Heart failure, unspecified (ICD-10) Hypertension ?I10 - Essential (primary) hypertension (ICD-10) Diabetes type I ?E10.9 - Type 1 diabetes mellitus without complications (ICD-10) Hyperosmolar syndrome ?E87.0 - Hyperosmolality and hypernatremia (ICD-10) Sleep apnea ?G47.30 - Sleep apnea, unspecified (ICD-10) Ulnar neuropathy ?G56.20 - Lesion of ulnar nerve, unspecified upper limb (ICD-10) Hyperlipidemia ?E78.5 - Hyperlipidemia, unspecified (ICD-10) Morbid obesity ?E66.01 - Morbid (severe) obesity due to excess calories (ICD-10) GERD (gastroesophageal reflux disease) ?K21.9 - Gastro-esophageal reflux disease without esophagitis (ICD-10) 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 diabetic neuropathic arthropathy (ICD-10) Depressive disorder ?F32.A - Depression, unspecified (ICD-10) COPD (chronic obstructive pulmonary disease) ?J44.9 - Chronic obstructive pulmonary disease, unspecified (ICD-10) Chronic pain syndrome ?G89.4 - Chronic pain syndrome (ICD-10) Chronic kidney disease, stage 1 ?N18.1 - Chronic kidney disease, stage 1 (ICD-10) Carpal tunnel syndrome ?G56.00 - Carpal tunnel syndrome, unspecified upper limb (ICD-10) Diabetic retinopathy ?E11.319 - Type 2 diabetes mellitus with unspecified diabetic retinopathy without macular edema (ICD-10) Anemia of other chronic disease ?D63.8 - Anemia in other chronic diseases classified elsewhere (ICD-10) Acute respiratory failure ?J96.00 - Acute respiratory failure, unspecified whether with hypoxia or hypercapnia (ICD-10) Surgical History History of thyroidectomy ?E89.0 - Postprocedural hypothyroidism (ICD-10) History of hip replacement ?Z96.649 - Presence of unspecified artificial hip joint (ICD-10) History of gastric bypass ?Z98.84 - Bariatric surgery status (ICD-10) History of section ?Z98.891 - History of uterine scar from previous surgery (ICD-10) Hx of cataract removal with insertion of prosthetic lens ?Z98.49 - Cataract extraction status, unspecified eye (ICD-10) ?Z96.1 - Presence of intraocular lens (ICD-10) History of carpal tunnel release ?Z98.890 - Other specified postprocedural states (ICD-10) History of knee replacement procedure of right knee ?Z96.651 - Presence of right artificial knee joint (ICD-10) Family History (Updated 03/16/24 @ 22:34 by Peterson Javed MD) Mother Diabetes Obesity Sleep apnea Brother Diabetes Obesity Sleep apnea Father Sleep apnea High blood pressure Social History (Updated 03/16/24 @ 22:34 by Peterson Javed MD) Narrative: Full Code. Lives with son Mitul, who would be medical decision maker if needed. Also lives with sister. She does not smoke. She does not drink alcohol. What is your current living situation?: I presently have a place to live Problems where you live: no known problems Problems where you live details: no In the past 12 months, utilities in danger of being shut off: no In past 12 months, lack of transportation kept you from medical appts, meetings, work, or getting things needed for daily living: no In the past 12 mos, have been you worried that your food would run out before you had money to buy more?: never true In the past 12 mos, the food you bought just didn't last and you didn't have money to buy more?: never true Smoking Status: Never smoker Do you use any of these nicotine containing products: None Second hand tobacco smoke exposure: No How often do you have a drink containing alcohol: never How often do you have six or more drinks on one occasion: Never AUDIT-C Alcohol total score: 0 Non-prescribed substance use: denies use How often does anyone, including family, friends and others, physically hurt you : never How often does anyone, including family, friends and others, insult or talk down to you: never How often does anyone, including family, friends and others, threaten you with harm: never How often does anyone, including family, friends and others, scream or curse at you: never service: No Exam Narrative: Exam Narrative: Constitutional: Well-developed, well-nourished, no acute distress. HEENT: Normocephalic, atraumatic. Neck: Normal range of motion. Nontender. Supple. Heart: Regular. No murmurs. Normal rate. Intact distal pulses. Lungs: Clear to auscultation. No chest discomfort. No wheezes, rhonchi, or rales. Abdomen: Normal bowel sounds. Nontender. No rebound tenderness. Genitalia: Deferred. Back: No midline tenderness. Normal range of motion. Extremities: Normal range of motion. No injury. Skin: Intact. No rash. Warm. No erythema or pallor. Neurologic: No altered sensation. No weakness. Alert and oriented. Psychiatric: No suicidality. No anxiety or depression. No insomnia. Nursing notes and vitals signs are reviewed. Const: Vital Signs, click to edit/add: Vital Signs - 24 hr 03/29/24 15:54 03/29/24 16:22 03/29/24 16:30 Temperature 97.9 F Pulse Rate 84 81 Pulse Rate [Pulse Oximeter] 85 Respiratory Rate 22 Blood Pressure Blood Pressure [Ri ght Forearm] 125/46 L Pulse Oximetry 89 90 90 Oxygen Delivery Me thod Room Air 03/29/24 16:52 03/29/24 17:00 03/29/24 17:05 Temperature Pulse Rate 78 80 85 Pulse Rate [Pulse Oximeter] Respiratory Rate Blood Pressure 115/65 104/52 L Blood Pressure [Ri ght Forearm] Pulse Oximetry 91 95 94 Oxygen Delivery Me thod 03/29/24 17:35 Temperature Pulse Rate 82 Pulse Rate [Pulse Oximeter] Respiratory Rate Blood Pressure Blood Pressure [Ri ght Forearm] Pulse Oximetry 100 Oxygen Delivery Me thod Course Vital Signs Vital signs: Initial Vital Signs Temperature 97.9 F 03/29/24 15:54 Temperature Source Temporal Artery Scan 03/29/24 15:54 Pulse Rate 85 03/29/24 15:54 Pulse Rhythm Regular 03/29/24 15:54 Pulse Strength 3+ Normal 03/29/24 15:54 Respiratory Rate 03/29/24 15:54 Blood Pressure 125/46 L 03/29/24 15:54 Blood Pressure Mean 72 03/29/24 15:54 Blood Pressure Position High-Fowlers 03/29/24 15:54 Pulse Oximetry 89 03/29/24 15:54 Oxygen Delivery Method Room Air 03/29/24 15:54 Vital Signs Temperature 97.9 F 03/29/24 15:54 Pulse Rate 85 03/29/24 15:54 Respiratory Rate 22 03/29/24 15:54 Blood Pressure 125/46 L 03/29/24 15:54 Pulse Oximetry 89 03/29/24 15:54 Oxygen Delivery Method Room Air 03/29/24 15:54 Temperature 97.9 F 03/29/24 15:54 Pulse Rate 82 03/29/24 17:35 Respiratory Rate 03/29/24 15:54 Blood Pressure 104/52 L 03/29/24 17:05 Pulse Oximetry 100 03/29/24 17:35 Oxygen Delivery Method Room Air 03/29/24 15:54 Medications Administered Medications: Discontinued Medications Generic Name Dose Route Start Last Admin Trade Name Willq PRN Reason Stop Dose Admin Sodium Chloride 1,000 mls @ 1,000 mls/hr 03/29/24 17:15 03/29/24 18:13 0.9 % Sodium Chloride 1000 Ml IV 03/29/24 18:14 Infused .Q1H BRET Infusion Insulin Human Regular 10 unit 03/29/24 16:08 03/29/24 16:52 Insulin Regular, Human 100 Unit/Ml Vial IVP 03/29/24 16:09 10 unit ONCE ONE Administration Insulin Human Regular 10 unit 03/29/24 18:06 03/29/24 18:10 Insulin Regular, Human 100 Unit/Ml Vial IVP 03/29/24 18:07 10 unit ONCE ONE Administration Medical Decision Making MDM Narrative Medical decision making narrative: This patient came in because of high reading of glucose on her glucometer. Her initial reading here was 600. She states that she does check her glucose 3 or 4 times a day and for some reason her glucose is elevated today. She does not h ave any other complaints otherwise. An IV was established and labs are acquired. She did receive 10 units of regular insulin initially and her glucose was checked over the course of the next hour so and it did reduce eventually down to 420 roughly. I did give another 10 units of regular insulin and the patient is okay to go home. Other lab results do show some chronic issues including renal insufficiency. The patient did receive a L of normal saline intravenously. Her initial blood pressure was 125 for systolic value. At 1 point it was 104 triggering the administration of IV fluids. The patient has been resting comfortably and feels okay to return home. She will be able to resume her insulin therapy. Lab Data Labs: Lab Results 09/03/29/24 03/29/24 Range/Units 15:57 17:30 17:33 WBC 11.66 H (4.50-11.00) K/uL RBC 3.43 L (4.00-5.20) m/uL Hgb 9.8 L (12.0-16.0) gm/dL Hct 31.9 L (33.0-51.0) % MCV 93 (80-100) fL MCH 29 (26-34) pg MCHC 31 L (32-36) gm/dL RDW Coeff of Stefan 14.4 (11.5-15.5) % Plt Count 344 (140-440) K/uL Neut % (Auto) 83.3 H (42.0-72.0) % Lymph % (Auto) 9.2 L (20-44) % Swisher % (Auto) 6.2 (0.0-11.0) % Eos % (Auto) 0.9 (0.0-7.0) % Baso % (Auto) 0.2 (0.0-3.0) % Neut # (Auto) 9.70 H (1.7-7.0) K/uL Lymph # (Auto) 1.10 (0.90-2.90) K/uL Swisher # (Auto) 0.70 (0.00-0.90) K/UL Eos # (Auto) 0.10 (0.00-0.50) K/uL Baso # (Auto) 0.00 (0.00-0.30) K/uL Abs Immat Gran (auto) 0.00 (0.00-0.30) K/uL Imm/Tot Granulo (auto) 0.2 % Sodium 131 L (135-149) mmol/L Potassium 5.2 H (3.6-5.1) mmol/L Chloride 96 (96-114) mmol/L Carbon Dioxide 22 (20-32) mmol/L Anion Gap 13 (7-15) mEq/L BUN 48 H (7-30) mg/dL Creatinine 2.6 H (0.5-1.5) mg/dL Estimated Creat Clear 16.11 Estimated GFR 20 ml/min Glucose 553 H* (60-115) mg/dL Calcium 8.6 (8.4-10.6) mg/dL POC Glucose 600 H* 513 H* (60-115) mg/dl 03/29/24 Range/Units 18:12 WBC (4.50-11.00) K/uL RBC (4.00-5.20) m/uL Hgb (12.0-16.0) gm/dL Hct (33.0-51.0) % MCV (80-100) fL MCH (26-34) pg MCHC (32-36) gm/dL RDW Coeff of Stefan (11.5-15.5) % Plt Count (140-440) K/uL Neut % (Auto) (42.0-72.0) % Lymph % (Auto) (20-44) % Swisher % (Auto) (0.0-11.0) % Eos % (Auto) (0.0-7.0) % Baso % (Auto) (0.0-3.0) % Neut # (Auto) (1.7-7.0) K/uL Lymph # (Auto) (0.90-2.90) K/uL Swisher # (Auto) (0.00-0.90) K/UL Eos # (Auto) (0.00-0.50) K/uL Baso # (Auto) (0.00-0.30) K/uL Abs Immat Gran (auto) (0.00-0.30) K/uL Imm/Tot Granulo (auto) % Sodium (135-149) mmol/L Potassium (3.6-5.1) mmol/L Chloride (96-114) mmol/L Carbon Dioxide (20-32) mmol/L Anion Gap (7-15) mEq/L BUN (7-30) mg/dL Creatinine (0.5-1.5) mg/dL Estimated Creat Clear Estimated GFR ml/min Glucose (60-115) mg/dL Calcium (8.4-10.6) mg/dL POC Glucose 421 H* (60-115) mg/dl Discharge Plan Discharge Clinical Impression: Hyperglycemia due to diabetes mellitus Patient Disposition: Home, Self-Care Condition: Stable Additional Instructions: Continue current plans for management of blood glucose. Follow-up with primary physician to review medications. Return if worsening. Prescriptions: No Action atorvastatin 20 mg tablet 20 mg PO QPM torsemide 20 mg tablet 40 mg PO DAILY cetirizine 5 mg tablet 5 mg PO DAILY sennosides-docusate sodium [Stool Softener-Stimulant Laxat] 8.6-50 mg tablet 2 tab PO BID PRN omeprazole 20 mg capsule,delayed release(DR/EC) 20 mg PO DAILY metoprolol succinate 25 mg tablet extended release 24 hr 25 mg PO DAILY oxycodone 5 mg tablet 5 mg PO BID PRN duloxetine 60 mg capsule,delayed release(DR/EC) 60 mg PO DAILY pregabalin 50 mg capsule 50 mg PO HS Rx Instructions: WITH 100 MG DOSE = 150 MG QHS pregabalin 100 mg capsule 100 - 200 mg PO BID Rx Instructions: 200 MG IN AM AND 150 MG IN PM cholecalciferol (vitamin D3) 50 mcg (2,000 unit) capsule 50 mcg PO DAILY buprenorphine 5 mcg/hour patch weekly 1 patch transdermal Q7D polyethylene glycol 3350 [Miralax] 17 gram/dose powder 17 g PO DAILY PRN amlodipine 2.5 mg tablet 2.5 mg PO BID vitamin F26-bvexi acid 2,500-400 mcg tablet,disintegrating 1 tab PO DAILY levothyroxine 125 mcg tablet 125 mcg PO DAILY fluoxetine 10 mg capsule 10 mg PO DAILY cyanocobalamin (vitamin B-12) 1,000 mcg tablet 1,000 mcg PO DAILY Baqsimi 3 mg/actuation spray,non-aerosol 3 mg intranasal DIRECTED PRN naloxone [Narcan] 4 mg/actuation spray,non-aerosol 4 mg intranasal DIRECTED PRN insulin lispro [Humalog KwikPen Insulin] 100 unit/mL insulin pen 8 unit subcut TIDWM 30 Days 0RF acetaminophen 650 mg tablet extended release 1,300 mg PO Q8H Follow Up/Referrals: Barbara Valentin DO [Primary Care Provider] - Stand Alone Forms: [facility] Info Instructions
[2024-03-29 16:29] LABS: Glucose, Point-of-Care* 600 mg/dl (60-115)
[2024-03-29] MEDS: INSULIN REGULAR, HUMAN 100 UNIT/ML VIAL 10 UNIT IVP ×2 (16:52→18:10)
--- OUTSIDE RECORDS SUMMARY | 2024-03-29 17:09 | XMS_ITS | Encounter Summary ---
Author Organization [facility] Address [address] [place] [address] Care Team Providers Care Exploration Manager Name Role Phone Barbara Valentin DO Primary Care Provider [phone] Encounter Details Date Type Department Care Team (Late st Contact Info) Description 02/01/2024 Telephone [facility] [place] [address] [place] [address] Gabriel Hicks MD [address] [place] [address] Social History Tobacco Use Types [...] on filedocumented in this encounter Care Teams Exploration Manager Relationship Specialty Start Date End Date Barbara Valentin DO [address] [place] [address] PCP - General Family Medicine 09/22/23 documented as of this encounter
--- OUTSIDE RECORDS SUMMARY | 2024-03-29 17:09 | XMS_ITS | Encounter Summary ---
Author Organization [facility] [place] Address [address] [place] [address] Care Team Providers Care Family Practice Nurse Practitioner Name Role Phone Barbara Valentin DO Primary Care Provider [phone] Encounter Details Date Type Department Care Team (Late st Contact Info) Description 01/23/2024 Documentation Only [facility] [place] [address] [place] [address] Ronnell Kirby [address] [place] [address] Social History Tobacco Use Types [...] ORDERAB LES Performing Organization Address [facility]/ZIP Co de Phone Number [place] * (ABNORMAL) Creatine (01/17/2024) Creatine, Serum 1.28(H) [facility] GFR Calculated 47(L) [facility] Blood (Blood, Venous) 01/17/2024 Historical Provider MD LAB BLOOD ORDERAB LES Performing Organization Address [facility]/State/ZIP Co de Phone Number [place] * (ABNORMAL) Creatine (01/16/2024) Creatine, Serum 1.28(H) [facility] GFR Calculated 47(L) [facility] Blood (Blood, Venous) 01/16/2024 Historical Provider MD LAB BLOOD ORDERAB LES Performing Organization Address [facility] Co de Phone Number [facility] * (ABNORMAL) Creatine (01/15/2024) Creatine, Serum 1.71(H) [facility] GFR Calculated 34(L) [facility] Blood (Blood, Venous) 01/15/2024 Historical Provider MD LAB BLOOD ORDERAB LES Performing Organization Address [facility] Co de Phone Number [facility] * (ABNORMAL) Hemoglobin (01/15/2024) Hemoglobin 8.4(L) g/dL [facility] MCV 91.0 [facility] Blood (Blood, Venous) 01/15/2024 Historical Provider MD LAB BLOOD ORDERAB LES Performing Organization Address [facility] Co de Phone Number [...] ORDERAB LES Performing Organization Address [facility] Co de Phone Number [...] ORDERAB LES Performing Organization Address [facility] Co de Phone Number [...] ORDERAB LES Performing Organization Address [facility]/[place] de Phone Number [place] * (ABNORMAL) CBC [...] ORDERAB LES Performing Organization Address [facility] Co de Phone Number [...] on filedocumented in this encounter Care Teams Family Practice Nurse Practitioner Relationship Specialty Start Date End Date Barbara Valentin DO [address] [place] [address] PCP - General Family Medicine 09/22/23 documented as of this encounter
--- OUTSIDE RECORDS SUMMARY | 2024-03-29 17:09 | XMS_ITS | Encounter Summary ---
Author Organization [facility] Address [address] [place] [address] Care Team Providers Care Window Maker Name Role Phone Barbara Valentin DO Primary Care Provider [phone] Encounter Details Date Type Department Care Team (Late st Contact Info) Description 09/22/2023 Documentation Only [facility] [place] [address] [facility] [address] [place] [address] No, Pcp Social History Tobacco [...] on filedocumented in this encounter Care Teams Window Maker Relationship Specialty Start Date End Date Barbara Valentin [place] [address] [address] PCP - General Family Medicine 09/22/23 documented as of this encounter
--- OUTSIDE RECORDS SUMMARY | 2024-03-29 17:09 | XMS_ITS | Clinical Summary ---
Author Organization [facility] Address [address] [facility] [place] [address] Phone Care Team Providers Care Powder Coat Painter Name Role Phone Barbara Valentin DO Primary Care Provider [phone] Allergies Active Allergy Reactions Criticality Noted Date [...] One Pack) 3 MG/DOSE powder Inhale 1 [place] into affected nostril(s) each time if needed [...] Team Description 02/01/2024 Telephone [facility] [place] [address] [facility] [address] [place] [address] Gabriel Hicks MD 01/23/2024 Documentation Only [facility] [place] [address] [facility] [address] [place] [address] Ronnell Kirby 01/23/2024 Office Communication [facility] [place] [address] [facility] [address] [place] [address] Ronnell Kirby from Last 3 Months Immunizations [...] LAB BLOOD ORDERAB LES Performing Organization Address City/[facility]/ZIP Co de Phone Number [facility] * [...] BESSY from Last 3 Months Care Teams Powder Coat Painter Relationship Specialty Start Date End Date Barbara Valentin DO [address] [place] [address] PCP - General Family Medicine 09/22/23
--- OUTSIDE RECORDS SUMMARY | 2024-03-29 17:09 | XMS_ITS | Encounter Summary ---
Author Organization [facility] [place] Address [address] [place] [address] Care Team Providers Care Point Of Care Technician Name Role Phone Barbara Valentin DO Primary Care Provider [phone] Encounter Details Date Type Department Care Team (Late st Contact Info) Description 01/23/2024 Office Communication [facility] [place] [address] [place] [address] Ronnell Kirby [address] [place] [address] Social History Tobacco Use Types [...] on filedocumented in this encounter Care Teams Point Of Care Technician Relationship Specialty Start Date End Date Barbara Valentin DO [address] [facility] [place] [address] PCP - General Family Medicine 09/22/23 documented as of this encounter
--- OUTSIDE RECORDS SUMMARY | 2024-03-29 17:10 | XMS_ITS | Clinical Summary ---
Author Organization [facility] Address [place], [place] [address] Care Team Providers Care Director Print Name Role Phone Julio Ibrahim MD Unavailable Chuy Doss MD Unavailable Markel Strong MD Unavailable Nikolai Ibarra MD Unavailable [phone] Barbara Valentin Patricia DO Primary Care Provider Allergies Active Allergy [...] mellitus at risk of hypoglycemia Inhale 1 [place] into affected nostril(s) each time if needed for Severe Hypoglycemia. Roll on side and call 911 after administration. 2 Each 12/25/19 22 Active fluticasone (50 mcg per actuation) nasal solution (FLONASE)Indicati ons:Nasal congestion Inhale 1 [place] into affected nostril(s) once daily. Inhale 1 [place] in the nostril(s) once daily. 16 g [...] 2 04/20/20 Active continuous glucose monitor READER (NearVerseStyle Elli 2 [place])Indication s:Type 1 diabetes mellitus with other specified complication (HC) To be used to read blood sugars per wildlife control agent's directions. 1 Each 05/19/20 Active blood-glucose [...] be used to read blood sugars per wildlife control agent's directions. 6 Each 3 09/06/19 24 [...] Chronic, continuous use of opioids Inhale 1 [place] into affected nostril(s) each time if needed [...] Use dates: 02/21/24-03/21/24 60 Tablet 02/16/20 24 024 Discontinued(Re order (E-cancel not sent)) [...] agreement signed - 10/07/23 10/07/2023 Overview (10/07/2023): [facility] Noemí Dennis .................... 10/07/2023 4:39 [...] hypoxia which led to extended stay in group home care 07/2015- 05/2017 Hospitalized with ketoacidosis [...] post total right knee replacement 01/02/2015 06/10/2017 group home (current) use of anticoagulants 11/27/2013 12/28/2013 [...] Encounters Date Type Department Care Team Description 03/27/2024 Telephone [facility] [address] [place] [address] Barbara Valentin, DO Questions 03/16/2024 Refill [facility] [address] [place] [address] Toshia Hooks NP Refill Request 03/14/2024 10:30 AM CDT Home Care Visit [facility] [address] [place] [address] Geneva Sanchez RN SN - OASIS DISCHARGE 03/12/2024 Refill [facility] [address] [place] [address] Barbara Valentin, Refill Request (Pregabalin, Fluoxetine, Duloxetine) 03/06/2024 10:00 AM CDT Home Care Visit [facility] [address] [place] [address] Geneva Sanchez, RN SN - HOME VISIT 03/06/2024 9:15 AM CDT Home Care Visit [facility] [address] [place] [address] Alex Contreras [place] - HOME VISIT 03/03/2024 Home Care Visit [facility] [address] [place] [address] Nitza Riojas LISW CARE COORDINATION 02/28/2024 2:00 PM CDT Home Care Visit [facility] [address] [place] [phone] Shania Elaine, RN SN - HOME VISIT 02/28/2024 10:45 AM CDT Home Care Visit [facility] [address] [place] [phone] Fabiola Mathis [place] - HOME VISIT 02/25/2024 Home Care Visit [facility] [address] [place] [phone] Nitza Riojas LISW CARE COORDINATION 02/22/2024 3:00 PM CDT Home Care Visit [facility] [address] [place] [phone] Trini Hitchcock RN SN - HOME VISIT 02/22/2024 Home Care Visit [address] [phone] Dar Phillips, OT OT - DISCIPLINE DISCHARGE 02/21/2024 9:45 AM CDT Home Care Visit [place] [address] [place] [phone] Alex Contreras [place] - HOME VISIT 02/20/2024 Home Care Visit [address] [phone] Nitza Riojas LISW BOTTLING MACHINE OPERATOR - INITIAL ASSESSMENT 02/16/2024 Refill [facility] [address] [place] [address] Toshia Hooks NP Refill Request (oxyCODONE (ROXICODONE) 5 mg immediate release tablet ) 02/15/2024 3:45 PM CDT Home Care Visit [facility] [address] [place] [phone] Coleman Greene, PT PT - DISCIPLINE DISCHARGE 02/15/2024 11:00 AM CDT Home Care Visit [facility] [address] [place] [phone] Geneva Sanchez, LOS SN - HOME VISIT 02/14/2024 12:00 PM CDT Home Care Visit [facility] [address] [place] [address] Joi Moreno, VARELA OT - HOME VISIT 02/14/2024 8:15 AM CDT Home Care Visit [facility] [address] [place] [address] Fabiola Mathis [place] - HOME VISIT 02/10/2024 3:30 PM CDT Home Care Visit [facility] [address] [place] [address] Joi Moreno VARELA OT - HOME VISIT 02/10/2024 Home Care Visit [facility] [address] [place] [address] Nitza Riojas LISW BOTTLING MACHINE OPERATOR - CASE COMMUNICATION 02/09/2024 Refill [facility] [address] [place] [address] Barbara Valentin DO Refill Request (Duloxetine) 02/08/2024 3:00 PM CDT Home Care Visit [facility] [address] [place] [address] Veda Resendiz RN SN - WOUND/OSTOMY CHART CONSULT 02/08/2024 9:00 AM CDT Home Care Visit [facility] [address] [place] [address] Geneva Sanchez, LOS SN - HOME VISIT 02/08/2024 Telephone [facility] [address] [place] [address] Barbara Valentin DO Pharmacist Medication Management (MEDICATION CHANGE) 02/08/2024 Telephone [facility] [address], [place] [address] Geneva Sanchez, keno writer/runner List Update 02/07/2024 4:00 PM CDT Home Care Visit [facility] [address] [place] [phone] Joi Moreno VARELA OT - HOME VISIT 02/07/2024 9:30 AM CDT Home Care Visit [facility] [address] [place] [address] Kendal Serna, PT PT - HOME VISIT 02/07/2024 Telephone [facility] [address] [place] [address] Shaqra, Barbara Patricia, DO Refill Request (Insulin lispro pens) 02/04/2024 Refill [facility] [address] [place] [address] Shaqra, Barbara Patricia, DO Refill Request (Insulin Lispro) 02/03/2024 9:00 AM CDT Home Care Visit [facility] [address] [place] [address] Joi Moreno VARELA OT - HOME VISIT 02/02/2024 11:00 AM CDT Home Care Visit [facility] [address] [place] [address] Kendal Serna, PT PT - HOME VISIT 02/01/2024 4:00 PM CDT Home Care Visit [facility] [address] [place] [address] Joi Moreno VARELA OT - HOME VISIT 01/31/2024 9:30 AM CDT Home Care Visit [facility] [address] [place] [address] Fabiola Mathis [place] - HOME VISIT 01/31/2024 Home Care Visit [facility] [address] [place] [address] Oumou Burns, RN CARE COORDINATION 01/31/2024 Home Care Visit [facility] [address] [place] [address] Oumou Burns, RN CARE COORDINATION 01/30/2024 10:45 AM CDT Home Care Visit [facility] [address] [place] [address] Kendal Serna, PT PT - HOME VISIT 01/30/2024 9:00 AM CDT Home Care Visit [facility] [address] [place] [phone] Geneva Sanchez, LOS SN - INITIAL ASSESSMENT 01/25/2024 1:30 PM CDT Home Care Visit [facility] [address] [place] [phone] Coleman Greene, PT PT - HOME VISIT 01/25/2024 Travel 01/24/2024 1:00 PM CDT Home Care Visit [facility] [address] [place] [phone] Dar Phillips, OT OT - INITIAL ASSESSMENT 01/24/2024 9:30 AM CDT Home Care Visit [facility] [address] [place] [phone] Fabiola Mathis [place] - HOME VISIT 01/24/2024 Home Care Visit [facility] [address] [place] [phone] Narcisa Atkinson, RN CARE COORDINATION 01/23/2024 Home Care Visit [facility] [address] [place] [phone] Narcisa Atkinson, RN CARE COORDINATION 01/20/2024 Refill [facility] [address] [place] [address] Toshia Hooks NP Refill Request 01/18/2024 1:45 PM CDT Home Care Visit [facility] [address] [place] [phone] Kendal Serna, PT PT - OASIS START OF CARE 01/18/2024 10:30 AM CDT Phone Office Visit [facility] [address] [place] [address] Nikolai Ibarra MD 01/18/2024 Plan of Care Documentation [facility] [address] [place] [address] 01/18/2024 Patient Outreach [facility] [address] [place] [address] Maria R Ho, RN Primary RN Care Management; Hospital F/U (Lace 44) 01/18/2024 Travel 01/12/2024 9:13 PM CDT - 01/17/2024 5:23 PM CDT Hospital Encounter [facility] [address] [place] [address] Megan, MD Nedra Valverde, DO Chente Honeycutt, MD Dusty Manjarrez, MD Ricky Alston, Helder Hoover MD [facility] Hospitalists Of Opioid dependence, uncomplicated (HC) (Primary Dx); Nasal congestion; Chronic pain syndrome; Diabetic ketoacidosis without coma associated with type 1 diabetes mellitus (HC); 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, macular edema presence unspecified, unspecified laterality, unspecified proliferative retinopathy type (HC); Heel ulcer, right, with unspecified severity (HC) Discharge Disposition: [facility] 01/09/2024 Refill [facility] [address] [place] [address] Barbara Valentin DO Refill Request (Fluoxetine) 01/09/2024 Refill [facility] [address] [place] [address] Elian Humphrey MD Refill Request (Torsemide) 01/06/2024 4:00 PM CDT Office Visit [facility] [address] [place] [address] Toshia Hooks NP Follow Up; Pain (Multi source; was told by her Dairy Farmer she can ot use OTC Voltaren gel., which had been helping her O.A. pain (hands; wrists; shoulders; ) ) 01/06/2024 Travel 01/02/2024 Telephone [facility] [address] [place] [address] Barbara Valentin, DO Follow Up from Last 3 Months [...] Care Team (Late st Contact Info) Description 04/02/2024 2:10 PM CDT Office Visit [facility] [address] [place] [address] Barbara Valentin DO [address] [place] [address] [address] 04/02/2024 3:25 PM CDT Office Visit [facility] [address] [place] [address] Barbara Valentin, DO [address] [place] [address] 05/04/2024 3:00 PM CDT Office Visit [facility] [address] [place] [address] Barbara Valentin, DO [address] [place] [address] 05/04/2024 3:30 PM CDT Phone Office Visit [facility] [address] [place], [place] [phone] Nikolai Ibarra MD [address] [place] [address] Health Maintenance Due Date Last Done Comments [...] 03/18/2020, Additional history exists Fecal testing sDNA-FIT ([place] guard) for age 45-75 11/10/2024 11/10/2021 Pneumococcal series for age 6-64 (3 of 3 - PPSV23 or PCV20) 2026 08/17/2016, 08/14/2014, 07/04/2005, Additional history exists Lipids for age 45-75 04/28/2027 04/28/2022, 08/17/2019, 08/31/2018, Additional history exists Tdap Completed 08/25/2010 HIV for age 15-65 Completed 07/21/2015 Hepatitis C screening for ag e 18-79 Completed 02/16/2018 Medical Devices Implanted Type Area Button Cutter Device Identifier Shelf Expiration Date Model / Serial / Lot [id number] loderm 2x12mm [[id number]] Implanted:Qty: 1 on 08/08/2008 at [facility] Explanted:at [facility] (Quantity not on file) Stalkthis [id number]# / [id number] / Stem Compnt Primary 8mm Mini - [id number] Implanted:Qty: 1 on 03/17/2011 at [facility] Right: Shoulder BIOMET [id number]# / / [id number] Head Hum Bio-Mod [id number] - [id number] Implanted:Qty: 1 on 03/17/2011 at [facility] Right: Shoulder BIOMET [id number]# / / [id number] Base Glenoid Hybrid 4mm Sm - [id number] Implanted:Qty: 1 on 03/17/2011 at [facility] Right: Shoulder BIOMET [id number]# / / [id number] Cmnt 1/2 Dosehowmedica - [id number] Implanted:Qty: 1 on 03/17/2011 at [facility] Right: Shoulder [employer] 6188-1-01 0# / / [id number] Post Glenoid Hybrid Regenerex - [id number] Implanted:Qty: 1 on 03/17/2011 at [facility] Right: Shoulder BIOMET [id number] # / / [id number] Head Humeral 44x15 Co Cr Biomodular - [id number] Implanted:Qty: 1 on 07/12/2012 at [facility] Left: Shoulder BIOMET [id number]# / / [id number] Shoulder Stem Implanted:Qty: 1 on 07/12/2012 at [facility] Left: Shoulder [id number] / / [id number] Description:SHOULDER STEM Cmnt Bone 1/2 Dose[employer]medica - [id number] Implanted:Qty: 1 on 07/12/2012 at [facility] Left: Shoulder [employer] 6188-1-01 0# / / [id number] Post Glenoid Hybrid Regenerex - [id number] Implanted:Qty: 1 on 07/12/2012 at [facility] Left: Shoulder BIOMET [id number] # / / [id number] Base Glenoid Hybrid 4mm Sm - [id number] Implanted:Qty: 1 on 07/12/2012 at [facility] Left: Shoulder BIOMET [id number]# / / [id number] Procedures Procedure Name Priority Date/Time Associated Diagnosis [...] Timed 01/12/2024 9:38 PM CDT HEMOGLOBIN A1C MONITORING (POCT) RICHARD 01/12/2024 9:37 PM CDT CBC WITH [...] SCAN-CARDIAC STRIP 01/12/2024 9: 20 PM CDT XR MAMMO BILAT SCREENING Routine 04/28/2022 2:04 [...] HIV 1/2 Add On 07/21/2015 9:40 AM BUILDING CUSTODIAN LEG ASSEMBLER THIN PREP PAP SCREEN IMAGED Routine 08/17/2012 4:02 PM BUILDING CUSTODIAN Screening for malignant neoplasm of the cervix [...] - 100 mg/dL 01/17/2024 11:35 AM CDT [facility] Blood BLOOD SPECIMEN / Unknown 01/17/2024 11:27 AM CDT 01/17/2024 11:35 AM CDT Helder García MD [facility]STRY [facility] [address] [place] [address], * (ABNORMAL) CREATININE (01/17/2024 8:20 AM CDT) Only the most recent of3 resultswithin the time period is included. eGFR 47(L) >90 mL/min/1.7 3m2 01/17/2024 9:06 AM CDT [facility] Comment:As of 2021, eG FR is calculated by the CKD-EPI creatinine equation without race adjustment. ??eGFR can be influenced by muscle mass, exercise, and diet. ??The reported eGFR is an estimation only and is only applicable if the renal function is stable. CREATININE 1.28(H) 0.50 - 0.90 mg/dL 01/17/2024 9:06 AM CDT [facility] TR[facility] Blood BLOOD SPECIMEN / Unknown Non-Lab Venipuncture / Unknown 01/17/2024 8:20 AM CDT 01/17/2024 8:26 AM CDT Helder García MD CHEMISTRY Performing Organization Address [facility] Co de Phone Number [facility] [address] [place] [address], * PHOSPHORUS (01/17/2024 8:20 AM CDT) Only the most recent of5 resultswithin the time period is included. PHOSPHORUS 2.6 2.5 - 4.5 mg/dL 01/17/2024 9:06 AM CDT [facility] Blood BLOOD SPECIMEN / Unknown Non-Lab Venipuncture / Unknown 01/17/2024 8:20 AM CDT 01/17/2024 8:26 AM CDT Sarah Betancourt RN CHEMISTRY Performing Organization Address [facility] de Phone Number [facility] [address] [place] [address], * (ABNORMAL) BASIC METABOLIC PANEL (01/17/2024 8:20 AM CDT) Only the most recent of5 resultswithin the time period is included. SODIUM 139 136 - 145 mmol/L 01/17/2024 12:35 PM CDT [facility] TRAL [facility] POTASSIUM 3.9 3.5 - 5.1 mmol/L 01/17/2024 12:35 PM CDT [facility]AL [facility] CHLORIDE 103 98 - 107 mmol/L 01/17/2024 12:35 PM CDT [facility] CO2,TOTAL 24 22 - 29 mmol/L 01/17/2024 12:35 PM CDT [facility] ANION GAP 12 5 - 18 01/17/2024 12:35 PM CDT [facility] GLUCOSE 162(H) 70 - 99 mg/dL 01/17/2024 12:35 PM CDT [facility]AL [facility] CALCIUM 8.7(L) 8.8 - 10.2 mg/dL 01/17/2024 12:35 PM CDT [facility] BUN 17 8 - 23 mg/dL 01/17/2024 12:35 PM CDT [facility] CREATININE 1.31(H) 0.50 - 0.90 mg/dL 01/17/2024 12:35 PM CDT [facility] BUN/CREAT RATIO 13 10 - 20 12:35 PM CDT [facility] eGFR 46(L) >90 mL/min/1.7 3m2 01/17/2024 12:35 PM CDT [facility] Comment: As of [...] 8:26 AM CDT Helder García MD CHEMISTRY [facility] [address] [place] [address], * CLOSTRIDIOIDES DIFFICILE TOXIN PCR (01/16/2024 12:27 PM CDT) CLOSTRIDIUM DIFFICILE PCR Negative 01/16/2024 2:18 PM CDT [facility] PRESUMPTIVE NAP1 STRAIN Negative 01/16/2024 2:18 PM CDT [facility] Stool STOOL SPECIMEN / Unknown Non-Blood / Unknown 01/16/2024 12:27 PM CDT 01/16/2024 12:51 PM CDT Narrative [facility] - 01/16/2024 2:18 PM CDT The NAP1 (027 or BI) strain is a hypervirulent strain. Detection may be useful for epidemiological purposes. Helder García MD MICROBIOLOGY Performing Organization Address [facility] Co de Phone Number [facility] [address] [address], * SCAN CORRESP-EKG RESULTS (01/16/2024 9:07 AM CDT) Narrative 01/16/2024 9:07 AM CDT Ordered by an unspecified provider. Other Clinical Staff OTHER * (ABNORMAL) HEMOGLOBIN (01/16/2024 6:30 AM CDT) Only the most recent of2 resultswithin the time period is included. HEMOGLOBIN 8.9(L) 12.0 - 16.0 g/dL 01/16/2024 7:13 AM CDT [facility] MCV 91 80 - 100 fL 01/16/2024 7:13 AM CDT [facility] Blood BLOOD SPECIMEN / Unknown Venipuncture / Unknown 01/16/2024 6:30 AM CDT 01/16/2024 6:58 AM CDT Fabrizio Montano MD HEMATOLOGY Performing Organization Address City/[facility]/ZIP Co de Phone Number [facility] [address] [place] [address], * VANCOMYCIN (01/16/2024 6:30 AM CDT) Only the most recent of3 resultswithin the time period is included. VANCOMYCIN 13.0 ug/mL 01/16/2024 7:42 AM CDT [facility] Comment:No Reference Range D efined. DATE OF LAST DOSE,RANDOM Not Given 01/16/2024 7:42 AM CDT [facility] TRA LABORATORY TIME OF LAST DOSE,RANDOM Not Given 01/16/2024 7:42 AM CDT [facility] Blood BLOOD SPECIMEN / Unknown Venipuncture / Unknown 01/16/2024 6:30 AM CDT 01/16/2024 6:58 AM CDT Barbara Holcomb NP CHEMISTRY Performing Organization Address [facility]/ZIP Co de Phone Number [facility] [address] [address], [place] * (ABNORMAL) PLATELET COUNT (01/15/2024 6:02 AM CDT) PLATELET COUNT 166 140 - 440 thou/cu mm 01/15/2024 6:44 AM CDT [facility] MPV 11.2(H) 6.5 - 11.0 fL 01/15/2024 6:44 AM CDT [facility] Blood BLOOD SPECIMEN / Unknown Venipuncture / Unknown 01/15/2024 6:02 AM CDT 01/15/2024 6:26 AM CDT Fabrizio Montano MD HEMATOLOGY Performing Organization Address [facility]/ZIP Co de Phone Number [facility] [address] [address], [place] * WHITE BLOOD COUNT (01/15/2024 6:02 AM CDT) WHITE BLOOD COUNT 4.9 4.5 - 11.0 thou/cu mm 01/15/2024 6:44 AM CDT [facility] NRBC 0.0 % 01/15/2024 6:44 AM CDT [facility] ABS NRBC 0.0 thou /cu mm 01/15/2024 6:44 AM CDT [facility] RAL [facility]ORAT[facility] Blood BLOOD SPECIMEN / Unknown Venipuncture / Unknown 01/15/2024 6:02 AM CDT 01/15/2024 6:26 AM CDT Fabrizio Montaon MD HEMATOLOGY Performing Organization Address City/[facility]/ZIP Co de Phone Number [facility] [address] [address], [place] * Sodium AM (01/15/2024 6:02 AM CDT) SODIUM 142 136 - 145 mmol/L 01/15/2024 7:13 AM CDT [facility] Blood BLOOD SPECIMEN / Unknown Venipuncture / Unknown 01/15/2024 6:02 AM CDT 01/15/2024 6:27 AM CDT Fabrizio Montano MD CHEMISTRY Performing Organization Address [facility] Co de Phone Number [facility] [address] [place] [phone], [place] * Potassium AM (01/15/2024 6:02 AM CDT) Only the most recent of3 resultswithin the time period is included. POTASSIUM 4.4 3.5 - 5.1 mmol/L 01/15/2024 7:13 AM CDT [facility] Blood BLOOD SPECIMEN / Unknown Venipuncture / Unknown 01/15/2024 6:02 AM CDT 01/15/2024 6:27 AM CDT Fabrizio Montano MD CHEMISTRY Performing Organization Address [facility] Co de Phone Number [facility] [address] [place] [phone], [place] * SCAN-CARDIAC STRIP (01/14/2024 7:07 AM CDT) Scanner OTHER * (ABNORMAL) CBC W PLT NO DIFF (01/14/2024 5:28 AM CDT) WHITE BLOOD COUNT 8.5 4.5 - 11.0 thou/cu mm 01/14/2024 6:33 AM CDT [facility] TRAL LABORAT[facility] RED BLOOD COUNT 3.04(L) 4.00 - 5.20 mil/cu mm 01/14/2024 6:33 AM CDT [facility] HEMOGLOBIN 8.9(L) 12.0 - 16.0 g/dL 01/14/2024 6:33 AM T [facility] HEMATOCRIT 27.5(L) 33.0 - 51.0 % 01/14/2024 6:33 AM CDT [facility] MCV 91 80 - 100 fL 01/14/2024 6:33 AM T [facility] MCH 29.3 26.0 - 34.0 pg 01/14/2024 6:33 AM CDT [facility] MCHC 32.4 32.0 - 36.0 g/dL 01/14/2024 6:33 AM T [facility] RDW 14.4 11.5 - 15.5 % 01/14/2024 6:33 AM CDT [facility] PLATELET COUNT 198 140 - 440 thou/cu mm 01/14/2024 6:33 AM T [facility] MPV 11.4(H) 6.5 - 11.0 fL 01/14/2024 6:33 AM CDT [facility] NRBC 0.0 % 01/14/2024 6:33 AM T [facility] ABS NRBC 0.0 thou /cu mm 01/14/2024 6:33 AM T [facility] Blood BLOOD SPECIMEN / Unknown Non-Lab Venipuncture / Unknown 01/14/2024 5:28 AM CDT 01/14/2024 6:31 AM CDT Barbara Holcomb NP HEMATOLOGY [facility] [address] [place] [address], * (ABNORMAL) CALCIUM IONIZED HOSPITAL DRAW ONLY (01/14/2024 5:28 AM CDT) Only the most recent of3 resultswithin the time period is included. CALCIUM,IONIZE D 1.30(H) 1.15 - 1.27 mmol/L 01/14/2024 6:03 AM CDT [facility] TRAL LABORAT[facility] Blood BLOOD SPECIMEN / Unknown Non-Lab Venipuncture / Unknown 01/14/2024 5:28 AM CDT 01/14/2024 5:49 AM CDT Grace Eldridge MD CHEMISTRY [facility] LABORATORY [address] [place] [address], * ECHO TTE COMPLETE W CONTRAST (01/13/2024 3:56 PM CDT) Pathologist [facility] AORTIC VALVE MEAN PG 7 mmHg EJECTION FRACTION 64 % LVEDD 4.1 cm EJECTION FRACTION 60 - 65% Anatomical Region Laterality Modality Ultrasound 01/13/2024 2:53 PM CDT Narrative 01/13/2024 4:39 PM CDT ECHOCARDIOGRAM MIKAYLA KUHN ? Accession#: ?? [id number] : ?1960 63 years Study Date: ?? 01/13/2024 2:53:14 PM Gender: F ?BP: ? 114/44 mmHg Height: 152.00 cm ?BSA: ?1.93 m? ? ? Weight: 98.00 kg ? Tech: ? KBA ? Referring MD: BARBARA HOLCOMB Site: ? [facility] Reading Location: ANW IP Patient [...] documentation: 2 ml diluted Definity, lot #[id number], [facility] [place]# [id number] was administered peripherally to enhance visualization of all left ventricular segments. . This study was interpreted by an [facility] accredited facility. ??Final ?? Procedure Note Travon Blood MD - 01/13/2024 ECHOCARDIOGRAM MIKAYLA KUHN : 1960 63 years Study Date: 01/13/2024 2:53:14 PM Gender: F BP: 114/44 mmHg Height: 152.00 cm BSA: 1.93 m? ? ? Weight: 98.00 kg Tech: PASQUALE Referring MD: BARBARA HOLCOMB Site: [facility] Reading Location: ANW IP Patient [...] 1.63 cm? ? ? VTI 0.41 m EDMNUD (I) 1.61 cm? ? ? LVOT V [...] documentation: 2 ml diluted Definity, lot #[id number], [facility] [place]#[id number] was administered peripherally to enhance visualization of allleft ventricular segments. . This study was interpreted by an [facility] accredited facility. Final Barbara Holcomb SHELL REPRINT OPERATOR ECHO ORD * US ARTERIAL LOWER [...] 125 mmHg Left Brachial: 111 mmHg Right REFRIGERATOR ASSEMBLER: Noncompressible Right DPA: 115 mmHg (SAMUEL 0.92) Left REFRIGERATOR ASSEMBLER: Noncompressible Left DPA: Noncompressible SAMUEL: 1.0-1.4 - normal 0.9-0.99 - borderline 0.80-0.89 - mild 0.50-0.79 - moderate 0.30-0.49 - severe < 0.30 - critical RIGHT: SUBSTATION OPERATOR APPRENTICE PROX: 204 cm/sec; triphasic waveforms SUBSTATION OPERATOR APPRENTICE DIST: 138 cm/sec; triphasic waveforms PFA: 97 cm/sec; triphasic waveforms SFA PROX: 140, 111 cm/sec; triphasic waveforms SFA MID: 113, 74 cm/sec; triphasic waveforms SFA DIST: 107, 113 cm/sec; triphasic waveforms POP PROX: 105 cm/sec; triphasic waveforms POP DIST: 89 cm/sec; triphasic waveforms REFRIGERATOR ASSEMBLER: 32 cm/sec; triphasic waveforms KAITLYN: 58 cm/sec; triphasic waveforms DPA: 56 cm/sec; triphasic waveforms LEFT: SUBSTATION OPERATOR APPRENTICE PROX: 193 cm/sec; triphasic waveforms SUBSTATION OPERATOR APPRENTICE DIST: 152 cm/sec; triphasic waveforms PFA: 98 cm/sec; triphasic waveforms SFA PROX: 119, 109 cm/sec; triphasic waveforms SFA MID: 103, 102 cm/sec; triphasic waveforms SFA DIST: 103, 100 cm/sec; triphasic waveforms POP PROX: 124 cm/sec; triphasic waveforms POP DIST: 85 cm/sec; triphasic waveforms REFRIGERATOR ASSEMBLER: 169 cm/sec; triphasic waveforms KAITLYN: 91 cm/sec; [...] 125 mmHg Left Brachial: 111 mmHg Right REFRIGERATOR ASSEMBLER: Noncompressible Right DPA: 115 mmHg (SAMUEL 0.92) Left REFRIGERATOR ASSEMBLER: Noncompressible Left DPA: Noncompressible SAMUEL: 1.0-1.4 - normal 0.9-0.99 - borderline 0.80-0.89 - mild 0.50-0.79 - moderate 0.30-0.49 - severe < 0.30 - critical RIGHT: SUBSTATION OPERATOR APPRENTICE PROX: 204 cm/sec; triphasic waveforms SUBSTATION OPERATOR APPRENTICE DIST: 138 cm/sec; triphasic waveforms PFA: 97 cm/sec; triphasic waveforms SFA PROX: 140, 111 cm/sec; triphasic waveforms SFA MID: 113, 74 cm/sec; triphasic waveforms SFA DIST: 107, 113 cm/sec; triphasic waveforms POP PROX: 105 cm/sec; triphasic waveforms POP DIST: 89 cm/sec; triphasic waveforms REFRIGERATOR ASSEMBLER: 32 cm/sec; triphasic waveforms KAITLYN: 58 cm/sec; triphasic waveforms DPA: 56 cm/sec; triphasic waveforms LEFT: SUBSTATION OPERATOR APPRENTICE PROX: 193 cm/sec; triphasic waveforms SUBSTATION OPERATOR APPRENTICE DIST: 152 cm/sec; triphasic waveforms PFA: 98 cm/sec; triphasic waveforms SFA PROX: 119, 109 cm/sec; triphasic waveforms SFA MID: 103, 102 cm/sec; triphasic waveforms SFA DIST: 103, 100 cm/sec; triphasic waveforms POP PROX: 124 cm/sec; triphasic waveforms POP DIST: 85 cm/sec; triphasic waveforms REFRIGERATOR ASSEMBLER: 169 cm/sec; triphasic waveforms KAITLYN: 91 cm/sec; [...] 01/14/2024 4:57:16 PM (Electronically Signed) Freya Schafer SHELL REPRINT OPERATOR US * US RENAL AND BLADDER COMPLETE [...] CULTURE RESULT(A) 01/16/2024 2:[address] [facility] CULTURE 3+ Corynebacterium striatum 01/16/2024 2:[address] [facility] CULTURE 2+ Mixed oni present 01/16/2024 2:[address] [facility] GRAM STAIN No PMNs 01/16/2024 2:[address] [facility] GRAM STAIN 2+ RBCs 01/16/2024 2:44 PM CDT [facility] GRAM STAIN No Epithelial cells 01/15 2:44 PM CDT [facility] GRAM STAIN 2+ Gram Positive Bacilli 01/16/2024 2:44 PM CDT [facility] Other (Other) Non-Blood / Unknown 01/13/2024 11:49 AM CDT 01/13/2024 12:00 PM CDT Narrative [facility] - 01/16/2024 2:44 PM CDT Mixed oin; No Staphylococcus aureus, beta-Streptococcus, Streptococcus pneumoniae, or Pseudomonas aeruginosa isolated. Freya Schafer NP MICROBIOLOGY Performing Organization Address City/[facility]/ZIP Co de Phone Number [facility] [address] [place] [address], * ANAEROBIC CULTURE (01/13/2024 11:49 AM CDT) CULTURE No anaerobes isolated 01/19/2024 10:01 AM CDT [facility] TRAL LABORATORY Other (Other) Non-Blood / Unknown 01/13/2024 11:49 AM CDT 01/13/2024 12:00 PM CDT Freya Schafer NP MICROBIOLOGY Performing Organization Address City/[facility]/ZIP Co de Phone Number [facility] [address] [place] [address], * (ABNORMAL) Electrolytes Panel - DKA (01/13/2024 10:53 AM CDT) Only the most recent of3 resultswithin the time period is included. SODIUM 140 136 - 145 mmol/L 01/13/2024 11:36 AM CDT [facility] POTASSIUM 5.2(H) 3.5 - 5.1 mmol/L 01/13/2024 11:36 AM CDT [facility] CHLORIDE 107 98 - 107 mmol/L 01/13/2024 11:36 AM CDT [facility] CO2,TOTAL 21(L) 22 - 29 mmol/L 01/13/2024 11:36 AM CDT [facility] ANION GAP 12 5 - 18 01/13/2024 11:36 AM CDT [facility] Blood BLOOD SPECIMEN / Unknown Non-Lab Venipuncture / Unknown 01/13/2024 10:53 AM CDT 01/13/2024 11:01 AM CDT Ifeanyi Hernández RN CHEMISTRY Performing Organization Address [facility] Co de Phone Number [facility] [address] [place] [address], * SCAN-CARDIAC STRIP (01/13/2024 8:00 AM CDT) Scanner OTHER * MAGNESIUM (01/13/2024 4:22 AM CDT) Only the most recent of2 resultswithin the time period is included. MAGNESIUM 1.9 1.6 - 2.4 mg/dL 01/13/2024 5:07 AM CDT [facility] Blood BLOOD SPECIMEN / Unknown Non-Lab Venipuncture / Unknown 01/13/2024 4:22 AM CDT 01/13/2024 4:41 AM CDT Ifeanyi Hernández RN CHEMISTRY Performing Organization Address [facility] Co de Phone Number [facility] [address] [place] [address], [place] * (ABNORMAL) Serum Glucose - DKA (01/13/2024 1:52 AM CDT) Only the most recent of2 resultswithin the time period is included. Pathologist [facility] GLUCOSE,RANDOM 459(H) 70 - 139 mg/dL 01/13/2024 2:46 AM CDT [facility] Blood BLOOD SPECIMEN / Unknown Non-Lab Venipuncture / Unknown 01/13/2024 1:52 AM CDT 01/13/2024 2:03 AM CDT Emily Guzman MD CHEMISTRY Performing Organization Address City/[facility]/ZIP Co de Phone Number [facility] [address] [address], * (ABNORMAL) TROPONIN T (HS) ONE TIME (01/12/2024 11:39 PM CDT) [facility] TROPONIN T HS 45(H) 6-10 ng/L ng/L 01/13/2024 12:22 AM CDT [facility] Blood BLOOD SPECIMEN / Unknown Non-Lab Venipuncture / Unknown 01/12/2024 11:39 PM CDT 01/12/2024 11:45 PM CDT Emily Guzman MD CHEMISTRY Performing Organization Address City/[facility]/ZIP Co de Phone Number [facility] [address] [address], [place] * 12 Lead EKG (01/12/2024 10:16 PM CDT) [facility] Interpretation Normal sinus rhythm Left axis deviation Abnormal ECG When compared with ECG of 02-Jan-2019 02:01, Nonspecific T wave abnormality now evident in Lateral leads BEYOND NOW Ventricular Rate 78 BPM BEYOND NOW Atrial Rate 78 BPM BEYOND NOW P-R Interval 160 ms BEYOND NOW QRS Duration 82 ms BEYOND NOW QT 400 ms BEYOND NOW QTc 456 ms BEYOND NOW P [place] 72 degrees BEYOND NOW R [place] -31 degrees BEYOND NOW T [place] 69 degrees BEYOND NOW 01/12/2024 10:1 6 PM CDT 01/13/2024 8:20 PM CDT Emily Guzman MD EKG ORD BEYOND NOW [place], [place] * MRSA/SA PCR (01/12/2024 10:07 PM CDT) MRSA DNA PCR Negative Negative 01/12/2024 11:33 PM CDT [facility]- NTRAL LABORATORY STAPHYLOCOCCUS AUREUS PCR Negative Negative 01/12/2024 11:[address] [facility] Other SPECIMEN FROM INTERNAL NOSE / Unknown Non-Blood / Unknown 01/12/2024 10:07 PM CDT 01/12/2024 10:13 PM CDT Narrative [facility] - 01/12/2024 11:33 PM CDT Test result does not preclude MRSA or SA nasal colonization. Chaparro Sneed DO MICROBIOLOGY [facility] [address] [place] [address], * (ABNORMAL) Urine Culture (01/12/2024 10:07 PM CDT) CULTURE RESULT(A) 01/16/2024 6:58 AM CDT [facility] TRAL LABORATORY CULTURE 10,000-50,000 CFU/mL Proteus mirabilis 01/16/2024 6:58 AM CDT [facility] TRAL LABORATORY CULTURE 50,000-100,000 CFU/mL Danita albicans 01/16/2024 6:58 AM CDT [facility] TRAL LABORATORY Urine URINE SPECIMEN [...] Guzman MD MICROBIOL OGY Performing Organization Address City/[facility] Co de Phone Number [facility] [address] * Blood Culture (01/12/2024 9:40 PM CDT) Only the most recent of2 resultswithin the time period is included. CULTURE No Growth. 01/16/2024 11:23 PM CDT [facility] Blood BLOOD SPECIMEN / Unknown Venipuncture / Unknown 01/12/2024 9:40 PM CDT 01/12/2024 9:[address] [facility] - 01/16/2024 11:23 PM CDT Low volume blood culture received; possible false negative culture. Emily Guzman MD MICROBIOL OGY Performing Organization Address City/[facility] Co de Phone Number [facility] [address] [address], * (ABNORMAL) TROPONIN T(HS) ACUTE W/2HR REFLEX (01/12/2024 9:37 PM CDT) [facility] TROPONIN T HS 47(H) 6-10 ng/L ng/L 01/12/2024 10:16 PM CDT [facility] Blood BLOOD SPECIMEN / Unknown Non-Lab Venipuncture / Unknown 01/12/2024 9:37 PM CDT 01/12/2024 9:46 PM CDT [facility]-CENTRAL LABORATORY - 01/12/2024 10:16 PM CDT hs-cTnT [...] department patient population. Emily Guzman MD CHEMISTRY [facility] [address] [place] [address], * (ABNORMAL) CBC WITH AUTO DIFFERENTIAL (01/12/2024 9:37 PM CDT) WHITE BLOOD COUNT 14.9(H) 4.5 - 11.0 thou/cu mm 01/12/2024 9:54 PM CDT [facility] TRAL LABORATORY RED BLOOD COUNT 3.61(L) 4.00 - 5.20 mil/cu mm 01/12/2024 9:54 PM CDT [facility] TRAL LABORATORY HEMOGLOBIN 10.5(L) 12.0 - 16.0 g/dL 01/12/2024 9:54 PM CDT [facility] TRAL LABORATORY HEMATOCRIT 32.6(L) 33.0 - 51.0 % 01/12/2024 9:54 PM CDT [facility] TRAL LABORATORY MCV 90 80 - 100 fL 01/12/2024 9:54 PM CDT [facility] TRAL LABORATORY MCH 29.1 26.0 - 34.0 pg 01/12/2024 9:54 PM CDT [facility] TRAL LABORATORY MCHC 32.2 32.0 - 36.0 g/dL 01/12/2024 9:54 PM CDT [facility] TRAL LABORATORY RDW 13.2 11.5 - 15.5 % 01/12/2024 9:54 PM CDT [facility] TRAL LABORATORY PLATELET COUNT 273 140 - 440 thou/cu mm 01/12/2024 9:54 PM CDT [facility] TRAL LABORATORY MPV 11.0 6.5 - 11.0 fL 01/12/2024 9:54 PM CDT [facility] TRAL LABORATORY NRBC 0.0 % 01/12/2024 9:54 PM CDT [facility] TRAL LABORATORY ABS NRBC 0.0 thou /cu mm 01/12/2024 9:54 PM CDT [facility] TRAL LABORATORY % NEUT 80.3 % 01/12/2024 9:54 PM CDT [facility] TRAL LABORATORY % LYMPH 9.6 % 01/12/2024 9:54 PM CDT [facility] TRAL LABORATORY % MONO 9.2 % 01/12/2024 9:54 PM CDT [facility] TRAL LABORATORY % EOS 0.1 % 01/12/2024 9:54 PM CDT [facility] TRAL LABORATORY % BASO 0.1 % 01/12/2024 9:54 PM CDT [facility] TRAL LABORATORY % IMMATURE GRAN (METAS,MYELOS,WA OS) 0.7 % 01/12/2024 9:54 PM CDT [facility] TRAL LABORATORY ABSOLUTE NEUTROPHILS 12.0(H) 1.7 - 7.0 thou/cu mm 01/12/2024 9:54 PM CDT [facility] TRAL LABORATORY ABSOLUTE LYMPHOCYTES 1.4 0.9 - 2.9 thou/cu mm 01/12/2024 9:54 PM CDT [facility] TRAL LAB[facility]ATORY ABSOLUTE MONOCYTES 1.4(H) <0.9 thou/cu mm 01/12/2024 9:54 PM CDT [facility] TRAL LABORATORY ABSOLUTE EOSINOPHILS 0.0 <0.5 thou/cu mm 01/12/2024 9:54 PM CDT [facility] TRAL LABORATORY ABSOLUTE BASOPHILS 0.0 <0.3 thou/cu mm 01/12/2024 9:54 PM CDT [facility] TRAL LABORATORY ABSOLUTE IMMATURE GRANULOCYTES(MET ,MYELOS,PROS) 0.1 <0.3 thou/cu mm 01/12/2024 9:54 PM CDT [facility] TRAL LABORATORY Blood BLOOD SPECIMEN / Unknown Non-Lab Venipuncture / Unknown 01/12/2024 9:37 PM CDT 01/12/2024 9:46 PM CDT Emily Guzman MD [facility]OLOG Y [facility] [address] [place] [id number], * (ABNORMAL) BLOOD GAS,VENOUS (01/12/2024 9:37 PM CDT) PH, VENOUS 7.25(L) 7.32 - 7.43 01/12/2024 9:52 PM CDT [facility] TRAL LABORATORY PCO2, VENOUS 44 41 - 51 mmHg 01/12/2024 9:52 PM CDT [facility] TRAL LAB[facility]ATORY PO2, VENOUS 48(H) 35 - 40 mmHg 01/12/2024 9:52 PM CDT [facility] TRAL LAB[facility]ATORY HCO3,VENOUS 19(L) 22 - 29 mmol/L 01/12/2024 9:52 PM CDT [facility] BASE EXCESS, VENOUS, POCT -7.7(L) -2.0 - 3.0 01/12/2024 9:52 PM CDT [facility] O2 SATURATION, VENOUS 85(H) 70 - 75 % 01/12/2024 9:52 PM CDT [facility] INSPIRED O2 21 01/12/2024 9:52 PM CDT [facility] TRAL LABORATORY Comment:Unit of Measure: Lit ers (L) if <=20; Percent (%) if >20 PATIENT TEMPERATURE 36.9 Degrees C 01/12/2024 9:52 PM CDT [facility] TRAL LABORATORY Blood VENOUS BLOOD SPECIMEN / Unknown Non-Lab Venipuncture / Unknown 01/12/2024 9:37 PM CDT 01/12/2024 9:46 PM CDT Emily Guzman MD CHEMISTRY [facility] [address] [place] [id number], * Protime - INR (01/12/2024 9:37 PM CDT) INR 1.0 <1.3 01/12/2024 9:56 PM CDT [facility] PROTIME 11.5 10.3 - 12.3 sec 01/12/2024 9:56 PM CDT [facility] Blood BLOOD SPECIMEN / Unknown Non-Lab Venipuncture / Unknown 01/12/2024 9:37 PM CDT 01/12/2024 9:46 PM CDT Narrative [facility] - 01/12/2024 9:56 PM [...] on UFH. Emily Guzman MD HEMATOLOG Y [facility] [address] [place] [id number], * (ABNORMAL) HEMOGLOBIN A1C MONITORING (POCT) (01/12/2024 9:37 PM CDT) HEMOGLOBIN A1C MONITORING (POCT) 9.3(H) <=6.4 % 01/14/2024 10:29 AM CDT [facility] TRAL LABORATORY Blood BLOOD SPECIMEN / Unknown Non-Lab Venipuncture / Unknown 01/12/2024 9:37 PM CDT 01/12/2024 9:46 PM CDT Narrative [facility] - 01/14/2024 10:29 AM [...] Barbara Holcomb NP CHEMISTRY Performing Organization Address [facility]/State/ZIP Co de Phone Number [facility] [address] [place] [address], * (ABNORMAL) Hepatic Function Panel (01/12/2024 9:37 PM CDT) [facility] ALBUMIN 3.2(L) 4.0 - 4.9 g/dL 01/12/2024 10:16 PM CDT [facility] TRAL LABORATORY PROTEIN,TOTAL 6.4 6.0 - 8.0 g/dL 01/12/2024 10:16 PM CDT [facility] TRAL LABORATORY BILIRUBIN,TOTAL 0.2 0.0 - 1.2 mg/dL 01/12/2024 10:16 PM CDT [facility] TRAL LABORATORY BILIRUBIN,DIRECT <0.2 0.0 - 0.3 mg/dL 01/12/2024 10:16 PM CDT [facility] TRAL LABORATORY BILIRUBIN,INDIRE CT 01/12/2024 10:16 PM CDT [facility] TR[facility] LAB[facility]ATORY Comment:Unable to calculate, Direct Bili <0.2 ALK PHOSPHATASE 122(H) 35 - 104 IU/L 01/12/2024 10:16 PM CDT [facility] TRAL LABORATORY ALT (SGPT) 21 10 - 35 IU/L 01/12/2024 10:16 PM CDT [facility] LAB[facility] AST (SGOT) 20 10 - 35 IU/L 01/12/2024 10:16 PM CDT [facility] TR[facility] LAB[facility]ORY Blood BLOOD SPECIMEN / Unknown Non-Lab Venipuncture / Unknown 01/12/2024 9:37 PM CDT 01/12/2024 9:46 PM CDT Emily Guzman MD CHEMISTRY [facility]AL LABORATORY [address] [place] [address], * SCAN-CARDIAC STRIP (01/12/2024 9:20 PM CDT) [...] health care provider. XR MAMMO BILAT SCREENING [[id number]] CLINICAL HISTORY: ??This is an asymptomatic 61 y.o. patient. INDICATION FOR EXAM: Mammogram Screening. TECHNIQUE: CC & MLO views were obtained. ??This study was evaluated with the assistance of Computer-Aided Detection. COMPARISON FILM: Yes [facility]02[facility]18 [facility] FINDINGS: ??The breasts are extremely dense, which lowers the sensitivity of mammography. There are no dominant masses, suspicious micro calcifications or areas of architectural distortion. Shania Montiel MD MAMMO * LIPID PANEL W REFLEX MEASURED LDL (04/28/2022 1:44 PM CDT) CHOLESTEROL,TOTAL 139 100 - 199 mg/dL 04/30/2022 6:25 PM CDT [facility] TRAL LABORATORY TRIGLYCERIDES 141 <150 mg/dL 04/30/2022 6:25 PM CDT [facility] HDL CHOLESTEROL 42 >40 mg/dL 6:25 PM CDT [facility] TRAL LABORATORY NON-HDL CHOLESTEROL 97 <145 mg/dl 04/30/2022 6:25 PM CDT [facility] TRAL LABORATORY CHOL/HDL RATIO 3.31 <4.50 04/30/2022 6:25 PM CDT [facility] TR[facility] LAB[facility] LDL CHOLESTEROL 69 <=130 mg/dL 04/30/2022 6:25 PM CDT [facility] LAB[facility] VLDL CHOLESTEROL 28 <=30 mg/dL 04/30/2022 6:25 PM CDT [facility] TRAL LABORATORY PROVIDER ORDERED STATUS RANDOM 04/30/2022 6:25 PM CDT [facility] TR[facility] LAB[facility]ORY Blood BLOOD SPECIMEN / Unknown Venipuncture / Unknown 04/28/2022 1:44 PM CDT 04/28/2022 1:45 PM CDT Shania Montiel MD CHEMISTRY Performing Organization Address City/[facility]/ZIP Co de Phone Number [facility] [address] [place] [address], [place] * FECAL DNA (AKA COLOGUARD) (11/10/2021 1:00 PM CDT) Shania Montiel MD COMMUNICATION ORD * ANTI HCV [[id number]] (02/16/2018 4:20 PM CDT) HEPATITIS C ANTIBODY Non-React alex Non-React alex 02/17/2018 2:48 PM CDT [facility] TRAL LABORATORY Comment:Antibodies to HCV no t detected; does not exclude the possibility of exposure to HCV. Blood BLOOD SPECIMEN / Unknown Butterfly / Unknown 02/16/2018 4:20 PM CDT 02/16/2018 4:20 PM CDT Coleman Plata MD SEND OUTS [facility] [address] [place] [id number], [place] * HIV 1&2 TODAY (07/21/2015 9:40 AM BUILDING CUSTODIAN) HIV-1/HIV-2 ANTIBODY Non-Reacti ve Non-Reacti ve 07/21/2015 10:31 AM BUILDING CUSTODIAN [facility] TRAL LABORATORY Blood specimen (specimen) BLOOD SPECIMEN / Unknown Venipuncture / Unknown 07/21/2015 9:40 AM BUILDING CUSTODIAN 07/21/2015 9:47 AM BUILDING CUSTODIAN Narrative [facility] LAB[facility] - 07/21/2015 10:31 AM BUILDING CUSTODIAN HIV-1 p24 and HIV-1/HIV-2 Ab not detected Kait Morales DO SEND OUTS [facility] [address] [place] [address], [place] * LEG [employer]SEM[employer]ER THIN PREP PAP SCREEN IMAGED (08/17/2012 4:02 PM BUILDING CUSTODIAN) Pathologist [facility] CYTOLOGY CYTOPATHOLOGY REPORT [facility] [employer] Status: Final Status ?[id number] CLINICAL INFORMATION Last Date of LMP ? :07/03/2012 Last Pap Date ?:02/01/2011 Last Pap Result ?:NIL ABN Garrison/Bx Past 5 YRS :None Hormone Usage ?:BCP/OCP/Patch/R ing Menstrual Status ? :Regular Periods Garrison/Bx done today ? 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, receiving hemodialysis, has chronic open [...] 8:01 PM 07/15/2012 6:55 PM Care Teams Director Print Relationship Specialty Start Date End Date Barbara Valentin DO [address] [place] [address] PCP - General Family Practice 11/15/22 Julio Ibrahim MD [address] [place] [address] Surgery - Orthopedics 02/01/11 Chuy Doss MD [address] [place] [address] Surgery - Vascular 02/01/11 Markel Strong MD [address] [place] [address] Provider Family Practice 08/08/20 Nikolai Ibarra MD [address] [place] [address] Endocrinology 09/07/22 Suad Ng/ [employer] News Library Director 07/14/17 [facility] Home Health Nurse 07/01/17 [facility] [employer]OTH MEAS[employer]ER Services Home Health Aide 07/14/17 [facility]/ Ally Christianson [address] [place] [address] News Library Director 07/07/17
[2024-03-29] MEDS: 0.9 % SODIUM CHLORIDE 1000 ml 1,000 ML IV (17:12)
[2024-03-29 17:39] LABS: Basophils Percent Auto 0.2 % (0.0-3.0); Eosinophils Percent Auto 0.9 % (0.0-7.0); Hematocrit 31.9 % (33.0-51.0); Hemoglobin* 9.8 gm/dL (12.0-16.0); Immature Granulocytes Pct Auto 0.2 %; Lymphocytes Percent Auto 9.2 % (20-44); Mean Corpuscular HGB Conc 31 gm/dL (32-36); Mean Corpuscular Hemoglobin 29 pg (26-34); Mean Corpuscular Volume 93 fL (80-100); Monocytes Percent Auto 6.2 % (0.0-11.0); Neutrophils Percent Auto 83.3 % (42.0-72.0); Platelet Count* 344 K/uL (140-440); RDW Coefficient of Variation % 14.4 % (11.5-15.5); Red Blood Count 3.43 m/uL (4.00-5.20); White Blood Count* 11.66 K/uL (4.50-11.00)
[2024-03-29 17:39] LABS: Glucose, Point-of-Care* 513 mg/dl (60-115)
[2024-03-29 17:47] LABS: Slide Review Reflex No
[2024-03-29 17:56] LABS: Chloride* 96 mmol/L (96-114); Potassium* 5.2 mmol/L (3.6-5.1); Sodium* 131 mmol/L (135-149)
[2024-03-29 17:59] LABS: Creatinine* 2.6 mg/dL (0.5-1.5); Est. Creatinine Clearance* 16.11; Estimated Glomerular Filt Rate 20 ml/min
[2024-03-29 18:00] LABS: Anion Gap 13 mEq/L (7-15); Blood Urea Nitrogen* 48 mg/dL (7-30); Calcium* 8.6 mg/dL (8.4-10.6); Carbon Dioxide* 22 mmol/L (20-32)
[2024-03-29 18:01] LABS: Glucose* 553 mg/dL (60-115)
[2024-03-29 18:16] LABS: Glucose, Point-of-Care* 421 mg/dl (60-115)
[2024-03-29 19:11] LABS: Glucose, Point-of-Care* 366 mg/dl (60-115)
== END 2024-03-29 19:12 | disposition home or self-care (01) ==
PROVIDERS: Emergency Provider Emergency Medicine Emergency Medical Services; PCP Family Medicine; Visit Provider Emergency Medicine Emergency Medical Services
DX: E11.65 Type 2 diabetes mellitus with hyperglycemia (principal)
CPT/HCPCS: 36415; 80048; 82947; 82962; 85025; 96361; 96374; 96376; 99284; A0425; A0429; J7030

== ENCOUNTER 2024-03-30 03:56 | Outpatient (CLI) | payer OTHER, SELFPAY ==
--- OUTSIDE RECORDS SUMMARY | 2024-04-04 00:40 | XMS_ITS | Encounter Summary ---
Author Organization [facility] Address [address] [place] [address] Care Team Providers Care Supervisor [employer] Name Role Phone Barbara Valentin DO Primary Care Provider [phone] Encounter Details Date Type Department Care Team (Late st Contact Info) Description 01/23/2024 Office Communication [facility] [place] [address] [place] [address] Ronnell Kirby [address] [place] [address] Social History Tobacco Use Types [...] filedocumented in this encounter Care Teams Supervisor [employer] Relationship Specialty Start Date End Date Barbara Valentin DO Roxy Calderon [facility] [place] [address] PCP - General Family Medicine 09/22/23 documented as of this encounter
--- OUTSIDE RECORDS SUMMARY | 2024-04-04 00:40 | XMS_ITS | Encounter Summary ---
Author Organization [facility] [place] [place] Address [address] [place] [address] Care Team Providers Care Forensic Psychologist Name Role Phone Barbara Valentin DO Primary Care Provider [phone] Encounter Details Date Type Department Care Team (Late st Contact Info) Description 02/01/2024 Telephone [facility] [place] [address] [place] [address] Gabriel Hicks MD [address] [place] [address] Social History Tobacco Use Types [...] on filedocumented in this encounter Care Teams Forensic Psychologist Relationship Specialty Start Date End Date Barbara Valentin DO [address] [place] [address] PCP - General Family Medicine 09/22/23 documented as of this encounter
--- OUTSIDE RECORDS SUMMARY | 2024-04-04 00:40 | XMS_ITS | Clinical Summary ---
Author Organization [facility] [place] [place] Address [address] [facility] [place] [address] Phone Care Team Providers Care Sas Developer Name Role Phone Barbara Valentin DO Primary Care Provider [phone] Allergies Active Allergy Reactions Criticality Noted Date [...] One Pack) 3 MG/DOSE powder Inhale 1 [place] into affected nostril(s) each time if needed [...] Team Description 02/01/2024 Telephone [facility] [place] [address] [facility] [address] [place] [address] Gabriel Hicks MD 01/23/2024 Documentation Only [facility] [place] [address] [facility] [address] [place] [address] Ronnell Kirby 01/23/2024 Office Communication [facility] [place] [address] [facility] [address] [place] [address] Ronnell Kirby from Last 3 Months Immunizations [...] Performing Organization Address City/[facility]/ZIP Co de Phone Number [place] * (ABNORMAL) [...] BESSY from Last 3 Months Care Teams Sas Developer Relationship Specialty Start Date End Date Barbara Valentin DO [address] [place] [address] PCP - General Family Medicine 09/22/23
--- OUTSIDE RECORDS SUMMARY | 2024-04-04 00:40 | XMS_ITS | Encounter Summary ---
Author Organization [facility] Address [address] [place] [address] Care Team Providers Care Ocean Export Agent Name Role Phone Barbara Valentin DO Primary Care Provider [phone] Encounter Details Date Type Department Care Team (Late st Contact Info) Description 09/22/2023 Documentation Only [facility] [place] [address] [facility] [address] [place] [address] No, Pcp Social History Tobacco [...] on filedocumented in this encounter Care Teams Ocean Export Agent Relationship Specialty Start Date End Date Barbara Valentin [place] [address] PCP - General Family Medicine 09/22/23 documented as of this encounter
--- OUTSIDE RECORDS SUMMARY | 2024-04-04 00:40 | XMS_ITS | Encounter Summary ---
Author Organization [facility] Address [address] [place] [address] Care Team Providers Care Risk Modeler Name Role Phone Barbara Valentin DO Primary Care Provider [phone] Encounter Details Date Type Department Care Team (Late st Contact Info) Description 01/23/2024 Documentation Only [facility] [place] [address] [place] [address] Ronnell Kirby [address] [place] [address] Social History Tobacco Use Types [...] LAB BLOOD ORDERAB LES Performing Organization Address [facility]/ZIP Co de Phone Number [place] * (ABNORMAL) Creatine (01/17/2024) Creatine, Serum 1.28(H) [place] GFR Calculated 47(L) [place] Blood (Blood, Venous) 01/17/2024 Historical Provider MD LAB BLOOD ORDERAB LES Performing Organization Address [facility]/State/ZIP Co de Phone Number [place] * (ABNORMAL) Creatine (01/16/2024) Creatine, Serum 1.28(H) [place] GFR Calculated 47(L) [place] Blood (Blood, Venous) 01/16/2024 Historical Provider MD LAB BLOOD ORDERAB LES Performing Organization Address [facility] Co de Phone Number [place] * (ABNORMAL) Creatine (01/15/2024) Creatine, Serum 1.71(H) [place] GFR Calculated 34(L) [place] Blood (Blood, Venous) 01/15/2024 Historical Provider MD LAB BLOOD ORDERAB LES Performing Organization Address [facility] Co de Phone Number [place] * (ABNORMAL) Hemoglobin (01/15/2024) Hemoglobin 8.4(L) g/dL [place] MCV 91.0 [place] Blood (Blood, Venous) 01/15/2024 Historical Provider MD LAB BLOOD ORDERAB LES Performing Organization Address [facility] Co de Phone Number [...] LAB BLOOD ORDERAB LES Performing Organization Address [facility] Co de Phone Number [place] * (ABNORMAL) CBC (01/14/2024) WBC 8.5 K/uL [facility] Red Blood Cell Count 3.04(L) [place] Hemoglobin 8.9(L) g/dL [facility] Hematocrit 27.5(L) % [place] MCV 91 [place] MCH 29.3 [place] MCHC 32.4 [place] RDW 14.4 [place] Platelet Count 198 [place] MPV 11.4(H) [place] Blood (Blood, Venous) 01/14/2024 Historical Provider MD LAB BLOOD ORDERAB LES Performing Organization Address [facility] Co de Phone Number [...] LAB BLOOD ORDERAB LES Performing Organization Address [facility] de Phone Number [place] * (ABNORMAL) CBC [...] LAB BLOOD ORDERAB LES Performing Organization Address [facility] Co de Phone Number [...] on filedocumented in this encounter Care Teams Risk Modeler Relationship Specialty Start Date End Date Barbara Valentin DO [address] [place] [address] PCP - General Family Medicine 09/22/23 documented as of this encounter
--- OUTSIDE RECORDS SUMMARY | 2024-04-04 00:41 | XMS_ITS | Clinical Summary ---
Author Organization [facility] Address [place], [place] [address] Care Team Providers Care Inspector Insulation Name Role Phone Julio Ibrahim MD Unavailable [phone] Chuy Doss MD Unavailable [phone] Markel Strong MD Unavailable Nikolai Ibarra MD Unavailable [phone] Barbara Valentin Patricia DO Primary Care [...] mellitus at risk of hypoglycemia Inhale 1 [place] into affected nostril(s) each time if needed for Severe Hypoglycemia. Roll on side and call 911 after administration. 2 Each 12/25/19 22 Active fluticasone (50 mcg per actuation) nasal solution (FLONASE)Indicati ons:Nasal congestion Inhale 1 [place] into affected nostril(s) once daily. Inhale 1 [place] in the nostril(s) once daily. 16 g [...] 2 04/20/20 Active continuous glucose monitor READER (Planet8Style Elli 2 [place])Indication s:Type 1 diabetes mellitus with other specified complication (HC) To be used to read blood sugars per straightedge worker's directions. 1 Each 05/19/20 Active blood-glucose meterIndications: [...] be used to read blood sugars per straightedge worker's directions. 6 Each 3 09/06/19 24 Active [...] Chronic, continuous use of opioids Inhale 1 [place] into affected nostril(s) each time if needed [...] agreement signed - 10/07/23 10/07/2023 Overview (10/07/2023): [facility] Noemí Dennis .................... 10/07/2023 4:39 [...] post total right knee replacement 01/02/2015 06/10/2017 detention (current) use of anticoagulants 11/27/2013 12/28/2013 Anticoagulation [...] Type Department Care Team Description 03/27/2024 Telephone [facility] [address] [place] [address] Barbara Vlaentin, DO Questions 03/16/2024 Refill [facility] [address] [place] [address] Toshia Hooks NP Refill Request 03/14/2024 10:30 AM CDT Home Care Visit [facility] [address] [place] [address] Geneva Sanchez RN SN - OASIS DISCHARGE 03/12/2024 Refill [facility] [address] [place] [address] Barbara Valentin, Refill Request (Pregabalin, Fluoxetine, Duloxetine) 03/06/2024 10:00 AM CDT Home Care Visit [facility] [address] [place] [address] Geneva Sanchez, RN SN - HOME VISIT 03/06/2024 9:15 AM CDT Home Care Visit [facility] [address] [place] [address] Alex Contreras EXTRUSION PRESS OPERATOR - HOME VISIT 03/03/2024 Home Care Visit [facility] [address] [place] [address] Nitza Riojas LISW CARE COORDINATION 02/28/2024 2:00 PM CDT Home Care Visit [facility] [address] [place] [phone] Shania Elaine, RN SN - HOME VISIT 02/28/2024 10:45 AM CDT Home Care Visit [facility] [address] [place] [phone] Fabiola Mathis EXTRUSION PRESS OPERATOR - HOME VISIT 02/25/2024 Home Care Visit [facility] [address] [place] [phone] Nitza Riojas LISW CARE COORDINATION 02/22/2024 3:00 PM CDT Home Care Visit [facility] [address] [place] [phone] Trini Hitchcock RN SN - HOME VISIT 02/22/2024 Home Care Visit [address] [phone] Dar Phillips, OT OT - DISCIPLINE DISCHARGE 02/21/2024 9:45 AM CDT Home Care Visit [place] [address] [place] [phone] Alex Contreras EXTRUSION PRESS OPERATOR - HOME VISIT 02/20/2024 Home Care Visit [address] [phone] Nitza Riojas LISW MOLD DESIGNER - INITIAL ASSESSMENT 02/16/2024 Refill [facility] [address] [place] [address] Toshia Hooks NP Refill Request (oxyCODONE (ROXICODONE) 5 mg immediate release tablet ) 02/15/2024 3:45 PM CDT Home Care Visit [facility] [address] [place] [phone] Coleman Greene, PT PT - DISCIPLINE DISCHARGE 02/15/2024 11:00 AM CDT Home Care Visit [facility] [address] [place] [phone] Geneva Sanchez, LOS SN - HOME VISIT 02/14/2024 12:00 PM CDT Home Care Visit [facility] [address] [place] [address] Joi Moreno, VARELA OT - HOME VISIT 02/14/2024 8:15 AM CDT Home Care Visit [facility] [address] [place] [address] Fabiola Mathis EXTRUSION PRESS OPERATOR - HOME VISIT 02/10/2024 3:30 PM CDT Home Care Visit [facility] [address] [place] [address] Joi Moreno VARELA OT - HOME VISIT 02/10/2024 Home Care Visit [facility] [address] [place] [address] Nitza Riojas LISW MOLD DESIGNER - CASE COMMUNICATION 02/09/2024 Refill [facility] [address] [place] [address] Barbara Valentin DO Refill Request (Duloxetine) 02/08/2024 3:00 PM CDT Home Care Visit [facility] [address] [place] [address] Veda Resendiz RN SN - WOUND/OSTOMY CHART CONSULT 02/08/2024 9:00 AM CDT Home Care Visit [facility] [address] [place] [address] Geneva Sanchez, LOS SN - HOME VISIT 02/08/2024 Telephone [facility] [address] [place] [address] Barbara Valentin DO Pharmacist Medication Management (MEDICATION CHANGE) 02/08/2024 Telephone [facility] [address] [address] Geneva Sanchez, supervisor meter shop List Update 02/07/2024 4:00 PM CDT Home Care Visit [facility] [address] [place] [phone] Joi Moreno VARELA OT - HOME VISIT 02/07/2024 9:30 AM CDT Home Care Visit [facility] [address] [place] [address] Kendal Serna, PT PT - HOME VISIT 02/07/2024 Telephone [facility] [address] [place] [address] Shaqra, Barbara Patricia, DO Refill Request (Insulin lispro pens) 02/04/2024 Refill [facility] [address] [place] [address] Shaqra, Barbara Patricia, DO Refill Request (Insulin Lispro) 02/03/2024 9:00 AM CDT Home Care Visit [facility] [address] [place] [address] Joi Moreno VARELA OT - HOME VISIT 02/02/2024 11:00 AM CDT Home Care Visit [facility] [address] [place] [address] Kendal Serna, PT PT - HOME VISIT 02/01/2024 4:00 PM CDT Home Care Visit [facility] [address] [place] [address] Joi Moreno VARELA OT - HOME VISIT 01/31/2024 9:30 AM CDT Home Care Visit [facility] [address] [place] [address] Fabiola Mathis EXTRUSION PRESS OPERATOR - HOME VISIT 01/31/2024 Home Care Visit [facility] [address] [place] [address] Oumou Burns, RN CARE COORDINATION 01/31/2024 Home Care Visit [facility] [address] [place] [address] Oumou Burns, RN CARE COORDINATION 01/30/2024 10:45 AM CDT Home Care Visit [facility] [address] [place] [address] Kendal Serna, PT PT - HOME VISIT 01/30/2024 9:00 AM CDT Home Care Visit [facility] [address] [place] [phone] Geneva Sanchez, LOS SN - INITIAL ASSESSMENT 01/25/2024 1:30 PM CDT Home Care Visit [facility] [address] [place] [phone] Coleman Greene, PT PT - HOME VISIT 01/25/2024 Travel 01/24/2024 1:00 PM CDT Home Care Visit [facility] [address] [place] [phone] Dar Phillips, OT OT - INITIAL ASSESSMENT 01/24/2024 9:30 AM CDT Home Care Visit [facility] [address] [place] [phone] Fabiola Mathis EXTRUSION PRESS OPERATOR - HOME VISIT 01/24/2024 Home Care Visit [facility] [address] [place] [phone] Narcisa Atkinson, RN CARE COORDINATION 01/23/2024 Home Care Visit [facility] [address] [place] [phone] Narcisa Atkinson, RN CARE COORDINATION 01/20/2024 Refill [facility] [address] [place] [address] Toshia Hooks NP Refill Request 01/18/2024 1:45 PM CDT Home Care Visit [facility] [address] [place] [phone] Kendal Serna, PT PT - OASIS START OF CARE 01/18/2024 10:30 AM CDT Phone Office Visit [facility] [address] [place] [address] Nikolai Ibarra MD 01/18/2024 Plan of Care Documentation [facility] [address] [place] [address] 01/18/2024 Patient Outreach [facility] [address] [place] [address] Maria R Ho, RN Primary RN Care Management; Hospital F/U (Lace 44) 01/18/2024 Travel 01/12/2024 9:13 PM CDT - 01/17/2024 5:23 PM CDT Hospital Encounter [facility] [address] [place] [address] Megan, MD Nedra Valverde, DO Chente Honeycutt, MD Dusty Manjarrez, MD Ricky Alston, Helder Hoover MD [facility], [facility] Hospitalists Of Opioid dependence, uncomplicated (HC) (Primary Dx); Nasal congestion; Chronic pain syndrome; Diabetic ketoacidosis without coma associated with type 1 diabetes mellitus (HC); 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, macular edema presence unspecified, unspecified laterality, unspecified proliferative retinopathy type (HC); Heel ulcer, right, with unspecified severity (HC) Discharge Disposition: [facility] 01/09/2024 Refill [facility] [address] [place] [address] Barbara Valentin DO Refill Request (Fluoxetine) 01/09/2024 Refill [facility] [address] [place] [address] Elian Humphrey MD Refill Request (Torsemide) 01/06/2024 4:00 PM CDT Office Visit [facility] [address] [place] [address] Toshia Hooks NP Follow Up; Pain (Multi source; was told by her Supervisor Cytology she can ot use OTC Voltaren gel., which had been helping her O.A. pain (hands; wrists; shoulders; ) ) 01/06/2024 Travel from Last 3 Months Immunizations Name Administration Dates Next Due AMB Influenza, IIV3 (Age >=3 years)(Flu Clinic Only) 05/17/2013,05/06/2010 COVID-19 vaccine (Avaamo-Bio NTech 30mcg/0.3mL) 12YO+ BIVALENT PF, MDV 04/28/2022 [...] Care Team (Late st Contact Info) Description 04/06/2024 11:25 AM CDT Office Visit [facility] [address] [place] [address] Barbara Valentin DO [address] [place] [facility] [place] [address] 04/13/2024 11:00 AM CDT Office Visit [facility] [address] [place] [address] Barbara Valentin DO [address] [place] [address] 05/04/2024 3:00 PM CDT Office Visit [facility] [address] [place] [address] Barbara Valentin DO [address] [place] [address] 05/04/2024 3:30 PM CDT Phone Office Visit [facility] [address] [place] [address] Nikolai Ibarra MD [address] [place] [address] Health Maintenance Due Date Last Done Comments [...] 03/18/2020, Additional history exists Fecal testing sDNA-FIT (Hudson guard) for age 45-75 11/10/2024 11/10/2021 Pneumococcal series for age 6-64 (3 of 3 - PPSV23 or PCV20) 2026 08/17/2016, 08/14/2014, 07/04/2005, Additional history exists Lipids for age 45-75 04/28/2027 04/28/2022, 08/17/2019, 08/31/2018, Additional history exists Tdap Completed 08/25/2010 HIV for age 15-65 Completed 07/21/2015 Hepatitis C screening for ag e 18-79 Completed 02/16/2018 Medical Devices Implanted Type Area Cotton Sampler Device Identifier Shelf Expiration Date Model / Serial / Lot [id number] 2x12mm [[id number]] Implanted:Qty: 1 on 08/08/2008 at [facility] Explanted:at [facility] (Quantity not on file) [facility] Motorpaneer [id number]# / [id number] / Stem Compnt Primary 8mm Mini - [id number] Implanted:Qty: 1 on 03/17/2011 at [facility] Right: Shoulder BIOMET [id number]# / / [id number] Head Hum Bio-Mod [id number] - [id number] Implanted:Qty: 1 on 03/17/2011 at [facility] Right: Shoulder BIOMET [id number]# / / [id number] Base Glenoid Hybrid 4mm Sm - [id number] Implanted:Qty: 1 on 03/17/2011 at [facility] Right: Shoulder BIOMET [id number]# / / [id number] Cmnt 1/2 Dosehowmedica - [id number] Implanted:Qty: 1 on 03/17/2011 at [facility] Right: Shoulder [employer] [id number] 0# / / [id number] Post Glenoid Hybrid Regenerex - [id number] Implanted:Qty: 1 on 03/17/2011 at [facility] Right: Shoulder BIOMET [id number] # / / [id number] Head Humeral 44x15 Co Cr Biomodular - [id number] Implanted:Qty: 1 on 07/12/2012 at [facility] Left: Shoulder BIOMET [id number]# / / [id number] Shoulder Stem Implanted:Qty: 1 on 07/12/2012 at [facility] Left: Shoulder [id number] / / [id number] Description:SHOULDER STEM Cmnt Bone 1/2 Dose[employer] - [id number] Implanted:Qty: 1 on 07/12/2012 at [facility] Left: Shoulder [employer] 6188-1- 0# / / [id number] Post Glenoid Hybrid Regenerex - [id number] Implanted:Qty: 1 on 07/12/2012 at [facility] Left: Shoulder BIOMET [id number] # / / [id number] Base Glenoid Hybrid 4mm Sm - [id number] Implanted:Qty: 1 on 07/12/2012 at [facility] Left: Shoulder BIOMET [id number]# / / [id number] Procedures Procedure Name Priority Date/Time Associated Diagnosis [...] HIV 1/2 Add On 07/21/2015 9:40 AM VOICE NETWORK ENGINEER FULL SERVICE VENDING DRIVER THIN PREP PAP SCREEN IMAGED Routine 08/17/2012 4:02 PM VOICE NETWORK ENGINEER Screening for malignant neoplasm of the cervix [...] - 100 mg/dL 01/17/2024 11:[address] [facility] Blood BLOOD SPECIMEN / Unknown 01/17/2024 11:27 AM CDT 01/17/2024 11:35 AM CDT Helder García MD CHEMISTRY [facility] [employer] [facility] [address] [place] [address], * (ABNORMAL) CREATININE (01/17/2024 8:20 AM CDT) Only the most recent of3 resultswithin the time period is included. eGFR 47(L) >90 mL/min/1.7 3m2 01/17/2024 9:[address] [facility] Software[facility] Comment:As of 2021, eG FR is calculated by the CKD-EPI creatinine equation without race adjustment. ??eGFR can be influenced by muscle mass, exercise, and diet. ??The reported eGFR is an estimation only and is only applicable if the renal function is stable. CREATININE 1.28(H) 0.50 - 0.90 mg/dL 01/17/2024 9:[address] [facility] Software[facility] Blood BLOOD SPECIMEN / Unknown Non-Lab Venipuncture / Unknown 01/17/2024 8:20 AM CDT 01/17/2024 8:26 AM CDT Helder García MD CHEMISTRY Performing Organization Address [facility] Co de Phone Number [facility] [address] [place] [address], * PHOSPHORUS (01/17/2024 8:20 AM CDT) Only the most recent of5 resultswithin the time period is included. PHOSPHORUS 2.6 2.5 - 4.5 mg/dL 01/17/2024 9:06 AM CDT [facility] Blood BLOOD SPECIMEN / Unknown Non-Lab Venipuncture / Unknown 01/17/2024 8:20 AM CDT 01/17/2024 8:26 AM CDT Sarah Betancourt RN CHEMISTRY Performing Organization Address [facility] Co de Phone Number [facility] [address] [place] [address], [place] * (ABNORMAL) BASIC METABOLIC PANEL (01/17/2024 8:20 AM CDT) Only the most recent of5 resultswithin the time period is included. SODIUM 139 136 - 145 mmol/L 01/17/2024 12:35 PM CDT [facility] TR[facility] POTASSIUM 3.9 3.5 - 5.1 mmol/L 01/17/2024 12:35 PM CDT [facility] CHLORIDE 103 98 - 107 mmol/L 01/17/2024 12:35 PM CDT [facility] CO2,TOTAL 24 22 - 29 mmol/L 01/17/2024 12:35 PM CDT [facility] ANION GAP 12 5 - 18 01/17/2024 12:35 PM CDT [facility] GLUCOSE 162(H) 70 - 99 mg/dL 01/17/2024 12:35 PM CDT [facility] CALCIUM 8.7(L) 8.8 - 10.2 mg/dL 01/17/2024 12:35 PM CDT [facility] BUN 17 8 - 23 mg/dL 01/17/2024 12:35 PM CDT [facility] CREATININE 1.31(H) 0.50 - 0.90 mg/dL 01/17/2024 12:35 PM CDT [facility]AL [facility] BUN/CREAT RATIO 13 10 - 20 12:35 PM CDT [facility] TRA [facility] eGFR 46(L) >90 mL/min/1.7 3m2 01/17/2024 12:35 PM CDT [facility] TR[facility] Comment: As of 2021, [...] 8:26 AM CDT Helder García MD CHEMISTRY [facility] [address] [place] [address], * CLOSTRIDIOIDES DIFFICILE TOXIN PCR (01/16/2024 12:27 PM CDT) CLOSTRIDIUM DIFFICILE PCR Negative 01/16/2024 2:18 PM CDT [facility] PRESUMPTIVE NAP1 STRAIN Negative 01/16/2024 2:18 PM CDT [facility] Stool STOOL SPECIMEN / Unknown Non-Blood / Unknown 01/16/2024 12:27 PM CDT 01/16/2024 12:51 PM CDT Narrative [facility] - 01/16/2024 2:18 PM CDT The NAP1 (027 or BI) strain is a hypervirulent strain. Detection may be useful for epidemiological purposes. Helder García MD MICROBIOLOGY Performing Organization Address [facility] Co de Phone Number [facility] [address] [place] [address], * SCAN CORRESP-EKG RESULTS (01/16/2024 9:07 AM CDT) Narrative 01/16/2024 9:07 AM CDT Ordered by an unspecified provider. Other Clinical Staff OTHER * (ABNORMAL) HEMOGLOBIN (01/16/2024 6:30 AM CDT) Only the most recent of2 resultswithin the time period is included. HEMOGLOBIN 8.9(L) 12.0 - 16.0 g/dL 01/16/2024 7:13 AM CDT [facility] MCV 91 80 - 100 fL 01/16/2024 7:13 AM CDT [facility] Blood BLOOD SPECIMEN / Unknown Venipuncture / Unknown 01/16/2024 6:30 AM CDT 01/16/2024 6:58 AM CDT Fabrizio Montano MD HEMATOLOGY Performing Organization Address City/[facility]/ZIP Co de Phone Number [facility] [address] [place] [address], * VANCOMYCIN (01/16/2024 6:30 AM CDT) Only the most recent of3 resultswithin the time period is included. VANCOMYCIN 13.0 ug/mL 01/16/2024 7:42 AM CDT [facility] Comment:No Reference Range D efined. DATE OF LAST DOSE,RANDOM Not Given 01/16/2024 7:42 AM CDT [facility] TIME OF LAST DOSE,RANDOM Not Given 01/16/2024 7:42 AM CDT [facility] Blood BLOOD SPECIMEN / Unknown Venipuncture / Unknown 01/16/2024 6:30 AM CDT 01/16/2024 6:58 AM CDT Barbara Holcomb NP CHEMISTRY Performing Organization Address City/[facility]/ZIP Co de Phone Number [facility] [address] [place] [address], * (ABNORMAL) PLATELET COUNT (01/15/2024 6:02 AM CDT) PLATELET COUNT 166 140 - 440 thou/cu mm 01/15/2024 6:44 AM CDT [facility] MPV 11.2(H) 6.5 - 11.0 fL 01/15/2024 6:44 AM CDT [facility] Blood BLOOD SPECIMEN / Unknown Venipuncture / Unknown 01/15/2024 6:02 AM CDT 01/15/2024 6:26 AM CDT Fabrizio Montano MD HEMATOLOGY Performing Organization Address City/[facility]/ZIP Co de Phone Number [facility] [address] [place] [address], [place] * WHITE BLOOD COUNT (01/15/2024 6:02 AM CDT) WHITE BLOOD COUNT 4.9 4.5 - 11.0 thou/cu mm 01/15/2024 6:44 AM CDT [facility] NRBC 0.0 % 01/15/2024 6:44 AM CDT [facility] ABS NRBC 0.0 thou /cu mm 01/15/2024 6:44 AM CDT [facility] Blood BLOOD SPECIMEN / Unknown Venipuncture / Unknown 01/15/2024 6:02 AM CDT 01/15/2024 6:26 AM CDT Fabrizio Montano MD HEMATOLOGY Performing Organization Address [facility] Co de Phone Number [facility] [address] [place] [address], [place] * Sodium AM (01/15/2024 6:02 AM CDT) SODIUM 142 136 - 145 mmol/L 01/15/2024 7:13 AM CDT [facility] Blood BLOOD SPECIMEN / Unknown Venipuncture / Unknown 01/15/2024 6:02 AM CDT 01/15/2024 6:27 AM CDT Fabrizio Montano MD CHEMISTRY Performing Organization Address [facility] de Phone Number [facility] [address] [place] [address], [place] * Potassium AM (01/15/2024 6:02 AM CDT) Only the most recent of3 resultswithin the time period is included. Pathologist [facility] POTASSIUM 4.4 3.5 - 5.1 mmol/L 01/15/2024 7:13 AM CDT [facility] Blood BLOOD SPECIMEN / Unknown Venipuncture / Unknown 01/15/2024 6:02 AM CDT 01/15/2024 6:27 AM CDT Fabrizio Montano MD CHEMISTRY Performing Organization Address [facility] Co de Phone Number [facility] [address] [place] [address], [place] * SCAN-CARDIAC STRIP (01/14/2024 7:07 AM CDT) Scanner OTHER * (ABNORMAL) CBC W PLT NO DIFF (01/14/2024 5:28 AM CDT) WHITE BLOOD COUNT 8.5 4.5 - 11.0 thou/cu mm 01/14/2024 6:33 AM CDT [facility] RED BLOOD COUNT 3.04(L) 4.00 - 5.20 mil/cu mm 01/14/2024 6:33 AM CDT [facility] HEMOGLOBIN 8.9(L) 12.0 - 16.0 g/dL 01/14/2024 6:33 AM CDT [facility] HEMATOCRIT 27.5(L) 33.0 - 51.0 % 01/14/2024 6:33 AM CDT [facility] MCV 91 80 - 100 fL 01/14/2024 6:33 AM CDT [facility] MCH 29.3 26.0 - 34.0 pg 01/14/2024 6:33 AM CDT [facility] MCHC 32.4 32.0 - 36.0 g/dL 01/14/2024 6:33 AM CDT [facility] RDW 14.4 11.5 - 15.5 % 01/14/2024 6:33 AM CDT [facility] PLATELET COUNT 198 140 - 440 thou/cu mm 01/14/2024 6:33 AM CDT [facility] MPV 11.4(H) 6.5 - 11.0 fL 01/14/2024 6:33 AM CDT [facility] NRBC 0.0 % 01/14/2024 6:33 AM CDT [facility] ABS NRBC 0.0 thou /cu mm 01/14/2024 6:33 AM CDT [facility] Blood BLOOD SPECIMEN / Unknown Non-Lab Venipuncture / Unknown 01/14/2024 5:28 AM CDT 01/14/2024 6:31 AM CDT Barbara Holcomb NP HEMATOLOGY [facility] [address] [place] [address], * (ABNORMAL) CALCIUM IONIZED HOSPITAL DRAW ONLY (01/14/2024 5:28 AM CDT) Only the most recent of3 resultswithin the time period is included. Pathologist [facility] CALCIUM,IONIZE D 1.30(H) 1.15 - 1.27 mmol/L 01/14/2024 6:03 AM CDT [facility] Blood BLOOD SPECIMEN / Unknown Non-Lab Venipuncture / Unknown 01/14/2024 5:28 AM CDT 01/14/2024 5:49 AM CDT Grace Eldridge MD CHEMISTRY [facility] [address] [place] [address], * ECHO TTE COMPLETE W CONTRAST (01/13/2024 3:56 PM CDT) Pathologist [facility] AORTIC VALVE MEAN PG 7 mmHg EJECTION FRACTION 64 % LVEDD 4.1 cm EJECTION FRACTION 60 - 65% Anatomical Region Laterality Modality Ultrasound 01/13/2024 2:53 PM CDT Narrative 01/13/2024 4:39 PM CDT ECHOCARDIOGRAM MIKAYLA KUHN ? Accession#: ?? [id number] : ?1960 63 years Study Date: ?? 01/13/2024 2:53:14 PM Gender: F ?BP: ? 114/44 mmHg Height: 152.00 cm ?BSA: ?1.93 m? ? ? Weight: 98.00 kg ? Tech: ? KBA ? Referring MD: BARBARA HOLCOMB Site: ? [facility] Reading Location: ANW IP Patient [...] documentation: 2 ml diluted Definity, lot #[id number], [facility]# [id number] was administered peripherally to enhance visualization of all left ventricular segments. . This study was interpreted by an [facility] accredited facility. ??Final ?? Procedure Note Travon Blood MD - 01/13/2024 ECHOCARDIOGRAM MIKAYLA KUHN : 1960 63 years Study Date: 01/13/2024 2:53:14 PM Gender: F BP: 114/44 mmHg Height: 152.00 cm BSA: 1.93 m? ? ? Weight: 98.00 kg Tech: PASQUALE Referring MD: BARBARA HOLCOMB Site: [facility] Reading Location: W Patient Location: Inpatient. Procedure: [...] documentation: 2 ml diluted Definity, lot #[id number], [facility]#[id number] was administered peripherally to enhance visualization of allleft ventricular segments. . This study was interpreted by an [facility] accredited facility. Final Barbara Holcomb AUXILIARY EQUIPMENT OPERATOR ECHO ORD * US ARTERIAL LOWER [...] 125 mmHg Left Brachial: 111 mmHg Right BEAD PICKER: Noncompressible Right DPA: 115 mmHg (SAMUEL 0.92) Left BEAD PICKER: Noncompressible Left DPA: Noncompressible SAMUEL: 1.0-1.4 - normal 0.9-0.99 - borderline 0.80-0.89 - mild 0.50-0.79 - moderate 0.30-0.49 - severe < 0.30 - critical RIGHT: POLE SHAVER PROX: 204 cm/sec; triphasic waveforms POLE SHAVER DIST: 138 cm/sec; triphasic waveforms PFA: 97 cm/sec; triphasic waveforms SFA PROX: 140, 111 cm/sec; triphasic waveforms SFA MID: 113, 74 cm/sec; triphasic waveforms SFA DIST: 107, 113 cm/sec; triphasic waveforms POP PROX: 105 cm/sec; triphasic waveforms POP DIST: 89 cm/sec; triphasic waveforms BEAD PICKER: 32 cm/sec; triphasic waveforms KAITLYN: 58 cm/sec; triphasic waveforms DPA: 56 cm/sec; triphasic waveforms LEFT: POLE SHAVER PROX: 193 cm/sec; triphasic waveforms POLE SHAVER DIST: 152 cm/sec; triphasic waveforms PFA: 98 cm/sec; triphasic waveforms SFA PROX: 119, 109 cm/sec; triphasic waveforms SFA MID: 103, 102 cm/sec; triphasic waveforms SFA DIST: 103, 100 cm/sec; triphasic waveforms POP PROX: 124 cm/sec; triphasic waveforms POP DIST: 85 cm/sec; triphasic waveforms BEAD PICKER: 169 cm/sec; triphasic waveforms KAITLYN: 91 cm/sec; [...] 125 mmHg Left Brachial: 111 mmHg Right BEAD PICKER: Noncompressible Right DPA: 115 mmHg (SAMUEL 0.92) Left BEAD PICKER: Noncompressible Left DPA: Noncompressible SAMUEL: 1.0-1.4 - normal 0.9-0.99 - borderline 0.80-0.89 - mild 0.50-0.79 - moderate 0.30-0.49 - severe < 0.30 - critical RIGHT: POLE SHAVER PROX: 204 cm/sec; triphasic waveforms POLE SHAVER DIST: 138 cm/sec; triphasic waveforms PFA: 97 cm/sec; triphasic waveforms SFA PROX: 140, 111 cm/sec; triphasic waveforms SFA MID: 113, 74 cm/sec; triphasic waveforms SFA DIST: 107, 113 cm/sec; triphasic waveforms POP PROX: 105 cm/sec; triphasic waveforms POP DIST: 89 cm/sec; triphasic waveforms BEAD PICKER: 32 cm/sec; triphasic waveforms KAITLYN: 58 cm/sec; triphasic waveforms DPA: 56 cm/sec; triphasic waveforms LEFT: POLE SHAVER PROX: 193 cm/sec; triphasic waveforms POLE SHAVER DIST: 152 cm/sec; triphasic waveforms PFA: 98 cm/sec; triphasic waveforms SFA PROX: 119, 109 cm/sec; triphasic waveforms SFA MID: 103, 102 cm/sec; triphasic waveforms SFA DIST: 103, 100 cm/sec; triphasic waveforms POP PROX: 124 cm/sec; triphasic waveforms POP DIST: 85 cm/sec; triphasic waveforms BEAD PICKER: 169 cm/sec; triphasic waveforms KAITLYN: 91 cm/sec; [...] 01/14/2024 4:57:16 PM (Electronically Signed) Freya Schafer AUXILIARY EQUIPMENT OPERATOR [place] * US RENAL AND BLADDER [...] 01/14/2024 2:34:58 AM (Electronically Signed) Barbara Holcomb AUXILIARY EQUIPMENT OPERATOR [place] * XR FOOT 3 VIEWS [...] CDT) CULTURE RESULT(A) 01/16/2024 2:44 PM CDT [facility] CULTURE 3+ Corynebacterium striatum 01/16/2024 2:44 PM CDT [facility] CULTURE 2+ Mixed oni present 01/16/2024 2:44 PM CDT [facility] GRAM STAIN No PMNs 01/16/2024 2:44 PM CDT [facility] GRAM STAIN 2+ RBCs 01/16/2024 2:44 PM CDT [facility] GRAM STAIN No Epithelial cells 01/15 2:44 PM CDT [facility] GRAM STAIN 2+ Gram Positive Bacilli 01/16/2024 2:44 PM CDT [facility] Other (Other) Non-Blood / Unknown 01/13/2024 11:49 AM CDT 01/13/2024 12:00 PM CDT [facility] - 01/16/2024 2:44 PM CDT Mixed oni; No Staphylococcus aureus, beta-Streptococcus, Streptococcus pneumoniae, or Pseudomonas aeruginosa isolated. Freya Schafer NP MICROBIOLOGY [facility] [address] [place] [address], * ANAEROBIC CULTURE (01/13/2024 11:49 AM CDT) CULTURE No anaerobes isolated 01/19/2024 10:01 AM CDT [facility] Other (Other) Non-Blood / Unknown 01/13/2024 11:49 AM CDT 01/13/2024 12:00 PM CDT Freya Schafer NP MICROBIOLOGY [facility] [address] [place] [address] * (ABNORMAL) Electrolytes Panel - DKA (01/13/2024 10:53 AM CDT) Only the most recent of3 resultswithin the time period is included. SODIUM 140 136 - 145 mmol/L 01/13/2024 11:36 AM CDT [facility] POTASSIUM 5.2(H) 3.5 - 5.1 mmol/L 01/13/2024 11:36 AM CDT [facility] CHLORIDE 107 98 - 107 mmol/L 01/13/2024 11:36 AM CDT [facility] CO2,TOTAL 21(L) 22 - 29 mmol/L 01/13/2024 11:36 AM CDT [facility] ANION GAP 12 5 - 18 01/13/2024 11:36 AM CDT [facility] Blood BLOOD SPECIMEN / Unknown Non-Lab Venipuncture / Unknown 01/13/2024 10:53 AM CDT 01/13/2024 11:01 AM CDT Ifeanyi Hernández RN CHEMISTRY Performing Organization Address [facility] Co de Phone Number [facility] [address] [place] [address], * SCAN-CARDIAC STRIP (01/13/2024 8:00 AM CDT) Scanner OTHER * MAGNESIUM (01/13/2024 4:22 AM CDT) Only the most recent of2 resultswithin the time period is included. MAGNESIUM 1.9 1.6 - 2.4 mg/dL 01/13/2024 5:07 AM CDT [facility] Blood BLOOD SPECIMEN / Unknown Non-Lab Venipuncture / Unknown 01/13/2024 4:22 AM CDT 01/13/2024 4:41 AM CDT Ifeanyi Hernández RN CHEMISTRY Performing Organization Address [facility] Co de Phone Number [facility] [address] [place] [address], * (ABNORMAL) Serum Glucose - DKA (01/13/2024 1:52 AM CDT) Only the most recent of2 resultswithin the time period is included. [facility] GLUCOSE,RANDOM 459(H) 70 - 139 mg/dL 01/13/2024 2:46 AM CDT [facility] Blood BLOOD SPECIMEN / Unknown Non-Lab Venipuncture / Unknown 01/13/2024 1:52 AM CDT 01/13/2024 2:03 AM CDT Emily Guzman MD CHEMISTRY Performing Organization Address [facility] Co de Phone Number [facility] [address] [place] [address], [place] * (ABNORMAL) TROPONIN T (HS) ONE TIME (01/12/2024 11:39 PM CDT) [facility] TROPONIN T HS 45(H) 6-10 ng/L ng/L 01/13/2024 12:22 AM CDT [facility] Blood BLOOD SPECIMEN / Unknown Non-Lab Venipuncture / Unknown 01/12/2024 11:39 PM CDT 01/12/2024 11:45 PM CDT Emily Guzman MD CHEMISTRY Performing Organization Address [facility] de Phone Number [facility] [address] [place] [address], [place] * 12 Lead EKG (01/12/2024 10:16 PM CDT) [facility] Interpretation Normal sinus rhythm Left axis [...] Emily Guzman MD EKG ORD BEYOND NOW [place], [place] * MRSA/SA PCR (01/12/2024 10:07 PM CDT) MRSA DNA PCR Negative Negative 01/12/2024 11:33 PM CDT [facility] STAPHYLOCOCCUS AUREUS PCR Negative Negative 01/12/2024 11:33 PM CDT [facility] Other SPECIMEN FROM INTERNAL NOSE / Unknown Non-Blood / Unknown 01/12/2024 10:07 PM CDT 01/12/2024 10:13 PM CDT Narrative [facility] - 01/12/2024 11:33 PM CDT Test result does not preclude MRSA or SA nasal colonization. Chaparro Sneed DO MICROBIOLOGY Performing Organization Address City/[facility]/ZIP Co de Phone Number [facility] [address] [place] [address], * (ABNORMAL) Urine Culture (01/12/2024 10:07 PM CDT) CULTURE RESULT(A) 01/16/2024 6:58 AM CDT [facility] CULTURE 10,000-50,000 CFU/mL Proteus mirabilis 01/16/2024 6:58 AM CDT [facility] CULTURE 50,000-100,000 CFU/mL Danita albicans 01/16/2024 6:58 AM CDT [facility] Urine URINE SPECIMEN / [...] - [place]/ZIP Co de Phone Number [facility] [address] [place] [address], * Blood Culture (01/12/2024 9:40 PM CDT) Only the most recent of2 resultswithin the time period is included. [facility] Signature CULTURE No Growth. 01/16/2024 11:23 PM CDT [facility] Blood BLOOD SPECIMEN / Unknown Venipuncture / Unknown 01/12/2024 9:40 PM CDT 01/12/2024 9:52 PM CDT Narrative [facility] - 01/16/2024 11:23 PM CDT Low volume blood culture received; possible false negative culture. Emily Guzman MD MICROBIOL OGY Performing Organization Address City/[facility]/ZIP Co de Phone Number [facility] [address] [place] [address], * (ABNORMAL) TROPONIN T(HS) ACUTE W/2HR REFLEX (01/12/2024 9:37 PM CDT) [facility] TROPONIN T HS 47(H) 6-10 ng/L ng/L 01/12/2024 10:16 PM CDT [facility] Blood BLOOD SPECIMEN / Unknown Non-Lab Venipuncture / Unknown 01/12/2024 9:37 PM CDT 01/12/2024 9:46 PM CDT [facility] 01/12/2024 10:16 PM CDT hs-cTnT [...] department patient population. Emily Guzman MD CHEMISTRY [facility] [address] [place] [address], * (ABNORMAL) CBC WITH AUTO DIFFERENTIAL (01/12/2024 9:37 PM CDT) [facility] Signature WHITE BLOOD COUNT 14.9(H) 4.5 - 11.0 thou/cu mm 01/12/2024 9:54 PM CDT [facility] RED BLOOD COUNT 3.61(L) 4.00 - 5.20 mil/cu mm 01/12/2024 9:54 PM CDT [facility] HEMOGLOBIN 10.5(L) 12.0 - 16.0 g/dL 01/12/2024 9:54 PM CDT [facility] HEMATOCRIT 32.6(L) 33.0 - 51.0 % 01/12/2024 9:54 PM CDT [facility] MCV 90 80 - 100 fL 01/12/2024 9:54 PM CDT [facility] MCH 29.1 26.0 - 34.0 pg 01/12/2024 9:54 PM CDT [facility] MCHC 32.2 32.0 - 36.0 g/dL 01/12/2024 9:54 PM CDT [facility] RDW 13.2 11.5 - 15.5 % 01/12/2024 9:54 PM CDT [facility] PLATELET COUNT 273 140 - 440 thou/cu mm 01/12/2024 9:54 PM CDT [facility] MPV 11.0 6.5 - 11.0 fL 01/12/2024 9:54 PM CDT [facility] NRBC 0.0 % 01/12/2024 9:54 PM CDT [facility] ABS NRBC 0.0 thou /cu mm 01/12/2024 9:54 PM CDT [facility] % NEUT 80.3 % 01/12/2024 9:54 PM CDT [facility] % LYMPH 9.6 % 01/12/2024 9:54 PM CDT [facility] % MONO 9.2 % 01/12/2024 9:54 PM CDT [facility] % EOS 0.1 % 01/12/2024 9:54 PM CDT [facility] % BASO 0.1 % 01/12/2024 9:54 PM CDT [facility] % IMMATURE GRAN (METAS,MYELOS,AK OS) 0.7 % 01/12/2024 9:54 PM CDT [facility] ABSOLUTE NEUTROPHILS 12.0(H) 1.7 - 7.0 thou/cu mm 01/12/2024 9:54 PM CDT [facility] ABSOLUTE LYMPHOCYTES 1.4 0.9 - 2.9 thou/cu mm 01/12/2024 9:54 PM CDT [facility] ABSOLUTE MONOCYTES 1.4(H) <0.9 thou/cu mm 01/12/2024 9:54 PM CDT [facility] ABSOLUTE EOSINOPHILS 0.0 <0.5 thou/cu mm 01/12/2024 9:54 PM CDT [facility] ABSOLUTE BASOPHILS 0.0 <0.3 thou/cu mm 01/12/2024 9:54 PM CDT [facility] ABSOLUTE IMMATURE GRANULOCYTES(MET ,MYELOS,PROS) 0.1 <0.3 thou/cu mm 01/12/2024 9:54 PM CDT [facility] Blood BLOOD SPECIMEN / Unknown Non-Lab Venipuncture / Unknown 01/12/2024 9:37 PM CDT 01/12/2024 9:46 PM CDT Emily Guzman MD HEMATOLOG Y [facility] [address] [place] [address], [place] * (ABNORMAL) BLOOD GAS,VENOUS (01/12/2024 9:37 PM CDT) PH, VENOUS 7.25(L) 7.32 - 7.43 01/12/2024 9:52 PM CDT [facility] PCO2, VENOUS 44 41 - 51 mmHg 01/12/2024 9:52 PM CDT [facility] PO2, VENOUS 48(H) 35 - 40 mmHg 01/12/2024 9:52 PM CDT [facility] HCO3,VENOUS 19(L) 22 - 29 mmol/L 01/12/2024 9:52 PM CDT [facility] BASE EXCESS, VENOUS, POCT -7.7(L) -2.0 - 3.0 01/12/2024 9:52 PM CDT [facility] O2 SATURATION, VENOUS 85(H) 70 - 75 % 01/12/2024 9:52 PM CDT [facility] INSPIRED O2 21 01/12/2024 9:52 PM CDT [facility] Comment:Unit of Measure: Lit ers (L) if <=20; Percent (%) if >20 PATIENT TEMPERATURE 36.9 Degrees C 01/12/2024 9:52 PM CDT [facility] Blood VENOUS BLOOD SPECIMEN / Unknown Non-Lab Venipuncture / Unknown 01/12/2024 9:37 PM CDT 01/12/2024 9:46 PM CDT Emily Guzman MD CHEMISTRY [facility] [address] [place] [address], * Protime - INR (01/12/2024 9:37 PM CDT) INR 1.0 <1.3 01/12/2024 9:56 PM CDT [facility] PROTIME 11.5 10.3 - 12.3 sec 01/12/2024 9:56 PM CDT [facility] Blood BLOOD SPECIMEN / Unknown Non-Lab Venipuncture / Unknown 01/12/2024 9:37 PM CDT 01/12/2024 9:46 PM CDT Narrative [facility] - 01/12/2024 9:56 PM CDT ?Therapeutic [...] Guzman MD HEMATOLOG Y Performing Organization Address City/State/[facility] Co de Phone Number [facility] [address] [place] [address], * (ABNORMAL) HEMOGLOBIN A1C MONITORING (POCT) (01/12/2024 9:37 PM CDT) HEMOGLOBIN A1C MONITORING (POCT) 9.3(H) <=6.4 % 01/14/2024 10:29 AM CDT [facility] Blood BLOOD SPECIMEN / Unknown Non-Lab Venipuncture / Unknown 01/12/2024 9:37 PM CDT 01/12/2024 9:46 PM CDT Narrative [facility] - 01/14/2024 10:29 AM CDT ? [...] Barbara Holcomb NP CHEMISTRY Performing Organization Address [facility]/ZIP Co de Phone Number [facility] [address] [place] [address], [place] * (ABNORMAL) Hepatic Function Panel (01/12/2024 9:37 PM CDT) ALBUMIN 3.2(L) 4.0 - 4.9 g/dL 01/12/2024 10:16 PM CDT [facility] PROTEIN,TOTAL 6.4 6.0 - 8.0 g/dL 01/12/2024 10:16 PM CDT [facility] BILIRUBIN,TOTAL 0.2 0.0 - 1.2 mg/dL 01/12/2024 10:16 PM CDT [facility] BILIRUBIN,DIRECT <0.2 0.0 - 0.3 mg/dL 01/12/2024 10:16 PM CDT [facility] BILIRUBIN,INDIRE CT 01/12/2024 10:16 PM CDT [facility] Comment:Unable to calculate, Direct Bili <0.2 ALK PHOSPHATASE 122(H) 35 - 104 IU/L 01/12/2024 10:16 PM CDT [facility] ALT (SGPT) 21 10 - 35 IU/L 01/12/2024 10:16 PM CDT [facility] AST (SGOT) 20 10 - 35 IU/L 01/12/2024 10:16 PM CDT [facility] Blood BLOOD SPECIMEN / Unknown Non-Lab Venipuncture / Unknown 01/12/2024 9:37 PM CDT 01/12/2024 9:46 PM CDT Emily Guzman MD CHEMISTRY Performing Organization Address City/[facility]/ZIP Co de Phone Number [facility] [address] [place] [address], [place] * SCAN-CARDIAC STRIP (01/12/2024 9:20 PM [...] health care provider. XR MAMMO BILAT SCREENING [[id number]] CLINICAL HISTORY: ??This is an asymptomatic 61 y.o. patient. INDICATION FOR EXAM: Mammogram Screening. TECHNIQUE: CC & MLO views were obtained. ??This study was evaluated with the assistance of Computer-Aided Detection. COMPARISON FILM: Yes 03/02/18 [employer] 07/26/13 [facility] FINDINGS: ??The breasts are extremely dense, which lowers the sensitivity of mammography. There are no dominant masses, suspicious micro calcifications or areas of architectural distortion. Shania Montiel MD MAMMO * LIPID PANEL W REFLEX MEASURED LDL (04/28/2022 1:44 PM CDT) CHOLESTEROL,TOTAL 139 100 - 199 mg/dL 04/30/2022 6:25 PM CDT [facility] TRIGLYCERIDES 141 <150 mg/dL 04/30/2022 6:25 PM CDT [facility] HDL CHOLESTEROL 42 >40 mg/dL 6:25 PM CDT [facility] NON-HDL CHOLESTEROL 97 <145 mg/dl 04/30/2022 6:25 PM CDT [facility] CHOL/HDL RATIO 3.31 <4.50 04/30/2022 6:25 PM CDT [facility] LDL CHOLESTEROL 69 <=130 mg/dL 04/30/2022 6:25 PM CDT [facility] VLDL CHOLESTEROL 28 <=30 mg/dL 04/30/2022 6:25 PM CDT [facility] PROVIDER ORDERED STATUS RANDOM 04/30/2022 6:25 PM CDT [facility] Blood BLOOD SPECIMEN / Unknown Venipuncture / Unknown 04/28/2022 1:44 PM CDT 04/28/2022 1:45 PM CDT Shania Montiel MD CHEMISTRY Performing Organization Address City/[facility]/ZIP Co de Phone Number [facility] [address] [place] [address], * FECAL DNA (AKA COLOGUARD) (11/10/2021 1:00 PM CDT) Shania Montiel MD COMMUNICATION ORD * ANTI HCV [[id number]] (02/16/2018 4:20 PM CDT) Pathologist [facility] HEPATITIS C ANTIBODY Non-React alex Non-React alex 02/17/2018 2:48 PM CDT [facility] Comment:Antibodies to HCV no t detected; does not exclude the possibility of exposure to HCV. Blood BLOOD SPECIMEN / Unknown Butterfly / Unknown 02/16/2018 4:20 PM CDT 02/16/2018 4:20 PM CDT Coleman Plata MD SEND OUTS [facility] [address] [place] [address], * HIV 1&2 TODAY (07/21/2015 9:40 AM VOICE NETWORK ENGINEER) Pathologist [facility] HIV-1/HIV-2 ANTIBODY Non-Reacti ve Non-Reacti ve 07/21/2015 10:31 AM VOICE NETWORK ENGINEER [facility] Blood specimen (specimen) BLOOD SPECIMEN / Unknown Venipuncture / Unknown 07/21/2015 9:40 AM VOICE NETWORK ENGINEER 07/21/2015 9:47 AM VOICE NETWORK ENGINEER Narrative [facility] - 07/21/2015 10:31 AM VOICE NETWORK ENGINEER HIV-1 p24 and HIV-1/HIV-2 Ab not detected Kait Morales DO SEND OUTS [facility] [address] [place] [address], * FULL SERVICE VENDING DRIVER THIN PREP PAP SCREEN IMAGED (08/17/2012 4:02 PM VOICE NETWORK ENGINEER) CYTOLOGY CYTOPATHOLOGY REPORT [facility] Make My plate/[facility] Status: Final Status ?[id number] CLINICAL INFORMATION Last Date of LMP ? :07/03/2012 Last Pap Date ?:02/01/2011 Last Pap Result ?:NIL ABN [place]/Bx Past 5 YRS :None Hormone Usage ?:BCP/OCP/Patch/R ing Menstrual Status ? :Regular Periods [place]/Bx done today ? :No Additional Information :None [...] COLLECTED:08/17/12 ? ACCESSIONED: ??08/18/12 ?? 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 care, receiving hemodialysis, has chronic open wounds/skin [...] 8:01 PM 07/15/2012 6:55 PM Care Teams Inspector Insulation Relationship Specialty Start Date End Date Barbara Valentin DO Patricia [address] [place] [address] PCP - General Family Practice 11/15/22 Julio Ibrahim MD [address] [place] [address] Surgery - Orthopedics 02/01/11 Chuy Doss MD [address] [place], [place] [id number] Surgery - Vascular 02/01/11 Markel Strong MD [address] [place] [address] Provider Family Practice 08/08/20 Nikolai Ibarra MD [address] [facility] [address] [place] [address] Endocrinology 09/07/22 Suad Ng/ [employer] Timber Trimmer 07/14/17 [facility] Home Health Nurse 07/01/17 [facility] S[employer]ING PLANT SUPERVISOR Services Home Health Aide 07/14/17 [facility] Tube Laser Operator/ Ally Christianson [address] [place] [address] Timber Trimmer 07/07/17
== END 2024-03-30 03:57 | disposition home or self-care (01) ==
LOC: AMB 04-04 00:38
PROVIDERS: PCP Family Medicine; Visit Provider Internal Medicine
DX: R73.09 Other abnormal glucose (principal)
CPT/HCPCS: A0425; A0427

== ENCOUNTER 2024-03-30 04:24 | Inpatient (IN) | payer OTHER, SELFPAY ==
[2024-03-30] VITALS (20 sets, daily range): BP systolic 102–133; BP diastolic 37–91; PULSE 78–93; RESP 16–22; TEMP 36.2–36.9; O2SAT 88–97; BMI 38.8; BMI 36.1
--- OUTSIDE RECORDS SUMMARY | 2024-03-30 04:48 | XMS_ITS | Clinical Summary ---
Author Organization [employer] [facility] Address [place], [place] [address] Care Team Providers Care Cigar Packing Examiner Name Role Phone Julio Ibrahim MD Unavailable Chuy Doss MD Unavailable Markel Strong MD Unavailable Nikolai Ibarra MD Unavailable [phone] Barbara Valentin Patricia DO Primary Care Provider [phone] Allergies Active Allergy Reactions Criticality Noted Date [...] mellitus at risk of hypoglycemia Inhale 1 [place] into affected nostril(s) each time if needed for Severe Hypoglycemia. Roll on side and call 911 after administration. 2 Each 12/25/19 22 Active fluticasone (50 mcg per actuation) nasal solution (FLONASE)Indicati ons:Nasal congestion Inhale 1 [place] into affected nostril(s) once daily. Inhale 1 [place] in the nostril(s) once daily. 16 g [...] 2 04/20/20 Active continuous glucose monitor READER ([employer] Elli 2 [place])Indication s:Type 1 diabetes mellitus with other specified complication (HC) To be used to read blood sugars per particle board supervisor's directions. 1 Each 05/19/20 Active blood-glucose meterIndications: [...] be used to read blood sugars per particle board supervisor's directions. 6 Each 3 09/06/19 24 [...] Chronic, continuous use of opioids Inhale 1 [place] into affected nostril(s) each time if needed [...] agreement signed - 10/07/23 10/07/2023 Overview (10/07/2023): [facility] Noem[facility] Dennis .................... 10/07/2023 4:39 [...] Type Department Care Team Description 03/27/2024 Telephone [facility] [address] [place] [address] Barbara Valentin, DO Questions 03/16/2024 Refill [facility] [address] [place] [address] Toshia Hooks NP Refill Request 03/14/2024 10:30 AM CDT Home Care Visit On License [facility] [address] [place] [address] Geneva Sanchez RN SN - OASIS DISCHARGE 03/12/2024 Refill [facility] [address] [place] [address] Barbara Valentin, Refill Request (Pregabalin, Fluoxetine, Duloxetine) 03/06/2024 10:00 AM CDT Home Care Visit On License [facility] [address] [place] [address] Geneva Sanchez, RN SN - HOME VISIT 03/06/2024 9:15 AM CDT Home Care Visit On License Of [facility] [address] [place] [address] Alex Contreras FUR CUTTING MACHINE OPERATOR - HOME VISIT 03/03/2024 Home Care Visit On License [facility] [address] [place] [address] Nitza Riojas LISW CARE COORDINATION 02/28/2024 2:00 PM CDT Home Care Visit On License [facility] [address] [place] [phone] Shania Elaine, RN SN - HOME VISIT 02/28/2024 10:45 AM CDT Home Care Visit On License [facility] [address] [place] [phone] Fabiola Mathis FUR CUTTING MACHINE OPERATOR - HOME VISIT 02/25/2024 Home Care Visit On License [facility] [address] [place] [phone] Nitza Riojas LISW CARE COORDINATION 02/22/2024 3:00 PM CDT Home Care Visit On License [facility] [address] [place] [phone] Trini Hitchcock RN SN - HOME VISIT 02/22/2024 Home Care Visit [address] [address] Dar Phillips, OT OT - DISCIPLINE DISCHARGE 02/21/2024 9:45 AM CDT Home Care Visit [place] [phone] [place] [phone] Alex Contreras FUR CUTTING MACHINE OPERATOR - HOME VISIT 02/20/2024 Home Care Visit [address] [phone] Nitza Riojas LISW OIM ARCHITECT - INITIAL ASSESSMENT 02/16/2024 Refill [facility] [address] [place] [address] Toshia Hooks NP Refill Request (oxyCODONE (ROXICODONE) 5 mg immediate release tablet ) 02/15/2024 3:45 PM CDT Home Care Visit On License [facility] [address] [place] [phone] Coleman Greene, PT PT - DISCIPLINE DISCHARGE 02/15/2024 11:00 AM CDT Home Care Visit On License [facility] [address] [place] [phone] Geneva Sanchez, LOS SN - HOME VISIT 02/14/2024 12:00 PM CDT Home Care Visit On License [facility] [address] [place] [address] Joi Moreno, VARELA OT - HOME VISIT 02/14/2024 8:15 AM CDT Home Care Visit On License [facility] [address] [place] [address] Fabiola Mathis FUR CUTTING MACHINE OPERATOR - HOME VISIT 02/10/2024 3:30 PM CDT Home Care Visit On License [facility] [address] [place] [address] Joi Moreno VARELA OT - HOME VISIT 02/10/2024 Home Care Visit On License [facility] [address] [place] [address] Nitza Rioajs LISW OIM ARCHITECT - CASE COMMUNICATION 02/09/2024 Refill [facility] [address] [place] [address] Barbara Valentin DO Refill Request (Duloxetine) 02/08/2024 3:00 PM CDT Home Care Visit On License [facility] [address] [place] [address] Veda Resendiz RN SN - WOUND/OSTOMY CHART CONSULT 02/08/2024 9:00 AM CDT Home Care Visit On License [facility] [address] [place] [address] Geneva Sanchez, LOS SN - HOME VISIT 02/08/2024 Telephone [facility] [address] [place] [address] Barbara Valentin DO Pharmacist Medication Management (MEDICATION CHANGE) 02/08/2024 Telephone On License [facility] [address], [place] [address] Geneva Sanchez, marketing coordinator List Update 02/07/2024 4:00 PM CDT Home Care Visit On License [facility] [address] [place] [phone] Joi Moreno VARELA OT - HOME VISIT 02/07/2024 9:30 AM CDT Home Care Visit On License [facility] [address] [place] [address] Kendal Serna, PT PT - HOME VISIT 02/07/2024 Telephone [facility] [address] [place] [address] Shaqra, Barbara Patricia, DO Refill Request (Insulin lispro pens) 02/04/2024 Refill [facility] [address] [place] [address] Shaqra, Barbara Patricia, DO Refill Request (Insulin Lispro) 02/03/2024 9:00 AM CDT Home Care Visit On License [facility] [address] [place] [address] Joi Moreno VARELA OT - HOME VISIT 02/02/2024 11:00 AM CDT Home Care Visit On License [facility] [address] [place] [address] Kendal Serna, PT PT - HOME VISIT 02/01/2024 4:00 PM CDT Home Care Visit On License [facility] [address] [place] [address] Joi Moreno VARELA OT - HOME VISIT 01/31/2024 9:30 AM CDT Home Care Visit On License [facility] [address] [place] [address] Fabiola Mathis FUR CUTTING MACHINE OPERATOR - HOME VISIT 01/31/2024 Home Care Visit On License [facility] [address] [place] [address] Oumou Burns, RN CARE COORDINATION 01/31/2024 Home Care Visit On License [facility] [address] [place] [address] Oumou Burns, RN CARE COORDINATION 01/30/2024 10:45 AM CDT Home Care Visit On License [facility] [address] [place] [address] Kendal Serna, PT PT - HOME VISIT 01/30/2024 9:00 AM CDT Home Care Visit On License [facility] [address] [place] [phone] Geneva Sanchez, LOS SN - INITIAL ASSESSMENT 01/25/2024 1:30 PM CDT Home Care Visit On License [facility] [address] [place] [phone] Coleman Greene, PT PT - HOME VISIT 01/25/2024 Travel 01/24/2024 1:00 PM CDT Home Care Visit On License [facility] [address] [place] [phone] Dar Phillips, OT OT - INITIAL ASSESSMENT 01/24/2024 9:30 AM CDT Home Care Visit On License [facility] [address] [place] [phone] Fabiola Mathis FUR CUTTING MACHINE OPERATOR - HOME VISIT 01/24/2024 Home Care Visit On License [facility] [address] [place] [phone] Narcisa Atkinson, RN CARE COORDINATION 01/23/2024 Home Care Visit On License [facility] [address] [place] [phone] Narcisa Atkinson, RN CARE COORDINATION 01/20/2024 Refill [facility] [address] [place] [address] Toshia Hooks NP Refill Request 01/18/2024 1:45 PM CDT Home Care Visit On License [facility] [address] [place] [phone] Kendal Serna, PT PT - OASIS START OF CARE 01/18/2024 10:30 AM CDT Phone Office Visit [facility] [address] [place] [address] Nikolai Ibarra MD 01/18/2024 Plan of Care Documentation On License Of [facility] [address] [place] [address] 01/18/2024 Patient Outreach [facility] [address] [place] [address] Maria R Ho, RN Primary RN Care Management; Hospital F/U (Lace 44) 01/18/2024 Travel 01/12/2024 9:13 PM CDT - 01/17/2024 5:23 PM CDT Hospital Encounter 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, macular edema presence unspecified, unspecified laterality, unspecified proliferative retinopathy type (HC); Heel ulcer, right, with unspecified severity (HC) Discharge Disposition: [facility] 01/09/2024 Refill [facility] [address] [place] [address] Barbara Valentin DO Refill Request (Fluoxetine) 01/09/2024 Refill [facility] [address] [place] [address] Elian Humphrey MD Refill Request (Torsemide) 01/06/2024 4:00 PM CDT Office Visit [facility] [address] [place] [address] Toshia Hooks NP Follow Up; Pain (Multi source; was told by her Comic Writer she can ot use OTC Voltaren gel., which had been helping her O.A. pain (hands; wrists; shoulders; ) ) 01/06/2024 Travel 01/02/2024 Telephone [facility] [address] [place] [address] Barbara Valentin, DO Follow Up from Last [...] Description 04/02/2024 2:10 PM CDT Office Visit [facility] [address] [place] [address] Barbara Valentin DO [address] [place] [address] 04/02/2024 3:25 PM CDT Office Visit [facility] [address] [place] [address] Barbara Valentin, DO [address] [place] [address] 05/04/2024 3:00 PM CDT Office Visit [facility] [address] [place] [address] Barbara Valentin, DO [address] [place] [address] 05/04/2024 3:30 PM CDT Phone Office Visit [facility] [address] [place], [place] [phone] Nikolai Ibarra MD [address] [place] [address] Health Maintenance Due Date Last Done Comments [...] 03/18/2020, Additional history exists Fecal testing sDNA-FIT ([place] guard) for age 45-75 11/10/2024 11/10/2021 Pneumococcal series for age 6-64 (3 of 3 - PPSV23 or PCV20) 2026 08/17/2016, 08/14/2014, 07/04/2005, Additional history exists Lipids for age 45-75 04/28/2027 04/28/2022, 08/17/2019, 08/31/2018, Additional history exists Tdap Completed 08/25/2010 HIV for age 15-65 Completed 07/21/2015 Hepatitis C screening for ag e 18-79 Completed 02/16/2018 Medical Devices Implanted Type Area Dispatcher Service Or Work Device Identifier Shelf Expiration Date Model / Serial / Lot [id number] 2x12mm [[id number]] Implanted:Qty: 1 on 08/08/[address] [facility] Explanted:at [facility] (Quantity not on file) Axial [id number]# / [id number] / Stem Compnt Primary 8mm Mini - [id number] Implanted:Qty: 1 on 03/17/[address] [facility] Right: Shoulder BIOMET [id number]# / / [id number] Head Hum Bio-Mod [id number] - [id number] Implanted:Qty: 1 on 03/17/[address] [facility] Right: Shoulder BIOMET [id number]# / / [id number] Base Glenoid Hybrid 4mm Sm - [id number] Implanted:Qty: 1 on 03/17/[address] [facility] Right: Shoulder BIOMET [id number]# / / [id number] Cmnt 1/2 Dosehowmedica - [id number] Implanted:Qty: 1 on 03/17/[address] [facility] Right: Shoulder [employer] 6188-1-01 0# / / [id number] Post Glenoid Hybrid Regenerex - [id number] Implanted:Qty: 1 on 03/17/[address] [facility] Right: Shoulder BIOMET [id number] # / / [id number] Head Humeral 44x15 Co Cr Biomodular - [id number] Implanted:Qty: 1 on 07/12/[address] [facility] Left: Shoulder BIOMET [id number]# / / [id number] Shoulder Stem Implanted:Qty: 1 on 07/12/[address] [facility] Left: Shoulder [id number] / / [id number] Description:SHOULDER STEM Cmnt Bone 1/2 Dosehowmed[employer] - [id number] Implanted:Qty: 1 on 07/12/[address] [facility] Left: Shoulder [employer] 6188-1-01 0# / / [id number] Post Glenoid Hybrid Regenerex - [id number] Implanted:Qty: 1 on 07/12/[address] [facility] Left: Shoulder BIOMET [id number] # / / [id number] Base Glenoid Hybrid 4mm Sm - [id number] Implanted:Qty: 1 on 07/12/[address] [facility] Left: Shoulder BIOMET [id number]# / / [id number] Procedures Procedure Name Priority Date/Time Associated Diagnosis [...] HIV 1/2 Add On 07/21/2015 9:40 AM GAMING TABLE OPERATOR ROUTE SALES TRAINEE THIN PREP PAP SCREEN IMAGED Routine 08/17/2012 4:02 PM GAMING TABLE OPERATOR Screening for malignant neoplasm of the [...] - 100 mg/dL 01/17/2024 11:35 AM CDT [facility] Blood BLOOD SPECIMEN / Unknown 01/17/2024 11:27 AM CDT 01/17/2024 11:35 AM CDT Helder García MD CHEMISTRY [facility] [address] [place] [address], * (ABNORMAL) CREATININE (01/17/2024 8:20 AM CDT) Only the most recent of3 resultswithin the time period is included. eGFR 47(L) >90 mL/min/1.7 3m2 01/17/2024 9:06 AM CDT [facility] Comment:As of 2021, eG FR is calculated by the CKD-EPI creatinine equation without race adjustment. ??eGFR can be influenced by muscle mass, exercise, and diet. ??The reported eGFR is an estimation only and is only applicable if the renal function is stable. CREATININE 1.28(H) 0.50 - 0.90 mg/dL 01/17/2024 9:06 AM CDT [facility]AL [facility] Blood BLOOD SPECIMEN / Unknown Non-Lab Venipuncture / Unknown 01/17/2024 8:20 AM CDT 01/17/2024 8:26 AM CDT Helder García MD CHEMISTRY Performing Organization Address [facility] Co de Phone Number [facility] [address] [place] [address], * PHOSPHORUS (01/17/2024 8:20 AM CDT) Only the most recent of5 resultswithin the time period is included. PHOSPHORUS 2.6 2.5 - 4.5 mg/dL 01/17/2024 9:06 AM CDT [facility] Blood BLOOD SPECIMEN / Unknown Non-Lab Venipuncture / Unknown 01/17/2024 8:20 AM CDT 01/17/2024 8:26 AM CDT Sarah Betancourt RN CHEMISTRY Performing Organization Address [facility] de Phone Number [facility] [address] [place] [address], * (ABNORMAL) BASIC METABOLIC PANEL (01/17/2024 8:20 AM CDT) Only the most recent of5 resultswithin the time period is included. SODIUM 139 136 - 145 mmol/L 01/17/2024 12:35 PM CDT [facility] POTASSIUM 3.9 3.5 - 5.1 mmol/L 01/17/2024 12:35 PM CDT [facility] CHLORIDE 103 98 - 107 mmol/L 01/17/2024 12:35 PM CDT [facility] CO2,TOTAL 24 22 - 29 mmol/L 01/17/2024 12:35 PM CDT [facility] ANION GAP 12 5 - 18 01/17/2024 12:35 PM CDT [facility] GLUCOSE 162(H) 70 - 99 mg/dL 01/17/2024 12:35 PM CDT [facility] CALCIUM 8.7(L) 8.8 - 10.2 mg/dL 01/17/2024 12:35 PM CDT [facility] BUN 17 8 - 23 mg/dL 01/17/2024 12:35 PM CDT [facility] CREATININE 1.31(H) 0.50 - 0.90 mg/dL 01/17/2024 12:35 PM CDT [facility] BUN/CREAT RATIO 13 10 - 20 12:35 PM CDT [facility] eGFR 46(L) >90 mL/min/1.7 3m2 01/17/2024 12:35 PM CDT [facility] Comment: As of 2021, [...] 8:26 AM CDT Helder García MD CHEMISTRY [facility] [address] [place] [address], * CLOSTRIDIOIDES DIFFICILE TOXIN PCR (01/16/2024 12:27 PM CDT) CLOSTRIDIUM DIFFICILE PCR Negative 01/16/2024 2:18 PM CDT [facility] PRESUMPTIVE NAP1 STRAIN Negative 01/16/2024 2:18 PM CDT [facility] Stool STOOL SPECIMEN / Unknown Non-Blood / Unknown 01/16/2024 12:27 PM CDT 01/16/2024 12:51 PM CDT Narrative [facility] - 01/16/2024 2:18 PM CDT The NAP1 (027 or BI) strain is a hypervirulent strain. Detection may be useful for epidemiological purposes. Helder García MD MICROBIOLOGY Performing Organization Address [facility] Co de Phone Number [employer] [address] [address], * SCAN CORRESP-EKG RESULTS (01/16/2024 9:07 AM [...] Fabrizio Montano MD HEMATOLOGY Performing Organization Address City/[facility]/ZIP Co de Phone Number [facility] [address] [place] [address], * VANCOMYCIN (01/16/2024 6:30 AM CDT) Only the most recent of3 resultswithin the time period is included. VANCOMYCIN 13.0 ug/mL 01/16/2024 7:42 AM CDT [facility] Comment:No Reference Range D efined. DATE OF LAST DOSE,RANDOM Not Given 01/16/2024 7:42 AM CDT [facility] TRA [facility]ORAT[facility] TIME OF LAST DOSE,RANDOM Not Given 01/16/2024 7:42 AM CDT [facility] Blood BLOOD SPECIMEN / Unknown Venipuncture / Unknown 01/16/2024 6:30 AM CDT 01/16/2024 6:58 AM CDT Barbara Holcomb NP CHEMISTRY Performing Organization Address [facility]/ZIP Co de Phone Number [facility] [address] [address], [place] * (ABNORMAL) PLATELET COUNT (01/15/2024 6:02 AM CDT) PLATELET COUNT 166 140 - 440 thou/cu mm 01/15/2024 6:44 AM CDT [facility] MPV 11.2(H) 6.5 - 11.0 fL 01/15/2024 6:44 AM CDT [facility] Blood BLOOD SPECIMEN / Unknown Venipuncture / Unknown 01/15/2024 6:02 AM CDT 01/15/2024 6:26 AM CDT Fabrizio Montaon MD HEMATOLOGY Performing Organization Address [facility]/ZIP Co de Phone Number [facility] [address] [address], [place] * WHITE BLOOD COUNT (01/15/2024 6:02 AM CDT) WHITE BLOOD COUNT 4.9 4.5 - 11.0 thou/cu mm 01/15/2024 6:44 AM CDT [facility] NRBC 0.0 % 01/15/2024 6:44 AM CDT [facility] ABS NRBC 0.0 thou /cu mm 01/15/2024 6:44 AM CDT [facility]AL [facility] Blood BLOOD SPECIMEN / Unknown Venipuncture / Unknown 01/15/2024 6:02 AM CDT 01/15/2024 6:26 AM CDT Fabrizio Montano MD HEMATOLOGY Performing Organization Address City/[facility]/ZIP Co de Phone Number [facility] [address] [address], [place] * Sodium AM (01/15/2024 6:02 AM CDT) SODIUM 142 136 - 145 mmol/L 01/15/2024 7:13 AM CDT [facility] Blood BLOOD SPECIMEN / Unknown Venipuncture / Unknown 01/15/2024 6:02 AM CDT 01/15/2024 6:27 AM CDT Fabrizio Montano MD CHEMISTRY Performing Organization Address [facility] Co de Phone Number [facility] [address] [place] [phone], [place] * Potassium AM (01/15/2024 6:02 AM CDT) Only the most recent of3 resultswithin the time period is included. POTASSIUM 4.4 3.5 - 5.1 mmol/L 01/15/2024 7:13 AM CDT [facility] Blood BLOOD SPECIMEN / Unknown Venipuncture / Unknown 01/15/2024 6:02 AM CDT 01/15/2024 6:27 AM CDT Fabrizio Montano MD CHEMISTRY Performing Organization Address [facility] Co de Phone Number [facility] [address] [place] [address], [place] * SCAN-CARDIAC STRIP (01/14/2024 7:07 AM CDT) Scanner OTHER * (ABNORMAL) CBC W PLT NO DIFF (01/14/2024 5:28 AM CDT) WHITE BLOOD COUNT 8.5 4.5 - 11.0 thou/cu mm 01/14/2024 6:33 AM CDT [facility] RED BLOOD COUNT 3.04(L) 4.00 - 5.20 mil/cu mm 01/14/2024 6:33 AM CDT [facility] HEMOGLOBIN 8.9(L) 12.0 - 16.0 g/dL 01/14/2024 6:33 AM T [facility] HEMATOCRIT 27.5(L) 33.0 - 51.0 % 01/14/2024 6:33 AM CDT [facility] MCV 91 80 - 100 fL 01/14/2024 6:33 AM T [facility] MCH 29.3 26.0 - 34.0 pg 01/14/2024 6:33 AM CDT [facility] MCHC 32.4 32.0 - 36.0 g/dL 01/14/2024 6:33 AM T [facility] RDW 14.4 11.5 - 15.5 % 01/14/2024 6:33 AM CDT [facility] PLATELET COUNT 198 140 - 440 thou/cu mm 01/14/2024 6:33 AM T [facility] MPV 11.4(H) 6.5 - 11.0 fL 01/14/2024 6:33 AM CDT [facility] NRBC 0.0 % 01/14/2024 6:33 AM T [facility] ABS NRBC 0.0 thou /cu mm 01/14/2024 6:33 AM T [facility] Blood BLOOD SPECIMEN / Unknown Non-Lab Venipuncture / Unknown 01/14/2024 5:28 AM CDT 01/14/2024 6:31 AM CDT Barbara Holcomb NP HEMATOLOGY [facility] [address] [place] [address], * (ABNORMAL) CALCIUM IONIZED HOSPITAL DRAW ONLY (01/14/2024 5:28 AM CDT) Only the most recent of3 resultswithin the time period is included. CALCIUM,IONIZE D 1.30(H) 1.15 - 1.27 mmol/L 01/14/2024 6:03 AM CDT [facility] Blood BLOOD SPECIMEN / Unknown Non-Lab Venipuncture / Unknown 01/14/2024 5:28 AM CDT 01/14/2024 5:49 AM CDT Grace Eldridge MD CHEMISTRY [facility] [address] [place] [address], * ECHO TTE COMPLETE W CONTRAST (01/13/2024 3:56 PM CDT) Pathologist [facility] AORTIC VALVE MEAN PG 7 mmHg EJECTION FRACTION 64 % LVEDD 4.1 cm EJECTION FRACTION 60 - 65% Anatomical Region Laterality Modality Ultrasound 01/13/2024 2:53 PM CDT Narrative 01/13/2024 4:39 PM CDT ECHOCARDIOGRAM MIKAYLA KUHN ? Accession#: ?? [id number] : ?1960 63 years Study Date: ?? 01/13/2024 2:53:14 PM Gender: F ?BP: ? 114/44 mmHg Height: 152.00 cm ?BSA: ?1.93 m? ? ? Weight: 98.00 kg ? Tech: ? KBA ? Referring MD: BARBARA HOLCOMB Site: ? [facility] Reading Location: ANW IP Patient [...] documentation: 2 ml diluted Definity, lot #[id number], [facility]# [id number] was administered peripherally to enhance visualization of all left ventricular segments. . This study was interpreted by an [facility] accredited facility. ??Final ?? Procedure Note Travon Blood MD - 01/13/2024 ECHOCARDIOGRAM MIKAYLA KUHN : 1960 63 years Study Date: 01/13/2024 2:53:14 PM Gender: F BP: 114/44 mmHg Height: 152.00 cm BSA: 1.93 m? ? ? Weight: 98.00 kg Tech: PASQUALE Referring MD: BARBARA HOLCOMB Site: [facility] Reading Location: ANW IP Patient [...] documentation: 2 ml diluted Definity, lot #[id number], [facility]#[id number] was administered peripherally to enhance visualization of allleft ventricular segments. . This study was interpreted by an [facility] accredited facility. Final Barbara Holcomb PRODUCT DEVELOPMENT SPECIALIST ECHO ORD * US ARTERIAL LOWER EXTREMITY [...] 125 mmHg Left Brachial: 111 mmHg Right LIME SPREADER: Noncompressible Right DPA: 115 mmHg (SAMUEL 0.92) Left LIME SPREADER: Noncompressible Left DPA: Noncompressible SAMUEL: 1.0-1.4 - normal 0.9-0.99 - borderline 0.80-0.89 - mild 0.50-0.79 - moderate 0.30-0.49 - severe < 0.30 - critical RIGHT: PROGRAM SERVICES PLANNER PROX: 204 cm/sec; triphasic waveforms PROGRAM SERVICES PLANNER DIST: 138 cm/sec; triphasic waveforms PFA: 97 cm/sec; triphasic waveforms SFA PROX: 140, 111 cm/sec; triphasic waveforms SFA MID: 113, 74 cm/sec; triphasic waveforms SFA DIST: 107, 113 cm/sec; triphasic waveforms POP PROX: 105 cm/sec; triphasic waveforms POP DIST: 89 cm/sec; triphasic waveforms LIME SPREADER: 32 cm/sec; triphasic waveforms KAITLYN: 58 cm/sec; triphasic waveforms DPA: 56 cm/sec; triphasic waveforms LEFT: PROGRAM SERVICES PLANNER PROX: 193 cm/sec; triphasic waveforms PROGRAM SERVICES PLANNER DIST: 152 cm/sec; triphasic waveforms PFA: 98 cm/sec; triphasic waveforms SFA PROX: 119, 109 cm/sec; triphasic waveforms SFA MID: 103, 102 cm/sec; triphasic waveforms SFA DIST: 103, 100 cm/sec; triphasic waveforms POP PROX: 124 cm/sec; triphasic waveforms POP DIST: 85 cm/sec; triphasic waveforms LIME SPREADER: 169 cm/sec; triphasic waveforms KAITLYN: 91 cm/sec; [...] 125 mmHg Left Brachial: 111 mmHg Right LIME SPREADER: Noncompressible Right DPA: 115 mmHg (SAMUEL 0.92) Left LIME SPREADER: Noncompressible Left DPA: Noncompressible SAMUEL: 1.0-1.4 - normal 0.9-0.99 - borderline 0.80-0.89 - mild 0.50-0.79 - moderate 0.30-0.49 - severe < 0.30 - critical RIGHT: PROGRAM SERVICES PLANNER PROX: 204 cm/sec; triphasic waveforms PROGRAM SERVICES PLANNER DIST: 138 cm/sec; triphasic waveforms PFA: 97 cm/sec; triphasic waveforms SFA PROX: 140, 111 cm/sec; triphasic waveforms SFA MID: 113, 74 cm/sec; triphasic waveforms SFA DIST: 107, 113 cm/sec; triphasic waveforms POP PROX: 105 cm/sec; triphasic waveforms POP DIST: 89 cm/sec; triphasic waveforms LIME SPREADER: 32 cm/sec; triphasic waveforms KAITLYN: 58 cm/sec; triphasic waveforms DPA: 56 cm/sec; triphasic waveforms LEFT: PROGRAM SERVICES PLANNER PROX: 193 cm/sec; triphasic waveforms PROGRAM SERVICES PLANNER DIST: 152 cm/sec; triphasic waveforms PFA: 98 cm/sec; triphasic waveforms SFA PROX: 119, 109 cm/sec; triphasic waveforms SFA MID: 103, 102 cm/sec; triphasic waveforms SFA DIST: 103, 100 cm/sec; triphasic waveforms POP PROX: 124 cm/sec; triphasic waveforms POP DIST: 85 cm/sec; triphasic waveforms LIME SPREADER: 169 cm/sec; triphasic waveforms KAITLYN: 91 cm/sec; [...] 01/14/2024 4:57:16 PM (Electronically Signed) Freya Schafer PRODUCT DEVELOPMENT SPECIALIST US * US RENAL AND BLADDER COMPLETE [...] CDT) CULTURE RESULT(A) 01/16/2024 2:44 PM CDT [facility] CULTURE 3+ Corynebacterium striatum 01/16/2024 2:44 PM CDT [facility] CULTURE 2+ Mixed oni present 01/16/2024 2:44 PM CDT [facility] GRAM STAIN No PMNs 01/16/2024 2:44 PM CDT [facility] GRAM STAIN 2+ RBCs 01/16/2024 2:44 PM CDT [facility] GRAM STAIN No Epithelial cells 01/15 2:44 PM CDT [facility] GRAM STAIN 2+ Gram Positive Bacilli 01/16/2024 2:44 PM CDT [facility] Other (Other) Non-Blood / Unknown 01/13/2024 11:49 AM CDT 01/13/2024 12:00 PM CDT Narrative [facility] - 01/16/2024 2:44 PM CDT Mixed oni; No Staphylococcus aureus, beta-Streptococcus, Streptococcus pneumoniae, or Pseudomonas aeruginosa isolated. Freya Schafer NP MICROBIOLOGY Performing Organization Address City/[facility]/ZIP Co de Phone Number [facility] [address] [place] [address], * ANAEROBIC CULTURE (01/13/2024 11:49 AM CDT) CULTURE No anaerobes isolated 01/19/2024 10:01 AM CDT [facility] Other (Other) Non-Blood / Unknown 01/13/2024 11:49 AM CDT 01/13/2024 12:00 PM CDT Freya Schafer NP MICROBIOLOGY Performing Organization Address City/[facility]/ZIP Co de Phone Number [facility] [address] [place] [address], * (ABNORMAL) Electrolytes Panel - DKA (01/13/2024 [...] Ifeanyi Hernández RN CHEMISTRY Performing Organization Address [facility] Co de Phone Number [facility] [address] [place] [address], * SCAN-CARDIAC STRIP (01/13/2024 8:00 AM CDT) Scanner OTHER * MAGNESIUM (01/13/2024 4:22 AM CDT) Only the most recent of2 resultswithin the time period is included. MAGNESIUM 1.9 1.6 - 2.4 mg/dL 01/13/2024 5:07 AM CDT [facility] Blood BLOOD SPECIMEN / Unknown Non-Lab Venipuncture / Unknown 01/13/2024 4:22 AM CDT 01/13/2024 4:41 AM CDT Ifeanyi Hernández RN CHEMISTRY Performing Organization Address [facility] Co de Phone Number [facility] [address] [place] [address], [place] * (ABNORMAL) Serum Glucose - DKA [...] Emily Guzman MD CHEMISTRY Performing Organization Address City/[facility]/ZIP Co de Phone Number [facility] [address] [address], * (ABNORMAL) TROPONIN T (HS) ONE TIME (01/12/2024 11:39 PM CDT) [facility] TROPONIN T HS 45(H) 6-10 ng/L ng/L 01/13/2024 12:22 AM CDT [facility] Blood BLOOD SPECIMEN / Unknown Non-Lab Venipuncture / Unknown 01/12/2024 11:39 PM CDT 01/12/2024 11:45 PM CDT Emily Guzman MD CHEMISTRY Performing Organization Address City/[facility]/ZIP Co de Phone Number [facility] [address] [address], [place] * 12 Lead EKG (01/12/2024 10:16 PM CDT) [facility] Interpretation Normal sinus rhythm Left axis deviation Abnormal ECG When compared with ECG of 02-Jan-2019 02:01, Nonspecific T wave abnormality now evident in Lateral leads BEYOND NOW Ventricular Rate 78 BPM BEYOND NOW Atrial Rate 78 BPM BEYOND NOW P-R Interval 160 ms BEYOND NOW QRS Duration 82 ms BEYOND NOW QT 400 ms BEYOND NOW QTc 456 ms BEYOND NOW P [place] 72 degrees BEYOND NOW R [place] -31 degrees BEYOND NOW T [place] 69 degrees BEYOND NOW 01/12/2024 10:1 6 PM CDT 01/13/2024 8:20 PM CDT Emily Guzman MD EKG ORD BEYOND NOW [place], [place] * MRSA/SA PCR (01/12/2024 10:07 PM CDT) MRSA DNA PCR Negative Negative 01/12/2024 11:33 PM CDT [facility] STAPHYLOCOCCUS AUREUS PCR Negative Negative 01/12/2024 11:33 PM CDT [facility] Other SPECIMEN FROM INTERNAL NOSE / Unknown Non-Blood / Unknown 01/12/2024 10:07 PM CDT 01/12/2024 10:13 PM CDT Narrative [facility] - 01/12/2024 11:33 PM CDT Test result does not preclude MRSA or SA nasal colonization. Chaparro Sneed DO MICROBIOLOGY [facility] [address] [place] [address], * (ABNORMAL) Urine Culture (01/12/2024 10:07 PM CDT) CULTURE RESULT(A) 01/16/2024 6:58 AM CDT [facility] CULTURE 10,000-50,000 CFU/mL Proteus mirabilis 01/16/2024 6:58 AM CDT [facility] CULTURE 50,000-100,000 CFU/mL Danita albicans 01/16/2024 6:58 AM CDT [facility] Urine URINE SPECIMEN [...] Guzman MD MICROBIOL OGY Performing Organization Address City/[facility] Co de Phone Number [facility] [address] * Blood Culture (01/12/2024 9:40 PM CDT) Only the most recent of2 resultswithin the time period is included. CULTURE No Growth. 01/16/2024 11:23 PM CDT [facility] Blood BLOOD SPECIMEN / Unknown Venipuncture / Unknown 01/12/2024 9:40 PM CDT 01/12/2024 9:52 PM CDT Narrative [facility] - 01/16/2024 11:23 PM CDT Low volume blood culture received; possible false negative culture. Emily Guzman MD MICROBIOL OGY Performing Organization Address City/[facility] Co de Phone Number [facility] [address] [address], * (ABNORMAL) TROPONIN T(HS) ACUTE W/2HR REFLEX (01/12/2024 9:37 PM CDT) [facility] TROPONIN T HS 47(H) 6-10 ng/L [...] department patient population. Emily Guzman MD CHEMISTRY [facility] [address] [place] [address], * (ABNORMAL) CBC WITH AUTO DIFFERENTIAL (01/12/2024 9:37 PM CDT) WHITE BLOOD COUNT 14.9(H) 4.5 - 11.0 thou/cu mm 01/12/2024 9:54 PM CDT [facility] RED BLOOD COUNT 3.61(L) 4.00 - 5.20 mil/cu mm 01/12/2024 9:54 PM CDT [facility] HEMOGLOBIN 10.5(L) 12.0 - 16.0 g/dL 01/12/2024 9:54 PM CDT [facility] HEMATOCRIT 32.6(L) 33.0 - 51.0 % 01/12/2024 9:54 PM CDT [facility] MCV 90 80 - 100 fL 01/12/2024 9:54 PM CDT [facility] MCH 29.1 26.0 - 34.0 pg 01/12/2024 9:54 PM CDT [facility] MCHC 32.2 32.0 - 36.0 g/dL 01/12/2024 9:54 PM CDT [facility] RDW 13.2 11.5 - 15.5 % 01/12/2024 9:54 PM CDT [facility] PLATELET COUNT 273 140 - 440 thou/cu mm 01/12/2024 9:54 PM CDT [facility] MPV 11.0 6.5 - 11.0 fL 01/12/2024 9:54 PM CDT [facility] NRBC 0.0 % 01/12/2024 9:54 PM CDT [facility] ABS NRBC 0.0 thou /cu mm 01/12/2024 9:54 PM CDT [facility] % NEUT 80.3 % 01/12/2024 9:54 PM CDT [facility] % LYMPH 9.6 % 01/12/2024 9:54 PM CDT [facility] % MONO 9.2 % 01/12/2024 9:54 PM CDT [facility] % EOS 0.1 % 01/12/2024 9:54 PM CDT [facility] % BASO 0.1 % 01/12/2024 9:54 PM CDT [facility] % IMMATURE GRAN (METAS,MYELOS,FL OS) 0.7 % 01/12/2024 9:54 PM CDT [facility] ABSOLUTE NEUTROPHILS 12.0(H) 1.7 - 7.0 thou/cu mm 01/12/2024 9:54 PM CDT [facility] ABSOLUTE LYMPHOCYTES 1.4 0.9 - 2.9 thou/cu mm 01/12/2024 9:54 PM CDT [facility] ABSOLUTE MONOCYTES 1.4(H) <0.9 thou/cu mm 01/12/2024 9:54 PM CDT [facility] ABSOLUTE EOSINOPHILS 0.0 <0.5 thou/cu mm 01/12/2024 9:54 PM CDT [facility] ABSOLUTE BASOPHILS 0.0 <0.3 thou/cu mm 01/12/2024 9:54 PM CDT [facility] ABSOLUTE IMMATURE GRANULOCYTES(MET ,MYELOS,PROS) 0.1 <0.3 thou/cu mm 01/12/2024 9:54 PM CDT [facility] Blood BLOOD SPECIMEN / Unknown Non-Lab Venipuncture / Unknown 01/12/2024 9:37 PM CDT 01/12/2024 9:46 PM CDT Emily Guzman MD HEMATOLOG Y [facility] [address] [place] [address], * (ABNORMAL) BLOOD GAS,VENOUS (01/12/2024 9:37 PM CDT) PH, VENOUS 7.25(L) 7.32 - 7.43 01/12/2024 9:52 PM CDT [facility] PCO2, VENOUS 44 41 - 51 mmHg 01/12/2024 9:52 PM CDT [facility] PO2, VENOUS 48(H) 35 - 40 mmHg 01/12/2024 9:52 PM CDT [facility] HCO3,VENOUS 19(L) 22 - 29 mmol/L 01/12/2024 9:52 PM CDT [facility] BASE EXCESS, VENOUS, POCT -7.7(L) -2.0 - 3.0 01/12/2024 9:52 PM CDT [facility] O2 SATURATION, VENOUS 85(H) 70 - 75 % 01/12/2024 9:52 PM CDT [facility] INSPIRED O2 21 01/12/2024 9:52 PM CDT [facility] Comment:Unit of Measure: Lit ers (L) if <=20; Percent (%) if >20 PATIENT TEMPERATURE 36.9 Degrees C 01/12/2024 9:52 PM CDT [facility] Blood VENOUS BLOOD SPECIMEN / Unknown Non-Lab Venipuncture / Unknown 01/12/2024 9:37 PM CDT 01/12/2024 9:46 PM CDT Emily Guzman MD CHEMISTRY [facility] [address] [place] [address], * Protime - INR (01/12/2024 9:37 PM CDT) INR 1.0 <1.3 01/12/2024 9:56 PM CDT [facility] PROTIME 11.5 10.3 - 12.3 sec 01/12/2024 9:56 PM CDT [facility] Blood BLOOD SPECIMEN / Unknown Non-Lab Venipuncture / Unknown 01/12/2024 9:37 PM CDT 01/12/2024 9:46 PM CDT Narrative [facility] - 01/12/2024 9:56 PM CDT [...] on UFH. Emily Guzman MD HEMATOLOG Y [facility] [address] [place] [id number], * (ABNORMAL) HEMOGLOBIN A1C MONITORING (POCT) (01/12/2024 9:37 PM CDT) HEMOGLOBIN A1C MONITORING (POCT) 9.3(H) <=6.4 % 01/14/2024 10:29 AM CDT [facility] Blood BLOOD SPECIMEN / Unknown Non-Lab Venipuncture / Unknown 01/12/2024 9:37 PM CDT 01/12/2024 9:46 PM CDT Narrative [facility] - 01/14/2024 10:29 AM CDT [...] Barbara Holcomb NP CHEMISTRY Performing Organization Address [facility]/State/ZIP Co de Phone Number [facility] [address] [place] [address], * (ABNORMAL) Hepatic Function Panel (01/12/2024 9:37 PM CDT) [facility] ALBUMIN 3.2(L) 4.0 - 4.9 g/dL 01/12/2024 10:16 PM CDT [facility] PROTEIN,TOTAL 6.4 6.0 - 8.0 g/dL 01/12/2024 10:16 PM CDT [facility] BILIRUBIN,TOTAL 0.2 0.0 - 1.2 mg/dL 01/12/2024 10:16 PM CDT [facility] BILIRUBIN,DIRECT <0.2 0.0 - 0.3 mg/dL 01/12/2024 10:16 PM CDT [facility] BILIRUBIN,INDIRE CT 01/12/2024 10:16 PM CDT [facility] Comment:Unable to calculate, Direct Bili <0.2 ALK PHOSPHATASE 122(H) 35 - 104 IU/L 01/12/2024 10:16 PM CDT [facility] ALT (SGPT) 21 10 - 35 IU/L 01/12/2024 10:16 PM CDT [facility] AST (SGOT) 20 10 - 35 IU/L 01/12/2024 10:16 PM CDT [facility] Blood BLOOD SPECIMEN / Unknown Non-Lab Venipuncture / Unknown 01/12/2024 9:37 PM CDT 01/12/2024 9:46 PM CDT Emily Guzman MD CHEMISTRY [facility] [address] [place] [address], * SCAN-CARDIAC STRIP (01/12/2024 9:20 PM CDT) [...] health care provider. XR MAMMO BILAT SCREENING [[id number]] CLINICAL HISTORY: ??This is an asymptomatic 61 y.o. patient. INDICATION FOR EXAM: Mammogram Screening. TECHNIQUE: CC & MLO views were obtained. ??This study was evaluated with the assistance of Computer-Aided Detection. COMPARISON FILM: Yes [facility] FINDINGS: ??The breasts are extremely dense, which lowers the sensitivity of mammography. There are no dominant masses, suspicious micro calcifications or areas of architectural distortion. Shania Montiel MD MAMMO * LIPID PANEL W REFLEX MEASURED LDL (04/28/2022 1:44 PM CDT) CHOLESTEROL,TOTAL 139 100 - 199 mg/dL 04/30/2022 6:25 PM CDT [facility] TRIGLYCERIDES 141 <150 mg/dL 04/30/2022 6:25 PM CDT [facility] HDL CHOLESTEROL 42 >40 mg/dL 6:25 PM CDT [facility] NON-HDL CHOLESTEROL 97 <145 mg/dl 04/30/2022 6:25 PM CDT [facility] CHOL/HDL RATIO 3.31 <4.50 04/30/2022 6:25 PM CDT [facility] LDL CHOLESTEROL 69 <=130 mg/dL 04/30/2022 6:25 PM CDT [facility] VLDL CHOLESTEROL 28 <=30 mg/dL 04/30/2022 6:25 PM CDT [facility] PROVIDER ORDERED STATUS RANDOM 04/30/2022 6:25 PM CDT [facility] Blood BLOOD SPECIMEN / Unknown Venipuncture / Unknown 04/28/2022 1:44 PM CDT 04/28/2022 1:45 PM CDT Shania Montiel MD CHEMISTRY Performing Organization Address City/[facility]/ZIP Co de Phone Number [facility] [address] [place] [address], [place] * FECAL DNA (AKA COLOGUARD) (11/10/2021 1:00 PM CDT) Shania Montiel MD COMMUNICATION ORD * ANTI HCV [[id number]] (02/16/2018 4:20 PM CDT) HEPATITIS C ANTIBODY Non-React alex Non-React alex 02/17/2018 2:48 PM CDT [facility] Comment:Antibodies to HCV no t detected; does not exclude the possibility of exposure to HCV. Blood BLOOD SPECIMEN / Unknown Butterfly / Unknown 02/16/2018 4:20 PM CDT 02/16/2018 4:20 PM CDT Coleman Plata MD SEND OUTS [facility] [address] [place] [id number], [place] * HIV 1&2 TODAY (07/21/2015 9:40 AM GAMING TABLE OPERATOR) HIV-1/HIV-2 ANTIBODY Non-Reacti ve Non-Reacti ve 07/21/2015 10:31 AM GAMING TABLE OPERATOR [facility] Blood specimen (specimen) BLOOD SPECIMEN / Unknown Venipuncture / Unknown 07/21/2015 9:40 AM GAMING TABLE OPERATOR 07/21/2015 9:47 AM GAMING TABLE OPERATOR Narrative [facility] - 07/21/2015 10:31 AM GAMING TABLE OPERATOR HIV-1 p24 and HIV-1/HIV-2 Ab not detected Kait Morales DO SEND OUTS [facility] [address] [place] [address], [place] * ROUTE SALES TRAINEE THIN PREP PAP SCREEN IMAGED (08/17/2012 4:02 PM GAMING TABLE OPERATOR) Pathologist [facility] CYTOLOGY CYTOPATHOLOGY REPORT [facility] Status: Final Status ?[id number] CLINICAL INFORMATION Last Date of LMP ? :07/03/2012 Last Pap Date ?:02/01/2011 Last Pap Result ?:NIL ABN Hoffman/Bx Past 5 YRS :None Hormone Usage ?:BCP/OCP/Patch/R ing Menstrual Status ? :Regular Periods Hoffman/Bx done today ? :No Additional Information :None [...] COLLECTED:08/17/12 ? ACCESSIONED: ??08/18/12 ?? SIGNED: ??08/21/12 [facility] PAP [place] CODE NIL [facility] Tissue specimen (specimen) (Cervical/Vagina l) 08/17/2012 4:02 PM GAMING TABLE OPERATOR 08/17/2012 4:00 PM GAMING TABLE OPERATOR Coleman Plata MD PATHOLOGY/CYTOLOGY [facility] INTERNAL ZIP [id number] [place] [address] from Last 3 Months or Most Recently [...] earlier this year (per report from [facility], not [facility]), 04/19/18 L cheek abscess exclusions for contact precaution discontinuation (if > 12 months since positive culture): resides in acute/director long term care care, receiving hemodialysis, has chronic open [...] 8:01 PM 07/15/2012 6:55 PM Care Teams Cigar Packing Examiner Relationship Specialty Start Date End Date Barbara Valentin DO [address] [place] [address] PCP - General Family Practice 11/15/22 Julio Ibrahim MD [address] [place] [address] Surgery - Orthopedics 02/01/11 Chuy Doss MD [address] [place] [address] Surgery - Vascular 02/01/11 Markel Strong MD [address] [place] [address] Provider Family Practice 08/08/20 Nikolai Ibarra MD [address] [place] [address] Endocrinology 09/07/22 Suad Ng/ [employer] CM Master Machinist 07/14/17 [facility] Home Health Nurse 07/01/17 [facility] BOAT CANVAS MAKER INSTALLER Services Home Health Aide 07/14/17 [facility] Services/ Ally Christianson [address] [place] [address] Master Machinist 07/07/17
--- OUTSIDE RECORDS SUMMARY | 2024-03-30 04:48 | XMS_ITS | Encounter Summary ---
Author Organization [facility] Address [address] [place] [address] Care Team Providers Care Mixing Machine Feeder Name Role Phone Barbara Valentin DO Primary Care Provider [phone] Encounter Details Date Type Department Care Team (Late st Contact Info) Description 02/01/2024 Telephone [facility] [place] [address] [place] [address] Gabriel Hicks MD [address] [place] [address] Social History Tobacco Use Types [...] on filedocumented in this encounter Care Teams Mixing Machine Feeder Relationship Specialty Start Date End Date Barbara Valentin DO [address] [place] [address] PCP - General Family Medicine 09/22/23 documented as of this encounter
--- OUTSIDE RECORDS SUMMARY | 2024-03-30 04:48 | XMS_ITS | Encounter Summary ---
Author Organization [facility] Address [address] [place] [address] Care Team Providers Care Rn Staff Name Role Phone Barbara Valentin DO Primary Care Provider [phone] Encounter Details Date Type Department Care Team (Late st Contact Info) Description 01/23/2024 Office Communication [facility] [place] [address] [place] [address] Ronnell Kirby [address] [place] [address] Social History Tobacco Use Types [...] on filedocumented in this encounter Care Teams Rn Staff Relationship Specialty Start Date End Date Barbara Valentin DO Roxy [place] [address] PCP - General Family Medicine 09/22/23 documented as of this encounter
--- OUTSIDE RECORDS SUMMARY | 2024-03-30 04:48 | XMS_ITS | Encounter Summary ---
Author Organization [facility] Address [address] [place] [address] Care Team Providers Care Forging Dies Final Finisher Name Role Phone Barbara Valentin DO Primary Care Provider [phone] Encounter Details Date Type Department Care Team (Late st Contact Info) Description 01/23/2024 Documentation Only [facility] [address] [place] [address] Ronnell Kirby [address] [place] [address] Social History Tobacco Use Types [...] ORDERAB LES Performing Organization Address [facility]/ZIP Co de Phone Number [facility] * [...] ORDERAB LES Performing Organization Address [facility] Co de Phone Number [facility] * (ABNORMAL) Creatine (01/15/2024) Creatine, Serum 1.71(H) [facility] GFR Calculated 34(L) [facility] Blood (Blood, Venous) 01/15/2024 Historical Provider MD LAB BLOOD ORDERAB LES Performing Organization Address [facility] Co de Phone Number [facility] * (ABNORMAL) Hemoglobin (01/15/2024) Hemoglobin 8.4(L) g/dL [facility] MCV 91.0 [facility] Blood (Blood, Venous) 01/15/2024 Historical Provider MD LAB BLOOD ORDERAB LES Performing Organization Address [facility] Co de Phone Number ALLINA [...] ORDERAB LES Performing Organization Address [facility] Co de Phone Number ALLINA [...] ORDERAB LES Performing Organization Address [facility] Co de Phone Number ALLINA [...] ORDERAB LES Performing Organization Address [facility] de Phone Number [facility] * (ABNORMAL) CBC [...] ORDERAB LES Performing Organization Address [facility] Co de Phone Number ALLINA [...] on filedocumented in this encounter Care Teams Forging Dies Final Finisher Relationship Specialty Start Date End Date Barbara Valentin DO [address] [place] [address] PCP - General Family Medicine 09/22/23 documented as of this encounter
--- OUTSIDE RECORDS SUMMARY | 2024-03-30 04:48 | XMS_ITS | Clinical Summary ---
Author Organization [facility] [place] [place] Address [address] [facility] [place] [address] Phone Care Team Providers Care Off Track Betting Manager Name Role Phone Barbara Valentin DO Primary Care Provider [phone] Allergies Active Allergy Reactions Criticality Noted Date [...] One Pack) 3 MG/DOSE powder Inhale 1 [place] into affected nostril(s) each time if needed [...] Team Description 02/01/2024 Telephone [facility] [address] [facility] [address] [place] [phone] Gabriel Hicks MD 01/23/2024 Documentation Only [facility] [address] [address] [facility] [address] [place] [phone] Ronnell Kirby 01/23/2024 Office Communication [facility] [address] [address] [facility] [address] [place] [phone] Ronnell Kirby from Last 3 Months Immunizations [...] LAB BLOOD ORDERAB LES Performing Organization Address City/[facility]/ZIP Co de Phone Number ALLINA * [...] BESSY from Last 3 Months Care Teams Off Track Betting Manager Relationship Specialty Start Date End Date Barbara Valentin DO [address] [place] [address] PCP - General Family Medicine 09/22/23
--- OUTSIDE RECORDS SUMMARY | 2024-03-30 04:48 | XMS_ITS | Encounter Summary ---
Author Organization [facility] [place] Address [address] [place] [address] Care Team Providers Care Telephone Information Supervisor Name Role Phone Barbara Valentin DO Primary Care Provider [phone] Encounter Details Date Type Department Care Team (Late st Contact Info) Description 09/22/2023 Documentation Only [facility] [place] [address] [facility] [address] [place] [address] No, Pcp Social History Tobacco [...] on filedocumented in this encounter Care Teams Telephone Information Supervisor Relationship Specialty Start Date End Date Barbara Valentin DO [place] [address] PCP - General Family Medicine 09/22/23 documented as of this encounter
[2024-03-30 04:54] LABS: Chloride* 96 mmol/L (96-114); Sodium* 129 mmol/L (135-149)
[2024-03-30 04:57] LABS: Anion Gap 19 mEq/L (7-15); Carbon Dioxide* 14 mmol/L (20-32); Creatinine* 2.9 mg/dL (0.5-1.5); Est. Creatinine Clearance* 14.45; Estimated Glomerular Filt Rate 18 ml/min
[2024-03-30 04:58] LABS: Blood Urea Nitrogen* 52 mg/dL (7-30); Calcium* 8.5 mg/dL (8.4-10.6)
[2024-03-30 05:06] LABS: Glucose* 730 mg/dL (60-115); Potassium* 6.5 mmol/L (3.6-5.1)
[2024-03-30] MEDS: 0.9 % SODIUM CHLORIDE 500 ML 500 ML IV (05:12)
[2024-03-30 05:14] LABS: HCO3 VBG 17 mmol/L (21-28); PCO2 VBG 37 mmHG (40-50); PO2 VBG 37.9 mmHG (25-47); pH VBG 7.269 (7.32-7.43)
--- NOTE | 2024-03-30 05:15 | ED_ITS ---
HPI - General Adult General Chief complaint: Diabetic Related Problem Stated complaint: High blood sugar Time Seen by Provider: 03/30/24 04:41 History of Present Illness HPI narrative: Patient is a 63-year-old woman with very complex past medical history including congestive heart failure and chronic kidney disease. She was hospitalized last week for CHF and her long-acting insulin was discontinued due to hypoglycemia. She was to continue her mealtime insulin which appears to be heme log. Patient was seen yesterday for significant hyperglycemia was treated with IV insulin and hydration. She did not have an anion gap at that time. She is in tonight as her continuous glucometer is reading high. Patient states that she has not been sick and she has not missed any doses of her medication. She describes no fevers no chills no night sweats. Patient is able to answer basic questions and her friend is here to help. She states that her blood sugars have been high since she went home. She has had no signs of congestive heart failure and otherwise been feeling reasonably well. Related Data Home Medications ?Medication ?Instructions ?Recorded ?Confirmed amlodipine 2.5 mg tablet 2.5 mg PO BID 10/11/22 03/30/24 atorvastatin 20 mg tablet 20 mg PO HS 10/11/22 03/31/24 buprenorphine 5 mcg/hour weekly 1 patch transdermal Q7D 10/11/22 03/30/24 transdermal patch cetirizine 5 mg tablet 5 mg PO DAILY 10/11/22 03/30/24 cholecalciferol (vitamin D3) 50 50 mcg PO DAILY 10/11/22 03/30/24 mcg (2,000 unit) capsule duloxetine 60 mg capsule,delayed 60 mg PO DAILY 10/11/22 03/30/24 release metoprolol succinate 25 mg 25 mg PO DAILY 10/11/22 03/30/24 tablet,extended release 24 hr omeprazole 20 mg capsule,delayed 20 mg PO DAILY 10/11/22 03/30/24 release oxycodone 5 mg tablet 5 mg PO BID PRN 10/11/22 03/30/24 polyethylene glycol 3350 17 17 g PO DAILY PRN 10/11/22 03/30/24 gram/dose oral powder (Miralax) pregabalin 100 mg capsule 100 - 200 mg PO BID 10/11/22 03/30/24 pregabalin 50 mg capsule 50 mg PO HS 10/11/22 03/30/24 sennosides 8.6 mg-docusate sodium 2 tab PO BID PRN 10/11/22 03/30/24 50 mg tablet (Stool Softener-Stimulant Laxative) torsemide 20 mg tablet 40 mg PO DAILY 10/11/22 03/30/24 vitamin B12 2,500 mcg-folic acid 1 tab PO DAILY 10/11/22 03/30/24 400 mcg disintegrating tablet acetaminophen 650 mg 1,300 mg PO Q8H 12/19/22 03/30/24 tablet,extended release levothyroxine 125 mcg tablet 125 mcg PO DAILY 05/25/23 03/30/24 fluoxetine 10 mg capsule 10 mg PO DAILY 03/16/24 03/30/24 cyanocobalamin (vitamin B-12) 1,000 mcg PO DAILY 03/17/24 03/30/24 1,000 mcg tablet glucagon 3 mg/actuation nasal 3 mg intranasal DIRECTED PRN 03/17/24 03/30/24 spray (Baqsimi) naloxone 4 mg/actuation nasal 4 mg intranasal DIRECTED PRN 03/17/24 03/30/24 spray (Narcan) Previous Rx's ?Medication ?Instructions ?Recorded insulin lispro 100 unit/mL 8 unit (0.08 mL) subcut TIDWM 30 03/22/24 subcutaneous pen (Humalog KwikPen days (U-100) Insulin) Allergies Allergy/AdvReac Type Severity Reaction Status Date / Time ampicillin Allergy Mild Hives Verified 03/29/24 16:02 aspirin Allergy Unknown Verified 03/29/24 16:02 NSAIDS (Non-Steroidal Allergy Unknown Verified 03/29/24 16:02 Anti-Inflamma Review of Systems Status of ROS: Reports: 10 or more systems reviewed and unremarkable except as noted in History and below [facility] Medical History (Updated 04/01/24 @ 12:03 by Amina Velarde MD) Nocturnal hypoglycemia ?E16.1 - Other hypoglycemia (ICD-10) Stage 4 chronic kidney disease ?N18.4 - Chronic kidney disease, stage 4 (severe) (ICD-10) Congestive heart failure (CHF) ?I50.9 - Heart failure, unspecified (ICD-10) Hypertension ?I10 - Essential (primary) hypertension (ICD-10) Diabetes type I ?E10.9 - Type 1 diabetes mellitus without complications (ICD-10) Hyperosmolar syndrome ?E87.0 - Hyperosmolality and hypernatremia (ICD-10) Sleep apnea ?G47.30 - Sleep apnea, unspecified (ICD-10) Ulnar neuropathy ?G56.20 - Lesion of ulnar nerve, unspecified upper limb (ICD-10) Hyperlipidemia ?E78.5 - Hyperlipidemia, unspecified (ICD-10) Morbid obesity ?E66.01 - Morbid (severe) obesity due to excess calories (ICD-10) GERD (gastroesophageal reflux disease) ?K21.9 - Gastro-esophageal reflux disease without esophagitis (ICD-10) 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 diabetic neuropathic arthropathy (ICD-10) Depressive disorder ?F32.A - Depression, unspecified (ICD-10) COPD (chronic obstructive pulmonary disease) ?J44.9 - Chronic obstructive pulmonary disease, unspecified (ICD-10) Chronic pain syndrome ?G89.4 - Chronic pain syndrome (ICD-10) Chronic kidney disease, stage 1 ?N18.1 - Chronic kidney disease, stage 1 (ICD-10) Carpal tunnel syndrome ?G56.00 - Carpal tunnel syndrome, unspecified upper limb (ICD-10) Diabetic retinopathy ?E11.319 - Type 2 diabetes mellitus with unspecified diabetic retinopathy without macular edema (ICD-10) Anemia of other chronic disease ?D63.8 - Anemia in other chronic diseases classified elsewhere (ICD-10) Acute respiratory failure ?J96.00 - Acute respiratory failure, unspecified whether with hypoxia or hypercapnia (ICD-10) Surgical History History of thyroidectomy ?E89.0 - Postprocedural hypothyroidism (ICD-10) History of hip replacement ?Z96.649 - Presence of unspecified artificial hip joint (ICD-10) History of gastric bypass ?Z98.84 - Bariatric surgery status (ICD-10) History of section ?Z98.891 - History of uterine scar from previous surgery (ICD-10) Hx of cataract removal with insertion of prosthetic lens ?Z98.49 - Cataract extraction status, unspecified eye (ICD-10) ?Z96.1 - Presence of intraocular lens (ICD-10) History of carpal tunnel release ?Z98.890 - Other specified postprocedural states (ICD-10) History of knee replacement procedure of right knee ?Z96.651 - Presence of right artificial knee joint (ICD-10) Family History Mother Diabetes Obesity Sleep apnea Brother Diabetes Obesity Sleep apnea Father Sleep apnea High blood pressure Social History Narrative: Full Code. Lives with son Mitul, who would be medical decision maker if needed. Also lives with sister. She does not smoke. She does not drink alcohol. What is your current living situation?: I presently have a place to live Problems where you live: no known problems Problems where you live details: no In the past 12 months, utilities in danger of being shut off: no In past 12 months, lack of transportation kept you from medical appts, meetings, work, or getting things needed for daily living: no In the past 12 mos, have been you worried that your food would run out before you had money to buy more?: never true In the past 12 mos, the food you bought just didn't last and you didn't have money to buy more?: never true Smoking Status: Never smoker Do you use any of these nicotine containing products: None Second hand tobacco smoke exposure: No How often do you have a drink containing alcohol: never How often do you have six or more drinks on one occasion: Never AUDIT-C Alcohol total score: 0 Non-prescribed substance use: denies use How often does anyone, including family, friends and others, physically hurt you : never How often does anyone, including family, friends and others, insult or talk down to you: never How often does anyone, including family, friends and others, threaten you with harm: never How often does anyone, including family, friends and others, scream or curse at you: never service: No Exam Narrative: Exam Narrative: EXAM GENERAL: Patient appears comfortable and well. Sleepy. EYES: No scleral icterus. LYMPH: No supraclavicular or cervical lymphadenopathy. SKIN: Visible skin seen during exam normal or with benign process only. EXT: No dependent lower extremity pedal edema. HEART: Regular rate and rhythm with no murmurs, rubs, or gallops. LUNGS: Clear to auscultation bilaterally with no crackles or wheezes. ABD: Soft, non tender, non distended. PSYCH: Good eye contact, speech is not pressured. Const: Vital Signs, click to edit/add: Vital Signs - 24 hr 03/30/24 04:32 03/30/24 04:44 03/30/24 05:39 Temperature 98.2 F Pulse Rate 89 Pulse Rate [Pulse Oximeter] 85 Respiratory Rate 20 20 Blood Pressure 102/42 L Blood Pressure [Ri ght Upper Arm] 113/55 L Pulse Oximetry 93 93 95 Oxygen Delivery Me thod Room Air 03/30/24 06:01 03/30/24 06:32 Temperature Pulse Rate 93 92 Pulse Rate [Pulse Oximeter] Respiratory Rate 18 18 Blood Pressure 125/56 L 120/78 Blood Pressure [Ri ght Upper Arm] Pulse Oximetry 97 95 Oxygen Delivery Me thod Course Course ED Course: I did order a basic metabolic panel and I do note significant hyperglycemia and hyperkalemia with anion gap. This time were expanding our evaluation with CBC venous blood gas. 10 mg of insulin given intravenously will 1 L of normal saline bolus start with. Patient will likely need insulin drip once we get our data back. Reevaluation(s) Time of Reevaluation #1: 07:06 Reevaluation #1: Patient is found have DKA overnight and was started on insulin drip. Her potassium was noted to be elevated her EKG did show some mild peaking of her T- waves. She is placed on telemetry and was aggressively hydrated with intravenous insulin via insulin drip. Currently blood sugar is down to 100 points. Morning labs are due shortly. Case discussed with hospitalist and patient will be accepted when bed available. Vital Signs Vital signs: Initial Vital Signs Temperature 98.2 F 03/30/24 04:32 Temperature Source Temporal Artery Scan 03/30/24 04:32 Pulse Rate 85 03/30/24 04:32 Respiratory Rate 20 03/30/24 04:32 Blood Pressure 113/55 L 03/30/24 04:32 Blood Pressure Mean 74 03/30/24 04:32 Blood Pressure Position Sitting 03/30/24 04:32 Pulse Oximetry 93 03/30/24 04:32 Oxygen Delivery Method Room Air 03/30/24 04:32 Vital Signs Temperature 98.2 F 03/30/24 04:32 Pulse Rate 85 03/30/24 04:32 Respiratory Rate 20 03/30/24 04:32 Blood Pressure 113/55 L 03/30/24 04:32 Pulse Oximetry 93 03/30/24 04:32 Oxygen Delivery Method Room Air 03/30/24 04:32 Temperature 97.7 F 04/02/24 03:00 Pulse Rate 80 04/02/24 03:00 Respiratory Rate 16 04/02/24 03:00 Blood Pressure 125/45 L 04/02/24 03:00 Pulse Oximetry 89 04/02/24 03:00 Oxygen Delivery Method Room Air 04/02/24 03:00 Oxygen Flow Rate 0.5 03/31/24 04:00 Medications Administered Medications: Generic Name Dose Route Start Last Admin Trade Name Freq PRN Reason Stop Dose Admin Acetaminophen 650 mg 03/31/24 19:26 04/01/24 08:41 Acetaminophen 325 Mg Tablet PO 650 mg Q6H PRN Administration As needed for fever, headache, or minor pain Amlodipine Besylate 2.5 mg 04/01/24 21:00 04/01/24 21:20 Amlodipine 5 Mg Tablet PO 2.5 mg BID BRET Administration Atorvastatin Calcium 20 mg 04/01/24 21:00 04/01/24 21:21 Atorvastatin 10 Mg Tablet PO 20 mg HS BRET Administration Duloxetine HCl 60 mg 03/31/24 09:00 04/01/24 09:43 Duloxetine [address] PO 60 mg DAILY BRET Administration Fluoxetine HCl 10 mg 03/31/24 09:00 04/01/24 09:43 Fluoxetine Hcl 10 Mg Capsule PO 10 mg DAILY BRET Administration Ceftriaxone Sodium 1 gm/ 100 mls @ 200 mls/hr 03/30/24 14:15 04/01/24 17:20 Sodium Chloride IVPB Infused Q24H BRET Infusion Insulin Aspart 0 unit 03/31/24 11:30 04/01/24 21:44 Insulin Aspart 100 Unit/Ml SUBCUT 4 unit ACHS BRET Administration Protocol Insulin Aspart 0 unit 04/01/24 02:30 04/02/24 02:50 Insulin Aspart 100 Unit/Ml SUBCUT 4 unit Q24H BRET Administration Protocol Insulin Glargine 5 unit 04/01/24 09:00 04/01/24 09:46 Insulin Glargine,Hum.Rec.Anlog 100 Unit/Ml Insuln.Pen SUBCUT 5 unit DAILY BRET Administration Levothyroxine Sodium 125 mcg 03/31/24 06:00 04/02/24 05:55 Levothyroxine 125 Mcg Tablet PO 125 mcg DAILY@0600 BRET Administration Metoprolol Succinate 25 mg 03/31/24 09:00 04/01/24 09:43 Metoprolol Succinate (Xl) 25 Mg Tab PO 25 mg DAILY BRET Administration Buprenorphine 5 Mcg/ 1 patch 04/01/24 09:00 04/01/24 08:53 Hour Patch Weekly TRANSDERMA Not Given Q7D BRET Omeprazole 20 mg 03/31/24 07:00 04/02/24 05:55 Omeprazole [address] PO 20 mg DAILY@0700 BRET Administration Oxycodone HCl 5 mg 04/01/24 12:00 04/01/24 19:53 Oxycodone 5 Mg Tablet PO 5 mg BID PRN Administration Pregabalin 150 mg 04/01/24 21:00 04/01/24 21:22 Pregabalin 50 Mg Capsule PO 150 mg HS BRET Administration Sodium Chloride 5 ml 03/30/24 08:10 04/01/24 08:43 Sodium Chloride 0.9 % (Flush) 10 Ml Syringe IVF 5 ml .FLUSH PRN Administration Sodium Chloride 5 ml 03/30/24 09:00 04/01/24 21:22 Sodium Chloride 0.9 % (Flush) 10 Ml Syringe IVF 5 ml BID BRET Administration Sodium Chloride 250 ml 04/01/24 14:15 04/01/24 16:42 0.9 % Sodium Chloride 250 Ml IV 250 ml Q24H BRET Administration Discontinued Medications Generic Name Dose Route Start Last Admin Trade Name Freq PRN Reason Stop Dose Admin Sodium Chloride 500 mls @ 500 mls/hr 03/30/24 05:07 03/30/24 06:13 0.9 % Sodium Chloride 500 Ml IV 03/30/24 06:06 Infused .Q1H ONE Infusion Insulin Human (Reg)/Sodium Chloride 100 unit in 100 mls @ 5 mls/hr 03/30/24 05:30 03/31/24 02:06 Insulin Inf 100 Unit/100 Ml IVPB Not Given .Q20H BRET Protocol 5 UNIT/HR Sodium Chloride 1,000 mls @ 1,000 mls/hr 03/30/24 07:05 03/30/24 09:07 0.9 % Sodium Chloride 1000 Ml IV 03/30/24 08:04 Not Given .Q1H BRET Potassium Chloride/Sodium Chloride 1,000 mls @ 125 mls/hr 03/30/24 09:00 03/31/24 09:46 0.9 % Sodium Ch + Kcl 20 Meq/L IV Not Given .Q8H BRET Lactated Ringer's 500 mls @ 500 mls/hr 03/30/24 10:23 03/30/24 11:30 Lactated Ringers 500 Ml IV 03/30/24 11:22 Infused .Q1H ONE Infusion Lactated Ringer's 500 mls @ 500 mls/hr 03/30/24 14:11 03/30/24 15:28 Lactated Ringers 500 Ml IV 03/30/24 15:10 Infused .Q1H ONE Infusion Potassium Chloride/Dextrose/Sod Cl 1,000 mls @ 125 mls/hr 03/30/24 14:30 03/30/24 20:23 5 % Dex/0.9 Sod Chl+Kcl 20 Meq IV 0 mls/hr .Q8H BRET Infusion Potassium Chloride/Dextrose/Sod Cl 1,000 mls @ 125 mls/hr 03/31/24 00:30 03/31/24 10:11 5 % Dex/0.9 Sod Chl+Kcl 20 Meq IV 0 mls/hr .Q8H BRET Infusion Insulin Aspart 0 unit 03/30/24 19:45 03/31/24 08:23 Insulin Aspart 100 Unit/Ml SUBCUT 2 unit 5XD [facility] Administration Protocol Insulin Glargine 8 unit 03/30/24 19:42 03/30/24 20:16 Insulin Glargine,Hum.Rec.Anlog 100 Unit/Ml Insuln.Pen SUBCUT 03/30/24 19:43 8 unit ONCE ONE Administration Insulin Human Regular 10 unit 03/30/24 05:07 03/30/24 05:16 Insulin Regular, Human 100 Unit/Ml Vial IVP 03/30/24 05:08 10 unit ONCE ONE Administration Medical Decision Making Lab Data Labs: Lab Results 03/30/24 03/30/24 03/30/24 Range/Units 04:13 04:41 05:10 WBC (4.50-11.00) K/uL RBC (4.00-5.20) m/uL Hgb (12.0-16.0) gm/dL Hct (33.0-51.0) % MCV (80-100) fL MCH (26-34) pg MCHC (32-36) gm/dL RDW Coeff of Stefan (11.5-15.5) % Plt Count (140-440) K/uL Neut % (Auto) (42.0-72.0) % Lymph % (Auto) (20-44) % [place] % (Auto) (0.0-11.0) % Eos % (Auto) (0.0-7.0) % Baso % (Auto) (0.0-3.0) % Neut # (Auto) (1.7-7.0) K/uL Lymph # (Auto) (0.90-2.90) K/uL [place] # (Auto) (0.00-0.90) K/UL Eos # (Auto) (0.00-0.50) K/uL Baso # (Auto) (0.00-0.30) K/uL Abs Immat Gran (auto) (0.00-0.30) K/uL Imm/Tot Granulo (auto) % VBG pH 7.269 L (7.32-7.43) VBG pCO2 37 L (40-50) mmHG VBG pO2 37.9 (25-47) mmHG VBG HCO3 17 L (21-28) mmol/L Sodium 129 L (135-149) mmol/L Potassium 6.5 H* (3.6-5.1) mmol/L Chloride 96 (96-114) mmol/L Carbon Dioxide 14 L (20-32) mmol/L Anion Gap 19 H (7-15) mEq/L BUN 52 H (7-30) mg/dL Creatinine 2.9 H (0.5-1.5) mg/dL Estimated Creat Clear 14.45 Estimated GFR 18 ml/min Glucose 730 H* (60-115) mg/dL Lactate 1.8 (0.5-1.9) mmol/L Calcium 8.5 (8.4-10.6) mg/dL Phosphorus (2.5-4.5) mg/dL Total Bilirubin (0.1-1.5) mg/dL AST (12-35) U/L ALT (4-35) U/L Alkaline Phosphatase (40-150) U/L Total Protein (6.0-8.3) g/dL Albumin (3.3-5.0) g/dL 03/30/24 03/30/24 Range/Units 05:13 07:48 WBC 10.73 (4.50-11.00) K/uL RBC 3.38 L (4.00-5.20) m/uL Hgb 9.8 L (12.0-16.0) gm/dL Hct 31.9 L (33.0-51.0) % MCV 94 (80-100) fL MCH 29 (26-34) pg MCHC 31 L (32-36) gm/dL RDW Coeff of Stefan 14.7 (11.5-15.5) % Plt Count 358 (140-440) K/uL Neut % (Auto) 85.0 H (42.0-72.0) % Lymph % (Auto) 7.8 L (20-44) % [place] % (Auto) 5.5 (0.0-11.0) % Eos % (Auto) 1.3 (0.0-7.0) % Baso % (Auto) 0.3 (0.0-3.0) % Neut # (Auto) 9.10 H (1.7-7.0) K/uL Lymph # (Auto) 0.80 L (0.90-2.90) K/uL [place] # (Auto) 0.60 (0.00-0.90) K/UL Eos # (Auto) 0.14 (0.00-0.50) K/uL Baso # (Auto) 0.03 (0.00-0.30) K/uL Abs Immat Gran (auto) 0.01 (0.00-0.30) K/uL Imm/Tot Granulo (auto) 0.1 % VBG pH 7.328 (7.32-7.43) VBG pCO2 31 L (40-50) mmHG VBG pO2 68.6 H (25-47) mmHG VBG HCO3 16 L (21-28) mmol/L Sodium 132 L (135-149) mmol/L Potassium 5.1 (3.6-5.1) mmol/L Chloride 100 (96-114) mmol/L Carbon Dioxide 15 L (20-32) mmol/L Anion Gap 17 H (7-15) mEq/L BUN 51 H (7-30) mg/dL Creatinine 2.9 H (0.5-1.5) mg/dL Estimated Creat Clear 14.45 Estimated GFR 18 ml/min Glucose 515 H* (60-115) mg/dL Lactate (0.5-1.9) mmol/L Calcium 8.5 (8.4-10.6) mg/dL Phosphorus 3.2 (2.5-4.5) mg/dL Total Bilirubin 0.3 (0.1-1.5) mg/dL AST 19 (12-35) U/L ALT 20 (4-35) U/L Alkaline Phosphatase 109 (40-150) U/L Total Protein 6.3 (6.0-8.3) g/dL Albumin 3.4 (3.3-5.0) g/dL
[2024-03-30 05:16] LABS: Basophils Absolute Auto 0.03 K/uL (0.00-0.30); Basophils Percent Auto 0.3 % (0.0-3.0); Eosinophils Absolute Auto 0.14 K/uL (0.00-0.50); Eosinophils Percent Auto 1.3 % (0.0-7.0); Hematocrit 31.9 % (33.0-51.0); Hemoglobin* 9.8 gm/dL (12.0-16.0); Immature Granulocytes Abs Auto 0.01 K/uL (0.00-0.30); Immature Granulocytes Pct Auto 0.1 %; Lymphocytes Percent Auto 7.8 % (20-44); Mean Corpuscular HGB Conc 31 gm/dL (32-36); Mean Corpuscular Hemoglobin 29 pg (26-34); Mean Corpuscular Volume 94 fL (80-100); Monocytes Percent Auto 5.5 % (0.0-11.0); Platelet Count* 358 K/uL (140-440); RDW Coefficient of Variation % 14.7 % (11.5-15.5); Red Blood Count 3.38 m/uL (4.00-5.20); White Blood Count* 10.73 K/uL (4.50-11.00)
[2024-03-30] MEDS: INSULIN REGULAR, HUMAN 100 UNIT/ML VIAL 10 UNIT IVP (05:16)
[2024-03-30 05:17] LABS: Slide Review Reflex No
[2024-03-30 05:30] LABS: Lactate* 1.8 mmol/L (0.5-1.9)
[2024-03-30] MEDS: INSULIN INF 100 UNIT/100 ML 100 UNIT/100 ML BAG IVPB (05:37)
[2024-03-30 07:55] LABS: HCO3 VBG 16 mmol/L (21-28); PCO2 VBG 31 mmHG (40-50); PO2 VBG 68.6 mmHG (25-47); pH VBG 7.328 (7.32-7.43)
[2024-03-30 08:12] LABS: Albumin* 3.4 g/dL (3.3-5.0)
[2024-03-30 08:13] LABS: Chloride* 100 mmol/L (96-114); Potassium* 5.1 mmol/L (3.6-5.1); Sodium* 132 mmol/L (135-149)
[2024-03-30 08:15] LABS: Anion Gap 17 mEq/L (7-15); Aspartate Amino Transferase* 19 U/L (12-35); Bilirubin Total* 0.3 mg/dL (0.1-1.5); Blood Urea Nitrogen* 51 mg/dL (7-30); Carbon Dioxide* 15 mmol/L (20-32); Creatinine* 2.9 mg/dL (0.5-1.5); Est. Creatinine Clearance* 14.45; Estimated Glomerular Filt Rate 18 ml/min; Total Protein* 6.3 g/dL (6.0-8.3)
[2024-03-30 08:16] LABS: Alanine Aminotransferase* 20 U/L (4-35); Alkaline Phosphatase* 109 U/L (40-150); Calcium* 8.5 mg/dL (8.4-10.6); Phosphorus* 3.2 mg/dL (2.5-4.5)
[2024-03-30 08:23] LABS: Glucose* 515 mg/dL (60-115)
--- NOTE | 2024-03-30 08:58 | P.IMHP_ITS ---
Hospitalist- H&P: HPI History of Present Illness Date Seen: 03/30/24 Chief complaint: High blood sugar Narrative: Mikayla Kuhn is a 63 year old female who presented to the emergency room this morning by ambulance for elevated blood sugars and feeling ?tired?. She has a complicated medical history which includes type 1 DM (multiple DKA hospitalizations), HFpEF, CKD. Hospitalized here last week and at that time had fairly significant hypoglycemia; long acting insulin held upon discharge until PCP f/u (this hasn't happened yet). Since being home, sugars have been quite high. She does not endorse any recent illness or other concerns. Medication compliance is unclear. ER course and findings: - BG 730, K 6.5, AG 19, pH 7.26, Hco3 17. lactate wnl at 1.8 - WBC 10, UA turbid but negative nitrite, culture ordered - given IV insulin x1, 500mL NS bolus, then started insulin gtt Upon arrival to the floor, patient is sleepy but arousable. She denies concerns for hospitalist team. She is not requiring supplemental oxygen. Histories updated below, PCP is Dr. Barbara Valentin at the [facility] locally. Review of Systems Status of ROS: Reports: 10 or more systems reviewed and unremarkable except as noted in History and below Narrative: - specifically denies CP or fever - specifically denies pain [facility] Medical History (Updated 03/30/24 @ 11:06 by Saritha Gamez MD) Nocturnal hypoglycemia ?E16.1 - Other hypoglycemia (ICD-10) Stage 4 chronic kidney disease ?N18.4 - Chronic kidney disease, stage 4 (severe) (ICD-10) Congestive heart failure (CHF) ?I50.9 - Heart failure, unspecified (ICD-10) Hypertension ?I10 - Essential (primary) hypertension (ICD-10) Diabetes type I ?E10.9 - Type 1 diabetes mellitus without complications (ICD-10) Hyperosmolar syndrome ?E87.0 - Hyperosmolality and hypernatremia (ICD-10) Sleep apnea ?G47.30 - Sleep apnea, unspecified (ICD-10) Ulnar neuropathy ?G56.20 - Lesion of ulnar nerve, unspecified upper limb (ICD-10) Hyperlipidemia ?E78.5 - Hyperlipidemia, unspecified (ICD-10) Morbid obesity ?E66.01 - Morbid (severe) obesity due to excess calories (ICD-10) GERD (gastroesophageal reflux disease) ?K21.9 - Gastro-esophageal reflux disease without esophagitis (ICD-10) 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 diabetic neuropathic arthropathy (ICD-10) Depressive disorder ?F32.A - Depression, unspecified (ICD-10) COPD (chronic obstructive pulmonary disease) ?J44.9 - Chronic obstructive pulmonary disease, unspecified (ICD-10) Chronic pain syndrome ?G89.4 - Chronic pain syndrome (ICD-10) Chronic kidney disease, stage 1 ?N18.1 - Chronic kidney disease, stage 1 (ICD-10) Carpal tunnel syndrome ?G56.00 - Carpal tunnel syndrome, unspecified upper limb (ICD-10) Diabetic retinopathy ?E11.319 - Type 2 diabetes mellitus with unspecified diabetic retinopathy without macular edema (ICD-10) Anemia of other chronic disease ?D63.8 - Anemia in other chronic diseases classified elsewhere (ICD-10) Acute respiratory failure ?J96.00 - Acute respiratory failure, unspecified whether with hypoxia or hypercapnia (ICD-10) Surgical History History of thyroidectomy ?E89.0 - Postprocedural hypothyroidism (ICD-10) History of hip replacement ?Z96.649 - Presence of unspecified artificial hip joint (ICD-10) History of gastric bypass ?Z98.84 - Bariatric surgery status (ICD-10) History of section ?Z98.891 - History of uterine scar from previous surgery (ICD-10) Hx of cataract removal with insertion of prosthetic lens ?Z98.49 - Cataract extraction status, unspecified eye (ICD-10) ?Z96.1 - Presence of intraocular lens (ICD-10) History of carpal tunnel release ?Z98.890 - Other specified postprocedural states (ICD-10) History of knee replacement procedure of right knee ?Z96.651 - Presence of right artificial knee joint (ICD-10) Family History Mother Diabetes Obesity Sleep apnea Brother Diabetes Obesity Sleep apnea Father Sleep apnea High blood pressure Social History Narrative: Full Code. Lives with son Mitul, who would be medical decision maker if needed. Also lives with sister. She does not smoke. She does not drink alcohol. What is your current living situation?: I presently have a place to live Problems where you live: no known problems Problems where you live details: no In the past 12 months, utilities in danger of being shut off: no In past 12 months, lack of transportation kept you from medical appts, meetings, work, or getting things needed for daily living: no In the past 12 mos, have been you worried that your food would run out before you had money to buy more?: never true In the past 12 mos, the food you bought just didn't last and you didn't have money to buy more?: never true Smoking Status: Never smoker Do you use any of these nicotine containing products: None Second hand tobacco smoke exposure: No How often do you have a drink containing alcohol: never How often do you have six or more drinks on one occasion: Never AUDIT-C Alcohol total score: 0 Non-prescribed substance use: denies use How often does anyone, including family, friends and others, physically hurt you : never How often does anyone, including family, friends and others, insult or talk down to you: never How often does anyone, including family, friends and others, threaten you with harm: never How often does anyone, including family, friends and others, scream or curse at you: never service: No Meds Home Medications and Allergies Home Medications ?Medication ?Instructions ?Recorded ?Confirmed ?Type amlodipine 2.5 mg tablet 2.5 mg PO BID 10/11/22 03/30/24 History atorvastatin 20 mg tablet 20 mg PO QPM 10/11/22 03/30/24 History buprenorphine 5 mcg/hour weekly 1 patch transdermal Q7D 10/11/22 03/30/24 History transdermal patch cetirizine 5 mg tablet 5 mg PO DAILY 10/11/22 03/30/24 History cholecalciferol (vitamin D3) 50 50 mcg PO DAILY 10/11/22 03/30/24 History mcg (2,000 unit) capsule duloxetine 60 mg capsule,delayed 60 mg PO DAILY 10/11/22 03/30/24 History release metoprolol succinate 25 mg 25 mg PO DAILY 10/11/22 03/30/24 History tablet,extended release 24 hr omeprazole 20 mg capsule,delayed 20 mg PO DAILY 10/11/22 03/30/24 History release oxycodone 5 mg tablet 5 mg PO BID PRN 10/11/22 03/30/24 History polyethylene glycol 3350 17 17 g PO DAILY PRN 10/11/22 03/30/24 History gram/dose oral powder (Miralax) pregabalin 100 mg capsule 100 - 200 mg PO BID 10/11/22 03/30/24 History pregabalin 50 mg capsule 50 mg PO HS 10/11/22 03/30/24 History sennosides 8.6 mg-docusate sodium 2 tab PO BID PRN 10/11/22 03/30/24 History 50 mg tablet (Stool Softener-Stimulant Laxative) torsemide 20 mg tablet 40 mg PO DAILY 10/11/22 03/30/24 History vitamin B12 2,500 mcg-folic acid 1 tab PO DAILY 10/11/22 03/30/24 History 400 mcg disintegrating tablet acetaminophen 650 mg 1,300 mg PO Q8H 12/19/22 03/30/24 History tablet,extended release levothyroxine 125 mcg tablet 125 mcg PO DAILY 05/25/23 03/30/24 History fluoxetine 10 mg capsule 10 mg PO DAILY 03/16/24 03/30/24 History cyanocobalamin (vitamin B-12) 1,000 mcg PO DAILY 03/17/24 03/30/24 History 1,000 mcg tablet glucagon 3 mg/actuation nasal 3 mg intranasal DIRECTED PRN 03/17/24 03/30/24 History spray (Baqsimi) naloxone 4 mg/actuation nasal 4 mg intranasal DIRECTED PRN 03/17/24 03/30/24 History spray (Narcan) Allergies Allergy/AdvReac Type Severity Reaction Status Date / Time ampicillin Allergy Mild Hives Verified 03/29/24 16:02 aspirin Allergy Unknown Verified 03/29/24 16:02 NSAIDS (Non-Steroidal Allergy Unknown Verified 03/29/24 16:02 Anti-Inflamma Exam Narrative: Exam Narrative: GEN: Resting in bed, awakens to voice HEENT: EOMIs bilaterally, no scleral icterus CV: Regular rate and rhythm without concerning murmurs R: LCTA bilaterally without concerning wheezing, no tachypnea at rest Abdomen: Soft and nontender, denies discomfort with palpation Ext: wwp, no concerning edema Skin: No concerning skin lesions or rashes on exposed skin Neuro: No focal deficits on limited exam Const: Vital Signs, click to edit/add: Vital Signs - 24 hr 03/30/24 04:32 03/30/24 04:44 03/30/24 05:39 Temperature 98.2 F Pulse Rate 89 Pulse Rate [Pulse Oximeter] 85 Respiratory Rate 20 20 Blood Pressure 102/42 L Blood Pressure [Ri ght Upper Arm] 113/55 L Pulse Oximetry 93 93 95 Oxygen Delivery Me od Room Air 03/30/24 06:01 03/30/24 06:32 Temperature Pulse Rate 93 92 Pulse Rate [Pulse Oximeter] Respiratory Rate 18 18 Blood Pressure 125/56 L 120/78 Blood Pressure [Ri ght Upper Arm] Pulse Oximetry 97 95 [facility]: Result Labs Labs: Short CBC 03/30/24 Range/Units 05:13 WBC 10.73 (4.50-11.00) K/uL Hgb 9.8 L (12.0-16.0) gm/dL Hct 31.9 L (33.0-51.0) % Plt Count 358 (140-440) K/uL BMP 03/30/24 03/30/24 04:41 07:48 Sodium 129 L 132 L Potassium 6.5 H* 5.1 Chloride 96 100 Carbon Dioxide 14 L 15 L BUN 52 H 51 H Creatinine 2.9 H 2.9 H Glucose 730 H* 515 H* Calcium 8.5 8.5 Liver Function 03/30/24 Range/Units 07:48 Total Bilirubin 0.3 (0.1-1.5) mg/dL AST 19 (12-35) U/L ALT 20 (4-35) U/L Alkaline Phosphatase 109 (40-150) U/L Albumin 3.4 (3.3-5.0) g/dL Assessment and Plan Assessment and plan (1) DKA (diabetic ketoacidosis): Problem comment: - 03/30/24, CCU admission - Q4H labs (K, pH, AG), insulin gtt - transition off of drip to mealtime/Lantus when awake and eating Status: Acute (2) (HFpEF) heart failure with preserved ejection fraction: Problem comment: - appears intravascularly dry on admission, follow Is and Os closely - robledo placed given acute illness - on Torsemide and Metoprolol as an outpatient - last TTE 01/2024: Final Impressions: 1. Normal LV size, normal wall thickness, normal global systolic function with an estimated EF of 60 - 65%. 2. Right ventricular cavity size is normal, global systolic RV function is normal. 3. No significant valve disease detected. Comparison Compared to prior exam of 10/12/22, there has been no significant change. Status: Acute (3) Stage 4 chronic kidney disease: Problem comment: - baseline 2 as outpatient, admission Creatinine 2.9 Status: Acute (4) COPD (chronic obstructive pulmonary disease): Problem comment: - history of this, not on supplemental oxygen, monitor to ensure no hypercarbia, RT following Status: Acute (5) Hypertension: Problem comment: - Amlodipine, Metoprolol, Torsemide as outpatient, will continue these - admission BP 130s/80s Status: Acute (6) Diabetic retinopathy: Problem comment: - noted Status: Acute (7) Chronic pain syndrome: Problem comment: - with opioid therapy, Butrans patch Status: Acute Plan - CCU admit per above - monitor labs, Is/Os closely
[2024-03-30] MEDS: 0.9 % SODIUM CH + KCL 20 mEq/L 1,000 ML 125 ML IV ×2 (09:08→20:26)
[2024-03-30 10:06] LABS: Appearance Urine Turbid (Clear); Bilirubin Urine 2+ (Negative); Blood Urine 3+ (Negative); Color Urine Yellow (Yellow); Glucose Urine 2+ (Negative); Ketones Urine 1+ (Negative); Leukocyte Esterase Urine 3+ (Negative); Nitrite Urine Negative (Negative); Protein Urine 2+ (Negative); Urobilinogen Urine 0.2 (0.2-1.0)
[2024-03-30 10:18] LABS: Bacteria Urine Moderate; Squamous Epithelial Cell Urine Few (None-Few); WBC Urine >100 (0-5)
[2024-03-30] MEDS: LACTATED RINGERS 500 ML 500 ML IV ×2 (10:26→14:15)
[2024-03-30 12:21] LABS: HCO3 VBG 27 mmol/L (21-28); Lactate* 1.4 mmol/L (0.5-1.9); PCO2 VBG 43 mmHG (40-50); PO2 VBG 39.7 mmHG (25-47); pH VBG 7.396 (7.32-7.43)
[2024-03-30 12:38] LABS: Chloride* 103 mmol/L (96-114)
[2024-03-30 12:39] LABS: Potassium* 4.8 mmol/L (3.6-5.1); Sodium* 134 mmol/L (135-149)
[2024-03-30 12:41] LABS: Creatinine* 2.7 mg/dL (0.5-1.5); Est. Creatinine Clearance* 19.44; Estimated Glomerular Filt Rate 19 ml/min
[2024-03-30 12:42] LABS: Anion Gap 5 mEq/L (7-15); Blood Urea Nitrogen* 51 mg/dL (7-30); Carbon Dioxide* 26 mmol/L (20-32); Glucose* 254 mg/dL (60-115)
[2024-03-30 12:43] LABS: Calcium* 8.4 mg/dL (8.4-10.6)
[2024-03-30 12:45] LABS: Hemoglobin A1C* 8.8 % (0-5.6)
--- NOTE | 2024-03-30 12:57 | NUTR.NU ---
RDN with diet education related to history of type 1 diabetes. Patient admitted for high blood glucose, found to be in Diabetic Ketoacidosis. Past medical history includes type 1 diabetes mellitus, COPD, and chronic kidney disease stage 4. Current weight 216 lb 12.8 oz; height 5ft 5in; BMI 36.1 kg/m2.? No diet order yet at this time. No meal intakes yet as patient is a new admit. Patient was recently hospitalized from 03/16/24 to 03/22/24 for Congestive Bautista Failure? (CHF). RDN visited with patient during that visit on 03/19/24 and offered diet education related to CHF and diabetes. She declined diet education related to diabetic and CHF diet, however accepted educational materials at that time. Patient a new admit and new to floor. Not appropriate for diet education at this time. RDN will attempt to visit at next work day.
[2024-03-30] MEDS: cefTRIAXone 1 GM in 0.9 % SODIUM CHLORIDE Mini-bag 100 ML IVPB (14:41)
--- NOTE | 2024-03-30 14:51 | PM.EN ---
Chart Event Note Date Seen: 03/30/24 Chart Event Note: Anion gap has now closed. Patient continues on insulin drip at 1 unit/hour IV. She has received to IV fluid boluses for lower blood pressures with good return to baseline. Lactate is normal. Starting ceftriaxone for positive UA, culture pending. Blood sugar trending down nicely (300s-->200s). Plan to start D5 normal saline with 20mEQ of K when blood sugar below 200. Continue to follow labs closely.
[2024-03-30] MEDS: 5 % DEX/0.9 SOD CHL+KCL 20 mEq 1,000 ML 125 ML IV (15:12)
[2024-03-30 16:23] LABS: HCO3 VBG 27 mmol/L (21-28); PCO2 VBG 43 mmHG (40-50); PO2 VBG 41.5 mmHG (25-47); pH VBG 7.401 (7.32-7.43)
[2024-03-30 16:42] LABS: Chloride* 104 mmol/L (96-114); Potassium* 4.8 mmol/L (3.6-5.1); Sodium* 136 mmol/L (135-149)
[2024-03-30 16:45] LABS: Anion Gap 6 mEq/L (7-15); Blood Urea Nitrogen* 48 mg/dL (7-30); Carbon Dioxide* 26 mmol/L (20-32); Creatinine* 2.5 mg/dL (0.5-1.5); Estimated Glomerular Filt Rate 21 ml/min; Glucose* 189 mg/dL (60-115); Phosphorus* 3.2 mg/dL (2.5-4.5)
[2024-03-30 16:46] LABS: Calcium* 8.4 mg/dL (8.4-10.6); Magnesium* 2.6 mg/dL (1.5-2.6)
--- NOTE | 2024-03-30 19:00 | PC.NURSE ---
End of shift [id number]: Pt arrived to the unit at 0810. On arrival, she was largely incontinent of urine with her personal clothing still in place. She was lethargic but arousable and unable to participate in bed mobility. Insulin gtt was infusing at 4 units/hr on arrival. STAT BG checked & adjustments made to gtt. See POC flowsheet & eMAR for blood glucose assessments and gtt infusion adjustments. Dr. Gamez provided verbal orders throughout the day for the insulin gtt to address pt?s personalized care needs. Pt had Ns w/ 20mEq KCl infusing at 125 mL/hr but was changed to 5% Dextrose in NS with 20 mEq KCl once POC blood glucose was below 200. Snow catheter was placed with turbid, cloudy, brown colored urine coming out. UA collected with UC in process; IV Ceftriaxone q24H initiated this afternoon. A couple BP readings were soft with MAP?s < 60 so pt received 500 mL boluses of LR x2 doses. PIV in bilateral AC?s are both C/D/I. Right AC flushes sluggishly and is very positional- utilizing for IV abx. Pt was drowsy and unable to stay awake for conversations for majority of the day. Around 1600 she became more alert & awake & was able to tolerate some PO intake. After she proved to tolerate a full meal for dinner, insulin gtt was paused @ 1810. Continue with hourly glucose assessments. Per MD, labs will be drawn next in the AM unless pt?s condition changes (if she needs to resume the insulin gtt or if she is N/V). Anion gap was closed around 1200. Dexacom located on right posterior arm & Butrans patch on posterior neck. TELE reads NSR all day and other than soft BP?s earlier, VSS and afebrile. ?
[2024-03-30] MEDS: INSULIN ASPART 100 UNIT/ML SUBCUT ×3 (20:15→22:06)
[2024-03-30] MEDS: INSULIN GLARGINE,HUM.REC.ANLOG 100 UNIT/ML INSULN.PEN 8 UNIT SUBCUT (20:16)
[2024-03-30] MEDS: SODIUM CHLORIDE 0.9 % (FLUSH) 10 ML SYRINGE 5 ML IVF (20:19)
[2024-03-31] VITALS (15 sets, daily range): BP systolic 101–176; BP diastolic 48–85; PULSE 71–83; RESP 16–20; TEMP 35.9–36.7; O2SAT 81–95
[2024-03-31] MEDS: 5 % DEX/0.9 SOD CHL+KCL 20 mEq 1,000 ML 125 ML IV ×2 (00:40→08:49)
[2024-03-31] MEDS: INSULIN ASPART 100 UNIT/ML SUBCUT ×6 (04:07→21:06)
[2024-03-31] MEDS: OMEPRAZOLE 20 MG CAPSULE DR PO (06:20)
[2024-03-31] MEDS: LEVOTHYROXINE 125 MCG TABLET PO (06:20)
--- NOTE | 2024-03-31 06:44 | PC.NURSE ---
End of shift [phone]: Pleasant and cooperative with cares, patient alert and talkative throughout the shift. Insulin drip continued to be paused at start of shift, [address] Car notified of current blood glucose and updated that insulin drip has been on pause since 1809, current IV solution of 5% dextrose/0.9%NS/K20mEq and patient has no orders for insulin. New orders received to start sliding scale insulin with each blood glucose check and for long acting insulin. At 2000 blood glucose 332, new order to stop current IV solution and start 0.9% NS with K 20mEq. Per verbal order from Dr. Car, if patient blood glucose is below 150 to stop current IV fluids and restart 5% dextrose/0.9NS/K 20mEq. At 0000 blood glucose was 141, current IV solution stopped and 5%Dex/NS/K20mEq restarted at 0040. Denies any symptoms of hyperglycemia, denies any nausea/vomiting, pain, shortness of breath or chest pain. Tolerated regular diet at supper. At 2000 patient O2 sats sustained at 82% on room air, attempted repositioning and deep breathing, tech writer started patient on 1L O2 per NC, O2 sats increased to 91%. Business Office Coordinator titrated oxygen down and able to remove oxygen at 2200. At 0110 patient O2 sats decreased to 81% and sustained there, patient repositioned and deep breathing done without any change in O2 sats, tech writer started oxygen at 0.5L per NC and increased to 89-92%, tech writer able to discontinue oxygen at 0400 and no further desats. Snow catheter patent, draining cloudy roman colored urine that changed to straw color throughout the shift.
[2024-03-31 07:21] LABS: HCO3 VBG 24 mmol/L (21-28); PCO2 VBG 41 mmHG (40-50); PO2 VBG 74.1 mmHG (25-47); pH VBG 7.369 (7.32-7.43)
[2024-03-31 07:33] LABS: Basophils Absolute Auto 0.02 K/uL (0.00-0.30); Basophils Percent Auto 0.3 % (0.0-3.0); Eosinophils Absolute Auto 0.47 K/uL (0.00-0.50); Eosinophils Percent Auto 6.6 % (0.0-7.0); Hematocrit 29.4 % (33.0-51.0); Hemoglobin* 9.3 gm/dL (12.0-16.0); Immature Granulocytes Abs Auto 0.01 K/uL (0.00-0.30); Immature Granulocytes Pct Auto 0.1 %; Lymphocytes Percent Auto 15.9 % (20-44); Mean Corpuscular HGB Conc 32 gm/dL (32-36); Mean Corpuscular Hemoglobin 29 pg (26-34); Mean Corpuscular Volume 93 fL (80-100); Neutrophils Absolute Auto 5.03 K/uL (1.7-7.0); Neutrophils Percent Auto 70.1 % (42.0-72.0); Platelet Count* 250 K/uL (140-440); RDW Coefficient of Variation % 14.9 % (11.5-15.5); Red Blood Count 3.18 m/uL (4.00-5.20); White Blood Count* 7.17 K/uL (4.50-11.00)
[2024-03-31 07:37] LABS: Slide Review Reflex No
[2024-03-31 07:44] LABS: Albumin* 3.2 g/dL (3.3-5.0)
[2024-03-31 07:45] LABS: Chloride* 109 mmol/L (96-114); Potassium* 4.6 mmol/L (3.6-5.1); Sodium* 138 mmol/L (135-149)
[2024-03-31 07:47] LABS: Anion Gap 6 mEq/L (7-15); Aspartate Amino Transferase* 20 U/L (12-35); Bilirubin Total* 0.1 mg/dL (0.1-1.5); Carbon Dioxide* 23 mmol/L (20-32); Creatinine* 2.1 mg/dL (0.5-1.5); Est. Creatinine Clearance* 24.99; Estimated Glomerular Filt Rate 26 ml/min
[2024-03-31 07:48] LABS: Alanine Aminotransferase* 16 U/L (4-35); Alkaline Phosphatase* 109 U/L (40-150); Blood Urea Nitrogen* 41 mg/dL (7-30); Calcium* 8.5 mg/dL (8.4-10.6); Glucose* 209 mg/dL (60-115); Total Protein* 6.4 g/dL (6.0-8.3)
[2024-03-31] MEDS: FLUOXETINE HCL 10 MG CAPSULE PO (08:50)
[2024-03-31] MEDS: SODIUM CHLORIDE 0.9 % (FLUSH) 10 ML SYRINGE 5 ML IVF ×2 (08:50→21:06)
[2024-03-31] MEDS: METOPROLOL SUCCINATE (XL) 25 MG TAB PO (08:50)
[2024-03-31] MEDS: DULOXETINE 30 MG CAPSULE DR 60 MG PO (08:50)
[2024-03-31 11:17] LABS: Lactate* 1.6 mmol/L (0.5-1.9)
--- NOTE | 2024-03-31 12:00 | PM.IMPN1 ---
Progress Note: A&P Assessment and plan (1) DKA (diabetic ketoacidosis): Problem details: - 03/30/24, CCU admission - Q4H labs (K, pH, AG), insulin gtt - transition off of drip to mealtime/Lantus when awake and eating - Hgb A1C 8.8% - 03/31: DKA resolved. Lactate mildly elevated on am lab, but resolved to 1.6 without intervention. Insulin gtt stopped last night. Given one dose of LA insulin and has been on D5 overnight. Resume home dosing of insulin (8u SA insulin with meals) plus a sliding scale. Teach patient sliding scale. Anticipate she will need SS insulin plus mealtime insulin at home as her diet at home appears to be very different than here. Status: Acute (2) (HFpEF) heart failure with preserved ejection fraction: Problem details: - appears intravascularly dry on admission, follow Is and Os closely - robledo placed given acute illness - on Torsemide and Metoprolol as an outpatient - last TTE 01/2024: Final Impressions: 1. Normal LV size, normal wall thickness, normal global systolic function with an estimated EF of 60 - 65%. 2. Right ventricular cavity size is normal, global systolic RV function is normal. 3. No significant valve disease detected. Comparison Compared to prior exam of 10/12/22, there has been no significant change. - 03/31 Stable chronic HFpEF. Stop IVF. Status: Chronic (3) Stage 4 chronic kidney disease: Problem details: - baseline 2 as outpatient, admission Creatinine 2.9, Cr @ 2.1 today, near baseline. Stop IVF. Status: Acute (4) COPD (chronic obstructive pulmonary disease): Problem details: - history of this, not on supplemental oxygen, monitor to ensure no hypercarbia, RT following Status: Chronic (5) Hypertension: Problem details: - Amlodipine, Metoprolol, Torsemide as outpatient, will continue these - admission BP 130s/80s Status: Chronic (6) Chronic pain syndrome: Problem details: - with opioid therapy, Butrans patch Status: Chronic (7) Anemia of other chronic disease: Problem details: Hgb stable at 9.3 Status: Chronic (8) UTI (urinary tract infection): Problem details: - Also noted is an abnomal UA on admission. UC pending. Continue ceftriaxone. Status: Acute Subjective Time Seen by Provider: 09:58 Date Seen: 03/31/24 Interval history: Kati is in a good mood today and says she is feeling better since her sugars have come down. Insulin drip was stopped last night and she was given a 1 time dose of long-acting insulin last night while she was getting D5 containing IV fluids overnight. 4 or 5 blood glucose checks have been in the 150s to 200. She tells me that she stop taking long-acting insulin several weeks ago, sometime even before she was admitted last time. Despite that she continued to have low blood sugars into the 30s at night. When she was sent home last week, she no longer had low blood sugars in the middle of the night, but noticed that her blood sugars were increasing more and more. She does not have a sliding scale insulin, although she does check her blood sugars with each meal, she only has a set amount of insulin to take with each meal. When we talked about a sliding scale, she thought that this was something she could add to her regimen at home. She notes that sometimes she gives herself insulin and some times her son who lives with her gives it to her. Exam Narrative: Exam Narrative: General: Sitting in the bedside chair. No acute distress. Awake, alert, oriented. No pallor. No jaundice. Oropharynx: Clear. Mucous membranes moist. Cardiovascular: Regular rate and rhythm. No murmurs, gallops, or rubs. Respiratory: Clear to auscultation bilaterally. No wheezes or crackles. Extremities: No pedal edema. Const: Vital Signs, click to edit/add: Vital Signs - 24 hr 03/30/24 12:17 03/30/24 14:25 03/30/24 15:00 Temperature 97.4 F L 98 F Pulse Rate 82 Pulse Rate [Pulse Oximeter] 79 78 Respiratory Rate 16 16 Blood Pressure [Ri ght Arm] 120/53 L 104/40 L Pulse Oximetry 88 92 Oxygen Delivery Me thod Room Air Room Air Oxygen Flow Rate 03/30/24 15:00 03/30/24 15:00 03/30/24 16:32 Temperature 97.8 F Pulse Rate Pulse Rate [Pulse Oximeter] 84 84 Respiratory Rate 16 16 Blood Pressure [Ri ght Arm] 115/89 Pulse Oximetry 90 90 Oxygen Delivery Me thod Room Air Oxygen Flow Rate 03/30/24 18:20 03/30/24 19:00 03/30/24 20:00 Temperature 98.4 F 97.9 F Pulse Rate 85 Pulse Rate [Pulse Oximeter] 92 86 Respiratory Rate 16 18 Blood Pressure [Ri ght Arm] 120/57 L 123/45 L Pulse Oximetry 96 91 Oxygen Delivery Me thod Room Air Room Air Oxygen Flow Rate 0.5 03/30/24 22:00 03/30/24 23:00 03/30/24 23:00 Temperature 97.8 F Pulse Rate 85 Pulse Rate [Pulse Oximeter] 85 Respiratory Rate 18 Blood Pressure [Ri ght Arm] 126/91 H Pulse Oximetry 91 90 Oxygen Delivery Me thod Room Air Oxygen Flow Rate 03/30/24 23:00 03/31/24 00:00 03/31/24 01:10 Temperature 97.0 F L Pulse Rate Pulse Rate [Pulse Oximeter] 85 79 Respiratory Rate 18 20 Blood Pressure [Ri ght Arm] 120/53 L Pulse Oximetry 89 81 L Oxygen Delivery Me thod Room Air Room Air Oxygen Flow Rate 03/31/24 02:00 03/31/24 03:00 03/31/24 04:00 Temperature 97.1 F L 96.9 F L Pulse Rate 73 Pulse Rate [Pulse Oximeter] 71 74 Respiratory Rate 20 20 Blood Pressure [Ri ght Arm] 101/48 L 120/48 L Pulse Oximetry 91 92 Oxygen Delivery Me thod Nasal Cannula Nasal Cannula Oxygen Flow Rate 1 0.5 03/31/24 06:00 03/31/24 07:21 03/31/24 07:23 Temperature 97.1 F L Pulse Rate 73 Pulse Rate [Pulse Oximeter] 80 Respiratory Rate 20 Blood Pressure [Ri ght Arm] 176/56 H Pulse Oximetry 92 92 Oxygen Delivery Me thod Room Air Oxygen Flow Rate 03/31/24 07:23 03/31/24 11:26 Temperature 96.7 F L 97.5 F L Pulse Rate Pulse Rate [Pulse Oximeter] 74 75 Respiratory Rate 16 18 Blood Pressure [Ri ght Arm] 123/49 L 133/67 Pulse Oximetry 92 91 Oxygen Delivery Me thod Room Air Room Air Oxygen Flow Rate Labs Labs: Laboratory Results - last 24 hr 03/30/24 03/30/24 03/31/24 12:16 16:22 07:14 WBC 7.17 RBC 3.18 L Hgb 9.3 L Hct 29.4 L MCV 93 MCH 29 MCHC 32 RDW Coeff of Stefan 14.9 Plt Count 250 Neut % (Auto) 70.1 Lymph % (Auto) 15.[address] [place] % (Auto) 7.0 Eos % (Auto) 6.6 Baso % (Auto) 0.3 Neut # (Auto) 5.03 Lymph # (Auto) 1.10 [place] # (Auto) 0.50 Eos # (Auto) 0.47 Baso # (Auto) 0.02 Abs Immat Gran (auto) 0.01 Imm/Tot Granulo (auto) 0.1 VBG pH 7.396 7.401 7.369 VBG pCO2 43 43 41 VBG pO2 39.7 41.5 74.1 H VBG HCO3 27 27 24 Sodium 134 L 136 138 Potassium 4.8 4.8 4.6 Chloride 103 104 109 Carbon Dioxide 26 26 23 Anion Gap 5 L 6 L 6 L BUN 51 H 48 H 41 H Creatinine 2.7 H 2.5 H 2.1 H Estimated Creat Clear 19.44 21.00 24.99 Estimated GFR 19 21 26 Glucose 254 H 189 H 209 H Hemoglobin A1c 8.8 H Lactate 1.4 2.0 H Calcium 8.4 8.4 8.5 Phosphorus 3.2 Magnesium 2.6 Total Bilirubin 0.1 AST 20 ALT 16 Alkaline Phosphatase 109 Total Protein 6.4 Albumin 3.2 L 03/31/24 11:12 WBC RBC Hgb Hct MCV MCH MCHC RDW Coeff of Stefan Plt Count Neut % (Auto) Lymph % (Auto) [place] % (Auto) Eos % (Auto) Baso % (Auto) Neut # (Auto) Lymph # (Auto) [place] # (Auto) Eos # (Auto) Baso # (Auto) Abs Immat Gran (auto) Imm/Tot Granulo (auto) VBG pH VBG pCO2 VBG pO2 VBG HCO3 Sodium Potassium Chloride Carbon Dioxide Anion Gap BUN Creatinine Estimated Creat Clear Estimated GFR Glucose Hemoglobin A1c Lactate 1.6 Calcium Phosphorus Magnesium Total Bilirubin AST ALT Alkaline Phosphatase Total Protein Albumin
[2024-03-31] MEDS: cefTRIAXone 1 GM in 0.9 % SODIUM CHLORIDE Mini-bag 100 ML IVPB (14:05)
[2024-03-31] MEDS: ACETAMINOPHEN 325 MG TABLET 650 MG PO (19:30)
[2024-04-01] VITALS (11 sets, daily range): BP systolic 132–194; BP diastolic 48–82; PULSE 75–100; RESP 16–20; TEMP 36.3–36.7; O2SAT 86–93
[2024-04-01] MEDS: INSULIN ASPART 100 UNIT/ML SUBCUT ×4 (02:36→21:44)
[2024-04-01] MEDS: OMEPRAZOLE 20 MG CAPSULE DR PO (05:46)
[2024-04-01] MEDS: LEVOTHYROXINE 125 MCG TABLET PO (05:46)
--- NOTE | 2024-04-01 06:39 | PC.NURSE ---
End of shift note [id number]: Pt alert & oriented x 4 and able to make needs known. IVs to bilateral AC patent and SL. Pt has been afebrile and on RA throughout the shift. Snow catheter in place with no BM this shift. Urine output noted to be cloudy though this is not a new finding per documentation. Blood sugars of 243 and 222 this shift with Novolog SS administered per order. Call light within reach. Pt requires assist of 2 with transferring using walker and gait belt. Dressing to L heel C/D/I. Pt compliant with wearing SCDs to BLEs. PRN Tylenol administered for c/o 01/10 chronic pain to RLE.
[2024-04-01 08:06] LABS: Basophils Absolute Auto 0.01 K/uL (0.00-0.30); Basophils Percent Auto 0.2 % (0.0-3.0); Eosinophils Absolute Auto 0.32 K/uL (0.00-0.50); Eosinophils Percent Auto 4.9 % (0.0-7.0); Hematocrit 29.1 % (33.0-51.0); Immature Granulocytes Abs Auto 0.01 K/uL (0.00-0.30); Immature Granulocytes Pct Auto 0.2 %; Mean Corpuscular HGB Conc 31 gm/dL (32-36); Mean Corpuscular Hemoglobin 29 pg (26-34); Mean Corpuscular Volume 94 fL (80-100); Monocytes Percent Auto 8.5 % (0.0-11.0); Neutrophils Percent Auto 75.2 % (42.0-72.0); Platelet Count* 230 K/uL (140-440); White Blood Count* 6.57 K/uL (4.50-11.00)
[2024-04-01 08:08] LABS: Slide Review Reflex No
[2024-04-01 08:22] LABS: Chloride* 108 mmol/L (96-114)
[2024-04-01 08:23] LABS: Potassium* 4.4 mmol/L (3.6-5.1); Sodium* 137 mmol/L (135-149)
[2024-04-01 08:26] LABS: Anion Gap 4 mEq/L (7-15); Blood Urea Nitrogen* 27 mg/dL (7-30); Calcium* 8.7 mg/dL (8.4-10.6); Carbon Dioxide* 25 mmol/L (20-32); Creatinine* 1.4 mg/dL (0.5-1.5); Est. Creatinine Clearance* 37.49; Estimated Glomerular Filt Rate 43 ml/min; Glucose* 227 mg/dL (60-115)
[2024-04-01] MEDS: ACETAMINOPHEN 325 MG TABLET 650 MG PO (08:41)
[2024-04-01] MEDS: SODIUM CHLORIDE 0.9 % (FLUSH) 10 ML SYRINGE 5 ML IVF ×3 (08:42→21:22)
[2024-04-01] MEDS: DULOXETINE 30 MG CAPSULE DR 60 MG PO (09:43)
[2024-04-01] MEDS: FLUOXETINE HCL 10 MG CAPSULE PO (09:43)
[2024-04-01] MEDS: METOPROLOL SUCCINATE (XL) 25 MG TAB PO (09:43)
[2024-04-01] MEDS: INSULIN GLARGINE,HUM.REC.ANLOG 100 UNIT/ML INSULN.PEN SUBCUT (09:46)
--- NOTE | 2024-04-01 11:48 | P.IMPN_ITS ---
Progress Note: A&P Assessment and plan (1) DKA (diabetic ketoacidosis): Problem details: - 03/30/24, CCU admission - Q4H labs (K, pH, AG), insulin gtt - transition off of drip to mealtime/Lantus when awake and eating - Hgb A1C 8.8% - 03/31: DKA resolved. Lactate mildly elevated on am lab, but resolved to 1.6 without intervention. Insulin gtt stopped last night. Given one dose of LA insulin and has been on D5 overnight. Resume home dosing of insulin (8u SA insulin with meals) plus a sliding scale. Teach patient sliding scale. Anticipate she will need SS insulin plus mealtime insulin at home as her diet at home appears to be very different than here. - 04/01: BG 200's consistently. Will start low dose LA insulin, given each am. If she has a low overnight, may need less evening meal-time SA insulin. Status: Acute (2) (HFpEF) heart failure with preserved ejection fraction: Problem details: - appears intravascularly dry on admission, follow Is and Os closely - robledo placed given acute illness - on Torsemide and Metoprolol as an outpatient - last TTE 01/2024: Final Impressions: 1. Normal LV size, normal wall thickness, normal global systolic function with an estimated EF of 60 - 65%. 2. Right ventricular cavity size is normal, global systolic RV function is normal. 3. No significant valve disease detected. Comparison Compared to prior exam of 10/12/22, there has been no significant change. - 03/31 Stable chronic HFpEF. Stop IVF. Status: Chronic (3) Stage 4 chronic kidney disease: Problem details: - baseline 2 as outpatient, admission Creatinine 2.9, Cr @ 2.1 03/31, near baseline. Stop IVF. - 04/01 Cr down to 1.4. May be hypervolemic, but lungs are clear and LE show no edema. Mild hypoxia noted. - Restart home torsemide Status: Acute (4) COPD (chronic obstructive pulmonary disease): Problem details: - history of this, not on supplemental oxygen, monitor to ensure no hypercarbia, RT following Status: Chronic (5) Hypertension: Problem details: - Amlodipine, Metoprolol, Torsemide: restart home meds - admission BP 130s/80s Status: Chronic (6) Chronic pain syndrome: Problem details: - with opioid therapy, Butrans patch Status: Chronic (7) Anemia of other chronic disease: Problem details: Hgb stable. Status: Chronic (8) UTI (urinary tract infection): Problem details: - Also noted is an abnomal UA on admission. UC pending. Continue ceftriaxone. Stop robledo. Status: Acute Subjective Time Seen by Provider: 08:48 Date Seen: 04/01/24 Interval history: Kati feels well. She has chronic pain in her feet that is unchanged. Discussed restarting a long acting insulin Exam Narrative: Exam Narrative: General: Laying comfortably in bed. No acute distress. Awake, alert, oriented. No pallor. No jaundice. Oropharynx: Clear. Mucous membranes moist. Cardiovascular: Regular rate and rhythm. No murmurs, gallops, or rubs. Respiratory: Clear to auscultation bilaterally. No wheezes or crackles. Extremities: No pedal edema. Const: Vital Signs, click to edit/add: Vital Signs - 24 hr 03/31/24 15:00 03/31/24 15:00 03/31/24 15:00 Temperature 97.8 F Pulse Rate Pulse Rate [Pulse Oximeter] 77 77 Respiratory Rate 16 16 Blood Pressure [Ri ght Arm] 134/50 L Pulse Oximetry 91 91 Oxygen Delivery Hi thod Room Air 03/31/24 15:00 03/31/24 19:34 03/31/24 22:54 Temperature 98.0 F Pulse Rate 75 76 Pulse Rate [Pulse Oximeter] 83 Respiratory Rate 16 Blood Pressure [Ri ght Arm] 142/85 H Pulse Oximetry 95 Oxygen Delivery Hi thod Room Air 03/31/24 23:00 03/31/24 23:36 03/31/24 23:38 Temperature 97.7 F Pulse Rate Pulse Rate [Pulse Oximeter] 76 76 Respiratory Rate 16 16 Blood Pressure [Ri ght Arm] 141/53 H Pulse Oximetry 90 90 Oxygen Delivery Hi thod Room Air 04/01/24 03:00 04/01/24 07:40 04/01/24 08:25 Temperature 97.3 F L Pulse Rate 79 Pulse Rate [Pulse Oximeter] 75 Respiratory Rate 16 Blood Pressure [Ri ght Arm] 132/48 L Pulse Oximetry 86 L 89 Oxygen Delivery Hi thod Room Air 04/01/24 08:25 04/01/24 08:25 Temperature 98.0 F Pulse Rate Pulse Rate [Pulse Oximeter] 85 85 Respiratory Rate 20 20 Blood Pressure [Ri ght Arm] 152/70 H Pulse Oximetry 89 Oxygen Delivery Me thod Room Air Labs Labs: Laboratory Results - last 24 hr 04/01/24 07:55 WBC 6.57 RBC 3.10 L Hgb 9.0 L Hct 29.1 L MCV 94 MCH 29 MCHC 31 L RDW Coeff of Stefan 15.0 Plt Count 230 Neut % (Auto) 75.2 H Lymph % (Auto) 11.0 L [place] % (Auto) 8.5 Eos % (Auto) 4.9 Baso % (Auto) 0.2 Neut # (Auto) 4.90 Lymph # (Auto) 0.70 L [place] # (Auto) 0.60 Eos # (Auto) 0.32 Baso # (Auto) 0.01 Abs Immat Gran (auto) 0.01 Imm/Tot Granulo (auto) 0.2 Sodium 137 Potassium 4.4 Chloride 108 Carbon Dioxide 25 Anion Gap 4 L BUN 27 Creatinine 1.4 Estimated Creat Clear 37.49 Estimated GFR 43 Glucose 227 H Calcium 8.7
[2024-04-01] MEDS: cefTRIAXone 1 GM in 0.9 % SODIUM CHLORIDE Mini-bag 100 ML IVPB (16:39)
[2024-04-01] MEDS: 0.9 % SODIUM CHLORIDE 250 ml IV (16:42)
--- NOTE | 2024-04-01 19:46 | PC.NURSE ---
Pt up with SBA, gait belt, and walker within room. Pt states has little appetite, encouraged protein rich options. Tylenol for LE chronic aches with relief.
[2024-04-01] MEDS: OXYCODONE 5 MG TABLET PO (19:53)
[2024-04-01] MEDS: AMLODIPINE 5 MG TABLET 2.5 MG PO (21:20)
[2024-04-01] MEDS: ATORVASTATIN 10 MG TABLET 20 MG PO (21:21)
[2024-04-01] MEDS: PREGABALIN 50 MG CAPSULE 150 MG PO (21:22)
[2024-04-02] MEDS: INSULIN ASPART 100 UNIT/ML SUBCUT ×3 (02:50→14:27)
[2024-04-02 03:00] VITALS: BP 125/45; PULSE 80; RESP 16; TEMP 36.5; O2SAT 89
[2024-04-02] MEDS: LEVOTHYROXINE 125 MCG TABLET PO (05:55)
[2024-04-02] MEDS: OMEPRAZOLE 20 MG CAPSULE DR PO (05:55)
[2024-04-02 06:19] LABS: Basophils Absolute Auto 0.03 K/uL (0.00-0.30); Basophils Percent Auto 0.5 % (0.0-3.0); Eosinophils Absolute Auto 0.41 K/uL (0.00-0.50); Eosinophils Percent Auto 6.2 % (0.0-7.0); Hematocrit 28.9 % (33.0-51.0); Hemoglobin* 8.9 gm/dL (12.0-16.0); Immature Granulocytes Abs Auto 0.08 K/uL (0.00-0.30); Immature Granulocytes Pct Auto 1.2 %; Lymphocytes Percent Auto 14.9 % (20-44); Mean Corpuscular HGB Conc 31 gm/dL (32-36); Mean Corpuscular Hemoglobin 29 pg (26-34); Mean Corpuscular Volume 93 fL (80-100); Monocytes Percent Auto 9.3 % (0.0-11.0); Neutrophils Absolute Auto 4.53 K/uL (1.7-7.0); Neutrophils Percent Auto 67.9 % (42.0-72.0); Platelet Count* 233 K/uL (140-440); RDW Coefficient of Variation % 15.2 % (11.5-15.5); White Blood Count* 6.66 K/uL (4.50-11.00)
[2024-04-02 06:22] LABS: Slide Review Reflex No
--- NOTE | 2024-04-02 06:33 | PC.NURSE ---
End of shift note [id number]: Pt alert & oriented x 4 upon assessment and able to make needs known. Pt has been afebrile and on RA throughout the shift. PRN Oxycodone administered for c/o 7/10 chronic pain to RLE last evening which was effective upon followup. Pt transferring/ambulating with SBA using FWW and gait belt. IV to L AC patent and SL. Pt noted to be both continent and incontinent of bladder.?B/P noted to be elevated at 194/82 at HS though this was noted after pt had ambulated to and from bathroom. Blood pressures improved the remainder of the shift after scheduled Amlodipine administered. Blood sugars of 226 and 222 this shift with scheduled Novolog administered per SS.
[2024-04-02 06:36] LABS: Chloride* 107 mmol/L (96-114); Potassium* 4.2 mmol/L (3.6-5.1); Sodium* 137 mmol/L (135-149)
[2024-04-02 06:39] LABS: Anion Gap 4 mEq/L (7-15); Blood Urea Nitrogen* 21 mg/dL (7-30); Carbon Dioxide* 26 mmol/L (20-32); Creatinine* 1.4 mg/dL (0.5-1.5); Est. Creatinine Clearance* 37.49; Estimated Glomerular Filt Rate 43 ml/min; Glucose* 173 mg/dL (60-115)
[2024-04-02 07:08] VITALS: PULSE 72
[2024-04-02 08:15] VITALS: BP 164/64; PULSE 73; RESP 18; TEMP 36.6; O2SAT 92
[2024-04-02] MEDS: INSULIN GLARGINE,HUM.REC.ANLOG 100 UNIT/ML INSULN.PEN SUBCUT (08:18)
[2024-04-02] MEDS: METOPROLOL SUCCINATE (XL) 25 MG TAB PO (08:21)
[2024-04-02] MEDS: CETIRIZINE HCL 10 MG TABLET 5 MG PO (08:21)
[2024-04-02] MEDS: AMLODIPINE 5 MG TABLET 2.5 MG PO (08:21)
[2024-04-02] MEDS: CYANOCOBALAMIN (VITAMIN B-12) 500 MCG TABLET 1000 MCG PO (08:22)
[2024-04-02] MEDS: TORSEMIDE 20 MG TABLET 40 MG PO (08:22)
[2024-04-02] MEDS: PREGABALIN 100 MG CAPSULE 200 MG PO (08:22)
[2024-04-02] MEDS: FLUOXETINE HCL 10 MG CAPSULE PO (08:23)
[2024-04-02] MEDS: DULOXETINE 30 MG CAPSULE DR 60 MG PO (08:23)
[2024-04-02] MEDS: SODIUM CHLORIDE 0.9 % (FLUSH) 10 ML SYRINGE 5 ML IVF (08:24)
--- NOTE | 2024-04-02 10:35 | P.DS_ITS ---
DS: Providers Provider Time Seen by Provider: 07:40 Date Seen: 04/02/24 Date of admission: 03/30/24 08:10 Primary care physician: Barbara Valentin DO Admitting Clinician: Saritha Gamez MD Consults: 04/01/24 07:05 Consult to Occupational Therapy [CONS] Routine Comment: Reason(s) for OT Consult:: Evaluate and Treat Any Restrictions?:: No Restrictions Consult to Physical Therapy [CONS] Routine Comment: Reason(s) for PT Consult:: Evaluate and Treat Any Restrictions?:: No Restrictions Attending Physician on discharge: Amina Velarde MD Date of Discharge: 04/02/24 DS: Diagnosis Discharge Diagnosis (1) DKA (diabetic ketoacidosis): Status: Acute Problem details: - 03/30/24, CCU admission - Q4H labs (K, pH, AG), insulin gtt - transition off of drip to mealtime/Lantus when awake and eating - Hgb A1C 8.8% - 03/31: DKA resolved. Lactate mildly elevated on am lab, but resolved to 1.6 without intervention. Insulin gtt stopped last night. Given one dose of LA insulin and has been on D5 overnight. Resume home dosing of insulin (8u SA insulin with meals) plus a sliding scale. Teach patient sliding scale. Anticipate she will need SS insulin plus mealtime insulin at home as her diet at home appears to be very different than here. - 04/01: BG 200's consistently. Will start low dose LA insulin, given each am. If she has a low overnight, may need less evening meal-time SA insulin. - 04/02: Blood glucoses again remained consistent in the 200 range. She has not had any hypoglycemic events. Continue long-acting insulin for home going along with mealtime insulin and sliding scale. (2) (HFpEF) heart failure with preserved ejection fraction: Status: Chronic Problem details: - appears intravascularly dry on admission, follow Is and Os closely - robledo placed given acute illness - on Torsemide and Metoprolol as an outpatient - last TTE 01/2024: Final Impressions: 1. Normal LV size, normal wall thickness, normal global systolic function with an estimated EF of 60 - 65%. 2. Right ventricular cavity size is normal, global systolic RV function is normal. 3. No significant valve disease detected. Comparison Compared to prior exam of 10/12/22, there has been no significant change. - 03/31 Stable chronic HFpEF. Stop IVF. (3) UTI (urinary tract infection): Status: Ruled-out Problem details: - Also noted is an abnormal UA on admission. UC showed mixed Gram-positive oni, no further workup. Stop antibiotic. She has gotten 3 days of ceftriax one. (4) COPD (chronic obstructive pulmonary disease): Status: Chronic Problem details: - history of this, not on supplemental oxygen, monitor to ensure no hypercarbia, RT following (5) Stage 4 chronic kidney disease: Status: Acute Problem details: - baseline 2 as outpatient, admission Creatinine 2.9, Cr @ 2.1 03/31, near baseline. Stop IVF. - 04/01 Cr down to 1.4. May be hypervolemic, but lungs are clear and LE show no edema. Mild hypoxia noted. - Restarted home torsemide, creatinine remains stable at 1.4 (6) Hypertension: Status: Chronic Problem details: - Amlodipine, Metoprolol, Torsemide: restart home meds - admission BP 130s/80s (7) Chronic pain syndrome: Status: Chronic Problem details: - with opioid therapy, Butrans patch (8) Anemia of other chronic disease: Status: Chronic Problem details: Hgb stable. DS: Summary Hospital Course Hospital Course: Per H&P: Mikayla Kuhn is a 63 year old female who presented to the emergency room this morning by ambulance for elevated blood sugars and feeling ?tired?. She has a complicated medical history which includes type 1 DM (multiple DKA hospitalizations), HFpEF, CKD. Hospitalized here last week and at that time had fairly significant hypoglycemia; long acting insulin held upon discharge until PCP f/u (this hasn't happened yet). Since being home, sugars have been quite high. She does not endorse any recent illness or other concerns. Medication compliance is unclear. ER course and findings: - BG 730, K 6.5, AG 19, pH 7.26, Hco3 17. lactate wnl at 1.8 - WBC 10, UA turbid but negative nitrite, culture ordered - given IV insulin x1, 500mL NS bolus, then started insulin gtt Upon arrival to the floor, patient is sleepy but arousable. She denies concerns for hospitalist team. She is not requiring supplemental oxygen. Kati was able to wean off the insulin drip the evening of the day she was admitted. She was started back on long-acting insulin at a lower dose than she had previously been on. Her blood sugars have been consistently in the 200 range, with no hypoglycemia. I have spoken with her at length on several occasions about a sliding scale for home and I think she would be able to attempt this. She is also agreeable and thinks that she will be able to do this. We are teaching her and her son today upon discharge how to sliding scale and again giving her diabetic teaching. I would like her to follow-up with her primary care provider this week yet as she is a very brittle type 1 diabetic and it is difficult to know what her needs are at home and what her diet is like there. Due to the many recurrent admissions that she has had for hypoglycemia and hyperglycemia, she is at high risk for readmission. I have offered to look for halfway facility for her to be a more controlled environment for diet and insulin regimens, but she has declined today. I have spoken with PT and OT who saw her this weekend and they note that she has previously declined in-home therapies and that these did not work out. From a therapy standpoint she does not need halfway facility, but may benefit from it for her diabetic needs. Again patient has declined. She is discharged home today in improved condition. She has had no hypoglycemia. Hyperglycemia is within acceptable range, although may change based on her home diet and abilities to follow the insulin regimen. I am sending her home with a long-acting insulin at a low dose that is to be given in the mornings in case there is a bolus affect as I am trying to avoid hypoglycemia in the middle of the night. Additionally I am giving her mealtime insulin along with a sliding scale, with no sliding scale in the evening, again to prevent hypoglycemia overnight. Again I am concerned about her risk for readmission and would like her to follow-up with her primary this week. Time Spent with Patient Time attestation: Total time spent providing and/or coordinating discharge services: Exam Narrative: Exam Narrative: General: Laying comfortably in bed. No acute distress. Awake, alert, oriented. No pallor. No jaundice. Oropharynx: Clear. Mucous membranes moist. Cardiovascular: Regular rate and rhythm. No murmurs, gallops, or rubs. Respiratory: Clear to auscultation bilaterally. No wheezes or crackles. Extremities: No pedal edema. Const: Vital Signs, click to edit/add: Vital Signs - 24 hr 04/01/24 12:45 04/01/24 15:00 04/01/24 15:00 Temperature Pulse Rate Pulse Rate [Pulse Oximeter] 87 86 Respiratory Rate 20 Blood Pressure [Ri ght Arm] Pulse Oximetry 90 90 Oxygen Delivery Me thod Room Air 04/01/24 15:00 04/01/24 17:00 04/01/24 19:50 Temperature 98.0 F Pulse Rate 100 Pulse Rate [Pulse Oximeter] 85 97 Respiratory Rate 20 18 Blood Pressure [Ri ght Arm] 176/66 H 194/82 H Pulse Oximetry 92 93 Oxygen Delivery Me thod Room Air Room Air 04/01/24 21:25 04/01/24 22:57 04/01/24 23:00 Temperature Pulse Rate 79 Pulse Rate [Pulse Oximeter] 80 Respiratory Rate 18 Blood Pressure [Ri ght Arm] 174/54 H Pulse Oximetry Oxygen Delivery Me thod 04/01/24 23:09 04/01/24 23:09 04/02/24 03:00 Temperature 97.3 F L 97.7 F Pulse Rate Pulse Rate [Pulse Oximeter] 80 80 Respiratory Rate 18 16 Blood Pressure [Ri ght Arm] 143/57 H 125/45 L Pulse Oximetry 91 91 89 Oxygen Delivery Me thod Room Air Room Air 04/02/24 07:08 04/02/24 08:15 04/02/24 08:15 Temperature Pulse Rate 72 Pulse Rate [Pulse Oximeter] 73 Respiratory Rate 18 Blood Pressure [Ri ght Arm] Pulse Oximetry 92 Oxygen Delivery Me thod 04/02/24 08:15 Temperature 97.9 F Pulse Rate Pulse Rate [Pulse Oximeter] 73 Respiratory Rate 18 Blood Pressure [Ri ght Arm] 164/64 H Pulse Oximetry 92 Oxygen Delivery Me thod Room Air DS: Data Data Completed and Pending Completed studies during hospitalization: 03/30/2024 EKG: Normal sinus rhythm, 89 beats per minute, left axis deviation, low-voltage QRS. Labs on day of discharge: Labs from last 24 hours 04/02/24 06:10 WBC 6.66 RBC 3.10 L Hgb 8.9 L Hct 28.9 L MCV 93 MCH 29 MCHC 31 L RDW Coeff of Stefan 15.2 Plt Count 233 Neut % (Auto) 67.9 Lymph % (Auto) 14.9 L [place] % (Auto) 9.3 Eos % (Auto) 6.2 Baso % (Auto) 0.5 Neut # (Auto) 4.53 Lymph # (Auto) 1.00 [place] # (Auto) 0.60 Eos # (Auto) 0.41 Baso # (Auto) 0.03 Abs Immat Gran (auto) 0.08 Imm/Tot Granulo (auto) 1.2 Sodium 137 Potassium 4.2 Chloride 107 Carbon Dioxide 26 Anion Gap 4 L BUN 21 Creatinine 1.4 Estimated Creat Clear 37.49 Estimated GFR 43 Glucose 173 H Calcium 9.0 Discharge Plan Discharge Disposition: Home, Self-Care Date of Admission: 03/30/24 08:10 Attending Provider on Discharge: Amina Velarde Primary Care Provider: Barbara Valentin Condition: Improved Anticipated Discharge Date/Time: 04/02/24 12:01 Discharge Medications: New insulin glargine [Lantus Solostar U-100 Insulin] 100 unit/mL (3 mL) Insulin Pen 5 unit subcut DAILY Qty: 15 0RF insulin lispro [Humalog KwikPen Insulin] 100 unit/mL insulin pen 4 unit subcut TIDWMEAL Qty: 4.5 2RF insulin lispro [Humalog KwikPen Insulin] 100 unit/mL insulin pen 1 sliding scale dose subcut TIDWMEAL Qty: 15 0RF Rx Instructions: Blood Glucose 150 or less, no extra insulin. Blood Glucose 151-200, add 2 units to mealtime insulin Blood Glucose 201-250, add 4 units to mealtime insulin Blood Glucose 251-300, add 6 units to mealtime insulin Blood Glucose 301-350, add 8 units to mealtime insulin Blood Glucose 351 to 400, add 10 units to mealtime insulin Blood Glucose 401 and greater, add 12 units to mealtime insulin Continued atorvastatin 20 mg tablet 20 mg PO HS torsemide 20 mg tablet 40 mg PO DAILY cetirizine 5 mg tablet 5 mg PO DAILY sennosides-docusate sodium [Stool Softener-Stimulant Laxat] 8.6-50 mg tablet 2 tab PO BID PRN omeprazole 20 mg capsule,delayed release(DR/EC) 20 mg PO DAILY metoprolol succinate 25 mg tablet extended release 24 hr 25 mg PO DAILY oxycodone 5 mg tablet 5 mg PO BID PRN duloxetine 60 mg capsule,delayed release(DR/EC) 60 mg PO DAILY pregabalin 50 mg capsule 50 mg PO HS Rx Instructions: WITH 100 MG DOSE = 150 MG QHS pregabalin 100 mg capsule 100 - 200 mg PO BID Rx Instructions: 200 MG IN AM AND 150 MG IN PM cholecalciferol (vitamin D3) 50 mcg (2,000 unit) capsule 50 mcg PO DAILY buprenorphine 5 mcg/hour patch weekly 1 patch transdermal Q7D polyethylene glycol 3350 [Miralax] 17 gram/dose powder 17 g PO DAILY PRN amlodipine 2.5 mg tablet 2.5 mg PO BID vitamin W89-gqdqp acid 2,500-400 mcg tablet,disintegrating 1 tab PO DAILY levothyroxine 125 mcg tablet 125 mcg PO DAILY fluoxetine 10 mg capsule 10 mg PO DAILY cyanocobalamin (vitamin B-12) 1,000 mcg tablet 1,000 mcg PO DAILY Baqsimi 3 mg/actuation spray,non-aerosol 3 mg intranasal DIRECTED PRN naloxone [Narcan] 4 mg/actuation spray,non-aerosol 4 mg intranasal DIRECTED PRN acetaminophen 650 mg tablet extended release 1,300 mg PO Q8H Discontinued insulin lispro [Humalog KwikPen Insulin] 100 unit/mL insulin pen 8 unit subcut TIDWM 30 Days 0RF Discharge Orders: Discharge Order (Routine); Ordered 04/02/24 Ordered By: Amina Velarde Activity Level: Activity as Tolerated and Use Walker Discharge Diet: Diabetic Follow Up Appointments: Barbara Valentin DO [Primary Care Provider] - (3-5 days (this week), Hgb, BMP) Forms: MyHealth Info Instructions
--- NOTE | 2024-04-02 10:36 | NUTR.NU ---
RDN with diet education related to history of type 1 diabetes. Patient admitted for high blood glucose, found to be in Diabetic Ketoacidosis. Past medical history includes type 1 diabetes mellitus, COPD, and chronic kidney disease stage 4. Current weight 218 lb 11.2 oz; height 5ft 5in; BMI 36.4 kg/m2.? Current diet order is Regular. Meal intakes have varied since admit, average about 75%. Patient was recently hospitalized from 03/16/24 to 03/22/24 for Congestive Bautista Failure?(CHF). RDN visited with patient during that visit on 03/19/24 and offered diet education related to CHF and diabetes. She declined diet education related to diabetic and CHF diet, however accepted educational materials at that time. RDN visited with patient whom reports a good appetite. She is currently on a Regular diet, RDN offered Diabetic Heart Healthy Diet however patient declined at this time. RDN offered diet education related to diabetes, congestive heart failure, and chronic kidney disease however patient declined at this time. No designated caregiver listed at this time. RDN recommending outpatient nutrition appointment in clinic setting for patient and family. No nutrition interventions at this time. RDN will continue to monitor and follow-up prn.
--- NOTE | 2024-04-02 10:53 | PC.NURSE ---
Pt has no complaints during morning meds and assessment. Meds per MAR.
[2024-04-02 11:00] VITALS: BP 159/63; PULSE 82; RESP 18; TEMP 36.5; O2SAT 91
--- NOTE | 2024-04-02 11:40 | PC.SOCIAL ---
Discharge planning: Met with pt regarding d/c plan. Pt is planning to discharge home with assistance of family and is refusing assistance in placement at t higher level of care. Pt is aware social services designee is available to assist with information on group home or assisted living options if desired. Pt is aware of how to reach out to social services designee if she changes her mind about discharge to home and is interested in placement.
[2024-04-17 10:08] LABS: Glucose, Point-of-Care* 576 mg/dl (60-115)
== END 2024-04-02 17:05 | disposition home or self-care (01) | DRG 638 ==
LOC: ED 04:46 → MEDSURG 07:53
PROVIDERS: Family Medicine; Admitting Provider Family Medicine; Emergency Provider Internal Medicine; PCP Family Medicine; Visit Provider Family Medicine
DX: E10.10 Type 1 diabetes mellitus with ketoacidosis without coma (principal); I13.0 Hypertensive heart and chronic kidney disease with heart failure and stage 1 through stage 4 chronic kidney disease, or unspecified chronic kidney disease; N18.4 Chronic kidney disease, stage 4 (severe); N39.0 Urinary tract infection, site not specified; Z79.4 Long term (current) use of insulin; E10.22 Type 1 diabetes mellitus with diabetic chronic kidney disease; I50.9 Heart failure, unspecified; J44.9 Chronic obstructive pulmonary disease, unspecified; E10.319 Type 1 diabetes mellitus with unspecified diabetic retinopathy without macular edema; G89.4 Chronic pain syndrome; D63.8 Anemia in other chronic diseases classified elsewhere
CPT/HCPCS: 36415; 80048; 80053; 81001; 81003; 82803; 82947; 82962; 83036; 83605; 83735; 84100; 85025; 87086; 87493; 93005; 94761; 97116; 97161; 97166; 97530; 97535; 99283; 99285; 99291; A0425; A0427; A9270; J0696; J1815; J3590; J7030; J7050; J7120

== ENCOUNTER 2024-04-05 15:24 | Outpatient (CLI) | payer OTHER, SELFPAY ==
--- OUTSIDE RECORDS SUMMARY | 2024-04-05 15:25 | XMS_ITS | Encounter Summary ---
Author Organization [facility] Address [address] [place] [address] Care Team Providers Care Lab Associate Name Role Phone Barbara Valentin DO Primary Care Provider [phone] Encounter Details Date Type Department Care Team (Late st Contact Info) Description 02/01/2024 Telephone [facility] [address] [place] [address] Gabriel Hicks MD [address] [place] [address] Social History Tobacco Use Types [...] on filedocumented in this encounter Care Teams Lab Associate Relationship Specialty Start Date End Date Barbara Valentin DO [address] [place] [address] PCP - General Family Medicine 09/22/23 documented as of this encounter
--- OUTSIDE RECORDS SUMMARY | 2024-04-05 15:25 | XMS_ITS | Clinical Summary ---
Author Organization [facility] [place] Address [address] [facility] [place] [address] Phone Care Team Providers Care Remote Inpatient Coder Name Role Phone Barbara Valentin DO Primary Care Provider [phone] Allergies Active Allergy Reactions Criticality Noted Date [...] One Pack) 3 MG/DOSE powder Inhale 1 [place] into affected nostril(s) each time if needed [...] Team Description 02/01/2024 Telephone [facility] [address] [facility] [address] [place] [phone] Gabriel Hicks MD 01/23/2024 Documentation Only [facility] [address] [facility] [address] [place] [phone] Ronnell Kirby 01/23/2024 Office Communication [facility] [address] [facility] [address] [place] [phone] Ronnell Kirby from Last 3 Months Immunizations [...] Performing Organization Address City/[facility] [place] [facility]/ZIP Co de Phone Number ALLINA * (ABNORMAL) [...] BESSY from Last 3 Months Care Teams Remote Inpatient Coder Relationship Specialty Start Date End Date Barbara Valentin DO [address] [place] [address] PCP - General Family Medicine 09/22/23
--- OUTSIDE RECORDS SUMMARY | 2024-04-05 15:26 | XMS_ITS | Clinical Summary ---
Author Organization [facility] Address [place], [place] [address] Care Team Providers Care Internal Communications Manager Name Role Phone Julio Ibrahim MD Unavailable Chuy Doss MD Unavailable [phone] Markel Strong MD Unavailable Nikolai Ibarra MD Unavailable [phone] Barbara Valentin Patricia DO Primary Care [...] mellitus at risk of hypoglycemia Inhale 1 [place] into affected nostril(s) each time if needed for Severe Hypoglycemia. Roll on side and call 911 after administration. 2 Each 12/25/19 22 Active fluticasone (50 mcg per actuation) nasal solution (FLONASE)Indicati ons:Nasal congestion Inhale 1 [place] into affected nostril(s) once daily. Inhale 1 [place] in the nostril(s) once daily. 16 g [...] 2 04/20/20 Active continuous glucose monitor READER (WeShopStyle Elli 2 [place])Indication s:Type 1 diabetes mellitus with other specified complication (HC) To be used to read blood sugars per mold inspector's directions. 1 Each 05/19/20 Active blood-glucose meterIndications: [...] be used to read blood sugars per mold inspector's directions. 6 Each 3 09/06/19 24 Active [...] Chronic, continuous use of opioids Inhale 1 [place] into affected nostril(s) each time if needed [...] agreement signed - 10/07/23 10/07/2023 Overview (10/07/2023): [facility] Noemí Dennis .................... 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 helper care 07/2015- 05/2017 Hospitalized with ketoacidosis 06/2017 [...] post total right knee replacement 01/02/2015 06/10/2017 halfway (current) use of anticoagulants 11/27/2013 12/28/2013 Anticoagulation [...] Encounters Date Type Department Care Team Description 04/04/2024 Refill [facility] [address] [place] [address] Shaqra Barbara Patricia, DO Refill Request (Amlodipine, Omeprazole) 03/27/2024 Telephone [facility] [address] [place] [address] Saúlqra Barbara Patricia, DO Questions 03/16/2024 Refill [facility] [address] [place] [address] Toshia Hooks NP Refill Request 03/14/2024 10:30 AM CDT Home Care Visit [facility] [address] [place] [phone] Geneva Sanchez, RN SN - OASIS DISCHARGE 03/12/2024 Refill [facility] [address] [place] [address] Saúlqra Barbara Patricia, DO Refill Request (Pregabalin, Fluoxetine, Duloxetine) 03/06/2024 10:00 AM CDT Home Care Visit [facility] [address] [place] [address] Geneva Sanchez, RN SN - HOME VISIT 03/06/2024 9:15 AM CDT Home Care Visit [facility] [address] [place] [address] Alex Contreras INDUSTRIAL CAFETERIA MANAGER - HOME VISIT 03/03/2024 Home Care Visit [facility] [address] [place] [phone] Nitza Riojas LISW CARE COORDINATION 02/28/2024 2:00 PM CDT Home Care Visit [facility] [address] [place] [phone] Shania Elaine, RN SN - HOME VISIT 02/28/2024 10:45 AM CDT Home Care Visit [facility] [address] [place] [phone] Fabiola Mathis INDUSTRIAL CAFETERIA MANAGER - HOME VISIT 02/25/2024 Home Care Visit [facility] [address] [place] [phone] Nitza Riojas LISW CARE COORDINATION 02/22/2024 3:00 PM CDT Home Care Visit [facility] [address] [place] [phone] Trini Hitchcock, LOS SN - HOME VISIT 02/22/2024 Home Care Visit [facility] [address] [place] [phone] Dar Phillips OT OT - DISCIPLINE DISCHARGE 02/21/2024 9:45 AM CDT Home Care Visit [facility] [address] [place] [phone] Alex Contreras INDUSTRIAL CAFETERIA MANAGER - HOME VISIT 02/20/2024 Home Care Visit [address] [phone] Nitza Riojas LISW CANINE ENFORCEMENT OFFICER - INITIAL ASSESSMENT 02/16/2024 Refill [facility] [address] [place] [address] Toshia Hooks NP Refill Request (oxyCODONE (ROXICODONE) 5 mg immediate release tablet ) 02/15/2024 3:45 PM CDT Home Care Visit [facility] [address] [place] [phone] Coleman Greene, PT PT - DISCIPLINE DISCHARGE 02/15/2024 11:00 AM CDT Home Care Visit [facility] [address] [place] [address] Geneva Sanchez, LOS SN - HOME VISIT 02/14/2024 12:00 PM CDT Home Care Visit [facility] [address] [place] [address] Joi Moreno, VARELA OT - HOME VISIT 02/14/2024 8:15 AM CDT Home Care Visit [facility] [address] [place] [phone] Fabiola Mathis INDUSTRIAL CAFETERIA MANAGER - HOME VISIT 02/10/2024 3:30 PM CDT Home Care Visit [facility] [address] [place] [address] Joi Moreno, VARELA OT - HOME VISIT 02/10/2024 Home Care Visit [facility] [address] [place] [phone] Nitza Riojsa LISW CANINE ENFORCEMENT OFFICER - CASE COMMUNICATION 02/09/2024 Refill [facility] [address] [place] [address] Barbara Valentin DO Refill Request (Duloxetine) 02/08/2024 3:00 PM CDT Home Care Visit [facility] [address] [place] [phone] Veda Resendiz RN SN - WOUND/OSTOMY CHART CONSULT 02/08/2024 9:00 AM CDT Home Care Visit [facility] [address] [place] [phone] Geneva Sanchez RN SN - HOME VISIT 02/08/2024 Telephone [facility] [address] [place] [address] Barbara Valentin DO Pharmacist Medication Management (MEDICATION CHANGE) 02/08/2024 Telephone [facility] [address], [place] [phone] Geneva Sanchez, assistant administrator List Update 02/07/2024 4:00 PM CDT Home Care Visit [facility] [address] [place] [address] Joi Moreno VARELA OT - HOME VISIT 02/07/2024 9:30 AM CDT Home Care Visit [facility] [address] [place] [address] Kendal Serna, PT PT - HOME VISIT 02/07/2024 Telephone [facility] [address] [place] [address] Saúlqra Barbara Patricia, DO Refill Request (Insulin lispro pens) 02/04/2024 Refill [facility] [address] [place] [address] Shaqra, Barbara Patricia, DO Refill Request (Insulin Lispro) 02/03/2024 9:00 AM CDT Home Care Visit [facility] [address] [place] [address] Joi Moreno VARELA OT - HOME VISIT 02/02/2024 11:00 AM CDT Home Care Visit [facility] [address] [place] [address] Kendal Serna, PT PT - HOME VISIT 02/01/2024 4:00 PM CDT Home Care Visit [facility] [address] [place] [address] Joi Moreno VARELA OT - HOME VISIT 01/31/2024 9:30 AM CDT Home Care Visit [facility] [address] [place] [address] Fabiola Mathis INDUSTRIAL CAFETERIA MANAGER - HOME VISIT 01/31/2024 Home Care Visit [facility] [address] [place] [phone] Oumou Burns, LOS CARE COORDINATION 01/31/2024 Home Care Visit [facility] [address] [place] [phone] Oumou Burns, LOS CARE COORDINATION 01/30/2024 10:45 AM CDT Home Care Visit [facility] [address] [place] [phone] Kendal Serna, PT PT - HOME VISIT 01/30/2024 9:00 AM CDT Home Care Visit [facility] [address] [place] [phone] Geneva Sanchez, LOS SN - INITIAL ASSESSMENT 01/25/2024 1:30 PM CDT Home Care Visit [facility] [address] [place] [phone] Coleman Greene, PT PT - HOME VISIT 01/25/2024 Travel 01/24/2024 1:00 PM CDT Home Care Visit [facility] [address] [place] [phone] Dar Phillips, OT OT - INITIAL ASSESSMENT 01/24/2024 9:30 AM CDT Home Care Visit [facility] [address] [place] [phone] Fabiola Mathis INDUSTRIAL CAFETERIA MANAGER - HOME VISIT 01/24/2024 Home Care Visit [facility] [address] [place] [phone] Narcisa Atkinson, RN CARE COORDINATION 01/23/2024 Home Care Visit [facility] [address] [place] [phone] Narcisa Atkinson, RN CARE COORDINATION 01/20/[address] [facility] [address] [place] [address] Toshia Hooks, GISEL Refill Request 01/18/2024 1:45 PM CDT Home Care Visit [facility] [address] [place] [phone] Kendal Serna, PT PT - OASIS START OF CARE 01/18/2024 10:30 AM CDT Phone Office Visit [facility] [address] [place] [address] Nikolai Ibarra MD 01/18/2024 Plan of Care Documentation [facility] [address] [place] [address] 01/18/2024 Patient Outreach [facility] [address] [place] [address] Maria R Ho, RN Primary RN Care Management; Hospital F/U (Lace 44) 01/18/2024 Travel 01/12/2024 9:13 PM CDT - 01/17/2024 5:23 PM CDT Hospital Encounter [facility] [address] [place] [address] Megan, MD Nedra Valverde, DO Chente Honeycutt, MD Dusty Manjarrez, MD Ricky Alston, Helder Hoover MD [facility] Hospitalists Of Opioid dependence, uncomplicated (HC) (Primary Dx); Nasal congestion; Chronic pain syndrome; Diabetic ketoacidosis without coma associated with type 1 diabetes mellitus (HC); 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, macular edema presence unspecified, unspecified laterality, unspecified proliferative retinopathy type (HC); Heel ulcer, right, with unspecified severity (HC) Discharge Disposition: [facility] 01/09/2024 Refill [facility] [address] [place] [address] Barbara Valentin DO Refill Request (Fluoxetine) 01/09/2024 Refill [facility] [address] [place] [address] Elian Humphrey MD Refill Request (Torsemide) 01/06/2024 4:00 PM CDT Office Visit [facility] [address] [place] [address] Toshia Hooks NP Follow Up; Pain (Multi source; was told by her Supply Chain Coordinator she can ot use OTC Voltaren gel., [...] Description 04/06/2024 11:25 AM CDT Office Visit [facility] [address] [place] [address] Barbara Valentin, DO [address] [place] [address] 04/13/2024 11:00 AM CDT Office Visit [facility] [address] [place] [address] Barbara Valentin, DO [address] [place] [address] 05/04/2024 3:00 PM CDT Office Visit [facility] [address] [place] [address] Barbara Valentin, DO [address] [place] [address] 05/04/2024 3:30 PM CDT Phone Office Visit [facility] [address] [place], [place] [phone] Nikolai Ibarra MD [address] [place] [address] Health Maintenance Due Date Last Done Comments [...] 03/18/2020, Additional history exists Fecal testing sDNA-FIT ([place] guard) for age 45-75 11/10/2024 11/10/2021 Pneumococcal series for age 6-64 (3 of 3 - PPSV23 or PCV20) 2026 08/17/2016, 08/14/2014, 07/04/2005, Additional history exists Lipids for age 45-75 04/28/2027 04/28/2022, 08/17/2019, 08/31/2018, Additional history exists Tdap Completed 08/25/2010 HIV for age 15-65 Completed 07/21/2015 Hepatitis C screening for ag e 18-79 Completed 02/16/2018 Medical Devices Implanted Type Area Military Analyst Device Identifier Shelf Expiration Date Model / Serial / Lot [id number] 2x12mm [[id number]] Implanted:Qty: 1 on 08/08/2008 at [facility] Explanted:at [facility] (Quantity not on file) [employer] [id number]# / [id number] / Stem Compnt Primary 8mm Mini - [id number] Implanted:Qty: 1 on 03/17/2011 at [facility] Right: Shoulder BIOMET [id number]# / / [id number] Head Hum Bio-Mod [id number] - [id number] Implanted:Qty: 1 on 03/17/2011 at [facility] Right: Shoulder BIOMET [id number]# / / [id number] Base Glenoid Hybrid 4mm Sm - [id number] Implanted:Qty: 1 on 03/17/2011 at [facility] Right: Shoulder BIOMET 138476# / / [id number] Cmnt 1/2 D[employer] - [id number] Implanted:Qty: 1 on 03/17/2011 at [facility] Right: Shoulder [employer] 6188-1-01 0# / / [id number] Post Glenoid Hybrid Regenerex - [id number] Implanted:Qty: 1 on 03/17/2011 at [facility] Right: Shoulder BIOMET [id number] # / / [id number] Head Humeral 44x15 Co Cr Biomodular - [id number] Implanted:Qty: 1 on 07/12/2012 at [facility] Left: Shoulder BIOMET 137034# / / [id number] Shoulder Stem Implanted:Qty: 1 on 07/12/2012 at [facility] Left: Shoulder [id number] / / [id number] Description:SHOULDER STEM Cmnt Bone 1/2 [employer] - [id number] Implanted:Qty: 1 on 07/12/2012 at [facility] Left: Shoulder [employer] 6188-1-01 0# / / [id number] Post Glenoid Hybrid Regenerex - [id number] Implanted:Qty: 1 on 07/12/2012 at [facility] Left: Shoulder BIOMET [id number] # / / [id number] Base Glenoid Hybrid 4mm Sm - [id number] Implanted:Qty: 1 on 07/12/2012 at [facility] Left: Shoulder BIOMET [id number]# / / [id number] Procedures Procedure Name Priority Date/Time Associated Diagnosis [...] HIV 1/2 Add On 07/21/2015 9:40 AM TRUCK RENTAL SERVICE ATTENDANT FLAT KNITTER THIN PREP PAP SCREEN IMAGED Routine 08/17/2012 4:02 PM TRUCK RENTAL SERVICE ATTENDANT Screening for malignant neoplasm of the cervix [...] - 100 mg/dL 01/17/2024 11:35 AM CDT [facility] Blood BLOOD SPECIMEN / Unknown 01/17/2024 11:27 AM CDT 01/17/2024 11:35 AM CDT Helder García MD CHEMISTRY [facility] [employer] [facility] [address] [place] [address], * (ABNORMAL) CREATININE (01/17/2024 8:20 AM CDT) Only the most recent of3 resultswithin the time period is included. eGFR 47(L) >90 mL/min/1.7 3m2 01/17/2024 9:06 AM CDT [facility] Comment:As of 2021, eG FR is calculated by the CKD-EPI creatinine equation without race adjustment. ??eGFR can be influenced by muscle mass, exercise, and diet. ??The reported eGFR is an estimation only and is only applicable if the renal function is stable. CREATININE 1.28(H) 0.50 - 0.90 mg/dL 01/17/2024 9:06 AM CDT [facility] Blood BLOOD SPECIMEN / Unknown Non-Lab Venipuncture / Unknown 01/17/2024 8:20 AM CDT 01/17/2024 8:26 AM CDT Helder García MD CHEMISTRY Performing Organization Address [facility] de Phone Number [facility] [address] [place] [address], * PHOSPHORUS (01/17/2024 8:20 AM CDT) Only the most recent of5 resultswithin the time period is included. PHOSPHORUS 2.6 2.5 - 4.5 mg/dL 01/17/2024 9:06 AM CDT [facility] Blood BLOOD SPECIMEN / Unknown Non-Lab Venipuncture / Unknown 01/17/2024 8:20 AM CDT 01/17/2024 8:26 AM CDT Sarah Betancourt RN CHEMISTRY Performing Organization Address [facility] de Phone Number [facility] [address] [place] [address], * (ABNORMAL) BASIC METABOLIC PANEL (01/17/2024 8:20 AM CDT) Only the most recent of5 resultswithin the time period is included. SODIUM 139 136 - 145 mmol/L 01/17/2024 12:35 PM CDT [facility] POTASSIUM 3.9 3.5 - 5.1 mmol/L 01/17/2024 12:35 PM CDT [facility] CHLORIDE 103 98 - 107 mmol/L 01/17/2024 12:35 PM CDT [facility] CO2,TOTAL 24 22 - 29 mmol/L 01/17/2024 12:35 PM CDT [facility] ANION GAP 12 5 - 18 01/17/2024 12:35 PM CDT [facility] GLUCOSE 162(H) 70 - 99 mg/dL 01/17/2024 12:35 PM CDT [facility] CALCIUM 8.7(L) 8.8 - 10.2 mg/dL 01/17/2024 12:35 PM CDT [facility] BUN 17 8 - 23 mg/dL 01/17/2024 12:35 PM CDT [facility] CREATININE 1.31(H) 0.50 - 0.90 mg/dL 01/17/2024 12:35 PM CDT [facility] BUN/CREAT RATIO 13 10 - 20 12:35 PM CDT [facility] eGFR 46(L) >90 mL/min/1.7 3m2 01/17/2024 12:35 PM CDT [facility] Comment: As of [...] 8:26 AM CDT Helder García MD CHEMISTRY [facility] [address] [place] [address], * CLOSTRIDIOIDES DIFFICILE TOXIN PCR (01/16/2024 12:27 PM CDT) CLOSTRIDIUM DIFFICILE PCR Negative 01/16/2024 2:18 PM CDT [facility] PRESUMPTIVE NAP1 STRAIN Negative 01/16/2024 2:18 PM CDT [facility] Stool STOOL SPECIMEN / Unknown Non-Blood / Unknown 01/16/2024 12:27 PM CDT 01/16/2024 12:51 PM CDT Narrative [facility] - 01/16/2024 2:18 PM CDT The NAP1 (027 or BI) strain is a hypervirulent strain. Detection may be useful for epidemiological purposes. Helder García MD MICROBIOLOGY Performing Organization Address [facility] Co de Phone Number [facility] [address] [place] [address], * SCAN CORRESP-EKG RESULTS (01/16/2024 9:07 AM [...] Fabrizio Montano MD HEMATOLOGY Performing Organization Address City/[facility]/ZIP Co de Phone Number [facility] [address] [place] [address], * VANCOMYCIN (01/16/2024 6:30 AM CDT) Only the most recent of3 resultswithin the time period is included. VANCOMYCIN 13.0 ug/mL 01/16/2024 7:42 AM CDT [facility] TR[facility] Comment:No Reference Range D efined. DATE OF LAST DOSE,RANDOM Not Given 01/16/2024 7:42 AM CDT [facility] TIME OF LAST DOSE,RANDOM Not Given 01/16/2024 7:42 AM CDT [facility] Blood BLOOD SPECIMEN / Unknown Venipuncture / Unknown 01/16/2024 6:30 AM CDT 01/16/2024 6:58 AM CDT Barbara Holcomb NP CHEMISTRY Performing Organization Address [facility] de Phone Number [facility] [address] [place] [address], * (ABNORMAL) PLATELET COUNT (01/15/2024 6:02 AM CDT) PLATELET COUNT 166 140 - 440 thou/cu mm 01/15/2024 6:44 AM CDT [facility] MPV 11.2(H) 6.5 - 11.0 fL 01/15/2024 6:44 AM CDT [facility] Blood BLOOD SPECIMEN / Unknown Venipuncture / Unknown 01/15/2024 6:02 AM CDT 01/15/2024 6:26 AM CDT Fabrizio Montano MD HEMATOLOGY Performing Organization Address City/[facility]/ZIP Co de Phone Number [facility] [address] [place] [address], * WHITE BLOOD COUNT (01/15/2024 6:02 AM CDT) WHITE BLOOD COUNT 4.9 4.5 - 11.0 thou/cu mm 01/15/2024 6:44 AM CDT [facility] NRBC 0.0 % 01/15/2024 6:44 AM CDT [facility] ABS NRBC 0.0 thou /cu mm 01/15/2024 6:44 AM CDT [facility] Blood BLOOD SPECIMEN / Unknown Venipuncture / Unknown 01/15/2024 6:02 AM CDT 01/15/2024 6:26 AM CDT Fabirzio Montano MD HEMATOLOGY Performing Organization Address [facility] de Phone Number [facility] [address] [place] [address], [place] * Sodium AM (01/15/2024 6:02 AM CDT) SODIUM 142 136 - 145 mmol/L 01/15/2024 7:13 AM CDT [facility] Blood BLOOD SPECIMEN / Unknown Venipuncture / Unknown 01/15/2024 6:02 AM CDT 01/15/2024 6:27 AM CDT Fabrizio Montano MD CHEMISTRY Performing Organization Address [facility] Phone Number [facility] [address] [place] [address], [place] * Potassium AM (01/15/2024 6:02 AM CDT) Only the most recent of3 resultswithin the time period is included. POTASSIUM 4.4 3.5 - 5.1 mmol/L 01/15/2024 7:13 AM CDT [facility] Blood BLOOD SPECIMEN / Unknown Venipuncture / Unknown 01/15/2024 6:02 AM CDT 01/15/2024 6:27 AM CDT Fabrizio Montano MD CHEMISTRY Performing Organization Address [facility] Co de Phone Number [facility] [address] [place] [address], [place] * SCAN-CARDIAC STRIP (01/14/2024 7:07 AM CDT) Scanner OTHER * (ABNORMAL) CBC W PLT NO DIFF (01/14/2024 5:28 AM CDT) WHITE BLOOD COUNT 8.5 4.5 - 11.0 thou/cu mm 01/14/2024 6:33 AM CDT [facility] RED BLOOD COUNT 3.04(L) 4.00 - 5.20 mil/cu mm 01/14/2024 6:33 AM CDT [facility] HEMOGLOBIN 8.9(L) 12.0 - 16.0 g/dL 01/14/2024 6:33 AM T [facility] HEMATOCRIT 27.5(L) 33.0 - 51.0 % 01/14/2024 6:33 AM CDT [facility] MCV 91 80 - 100 fL 01/14/2024 6:33 AM CDT [facility] MCH 29.3 26.0 - 34.0 pg 01/14/2024 6:33 AM CDT [facility] MCHC 32.4 32.0 - 36.0 g/dL 01/14/2024 6:33 AM T [facility] RDW 14.4 11.5 - 15.5 % 01/14/2024 6:33 AM CDT [facility] PLATELET COUNT 198 140 - 440 thou/cu mm 01/14/2024 6:33 AM T [facility] MPV 11.4(H) 6.5 - 11.0 fL 01/14/2024 6:33 AM CDT [facility] NRBC 0.0 % 01/14/2024 6:33 AM T [facility] ABS NRBC 0.0 thou /cu mm 01/14/2024 6:33 AM T [facility] Blood BLOOD SPECIMEN / Unknown Non-Lab Venipuncture / Unknown 01/14/2024 5:28 AM CDT 01/14/2024 6:31 AM CDT Barbara Holcomb SALESPERSON FURS HEMATOLOGY [facility] [address] [place] [address], * (ABNORMAL) CALCIUM IONIZED HOSPITAL DRAW ONLY (01/14/2024 5:28 AM CDT) Only the most recent of3 resultswithin the time period is included. Pathologist [facility] CALCIUM,IONIZE D 1.30(H) 1.15 - 1.27 mmol/L 01/14/2024 6:03 AM CDT [facility] Blood BLOOD SPECIMEN / Unknown Non-Lab Venipuncture / Unknown 01/14/2024 5:28 AM CDT 01/14/2024 5:49 AM CDT Grace Eldridge MD CHEMISTRY [facility] [address] [place] [address], * ECHO TTE COMPLETE W CONTRAST (01/13/2024 3:56 PM CDT) Pathologist [facility] AORTIC VALVE MEAN PG 7 mmHg EJECTION FRACTION 64 % LVEDD 4.1 cm EJECTION FRACTION 60 - 65% Anatomical Region Laterality Modality Ultrasound 01/13/2024 2:53 PM CDT Narrative 01/13/2024 4:39 PM CDT ECHOCARDIOGRAM MIKAYLA KUHN ? Accession#: ?? [id number] : ?1960 63 years Study Date: ?? 01/13/2024 2:53:14 PM Gender: F ?BP: ? 114/44 mmHg Height: 152.00 cm ?BSA: ?1.93 m? ? ? Weight: 98.00 kg ? Tech: ? KBA ? Referring MD: BARBARA HOLCOMB Site: ? [facility] Reading Location: ANW IP Patient Location: [...] 2 ml diluted Definity, lot #[id number], [facility]# [id number] was administered peripherally to enhance visualization of all left ventricular segments. . This study was interpreted by an [facility] accredited facility. ??Final ?? Procedure Note Travon Blood MD - 01/13/2024 ECHOCARDIOGRAM MIKAYLA KUHN : 1960 63 years Study Date: 01/13/2024 2:53:14 PM Gender: F BP: 114/44 mmHg Height: 152.00 cm BSA: 1.93 m? ? ? Weight: 98.00 kg Tech: PASQUALE Referring MD: BARBARA HOLCOMB Site: [facility] Reading Location: ANW IP Patient Location: [...] 2 ml diluted Definity, lot #[id number], [facility]#[id number] was administered peripherally to enhance visualization of allleft ventricular segments. . This study was interpreted by an [facility] accredited facility. Final Barbara Holcomb SALESPERSON FURS ECHO ORD * US ARTERIAL LOWER EXTREMITY [...] exam specific protocol. Ultrasound performed using real-time ivllegas scale imaging (B-mode 2D), color-flow Doppler and spectral analysis. ??Peak systolic velocities (PSV), Doppler waveform quality and velocity ratios if applicable, were documented at sites per exam specific protocol. In addition, resting ankle-brachial indices were obtained. COMPARISON: None available FINDINGS: Right Brachial: 125 mmHg Left Brachial: 111 mmHg Right CHEMISTRY FACULTY MEMBER: Noncompressible Right DPA: 115 mmHg (SAMUEL 0.92) Left CHEMISTRY FACULTY MEMBER: Noncompressible Left DPA: Noncompressible SAMUEL: 1.0-1.4 - normal 0.9-0.99 - borderline 0.80-0.89 - mild 0.50-0.79 - moderate 0.30-0.49 - severe < 0.30 - critical RIGHT: JOB HONER PROX: 204 cm/sec; triphasic waveforms JOB HONER DIST: 138 cm/sec; triphasic waveforms PFA: 97 cm/sec; triphasic waveforms SFA PROX: 140, 111 cm/sec; triphasic waveforms SFA MID: 113, 74 cm/sec; triphasic waveforms SFA DIST: 107, 113 cm/sec; triphasic waveforms POP PROX: 105 cm/sec; triphasic waveforms POP DIST: 89 cm/sec; triphasic waveforms CHEMISTRY FACULTY MEMBER: 32 cm/sec; triphasic waveforms KAITLYN: 58 cm/sec; triphasic waveforms DPA: 56 cm/sec; triphasic waveforms LEFT: JOB HONER PROX: 193 cm/sec; triphasic waveforms JOB HONER DIST: 152 cm/sec; triphasic waveforms PFA: 98 cm/sec; triphasic waveforms SFA PROX: 119, 109 cm/sec; triphasic waveforms SFA MID: 103, 102 cm/sec; triphasic waveforms SFA DIST: 103, 100 cm/sec; triphasic waveforms POP PROX: 124 cm/sec; triphasic waveforms POP DIST: 85 cm/sec; triphasic waveforms CHEMISTRY FACULTY MEMBER: 169 cm/sec; triphasic waveforms KAITLYN: 91 cm/sec; [...] 125 mmHg Left Brachial: 111 mmHg Right CHEMISTRY FACULTY MEMBER: Noncompressible Right DPA: 115 mmHg (SAMUEL 0.92) Left CHEMISTRY FACULTY MEMBER: Noncompressible Left DPA: Noncompressible SAMUEL: 1.0-1.4 - normal 0.9-0.99 - borderline 0.80-0.89 - mild 0.50-0.79 - moderate 0.30-0.49 - severe < 0.30 - critical RIGHT: JOB HONER PROX: 204 cm/sec; triphasic waveforms JOB HONER DIST: 138 cm/sec; triphasic waveforms PFA: 97 cm/sec; triphasic waveforms SFA PROX: 140, 111 cm/sec; triphasic waveforms SFA MID: 113, 74 cm/sec; triphasic waveforms SFA DIST: 107, 113 cm/sec; triphasic waveforms POP PROX: 105 cm/sec; triphasic waveforms POP DIST: 89 cm/sec; triphasic waveforms CHEMISTRY FACULTY MEMBER: 32 cm/sec; triphasic waveforms KAITLYN: 58 cm/sec; triphasic waveforms DPA: 56 cm/sec; triphasic waveforms LEFT: JOB HONER PROX: 193 cm/sec; triphasic waveforms JOB HONER DIST: 152 cm/sec; triphasic waveforms PFA: 98 cm/sec; triphasic waveforms SFA PROX: 119, 109 cm/sec; triphasic waveforms SFA MID: 103, 102 cm/sec; triphasic waveforms SFA DIST: 103, 100 cm/sec; triphasic waveforms POP PROX: 124 cm/sec; triphasic waveforms POP DIST: 85 cm/sec; triphasic waveforms CHEMISTRY FACULTY MEMBER: 169 cm/sec; triphasic waveforms KAITLYN: 91 cm/sec; [...] CDT) CULTURE RESULT(A) 01/16/2024 2:44 PM CDT [facility] CULTURE 3+ Corynebacterium striatum 01/16/2024 2:44 PM CDT [facility] CULTURE 2+ Mixed oni present 01/16/2024 2:44 PM CDT [facility] GRAM STAIN No PMNs 01/16/2024 2:44 PM CDT [facility] GRAM STAIN 2+ RBCs 01/16/2024 2:44 PM CDT [facility] GRAM STAIN No Epithelial cells 01/15 2:44 PM CDT [facility] GRAM STAIN 2+ Gram Positive Bacilli 01/16/2024 2:44 PM CDT [facility] Other (Other) Non-Blood / Unknown 01/13/2024 11:49 AM CDT 01/13/2024 12:00 PM CDT Narrative [facility] - 01/16/2024 2:44 PM CDT Mixed oni; No Staphylococcus aureus, beta-Streptococcus, Streptococcus pneumoniae, or Pseudomonas aeruginosa isolated. Freya Schafer NP MICROBIOLOGY Performing Organization Address [facility]/ZIP Co de Phone Number [facility] [address] [place] [address], [place] * ANAEROBIC CULTURE (01/13/2024 11:49 AM CDT) CULTURE No anaerobes isolated 01/19/2024 10:01 AM CDT [facility] Other (Other) Non-Blood / Unknown 01/13/2024 11:49 AM CDT 01/13/2024 12:00 PM CDT Freya Schafer NP MICROBIOLOGY Performing Organization Address City/[facility]/ZIP Co de Phone Number [facility] [address] [place] [address], [place] * (ABNORMAL) Electrolytes Panel - DKA [...] Ifeanyi Hernández RN CHEMISTRY Performing Organization Address [facility]/[place]UST Co de Phone Number [facility] [address] [address], * SCAN-CARDIAC STRIP (01/13/2024 8:00 AM CDT) Scanner OTHER * MAGNESIUM (01/13/2024 4:22 AM CDT) Only the most recent of2 resultswithin the time period is included. MAGNESIUM 1.9 1.6 - 2.4 mg/dL 01/13/2024 5:07 AM CDT [facility] Blood BLOOD SPECIMEN / Unknown Non-Lab Venipuncture / Unknown 01/13/2024 4:22 AM CDT 01/13/2024 4:41 AM CDT Ifeanyi Hernández RN CHEMISTRY Performing Organization Address [facility]/ZIP Co de Phone Number [facility] [address] [place] [address], * (ABNORMAL) Serum Glucose - DKA (01/13/2024 1:52 AM CDT) Only the most recent of2 resultswithin the time period is included. [facility] GLUCOSE,RANDOM 459(H) 70 - 139 mg/dL 01/13/2024 2:46 AM CDT [facility] Blood BLOOD SPECIMEN / Unknown Non-Lab Venipuncture / Unknown 01/13/2024 1:52 AM CDT 01/13/2024 2:03 AM CDT Emily Guzman MD CHEMISTRY Performing Organization Address City/[facility]/ZIP Co de Phone Number [facility] [address] [place] [address], * (ABNORMAL) TROPONIN T (HS) ONE TIME (01/12/2024 11:39 PM CDT) [facility] TROPONIN T HS 45(H) 6-10 ng/L ng/L 01/13/2024 12:22 AM CDT [facility] Blood BLOOD SPECIMEN / Unknown Non-Lab Venipuncture / Unknown 01/12/2024 11:39 PM CDT 01/12/2024 11:45 PM CDT Emily Guzman MD CHEMISTRY Performing Organization Address City/[facility]/ZIP Co de Phone Number [facility] [address] [place] [address], [place] * 12 Lead EKG (01/12/2024 10:16 PM CDT) [facility] Interpretation Normal sinus rhythm Left axis deviation Abnormal ECG When compared with ECG of 02-Jan-2019 02:01, Nonspecific T wave abnormality now evident in Lateral leads BEYOND NOW Ventricular Rate 78 BPM BEYOND NOW Atrial Rate 78 BPM BEYOND NOW P-R Interval 160 ms BEYOND NOW QRS Duration 82 ms BEYOND NOW QT 400 ms BEYOND NOW QTc 456 ms BEYOND NOW P [place] 72 degrees BEYOND NOW R [place] -31 degrees BEYOND NOW T [place] 69 degrees BEYOND NOW 01/12/2024 10:1 6 PM CDT 01/13/2024 8:20 PM CDT Emily Guzman MD EKG ORD BEYOND NOW [place], [place] * MRSA/SA PCR (01/12/2024 10:07 PM CDT) MRSA DNA PCR Negative Negative 01/12/2024 11:33 PM CDT [facility] STAPHYLOCOCCUS AUREUS PCR Negative Negative 01/12/2024 11:33 PM CDT [facility] Other SPECIMEN FROM INTERNAL NOSE / Unknown Non-Blood / Unknown 01/12/2024 10:07 PM CDT 01/12/2024 10:13 PM CDT Narrative [facility] - 01/12/2024 11:33 PM CDT Test result does not preclude MRSA or SA nasal colonization. Chaparro Sneed DO MICROBIOLOGY Performing Organization Address City/[facility]/ZIP Co de Phone Number [facility] [address] [place] [address], * (ABNORMAL) Urine Culture (01/12/2024 10:07 PM CDT) CULTURE RESULT(A) 01/16/2024 6:58 AM CDT [facility] CULTURE 10,000-50,000 CFU/mL Proteus mirabilis 01/16/2024 6:58 AM CDT [facility] CULTURE 50,000-100,000 CFU/mL Danita albicans 01/16/2024 6:58 AM CDT [facility] Urine URINE SPECIMEN / [...] 128: R Emily Guzman MD MICROBIOL OGY [facility] [address] [place] [address] * Blood Culture (01/12/2024 9:40 PM CDT) Only the most recent of2 resultswithin the time period is included. CULTURE No Growth. 01/16/2024 11:23 PM CDT [facility] Blood BLOOD SPECIMEN / Unknown Venipuncture / Unknown 01/12/2024 9:40 PM CDT 01/12/2024 9:52 PM CDT Narrative [facility] - 01/16/2024 11:23 PM CDT Low volume blood culture received; possible false negative culture. Emily Guzman MD MICROBIOL OGY [facility] [address] [place] [address], * (ABNORMAL) TROPONIN T(HS) ACUTE W/2HR REFLEX (01/12/2024 9:37 PM CDT) [facility] TROPONIN T HS 47(H) 6-10 ng/L ng/L 01/12/2024 10:16 PM CDT [facility] Blood BLOOD SPECIMEN / Unknown Non-Lab Venipuncture / Unknown 01/12/2024 9:37 PM CDT 01/12/2024 9:46 PM CDT Narrative [facility] - 01/12/2024 10:16 PM [...] department patient population. Emily Guzman MD CHEMISTRY [facility] [address] [place] [address], [place] * (ABNORMAL) CBC WITH AUTO DIFFERENTIAL (01/12/2024 9:37 PM CDT) WHITE BLOOD COUNT 14.9(H) 4.5 - 11.0 thou/cu mm 01/12/2024 9:54 PM CDT [facility] RED BLOOD COUNT 3.61(L) 4.00 - 5.20 mil/cu mm 01/12/2024 9:54 PM CDT [facility] HEMOGLOBIN 10.5(L) 12.0 - 16.0 g/dL 01/12/2024 9:54 PM CDT [facility] HEMATOCRIT 32.6(L) 33.0 - 51.0 % 01/12/2024 9:54 PM CDT [facility] MCV 90 80 - 100 fL 01/12/2024 9:54 PM CDT [facility] MCH 29.1 26.0 - 34.0 pg 01/12/2024 9:54 PM CDT [facility] MCHC 32.2 32.0 - 36.0 g/dL 01/12/2024 9:54 PM CDT [facility] RDW 13.2 11.5 - 15.5 % 01/12/2024 9:54 PM CDT [facility] PLATELET COUNT 273 140 - 440 thou/cu mm 01/12/2024 9:54 PM CDT [facility] MPV 11.0 6.5 - 11.0 fL 01/12/2024 9:54 PM CDT [facility] NRBC 0.0 % 01/12/2024 9:54 PM CDT [facility] ABS NRBC 0.0 thou /cu mm 01/12/2024 9:54 PM CDT [facility] % NEUT 80.3 % 01/12/2024 9:54 PM CDT [facility] % LYMPH 9.6 % 01/12/2024 9:54 PM CDT [facility] % MONO 9.2 % 01/12/2024 9:54 PM CDT [facility] % EOS 0.1 % 01/12/2024 9:54 PM CDT [facility] % BASO 0.1 % 01/12/2024 9:54 PM CDT [facility] % IMMATURE GRAN (METAS,MYELOS,MA OS) 0.7 % 01/12/2024 9:54 PM CDT [facility] ABSOLUTE NEUTROPHILS 12.0(H) 1.7 - 7.0 thou/cu mm 01/12/2024 9:54 PM CDT [facility] ABSOLUTE LYMPHOCYTES 1.4 0.9 - 2.9 thou/cu mm 01/12/2024 9:54 PM CDT [facility] ABSOLUTE MONOCYTES 1.4(H) <0.9 thou/cu mm 01/12/2024 9:54 PM CDT [facility] ABSOLUTE EOSINOPHILS 0.0 <0.5 thou/cu mm 01/12/2024 9:54 PM CDT [facility] ABSOLUTE BASOPHILS 0.0 <0.3 thou/cu mm 01/12/2024 9:54 PM CDT [facility] ABSOLUTE IMMATURE GRANULOCYTES(MET ,MYELOS,PROS) 0.1 <0.3 thou/cu mm 01/12/2024 9:54 PM CDT [facility] Blood BLOOD SPECIMEN / Unknown Non-Lab Venipuncture / Unknown 01/12/2024 9:37 PM CDT 01/12/2024 9:46 PM CDT Emily Guzman MD HEMATOLOG Y [facility] [address] [place] [address], [place] * (ABNORMAL) BLOOD GAS,VENOUS (01/12/2024 9:37 PM CDT) PH, VENOUS 7.25(L) 7.32 - 7.43 01/12/2024 9:52 PM CDT [facility] PCO2, VENOUS 44 41 - 51 mmHg 01/12/2024 9:52 PM CDT [facility] PO2, VENOUS 48(H) 35 - 40 mmHg 01/12/2024 9:52 PM CDT [facility] HCO3,VENOUS 19(L) 22 - 29 mmol/L 01/12/2024 9:52 PM CDT [facility] BASE EXCESS, VENOUS, POCT -7.7(L) -2.0 - 3.0 01/12/2024 9:52 PM CDT [facility] O2 SATURATION, VENOUS 85(H) 70 - 75 % 01/12/2024 9:52 PM CDT [facility] INSPIRED O2 21 01/12/2024 9:52 PM CDT [facility] Comment:Unit of Measure: Lit ers (L) if <=20; Percent (%) if >20 PATIENT TEMPERATURE 36.9 Degrees C 01/12/2024 9:52 PM CDT [facility] Blood VENOUS BLOOD SPECIMEN / Unknown Non-Lab Venipuncture / Unknown 01/12/2024 9:37 PM CDT 01/12/2024 9:46 PM CDT Emily Guzman MD CHEMISTRY [facility] [address] [place] [address], [place] * Protime - INR (01/12/2024 9:37 PM CDT) INR 1.0 <1.3 01/12/2024 9:56 PM CDT [facility] PROTIME 11.5 10.3 - 12.3 sec 01/12/2024 9:56 PM CDT [facility] Blood BLOOD SPECIMEN / Unknown Non-Lab Venipuncture / Unknown 01/12/2024 9:37 PM CDT 01/12/2024 9:46 PM CDT [facility] - 01/12/2024 9:56 PM CDT ?Therapeutic [...] on UFH. Emily Guzman MD HEMATOLOG Y [facility] [address] [place] [address], * (ABNORMAL) HEMOGLOBIN A1C MONITORING (POCT) (01/12/2024 9:37 PM CDT) Pathologist [facility] HEMOGLOBIN A1C MONITORING (POCT) 9.3(H) <=6.4 % 01/14/2024 10:29 AM CDT [facility] Blood BLOOD SPECIMEN / Unknown Non-Lab Venipuncture / Unknown 01/12/2024 9:37 PM CDT 01/12/2024 9:46 PM CDT [facility] - 01/14/2024 10:29 AM CDT ? [...] with: Untreated Anemias, Splenectomy ? Barbara Holcomb SALESPERSON FURS CHEMISTRY [facility] [address] [place] [address], * (ABNORMAL) Hepatic Function Panel (01/12/2024 9:37 PM CDT) Pathologist [facility] ALBUMIN 3.2(L) 4.0 - 4.9 g/dL 01/12/2024 10:16 PM CDT [facility] PROTEIN,TOTAL 6.4 6.0 - 8.0 g/dL 01/12/2024 10:16 PM CDT [facility] BILIRUBIN,TOTAL 0.2 0.0 - 1.2 mg/dL 01/12/2024 10:16 PM CDT [facility] BILIRUBIN,DIRECT <0.2 0.0 - 0.3 mg/dL 01/12/2024 10:16 PM CDT [facility] BILIRUBIN,INDIRE CT 01/12/2024 10:16 PM CDT [facility] Comment:Unable to calculate, Direct Bili <0.2 ALK PHOSPHATASE 122(H) 35 - 104 IU/L 01/12/2024 10:16 PM CDT [facility] ALT (SGPT) 21 10 - 35 IU/L 01/12/2024 10:16 PM CDT [facility] AST (SGOT) 20 10 - 35 IU/L 01/12/2024 10:16 PM CDT [facility] Blood BLOOD SPECIMEN / Unknown Non-Lab Venipuncture / Unknown 01/12/2024 9:37 PM CDT 01/12/2024 9:46 PM CDT Emily Guzman MD CHEMISTRY [facility] [address] [place] [address], * SCAN-CARDIAC STRIP (01/12/2024 9:20 PM CDT) [...] health care provider. XR MAMMO BILAT SCREENING [[id number]] CLINICAL HISTORY: ??This is an asymptomatic 61 y.o. patient. INDICATION FOR EXAM: Mammogram Screening. TECHNIQUE: CC & MLO views were obtained. ??This study was evaluated with the assistance of Computer-Aided Detection. COMPARISON FILM: Yes [facility]18 [facility] FINDINGS: ??The breasts are extremely dense, which lowers the sensitivity of mammography. There are no dominant masses, suspicious micro calcifications or areas of architectural distortion. Shania Montiel MD MAMMO * LIPID PANEL W REFLEX MEASURED LDL (04/28/2022 1:44 PM CDT) CHOLESTEROL,TOTAL 139 100 - 199 mg/dL 04/30/2022 6:25 PM CDT [facility] TRIGLYCERIDES 141 <150 mg/dL 04/30/2022 6:25 PM CDT [facility] HDL CHOLESTEROL 42 >40 mg/dL 6:25 PM CDT [facility] NON-HDL CHOLESTEROL 97 <145 mg/dl 04/30/2022 6:25 PM CDT [facility] CHOL/HDL RATIO 3.31 <4.50 04/30/2022 6:25 PM CDT [facility] LDL CHOLESTEROL 69 <=130 mg/dL 04/30/2022 6:25 PM CDT [facility] VLDL CHOLESTEROL 28 <=30 mg/dL 04/30/2022 6:25 PM CDT [facility] PROVIDER ORDERED STATUS RANDOM 04/30/2022 6:25 PM CDT [facility] Blood BLOOD SPECIMEN / Unknown Venipuncture / Unknown 04/28/2022 1:44 PM CDT 04/28/2022 1:45 PM CDT hSania Montiel MD CHEMISTRY [facility] [address] [place] [address], [place] * FECAL DNA (AKA COLOGUARD) (11/10/2021 1:00 PM CDT) Shania Montiel MD COMMUNICATION ORD * ANTI HCV [[id number]] (02/16/2018 4:20 PM CDT) HEPATITIS C ANTIBODY Non-React alex Non-React alex 02/17/2018 2:48 PM CDT [facility] Comment:Antibodies to HCV no t detected; does not exclude the possibility of exposure to HCV. Blood BLOOD SPECIMEN / Unknown Butterfly / Unknown 02/16/2018 4:20 PM CDT 02/16/2018 4:20 PM CDT Coleman Plaat MD SEND OUTS [facility] [address] * HIV 1&2 TODAY (07/21/2015 9:40 AM TRUCK RENTAL SERVICE ATTENDANT) HIV-1/HIV-2 ANTIBODY Non-Reacti ve Non-Reacti ve 07/21/2015 10:31 AM TRUCK RENTAL SERVICE ATTENDANT [facility] Blood specimen (specimen) BLOOD SPECIMEN / Unknown Venipuncture / Unknown 07/21/2015 9:40 AM TRUCK RENTAL SERVICE ATTENDANT 07/21/2015 9:47 AM TRUCK RENTAL SERVICE ATTENDANT Narrative [facility] - 07/21/2015 10:31 AM TRUCK RENTAL SERVICE ATTENDANT HIV-1 p24 and HIV-1/HIV-2 Ab not detected Kait Morales DO SEND OUTS [facility] [address] * FLAT KNITTER THIN PREP PAP SCREEN IMAGED (08/17/2012 4:02 PM TRUCK RENTAL SERVICE ATTENDANT) Pathologist [facility] CYTOLOGY CYTOPATHOLOGY REPORT [facility] Status: Final Status ?[id number] CLINICAL INFORMATION Last Date of LMP ? :07/03/2012 Last Pap Date ?:02/01/2011 Last Pap Result ?:NIL ABN Radcliffe/Bx Past 5 YRS :None Hormone Usage ?:BCP/OCP/Patch/R ing Menstrual Status ? :Regular Periods Radcliffe/Bx done today ? :No Additional Information :None [...] COLLECTED:08/17/12 ? ACCESSIONED: ??08/18/12 ?? SIGNED: ??08/21/12 [facility] PAP [place] CODE NIL [facility] Tissue specimen (specimen) (Cervical/Vagina l) 08/17/2012 4:02 PM TRUCK RENTAL SERVICE ATTENDANT 08/17/2012 4:00 PM TRUCK RENTAL SERVICE ATTENDANT Coleman Plata MD PATHOLOGY/CYTOLOGY [facility] INTERNAL ZIP [address] [place] [phone] from Last 3 Months or Most Recently [...] Urine earlier this year (per report from [facility], not available in CareEverywhere), 04/19/18 L cheek abscess exclusions for contact precaution discontinuation (if > 12 months since positive culture): resides in acute/technician terminal and repeater care, receiving hemodialysis, has chronic open wounds/skin [...] 8:01 PM 07/15/2012 6:55 PM Care Teams Internal Communications Manager Relationship Specialty Start Date End Date SaúlBarbara epps DO [address] [place] [address] PCP - General Family Practice 11/15/22 Julio Ibrahim MD [address] [place], [place] [id number] Surgery - Orthopedics 02/01/11 Chuy Doss MD [address] [place] [address] Surgery - Vascular 02/01/11 Markel Strong MD [address] [place] [address] Provider Family Practice 08/08/20 Nikolai Ibarra MD [address] [place] [address] Endocrinology 09/07/22 Suad Ng/ [employer] CM Commercial Coordinator 07/14/17 [facility] Home Health Nurse 07/01/17 [facility] [employer]ARL C[employer]TER Services Home Health Aide 07/14/17 [facility] Train Operator/ Ally Christianson [address] [place] [address] Commercial Coordinator 07/07/17
--- OUTSIDE RECORDS SUMMARY | 2024-04-05 15:26 | XMS_ITS | Encounter Summary ---
Author Organization [facility] Address [address] [place] [address] Care Team Providers Care Appliance Service Supervisor Name Role Phone Barbara Valentin DO Primary Care Provider [phone] Encounter Details Date Type Department Care Team (Late st Contact Info) Description 01/23/2024 Documentation Only [facility] [address] [place] [address] Ronnell Kirby [address] [place] [address] Social History Tobacco Use Types [...] LAB BLOOD ORDERAB LES Performing Organization Address [facility]/ZIP Co de Phone Number [facility] * (ABNORMAL) Creatine (01/17/2024) Creatine, Serum 1.28(H) [facility] GFR Calculated 47(L) [facility] Blood (Blood, Venous) 01/17/2024 Historical Provider MD LAB BLOOD ORDERAB LES Performing Organization Address [facility]/State/ZIP Co de Phone Number [facility] * (ABNORMAL) Creatine (01/16/2024) Creatine, Serum 1.28(H) [facility] GFR Calculated 47(L) [facility] Blood (Blood, Venous) 01/16/2024 Historical Provider MD LAB BLOOD ORDERAB LES Performing Organization Address [facility] Co de Phone Number [facility] * (ABNORMAL) Creatine (01/15/2024) Creatine, Serum 1.71(H) [facility] GFR Calculated 34(L) [facility] Blood (Blood, Venous) 01/15/2024 Historical Provider MD LAB BLOOD ORDERAB LES Performing Organization Address [facility] Co de Phone Number [facility] * (ABNORMAL) Hemoglobin (01/15/2024) Hemoglobin 8.4(L) g/dL [facility] MCV 91.0 [facility] Blood (Blood, Venous) 01/15/2024 Historical Provider MD LAB BLOOD ORDERAB LES Performing Organization Address [facility] Co de Phone Number [facility] [...] LAB BLOOD ORDERAB LES Performing Organization Address [facility] Co de Phone Number [facility] * (ABNORMAL) CBC (01/14/2024) WBC 8.5 K/uL [facility] Red Blood Cell Count 3.04(L) [facility] Hemoglobin 8.9(L) g/dL [facility] Hematocrit 27.5(L) % [facility] MCV 91 [facility] MCH 29.3 [facility] MCHC 32.4 [facility] RDW 14.4 [facility] Platelet Count 198 [facility] MPV 11.4(H) [facility] Blood (Blood, Venous) 01/14/2024 Historical Provider MD LAB BLOOD ORDERAB LES Performing Organization Address [facility] Co de Phone Number [facility] [...] LAB BLOOD ORDERAB LES Performing Organization Address [facility] de Phone Number [facility] * [...] LAB BLOOD ORDERAB LES Performing Organization Address [facility] Co de Phone Number [facility] [...] on filedocumented in this encounter Care Teams Appliance Service Supervisor Relationship Specialty Start Date End Date Barbara Valentin DO [address] [place] [address] PCP - General Family Medicine 09/22/23 documented as of this encounter
--- OUTSIDE RECORDS SUMMARY | 2024-04-05 15:26 | XMS_ITS | Encounter Summary ---
Author Organization [facility] Address [address] [place] [address] Care Team Providers Care Staff Genetic Counselor Name Role Phone Barbara Valentin DO Primary Care Provider [phone] Encounter Details Date Type Department Care Team (Late st Contact Info) Description 09/22/2023 Documentation Only [facility] [place] [address] [facility] [address] [place] [address] No, Pcp Social History Tobacco [...] on filedocumented in this encounter Care Teams Staff Genetic Counselor Relationship Specialty Start Date End Date Barbara Valentin DO Roxy Calder[place] [address] PCP - General Family Medicine 09/22/23 documented as of this encounter
--- OUTSIDE RECORDS SUMMARY | 2024-04-05 15:26 | XMS_ITS | Encounter Summary ---
Author Organization [facility] Address [address] [place] [address] Care Team Providers Care Electrical Installer Name Role Phone Barbara Valentin DO Primary Care Provider [phone] Encounter Details Date Type Department Care Team (Late st Contact Info) Description 01/23/2024 Office Communication [facility] [place] [address] [place] [address] Ronnell Kirby [address] [place] [address] Social History Tobacco Use Types [...] on filedocumented in this encounter Care Teams Electrical Installer Relationship Specialty Start Date End Date Barbara Valentin DO Roxy Calderon [facility] [place] [address] PCP - General Family Medicine 09/22/23 documented as of this encounter
== END 2024-04-05 15:25 | disposition home or self-care (01) ==
LOC: WOUND 15:24
PROVIDERS: PCP Family Medicine; Visit Provider Nurse Practitioner Family
DX: E11.621 Type 2 diabetes mellitus with foot ulcer (principal); L97.422 Non-pressure chronic ulcer of left heel and midfoot with fat layer exposed; M14.672 Charcot's joint, left ankle and foot; Z79.4 Long term (current) use of insulin
CPT/HCPCS: 11042

== ENCOUNTER 2024-04-05 15:58 | Observation (INO) | payer OTHER, SELFPAY ==
[2024-04-05 16:08] VITALS: BP 158/65; PULSE 80; RESP 16; TEMP 36.7; O2SAT 88; BMI 39.1
--- NOTE | 2024-04-05 17:00 | ED.GENADULT ---
HPI - General Adult General Date Seen: 04/05/24 Chief complaint: Diabetic Related Problem Stated complaint: High glucose-sent from WC Time Seen by Provider: 04/05/24 16:32 Source: patient, RN notes reviewed and old records reviewed Mode of arrival: ambulatory Limitations: no limitations History of Present Illness HPI narrative: Patient is a 63-year-old woman with underlying diabetes, insulin-dependent. She was discharged from the hospital several days ago after having had diabetic ketoacidosis. Discharge home on short-acting insulin with meals and a sliding scale. She says since leaving, most of the time her blood glucose monitor has been reading ?high . She says she has been taking her insulin and using her sliding scale though she is not sure exactly how much she takes when her monitor read high. [facility] for assessment of a chronic wound on her left heel which she and her wyhealck-ho-pdx who is with her say is doing reasonably well. She was talking to the wound clinic staff about her problems with her blood sugars and they recommended that she come to the ER. Otherwise, she denies any specific problems today, denies fevers or chills, chest pain, difficulty breathing, abdominal or back pain, urinary symptoms or upper respiratory symptoms. She does not smoke or drink. Related Data Home Medications ?Medication ?Instructions ?Recorded ?Confirmed amlodipine 2.5 mg tablet 2.5 mg PO BID 10/11/22 04/05/24 atorvastatin 20 mg tablet 20 mg PO HS 10/11/22 04/05/24 buprenorphine 5 mcg/hour weekly 1 patch transdermal Q7D 10/11/22 04/05/24 transdermal patch cetirizine 5 mg tablet 5 mg PO DAILY 10/11/22 04/05/24 cholecalciferol (vitamin D3) 50 50 mcg PO DAILY 10/11/22 04/05/24 mcg (2,000 unit) capsule duloxetine 60 mg capsule,delayed 60 mg PO DAILY 10/11/22 04/05/24 release metoprolol succinate 25 mg 25 mg PO DAILY 10/11/22 04/05/24 tablet,extended release 24 hr omeprazole 20 mg capsule,delayed 20 mg PO DAILY 10/11/22 04/05/24 release oxycodone 5 mg tablet 5 mg PO BID PRN 10/11/22 04/05/24 polyethylene glycol 3350 17 17 g PO DAILY PRN 10/11/22 04/05/24 gram/dose oral powder (Miralax) pregabalin 100 mg capsule 100 - 200 mg PO BID 10/11/22 04/05/24 pregabalin 50 mg capsule 50 mg PO HS 10/11/22 04/05/24 sennosides 8.6 mg-docusate sodium 2 tab PO BID PRN 10/11/22 04/05/24 50 mg tablet (Stool Softener-Stimulant Laxative) torsemide 20 mg tablet 40 mg PO DAILY 10/11/22 04/05/24 vitamin B12 2,500 mcg-folic acid 1 tab PO DAILY 10/11/22 04/05/24 400 mcg disintegrating tablet acetaminophen 650 mg 1,300 mg PO Q8H 12/19/22 04/05/24 tablet,extended release levothyroxine 125 mcg tablet 125 mcg PO DAILY 05/25/23 04/05/24 fluoxetine 10 mg capsule 10 mg PO DAILY 03/16/24 04/05/24 cyanocobalamin (vitamin B-12) 1,000 mcg PO DAILY 03/17/24 04/05/24 1,000 mcg tablet glucagon 3 mg/actuation nasal 3 mg intranasal DIRECTED PRN 03/17/24 04/05/24 spray (Baqsimi) naloxone 4 mg/actuation nasal 4 mg intranasal DIRECTED PRN 03/17/24 04/05/24 spray (Narcan) Previous Rx's ?Medication ?Instructions ?Recorded insulin glargine 100 unit/mL (3 5 unit (0.05 mL) subcut DAILY #15 04/02/24 mL) subcutaneous pen (Lantus mL Solostar U-100 Insulin) insulin lispro 100 unit/mL 1 sliding scale dose subcut 04/02/24 subcutaneous pen (Humalog KwikPen TIDWMEAL #15 mL (U-100) Insulin) insulin lispro 100 unit/mL 4 unit (0.04 mL) subcut TIDWMEAL 04/02/24 subcutaneous pen (Humalog KwikPen #4.5 mL (U-100) Insulin) Allergies Allergy/AdvReac Type Severity Reaction Status Date / Time ampicillin Allergy Mild Hives Verified 04/05/24 16:16 aspirin Allergy Unknown Verified 04/05/24 16:16 NSAIDS (Non-Steroidal Allergy Unknown Verified 04/05/24 16:16 Anti-Inflamma Review of Systems Status of ROS: Reports: 6 or more systems reviewed and unremarkable except as noted in History and below [facility] Medical History (Updated 04/05/24 @ 19:13 by Peterson Javed MD) Abnormal urinalysis ?R82.90 - Unspecified abnormal findings in urine (ICD-10) Nocturnal hypoglycemia ?E16.1 - Other hypoglycemia (ICD-10) Stage 4 chronic kidney disease ?N18.4 - Chronic kidney disease, stage 4 (severe) (ICD-10) Congestive heart failure (CHF) ?I50.9 - Heart failure, unspecified (ICD-10) Hypertension ?I10 - Essential (primary) hypertension (ICD-10) Diabetes type I ?E10.9 - Type 1 diabetes mellitus without complications (ICD-10) Hyperosmolar syndrome ?E87.0 - Hyperosmolality and hypernatremia (ICD-10) Sleep apnea ?G47.30 - Sleep apnea, unspecified (ICD-10) Ulnar neuropathy ?G56.20 - Lesion of ulnar nerve, unspecified upper limb (ICD-10) Hyperlipidemia ?E78.5 - Hyperlipidemia, unspecified (ICD-10) Morbid obesity ?E66.01 - Morbid (severe) obesity due to excess calories (ICD-10) GERD (gastroesophageal reflux disease) ?K21.9 - Gastro-esophageal reflux disease without esophagitis (ICD-10) 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 diabetic neuropathic arthropathy (ICD-10) Depressive disorder ?F32.A - Depression, unspecified (ICD-10) COPD (chronic obstructive pulmonary disease) ?J44.9 - Chronic obstructive pulmonary disease, unspecified (ICD-10) Chronic pain syndrome ?G89.4 - Chronic pain syndrome (ICD-10) Chronic kidney disease, stage 1 ?N18.1 - Chronic kidney disease, stage 1 (ICD-10) Carpal tunnel syndrome ?G56.00 - Carpal tunnel syndrome, unspecified upper limb (ICD-10) Diabetic retinopathy ?E11.319 - Type 2 diabetes mellitus with unspecified diabetic retinopathy without macular edema (ICD-10) Anemia of other chronic disease ?D63.8 - Anemia in other chronic diseases classified elsewhere (ICD-10) Acute respiratory failure ?J96.00 - Acute respiratory failure, unspecified whether with hypoxia or hypercapnia (ICD-10) Surgical History History of thyroidectomy ?E89.0 - Postprocedural hypothyroidism (ICD-10) History of hip replacement ?Z96.649 - Presence of unspecified artificial hip joint (ICD-10) History of gastric bypass ?Z98.84 - Bariatric surgery status (ICD-10) History of section ?Z98.891 - History of uterine scar from previous surgery (ICD-10) Hx of cataract removal with insertion of prosthetic lens ?Z98.49 - Cataract extraction status, unspecified eye (ICD-10) ?Z96.1 - Presence of intraocular lens (ICD-10) History of carpal tunnel release ?Z98.890 - Other specified postprocedural states (ICD-10) History of knee replacement procedure of right knee ?Z96.651 - Presence of right artificial knee joint (ICD-10) Family History Mother Diabetes Obesity Sleep apnea Brother Diabetes Obesity Sleep apnea Father Sleep apnea High blood pressure Social History Narrative: Full Code. Lives with son Mitul, who would be medical decision maker if needed. Also lives with sister. She does not smoke. She does not drink alcohol. What is your current living situation?: I presently have a place to live Problems where you live: no known problems Problems where you live details: no In the past 12 months, utilities in danger of being shut off: no In past 12 months, lack of transportation kept you from medical appts, meetings, work, or getting things needed for daily living: no In the past 12 mos, have been you worried that your food would run out before you had money to buy more?: never true In the past 12 mos, the food you bought just didn't last and you didn't have money to buy more?: never true Smoking Status: Never smoker Do you use any of these nicotine containing products: None Second hand tobacco smoke exposure: No How often do you have a drink containing alcohol: never How often do you have six or more drinks on one occasion: Never AUDIT-C Alcohol total score: 0 Non-prescribed substance use: denies use How often does anyone, including family, friends and others, physically hurt you: never How often does anyone, including family, friends and others, insult or talk down to you: never How often does anyone, including family, friends and others, threaten you with harm: never How often does anyone, including family, friends and others, scream or curse at you: never service: No Exam Narrative: Exam Narrative: Vital signs as noted above. In general, an alert, well-appearing patient. She is bright-eyed and conversant today, wearing makeup. Head: Normocephalic, atraumatic. Eyes: Pupils are equal reactive. Extraocular movements are full. Conjunctivae are normal. ENT: Mucous membranes are moist. Throat is normal. Neck: Supple without lymphadenopathy. Heart: Regular rate and rhythm. No murmur or rub. Lungs: Clear bilaterally. No increased work of breathing, crackles or wheezes. Abdomen: Soft and nontender. No organomegaly. Extremities: Well perfused. No edema. No calf tenderness. The wound on the left heel was dressed, I did not remove the dressing given that she just was at wound clinic. There is no surrounding erythema, no edema or tenderness in that leg. Neurologic: Patient is alert and oriented to person and place. Speech is fluent. Face is symmetric. Moves all extremities equally. Affect: Normal. Skin: Warm and dry. Well perfused. Const: Vital Signs, click to edit/add: Vital Signs - 24 hr 04/05/24 16:08 Temperature 98.1 F Pulse Rate [Right Pulse Oximeter] 80 Respiratory Rate 16 Blood Pressure [Ri ght Forearm] 158/65 H Pulse Oximetry 88 Oxygen Delivery Me thod Room Air Documenting provider has reviewed patient's vital signs: yes Course Course ED Course: Breath does smell ketotic, I would suspect that she is again in DKA. I have ordered a IV, L of LR, labs pending. EKG by my review shows a normal sinus rhythm, ventricular rate of 78. No acute ST segment changes, overall small voltages, no concerning T-waves. Labs actually do not support a diagnosis of DKA, her venous gas shows a normal bicarb and a normal pH. Metabolic panel is notable for a sodium of 134, normal potassium, a CO2 of 26, a gap of 8. BUN mildly elevated at 33 and creatinine is 2.2 which is fairly close to her baseline of 2. Her blood sugar was elevated at 348, lactate mildly elevated at 2.4. LFTs unremarkable, CRP 7.5. Difficult to interpret in the setting of known chronic wound. UA was notable for 3+ glucose, 1+ ketones, 10-25 red blood cells and 50-100 white blood cells. Looking through her records, she always seems to have significant number of white blood cells in her urine. A repeat glucose was 302 after fluids. She actually did not get any insulin while in the emergency department. Troponin was 0. I spoke with Dr. Javed about this patient. She is not in DKA at this time although she does have some ketones. She is hyperglycemic and seems to be having difficulty controlling her sugars at home, and I a am concerned that discharge will simply result in all of this getting worse to the point that she is in DKA. Dr. Javed is in agreement that admitting to the hospital to trying get her blood sugars under better control, make sure she is adequately hydrated and trend labs make sense. Decision as to whether not to treat for possible urinary tract infection will be up to him. Vital Signs Vital signs: Initial Vital Signs Temperature 98.1 F 04/05/24 16:08 Temperature Source Temporal Artery Scan 04/05/24 16:08 Pulse Rate 80 04/05/24 16:08 Respiratory Rate 16 04/05/24 16:08 Blood Pressure 158/65 H 04/05/24 16:08 Blood Pressure Mean 96 04/05/24 16:08 Blood Pressure Position Sitting 04/05/24 16:08 Pulse Oximetry 88 04/05/24 16:08 Oxygen Delivery Method Room Air 04/05/24 16:08 Vital Signs Temperature 98.1 F 04/05/24 16:08 Pulse Rate 80 04/05/24 16:08 Respiratory Rate 16 04/05/24 16:08 Blood Pressure 158/65 H 04/05/24 16:08 Pulse Oximetry 88 04/05/24 16:08 Oxygen Delivery Method Room Air 04/05/24 16:08 Temperature 98.1 F 04/05/24 16:08 Pulse Rate 80 04/05/24 16:08 Respiratory Rate 16 04/05/24 16:08 Blood Pressure 158/65 H 04/05/24 16:08 Pulse Oximetry 88 04/05/24 16:08 Oxygen Delivery Method Room Air 04/05/24 16:08 Medications Administered Medications: Discontinued Medications Generic Name Dose Route Start Last Admin Trade Name Jeff PRN Reason Stop Dose Admin Lactated Ringer's 1,000 mls @ 1,000 mls/hr 04/05/24 16:48 04/05/24 18:10 Lactated Ringers 1000 Ml IV 04/05/24 17:47 1,000 mls/hr .Q1H ONE Administration Medical Decision Making Lab Data Labs: Lab Results 04/05/24 04/05/24 04/05/24 Range/Units 16:49 17:25 18:04 WBC 8.97 (4.50-11.00) K/uL RBC 3.37 L (4.00-5.20) m/uL Hgb 9.7 L (12.0-16.0) gm/dL Hct 30.9 L (33.0-51.0) % MCV 92 (80-100) fL MCH 29 (26-34) pg MCHC 31 L (32-36) gm/dL RDW Coeff of Stefan 15.2 (11.5-15.5) % Plt Count 274 (140-440) K/uL Neut % (Auto) 78.2 H (42.0-72.0) % Lymph % (Auto) 9.1 L (20-44) % [place] % (Auto) 9.7 (0.0-11.0) % Eos % (Auto) 2.7 (0.0-7.0) % Baso % (Auto) 0.2 (0.0-3.0) % Neut # (Auto) 7.00 (1.7-7.0) K/uL Lymph # (Auto) 0.80 L (0.90-2.90) K/uL [place] # (Auto) 0.90 (0.00-0.90) K/UL Eos # (Auto) 0.24 (0.00-0.50) K/uL Baso # (Auto) 0.02 (0.00-0.30) K/uL Abs Immat Gran (auto) 0.01 (0.00-0.30) K/uL Imm/Tot Granulo (auto) 0.1 % VBG pH 7.356 (7.32-7.43) VBG pCO2 46 (40-50) mmHG VBG pO2 34.1 (25-47) mmHG VBG HCO3 26 (21-28) mmol/L Sodium 134 L (135-149) mmol/L Potassium 4.6 (3.6-5.1) mmol/L Chloride 100 (96-114) mmol/L Carbon Dioxide 26 (20-32) mmol/L Anion Gap 8 (7-15) mEq/L BUN 33 H (7-30) mg/dL Creatinine 2.2 H (0.5-1.5) mg/dL Estimated Creat Clear 19.04 Estimated GFR 25 ml/min Glucose 348 H (60-115) mg/dL Lactate 2.4 H (0.5-1.9) mmol/L Calcium 9.1 (8.4-10.6) mg/dL Total Bilirubin 0.5 (0.1-1.5) mg/dL Direct Bilirubin 0.4 (0.0-0.5) mg/dL AST 16 (12-35) U/L ALT 15 (4-35) U/L Alkaline Phosphatase 150 (40-150) U/L C-Reactive Protein 7.5 H (0.5-1.0) mg/dL Total Protein 7.2 (6.0-8.3) g/dL Albumin 3.8 (3.3-5.0) g/dL Urine Color Yellow (Yellow) Urine Appearance Slightly Cloudy A (Clear) Urine pH 5.5 (5.0-8.5) Ur Specific [place] 1.015 (1.000-1.030) Urine Protein 2+ A (Negative) Urine Glucose (UA) 3+ A (Negative) Urine Ketones 1+ A (Negative) Urine Blood 3+ A (Negative) Urine Nitrite Negative (Negative) Urine Bilirubin 2+ A (Negative) Urine Urobilinogen 0.2 (0.2-1.0) Ur Leukocyte Esterase 1+ A (Negative) Urine RBC 10-25 A (0-2) Urine WBC 50-100 A (0-5) Ur Squamous Epith Cells Few (None-Few) Urine Bacteria Few A (None) Urine Yeast Moderate A (None) POC Glucose (60-115) mg/dl POC Troponin I 0.00 L (0.01-0.04) ng/ml 04/05/24 Range/Units 18:48 WBC (4.50-11.00) K/uL RBC (4.00-5.20) m/uL Hgb (12.0-16.0) gm/dL Hct (33.0-51.0) % MCV (80-100) fL MCH (26-34) pg MCHC (32-36) gm/dL RDW Coeff of Stefan (11.5-15.5) % Plt Count (140-440) K/uL Neut % (Auto) (42.0-72.0) % Lymph % (Auto) (20-44) % [place] % (Auto) (0.0-11.0) % Eos % (Auto) (0.0-7.0) % Baso % (Auto) (0.0-3.0) % Neut # (Auto) (1.7-7.0) K/uL Lymph # (Auto) (0.90-2.90) K/uL [place] # (Auto) (0.00-0.90) K/UL Eos # (Auto) (0.00-0.50) K/uL Baso # (Auto) (0.00-0.30) K/uL Abs Immat Gran (auto) (0.00-0.30) K/uL Imm/Tot Granulo (auto) % VBG pH (7.32-7.43) VBG pCO2 (40-50) mmHG VBG pO2 (25-47) mmHG VBG HCO3 (21-28) mmol/L Sodium (135-149) mmol/L Potassium (3.6-5.1) mmol/L Chloride (96-114) mmol/L Carbon Dioxide (20-32) mmol/L Anion Gap (7-15) mEq/L BUN (7-30) mg/dL Creatinine (0.5-1.5) mg/dL Estimated Creat Clear Estimated GFR ml/min Glucose (60-115) mg/dL Lactate (0.5-1.9) mmol/L Calcium (8.4-10.6) mg/dL Total Bilirubin (0.1-1.5) mg/dL Direct Bilirubin (0.0-0.5) mg/dL AST (12-35) U/L ALT (4-35) U/L Alkaline Phosphatase (40-150) U/L C-Reactive Protein (0.5-1.0) mg/dL Total Protein (6.0-8.3) g/dL Albumin (3.3-5.0) g/dL Urine Color (Yellow) Urine Appearance (Clear) Urine pH (5.0-8.5) Ur Specific [place] (1.000-1.030) Urine Protein (Negative) Urine Glucose (UA) (Negative) Urine Ketones (Negative) Urine Blood (Negative) Urine Nitrite (Negative) Urine Bilirubin (Negative) Urine Urobilinogen (0.2-1.0) Ur Leukocyte Esterase (Negative) Urine RBC (0-2) Urine WBC (0-5) Ur Squamous Epith Cells (None-Few) Urine Bacteria (None) Urine Yeast (None) POC Glucose 302 H (60-115) mg/dl POC Troponin I (0.01-0.04) ng/ml Discharge Plan Discharge Patient Disposition: Admitted As Observation
--- OUTSIDE RECORDS SUMMARY | 2024-04-05 17:08 | XMS_ITS | Clinical Summary ---
Author Organization [facility] [place] [place] Address [address] [facility] [place] [address] Phone Care Team Providers Care Agency Development Manager Name Role Phone Barbara Valentin DO Primary Care Provider [phone] Allergies Active Allergy Reactions Criticality Noted Date [...] One Pack) 3 MG/DOSE powder Inhale 1 [place] into affected nostril(s) each time if needed [...] Team Description 02/01/2024 Telephone [facility] [place] [address] [facility] [address] [place] [address] Gabriel Hicks MD 01/23/2024 Documentation Only [facility] [place] [address] [facility] [address] [place] [address] Ronnell Kirby 01/23/2024 Office Communication [facility] [place] [address] [facility] [address] [place] [phone] Ronnell Kirby from Last 3 Months Immunizations [...] LAB BLOOD ORDERAB LES Performing Organization Address City/[facility]/ZIP Co de Phone Number [facility] * [...] BESSY from Last 3 Months Care Teams Agency Development Manager Relationship Specialty Start Date End Date Barbara Valentin DO [address] [place] [address] PCP - General Family Medicine 09/22/23
--- OUTSIDE RECORDS SUMMARY | 2024-04-05 17:08 | XMS_ITS | Encounter Summary ---
Author Organization [facility] [place] Address [address] [place] [address] Care Team Providers Care Direct Chill Caster Name Role Phone Barbara Valentin DO Primary Care Provider [phone] Encounter Details Date Type Department Care Team (Late st Contact Info) Description 01/23/2024 Documentation Only [facility] [place] [address] [place] [address] Ronnell Kirby [address] [place] [address] Social History Tobacco Use Types [...] ORDERAB LES Performing Organization Address [facility]/ZIP Co de Phone Number [facility] * [...] ORDERAB LES Performing Organization Address [facility] Co de Phone Number [facility] * (ABNORMAL) Creatine (01/15/2024) Creatine, Serum 1.71(H) [facility] GFR Calculated 34(L) [facility] Blood (Blood, Venous) 01/15/2024 Historical Provider MD LAB BLOOD ORDERAB LES Performing Organization Address [facility] Co de Phone Number [facility] * (ABNORMAL) Hemoglobin (01/15/2024) Hemoglobin 8.4(L) g/dL [facility] MCV 91.0 [facility] Blood (Blood, Venous) 01/15/2024 Historical Provider MD LAB BLOOD ORDERAB LES Performing Organization Address [facility] Co de Phone Number [facility] [...] ORDERAB LES Performing Organization Address [facility] Co de Phone Number [facility] [...] ORDERAB LES Performing Organization Address [facility] Co de Phone Number [facility] [...] ORDERAB LES Performing Organization Address [facility] de Phone Number [facility] * (ABNORMAL) [...] ORDERAB LES Performing Organization Address [facility] Co de Phone Number [facility] [...] on filedocumented in this encounter Care Teams Direct Chill Caster Relationship Specialty Start Date End Date Barbara Valentin DO [address] [place] [address] PCP - General Family Medicine 09/22/23 documented as of this encounter
--- OUTSIDE RECORDS SUMMARY | 2024-04-05 17:08 | XMS_ITS | Encounter Summary ---
Author Organization [facility] [place] Address [address] [place] [address] Care Team Providers Care Switchman Name Role Phone Barbara Valentin DO Primary Care Provider [phone] Encounter Details Date Type Department Care Team (Late st Contact Info) Description 01/23/2024 Office Communication [facility] [place] [address] [place] [address] Ronnell Kirby [address] [place] [address] Social History Tobacco Use Types [...] on filedocumented in this encounter Care Teams Switchman Relationship Specialty Start Date End Date Barbara Valentin DO Roxy Calderon [facility] [address] PCP - General Family Medicine 09/22/23 documented as of this encounter
--- OUTSIDE RECORDS SUMMARY | 2024-04-05 17:08 | XMS_ITS | Encounter Summary ---
Author Organization [facility] [place] Address [address] [place] [address] Care Team Providers Care Prompt Care Rn Name Role Phone Barbara Valentin DO Primary Care Provider Encounter Details Date Type Department Care Team (Late st Contact Info) Description 02/01/2024 Telephone [facility] [place] [address] [place] [address] Gabriel Hicks MD [address] [place] [address] Social History Tobacco Use Types [...] on filedocumented in this encounter Care Teams Prompt Care Rn Relationship Specialty Start Date End Date Barbara Valentin DO [address] [place] [address] PCP - General Family Medicine 09/22/23 documented as of this encounter
--- OUTSIDE RECORDS SUMMARY | 2024-04-05 17:09 | XMS_ITS | Encounter Summary ---
Author Organization [facility] [place] Address [address] [place] [address] Care Team Providers Care Senior Maintenance Machinist Name Role Phone Barbara Valentin DO Primary Care Provider [phone] Encounter Details Date Type Department Care Team (Late st Contact Info) Description 09/22/2023 Documentation Only [facility] [place] [address] [facility] [address] [place] [address] No, Pcp Social History Tobacco [...] filedocumented in this encounter Care Teams Senior Maintenance Machinist Relationship Specialty Start Date End Date Barbara Valentin DO Roxy Calderon [facility] [place] [address] PCP - General Family Medicine 09/22/23 documented as of this encounter
--- OUTSIDE RECORDS SUMMARY | 2024-04-05 17:09 | XMS_ITS | Clinical Summary ---
Author Organization [employer] Address [place], [place] [address] Care Team Providers Care Supervisor Fine Grading Name Role Phone Julio Ibrahim MD Unavailable Chuy Doss MD Unavailable Markel Strong MD Unavailable Nkiolai Ibarra MD Unavailable [phone] Barbara Valentin Patricia DO Primary Care Provider [phone] Allergies Active Allergy Reactions Criticality Noted Date [...] mellitus at risk of hypoglycemia Inhale 1 [place] into affected nostril(s) each time if needed for Severe Hypoglycemia. Roll on side and call 911 after administration. 2 Each 12/25/19 22 Active fluticasone (50 mcg per actuation) nasal solution (FLONASE)Indicati ons:Nasal congestion Inhale 1 [place] into affected nostril(s) once daily. Inhale 1 [place] in the nostril(s) once daily. 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 1 Each 05/19/20 Active blood-glucose [...] be used to read blood sugars per marriage and family social worker's directions. 6 Each 3 09/06/19 24 [...] Chronic, continuous use of opioids Inhale 1 [place] into affected nostril(s) each time if needed [...] agreement signed - 10/07/23 10/07/2023 Overview (10/07/2023): [facility] Noemí Dennis .................... 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 Hospitalized with ketoacidosis [...] post total right knee replacement 01/02/2015 06/10/2017 residential (current) use of anticoagulants 11/27/2013 12/28/2013 Anticoagulation [...] Type Department Care Team Description 04/04/2024 Refill [facility] [address] [place] [address] Shaqra Barbara Patricia, DO Refill Request (Amlodipine, Omeprazole) 03/27/2024 Telephone [facility] [address] [place] [address] Saúlqra Barbara Patricia, DO Questions 03/16/2024 Refill [facility] [address] [facility] [address] [place] [address] Toshia Hooks NP Refill Request 03/14/2024 10:30 AM CDT Home Care Visit [facility] [address] [place] [phone] Geneva Sanchez, RN SN - OASIS DISCHARGE 03/12/2024 Refill [facility] [address] [place] [address] Saúlqra Barbara Patricia, DO Refill Request (Pregabalin, Fluoxetine, Duloxetine) 03/06/2024 10:00 AM CDT Home Care Visit [facility] [address] [place] [address] Geneva Sanchez, RN SN - HOME VISIT 03/06/2024 9:15 AM CDT Home Care Visit [facility] [address] [place] [address] Alex Contreras AGRICULTURAL EXTENSION SPECIALIST - HOME VISIT 03/03/2024 Home Care Visit [facility] [address] [place] [phone] Nitza Riojas LISW CARE COORDINATION 02/28/2024 2:00 PM CDT Home Care Visit [facility] [address] [place] [phone] Shania Elaine, RN SN - HOME VISIT 02/28/2024 10:45 AM CDT Home Care Visit [facility] [address] [place] [phone] Fabiola Mathis AGRICULTURAL EXTENSION SPECIALIST - HOME VISIT 02/25/2024 Home Care Visit [facility] [address] [place] [phone] Nitza Riojas LISW CARE COORDINATION 02/22/2024 3:00 PM CDT Home Care Visit [facility] [address] [place] [phone] Trini Hitchcock, LOS SN - HOME VISIT 02/22/2024 Home Care Visit [facility] [address] [place] [phone] Dar Phillips OT OT - DISCIPLINE DISCHARGE 02/21/2024 9:45 AM CDT Home Care Visit [facility] [address] [place] [phone] Alex Contreras AGRICULTURAL EXTENSION SPECIALIST - HOME VISIT 02/20/2024 Home Care Visit [address] [phone] Nitza Riojas LISW IN PROCESSING INSTRUCTOR - INITIAL ASSESSMENT 02/16/2024 Refill [facility] [address] [place] [address] Toshia Hooks NP Refill Request (oxyCODONE (ROXICODONE) 5 mg immediate release tablet ) 02/15/2024 3:45 PM CDT Home Care Visit [facility] [address] [place] [phone] Coleman Greene, PT PT - DISCIPLINE DISCHARGE 02/15/2024 11:00 AM CDT Home Care Visit [facility] [address] [place] [address] Geneva Sanchez, LOS SN - HOME VISIT 02/14/2024 12:00 PM CDT Home Care Visit [facility] [address] [place] [address] Joi Moreno, VARELA OT - HOME VISIT 02/14/2024 8:15 AM CDT Home Care Visit [facility] [address] [place] [phone] Fabiola Mathis AGRICULTURAL EXTENSION SPECIALIST - HOME VISIT 02/10/2024 3:30 PM CDT Home Care Visit [facility] [address] [place] [address] Joi Moreno, VARELA OT - HOME VISIT 02/10/2024 Home Care Visit [facility] [address] [place] [phone] Nitza Riojas LISW IN PROCESSING INSTRUCTOR - CASE COMMUNICATION 02/09/2024 Refill [facility] [address] [place] [address] Barbara Valentin DO Refill Request (Duloxetine) 02/08/2024 3:00 PM CDT Home Care Visit [facility] [address] [place] [phone] Veda Resendiz RN SN - WOUND/OSTOMY CHART CONSULT 02/08/2024 9:00 AM CDT Home Care Visit [facility] [address] [place] [phone] Geneva Sanchez RN SN - HOME VISIT 02/08/2024 Telephone [facility] [address] [place] [address] Barbara Valentin DO Pharmacist Medication Management (MEDICATION CHANGE) 02/08/2024 Telephone [facility] [address], [place] [address] Geneva Sanchez, metal rolling mill operator List Update 02/07/2024 4:00 PM CDT Home Care Visit [facility] [address] [place] [address] Joi Moreno VARELA OT - HOME VISIT 02/07/2024 9:30 AM CDT Home Care Visit [facility] [address] [place] [address] Kendal Serna, PT PT - HOME VISIT 02/07/2024 Telephone [facility] [address] [place] [address] Saúlqra Barbara Patricia, DO Refill Request (Insulin lispro pens) 02/04/2024 Refill [facility] [address] [place] [address] Shaqra, Barbara Patricia, DO Refill Request (Insulin Lispro) 02/03/2024 9:00 AM CDT Home Care Visit [facility] [address] [place] [address] Joi Moreno VARELA OT - HOME VISIT 02/02/2024 11:00 AM CDT Home Care Visit [facility] [address] [place] [address] Kendal Serna, PT PT - HOME VISIT 02/01/2024 4:00 PM CDT Home Care Visit [facility] [address] [place] [address] Joi Moreno VARELA OT - HOME VISIT 01/31/2024 9:30 AM CDT Home Care Visit [facility] [address] [place] [address] Fabiola Mathis AGRICULTURAL EXTENSION SPECIALIST - HOME VISIT 01/31/2024 Home Care Visit [facility] [address] [place] [phone] Oumou Burns, LOS CARE COORDINATION 01/31/2024 Home Care Visit [facility] [address] [place] [phone] Oumou Burns, LOS CARE COORDINATION 01/30/2024 10:45 AM CDT Home Care Visit [facility] [address] [place] [phone] Kendal Serna, PT PT - HOME VISIT 01/30/2024 9:00 AM CDT Home Care Visit [facility] [address] [place] [phone] Geneva Sanchez, LOS SN - INITIAL ASSESSMENT 01/25/2024 1:30 PM CDT Home Care Visit [facility] [address] [place] [phone] Coleman Greene, PT PT - HOME VISIT 01/25/2024 Travel 01/24/2024 1:00 PM CDT Home Care Visit [facility] [address] [place] [phone] Dar Phillips, OT OT - INITIAL ASSESSMENT 01/24/2024 9:30 AM CDT Home Care Visit [facility] [address] [place] [phone] Fabiola Mathis AGRICULTURAL EXTENSION SPECIALIST - HOME VISIT 01/24/2024 Home Care Visit [facility] [address] [place] [phone] Narcisa Atkinson, RN CARE COORDINATION 01/23/2024 Home Care Visit [facility] [address] [place] [phone] Narcisa Atkinson, RN CARE COORDINATION 01/20/2024 Refill [facility] [address] [place] [address] Toshia Hooks, GISEL Refill Request 01/18/2024 1:45 PM CDT Home Care Visit [facility] [address] [place] [phone] Kendal Serna, PT PT - OASIS START OF CARE 01/18/2024 10:30 AM CDT Phone Office Visit [facility] [address] [place] [address] Nikolai Ibarra MD 01/18/2024 Plan of Care Documentation [facility] [address] [place] [address] 01/18/2024 Patient Outreach [facility] [address] [place] [address] Maria R Ho, RN Primary RN Care Management; Hospital F/U (Lace 44) 01/18/2024 Travel 01/12/2024 9:13 PM CDT - 01/17/2024 5:23 PM CDT Hospital Encounter [facility] [address] [place] [address] Megan, MD Nedra Valverde, DO Chente Honeycutt, MD Dusty Majnarrez, MD Ricky Alston, Helder Hoover MD [facility] Hospitalists Of Opioid dependence, uncomplicated (HC) (Primary Dx); Nasal congestion; Chronic pain syndrome; Diabetic ketoacidosis without coma associated with type 1 diabetes mellitus (HC); 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, macular edema presence unspecified, unspecified laterality, unspecified proliferative retinopathy type (HC); Heel ulcer, right, with unspecified severity (HC) Discharge Disposition: [facility] 01/09/2024 Refill [facility] [address] [place] [address] Barbara Valentin DO Refill Request (Fluoxetine) 01/09/2024 Refill [facility] [address] [place] [address] Elian Humphrey MD Refill Request (Torsemide) 01/06/2024 4:00 PM CDT Office Visit [facility] [address] [place] [address] Toshia Hooks NP Follow Up; Pain (Multi source; was told by her Solar Site Assessment Specialist she can ot use OTC Voltaren gel., [...] Description 04/06/2024 11:25 AM CDT Office Visit [facility] [address] [place] [address] Barbara Valentin, DO [address] [place] [address] 04/13/2024 11:00 AM CDT Office Visit [facility] [address] [place] [address] Barbara Valentin, DO [address] [place] [address] 05/04/2024 3:00 PM CDT Office Visit [facility] [address] [place] [address] Barbara Valentin, DO [address] [place] [address] 05/04/2024 3:30 PM CDT Phone Office Visit [facility] [address] [place], [place] [phone] Nikolai Ibarra MD [address] [place] [address] Health Maintenance Due Date Last Done Comments [...] 03/18/2020, Additional history exists Fecal testing sDNA-FIT ([place] guard) for age 45-75 11/10/2024 11/10/2021 Pneumococcal series for age 6-64 (3 of 3 - PPSV23 or PCV20) 2026 08/17/2016, 08/14/2014, 07/04/2005, Additional history exists Lipids for age 45-75 04/28/2027 04/28/2022, 08/17/2019, 08/31/2018, Additional history exists Tdap Completed 08/25/2010 HIV for age 15-65 Completed 07/21/2015 Hepatitis C screening for ag e 18-79 Completed 02/16/2018 Medical Devices Implanted Type Area Clearing Tub Worker Device Identifier Shelf Expiration Date Model / Serial / Lot [id number] 2x12mm [[id number]] Implanted:Qty: 1 on 08/08/2008 at [facility] Explanted:at [facility] (Quantity not on file) mVisum [id number]# / [id number] / Stem Compnt Primary 8mm Mini - [id number] Implanted:Qty: 1 on 03/17/2011 at [facility] Right: Shoulder BIOMET [id number]# / / [id number] Head Hum Bio-Mod [id number] - [id number] Implanted:Qty: 1 on 03/17/2011 at [facility] Right: Shoulder BIOMET [id number]# / / [id number] Base Glenoid Hybrid 4mm Sm - [id number] Implanted:Qty: 1 on 03/17/2011 at [facility] Right: Shoulder BIOMET 186920# / / [id number] Cmnt 1/2 Dosehowmedica - [id number] Implanted:Qty: 1 on 03/17/2011 at [facility] Right: Shoulder [employer] 6188-1-01 0# / / [id number] Post Glenoid Hybrid Regenerex - [id number] Implanted:Qty: 1 on 03/17/2011 at [facility] Right: Shoulder BIOMET [id number] # / / [id number] Head Humeral 44x15 Co Cr Biomodular - [id number] Implanted:Qty: 1 on 07/12/2012 at [facility] Left: Shoulder BIOMET [id number]# / / [id number] Shoulder Stem Implanted:Qty: 1 on 07/12/2012 at [facility] Left: Shoulder [id number] / / [id number] Description:SHOULDER STEM Cmnt Bone 1/2 Dosehowmedica - [id number] Implanted:Qty: 1 on 07/12/2012 at [facility] Left: Shoulder [employer] 6188-1-01 0# / / [id number] Post Glenoid Hybrid Regenerex - [id number] Implanted:Qty: 1 on 07/12/2012 at [facility] Left: Shoulder BIOMET [id number] # / / [id number] Base Glenoid Hybrid 4mm Sm - [id number] Implanted:Qty: 1 on 07/12/2012 at [facility] Left: Shoulder BIOMET [id number]# / / [id number] Procedures Procedure Name Priority Date/Time Associated Diagnosis [...] HIV 1/2 Add On 07/21/2015 9:40 AM MEDICAL INVESTIGATOR CABLE TESTERS HELPER THIN PREP PAP SCREEN IMAGED Routine 08/17/2012 4:02 PM MEDICAL INVESTIGATOR Screening for malignant neoplasm of the cervix [...] - 100 mg/dL 01/17/2024 11:35 AM CDT [facility] Blood BLOOD SPECIMEN / Unknown 01/17/2024 11:27 AM CDT 01/17/2024 11:35 AM CDT Helder García MD CHEMISTRY [facility] [employer]ience[employer]fm [facility] [address] [place] [address], * (ABNORMAL) CREATININE (01/17/2024 8:20 AM CDT) Only the most recent of3 resultswithin the time period is included. eGFR 47(L) >90 mL/min/1.7 3m2 01/17/2024 9:06 AM CDT [facility] Comment:As of 2021, eG FR is calculated by the CKD-EPI creatinine equation without race adjustment. ??eGFR can be influenced by muscle mass, exercise, and diet. ??The reported eGFR is an estimation only and is only applicable if the renal function is stable. CREATININE 1.28(H) 0.50 - 0.90 mg/dL 01/17/2024 9:06 AM CDT [facility] Blood BLOOD SPECIMEN / Unknown Non-Lab Venipuncture / Unknown 01/17/2024 8:20 AM CDT 01/17/2024 8:26 AM CDT Helder García MD CHEMISTRY Performing Organization Address [facility] Co de Phone Number [facility] [address] [place] [address], * PHOSPHORUS (01/17/2024 8:20 AM CDT) Only the most recent of5 resultswithin the time period is included. PHOSPHORUS 2.6 2.5 - 4.5 mg/dL 01/17/2024 9:06 AM CDT [facility] Blood BLOOD SPECIMEN / Unknown Non-Lab Venipuncture / Unknown 01/17/2024 8:20 AM CDT 01/17/2024 8:26 AM CDT Sarah Betancourt RN CHEMISTRY Performing Organization Address [facility] de Phone Number [facility] [address] [place] [address], * (ABNORMAL) BASIC METABOLIC PANEL (01/17/2024 8:20 AM CDT) Only the most recent of5 resultswithin the time period is included. SODIUM 139 136 - 145 mmol/L 01/17/2024 12:35 PM CDT [facility] POTASSIUM 3.9 3.5 - 5.1 mmol/L 01/17/2024 12:35 PM CDT [facility] CHLORIDE 103 98 - 107 mmol/L 01/17/2024 12:35 PM CDT [facility] CO2,TOTAL 24 22 - 29 mmol/L 01/17/2024 12:35 PM CDT [facility] ANION GAP 12 5 - 18 01/17/2024 12:35 PM CDT [facility] GLUCOSE 162(H) 70 - 99 mg/dL 01/17/2024 12:35 PM CDT [facility] CALCIUM 8.7(L) 8.8 - 10.2 mg/dL 01/17/2024 12:35 PM CDT [facility] BUN 17 8 - 23 mg/dL 01/17/2024 12:35 PM CDT [facility] CREATININE 1.31(H) 0.50 - 0.90 mg/dL 01/17/2024 12:35 PM CDT [facility] BUN/CREAT RATIO 13 10 - 20 12:35 PM CDT [facility] eGFR 46(L) >90 mL/min/1.7 3m2 01/17/2024 12:35 PM CDT [facility] Comment: As of 2021, [...] [facility] [address] [place] [address], * CLOSTRIDIOIDES DIFFICILE TOXIN PCR (01/16/2024 12:27 PM CDT) CLOSTRIDIUM DIFFICILE PCR Negative 01/16/2024 2:18 PM CDT [facility] PRESUMPTIVE NAP1 STRAIN Negative 01/16/2024 2:18 PM CDT [facility] Stool STOOL SPECIMEN / Unknown Non-Blood / Unknown 01/16/2024 12:27 PM CDT 01/16/2024 12:51 PM CDT Narrative [facility] - 01/16/2024 2:18 PM CDT The NAP1 (027 or BI) strain is a hypervirulent strain. Detection may be useful for epidemiological purposes. Helder García MD MICROBIOLOGY Performing Organization Address [facility] Co de Phone Number [facility] [address] [place] [address], * SCAN CORRESP-EKG RESULTS (01/16/2024 9:07 AM [...] Fabrizio Montano MD HEMATOLOGY Performing Organization Address City/[facility]/ZIP Co de Phone Number [facility] [address] [place] [id number], * VANCOMYCIN (01/16/2024 6:30 AM CDT) Only the most recent of3 resultswithin the time period is included. VANCOMYCIN 13.0 ug/mL 01/16/2024 7:42 AM CDT [facility] Comment:No Reference Range D efined. DATE OF LAST DOSE,RANDOM Not Given 01/16/2024 7:42 AM CDT [facility] TIME OF LAST DOSE,RANDOM Not Given 01/16/2024 7:42 AM CDT [facility] Blood BLOOD SPECIMEN / Unknown Venipuncture / Unknown 01/16/2024 6:30 AM CDT 01/16/2024 6:58 AM CDT Barbara Holcomb NP CHEMISTRY Performing Organization Address [facility] Co de Phone Number [facility] [address] [place] [address], * (ABNORMAL) PLATELET COUNT (01/15/2024 6:02 AM CDT) PLATELET COUNT 166 140 - 440 thou/cu mm 01/15/2024 6:44 AM CDT [facility] MPV 11.2(H) 6.5 - 11.0 fL 01/15/2024 6:44 AM CDT [facility] Blood BLOOD SPECIMEN / Unknown Venipuncture / Unknown 01/15/2024 6:02 AM CDT 01/15/2024 6:26 AM CDT Fabrizio Montano MD HEMATOLOGY Performing Organization Address City/[facility]/ZIP Co de Phone Number [facility] [address] [place] [address], * WHITE BLOOD COUNT (01/15/2024 6:02 AM CDT) WHITE BLOOD COUNT 4.9 4.5 - 11.0 thou/cu mm 01/15/2024 6:44 AM CDT [facility] NRBC 0.0 % 01/15/2024 6:44 AM CDT [facility] ABS NRBC 0.0 thou /cu mm 01/15/2024 6:44 AM CDT [facility] Blood BLOOD SPECIMEN / Unknown Venipuncture / Unknown 01/15/2024 6:02 AM CDT 01/15/2024 6:26 AM CDT Fabrizio Montano MD HEMATOLOGY Performing Organization Address [facility] Co de Phone Number [facility] [address] [place] [address], [place] * Sodium AM (01/15/2024 6:02 AM CDT) SODIUM 142 136 - 145 mmol/L 01/15/2024 7:13 AM CDT [facility] Blood BLOOD SPECIMEN / Unknown Venipuncture / Unknown 01/15/2024 6:02 AM CDT 01/15/2024 6:27 AM CDT Fabrizio Montano MD CHEMISTRY Performing Organization Address [facility] Phone Number [facility] [address] [place] [address], [place] * Potassium AM (01/15/2024 6:02 AM CDT) Only the most recent of3 resultswithin the time period is included. POTASSIUM 4.4 3.5 - 5.1 mmol/L 01/15/2024 7:13 AM CDT [facility] Blood BLOOD SPECIMEN / Unknown Venipuncture / Unknown 01/15/2024 6:02 AM CDT 01/15/2024 6:27 AM CDT Fabrizio Montano MD CHEMISTRY Performing Organization Address [facility] Co de Phone Number [facility] [address] [place] [address], [place] * SCAN-CARDIAC STRIP (01/14/2024 7:07 AM CDT) Scanner OTHER * (ABNORMAL) CBC W PLT NO DIFF (01/14/2024 5:28 AM CDT) WHITE BLOOD COUNT 8.5 4.5 - 11.0 thou/cu mm 01/14/2024 6:33 AM CDT [facility] RED BLOOD COUNT 3.04(L) 4.00 - 5.20 mil/cu mm 01/14/2024 6:33 AM CDT [facility] HEMOGLOBIN 8.9(L) 12.0 - 16.0 g/dL 01/14/2024 6:33 AM T [facility] HEMATOCRIT 27.5(L) 33.0 - 51.0 % 01/14/2024 6:33 AM CDT [facility] MCV 91 80 - 100 fL 01/14/2024 6:33 AM CDT [facility] MCH 29.3 26.0 - 34.0 pg 01/14/2024 6:33 AM CDT [facility] MCHC 32.4 32.0 - 36.0 g/dL 01/14/2024 6:33 AM T [facility] RDW 14.4 11.5 - 15.5 % 01/14/2024 6:33 AM CDT [facility] PLATELET COUNT 198 140 - 440 thou/cu mm 01/14/2024 6:33 AM T [facility] MPV 11.4(H) 6.5 - 11.0 fL 01/14/2024 6:33 AM CDT [facility] NRBC 0.0 % 01/14/2024 6:33 AM T [facility] ABS NRBC 0.0 thou /cu mm 01/14/2024 6:33 AM T [facility] Blood BLOOD SPECIMEN / Unknown Non-Lab Venipuncture / Unknown 01/14/2024 5:28 AM CDT 01/14/2024 6:31 AM CDT Barbara Holcomb WHOLESALE MANAGER HEMATOLOGY [facility] [address] [place] [address], * (ABNORMAL) CALCIUM IONIZED HOSPITAL DRAW ONLY (01/14/2024 5:28 AM CDT) Only the most recent of3 resultswithin the time period is included. Pathologist [facility] [place] CALCIUM,IONIZE D 1.30(H) 1.15 - 1.27 mmol/L 01/14/2024 6:03 AM CDT [facility] Blood BLOOD SPECIMEN / Unknown Non-Lab Venipuncture / Unknown 01/14/2024 5:28 AM CDT 01/14/2024 5:49 AM CDT Grace Eldridge MD CHEMISTRY [facility] [address] [place] [address], * ECHO TTE COMPLETE W CONTRAST (01/13/2024 3:56 PM CDT) Pathologist [facility] [place] AORTIC VALVE MEAN PG 7 mmHg EJECTION FRACTION 64 % LVEDD 4.1 cm EJECTION FRACTION 60 - 65% Anatomical Region Laterality Modality Ultrasound 01/13/2024 2:53 PM CDT Narrative 01/13/2024 4:39 PM CDT ECHOCARDIOGRAM MIKYALA KUHN ? Accession#: ?? [id number] : ?1960 63 years Study Date: ?? 01/13/2024 2:53:14 PM Gender: F ?BP: ? 114/44 mmHg Height: 152.00 cm ?BSA: ?1.93 m? ? ? Weight: 98.00 kg ? Tech: ? KBA ? Referring MD: BARBARA HOLCOMB Site: ? [facility] Reading Location: ANW IP Patient Location: [...] diluted Definity, lot #[id number], [facility]# [id number] was administered peripherally to enhance visualization of [...] Tech: PASQUALE Referring MD: BARBARA HOLCOMB Site: [facility] Reading Location: ANW IP Patient Location: [...] diluted Definity, lot #[id number], [facility]#[id number] was administered peripherally to enhance visualization of allleft ventricular segments. . This study was interpreted by an [facility] accredited facility. Final Barbara Holcomb WHOLESALE MANAGER ECHO ORD * US ARTERIAL LOWER [...] 125 mmHg Left Brachial: 111 mmHg Right [place]: Noncompressible Right DPA: 115 mmHg (SAMUEL 0.92) Left [place]: Noncompressible Left DPA: Noncompressible SAMUEL: 1.0-1.4 - normal 0.9-0.99 - borderline 0.80-0.89 - mild 0.50-0.79 - moderate 0.30-0.49 - severe < 0.30 - critical RIGHT: DEMAND GENERATOR MANAGER PROX: 204 cm/sec; triphasic waveforms DEMAND GENERATOR MANAGER DIST: 138 cm/sec; triphasic waveforms PFA: 97 cm/sec; triphasic waveforms SFA PROX: 140, 111 cm/sec; triphasic waveforms SFA MID: 113, 74 cm/sec; triphasic waveforms SFA DIST: 107, 113 cm/sec; triphasic waveforms POP PROX: 105 cm/sec; triphasic waveforms POP DIST: 89 cm/sec; triphasic waveforms [place]: 32 cm/sec; triphasic waveforms KAITLYN: 58 cm/sec; triphasic waveforms DPA: 56 cm/sec; triphasic waveforms LEFT: DEMAND GENERATOR MANAGER PROX: 193 cm/sec; triphasic waveforms DEMAND GENERATOR MANAGER DIST: 152 cm/sec; triphasic waveforms PFA: 98 cm/sec; triphasic waveforms SFA PROX: 119, 109 cm/sec; triphasic waveforms SFA MID: 103, 102 cm/sec; triphasic waveforms SFA DIST: 103, 100 cm/sec; triphasic waveforms POP PROX: 124 cm/sec; triphasic waveforms POP DIST: 85 cm/sec; triphasic waveforms [place]: 169 cm/sec; triphasic waveforms KAITLYN: 91 cm/sec; [...] 125 mmHg Left Brachial: 111 mmHg Right [place]: Noncompressible Right DPA: 115 mmHg (SAMUEL 0.92) Left [place]: Noncompressible Left DPA: Noncompressible SAMUEL: 1.0-1.4 - normal 0.9-0.99 - borderline 0.80-0.89 - mild 0.50-0.79 - moderate 0.30-0.49 - severe < 0.30 - critical RIGHT: DEMAND GENERATOR MANAGER PROX: 204 cm/sec; triphasic waveforms DEMAND GENERATOR MANAGER DIST: 138 cm/sec; triphasic waveforms PFA: 97 cm/sec; triphasic waveforms SFA PROX: 140, 111 cm/sec; triphasic waveforms SFA MID: 113, 74 cm/sec; triphasic waveforms SFA DIST: 107, 113 cm/sec; triphasic waveforms POP PROX: 105 cm/sec; triphasic waveforms POP DIST: 89 cm/sec; triphasic waveforms [place]: 32 cm/sec; triphasic waveforms KAITLYN: 58 cm/sec; triphasic waveforms DPA: 56 cm/sec; triphasic waveforms LEFT: DEMAND GENERATOR MANAGER PROX: 193 cm/sec; triphasic waveforms DEMAND GENERATOR MANAGER DIST: 152 cm/sec; triphasic waveforms PFA: 98 cm/sec; triphasic waveforms SFA PROX: 119, 109 cm/sec; triphasic waveforms SFA MID: 103, 102 cm/sec; triphasic waveforms SFA DIST: 103, 100 cm/sec; triphasic waveforms POP PROX: 124 cm/sec; triphasic waveforms POP DIST: 85 cm/sec; triphasic waveforms [place]: 169 cm/sec; triphasic waveforms KAITLYN: 91 cm/sec; [...] CDT) CULTURE RESULT(A) 01/16/2024 2:44 PM CDT [facility] CULTURE 3+ Corynebacterium striatum 01/16/2024 2:44 PM CDT [facility] CULTURE 2+ Mixed oni present 01/16/2024 2:44 PM CDT [facility] GRAM STAIN No PMNs 01/16/2024 2:44 PM CDT [facility] GRAM STAIN 2+ RBCs 01/16/2024 2:44 PM CDT [facility] GRAM STAIN No Epithelial cells 01/15 2:44 PM CDT [facility] GRAM STAIN 2+ Gram Positive Bacilli 01/16/2024 2:44 PM CDT [facility] Other (Other) Non-Blood / Unknown 01/13/2024 11:49 AM CDT 01/13/2024 12:00 PM CDT Narrative [facility] - 01/16/2024 2:44 PM CDT Mixed oni; No Staphylococcus aureus, beta-Streptococcus, Streptococcus pneumoniae, or Pseudomonas aeruginosa isolated. Freya Schafer NP MICROBIOLOGY Performing Organization Address [facility]/ZIP Co de Phone Number [facility] [address] [place] [place] [address], [place] * ANAEROBIC CULTURE (01/13/2024 11:49 AM CDT) CULTURE No anaerobes isolated 01/19/2024 10:01 AM CDT [facility] Other (Other) Non-Blood / Unknown 01/13/2024 11:49 AM CDT 01/13/2024 12:00 PM CDT Freya Schafer NP MICROBIOLOGY Performing Organization Address City/[facility]/ZIP Co de Phone Number [facility] [address] [place] [address], [place] * (ABNORMAL) Electrolytes Panel - DKA [...] Ifeanyi Hernández RN CHEMISTRY Performing Organization Address [facility] Co de Phone Number [facility] [address] [address], * SCAN-CARDIAC STRIP (01/13/2024 8:00 AM CDT) Scanner OTHER * MAGNESIUM (01/13/2024 4:22 AM CDT) Only the most recent of2 resultswithin the time period is included. MAGNESIUM 1.9 1.6 - 2.4 mg/dL 01/13/2024 5:07 AM CDT [facility] Blood BLOOD SPECIMEN / Unknown Non-Lab Venipuncture / Unknown 01/13/2024 4:22 AM CDT 01/13/2024 4:41 AM CDT Ifeanyi Hernández RN CHEMISTRY Performing Organization Address [facility]/ZIP Co de Phone Number [facility] [address] [place] [place] [address], * (ABNORMAL) Serum Glucose - DKA (01/13/2024 1:52 AM CDT) Only the most recent of2 resultswithin the time period is included. [facility] GLUCOSE,RANDOM 459(H) 70 - 139 mg/dL 01/13/2024 2:46 AM CDT [facility] Blood BLOOD SPECIMEN / Unknown Non-Lab Venipuncture / Unknown 01/13/2024 1:52 AM CDT 01/13/2024 2:03 AM CDT Emily Guzman MD CHEMISTRY Performing Organization Address City/[facility]/ZIP Co de Phone Number [facility] [address] [place] [address], * (ABNORMAL) TROPONIN T (HS) ONE TIME (01/12/2024 11:39 PM CDT) [facility] TROPONIN T HS 45(H) 6-10 ng/L ng/L 01/13/2024 12:22 AM CDT [facility] Blood BLOOD SPECIMEN / Unknown Non-Lab Venipuncture / Unknown 01/12/2024 11:39 PM CDT 01/12/2024 11:45 PM CDT Emily Guzman MD CHEMISTRY Performing Organization Address City/[facility]/ZIP Co de Phone Number [facility] [address] [place] [address], [place] * 12 Lead EKG (01/12/2024 10:16 PM CDT) [facility] Interpretation Normal sinus rhythm Left axis deviation Abnormal ECG When compared with ECG of 02-Jan-2019 02:01, Nonspecific T wave abnormality now evident in Lateral leads BEYOND NOW Ventricular Rate 78 BPM BEYOND NOW Atrial Rate 78 BPM BEYOND NOW P-R Interval 160 ms BEYOND NOW QRS Duration 82 ms BEYOND NOW QT 400 ms BEYOND NOW QTc 456 ms BEYOND NOW P Robards 72 degrees BEYOND NOW R Robards -31 degrees BEYOND NOW T Robards 69 degrees BEYOND NOW 01/12/2024 10:1 6 PM CDT 01/13/2024 8:20 PM CDT Emily Guzman MD EKG ORD BEYOND NOW [place], [place] * MRSA/SA PCR (01/12/2024 10:07 PM CDT) MRSA DNA PCR Negative Negative 01/12/2024 11:33 PM CDT [facility] STAPHYLOCOCCUS AUREUS PCR Negative Negative 01/12/2024 11:33 PM CDT [facility] Other SPECIMEN FROM INTERNAL NOSE / Unknown Non-Blood / Unknown 01/12/2024 10:07 PM CDT 01/12/2024 10:13 PM CDT Narrative [facility] - 01/12/2024 11:33 PM CDT Test result does not preclude MRSA or SA nasal colonization. Chaparro Sneed DO MICROBIOLOGY Performing Organization Address City/[facility]/ZIP Co de Phone Number [facility] [address] [place] [address], * (ABNORMAL) Urine Culture (01/12/2024 10:07 PM CDT) CULTURE RESULT(A) 01/16/2024 6:58 AM CDT [facility] CULTURE 10,000-50,000 CFU/mL Proteus mirabilis 01/16/2024 6:58 AM CDT [facility] CULTURE 50,000-100,000 CFU/mL Danita albicans 01/16/2024 6:58 AM CDT [facility] Urine URINE SPECIMEN / [...] 128: R Emily Guzman MD MICROBIOL OGY [facility] [address] [place] [address] * Blood Culture (01/12/2024 9:40 PM CDT) Only the most recent of2 resultswithin the time period is included. CULTURE No Growth. 01/16/2024 11:23 PM CDT [facility] Blood BLOOD SPECIMEN / Unknown Venipuncture / Unknown 01/12/2024 9:40 PM CDT 01/12/2024 9:52 PM CDT Narrative [facility] - 01/16/2024 11:23 PM CDT Low volume blood culture received; possible false negative culture. Emily Guzman MD MICROBIOL OGY [facility] [address] [place] [address], * (ABNORMAL) TROPONIN T(HS) ACUTE W/2HR REFLEX (01/12/2024 9:37 PM CDT) [facility] TROPONIN T HS 47(H) 6-10 ng/L ng/L 01/12/2024 10:16 PM CDT [facility] Blood BLOOD SPECIMEN / Unknown Non-Lab Venipuncture / Unknown 01/12/2024 9:37 PM CDT 01/12/2024 9:46 PM CDT Narrative [facility] - 01/12/2024 10:16 PM CDT hs-cTnT [...] department patient population. Emily Guzman MD CHEMISTRY [facility] [address] [place] [address], [place] * (ABNORMAL) CBC WITH AUTO DIFFERENTIAL (01/12/2024 9:37 PM CDT) WHITE BLOOD COUNT 14.9(H) 4.5 - 11.0 thou/cu mm 01/12/2024 9:54 PM CDT [facility] RED BLOOD COUNT 3.61(L) 4.00 - 5.20 mil/cu mm 01/12/2024 9:54 PM CDT [facility] HEMOGLOBIN 10.5(L) 12.0 - 16.0 g/dL 01/12/2024 9:54 PM CDT [facility] HEMATOCRIT 32.6(L) 33.0 - 51.0 % 01/12/2024 9:54 PM CDT [facility] MCV 90 80 - 100 fL 01/12/2024 9:54 PM CDT [facility] MCH 29.1 26.0 - 34.0 pg 01/12/2024 9:54 PM CDT [facility] MCHC 32.2 32.0 - 36.0 g/dL 01/12/2024 9:54 PM CDT [facility] RDW 13.2 11.5 - 15.5 % 01/12/2024 9:54 PM CDT [facility] PLATELET COUNT 273 140 - 440 thou/cu mm 01/12/2024 9:54 PM CDT [facility] MPV 11.0 6.5 - 11.0 fL 01/12/2024 9:54 PM CDT [facility] NRBC 0.0 % 01/12/2024 9:54 PM CDT [facility] ABS NRBC 0.0 thou /cu mm 01/12/2024 9:54 PM CDT [facility] % NEUT 80.3 % 01/12/2024 9:54 PM CDT [facility] % LYMPH 9.6 % 01/12/2024 9:54 PM CDT [facility] % MONO 9.2 % 01/12/2024 9:54 PM CDT [facility] % EOS 0.1 % 01/12/2024 9:54 PM CDT [facility] % BASO 0.1 % 01/12/2024 9:54 PM CDT [facility] % IMMATURE GRAN (METAS,MYELOS,HI OS) 0.7 % 01/12/2024 9:54 PM CDT [facility] ABSOLUTE NEUTROPHILS 12.0(H) 1.7 - 7.0 thou/cu mm 01/12/2024 9:54 PM CDT [facility] ABSOLUTE LYMPHOCYTES 1.4 0.9 - 2.9 thou/cu mm 01/12/2024 9:54 PM CDT [facility] ABSOLUTE MONOCYTES 1.4(H) <0.9 thou/cu mm 01/12/2024 9:54 PM CDT [facility] ABSOLUTE EOSINOPHILS 0.0 <0.5 thou/cu mm 01/12/2024 9:54 PM CDT [facility] ABSOLUTE BASOPHILS 0.0 <0.3 thou/cu mm 01/12/2024 9:54 PM CDT [facility] ABSOLUTE IMMATURE GRANULOCYTES(MET ,MYELOS,PROS) 0.1 <0.3 thou/cu mm 01/12/2024 9:54 PM CDT [facility] Blood BLOOD SPECIMEN / Unknown Non-Lab Venipuncture / Unknown 01/12/2024 9:37 PM CDT 01/12/2024 9:46 PM CDT Emily Guzman MD HEMATOLOG Y [facility] [address] [place] [address], [place] * (ABNORMAL) BLOOD GAS,VENOUS (01/12/2024 9:37 PM CDT) PH, VENOUS 7.25(L) 7.32 - 7.43 01/12/2024 9:52 PM CDT [facility] PCO2, VENOUS 44 41 - 51 mmHg 01/12/2024 9:52 PM CDT [facility] PO2, VENOUS 48(H) 35 - 40 mmHg 01/12/2024 9:52 PM CDT [facility] HCO3,VENOUS 19(L) 22 - 29 mmol/L 01/12/2024 9:52 PM CDT [facility] BASE EXCESS, VENOUS, POCT -7.7(L) -2.0 - 3.0 01/12/2024 9:52 PM CDT [facility] O2 SATURATION, VENOUS 85(H) 70 - 75 % 01/12/2024 9:52 PM CDT [facility] INSPIRED O2 21 01/12/2024 9:52 PM CDT [facility] Comment:Unit of Measure: Lit ers (L) if <=20; Percent (%) if >20 PATIENT TEMPERATURE 36.9 Degrees C 01/12/2024 9:52 PM CDT [facility] Blood VENOUS BLOOD SPECIMEN / Unknown Non-Lab Venipuncture / Unknown 01/12/2024 9:37 PM CDT 01/12/2024 9:46 PM CDT Emily Guzman MD CHEMISTRY [facility] [address] [place] [address], [place] * Protime - INR (01/12/2024 9:37 PM CDT) INR 1.0 <1.3 01/12/2024 9:56 PM CDT [facility] PROTIME 11.5 10.3 - 12.3 sec 01/12/2024 9:56 PM CDT [facility] Blood BLOOD SPECIMEN / Unknown Non-Lab Venipuncture / Unknown 01/12/2024 9:37 PM CDT 01/12/2024 9:[address] [facility] - 01/12/2024 9:56 PM CDT [...] on UFH. Emily Guzman MD HEMATOLOG Y [facility] [address] [place] [address], * (ABNORMAL) HEMOGLOBIN A1C MONITORING (POCT) (01/12/2024 9:37 PM CDT) Pathologist [facility] [place] HEMOGLOBIN A1C MONITORING (POCT) 9.3(H) <=6.4 % 01/14/2024 10:29 AM CDT [facility] Blood BLOOD SPECIMEN / Unknown Non-Lab Venipuncture / Unknown 01/12/2024 9:37 PM CDT 01/12/2024 9:[address] [facility] - 01/14/2024 10:29 AM CDT [...] with: Untreated Anemias, Splenectomy ? Barbara Holcomb WHOLESALE MANAGER CHEMISTRY [facility] [address] [place] [address], * (ABNORMAL) Hepatic Function Panel (01/12/2024 9:37 PM CDT) Pathologist [facility] [place] ALBUMIN 3.2(L) 4.0 - 4.9 g/dL 01/12/2024 10:16 PM CDT [facility] PROTEIN,TOTAL 6.4 6.0 - 8.0 g/dL 01/12/2024 10:16 PM CDT [facility] BILIRUBIN,TOTAL 0.2 0.0 - 1.2 mg/dL 01/12/2024 10:16 PM CDT [facility] BILIRUBIN,DIRECT <0.2 0.0 - 0.3 mg/dL 01/12/2024 10:16 PM CDT [facility] BILIRUBIN,INDIRE CT 01/12/2024 10:16 PM CDT [facility] Comment:Unable to calculate, Direct Bili <0.2 ALK PHOSPHATASE 122(H) 35 - 104 IU/L 01/12/2024 10:16 PM CDT [facility] ALT (SGPT) 21 10 - 35 IU/L 01/12/2024 10:16 PM CDT [facility] AST (SGOT) 20 10 - 35 IU/L 01/12/2024 10:16 PM CDT [facility] Blood BLOOD SPECIMEN / Unknown Non-Lab Venipuncture / Unknown 01/12/2024 9:37 PM CDT 01/12/2024 9:46 PM CDT Emily Guzman MD CHEMISTRY [facility] [address] [place] [address], * SCAN-CARDIAC STRIP (01/12/2024 9:20 PM CDT) [...] health care provider. XR MAMMO BILAT SCREENING [[id number]] CLINICAL HISTORY: ??This is an asymptomatic 61 y.o. patient. INDICATION FOR EXAM: Mammogram Screening. TECHNIQUE: CC & MLO views were obtained. ??This study was evaluated with the assistance of Computer-Aided Detection. COMPARISON FILM: Yes [facility]/02/18 [facility]13 [facility] FINDINGS: ??The breasts are extremely dense, which lowers the sensitivity of mammography. There are no dominant masses, suspicious micro calcifications or areas of architectural distortion. Shania Montiel MD MAMMO * LIPID PANEL W REFLEX MEASURED LDL (04/28/2022 1:44 PM CDT) CHOLESTEROL,TOTAL 139 100 - 199 mg/dL 04/30/2022 6:25 PM CDT [facility] TRIGLYCERIDES 141 <150 mg/dL 04/30/2022 6:25 PM CDT [facility] HDL CHOLESTEROL 42 >40 mg/dL 6:25 PM CDT [facility] NON-HDL CHOLESTEROL 97 <145 mg/dl 04/30/2022 6:25 PM CDT [facility] CHOL/HDL RATIO 3.31 <4.50 04/30/2022 6:25 PM CDT [facility] LDL CHOLESTEROL 69 <=130 mg/dL 04/30/2022 6:25 PM CDT [facility] VLDL CHOLESTEROL 28 <=30 mg/dL 04/30/2022 6:25 PM CDT [facility] PROVIDER ORDERED STATUS RANDOM 04/30/2022 6:25 PM CDT [facility] Blood BLOOD SPECIMEN / Unknown Venipuncture / Unknown 04/28/2022 1:44 PM CDT 04/28/2022 1:45 PM CDT Shania Montiel MD CHEMISTRY [facility] [address] [place] [address], [place] * FECAL DNA (AKA COLOGUARD) (11/10/2021 1:00 PM CDT) Shania Montiel MD COMMUNICATION ORD * ANTI HCV [90533.2] (02/16/2018 4:20 PM CDT) HEPATITIS C ANTIBODY Non-React alex Non-React alex 02/17/2018 2:48 PM CDT [facility] Comment:Antibodies to HCV no t detected; does not exclude the possibility of exposure to HCV. Blood BLOOD SPECIMEN / Unknown Butterfly / Unknown 02/16/2018 4:20 PM CDT 02/16/2018 4:20 PM CDT Coleman Plata MD SEND OUTS [facility] [address] * HIV 1&2 TODAY (07/21/2015 9:40 AM MEDICAL INVESTIGATOR) HIV-1/HIV-2 ANTIBODY Non-Reacti ve Non-Reacti ve 07/21/2015 10:31 AM MEDICAL INVESTIGATOR [facility] Blood specimen (specimen) BLOOD SPECIMEN / Unknown Venipuncture / Unknown 07/21/2015 9:40 AM MEDICAL INVESTIGATOR 07/21/2015 9:47 AM MEDICAL INVESTIGATOR Narrative [facility] - 07/21/2015 10:31 AM MEDICAL INVESTIGATOR HIV-1 p24 and HIV-1/HIV-2 Ab not detected Kait Morales DO SEND OUTS [facility] [address] * CABLE TESTERS HELPER THIN PREP PAP SCREEN IMAGED (08/17/2012 4:02 PM MEDICAL INVESTIGATOR) Pathologist [facility] [place] CYTOLOGY CYTOPATHOLOGY REPORT [facility] Status: Final Status ?[id number] CLINICAL INFORMATION Last Date of LMP ? :07/03/2012 Last Pap Date ?:02/01/2011 Last Pap Result ?:NIL ABN [place]/Bx Past 5 YRS :None Hormone Usage ?:BCP/OCP/Patch/R ing Menstrual Status ? :Regular Periods [place]/Bx done today ? :No Additional Information :None [...] COLLECTED:08/17/12 ? ACCESSIONED: ??08/18/12 ?? SIGNED: ??08/21/12 [facility] PAP [place] CODE NIL [facility] Tissue specimen (specimen) (Cervical/Vagina l) 08/17/2012 4:02 PM MEDICAL INVESTIGATOR 08/17/2012 4:00 PM MEDICAL INVESTIGATOR Coleman Plata MD PATHOLOGY/CYTOLOGY [facility] INTERNAL ZIP [phone] [place] [id number] from Last 3 Months or Most Recently [...] Urine earlier this year (per report from [facility], not available in CareEverywhere), 04/19/18 L [...] 8:01 PM 07/15/2012 6:55 PM Care Teams Supervisor Fine Grading Relationship Specialty Start Date End Date SaúlBarbara epps DO Patricia [address] [place] [address] PCP - General Family Practice 11/15/22 Julio Ibrahim MD [address] [place], [place] [id number] Surgery - Orthopedics 02/01/11 Chuy Doss MD [address] [place] [address] Surgery - Vascular 02/01/11 Markel Strong MD [address] [place] [address] Provider Family Practice 08/08/20 Nikolai Ibarra MD [address] [place] [address] Endocrinology 09/07/22 Suad Ng/ [employer] CM Zipper Repairer 07/14/17 [facility] Home Health Nurse 07/01/17 [facility] ROPING TENDER Services Home Health Aide 07/14/17 [facility] Wearing Apparel Presser/ Ally Christianson [address] [place] [address] Zipper Repairer 07/07/17
[2024-04-05 17:36] LABS: HCO3 VBG 26 mmol/L (21-28); PCO2 VBG 46 mmHG (40-50); PO2 VBG 34.1 mmHG (25-47); pH VBG 7.356 (7.32-7.43)
[2024-04-05 17:37] LABS: Basophils Absolute Auto 0.02 K/uL (0.00-0.30); Basophils Percent Auto 0.2 % (0.0-3.0); Eosinophils Absolute Auto 0.24 K/uL (0.00-0.50); Eosinophils Percent Auto 2.7 % (0.0-7.0); Hematocrit 30.9 % (33.0-51.0); Hemoglobin* 9.7 gm/dL (12.0-16.0); Immature Granulocytes Abs Auto 0.01 K/uL (0.00-0.30); Immature Granulocytes Pct Auto 0.1 %; Lymphocytes Percent Auto 9.1 % (20-44); Mean Corpuscular HGB Conc 31 gm/dL (32-36); Mean Corpuscular Hemoglobin 29 pg (26-34); Mean Corpuscular Volume 92 fL (80-100); Monocytes Percent Auto 9.7 % (0.0-11.0); Neutrophils Percent Auto 78.2 % (42.0-72.0); Platelet Count* 274 K/uL (140-440); RDW Coefficient of Variation % 15.2 % (11.5-15.5); Red Blood Count 3.37 m/uL (4.00-5.20); White Blood Count* 8.97 K/uL (4.50-11.00)
[2024-04-05 17:43] LABS: Lactate Sepsis w/Reflex* 2.4 mmol/L (0.5-1.9)
[2024-04-05 17:44] LABS: Slide Review Reflex No
[2024-04-05 17:56] LABS: Albumin* 3.8 g/dL (3.3-5.0); Chloride* 100 mmol/L (96-114); Sodium* 134 mmol/L (135-149)
[2024-04-05 17:57] LABS: Potassium* 4.6 mmol/L (3.6-5.1)
[2024-04-05 17:59] LABS: Alanine Aminotransferase* 15 U/L (4-35); Alkaline Phosphatase* 150 U/L (40-150); Anion Gap 8 mEq/L (7-15); Aspartate Amino Transferase* 16 U/L (12-35); Bilirubin Direct* 0.4 mg/dL (0.0-0.5); Bilirubin Total* 0.5 mg/dL (0.1-1.5); Blood Urea Nitrogen* 33 mg/dL (7-30); Carbon Dioxide* 26 mmol/L (20-32); Creatinine* 2.2 mg/dL (0.5-1.5); Est. Creatinine Clearance* 19.04; Estimated Glomerular Filt Rate 25 ml/min; Total Protein* 7.2 g/dL (6.0-8.3)
[2024-04-05 18:00] LABS: Calcium* 9.1 mg/dL (8.4-10.6); Glucose* 348 mg/dL (60-115)
[2024-04-05 18:02] LABS: C Reactive Protein* 7.5 mg/dL (0.5-1.0)
[2024-04-05 18:09] LABS: Bilirubin Urine 2+ (Negative); Blood Urine 3+ (Negative); Color Urine Yellow (Yellow); Glucose Urine 3+ (Negative); Ketones Urine 1+ (Negative); Leukocyte Esterase Urine 1+ (Negative); Nitrite Urine Negative (Negative); Protein Urine 2+ (Negative); Specific Gravity Urine 1.015 (1.000-1.030); Urobilinogen Urine 0.2 (0.2-1.0); pH Urine 5.5 (5.0-8.5)
[2024-04-05] MEDS: LACTATED RINGERS 1000 ML 1,000 ML IV (18:10)
[2024-04-05 18:14] LABS: Appearance Urine Slightly Cloudy (Clear)
[2024-04-05 18:19] LABS: Bacteria Urine Few; Squamous Epithelial Cell Urine Few (None-Few); WBC Urine 50-100 (0-5)
[2024-04-05 18:50] LABS: Glucose, Point-of-Care* 302 mg/dl (60-115)
--- NOTE | 2024-04-05 19:02 | P.IMHP_ITS ---
Hospitalist- H&P: HPI History of Present Illness Date Seen: 04/05/24 Chief complaint: High glucose-sent from Narrative: Mikayla Kuhn is a 63 year old female with type 1 diabetes admitted to the hospital with hyperglycemia. She had a routine appointment [facility] and told him that she was having her glucose monitor continuously read high and they referred her to the emergency department. Kati was admitted here from March 16 to March 22 with a heart failure exacerbation. Also during that hospital stay she had problems with nocturnal hypoglycemia so her basal insulin was decreased and then stopped. She otherwise had adequate blood sugar control. She was admitted on March 30 and discharged on April 02. That admission was for DKA with hyperglycemia. During that hospital stay her basal insulin was reintroduced at Lantus 5 units daily in the morning and she was given mealtime insulin of 4 units plus sliding scale. Blood sugars were mostly in the 200s to 300s during that stay. She tells me she has been taking her ba ronda and bolus insulin. She tells me the sliding scale is new so she does not know how much insulin she has been giving beyond the basal-bolus scheduled insulin. She reports she has mostly eating regular meals and taking insulin before meals. She reports not feeling ill. She has not any fever, cold, cough, chest pain, shortness of breath, abdominal pain, nausea, vomiting or diarrhea. She has no urinary symptoms. Review of Systems Narrative: She reports generally feeling fine. [facility] Medical History (Updated 04/05/24 @ 19:13 by Peterson Javed MD) Abnormal urinalysis ?R82.90 - Unspecified abnormal findings in urine (ICD-10) Nocturnal hypoglycemia ?E16.1 - Other hypoglycemia (ICD-10) Stage 4 chronic kidney disease ?N18.4 - Chronic kidney disease, stage 4 (severe) (ICD-10) Congestive heart failure (CHF) ?I50.9 - Heart failure, unspecified (ICD-10) Hypertension ?I10 - Essential (primary) hypertension (ICD-10) Diabetes type I ?E10.9 - Type 1 diabetes mellitus without complications (ICD-10) Hyperosmolar syndrome ?E87.0 - Hyperosmolality and hypernatremia (ICD-10) Sleep apnea ?G47.30 - Sleep apnea, unspecified (ICD-10) Ulnar neuropathy ?G56.20 - Lesion of ulnar nerve, unspecified upper limb (ICD-10) Hyperlipidemia ?E78.5 - Hyperlipidemia, unspecified (ICD-10) Morbid obesity ?E66.01 - Morbid (severe) obesity due to excess calories (ICD-10) GERD (gastroesophageal reflux disease) ?K21.9 - Gastro-esophageal reflux disease without esophagitis (ICD-10) 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 diabetic neuropathic arthropathy (ICD-10) Depressive disorder ?F32.A - Depression, unspecified (ICD-10) COPD (chronic obstructive pulmonary disease) ?J44.9 - Chronic obstructive pulmonary disease, unspecified (ICD-10) Chronic pain syndrome ?G89.4 - Chronic pain syndrome (ICD-10) Chronic kidney disease, stage 1 ?N18.1 - Chronic kidney disease, stage 1 (ICD-10) Carpal tunnel syndrome ?G56.00 - Carpal tunnel syndrome, unspecified upper limb (ICD-10) Diabetic retinopathy ?E11.319 - Type 2 diabetes mellitus with unspecified diabetic retinopathy without macular edema (ICD-10) Anemia of other chronic disease ?D63.8 - Anemia in other chronic diseases classified elsewhere (ICD-10) Acute respiratory failure ?J96.00 - Acute respiratory failure, unspecified whether with hypoxia or hypercapnia (ICD-10) Surgical History History of thyroidectomy ?E89.0 - Postprocedural hypothyroidism (ICD-10) History of hip replacement ?Z96.649 - Presence of unspecified artificial hip joint (ICD-10) History of gastric bypass ?Z98.84 - Bariatric surgery status (ICD-10) History of section ?Z98.891 - History of uterine scar from previous surgery (ICD-10) Hx of cataract removal with insertion of prosthetic lens ?Z98.49 - Cataract extraction status, unspecified eye (ICD-10) ?Z96.1 - Presence of intraocular lens (ICD-10) History of carpal tunnel release ?Z98.890 - Other specified postprocedural states (ICD-10) History of knee replacement procedure of right knee ?Z96.651 - Presence of right artificial knee joint (ICD-10) Family History Mother Diabetes Obesity Sleep apnea Brother Diabetes Obesity Sleep apnea Father Sleep apnea High blood pressure Social History Narrative: Full Code. Lives with son Mtiul, who would be medical decision maker if needed. Also lives with sister. She does not smoke. She does not drink alcohol. What is your current living situation?: I presently have a place to live Problems where you live: no known problems Problems where you live details: no In the past 12 months, utilities in danger of being shut off: no In past 12 months, lack of transportation kept you from medical appts, meetings, work, or getting things needed for daily living: no In the past 12 mos, have been you worried that your food would run out before you had money to buy more?: never true In the past 12 mos, the food you bought just didn't last and you didn't have money to buy more?: never true Smoking Status: Never smoker Do you use any of these nicotine containing products: None Second hand tobacco smoke exposure: No How often do you have a drink containing alcohol: never How often do you have six or more drinks on one occasion: Never AUDIT-C Alcohol total score: 0 Non-prescribed substance use: denies use How often does anyone, including family, friends and others, physically hurt you : never How often does anyone, including family, friends and others, insult or talk down to you: never How often does anyone, including family, friends and others, threaten you with harm: never How often does anyone, including family, friends and others, scream or curse at you: never service: No Meds Home Medications and Allergies Home Medications ?Medication ?Instructions ?Recorded ?Confirmed ?Type amlodipine 2.5 mg tablet 2.5 mg PO BID 10/11/22 04/05/24 History atorvastatin 20 mg tablet 20 mg PO HS 10/11/22 04/05/24 History buprenorphine 5 mcg/hour weekly 1 patch transdermal Q7D 10/11/22 04/05/24 History transdermal patch cetirizine 5 mg tablet 5 mg PO DAILY 10/11/22 04/05/24 History cholecalciferol (vitamin D3) 50 50 mcg PO DAILY 10/11/22 04/05/24 History mcg (2,000 unit) capsule duloxetine 60 mg capsule,delayed 60 mg PO DAILY 10/11/22 04/05/24 History release metoprolol succinate 25 mg 25 mg PO DAILY 10/11/22 04/05/24 History tablet,extended release 24 hr omeprazole 20 mg capsule,delayed 20 mg PO DAILY 10/11/22 04/05/24 History release oxycodone 5 mg tablet 5 mg PO BID PRN 10/11/22 04/05/24 History polyethylene glycol 3350 17 17 g PO DAILY PRN 10/11/22 04/05/24 History gram/dose oral powder (Miralax) pregabalin 100 mg capsule 100 - 200 mg PO BID 10/11/22 04/05/24 History pregabalin 50 mg capsule 50 mg PO HS 10/11/22 04/05/24 History sennosides 8.6 mg-docusate sodium 2 tab PO BID PRN 10/11/22 04/05/24 History 50 mg tablet (Stool Softener-Stimulant Laxative) torsemide 20 mg tablet 40 mg PO DAILY 10/11/22 04/05/24 History vitamin B12 2,500 mcg-folic acid 1 tab PO DAILY 10/11/22 04/05/24 History 400 mcg disintegrating tablet acetaminophen 650 mg 1,300 mg PO Q8H 12/19/22 04/05/24 History tablet,extended release levothyroxine 125 mcg tablet 125 mcg PO DAILY 05/25/23 04/05/24 History fluoxetine 10 mg capsule 10 mg PO DAILY 03/16/24 04/05/24 History cyanocobalamin (vitamin B-12) 1,000 mcg PO DAILY 03/17/24 04/05/24 History 1,000 mcg tablet glucagon 3 mg/actuation nasal 3 mg intranasal DIRECTED PRN 03/17/24 04/05/24 History spray (Baqsimi) naloxone 4 mg/actuation nasal 4 mg intranasal DIRECTED PRN 03/17/24 04/05/24 History spray (Narcan) Allergies Allergy/AdvReac Type Severity Reaction Status Date / Time ampicillin Allergy Mild Hives Verified 04/05/24 16:16 aspirin Allergy Unknown Verified 04/05/24 16:16 NSAIDS (Non-Steroidal Allergy Unknown Verified 04/05/24 16:16 Anti-Inflamma Exam Narrative: Exam Narrative: She is alert and appears in no distress. Speech is somewhat halting but otherwise fluent. She is oriented to her circumstances. Eyes normal. Orop harynx with small airway. Prominent tongue. Neck is supple without mass or adenopathy. Respirations are clear to auscultation. No wheezing rales rhonchi. Cardiovascular: S1, S2, regular rate and rhythm. No murmur gallop or rub. Abdomen: Bowel sounds active. Abdomen is soft without tenderness or mass. External genitalia normal. Extremities normal except her left heel which has a ulcer. This is a chronic ulcer with the Mepilex bandage over it. No significant surrounding erythema. Const: Vital Signs, click to edit/add: Vital Signs - 24 hr 04/05/24 16:08 Temperature 98.1 F Pulse Rate [Right Pulse Oximeter] 80 Respiratory Rate 16 Blood Pressure [Ri ght Forearm] 158/65 H Pulse Oximetry 88 Oxygen Delivery Me thod Room Air Documenting provider has reviewed patient's vital signs: yes Hospitalist - H&P: Result Labs Labs: Short CBC 04/05/24 Range/Units 17:25 WBC 8.97 (4.50-11.00) K/uL Hgb 9.7 L (12.0-16.0) gm/dL Hct 30.9 L (33.0-51.0) % Plt Count 274 (140-440) K/uL BMP 04/05/24 17:25 Sodium 134 L Potassium 4.6 Chloride 100 Carbon Dioxide 26 BUN 33 H Creatinine 2.2 H Glucose 348 H Calcium 9.1 Liver Function 04/05/24 Range/Units 17:25 Total Bilirubin 0.5 (0.1-1.5) mg/dL Direct Bilirubin 0.4 (0.0-0.5) mg/dL AST 16 (12-35) U/L ALT 15 (4-35) U/L Alkaline Phosphatase 150 (40-150) U/L Albumin 3.8 (3.3-5.0) g/dL Urine 04/05/24 Range/Units 18:04 Urine Color Yellow (Yellow) Urine Appearance Slightly Cloudy A (Clear) Urine pH 5.5 (5.0-8.5) Ur Specific [place] 1.015 (1.000-1.030) Urine Protein 2+ A (Negative) Urine Glucose (UA) 3+ A (Negative) Assessment and Plan Assessment and plan (1) Hyperglycemia due to diabetes mellitus: Status: Acute (2) Stage 4 chronic kidney disease: Problem comment: - baseline 2 as outpatient, admission Creatinine 2.9, Cr @ 2.1 03/31, near baseline. Stop IVF. - 04/01 Cr down to 1.4. May be hypervolemic, but lungs are clear and LE show no edema. Mild hypoxia noted. - Restarted home torsemide, creatinine remains stable at 1.4 Status: Acute (3) Congestive heart failure (CHF): Problem comment: Improved but still some evidence of volume overload. Resume normal diuretic. May need additional diuretic. If tolerated restart losartan. Cause for exacerbation is unclear. Now improved with diuresis as tolerated. W eaned off of CPAP during the day but using at night for sleep apnea . Echocardiogram from 01/13/2024: Final Impressions: 1. Normal LV size, normal wall thickness, normal global systolic function with an estimated EF of 60 - 65%. 2. Right ventricular cavity size is normal, global systolic RV function is normal. 3. No significant valve disease detected. Status: Acute (4) Abnormal urinalysis: Problem comment: Abnormal urinalysis on most every admission. Not having a urinary infection symptoms. Recent cultures have grown mixed oni. Will hold off on antibiotics until she develops symptoms or evidence of severe infection. As an outpatient may need to see urologist for ongoing evaluation of abnormal urine sentiment Status: Ruled-out Plan Prosper is admitted to the hospital to further adjust her insulin. Three weeks ago she was receiving 20 units of Lantus every morning and 8 units of NovoLog with each meal. Other than nocturnal hypoglycemia this was working well for her I am going to put her back on 8 units of NovoLog for mealtime insulin plus sliding scale and 8 units of Lantus every morning as well. Closely monitor blood sugars as well as other symptoms. Will correlate her continues glucose monitor with are fingerstick blood sugars. Will ask her to calculate her mealtime and sliding scale insulin dose to make sure she is able to do this accurately. Total Time Spent Total Time Spent: Total time spent today is 70 minutes in evaluation and management discussing with patient and other providers management of hyperglycemia
[2024-04-05 19:24] LABS: Lactate Sepsis 2 Hour 1.9 mmol/L (0.5-1.9)
[2024-04-05 20:04] VITALS: BP 153/58; PULSE 75; RESP 16; TEMP 36.2; O2SAT 90; BMI 41.8
[2024-04-05 20:17] VITALS: BP 153/58; PULSE 75; RESP 16; TEMP 36.2; O2SAT 90
[2024-04-05] MEDS: ACETAMINOPHEN 650 MG TABLET ER 1300 MG PO (20:35)
[2024-04-05] MEDS: AMLODIPINE 5 MG TABLET 2.5 MG PO (20:36)
[2024-04-05] MEDS: ATORVASTATIN 10 MG TABLET 20 MG PO (20:37)
[2024-04-05] MEDS: PREGABALIN 100 MG CAPSULE PO (20:37)
[2024-04-05] MEDS: PREGABALIN 50 MG CAPSULE PO (20:37)
[2024-04-05] MEDS: INSULIN ASPART 100 UNIT/ML SUBCUT (20:38)
[2024-04-05] MEDS: SODIUM CHLORIDE 0.9 % (FLUSH) 10 ML SYRINGE 5 ML IVF (20:39)
[2024-04-05 22:29] VITALS: BP 112/48; PULSE 72; RESP 16; TEMP 36.4; O2SAT 88
[2024-04-06] MEDS: INSULIN ASPART 100 UNIT/ML SUBCUT ×2 (02:30→08:33)
[2024-04-06] MEDS: ACETAMINOPHEN 650 MG TABLET ER 1300 MG PO ×2 (02:31→10:34)
[2024-04-06 02:37] VITALS: BP 122/50; PULSE 69; RESP 16; TEMP 36.4; O2SAT 88
--- NOTE | 2024-04-06 04:29 | PC.NURSE ---
Shift note: Pt arrived at the unit at 1910 on a wheelchair. Alert and oriented and conscious on arrival. Pt reported that her blood sugar level was high when checked. She called the the ED and reported the blood level and was advised to come in for evaluation. No weakness, perspiration, fever, and AMS observed. Blood sugar level checked on arrival was 193. Repeated at 0200 was 300 because pt was given bread toast and ice cream. Pt denied pain except pain in the left heel with ambulation due to ulcer at the left heel. Pt has been visiting the wound clinic at least 1x/week. Ambulated with A1, walker and GB. Pt had adequate sleep.
[2024-04-06] MEDS: LEVOTHYROXINE 125 MCG TABLET PO (06:36)
[2024-04-06] MEDS: OXYCODONE 5 MG TABLET PO (06:36)
[2024-04-06 07:00] VITALS: BP 134/42; PULSE 71; RESP 16; TEMP 36.6; O2SAT 93
[2024-04-06] MEDS: INSULIN ASPART 100 UNIT/ML 8 UNIT SUBCUT (08:32)
[2024-04-06] MEDS: AMLODIPINE 5 MG TABLET 2.5 MG PO (08:34)
[2024-04-06] MEDS: CETIRIZINE HCL 10 MG TABLET 5 MG PO (08:34)
[2024-04-06] MEDS: DULOXETINE 30 MG CAPSULE DR 60 MG PO (08:35)
[2024-04-06] MEDS: CYANOCOBALAMIN (VITAMIN B-12) 500 MCG TABLET 1000 MCG PO (08:35)
[2024-04-06] MEDS: TORSEMIDE 20 MG TABLET 40 MG PO (08:36)
[2024-04-06] MEDS: OMEPRAZOLE 20 MG CAPSULE DR PO (08:36)
[2024-04-06] MEDS: METOPROLOL SUCCINATE (XL) 25 MG TAB PO (08:36)
[2024-04-06] MEDS: INSULIN GLARGINE,HUM.REC.ANLOG 100 UNIT/ML INSULN.PEN 8 UNIT SUBCUT (08:42)
--- NOTE | 2024-04-06 10:00 | PM.DS1 ---
DS: Providers Provider Date Seen: 04/06/24 Date of admission: 04/05/24 19:05 Primary care physician: Barbara Valentin DO Admitting Clinician: Peterson Javed MD Attending Phys[facility] on discharge[facility]: 04/06/24 DS: Diagnosis Discharge Diagnosis (1) Hyperglycemia due to diabetes mellitus: Status: Acute Problem details: -we adjusted her basal insulin glargine from 4 units q.a.m. to 8 units q.a.m. -we adjusted her bolus insulin Humalog from 5 units with meals to 8 units with meal -we kept her sliding scale the same (2) Anemia of other chronic disease: Status: Chronic Problem details: Hgb stable. (3) Diabetes type I: Status: Acute Problem details: -difficult control given baseline cognition, diet indiscretion, insulin dosing adherence DS: Summary Hospital Course Hospital Course: FINAL DIAGNOSIS/FOLLOW UP ISSUES: Type 1 diabetes with hyperglycemia: Adjusting her basal bolus insulin regimen, Education. BRIEF HOSPITAL COURSE: Patient was admitted overnight. Synopsis of acute inpatient issues are outlined above. Chronic medical conditions with notable findings outlined above. The main reason for observation overnight was her recent complications which included heart failure and DKA in the setting of her poorly controlled type 1 diabetes. She was asymptomatic and without acute issue but we intervened with observation for further Education and insulin titration. Her basal bolus insulin regimen were scheduled. DISCHARGE MEDICATIONS: See Reconciled list - SIGNIFICANT CHANGES: Basal glargine, 8 units q.a.m. Bolus Humalog, 8 units t.i.d. Sliding scale insulin Specific instructions to the patient and follow-up are outlined below. REVIEW OF SYSTEMS No new chest pain or dyspnea Pain controlled No voiding difficulties Tolerating diet challenge PHYSICAL EXAM: CONSTITUTIONAL: Baseline. VITAL SIGNS: see record. HEENT: Normocephalic, atraumatic. PERRL, EOMI, conjunctivae pink, no scleral icterus. Ears and nose externally normal. Pharynx normal. NECK: No JVD. No carotid bruit, no thyromegaly, no adenopathy. CHEST: Clear to auscultation bilaterally. HEART: S1 and S2 normal. Edema ABDOMEN: Soft, nontender. Normal bowel sounds. MUSCULOSKELETAL: No gross joint deformity or swelling. NEURO: Cranial nerves intact. Grossly intact. No asymmetric findings. SKIN: No rashes, petechiae, concerning changes PSYCHIATRIC: Mood euthymic. DISPOSITION: Discharge with family to follow up with PCP this afternoon. Time spent on discharge 37 minutes. Status at Discharge Functional status at discharge: uses cane/walker Overall status at discharge: patient is back to baseline Time Spent with Patient Time attestation: Total time spent providing and/or coordinating discharge services: Time spent: Greater than 30 minutes Specific discharge activities: DIABETIC EDUCATION, PRINTED INSTRUCTIONS IN LARGE FONT Exam Const: Vital Signs, click to edit/add: Vital Signs - 24 hr 04/05/24 16:08 04/05/24 20:04 04/05/24 20:17 Temperature 98.1 F 97.2 F L 97.2 F L Pulse Rate [Left P ulse Oximeter] 75 75 Pulse Rate [Right Pulse Oximeter] 80 Respiratory Rate 16 16 16 Blood Pressure [Ri ght Arm] 153/58 H 153/58 H Blood Pressure [Ri ght Forearm] 158/65 H Pulse Oximetry 88 90 90 Oxygen Delivery Me thod Room Air Room Air Room Air 04/05/24 20:17 04/05/24 22:29 04/05/24 22:29 Temperature 97.5 F L Pulse Rate [Left P ulse Oximeter] 72 72 Pulse Rate [Right Pulse Oximeter] Respiratory Rate 16 16 16 Blood Pressure [Ri ght Arm] 112/48 L Blood Pressure [Ri ght Forearm] Pulse Oximetry 90 88 Oxygen Delivery Me thod Room Air Room Air 04/06/24 02:37 04/06/24 07:00 04/06/24 07:00 Temperature 97.5 F L 97.9 F Pulse Rate [Left P ulse Oximeter] 69 71 71 Pulse Rate [Right Pulse Oximeter] Respiratory Rate 16 16 16 Blood Pressure [Ri ght Arm] 122/50 L 134/42 L Blood Pressure [Ri ght Forearm] Pulse Oximetry 88 93 Oxygen Delivery Me thod Room Air Room Air DS: Data Data Completed and Pending Completed studies during hospitalization: Procedures Assistance with Respiratory Ventilation, Less than 24 Consecutive Hours, Continuous Positive Airway Pressure (03/16/24) Insertion of Infusion Device into Right Internal Jugular Vein, Percutaneous Approach (10/11/22) Introduction of Other Gas into Respiratory Tract, Via Natural or Artificial Opening (03/16/24) Ultrasonography of Right Jugular Veins, Guidance (10/11/22) Labs on day of discharge: Labs from last 24 hours 04/05/24 04/05/24 04/05/24 19:20 18:48 18:04 WBC RBC Hgb Hct MCV MCH MCHC RDW Coeff of Stefan Plt Count Neut % (Auto) Lymph % (Auto) [place] % (Auto) Eos % (Auto) Baso % (Auto) Neut # (Auto) Lymph # (Auto) [place] # (Auto) Eos # (Auto) Baso # (Auto) Abs Immat Gran (auto) Imm/Tot Granulo (auto) VBG pH VBG pCO2 VBG pO2 VBG HCO3 Sodium Potassium Chloride Carbon Dioxide Anion Gap BUN Creatinine Estimated Creat Clear Estimated GFR Glucose Lactate 1.9 Calcium Total Bilirubin Direct Bilirubin AST ALT Alkaline Phosphatase C-Reactive Protein Total Protein Albumin Urine Color Yellow Urine Appearance Slightly Cloudy A Urine pH 5.5 Ur Specific [place] 1.015 Urine Protein 2+ A Urine Glucose (UA) 3+ A Urine Ketones 1+ A Urine Blood 3+ A Urine Nitrite Negative Urine Bilirubin 2+ A Urine Urobilinogen 0.2 Ur Leukocyte Esterase 1+ A Urine RBC 10-25 A Urine WBC 50-100 A Ur Squamous Epith Cells Few Urine Bacteria Few A Urine Yeast Moderate A POC Glucose 302 H POC Troponin I 04/05/24 04/05/24 17:25 16:49 WBC 8.97 RBC 3.37 L Hgb 9.7 L Hct 30.9 L MCV 92 MCH 29 MCHC 31 L RDW Coeff of Stefan 15.2 Plt Count 274 Neut % (Auto) 78.2 H Lymph % (Auto) 9.1 L [place] % (Auto) 9.7 Eos % (Auto) 2.7 Baso % (Auto) 0.2 Neut # (Auto) 7.00 Lymph # (Auto) 0.80 L [place] # (Auto) 0.90 Eos # (Auto) 0.24 Baso # (Auto) 0.02 Abs Immat Gran (auto) 0.01 Imm/Tot Granulo (auto) 0.1 VBG pH 7.356 VBG pCO2 46 VBG pO2 34.1 VBG HCO3 26 Sodium 134 L Potassium 4.6 Chloride 100 Carbon Dioxide 26 Anion Gap 8 BUN 33 H Creatinine 2.2 H Estimated Creat Clear 19.04 Estimated GFR 25 Glucose 348 H Lactate 2.4 H Calcium 9.1 Total Bilirubin 0.5 Direct Bilirubin 0.4 AST 16 ALT 15 Alkaline Phosphatase 150 C-Reactive Protein 7.5 H Total Protein 7.2 Albumin 3.8 Urine Color Urine Appearance Urine pH Ur Specific [place] Urine Protein Urine Glucose (UA) Urine Ketones Urine Blood Urine Nitrite Urine Bilirubin Urine Urobilinogen Ur Leukocyte Esterase Urine RBC Urine WBC Ur Squamous Epith Cells Urine Bacteria Urine Yeast POC Glucose POC Troponin I 0.00 L Preliminary micro results at discharge 04/05/24 18:04 Urine Culture - Preliminary Urine,Clean Catch Culture in Progress Discharge Plan Discharge Disposition: Home w/ Parent or Adult Date of Admission: 04/05/24 19:05 Attending Provider on Discharge: Rhiannon Car Primary Care Provider: Barbara Valentin Anticipated Discharge Date/Time: 04/06/24 09:02 Discharge Medications: Continued atorvastatin 20 mg tablet 20 mg PO HS torsemide 20 mg tablet 40 mg PO DAILY cetirizine 5 mg tablet 5 mg PO DAILY sennosides-docusate sodium [Stool Softener-Stimulant Laxat] 8.6-50 mg tablet 2 tab PO BID PRN omeprazole 20 mg capsule,delayed release(DR/EC) 20 mg PO DAILY metoprolol succinate 25 mg tablet extended release 24 hr 25 mg PO DAILY oxycodone 5 mg tablet 5 mg PO BID PRN duloxetine 60 mg capsule,delayed release(DR/EC) 60 mg PO DAILY pregabalin 50 mg capsule 50 mg PO HS Rx Instructions: WITH 100 MG DOSE = 150 MG QHS pregabalin 100 mg capsule 100 - 200 mg PO BID Rx Instructions: 200 MG IN AM AND 150 MG IN PM cholecalciferol (vitamin D3) 50 mcg (2,000 unit) capsule 50 mcg PO DAILY buprenorphine 5 mcg/hour patch weekly 1 patch transdermal Q7D polyethylene glycol 3350 [Miralax] 17 gram/dose powder 17 g PO DAILY PRN amlodipine 2.5 mg tablet 2.5 mg PO BID vitamin P52-apxrp acid 2,500-400 mcg tablet,disintegrating 1 tab PO DAILY levothyroxine 125 mcg tablet 125 mcg PO DAILY fluoxetine 10 mg capsule 10 mg PO DAILY cyanocobalamin (vitamin B-12) 1,000 mcg tablet 1,000 mcg PO DAILY Baqsimi 3 mg/actuation spray,non-aerosol 3 mg intranasal DIRECTED PRN naloxone [Narcan] 4 mg/actuation spray,non-aerosol 4 mg intranasal DIRECTED PRN acetaminophen 650 mg tablet extended release 1,300 mg PO Q8H insulin lispro [Humalog KwikPen Insulin] 100 unit/mL insulin pen 1 sliding scale dose subcut TIDWMEAL Qty: 15 0RF Rx Instructions: Blood Glucose 150 or less, no extra insulin. Blood Glucose 151-200, add 2 units to mealtime insulin Blood Glucose 201-250, add 4 units to mealtime insulin Blood Glucose 251-300, add 6 units to mealtime insulin Blood Glucose 301-350, add 8 units to mealtime insulin Blood Glucose 351 to 400, add 10 units to mealtime insulin Blood Glucose 401 and greater, add 12 units to mealtime insulin Changed insulin lispro [Humalog KwikPen Insulin] 100 unit/mL insulin pen 8 unit subcut TIDWMEAL Qty: 4.5 2RF insulin glargine [Lantus Solostar U-100 Insulin] 100 unit/mL (3 mL) Insulin Pen 8 unit subcut DAILY Qty: 15 0RF Discharge Orders: Discharge Order (Routine); Ordered 04/06/24 Ordered By: Rhiannon Car Patient Education: Diabetic Hyperglycemia (DC) Additional Instructions: We've increased your DAILY LONG-ACTING INSULIN to 8 units every morning. We've increased your MEAL TIME SCHEDULED INSULIN to 8 units before your meals. We've kept the SLIDING SCALE THE SAME. Activity Level: Activity as Tolerated Discharge Diet: Diabetic Follow Up Appointments: Barbara Valentin, [Primary Care Provider] - (TODAY - attend your appointment as previously scheduled) Forms: [facility]
[2024-04-06] MEDS: PREGABALIN 100 MG CAPSULE 200 MG PO (10:33)
[2024-04-06] MEDS: FLUOXETINE HCL 10 MG CAPSULE PO (10:34)
--- NOTE | 2024-04-06 10:49 | PC.NURSE ---
Nursing Care Hours: [id number] Pt this shift calm and cooperative, alert and oriented. Pain rated to L heel 12/11. Bandage CDI. Cloudy u/o no odor. VSS. Insulin given per eMAR. Updated insulin plan print out given to pt and sister in law. Discussed with DC paperwork diabetic meals being higher in protein, lower in carbs. Also discussed higher glycemia when ill. Tolerated regular meal. DC work went over with pt and sister in law. Pt wheeled out to sister in law vehicle to get to 1100 appt. IV removed.
== END 2024-04-06 10:40 | disposition home or self-care (01) ==
LOC: ED 17:06 → MEDSURG 19:05
PROVIDERS: Admitting Provider Family Medicine; Emergency Provider Emergency Medicine; PCP Family Medicine; Visit Provider Family Medicine
DX: E11.65 Type 2 diabetes mellitus with hyperglycemia (principal); I13.0 Hypertensive heart and chronic kidney disease with heart failure and stage 1 through stage 4 chronic kidney disease, or unspecified chronic kidney disease; N18.4 Chronic kidney disease, stage 4 (severe); I50.9 Heart failure, unspecified; R82.90 Unspecified abnormal findings in urine; D64.9 Anemia, unspecified; E78.5 Hyperlipidemia, unspecified; K21.9 Gastro-esophageal reflux disease without esophagitis; G47.30 Sleep apnea, unspecified; F32.A Depression, unspecified; Z79.4 Long term (current) use of insulin; E89.0 Postprocedural hypothyroidism; Z98.84 Bariatric surgery status; Z98.891 History of uterine scar from previous surgery; Z98.49 Cataract extraction status, unspecified eye; Z96.649 Presence of unspecified artificial hip joint; Z96.1 Presence of intraocular lens; Z96.651 Presence of right artificial knee joint; Z98.890 Other specified postprocedural states
CPT/HCPCS: 36415; 80048; 80076; 81001; 82803; 82947; 82962; 83605; 84484; 85025; 86140; 87086; 93005; 96360; 96372; 99284; 99285; A9270; G0378; J1815; J7120

== ENCOUNTER 2024-04-12 15:14 | Outpatient (CLI) | payer OTHER, SELFPAY ==
--- OUTSIDE RECORDS SUMMARY | 2024-04-12 15:15 | XMS_ITS | Encounter Summary ---
Author Organization [facility] [place] Address [address] [place] [address] Care Team Providers Care Actuarial Consultant Name Role Phone Barbara Valentin DO Primary Care Provider [phone] Encounter Details Date Type Department Care Team (Late st Contact Info) Description 02/01/2024 Telephone [facility] [place] [address] [place] [address] Gabriel Hicks MD [address] [place] [address] Social History Tobacco Use Types [...] to cancel today's HFU appointment with HEATHER Barbara. This appointment has been canceled. Unable to LVM. Letter sent to patient. documented in this encounter Plan of Treatment Upcoming Encounters Date Type Department Care Team (Late st Contact Info) Description 05/12/2024 Orders Only [facility] [place] [address] [place] [phone] Gabriel Hicks MD [address] [phone] Chronic kidney disease, stage 4 (severe) (HCC) documented as of this encounter Visit Diagnoses Not on filedocumented in this encounter Care Teams Actuarial Consultant Relationship Specialty Start Date End Date Barbara Valentin DO [address] [place] [address] PCP - General Family Medicine 09/22/23 documented as of this encounter
--- OUTSIDE RECORDS SUMMARY | 2024-04-12 15:15 | XMS_ITS | Clinical Summary ---
Author Organization [facility] [place] Address [address] [facility] [place] [address] Phone Care Team Providers Care Sewer Pipe Press Operator Name Role Phone Barbara Valentin DO Primary Care Provider [phone] Allergies Active Allergy Reactions Criticality Noted Date [...] One Pack) 3 MG/DOSE powder Inhale 1 [place] into affected nostril(s) each time if needed [...] Team Description 02/01/2024 Telephone [facility] [place] [address] [facility] [address] [place] [phone] Gabriel Hicks MD 01/23/2024 Documentation Only [facility] [place] [address] [facility] [address] [place] [phone] Ronnell Kirby 01/23/2024 Office Communication [facility] [place] [address] [facility] [address] [place] [phone] Ronnell Kirby from Last 3 Months Immunizations [...] Description 05/12/2024 Orders Only [facility] [place] [address] [place] [address] Gabriel Hicks MD [address] [place] [address] Chronic kidney disease, stage 4 (severe) (HCC) Health Maintenance Due Date Last Done Comments [...] LAB BLOOD ORDERAB LES Performing Organization Address [facility] Co de Phone Number [...] LAB BLOOD ORDERAB LES Performing Organization Address [facility] Co de Phone Number [facility] from Last 3 Months Care Teams Sewer Pipe Press Operator Relationship Specialty Start Date End Date Barbara Valentin DO [address] [place] [address] PCP - General Family Medicine 09/22/23
--- OUTSIDE RECORDS SUMMARY | 2024-04-12 15:15 | XMS_ITS | Encounter Summary ---
Author Organization [facility] [place] Address [address] [place] [address] Care Team Providers Care Rail Flaw Detector Operator Name Role Phone Barbara Valentin DO Primary Care Provider [phone] Encounter Details Date Type Department Care Team (Late st Contact Info) Description 01/23/2024 Office Communication [facility] [place] [address] [place] [address] Ronnell Kirby [address] [place] [address] Social History Tobacco Use Types [...] [facility] [place] [address] [place] [address] Gabriel Hicks MD [address] [place] [phone] Chronic kidney disease, stage 4 (severe) (HCC) documented as of this encounter Visit Diagnoses Not on filedocumented in this encounter Care Teams Rail Flaw Detector Operator Relationship Specialty Start Date End Date Barbara [place] [address] PCP - General Family Medicine 09/22/23 documented as of this encounter
--- OUTSIDE RECORDS SUMMARY | 2024-04-12 15:15 | XMS_ITS | Encounter Summary ---
Author Organization [facility] [place] Address [address] [place] [address] Care Team Providers Care Histology Aide Name Role Phone Barbara Valentin DO Primary Care Provider [phone] Encounter Details Date Type Department Care Team (Late st Contact Info) Description 09/22/2023 Documentation Only [facility] [place] [address] [place] [address] No, Pcp Social History Tobacco [...] Orders Only [facility] [place] [address] Gabriel Hicks MD [address] [place] [address] Chronic kidney disease, stage 4 (severe) (HCC) documented as of this encounter Visit Diagnoses Not on filedocumented in this encounter Care Teams Histology Aide Relationship Specialty Start Date End Date Barbara [place] [address] PCP - General Family Medicine 09/22/23 documented as of this encounter
--- OUTSIDE RECORDS SUMMARY | 2024-04-12 15:15 | XMS_ITS | Encounter Summary ---
Author Organization [facility] [place] Address [address] [place] [address] Care Team Providers Care Blanching Machine Operator Name Role Phone Barbara Valentin DO Primary Care Provider [phone] Encounter Details Date Type Department Care Team (Late st Contact Info) Description 01/23/2024 Documentation Only [facility] [place] [address] [place] [address] Ronnell Kirby [address] [place] [address] Social History Tobacco Use Types [...] [facility] [place] [address] [place] [phone] Gabriel Hicks MD [address] [facility] [place] [address] Chronic kidney disease, stage 4 (severe) (HCC) documented as of this encounter Procedures Procedure [...] LAB BLOOD ORDERAB LES Performing Organization Address [facility] Co de Phone Number [facility] * (ABNORMAL) Creatine (01/16/2024) Creatine, Serum 1.28(H) [facility] GFR Calculated 47(L) [facility] Blood (Blood, Venous) 01/16/2024 Historical Provider MD LAB BLOOD ORDERAB LES Performing Organization Address [facility] Co de Phone Number [facility] * (ABNORMAL) Creatine (01/15/2024) Creatine, Serum 1.71(H) [facility] GFR Calculated 34(L) [facility] Blood (Blood, Venous) 01/15/2024 Historical Provider MD LAB BLOOD ORDERAB LES Performing Organization Address [facility] Co de Phone Number [facility] * (ABNORMAL) Hemoglobin (01/15/2024) Hemoglobin 8.4(L) g/dL [facility] MCV 91.0 [facility] Blood (Blood, Venous) 01/15/2024 Historical Provider MD LAB BLOOD ORDERAB LES Performing Organization Address [facility] Co de Phone Number [...] LAB BLOOD ORDERAB LES Performing Organization Address [facility]/ZIP Co de [...] LAB BLOOD ORDERAB LES Performing Organization Address [facility] de Phone Number [facility] * (ABNORMAL) Basic Metabolic Panel (BMP) (01/13/2024) Sodium 143 mEq/L [facility] Potassium 4.6 mEq/L [facility] Chloride 111(H) [facility] Carbon Dioxide 21(L) mmol/L [facility] Calcium 8.0(L) mg/dL [facility] BUN 65(H) mg/dL [facility] Creatinine 3.10(H) mg/dL [facility] Glucose 143(H) mg/dL [facility] eGFR 16(L) [facility] Anion Gap 11 [facility] 01/13/2024 Historical Provider MD LAB BLOOD ORDERAB LES Performing Organization Address [facility] Co de Phone Number [...] Anion Gap 20(H) [facility] 01/12/2024 Historical Provider MD LAB BLOOD ORDERAB LES [place] documented in this encounter Visit Diagnoses Not on filedocumented in this encounter Care Teams Blanching Machine Operator Relationship Specialty Start Date End Date Barbara Valentin DO [address] [place] [address] PCP - General Family Medicine 09/22/23 documented as of this encounter
--- OUTSIDE RECORDS SUMMARY | 2024-04-12 15:16 | XMS_ITS | Clinical Summary ---
Author Organization [employer] [facility] s & [facility] Address [place], [place] [address] Care Team Providers Care Atomic Spectroscopist Name Role Phone Julio Ibrahim MD Unavailable [phone] Chuy Doss MD Unavailable Markel Strong MD Unavailable Nikolai Ibarra MD Unavailable Barbara Valentni DO Primary Care Provider [phone] [facility] Unavailable Allergies Active Allergy Reactions Criticality Noted [...] mellitus at risk of hypoglycemia Inhale 1 [place] into affected nostril(s) each time if needed for Severe Hypoglycemia. Roll on side and call 911 after administration. 2 Each 11 12/25/19 Active fluticasone (50 mcg per actuation) nasal solution (FLONASE)Indicati ons:Nasal congestion Inhale 1 [place] into affected nostril(s) once daily. Inhale 1 [place] in the nostril(s) once daily. 16 g 01/12/20 Active CPAPIndications:S casperstephen obstructive sleep apnea CPAP machine for home [...] of use: Daily 1 Each 09/22/19 Active naloxone (NARCAN) 4 mg/actuation nasal sprayIndications: Chronic, continuous use of opioids [The details of the medication are not available because there are pending changes by a home health clinician.] 2 Each 2 01/29/20 Active Additional Information Patient not taking.Reason: See Comment (Duplicate order), Informant: Patient's Med List, Reported on 04/12/2024 sennosides-docusa te (Stool Softener-Stimulan t Laxat) (8.6-50 mg) tabletIndications :Chronic constipation TAKE TWO TABLETS BY MOUTH TWO TIMES DAILY NEEDED FOR CONSTIPATION. 360 Tablet 2 04/20/20 Active continuous glucose monitor READER (FreeStyle Elli 2 [place])Indication s:Type 1 diabetes mellitus with other specified complication (HC) To be used to read blood sugars per migratory worker's directions. 1 Each 05/19/20 Active blood-glucose [...] be used to read blood sugars per migratory worker's directions. 6 Each 3 09/06/19 24 [...] dry, clean, hairless skin once weekly. Active acetaminophen (TYLENOL) 325 mg tabletIndications :Opioid [...] Chronic, continuous use of opioids Inhale 1 [place] into affected nostril(s) each time if needed [...] DAILY. 60 Capsule 01/13/20 24 024 Discontinued losartan (COZAAR) 25 mg tablet Take 12.5 mg by mouth once daily. 024 Discontinued(*P atient states no longer taking) pregabalin (LYRICA) 100 mg capsuleIndication s:Chronic pain syndrome Take 1 Capsule (100 mg) by mouth two times daily. 01/17/20 24 Discontinued(*M edication adjustment) DULoxetine (CYMBALTA) 60 mg [...] agreement signed - 10/07/23 10/07/2023 Overview (10/07/2023): [facility] Noemí Dennis .................... 10/07/2023 4:39 [...] hypoxia which led to extended stay in halfway care 07/2015- 05/2017 Hospitalized with ketoacidosis 06/2017 [...] Encounters Date Type Department Care Team Description 04/12/2024 9:00 AM CDT Home Care Visit [facility] [address] [place] [address] Geneva Sanchez, RN SN - OASIS START OF CARE 04/12/2024 Patient Outreach [facility] Management - Care Management Navigation/[facility] [address] [place] [address] [facility] Guide Breast [facility] Screening outreach/) 04/12/2024 Plan of Care Documentation [facility] [address] [place] [phone] 04/09/2024 Patient Outreach [facility] Management - Care Management Navigation/[facility] [address] [place] [address] [facility] (Care Guide Breast Cancer Screening outreach/) 04/09/2024 Home Care Visit [facility] [address] [place] [address] Elvi Meyers RN CARE COORDINATION 04/06/2024 11:25 AM CDT Office Visit [facility] [address] [place] [address] Barbara Valentin, DO Hospital F/U (Hypoglycemia - ER/hospital 03/29, 04/06 ) 04/06/2024 Orders Only [facility] [address] [place] [address] iNkolai bIarra MD <No scans attached> 04/06/2024 Travel 04/04/2024 Refill [facility] [address] [place] [address] Sir Valentini Patricia, DO Refill Request (Amlodipine, Omeprazole) 03/27/2024 Telephone [facility] [address] [place] [address] Barbara Valentin, DO Questions 03/16/2024 Refill [facility] [address] [place] [address] Toshia Hooks NP Refill Request 03/14/2024 10:30 AM CDT Home Care Visit [facility] [address] [place] [phone] Geneva Sanchez, LOS SN - OASIS DISCHARGE 03/12/2024 Refill [facility] [address] [place] [address] Barbara Valentin, DO Refill Request (Pregabalin, Fluoxetine, Duloxetine) 03/06/2024 10:00 AM CDT Home Care Visit [facility] [address] [place] [phone] Geneva Sanchez RN SN - HOME VISIT 03/06/2024 9:15 AM CDT Home Care Visit [place] [address] [place] [phone] Alex Contreras RAG BOILER - HOME VISIT 03/03/2024 Home Care Visit [facility] [address] [place] [phone] Nitza Riojas LISW CARE COORDINATION 02/28/2024 2:00 PM CDT Home Care Visit [facility] [address] [place] [phone] Shania Elaine, RN SN - HOME VISIT 02/28/2024 10:45 AM CDT Home Care Visit [facility] [address] [place] [phone] Fabiola Mathis RAG BOILER - HOME VISIT 02/25/2024 Home Care Visit [facility] [address] [place] [phone] Nitza Riojas LISW CARE COORDINATION 02/22/2024 3:00 PM CDT Home Care Visit [facility] [address] [place] [phone] Trini Hitchcock, LOS SN - HOME VISIT 02/22/2024 Home Care Visit [facility] [address] [place] [phone] Dar Phillips, OT OT - DISCIPLINE DISCHARGE 02/21/2024 9:45 AM CDT Home Care Visit [facility] [address] [place] [phone] Alex Contreras RAG BOILER - HOME VISIT 02/20/2024 Home Care Visit [facility] [address] [place] [phone] Nitza Riojas LISW ORTHOTIC AIDE - INITIAL ASSESSMENT 02/16/2024 Refill [facility] [address] [place] [address] Toshia Hooks NP Refill Request (oxyCODONE (ROXICODONE) 5 mg immediate release tablet ) 02/15/2024 3:45 PM CDT Home Care Visit [facility] [address] [place] [phone] Coleman Greene, PT PT - DISCIPLINE DISCHARGE 02/15/2024 11:00 AM CDT Home Care Visit [facility] [address] [place] [phone] Geneva Sanchez, LOS SN - HOME VISIT 02/14/2024 12:00 PM CDT Home Care Visit [facility] [address] [place] [phone] Joi Moreno VARELA OT - HOME VISIT 02/14/2024 8:15 AM CDT Home Care Visit [facility] [address] [place] [phone] Fabiola Mathis RAG BOILER - HOME VISIT 02/10/2024 3:30 PM CDT Home Care Visit [facility] [address] [place] [phone] Joi Moreno VARELA OT - HOME VISIT 02/10/2024 Home Care Visit [facility] [address] [place] [phone] Nitza Riojas LISW ORTHOTIC AIDE - CASE COMMUNICATION 02/09/2024 Refill [facility] [address] [place] [address] Sir Valentini Patricia, DO Refill Request (Duloxetine) 02/08/2024 3:00 PM CDT Home Care Visit [facility] [address] [place] [address] Veda Resendiz, RN SN - WOUND/OSTOMY CHART CONSULT 02/08/2024 9:00 AM CDT Home Care Visit [facility] [address] [place] [address] Geneva Sanchez, LOS SN - HOME VISIT 02/08/2024 Telephone [facility] [address] [place] [address] Barbara Valentin, DO Pharmacist Medication Management (MEDICATION CHANGE) 02/08/2024 Telephone [facility] [address] [address] Geneva Sanchez, roof tile layer List Update 02/07/2024 4:00 PM CDT Home Care Visit [facility] [address] [place] [address] Joi Moreno COTA OT - HOME VISIT 02/07/2024 9:30 AM CDT Home Care Visit [facility] [address] [place] [address] Kendal Serna, PT PT - HOME VISIT 02/07/2024 Telephone [facility] [address] [place] [address] Sir Valentini Patricia, DO Refill Request (Insulin lispro pens) 02/04/2024 Refill [facility] [address] [place] [address] Saúlqra Barbara Patricia, DO Refill Request (Insulin Lispro) 02/03/2024 9:00 AM CDT Home Care Visit [facility] [address] [facility] [place] [address] Joi Moreno, VARELA OT - HOME VISIT 02/02/2024 11:00 AM CDT Home Care Visit [facility] [address] [facility] [place] [address] Kendal Serna, PT PT - HOME VISIT 02/01/2024 4:00 PM CDT Home Care Visit [facility] [address] [facility] [place] [address] Joi Moreno, VARELA OT - HOME VISIT 01/31/2024 9:30 AM CDT Home Care Visit [facility] [address] [place] [address] Fabiola Mathis RAG BOILER - HOME VISIT 01/31/2024 Home Care Visit [facility] [address] [place] [address], [place] [address] Oumou Burns, LOS CARE COORDINATION 01/31/2024 Home Care Visit [facility] [address] [place] [address], [place] [address] Oumou Burns, LOS CARE COORDINATION 01/30/2024 10:45 AM CDT Home Care Visit [facility] [address] [place] [address], [place] [address] Kendal Serna, PT PT - HOME VISIT 01/30/2024 9:00 AM CDT Home Care Visit [facility] [address] [place] [address], [place] [address] Geneva Sanchez, RN SN - INITIAL ASSESSMENT 01/25/2024 1:30 PM CDT Home Care Visit [facility] [address] [place] [address], [place] [address] Coleman Greene, PT PT - HOME VISIT 01/25/2024 Travel 01/24/2024 1:00 PM CDT Home Care Visit [facility] [address] [place] [phone] Dar Phillips, JOHN OT - INITIAL ASSESSMENT 01/24/2024 9:30 AM CDT Home Care Visit [facility] [address] [place] [address] Fabiola Mathis RAG BOILER - HOME VISIT 01/24/2024 Home Care Visit [facility] [address] [place] [address] Narcisa Atkinson, RN CARE COORDINATION 01/23/2024 Home Care Visit [facility] [address] [place] [address] Narcisa Atkinson, RN CARE COORDINATION 01/20/2024 Refill [facility] [address] [place] [address] Toshia Hooks NP Refill Request 01/18/2024 1:45 PM CDT Home Care Visit [facility] [address] [place] [address] Kendal Serna, PT PT - OASIS START OF CARE 01/18/2024 10:30 AM CDT Phone Office Visit [facility] [address] [facility] [address] [place] [address] Nikolai Ibarra MD 01/18/2024 Plan of Care Documentation [address] [phone] 01/18/2024 Patient Outreach [facility] [address] [place] [address] Maria R Ho, RN Primary RN Care Management; Hospital F/U (Lace 44) 01/18/2024 Travel 01/12/2024 9:13 PM CDT - 01/17/2024 5:23 PM CDT Hospital Encounter [facility] [address] [place] [address] Emily Guzman MD Litell, DO Chente Honeycutt, MD Dusty Manjarrez, MD Ricky Alston, Helder Hoover MD [facility], w Hospitalists Of Opioid dependence, uncomplicated (HC) (Primary [...] ODERNA 50MCG/0.5ML) 12YO+ PFS 04/06/2024 COVID-19 vaccine (Appetise-Bio NTech 30mcg/0.3mL) 12YO+ BIVALENT PF, MDV 04/28/2022 COVID-19 vaccine (Appetise-Bio NTech 30mcg/0.3mL) PF, MDV 06/23/2021 Hepatitis B [...] Sign Reading Time Taken Comments Blood Pressure 161/77 04/12/2024 9:41 AM CDT Pulse 75 04/12/2024 9:36 AM CDT Temperature 36.8 ??C (98.2 ??F) 04/12/2024 9:36 AM CD T Respiratory Rate 18 03/14/2024 10:45 AM CDT Oxygen Saturation 94% 04/12/2024 9:36 AM CDT Inhaled Oxygen Concentration - - Weight 85.5 kg (188 lb 6.4 oz) 04/12/2024 9:41 A M CDT Height 152.4 cm (5') 01/12/2024 9:27 PM CDT Body Mass Index 36.79 01/12/2024 9:27 PM CDT Plan of Treatment Upcoming Encounters Date Type Department Care Team (Late st Contact Info) Description 04/13/2024 11:00 AM CDT Office Visit [facility] [address] [facility] [address] Barbara Valentin Patricia, DO [address] [place] [address] 04/20/2024 3:00 PM CDT Phone Office Visit [facility] [address] [place] [phone] Romina Pro, LOS [address] [facility] [address] [place] [phone] 05/04/2024 3:00 PM CDT Office Visit [facility] [address] [place] [address] Barbara Valentin Patricia, DO [address] [place] [address] 05/04/2024 3:30 PM CDT Phone Office Visit [facility] [address] [place], [place] [phone] Nikolai Ibarra MD [address] [place], [place] [phone] Health Maintenance Due Date Last Done Comments [...] 03/18/2020, Additional history exists Fecal testing sDNA-FIT ([place] guard) for age 45-75 11/10/2024 11/10/2021 Pneumococcal series for age 6-64 (3 of 3 - PPSV23 or PCV20) 2026 08/17/2016, 08/14/2014, 07/04/2005, Additional history exists Lipids for age 45-75 04/28/2027 04/28/2022, 08/17/2019, 08/31/2018, Additional history exists Tdap Completed 08/25/2010 HIV for age 15-65 Completed 07/21/2015 Hepatitis C screening for ag e 18-79 Completed 02/16/2018 COVID-19 vaccine series Completed 04/06/20, 04/28/2022, 06/23/2021, Additional history exists Medical Devices Implanted Type Area Control Area Operator Device Identifier Shelf Expiration Date Model / Serial / Lot [id number] 2x12mm [[id number]] Implanted:Qty: 1 on 08/08/2008 at [facility] Explanted:at [facility] (Quantity not on file) [employer] [id number]# / [id number] / Stem Compnt Primary 8mm Mini - [id number] Implanted:Qty: 1 on 03/17/2011 at [facility] Right: Shoulder BIOMET [id number]# / / [id number] Head Hum Bio-Mod [id number] - [id number] Implanted:Qty: 1 on 03/17/2011 at [facility] Right: Shoulder BIOMET [id number]# / / [id number] Base Glenoid Hybrid 4mm Sm - [id number] Implanted:Qty: 1 on 03/17/2011 at [facility] Right: Shoulder BIOMET [id number]# / / [id number] Cmnt 1/2 [employer] - [id number] Implanted:Qty: 1 on 03/17/2011 at [facility] Right: Shoulder [employer] 6188-1-01 0# / / [id number] Post Glenoid Hybrid Regenerex - [id number] Implanted:Qty: 1 on 03/17/2011 at [facility] Right: Shoulder BIOMET [id number] # / / [id number] Head Humeral 44x15 Co Cr Biomodular - [id number] Implanted:Qty: 1 on 07/12/2012 at [facility] Left: Shoulder BIOMET [id number]# / / [id number] Shoulder Stem Implanted:Qty: 1 on 07/12/2012 at [facility] Left: Shoulder [id number] / / [id number] Description:SHOULDER STEM Cmnt Bone 1/2 [employer] - [id number] Implanted:Qty: 1 on 07/12/2012 at [facility] Left: Shoulder [employer] 6188-1-01 0# / / [id number] Post Glenoid Hybrid Regenerex - [id number] Implanted:Qty: 1 on 07/12/2012 at [facility] Left: Shoulder BIOMET PT-[id number] # / / [id number] Base Glenoid Hybrid 4mm Sm - [id number] Implanted:Qty: 1 on 07/12/2012 at [facility] Left: Shoulder BIOMET [id number]# / / [id number] Procedures Procedure Name Priority Date/Time Associated Diagnosis [...] HIV 1/2 Add On 07/21/2015 9:40 AM POND SAWYER 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 [address], [place] * (ABNORMAL) CREATININE (01/17/2024 8:20 AM CDT) Only the most recent of3 resultswithin the time period is included. [facility] eGFR 47(L) >90 mL/min/1.7 3m2 01/17/2024 9:06 AM CDT [facility] Comment:As of 2021, eG FR is calculated by the CKD-EPI creatinine equation without race adjustment. ??eGFR can be influenced by muscle mass, exercise, and diet. ??The reported eGFR is an estimation only and is only applicable if the renal function is stable. CREATININE 1.28(H) 0.50 - 0.90 mg/dL 01/17/2024 9:06 AM CDT [facility] Blood BLOOD SPECIMEN / Unknown Non-Lab Venipuncture / Unknown 01/17/2024 8:20 AM CDT 01/17/2024 8:26 AM CDT Helder García MD CHEMISTRY Performing Organization Address City/[facility] Co de Phone Number [facility] [address] [place] [address], [place] * PHOSPHORUS (01/17/2024 8:20 AM CDT) Only the most recent of5 resultswithin the time period is included. [facility] PHOSPHORUS 2.6 2.5 - 4.5 mg/dL 01/17/2024 9:06 AM CDT [facility] Blood BLOOD SPECIMEN / Unknown Non-Lab Venipuncture / Unknown 01/17/2024 8:20 AM CDT 01/17/2024 8:26 AM CDT Sarah Betancourt RN CHEMISTRY Performing Organization Address City/[facility]/ZIP Co de Phone Number [facility] [address] [place] [address], * (ABNORMAL) BASIC METABOLIC PANEL (01/17/2024 8:20 AM CDT) Only the most recent of5 resultswithin the time period is included. [facility] SODIUM 139 136 - 145 mmol/L 01/17/2024 12:35 PM T [facility] POTASSIUM 3.9 3.5 - 5.1 mmol/L 01/17/2024 12:35 PM T [facility] CHLORIDE 103 98 - 107 mmol/L 01/17/2024 12:35 PM [facility] CO2,TOTAL 24 22 - 29 mmol/L 01/17/2024 12:35 PM [facility] ANION GAP 12 5 - 18 01/17/2024 12:35 PM T [facility] GLUCOSE 162(H) 70 - 99 mg/dL 01/17/2024 12:35 PM [facility] CALCIUM 8.7(L) 8.8 - 10.2 mg/dL 01/17/2024 12:35 PM [facility] BUN 17 8 - 23 mg/dL 01/17/2024 12:35 PM [facility] CREATININE 1.31(H) 0.50 - 0.90 mg/dL 01/17/2024 12:35 PM [facility] BUN/CREAT RATIO 13 10 - 20 4 12:35 PM [facility] eGFR 46(L) >90 mL/min/1.7 3m2 01/17/2024 12:35 PM [facility] Comment: As of [...] Helder García MD CHEMISTRY Performing Organization Address [facility] Co de Phone Number [facility] [address] * CLOSTRIDIOIDES DIFFICILE TOXIN PCR (01/16/2024 12:27 PM CDT) CLOSTRIDIUM DIFFICILE PCR Negative 01/16/2024 2:18 PM CDT [facility] PRESUMPTIVE NAP1 STRAIN Negative 01/16/2024 2:18 PM CDT [facility] Stool STOOL SPECIMEN / Unknown Non-Blood / Unknown 01/16/2024 12:27 PM CDT 01/16/2024 12:51 PM CDT Narrative [facility] - 01/16/2024 2:18 PM CDT The NAP1 (027 or BI) strain is a hypervirulent strain. Detection may be useful for epidemiological purposes. Helder García MD MICROBIOLOGY Performing Organization Address [facility] Co de Phone Number [facility] [address] * SCAN CORRESP-EKG RESULTS (01/16/2024 9:07 AM [...] Fabrizio Montano MD HEMATOLOGY Performing Organization Address City/[facility]/ZIP Co de Phone Number [facility] [address] [place] [address], [place] * VANCOMYCIN (01/16/2024 6:30 AM CDT) Only the most recent of3 resultswithin the time period is included. VANCOMYCIN 13.0 ug/mL 01/16/2024 7:42 AM CDT [facility] Comment:No Reference Range D efined. DATE OF LAST DOSE,RANDOM Not Given 01/16/2024 7:42 AM CDT [facility] TIME OF LAST DOSE,RANDOM Not Given 01/16/2024 7:42 AM CDT [facility] Blood BLOOD SPECIMEN / Unknown Venipuncture / Unknown 01/16/2024 6:30 AM CDT 01/16/2024 6:58 AM CDT Barbara Holcomb NP CHEMISTRY Performing Organization Address [facility] Co de Phone Number [facility] [address] [place] [address], [place] * (ABNORMAL) PLATELET COUNT (01/15/2024 6:02 AM CDT) PLATELET COUNT 166 140 - 440 thou/cu mm 01/15/2024 6:44 AM CDT [facility] MPV 11.2(H) 6.5 - 11.0 fL 01/15/2024 6:44 AM CDT [facility] Blood BLOOD SPECIMEN / Unknown Venipuncture / Unknown 01/15/2024 6:02 AM CDT 01/15/2024 6:26 AM CDT Fabrizio Montano MD HEMATOLOGY Performing Organization Address City/[facility]/ZIP Co de Phone Number [facility] [address] [place] [address], [place] * WHITE BLOOD COUNT (01/15/2024 6:02 [...] Fabrizio Montano MD HEMATOLOGY Performing Organization Address City/[facility]/ZIP Co de Phone Number [facility] [address] [place] [address], [place] * Sodium AM (01/15/2024 6:02 AM CDT) SODIUM 142 136 - 145 mmol/L 01/15/2024 7:13 AM CDT [facility] Blood BLOOD SPECIMEN / Unknown Venipuncture / Unknown 01/15/2024 6:02 AM CDT 01/15/2024 6:27 AM CDT Fabrizio Montano MD CHEMISTRY Performing Organization Address City/[facility]/ZIP Co de Phone Number [facility] [address] [place] [id number], [place] * Potassium AM (01/15/2024 6:02 AM CDT) Only the most recent of3 resultswithin the time period is included. POTASSIUM 4.4 3.5 - 5.1 mmol/L 01/15/2024 7:13 AM CDT [facility] Blood BLOOD SPECIMEN / Unknown Venipuncture / Unknown 01/15/2024 6:02 AM CDT 01/15/2024 6:27 AM CDT Fabrizio Montano MD CHEMISTRY [facility] [address] [place] [address], * SCAN-CARDIAC STRIP (01/14/2024 7:07 AM CDT) Scanner OTHER * (ABNORMAL) CBC W PLT NO DIFF (01/14/2024 5:28 AM CDT) WHITE BLOOD COUNT 8.5 4.5 - 11.0 thou/cu mm 01/14/2024 6:33 AM CDT [facility] RED BLOOD COUNT 3.04(L) 4.00 - 5.20 mil/cu mm 01/14/2024 6:33 AM CDT [facility] HEMOGLOBIN 8.9(L) 12.0 - 16.0 g/dL 01/14/2024 6:33 AM CDT [facility] HEMATOCRIT 27.5(L) 33.0 - 51.0 % 01/14/2024 6:33 AM CDT [facility] MCV 91 80 - 100 fL 01/14/2024 6:33 AM CDT [facility] MCH 29.3 26.0 - 34.0 pg 01/14/2024 6:33 AM CDT [facility] MCHC 32.4 32.0 - 36.0 g/dL 01/14/2024 6:33 AM CDT [facility] RDW 14.4 11.5 - 15.5 % 01/14/2024 6:33 AM CDT [facility] PLATELET COUNT 198 140 - 440 thou/cu mm 01/14/2024 6:33 AM CDT [facility] MPV 11.4(H) 6.5 - 11.0 fL 01/14/2024 6:33 AM CDT [facility] NRBC 0.0 % 01/14/2024 6:33 AM CDT [facility] ABS NRBC 0.0 thou /cu mm 01/14/2024 6:33 AM CDT [facility] Blood BLOOD SPECIMEN / Unknown Non-Lab Venipuncture / Unknown 01/14/2024 5:28 AM CDT 01/14/2024 6:31 AM CDT Barbara Holcomb NP HEMATOLOGY Performing Organization Address [facility] Co de Phone Number [facility] [address] [place] [address], * (ABNORMAL) [facility]UM [facility]ONIZED [facility]PITAL DRAW ONLY (01/14/2024 5:28 AM CDT) Only the most recent of3 resultswithin the time period is included. Pathologist [facility] CALCIUM,IONIZE D 1.30(H) 1.15 - 1.27 mmol/L 01/14/2024 6:03 AM CDT [facility] Blood BLOOD SPECIMEN / Unknown Non-Lab Venipuncture / Unknown 01/14/2024 5:28 AM CDT 01/14/2024 5:49 AM CDT Grace Eldridge MD CHEMISTRY Performing Organization Address [facility] Co de Phone Number [facility] [address] [place] [address], * ECHO TTE COMPLETE W CONTRAST (01/13/2024 3:56 PM CDT) Pathologist [facility] AORTIC VALVE MEAN PG 7 mmHg EJECTION FRACTION 64 % LVEDD 4.1 cm EJECTION FRACTION 60 - 65% Anatomical Region Laterality Modality Ultrasound 01/13/2024 2:53 PM CDT Narrative 01/13/2024 4:39 PM CDT ECHOCARDIOGRAM ALIDA JONESWIN ? Accession#: ?? [id number] : ?1960 63 years Study Date: ?? 01/13/2024 2:53:14 PM Gender: F ?BP: ? 114/44 mmHg Height: 152.00 cm ?BSA: ?1.93 m? ? ? Weight: 98.00 kg ? Tech: ? KBA ? Referring MD: BARBARA HOLCOMB Site: ? [facility] Reading Location: ANW IP Patient [...] 2 ml diluted Definity, lot #[id number], [facility]# [id number] was administered peripherally to enhance visualization of all left ventricular segments. . This study was interpreted by an [facility] accredited facility. ??Final ?? Procedure Note Travon Blood MD - 01/13/2024 ECHOCARDIOGRAM ALIDA KUHN : 1960 63 years Study Date: 01/13/2024 2:53:14 PM Gender: F BP: 114/44 mmHg Height: 152.00 cm BSA: 1.93 m? ? ? Weight: 98.00 kg Tech: PASQUALE Referring MD: BARBARA HOLCOMB Site: [facility] Reading Location: ANW IP Patient [...] 2 ml diluted Definity, lot #[id number], [facility]#[id number] was administered peripherally to enhance visualization of allleft ventricular segments. . This study was interpreted by an [facility] accredited facility. Final Barbara Holcomb LAY OUT DRAFTER ECHO ORD * US ARTERIAL LOWER EXTREMITY [...] 125 mmHg Left Brachial: 111 mmHg Right PROFESSOR OF BIBLICAL STUDIES: Noncompressible Right DPA: 115 mmHg (SAMUEL 0.92) Left PROFESSOR OF BIBLICAL STUDIES: Noncompressible Left DPA: Noncompressible SAMUEL: 1.0-1.4 - normal 0.9-0.99 - borderline 0.80-0.89 - mild 0.50-0.79 - moderate 0.30-0.49 - severe < 0.30 - critical RIGHT: TESTING AND REGULATING CHIEF PROX: 204 cm/sec; triphasic waveforms TESTING AND REGULATING CHIEF DIST: 138 cm/sec; triphasic waveforms PFA: 97 cm/sec; triphasic waveforms SFA PROX: 140, 111 cm/sec; triphasic waveforms SFA MID: 113, 74 cm/sec; triphasic waveforms SFA DIST: 107, 113 cm/sec; triphasic waveforms POP PROX: 105 cm/sec; triphasic waveforms POP DIST: 89 cm/sec; triphasic waveforms PROFESSOR OF BIBLICAL STUDIES: 32 cm/sec; triphasic waveforms KAITLYN: 58 cm/sec; triphasic waveforms DPA: 56 cm/sec; triphasic waveforms LEFT: TESTING AND REGULATING CHIEF PROX: 193 cm/sec; triphasic waveforms TESTING AND REGULATING CHIEF DIST: 152 cm/sec; triphasic waveforms PFA: 98 cm/sec; triphasic waveforms SFA PROX: 119, 109 cm/sec; triphasic waveforms SFA MID: 103, 102 cm/sec; triphasic waveforms SFA DIST: 103, 100 cm/sec; triphasic waveforms POP PROX: 124 cm/sec; triphasic waveforms POP DIST: 85 cm/sec; triphasic waveforms PROFESSOR OF BIBLICAL STUDIES: 169 cm/sec; triphasic waveforms KAITLYN: 91 cm/sec; [...] 125 mmHg Left Brachial: 111 mmHg Right PROFESSOR OF BIBLICAL STUDIES: Noncompressible Right DPA: 115 mmHg (SAMUEL 0.92) Left PROFESSOR OF BIBLICAL STUDIES: Noncompressible Left DPA: Noncompressible SAMUEL: 1.0-1.4 - normal 0.9-0.99 - borderline 0.80-0.89 - mild 0.50-0.79 - moderate 0.30-0.49 - severe < 0.30 - critical RIGHT: TESTING AND REGULATING CHIEF PROX: 204 cm/sec; triphasic waveforms TESTING AND REGULATING CHIEF DIST: 138 cm/sec; triphasic waveforms PFA: 97 cm/sec; triphasic waveforms SFA PROX: 140, 111 cm/sec; triphasic waveforms SFA MID: 113, 74 cm/sec; triphasic waveforms SFA DIST: 107, 113 cm/sec; triphasic waveforms POP PROX: 105 cm/sec; triphasic waveforms POP DIST: 89 cm/sec; triphasic waveforms PROFESSOR OF BIBLICAL STUDIES: 32 cm/sec; triphasic waveforms KAITLYN: 58 cm/sec; triphasic waveforms DPA: 56 cm/sec; triphasic waveforms LEFT: TESTING AND REGULATING CHIEF PROX: 193 cm/sec; triphasic waveforms TESTING AND REGULATING CHIEF DIST: 152 cm/sec; triphasic waveforms PFA: 98 cm/sec; triphasic waveforms SFA PROX: 119, 109 cm/sec; triphasic waveforms SFA MID: 103, 102 cm/sec; triphasic waveforms SFA DIST: 103, 100 cm/sec; triphasic waveforms POP PROX: 124 cm/sec; triphasic waveforms POP DIST: 85 cm/sec; triphasic waveforms PROFESSOR OF BIBLICAL STUDIES: 169 cm/sec; triphasic waveforms KAITLYN: 91 cm/sec; [...] 01/14/2024 2:34:58 AM (Electronically Signed) Barbara Holcomb LAY OUT DRAFTER US * XR FOOT 3 VIEWS LEFT [...] CDT) CULTURE RESULT(A) 01/16/2024 2:44 PM CDT [facility] CULTURE 3+ Corynebacterium striatum 01/16/2024 2:44 PM CDT [facility] CULTURE 2+ Mixed oni present 01/16/2024 2:44 PM CDT [facility] GRAM STAIN No PMNs 01/16/2024 2:44 PM CDT [facility] N[facility]AL LAB[facility] GRAM STAIN 2+ RBCs 01/16/2024 2:44 PM CDT [facility] GRAM STAIN No Epithelial cells 01/15 2:44 PM CDT [facility] GRAM STAIN 2+ Gram Positive Bacilli 01/16/2024 2:44 PM CDT [facility] Other (Other) Non-Blood / Unknown 01/13/2024 11:49 AM CDT 01/13/2024 12:00 PM CDT Narrative [facility] - 01/16/2024 2:44 PM CDT Mixed oni; No Staphylococcus aureus, beta-Streptococcus, Streptococcus pneumoniae, or Pseudomonas aeruginosa isolated. Freya Schafer NP MICROBIOLOGY [facility] [address] [place] [address], [place] * ANAEROBIC CULTURE (01/13/2024 11:49 AM CDT) CULTURE No anaerobes isolated 01/19/2024 10:01 AM CDT [facility] Other (Other) Non-Blood / Unknown 01/13/2024 11:49 AM CDT 01/13/2024 12:00 PM CDT Freya Schafer NP MICROBIOLOGY Performing Organization Address [facility] Co de Phone Number [facility] [address] [place] [address], * (ABNORMAL) Electrolytes Panel - DKA (01/13/2024 10:53 AM CDT) Only the most recent of3 resultswithin the time period is included. [facility] SODIUM 140 136 - 145 mmol/L 01/13/2024 [...] Ifeanyi Hernández RN CHEMISTRY Performing Organization Address [facility] Co de Phone Number [facility] [address] [place] [address], * SCAN-CARDIAC STRIP (01/13/2024 8:00 AM CDT) Scanner OTHER * MAGNESIUM (01/13/2024 4:22 AM CDT) Only the most recent of2 resultswithin the time period is included. [facility] MAGNESIUM 1.9 1.6 - 2.4 mg/dL 01/13/2024 5:07 AM CDT [facility] Blood BLOOD SPECIMEN / Unknown Non-Lab Venipuncture / Unknown 01/13/2024 4:22 AM CDT 01/13/2024 4:41 AM CDT Ifeanyi Hernández RN CHEMISTRY Performing Organization Address [facility] Co de Phone Number [facility] [address] [place] [address], [place] * (ABNORMAL) Serum Glucose - DKA (01/13/2024 1:52 AM CDT) Only the most recent of2 resultswithin the time period is included. [facility] GLUCOSE,RANDOM 459(H) 70 - 139 mg/dL 01/13/2024 2:46 AM CDT [facility] Blood BLOOD SPECIMEN / Unknown Non-Lab Venipuncture / Unknown 01/13/2024 1:52 AM CDT 01/13/2024 2:03 AM CDT Emily Guzman MD CHEMISTRY Performing Organization Address [facility] de Phone Number [facility] [address] [place] [address], [place] * (ABNORMAL) TROPONIN T (HS) ONE TIME (01/12/2024 11:39 PM CDT) [facility] TROPONIN T HS 45(H) 6-10 ng/L ng/L 01/13/2024 12:22 AM CDT [facility] Blood BLOOD SPECIMEN / Unknown Non-Lab Venipuncture / Unknown 01/12/2024 11:39 PM CDT 01/12/2024 11:45 PM CDT Emily Guzman MD CHEMISTRY Performing Organization Address [facility] Co de Phone Number [facility] [address] [place] [address], [place] * 12 Lead EKG (01/12/2024 10:16 [...] NOW QTc 456 ms BEYOND NOW P [place] 72 degrees BEYOND NOW R [place] -31 degrees BEYOND NOW T [place] 69 degrees BEYOND NOW 01/12/2024 10:1 6 PM CDT 01/13/2024 8:20 PM CDT Emily Guzman MD EKG ORD BEYOND NOW [place], [place] * MRSA/SA PCR (01/12/2024 10:07 PM CDT) Pathologist [facility] MRSA DNA PCR Negative Negative 01/12/2024 11:33 PM CDT [facility]- NTRAL LABORATORY STAPHYLOCOCCUS AUREUS PCR Negative Negative 01/12/2024 11:33 PM CDT [facility] LAB[facility] Other SPECIMEN FROM INTERNAL NOSE / Unknown Non-Blood / Unknown 01/12/2024 10:07 PM CDT 01/12/2024 10:13 PM CDT Narrative [facility] - 01/12/2024 11:33 PM CDT Test result does not preclude MRSA or SA nasal colonization. Chaparro Sneed DO MICROBIOLOGY [facility] [address] [place] [address], * (ABNORMAL) Urine Culture (01/12/2024 10:07 PM CDT) Pathologist [facility] CULTURE RESULT(A) 01/16/2024 6:58 AM CDT [facility] CULTURE 10,000-50,000 CFU/mL Proteus mirabilis 01/16/2024 6:58 AM CDT [facility] CULTURE 50,000-100,000 CFU/mL Danita albicans 01/16/2024 6:58 AM CDT [facility] Urine URINE SPECIMEN [...] Guzman MD MICROBIOL OGY [facility] [address] [place] [address], * Blood Culture (01/12/2024 9:40 PM CDT) Only the most recent of2 resultswithin the time period is included. CULTURE No Growth. 01/16/2024 11:23 PM CDT [facility] Blood BLOOD SPECIMEN / Unknown Venipuncture / Unknown 01/12/2024 9:40 PM CDT 01/12/2024 9:52 PM CDT Narrative [facility] - 01/16/2024 11:23 PM CDT Low volume blood culture received; possible false negative culture. Emily Guzman MD MICROBIOL OGY [facility] [address] [place] [address], * (ABNORMAL) TROPONIN T(HS) ACUTE W/2HR REFLEX (01/12/2024 9:37 PM CDT) TROPONIN T HS 47(H) 6-10 ng/L ng/L 01/12/2024 10:16 PM CDT [facility] Blood BLOOD SPECIMEN / Unknown Non-Lab Venipuncture / Unknown 01/12/2024 9:37 PM CDT 01/12/2024 9:46 PM CDT Narrative [facility] - 01/12/2024 10:16 PM CDT hs-cTnT [...] department patient population. Emily Guzman MD CHEMISTRY [facility] [address] [place] [address], [place] * (ABNORMAL) CBC WITH AUTO DIFFERENTIAL (01/12/2024 9:37 PM CDT) [facility] WHITE BLOOD COUNT 14.9(H) 4.5 - 11.0 thou/cu mm 01/12/2024 9:54 PM CDT [facility] RED BLOOD COUNT 3.61(L) 4.00 - 5.20 mil/cu mm 01/12/2024 9:54 PM CDT [facility] HEMOGLOBIN 10.5(L) 12.0 - 16.0 g/dL 01/12/2024 9:54 PM CDT [facility] HEMATOCRIT 32.6(L) 33.0 - 51.0 % 01/12/2024 9:54 PM CDT [facility] MCV 90 80 - 100 fL 01/12/2024 9:54 PM CDT [facility] MCH 29.1 26.0 - 34.0 pg 01/12/2024 9:54 PM CDT [facility] MCHC 32.2 32.0 - 36.0 g/dL 01/12/2024 9:54 PM CDT [facility] RDW 13.2 11.5 - 15.5 % 01/12/2024 9:54 PM CDT [facility] PLATELET COUNT 273 140 - 440 thou/cu mm 01/12/2024 9:54 PM CDT [facility] MPV 11.0 6.5 - 11.0 fL 01/12/2024 9:54 PM CDT [facility] NRBC 0.0 % 01/12/2024 9:54 PM CDT [facility] ABS NRBC 0.0 thou /cu mm 01/12/2024 9:54 PM CDT [facility] % NEUT 80.3 % 01/12/2024 9:54 PM CDT [facility] % LYMPH 9.6 % 01/12/2024 9:54 PM CDT [facility] % MONO 9.2 % 01/12/2024 9:54 PM CDT [facility] % EOS 0.1 % 01/12/2024 9:54 PM CDT [facility] % BASO 0.1 % 01/12/2024 9:54 PM CDT [facility] % IMMATURE GRAN (METAS,MYELOS,NC OS) 0.7 % 01/12/2024 9:54 PM CDT [facility] ABSOLUTE NEUTROPHILS 12.0(H) 1.7 - 7.0 thou/cu mm 01/12/2024 9:54 PM CDT [facility] ABSOLUTE LYMPHOCYTES 1.4 0.9 - 2.9 thou/cu mm 01/12/2024 9:54 PM CDT [facility] ABSOLUTE MONOCYTES 1.4(H) <0.9 thou/cu mm 01/12/2024 9:54 PM CDT [facility] ABSOLUTE EOSINOPHILS 0.0 <0.5 thou/cu mm 01/12/2024 9:54 PM CDT [facility] ABSOLUTE BASOPHILS 0.0 <0.3 thou/cu mm 01/12/2024 9:54 PM CDT [facility] ABSOLUTE IMMATURE GRANULOCYTES(MET ,MYELOS,PROS) 0.1 <0.3 thou/cu mm 01/12/2024 9:54 PM CDT [facility] Blood BLOOD SPECIMEN / Unknown Non-Lab Venipuncture / Unknown 01/12/2024 9:37 PM CDT 01/12/2024 9:46 PM CDT Emily Guzman MD HEMATOLOG Y [facility] [address] [place] [address], * (ABNORMAL) BLOOD GAS,VENOUS (01/12/2024 9:37 PM CDT) PH, VENOUS 7.25(L) 7.32 - 7.43 01/12/2024 9:52 PM CDT [facility] PCO2, VENOUS 44 41 - 51 mmHg 01/12/2024 9:52 PM CDT [facility] PO2, VENOUS 48(H) 35 - 40 mmHg 01/12/2024 9:52 PM CDT [facility] HCO3,VENOUS 19(L) 22 - 29 mmol/L 01/12/2024 9:52 PM T [facility] BASE EXCESS, VENOUS, POCT -7.7(L) -2.0 - 3.0 01/12/2024 9:52 PM T [facility] O2 SATURATION, VENOUS 85(H) 70 - 75 % 01/12/2024 9:52 PM CDT [facility] INSPIRED O2 21 01/12/2024 9:52 PM T [facility] Comment:Unit of Measure: Lit ers (L) if <=20; Percent (%) if >20 PATIENT TEMPERATURE 36.9 Degrees C 01/12/2024 9:52 PM CDT [facility] Blood VENOUS BLOOD SPECIMEN / Unknown Non-Lab Venipuncture / Unknown 01/12/2024 9:37 PM CDT 01/12/2024 9:46 PM CDT Emily Guzman MD CHEMISTRY Performing Organization Address [facility] Co de Phone Number [facility] [address] [place] [address], [place] * Protime - INR (01/12/2024 9:37 PM CDT) INR 1.0 <1.3 01/12/2024 9:56 PM CDT [facility] PROTIME 11.5 10.3 - 12.3 sec 01/12/2024 9:56 PM CDT [facility] Blood BLOOD SPECIMEN / Unknown Non-Lab Venipuncture / Unknown 01/12/2024 9:37 PM CDT 01/12/2024 9:46 PM CDT Narrative [facility] - 01/12/2024 9:56 PM CDT ?Therapeutic [...] Guzman MD HEMATOLOG Y Performing Organization Address [facility] Co de Phone Number [facility] [address] [place] [address], [place] * (ABNORMAL) HEMOGLOBIN A1C MONITORING (POCT) (01/12/2024 9:37 PM CDT) HEMOGLOBIN A1C MONITORING (POCT) 9.3(H) <=6.4 % 01/14/2024 10:29 AM CDT [facility] Blood BLOOD SPECIMEN / Unknown Non-Lab Venipuncture / Unknown 01/12/2024 9:37 PM CDT 01/12/2024 9:46 PM CDT [facility] - 01/14/2024 10:29 AM CDT ? [...] with: Untreated Anemias, Splenectomy ? Barbara Holcomb LAY OUT DRAFTER CHEMISTRY [facility] [address] [place] [address], * (ABNORMAL) Hepatic Function Panel (01/12/2024 9:37 PM CDT) ALBUMIN 3.2(L) 4.0 - 4.9 g/dL 01/12/2024 10:16 PM CDT [facility] PROTEIN,TOTAL 6.4 6.0 - 8.0 g/dL 01/12/2024 10:16 PM CDT [facility] BILIRUBIN,TOTAL 0.2 0.0 - 1.2 mg/dL 01/12/2024 10:16 PM CDT [facility] BILIRUBIN,DIRECT <0.2 0.0 - 0.3 mg/dL 01/12/2024 10:16 PM CDT [facility] BILIRUBIN,INDIRE CT 01/12/2024 10:16 PM CDT [facility] Comment:Unable to calculate, Direct Bili <0.2 ALK PHOSPHATASE 122(H) 35 - 104 IU/L 01/12/2024 10:16 PM CDT [facility] ALT (SGPT) 21 10 - 35 IU/L 01/12/2024 10:16 PM CDT [facility] LABORAT[facility] AST (SGOT) 20 10 - 35 IU/L 01/12/2024 10:16 PM CDT [facility] Blood BLOOD SPECIMEN / Unknown Non-Lab Venipuncture / Unknown 01/12/2024 9:37 PM CDT 01/12/2024 9:46 PM CDT Emily Guzman MD CHEMISTRY [facility] [address] [place] [address], * SCAN-CARDIAC STRIP (01/12/2024 9:20 PM CDT) [...] health care provider. XR MAMMO BILAT SCREENING [[id number]] CLINICAL HISTORY: ??This is an asymptomatic 61 y.o. patient. INDICATION FOR EXAM: Mammogram Screening. TECHNIQUE: CC & MLO views were obtained. ??This study was evaluated with the assistance of Computer-Aided Detection. COMPARISON FILM: Yes 03/02/18 [employer] 07/26/13 [facility] FINDINGS: ??The breasts are extremely dense, which lowers the sensitivity of mammography. There are no dominant masses, suspicious micro calcifications or areas of architectural distortion. Shania Montiel MD MAMMO * LIPID PANEL W REFLEX MEASURED LDL (04/28/2022 1:44 PM CDT) CHOLESTEROL,TOTAL 139 100 - 199 mg/dL 04/30/2022 6:25 PM CDT [facility] TRIGLYCERIDES 141 <150 mg/dL 04/30/2022 6:25 PM CDT [facility] HDL CHOLESTEROL 42 >40 mg/dL 6:25 PM CDT [facility] NON-HDL CHOLESTEROL 97 <145 mg/dl 04/30/2022 6:25 PM CDT [facility] CHOL/HDL RATIO 3.31 <4.50 04/30/2022 6:25 PM CDT [facility] LDL CHOLESTEROL 69 <=130 mg/dL 04/30/2022 6:25 PM CDT [facility] VLDL CHOLESTEROL 28 <=30 mg/dL 04/30/2022 6:25 PM CDT [facility] PROVIDER ORDERED STATUS RANDOM 04/30/2022 6:25 PM CDT [facility] Blood BLOOD SPECIMEN / Unknown Venipuncture / Unknown 04/28/2022 1:44 PM CDT 04/28/2022 1:45 PM CDT Shania Montiel MD CHEMISTRY [facility] [address] [place] [address], [place] * FECAL DNA (AKA COLOGUARD) (11/10/2021 1:00 PM CDT) Shania Montiel MD COMMUNICATION ORD * ANTI HCV [[id number]] (02/16/2018 4:20 PM CDT) HEPATITIS C ANTIBODY Non-React alex Non-React alex 02/17/2018 2:48 PM CDT [facility] Comment:Antibodies to HCV no t detected; does not exclude the possibility of exposure to HCV. Blood BLOOD SPECIMEN / Unknown Butterfly / Unknown 02/16/2018 4:20 PM CDT 02/16/2018 4:20 PM CDT Coleman Plata MD SEND OUTS Performing Organization Address City/[facility]/ZIP Co de Phone Number [facility] [address] [place] [address], * HIV 1&2 TODAY (07/21/2015 9:40 AM POND [facility]WYER) HIV-1/HIV-2 ANTIBODY Non-Reacti ve Non-Reacti ve 07/21/2015 10:31 AM [facility] Blood specimen (specimen) BLOOD SPECIMEN / Unknown Venipuncture / Unknown 07/21/2015 9:40 AM P[facility]ER 07/21/2015 9:47 AM [facility] Narrative [facility] - 07/21/2015 10:31 AM P[facility] HIV-1 p24 and HIV-1/HIV-2 Ab not detected Kait Morales DO SEND OUTS Performing Organization Address [facility] Co de Phone Number [facility] [address] [place] [address], * HOUSE WRECKER THIN PREP PAP SCREEN IMAGED (08/17/2012 4:02 PM POND [facility]ER) CYTOLOGY CYTOPATHOLOGY REPORT [facility] Status: Final Status ?[id number] CLINICAL INFORMATION Last Date of LMP ? :07/03/2012 Last Pap Date ?:02/01/2011 Last Pap Result ?:NIL ABN [place]/Bx Past 5 YRS :None Hormone Usage ?:BCP/OCP/Patch/R ing Menstrual Status ? :Regular Periods [place]/Bx done today ? :No Additional Information :None [...] COLLECTED:08/17/12 ? ACCESSIONED: ??08/18/12 ?? SIGNED: ??08/21/12 [facility] PAP [place] CODE NIL [facility] Tissue specimen (specimen) (Cervical/Vagina l) 08/17/2012 4:02 PM P[facility] 08/17/2012 4:00 PM [facility] Coleman Plata MD PATHOLOGY/CYTOLOGY [facility] [place]NAL ZIP [id number] [place] [phone] from Last 3 Months or Most Recently [...] Urine earlier this year (per report from [facility], not available in CareEverywhere), 04/19/18 L cheek abscess exclusions for contact precaution discontinuation (if > 12 months since positive culture): resides in acute/usp care, receiving hemodialysis, has chronic open wounds/skin [...] 8:01 PM 07/15/2012 6:55 PM Care Teams Atomic Spectroscopist Relationship Specialty Start Date End Date Barbara Valentin DO [address] [place] [address] PCP - General Family Practice 11/15/22 Julio Ibrahim MD [address] [facility] [address] [place] [address] Surgery - Orthopedics 02/01/11 Chuy Doss MD [address] [facility] [address] [place] [address] Surgery - Vascular 02/01/11 Markel Strong MD [address] [place] [address] Provider Family Practice 08/08/20 Nikolai Ibarra MD [address] [facility] [address] [place] [address] Endocrinology 09/07/22 [facility] [address] [address] 04/07/24 Suad Ng/ [employer] CM Multimedia Instructional Designer 07/14/17 [facility] Home Health Nurse 07/01/17 [facility] RNP Services Home Health Aide 07/14/17 [facility] Shoe Singer/ Ally Christianson [address] [place] [address] Multimedia Instructional Designer 07/07/17
== END 2024-04-12 15:15 | disposition home or self-care (01) ==
LOC: WOUND 15:14
PROVIDERS: PCP Family Medicine; Visit Provider Nurse Practitioner Family
DX: E11.621 Type 2 diabetes mellitus with foot ulcer (principal); L97.422 Non-pressure chronic ulcer of left heel and midfoot with fat layer exposed; M14.672 Charcot's joint, left ankle and foot
CPT/HCPCS: 11042

== ENCOUNTER 2024-04-19 15:07 | Outpatient (CLI) | payer OTHER, SELFPAY ==
--- OUTSIDE RECORDS SUMMARY | 2024-04-19 15:09 | XMS_ITS | Clinical Summary ---
Author Organization [facility] [place] Address [address] [facility] [place] [address] Phone Care Team Providers Care Coke Handling Supervisor Name Role Phone Barbara Valentin DO Primary Care Provider Allergies Active Allergy Reactions Criticality Noted Date Comments Aspirin 10/28/2009 Not able to take asa do to gastric bypass surgery Nsaids Other (see comments) 11/11/2008 Pt had gastric bypass surgery, should not take oral NSAIDS. Penicillins Anaphylaxis,Rash High 10/18/2017 Rash as a child Sulfa Antibiotics Anaphylaxis High 11/19/2020 Medications acetaminophen (TYLENOL 8 HOUR) 650 MG 8 hr tablet Take 650 mg by mouth every 8 (eight) hours if needed Active ammonium lactate (LAC-HYDRIN) 12 % lotion Apply topically 3 Active atorvastatin (LIPITOR) 20 MG tablet Take [...] mouth 1 (one) time each day 4 Active DULoxetine (CYMBALTA) [address] capsule TAKE ONE CAPSULE BY MOUTH ONCE DAILY 4 Active FLUoxetine (PROzac) 10 MG capsule TAKE 1 CAPSULE (10 MG) BY MOUTH ONCE DAILY. Active Glucagon (Baqsimi One Pack) 3 MG/DOSE powder Inhale 1 [place] into affected nostril(s) each time if needed for Severe Hypoglycemia. Roll on side and call 911 after administration. 2 Active Lantus SoloStar 100 UNIT/ML injection Inject 13 units subcutaneous before bedtime. Product desired: LANTUS SOLOSTAR 3 Active HumaLOG 100 UNIT/ML solution Inject 6-8u SubQ TID AC, 4u SubQ BID with snack depending on carb intake 4 Active ipratropium-alb uterol (DUO-NEB) 0.5-2.5 mg/3 mL nebulizer solution Take 3 mL by nebulization every 6 (six) hours if needed for wheezing 4 Active levothyroxine (SYNTHROID, LEVOTHROID) 125 MCG tablet [...] DOSES MAY BE GIVEN EVERY 2-3 MIN. 3 Active omeprazole (PriLOSEC) [address] capsule TAKE 1 CAPSULE (20 MG) BY MOUTH ONCE DAILY BEFORE A MEAL. 4 Active oxyCODONE (ROXICODONE) 5 MG immediate release tablet TAKE 1 TABLET TWICE A DAY NEEDED FOR OA PAIN/DIABETIC PAIN. MAX DOSE IS 2 TABS PER DAY. USE DATES 10/24/23- 4 Active polyethylene glycol (GLYCOLAX) 17 GM/SCOOP powder MIX 17GMS IN 8OZ LIQUID AND DRINK ONCE DAILY NEEDED FOR CONSTIPATION 4 Active pregabalin (LYRICA) 50 MG capsule TAKE ONE CAPSULE BY MOUTH EVERY EVENING WITH 1-100MG CAPSULE TO TOTAL 150MG 4 Active pregabalin (LYRICA) 100 MG capsule TAKE TWO CAPSULES (200MG) BY MOUTH EVERY MORNING AND ONE CAPSULE IN THE EVENING WITH THE (50MG) TO TOTAL 150MG Active senna-docusate (PERICOLACE) 8.6-50 MG per tablet TAKE TWO TABLETS BY MOUTH TWO TIMES DAILY NEEDED FOR CONSTIPATION. 3 Active torsemide (DEMADEX) 20 MG tablet TAKE TWO TABLETS BY MOUTH (40MG) ONCE DAILY Active cyanocobalamin (VITAMIN B-12) 1000 MCG tablet Take 1,000 mcg by mouth 1 (one) time each day 4 Active Ketoconazole-Hy drocortisone 2 & 1 % kit Apply topically 1 Active carboxymethylce llulose 1 % ophthalmic solution Administer 1 drop into both eyes 4 (four) times a day if needed (dry eyes) Active Active Problems Problem Noted Date Diagnosed Date Urinary tract infectious disease 11/10/2023 Type 1 diabetes mellitus wit h diabetic chronic kidney disease 11/09/2023 Overview (11/09/2023): Patient has known DMR Assessment & Plan (11/09/2023 11:41 AM CDT): Most recent A1c was 7.7 on 09/21/2023. Defer further to PCP. Chronic diastolic congestive heart failure 11/08 Overview (11/09/2023): Echocardiogram from October 2022 with EF of 60-65%. Assessment & Plan (11/10/2023 4:17 PM CDT): Appears well-managed overall. No evidence of decompensated heart failure on examination today. Hypertensive heart and chron ic kidney disease without heart failure, with stage 1 through stage 4 chronic kidney disease, or unspecified chronic kidney disease 11/09/2023 Secondary hyperparathyroidism of renal origin Assessment & Plan (11/10/2023 4:18 PM CDT): PTH values at 221 in August 2021 and 153 in May 2023. No recent vitamin D totals. Nonetheless calcium level is fine. Phosphorus assessment at the next visit as well. Obstructive sleep apnea 11/09/2023 Chronic kidney disease stage 4 07/02/2021 Overview (11/10/2023): Baseline creatinine values in the high ones-2 range since 2016. Albuminuria first detected in October 2006. Urine albumin creatinine ratio 593 mg/g in 2011. Most recent assay at 104 mg/g in May 2023. Renal ultrasound December 2007: Right kidney 9.7 cm, left kidney 10.3 cm. Etiology of CKD related to small vessel disease, diabetic glomerulosclerosis, extensive NSAID exposure, and hypertensive nephrosclerosis. Assessment & Plan (11/10/2023 4:17 PM CDT): Stable GFR. Patient was asked to avoid further exposure to diclofenac gel since it is physiologic effects are unchanged and the same as any other orally ingested NSAID. Will tentatively plan to see her again in 6 months time. Otherwise she appears to be doing well overall. Anemia of other chronic disease 09/09/2006 Assessment & Plan (11/10/2023 4:18 PM CDT): Baseline hemoglobin study between 11.5-12. Plan to reassess hemoglobin at the next visit. Most recent value was 11.5 on 02/28/2023. Essential hypertension 09/09/2006 Encounters Date Type Department Care Team Description 02/01/2024 Telephone [facility] [place] [address] [facility] [address] [place] [phone] Gabriel Hicks MD 01/23/2024 Documentation Only [facility] [place] [address] [facility] [address] [place] [phone] Ronnell Kirby 01/23/2024 Office Communication [facility] [place] [address] [facility] [address] [place] [phone] Ronnell Kirby from Last 3 Months Immunizations [...] drink = 0.6 oz pur e alcohol) Comments Unknown Sex and Gender Information Value Date Recorded Sex Assigned at Not on file Legal Sex Female 8:38 AM EDT Gender Identity Not on file Sexual Orientation [...] [facility] [address] [place] [address] Gabriel Hicks MD [address] [address] Chronic kidney disease, stage 4 (severe) [...] on patient's age to complete this topic Insurance MEDICA DUAL [facility] D-SNP ([id number]) [place] [id number] Care Teams Coke Handling Supervisor Relationship Specialty Start Date End Date Barbara Valentin DO [address] [place], [place] [phone] PCP - General Family Medicine 09/22/23
--- OUTSIDE RECORDS SUMMARY | 2024-04-19 15:09 | XMS_ITS | Encounter Summary ---
Author Organization [facility] [place] Address [address] [place] [address] Care Team Providers Care Family Resource Coordinator Name Role Phone Barbara Valentin DO Primary Care Provider [phone] Encounter Details Date Type Department Care Team (Late st Contact Info) Description 01/23/2024 Office Communication [facility] [place] [address] [place] [address] Ronnell Kirby [address] [place] [address] Social History Tobacco Use Types [...] [facility] [address] [place] [address] Gabriel Hicks MD [address] [place] [phone] Chronic kidney disease, stage 4 (severe) (HCC) documented as of this encounter Visit Diagnoses Not on filedocumented in this encounter Care Teams Family Resource Coordinator Relationship Specialty Start Date End Date Barbara Valentin DO [address] [place] [address] PCP - General Family Medicine 09/22/23 documented as of this encounter
--- OUTSIDE RECORDS SUMMARY | 2024-04-19 15:09 | XMS_ITS | Encounter Summary ---
Author Organization [facility] [place] Address [address] [place] [address] Care Team Providers Care Planning Management It Specialist Name Role Phone Barbara Valentin DO Primary Care Provider [phone] Encounter Details Date Type Department Care Team (Late st Contact Info) Description 01/23/2024 Documentation Only [facility] [place] [address] [place] [phone] Ronnell Kirby [address] [place] [address] Social History Tobacco Use Types [...] [facility] [address] [place] [id number] Gabriel Hicks MD [address] [place] [phone] Chronic kidney disease, stage 4 (severe) (HCC) [...] 46(L) [facility] Anion Gap 12 [facility] 01/17/2024 us Historical Provider LAB BLOOD ORDERABLES Dania meraz Result [facility] * (ABNORMAL) Creatine (01/17/2024) Creatine, Serum 1.28(H) [facility] GFR Calculated 47(L) [facility] Blood (Blood, Venous) 01/17/2024 Result [facility] Provider MD LAB BLOOD ORDERABLES Dania l Result Performing Organization Address [facility] Co de Phone Number [facility] * (ABNORMAL) Creatine (01/16/2024) Creatine, Serum 1.28(H) [facility] GFR Calculated 47(L) [facility] Blood (Blood, Venous) 01/16/2024 Result [facility] Provider MD LAB BLOOD ORDERABLES Dania l Result Performing Organization Address [facility] de Phone Number [facility] * (ABNORMAL) Creatine (01/15/2024) Creatine, Serum 1.71(H) [facility] GFR Calculated 34(L) [facility] Blood (Blood, Venous) 01/15/2024 Result [facility] Provider MD LAB BLOOD ORDERABLES Dania l Result Performing Organization Address [facility] de Phone Number [facility] * (ABNORMAL) Hemoglobin (01/15/2024) Hemoglobin 8.4(L) g/dL [facility] MCV 91.0 [facility] Blood (Blood, Venous) 01/15/2024 Result [facility] Provider MD LAB BLOOD ORDERABLES Dania l Result Performing Organization Address [facility] Co de Phone Number [facility] * (ABNORMAL) Basic Metabolic Panel (BMP) (01/14/2024) Sodium 144 mEq/L [facility] Potassium 4.4 mEq/L [facility] Chloride 112(H) [facility] Carbon Dioxide 23 mmol/L [facility] Calcium 8.4(L) mg/dL [facility] BUN 57(H) mg/dL [facility] Creatinine 2.61(H) mg/dL [facility] Glucose 179(H) mg/dL [facility] eGFR 20(L) [facility] Anion Gap 9 [facility] 01/14/2024 Result [facility] Provider MD LAB BLOOD ORDERABLES Dania l Result Performing Organization Address [facility]/ZIP Co de Phone Number [facility] * (ABNORMAL) CBC (01/14/2024) WBC 8.5 K/uL [facility] Red Blood Cell Count 3.04(L) [facility] Hemoglobin 8.9(L) g/dL [facility] Hematocrit 27.5(L) % [facility] MCV 91 [facility] MCH 29.3 [facility] MCHC 32.4 [facility] RDW 14.4 [facility] Platelet Count 198 [facility] MPV 11.4(H) [facility] Blood (Blood, Venous) 01/14/2024 Result [facility] Provider MD LAB BLOOD ORDERABLES Dania l Result Performing Organization Address [facility] Co de Phone Number [facility] * (ABNORMAL) Basic Metabolic Panel (BMP) (01/13/2024) Sodium 143 mEq/L [facility] Potassium 4.6 mEq/L [facility] Chloride 111(H) [facility] Carbon Dioxide 21(L) mmol/L [facility] Calcium 8.0(L) mg/dL [facility] BUN 65(H) mg/dL [facility] Creatinine 3.10(H) mg/dL [facility] Glucose 143(H) mg/dL [facility] eGFR 16(L) [facility] Anion Gap 11 [facility] 01/13/2024 Result [facility] Provider MD LAB BLOOD ORDERABLES Dania l Result Performing Organization Address [facility] Co [...] (Blood, Venous) 01/12/2024 Historical Provider LAB BLOOD ORDERABLES Dania l Result [facility] * (ABNORMAL) Basic Metabolic Panel (BMP) (01/12/2024) Sodium 138 mEq/L [facility] Potassium 5.1 mEq/L [facility] Chloride 99 [facility] Carbon Dioxide 19(L) mmol/L [facility] Calcium 7.8(L) mg/dL [facility] BUN 78(H) mg/dL [facility] Creatinine 3.88(H) mg/dL [facility] Glucose 690(Critic al Hig) mg/dL [facility] eGFR 13(L) [facility] Anion Gap 20(H) [facility] 01/12/2024 Historical Provider LAB BLOOD ORDERABLES Dania l Result [facility] documented in this encounter Visit Diagnoses Not on filedocumented in this encounter Care Teams Planning Management It Specialist Relationship Specialty Start Date End Date Barbara Valentin DO [address] [place] [address] PCP - General Family Medicine 09/22/23 documented as of this encounter
--- OUTSIDE RECORDS SUMMARY | 2024-04-19 15:09 | XMS_ITS | Encounter Summary ---
Author Organization [facility] Address [address] [place] [address] Care Team Providers Care General Warehouse Worker Name Role Phone Barbara Valentin DO Primary Care Provider [phone] Encounter Details Date Type Department Care Team (Late st Contact Info) Description 02/01/2024 Telephone [facility] [place] [address] [place] [address] Gabriel Hicks MD [address] [place] [address] Social History Tobacco Use Types [...] [facility] [address] [place] [address] Gabriel Hicks MD [address] [facility] [address] [address] Chronic kidney disease, stage 4 (severe) (HCC) documented as of this encounter Visit Diagnoses Not on filedocumented in this encounter Care Teams General Warehouse Worker Relationship Specialty Start Date End Date Barbara Valentin DO [address] [place] [address] PCP - General Family Medicine 09/22/23 documented as of this encounter
--- OUTSIDE RECORDS SUMMARY | 2024-04-19 15:10 | XMS_ITS | Clinical Summary ---
Author Organization [employer] [facility] Address [place], [place] [address] Care Team Providers Care Document Manager Name Role Phone Julio Ibrahim MD Unavailable Chuy Doss MD Unavailable [phone] Markel Strong MD Unavailable Nikolai Ibarra MD Unavailable Barbara Valentin DO [facility] Allergies Active Allergy Reactions Criticality [...] AT HOME 100 Each 03/02/20 21 Active fluticasone (50 mcg per actuation) nasal solution (FLONASE)Indicati ons:Nasal congestion Inhale 1 [place] into affected nostril(s) once daily. Inhale 1 [place] in the nostril(s) once daily. 16 g 01/12/20 22 Active CPAPIndications:S evere obstructive sleep apnea CPAP machine for home [...] use: Daily 1 Each 09/22/19 23 Active sennosides-docusa te (Stool Softener-Stimulan t Laxat) (8.6-50 mg) tabletIndications :Chronic constipation TAKE TWO TABLETS BY MOUTH TWO TIMES DAILY NEEDED FOR CONSTIPATION. 360 Tablet 2 04/20/20 23 Active continuous glucose monitor READER (FreeStyle Elli 2 [place])Indication s:Type 1 diabetes mellitus with other specified complication (HC) To be used to read blood sugars per veterinarian small animal's directions. 1 Each 05/19/20 23 Active blood-glucose [...] day. 400 Each 3 05/19/20 23 Active continuous glucose monitor SENSOR KIT (FreeStyle Elli 2 Sensor)Indication s:Type 1 diabetes mellitus with other specified complication (HC) As directed. To be used to read blood sugars per veterinarian small animal's directions. 6 Each 3 09/06/19 24 Active [...] 4000mg in 24 hrs. 01/17/20 24 Active naloxone (NARCAN) 4 mg/actuation nasal sprayIndications: Chronic, continuous use of opioids Inhale 1 [place] into affected nostril(s) each time if [...] EVERY EVENING 90 Capsule 04/06/20 24 Active insulin glargine, U-100, (LANTUS) 100 unit/mL injectionIndicati ons: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, macular edema presence unspecified, unspecified laterality, unspecified proliferative retinopathy type (HC) 8 units each morning 04/13/20 24 Active torsemide (DEMADEX) 20 mg tabletIndications :Hyperkalemia,Loc alized edema Take 2 Tablets (40 mg) by mouth once daily. 180 Tablet 3 04/13/20 24 Active glucagon (Baqsimi) 3 mg/actuation nasal sprayIndications: patient with diabetes mellitus at risk of hypoglycemia Inhale 1 [place] into affected nostril(s) each time if needed for Severe Hypoglycemia. Roll on side and call 911 after administration. 2 Each 04/13/20 24 Active albuterol-ipratro pium (DUONEB) (2.5-0.5 mg) in 3 mL NEBULIZATION solutionIndicatio ns:Chronic obstructive pulmonary disease, unspecified COPD type (HC) Inhale 3 mL via a nebulizer every 6 hours if needed for Shortness of Breath 2nd choice or Wheezing 2nd choice. 180 mL 3 04/16/20 24 Active insulin lispro, U-100, (HumaLOG KwikPen Insulin) 100 unit/mL inpn penIndications:Di abetes mellitus type 1 with complications (HC) 10 units with breakfast, 6 units with lunch, 8 units with dinner, plus Corrective dose insulin as needed, up to 45 units / day 15 mL 3 04/16/20 24 Active glucagon (Baqsimi) 3 mg/actuation nasal sprayIndications: patient with diabetes mellitus at risk of hypoglycemia Inhale 1 [place] into affected nostril(s) each time if needed for Severe Hypoglycemia. Roll on side and call 911 after administration. 2 Each 12/25/19 024 Discontinued(Re order (E-cancel not sent)) naloxone (NARCAN) 4 mg/actuation nasal sprayIndications: Chronic, continuous use of opioids [The details of the medication are not available because there are pending changes by a home health clinician.] 2 Each 01/29/20 23 024 Discontinued(*M edication adjustment) amLODIPine (NORVASC) 2.5 mg tabletIndications :Essential hypertension Take 1 Tablet (2.5 mg) by mouth two times daily. 180 Tablet 3 02/29/20 23 024 Discontinued torsemide (DEMADEX) 20 mg tabletIndications :Hyperkalemia,Loc alized edema TAKE TWO TABLETS BY MOUTH (40MG) ONCE DAILY 60 Tablet 3 09/09/19 24 024 Discontinued(Re order (E-cancel not sent)) omeprazole (PRILOSEC) 20 mg Delayed-Release capsuleIndication s:Chronic GERD Take 1 Capsule (20 mg) by mouth once daily before a meal. 90 Capsule 1 09/06/19 24 024 Discontinued losartan (COZAAR) 25 mg tablet Take 12.5 mg by mouth once daily. 024 Discontinued(*P atient states no longer taking) pregabalin (LYRICA) 100 mg capsuleIndication s:Chronic pain syndrome Take 1 Capsule (100 mg) by mouth two times daily. 01/17/20 24 024 Discontinued(*M edication adjustment) insulin glargine, U-100, (LANTUS) 100 unit/mL injectionIndicati ons: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, macular edema presence unspecified, unspecified laterality, unspecified proliferative retinopathy type (HC) 20 units each morning 01/17/20 24 024 Discontinued(*M edication adjustment) insulin lispro, U-100, (HumaLOG KwikPen Insulin) 100 unit/mL inpn penIndications:Di abetes mellitus type 1 with complications (HC) 6-7 units with each meal , plus Corrective dose insulin as needed, up to 45 units / day 10 mL 3 02/08/20 24 024 Discontinued(*M edication adjustment) pregabalin (LYRICA) 50 mg capsuleIndication s:Diabetic peripheral neuropathy (HC) TAKE ONE CAPSULE BY MOUTH EVERY EVENING WITH 1-100MG CAPSULE TO TOTAL 150MG 60 Capsule 2 03/20/20 24 024 Discontinued(*M edication adjustment) insulin lispro, U-100, (HumaLOG KwikPen Insulin) 100 unit/mL inpn penIndications:Di abetes mellitus type 1 with complications (HC) 10 units with breakfast, 6 units with lunch, 8 units with dinner, plus Corrective dose insulin as needed, up to 45 units / day 10 mL 3 04/13/20 24 024 Discontinued(*A vailability/For mulary change/Cost of medication) albuterol-ipratro pium (DUONEB) (2.5-0.5 mg) in 3 mL NEBULIZATION solutionIndicatio ns:Chronic obstructive pulmonary disease, unspecified COPD type (HC) Inhale 3 mL via a nebulizer every 6 hours if needed for Shortness of Breath 2nd choice or Wheezing 2nd choice. 3 mL 3 04/13/20 24 024 Discontinued(*A vailability/For mulary change/Cost of medication) Active Problems Patient Care Coordination No te [...] agreement signed - 10/07/23 10/07/2023 Overview (10/07/2023): [facility]em[facility] .................... 10/07/2023 4:39 [...] which led to extended stay in termite treater helper care 07/2015- 05/2017 Hospitalized with ketoacidosis [...] post total right knee replacement 01/02/2015 06/10/2017 [facility] (current) use of anticoagulants 11/27/2013 12/28/2013 Anticoagulation [...] Encounters Date Type Department Care Team Description 04/17/2024 9:00 AM CDT Home Care Visit [facility] [address] [place] [phone] Geneva Sanchez RN SN - HOME VISIT 04/17/2024 Telephone [facility] [address] [place] [phone] Geneva Sanchez, grant administrator 04/16/2024 Telephone [facility] [address] [place], [place] [phone] Barbara Valentin Patricia, DO Results 04/16/2024 Patient Outreach [facility] Care Management - Care Management Navigation/[facility] [address] [place] [address] Gonzales Aide [facility] (Care Guide Breast Cancer Screening outreach/) 04/13/2024 11:00 AM CDT Office Visit [facility] [address] [place] [address] Barbara Valentin Patricia, DO Follow Up (Diabetes, home care, medications) 04/13/2024 1:20 AM CDT Home Care Visit [facility] [address] [place] [phone] Coleman Rock RN SN - WOUND/OSTOMY CHART CONSULT 04/13/2024 Refill [facility] [address] [place] [address] Barbara Valentin Patricia, DO Refill Request (need changes/clarificatio n) 04/13/2024 Travel 04/12/2024 9:00 AM CDT Home Care Visit [facility] [address] [place] [phone] Geneva Sanchez, RN SN - OASIS START OF CARE 04/12/2024 Orders Only [facility] [address] [place] [address] Barbara Valentin Patricia, DO <No scans attached> 04/12/2024 Telephone [facility] [address] [place] [phone] Geneva Sanchez, grant administrator 04/12/2024 Patient Outreach [facility] Care Management - Care Management Navigation/[facility] [address] [place] [address] Gonzales [facility] (Care Guide Breast Cancer Screening outreach/) 04/12/2024 Plan of Care Documentation [facility] [address] [place] [phone] 04/09/2024 Patient Outreach [facility] Care Management - Care Management Navigation/[facility] [address] [place] [address] Aide Rolon [facility] (Care Guide Breast Cancer Screening outreach/) 04/09/2024 Home Care Visit [facility] [address] [place] [phone] Elvi Meyers RN CARE COORDINATION 04/06/2024 11:25 AM CDT Office Visit [facility] [address] [place] [address] Sir Valentini Patricia, DO Hospital F/U (Hypoglycemia - ER/hospital 03/29, 04/06 ) 04/06/2024 Orders Only [facility] [address] [facility] [address] [place] [address] Nikolai Ibarra MD <No scans attached> 04/06/2024 Travel 04/04/2024 Refill [facility] [address] [place] [address] Barbara Valentin Patricia, DO Refill Request (Amlodipine, Omeprazole) 03/27/2024 Telephone [facility] [address] [place] [address] Barbara Valentin Patricia, DO Questions 03/16/2024 Refill [facility] [address] [facility] [address] [place] [address] Toshia Hooks NP Refill Request 03/14/2024 10:30 AM CDT Home Care Visit [facility] [address] [place] [phone] Geneva Sanchez RN SN - OASIS DISCHARGE 03/12/2024 Refill [facility] [address] [place] [address] Barbara Valentin Patricia, DO Refill Request (Pregabalin, Fluoxetine, Duloxetine) 03/06/2024 10:00 AM CDT Home Care Visit [facility] [address] [place] [phone] Geneva Sanchez RN SN - HOME VISIT 03/06/2024 9:15 AM CDT Home Care Visit [facility] [address] [place] [phone] Alex Contreras MACHINING SUPERVISOR - HOME VISIT 03/03/2024 Home Care Visit [facility] [address] [place] [phone] Nitza Riojas LISW CARE COORDINATION 02/28/2024 2:00 PM CDT Home Care Visit [facility] [address] [place] [phone] Shania Elaine, RN SN - HOME VISIT 02/28/2024 10:45 AM CDT Home Care Visit [facility] [address] [place] [phone] Fabiola Mathis MACHINING SUPERVISOR - HOME VISIT 02/25/2024 Home Care Visit [facility] [address] [place] [phone] Nitza Riojas LISW CARE COORDINATION 02/22/2024 3:00 PM CDT Home Care Visit [facility] [address] [place] [phone] Trini Hitchcock, LOS SN - HOME VISIT 02/22/2024 Home Care Visit [facility] [address] [place] [phone] Dar Phillips, OT OT - DISCIPLINE DISCHARGE 02/21/2024 9:45 AM CDT Home Care Visit [facility] [address] [place] [phone] Alex Contreras MACHINING SUPERVISOR - HOME VISIT 02/20/2024 Home Care Visit [facility] [address] [place] [phone] Nitza Riojas LISW FAT PURIFICATION WORKER - INITIAL ASSESSMENT 02/16/2024 Refill [facility] [address] [place] [address] Toshia Hooks NP Refill Request (oxyCODONE (ROXICODONE) 5 mg immediate release tablet ) 02/15/2024 3:45 PM CDT Home Care Visit [facility] [address] [place] [address], [place] [phone] Coleman Greene, PT PT - DISCIPLINE DISCHARGE 02/15/2024 11:00 AM CDT Home Care Visit [facility] [address] [place] [address], [place] [phone] Geneva Sanchez RN SN - HOME VISIT 02/14/2024 12:00 PM CDT Home Care Visit [facility] [address] [place] [phone] Joi Moreno VARELA OT - HOME VISIT 02/14/2024 8:15 AM CDT Home Care Visit [facility] [address] [place] [phone] Fabiola Mathis MACHINING SUPERVISOR - HOME VISIT 02/10/2024 3:30 PM CDT Home Care Visit [facility] [address] [place] [phone] Joi Moreno VARELA OT - HOME VISIT 02/10/2024 Home Care Visit [facility] [address] [place] [phone] Nitza Riojas LISW FAT PURIFICATION WORKER - CASE COMMUNICATION 02/09/2024 Refill [facility] [address] [place] [phone] Barbara Valentin, DO Refill Request (Duloxetine) 02/08/2024 3:00 PM CDT Home Care Visit [facility] [address] [place] [phone] Veda Resendiz RN SN - WOUND/OSTOMY CHART CONSULT 02/08/2024 9:00 AM CDT Home Care Visit [facility] [address] [place] [phone] Geneva Sanchez RN SN - HOME VISIT 02/08/2024 Telephone [facility] [address] [place] [address] Barbara Valentin DO Pharmacist Medication Management (MEDICATION CHANGE) 02/08/2024 Telephone [facility] [address] [place] [address] Geneva Sanchez, forest economics professor List Update 02/07/2024 4:00 PM CDT Home Care Visit [facility] [address] [place] [phone] Joi Moreno COTA OT - HOME VISIT 02/07/2024 9:30 AM CDT Home Care Visit [address] [phone] Kendal Serna, PT PT - HOME VISIT 02/07/2024 Telephone [facility] [address] [place] [address] Barbara Valentin, DO Refill Request (Insulin lispro pens) 02/04/2024 Refill [facility] [address] [place] [address] Barbara Valentin, DO Refill Request (Insulin Lispro) 02/03/2024 9:00 AM CDT Home Care Visit [facility] [address] [place] [phone] Joi Moreno VARELA OT - HOME VISIT 02/02/2024 11:00 AM CDT Home Care Visit [facility] [address] [place] [phone] Kendal Serna, PT PT - HOME VISIT 02/01/2024 4:00 PM CDT Home Care Visit [address] [phone] Joi Moreno VARELA OT - HOME VISIT 01/31/2024 9:30 AM CDT Home Care Visit [address] [phone] Fabiola Mathis MACHINING SUPERVISOR - HOME VISIT 01/31/2024 Home Care Visit [facility] [address] [place] [phone] Oumou Burns, RN CARE COORDINATION 01/31/2024 Home Care Visit [facility] [address] [place] [phone] Oumou Burns, LOS CARE COORDINATION 01/30/2024 10:45 AM CDT Home Care Visit [facility] [address] [place] [phone] Kendal Serna, PT PT - HOME VISIT 01/30/2024 9:00 AM CDT Home Care Visit [facility] [address] [place] [phone] Geneva Sanchez, LOS SN - INITIAL ASSESSMENT 01/25/2024 1:30 PM CDT Home Care Visit [facility] [address] [place] [phone] Coleman Greene, PT PT - HOME VISIT 01/25/2024 Travel 01/24/2024 1:00 PM CDT Home Care Visit [facility] [address] [place] [phone] Dar Phillips OT OT - INITIAL ASSESSMENT 01/24/2024 9:30 AM CDT Home Care Visit [facility] [address] [place] [phone] Fabiola Mathis MACHINING SUPERVISOR - HOME VISIT 01/24/2024 Home Care Visit [facility] [address] [place] [phone] Narcisa Atkinson, RN CARE COORDINATION 01/23/2024 Home Care Visit [facility] [address] [place] [phone] Narcisa Atkinson, RN CARE COORDINATION 01/20/2024 [facility] [address] [place] [address] Toshia Hooks NP Refill Request 01/18/2024 1:45 PM CDT Home Care Visit [facility] [address] [place] [phone] Kendal Serna, PT PT - OASIS START OF CARE 01/18/2024 10:30 AM CDT Phone Office Visit [facility] [address] [place] [address] Nikolai Ibarra MD 01/18/2024 Plan of Care Documentation [facility] [address] [place] [phone] 01/18/2024 Patient Outreach [facility] [address] [place] [address] Maria R Ho RN Primary RN Care Management; Hospital F/U (Lace 44) 01/18/2024 Travel from Last 3 Months Immunizations Name Administration Dates Next Due AMB Influenza, IIV3 (Age >=3 years)(Flu Clinic Only) 05/17/2013,05/06/2010 COVID-19 VACCINE SPIKEVAX (M ODERNA 50MCG/0.5ML) 12YO+ PFS 04/06/2024 COVID-19 vaccine (Pfizer-Bio NTech 30mcg/0.3mL) 12YO+ BIVALENT PF, MDV 04/28/2022 COVID-19 vaccine (Pfizer-Bio NTech 30mcg/0.3mL) PF, MDV 06/23/2021 Hepatitis B (Adult) 08/17/2019,02/06/2014,2013 Influenza A (H1N1), Inactivated 06/19/2009 Influenza A (H1N1), Inactiva audi (Age >=3 Years) 06/19/2009 Influenza, IIV3 (Age >=3 years) 05/06/20 14,05/17/2013,03/20/2012,2010,05/06/2010,03/19/2009,05/06/2008,1 ,05/11/2006,04/29/2005, 004,06/13/2003 Influenza, IIV4 04/28/2022, 1,05/18/2019,2017,04/06/2017 Influenza, IIV4 (=>6mos) MDV 03/18/2020,04/06/20 17 Influenza, [...] PHQ-2 Answer Date Recorded PHQ-2 TOTAL SCORE 3 04/13/2024 Social Connections Answer Date Recorded Frequency of [...] Sign Reading Time Taken Comments Blood Pressure 167/97 04/17/2024 9:12 AM CDT Pulse 76 04/17/2024 9:12 AM CDT Temperature 36.7 ??C (98 ??F) 04/17/2024 9:12 AM CDT Respiratory Rate 20 04/17/2024 9:12 AM CDT Oxygen Saturation 89% 04/17/2024 9:12 AM CDT Inhaled Oxygen Concentration - - Weight 85.3 kg (188 lb) 04/13/2024 11:10 AM CDT Height 152.4 cm (5') 01/12/2024 9:27 PM CDT Body Mass Index 36.72 01/12/2024 9:27 PM CDT Plan of Treatment Upcoming Encounters Date Type Department Care Team (Late st Contact Info) Description 04/20/2024 3:00 PM CDT Phone Office Visit [facility] [address] [facility] [address] [place] [phone] Romina Pro RN [address] [facility] [address] [place] [address] 04/21/2024 1:00 PM CDT Home Care Visit [place] [address] [place] [phone] Geneva Sanchez, LOS 04/24/2024 12:15 PM CDT Home Care Visit [address] [phone] Geneva Sanchez, LOS 04/27/2024 4:00 AM CDT Home Care Visit [facility] [address] [place] [phone] Geneva Sanchez, LOS 04/30/2024 4:00 AM CDT Home Care Visit [address] [place] [phone] Geneva Sanchez, LOS 05/03/2024 4:00 AM CDT Home Care Visit [address] [phone] Geneva Sanchez, LOS 05/04/2024 3:00 PM CDT Office Visit [facility] [address] [place] [address] Barbara Valentin DO [address] [place] [address] 05/04/2024 3:30 PM CDT Phone Office Visit [facility] [address] [place] [address] Nikolai Ibarra MD [address] [place] [address] 05/07/2024 4:00 AM ENDBANDER Home Care Visit [address] [phone] Geneva Sanchez, LOS 05/14/2024 4:00 AM ENDBANDER Home Care Visit [address] [phone] Geneva Sanchez, LOS 05/21/2024 4:00 AM ENDBANDER Home Care Visit [address] [phone] Geneva Sanchez, RN 05/28/2024 4:00 AM ENDBANDER Home Care Visit [address] [phone] Geneva Sanchez, RN 06/04/2024 4:00 AM ENDBANDER Appointment [address] [phone] Geneva Sanchez, LOS 06/15/2024 3:00 PM ENDBANDER Office Visit [facility] [address] [place] [address] Barbara Valentin DO [address] [place] [address] Health Maintenance Due Date Last Done Comments Zoster (shingles) series for age 50+ (1 of 2) 12/19/2011 Pap test for age 21-65 08/17/2015 08/17/2012, 2010 Tetanus booster 08/25/2020 08/25/2010, 12/04, 12/30/2002 Mammogram for age 45-75 04/28/2023 04/28/20, 03/02/2018, 07/26/2013, Additional history exists Influenza for age 50-64 03/04/2024 04/28/20, 04/28/2021, 03/18/2020, Additional history exists Fecal testing sDNA-FIT ([place] guard) for age 45-75 11/10/2024 11/10/2021 Depression screening for age 12+ 04/16/2025 04/16/2024, 04/16/2024, 04/13/2024, Additional history exists Pneumococcal series for age 6-64 (3 of 3 - PPSV23 or PCV20) 2026 08/17/2016, 08/14/2014, 07/04/2005, Additional history exists Lipids for age 45-75 04/28/2027 04/28/2022, 08/17/2019, 08/31/2018, Additional history exists Tdap Completed 08/25/2010 HIV for age 15-65 Completed 07/21/2015 Hepatitis C screening for ag e 18-79 Completed 02/16/2018 COVID-19 vaccine series Completed 04/06/20, 04/28/2022, 06/23/2021, Additional history exists Medical Devices Implanted Type Area Jewelry Finisher Device Identifier Shelf Expiration Date Model / Serial / Lot [id number] 2x12mm [[id number]] Implanted:Qty: 1 on 08/08/2008 at [facility] Explanted:at [facility] (Quantity not on file) [employer] [id number]# / [id number] / Stem Compnt Primary 8mm Mini - [id number] Implanted:Qty: 1 on 03/17/2011 at [facility] Right: Shoulder BIOMET [id number]# / / [id number] Head Hum Bio-Mod 28g30d3gs - [id number] Implanted:Qty: 1 on 03/17/2011 at [facility] Right: Shoulder BIOMET [id number]# / / [id number] Base Glenoid Hybrid 4mm Sm - [id number] Implanted:Qty: 1 on 03/17/2011 at [facility] Right: Shoulder BIOMET [id number]# / / [id number] Cmnt 1/2 [employer] - [id number] Implanted:Qty: 1 on 03/17/2011 at [facility] Right: Shoulder [employer] 6188-1- 0# / / [id number] Post Glenoid Hybrid Regenerex - [id number] Implanted:Qty: 1 on 03/17/2011 at [facility] Right: Shoulder BIOMET [id number] # / / [id number] Head Humeral 44x15 Co Cr Biomodular - [id number] Implanted:Qty: 1 on 07/12/2012 at [facility] Left: Shoulder BIOMET [id number]# / / [id number] Shoulder Stem Implanted:Qty: 1 on 07/12/2012 at [facility] Left: Shoulder [id number] / / [id number] Description:SHOULDER STEM Cmnt Bone 1/2 [employer] - [id number] Implanted:Qty: 1 on 07/12/2012 at [facility] Left: Shoulder [employer] 6188-1- 0# / / [id number] Post Glenoid Hybrid [employer]enerex - [id number] Implanted:Qty: 1 on 07/12/2012 at [facility] Left: Shoulder BIOMET [id number] # / / [id number] Base Glenoid Hybrid 4mm Sm - [id number] Implanted:Qty: 1 on 07/12/2012 at [facility] Left: Shoulder BIOMET [id number]# / / [id number] Procedures Procedure Name Priority Date/Time Associated Diagnosis Comments BASIC METABOLIC PANEL Routine 04/13/2024 11:50 AM CDT CKD (chronic kidney disease) stage 4, GFR 15-29 ml/min (HC) XR MAMMO BILAT SCREENING Routine 04/28/2022 [...] HIV 1/2 Add On 07/21/2015 9:40 AM ENDBANDER LIDAR ANALYST THIN PREP PAP SCREEN IMAGED Routine 08/17/2012 4:02 PM ENDBANDER Screening for malignant neoplasm of the cervix from Last 3 Months or Most Recently Relevant to Health Maintenance Results * (ABNORMAL) BASIC METABOLIC PANEL (04/13/2024 11:50 AM CDT) GLUCOSE 170(H) 65 - 99 mg/dL [facility] Comment: ? Fasting reference interval For someone without known diabetes, a glucose value >125 mg/dL indicates that they may have diabetes and this should be confirmed with a follow-up test. UREA NITROGEN (BUN) 23 7 - 25 mg/dL [facility] CREATININE 1.68(H) 0.50 - 1.05 mg/dL [facility] EGFR 34(L) > OR = 60 mL/min/1.7 3m2 [facility] BUN/CREATININE RATIO 14 6 - 22 (calc) [facility] SODIUM 142 135 - 146 mmol/L [facility] POTASSIUM 5.7(H) 3.5 - 5.3 mmol/L [facility] CHLORIDE 104 98 - 110 mmol/L [facility] CARBON DIOXIDE 29 20 - 32 mmol/L [facility] ELECTROLYTE BALANCE 9 7 - 17 mmol/L (calc) [facility] CALCIUM 8.8 8.6 - 10.4 mg/dL [facility] Blood BLOOD SPECIMEN / Unknown 04/13/2024 11:50 AM CDT 04/13/2024 11:51 AM CDT Barbara Valentin DO CHEMISTRY [facility] [address] [place] [address], [employer] [facility] [address] [place] [address] * XR MAMMO BILAT SCREENING (04/28/2022 2:04 [...] health care provider. XR MAMMO BILAT SCREENING [[id number]] CLINICAL HISTORY: ??This is an asymptomatic 61 y.o. patient. INDICATION FOR EXAM: Mammogram Screening. TECHNIQUE: CC & MLO views were obtained. ??This study was evaluated with the assistance of Computer-Aided Detection. COMPARISON FILM: Yes 03/02/18 [facility] 07/26/13 [facility] FINDINGS: ??The breasts are extremely dense, which lowers the sensitivity of mammography. There are no dominant masses, suspicious micro calcifications or areas of architectural distortion. Shania Montiel MD MAMMO * LIPID PANEL W REFLEX MEASURED LDL (04/28/2022 1:44 PM CDT) CHOLESTEROL,TOTAL 139 100 - 199 mg/dL 04/30/2022 6:25 PM CDT [facility] TRIGLYCERIDES 141 <150 mg/dL 04/30/2022 6:25 PM CDT [facility] HDL CHOLESTEROL 42 >40 [...] Shania Montiel MD CHEMISTRY Performing Organization Address City/[facility]/ZIP Co de Phone Number [facility] [address] [place] [address], * FECAL DNA (AKA COLOGUARD) (11/10/2021 1:00 PM CDT) Shania Montiel MD COMMUNICATION ORD * ANTI HCV [[id number]] (02/16/2018 4:20 PM CDT) HEPATITIS C ANTIBODY Non-React alex Non-React alex 02/17/2018 2:48 PM CDT [facility] Comment:Antibodies to HCV no t detected; does not exclude the possibility of exposure to HCV. Blood BLOOD SPECIMEN / Unknown Butterfly / Unknown 02/16/2018 4:20 PM CDT 02/16/2018 4:20 PM CDT Coleman Plata MD SEND OUTS [facility] [address] [place] [address], * HIV 1&2 TODAY (07/21/2015 9:40 AM ENDBANDER) Pathologist [facility] HIV-1/HIV-2 ANTIBODY Non-Reacti ve Non-Reacti ve 07/21/2015 10:31 AM ENDBANDER [facility] Blood specimen (specimen) BLOOD SPECIMEN / Unknown Venipuncture / Unknown 07/21/2015 9:40 AM ENDBANDER 07/21/2015 9:47 AM ENDBANDER Narrative [facility] - 07/21/2015 10:31 AM ENDBANDER HIV-1 p24 and HIV-1/HIV-2 Ab not detected Kait Morales DO SEND OUTS [facility] [address] [place] [address], * LIDAR ANALYST THIN PREP PAP SCREEN IMAGED (08/17/2012 4:02 PM ENDBANDER) Pathologist [facility] CYTOLOGY CYTOPATHOLOGY REPORT [facility] Status: Final Status ?[id number] CLINICAL INFORMATION Last Date of LMP ? :07/03/2012 Last Pap Date ?:02/01/2011 Last Pap Result ?:NIL ABN [place]/Bx Past 5 YRS :None Hormone Usage ?:BCP/OCP/Patch/R ing Menstrual Status ? :Regular Periods [place]/Bx done today ? :No Additional Information :None [...] ??08/18/12 ?? SIGNED: ??08/21/12 [facility] PAP [place] CODE NIL [facility] Tissue specimen (specimen) (Cervical/Vagina l) 08/17/2012 4:02 PM ENDBANDER 08/17/2012 4:00 PM ENDBANDER Coleman Plata MD PATHOLOGY/CYTOLOGY [facility] [place] ZIP [address] [place] [phone] from Last 3 Months or Most Recently [...] Urine earlier this year (per report from [facility], not available in [facility]), 04/19/18 L cheek abscess exclusions for contact precaution discontinuation (if > 12 months since positive culture): resides in acute/long term care pharmacist care, receiving hemodialysis, has chronic open wounds/skin [...] 8:01 PM 07/15/2012 6:55 PM Care Teams Document Manager Relationship Specialty Start Date End Date Barbie Barbara DO Patricia [address] [place] [address] PCP - General Family Practice 11/15/22 Julio Ibrahim MD [address] [place] [address] Surgery - Orthopedics 02/01/11 Chuy Doss MD [address] [place] [address] Surgery - Vascular 02/01/11 Markel Strong MD [address] [place] [address] Provider Family Practice 08/08/20 Nikolai Ibarra MD [address] [facility] [address] [place] [address] Endocrinology 09/07/22 [facility] [address] [place] [address] 04/07/24 Suad Ng/ Medica CM Clinic Director 07/14/17 [facility] Home Health Nurse 07/01/17 [facility] VESSEL SCRAPPER HELPER Services Home Health Aide 07/14/17 [facility] Engine Hostler/ Ally Morillom [address] [place] [address] Clinic Director 07/07/17
--- OUTSIDE RECORDS SUMMARY | 2024-04-19 15:10 | XMS_ITS | Encounter Summary ---
Author Organization [facility] Address [address] [place] [address] Care Team Providers Care Organ Pipe Voicer Name Role Phone Barbara Valentin DO Primary Care Provider [phone] Encounter Details Date Type Department Care Team (Late st Contact Info) Description 09/22/2023 Documentation Only [facility] [place] [address] [place] [address] No, Pcp Social History Tobacco Use Types Packs/Day Years Used Date Smoking Tobacco: Never Assessed Comments Unknown Sex and Gender Information Value Date Recorded Sex Assigned at Not on file Legal Sex Female 8:38 AM EDT Gender Identity Not on file Sexual Orientation Not on file documented as of this encounter Plan of Treatment Upcoming Encounters Date Type Department Care Team (Late st Contact Info) Description 05/12/2024 Orders Only [facility] [address] [place] [address] Gabriel Hicks MD [address] [place] [address] Chronic kidney disease, stage 4 (severe) (HCC) documented as of this encounter Visit Diagnoses Not on filedocumented in this encounter Care Teams Organ Pipe Voicer Relationship Specialty Start Date End Date Barbara [place] [address] PCP - General Family Medicine 09/22/23 documented as of this encounter
== END 2024-04-19 15:08 | disposition home or self-care (01) ==
LOC: WOUND 15:07
PROVIDERS: PCP Family Medicine; Visit Provider Family Medicine
DX: E11.621 Type 2 diabetes mellitus with foot ulcer (principal); L97.422 Non-pressure chronic ulcer of left heel and midfoot with fat layer exposed; M14.672 Charcot's joint, left ankle and foot; Z79.4 Long term (current) use of insulin
CPT/HCPCS: 11042

== ENCOUNTER 2024-04-26 15:19 | Outpatient (CLI) | payer OTHER, SELFPAY ==
--- OUTSIDE RECORDS SUMMARY | 2024-04-26 15:22 | XMS_ITS | Encounter Summary ---
Author Organization [facility] Address [address] [place] [address] Care Team Providers Care Homemaking Rehabilitation Consultant Name Role Phone Barbara Valentin DO Primary Care Provider [phone] Encounter Details Date Type Department Care Team (Late st Contact Info) Description 01/23/2024 Documentation Only [facility] [address] [place] [phone] Ronnell Kirby [address] [place] [address] Social History Tobacco Use Types [...] of [facility] [place] [address] [place] [id number] Gabriel Hciks MD [address] [facility] [place] [phone] Chronic kidney disease, stage 4 (severe) (HCC) [...] 47(L) [facility] Blood (Blood, Venous) 01/17/2024 Result [facility] Provider MD LAB BLOOD ORDERABLES Dania l Result Performing Organization Address [facility] Co de Phone Number [facility] * (ABNORMAL) Creatine (01/16/2024) Creatine, Serum 1.28(H) [facility] GFR Calculated 47(L) [facility] Blood (Blood, Venous) 01/16/2024 Result [facility] Provider MD LAB BLOOD ORDERABLES Dania l Result Performing Organization Address [facility] de Phone Number [facility] * (ABNORMAL) Creatine (01/15/2024) Creatine, Serum 1.71(H) [facility] GFR Calculated 34(L) [facility] Blood (Blood, Venous) 01/15/2024 Result [facility] Provider MD LAB BLOOD ORDERABLES Dania l Result Performing Organization Address [facility] de Phone Number [facility] * (ABNORMAL) Hemoglobin (01/15/2024) Hemoglobin 8.4(L) g/dL [facility] MCV 91.0 [facility] Blood (Blood, Venous) 01/15/2024 Result [facility] Provider MD LAB BLOOD ORDERABLES Dania l Result Performing Organization Address [facility] Co de Phone Number [facility] * (ABNORMAL) Basic Metabolic Panel (BMP) (01/14/2024) Sodium 144 mEq/L [facility] Potassium 4.4 mEq/L [facility] Chloride 112(H) [facility] Carbon Dioxide 23 mmol/L [facility] Calcium 8.4(L) mg/dL [facility] BUN 57(H) mg/dL [facility] Creatinine 2.61(H) mg/dL [facility] Glucose 179(H) mg/dL [facility] eGFR 20(L) [facility] Anion Gap 9 [facility] 01/14/2024 Result [facility] Provider MD LAB BLOOD ORDERABLES Dania l Result Performing Organization Address [facility]/ZIP Co de Phone Number [facility] * (ABNORMAL) CBC (01/14/2024) WBC 8.5 K/uL [facility] Red Blood Cell Count 3.04(L) [facility] Hemoglobin 8.9(L) g/dL [facility] Hematocrit 27.5(L) % [facility] MCV 91 [facility] MCH 29.3 [facility] MCHC 32.4 [facility] RDW 14.4 [facility] Platelet Count 198 [facility] MPV 11.4(H) [facility] Blood (Blood, Venous) 01/14/2024 Result [facility] Provider MD LAB BLOOD ORDERABLES Dania l Result Performing Organization Address [facility] Co de Phone Number [facility] * (ABNORMAL) Basic Metabolic Panel (BMP) (01/13/2024) Sodium 143 mEq/L [facility] Potassium 4.6 mEq/L [facility] Chloride 111(H) [facility] Carbon Dioxide 21(L) mmol/L [facility] Calcium 8.0(L) mg/dL [facility] BUN 65(H) mg/dL [facility] Creatinine 3.10(H) mg/dL [facility] Glucose 143(H) mg/dL [facility] eGFR 16(L) [facility] Anion Gap 11 [facility] 01/13/2024 Result [facility] Provider MD LAB BLOOD ORDERABLES Dania l Result Performing Organization Address [facility] Co de Phone [...] on filedocumented in this encounter Care Teams Homemaking Rehabilitation Consultant Relationship Specialty Start Date End Date Barbara Valentin DO [address] [place] [address] PCP - General Family Medicine 09/22/23 documented as of this encounter
--- OUTSIDE RECORDS SUMMARY | 2024-04-26 15:22 | XMS_ITS | Encounter Summary ---
Author Organization [facility] Address [address] [place] [address] Care Team Providers Care Manager Drive Name Role Phone Barbara Valentin DO Primary Care Provider [phone] Encounter Details Date Type Department Care Team (Late st Contact Info) Description 02/01/2024 Telephone [facility] [place] [address] [place] [address] Gabriel Hicks MD [address] [place] [address] Social History Tobacco Use Types [...] [facility] [address] [place] [address] Gabriel Hicks MD [address] [facility] [address] [address] Chronic kidney disease, stage 4 (severe) (HCC) documented as of this encounter Visit Diagnoses Not on filedocumented in this encounter Care Teams Manager Drive Relationship Specialty Start Date End Date Barbara Valentin DO [address] [place] [address] PCP - General Family Medicine 09/22/23 documented as of this encounter
--- OUTSIDE RECORDS SUMMARY | 2024-04-26 15:22 | XMS_ITS | Encounter Summary ---
Author Organization [facility] Address [address] [place] [address] Care Team Providers Care Assistant Guest Services Manager Name Role Phone Barbara Valentin DO Primary Care Provider [phone] Encounter Details Date Type Department Care Team (Late st Contact Info) Description 09/22/2023 Documentation Only [facility] [place] [address] [place] [address] No, Pcp Social History Tobacco [...] [facility] [place] [address] [place] [address] Gabriel Hicks MD [address] [place] [address] Chronic kidney disease, stage 4 (severe) (HCC) documented as of this encounter Visit Diagnoses Not on filedocumented in this encounter Care Teams Assistant Guest Services Manager Relationship Specialty Start Date End Date Barbara [place] [address] PCP - General Family Medicine 09/22/23 documented as of this encounter
--- OUTSIDE RECORDS SUMMARY | 2024-04-26 15:22 | XMS_ITS | Encounter Summary ---
Author Organization [facility] Address [address] [place] [address] Care Team Providers Care Convict Guard Name Role Phone Barbara Valentin DO Primary Care Provider [phone] Encounter Details Date Type Department Care Team (Late st Contact Info) Description 01/23/2024 Office Communication [facility] [place] [address] [place] [address] Ronnell Kirby [address] [place] [address] Social History Tobacco Use Types [...] [facility] [address] [place] [address] Gabriel Hicks MD [address] [facility] [place] [phone] Chronic kidney disease, stage 4 (severe) (HCC) documented as of this encounter Visit Diagnoses Not on filedocumented in this encounter Care Teams Convict Guard Relationship Specialty Start Date End Date Barbara Valentin DO [address] [place] [address] PCP - General Family Medicine 09/22/23 documented as of this encounter
--- OUTSIDE RECORDS SUMMARY | 2024-04-26 15:22 | XMS_ITS | Clinical Summary ---
Author Organization [facility] Address [address] [facility] [place] [address] Phone Care Team Providers Care Nitroglycerin Nitrator Operator Batch Name Role Phone Barbara Valentin DO Primary Care Provider [phone] Allergies Active Allergy Reactions Criticality Noted Date [...] One Pack) 3 MG/DOSE powder Inhale 1 Matthews into affected nostril(s) each time if needed [...] Team Description 02/01/2024 Telephone [facility] [place] [address] [facility] [address] [place] [address] Gabriel Hicks MD from Last 3 Months Immunizations Name Administration [...] [facility] [place] [place] [address] [place] [address] Gabriel Hicks MD [address] [place] [address] Chronic kidney disease, stage 4 (severe) [...] Additional history exists Diabetes: Hemoglobin A1C 04/13/2024 07 024, 12/23/2023, 09/21/2023 Hepatitis B Vaccine Aged Out No longe r eligible based on patient's age to complete this topic Insurance MEDICA DUAL [facility] [place] ([id number]) [place] [id number] Care Teams Nitroglycerin Nitrator Operator Batch Relationship Specialty Start Date End Date Barbara [place] [address] PCP - General Family Medicine 09/22/23
--- OUTSIDE RECORDS SUMMARY | 2024-04-26 15:23 | XMS_ITS | Clinical Summary ---
Author Organization [facility] Address [place], [place] [address] Care Team Providers Care Underliner Name Role Phone Julio Ibrahim MD Unavailable Chuy Doss MD Unavailable Markel Strong MD Unavailable [phone] Nikolai Ibarra MD Unavailable [phone] Barbara Valentin DO Primary Care Provider [phone] [facility] Allergies Active Allergy Reactions Criticality Noted [...] nasal solution (FLONASE)Indicati ons:Nasal congestion Inhale 1 [place] into affected nostril(s) once daily. Inhale 1 [place] in the nostril(s) once daily. 16 g [...] continuous glucose monitor READER (FreeStyle Elli 2 [place])Indication s:Type 1 diabetes mellitus with other specified complication (HC) To be used to read blood sugars per beam press operator's directions. 1 Each 05/19/20 23 [...] be used to read blood sugars per beam press operator's directions. 6 Each 3 09/06/19 [...] Chronic, continuous use of opioids Inhale 1 [place] into affected nostril(s) each time if needed [...] once daily. 30 Capsule 03/16/20 24 Active amLODIPine (NORVASC) 2.5 mg tabletIndications [...] mellitus at risk of hypoglycemia Inhale 1 [place] into affected nostril(s) each time if needed for Severe Hypoglycemia. Roll on side and call 911 after administration. 2 Each 04/13/20 Active albuterol-ipratro pium (DUONEB) (2.5-0.5 mg) in [...] day 15 mL 3 04/16/20 24 Active oxyCODONE (ROXICODONE) 5 mg immediate release tabletIndications :Chronic pain syndrome,Neuropat hy due to secondary diabetes (HC) Si p.o. B.I.D. / PRN For O.A. pain or Diabetic P.N. Pain ; max: 2 a day. Use dates: 04/21/24-05/20/24 60 Tablet 04/20/20 Active glucagon (Baqsimi) 3 mg/actuation nasal sprayIndications: patient with diabetes mellitus at risk of hypoglycemia Inhale 1 [place] into affected nostril(s) each time if needed for Severe Hypoglycemia. Roll on side and call 911 after administration. 2 Each 12/25/19 Discontinued(Re order (E-cancel not sent)) naloxone (NARCAN) [...] 2 03/20/20 24 024 Discontinued(*M edication adjustment) oxyCODONE (ROXICODONE) 5 mg immediate release tabletIndications :Chronic pain syndrome,Neuropat hy due to secondary diabetes (HC) Si p.o. B.I.D. / PRN For O.A. pain or Diabetic P.N. Pain ; max: 2 a day. Use dates: 03/22/24-04/20/24 60 Tablet 03/19/20 24 024 Discontinued(Re order (E-cancel not sent)) insulin lispro, U-100, (HumaLOG KwikPen Insulin) 100 [...] agreement signed - 10/07/23 10/07/2023 Overview (10/07/2023): [facility] Noemí Claudioi .................... 10/07/2023 4:39 PM [...] Encounters Date Type Department Care Team Description 04/24/2024 9:00 AM CDT Home Care Visit [facility] [address] [place] [address] Geneva Sanchez RN SN - HOME VISIT 04/21/2024 1:00 PM CDT Home Care Visit [facility] [address] [place] [address] Geneva Sanchez RN SN - HOME VISIT 04/21/2024 Telephone [facility] [address] [place] [address] Barbara Valentin, Home Care (Update) 04/20/2024 Telephone [facility] [address] [facility] [address] [place] [address] Romina Pro, LOS Failed Appointment 04/20/2024 Refill [facility] [address] [place] [address] Toshia Hooks NP Refill Request 04/20/2024 Telephone [facility] [address] [place] [address] Barbara Valentin, DO Diabetes (/) 04/17/2024 9:00 AM CDT Home Care Visit [facility] [address] [place] [address] Geneva Sanchez RN SN - HOME VISIT 04/17/2024 Telephone [facility] [address] [place] [address] Geneva Sanchez RN Home Care 04/16/2024 Telephone [facility] [address] [place] [address] Barbara Valentin, Results 04/16/2024 Patient Outreach [facility] Care Management - Care Management Navigation/[facility] [address] [place] [address] Aide Rol[address] [facility] (Care Guide Breast Cancer Screening outreach/) 04/13/2024 11:00 AM CDT Office Visit [facility] [address] [place] [address] Barbara Valentin Patricia, DO Follow Up (Diabetes, home care, medications) 04/13/2024 1:20 AM CDT Home Care Visit [facility] [address] [place] [phone] Coleman Rock, RN SN - WOUND/OSTOMY CHART CONSULT 04/13/2024 Refill [facility] [address] [place] [address] Barbara Valentin Patricia, DO Refill Request (need changes/clarificatio n) 04/13/2024 Travel 04/12/2024 9:00 AM CDT Home Care Visit [facility] [address] [place] [address] Geneva Sanchez, LOS SN - OASIS START OF CARE 04/12/2024 Orders Only [facility] [address] [place] [address] Barbara Valentin Patricia, DO <No scans attached> 04/12/2024 Telephone [facility] [address] [place] [address] Geneva Sanchez, video producer 04/12/2024 Patient Outreach [facility] Care Management - Care Management Navigation/[facility] [address] [place] [address] Aide Rolon [facility] (Care Guide Breast Cancer Screening outreach/) 04/12/2024 Plan of Care Documentation [facility] [address] [place] [phone] 04/09/2024 Patient Outreach [facility] Care Management - Care Management Navigation/[facility] [address] [place] [address] Aide Rol[address] [facility] (Care Guide Breast Cancer Screening outreach/) 04/09/2024 Home Care Visit [facility] [address] [place] [phone] Elvi Meeyrs RN CARE COORDINATION 04/06/2024 11:25 AM CDT Office Visit [facility] [address] [place] [address] Shaqra, Barbara Patricia, DO Hospital F/U (Hypoglycemia - ER/hospital 03/29, 04/06 ) 04/06/2024 Orders Only [facility] [address] [place] [address] Nikolai Ibarra MD <No scans attached> 04/06/2024 Travel 04/04/2024 Refill [facility] [address] [place] [address] Shaqra, Barbara Patricia, DO Refill Request (Amlodipine, Omeprazole) 03/27/2024 Telephone [facility] [address] [place] [address] Shaqra, Barbara Patricia, DO Questions 03/16/2024 Refill [facility] [address] [place] [address] Toshia Hooks NP Refill Request 03/14/2024 10:30 AM CDT Home Care Visit [facility] [address] [place] [address] Geneva Sanchez RN SN - OASIS DISCHARGE 03/12/2024 Refill [facility] [address] [place] [address] Shaqra, Barbara Patricia, DO Refill Request (Pregabalin, Fluoxetine, Duloxetine) 03/06/2024 10:00 AM CDT Home Care Visit [facility] [address] [place] [address] Geneva Sanchez, RN SN - HOME VISIT 03/06/2024 9:15 AM CDT Home Care Visit [facility] [address] [place] [address] Alex Contreras GEOLOGY PROFESSOR - HOME VISIT 03/03/2024 Home Care Visit [facility] [address] [place] [address] Nitza Riojas LISW CARE COORDINATION 02/28/2024 2:00 PM CDT Home Care Visit [facility] [address] [place] [address], [place] [address] Shania Elaine, RN SN - HOME VISIT 02/28/2024 10:45 AM CDT Home Care Visit [facility] [address] [place] [address], [place] [address] Fabiola Mathis GEOLOGY PROFESSOR - HOME VISIT 02/25/2024 Home Care Visit [facility] [address] [place] [phone] Nitza Riojas LISW CARE COORDINATION 02/22/2024 3:00 PM CDT Home Care Visit [facility] [address] [place] [phone] Trini Hitchcock, LOS SN - HOME VISIT 02/22/2024 Home Care Visit [facility] [address] [place] [phone] Dar Phillips, OT OT - DISCIPLINE DISCHARGE 02/21/2024 9:45 AM CDT Home Care Visit [facility] [address] [place] [phone] Alex Contreras GEOLOGY PROFESSOR - HOME VISIT 02/20/2024 Home Care Visit [facility] [address] [place] [phone] Nitza Riojas LISW POKER SUPERVISOR - INITIAL ASSESSMENT 02/16/2024 Refill [facility] [address] [place] [address] Toshia Hooks NP Refill Request (oxyCODONE (ROXICODONE) 5 mg immediate release tablet ) 02/15/2024 3:45 PM CDT Home Care Visit [facility] [address] [place] [phone] Coleman Greene, PT PT - DISCIPLINE DISCHARGE 02/15/2024 11:00 AM CDT Home Care Visit [facility] [address] [place] [phone] Geneva Sanchez, LOS SN - HOME VISIT 02/14/2024 12:00 PM CDT Home Care Visit [facility] [address] [place] [address] Joi Moreno, VARELA OT - HOME VISIT 02/14/2024 8:15 AM CDT Home Care Visit [facility] [address] [place] [address] Fabiola Mathis GEOLOGY PROFESSOR - HOME VISIT 02/10/2024 3:30 PM CDT Home Care Visit [facility] [address] [place] [address] Joi Moreno VARELA OT - HOME VISIT 02/10/2024 Home Care Visit [facility] [address] [place] [address] Nitza Riojas LISW POKER SUPERVISOR - CASE COMMUNICATION 02/09/2024 Refill [facility] [address] [place] [address] Barbara Valentin DO Refill Request (Duloxetine) 02/08/2024 3:00 PM CDT Home Care Visit [facility] [address] [place] [address] Veda Resendiz RN SN - WOUND/OSTOMY CHART CONSULT 02/08/2024 9:00 AM CDT Home Care Visit [facility] [address] [place] [address] Geneva Sanchez RN SN - HOME VISIT 02/08/2024 Telephone [facility] [address] [place] [address] Barbara Valentin DO Pharmacist Medication Management (MEDICATION CHANGE) 02/08/2024 Telephone [facility] [address], [place] [address] Geneva Sanchez, lamp shade sewer List Update 02/07/2024 4:00 PM CDT Home Care Visit [facility] [address] [place] [address] Joi Moreno VARELA OT - HOME VISIT 02/07/2024 9:30 AM CDT Home Care Visit [facility] [address] [place] [address] Kendal Serna, PT PT - HOME VISIT 02/07/2024 Telephone [facility] [address] [place] [address] Saúlqra Barbara Patricia, DO Refill Request (Insulin lispro pens) 02/04/2024 Refill [facility] [address] [place] [address] Shaqra, Barbara Patricia, DO Refill Request (Insulin Lispro) 02/03/2024 9:00 AM CDT Home Care Visit [facility] [address] [place] [address] Joi Moreno VARELA OT - HOME VISIT 02/02/2024 11:00 AM CDT Home Care Visit [facility] [address] [place] [address] Kendal Serna, PT PT - HOME VISIT 02/01/2024 4:00 PM CDT Home Care Visit [facility] [address] [place] [address] Joi Moreno VARELA OT - HOME VISIT 01/31/2024 9:30 AM CDT Home Care Visit [facility] [address] [place] [address] Fabiola Mathis GEOLOGY PROFESSOR - HOME VISIT 01/31/2024 Home Care Visit [facility] [address] [place] [address] Oumou Burns, RN CARE COORDINATION 01/31/2024 Home Care Visit [facility] [address] [place] [address] Oumou Burns, RN CARE COORDINATION 01/30/2024 10:45 AM CDT Home Care Visit [facility] [address] [place] [address] Kendal Serna, PT PT - HOME VISIT 01/30/2024 9:00 AM CDT Home Care Visit [facility] [address] [place] [address] Geneva Sanchez, LOS SN - INITIAL ASSESSMENT 01/25/2024 1:30 PM CDT Home Care Visit [facility] [address] [place] [address] Coleman Greene, PT PT - HOME VISIT 01/25/2024 Travel from Last 3 Months Immunizations Name Administration Dates Next Due AMB Influenza, IIV3 (Age >=3 years)(Flu Clinic Only) 05/17/2013,05/06/2010 COVID-19 VACCINE SPIKEVAX (M ODERNA 50MCG/0.5ML) 12YO+ PFS 04/06/2024 COVID-19 vaccine (Med[employer]ric [employer]-Bio NTech 30mcg/0.3mL) 12YO+ BIVALENT PF, MDV 04/28/2022 COVID-19 vaccine ([employer]-Bio NTech 30mcg/0.3mL) PF, MDV 06/23/2021 Hepatitis B [...] 1 09/21/2023 Food Insecurity Answer Date Recorded Do you worry your food will run out before you are able to buy more? 2 09/21/2023 Transportation Needs Answer Date Record ed Lack of Transportation (Medical) 2 09/21/2023 Housing Stability Answer Date Recorded What is your housing situation today? 2 09/21/2023 Sex and Gender Information Value [...] Sign Reading Time Taken Comments Blood Pressure 154/69 04/24/2024 9:36 AM CDT Pulse 75 04/24/2024 9:36 AM CDT Temperature 36.6 ??C (97.9 ??F) 04/24/2024 9:36 AM CD T Respiratory Rate 18 04/24/2024 9:36 AM CDT Oxygen Saturation 97% 04/24/2024 9:36 AM CDT Inhaled Oxygen Concentration - - Weight 93.6 kg (206 lb 6.4 oz) 04/24/2024 9:36 A M CDT Height 152.4 cm (5') 01/12/2024 9:27 PM CDT Body Mass Index 40.31 01/12/2024 9:27 PM CDT Plan of Treatment Upcoming Encounters Date Type Department Care Team (Late st Contact Info) Description 04/27/2024 10:30 AM CDT Home Care Visit [address] [address] Geneva Sanchez, LOS 04/30/2024 4:00 AM CDT Home Care Visit [address] [address] Geneva Sanchez, LOS 05/03/2024 4:00 AM CDT Home Care Visit [address] [address] Geneva Sanchez RN 05/04/2024 3:00 PM CDT Office Visit [facility] [address] [place] [address] Barbara Valentin, [address] [place] [address] 05/04/2024 3:30 PM CDT Phone Office Visit [facility] [address] [facility] [address] [facility] [address] [place] [address] Nikolai Ibarra MD [address] [facility] [address] [place] [address] 05/07/2024 4:00 AM SALES AND MARKETING MANAGER Home Care Visit [address] [address] Geneva Sanchez RN 05/14/2024 4:00 AM SALES AND MARKETING MANAGER Home Care Visit [address] [address] Geneva Sanchez, LOS 05/21/2024 4:00 AM SALES AND MARKETING MANAGER Home Care Visit [facility] [address] [place] [address] Geneva Sanchez, LOS 05/28/2024 4:00 AM SALES AND MARKETING MANAGER Home Care Visit [facility] [address] [place] [address] Geneva Sanchez, LOS 06/04/2024 4:00 AM SALES AND MARKETING MANAGER Appointment [facility] [address] [place] [address] Geneva Sanchez, LOS 06/15/2024 3:00 PM SALES AND MARKETING MANAGER Office Visit [facility] [address] [place] [address] Barbara Valentin, DO [address] [place] [address] Health Maintenance Due Date Last Done Comments Zoster (shingles) series for age 50+ (1 of 2) 12/19/2011 Pap test for age 21-65 08/17/2015 08/17/2012, 2010 Tetanus booster 08/25/2020 08/25/2010, 12/04, 12/30/2002 Mammogram for age 45-75 04/28/2023 04/28/20, 03/02/2018, 07/26/2013, Additional history exists Influenza for age 50-64 03/04/2024 04/28/20, 04/28/2021, 03/18/2020, Additional history exists Fecal testing sDNA-FIT (Crawley guard) for age 45-75 11/10/2024 11/10/2021 Depression [...] history exists Medical Devices Implanted Type Area Electrical And Instrument Engineer Device Identifier Shelf Expiration Date Model / Serial / Lot [id number] 2x12mm [[id number]] Implanted:Qty: 1 on 08/08/2008 at [facility] Explanted:at [facility] (Quantity not on file) [employer] [id number]# / [id number] / Stem Compnt Primary 8mm Mini - [id number] Implanted:Qty: 1 on 03/17/2011 at [facility] Right: Shoulder BIOMET [id number]# / / [id number] Head Hum Bio-Mod [id number] - [id number] Implanted:Qty: 1 on 03/17/2011 at [facility] Right: Shoulder BIOMET 529659# / / [id number] Base Glenoid Hybrid 4mm Sm - [id number] Implanted:Qty: 1 on 03/17/2011 at [facility] Right: Shoulder BIOMET [id number]# / / [id number] Cmnt 1/2 Dosehowmedica - [id number] Implanted:Qty: 1 on 03/17/2011 at [facility] Right: Shoulder [employer] 6188-1-01 0# / / [id number] Post Glenoid Hybrid Regenerex - [id number] Implanted:Qty: 1 on 03/17/2011 at [facility] Right: Shoulder BIOMET [id number] # / / [id number] Head Humeral 44x15 Co Cr Biomodular - [id number] Implanted:Qty: 1 on 07/12/2012 at [facility] Left: Shoulder BIOMET [id number]# / / [id number] Shoulder Stem Implanted:Qty: 1 on 07/12/2012 at [facility] Left: Shoulder [id number] / / [id number] Description:SHOULDER STEM Cmnt Bone 1/2 Dosehowmed[employer] - [id number] Implanted:Qty: 1 on 07/12/2012 at [facility] Left: Shoulder [employer] 6188-1-01 0# / / [id number] Post Glenoid Hybrid Regenerex - [id number] Implanted:Qty: 1 on 07/12/2012 at [facility] Left: Shoulder BIOMET [id number] # / / [id number] Base Glenoid Hybrid 4mm Sm - [id number] Implanted:Qty: 1 on 07/12/2012 at [facility] Left: Shoulder BIOMET [id number]# / / [id number] Procedures Procedure Name Priority Date/Time Associated Diagnosis [...] HIV 1/2 Add On 07/21/2015 9:40 AM SALES AND MARKETING MANAGER MANAGER OF CHANGE THIN PREP PAP SCREEN IMAGED Routine 08/17/2012 4:02 PM SALES AND MARKETING MANAGER Screening for malignant neoplasm of the cervix from Last 3 Months or Most Recently Relevant to Health Maintenance Results * (ABNORMAL) BASIC METABOLIC PANEL (04/13/2024 11:50 AM CDT) GLUCOSE 170(H) 65 - 99 mg/dL [facility] Wagner Comment: ? Fasting reference interval For someone [...] 11:51 AM CDT Barbara Valentin DO CHEMISTRY [facility] [address] [place] [address], [facility] [address] [place] [address] * XR MAMMO BILAT SCREENING (04/28/2022 2:04 [...] health care provider. XR MAMMO BILAT SCREENING [[id number]] CLINICAL HISTORY: ??This is an asymptomatic 61 y.o. patient. INDICATION FOR EXAM: Mammogram Screening. TECHNIQUE: CC & MLO views were obtained. ??This study was evaluated with the assistance of Computer-Aided Detection. COMPARISON FILM: Yes 03/02/18 [facility]13 [facility] FINDINGS: ??The breasts are extremely dense, which lowers the sensitivity of mammography. There are no dominant masses, suspicious micro calcifications or areas of architectural distortion. Shania Montiel MD MAMMO * LIPID PANEL W REFLEX MEASURED LDL (04/28/2022 1:44 PM CDT) CHOLESTEROL,TOTAL 139 100 - 199 mg/dL 04/30/2022 6:25 PM CDT [facility] TRIGLYCERIDES 141 <150 mg/dL 04/30/2022 6:25 PM CDT [facility] HDL CHOLESTEROL 42 >40 mg/dL 6:25 PM CDT [facility] NON-HDL CHOLESTEROL 97 <145 mg/dl 04/30/2022 6:25 PM CDT [facility] CHOL/HDL RATIO 3.31 <4.50 04/30/2022 6:25 PM CDT [facility] LDL CHOLESTEROL 69 [...] 1:45 PM CDT Shania Montiel MD CHEMISTRY [facility] [address] [place] [address], [place] * FECAL DNA (AKA COLOGUARD) (11/10/2021 1:00 PM CDT) Shania Montiel MD COMMUNICATION ORD * ANTI HCV [80179.2] (02/16/2018 4:20 PM CDT) Pathologist [facility] HEPATITIS C ANTIBODY Non-React alex Non-React alex 02/17/2018 2:48 PM CDT [facility] Comment:Antibodies to HCV no t detected; does not exclude the possibility of exposure to HCV. Blood BLOOD SPECIMEN / Unknown Butterfly / Unknown 02/16/2018 4:20 PM CDT 02/16/2018 4:20 PM CDT Coleman Plata MD SEND OUTS [facility] [address] [place] [address], [place] * HIV 1&2 TODAY (07/21/2015 9:40 AM SALES AND MARKETING MANAGER) Pathologist [facility] HIV-1/HIV-2 ANTIBODY Non-Reacti ve Non-Reacti ve 07/21/2015 10:31 AM SALES AND MARKETING MANAGER [facility] Blood specimen (specimen) BLOOD SPECIMEN / Unknown Venipuncture / Unknown 07/21/2015 9:40 AM SALES AND MARKETING MANAGER 07/21/2015 9:47 AM SALES AND MARKETING MANAGER Narrative [facility] - 07/21/2015 10:31 AM SALES AND MARKETING MANAGER HIV-1 p24 and HIV-1/HIV-2 Ab not detected Kait Morales DO SEND OUTS [facility] [address] [place] [address], [place] * MANAGER OF CHANGE THIN PREP PAP SCREEN IMAGED (08/17/2012 4:02 PM SALES AND MARKETING MANAGER) Pathologist [facility] CYTOLOGY CYTOPATHOLOGY REPORT [facility] Status: Final Status ?[id number] CLINICAL INFORMATION Last Date of LMP ? :07/03/2012 Last Pap Date ?:02/01/2011 Last Pap Result ?:NIL ABN Harrison/Bx Past 5 YRS :None Hormone Usage ?:BCP/OCP/Patch/R ing Menstrual Status ? :Regular Periods Harrison/Bx done today ? :No Additional Information :None [...] specimen (specimen) (Cervical/Vagina l) 08/17/2012 4:02 PM SALES AND MARKETING MANAGER 08/17/2012 4:00 PM SALES AND MARKETING MANAGER Coleman Plata MD PATHOLOGY/CYTOLOGY [facility] INTERNAL ZIP [id number] [place] [address] from Last 3 Months or Most Recently [...] 8:01 PM 07/15/2012 6:55 PM Care Teams Underliner Relationship Specialty Start Date End Date Barbara Valentin DO [address] [place] [address] PCP - General Family Practice 11/15/22 Julio Ibrahim MD [address] [place] [id number] Surgery - Orthopedics 02/01/11 Chuy Doss MD [address] [place] [address] Surgery - Vascular 02/01/11 Markel Strong MD [address] [place] [address] Provider Family Practice 08/08/20 Nikolai Ibarra MD [address] [facility] [address] [place] [address] Endocrinology 09/07/22 [facility] [address], [place] [address] 04/07/24 Suad Ng/ [employer] CM Director Of Compensation 07/14/17 [facility] Home Health Nurse 07/01/17 [facility] FLORICULTURE TEACHER Services Home Health Aide 07/14/17 [facility] Tower Foreman/ Ally Christianson [address] [place] [address] Director Of Compensation 07/07/17
== END 2024-04-26 15:20 | disposition home or self-care (01) ==
LOC: WOUND 15:19
PROVIDERS: PCP Family Medicine; Visit Provider Nurse Practitioner Family
DX: E11.621 Type 2 diabetes mellitus with foot ulcer (principal); L97.422 Non-pressure chronic ulcer of left heel and midfoot with fat layer exposed; M14.672 Charcot's joint, left ankle and foot; Z79.4 Long term (current) use of insulin
CPT/HCPCS: 11042

== ENCOUNTER 2024-05-03 15:00 | Outpatient (CLI) | payer OTHER, SELFPAY ==
--- OUTSIDE RECORDS SUMMARY | 2024-05-03 15:02 | XMS_ITS | Encounter Summary ---
Author Organization [facility] Address [address] [place] [address] Care Team Providers Care Facer Operator Name Role Phone Barbara Valentin DO Primary Care Provider [phone] Encounter Details Date Type Department Care Team (Late st Contact Info) Description 02/01/2024 Telephone [facility] [address] [place] [address] Gabriel Hicks MD [address] [place] [address] Social History Tobacco Use Types [...] [facility] [address] [place] [address] Gabriel Hicks MD [address] [facility] [address] [address] Chronic kidney disease, stage 4 (severe) (HCC) documented as of this encounter Visit Diagnoses Not on filedocumented in this encounter Care Teams Facer Operator Relationship Specialty Start Date End Date Barbara Valentin DO [address] [place] [address] PCP - General Family Medicine 09/22/23 documented as of this encounter
--- OUTSIDE RECORDS SUMMARY | 2024-05-03 15:02 | XMS_ITS | Encounter Summary ---
Author Organization [facility] Address [address] [place] [address] Care Team Providers Care College Tutor Name Role Phone Barbara Valentin DO Primary Care Provider [phone] Encounter Details Date Type Department Care Team (Late st Contact Info) Description 09/22/2023 Documentation Only [facility] [address] [place] [address] No, Pcp Social History Tobacco [...] [facility] [address] [place] [address] Gabriel Hicks MD [address] [place] [address] Chronic kidney disease, stage 4 (severe) (HCC) documented as of this encounter Visit Diagnoses Not on filedocumented in this encounter Care Teams College Tutor Relationship Specialty Start Date End Date Barbara [place] [address] PCP - General Family Medicine 09/22/23 documented as of this encounter
--- OUTSIDE RECORDS SUMMARY | 2024-05-03 15:02 | XMS_ITS | Clinical Summary ---
Author Organization [facility] [place] Address [address] [facility] [place] [address] Phone Care Team Providers Care Fbi Sharpshooter Name Role Phone Barbara Valentin DO Primary Care Provider [phone] Allergies Active Allergy Reactions Criticality Noted Date [...] One Pack) 3 MG/DOSE powder Inhale 1 [place] into affected nostril(s) each time if needed [...] Team Description 02/01/2024 Telephone [facility] [address] [facility] [address] [place] [address] Gabriel Hicks MD from Last [...] [facility] [place] [address] [place] [address] Gabriel Hicks MD [id number] [place] [address] Chronic kidney disease, stage 4 (severe) [...] to complete this topic Insurance MEDICA DUAL [facility] [place] ([id number]) [place] [id number] Care Teams Fbi Sharpshooter Relationship Specialty Start Date End Date Barbara Valentin [place] [address] PCP - General Family Medicine 09/22/23
--- OUTSIDE RECORDS SUMMARY | 2024-05-03 15:03 | XMS_ITS | Clinical Summary ---
Author Organization [facility] Address [place], [place] [address] Care Team Providers Care Senior Application Security Consultant Name Role Phone Julio Ibrahim MD Unavailable Chuy Doss MD Unavailable [phone] Markel Strong MD Unavailable Nikolai Ibarra MD Unavailable Barbara Valentin DO Primary Care Provider [facility] Allergies Active Allergy Reactions Criticality [...] nasal solution (FLONASE)Indicati ons:Nasal congestion Inhale 1 [place] into affected nostril(s) once daily. Inhale 1 [place] in the nostril(s) once daily. 16 g [...] continuous glucose monitor READER (FreeStyle Elli 2 [place])Indication s:Type 1 diabetes mellitus with other specified complication (HC) To be used to read blood sugars per railroad car repairman's directions. 1 Each 05/19/20 23 Active blood-glucose meterIndications: Type 1 diabetes mellitus with other specified complication (HC) As directed. Dispense meter, test strips, lancets covered by pt ins. E10.9 IDDM type I - Test 4 times/day. Reason: Unstable diabetes 1 Each 05/19/20 23 Active lancetsIndication s:Type 1 diabetes mellitus with other specified complication (HC) As directed. Test 4 times per day. 400 Each 3 05/19/20 23 Active continuous glucose monitor SENSOR KIT (FreeStyle Elli 2 Sensor)Indication s:Type 1 diabetes mellitus with other specified complication (HC) As directed. To be used to read blood sugars per railroad car repairman's directions. 6 Each 3 09/06/19 24 Active [...] (NovoFine Plus) 32 gauge x 1/6 ndleIndications:D iabecelso mellitus type 1 with complications (HC) Inject [...] Chronic, continuous use of opioids Inhale 1 [place] into affected nostril(s) each time if needed [...] mellitus at risk of hypoglycemia Inhale 1 [place] into affected nostril(s) each time if needed for Severe Hypoglycemia. Roll on side and call 911 after administration. 2 Each 11 04/13/20 24 Active albuterol-ipratro pium (DUONEB) (2.5-0.5 mg) in 3 mL NEBULIZATION solutionIndicatio ns:Chronic obstructive pulmonary disease, unspecified COPD type (HC) Inhale 3 mL via a nebulizer every 6 hours if needed for Shortness of Breath 2nd choice or Wheezing 2nd choice. 180 mL 3 04/16/20 Active insulin lispro, U-100, (HumaLOG KwikPen Insulin) [...] Use dates: 04/21/24-05/20/24 60 Tablet 04/20/20 Active blood sugar diagnostic (Blood Glucose Test) stripIndications: Type 1 diabetes mellitus with other specified complication (HC) Test 4 times per day. 400 Each 3 04/27/20 Active glucagon (Baqsimi) 3 mg/actuation nasal sprayIndications: patient with diabetes mellitus at risk of hypoglycemia Inhale 1 [place] into affected nostril(s) each time if needed for Severe Hypoglycemia. Roll on side and call 911 after administration. 2 Each 12/25/19 22 024 Discontinued(Re order (E-cancel not sent)) naloxone (NARCAN) 4 mg/actuation nasal sprayIndications: Chronic, continuous use of opioids [The details of the medication are not available because there are pending changes by a home health clinician.] 2 Each 2 01/29/20 23 024 Discontinued(*M edication adjustment) amLODIPine (NORVASC) 2.5 mg tabletIndications :Essential hypertension Take 1 Tablet (2.5 mg) by mouth two times daily. 180 Tablet 3 02/29/20 23 024 Discontinued blood sugar diagnostic (Blood Glucose Test) stripIndications: Type 1 diabetes mellitus with other specified complication (HC) Test 4 times per day. 400 Each 3 05/19/20 23 024 Discontinued(Re order (E-cancel not sent)) torsemide (DEMADEX) 20 mg tabletIndications :Hyperkalemia,Loc alized [...] Use dates: 03/22/24-04/20/24 60 Tablet 03/19/20 24 Discontinued(Re order (E-cancel not sent)) insulin lispro, U-100, (HumaLOG KwikPen Insulin) 100 unit/mL inpn penIndications:Di abetes mellitus type 1 with complications (HC) 10 units with breakfast, 6 units with lunch, 8 units with dinner, plus Corrective dose insulin as needed, up to 45 units / day 10 mL 3 04/13/20 24 Discontinued(*A vailability/For mulary change/Cost of medication) albuterol-ipratro pium (DUONEB) (2.5-0.5 mg) in 3 mL NEBULIZATION solutionIndicatio ns:Chronic obstructive pulmonary disease, unspecified COPD type (HC) Inhale 3 mL via a nebulizer every 6 hours if needed for Shortness of Breath 2nd choice or Wheezing 2nd choice. 3 mL 3 04/13/20 24 Discontinued(*A vailability/For mulary change/Cost of medication) Active [...] agreement signed - 10/07/23 10/07/2023 Overview (10/07/2023): [facility] Noemí Dennis .................... 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) use of anticoagulants 11/27/2013 12/28/2013 Anticoagulation [...] Encounters Date Type Department Care Team Description 04/30/2024 10:00 AM CDT Home Care Visit [facility] [address] [place] [phone] Geneva Sanchez, LOS SN - HOME VISIT 04/27/2024 10:30 AM CDT Home Care Visit [facility] [address] [place] [phone] Geneva Sanchez, LOS SN - HOME VISIT 04/27/2024 Telephone [facility] [address] [place] [address] Barbara Valentin, DO 04/24/2024 9:00 AM CDT Home Care Visit [place] [address] [place] [phone] Geneva Sanchez, LOS SN - HOME VISIT 04/21/2024 1:00 PM CDT Home Care Visit [address] [phone] Geneva Sanchez, LOS SN - HOME VISIT 04/21/2024 Telephone [facility] [address] [place] [address] Barbie Barbara Patricia, DO Home Care (Update) 04/20/2024 Telephone [facility] [address] [phone] Romina Pro, LOS Failed Appointment 04/20/2024 Refill [facility] [address] [place] [address] Toshia Hooks NP Refill Request 04/20/2024 Telephone [facility] [address] [place] [address] Barbie Barbara Aptricia, DO Diabetes (/) 04/17/2024 9:00 AM CDT Home Care Visit [place] [address] [place] [phone] Geneva Sanchez, LOS SN - HOME VISIT 04/17/2024 Telephone [facility] [address] [place] [phone] 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 Sanchez, nursery school teacher 04/16/2024 Telephone [facility] [address] [place] [address] Barbara Valentin, Results 04/16/2024 Patient Outreach [facility] - Care Management Navigation/[facility] [address] [place] [address] Aide Rolon [facility] (Care Guide Breast Cancer Screening outreach/) 04/13/2024 11:00 AM CDT Office Visit [facility] [address] [place] [address] Barbara Valentin, Follow Up (Diabetes, home care, medications) 04/13/2024 1:20 AM CDT Home Care Visit [facility] [address] [place] [phone] Coleman Rock RN SN - WOUND/OSTOMY CHART CONSULT 04/13/2024 Refill [facility] [address] [place] [address] Barbara Valentin, Refill Request (need changes/clarificatio n) 04/13/2024 Travel 04/12/2024 9:00 AM CDT Home Care Visit [facility] [address] [place] [address] Geneva Sanchez, RN SN - OASIS START OF CARE 04/12/2024 Orders Only [facility] [address] [place] [address] Barbara Valentin, DO <No scans attached> 04/12/2024 Telephone [facility] [address] [place] [phone] Geneva Sanchez, nursery school teacher 04/12/2024 Patient Outreach [facility] - Care Management Navigation/[facility] [address] [place] [address] Aide Rolon [facility] (Care Guide Breast Cancer Screening outreach/) 04/12/2024 Plan of Care Documentation [facility] [address] [place] [phone] 04/09/2024 Patient Outreach [facility] Care Management - Care Management Navigation/[facility] [address] [place] [address] Aide Rolon [facility] (Care Guide Breast Cancer Screening outreach/) 04/09/2024 Home Care Visit [place] [address] [place] [phone] Elvi Meyers RN CARE COORDINATION 04/06/2024 11:25 AM CDT Office Visit [facility] [address] [place] [address] Shaqra Barbara Patricia, DO Hospital F/U (Hypoglycemia - ER/hospital 03/29, 04/06 ) 04/06/2024 Orders Only [facility] [address] [place] [address] Nikolai Ibarra MD <No scans attached> 04/06/2024 Travel 04/04/2024 Refill [facility] [address] [place] [address] Saúlqra Barbara Patricia, DO Refill Request (Amlodipine, Omeprazole) 03/27/2024 Telephone [facility] [address] [place] [address] Saúlqra Barbara Patricia, DO Questions 03/16/2024 Refill [facility] [address] [place] [address] Toshia Hooks NP Refill Request 03/14/2024 10:30 AM CDT Home Care Visit [facility] [address] [place] [phone] Geneva Sanchez RN SN - OASIS DISCHARGE 03/12/2024 Refill [facility] [address] [address] BarbieSiresteban Gomez, DO Refill Request (Pregabalin, Fluoxetine, Duloxetine) 03/06/2024 10:00 AM CDT Home Care Visit [facility] [address] [place] [phone] Geneva Sanchez, LOS SN - HOME VISIT 03/06/2024 9:15 AM CDT Home Care Visit [facility] [address] [place] [phone] Alex Contreras HEAD AND NECK SURGEON - HOME VISIT 03/03/2024 Home Care Visit [facility] [address] [place] [phone] Nitza Riojas LISW CARE COORDINATION 02/28/2024 2:00 PM CDT Home Care Visit [facility] [address] [place] [phone] Shania Elaine, LOS SN - HOME VISIT 02/28/2024 10:45 AM CDT Home Care Visit [facility] [address] [place] [phone] Fabiola Mathis HEAD AND NECK SURGEON - HOME VISIT 02/25/2024 Home Care Visit [facility] [address] [place] [phone] Nitza Riojas LISW CARE COORDINATION 02/22/2024 3:00 PM CDT Home Care Visit [facility] [address] [place] [phone] Trini Hitchcock RN SN - HOME VISIT 02/22/2024 Home Care Visit [facility] [address] [place] [phone] Dar Phillips, OT OT - DISCIPLINE DISCHARGE 02/21/2024 9:45 AM CDT Home Care Visit [facility] [address] [place] [phone] Alex Contreras HEAD AND NECK SURGEON - HOME VISIT 02/20/2024 Home Care Visit [facility] [address] [place] [phone] Nitza Riojas LISW CONSTRUCTION PROJECT ADMINISTRATOR - INITIAL ASSESSMENT 02/16/2024 Refill [facility] [address] [place] [address] Toshia Hooks NP Refill Request (oxyCODONE (ROXICODONE) 5 mg immediate release tablet ) 02/15/2024 3:45 PM CDT Home Care Visit [facility] [address] [place] [phone] Coleman Greene, PT PT - DISCIPLINE DISCHARGE 02/15/2024 11:00 AM CDT Home Care Visit [address] [phone] Geneva Sanchez RN SN - HOME VISIT 02/14/2024 12:00 PM CDT Home Care Visit [address] [phone] Joi Moreno VARELA OT - HOME VISIT 02/14/2024 8:15 AM CDT Home Care Visit [address] [phone] Fabiola Mathis HEAD AND NECK SURGEON - HOME VISIT 02/10/2024 3:30 PM CDT Home Care Visit [address] [phone] Joi Moreno VARELA OT - HOME VISIT 02/10/2024 Home Care Visit [address] [phone] Nitza Riojas LISW CONSTRUCTION PROJECT ADMINISTRATOR - CASE COMMUNICATION 02/09/2024 Refill [facility] [address] [place] [address] Barbara Valentin, DO Refill Request (Duloxetine) 02/08/2024 3:00 PM CDT Home Care Visit [address] [place] [phone] Veda Resendiz RN SN - WOUND/OSTOMY CHART CONSULT 02/08/2024 9:00 AM CDT Home Care Visit [facility] [address] [place] [phone] Geneva Sanchez, LOS SN - HOME VISIT 02/08/2024 Telephone [facility] [address] [place] [address] Barbara Valentin Patricia, DO Pharmacist Medication Management (MEDICATION CHANGE) 02/08/2024 Telephone [facility] [address] [place] [address] Geneva Sanchez, shutdown coordinator List Update 02/07/2024 4:00 PM CDT Home Care Visit [facility] [address] [place] [phone] Joi Moreno COTA OT - HOME VISIT 02/07/2024 9:30 AM CDT Home Care Visit [facility] [address] [place] [phone] Kendal Serna, PT PT - HOME VISIT 02/07/2024 Telephone [facility] [address] [place] [address] Barbie Barbara Patricia, DO Refill Request (Insulin lispro pens) 02/04/2024 Refill [facility] [address] [place] [address] Sir Valentini Patricia, DO Refill Request (Insulin Lispro) 02/03/2024 9:00 AM CDT Home Care Visit [facility] [address] [place] [phone] Joi Moerno COTA OT - HOME VISIT 02/02/2024 11:00 AM CDT Home Care Visit [facility] [address] [place] [phone] Kendal Serna, PT PT - HOME VISIT 02/01/2024 4:00 PM CDT Home Care Visit [facility] [address] [place] [phone] Joi Moreno COTA OT - HOME VISIT from Last 3 Months Immunizations Name Administration [...] 3 04/13/2024 Social Connections Answer Date Recorded Do you often feel lonely or isolated from those around you? 0 09/21/2023 Financial Resource Strain Answer Date R ecorded Difficulty of Paying Living Expenses 2 09/21/2023 Difficulty of Paying Living Expenses 1 09/21/2023 Food Insecurity Answer Date Recorded Do you worry your food will run out before you are able to buy more? 2 09/21/2023 Transportation Needs Answer Date Record ed Does lack of transportation keep you from medica l appointments? 2 09/21/2023 Does lack of transportation keep you from work, meetings or getting things that you need? 2 09/21/2023 Housing Stability Answer Date Recorded [...] Sign Reading Time Taken Comments Blood Pressure 110/69 04/30/2024 10:29 AM CDT Pulse 73 04/30/2024 10:29 AM CDT Temperature 36.6 ??C (97.8 ??F) 04/30/2024 10:29 AM C DT Respiratory Rate 16 04/30/2024 10:29 AM CDT Oxygen Saturation 93% 04/30/2024 10:29 AM CDT Inhaled Oxygen Concentration - - Weight 92.1 kg (203 lb) 04/30/2024 10:29 AM CDT Height 152.4 cm (5') 01/12/2024 9:27 PM CDT Body Mass Index 39.65 01/12/2024 9:27 PM CDT Plan of Treatment Upcoming Encounters Date Type Department Care Team (Late st Contact Info) Description 05/04/2024 12:15 PM CDT Home Care Visit [facility] [address] [place] [phone] Geneva Sanchez, LOS 05/04/2024 3:00 PM CDT Office Visit [facility] [address] [place] [address] Barbara Valentin, DO [address] [place] [address] 05/04/2024 3:30 PM CDT Phone Office Visit [facility] [address] [facility] [address] [place] [address] Nikolai Ibarra MD [address] [facility] N [facility] [address] [place] [address] 05/07/2024 10:00 AM HEAVY DUTY PRESS OPERATOR Home Care Visit [address] [phone] Geneva Sanchez, LOS 05/14/2024 4:00 AM HEAVY DUTY PRESS OPERATOR Home Care Visit [address] [phone] Geneva Sanchez, LOS 05/21/2024 4:00 AM HEAVY DUTY PRESS OPERATOR Home Care Visit [address] [phone] Geneva Sanchez, LOS 05/28/2024 4:00 AM HEAVY DUTY PRESS OPERATOR Home Care Visit [address] [phone] Geneva Sanchez, LOS 06/04/2024 4:00 AM HEAVY DUTY PRESS OPERATOR Appointment [address] [phone] Geneva Sanchez, LOS 06/15/2024 3:00 PM HEAVY DUTY PRESS OPERATOR Office Visit [facility] [address] [place] [address] Barbara Valentin Patricia, DO [address] [place] [address] Health Maintenance Due Date Last Done Comments Zoster (shingles) series for age 50+ (1 of 2) 12/19/2011 Pap test for age 21-65 08/17/2015 08/17/2012, 2010 Tetanus booster 08/25/2020 08/25/2010, 12/04, 12/30/2002 Mammogram for age 45-75 04/28/2023 04/28/20, 03/02/2018, 07/26/2013, Additional history exists Influenza for age 50-64 03/04/2024 04/28/20, 04/28/2021, 03/18/2020, Additional history exists Fecal testing sDNA-FIT ([place] guard) for age 45-75 11/10/2024 11/10/2021 Depression [...] history exists Medical Devices Implanted Type Area Accounting Technician Device Identifier Shelf Expiration Date Model / Serial / Lot [id number] 2x12mm [[id number]] Implanted:Qty: 1 on 08/08/2008 at [facility] Explanted:at [facility] (Quantity not on file) Stomach Front Up [id number]# / [id number] / Stem Compnt Primary 8mm Mini - [id number] Implanted:Qty: 1 on 03/17/2011 at [facility] Right: Shoulder BIOMET [id number]# / / [id number] Head Hum Bio-Mod [id number] - [id number] Implanted:Qty: 1 on 03/17/2011 at [facility] Right: Shoulder BIOMET [id number]# / / [id number] Base Glenoid Hybrid 4mm Sm - [id number] Implanted:Qty: 1 on 03/17/2011 at [facility] Right: Shoulder BIOMET [id number]# / / [id number] Cmnt 1/2 Dose[employer]medica - [id number] Implanted:Qty: 1 on 03/17/2011 at [facility] Right: Shoulder [employer] [id number] 0# / / [id number] Post Glenoid Hybrid Regenerex - [id number] Implanted:Qty: 1 on 03/17/2011 at [facility] Right: Shoulder BIOMET [id number] # / / [id number] Head Humeral 44x15 Co Cr Biomodular - [id number] Implanted:Qty: 1 on 07/12/2012 at [facility] Left: Shoulder BIOMET [id number]# / / [id number] Shoulder Stem Implanted:Qty: 1 on 07/12/2012 at [facility] Left: Shoulder [id number] / / [id number] Description:SHOULDER STEM Cmnt Bone 1/2 [employer] - [id number] Implanted:Qty: 1 on 07/12/2012 at [facility] Left: Shoulder [employer] 6188-1- 0# / / [id number] Post Glenoid Hybrid Regenerex - [id number] Implanted:Qty: 1 on 07/12/2012 at [facility] Left: Shoulder BIOMET [id number] # / / [id number] Base Glenoid Hybrid 4mm Sm - [id number] Implanted:Qty: 1 on 07/12/2012 at [facility] Left: Shoulder BIOMET [id number]# / / [id number] Procedures Procedure Name Priority Date/Time Associated Diagnosis Comments BASIC METABOLIC PANEL Routine 04/13/2024 11:50 AM CDT CKD (chronic kidney disease) stage 4, GFR 15-29 ml/min () XR MAMMO BILAT SCREENING Routine 04/28/2022 2:04 [...] HIV 1/2 Add On 07/21/2015 9:40 AM HEAVY DUTY PRESS OPERATOR PC INSTALLATION ENGINEER THIN PREP PAP SCREEN IMAGED Routine 08/17/2012 4:02 PM HEAVY DUTY PRESS OPERATOR Screening for malignant neoplasm of the cervix from Last 3 Months or Most Recently Relevant to Health Maintenance Results * (ABNORMAL) BASIC METABOLIC PANEL (04/13/2024 11:50 AM CDT) GLUCOSE 170(H) 65 - 99 mg/dL [facility] Comment: ? Fasting reference interval [...] AM CDT 04/13/2024 11:51 AM CDT Barbara Haysjaimee CHEMISTRY [facility] [address] [place] [address], [facility] [address] [place] [address] * XR MAMMO BILAT SCREENING (04/28/2022 2:04 [...] health care provider. XR MAMMO BILAT SCREENING [[id number]] CLINICAL HISTORY: ??This is an asymptomatic 61 y.o. patient. INDICATION FOR EXAM: Mammogram Screening. TECHNIQUE: CC & MLO views were obtained. ??This study was evaluated with the assistance of Computer-Aided Detection. COMPARISON FILM: Yes 03/02/18 [facility] 07/26/13 [employer] FINDINGS: ??The breasts are extremely dense, which lowers the sensitivity of mammography. There are no dominant masses, suspicious micro calcifications or areas of architectural distortion. Shania Montiel MD MAMMO * LIPID PANEL W REFLEX MEASURED LDL (04/28/2022 1:44 PM CDT) Pathologist [facility] CHOLESTEROL,TOTAL 139 100 - 199 mg/dL 04/30/2022 6:25 PM CDT [facility] TRIGLYCERIDES 141 <150 mg/dL 04/30/2022 6:25 PM CDT [facility] HDL CHOLESTEROL 42 >40 mg/dL 6:25 PM CDT [facility] NON-HDL CHOLESTEROL 97 <145 mg/dl 04/30/2022 6:25 PM CDT [facility] CHOL/HDL RATIO 3.31 <4.50 04/30/2022 6:25 PM CDT [facility] LDL CHOLESTEROL 69 <=130 mg/dL 04/30/2022 6:25 PM CDT [facility] VLDL CHOLESTEROL 28 <=30 mg/dL 04/30/2022 6:25 PM CDT [facility] PROVIDER ORDERED STATUS RANDOM 04/30/2022 6:25 PM CDT [facility] Blood BLOOD SPECIMEN / Unknown Venipuncture / Unknown 04/28/2022 1:44 PM CDT 04/28/2022 1:45 PM CDT Shania Montiel MD CHEMISTRY [facility] [address] [place] [address], * FECAL DNA (AKA COLOGUARD) (11/10/2021 1:00 PM CDT) Shania Montiel MD COMMUNICATION ORD * ANTI HCV [[id number]] (02/16/2018 4:20 PM CDT) Pathologist [facility] HEPATITIS C ANTIBODY Non-React alex Non-React alex 02/17/2018 2:48 PM CDT [facility] Comment:Antibodies to HCV no t detected; does not exclude the possibility of exposure to HCV. Blood BLOOD SPECIMEN / Unknown Butterfly / Unknown 02/16/2018 4:20 PM CDT 02/16/2018 4:20 PM CDT Coleman Plata MD SEND OUTS [facility] [address] [place] [address], * HIV 1&2 TODAY (07/21/2015 9:40 AM HEAVY DUTY PRESS OPERATOR) HIV-1/HIV-2 ANTIBODY Non-Reacti ve Non-Reacti ve 07/21/2015 10:31 AM HEAVY DUTY PRESS OPERATOR [facility] Blood specimen (specimen) BLOOD SPECIMEN / Unknown Venipuncture / Unknown 07/21/2015 9:40 AM HEAVY DUTY PRESS OPERATOR 07/21/2015 9:47 AM HEAVY DUTY PRESS OPERATOR Narrative [facility] - 07/21/2015 10:31 AM HEAVY DUTY PRESS OPERATOR HIV-1 p24 and HIV-1/HIV-2 Ab not detected Kait Morales DO SEND OUTS [facility] [address] [place] [address], * PC INSTALLATION ENGINEER THIN PREP PAP SCREEN IMAGED (08/17/2012 4:02 PM HEAVY DUTY PRESS OPERATOR) Pathologist [facility] CYTOLOGY CYTOPATHOLOGY REPORT [facility] TeamSupport/[facility] Status: Final Status ?[id number] CLINICAL INFORMATION Last Date of LMP ? :07/03/2012 Last Pap Date ?:02/01/2011 Last Pap Result ?:NIL ABN Chrisney/Bx Past 5 YRS :None Hormone Usage ?:BCP/OCP/Patch/R ing Menstrual Status ? :Regular Periods Chrisney/Bx done today ? :No Additional Information :None [...] COLLECTED:08/17/12 ? ACCESSIONED: ??08/18/12 ?? SIGNED: ??08/21/12 [facility] PAP [place] CODE NIL [facility] Tissue specimen (specimen) (Cervical/Vagina l) 08/17/2012 4:02 PM HEAVY DUTY PRESS OPERATOR 08/17/2012 4:00 PM HEAVY DUTY PRESS OPERATOR Coleman Plata MD PATHOLOGY/CYTOLOGY [facility] INTERNAL ZIP [id number] [place] [address] from Last 3 Months or Most Recently [...] Urine earlier this year (per report from [facility], not available in CareEverywhere), 04/19/18 L cheek abscess exclusions for contact precaution discontinuation (if > 12 months since positive culture): resides in acute/[facility] care, receiving hemodialysis, has chronic open wounds/skin [...] 8:01 PM 07/15/2012 6:55 PM Care Teams Senior Application Security Consultant Relationship Specialty Start Date End Date Barbara Valentin DO [address] [place] [address] PCP - General Family Practice 11/15/22 Julio Ibrahim MD [address] [place] [address] Surgery - Orthopedics 02/01/11 Chuy Doss MD [address] [place] [address] Surgery - Vascular 02/01/11 Markel Strong MD [address] [place] [address] Provider Family Practice 08/08/20 Nikolai Ibarra MD [address] [place] [address] Endocrinology 09/07/22 [facility] [facility] [address] [place] [address] 04/07/24 Suad Ng/ Medica CM Supervisor Offset Plate Preparation 07/14/17 [facility] Nurse 07/01/17 [facility] Home Health Aide 07/14/17 [facility] Comber Fixer/ Ally Christianson [facility] [place] [address] [place] [address] Supervisor Offset Plate Preparation 07/07/17
== END 2024-05-03 15:01 | disposition home or self-care (01) ==
LOC: WOUND 15:01
PROVIDERS: PCP Family Medicine; Visit Provider Nurse Practitioner Family
DX: E11.621 Type 2 diabetes mellitus with foot ulcer (principal); L97.422 Non-pressure chronic ulcer of left heel and midfoot with fat layer exposed; M14.672 Charcot's joint, left ankle and foot; L29.9 Pruritus, unspecified; Z79.4 Long term (current) use of insulin
CPT/HCPCS: 11042

== ENCOUNTER 2024-05-03 21:33 | Outpatient (CLI) | payer OTHER, SELFPAY ==
--- OUTSIDE RECORDS SUMMARY | 2024-05-08 03:13 | XMS_ITS | Encounter Summary ---
Author Organization [facility] Address [address] [place] [address] Care Team Providers Care Uplands Division Director Name Role Phone Barbara Valentin DO Primary Care Provider [phone] Encounter Details Date Type Department Care Team (Late st Contact Info) Description 05/04/2024 Telephone [facility] [address] [place] [address] Reina Caruso, RN [address] [place] [address] Social History Tobacco Use Types [...] encounter Miscellaneous Notes * Telephone Encounter - Reina Caruso RN - 05/04/2024 3:56 PM CDT Shama Salazar called to check if pt is scheduled with us on 05/12. Pt does not have any appts with us and is due for f/u with lab prior. The 05/12 appt they can see is a lab order. She will notify pt to call us to schedule. documented in this encounter Plan of Treatment Upcoming Encounters Date Type Department Care Team (Late st Contact Info) Description 05/12/2024 Orders Only [facility] [address] [place] [address] Gabriel Hicks MD [address] [facility] [address] [phone] Chronic kidney disease, stage 4 (severe) (HCC) documented as of this encounter Visit Diagnoses Not on filedocumented in this encounter Care Teams Uplands Division Director Relationship Specialty Start Date End Date Barbara Valentin DO [address] [place] [address] PCP - General Family Medicine 09/22/23 documented as of this encounter
--- OUTSIDE RECORDS SUMMARY | 2024-05-08 03:13 | XMS_ITS | Encounter Summary ---
Author Organization [facility] Address [address] [place] [address] Care Team Providers Care Head Pumper Name Role Phone Barbara Valentin DO Primary Care Provider [phone] Encounter Details Date Type Department Care Team (Late st Contact Info) Description 02/01/2024 Telephone [facility] [place] [address] [place] [address] Gabriel Hicks MD [address] [place] [address] Social History Tobacco Use Types [...] [facility] [address] [place] [address] Gabriel Hicks MD [address] [facility] [address] [address] Chronic kidney disease, stage 4 (severe) (HCC) documented as of this encounter Visit Diagnoses Not on filedocumented in this encounter Care Teams Head Pumper Relationship Specialty Start Date End Date Barbara Valentin DO [address] [place] [address] PCP - General Family Medicine 09/22/23 documented as of this encounter
--- OUTSIDE RECORDS SUMMARY | 2024-05-08 03:13 | XMS_ITS | Encounter Summary ---
Author Organization [facility] Address [address] [place] [address] Care Team Providers Care Leather Staker Name Role Phone Barbara Valentin DO Primary Care Provider [phone] Encounter Details Date Type Department Care Team (Late st Contact Info) Description 09/22/2023 Documentation Only [facility] [place] [address] [place] [address] No, Pcp Social History Tobacco [...] [facility] [address] [place] [address] Gabriel Hicks MD [address] [place] [address] Chronic kidney disease, stage 4 (severe) (HCC) documented as of this encounter Visit Diagnoses Not on filedocumented in this encounter Care Teams Leather Staker Relationship Specialty Start Date End Date Barbara Valent[place] [address] PCP - General Family Medicine 09/22/23 documented as of this encounter
--- OUTSIDE RECORDS SUMMARY | 2024-05-08 03:13 | XMS_ITS | Clinical Summary ---
Author Organization [facility] [place] Address [address] [place] [address] Phone Care Team Providers Care Mlt Name Role Phone Barbara Valentin DO Primary Care Provider [phone] Allergies Active Allergy Reactions Criticality Noted Date [...] One Pack) 3 MG/DOSE powder Inhale 1 [place] into affected nostril(s) each time if needed [...] Encounters Date Type Department Care Team Description 05/04/2024 Telephone [facility] [address] [facility] [address] [place] [address] Reina Caruso RN from Last 3 Months Immunizations Name Administration [...] [facility] [address] [place] [address] Gabriel Hicks MD [address] [place] [address] Chronic kidney disease, stage 4 (severe) [...] Additional history exists Diabetes: Hemoglobin A1C 04/13/2024 072 024, 12/23/2023, 09/21/2023 Hepatitis B Vaccine Aged Out No longe r eligible based on patient's age to complete this topic [place] [facility] [place] ([id number]) [place] [id number] Care Teams Mlt Relationship Specialty Start Date End Date Barbara Valent[place] [address] PCP - General Family Medicine 09/22/23
--- OUTSIDE RECORDS SUMMARY | 2024-05-08 03:14 | XMS_ITS | Clinical Summary ---
Author Organization [employer] [facility] Address [place], [place] [address] Care Team Providers Care Office Coordinator Receptionist Name Role Phone Julio Ibrahim MD Unavailable Chuy Doss MD Unavailable [phone] Markel Strong MD Unavailable [phone] Nikolai Ibarra MD Unavailable [phone] Barbara Valentin DO [facility] Provider [facility] Allergies Active Allergy Reactions Criticality Noted [...] SUBCUTANEOUSLY AT HOME 100 Each 1 Active fluticasone (50 mcg per actuation) nasal solution (FLONASE)Indicatio ns:Nasal congestion Inhale 1 [place] into affected nostril(s) once daily. Inhale 1 [place] in the nostril(s) once daily. 16 g [...] of use: Daily 1 Each 3 Active sennosides-docusat e (Stool Softener-Stimulant Laxat) (8.6-50 mg) tabletIndications: Chronic constipation TAKE TWO TABLETS BY MOUTH TWO TIMES DAILY NEEDED FOR CONSTIPATION. 360 Tablet 2 3 Active continuous glucose monitor READER (FreeStyle Elli 2 [place])Indications :Type 1 diabetes mellitus with other specified complication (HC) To be used to read blood sugars per wrapper layer's directions. 1 Each 3 Active blood-glucose meterIndications:T ype 1 diabetes mellitus with other specified complication (HC) As directed. Dispense meter, test strips, lancets covered by pt ins. E10.9 IDDM type I - Test 4 times/day. Reason: Unstable diabetes 1 Each 3 Active lancetsIndications :Type 1 diabetes mellitus with other specified complication (HC) As directed. Test 4 times per day. 400 Each 3 3 Active continuous glucose monitor SENSOR KIT (FreeStyle Elli 2 Sensor)Indications :Type 1 diabetes mellitus with other specified complication (HC) As directed. To be used to read blood sugars per wrapper layer's directions. 6 Each 3 4 Active polyethylene glycoL (MIRALAX) 17 gram/scoop [...] once daily. 90 Tablet 3 4 Active buprenorphine 5 mcg/hr (Butrans) 5 mcg/hour transdermal patch Apply 1 Patch on dry, clean, hairless skin once weekly. Active acetaminophen (TYLENOL) 325 mg tabletIndications: Opioid dependence, uncomplicated (HC) Take 2 Tablets (650 mg) by mouth every 4 hours if needed for Pain or Temp > (Specify) (Temp >100.4 F (38 C)). Max acetaminophen dose: 4000mg in 24 hrs. 4 Active naloxone (NARCAN) 4 mg/actuation nasal sprayIndications:C hronic, continuous use of opioids Inhale 1 [place] into affected nostril(s) each time if needed for Patient Diff To Arouse or Resp Rate < 8 / min. Additional doses may be given every 2 to 3 minutes until emergency medical assistance arrives. 2 Each 4 Active FLUoxetine (PROZAC) 10 mg capsuleIndications :Moderate episode of recurrent major depressive disorder (HC) TAKE 1 CAPSULE (10 MG) BY MOUTH ONCE DAILY. 30 Capsule 4 Active DULoxetine (CYMBALTA) 60 mg Delayed-release capsuleIndications :Adjustment disorder with mixed anxiety and depressed mood,Chronic pain syndrome Take 1 Capsule (60 mg) by mouth once daily. 30 Capsule 4 Active amLODIPine (NORVASC) 2.5 mg tabletIndications: Essential hypertension TAKE 1 TABLET (2.5 MG) BY MOUTH TWO TIMES DAILY. 180 Tablet 3 4 Active omeprazole (PRILOSEC) 20 mg Delayed-Release capsuleIndications :Chronic GERD TAKE 1 CAPSULE (20 MG) BY MOUTH ONCE DAILY BEFORE A MEAL. 90 Capsule 3 4 Active albuterol HFA (PRO-AIR; VENTOLIN; PROVENTIL) 90 mcg/actuation inhalerIndications :Chronic obstructive pulmonary disease, unspecified COPD type (HC) Inhale 1-2 Puffs by mouth every 4 hours if needed for Shortness Of Breath or Wheezing. 3 Each 3 4 Active fluticasone propion-salmeteroL (ADVAIR) 100-50 mcg/dose diskus inhalerIndications :Chronic obstructive pulmonary disease, unspecified COPD type (HC) Inhale 1 Puff by mouth two times daily. 60 Each 4 Active pregabalin (LYRICA) 100 mg capsuleIndications :Chronic pain syndrome Take 1 Capsule (100 mg) by mouth once daily. 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 180 Tablet 3 4 Active glucagon (Baqsimi) 3 mg/actuation nasal sprayIndications:p atient with diabetes mellitus at risk of hypoglycemia Inhale 1 [place] into affected nostril(s) each time if needed for Severe Hypoglycemia. Roll on side and call 911 after administration. 2 Each 11 4 Active albuterol-ipratrop ium (DUONEB) (2.5-0.5 mg) in 3 mL NEBULIZATION solutionIndication s:Chronic obstructive pulmonary disease, unspecified COPD type (HC) Inhale 3 mL via a nebulizer every 6 hours if needed for Shortness of Breath 2nd choice or Wheezing 2nd choice. 180 mL 3 4 Active insulin lispro, U-100, (HumaLOG KwikPen Insulin) 100 unit/mL inpn penIndications:Ashly betes mellitus type 1 with complications (HC) 10 units with breakfast, 6 units with lunch, 8 units with dinner, plus Corrective dose insulin as needed, up to 45 units / day 15 mL 3 4 Active oxyCODONE (ROXICODONE) 5 mg immediate release tabletIndications: Chronic pain syndrome,Neuropath y due to secondary diabetes (HC) Si p.o. B.I.D. / PRN For O.A. pain or Diabetic P.N. Pain ; max: 2 a day. Use dates: 04/21/24-05/20/24 60 Tablet 4 Active blood sugar diagnostic (Blood Glucose Test) stripIndications:T ype 1 diabetes mellitus with other specified complication (HC) Test 4 times per day. 400 Each 3 4 Active glucose 4 gram chewable tabletIndications: Brittle diabetes (HC),Diabetes mellitus type 1 with complications (HC) Chew 1 Tablet (4 g) by mouth each time if needed for Blood Gluc < 60 mg/dL. 60 Tablet 3 4 Active glucagon (Baqsimi) 3 mg/actuation nasal sprayIndications:p atient with diabetes mellitus at risk of hypoglycemia Inhale 1 [place] into affected nostril(s) each time if needed for Severe Hypoglycemia. Roll on side and call 911 after administration. 2 Each 2 04/13/20 Discontinu ed(Reorder (E-cancel not sent)) naloxone (NARCAN) 4 mg/actuation nasal sprayIndications:C hronic, continuous use of opioids [The details of the medication are not available because there are pending changes by a home health clinician.] 2 Each 2 3 04/12/20 Discontinu ed(*Medica tion adjustment ) blood sugar diagnostic (Blood Glucose Test) stripIndications:T ype 1 diabetes mellitus with other specified complication (HC) Test 4 times per day. 400 Each 3 3 04/27/20 Discontinu ed(Reorder (E-cancel not sent)) torsemide (DEMADEX) 20 mg tabletIndications: Hyperkalemia,Local ized edema TAKE TWO TABLETS BY MOUTH (40MG) ONCE DAILY 60 Tablet 3 4 04/13/20 Discontinu ed(Reorder (E-cancel not sent)) losartan (COZAAR) 25 mg tablet Take 12.5 mg by mouth once daily. 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 B.I.D. / PRN For O.A. pain or Diabetic P.N. Pain ; max: 2 a day. Use dates: 03/22/24-04/20/24 60 Tablet 4 04/20/20 Discontinu ed(Reorder (E-cancel not sent)) insulin lispro, U-100, (HumaLOG KwikPen Insulin) 100 unit/mL inpn penIndications:Ashly betes mellitus type 1 with complications (HC) 10 units with breakfast, 6 units with lunch, 8 units with dinner, plus Corrective dose insulin as needed, up to 45 units / day 10 mL 3 4 10/11/20 24 Discontinu ed(*Availa bility/For mulary change/Cos t of medication ) albuterol-ipratrop ium (DUONEB) (2.5-0.5 mg) in 3 mL NEBULIZATION solutionIndication s:Chronic obstructive pulmonary disease, unspecified COPD type (HC) Inhale 3 mL via a nebulizer every 6 hours if needed for Shortness of Breath 2nd choice or Wheezing 2nd choice. 3 mL 3 4 04/13/20 24 Discontinu ed(*Availa bility/For mulary change/Cos t of medication ) Active Problems Patient Care Coordination No te [...] agreement signed - 10/07/23 10/07/2023 Overview (10/07/2023): [facility] [place] [place] .................... 10/07/2023 4:39 PM [...] hypoxia which led to extended stay in detention care 07/2015- 05/2017 Hospitalized with ketoacidosis 06/2017 [...] post total right knee replacement 01/02/2015 06/10/2017 salvage determiner (current) use of anticoagulants 11/27/2013 12/28/2013 Anticoagulation [...] Encounters Date Type Department Care Team Description 05/07/2024 12:00 PM EGG TESTER Home Care Visit [facility] [address] [place] [phone] Malou Griffith LPN EXECUTIVE BUSINESS COACH - HOME VISIT 05/07/2024 10:10 AM EGG TESTER Phone Office Visit [facility] [address] [place] [address] Nikolai Ibarra MD Consult (Phone visit) 05/07/2024 Travel 05/07/2024 Telephone [facility] [address] [place] [address] Barbie Barbara Patricia, DO Blood Sugar 05/04/2024 3:00 PM CDT Office Visit [facility] [address] [place] [address] Saúlqra Barbara Patricia, DO ER Follow up (Hypoglycemia ) 05/04/2024 12:15 PM CDT Home Care Visit [address] [place] [address] Geneva Sanchez, LOS SN - HOME VISIT 05/04/2024 Travel 04/30/2024 10:00 AM CDT Home Care Visit [place] [address] [place] [address] Geneva Sanchez, LOS SN - HOME VISIT 04/27/2024 10:30 AM CDT Home Care Visit [address] [address] Geneva Sanchez, LOS SN - HOME VISIT 04/27/2024 Telephone [facility] [address] [place] [address] Sir Valentini Patricia, DO 04/24/2024 9:00 AM CDT Home Care Visit [address] [phone] Geneva Sanchez, LOS SN - HOME VISIT 04/21/2024 1:00 PM CDT Home Care Visit [address] [phone] Geneva Sanchez, LOS SN - HOME VISIT 04/21/2024 Telephone [facility] [address] [place] [address] Saúlqra Barbara Patricia, DO Home Care (Update) 04/20/2024 Telephone [facility] [address] [place] [phone] Romina Pro, LOS Failed Appointment 04/20/2024 Refill [facility] [address] [place] [address] Toshia Hooks NP Refill Request 04/20/2024 Telephone [facility] [address] [place] [address] Barbara Valentin, DO Diabetes (/) 04/17/2024 9:00 AM CDT Home Care Visit [facility] [address] [place] [address] Geneva Sanchez, LOS SN - HOME VISIT 04/17/2024 Telephone [facility] [address] [place] [address] Geneva Sanchez, general partner 04/16/2024 Telephone [facility] [address] [place] [address] Barbara Valentin, DO Results 04/16/2024 Patient Outreach [facility] Care Management - Care Management Navigation/[facility] [address] [place] [address] [facility] (Care Guide Breast Cancer Screening outreach/) 04/13/2024 11:00 AM CDT Office Visit [facility] [address] [place] [address] Barbara Valentin, Follow Up (Diabetes, home care, medications) 04/13/2024 1:20 AM CDT Home Care Visit [facility] [address] [place] [phone] Coleman Rock RN SN - WOUND/OSTOMY CHART CONSULT 04/13/2024 Refill [facility] [address] [place] [address] Barbara Valentin, DO Refill Request (need changes/clarificatio n) 04/13/2024 Travel 04/12/2024 9:00 AM CDT Home Care Visit [facility] [address] [place] [address] Geneva Sanchez, RN SN - OASIS START OF CARE 04/12/2024 Orders Only [facility] [address] [place] [address] Barbara Valentin Patricia, DO <No scans attached> 04/12/2024 Telephone [facility] [address], [place] [address] Geneva Sanchez, general partner 04/12/2024 Patient Outreach [facility] Management - Care Management Navigation/[facility] [address] [place] [address] [facility] (Care Guide Breast Cancer Screening outreach/) 04/12/2024 Plan of Care Documentation [facility] [address] [place] [address] 04/09/[address] [facility] - Care Management Navigation/[facility] [address] [place] [address] [facility] (Care Guide Breast Cancer Screening outreach/) 04/09/2024 Home Care Visit [facility] [address] [place] [address] Elvi Meyers RN CARE COORDINATION 04/06/2024 11:25 AM CDT Office Visit [facility] [address] [place] [address] Barbara Valentin, DO Hospital F/U (Hypoglycemia - ER/hospital 03/29, 04/06 ) 04/06/2024 Orders Only [facility] [address] [facility] [address] [facility] [address] [place], [place] [phone] Nikolai Ibarra MD <No scans attached> 04/06/2024 Travel 04/04/2024 Refill [facility] [address] [place] [address] Barbara Valentin Patricia, DO Refill Request (Amlodipine, Omeprazole) 03/27/2024 Telephone [facility] [address] [place] [address] Saúlq, Barbara Patricia, DO Questions 03/16/2024 Refill [facility] [address] [place] [address] Toshia Hooks NP Refill Request 03/14/2024 10:30 AM CDT Home Care Visit [facility] [address] [place] [phone] Geneva Sanchez, LOS SN - OASIS DISCHARGE 03/12/2024 Refill [facility] [address] [place] [address] Saúlqra, Barbara Patricia, DO Refill Request (Pregabalin, Fluoxetine, Duloxetine) 03/06/2024 10:00 AM CDT Home Care Visit [place] [address] [place] [phone] Geneva Sanchez RN SN - HOME VISIT 03/06/2024 9:15 AM CDT Home Care Visit [place] [place] [phone] Alex Contreras DIRECTOR OF DISTRIBUTION - HOME VISIT 03/03/2024 Home Care Visit [address] [address] Nitza Riojas LISW CARE COORDINATION 02/28/2024 2:00 PM CDT Home Care Visit [facility] [address] [place] [phone] Shania Elaine, LOS SN - HOME VISIT 02/28/2024 10:45 AM CDT Home Care Visit [facility] [address] [place] [phone] Fabiola Mathis DIRECTOR OF DISTRIBUTION - HOME VISIT 02/25/2024 Home Care Visit [facility] [address] [place] [phone] Nitza Riojas LISW CARE COORDINATION 02/22/2024 3:00 PM CDT Home Care Visit [facility] [address] [place] [phone] Trini Hitchcock, LOS SN - HOME VISIT 02/22/2024 Home Care Visit [facility] [place] [place] [phone] Dar Phillips OT OT - DISCIPLINE DISCHARGE 02/21/2024 9:45 AM CDT Home Care Visit [address] [address] Alex Contreras DIRECTOR OF DISTRIBUTION - HOME VISIT 02/20/2024 Home Care Visit [address] [address] Nitza Riojas LISW HEALTH AND SOCIAL CARE TEACHER - INITIAL ASSESSMENT 02/16/2024 Refill [facility] [address] [place] [address] Toshia Hooks NP Refill Request (oxyCODONE (ROXICODONE) 5 mg immediate release tablet ) 02/15/2024 3:45 PM CDT Home Care Visit [place] [address] [place] [phone] Coleman Greene, PT PT - DISCIPLINE DISCHARGE 02/15/2024 11:00 AM CDT Home Care Visit [address] [address] Geneva Sanchez, LOS SN - HOME VISIT 02/14/2024 12:00 PM CDT Home Care Visit [address] [address] Joi Moreno COTA OT - HOME VISIT 02/14/2024 8:15 AM CDT Home Care Visit [address] [phone] Fabiola Mathis DIRECTOR OF DISTRIBUTION - HOME VISIT 02/10/2024 3:30 PM CDT Home Care Visit [address] [address] Joi Moreno COTA OT - HOME VISIT 02/10/2024 Home Care Visit [facility] [address] [place] [address] Nitza Riojas LISW HEALTH AND SOCIAL CARE TEACHER - CASE COMMUNICATION 02/09/2024 Refill [facility] [address] [place] [address] Shaqra, Barbara Patricia, DO Refill Request (Duloxetine) 02/08/2024 3:00 PM CDT Home Care Visit [facility] [address] [place] [address] Veda Resendiz RN SN - WOUND/OSTOMY CHART CONSULT 02/08/2024 9:00 AM CDT Home Care Visit [facility] [address] [place] [address] Geneva Sanchez, LOS SN - HOME VISIT 02/08/2024 Telephone [facility] [address] [place] [address] Barbie Barbara Patricia, DO Pharmacist Medication Management (MEDICATION CHANGE) 02/08/2024 Telephone [facility] [address], [place] [address] Geneva Sanchez, epic willow analyst List Update 02/07/2024 4:00 PM CDT Home Care Visit [facility] [address] [place] [address] Joi Moreno COTA OT - HOME VISIT 02/07/2024 9:30 AM CDT Home Care Visit [facility] [address] [place] [address] Kendal Serna, PT PT - HOME VISIT 02/07/2024 Telephone [facility] [address] [place] [address] Shaqra, Barbara Patricia, DO Refill Request (Insulin lispro pens) from Last 3 Months Immunizations Name Administration Dates Next Due AMB Influenza, IIV3 (Age >=3 years)(Flu Clinic Only) 05/17/2013,05/06/2010 COVID-19 VACCINE SPIKEVAX (M ODERNA 50MCG/0.5ML) 12YO+ PFS 04/06/2024 COVID-19 vaccine (Tactile-Bio NTech 30mcg/0.3mL) 12YO+ BIVALENT PF, MDV 04/28/2022 COVID-19 vaccine (Tactile-Bio NTech 30mcg/0.3mL) PF, MDV 06/23/2021 Hepatitis B [...] Sign Reading Time Taken Comments Blood Pressure 148/70 05/07/2024 12:18 PM EGG TESTER Pulse 90 05/07/2024 12:18 PM EGG TESTER Temperature 37.1 ??C (98.7 ??F) 05/07/2024 1 2:18 PM EGG TESTER Respiratory Rate 16 05/07/2024 12:1 8 PM EGG TESTER Oxygen Saturation 93% 05/07/2024 12: 18 PM EGG TESTER Inhaled Oxygen Concentration - - Weight 96.1 kg (211 lb 12.8 oz) 024 12:18 PM EGG TESTER Height 152.4 cm (5') 01/12/2024 9:27 PM CDT Body Mass Index 41.36 01/12/2024 9:27 PM CDT Plan of Treatment Upcoming Encounters Date Type Department Care Team (Late st Contact Info) Description 05/14/2024 4:00 AM EGG TESTER [facility] [address] [facility] [phone] Geneva Sanchez RN 05/21/2024 4:00 AM EGG TESTER Home Care Visit [facility] [address] [place] [address] Geneva Sanchez, LOS 05/28/2024 4:00 AM EGG TESTER Home Care Visit [facility] [address] [place] [address] Geneva Sanchez, LOS 06/04/2024 4:00 AM EGG TESTER Appointment [facility] [address] [place] [address] Geneva Sanchez, LOS 06/15/2024 3:00 PM EGG TESTER Office Visit [facility] [address] [place], [place] [phone] Barbara Valentin, [address] [place] [address] 09/07/2024 3:10 PM EGG TESTER Phone Office Visit [facility] [address] [place] [address] Nikolai Ibarra MD [address] [place] [address] Health Maintenance Due Date Last Done Comments Zoster (shingles) series for age 50+ (1 of 2) 12/19/2011 Pap test for age 21-65 08/17/2015 08/17/2012, 2010 Tetanus booster 08/25/2020 08/25/2010, 12/04, 12/30/2002 Mammogram for age 45-75 04/28/2023 04/28/20, 03/02/2018, 07/26/2013, Additional history exists Influenza for age 50-64 03/04/2024 04/28/20, 04/28/2021, 03/18/2020, Additional history exists Fecal testing sDNA-FIT (Oxford guard) for age 45-75 11/10/2024 11/10/2021 Depression screening for age 12+ 04/16/2025 04/16/2024, 04/16/2024, 04/13/2024, Additional history exists Pneumococcal series for age 6-64 (4 of 4 - PPSV23 or PCV20) 2026 08/17/2016, 08/14/2014, 07/04/2005, Additional history exists Lipids for age 45-75 04/28/2027 04/28/2022, 08/17/2019, 08/31/2018, Additional history exists Tdap Completed 08/25/2010 HIV for age 15-65 Completed 07/21/2015 Hepatitis C screening for ag e 18-79 Completed 02/16/2018 COVID-19 vaccine series Completed 04/06/20, 04/28/2022, 06/23/2021, Additional history exists Medical Devices Implanted Type Area Structural Steel Fitter Device Identifier Shelf Expiration Date Model / Serial / Lot [id number] 2x12mm [[id number]] Implanted:Qty: 1 on 08/08/2008 at [facility] Explanted:at [facility] (Quantity not on file) [facility] [employer] [id number]# / [id number] / Stem Compnt Primary 8mm Mini - [id number] Implanted:Qty: 1 on 03/17/2011 at [facility] Right: Shoulder BIOMET [id number]# / / [id number] Head Hum Bio-Mod [id number] - [id number] Implanted:Qty: 1 on 03/17/2011 at [facility] Right: Shoulder BIOMET [id number]# / / [id number] Base Glenoid Hybrid 4mm Sm - [id number] Implanted:Qty: 1 on 03/17/2011 at [facility] Right: Shoulder BIOMET [id number]# / / [id number] Cmnt 1/2 [employer] - [id number] Implanted:Qty: 1 on 03/17/2011 at [facility] Right: Shoulder [employer] 6188-1-01 0# / / [id number] Post Glenoid Hybrid Regenerex - [id number] Implanted:Qty: 1 on 03/17/2011 at [facility] Right: Shoulder BIOMET [id number] # / / [id number] Head Humeral 44x15 Co Cr Biomodular - [id number] Implanted:Qty: 1 on 07/12/2012 at [facility] Left: Shoulder BIOMET [id number]# / / [id number] Shoulder Stem Implanted:Qty: 1 on 07/12/2012 at [facility] Left: Shoulder [id number] / / [id number] Description:SHOULDER STEM Cmnt Bone 1/2 [employer] - [id number] Implanted:Qty: 1 on 07/12/2012 at [facility] Left: Shoulder [employer] 6188-1-01 0# / / [id number] Post Glenoid Hybrid Regenerex - [id number] Implanted:Qty: 1 on 07/12/2012 at [facility] Left: Shoulder BIOMET [id number] # / / [id number] Base Glenoid Hybrid 4mm Sm - [id number] Implanted:Qty: 1 on 07/12/2012 at [facility] Left: Shoulder BIOMET [id number]# / / [id number] Procedures Procedure Name Priority Date/Time Associated Diagnosis Comments BASIC METABOLIC PANEL Routine 05/04/2024 4:09 PM CDT CKD (chronic kidney disease) stage 4, GFR 15-29 ml/min (HC) BASIC METABOLIC PANEL Routine 04/13/2024 11:50 AM [...] HIV 1/2 Add On 07/21/2015 9:40 AM EGG TESTER SOLE LEVELER THIN PREP PAP SCREEN IMAGED Routine 08/17/2012 4:02 PM EGG TESTER Screening for malignant neoplasm of the cervix from Last 3 Months or Most Recently Relevant to Health Maintenance Results * (ABNORMAL) BASIC METABOLIC PANEL (05/04/2024 4:09 PM CDT) Only the most recent of2 resultswithin the time period is included. GLUCOSE 83 65 - 99 mg/dL [facility] Comment: ? Fasting reference interval UREA NITROGEN (BUN) 33(H) 7 - 25 mg/dL [facility] CREATININE 2.20(H) 0.50 - 1.05 mg/dL [facility] EGFR 25(L) > OR = 60 mL/min/1.7 3m2 [facility] BUN/CREATININE RATIO 15 6 - 22 (calc) [facility] SODIUM 141 135 - 146 mmol/L [facility] POTASSIUM 4.4 3.5 - 5.3 mmol/L [facility] CHLORIDE 99 98 - 110 mmol/L [facility] CARBON DIOXIDE 31 20 - 32 mmol/L [facility] ELECTROLYTE BALANCE 11 7 - 17 mmol/L (calc) [facility] CALCIUM 8.9 8.6 - 10.4 mg/dL [facility] Blood BLOOD SPECIMEN / Unknown 05/04/2024 4:09 PM CDT 05/04/2024 4:09 PM CDT Barbara Valentin DO CHEMISTRY [facility] [address] [place] [address], [facility] [address] [place] [address] * XR MAMMO BILAT SCREENING (04/28/2022 2:04 [...] health care provider. XR MAMMO BILAT SCREENING [[id number]] CLINICAL HISTORY: ??This is an asymptomatic 61 y.o. patient. INDICATION FOR EXAM: Mammogram Screening. TECHNIQUE: CC & MLO views were obtained. ??This study was evaluated with the assistance of Computer-Aided Detection. COMPARISON FILM: Yes 03/02/18 [facility] 07/26/13 [facility] FINDINGS: ??The breasts are extremely dense, which lowers the sensitivity of mammography. There are no dominant masses, suspicious micro calcifications or areas of architectural distortion. Shania Montiel MD MAMMO * LIPID PANEL W REFLEX MEASURED LDL (04/28/2022 1:44 PM CDT) CHOLESTEROL,TOTAL 139 100 - 199 mg/dL 04/30/2022 6:25 PM CDT [facility] TRIGLYCERIDES 141 <150 mg/dL [...] 28 <=30 mg/dL 04/30/2022 6:25 PM CDT [facility] PROVIDER ORDERED STATUS RANDOM 04/30/2022 6:25 PM CDT [facility] Blood BLOOD SPECIMEN / Unknown Venipuncture / Unknown 04/28/2022 1:44 PM CDT 04/28/2022 1:45 PM CDT Shania Montiel MD CHEMISTRY Performing Organization Address [facility] Co de Phone Number [facility] [address] [place] [address], * FECAL DNA (AKA COLOGUARD) (11/10/2021 1:00 PM CDT) Shania Montiel MD COMMUNICATION ORD * ANTI HCV [[id number]] (02/16/2018 4:20 PM CDT) Pathologist [facility] HEPATITIS C ANTIBODY Non-React alex Non-React alex 02/17/2018 2:48 PM CDT [facility] Comment:Antibodies to HCV no t detected; does not exclude the possibility of exposure to HCV. Blood BLOOD SPECIMEN / Unknown Butterfly / Unknown 02/16/2018 4:20 PM CDT 02/16/2018 4:20 PM CDT Coleman Plata MD SEND OUTS Performing Organization Address [facility] Co de Phone Number [facility] [address] [place] [address], * HIV 1&2 TODAY (07/21/2015 9:40 AM EGG TESTER) Pathologist [facility] HIV-1/HIV-2 ANTIBODY Non-Reacti ve Non-Reacti ve 07/21/2015 10:31 AM EGG TESTER [facility] Blood specimen (specimen) BLOOD SPECIMEN / Unknown Venipuncture / Unknown 07/21/2015 9:40 AM EGG TESTER 07/21/2015 9:47 AM EGG TESTER Narrative [facility] - 07/21/2015 10:31 AM EGG TESTER HIV-1 p24 and HIV-1/HIV-2 Ab not detected Kait Morales DO SEND OUTS [facility] [address] [place] [address], * SOLE LEVELER THIN PREP PAP SCREEN IMAGED (08/17/2012 4:02 PM EGG TESTER) CYTOLOGY CYTOPATHOLOGY REPORT [facility] [facility] Status: Final Status ?[id number] CLINICAL INFORMATION Last Date of LMP ? :07/03/2012 Last Pap Date ?:02/01/2011 Last Pap Result ?:NIL ABN [place]/Bx Past 5 YRS :None Hormone Usage ?:BCP/OCP/Patch/R ing Menstrual Status ? :Regular Periods [place]/Bx done today ? :No Additional Information :None [...] COLLECTED:08/17/12 ? ACCESSIONED: ??08/18/12 ?? SIGNED: ??08/21/12 [facility] PAP [place] CODE NIL [facility] Tissue specimen (specimen) (Cervical/Vagina l) 08/17/2012 4:02 PM EGG TESTER 08/17/2012 4:00 PM EGG TESTER Coleman Plata MD PATHOLOGY/CYTOLOGY [facility] INTERNAL ZIP [phone] [place] [address] from Last 3 Months or Most Recently [...] Urine earlier this year (per report from [facility], not available in CareEverywhere), 04/19/18 L cheek abscess exclusions for contact precaution discontinuation (if > 12 months since positive culture): resides in acute/intermediate accountant care, receiving hemodialysis, has chronic open wounds/skin [...] 8:01 PM 07/15/2012 6:55 PM Care Teams Office Coordinator Receptionist Relationship Specialty Start Date End Date Barbara Valentin DO [address] [place] [address] PCP - General Family Practice 11/15/22 Julio Ibrahim MD [address] [place] [address] Surgery - Orthopedics 02/01/11 Chuy Doss MD [address] [place] [address] Surgery - Vascular 02/01/11 Markel Strong MD [address] [place] [address] Provider Family Practice 08/08/20 Nikolai Ibarra MD [address] [place] [address] Endocrinology 09/07/22 [facility] [address] [address] 04/07/24 Suad Ng/ [employer] CM Cafeteria Supervisor 07/14/17 [facility] Home Health Nurse 07/01/17 [facility] DIP LUBE OPERATOR Services Home Health Aide 07/14/17 [facility] Mechanical Repair Worker/ Ally Christianson [address] [place] [address] Cafeteria Supervisor 07/07/17
== END 2024-05-03 21:34 | disposition home or self-care (01) ==
LOC: AMB 05-08 03:11
PROVIDERS: PCP Family Medicine; Visit Provider Family Medicine
DX: R41.82 Altered mental status, unspecified (principal)
CPT/HCPCS: A0425; A0427

== ENCOUNTER 2024-05-03 22:06 | Emergency (ER) | payer OTHER, SELFPAY ==
[2024-05-03 22:07] VITALS: BP 139/66; PULSE 89; RESP 18; TEMP 36.3; O2SAT 96; BMI 39.1
--- NOTE | 2024-05-03 23:09 | ED_ITS ---
HPI - General Adult General Chief complaint: Altered Mental Status Stated complaint: Hypoglecemia Time Seen by Provider: 05/03/24 22:07 Source: patient and EMS Mode of arrival: EMS History of Present Illness HPI narrative: 63-year-old female brought in by EMS. She was visiting with her sister when she became unresponsive. EMS took her blood sugar and it was 34. She was given glucagon and she perked up right away. She is brought to the emergency department. Blood sugar was 65 on route they reported, she is 49 upon arrival. She can not tell me what her insulin regimen is which honestly is not that atypical for Kati. We know each other well from previous ED visits. She has been a type 1 diabetic since she was about 10 years old, she is terrible vascular disease. She gets terrible obstructive sleep apnea spells. She is also a bit of a night owl. She can not remember what she ate for dinner tonight. She thinks it must have been less than usual. She does manage all of her own insulin. She was hospitalized just in the last month for hyperglycemia. She denies fevers or recent illness. No chest pain, no difficulty breathing. Were having a hard time getting an IV line, she is agreeable to eating a sandwich and drinking some juice. She already had about 4 oz of juice finished just in my time of conversation with her. No recent falls, trauma or injury. No vomiting, diarrhea or GI changes. No areas of pain. She has no acute concerns and feels much better now that her blood sugar is higher. Hospitalization from March reviewed which had some nighttime hypoglycemia. Past medical history most notable for type 1 diabetes, coronary artery disease in all the complications that ensued. She also has obstructive sleep apnea, hyperlipidemia. Chronic pain. Hypothyroidism. ROS is notable only for the endocrine symptoms as stated above, otherwise denies times 12 systems. Related Data Home Medications ?Medication ?Instructions ?Recorded ?Confirmed amlodipine 2.5 mg tablet 2.5 mg PO BID 10/11/22 04/05/24 atorvastatin 20 mg tablet 20 mg PO HS 10/11/22 04/05/24 buprenorphine 5 mcg/hour weekly 1 patch transdermal Q7D 10/11/22 04/05/24 transdermal patch cetirizine 5 mg tablet 5 mg PO DAILY 10/11/22 04/05/24 cholecalciferol (vitamin D3) 50 50 mcg PO DAILY 10/11/22 04/05/24 mcg (2,000 unit) capsule duloxetine 60 mg capsule,delayed 60 mg PO DAILY 10/11/22 04/05/24 release metoprolol succinate 25 mg 25 mg PO DAILY 10/11/22 04/05/24 tablet,extended release 24 hr omeprazole 20 mg capsule,delayed 20 mg PO DAILY 10/11/22 04/05/24 release oxycodone 5 mg tablet 5 mg PO BID PRN 10/11/22 04/05/24 polyethylene glycol 3350 17 17 g PO DAILY PRN 10/11/22 04/05/24 gram/dose oral powder (Miralax) pregabalin 100 mg capsule 100 - 200 mg PO BID 10/11/22 04/05/24 pregabalin 50 mg capsule 50 mg PO HS 10/11/22 04/05/24 sennosides 8.6 mg-docusate sodium 2 tab PO BID PRN 10/11/22 04/05/24 50 mg tablet (Stool Softener-Stimulant Laxative) torsemide 20 mg tablet 40 mg PO DAILY 10/11/22 04/05/24 vitamin B12 2,500 mcg-folic acid 1 tab PO DAILY 10/11/22 04/05/24 400 mcg disintegrating tablet acetaminophen 650 mg 1,300 mg PO Q8H 12/19/22 04/05/24 tablet,extended release levothyroxine 125 mcg tablet 125 mcg PO DAILY 05/25/23 04/05/24 fluoxetine 10 mg capsule 10 mg PO DAILY 03/16/24 04/05/24 cyanocobalamin (vitamin B-12) 1,000 mcg PO DAILY 03/17/24 04/05/24 1,000 mcg tablet glucagon 3 mg/actuation nasal 3 mg intranasal DIRECTED PRN 03/17/24 04/05/24 spray (Baqsimi) naloxone 4 mg/actuation nasal 4 mg intranasal DIRECTED PRN 03/17/24 04/05/24 spray (Narcan) Previous Rx's ?Medication ?Instructions ?Recorded insulin lispro 100 unit/mL 1 sliding scale dose subcut 04/02/24 subcutaneous pen (Humalog KwikPen TIDWMEAL #15 mL (U-100) Insulin) insulin glargine 100 unit/mL (3 8 unit (0.08 mL) subcut DAILY #15 04/06/24 mL) subcutaneous pen (Lantus mL Solostar U-100 Insulin) insulin lispro 100 unit/mL 8 unit (0.08 mL) subcut TIDWMEAL 04/06/24 subcutaneous pen (Humalog KwikPen #4.5 mL (U-100) Insulin) Allergies Allergy/AdvReac Type Severity Reaction Status Date / Time ampicillin Allergy Mild Hives Verified 05/03/24 22:11 aspirin Allergy Unknown Verified 05/03/24 22:11 NSAIDS (Non-Steroidal Allergy Unknown Verified 05/03/24 22:11 [facility] Medical History Abnormal urinalysis ?R82.90 - Unspecified abnormal findings in urine (ICD-10) Nocturnal hypoglycemia ?E16.1 - Other hypoglycemia (ICD-10) Stage 4 chronic kidney disease ?N18.4 - Chronic kidney disease, stage 4 (severe) (ICD-10) Congestive heart failure (CHF) ?I50.9 - Heart failure, unspecified (ICD-10) Hypertension ?I10 - Essential (primary) hypertension (ICD-10) Diabetes type I ?E10.9 - Type 1 diabetes mellitus without complications (ICD-10) Hyperosmolar syndrome ?E87.0 - Hyperosmolality and hypernatremia (ICD-10) Sleep apnea ?G47.30 - Sleep apnea, unspecified (ICD-10) Ulnar neuropathy ?G56.20 - Lesion of ulnar nerve, unspecified upper limb (ICD-10) Hyperlipidemia ?E78.5 - Hyperlipidemia, unspecified (ICD-10) Morbid obesity ?E66.01 - Morbid (severe) obesity due to excess calories (ICD-10) GERD (gastroesophageal reflux disease) ?K21.9 - Gastro-esophageal reflux disease without esophagitis (ICD-10) 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 diabetic neuropathic arthropathy (ICD-10) Depressive disorder ?F32.A - Depression, unspecified (ICD-10) COPD (chronic obstructive pulmonary disease) ?J44.9 - Chronic obstructive pulmonary disease, unspecified (ICD-10) Chronic pain syndrome ?G89.4 - Chronic pain syndrome (ICD-10) Chronic kidney disease, stage 1 ?N18.1 - Chronic kidney disease, stage 1 (ICD-10) Carpal tunnel syndrome ?G56.00 - Carpal tunnel syndrome, unspecified upper limb (ICD-10) Diabetic retinopathy ?E11.319 - Type 2 diabetes mellitus with unspecified diabetic retinopathy without macular edema (ICD-10) Anemia of other chronic disease ?D63.8 - Anemia in other chronic diseases classified elsewhere (ICD-10) Acute respiratory failure ?J96.00 - Acute respiratory failure, unspecified whether with hypoxia or hypercapnia (ICD-10) Surgical History History of thyroidectomy ?E89.0 - Postprocedural hypothyroidism (ICD-10) History of hip replacement ?Z96.649 - Presence of unspecified artificial hip joint (ICD-10) History of gastric bypass ?Z98.84 - Bariatric surgery status (ICD-10) History of section ?Z98.891 - History of uterine scar from previous surgery (ICD-10) Hx of cataract removal with insertion of prosthetic lens ?Z98.49 - Cataract extraction status, unspecified eye (ICD-10) ?Z96.1 - Presence of intraocular lens (ICD-10) History of carpal tunnel release ?Z98.890 - Other specified postprocedural states (ICD-10) History of knee replacement procedure of right knee ?Z96.651 - Presence of right artificial knee joint (ICD-10) Family History Mother Diabetes Obesity Sleep apnea Brother Diabetes Obesity Sleep apnea Father Sleep apnea High blood pressure Social History Narrative: Full Code. Lives with son Mitul, who would be medical decision maker if needed. Also lives with sister. She does not smoke. She does not drink alcohol. What is your current living situation?: I presently have a place to live Problems where you live: no known problems Problems where you live details: n/a In the past 12 months, utilities in danger of being shut off: no In past 12 months, lack of transportation kept you from medical appts, meetings, work, or getting things needed for daily living: no In the past 12 mos, have been you worried that your food would run out before you had money to buy more?: never true In the past 12 mos, the food you bought just didn't last and you didn't have money to buy more?: never true Highest level of school completed/degree received: some college, no degree Smoking Status: Never smoker Do you use any of these nicotine containing products: None Second hand tobacco smoke exposure: No How often do you have a drink containing alcohol: never How often do you have six or more drinks on one occasion: Never AUDIT-C Alcohol total score: 0 Non-prescribed substance use: denies use Caffeine: No How often does anyone, including family, friends and others, physically hurt you : never How often does anyone, including family, friends and others, insult or talk down to you: never How often does anyone, including family, friends and others, threaten you with harm: never How often does anyone, including family, friends and others, scream or curse at you: never service: No Exam Const: Vital Signs, click to edit/add: Vital Signs - 24 hr 05/03/24 22:07 Temperature 97.4 F L Pulse Rate [Right Pulse Oximeter] 89 Respiratory Rate 18 Blood Pressure [Ri ght Upper Arm] 139/66 Pulse Oximetry 96 Oxygen Delivery Me thod Room Air Documenting provider has reviewed patient's vital signs: yes Common normals: no apparent distress and oriented x3 General appearance: cooperative, comfortable and well kempt HENMT: Common normals: normocephalic Head and scalp: normocephalic Face and sinus: normal facial exam Mouth: oral and palatal mucosa normal Throat: posterior oropharynx normal Eye: Common normals: conjunctivae normal General eye: normal appearance of both eyes Conjunctiva: conjunctiva(e) normal Neck & C-Spine: Common normals: full ROM Resp: Common normals: normal respiratory effort, no use of accessory muscles and clear to auscultation bilaterally Effort & inspection: able to speak in complete sentences Auscultation: clear to auscultation bilaterally Cardio: Common normals: regular rate, regular rhythm, S1 normal heart sound, S2 normal heart sound and no murmurs Rate: regular rate Rhythm: regular rhythm Heart sounds: S1 normal and S2 normal GI: Common normals: Normal to inspection, nondistended, normoactive bowel sounds present, soft to palpation, non-tender, no hepatosplenomegaly and no masses Palpation: soft and no hepatosplenomegaly Extremity: Common normals: normal capillary refill and no pedal edema Neuro: Common normals: oriented x3, CN's II-XII intact bilaterally, moves all extremities and no focal motor deficits Speech: speech normal Motor exam: no movement abnormalities noted Psych: Appearance: well kempt Attitude: engaged Mood and affect: euthymic mood Insight: insight good Judgement: judgment good Skin: Common normals: no rashes or lesions noted General skin exam: no rashes or lesions noted Course Course ED Course: 63-year-old female with very brittle type 1 diabetes and unfortunately rounds of recent hypo and hyperglycemia. I really which Kati had a continuous glucose monitor an insulin pump to help her. At this point, her hypoglycemia has resolved. She is drinking juice, she had a sandwich. We are going to monitor her blood sugars for a couple of hours and if she remains in safe range, we will plan to discharge home. If there is any altered mental status, further attic blood sugars or other alarming symptoms, will obtain blood work and do more testing. Reevaluation(s) Time of Reevaluation #1: 23:29 Reevaluation #1: Feeling well. Blood sugar 30 minutes ago was 160, now currently 217. Okay to discharge with friend. She actually does have a continuous glucose monitor I was told. She just forgot to bring it with her. She was getting alert from it when she was at her friend's house that her blood sugar was getting low, she just chose not to act on it fast enough. Vital Signs Vital signs: Initial Vital Signs Temperature 97.4 F L 05/03/24 22:07 Temperature Source Temporal Artery Scan 05/03/24 22:07 Pulse Rate 89 05/03/24 22:07 Pulse Rhythm Regular 05/03/24 22:07 Pulse Strength 3+ Normal 05/03/24 22:07 Respiratory Rate 18 05/03/24 22:07 Blood Pressure 139/66 05/03/24 22:07 Blood Pressure Mean 90 05/03/24 22:07 Blood Pressure Position Supine 05/03/24 22:07 Pulse Oximetry 96 05/03/24 22:07 Oxygen Delivery Method Room Air 05/03/24 22:07 Vital Signs Temperature 97.4 F L 05/03/24 22:07 Pulse Rate 89 05/03/24 22:07 Respiratory Rate 18 05/03/24 22:07 Blood Pressure 139/66 05/03/24 22:07 Pulse Oximetry 96 05/03/24 22:07 Oxygen Delivery Method Room Air 05/03/24 22:07 Temperature 97.4 F L 05/03/24 22:07 Pulse Rate 89 05/03/24 22:07 Respiratory Rate 18 05/03/24 22:07 Blood Pressure 139/66 05/03/24 22:07 Pulse Oximetry 96 05/03/24 22:07 Oxygen Delivery Method Room Air 05/03/24 22:07 Discharge Plan Discharge Clinical Impression: Multiple episodes of hypoglycemia Patient Disposition: Home w/ Parent or Adult Condition: Improved Instructions: Hypoglycemia in a Person with Diabetes (ED), What to Do if Your Blood Sugar is Low (ED) Additional Instructions: I am glad that this episode was caught before there were any neurological injuries. Your blood sugar has been quite stable here in the emergency department in since you are able to eat and drink some juice and things have remained in good range, we should discharge home. For now, stay on the same dose of Lantus and Humalog. As I have previously recommended, I think it is best if you do your Lantus in the morning rather than at night to help reduce her chance of nighttime low blood sugars. Titrate your short-acting insulin based on what you are eating. Make sure you check your blood sugar before bedtime and if below 150, have a snack. Please follow-up with your primary care doctor if you continue to experience difficulties managing your blood sugars. Activity Level: No Restrictions Discharge Diet: Diabetic Prescriptions: No Action atorvastatin 20 mg tablet 20 mg PO HS torsemide 20 mg tablet 40 mg PO DAILY cetirizine 5 mg tablet 5 mg PO DAILY sennosides-docusate sodium [Stool Softener-Stimulant Laxat] 8.6-50 mg tablet 2 tab PO BID PRN omeprazole 20 mg capsule,delayed release(DR/EC) 20 mg PO DAILY metoprolol succinate 25 mg tablet extended release 24 hr 25 mg PO DAILY oxycodone 5 mg tablet 5 mg PO BID PRN duloxetine 60 mg capsule,delayed release(DR/EC) 60 mg PO DAILY pregabalin 50 mg capsule 50 mg PO HS Rx Instructions: WITH 100 MG DOSE = 150 MG QHS pregabalin 100 mg capsule 100 - 200 mg PO BID Rx Instructions: 200 MG IN AM AND 150 MG IN PM cholecalciferol (vitamin D3) 50 mcg (2,000 unit) capsule 50 mcg PO DAILY buprenorphine 5 mcg/hour patch weekly 1 patch transdermal Q7D polyethylene glycol 3350 [Miralax] 17 gram/dose powder 17 g PO DAILY PRN amlodipine 2.5 mg tablet 2.5 mg PO BID vitamin J70-hxudn acid 2,500-400 mcg tablet,disintegrating 1 tab PO DAILY levothyroxine 125 mcg tablet 125 mcg PO DAILY fluoxetine 10 mg capsule 10 mg PO DAILY cyanocobalamin (vitamin B-12) 1,000 mcg tablet 1,000 mcg PO DAILY Baqsimi 3 mg/actuation spray,non-aerosol 3 mg intranasal DIRECTED PRN naloxone [Narcan] 4 mg/actuation spray,non-aerosol 4 mg intranasal DIRECTED PRN acetaminophen 650 mg tablet extended release 1,300 mg PO Q8H insulin lispro [Humalog KwikPen Insulin] 100 unit/mL insulin pen 1 sliding scale dose subcut TIDWMEAL Qty: 15 0RF Rx Instructions: Blood Glucose 150 or less, no extra insulin. Blood Glucose 151-200, add 2 units to mealtime insulin Blood Glucose 201-250, add 4 units to mealtime insulin Blood Glucose 251-300, add 6 units to mealtime insulin Blood Glucose 301-350, add 8 units to mealtime insulin Blood Glucose 351 to 400, add 10 units to mealtime insulin Blood Glucose 401 and greater, add 12 units to mealtime insulin insulin lispro [Humalog KwikPen Insulin] 100 unit/mL insulin pen 8 unit subcut TIDWMEAL Qty: 4.5 2RF insulin glargine [Lantus Solostar U-100 Insulin] 100 unit/mL (3 mL) Insulin Pen 8 unit subcut DAILY Qty: 15 0RF Follow Up/Referrals: Barbara Valentin DO [Primary Care Provider] - Stand Alone Forms: [facility] Info Instructions
--- OUTSIDE RECORDS SUMMARY | 2024-05-03 23:38 | XMS_ITS | Encounter Summary ---
Author Organization [facility] Address [address] [place] [address] Care Team Providers Care Network Engineer Administrator Name Role Phone Barbara Valentin DO Primary Care Provider [phone] Encounter Details Date Type Department Care Team (Late st Contact Info) Description 02/01/2024 Telephone [facility] [address] [place] [address] Gabriel Hicks MD [address] [place] [address] Social History Tobacco Use Types [...] [facility] [address] [place] [address] Gabriel Hicks MD [address] [facility] [address] [address] Chronic kidney disease, stage 4 (severe) (HCC) documented as of this encounter Visit Diagnoses Not on filedocumented in this encounter Care Teams Network Engineer Administrator Relationship Specialty Start Date End Date Barbara Valentin DO [address] [place] [address] PCP - General Family Medicine 09/22/23 documented as of this encounter
--- OUTSIDE RECORDS SUMMARY | 2024-05-03 23:38 | XMS_ITS | Encounter Summary ---
Author Organization [facility] Address [address] [place] [address] Care Team Providers Care Box Cutter Name Role Phone Barbara Valentin DO Primary Care Provider [phone] Encounter Details Date Type Department Care Team (Late st Contact Info) Description 09/22/2023 Documentation Only [facility] [place] [address] [place] [address] No, Pcp Social History Tobacco [...] [facility] [address] [place] [address] Gabriel Hicks MD [address] [place] [address] Chronic kidney disease, stage 4 (severe) (HCC) documented as of this encounter Visit Diagnoses Not on filedocumented in this encounter Care Teams Box Cutter Relationship Specialty Start Date End Date Barbara Valentin DO [address] [place] [address] PCP - General Family Medicine 09/22/23 documented as of this encounter
--- OUTSIDE RECORDS SUMMARY | 2024-05-03 23:38 | XMS_ITS | Clinical Summary ---
Author Organization [facility] Address [address] [facility] [place] [address] Phone Care Team Providers Care Registered Nurse Cardiac Telemetry Name Role Phone Barbara Valentin DO Primary Care Provider [phone] Allergies Active Allergy Reactions Criticality Noted Date [...] One Pack) 3 MG/DOSE powder Inhale 1 Craig into affected nostril(s) each time if needed [...] was 11.5 on 02/28/2023. Essential hypertension 09/09/2006 Immunizations Name Administration Dates Next Due Influenza, [...] 05/12/2024 Orders Only [facility] [place] [address] [place] [id number] Gabriel Hicks MD [address] [facility] [address] [place] [address] Chronic kidney disease, stage 4 (severe) [...] to complete this topic [place] [facility] [id number] [id number] Care Teams Registered Nurse Cardiac Telemetry Relationship Specialty Start Date End Date Barbara Valentin DO [address] [place] [address] PCP - General Family Medicine 09/22/23
--- OUTSIDE RECORDS SUMMARY | 2024-05-03 23:38 | XMS_ITS | Clinical Summary ---
Author Organization [facility] Address [place], [place] [address] Care Team Providers Care Ski Instructor Name Role Phone Julio Ibrahim MD Unavailable [phone] Chuy Doss MD Unavailable Markel Strong MD Unavailable [phone] Nikolai Ibarra MD Unavailable [phone] Barbara Valentin DO Primary Care Provider [phone] [facility] Allergies Active Allergy Reactions Criticality Noted [...] nasal solution (FLONASE)Indicati ons:Nasal congestion Inhale 1 [place] into affected nostril(s) once daily. Inhale 1 [place] in the nostril(s) once daily. 16 g [...] continuous glucose monitor READER (FreeStyle Elli 2 [place])Indication s:Type 1 diabetes mellitus with other specified complication (HC) To be used to read blood sugars per janitorial assistant's directions. 1 Each 05/19/20 23 Active blood-glucose [...] be used to read blood sugars per janitorial assistant's directions. 6 Each 3 09/06/19 24 [...] Chronic, continuous use of opioids Inhale 1 [place] into affected nostril(s) each time if needed [...] mellitus at risk of hypoglycemia Inhale 1 [place] into affected nostril(s) each time if needed [...] mellitus at risk of hypoglycemia Inhale 1 [place] into affected nostril(s) each time if needed [...] agreement signed - 10/07/23 10/07/2023 Overview (10/07/2023): [facility] Noemí Dennis .................... 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) use of anticoagulants 11/27/2013 12/28/2013 Anticoagulation [...] 04/30/2024 10:00 AM CDT Home Care Visit [facility] [address] [place] [address] Geneva Sanchez, LOS SN - HOME VISIT 04/27/2024 10:30 AM CDT Home Care Visit [facility] [address] [place] [phone] Geneva Sanchez, LOS SN - HOME VISIT 04/27/2024 Telephone [facility] [address] [place] [address] Barbara Valentin, DO 04/24/2024 9:00 AM CDT Home Care Visit [place] [address] [place] [phone] Geneva Sanchez, LOS SN - HOME VISIT 04/21/2024 1:00 PM CDT Home Care Visit [address] [phone] Geneva Sanchez, LOS SN - HOME VISIT 04/21/2024 Telephone [facility] [address] [place] [address] Barbie Barbara Patricia, DO Home Care (Update) 04/20/2024 Telephone [facility] [address] [phone] Romina Pro, LOS Failed Appointment 04/20/2024 Refill [facility] [address] [place] [address] Toshia Hooks NP Refill Request 04/20/2024 Telephone [facility] [address] [place] [address] Barbie Barbara Patricia, DO Diabetes (/) 04/17/2024 9:00 AM CDT Home Care Visit [place] [address] [place] [phone] Geneva Sanchez, LOS SN - HOME VISIT 04/17/2024 Telephone [facility] [address] [place] [phone] Geneva Sanchez, manager night 04/16/2024 Telephone [facility] [address] [place] [address] Barbara Valentin, Results 04/16/2024 Patient Outreach [facility] - Care Management Navigation/[facility] [address] [place] [address] Aide Rolon [facility] (Care Guide Breast Cancer Screening outreach/) 04/13/2024 11:00 AM CDT Office Visit [facility] [address] [place] [address] Barbara Valentin, Follow Up (Diabetes, home care, medications) 04/13/2024 1:20 AM CDT Home Care Visit [facility] [address] [place] [phone] Coleman Rock RN SN - WOUND/OSTOMY CHART CONSULT 04/13/2024 Refill [facility] [address] [place] [address] Barbara Valentin, Refill Request (need changes/clarificatio n) 04/13/2024 Travel 04/12/2024 9:00 AM CDT Home Care Visit [facility] [address] [place] [address] Geneva Sanchez, RN SN - OASIS START OF CARE 04/12/2024 Orders Only [facility] [address] [place] [address] Barbara Valentin, DO <No scans attached> 04/12/2024 Telephone [facility] [address] [place] [phone] Geneva Sanchez, manager night 04/12/2024 Patient Outreach [facility] - Care Management Navigation[facility] [address] [place] [address] Aide Rolon [facility] (Care Guide Breast Cancer Screening outreach/) 04/12/2024 Plan of Care Documentation [facility] [address] [place] [address] 04/09/2024 Patient Outreach [facility] Care Management - Care Management Navigation/[facility] [address] [place] [address] Aide Rolon [facility] (Care Guide Breast Cancer Screening outreach/) 04/09/2024 Home Care Visit [place] [address] [place] [phone] Elvi Meyers RN CARE COORDINATION 04/06/2024 11:25 AM CDT Office Visit [facility] [address] [place] [address] Shaqra Barbara Patricia, DO Hospital F/U (Hypoglycemia - ER/hospital 03/29, 04/06 ) 04/06/2024 Orders Only [facility] [address] [place] [address] Nikolai Ibarra MD <No scans attached> 04/06/2024 Travel 04/04/2024 Refill [facility] [address] [place] [address] Saúlqra Barbara Patricia, DO Refill Request (Amlodipine, Omeprazole) 03/27/2024 Telephone [facility] [address] [place] [address] Saúlqra Barbara Patricia, DO Questions 03/16/2024 Refill [facility] [address] [place] [address] Toshia Hooks NP Refill Request 03/14/2024 10:30 AM CDT Home Care Visit [facility] [address] [place] [phone] Geneva Sanchez RN SN - OASIS DISCHARGE 03/12/2024 Refill [facility] [address] [address] BarbieSiresteban Gomez, DO Refill Request (Pregabalin, Fluoxetine, Duloxetine) 03/06/2024 10:00 AM CDT Home Care Visit [facility] [address] [place] [phone] Geneva Sanchez, LOS SN - HOME VISIT 03/06/2024 9:15 AM CDT Home Care Visit [facility] [address] [place] [phone] Alex Contreras ENAMEL APPLIER - HOME VISIT 03/03/2024 Home Care Visit [facility] [address] [place] [phone] Nitza Riojas LISW CARE COORDINATION 02/28/2024 2:00 PM CDT Home Care Visit [facility] [address] [place] [phone] Shania Elaine, LOS SN - HOME VISIT 02/28/2024 10:45 AM CDT Home Care Visit [facility] [address] [place] [phone] Fabiola Mathis ENAMEL APPLIER - HOME VISIT 02/25/2024 Home Care Visit [facility] [address] [place] [phone] Nitza Riojas LISW CARE COORDINATION 02/22/2024 3:00 PM CDT Home Care Visit [facility] [address] [place] [phone] Trini Hitchcock RN SN - HOME VISIT 02/22/2024 Home Care Visit [facility] [address] [place] [phone] Dar Phillips, OT OT - DISCIPLINE DISCHARGE 02/21/2024 9:45 AM CDT Home Care Visit [facility] [address] [place] [phone] Alex Contreras ENAMEL APPLIER - HOME VISIT 02/20/2024 Home Care Visit [facility] [address] [place] [phone] Nitza Riojas LISW PRODUCTION SUPPORT ENGINEER - INITIAL ASSESSMENT 02/16/2024 Refill [facility] [address] [place] [address] Toshia Hooks NP Refill Request (oxyCODONE (ROXICODONE) 5 mg immediate release tablet ) 02/15/2024 3:45 PM CDT Home Care Visit [facility] [address] [place] [phone] Coleman Greene, PT PT - DISCIPLINE DISCHARGE 02/15/2024 11:00 AM CDT Home Care Visit [address] [phone] Geneva Sanchez RN SN - HOME VISIT 02/14/2024 12:00 PM CDT Home Care Visit [address] [phone] Joi Moreno VARELA OT - HOME VISIT 02/14/2024 8:15 AM CDT Home Care Visit [address] [phone] Fabiola Mathis ENAMEL APPLIER - HOME VISIT 02/10/2024 3:30 PM CDT Home Care Visit [address] [phone] Joi Moreno VARELA OT - HOME VISIT 02/10/2024 Home Care Visit [address] [phone] Nitza Riojas LISW PRODUCTION SUPPORT ENGINEER - CASE COMMUNICATION 02/09/2024 Refill [facility] [address] [place] [address] Barbara Valentin, DO Refill Request (Duloxetine) 02/08/2024 3:00 PM CDT Home Care Visit [address] [place] [address] Veda Resendiz RN SN - WOUND/OSTOMY CHART CONSULT 02/08/2024 9:00 AM CDT Home Care Visit [facility] [address] [place] [address] Geneva Sanchez, LOS SN - HOME VISIT 02/08/2024 Telephone [facility] [address] [place] [address] Barbara Valentin Patricia, DO Pharmacist Medication Management (MEDICATION CHANGE) 02/08/2024 Telephone [facility] [address], [place] [address] Geneva Sanchez, internet marketing strategist List Update 02/07/2024 4:00 PM CDT Home Care Visit [facility] [address] [place] [phone] Joi Moreno COTA OT - HOME VISIT 02/07/2024 9:30 AM CDT Home Care Visit [facility] [address] [place] [phone] Kendal Serna, PT PT - HOME VISIT 02/07/2024 Telephone [facility] [address] [place] [address] Barbie Barbara Patricia, DO Refill Request (Insulin lispro pens) 02/04/2024 Refill [facility] [address] [place] [address] Sir Valentini Patricia, DO Refill Request (Insulin Lispro) 02/03/2024 9:00 AM CDT Home Care Visit [facility] [address] [place] [phone] Joi Moreno COTA OT - HOME VISIT 02/02/2024 11:00 AM CDT Home Care Visit [facility] [address] [place] [phone] Kendal Serna, PT PT - HOME VISIT 02/01/2024 4:00 PM CDT Home Care Visit [facility] [address] [place] [address] Joi Moreno COTA OT - HOME VISIT [...] 05/04/2024 12:15 PM CDT Home Care Visit [facility] [address] [place] [address] Geneva Sanchez, LOS 05/04/2024 3:00 PM CDT Office Visit [facility] [address] [place] [address] Barbara Valentin, DO [address] [place] [address] 05/04/2024 3:30 PM CDT Phone [facility] [address] [facility] [address] [facility] [address] [place] [address] Nikolai Ibarra MD [address] [facility] [address] [facility] [address] [place] [address] 05/07/2024 10:00 AM HOOK PULLER Home Care Visit [address] [phone] Geneva Sanchez, LOS 05/14/2024 4:00 AM HOOK PULLER Home Care Visit [address] [phone] Geneva Sanchez, LOS 05/21/2024 4:00 AM HOOK PULLER Home Care Visit [address] [phone] Geneva Sanchez, LOS 05/28/2024 4:00 AM HOOK PULLER Home Care Visit [address] [phone] Geneva Sanchez, LOS 06/04/2024 4:00 AM HOOK PULLER Appointment [address] [address] Geneva Sanchez, LOS 06/15/2024 3:00 PM HOOK PULLER Office Visit [facility] [address] [place] [address] Barbara Valentin Patricia, DO [address] [place] [address] Health Maintenance Due Date Last Done Comments Zoster (shingles) series for age 50+ (1 of 2) 12/19/2011 Pap test for age 21-65 08/17/2015 08/17/2012, 2010 Tetanus booster 08/25/2020 08/25/2010, 12/04, 12/30/2002 Mammogram for age 45-75 04/28/2023 04/28/20, 03/02/2018, 07/26/2013, Additional history exists Influenza for age 50-64 03/04/2024 04/28/20, 04/28/2021, 03/18/2020, Additional history exists Fecal testing sDNA-FIT ([place] guard) for age 45-75 11/10/2024 11/10/2021 Depression [...] history exists Medical Devices Implanted Type Area Guard Rail Installer Device Identifier Shelf Expiration Date Model / Serial / Lot [id number] 2x12mm [[id number]] Implanted:Qty: 1 on 08/08/2008 at [facility] Explanted:at [facility] (Quantity not on file) [employer] [id number]# / [id number] / Stem Compnt Primary 8mm Mini - [id number] Implanted:Qty: 1 on 03/17/2011 at [facility] Right: Shoulder BIOMET [id number]# / / [id number] Head Hum Bio-Mod [id number] - [id number] Implanted:Qty: 1 on 03/17/2011 at [facility] Right: Shoulder BIOMET 230527# / / [id number] Base Glenoid Hybrid 4mm Sm - [id number] Implanted:Qty: 1 on 03/17/2011 at [facility] Right: Shoulder BIOMET 702152# / / [id number] Cmnt 1/2 Dosehowmedica - [id number] Implanted:Qty: 1 on 03/17/2011 at [facility] Right: Shoulder [employer] 6188--01 0# / / [id number] Post Glenoid Hybrid Regenerex - [id number] Implanted:Qty: 1 on 03/17/2011 at [facility] Right: Shoulder BIOMET PT-[id number] # / / [id number] Head Humeral 44x15 Co Cr Biomodular - [id number] Implanted:Qty: 1 on 07/12/2012 at [facility] Left: Shoulder BIOMET 626956# / / [id number] Shoulder Stem Implanted:Qty: 1 on 07/12/2012 at [facility] Left: Shoulder [id number] / / [id number] Description:SHOULDER STEM Cmnt Bone 1/2 Dosehowmedica - [id number] Implanted:Qty: 1 on 07/12/2012 at [facility] Left: Shoulder [employer] 6188-1- 0# / / [id number] Post Glenoid Hybrid Regenerex - [id number] Implanted:Qty: 1 on 07/12/2012 at [facility] Left: Shoulder BIOMET PT-[id number] # / / [id number] Base Glenoid Hybrid 4mm Sm - [id number] Implanted:Qty: 1 on 07/12/2012 at [facility] Left: Shoulder BIOMET 102404# / / [id number] Procedures Procedure Name Priority Date/Time Associated Diagnosis [...] HIV 1/2 Add On 07/21/2015 9:40 AM HOOK PULLER CINDER DUMP CRANE OPERATOR THIN PREP PAP SCREEN IMAGED Routine 08/17/2012 4:02 PM HOOK PULLER Screening for malignant neoplasm of the cervix from Last 3 Months or Most Recently Relevant to Health Maintenance Results * (ABNORMAL) BASIC METABOLIC PANEL (04/13/2024 11:50 AM CDT) GLUCOSE 170(H) 65 - 99 mg/dL [facility] Comment: ? Fasting reference interval [...] AM CDT Barbara Haysjaimee CHEMISTRY [facility] [address] [place] [address], [facility] [address] [place] [address] * XR MAMMO BILAT SCREENING (04/28/2022 2:04 [...] health care provider. XR MAMMO BILAT SCREENING [[id number]] CLINICAL HISTORY: ??This is an asymptomatic 61 y.o. patient. INDICATION FOR EXAM: Mammogram Screening. TECHNIQUE: CC & MLO views were obtained. ??This study was evaluated with the assistance of Computer-Aided Detection. COMPARISON FILM: Yes 03/02/18 [facility] 07/26/13 [email or web address] FINDINGS: ??The breasts are extremely dense, which lowers the sensitivity of mammography. There are no dominant masses, suspicious micro calcifications or areas of architectural distortion. Shania Montiel MD MAMMO * LIPID PANEL W REFLEX MEASURED LDL (04/28/2022 1:44 PM CDT) Pathologist [facility] CHOLESTEROL,TOTAL 139 100 - 199 mg/dL 04/30/2022 6:25 PM CDT [facility] TRIGLYCERIDES 141 <150 mg/dL 04/30/2022 6:25 PM CDT [facility] HDL CHOLESTEROL 42 >40 mg/dL 6:25 PM CDT [facility] NON-HDL CHOLESTEROL 97 <145 mg/dl 04/30/2022 6:25 PM CDT [facility] CHOL/HDL RATIO 3.31 <4.50 04/30/2022 6:25 PM CDT [facility] LDL CHOLESTEROL 69 <=130 mg/dL 04/30/2022 6:25 PM CDT [facility] VLDL CHOLESTEROL 28 <=30 mg/dL 04/30/2022 6:25 PM CDT [facility] PROVIDER ORDERED STATUS RANDOM 04/30/2022 6:25 PM CDT [facility] Blood BLOOD SPECIMEN / Unknown Venipuncture / Unknown 04/28/2022 1:44 PM CDT 04/28/2022 1:45 PM CDT Shania Montiel MD CHEMISTRY [facility] [address] [place] [address], * FECAL DNA (AKA COLOGUARD) (11/10/2021 1:00 PM CDT) Shania Montiel MD COMMUNICATION ORD * ANTI HCV [[id number]] (02/16/2018 4:20 PM CDT) Pathologist [facility] HEPATITIS C ANTIBODY Non-React alex Non-React alex 02/17/2018 2:48 PM CDT [facility] Comment:Antibodies to HCV no t detected; does not exclude the possibility of exposure to HCV. Blood BLOOD SPECIMEN / Unknown Butterfly / Unknown 02/16/2018 4:20 PM CDT 02/16/2018 4:20 PM CDT Coleman Plata MD SEND OUTS [facility] [address] [place] [address], * HIV 1&2 TODAY (07/21/2015 9:40 AM HOOK PULLER) HIV-1/HIV-2 ANTIBODY Non-Reacti ve Non-Reacti ve 07/21/2015 10:31 AM HOOK PULLER [facility] Blood specimen (specimen) BLOOD SPECIMEN / Unknown Venipuncture / Unknown 07/21/2015 9:40 AM HOOK PULLER 07/21/2015 9:47 AM HOOK PULLER Narrative [facility] - 07/21/2015 10:31 AM HOOK PULLER HIV-1 p24 and HIV-1/HIV-2 Ab not detected Kait Morales DO SEND OUTS [facility] [address] [place] [address], * CINDER DUMP CRANE OPERATOR THIN PREP PAP SCREEN IMAGED (08/17/2012 4:02 PM HOOK PULLER) Pathologist [facility] CYTOLOGY CYTOPATHOLOGY REPORT [facility] Status: Final Status ?[id number] CLINICAL INFORMATION Last Date of LMP ? :07/03/2012 Last Pap Date ?:02/01/2011 Last Pap Result ?:NIL ABN [place]/Bx Past 5 YRS :None Hormone Usage ?:BCP/OCP/Patch/R ing Menstrual Status ? :Regular Periods [place]/Bx done today ? :No Additional Information :None [...] COLLECTED:08/17/12 ? ACCESSIONED: ??08/18/12 ?? SIGNED: ??08/21/12 [facility] PAP [place] CODE NIL [facility] Tissue specimen (specimen) (Cervical/Vagina l) 08/17/2012 4:02 PM HOOK PULLER 08/17/2012 4:00 PM HOOK PULLER Coleman Plata MD PATHOLOGY/CYTOLOGY [facility] INTERNAL ZIP [id number] [place] [address] from Last 3 Months or Most Recently [...] Urine earlier this year (per report from [facility], not available in CareEverywhere), 04/19/18 [...] 8:01 PM 07/15/2012 6:55 PM Care Teams Ski Instructor Relationship Specialty Start Date End Date Barbara Valentin DO [address] [place] [address] PCP - General Family Practice 11/15/22 Julio Ibrahim MD [address] [place] [address] Surgery - Orthopedics 02/01/11 Chuy Doss MD [address] [place] [address] Surgery - Vascular 02/01/11 Markel Strong MD [address] [place] [address] Provider Family Practice 08/08/20 Nikolai Ibarra MD [address] [place] [address] Endocrinology 09/07/22 [facility] [address] [place] [address] 04/07/24 Suad Ng/ Med[employer] CM Sandwich And Drink Cart Operator 07/14/17 [facility] [place] [facility] Nurse 07/01/17 [facility] F[employer] [employer] Services Home Health Aide 07/14/17 [facility] Laborer [facility]/ Ally Christianson [facility] [place] [address] Sandwich And Drink Cart Operator 07/07/17
== END 2024-05-04 00:06 | disposition home or self-care (01) ==
LOC: ED 23:36
PROVIDERS: Emergency Provider Family Medicine; PCP Family Medicine
DX: E10.649 Type 1 diabetes mellitus with hypoglycemia without coma (principal)
CPT/HCPCS: 11042; 82962; 99283; 99284

== ENCOUNTER 2024-05-10 15:19 | Outpatient (CLI) | payer OTHER, SELFPAY ==
--- OUTSIDE RECORDS SUMMARY | 2024-05-10 15:22 | XMS_ITS | Encounter Summary ---
Author Organization [facility] Address [address] [place] [address] Care Team Providers Care Industrial Automation Engineer Name Role Phone Brabara Valentin DO Primary Care Provider [phone] Encounter Details Date Type Department Care Team (Late st Contact Info) Description 05/04/2024 Telephone [facility] [place] [address] [place] [address] Reina Caruso, RN [address] [place] [address] Social History Tobacco Use Types [...] [facility] [address] [place] [address] Gabriel Hicks MD [address] [facility] [address] [phone] Chronic kidney disease, stage 4 (severe) (HCC) documented as of this encounter Visit Diagnoses Not on filedocumented in this encounter Care Teams Industrial Automation Engineer Relationship Specialty Start Date End Date Barbara Valentin DO [address] [place] [address] PCP - General Family Medicine 09/22/23 documented as of this encounter
--- OUTSIDE RECORDS SUMMARY | 2024-05-10 15:22 | XMS_ITS | Encounter Summary ---
Author Organization [facility] Address [address] [place] [address] Care Team Providers Care Manager Med Surg Name Role Phone Barbara Valentin DO Primary Care Provider [phone] Encounter Details Date Type Department Care Team (Late st Contact Info) Description 09/22/2023 Documentation Only [facility] [place] [address] [place] [address] No, Pcp Social History Tobacco [...] [facility] [address] [place] [address] Gabriel Hicks MD [address] [place] [address] Chronic kidney disease, stage 4 (severe) (HCC) documented as of this encounter Visit Diagnoses Not on filedocumented in this encounter Care Teams Manager Med Surg Relationship Specialty Start Date End Date Barbara Valent[place] [address] PCP - General Family Medicine 09/22/23 documented as of this encounter
--- OUTSIDE RECORDS SUMMARY | 2024-05-10 15:22 | XMS_ITS | Clinical Summary ---
Author Organization [facility] Address [address] [facility] [place] [address] Phone Care Team Providers Care Strip Cutting Machine Operator Name Role Phone Barbara Valentin DO Primary Care Provider [phone] Allergies Active Allergy Reactions Criticality Noted Date [...] One Pack) 3 MG/DOSE powder Inhale 1 [place] into affected nostril(s) each time if needed [...] Team Description 05/04/2024 Telephone [facility] [place] [address] [facility] [address] [place] [address] Reina Caruso RN from Last [...] [place] [address] Gabriel Hicks MD [address] [place] [address] Chronic kidney disease, stage 4 (severe) [...] to complete this topic [place] [facility] [id number]) [place] [phone] Care Teams Strip Cutting Machine Operator Relationship Specialty Start Date End Date Barbara Valent[place] [address] PCP - General Family Medicine 09/22/23
--- OUTSIDE RECORDS SUMMARY | 2024-05-10 15:22 | XMS_ITS | Encounter Summary ---
Author Organization [facility] Address [address] [place] [address] Care Team Providers Care Casino Surveillance Officer Name Role Phone Barbara Valentin DO Primary Care Provider Encounter Details Date Type Department Care Team (Late st Contact Info) Description 02/01/2024 Telephone [facility] [place] [address] [place] [address] Gabriel Hicks MD [address] [place] [address] Social History Tobacco Use Types [...] [facility] [address] [place] [address] Gabriel Hicks MD [address] [facility] [address] [address] Chronic kidney disease, stage 4 (severe) (HCC) documented as of this encounter Visit Diagnoses Not on filedocumented in this encounter Care Teams Casino Surveillance Officer Relationship Specialty Start Date End Date Barbara Valentin DO [address] [place] [address] PCP - General Family Medicine 09/22/23 documented as of this encounter
--- OUTSIDE RECORDS SUMMARY | 2024-05-10 15:22 | XMS_ITS | Clinical Summary ---
Author Organization [employer] [facility] Address [place], [place] [address] Care Team Providers Care Boom Man Name Role Phone Julio Ibrahim MD Unavailable Chuy Doss MD Unavailable [phone] Markel Strong MD Unavailable Nikolai Ibarra MD Unavailable Barbara Valentin DO Primary Care Provider [facility] Un[facility] [phone] Allergies Active Allergy Reactions Criticality Noted Date [...] nasal solution (FLONASE)Indicatio ns:Nasal congestion Inhale 1 Ridgeway into affected nostril(s) once daily. Inhale 1 [place]way in the nostril(s) once daily. 16 g [...] continuous glucose monitor READER (FreeStyle Elli 2 Marina)Indications :Type 1 diabetes mellitus with other specified complication (HC) To be used to read blood sugars per qa analyst's directions. 1 Each 3 Active blood-glucose meterIndications:T [...] be used to read blood sugars per qa analyst's directions. 6 Each 3 4 Active polyethylene [...] hronic, continuous use of opioids Inhale 1 Ridgeway into affected nostril(s) each time if needed [...] mellitus at risk of hypoglycemia Inhale 1 [place]way into affected nostril(s) each time if needed [...] mellitus at risk of hypoglycemia Inhale 1 Ridgeway into affected nostril(s) each time if needed [...] agreement signed - 10/07/23 10/07/2023 Overview (10/07/2023): [facility] Noem[facility] Sonny .................... 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) use of anticoagulants 11/27/2013 12/28/2013 Anticoagulation [...] Encounters Date Type Department Care Team Description 05/10/2024 Telephone [facility] [address] [place] [address] Sir Valentini Patricia, DO Results 05/08/2024 Telephone [facility] [address] [place] [address] Barbie Barbara Patricia, DO Results 05/07/2024 12:00 PM CURATORIAL ASSISTANT [facility] [address] [place] [address] Malou Griffith LPN HISTORICAL SOCIETY DIRECTOR - HOME VISIT 05/07/2024 10:10 AM CURATORIAL ASSISTANT Phone Office Visit [facility] [address] [place] [address] Nikolai Ibarra MD Consult (Phone visit) 05/07/2024 Travel 05/07/2024 Telephone [facility] [address] [place] [address] Shaqra, Barbara Patricia, DO Blood Sugar 05/04/2024 3:00 PM CDT Office Visit [facility] [address] [place] [address] Shaqra, Barbara Patricia, DO ER Follow up (Hypoglycemia ) 05/04/2024 12:15 PM CDT [facility] [address] [place] [address] Geneva Sanchez RN SN - HOME VISIT 05/04/2024 Travel 04/30/2024 10:00 AM CDT [facility] [address] [place] [address] Geneva Sanchez RN SN - HOME VISIT 04/27/2024 10:30 AM CDT [facility] [address] [place] [address] Geneva Sanchez RN SN - HOME VISIT 04/27/2024 Telephone [facility] [address] [place] [address] Barbie Barbara Patricia, DO 04/24/2024 9:00 AM CDT [facility] [address] [place] [address] Geneva Sanchez RN SN - HOME VISIT 04/21/2024 1:00 PM CDT [facility] [address] [place] [phone] Geneva Sanchez RN SN - HOME VISIT 04/21/2024 Telephone [facility] [address] [place] [address] Barbara Valentin, DO Home Care (Update) 04/20/2024 Telephone [facility] [address] [place] [phone] Romina Pro RN Failed Appointment 04/20/[address] [facility] [address] [place] [address] Toshia Hooks NP Refill Request 04/20/2024 Telephone [facility] [address] [place] [address] Barbara Valentin, DO Diabetes (/) 04/17/2024 9:00 AM CDT [facility] [address] [place] [phone] Geneva Sanchez RN SN - HOME VISIT 04/17/2024 [facility]phone [facility] [address] [place] [address] Geneva Sanchez RN Home Care 04/16/2024 Telephone [facility] [address] [place] [address] Barbara Valentin, Results 04/16/2024 Patient Outreach [facility] Care Management - Care Management Navigation/[facility] [address] [place], [place] [phone] Aide Rolon [facility] [facility] (Care Guide Breast Cancer Screening outreach/) 04/13/2024 11:00 AM CDT Office Visit [facility] [address] [place] [address] Barbara Valentin, Follow Up (Diabetes, home care, medications) 04/13/2024 1:20 AM CDT [facility] [address] [place] [phone] Coleman Rock RN SN - WOUND/OSTOMY CHART CONSULT 04/13/2024 Refill [facility] [address] [place] [address] Barbara Valentin Patricia, DO Refill Request (need changes/clarificatio n) 04/13/2024 Travel 04/12/2024 9:00 AM CDT [facility] [address] [place] [address] Geneva Sanchez, RN SN - OASIS START OF CARE 04/12/2024 Orders Only [facility] [address] [place] [address] Barbara Valentin Patricia, DO <No scans attached> 04/12/2024 Telephone [facility] [address] [place] [phone] Geneva Sanchez, client operations manager 04/12/2024 Patient Outreach [facility] Management - Care Management Navigation/[facility] [address] [place] [address] [facility] (Care Guide Breast Cancer Screening outreach/) 04/12/2024 Plan of Care Documentation [facility] [address] [place] [address] 04/09/2024 Patient Outreach [facility] - Care Management Navigation/[facility] [address] [place] [address] [facility] (Care Guide Breast Cancer Screening outreach/) 04/09/2024 [facility] [address] [place] [address] Elvi Meyers RN CARE COORDINATION 04/06/2024 11:25 AM CDT Office Visit [facility] [address] [place] [address] Barbara Valentin Patricia, DO Hospital F/U (Hypoglycemia - ER/hospital 03/29, 04/06 ) 04/06/2024 Orders Only [facility] [address] [facility] [address] [place] [address] Nikolai Ibarra MD <No scans attached> 04/06/2024 Travel 04/04/2024 Refill [facility] [address] [place] [address] Saúlqra Barbara Patricia, DO Refill Request (Amlodipine, Omeprazole) 03/27/2024 Telephone [facility] [address] [facility] [place] [address] Saúlqra Barbara Patricia, DO Questions 03/16/[address] [facility] [address] [place] [address] Toshia Hooks NP Refill Request 03/14/2024 10:30 AM CDT Home Care Visit [address] [address] Geneva Sanchez RN SN - OASIS DISCHARGE 03/12/2024 Refill [facility] [address] [place] [address] Barbie Barbara Patricia, DO Refill Request (Pregabalin, Fluoxetine, Duloxetine) 03/06/2024 10:00 AM CDT Home Care Visit [address] [address] Geneva Sanchez, LOS SN - HOME VISIT 03/06/2024 9:15 AM CDT Home Care Visit [address] [address] Alex Contreras CURRICULUM ASSISTANT - HOME VISIT 03/03/2024 Home Care Visit [address] [address] Nitza Riojas LISW CARE COORDINATION 02/28/2024 2:00 PM CDT Home Care Visit [address] [phone] Shania Elaine, LOS SN - HOME VISIT 02/28/2024 10:45 AM CDT Home Care Visit [address] [phone] Fabiola Mathis CURRICULUM ASSISTANT - HOME VISIT 02/25/2024 [facility] [address] [place] [address], [place] [address] Nitza Riojas LISW CARE COORDINATION 02/22/2024 3:00 PM CDT [facility] [address] [place] [phone] Trini Hitchcock, LOS SN - HOME VISIT 02/22/2024 [facility] [address] [place] [phone] Dar Phillips, OT OT - DISCIPLINE DISCHARGE 02/21/2024 9:45 AM CDT [facility] [address] [place] [phone] Alex Contreras CURRICULUM ASSISTANT - HOME VISIT 02/20/2024 [facility] [address] [place] [phone] Nitza Riojas LISW MANAGER PERFORMANCE IMPROVEMENT - INITIAL ASSESSMENT 02/16/2024 Refill [facility] [address] [place] [address] Toshia Hooks NP Refill Request (oxyCODONE (ROXICODONE) 5 mg immediate release tablet ) 02/15/2024 3:45 PM CDT [facility] [address] [place] [phone] Coleman Greene, PT PT - DISCIPLINE DISCHARGE 02/15/2024 11:00 AM CDT [facility] [address] [place] [phone] Geneva Sanchez, LOS SN - HOME VISIT 02/14/2024 12:00 PM CDT [facility] [address] [place] [phone] Joi Moreno COTA OT - HOME VISIT 02/14/2024 8:15 AM CDT [facility] [address] [place] [address] Fabiola Mathis CURRICULUM ASSISTANT - HOME VISIT 02/10/2024 3:30 PM CDT [facility] [address] [place] [address] Joi Moreno COTA OT - HOME VISIT 02/10/2024 [facility] [address] [place] [address] Nitza Riojas LISW MANAGER PERFORMANCE IMPROVEMENT - CASE COMMUNICATION 02/09/2024 Refill [facility] [address] [place] [address] Barbara Valentin DO Refill Request (Duloxetine) 02/08/2024 3:00 PM CDT [facility] [address] [place] [address] Veda Resendiz, RN SN - WOUND/OSTOMY CHART CONSULT 02/08/2024 9:00 AM CDT [facility] [address] [place] [address] Geneva Sanchez, LOS SN - HOME VISIT 02/08/2024 Telephone [facility] [address] [place] [address] Barbara Valentin DO Pharmacist Medication Management (MEDICATION CHANGE) 02/08/2024 Telephone [facility] [address], [place] [address] Geneva Sanchez, metallurgy laboratory technician List Update from Last 3 Months Immunizations Name Administration Dates Next Due AMB Influenza, IIV3 (Age >=3 years)(Flu Clinic Only) 05/17/2013,05/06/2010 COVID-19 VACCINE SPIKEVAX (M ODERNA 50MCG/0.5ML) 12YO+ PFS 04/06/2024 COVID-19 vaccine (Pfizer-Bio NTech 30mcg/0.3mL) 12YO+ BIVALENT PF, MDV 04/28/2022 COVID-19 vaccine ([address] NTech 30mcg/0.3mL) PF, MDV 06/23/2021 Hepatitis B [...] Comments Blood Pressure 148/70 05/07/2024 12:18 PM CURATORIAL ASSISTANT Pulse 90 05/07/2024 12:18 PM CURATORIAL ASSISTANT Temperature 37.1 ??C (98.7 ??F) 05/07/2024 1 2:18 PM CURATORIAL ASSISTANT Respiratory Rate 16 05/07/2024 12:1 8 PM CURATORIAL ASSISTANT Oxygen Saturation 93% 05/07/2024 12: 18 PM CURATORIAL ASSISTANT Inhaled Oxygen Concentration - - Weight 96.1 kg (211 lb 12.8 oz) 024 12:18 PM CURATORIAL ASSISTANT Height 152.4 cm (5') 01/12/2024 9:27 PM CDT Body Mass Index 41.36 01/12/2024 9:27 PM CDT Plan of Treatment Upcoming Encounters Date Type Department Care Team (Late st Contact Info) Description 05/14/2024 2:00 PM CURATORIAL ASSISTANT [facility] [address] [place] [address] Geneva Sanchez, LOS 05/21/2024 4:00 AM CURATORIAL ASSISTANT [facility] [address] [place] [address] Geneva Sanchez, LOS 05/28/2024 4:00 AM CURATORIAL ASSISTANT [facility] [address] [place] [phone] Geneva Sanchez RN 06/04/2024 4:00 AM CURATORIAL ASSISTANT [facility]ointment [facility] [address] [place] [address] Geneva Sanchez, LOS 06/15/2024 3:00 PM CURATORIAL ASSISTANT Office Visit [facility] [address] [place] [address] Barbara Valentin, DO [address] [place] [address] 09/07/2024 3:10 PM CURATORIAL ASSISTANT Phone Office Visit [facility] [address] [place] [address] Nikolai Ibarra MD [address] [place] [address] Health Maintenance Due Date Last Done Comments Zoster (shingles) series for age 50+ (1 of 2) 12/19/2011 Pap test for age 21-65 08/17/2015 08/17/2012, 2010 Tetanus booster 08/25/2020 08/25/2010, 12/04, 12/30/2002 Mammogram for age 45-75 04/28/2023 04/28/20, 03/02/2018, 07/26/2013, Additional history exists Influenza for age 50-64 03/04/2024 04/28/20, 04/28/2021, 03/18/2020, Additional history exists Fecal testing sDNA-FIT (Ludlow guard) for age 45-75 11/10/2024 11/10/2021 Depression [...] history exists Medical Devices Implanted Type Area Conductor Sleeping Car Device Identifier Shelf Expiration Date Model / Serial / Lot [id number] loderm 2x12mm [[id number]] Implanted:Qty: 1 on 08/08/2008 at [facility] Explanted:at [facility] (Quantity not on file) [facility] ModaMi [id number]# / [id number] / Stem Compnt Primary 8mm Mini - [id number] Implanted:Qty: 1 on 03/17/2011 at [facility] Right: Shoulder BIOMET [id number]# / / [id number] Head Hum Bio-Mod [id number] - [id number] Implanted:Qty: 1 on 03/17/2011 at [facility] Right: Shoulder BIOMET [id number]# / / [id number] Base Glenoid Hybrid 4mm Sm - [id number] Implanted:Qty: 1 on 03/17/2011 at [facility] Right: Shoulder BIOMET [id number]# / / [id number] Cmnt 1/2 Dosehowmedica - [id number] Implanted:Qty: 1 on 03/17/2011 at [facility] Right: Shoulder [employer] [id number] 0# / / [id number] Post Glenoid Hybrid Regenerex - [id number] Implanted:Qty: 1 on 03/17/2011 at [facility] Right: Shoulder BIOMET [id number] # / / [id number] Head Humeral 44x15 Co Cr Biomodular - [id number] Implanted:Qty: 1 on 07/12/2012 at [facility] Left: Shoulder BIOMET 888556# / / [id number] Shoulder Stem Implanted:Qty: 1 on 07/12/2012 at [facility] Left: Shoulder [id number] / / [id number] Description:SHOULDER STEM Cmnt Bone 1/2 Dosehowmedica - [id number] Implanted:Qty: 1 on 07/12/2012 at [facility] Left: Shoulder [employer] 6188--01 0# / / [id number] Post Glenoid Hybrid Regenerex - [id number] Implanted:Qty: 1 on 07/12/2012 at [facility] Left: Shoulder BIOMET [id number] # / / [id number] Base Glenoid Hybrid 4mm Sm - [id number] Implanted:Qty: 1 on 07/12/2012 at [facility] Left: Shoulder BIOMET [id number]# / / [id number] Procedures Procedure Name Priority Date/Time Associated Diagnosis Comments PRO-BNP Routine 05/04/2024 4:09 PM CDT Heart failure with preserved ejection fraction, borderline, class III (HC) BASIC METABOLIC PANEL Routine 05/04/2024 4:09 PM [...] HIV 1/2 Add On 07/21/2015 9:40 AM CURATORIAL ASSISTANT HARVEST FIELD TICKETER THIN PREP PAP SCREEN IMAGED Routine 08/17/2012 4:02 PM CURATORIAL ASSISTANT Screening for malignant neoplasm of the cervix from Last 3 Months or Most Recently Relevant to Health Maintenance Results * (ABNORMAL) PRO-BNP (05/04/2024 4:09 PM CDT) NT PROBNP 362(H) <125 pg/mL [facility] Blood BLOOD SPECIMEN / Unknown 05/04/2024 4:09 PM CDT 05/04/2024 4:09 PM CDT Barbara Valentin DO SEND OUTS Performing Organization Address City/[facility]/ZIP Co de Phone Number [facility] [address] [place] [address], [facility] [address] [place] [address] * (ABNORMAL) BASIC METABOLIC PANEL (05/04/2024 4:09 PM CDT) Only the most recent of2 resultswithin the time period is included. Pathologist [facility] GLUCOSE 83 65 - 99 mg/dL [facility] Comment: ? Fasting reference interval UREA NITROGEN (BUN) 33(H) 7 - 25 mg/dL [facility] CREATININE 2.20(H) 0.50 - 1.05 mg/dL [facility] EGFR 25(L) > OR = 60 mL/min/1.7 3m2 [facility] BUN/CREATININE RATIO 15 6 - 22 (calc) [facility] SODIUM 141 135 - 146 mmol/L [facility] POTASSIUM 4.4 3.5 - 5.3 mmol/L [facility] CHLORIDE 99 98 - 110 mmol/L [facility] CARBON DIOXIDE 31 20 - 32 mmol/L [facility] ELECTROLYTE BALANCE 11 7 - 17 mmol/L (calc) [facility] CALCIUM 8.9 8.6 - 10.4 mg/dL [facility] Blood BLOOD SPECIMEN / Unknown 05/04/2024 4:09 PM CDT 05/04/2024 4:09 PM CDT Barbara Valentin DO CHEMISTRY Performing Organization Address City/[facility]/ZIP Co de Phone Number [facility] [address] [place] [address], [facility] [address] [place] [address] * XR MAMMO BILAT SCREENING (04/28/2022 2:04 [...] health care provider. XR MAMMO BILAT SCREENING [[id number]] CLINICAL HISTORY: ??This is an asymptomatic 61 y.o. patient. INDICATION FOR EXAM: Mammogram Screening. TECHNIQUE: CC & MLO views were obtained. ??This study was evaluated with the assistance of Computer-Aided Detection. COMPARISON FILM: Yes 03/02/18 [employer] [facility] 07/26/13 [employer] FINDINGS: ??The breasts are extremely dense, which lowers the sensitivity of mammography. There are no dominant masses, suspicious micro calcifications or areas of architectural distortion. Shania Montiel MD MAMMO * LIPID PANEL W REFLEX MEASURED LDL (04/28/2022 1:44 PM CDT) CHOLESTEROL,TOTAL 139 100 - 199 mg/dL 04/30/2022 6:25 PM CDT [facility] TRIGLYCERIDES 141 <150 mg/dL 04/30/2022 6:25 PM CDT [facility] HDL CHOLESTEROL 42 >40 mg/dL 6:25 PM CDT [facility] NON-HDL CHOLESTEROL 97 <145 mg/dl 04/30/2022 6:25 PM CDT [facility] CHOL/HDL RATIO 3.31 <4.50 04/30/2022 6:25 PM CDT [facility] LDL CHOLESTEROL 69 <=130 mg/dL 04/30/2022 6:25 PM CDT [facility] VLDL CHOLESTEROL 28 <=30 mg/dL 04/30/2022 6:25 PM CDT [facility] PROVIDER ORDERED STATUS RANDOM 04/30/2022 6:25 PM CDT [facility] Blood BLOOD SPECIMEN / Unknown Venipuncture / Unknown 04/28/2022 1:44 PM CDT 04/28/2022 1:45 PM CDT Shania Montiel MD CHEMISTRY Performing Organization Address City/[facility]/ZIP Co de Phone Number [facility] [address] [place] [address], * FECAL DNA (AKA COLOGUARD) (11/10/2021 1:00 PM CDT) Shania Montiel MD COMMUNICATION ORD * ANTI HCV [16423.2] (02/16/2018 4:20 PM CDT) [facility] HEPATITIS C ANTIBODY Non-React alex Non-React alex 02/17/2018 2:48 PM CDT [facility] Comment:Antibodies to HCV no t detected; does not exclude the possibility of exposure to HCV. Blood BLOOD SPECIMEN / Unknown Butterfly / Unknown 02/16/2018 4:20 PM CDT 02/16/2018 4:20 PM CDT Coleman Plata MD SEND OUTS [facility] [address] [place] [address], * HIV 1&2 TODAY (07/21/2015 9:40 AM CURATORIAL ASSISTANT) [facility] HIV-1/HIV-2 ANTIBODY Non-Reacti ve Non-Reacti ve 07/21/2015 10:31 AM CURATORIAL ASSISTANT [facility] Blood specimen (specimen) BLOOD SPECIMEN / Unknown Venipuncture / Unknown 07/21/2015 9:40 AM CURATORIAL ASSISTANT 07/21/2015 9:47 AM CURATORIAL ASSISTANT Narrative [facility] - 07/21/2015 10:31 AM CURATORIAL ASSISTANT HIV-1 p24 and HIV-1/HIV-2 Ab not detected Kait Morales DO SEND OUTS [facility] [address] [place] [address], * HARVEST FIELD TICKETER THIN PREP PAP SCREEN IMAGED (08/17/2012 4:02 PM CURATORIAL ASSISTANT) Pathologist [facility] CYTOLOGY CYTOPATHOLOGY REPORT [facility] [employer] Status: Final Status ?[id number] CLINICAL INFORMATION Last Date of LMP ? :07/03/2012 Last Pap Date ?:02/01/2011 Last Pap Result ?:NIL ABN Odell/Bx Past 5 YRS :None Hormone Usage ?:BCP/OCP/Patch/R ing Menstrual Status ? :Regular Periods Odell/Bx done today ? :No Additional Information :None [...] ??08/18/12 ?? SIGNED: ??08/21/12 [facility] PAP B[place]DA CODE NIL [facility] Tissue specimen (specimen) (Cervical/Vagina l) 08/17/2012 4:02 PM CURATORIAL ASSISTANT 08/17/2012 4:00 PM CURATORIAL ASSISTANT Coleman Plata MD PATHOLOGY/CYTOLOGY [facility] INTERNAL ZIP [phone] [place] [address] from Last 3 Months or Most Recently [...] earlier this year (per report from [facility], not available in CareEverywhere), 04/19/18 L cheek abscess exclusions for contact precaution discontinuation (if > 12 months since positive culture): resides in acute/roasterman care, receiving hemodialysis, has chronic open wounds/skin [...] 8:01 PM 07/15/2012 6:55 PM Care Teams Boom Man Relationship Specialty Start Date End Date BarbieBarbara DO Patricia [address] [place] [address] PCP - General Family Practice 11/15/22 Julio Ibrahim MD [address] [place] [address] Surgery - Orthopedics 02/01/11 Chuy Doss MD [address] [place] [address] Surgery - Vascular 02/01/11 Markel Strong MD [address] [place] [address] Provider Family Practice 08/08/20 Nikolai Ibarra MD [address] [facility] [address] [place] [address] Endocrinology 09/07/22 [facility] [place] [address] [place] [address] 04/07/24 Suad Ng/ [employer] CM Rail Walker 07/14/17 [facility] Home Health Nurse 07/01/17 [facility] PROTECTION ENGINEER Services Home Health Aide 07/14/17 [facility] Shutdown Planner/ Ally Morillom [address] [place] [address] Rail Walker 07/07/17
== END 2024-05-10 15:20 | disposition home or self-care (01) ==
LOC: WOUND 15:19
PROVIDERS: PCP Family Medicine; Visit Provider Nurse Practitioner Family
DX: E11.621 Type 2 diabetes mellitus with foot ulcer (principal); L97.422 Non-pressure chronic ulcer of left heel and midfoot with fat layer exposed; M14.672 Charcot's joint, left ankle and foot; Z79.4 Long term (current) use of insulin
CPT/HCPCS: 11042; 87070; 87186

== ENCOUNTER 2024-05-17 15:12 | Outpatient (CLI) | payer OTHER, SELFPAY ==
--- OUTSIDE RECORDS SUMMARY | 2024-05-17 15:26 | XMS_ITS | Encounter Summary ---
Author Organization [facility] Address [address] [place] [address] Care Team Providers Care Trash Collector Supervisor Name Role Phone Barbara Valentin DO Primary Care Provider [phone] Encounter Details Date Type Department Care Team (Late st Contact Info) Description 02/01/2024 Telephone [facility] [address] [place] [address] Gabriel Hicks MD [address] [place] [address] Social History Tobacco Use Types [...] on filedocumented in this encounter Care Teams Trash Collector Supervisor Relationship Specialty Start Date End Date Barbara Valentin DO [address] [place] [address] PCP - General Family Medicine 09/22/23 documented as of this encounter
--- OUTSIDE RECORDS SUMMARY | 2024-05-17 15:26 | XMS_ITS | Clinical Summary ---
Author Organization [facility] [place] [place] Address [address] [facility] [place] [address] Phone Care Team Providers Care Public Policy Coordinator Name Role Phone Barbara Valentin DO Primary Care Provider [phone] Allergies Active Allergy Reactions Criticality Noted Date [...] One Pack) 3 MG/DOSE powder Inhale 1 Cocoa into affected nostril(s) each time if needed [...] Encounters Date Type Department Care Team Description 05/12/2024 Orders Only [facility] [place] [address] [place] [address] Gabriel Hicks MD Chronic kidney disease, stage 4 (severe) ([facility]) 05/04/2024 Telephone [facility] [place] [address] [place] [address] Reina Caruso RN from Last [...] to complete this topic Insurance MEDICA DUAL [facility] D-SNP ([id number]) [place] [id number] Care Teams Public Policy Coordinator Relationship Specialty Start Date End Date Barbara Valentin DO [address] [place] [address] PCP - General Family Medicine 09/22/23
--- OUTSIDE RECORDS SUMMARY | 2024-05-17 15:26 | XMS_ITS | Encounter Summary ---
Author Organization [facility] Address [address] [place] [address] Care Team Providers Care High [employer] Math Tutor Name Role Phone Barbara Valentin DO Primary Care Provider [phone] Encounter Details Date Type Department Care Team (Late st Contact Info) Description 05/12/2024 Orders Only [facility] [place] [address] Gabriel Hicks MD [address] [place] [address] Chronic kidney disease, stage 4 (severe) (HCC) Social History Tobacco Use Types Packs/Day Years [...] Diagnosis Chronic kidney disease, stage 4 (severe) (HCC) documented in this encounter Care Teams High School Math Tutor Relationship Specialty Start Date End Date Barbara Valentin DO [address] [facility] [address] PCP - General Family Medicine 09/22/23 documented as of this encounter
--- OUTSIDE RECORDS SUMMARY | 2024-05-17 15:26 | XMS_ITS | Encounter Summary ---
Author Organization [facility] [place] Address [address] [place] [address] Care Team Providers Care Seamer Operator Name Role Phone Barbara Valentin DO Primary Care Provider [phone] Encounter Details Date Type Department Care Team (Late st Contact Info) Description 05/04/2024 Telephone [facility] [place] [address] [place] [address] Reina Caruso, RN [address] [place] [address] Social History Tobacco Use [...] on filedocumented in this encounter Care Teams Seamer Operator Relationship Specialty Start Date End Date Barbara Valentin DO [address] [place] [address] PCP - General Family Medicine 09/22/23 documented as of this encounter
--- OUTSIDE RECORDS SUMMARY | 2024-05-17 15:26 | XMS_ITS | Encounter Summary ---
Author Organization [facility] [place] Address [address] [place] [address] Care Team Providers Care License Examiner Name Role Phone Barbara Valentin DO Primary Care Provider [phone] Encounter Details Date Type Department Care Team (Late st Contact Info) Description 09/22/2023 Documentation Only [facility] [place] [address] [facility] [address] [place] [address] No, Pcp Social History Tobacco [...] on filedocumented in this encounter Care Teams License Examiner Relationship Specialty Start Date End Date Barbara Valentin DO [address] [place] [address] PCP - General Family Medicine 09/22/23 documented as of this encounter
--- OUTSIDE RECORDS SUMMARY | 2024-05-17 15:27 | XMS_ITS | Clinical Summary ---
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 Inhale 1 [place] in the nostril(s) once daily. 16 g [...] continuous glucose monitor READER (FreeStyle Elli 2 Zimmerman)Indications :Type 1 diabetes mellitus with other specified complication (HC) To be used to read blood sugars per viscosity inspector's directions. 1 Each 3 Active blood-glucose meterIndications:T [...] be used to read blood sugars per viscosity inspector's directions. 6 Each 3 4 Active polyethylene [...] hronic, continuous use of opioids Inhale 1 [place] into affected nostril(s) each time if needed [...] mellitus at risk of hypoglycemia Inhale 1 [place] into affected nostril(s) each time if needed [...] 60 mg/dL. 60 Tablet 3 4 Active blood sugar diagnostic (Blood Glucose Test) stripIndications:T ype 1 diabetes mellitus with other specified complication (HC) Test 4 times per day. 400 Each 3 3 04/27/20 24 Discontinu ed(Reorder (E-cancel not sent)) oxyCODONE (ROXICODONE) 5 mg immediate release tabletIndications: Chronic pain syndrome,Neuropath y due to secondary diabetes (HC) Si p.o. B.I.D. / PRN For O.A. pain or Diabetic P.N. Pain ; max: 2 a day. Use dates: 03/22/24-04/20/24 60 Tablet 4 04/20/20 Discontinu ed(Reorder (E-cancel not sent)) Active Problems [...] agreement signed - 10/07/23 10/07/2023 Overview (10/07/2023): [facility] Noem[facility] Dennis .................... 10/07/2023 4:39 PM Type [...] hypoxia which led to extended stay in [facility] care 07/2015- 05/2017 Hospitalized with ketoacidosis 06/2017 [...] post total right knee replacement 01/02/2015 06/10/2017 [facility] (current) use of anticoagulants 11/27/2013 12/28/2013 Anticoagulation [...] Encounters Date Type Department Care Team Description 05/17/2024 Refill [facility] [address] [place] [address] Saúlqra Barbara Patricia, DO Refill Request (Fluoxetine) 05/16/2024 Telephone [facility] [address] [place] [address] Saúlqra Barbara Patricia, DO 05/14/2024 2:00 PM SCHOOL LUNCH MANAGER [facility] [address] [place] [address] Geneva Sanchez, RN SN - HOME VISIT 05/14/2024 Telephone [facility] [address] [place] [address] Saúlqra Barbara Patricia, DO return call 05/14/2024 [facility]phone [facility] [address] [place] [address] Geneva Sanchez, legal administrative secretary 05/14/2024 Orders Only [facility] [address] [facility] [address] Barbie Barbara Patricia, DO Lab (Home care) 05/10/2024 Telephone [facility] [address] [place] [address] Shaqra, Barbara Patricia, DO Results 05/08/2024 Telephone [facility] [address] [place] [address] Shaqra, Barbara Patricia, DO Results 05/07/2024 12:00 PM SCHOOL LUNCH MANAGER [facility] [address] [place] [address] Malou Griffith LPN BLANKMAKER - HOME VISIT 05/07/2024 10:10 AM SCHOOL LUNCH MANAGER Phone Office Visit [facility] [address] [facility] [address] [place] [address] Nikolai Ibarra MD Consult (Phone visit) 05/07/2024 Travel 05/07/2024 Telephone [facility] [address] [place] [address] Barbie Barbara Patricia, DO Blood Sugar 05/04/2024 3:00 PM CDT Office Visit [facility] [address] [place] [address] Saúlqra Barbara Patricia, DO ER Follow up (Hypoglycemia ) 05/04/2024 12:15 PM CDT [facility] [address] [place] [address] Geneva Sanchez, RN SN - HOME VISIT 05/04/2024 Travel 04/30/2024 10:00 AM CDT [facility] [address] [place] [address] Geneva Sanchez, RN SN - HOME VISIT 04/27/2024 10:30 AM CDT [facility] [address] [place] [address] Geneva Sanchez RN SN - HOME VISIT 04/27/2024 Telephone [facility] [address] [place] [address] Barbara Valentin, DO 04/24/2024 9:00 AM CDT [facility] [address] [place] [address] Geneva Sanchez RN SN - HOME VISIT 04/21/2024 1:00 PM CDT [facility] [address] [place] [address] Geneva Sanchez RN SN - HOME VISIT 04/21/2024 Telephone [facility] [address] [place] [address] Barbara Valentin, DO Home Care (Update) 04/20/2024 Telephone [facility] [address] [facility] [address] [place] [address] Romina Pro RN Failed Appointment 04/20/2024 Refill [facility] [address] [facility] [address] [place] [address] Toshia Hooks NP Refill Request 04/20/2024 Telephone [facility] [address] [place] [address] Barbara Valentin, DO Diabetes (/) 04/17/2024 9:00 AM CDT [facility] [address] [place] [address] Geneva Sanchez RN SN - HOME VISIT 04/17/2024 Telephone [facility] [address] [place] [address] Geneva Sanchez, legal administrative secretary 04/16/2024 Telephone [facility] [address] [place] [address] Barbara Valentin, DO Results 04/16/2024 Patient Outreach [facility] Care Management - Care Management Navigation/[facility] [address] [place] [address] Aide Rolon [facility] (Care Guide Breast Cancer Screening outreach/) 04/13/2024 11:00 AM CDT Office Visit [facility] [address] [place] [address] Barbara Valentin, Follow Up (Diabetes, home care, medications) 04/13/2024 1:20 AM CDT [facility] [address] [place] [address] Coleman Rock RN SN - WOUND/OSTOMY CHART CONSULT 04/13/2024 Refill [facility] [address] [place] [address] Barbara Valentin, Refill Request (need changes/clarificati on) 04/13/2024 Travel 04/12/2024 9:00 AM CDT [facility] [address] [place] [address] Geneva Sanchez, RN SN - OASIS START OF CARE 04/12/2024 Orders Only [facility] [address] [place] [address] Barbara Valentin, <No scans attached> 04/12/2024 Telephone [facility] [address] [place] [address] Geneva Sanchez, legal administrative secretary 04/12/2024 Patient Outreach [facility] Care Management - Care Management Navigation/[facility] [address] [place] [address] Aide [facility] (Care Guide Breast Cancer Screening outreach/) 04/12/2024 Plan of Care Documentation [facility] [address] [place] [address] 04/09/2024 Patient Outreach [facility] Management - Care Management Navigation/[facility] [address] [place] [address] Aide Rolon [facility] (Care Guide Breast Cancer Screening outreach/) 04/09/2024 [facility] [address] [place] [address] Elvi Meyers, RN CARE COORDINATION 04/06/2024 11:25 AM CDT Office Visit [facility] [address] [place] [address] Shaqra, Barbara Patricia, DO Hospital F/U (Hypoglycemia - ER/hospital 03/29, 04/06 ) 04/06/2024 Orders Only [facility] [address] [place] [address] Nikolai Ibarra MD <No scans attached> 04/06/2024 Travel 04/04/2024 Refill [facility] [address] [place] [address] Shaqra, Barbara Patricia, DO Refill Request (Amlodipine, Omeprazole) 03/27/2024 Telephone [facility] [address] [place] [address] Shaqra, Barbara Patricia, DO Questions 03/16/2024 Refill [facility] [address] [place] [address] Toshia Hooks NP Refill Request 03/14/2024 10:30 AM CDT [facility] [address] [place] [address] Geneva Sanchez RN SN - OASIS DISCHARGE 03/12/2024 Refill [facility] [address] [place] [address] Shaqra, Barbara Patricia, DO Refill Request (Pregabalin, Fluoxetine, Duloxetine) 03/06/2024 10:00 AM CDT [facility] [address] [place] [address] Geneva Sanchez, LOS SN - HOME VISIT 03/06/2024 9:15 AM CDT [facility] [address] [place] [address] Alex Contreras CHILD STUDY TEAM DIRECTOR - HOME VISIT 03/03/2024 [facility] [address] [facility] [place] [address] Nitza Riojas LISW CARE COORDINATION 02/28/2024 2:00 PM CDT [facility] [address] [facility] [place] [address] Shania Elaine, RN SN - HOME VISIT 02/28/2024 10:45 AM CDT [facility] [address] [place] [address], [place] [address] Fabiola Mathis CHILD STUDY TEAM DIRECTOR - HOME VISIT 02/25/2024 [facility] [address] [place] [address], [place] [address] Nitza Riojas LISW CARE COORDINATION 02/22/2024 3:00 PM CDT [facility] [address] [place] [address] Trini Hitchcock RN SN - HOME VISIT 02/22/2024 [facility] [address] [place] [address] Dar Phillips, OT OT - DISCIPLINE DISCHARGE 02/21/2024 9:45 AM CDT [facility] [address] [place] [address] Alex Contreras CHILD STUDY TEAM DIRECTOR - HOME VISIT 02/20/2024 [facility] [address] [place] [address] Nitza Riojas LISW TUBE CARRIER - INITIAL ASSESSMENT 02/16/2024 Refill [facility] [address] [place] [address] Toshia Hooks NP Refill Request (oxyCODONE (ROXICODONE) 5 mg immediate release tablet ) 02/15/2024 3:45 PM CDT [facility] [address] [place] [address] Coleman Greene, PT PT - DISCIPLINE DISCHARGE 02/15/2024 11:00 AM CDT [facility] [address] [place] [address] Geneva Sanchez, RN SN - HOME VISIT from Last 3 Months [...] Sign Reading Time Taken Comments Blood Pressure 128/62 05/14/2024 2:15 PM SCHOOL LUNCH MANAGER Pulse 90 05/14/2024 2:15 PM SCHOOL LUNCH MANAGER Temperature 36.7 ??C (98.1 ??F) 05/14/2024 2:15 PM CS T Respiratory Rate 20 05/14/2024 2:15 PM SCHOOL LUNCH MANAGER Oxygen Saturation 93% 05/14/2024 2:15 PM SCHOOL LUNCH MANAGER Inhaled Oxygen Concentration - - Weight 87.7 kg (193 lb 6.4 oz) 05/14/2024 2:15 P M SCHOOL LUNCH MANAGER Height 152.4 cm (5') 01/12/2024 9:27 PM CDT Body Mass Index 37.77 01/12/2024 9:27 PM CDT Plan of Treatment Upcoming Encounters Date Type Department Care Team (Late st Contact Info) Description 05/21/2024 11:00 AM SCHOOL LUNCH MANAGER [facility] [address] [facility] [place] [address] Geneva Sanchez, LOS 05/28/2024 4:00 AM SCHOOL LUNCH MANAGER [facility] [address] [facility] [place] [address] Geneva Sanchez, LOS 06/04/2024 4:00 AM SCHOOL LUNCH MANAGER [facility]ointment [facility] [address] [place] [address] Geneva Sanchez, LOS 06/15/2024 3:00 PM SCHOOL LUNCH MANAGER Office Visit [facility] [address] [place] [address] Barbara Valentin, [address] [place] [address] 09/07/2024 3:10 PM SCHOOL LUNCH MANAGER Phone Office Visit [facility] [address] [facility] [address] [place], [place] [phone] Nikolai Ibarra MD [address] [facility] [address] [facility] [address] [place] [address] Health Maintenance Due Date Last Done Comments Zoster (shingles) series for age 50+ (1 of 2) 12/19/2011 Pap test for age 21-65 08/17/2015 08/17/2012, 2010 Tetanus booster 08/25/2020 08/25/2010, 12/04, 12/30/2002 Mammogram for age 45-75 04/28/2023 04/28/20, 03/02/2018, 07/26/2013, Additional history exists Influenza for age 50-64 03/04/2024 04/28/20, 04/28/2021, 03/18/2020, Additional history exists Fecal testing sDNA-FIT (Bee guard) for age 45-75 11/10/2024 11/10/2021 Depression [...] history exists Medical Devices Implanted Type Area Rivet Hole Machine Operator Device Identifier Shelf Expiration Date Model / Serial / Lot [id number] loderm 2x12mm [[id number]] Implanted:Qty: 1 on 08/08/2008 at [facility] Explanted:at [facility] (Quantity not on file) [facility] [employer] [id number]# / [id number] / Stem Compnt Primary 8mm Mini - [id number] Implanted:Qty: 1 on 03/17/2011 at [facility] Right: Shoulder BIOMET [id number]# / / [id number] Head Hum Bio-Mod [id number] - [id number] Implanted:Qty: 1 on 03/17/2011 at [facility] Right: Shoulder BIOMET 344159# / / [id number] Base Glenoid Hybrid 4mm Sm - [id number] Implanted:Qty: 1 on 03/17/2011 at [facility] Right: Shoulder BIOMET 363668# / / [id number] Cmnt 1/2 Dosehowmedica - [id number] Implanted:Qty: 1 on 03/17/2011 at [facility] Right: Shoulder [employer] 6188-1-01 0# / / [id number] Post Glenoid Hybrid Regenerex - [id number] Implanted:Qty: 1 on 03/17/2011 at [facility] Right: Shoulder BIOMET [id number] # / / [id number] Head Humeral 44x15 Co Cr Biomodular - [id number] Implanted:Qty: 1 on 07/12/2012 at [facility] Left: Shoulder BIOMET [id number]# / / [id number] Shoulder Stem Implanted:Qty: 1 on 07/12/2012 at [facility] Left: Shoulder [id number] / / [id number] Description:SHOULDER STEM Cmnt Bone 1/2 Dosehowmedica - [id number] Implanted:Qty: 1 on 07/12/2012 at [facility] Left: Shoulder [employer] 6188-1-01 0# / / [id number] Post Glenoid Hybrid Regenerex - [id number] Implanted:Qty: 1 on 07/12/2012 at [facility] Left: Shoulder BIOMET [id number] # / / [id number] Base Glenoid Hybrid 4mm Sm - [id number] Implanted:Qty: 1 on 07/12/2012 at [facility] Left: Shoulder BIOMET [id number]# / / [id number] Procedures Procedure Name Priority Date/Time Associated Diagnosis [...] HIV 1/2 Add On 07/21/2015 9:40 AM SCHOOL LUNCH MANAGER ASSOCIATE SOFTWARE DEVELOPMENT ENGINEER THIN PREP PAP SCREEN IMAGED Routine 08/17/2012 4:02 PM SCHOOL LUNCH MANAGER Screening for malignant neoplasm of the cervix from Last 3 Months or Most Recently Relevant to Health Maintenance Results * (ABNORMAL) PRO-BNP (05/04/2024 4:09 PM CDT) NT PROBNP 362(H) <125 pg/mL [facility] Blood BLOOD SPECIMEN / Unknown 05/04/2024 4:09 PM CDT 05/04/2024 4:09 PM CDT Barbara Valetnin DO SEND OUTS [facility] [facility] [address], [place] [address], [facility] [address] [address], [place] [address] * (ABNORMAL) BASIC METABOLIC PANEL (05/04/2024 4:09 PM CDT) Only the most recent of2 resultswithin the time period is included. GLUCOSE 83 65 - 99 mg/dL [facility] [...] PM CDT 05/04/2024 4:09 PM CDT Barbara Hayssupriya PICKENS CHEMISTRY [facility] [address] [place] [address], [facility] [address] [place] [address] * XR MAMMO BILAT SCREENING (04/28/2022 2:04 [...] health care provider. XR MAMMO BILAT SCREENING [[id number]] CLINICAL HISTORY: ??This is an asymptomatic 61 y.o. patient. INDICATION FOR EXAM: Mammogram Screening. TECHNIQUE: CC & MLO views were obtained. ??This study was evaluated with the assistance of Computer-Aided Detection. COMPARISON FILM: Yes 03/02/18 [email or web address] 07/26/13 [email or web address] FINDINGS: ??The breasts are extremely dense, which lowers the sensitivity of mammography. There are no dominant masses, suspicious micro calcifications or areas of architectural distortion. Shania Montiel MD MAMMO * LIPID PANEL W REFLEX MEASURED LDL (04/28/2022 1:44 PM CDT) CHOLESTEROL,TOTAL 139 100 - 199 mg/dL 04/30/2022 6:25 PM CDT [facility] TRIGLYCERIDES 141 <150 mg/dL 04/30/2022 6:25 PM CDT [facility] HDL CHOLESTEROL 42 >40 mg/dL 6:25 PM CDT [facility] NON-HDL CHOLESTEROL 97 <145 mg/dl 04/30/2022 6:25 PM CDT [facility] CHOL/HDL RATIO 3.31 <4.50 04/30/2022 6:25 PM CDT [facility] LDL CHOLESTEROL 69 <=130 mg/dL 04/30/2022 6:25 PM CDT [facility] VLDL CHOLESTEROL 28 <=30 mg/dL 04/30/2022 6:25 PM CDT [facility] PROVIDER ORDERED STATUS RANDOM 04/30/2022 6:25 PM CDT [facility] Blood BLOOD SPECIMEN / Unknown Venipuncture / Unknown 04/28/2022 1:44 PM CDT 04/28/2022 1:45 PM CDT Shania Montiel MD CHEMISTRY [facility] [address] [place] [address], * FECAL DNA (AKA COLOGUARD) (11/10/2021 1:00 PM CDT) Shania Montiel MD COMMUNICATION ORD * ANTI HCV [16074.2] (02/16/2018 4:20 PM CDT) HEPATITIS C ANTIBODY Non-React alex Non-React alex 02/17/2018 2:48 PM CDT [facility] Comment:Antibodies to HCV no t detected; does not exclude the possibility of exposure to HCV. Blood BLOOD SPECIMEN / Unknown Butterfly / Unknown 02/16/2018 4:20 PM CDT 02/16/2018 4:20 PM CDT Coleman Plata MD SEND OUTS [facility] [address] [place] [address], * HIV 1&2 TODAY (07/21/2015 9:40 AM SCHOOL LUNCH MANAGER) Pathologist [facility] HIV-1/HIV-2 ANTIBODY Non-Reacti ve Non-Reacti ve 07/21/2015 10:31 AM SCHOOL LUNCH MANAGER [facility] Blood specimen (specimen) BLOOD SPECIMEN / Unknown Venipuncture / Unknown 07/21/2015 9:40 AM SCHOOL LUNCH MANAGER 07/21/2015 9:47 AM SCHOOL LUNCH MANAGER Narrative [facility] - 07/21/2015 10:31 AM SCHOOL LUNCH MANAGER HIV-1 p24 and HIV-1/HIV-2 Ab not detected Kait Morales DO SEND OUTS Performing Organization Address [facility]/ZIP Co de Phone Number [facility] [address] [place] [address], * ASSOCIATE SOFTWARE DEVELOPMENT ENGINEER THIN PREP PAP SCREEN IMAGED (08/17/2012 4:02 PM SCHOOL LUNCH MANAGER) Pathologist [facility] CYTOLOGY CYTOPATHOLOGY REPORT [facility] Status: Final Status ?[id number] CLINICAL INFORMATION Last Date of LMP ? [...] COLLECTED:08/17/12 ? ACCESSIONED: ??08/18/12 ?? SIGNED: ??08/21/12 [facility] PAP [place] CODE NIL [facility] Tissue specimen (specimen) (Cervical/Vagina l) 08/17/2012 4:02 PM SCHOOL LUNCH MANAGER 08/17/2012 4:00 PM SCHOOL LUNCH MANAGER Coleman Plata MD PATHOLOGY/CYTOLOGY [facility] INTERNAL ZIP [phone] [place] [address] from Last 3 Months or Most Recently [...] Urine earlier this year (per report from [facility], not available in CareEverywhere), 04/19/18 [...] 8:01 PM 07/15/2012 6:55 PM Care Teams County Attorney Relationship Specialty Start Date End Date Barbara Valentin DO [address] [place] [address] PCP - General Family Practice 11/15/22 Julio Ibrahim MD [address] [facility] [address] [place] [address] Surgery - Orthopedics 02/01/11 Chuy Doss MD [address] [facility] [address] [place] [address] Surgery - Vascular 02/01/11 Markel Strong MD [address] [place] [address] Provider Family Practice 08/08/20 Nikolai Ibarra MD [address] [facility] [address] [place] [address] Endocrinology 09/07/22 [facility] [place] [address], [place] [address] 04/07/24 Suad Ng/ Med[employer] CM Quality Review Specialist 07/14/17 [facility] Home Health Nurse 07/01/17 [facility] Services Home Health Aide 07/14/17 [facility] Bed Control Specialist/ Ally Christianson [address] [place] [address] Quality Review Specialist 07/07/17
== END 2024-05-17 15:13 | disposition home or self-care (01) ==
LOC: WOUND 15:12
PROVIDERS: PCP Family Medicine; Visit Provider Nurse Practitioner Family
DX: E11.621 Type 2 diabetes mellitus with foot ulcer (principal); L97.422 Non-pressure chronic ulcer of left heel and midfoot with fat layer exposed; M14.672 Charcot's joint, left ankle and foot; Z79.4 Long term (current) use of insulin
CPT/HCPCS: 11042

== ENCOUNTER 2024-05-25 11:03 | Outpatient (CLI) | payer OTHER, SELFPAY ==
--- OUTSIDE RECORDS SUMMARY | 2024-05-25 11:05 | XMS_ITS | Encounter Summary ---
Author Organization [facility] Address [address] [place] [address] Care Team Providers Care Travel Specialist Name Role Phone Barbara Valentin DO Primary Care Provider [phone] Encounter Details Date Type Department Care Team (Late st Contact Info) Description 05/12/2024 Orders Only [facility] [place] [address] Gabriel Hicks MD [address] [place] [address] Chronic kidney disease, stage 4 [...] (HCC) documented in this encounter Care Teams Travel Specialist Relationship Specialty Start Date End Date Barbara Valentin DO [address] [place] [address] PCP - General Family Medicine 09/22/23 documented as of this encounter
--- OUTSIDE RECORDS SUMMARY | 2024-05-25 11:05 | XMS_ITS | Clinical Summary ---
Author Organization [facility] Address [address] [facility] [place] [address] Phone Care Team Providers Care Financial Recording Clerk Name Role Phone Barbara Valentin DO Primary Care Provider [phone] Allergies Active Allergy Reactions Criticality Noted Date [...] One Pack) 3 MG/DOSE powder Inhale 1 [place] into affected nostril(s) each time if needed [...] [facility] [address] [place] [address] Gabriel Hicks MD Chronic kidney disease, stage 4 (severe) ([facility]) 05/04/2024 Telephone [facility] [address] [place] [address] Reina Caruso RN from Last [...] this topic Insurance [place] [facility] [id number] [id number] Care Teams Financial Recording Clerk Relationship Specialty Start Date End Date Barbara Valentin DO [address] [place] [address] PCP - General Family Medicine 09/22/23
--- OUTSIDE RECORDS SUMMARY | 2024-05-25 11:05 | XMS_ITS | Encounter Summary ---
Author Organization [facility] Address [address] [place] [address] Care Team Providers Care Aircraft Detail Draftsperson Name Role Phone Barbara Valentin DO Primary Care Provider [phone] Encounter Details Date Type Department Care Team (Late st Contact Info) Description 02/01/2024 Telephone [facility] [address] [place] [address] Gabriel Hicks MD [address] [place] [address] Social History Tobacco Use Types [...] filedocumented in this encounter Care Teams Aircraft Detail Draftsperson Relationship Specialty Start Date End Date Barbara Valentin DO [address] [place] [address] PCP - General Family Medicine 09/22/23 documented as of this encounter
--- OUTSIDE RECORDS SUMMARY | 2024-05-25 11:05 | XMS_ITS | Encounter Summary ---
Author Organization [facility] Address [address] [place] [address] Care Team Providers Care Family [employer] Teacher Name Role Phone Barbara Valentin DO Primary Care Provider [phone] Encounter Details Date Type Department Care Team (Late st Contact Info) Description 05/04/2024 Telephone [facility] [address] [place] [address] Reina Caruso, RN [address] [place] [address] Social History Tobacco Use Types [...] filedocumented in this encounter Care Teams Family [employer] Teacher Relationship Specialty Start Date End Date Barbara Valentin DO [address] [place] [address] PCP - General Family Medicine 09/22/23 documented as of this encounter
--- OUTSIDE RECORDS SUMMARY | 2024-05-25 11:05 | XMS_ITS | Clinical Summary ---
Author Organization [employer] [facility] Address [place], [place] [address] Care Team Providers Care Firefighter Marine Name Role Phone Julio Ibrahim MD Unavailable [phone] Chuy Doss MD Unavailable Markel Strong MD Unavailable [phone] Nikolai Ibarra MD Unavailable Barbara Valentin Patricia DO Primary Care Provider [facility] Toshia Hooks NP Unavailable Allergies Active Allergy Reactions Criticality Noted [...] nasal solution (FLONASE)Indicati ons:Nasal congestion Inhale 1 [place] into affected nostril(s) once daily. Inhale 1 [place] in the nostril(s) once daily. 16 g 01/12/20 22 Active CPAPIndications:S caspere obstructive sleep apnea CPAP [...] continuous glucose monitor READER (FreeStyle Elli 2 Bradford)Indication s:Type 1 diabetes mellitus with other specified complication (HC) To be used to read blood sugars per edge inker uppers's directions. 1 Each 05/19/20 23 Active blood-glucose [...] be used to read blood sugars per edge inker uppers's directions. 6 Each 3 09/06/19 24 Active [...] Chronic, continuous use of opioids Inhale 1 [place] into affected nostril(s) each time if needed [...] mellitus at risk of hypoglycemia Inhale 1 [place] into affected nostril(s) each time if needed [...] day 15 mL 3 04/16/20 24 Active blood sugar diagnostic (Blood Glucose Test) stripIndications: Type 1 diabetes mellitus with other specified complication (HC) Test 4 times per day. 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 60 Tablet 3 05/04/20 24 Active FLUoxetine (PROZAC) 10 mg capsuleIndication s:Moderate episode of recurrent major depressive disorder (HC) TAKE 1 CAPSULE (10 MG) BY MOUTH ONCE DAILY. 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 B.I.D. / PRN For O.A. pain or Diabetic P.N. Pain ; max: 2 a day. Use dates: 05/21/24-06/19/24 60 Tablet 05/21/20 Active blood sugar diagnostic (Blood Glucose Test) stripIndications: Type 1 diabetes mellitus with other specified complication (HC) Test 4 times per day. 400 Each 3 05/19/20 23 024 Discontinued(Re order (E-cancel not sent)) FLUoxetine (PROZAC) 10 mg capsuleIndication s:Moderate episode of recurrent major depressive disorder (HC) TAKE 1 CAPSULE (10 MG) BY MOUTH ONCE DAILY. 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 B.I.D. / PRN For O.A. pain or Diabetic P.N. Pain ; max: 2 a day. Use dates: 04/21/24-05/20/24 60 Tablet 04/20/20 024 Discontinued(Re order (E-cancel not sent)) ciprofloxacin (CIPRO) 250 mg tablet Take 250 mg by mouth two times daily before meals. 05/18/20 024 Active Problems Patient Care Coordination No [...] agreement signed - 10/07/23 10/07/2023 Overview (10/07/2023): [facility] Noemí Dennis .................... 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) use of anticoagulants 11/27/2013 12/28/2013 [...] Encounters Date Type Department Care Team Description 05/21/2024 11:30 AM CORPORATE GIVING MANAGER Home Care Visit [facility] [address] [place] [phone] Geneva Sanchez RN SN - HOME VISIT 05/21/2024 Telephone [facility] [address] [place] [phone] Geneva Sanchez RN Home Care 05/21/2024 Telephone [facility] [address] [facility] [place] [address] Shaqra, Barbara Patricia, DO Results 05/21/2024 Orders Only [facility] [address] [place] [phone] Shaqra, Barbaar Patricia, DO Lab 05/21/2024 Telephone [facility] [address] [place] [address] Toshia Hooks NP Refill Request 05/17/2024 Refill [facility] [address] [place] [address] Shaqra, Barbara Patricia, DO Refill Request (Fluoxetine) 05/16/2024 Telephone [facility] [address] [place] [address] Shaqra, Barbara Patricia, DO Follow Up (Blood sugar / weight ) 05/14/2024 2:00 PM CORPORATE GIVING MANAGER Home Care Visit [facility] [address] [place] [phone] Geneva Sanchez RN SN - HOME VISIT 05/14/2024 Telephone [facility] [address] [place] [address] Shaqra, Barbara Patricia, DO return call 05/14/2024 Telephone [facility] [address], [place] [address] Geneva Sanchez, family service center director 05/14/2024 Orders Only [facility] [address], [place] [address] Shaqra, Barbara Patricia, DO Lab (Home care) 05/10/2024 Telephone [facility] [address] [place] [address] Shaqra, Barbara Patricia, DO Results 05/08/2024 Telephone [facility] [address] [place] [address] Shaqra, Barbara Patricia, DO Results 05/07/2024 12:00 PM CORPORATE GIVING MANAGER Home Care Visit [facility] [address] [place] [address] Malou Griffith LPN CLAY WORKER - HOME VISIT 05/07/2024 10:10 AM CORPORATE GIVING MANAGER Phone Office Visit [facility] [address] [place] [address] Nikolai Ibarra MD Consult (Phone visit) 05/07/2024 Travel 05/07/2024 Telephone [facility] [address] [place] [address] Barbie Barbara Patricia, DO Blood Sugar 05/04/2024 3:00 PM CDT Office Visit [facility] [address] [place] [address] Germanra Barbara Patricia, DO ER Follow up (Hypoglycemia ) 05/04/2024 12:15 PM CDT Home Care Visit [facility] [address] [place] [address] Geneva Sanchez RN SN - HOME VISIT 05/04/2024 Travel 04/30/2024 10:00 AM CDT Home Care Visit [facility] [address] [place] [address] Geneva Sanchez RN SN - HOME VISIT 04/27/2024 10:30 AM CDT Home Care Visit [facility] [address] [place] [address] Geneva Sanchez RN SN - HOME VISIT 04/27/2024 Telephone [facility] [address] [place] [address] Sir Valentini Patricia, DO 04/24/2024 9:00 AM CDT Home Care Visit [facility] [address] [place] [address] Geneva Sanchez RN SN - HOME VISIT 04/21/2024 1:00 PM CDT Home Care Visit [facility] [address] [place] [address] Geneva Sanchez RN SN - HOME VISIT 04/21/2024 Telephone [facility] [address] [place] [address] Barbara Valentin Patricia, DO Home Care (Update) 04/20/2024 Telephone [facility] [address] [place] [phone] Romina Pro, LOS Failed Appointment 04/20/2024 Refill [facility] [address] [place] [address] Toshia Hooks NP Refill Request 04/20/2024 Telephone [facility] [address] [place] [address] Barbara Valentin, DO Diabetes (/) 04/17/2024 9:00 AM CDT Home Care Visit [facility] [address] [place] [phone] Geneva Sanchez RN SN - HOME VISIT 04/17/2024 Telephone [facility] [address] [place] [address] Geneva Sanchez RN Home Care 04/16/2024 Telephone [facility] [address] [place] [address] Barbara Valentin, Results 04/16/2024 Patient Outreach [facility] Care Management - Care Management Navigation/[facility] [address] [place] [address] Aide Rolon [facility] (Care Guide Breast Cancer Screening outreach/) 04/13/2024 11:00 AM CDT Office Visit [facility] [address] [place] [address] Barbara Valentin, Follow Up (Diabetes, home care, medications) 04/13/2024 1:20 AM CDT Home Care Visit [facility] [address] [place] [phone] Coleman Rock RN SN - WOUND/OSTOMY CHART CONSULT 04/13/2024 Refill [facility] [address] [place] [address] Barbara Valentin Patricia, DO Refill Request (need changes/clarificati on) 04/13/2024 Travel 04/12/2024 9:00 AM CDT Home Care Visit [facility] [address] [place] [address] Geneva Sanchez, RN SN - OASIS START OF CARE 04/12/2024 Orders Only [facility] [address] [place] [address] Barbara Valentin, DO <No scans attached> 04/12/2024 Telephone [facility] [address], [place] [address] Geneva Sanchez, family service center director 04/12/2024 Patient Outreach [facility] Management - Care Management Navigation/[facility] [address] [place] [address] [facility] (Care Guide Breast Cancer Screening outreach/) 04/12/2024 Plan of Care Documentation [facility] [address] [place] [address] 04/09/2024 Patient Outreach [facility] - Care Management Navigation/[facility] [address] [place] [address] [facility] (Care Guide Breast Cancer Screening outreach/) 04/09/2024 Home Care Visit [facility] [address] [place] [address] Elvi Meyers, LOS CARE COORDINATION 04/06/2024 11:25 AM CDT Office Visit [facility] [address] [place] [address] Barbara Valentin, DO Hospital F/U (Hypoglycemia - ER/hospital 03/29, 04/06 ) 04/06/2024 Orders Only [facility] [address] [facility] [address] [facility] [address] [place] [address] Nikolai Ibarra MD <No scans attached> 04/06/2024 Travel 04/04/2024 Refill [facility] [address] [place] [address] Shaqra, Barbara Patricia, DO Refill Request (Amlodipine, Omeprazole) 03/27/2024 Telephone [facility] [address] [place] [address] Shaqra, Barbara Patricia, DO Questions 03/16/2024 Refill [facility] [address] [place] [address] Toshia Hooks NP Refill Request 03/14/2024 10:30 AM CDT Home Care Visit [facility] [address] [place] [address] Geneva Sanchez, LOS SN - OASIS DISCHARGE 03/12/2024 Refill [facility] [address] [place] [address] Shaqra, Barbara Patricia, DO Refill Request (Pregabalin, Fluoxetine, Duloxetine) 03/06/2024 10:00 AM CDT Home Care Visit [facility] [address] [place] [address] Geneva Sanchez, LOS SN - HOME VISIT 03/06/2024 9:15 AM CDT Home Care Visit [facility] [address] [place] [phone] Alex Contreras MUCK BOSS - HOME VISIT 03/03/2024 Home Care Visit [facility] [address] [place] [phone] Nitza Riojas LISW CARE COORDINATION 02/28/2024 2:00 PM CDT Home Care Visit [facility] [address] [place] [phone] Shania Elaine, RN SN - HOME VISIT 02/28/2024 10:45 AM CDT Home Care Visit [facility] [address] [place] [phone] Fabiola Mathis MUCK BOSS - HOME VISIT 02/25/2024 Home Care Visit [facility] [address] [place] [address] Nitza Riojas LISW CARE COORDINATION from Last 3 Months Immunizations Name Administration [...] Sign Reading Time Taken Comments Blood Pressure 133/79 05/21/2024 11:44 AM CORPORATE GIVING MANAGER Pulse 75 05/21/2024 11:44 AM CORPORATE GIVING MANAGER Temperature 36.9 C (98.4 F) 05/21/2024 11:44 AM CORPORATE GIVING MANAGER Respiratory Rate 16 05/21/2024 11:44 AM CORPORATE GIVING MANAGER Oxygen Saturation 94% 05/21/2024 11:44 AM CORPORATE GIVING MANAGER Inhaled Oxygen Concentration - - Weight 94.5 kg (208 lb 6.4 oz) 05/21/2024 11:44 AM CORPORATE GIVING MANAGER Height 152.4 cm (5') 01/12/2024 9:27 PM CDT Body Mass Index 40.7 01/12/2024 9:27 PM CDT Plan of Treatment Upcoming Encounters Date Type Department Care Team (Late st Contact Info) Description 05/28/2024 2:00 PM CORPORATE GIVING MANAGER Home Care Visit [facility] [address] [place] [address] Geneva Sanchez, LOS 05/30/2024 1:00 PM CORPORATE GIVING MANAGER Home Care Visit [facility] [address] [place] [address] Geneva Sanchez, LOS 06/04/2024 4:00 AM CORPORATE GIVING MANAGER Home Care Visit [facility] [address] [place] [address] Geneva Sanchez, LOS 06/07/2024 4:00 AM CORPORATE GIVING MANAGER Appointment [facility] [address] [place] [address] Geneva Sanchez, LOS 06/15/2024 3:00 PM CORPORATE GIVING MANAGER Office Visit [facility] [address] [place] [address] Barbara Valentin, [address] [place] [address] 09/07/2024 3:10 PM CORPORATE GIVING MANAGER Phone Office Visit [facility] [address] [facility] [address] [place], [place] [phone] Nikolai Ibarra MD [address] [place], [place] [phone] Health Maintenance Due Date Last Done Comments Zoster (shingles) series for age 50+ (1 of 2) 12/19/2011 Pap test for age 21-65 08/17/2015 08/17/2012, 2010 Tetanus booster 08/25/2020 08/25/2010, 12/04, 12/30/2002 Mammogram for age 45-75 04/28/2023 04/28/20, 03/02/2018, 07/26/2013, Additional history exists Influenza for age 50-64 03/04/2024 04/28/20, 04/28/2021, 03/18/2020, Additional history exists Fecal testing sDNA-FIT ([place] guard) for age 45-75 11/10/2024 11/10/2021 Depression [...] history exists Medical Devices Implanted Type Area Insurance Business Analyst Device Identifier Shelf Expiration Date Model / Serial / Lot [id number] 2x12mm [[id number]] Implanted:Qty: 1 on 08/08/2008 at [facility] Explanted:at [facility] (Quantity not on file) [employer] [id number]# / [id number] / Stem Compnt Primary 8mm Mini - [id number] Implanted:Qty: 1 on 03/17/2011 at [facility] Right: Shoulder BIOMET [id number]# / / [id number] Head Hum Bio-Mod [id number] - [id number] Implanted:Qty: 1 on 03/17/2011 at [facility] Right: Shoulder BIOMET [id number]# / / [id number] Base Glenoid Hybrid 4mm Sm - [id number] Implanted:Qty: 1 on 03/17/2011 at [facility] Right: Shoulder BIOMET [id number]# / / [id number] Cmnt 1/2 [employer] - [id number] Implanted:Qty: 1 on 03/17/2011 at [facility] Right: Shoulder [employer] 6188-1-01 0# / / [id number] Post Glenoid Hybrid Regenerex - [id number] Implanted:Qty: 1 on 03/17/2011 at [facility] Right: Shoulder BIOMET [id number] # / / [id number] Head Humeral 44x15 Co Cr Biomodular - [id number] Implanted:Qty: 1 on 07/12/2012 at [facility] Left: Shoulder BI[employer] 972180# / / [id number] Shoulder Stem Implanted:Qty: 1 on 07/12/2012 at [facility] Left: Shoulder [id number] / / [id number] Description:SHOULDER STEM Cmnt Bone 1/2 [employer] - [id number] Implanted:Qty: 1 on 07/12/2012 at [facility] Left: Shoulder [employer] 6188-1-01 0# / / [id number] Post Glenoid Hybrid Regenerex - [id number] Implanted:Qty: 1 on 07/12/2012 at [facility] Left: Shoulder BIOMET [id number] # / / [id number] Base Glenoid Hybrid 4mm Sm - [id number] Implanted:Qty: 1 on 07/12/2012 at [facility] Left: Shoulder BIOMET [id number]# / / [id number] Procedures Procedure Name Priority Date/Time Associated Diagnosis Comments RENAL FUNCTION PANEL Routine 05/21/2024 11:41 AM CORPORATE GIVING MANAGER CKD (chronic kidney disease) stage 4, GFR 15-29 ml/min (HC) HEMOGLOBIN Routine 05/21/2024 11:41 AM CORPORATE GIVING MANAGER CKD (chronic kidney disease) stage 4, GFR 15-29 ml/min (HC) PRO-BNP Routine 05/04/2024 4:09 PM CDT Heart [...] HIV 1/2 Add On 07/21/2015 9:40 AM CORPORATE GIVING MANAGER BLOCK HAND THIN PREP PAP SCREEN IMAGED Routine 08/17/2012 4:02 PM CORPORATE GIVING MANAGER Screening for malignant neoplasm of the cervix from Last 3 Months or Most Recently Relevant to Health Maintenance Results * (ABNORMAL) HEMOGLOBIN (05/21/2024 11:41 AM CORPORATE GIVING MANAGER) Pathologist [facility] HEMOGLOBIN 10.2(L) 12.0 - 16.0 g/dL 05/21/2024 12:53 PM [facility] MCV 89 80 - 100 fL 05/21/2024 12:53 PM [facility] Blood BLOOD SPECIMEN / Unknown Butterfly / Unknown 05/21/2024 11:41 AM CORPORATE GIVING MANAGER 05/21/2024 12:45 PM CORPORATE GIVING MANAGER [facility] - 05/21/2024 12:53 PM CORPORATE GIVING MANAGER This procedure was originally ordered at [facility]. Barbara Valentin DO HEMATOLOGY [facility] [address] [place] [address] * (ABNORMAL) RENAL FUNCTION PANEL (05/21/2024 11:41 AM CORPORATE GIVING MANAGER) SODIUM 139 136 - 145 mmol/L 05/21/2024 2:04 PM [facility] POTASSIUM 4.4 3.5 - 5.1 mmol/L 05/21/2024 2:04 PM [facility] CHLORIDE 96(L) 98 - 107 mmol/L 05/21/2024 2:04 PM [facility] CO2,TOTAL 27 22 - 29 mmol/L 05/21/2024 2:04 PM [facility] ANION GAP 16 5 - 18 05/21/2024 2:04 PM [facility] GLUCOSE 318(H) 70 - 99 mg/dL 05/21/2024 2:04 PM [facility] CALCIUM 9.2 8.8 - 10.4 mg/dL 05/21/2024 2:04 PM [facility] Comment: Reference ranges for this test were updated on 05/08/2024 to reflect our healthy population more accurately. Reference range changes are not retroactively applied to results, but previous results using the same methodology can be interpreted in the context of the new reference range. BUN 48(H) 8 - 23 mg/dL 05/21/2024 2:04 PM [facility] CREATININE 3.15(H) 0.50 - 0.90 mg/dL 05/21/2024 2:04 PM [facility] BUN/CREAT RATIO 15 10 - 20 4 2:04 PM [facility] eGFR 16(L) >90 mL/min/1. 73m2 05/21/2024 2:04 PM [facility] Comment:As of 2021, eG FR is calculated by the CKD-EPI creatinine equation without race adjustment. eGFR can be influenced by muscle mass, exercise, and diet. The reported eGFR is an estimation only and is only applicable if the renal function is stable. PHOSPHORUS 4.8(H) 2.5 - 4.5 mg/dL 05/21/2024 2:04 PM [facility] ALBUMIN 3.6(L) 4.0 - 4.9 g/dL 05/21/2024 2:04 PM [facility] Blood BLOOD SPECIMEN / Unknown Butterfly / Unknown 05/21/2024 11:41 AM CORPORATE GIVING MANAGER 05/21/2024 12:45 PM CORPORATE GIVING MANAGER Barbara Valentin DO CHEMISTRY [facility] [address] [facility] [place] [address] * (ABNORMAL) PRO-BNP (05/04/2024 4:09 PM CDT) Pathologist [facility] NT PROBNP 362(H) <125 pg/mL [facility] Blood BLOOD SPECIMEN / Unknown 05/04/2024 4:09 PM CDT 05/04/2024 4:09 PM CDT Barbara Valentin DO SEND OUTS [employer] [place] [address] [place] [address], [facility] [address] [place] [address] * (ABNORMAL) BASIC METABOLIC PANEL (05/04/2024 4:09 PM CDT) Only the most recent of2 resultswithin the time period is included. Pathologist [facility] GLUCOSE 83 65 - 99 mg/dL [facility] Comment: Fasting reference interval UREA NITROGEN (BUN) 33(H) [...] CDT 05/04/2024 4:09 PM CDT Barbara Valentin CHEMISTRY [facility] [address] [place] [address], [facility] [address] [place] [address] * XR MAMMO BILAT SCREENING (04/28/2022 2:04 PM CDT) Anatomical Region Laterality Modality BREASTS, Breast Left, Breast Right Bilateral Mammography Impressions 04/29/2022 3:37 PM CDT There is no radiographic evidence for malignancy. Recommend annual mammograms. MAMMOGRAM ASSESSMENT: ACR 1 Negative PATIENTS: You will also receive a letter with your examination results in an easy to read format. If you have questions about your results, please contact your referring provider. Narrative 04/29/2022 3:37 PM CDT For Patients: As a result of the Cures Act, medical imaging exams and procedure reports are released immediately into your electronic medical record. You may view this report before your referring provider. If you have questions, please contact your health care provider. XR MAMMO BILAT SCREENING [[id number]] CLINICAL HISTORY: This is an asymptomatic 61 y.o. patient. INDICATION FOR EXAM: Mammogram Screening. TECHNIQUE: CC & MLO views were obtained. This study was evaluated with the assistance of Computer-Aided Detection. COMPARISON FILM: Yes 03/02/18 [employer] 07/26/13 [employer] FINDINGS: The breasts are extremely dense, which lowers the sensitivity of mammography. There are no dominant masses, suspicious micro calcifications or areas of architectural distortion. Shania Montiel MD MAMMO * LIPID PANEL W REFLEX MEASURED LDL (04/28/2022 1:44 PM CDT) CHOLESTEROL,TOTAL 139 100 - 199 mg/dL 04/30/2022 6:25 PM CDT [facility] TRIGLYCERIDES 141 <150 mg/dL 04/30/2022 6:25 PM CDT [facility] HDL CHOLESTEROL 42 >40 mg/dL 6:25 PM CDT [facility] NON-HDL CHOLESTEROL 97 <145 mg/dl 04/30/2022 6:25 PM CDT [facility] CHOL/HDL RATIO 3.31 <4.50 04/30/2022 6:25 PM CDT [facility] LDL CHOLESTEROL 69 <=130 mg/dL 04/30/2022 6:25 PM CDT [facility] VLDL CHOLESTEROL 28 <=30 mg/dL 04/30/2022 6:25 PM CDT [facility] PROVIDER ORDERED STATUS RANDOM 04/30/2022 6:25 PM CDT [facility] Blood BLOOD SPECIMEN / Unknown Venipuncture / Unknown 04/28/2022 1:44 PM CDT 04/28/2022 1:45 PM CDT Shania Montiel MD CHEMISTRY [facility] [address] [place] [address], * FECAL DNA (AKA COLOGUARD) (11/10/2021 1:00 PM CDT) Shania Montiel MD COMMUNICATION ORD * ANTI HCV [[id number]] (02/16/2018 4:20 PM CDT) HEPATITIS C ANTIBODY Non-React alex Non-React alex 02/17/2018 2:48 PM CDT [facility] Comment:Antibodies to HCV no t detected; does not exclude the possibility of exposure to HCV. Blood BLOOD SPECIMEN / Unknown Butterfly / Unknown 02/16/2018 4:20 PM CDT 02/16/2018 4:20 PM CDT Coleman Plata MD SEND OUTS [facility] [address] [place] [address], * HIV 1&2 TODAY (07/21/2015 9:40 AM CORPORATE GIVING MANAGER) HIV-1/HIV-2 ANTIBODY Non-Reacti ve Non-Reacti ve 07/21/2015 10:31 AM CORPORATE GIVING MANAGER [facility] Blood specimen (specimen) BLOOD SPECIMEN / Unknown Venipuncture / Unknown 07/21/2015 9:40 AM CORPORATE GIVING MANAGER 07/21/2015 9:47 AM CORPORATE GIVING MANAGER Narrative [facility] - 07/21/2015 10:31 AM CORPORATE GIVING MANAGER HIV-1 p24 and HIV-1/HIV-2 Ab not detected Kait Morales DO [facility] [address] [place] [address], * BLOCK HAND THIN PREP PAP SCREEN IMAGED (08/17/2012 4:02 PM CORPORATE GIVING MANAGER) Pathologist [facility] CYTOLOGY CYTOPATHOLOGY REPORT [facility] Status: Final Status [id number] CLINICAL INFORMATION Last Date of LMP :07/03/2012 Last Pap Date :02/01/2011 Last Pap Result :NIL ABN [place]/Bx Past 5 YRS :None Hormone Usage :BCP/OCP/Patch/Rin g Menstrual Status :Regular Periods [place]/Bx done today :No Additional Information :None given HPV Request :HPV if ASCUS SPECIMEN SOURCE :Cervical/vaginal ThinPrep Vial, screening SPECIMEN ADEQUACY :Satisfactory for evaluation No endocervical component seen. INTERPRETATION/RES ULT Negative for intraepithelial lesion or malignancy (NIL) Cytology 1st Screener :osmani Signed by :osmani This specimen was screened by the FDA approved ThinPrep Imaging System and manually reviewed. NOTE: The Pap test is a screening technique, not a diagnostic procedure. It is used primarily to screen for squamous cancers and precursor lesions. Published studies have shown that it is subject to both false negative and false positive results. The pap test should not be used as the sole means to diagnose or exclude pre-malignant and malignant lesions. COLLECTED:08/17/12 ACCESSIONED: 08/18/12 SIGNED: 08/21/12 [facility] PAP [place] CODE NIL [facility] Tissue specimen (specimen) (Cervical/Vagina l) 08/17/2012 4:02 PM CORPORATE GIVING MANAGER 08/17/2012 4:00 PM CORPORATE GIVING MANAGER Coleman Plata MD PATHOLOGY/CYTOLOGY [facility] INTERNAL ZIP [id number] [place], [place] [id number] from Last 3 Months or Most Recently [...] Urine earlier this year (per report from [facility], not available in CareEverywhere), 04/19/18 L cheek abscess exclusions for contact precaution discontinuation (if > 12 months since positive culture): resides in acute/snf care, receiving hemodialysis, has chronic open wounds/skin [...] 8:01 PM 07/15/2012 6:55 PM Care Teams Firefighter Marine Relationship Specialty Start Date End Date Barbara Valentin DO [address] [place] [address] PCP - General Family Practice 11/15/22 Julio Ibrahim MD [address] [place] [address] Surgery - Orthopedics 02/01/11 Chuy Doss MD [address] [place] [address] Surgery - Vascular 02/01/11 Markel Strong MD [address] [place] [address] Provider Family Practice 08/08/20 Nikolai Ibarra MD [address] [facility] [address] [place] [address] Endocrinology 09/07/22 [facility] [address] [place] [address] 04/07/24 Toshia Hooks NP [address] [facility] [address] [place] [address] Pain Management Nurse Practitioner - Adult 05/21/24 Suad Ng/ [employer] Prototype Sewer 07/14/17 [facility] Home Health Nurse 07/01/17 [facility] [employer]ER BLASTING Services Home Health Aide 07/14/17 [facility] [employer] Furnace Operator Helper/ Ally Morillom [address] [place] [address] Prototype Sewer 07/07/17
--- OUTSIDE RECORDS SUMMARY | 2024-05-25 11:05 | XMS_ITS | Encounter Summary ---
Author Organization [facility] Address [address] [place] [address] Care Team Providers Care Form Block Maker Name Role Phone Barbara Valentin DO Primary Care Provider [phone] Encounter Details Date Type Department Care Team (Late st Contact Info) Description 09/22/2023 Documentation Only [facility] [address] [facility] [address] [place] [address] No, Pcp Social History Tobacco [...] filedocumented in this encounter Care Teams Form Block Maker Relationship Specialty Start Date End Date Barbara Valentin DO [address] [facility] [place] [address] PCP - General Family Medicine 09/22/23 documented as of this encounter
== END 2024-05-25 11:04 | disposition home or self-care (01) ==
LOC: WOUND 11:03
PROVIDERS: PCP Family Medicine; Visit Provider Nurse Practitioner Family
DX: E11.621 Type 2 diabetes mellitus with foot ulcer (principal); L97.422 Non-pressure chronic ulcer of left heel and midfoot with fat layer exposed; M14.672 Charcot's joint, left ankle and foot; Z79.4 Long term (current) use of insulin
CPT/HCPCS: 11042

== ENCOUNTER 2024-05-31 12:36 | Outpatient (CLI) | payer OTHER, SELFPAY ==
--- OUTSIDE RECORDS SUMMARY | 2024-06-01 01:30 | XMS_ITS | Encounter Summary ---
Author Organization [facility] Address [address] [place] [address] Care Team Providers Care Electric Track Switch Maintainer Name Role Phone Barbara Valentin DO Primary Care Provider Encounter Details Date Type Department Care Team (Late st Contact Info) Description 05/04/2024 Telephone [facility] [address] [place] [address] Reina Caruso, RN [address] [place] [address] Social History Tobacco Use Types [...] on filedocumented in this encounter Care Teams Electric Track Switch Maintainer Relationship Specialty Start Date End Date Barbara Valentin DO [address] [place] [address] PCP - General Family Medicine 09/22/23 documented as of this encounter
--- OUTSIDE RECORDS SUMMARY | 2024-06-01 01:30 | XMS_ITS | Encounter Summary ---
Author Organization [facility] Address [address] [place] [address] Care Team Providers Care Hand Tufter Name Role Phone Barbara Valentin DO Primary Care Provider [phone] Encounter Details Date Type Department Care Team (Late st Contact Info) Description 05/12/2024 Orders Only [facility] [place] [address] Gabriel Hicks MD [address] [place] [address] Chronic kidney disease, stage 4 [...] (HCC) documented in this encounter Care Teams Hand Tufter Relationship Specialty Start Date End Date Barbara Valentin DO [address] [facility] [place] [address] PCP - General Family Medicine 09/22/23 documented as of this encounter
--- OUTSIDE RECORDS SUMMARY | 2024-06-01 01:30 | XMS_ITS | Clinical Summary ---
Author Organization [facility] [place] Address [address] [facility] [place] [address] Phone Care Team Providers Care Manager Instrumentation Name Role Phone Barbara Valentin DO Primary Care Provider [phone] Allergies Active Allergy Reactions Criticality Noted Date [...] One Pack) 3 MG/DOSE powder Inhale 1 Snow into affected nostril(s) each time if needed [...] [facility] [address] [place] [address] Gabriel Hicks MD Chronic kidney disease, stage 4 (severe) ([facility]) 05/04/2024 Telephone [facility] [place] [address] [place] [address] Reina Caruso RN from Last [...] to complete this topic Insurance MEDICA DUAL [facility] D-SNP ([id number]) [place] [id number] Care Teams Manager Instrumentation Relationship Specialty Start Date End Date Barbara Valentin DO [address] [place] [address] PCP - General Family Medicine 09/22/23
--- OUTSIDE RECORDS SUMMARY | 2024-06-01 01:30 | XMS_ITS | Encounter Summary ---
Author Organization [facility] Address [address] [place] [address] Care Team Providers Care Fixed Income Analyst Name Role Phone Barbara Valentin DO Primary Care Provider [phone] Encounter Details Date Type Department Care Team (Late st Contact Info) Description 02/01/2024 Telephone [facility] [place] [address] [place] [address] Gabriel Hicks MD [address] [place] [address] Social History Tobacco Use Types [...] on filedocumented in this encounter Care Teams Fixed Income Analyst Relationship Specialty Start Date End Date Barbara Valentin DO [address] [place] [address] PCP - General Family Medicine 09/22/23 documented as of this encounter
--- OUTSIDE RECORDS SUMMARY | 2024-06-01 01:30 | XMS_ITS | Encounter Summary ---
Author Organization [facility] Address [address] [place] [address] Care Team Providers Care Basket Braider Name Role Phone Barbara Valentin DO Primary Care Provider [phone] Encounter Details Date Type Department Care Team (Late st Contact Info) Description 09/22/2023 Documentation Only [facility] [address] [place] [address] No, Pcp Social History Tobacco [...] on filedocumented in this encounter Care Teams Basket Braider Relationship Specialty Start Date End Date Barbara Valentin DO [address] [facility] [address] PCP - General Family Medicine 09/22/23 documented as of this encounter
--- OUTSIDE RECORDS SUMMARY | 2024-06-01 01:31 | XMS_ITS | Clinical Summary ---
Author Organization [employer] [facility] Address [place], [place] [address] Care Team Providers Care Certified Surgical First Assistant Name Role Phone Julio Ibrahim MD Unavailable Chuy Doss MD Unavailable Markel Strong MD Unavailable [phone] Nikolai Ibarra MD Unavailable Barbara Valentin Patricia DO Primary Care Provider [phone] [facility] Unavailable Toshia Hooks NP Unavailable Allergies Active [...] SUBCUTANEOUSLY AT HOME 100 Each 03/02/20 21 Suspended Additional Information fluticasone (50 mcg per actuation) nasal solution (FLONASE)Indicati ons:Nasal congestion Inhale 1 Zachary into affected nostril(s) once daily. Inhale 1 Zachary in the nostril(s) once daily. 16 g 01/12/20 024 Discontinued(*P atient states no longer taking) CPAPIndications:S rachna obstructive sleep apnea CPAP machine for home [...] of use: Daily 1 Each 09/22/19 23 Suspended Additional Information sennosides-docusa te (Stool Softener-Stimulan t Laxat) (8.6-50 mg) tabletIndications :Chronic constipation TAKE TWO TABLETS BY MOUTH TWO TIMES DAILY NEEDED FOR CONSTIPATION. 360 Tablet 2 04/20/20 Suspended Additional Information continuous glucose monitor READER (FreeStyle Elli 2 [place])Indication s:Type 1 diabetes mellitus with other specified complication (HC) To be used to read blood sugars per electric distribution engineer's directions. 1 Each 05/19/20 23 Suspended Additional Information blood-glucose meterIndications: Type 1 diabetes mellitus with other specified complication (HC) As directed. Dispense meter, test strips, lancets covered by pt ins. E10.9 IDDM type I - Test 4 times/day. Reason: Unstable diabetes 1 Each 05/19/20 23 Suspended Additional Information lancetsIndication s:Type 1 diabetes mellitus with other specified complication (HC) As directed. Test 4 times per day. 400 Each 3 05/19/20 23 Suspended Additional Information continuous glucose monitor SENSOR KIT (FreeStyle Elli 2 Sensor)Indication s:Type 1 diabetes mellitus with other specified complication (HC) As directed. To be used to read blood sugars per electric distribution engineer's directions. 6 Each 3 09/06/19 24 Suspended Additional Information polyethylene glycoL (MIRALAX) 17 gram/scoop powderIndications :Chronic constipation MIX 17GMS IN 8OZ LIQUID AND DRINK ONCE DAILY NEEDED FOR CONSTIPATION 238 g 2 09/14/19 24 Suspended Additional Information Patient taking differently: 17 gOralDAILY PRN, Informant: Other Medical Records, Reported on 05/31/2024 metoprolol succinate (TOPROL XL) 25 mg Sustained-Release tabletIndications :HTN (hypertension) TAKE ONE TABLET (25 MG) BY MOUTH ONCE DAILY. 90 Tablet 2 09/22/19 24 Suspended Additional Information atorvastatin (LIPITOR) 20 mg tabletIndications :Diabetes mellitus type 1 with complications (HC) Take 1 Tablet (20 mg) by mouth at bedtime. 90 Tablet 3 09/21/19 24 Suspended Additional Information cyanocobalamin (VITAMIN B12) 1,000 mcg tabletIndications :B12 deficiency TAKE ONE TABLET BY MOUTH ONCE DAILY 90 Tablet 2 10/11/19 24 Suspended Additional Information cholecalciferol (VITAMIN D3) 2,000 unit capsuleIndication s:Vitamin D deficiency Take 1 Capsule (2,000 units) by mouth once daily. 90 Capsule 2 11/30/19 24 Suspended Additional Information pen needle, diabetic (NovoFine Plus) 32 gauge x 1/6 ndleIndications:D iabetes mellitus type 1 with complications (HC) Inject subcutaneous. TO USE FOR INSULIN ADMINISTRATION FOUR TIMES DAILY 400 Each 3 12/08/19 24 Suspended Additional Information levothyroxine (SYNTHROID) 125 mcg tabletIndications :Hypothyroidism (acquired) Take 1 Tablet (125 mcg) by mouth once daily. 90 Tablet 12/23/19 24 Suspended Additional Information cetirizine (ZYRTEC) 5 mg tabletIndications :Wheezing Take 1 Tablet (5 mg) by mouth once daily. 90 Tablet 3 12/29/19 24 Suspended Additional Information buprenorphine 5 mcg/hr (Butrans) 5 mcg/hour transdermal patch Apply 1 Patch on dry, clean, hairless skin once weekly. Suspended acetaminophen (TYLENOL) 325 mg tabletIndications :Opioid dependence, uncomplicated (HC) Take 2 Tablets (650 mg) by mouth every 4 hours if needed for Pain or Temp > (Specify) (Temp >100.4 F (38 C)). Max acetaminophen dose: 4000mg in 24 hrs. 01/17/20 24 Suspended Additional Information naloxone (NARCAN) 4 mg/actuation nasal sprayIndications: Chronic, continuous use of opioids Inhale 1 Zachary into affected nostril(s) each time if needed for Patient Diff To Arouse or Resp Rate < 8 / min. Additional doses may be given every 2 to 3 minutes until emergency medical assistance arrives. 2 Each 02/16/20 24 Suspended Additional Information FLUoxetine (PROZAC) 10 mg capsuleIndication s:Moderate episode of recurrent major depressive disorder (HC) TAKE 1 CAPSULE (10 MG) BY MOUTH ONCE DAILY. 30 Capsule 03/16/20 24 024 Discontinued DULoxetine (CYMBALTA) 60 mg Delayed-release capsuleIndication s:Adjustment disorder with mixed anxiety and depressed mood,Chronic pain syndrome Take 1 Capsule (60 mg) by mouth once daily. 30 Capsule 03/16/20 24 Suspended Additional Information amLODIPine (NORVASC) 2.5 mg tabletIndications :Essential hypertension TAKE 1 TABLET (2.5 MG) BY MOUTH TWO TIMES DAILY. 180 Tablet 3 04/08/20 24 Suspended Additional Information omeprazole (PRILOSEC) 20 mg Delayed-Release capsuleIndication s:Chronic GERD TAKE 1 CAPSULE (20 MG) BY MOUTH ONCE DAILY BEFORE A MEAL. 90 Capsule 3 04/08/20 24 Suspended Additional Information albuterol HFA (PRO-AIR; VENTOLIN; PROVENTIL) 90 mcg/actuation inhalerIndication s:Chronic obstructive pulmonary disease, unspecified COPD type (HC) Inhale 1-2 Puffs by mouth every 4 hours if needed for Shortness Of Breath or Wheezing. 3 Each 3 04/06/20 24 Suspended Additional Information fluticasone propion-salmetero L (ADVAIR) 100-50 mcg/dose diskus inhalerIndication s:Chronic obstructive pulmonary disease, unspecified COPD type (HC) Inhale 1 Puff by mouth two times daily. 60 Each 04/06/20 24 Suspended Additional Information pregabalin (LYRICA) 100 mg capsuleIndication s:Chronic pain syndrome Take 1 Capsule (100 mg) by mouth once daily. In the morning 90 Capsule 04/06/20 24 Suspended Additional Information pregabalin (LYRICA) 150 mg capsuleIndication s:Diabetic peripheral neuropathy (HC) TAKE ONE CAPSULE BY MOUTH EVERY EVENING 90 Capsule 04/06/20 24 Suspended Additional Information insulin glargine, U-100, (LANTUS) 100 unit/mL injectionIndicati ons: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, macular edema presence unspecified, unspecified laterality, unspecified proliferative retinopathy type (HC) 8 units each morning 04/13/20 24 Suspended Additional Information torsemide (DEMADEX) 20 mg tabletIndications :Hyperkalemia,Loc alized edema Take 2 Tablets (40 mg) by mouth once daily. 180 Tablet 3 04/13/20 Suspended Additional Information glucagon (Baqsimi) 3 mg/actuation nasal sprayIndications: patient with diabetes mellitus at risk of hypoglycemia Inhale 1 Zachary into affected nostril(s) each time if needed for Severe Hypoglycemia. Roll on side and call 911 after administration. 2 Each 04/13/20 Suspended Additional Information albuterol-ipratro pium (DUONEB) (2.5-0.5 mg) in 3 mL NEBULIZATION solutionIndicatio ns:Chronic obstructive pulmonary disease, unspecified COPD type (HC) Inhale 3 mL via a nebulizer every 6 hours if needed for Shortness of Breath 2nd choice or Wheezing 2nd choice. 180 mL 3 04/16/20 Suspended Additional Information insulin lispro, U-100, (HumaLOG KwikPen Insulin) 100 unit/mL inpn penIndications:Di abetes mellitus type 1 with complications (HC) 10 units with breakfast, 6 units with lunch, 8 units with dinner, plus Corrective dose insulin as needed, up to 45 units / day 15 mL 3 04/16/20 Suspended Additional Information oxyCODONE (ROXICODONE) 5 mg immediate release tabletIndications :Chronic pain syndrome,Neuropat hy due to secondary diabetes (HC) Si p.o. B.I.D. / PRN For O.A. pain or Diabetic P.N. Pain ; max: 2 a day. Use dates: 04/21/24-05/20/24 60 Tablet 04/20/20 024 Discontinued(Re order (E-cancel not sent)) blood sugar diagnostic (Blood Glucose Test) stripIndications: Type 1 diabetes mellitus with other specified complication (HC) Test 4 times per day. 400 Each 3 04/27/20 Suspended Additional Information glucose 4 gram chewable tabletIndications :Brittle diabetes (HC),Diabetes mellitus type 1 with complications (HC) Chew 1 Tablet (4 g) by mouth each time if needed for Blood Gluc < 60 mg/dL. 60 Tablet 3 05/04/20 Suspended Additional Information FLUoxetine (PROZAC) 10 mg capsuleIndication s:Moderate episode of recurrent major depressive disorder (HC) TAKE 1 CAPSULE (10 MG) BY MOUTH ONCE DAILY. 90 Capsule 1 05/20/20 Suspended Additional Information oxyCODONE (ROXICODONE) 5 mg immediate release tabletIndications :Chronic pain syndrome,Neuropat hy due to secondary diabetes (HC) Si p.o. B.I.D. / PRN For O.A. pain or Diabetic P.N. Pain ; max: 2 a day. Use dates: 05/21/24-06/19/24 60 Tablet 05/21/20 Suspended Additional Information Patient taking differently: 5 mg Oral BID PRN, Pain, Si p.o. B.I.D. / PRN For O.A. pain or Diabetic P.N. Pain ; max: 2 a day. Use dates: 05/21/24-06/19/24, Informant: Other Medical Records, Reported on 05/31/2024 ciprofloxacin (CIPRO) 250 mg tablet Take 250 [...] Mobility, finances. Problem Noted Date Diagnosed Date Angioedema 05/31/2024 MRSA (methicillin resistant staph aureus) cultur e positive 05/31/2024 Overview (05/31/2024): Urine 12/28/2023 (HFpEF) heart failure with preserved ejection fr action 05/31/2024 Overview (05/31/2024): - appears intravascularly dry on admission, follow Is and Os closely - robledo placed given acute illness - on Torsemide and Metoprolol as an outpatient - last TTE 01/2024: Final Impressions: 1. Normal LV size, normal wall thickness, normal global systolic function with an estimated EF of 60 - 65%. 2. Right ventricular cavity size is normal, global systolic RV function is normal. 3. No significant valve disease detected. Comparison Compared to prior exam of 10/12/22, there has been no significant change. - 03/31 Stable chronic HFpEF. Stop IVF. Obesity, morbid, BMI 40.0-49.9 05/31/2024 Acute on chronic respiratory failure with hypoxia and hypercapnia 05/31/2024 Brittle diabetes 04/06/2024 Heart failure with preserved ejection fraction, borderline, class III 01/14/2024 Diabetic ketoacidosis withou t coma associated with type 1 diabetes mellitus 01/13/2024 Hypertensive heart and chron ic kidney disease without heart failure, with stage 1 through stage 4 chronic kidney disease, or unspecified chronic kidney disease 11/09/2023 Secondary hyperparathyroidism of renal origin Controlled substance agreement signed - 10/07/23 10/07/2023 Overview (10/07/2023): [facility] Noem[facility] Claudioi .................... 10/07/2023 4:39 PM Type 1 diabetes mellitus with proliferative reti nopathy 11/23/2022 Depression, recurrent 08/24/2022 Hyperkalemia 08/13/2021 S/P gastric bypass 07/30/2021 Overview (07/30/2021): 2009 lab RNY CKD (chronic kidney disease) stage 4, GFR 15-29 ml/min 07/02/2021 Stage 4 chronic kidney disease 07/02/2021 Overview (05/31/2024): - baseline 2 as outpatient, admission Creatinine 2.9, Cr @ 2.1 03/31, near baseline. Stop IVF. - 04/01 Cr down to 1.4. May be hypervolemic, but lungs are clear and LE show no edema. Mild hypoxia noted. - Restarted home torsemide, creatinine remains stable at 1.4 Heart failure 05/07/2021 Urinary retention 03/12/2021 Closed fracture of femur 03/12/2021 Overview (03/12/2021): 11/19/2020 Opioid dependence, uncomplicated 03/12/2021 Periprosthetic fracture arou nd internal prosthetic right hip joint 11/25/2020 Type 1 diabetes mellitus wit h diabetic neuropathy, unspecified 11/25/2020 Hypothyroidism, unspecified 11/25/2020 Hyperlipidemia, unspecified 11/25/2020 Hypertension 11/25/2020 Overview (05/31/2024): - Amlodipine, Metoprolol, Torsemide: restart home meds - admission BP 130s/80s URIAH 08/21/1998 AHI-39 02/19/2019 Morbid obesity with BMI of 45.0-49.9, adult 06/03 Lactic acid acidosis 06/10/2017 Heel ulcer, right, with unspecified severity 02/2017 Foot drop, bilateral 07/23/2015 Type 1 diabetes mellitus with other specified co mplication 07/23/2015 Overview (03/12/2021): Complicated with retinopathy, chronic kidney disease, neuropathy Multiple hospitalizations for labile diabetes and hypoxia which led to extended stay in [facility] care 07/2015- 05/2017 Hospitalized with ketoacidosis 06/2017 [...] total right knee replacement 01/02/2015 06/10/2017 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 11/27/2013 12/28/2013 Anticoagulation [...] Date Type Department Care Team Description 05/31/2024 4:56 PM CASKET ASSEMBLER METAL - Present Hospital Encounter [facility] [address] [place] [address] s, U Hospitalist Reece Dahl MD 05/28/2024 2:00 PM CASKET ASSEMBLER METAL Home Care Visit [facility] [address] [place] [phone] Geneva Sanchez RN SN - HOME VISIT 05/21/2024 11:30 AM CASKET ASSEMBLER METAL Home Care Visit [facility] [address] [place] [phone] Geneva Sanchez RN SN - HOME VISIT 05/21/2024 Telephone [facility] [address] [place] [address] Geneva Sanchez RN Home Care 05/21/[address] [facility] [address] [place] [address] Saúlqra Barbara Patricia, DO Results 05/21/2024 Orders Only [facility] [address] [facility] [place] [phone] Sir Valentini Patricia, DO Lab 05/21/2024 Telephone [facility] [address] [facility] [address] [place] [address] Toshia Hooks NP Refill Request 05/17/[address] [facility] [address] [place] [address] Saúlqra Barbara Patricia, DO Refill Request (Fluoxetine) 05/16/[address] [facility] [address] [place] [address] SaúlqSir sheai Patricia, DO Follow Up (Blood sugar / weight ) 05/14/2024 2:00 PM CASKET ASSEMBLER METAL Home Care Visit [facility] [address] [place] [phone] Geneva Sanchez RN SN - HOME VISIT 05/14/[address] [facility] [address] [place] [address] Shaqra, Barbara Patricia, DO return call 05/14/2024 Telephone [facility] [address] [place] [phone] Geneva Sanchez, vault maker 05/14/2024 Orders Only [facility] [address] [place] [phone] Shaqra, Barbara Patricia, DO Lab (Home care) 05/10/[address] [facility] [address] [place] [address] Shaqra, Barbara Patricia, DO Results 05/08/[address] [facility] [address] [place] [address] Shaqra, Barbara Patricia, DO Results 05/07/2024 12:00 PM CASKET ASSEMBLER METAL Home Care Visit [facility] [address] [place] [phone] Malou Griffith LPN DOUGH MOLDER HAND - HOME VISIT 05/07/2024 10:10 AM CASKET ASSEMBLER METAL Phone Office Visit [facility] [address] [facility] [address] [facility] [address] [place], [place] [phone] Nikolai Ibarra MD Consult (Phone visit) 05/07/2024 Travel 05/07/[address] [facility] [address] [place] [address] Shaqra, Barbara Patricia, DO Blood Sugar 05/04/2024 3:00 PM CDT Office Visit [facility] [address] [place] [address] Shaqra, Barbara Patricia, DO ER Follow up (Hypoglycemia ) 05/04/2024 12:15 PM CDT Home Care Visit [facility] [address] [place] [phone] Geneva Sanchez RN SN - HOME VISIT 05/04/2024 Travel 04/30/2024 10:00 AM CDT Home Care Visit [facility] [address] [place] [address], [place] [address] Geneva Sanchez, LOS SN - HOME VISIT 04/27/2024 10:30 AM CDT Home Care Visit [facility] [address] [place] [address] Geneva Sanchez, LOS SN - HOME VISIT 04/27/[address] [facility] [address] [place] [address] Shaq, Barbara Patricia, DO 04/24/2024 9:00 AM CDT Home Care Visit [facility] [address] [place] [phone] Geneva Sanchez RN SN - HOME VISIT 04/21/2024 1:00 PM CDT Home Care Visit [facility] [address] [place] [phone] Geneva Sanchez RN SN - HOME VISIT 04/21/[address] [facility] [address] [place] [address] Shaqra, Barbara Patricia, DO Home Care (Update) 04/20/2024 Telephone [facility] [address] [facility] [address] [place] [phone] Romina Pro, LOS Failed Appointment 04/20/2024 Refill [facility] [address] [place] [address] Toshia Hooks NP Refill Request 04/20/[address] [facility] [address] [place] [address] Shaqra, Barbara Patricia, DO Diabetes (/) 04/17/2024 9:00 AM CDT Home Care Visit [facility] [address] [place] [address] Geneva Sanchez, LOS SN - HOME VISIT 04/17/2024 Telephone [facility] [address] [place] [address] Geneva Sanchez, vault maker 04/16/[address] [facility] [address] [place] [address] Barbara Valentin, Results 04/16/2024 Patient Outreach [facility] Care Management - Care Management Navigation/[facility] [address] [place] [address] [address] [facility] (Care Guide Breast Cancer Screening outreach/) 04/13/2024 11:00 AM CDT Office Visit [facility] [address] [place] [address] Barbara Valentin, Follow Up (Diabetes, home care, medications) 04/13/2024 1:20 AM CDT Home Care Visit [facility] [address] [place] [phone] Coleman Rock RN SN - WOUND/OSTOMY CHART CONSULT 04/13/[address] [facility] [address] [place] [address] Barbara Valentin, Refill Request (need changes/clarificat ion) 04/13/2024 Travel 04/12/2024 9:00 AM CDT Home Care Visit [facility] [address] [place] [phone] Geneva Sanchez RN SN - OASIS START OF CARE 04/12/[address] [facility] [address] [place] [address] Barbara Valentin, DO <No scans attached> 04/12/2024 Telephone [facility] [address] [place] [phone] Geneva Sanchez, vault maker 04/12/2024 Patient Outreach [facility] Care Management - Care Management Navigation/[facility] [address] [place] [address] [address] [facility] (Care Guide Breast Cancer Screening outreach/) 04/12/2024 Plan of Care Documentation [facility] [address] [place] [address] 04/09/2024 Patient Outreach [facility] Care Management - Care Management Navigation/[facility] [address] [place] [address] [address] [facility] (Care Guide Breast Cancer Screening outreach/) 04/09/2024 Home Care Visit [facility] [address] [place] [address] Elvi Meyers RN CARE COORDINATION 04/06/2024 11:25 AM CDT Office Visit [facility] [address] [place] [address] Shaqra, Barbara Patricia, DO Hospital F/U (Hypoglycemia - ER/hospital 03/29, 04/06 ) 04/06/2024 Orders Only [facility] [address] [facility] [address] [place] [address] Nikolai Ibarra MD <No scans attached> 04/06/2024 Travel 04/04/[address] [facility] [address] [place] [address] Shaqra, Barbara Patricia, DO Refill Request (Amlodipine, Omeprazole) 03/27/[address] [facility] [address] [place] [address] Shaqra, Barbara Patricia, DO Questions 03/16/2024 Refill [facility] [address] [facility] [address] [place] [address] Toshia Hooks NP Refill Request 03/14/2024 10:30 AM CDT Home Care Visit [facility] [address] [place] [phone] Geneva Sanchez RN SN - OASIS DISCHARGE 03/12/[address] [facility] [address] [place] [address] Shaqra, Barbara Patricia, DO Refill Request (Pregabalin, Fluoxetine, Duloxetine) 03/06/2024 10:00 AM CDT Home Care Visit [facility] [address] [place] [address] Geneva Sanchez RN SN - HOME VISIT 03/06/2024 9:15 AM CDT Home Care Visit [facility] [address] [facility] [address] Alex Contreras TERMINAL OPERATIONS MANAGER - HOME VISIT 03/03/2024 Home Care Visit [facility] [address] [place] [address] Nitza Riojas LISW CARE COORDINATION from Last [...] Sign Reading Time Taken Comments Blood Pressure 124/64 05/31/2024 11:00 PM CASKET ASSEMBLER METAL Pulse 76 05/31/2024 11:00 PM CASKET ASSEMBLER METAL Temperature 37.3 C (99.2 F) 05/31/2024 5:15 PM CASKET ASSEMBLER METAL Respiratory Rate 20 06/01/2024 12:10 AM CASKET ASSEMBLER METAL Oxygen Saturation 96% 06/01/2024 12:10 AM CASKET ASSEMBLER METAL Inhaled Oxygen Concentration - - Weight 96.2 kg (212 lb) 05/28/2024 2:15 PM CASKET ASSEMBLER METAL Height 152.4 cm (5') 01/12/2024 9:27 PM CDT Body Mass Index 41.4 01/12/2024 9:27 PM CDT Plan of Treatment Upcoming Encounters Date Type Department Care Team (Late st Contact Info) Description 06/04/2024 9:00 AM CASKET ASSEMBLER METAL Home Care Visit [facility] [address] [place] [address] Geneva Sanchez, LOS 06/07/2024 4:00 AM CASKET ASSEMBLER METAL Appointment [facility] [address] [place] [address] Geneva Sanchez, LOS 06/15/2024 3:00 PM CASKET ASSEMBLER METAL Office Visit [facility] [address] [place] [address] Barbara Valentin, [address] [place] [address] 09/07/2024 3:10 PM CASKET ASSEMBLER METAL Phone Office Visit [facility] [address] [facility] [address] [place], [place] [phone] Nikolai Ibarra MD [address] [place] [address] Health Maintenance Due Date Last Done Comments Zoster (shingles) series for age 50+ (1 of 2) 12/19/2011 Pap test for age 21-65 08/17/2015 08/17/2012, 2010 Tetanus booster 08/25/2020 08/25/2010, 12/04, 12/30/2002 Mammogram for age 45-75 04/28/2023 04/28/20, 03/02/2018, 07/26/2013, Additional history exists Influenza for age 50-64 03/04/2024 04/28/20, 04/28/2021, 03/18/2020, Additional history exists Fecal testing sDNA-FIT ([place] guard) for age 45-75 11/10/2024 11/10/2021 Depression [...] history exists Medical Devices Implanted 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 [employer] Device Identifier Shelf Expiration Date Model / Serial / Lot [id number] 2x12mm [[id number]] Implanted:Qty: 1 on 08/08/2008 at [facility] Explanted:at [facility] (Quantity not on file) FITiST [id number]# / [id number] / Stem Compnt Primary 8mm Mini - [id number] Implanted:Qty: 1 on 03/17/2011 at [facility] Right: Shoulder BIOMET [id number]# / / [id number] Head Hum Bio-Mod [id number] - [id number] Implanted:Qty: 1 on 03/17/2011 at [facility] Right: Shoulder BIOMET [id number]# / / [id number] Base Glenoid Hybrid 4mm Sm - [id number] Implanted:Qty: 1 on 03/17/2011 at [facility] Right: Shoulder BIOMET [id number]# / / [id number] Cmnt 1/2 [employer] - [id number] Implanted:Qty: 1 on 03/17/2011 at [facility] Right: Shoulder [employer] 6188-1-01 0# / / [id number] Post Glenoid Hybrid Regenerex - [id number] Implanted:Qty: 1 on 03/17/2011 at [facility] Right: Shoulder BIOMET [id number] # / / [id number] Head Humeral 44x15 Co Cr Biomodular - [id number] Implanted:Qty: 1 on 07/12/2012 at [facility] Left: Shoulder BIOMET [id number]# / / [id number] Shoulder Stem Implanted:Qty: 1 on 07/12/2012 at [facility] Left: Shoulder [id number] / / [id number] Description:SHOULDER STEM Cmnt Bone 1/2 [employer] - [id number] Implanted:Qty: 1 on 07/12/2012 at [facility] Left: Shoulder [employer] 6188-1-01 0# / / [id number] Post Glenoid Hybrid Regenerex - [id number] Implanted:Qty: 1 on 07/12/2012 at [facility] Left: Shoulder BIOMET [id number] # / / [id number] Base Glenoid Hybrid 4mm Sm - [id number] Implanted:Qty: 1 on 07/12/2012 at [facility] Left: Shoulder BIOMET [id number]# / / [id number] Procedures The patient is currently admitted. The information in this section might not be complete until the patient is discharged. Procedure Name Priority Date/Time Associated Diagnosis Comments GLUCOSE METER Timed 06/01/2024 1:05 AM CASKET ASSEMBLER METAL SCAN-CARDIAC STRIP 06/01/2024 12 :01 AM CASKET ASSEMBLER METAL GLUCOSE METER Timed 05/31/2024 11:31 PM CASKET ASSEMBLER METAL GLUCOSE METER Timed 05/31/2024 9:41 PM CASKET ASSEMBLER METAL MRSA/SA PCR Today 05/31/2024 9:24 PM CASKET ASSEMBLER METAL GLUCOSE METER Timed 05/31/2024 7:57 PM CASKET ASSEMBLER METAL XR CHEST 1 VIEW PORTABLE STAT 05/31/2024 7:28 PM CASKET ASSEMBLER METAL TSH RICHARD 05/31/2024 6:31 PM CASKET ASSEMBLER METAL CBC WITH AUTO DIFFERENTIAL Today 05/31/2024 6:31 PM CASKET ASSEMBLER METAL PROCALCITONIN Today 05/31/2024 6:31 PM CASKET ASSEMBLER METAL COMP METABOLIC PANEL Today 05/31/2024 6:31 PM CASKET ASSEMBLER METAL CBC WITH AUTO DIFFERENTIAL Today 05/31/2024 6:31 PM CASKET ASSEMBLER METAL ISTAT EG6+ ABG Timed 05/31/2024 6:03 PM CASKET ASSEMBLER METAL XR CHEST 1 VIEW PORTABLE STAT 05/31/2024 5:26 PM CASKET ASSEMBLER METAL RENAL FUNCTION PANEL Routine 05/21/2024 11:41 AM CASKET ASSEMBLER METAL CKD (chronic kidney disease) stage 4, GFR 15-29 ml/min (HC) HEMOGLOBIN Routine 05/21/2024 11:41 AM CASKET ASSEMBLER METAL CKD (chronic kidney disease) stage 4, GFR [...] HIV 1/2 Add On 07/21/2015 9:40 AM CASKET ASSEMBLER METAL [employer] PROFESSOR THIN PREP PAP SCREEN IMAGED Routine 08/17/2012 4:02 PM CASKET ASSEMBLER METAL Screening for malignant neoplasm of the cervix from Last 3 Months or Most Recently Relevant to Health Maintenance Results * (ABNORMAL) GLUCOSE METER (06/01/2024 1:05 AM CASKET ASSEMBLER METAL) Only the most recent of4 resultswithin the time period is included. GLUCOSE METER 352(H) 65 - 100 mg/dL 06/01/2024 1:05 AM CASKET ASSEMBLER METAL [facility] Blood BLOOD SPECIMEN / Unknown 06/01/2024 1:05 AM CASKET ASSEMBLER METAL 06/01/2024 1:05 AM CASKET ASSEMBLER METAL U Hospitalist [facility] CHEMISTRY Performing Organization Address [facility]/ZIP Co de Phone Number [facility] SENDOUT INTERNAL ZIP [address] [place] [id number] * SCAN-CARDIAC STRIP (06/01/2024 12:01 AM CASKET ASSEMBLER METAL) Scanner OTHER * (ABNORMAL) MRSA/SA PCR (05/31/2024 9:24 PM CASKET ASSEMBLER METAL) Pathologist [facility] MRSA DNA PCR Positive( A) Negative 05/31/2024 11:51 PM CASKET ASSEMBLER METAL [facility] STAPHYLOCOCCUS AUREUS PCR Positive( A) Negative 05/31/2024 11:51 PM CASKET ASSEMBLER METAL [facility] Other SPECIMEN FROM INTERNAL NOSE / Unknown Non-Blood / Unknown 05/31/2024 9:24 PM CASKET ASSEMBLER METAL 05/31/2024 9:35 PM CASKET ASSEMBLER METAL Narrative [facility] - 05/31/2024 11:51 PM CASKET ASSEMBLER METAL A positive test result does not necessarily indicate the presence of viable organisms. It is, however, presumptive for the presence of Methicillin Resistant Staphylococcus aureus (MRSA) or Staphylococcus aureus. Coleman Murphy MD MICROBIOLOGY Performing Organization Address [facility]/ZIP Co de Phone Number [facility] SENDOUT INTERNAL ZIP [phone] [place] [address] * XR CHEST 1 VIEW PORTABLE (05/31/2024 7:28 PM CASKET ASSEMBLER METAL) Only the most recent of2 resultswithin the time period is included. Anatomical Region Laterality Modality HEART, THORAX, CHEST Computed Ra diography 05/31/2024 7:28 PM CASKET ASSEMBLER METAL Impressions 05/31/2024 7:33 PM CASKET ASSEMBLER METAL Tracheostomy. Heart normal in size. Patchy bilateral airspace opacities are noted concerning for pneumonia. Low lung volumes. No large effusion. Bilateral shoulder arthroplasties. Narrative 05/31/2024 7:33 PM CASKET ASSEMBLER METAL For Patients: As a result of the Cures Act, medical imaging exams and procedure reports are released immediately into your electronic medical record. You may view this report before your referring provider. If you have questions, please contact your health care provider. EXAM: XR CHEST 1 VIEW PORTABLE LOCATION: [facility] MEDICAL IMAGING DATE: 05/31/2024 INDICATION: * s/p tracheostomy placement COMPARISON: 05.31.24 Procedure Note Morgan Guzmán MD - 05/31/2024 For Patients: As a result of the Cures Act, medical imagingexams and procedure reports are released immediately into your electronicmedical record. You may view this report before your referring provider.If you have questions, please contact your health care provider. EXAM: XR CHEST 1 VIEW PORTABLE LOCATION: [facility] MEDICAL IMAGING DATE: 05/31/2024 INDICATION: * s/p tracheostomy placement COMPARISON: 05.31.24 IMPRESSION: Tracheostomy. Heart normal in size. Patchy bilateral airspace opacitiesare noted concerning for pneumonia. Low lung volumes. No large effusion.Bilateral shoulder arthroplasties. Coleman Murphy MD GENERAL IMAGI NG * (ABNORMAL) CBC WITH AUTO DIFFERENTIAL (05/31/2024 6:31 PM CASKET ASSEMBLER METAL) WHITE BLOOD COUNT 8.6 4.5 - 11.0 thou/cu mm 05/31/2024 6:44 PM CASKET ASSEMBLER METAL [facility] RED BLOOD COUNT 3.69(L) 4.00 - 5.20 mil/cu mm 05/31/2024 6:44 PM CASKET ASSEMBLER METAL [facility] HEMOGLOBIN 10.5(L) 12.0 - 16.0 g/dL 05/31/2024 6:44 PM [facility] HEMATOCRIT 32.3(L) 33.0 - 51.0 % 05/31/2024 6:44 PM [facility] MCV 88 80 - 100 fL 05/31/2024 6:44 PM [facility] MCH 28.5 26.0 - 34.0 pg 05/31/2024 6:44 PM [facility] MCHC 32.5 32.0 - 36.0 g/dL 05/31/2024 6:44 PM [facility] RDW 14.7 11.5 - 15.5 % 05/31/2024 6:44 PM [facility] PLATELET COUNT 255 140 - 440 thou/cu mm 05/31/2024 6:44 PM [facility] MPV 11.0 6.5 - 11.0 fL 05/31/2024 6:44 PM [facility] NRBC 0.0 % 05/31/2024 6:44 PM [facility] ABS NRBC 0.0 thou /cu mm 05/31/2024 6:44 PM [facility] % NEUT 96.3 % 05/31/2024 6:44 PM [facility] % LYMPH 2.8 % 05/31/2024 6:44 PM [facility] % MONO 0.5 % 05/31/2024 6:44 PM [facility] % EOS 0.0 % 05/31/2024 6:44 PM [facility] % BASO 0.1 % 05/31/2024 6:44 PM [facility] % IMMATURE GRAN (METAS,MYELOS,NH OS) 0.3 % 05/31/2024 6:44 PM [facility] ABSOLUTE NEUTROPHILS 8.3(H) 1.7 - 7.0 thou/cu mm 05/31/2024 6:44 PM [facility] ABSOLUTE LYMPHOCYTES 0.2(L) 0.9 - 2.9 thou/cu mm 05/31/2024 6:44 PM [facility] ABSOLUTE MONOCYTES 0.0 <0.9 thou/cu mm 05/31/2024 6:44 PM [facility] ABSOLUTE EOSINOPHILS 0.0 <0.5 thou/cu mm 05/31/2024 6:44 PM [facility] ABSOLUTE BASOPHILS 0.0 <0.3 thou/cu mm 05/31/2024 6:44 PM CASKET ASSEMBLER METAL [facility] ABSOLUTE IMMATURE GRANULOCYTES(MET ,MYELOS,PROS) 0.0 <0.3 thou/cu mm 05/31/2024 6:44 PM CASKET ASSEMBLER METAL [facility] Blood BLOOD SPECIMEN / Unknown Butterfly / Unknown 05/31/2024 6:31 PM CASKET ASSEMBLER METAL 05/31/2024 6:36 PM CASKET ASSEMBLER METAL Coleman Murphy MD HEMATOLOGY [facility] SENDOUT INTERNAL ZIP [address] [address] [place] [address] * (ABNORMAL) PROCALCITONIN (05/31/2024 6:31 PM CASKET ASSEMBLER METAL) PROCALCITONIN 1.72(H) ng/ml 05/31/2024 7:12 PM CASKET ASSEMBLER METAL [facility] Blood BLOOD SPECIMEN / Unknown Butterfly / Unknown 05/31/2024 6:31 PM CASKET ASSEMBLER METAL 05/31/2024 6:36 PM CASKET ASSEMBLER METAL Narrative [facility] - 05/31/2024 7:12 PM CASKET ASSEMBLER METAL Procalcitonin for initial assessment of Lower Respiratory Tract Infection: Results Interpretation <0.10 ng/mL Antibiotic therapy strongly discoraged. Indicates absent of bacterial infection. * 0.10 - 0.25 ng/mL Antibiotic therapy discouraged. Bacterial infection unlikely. * 0.26 - 0.50 ng/mL Antibiotic therapy encouraged. Bacterial infection possible. >0.50 ng/mL Antibiotic therapy strongly encouraged. Suggestive of presence of bacterial infection. *Antibiotic therapy should be considered regardless of PCT result if the patient is clinically unstable, is at high risk for adverse outcome, has strong evidence of bacterial pathogen, or the clinical context indicates antibiotic therapy is warranted. If antibiotics are withheld, reassess if symptoms persist/worsen and/or repeat PCT measurement within 6-24 hours. In order to assess treatment success and to support a decision to discontinue antibiotic therapy, follow up samples should be tested once every 1-2 days, based upon physician discretion taking into account patient's evolution and progress. Procalcitonin for initial assessment of severe sepsis risk: Results Interpretation <0.5 ng/ml A PCT level below 0.5 ng/ml on the first day of ICU admission is associated with a low risk for progression to severe sepsis and/or septic shock. > 2.0 ng/mL A PCT level above 2.0 ng/mL on the first day of ICU admission is associated with a high risk for progression to severe sepsis and/or septic shock. Note: Concentrations < 0.5 ng/mL do not exclude an infection, on account of localized infections (without systemic signs) which can be associated with such low concentrations, or a systemic infection in its initial stages(< 6 hours). Furthermore, increased procalcitonin can occur without infection. PCT concentrations between 0.5 and 2.0 ng/mL should be interpreted taking into account the patient's history. It is recommended to retest PCT within 6-24 hours if any concentrations < 2 ng/mL are obtained. Coleman Murphy MD SEND OUTS Performing Organization Address [facility] Co de Phone Number [facility] SENDOUT INTERNAL ZIP [phone] [place] [address] * (ABNORMAL) TSH (05/31/2024 6:31 PM CASKET ASSEMBLER METAL) TSH 0.17(L) 0.27 - 4.20 uIU/mL 05/31/2024 7:37 PM CASKET ASSEMBLER METAL [facility] Blood BLOOD SPECIMEN / Unknown Butterfly / Unknown 05/31/2024 6:31 PM CASKET ASSEMBLER METAL 05/31/2024 6:36 PM CASKET ASSEMBLER METAL [facility] - 05/31/2024 7:37 PM CASKET ASSEMBLER METAL In Adults, TSH values between 5.00 and 10.00 uIU/ml do not necessarily indicate the presence of Hypothyroidism. Correlation with clinical findings such as presence of goiter and/or Thyroperoxidase (TPO) Antibody may be helpful. For more information please refer to TRES 2004; 291: 228-238. Reece Dhaliwal MD CHEMISTRY Performing Organization Address [facility]/ZIP Co de Phone Number [facility] SENDOUT INTERNAL ZIP [phone] [place] [address] * (ABNORMAL) COMP METABOLIC PANEL (05/31/2024 6:31 PM CASKET ASSEMBLER METAL) SODIUM 136 136 - 145 mmol/L 05/31/2024 7:08 PM [facility] POTASSIUM 5.0 3.5 - 5.1 mmol/L 05/31/2024 7:08 PM [facility] CHLORIDE 97(L) 98 - 107 mmol/L 05/31/2024 7:08 PM [facility] CO2,TOTAL 21(L) 22 - 29 mmol/L 05/31/2024 7:08 PM [facility] ANION GAP 18 5 - 18 05/31/2024 7:08 PM [facility] GLUCOSE 504(HH) 70 - 99 mg/dL 05/31/2024 7:08 PM [facility] CALCIUM 8.6(L) 8.8 - 10.4 mg/dL 05/31/2024 7:08 PM [facility] Comment: Reference ranges for this test were updated on 05/08/2024 to reflect our healthy population more accurately. Reference range changes are not retroactively applied to results, but previous results using the same methodology can be interpreted in the context of the new reference range. BUN 47(H) 8 - 23 mg/dL 05/31/2024 7:08 PM [facility] CREATININE 2.74(H) 0.50 - 0.90 mg/dL 05/31/2024 7:08 PM [facility] BUN/CREAT RATIO 17 10 - 20 7:08 PM [facility] eGFR 19(L) >90 mL/min/1. 73m2 05/31/2024 7:08 PM [facility] Comment:As of 2021, eG FR is calculated by the CKD-EPI creatinine equation without race adjustment. eGFR can be influenced by muscle mass, exercise, and diet. The reported eGFR is an estimation only and is only applicable if the renal function is stable. ALBUMIN 3.2(L) 4.0 - 4.9 g/dL 05/31/2024 7:08 PM [facility] PROTEIN,TOTAL 7.1 6.0 - 8.0 g/dL 05/31/2024 7:08 PM [facility] BILIRUBIN,TOTAL 0.3 0.0 - 1.2 mg/dL 05/31/2024 7:08 PM [facility] ALK PHOSPHATASE 106(H) 35 - 104 IU/L 05/31/2024 7:08 PM [facility] ALT (SGPT) 17 10 - 35 IU/L 05/31/2024 7:08 PM [facility] AST (SGOT) 24 10 - 35 IU/L 05/31/2024 7:08 PM [facility] Blood BLOOD SPECIMEN / Unknown Butterfly / Unknown 05/31/2024 6:31 PM CASKET ASSEMBLER METAL 05/31/2024 6:36 PM [facility] Coleman Murphy MD CHEMISTRY [facility] SENDOUT INTERNAL ZIP [phone] [place] [address] * (ABNORMAL) ISTAT EG6+ ABG (05/31/2024 6:03 PM [facility]) PH, ARTERIAL 7.36 7.35 - 7.45 05/31/2024 6:06 PM [facility] PCO2, ARTERIAL 43 32 - 45 mmHg 05/31/2024 6:06 PM [facility] PO2, ARTERIAL 75(L) 83 - 108 mmHg 05/31/2024 6:06 PM [facility] HCO3, ARTERIAL 24 21 - 28 mmol/L 05/31/2024 6:06 PM [facility] BASE EXCESS, ARTERIAL -1.0 -2.0 - 3.0 05/31/2024 6:06 PM [facility] O2 SATURATION, ARTERIAL 94 94 - 98 % 05/31/2024 6:06 PM [facility] SODIUM, POCT 05/31/2024 6:06 PM [facility] Comment:Unable to determine. POTASSIUM, POCT 6:06 PM [facility] Comment:Unable to determine. INSPIRED O2,ISTAT 40.0 05/31/2024 6:06 PM [facility] PATIENT TEMPERATURE 37.3 Degrees C 05/31/2024 6:06 PM [facility] ESTEBAN'S TEST Not Given 05/31/2024 6:06 PM [facility] SAMPLE TYPE,ISTAT BLOOD GAS ARTERIAL 05/31/2024 6:06 PM [facility] Blood BLOOD SPECIMEN / Unknown 05/31/2024 6:03 PM CASKET ASSEMBLER METAL 05/31/2024 6:06 PM CASKET ASSEMBLER METAL U Hospitalist [facility] CHEMISTRY [facility] SENDOUT INTERNAL ZIP [phone] [place] [address] * (ABNORMAL) HEMOGLOBIN (05/21/2024 11:41 AM CASKET ASSEMBLER METAL) HEMOGLOBIN 10.2(L) 12.0 - 16.0 g/dL 05/21/2024 12:53 PM [facility] MCV 89 80 - 100 fL 05/21/2024 12:53 PM [facility] Blood BLOOD SPECIMEN / Unknown Butterfly / Unknown 05/21/2024 11:41 AM CASKET ASSEMBLER METAL 05/21/2024 12:45 PM CASKET ASSEMBLER METAL Narrative [facility] - 05/21/2024 12:53 PM CASKET ASSEMBLER METAL This procedure was originally ordered at [facility]. Barbara Valentin DO HEMATOLOGY [facility] [address] [place], [place] [id number] * (ABNORMAL) RENAL FUNCTION PANEL (05/21/2024 11:41 AM CASKET ASSEMBLER METAL) SODIUM 139 136 - 145 mmol/L 05/21/2024 2:04 PM [facility] POTASSIUM 4.4 3.5 - 5.1 mmol/L 05/21/2024 2:04 PM [facility] CHLORIDE 96(L) 98 - 107 mmol/L 05/21/2024 2:04 PM [facility] CO2,TOTAL 27 22 - 29 mmol/L 05/21/2024 2:04 PM [facility] ANION GAP 16 5 - 18 05/21/2024 2:04 PM [facility] GLUCOSE 318(H) 70 - 99 mg/dL 05/21/2024 2:04 PM [facility] CALCIUM 9.2 8.8 - 10.4 mg/dL 05/21/2024 2:04 PM [facility] Comment: Reference ranges for this test were updated on 05/08/2024 to reflect our healthy population more accurately. Reference range changes are not retroactively applied to results, but previous results using the same methodology can be interpreted in the context of the new reference range. BUN 48(H) 8 - 23 mg/dL 05/21/2024 2:04 PM [facility] CREATININE 3.15(H) 0.50 - 0.90 mg/dL 05/21/2024 2:04 PM [facility] BUN/CREAT RATIO 15 10 - 20 2:04 PM [facility] eGFR 16(L) >90 mL/min/1. 73m2 05/21/2024 2:04 PM [facility] Comment:As of 2021, eG FR is calculated by the CKD-EPI creatinine equation without race adjustment. eGFR can be influenced by muscle mass, exercise, and diet. The reported eGFR is an estimation only and is only applicable if the renal function is stable. PHOSPHORUS 4.8(H) 2.5 - 4.5 mg/dL 05/21/2024 2:04 PM [facility] ALBUMIN 3.6(L) 4.0 - 4.9 g/dL 05/21/2024 2:04 PM [facility] Blood BLOOD SPECIMEN / Unknown Butterfly / Unknown 05/21/2024 11:41 AM CASKET ASSEMBLER METAL 05/21/2024 12:45 PM CASKET ASSEMBLER METAL Barbara Valentin DO CHEMISTRY [facility] [address] [place] [address] * (ABNORMAL) PRO-BNP (05/04/2024 4:09 PM CDT) NT PROBNP 362(H) <125 pg/mL [facility] Blood BLOOD SPECIMEN / Unknown 05/04/2024 4:09 PM CDT 05/04/2024 4:09 PM CDT Barbara Patricia Barbie DO SEND OUTS [facility] [place] [address] [phone], [facility] [address] [place] [address] * (ABNORMAL) BASIC METABOLIC PANEL (05/04/2024 4:09 PM CDT) Only the most recent of2 resultswithin the time period is included. [facility] GLUCOSE 83 65 - 99 mg/dL [facility] [...] PM CDT 05/04/2024 4:09 PM CDT Barbara Patricia Barbie [facility] CHEMISTRY [employer] [facility] [address] [place] [address], [place] [phone] [employer] [address] [place] [address] * XR MAMMO BILAT SCREENING (04/28/2022 2:04 [...] health care provider. XR MAMMO BILAT SCREENING [[id number]] CLINICAL HISTORY: This is an asymptomatic 61 y.o. patient. INDICATION FOR EXAM: Mammogram Screening. TECHNIQUE: CC & MLO views were obtained. This study was evaluated with the assistance of Computer-Aided Detection. COMPARISON FILM: Yes 03/02/18 [facility] 07[facility]26/13 [facility] FINDINGS: The breasts are extremely dense, which lowers the sensitivity of mammography. There are no dominant masses, suspicious micro calcifications or areas of architectural distortion. Shania Montiel MD MAMMO * LIPID PANEL W REFLEX MEASURED LDL (04/28/2022 1:44 PM CDT) CHOLESTEROL,TOTAL 139 100 - 199 mg/dL 04/30/2022 6:25 PM CDT [facility] TRAL LABORATORY TRIGLYCERIDES 141 <150 mg/dL 04/30/2022 6:25 PM CDT [facility] TRAL [facility] HDL CHOLESTEROL 42 >40 mg/dL 6:25 PM CDT [facility] TRAL LABORATORY NON-HDL CHOLESTEROL 97 <145 mg/dl 04/30/2022 6:25 PM CDT [facility] TRAL LABORATORY CHOL/HDL RATIO 3.31 <4.50 04/30/2022 6:25 PM CDT [facility] TR[facility] LDL CHOLESTEROL 69 <=130 mg/dL 04/30/2022 6:25 PM CDT [facility] TRAL LABOR[facility] VLDL CHOLESTEROL 28 <=30 mg/dL 04/30/2022 6:25 PM CDT [employer] [facility] [facility] PROVIDER ORDERED STATUS RANDOM 04/30/2022 6:25 PM CDT [facility] Blood BLOOD SPECIMEN / Unknown Venipuncture / Unknown 04/28/2022 1:44 PM CDT 04/28/2022 1:45 PM CDT Shania Montiel MD CHEMISTRY Performing Organization Address City/[facility]/ZIP Co de Phone Number [facility] [address] [place] [address], * FECAL DNA (AKA COLOGUARD) (11/10/2021 1:00 PM CDT) Shania Montiel MD COMMUNICATION ORD * ANTI HCV [50450.2] (02/16/2018 4:20 PM CDT) HEPATITIS C ANTIBODY Non-React alex Non-React alex 02/17/2018 2:48 PM CDT [facility] Comment:Antibodies to HCV no t detected; does not exclude the possibility of exposure to HCV. Blood BLOOD SPECIMEN / Unknown Butterfly / Unknown 02/16/2018 4:20 PM CDT 02/16/2018 4:20 PM CDT Coleman Plata MD SEND OUTS Performing Organization Address City/[facility]/ZIP Co de Phone Number [facility] [address] [place] [address], * HIV 1&2 TODAY (07/21/2015 9:40 AM CASKET ASSEMBLER METAL) HIV-1/HIV-2 ANTIBODY Non-Reacti ve Non-Reacti ve 07/21/2015 10:31 AM CASKET ASSEMBLER METAL [facility] Blood specimen (specimen) BLOOD SPECIMEN / Unknown Venipuncture / Unknown 07/21/2015 9:40 AM CASKET ASSEMBLER METAL 07/21/2015 9:47 AM CASKET ASSEMBLER METAL Narrative [facility] - 07/21/2015 10:31 AM CASKET ASSEMBLER METAL HIV-1 p24 and HIV-1/HIV-2 Ab not detected Kait Morales DO SEND OUTS [facility] [address] [place] [address], [place] * [employer]ATION BIOLOGY PROFESSOR THIN PREP PAP SCREEN IMAGED (08/17/2012 4:02 PM CASKET ASSEMBLER METAL) CYTOLOGY CYTOPATHOLOGY REPORT [facility] [employer]/[facility] Status: Final Status [id number] CLINICAL INFORMATION Last Date of LMP :07/03/2012 Last Pap Date :02/01/2011 Last Pap Result :NIL ABN Friendship/Bx Past 5 YRS :None Hormone Usage :BCP/OCP/Patch/Rin g Menstrual Status :Regular Periods Friendship/Bx done today :No Additional Information :None given [...] malignant lesions. COLLECTED:08/17/12 ACCESSIONED: 08/18/12 SIGNED: 08/21/12 [facility] PAP [place] CODE NIL [facility] Tissue specimen (specimen) (Cervical/Vagina l) 08/17/2012 4:02 PM CASKET ASSEMBLER METAL 08/17/2012 4:00 PM CASKET ASSEMBLER METAL Coleman Plata MD PATHOLOGY/CYTOLOGY [facility] INTERNAL ZIP [address] [place] [phone] from Last 3 Months or Most Recently Relevant to Health Maintenance Additional Health Concerns Infection Onset Date Last Indicated Resolved Time MRSA Comment:Order Contact Precautions. 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 care, receiving hemodialysis, has chronic open wounds/skin damage, has long-term percutaneous indwelling medical devices Exclusions for nares collection (if <12 months since positive culture) include all of the previous exclusions plus patients on antibiotics 7 days prior to collection 01/17/2024 05/31/2024 Advance Directives * Full Code (Latest Code Status on File) Date Activated Date Inactivated Comments 05/31/2024 7:05 PM Question Answer Comments Code Status Discussion: Reviewed Preferences * Full Code Date Activated Date Inactivated Comments 05/29/2024 7:35 AM 05/31/2024 4:58 PM * Full Code Date Activated Date Inactivated Comments 01/12/2024 9:15 PM 01/17/2024 7:35 PM Question Answer Comments Code Status Discussion: Reviewed Preferences * Full Code Date Activated Date Inactivated Comments 01/02/2019 1:28 AM 01/04/2019 4:49 PM Question Answer Comments Code Status Discussion: Not Discussed * Full Code Date Activated Date Inactivated Comments 06/10/2017 10:37 PM 06/16/2017 3:36 PM Care Teams Certified Surgical First Assistant Relationship Specialty Start Date End Date Barbara Valentin DO [address] [place] [address] PCP - General Family Practice 11/15/22 Julio Ibrahim MD [address] [place] [address] [id number] Surgery - Orthopedics 02/01/11 Chuy Doss MD [address] [place] [id number] Surgery - Vascular 02/01/11 Markel Strong MD [address] [place] [address] Provider Family Practice 08/08/20 Nikolai Ibarra MD [address] [place] [address] Endocrinology 09/07/22 [facility] [address] [place] [address] 04/07/24 Toshia Hooks NP [address] [place] [address] Pain Management Nurse Practitioner - Adult 05/21/24 Suad Ng/ [employer] Center Architect 07/14/17 [facility] Home Health Nurse 07/01/17 [facility] [employer] Services Home Health Aide 07/14/17 [facility] Marketing Clerk/ Ally Christianson [address] [place], [place] [id number] Data Center Architect 07/07/17
== END 2024-05-31 12:37 | disposition home or self-care (01) ==
LOC: AMB 06-01 01:29
PROVIDERS: PCP Family Medicine; Visit Provider Family Medicine
DX: R55 Syncope and collapse (principal); R22.0 Localized swelling, mass and lump, head
CPT/HCPCS: A0425; A0427

== ENCOUNTER 2024-05-31 13:02 | Day surgery (SDC) | payer OTHER, SELFPAY ==
[2024-05-31] VITALS (16 sets, daily range): BP systolic 118–186; BP diastolic 55–117; PULSE 118–125; RESP 20; TEMP 37.4; O2SAT 92–99; BMI 45.3
[2024-05-31] MEDS: EPINEPHrine 0.3 MG PEN IM (13:23)
--- NOTE | 2024-05-31 13:24 | CRLHL7_ITS ---
For Patients: As a result of the Century Cures Act, medical imaging exams and procedure reports are released immediately into your electronic medical record. You may view this report before your referring provider. If you have questions, please contact your health care provider. INDICATION: Post intubation. COMPARISON: 03/16/2024 TECHNIQUE: One view (2 images) FINDINGS: On image 1, there is a right mainstem intubation. On image 2, the endotracheal tube has been pulled back to the level of the orifice of the right mainstem bronchus. Tube can be pulled back further, between 2 and 3 cm to bring it above the level of the mandy. Otherwise, the patient is rotated leftward. Peripheral left midlung subsegmental atelectasis. Right shoulder hemiarthroplasty. IMPRESSION: : 1. On image 2, the endotracheal tube has been pulled back to the level of the orifice of the right mainstem bronchus. Tube can be pulled back further, between 2 and 3 cm to bring it above the level of the mandy. 2. Incidental findings as above. Dictated by Carlos Ling MD @ 05/31/2024 3:48:53 PM (Electronically Signed)
[2024-05-31] MEDS: NALOXONE 1 MG/ML SYRINGE 0.5 MG IV (13:25)
[2024-05-31] MEDS: 0.9 % SODIUM CHLORIDE 500 ML 500 ML IV (13:25)
--- OUTSIDE RECORDS SUMMARY | 2024-05-31 13:29 | XMS_ITS | Encounter Summary ---
Author Organization [facility] Address [address] [place] [address] Care Team Providers Care Care Program Resident Name Role Phone Barbara Valentin DO Primary Care Provider [phone] Encounter Details Date Type Department Care Team (Late st Contact Info) Description 05/12/2024 Orders Only [facility] [place] [address] Gabriel Hicks MD [address] [place] [address] Chronic kidney disease, stage 4 [...] (HCC) documented in this encounter Care Teams Care Program Resident Relationship Specialty Start Date End Date Barbara Valentin DO [address] [place] [address] PCP - General Family Medicine 09/22/23 documented as of this encounter
--- OUTSIDE RECORDS SUMMARY | 2024-05-31 13:29 | XMS_ITS | Clinical Summary ---
Author Organization [employer] [facility] s & [facility] Address [place], [place] [address] Care Team Providers Care Digital Manager Name Role Phone Julio Ibrahim MD Unavailable Chuy Doss MD Unavailable [phone] Markel Strong MD Unavailable Nikolai Ibarra MD Unavailable [phone] Barbara Valentin Patricia DO Primary Care Provider [phone] [facility] Toshia Hooks NP Unavailable Allergies Active [...] nasal solution (FLONASE)Indicati ons:Nasal congestion Inhale 1 [place] into affected nostril(s) once daily. Inhale 1 [place] in the nostril(s) once daily. 16 g [...] continuous glucose monitor READER (FreeStyle Elli 2 [place])Indication s:Type 1 diabetes mellitus with other specified complication (HC) To be used to read blood sugars per voice network engineer's directions. 1 Each 05/19/20 23 Active blood-glucose [...] be used to read blood sugars per voice network engineer's directions. 6 Each 3 09/06/19 24 Active [...] Chronic, continuous use of opioids Inhale 1 [place] into affected nostril(s) each time if needed [...] mellitus at risk of hypoglycemia Inhale 1 [place] into affected nostril(s) each time if needed [...] units / day 15 mL 3 04/16/20 Active blood sugar diagnostic (Blood Glucose Test) stripIndications: Type 1 diabetes mellitus with other specified complication (HC) Test 4 times per day. 400 Each 3 04/27/20 Active glucose 4 gram chewable tabletIndications :Brittle diabetes (HC),Diabetes mellitus type 1 with complications (HC) Chew 1 Tablet (4 g) by mouth each time if needed for Blood Gluc < 60 mg/dL. 60 Tablet 3 05/04/20 Active FLUoxetine (PROZAC) 10 mg capsuleIndication s:Moderate episode of recurrent major depressive disorder (HC) TAKE 1 CAPSULE (10 MG) BY MOUTH ONCE DAILY. 90 Capsule 1 05/20/20 Active oxyCODONE (ROXICODONE) 5 mg immediate release tabletIndications :Chronic pain syndrome,Neuropat hy due to secondary diabetes (HC) Si p.o. B.I.D. / PRN For O.A. pain or Diabetic P.N. Pain ; max: 2 a day. Use dates: 05/21/24-06/19/24 60 Tablet 05/21/20 Active FLUoxetine (PROZAC) 10 mg capsuleIndication s:Moderate [...] day. Use dates: 04/21/24-05/20/24 60 Tablet 04/20/20 24 024 Discontinued(Re order (E-cancel not sent)) ciprofloxacin (CIPRO) 250 mg tablet Take 250 mg by mouth two times daily before meals. 05/18/20 24 024 Active Problems Patient Care Coordination [...] agreement signed - 10/07/23 10/07/2023 Overview (10/07/2023): [facility] Noemí Dennis .................... 10/07/2023 4:39 [...] which led to extended stay in intermediate care 07/2015- 05/2017 Hospitalized with ketoacidosis 06/2017 [...] total right knee replacement 01/02/2015 06/10/2017 intermediate (current) use of anticoagulants 11/27/2013 12/28/2013 Anticoagulation [...] Encounters Date Type Department Care Team Description 05/31/2024 1:24 PM SAMPLE WEAVER Hospital Encounter [facility] [address] [place] [address] s, U Hospitalist [facility] 05/28/2024 2:00 PM SAMPLE WEAVER Home Care Visit [facility] [address] [place] [phone] Geneva Sanchez RN SN - HOME VISIT 05/21/2024 11:30 AM SAMPLE WEAVER Home Care Visit [facility] [address] [place] [phone] Geneva Sanchez, RN SN - HOME VISIT 05/21/2024 Telephone [facility] [address] [place] [phone] Geneva Sanchez, chief port director 05/21/2024 Telephone [facility] [address] [place] [address] Shaqra Barbara Patricia, DO Results 05/21/2024 Orders Only [facility] [address] [place] [phone] Shaqra, Barbara Patricia, DO Lab 05/21/2024 Telephone [facility] [address] [address] Toshia Hooks NP Refill Request 05/17/2024 Refill [facility] [address] [place] [address] SaúlqraSiri Patricia, DO Refill Request (Fluoxetine) 05/16/2024 Telephone [facility] [address] [place] [address] Saúlqra Barbara Patricia, DO Follow Up (Blood sugar / weight ) 05/14/2024 2:00 PM SAMPLE WEAVER Home Care Visit [facility] [address] [place] [address] Geneva Sanchez, RN SN - HOME VISIT 05/14/2024 Telephone [facility] [address] [place] [address] Saúlqra Barbara Patricia, DO return call 05/14/2024 Telephone [facility] [address] [place] [phone] Geneva Sanchez, chief port director 05/14/2024 Orders Only [facility] [address] [place] [phone] Saúlqra Barbara Patricia, DO Lab (Home care) 05/10/2024 Telephone [facility] [address] [place] [address] Shaqra Barbara Patricia, DO Results 05/08/2024 Telephone [facility] [address] [place] [address] Saúlqra, Barbara Patricia, DO Results 05/07/2024 12:00 PM SAMPLE WEAVER Home Care Visit [facility] [address] [place] [address] Malou Griffith LPN RESIDENT ENGINEER - HOME VISIT 05/07/2024 10:10 AM SAMPLE WEAVER Phone Office Visit [facility] [address] [facility] [address] [facility] [phone] Nikolai Ibarra MD Consult (Phone visit) 05/07/2024 Travel 05/07/2024 Telephone [facility] [address] [place] [address] Shaqra, Barbara Patricia, DO Blood Sugar 05/04/2024 3:00 PM CDT Office Visit [facility] [address] [place] [address] Shaqra, Barbara Patricia, DO ER Follow up (Hypoglycemia ) 05/04/2024 12:15 PM CDT Home Care Visit [facility] [address] [place] [address] Geneva Sanchez RN SN - HOME VISIT 05/04/2024 Travel 04/30/2024 10:00 AM CDT Home Care Visit [facility] [address] [place] [address] Geneva Sanchez, LOS SN - HOME VISIT 04/27/2024 10:30 AM CDT Home Care Visit [facility] [address] [place] [phone] Geneva Sanchez, RN SN - HOME VISIT 04/27/2024 Telephone [facility] [address] [place] [address] Shaqra Barbara Patricia, DO 04/24/2024 9:00 AM CDT Home Care Visit [facility] [address] [place] [phone] Geneva Sanchez RN SN - HOME VISIT 04/21/2024 1:00 PM CDT Home Care Visit [facility] [address] [place] [phone] Geneva Sanchez, LOS SN - HOME VISIT 04/21/2024 Telephone [facility] [address] [place] [address] Barbara Valentin, DO Home Care (Update) 04/20/2024 Telephone [facility] [address] [place] [id number] Romina Pro RN Failed Appointment 04/20/2024 Refill [facility] [address] [address] Toshia Hooks NP Refill Request 04/20/2024 Telephone [facility] [address] [place] [address] Barbara Valentin, DO Diabetes (/) 04/17/2024 9:00 AM CDT Home Care Visit [facility] [address] [place] [phone] Geneva Snachez, LOS SN - HOME VISIT 04/17/2024 Telephone [facility] [address] [place] [phone] Geneva Sanchez, chief port director 04/16/2024 Telephone [facility] [address] [place] [address] Barbara Valentin, DO Results 04/16/2024 Patient Outreach [facility] Care Management - Care Management Navigation/[facility] [address] [place] [address] Aide Rolon [facility] (Care Guide Breast Cancer Screening outreach/) 04/13/2024 11:00 AM CDT Office Visit [facility] [address] [place] [address] Barbara Valentin, DO Follow Up (Diabetes, home care, medications) 04/13/2024 1:20 AM CDT Home Care Visit [facility] [address] [place] [phone] Coleman Rock, RN SN - WOUND/OSTOMY CHART CONSULT 04/13/2024 Refill [facility] [address] [place] [address] Barbara Valentin, Refill Request (need changes/clarificat ion) 04/13/2024 Travel 04/12/2024 9:00 AM CDT Home Care Visit [facility] [address] [place] [phone] Geneva Sanchez, LOS SN - OASIS START OF CARE 04/12/2024 Orders Only [facility] [address] [facility] [id number] Barbara Valentin, DO <No scans attached> 04/12/2024 Telephone [facility] [address] [place] [address] Geneva Sanchez RN Home Care 04/12/[address] [facility] Management - Care Management Navigation/[facility] [address] [place] [address] [facility] (Care Guide Breast Cancer Screening outreach/) 04/12/2024 Plan of Care Documentation [facility] [address] [place] [phone] 04/09/[address] [facility] Management - Care Management Navigation/[facility] [address] [place] [address] [facility] (Care Guide Breast Cancer Screening outreach/) 04/09/2024 Home Care Visit [facility] [address] [place] [phone] Elvi Meyers RN CARE COORDINATION 04/06/2024 11:25 AM CDT Office Visit [facility] [address] [place] [address] Barbara Valentin, DO Hospital F/U (Hypoglycemia - ER/hospital 03/29, 04/06 ) 04/06/2024 Orders Only [facility] [address] [facility] 300 [address] Nikolai Ibarra MD <No scans attached> 04/06/2024 Travel 04/04/2024 Refill [facility] [address] [place] [address] Shaqra, Barbara Patricia, DO Refill Request (Amlodipine, Omeprazole) 03/27/2024 Telephone [facility] [address] [place] [address] Shaqra, Barbara Patricia, DO Questions 03/16/2024 Refill [facility] [address] [address] Toshia Hooks NP Refill Request 03/14/2024 10:30 AM CDT Home Care Visit [facility] [address] [place] [address] Geneva Sanchez, LOS SN - OASIS DISCHARGE 03/12/2024 Refill [facility] [address] [place] [address] Saúlqra, Barbara Patricia, DO Refill Request (Pregabalin, Fluoxetine, Duloxetine) 03/06/2024 10:00 AM CDT Home Care Visit [facility] [address] [place] [phone] Geneva Sanchez, RN SN - HOME VISIT 03/06/2024 9:15 AM CDT Home Care Visit [facility] [address] [place] [phone] Alex Contreras CHAIR FINISHER - HOME VISIT 03/03/2024 Home Care Visit [facility] [address] [place] [phone] Nitza Riojas LISW CARE COORDINATION from Last 3 Months Immunizations Name Administration Dates Next Due AMB Influenza, IIV3 (Age >=3 years)(Flu Clinic Only) 05/17/2013,05/06/2010 COVID-19 VACCINE SPIKEVAX (M [place] 50MCG/0.5ML) 12YO+ PFS 04/06/2024 COVID-19 vaccine (Pfizer-Bio NTech 30mcg/0.3mL) 12YO+ BIVALENT PF, MDV 04/28/2022 COVID-19 vaccine (BlueWhale NTManymoon 30mcg/0.3mL) PF, MDV 06/23/2021 Hepatitis B (Adult) [...] Sign Reading Time Taken Comments Blood Pressure 162/79 05/28/2024 2:15 PM SAMPLE WEAVER Pulse 95 05/28/2024 2:15 PM SAMPLE WEAVER Temperature 36.7 C (98.1 F) 05/28/2024 2:15 PM SAMPLE WEAVER Respiratory Rate 18 05/28/2024 2:15 PM SAMPLE WEAVER Oxygen Saturation 93% 05/28/2024 2:15 PM SAMPLE WEAVER Inhaled Oxygen Concentration - - Weight 96.2 kg (212 lb) 05/28/2024 2:15 PM SAMPLE WEAVER Height 152.4 cm (5') 01/12/2024 9:27 PM CDT Body Mass Index 41.4 01/12/2024 9:27 PM CDT Plan of Treatment Upcoming Encounters Date Type Department Care Team (Late st Contact Info) Description 06/04/2024 9:00 AM SAMPLE WEAVER Home Care Visit [facility] [address] [place] [phone] Geneva Sanchez, LOS 06/07/2024 4:00 AM SAMPLE WEAVER Appointment [facility] [address] [place] [phone] Geneva Sanchez, LOS 06/15/2024 3:00 PM SAMPLE WEAVER [address] [address] Barbie Barbaraesteban Gomez, DO [address] [place] [address] 09/07/2024 3:10 PM SAMPLE WEAVER Phone Office Visit [facility] [address] [place] [address] [address] Nikolai Ibarra MD [address] [place] [address] Health Maintenance Due Date Last Done Comments Zoster (shingles) series for age 50+ (1 of 2) 12/19/2011 Pap test for age 21-65 08/17/2015 08/17/2012, 2010 Tetanus booster 08/25/2020 08/25/2010, 12/04, 12/30/2002 Mammogram for age 45-75 04/28/2023 04/28/20, 03/02/2018, 07/26/2013, Additional history exists Influenza for age 50-64 03/04/2024 04/28/20, 04/28/2021, 03/18/2020, Additional history exists Fecal testing sDNA-FIT ([place] guard) for age 45-75 11/10/2024 11/10/2021 Depression [...] history exists Medical Devices Implanted Type Area Auditor Appraiser Device Identifier Shelf Expiration Date Model / Serial / Lot [id number] 2x12mm [[id number]] Implanted:Qty: 1 on 08/08/2008 at [facility] Explanted:at [facility] (Quantity not on file) [facility] [employer] [id number]# / [id number] / Stem Compnt Primary 8mm Mini - [id number] Implanted:Qty: 1 on 03/17/2011 at [facility] Right: Shoulder BIOMET [id number]# / / [id number] Head Hum Bio-Mod [id number] - [id number] Implanted:Qty: 1 on 03/17/2011 at [facility] Right: Shoulder BIOMET [id number]# / / [id number] Base Glenoid Hybrid 4mm Sm - [id number] Implanted:Qty: 1 on 03/17/2011 at [facility] Right: Shoulder BIOMET [id number]# / / [id number] Cmnt 1/2 [employer] - [id number] Implanted:Qty: 1 on 03/17/2011 at [facility] Right: Shoulder [employer] 6188-- 0# / / [id number] Post Glenoid Hybrid Regenerex - [id number] Implanted:Qty: 1 on 03/17/2011 at [facility] Right: Shoulder BIOMET [id number] # / / [id number] Head Humeral 44x15 Co Cr Biomodular - [id number] Implanted:Qty: 1 on 07/12/2012 at [facility] Left: Shoulder BIOMET [id number]# / / [id number] Shoulder Stem Implanted:Qty: 1 on 07/12/2012 at [facility] Left: Shoulder [id number] / / [id number] Description:SHOULDER STEM Cmnt Bone 1/2 [employer] - [id number] Implanted:Qty: 1 on 07/12/2012 at [facility] Left: Shoulder [employer] 6188-- 0# / / [id number] Post Glenoid Hybrid Regenerex - [id number] Implanted:Qty: 1 on 07/12/2012 at [facility] Left: Shoulder BIOMET [id number] # / / [id number] Base Glenoid Hybrid 4mm Sm - [id number] Implanted:Qty: 1 on 07/12/2012 at [facility] Left: Shoulder BIOMET [id number]# / / [id number] Procedures Procedure Name Priority Date/Time Associated Diagnosis Comments RENAL FUNCTION PANEL Routine 05/21/2024 11:41 AM SAMPLE WEAVER CKD (chronic kidney disease) stage 4, GFR 15-29 ml/min (HC) HEMOGLOBIN Routine 05/21/2024 11:41 AM SAMPLE WEAVER CKD (chronic kidney disease) stage 4, GFR [...] HIV 1/2 Add On 07/21/2015 9:40 AM SAMPLE WEAVER GUEST EXPERIENCE MANAGER THIN PREP PAP SCREEN IMAGED Routine 08/17/2012 4:02 PM SAMPLE WEAVER Screening for malignant neoplasm of the cervix from Last 3 Months or Most Recently Relevant to Health Maintenance Results * (ABNORMAL) HEMOGLOBIN (05/21/2024 11:41 AM SAMPLE WEAVER) HEMOGLOBIN 10.2(L) 12.0 - 16.0 g/dL 05/21/2024 12:53 PM [facility] MCV 89 80 - 100 fL 05/21/2024 12:53 PM [facility] Blood BLOOD SPECIMEN / Unknown Butterfly / Unknown 05/21/2024 11:41 AM SAMPLE WEAVER 05/21/2024 12:45 PM [facility] - 05/21/2024 12:53 PM [facility] This procedure was originally ordered at [facility]. Barbara Valentin DO HEMATOLOGY [facility] [address] [place] [address] * (ABNORMAL) RENAL FUNCTION PANEL (05/21/2024 11:41 AM SAMPLE WEAVER) SODIUM 139 136 - 145 mmol/L 05/21/2024 2:04 PM [facility] POTASSIUM 4.4 3.5 - 5.1 mmol/L 05/21/2024 2:04 PM [facility] CHLORIDE 96(L) 98 - 107 mmol/L 05/21/2024 2:04 PM [facility] CO2,TOTAL 27 22 - 29 mmol/L 05/21/2024 2:04 PM [facility] ANION GAP 16 5 - 18 05/21/2024 2:04 PM [facility] GLUCOSE 318(H) 70 - 99 mg/dL 05/21/2024 2:04 PM [facility] CALCIUM 9.2 8.8 - 10.4 mg/dL 05/21/2024 2:04 PM [facility] Comment: Reference ranges for this test were updated on 05/08/2024 to reflect our healthy population more accurately. Reference range changes are not retroactively applied to results, but previous results using the same methodology can be interpreted in the context of the new reference range. BUN 48(H) 8 - 23 mg/dL 05/21/2024 2:04 PM [facility] CREATININE 3.15(H) 0.50 - 0.90 mg/dL 05/21/2024 2:04 PM [facility] BUN/CREAT RATIO 15 10 - 20 2:04 PM [facility] eGFR 16(L) >90 mL/min/1. 73m2 05/21/2024 2:04 PM [facility] Comment:As of 2021, eG FR is calculated by the CKD-EPI creatinine equation without race adjustment. eGFR can be influenced by muscle mass, exercise, and diet. The reported eGFR is an estimation only and is only applicable if the renal function is stable. PHOSPHORUS 4.8(H) 2.5 - 4.5 mg/dL 05/21/2024 2:04 PM [facility] ALBUMIN 3.6(L) 4.0 - 4.9 g/dL 05/21/2024 2:04 PM [facility] Blood BLOOD SPECIMEN / Unknown Butterfly / Unknown 05/21/2024 11:41 AM SAMPLE WEAVER 05/21/2024 12:45 PM SAMPLE WEAVER Barbara Patricia Barbie PICKENS CHEMISTRY [facility] [address] [place] [address] * (ABNORMAL) PRO-BNP (05/04/2024 4:09 PM CDT) NT PROBNP 362(H) <125 pg/mL [facility] Blood BLOOD SPECIMEN / Unknown 05/04/2024 4:09 PM CDT 05/04/2024 4:09 PM CDT Barbara Valentin DO SEND OUTS [facility] [address] [id number], [facility] [address] [address] * (ABNORMAL) BASIC METABOLIC PANEL (05/04/2024 4:09 PM CDT) Only the most recent of2 resultswithin the time period is included. GLUCOSE 83 65 - 99 mg/dL [facility] Comment: Fasting reference interval UREA NITROGEN (BUN) 33(H) 7 - 25 mg/dL [facility] CREATININE 2.20(H) 0.50 - 1.05 mg/dL [facility] EGFR 25(L) > OR = [...] Bernard CALCIUM 8.9 8.6 - 10.4 mg/dL [facility] Blood BLOOD SPECIMEN / Unknown 05/04/2024 4:09 PM CDT 05/04/2024 4:09 PM CDT Barbara Valentin DO CHEMISTRY [employer] [facility] [address] [place] [address], [facility] [address] [place] [address] * XR MAMMO BILAT SCREENING (04/28/2022 2:04 [...] health care provider. XR MAMMO BILAT SCREENING [[id number]] CLINICAL HISTORY: This is an asymptomatic 61 y.o. patient. INDICATION FOR EXAM: Mammogram Screening. TECHNIQUE: CC & MLO views were obtained. This study was evaluated with the assistance of Computer-Aided Detection. COMPARISON FILM: Yes 03/02/18 [facility] 07/26/13 [facility] IMASTE FINDINGS: The breasts are extremely dense, which lowers the sensitivity of mammography. There are no dominant masses, suspicious micro calcifications or areas of architectural distortion. Shania Montiel MD MAMMO * LIPID PANEL W REFLEX MEASURED LDL (04/28/2022 1:44 PM CDT) CHOLESTEROL,TOTAL 139 100 - 199 mg/dL 04/30/2022 6:25 PM CDT [facility] TRIGLYCERIDES 141 <150 mg/dL 04/30/2022 6:25 PM CDT [facility] HDL CHOLESTEROL 42 >40 [...] Shania Montiel MD CHEMISTRY Performing Organization Address City/[facility]/ZIP Co de Phone Number [facility] [address] [place] [address], * FECAL DNA (AKA COLOGUARD) (11/10/2021 1:00 PM CDT) Shania Montiel MD COMMUNICATION ORD * ANTI HCV [[id number]] (02/16/2018 4:20 PM CDT) Pathologist [facility] HEPATITIS C ANTIBODY Non-React alex Non-React alex 02/17/2018 2:48 PM CDT [facility] Comment:Antibodies to HCV no t detected; does not exclude the possibility of exposure to HCV. Blood BLOOD SPECIMEN / Unknown Butterfly / Unknown 02/16/2018 4:20 PM CDT 02/16/2018 4:20 PM CDT Coleman Plata MD SEND OUTS Performing Organization Address [facility] Co de Phone Number [facility] [address] [place] [address], * HIV 1&2 TODAY (07/21/2015 9:40 AM SAMPLE WEAVER) [facility] HIV-1/HIV-2 ANTIBODY Non-Reacti ve Non-Reacti ve 07/21/2015 10:31 AM SAMPLE WEAVER [facility] Blood specimen (specimen) BLOOD SPECIMEN / Unknown Venipuncture / Unknown 07/21/2015 9:40 AM SAMPLE WEAVER 07/21/2015 9:47 AM SAMPLE WEAVER Narrative [facility] - 07/21/2015 10:31 AM SAMPLE WEAVER HIV-1 p24 and HIV-1/HIV-2 Ab not detected Kait Morales DO SEND OUTS Performing Organization Address City/[facility]/ZIP Co de Phone Number [facility] [address] [place] [address], * GUEST EXPERIENCE MANAGER THIN PREP PAP SCREEN IMAGED (08/17/2012 4:02 PM SAMPLE WEAVER) CYTOLOGY CYTOPATHOLOGY REPORT [facility] Status: Final Status [id number] CLINICAL INFORMATION Last Date of LMP :07/03/2012 Last Pap Date :02/01/2011 Last Pap Result :NIL ABN [place]/Bx Past 5 YRS :None Hormone Usage :BCP/OCP/Patch/Rin g Menstrual Status :Regular Periods [place]/Bx done today :No Additional Information :None given [...] malignant lesions. COLLECTED:08/17/12 ACCESSIONED: 08/18/12 SIGNED: 08/21/12 [facility] PAP [place] CODE NIL [facility] Tissue specimen (specimen) (Cervical/Vagina l) 08/17/2012 4:02 PM SAMPLE WEAVER 08/17/2012 4:00 PM SAMPLE WEAVER Coleman Plata MD PATHOLOGY/CYTOLOGY [facility] INTERNAL ZIP [phone] [place] [address] from Last 3 Months or Most Recently [...] Urine earlier this year (per report from [facility], not available in CareEverywhere), 04/19/18 L cheek abscess exclusions for contact precaution discontinuation (if > 12 months since positive culture): resides in acute/terminal system operator care, receiving hemodialysis, has chronic open wounds/skin damage, has long-term percutaneous indwelling medical devices Exclusions for nares collection (if <12 months since positive culture) include all of the previous exclusions plus patients on antibiotics 7 days prior to collection 01/17/2024 01/17/2024 Advance Directives * Full Code (Latest Code Status on File) Date Activated Date Inactivated Comments 05/29/2024 7:35 AM * Full Code Date Activated Date Inactivated Comments 01/12/2024 9:15 [...] Comments 07/18/2015 4:38 PM 07/23/2015 3:50 PM Care Teams Digital Manager Relationship Specialty Start Date End Date Barbara Valentin DO [address] [place] [address] PCP - General Family Practice 11/15/22 Julio Ibrahim MD [address] [facility] [address] [place], [place] [phone] Surgery - Orthopedics 02/01/11 Chuy Doss MD [address] [facility] [address] [place] [address] Surgery - Vascular 02/01/11 Markel Strong MD [address] [place] [address] Provider Family Practice 08/08/20 Nikolai Ibarra MD [address] [facility] [address] [place] [address] Endocrinology 09/07/22 [facility] [address] [address] 04/07/24 Toshia Hooks NP [address] [facility] 100 [address] Pain Management Nurse Practitioner - Adult 05/21/24 Suad Ng/ [employer] Application Development Project Manager 07/14/17 [facility] Home Health Nurse 07/01/17 [facility] [facility] Home Health Aide 07/14/17 [facility] Garment Parts Cutter Hand/ Ally Christianson [facility] [address] [place], [place] [id number] Application Development Project Manager 07/07/17
--- OUTSIDE RECORDS SUMMARY | 2024-05-31 13:29 | XMS_ITS | Clinical Summary ---
Author Organization [facility] [place] Address [address] [facility] [address] [place] [address] Phone Care Team Providers Care Metallurgical Laboratory Assistant Name Role Phone Barbara Valentin DO Primary Care Provider [phone] Allergies Active Allergy Reactions Criticality Noted Date [...] One Pack) 3 MG/DOSE powder Inhale 1 [place] into affected nostril(s) each time if needed [...] [facility] [address] [place] [address] Gabriel Hicks MD Chronic kidney disease, stage 4 (severe) ([facility]) 05/04/2024 Telephone [facility] [place] [address] [place] [address] Reina Caruso RN from Last [...] [facility] ([id number]) [place] [address] Care Teams Metallurgical Laboratory Assistant Relationship Specialty Start Date End Date Barbara Valentin DO [address] [place] [address] PCP - General Family Medicine 09/22/23
--- OUTSIDE RECORDS SUMMARY | 2024-05-31 13:29 | XMS_ITS | Encounter Summary ---
Author Organization [facility] Address [address] [place] [address] Care Team Providers Care Veterinary Assistant Name Role Phone Barbara Valentin DO Primary Care Provider [phone] Encounter Details Date Type Department Care Team (Late st Contact Info) Description 09/22/2023 Documentation Only [facility] [place] [address] [facility] [address] [place] [address] No, Pcp Social History Tobacco [...] on filedocumented in this encounter Care Teams Veterinary Assistant Relationship Specialty Start Date End Date Barbara Valentin DO [address] [place] [address] PCP - General Family Medicine 09/22/23 documented as of this encounter
--- OUTSIDE RECORDS SUMMARY | 2024-05-31 13:29 | XMS_ITS | Encounter Summary ---
Author Organization [facility] [place] Address [address] [place] [address] Care Team Providers Care Planer Mill Grader Name Role Phone Barbara Valentin DO Primary Care Provider [phone] Encounter Details Date Type Department Care Team (Late st Contact Info) Description 02/01/2024 Telephone [facility] [place] [address] [place] [address] Gabriel Hicks MD [address] [place] [address] Social History Tobacco Use Types [...] on filedocumented in this encounter Care Teams Planer Mill Grader Relationship Specialty Start Date End Date Barbara Valentin DO [address] [place] [address] PCP - General Family Medicine 09/22/23 documented as of this encounter
--- OUTSIDE RECORDS SUMMARY | 2024-05-31 13:29 | XMS_ITS | Encounter Summary ---
Author Organization [facility] Address [address] [place] [address] Care Team Providers Care Nursing Clerk Name Role Phone Barbara Valentin DO Primary Care Provider [phone] Encounter Details Date Type Department Care Team (Late st Contact Info) Description 05/04/2024 Telephone [facility] [place] [address] [place] [address] Reina Caruso, RN [address] [place] [address] Social History Tobacco Use Types [...] on filedocumented in this encounter Care Teams Nursing Clerk Relationship Specialty Start Date End Date Barbara Valentin DO [address] [place] [address] PCP - General Family Medicine 09/22/23 documented as of this encounter
[2024-05-31] MEDS: METHYLPREDNISOLONE SOD SUCC 62.5 MG/ML (125) 125 MG IVP (13:35)
[2024-05-31 13:37] LABS: HCO3 VBG 30 mmol/L (21-28); Lactate* 1.8 mmol/L (0.5-1.9); PCO2 VBG 45 mmHG (40-50); pH VBG 7.426 (7.32-7.43)
[2024-05-31 13:41] LABS: Basophils Percent Auto 0.1 % (0.0-3.0); Eosinophils Percent Auto 0.2 % (0.0-7.0); Hematocrit 36.4 % (33.0-51.0); Hemoglobin* 11.3 gm/dL (12.0-16.0); Immature Granulocytes Pct Auto 0.2 %; Lymphocytes Percent Auto 10.7 % (20-44); Mean Corpuscular HGB Conc 31 gm/dL (32-36); Mean Corpuscular Hemoglobin 28 pg (26-34); Mean Corpuscular Volume 90 fL (80-100); Neutrophils Percent Auto 83.8 % (42.0-72.0); Platelet Count* 294 K/uL (140-440); RDW Coefficient of Variation % 14.6 % (11.5-15.5); Red Blood Count 4.03 m/uL (4.00-5.20); White Blood Count* 11.84 K/uL (4.50-11.00)
[2024-05-31] MEDS: TRANEXAMIC ACID 100 MG/ML INJ 1000 MG IV (13:41)
[2024-05-31 13:42] LABS: Slide Review Reflex No
[2024-05-31 13:47] LABS: Appearance Urine Cloudy (Clear); Bilirubin Urine Negative (Negative); Blood Urine 1+ (Negative); Color Urine Yellow (Yellow); Glucose Urine Negative (Negative); Ketones Urine Negative (Negative); Leukocyte Esterase Urine 3+ (Negative); Nitrite Urine Negative (Negative); Protein Urine 1+ (Negative); Urobilinogen Urine 0.2 (0.2-1.0); pH Urine 5.5 (5.0-8.5)
[2024-05-31 13:52] LABS: Albumin* 4.1 g/dL (3.3-5.0); Chloride* 100 mmol/L (96-114); Sodium* 137 mmol/L (135-149)
[2024-05-31 13:53] LABS: Potassium* 4.4 mmol/L (3.6-5.1)
[2024-05-31 13:55] LABS: Amphetamine Screen Urine Negative (Negative); Barbiturate Screen Urine Negative (Negative); Benzodiazepines Screen Urine Negative (Negative); Cannabinoid Screen Urine Negative (Negative); Cocaine Screen Urine Negative (Negative); Methadone Screen Urine Negative (Negative); Methamphetamines Screen Urine Negative (Negative); Opiate Screen Urine Negative (Negative); Oxycodone Screen Urine POSITIVE (Negative); Phencyclidine Screen Urine Negative (Negative); Tricyclic Antidepressant Urine Negative (Negative)
[2024-05-31 13:56] LABS: Alanine Aminotransferase* 24 U/L (4-35); Alkaline Phosphatase* 117 U/L (40-150); Anion Gap 9 mEq/L (7-15); Aspartate Amino Transferase* 36 U/L (12-35); Bilirubin Direct* 0.4 mg/dL (0.0-0.5); Bilirubin Total* 0.5 mg/dL (0.1-1.5); Blood Urea Nitrogen* 51 mg/dL (7-30); Calcium* 9.2 mg/dL (8.4-10.6); Carbon Dioxide* 28 mmol/L (20-32); Creatinine* 2.7 mg/dL (0.5-1.5); Estimated Glomerular Filt Rate 19 ml/min; Glucose* 198 mg/dL (60-115); Total Protein* 8.2 g/dL (6.0-8.3)
[2024-05-31 13:57] LABS: Acetaminophen* < 10.0 ug/mL (10.0-30.0); Salicylate* < 1.0 mg/dL (1.0-10)
[2024-05-31 13:58] LABS: Ethanol* < 0.01 % (0.01-0.03)
[2024-05-31 13:59] LABS: C Reactive Protein* 6.8 mg/dL (0.5-1.0)
[2024-05-31 14:04] LABS: Bacteria Urine Many; WBC Urine >100 (0-5)
--- NOTE | 2024-05-31 14:13 | ED.NURSE ---
Went to or.
--- NOTE | 2024-05-31 14:55 | ED_ITS ---
HPI - Altered Mental Status General Chief Complaint: Altered Mental Status Stated Complaint: Unresponsive Time Seen by Provider: 05/31/24 14:48 Source: EMS Mode of arrival: EMS Limitations: no limitations and altered mental status History of Present Illness HPI narrative: Patient is 63-year-old female with extensive medical history presenting via EMS for decreased mentation and a swollen tongue. EMS was called by the patient's son states she has been like this for the past hour tell he called EMS. He is a poor historian. EMS gave epi and Benadryl prior to arrival. When she arrived she was sent about 88% on room air but quickly got up to 94% on room air. She does have 2 nasal airways placed by EMS. She is not responding to questions but is opening her eyes. Does not appear to be withdrawing from pain but does seem to extend her extremities. Related Data Home Medications ?Medication ?Instructions ?Recorded ?Confirmed amlodipine 2.5 mg tablet 2.5 mg PO BID 10/11/22 04/05/24 atorvastatin 20 mg tablet 20 mg PO HS 10/11/22 04/05/24 buprenorphine 5 mcg/hour weekly 1 patch transdermal Q7D 10/11/22 04/05/24 transdermal patch cetirizine 5 mg tablet 5 mg PO DAILY 10/11/22 04/05/24 cholecalciferol (vitamin D3) 50 50 mcg PO DAILY 10/11/22 04/05/24 mcg (2,000 unit) capsule duloxetine 60 mg capsule,delayed 60 mg PO DAILY 10/11/22 04/05/24 release metoprolol succinate 25 mg 25 mg PO DAILY 10/11/22 04/05/24 tablet,extended release 24 hr omeprazole 20 mg capsule,delayed 20 mg PO DAILY 10/11/22 04/05/24 release oxycodone 5 mg tablet 5 mg PO BID PRN 10/11/22 04/05/24 polyethylene glycol 3350 17 17 g PO DAILY PRN 10/11/22 04/05/24 gram/dose oral powder (Miralax) pregabalin 100 mg capsule 100 - 200 mg PO BID 10/11/22 04/05/24 pregabalin 50 mg capsule 50 mg PO HS 10/11/22 04/05/24 sennosides 8.6 mg-docusate sodium 2 tab PO BID PRN 10/11/22 04/05/24 50 mg tablet (Stool Softener-Stimulant Laxative) torsemide 20 mg tablet 40 mg PO DAILY 10/11/22 04/05/24 vitamin B12 2,500 mcg-folic acid 1 tab PO DAILY 10/11/22 04/05/24 400 mcg disintegrating tablet acetaminophen 650 mg 1,300 mg PO Q8H 12/19/22 04/05/24 tablet,extended release levothyroxine 125 mcg tablet 125 mcg PO DAILY 05/25/23 04/05/24 fluoxetine 10 mg capsule 10 mg PO DAILY 03/16/24 04/05/24 cyanocobalamin (vitamin B-12) 1,000 mcg PO DAILY 03/17/24 04/05/24 1,000 mcg tablet glucagon 3 mg/actuation nasal 3 mg intranasal DIRECTED PRN 03/17/24 04/05/24 spray (Baqsimi) naloxone 4 mg/actuation nasal 4 mg intranasal DIRECTED PRN 03/17/24 04/05/24 spray (Narcan) Previous Rx's ?Medication ?Instructions ?Recorded insulin lispro 100 unit/mL 1 sliding scale dose subcut 04/02/24 subcutaneous pen (Humalog KwikPen TIDWMEAL #15 mL (U-100) Insulin) insulin glargine 100 unit/mL (3 8 unit (0.08 mL) subcut DAILY #15 04/06/24 mL) subcutaneous pen (Lantus mL Solostar U-100 Insulin) insulin lispro 100 unit/mL 8 unit (0.08 mL) subcut TIDWMEAL 04/06/24 subcutaneous pen (Humalog KwikPen #4.5 mL (U-100) Insulin) Allergies Allergy/AdvReac Type Severity Reaction Status Date / Time ampicillin Allergy Mild Hives Verified 05/03/24 22:11 aspirin Allergy Unknown Verified 05/03/24 22:11 NSAIDS (Non-Steroidal Allergy Unknown Verified 05/03/24 22:11 Anti-Inflamma Review of Systems Status of ROS: Reports: unobtainable due to medical condition [facility] Medical History Abnormal urinalysis ?R82.90 - Unspecified abnormal findings in urine (ICD-10) Nocturnal hypoglycemia ?E16.1 - Other hypoglycemia (ICD-10) Stage 4 chronic kidney disease ?N18.4 - Chronic kidney disease, stage 4 (severe) (ICD-10) Congestive heart failure (CHF) ?I50.9 - Heart failure, unspecified (ICD-10) Hypertension ?I10 - Essential (primary) hypertension (ICD-10) Diabetes type I ?E10.9 - Type 1 diabetes mellitus without complications (ICD-10) Hyperosmolar syndrome ?E87.0 - Hyperosmolality and hypernatremia (ICD-10) Sleep apnea ?G47.30 - Sleep apnea, unspecified (ICD-10) Ulnar neuropathy ?G56.20 - Lesion of ulnar nerve, unspecified upper limb (ICD-10) Hyperlipidemia ?E78.5 - Hyperlipidemia, unspecified (ICD-10) Morbid obesity ?E66.01 - Morbid (severe) obesity due to excess calories (ICD-10) GERD (gastroesophageal reflux disease) ?K21.9 - Gastro-esophageal reflux disease without esophagitis (ICD-10) 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 diabetic neuropathic arthropathy (ICD-10) Depressive disorder ?F32.A - Depression, unspecified (ICD-10) COPD (chronic obstructive pulmonary disease) ?J44.9 - Chronic obstructive pulmonary disease, unspecified (ICD-10) Chronic pain syndrome ?G89.4 - Chronic pain syndrome (ICD-10) Chronic kidney disease, stage 1 ?N18.1 - Chronic kidney disease, stage 1 (ICD-10) Carpal tunnel syndrome ?G56.00 - Carpal tunnel syndrome, unspecified upper limb (ICD-10) Diabetic retinopathy ?E11.319 - Type 2 diabetes mellitus with unspecified diabetic retinopathy without macular edema (ICD-10) Anemia of other chronic disease ?D63.8 - Anemia in other chronic diseases classified elsewhere (ICD-10) Acute respiratory failure ?J96.00 - Acute respiratory failure, unspecified whether with hypoxia or hypercapnia (ICD-10) Surgical History History of thyroidectomy ?E89.0 - Postprocedural hypothyroidism (ICD-10) History of hip replacement ?Z96.649 - Presence of unspecified artificial hip joint (ICD-10) History of gastric bypass ?Z98.84 - Bariatric surgery status (ICD-10) History of section ?Z98.891 - History of uterine scar from previous surgery (ICD-10) Hx of cataract removal with insertion of prosthetic lens ?Z98.49 - Cataract extraction status, unspecified eye (ICD-10) ?Z96.1 - Presence of intraocular lens (ICD-10) History of carpal tunnel release ?Z98.890 - Other specified postprocedural states (ICD-10) History of knee replacement procedure of right knee ?Z96.651 - Presence of right artificial knee joint (ICD-10) Family History Mother Diabetes Obesity Sleep apnea Brother Diabetes Obesity Sleep apnea Father Sleep apnea High blood pressure Social History Narrative: Full Code. Lives with son Mitul, who would be medical decision maker if needed. Also lives with sister. She does not smoke. She does not drink alcohol. What is your current living situation?: I presently have a place to live Problems where you live: no known problems Problems where you live details: n/a In the past 12 months, utilities in danger of being shut off: no In the past 12 mos, have been you worried that your food would run out before you had money to buy more?: never true In the past 12 mos, the food you bought just didn't last and you didn't have money to buy more?: never true Highest level of school completed/degree received: some college, no degree Smoking Status: Never smoker Do you use any of these nicotine containing products: None Second hand tobacco smoke exposure: No How often do you have a drink containing alcohol: never How often do you have six or more drinks on one occasion: Never AUDIT-C Alcohol total score: 0 Non-prescribed substance use: denies use Caffeine: No How often does anyone, including family, friends and others, physically hurt you : never How often does anyone, including family, friends and others, insult or talk down to you: never How often does anyone, including family, friends and others, threaten you with harm: never How often does anyone, including family, friends and others, scream or curse at you: never service: No Exam Narrative: Exam Narrative: Const: Well-nourished, Well-developed, in severe distress Eyes: Pinpoint pupils, no conjunctival injection, and symmetrical lids HENT: Atraumatic external nose and ears. Moist mucous membranes. Neck: Symmetric, trachea midline, No thyromegaly. CVS: RRR, No murmurs or gallops. Peripheral pulses 2+ and equal in all extremities RESP: Unlabored respiratory effort. Clear to auscultation bilaterally. GI: Nontender/Nondistended, No rebound or guarding. MSK:Extremities w/o deformity, Normal Active ROM Skin: Warm, Dry. No rashes or lesions. Neuro: Minimal response. GCS 7 Psych: Awake, Alert, & Oriented x3. Appropriate mood and affect. Const: Vital Signs, click to edit/add: Vital Signs - 24 hr 05/31/24 13:06 05/31/24 13:07 05/31/24 13:14 Temperature Pulse Rate 118 H 120 H Pulse Rate [Pulse Oximeter] Respiratory Rate Blood Pressure 186/75 H Blood Pressure [Ri ght Forearm] Pulse Oximetry 95 96 Oxygen Delivery Me thod Room Air Room Air Room Air Oxygen Flow Rate 05/31/24 13:15 05/31/24 13:21 05/31/24 13:26 Temperature Pulse Rate 121 H 122 H 122 H Pulse Rate [Pulse Oximeter] Respiratory Rate Blood Pressure 174/60 H 132/67 Blood Pressure [Ri ght Forearm] Pulse Oximetry 97 99 98 Oxygen Delivery Me thod Room Air Nasal Cannula Nasal Cannula Oxygen Flow Rate 2 2 05/31/24 13:31 05/31/24 13:31 05/31/24 13:34 Temperature 99.4 F Pulse Rate 121 H Pulse Rate [Pulse Oximeter] 122 H Respiratory Rate 20 Blood Pressure 136/81 Blood Pressure [Ri ght Forearm] 174/60 H Pulse Oximetry 94 96 Oxygen Delivery Me thod Room Air Nasal Cannula Nasal Cannula Oxygen Flow Rate 2 2 05/31/24 13:35 05/31/24 13:45 05/31/24 13:46 Temperature Pulse Rate 121 H 125 H 124 H Pulse Rate [Pulse Oximeter] Respiratory Rate Blood Pressure 152/92 H 142/117 H Blood Pressure [Ri ght Forearm] Pulse Oximetry 96 92 94 Oxygen Delivery Me thod Nasal Cannula Nasal Cannula Nasal Cannula Oxygen Flow Rate 2 2 2 05/31/24 13:53 05/31/24 13:59 05/31/24 14:00 Temperature Pulse Rate 124 H 124 H 123 H Pulse Rate [Pulse Oximeter] Respiratory Rate Blood Pressure 136/63 118/75 Blood Pressure [Ri ght Forearm] Pulse Oximetry 94 93 93 Oxygen Delivery Me thod Nasal Cannula Nasal Cannula Nasal Cannula Oxygen Flow Rate 1 1 1 05/31/24 14:01 05/31/24 14:06 Temperature Pulse Rate 123 H 123 H Pulse Rate [Pulse Oximeter] Respiratory Rate Blood Pressure 141/71 H 134/55 L Blood Pressure [Ri ght Forearm] Pulse Oximetry 93 93 Oxygen Delivery Me thod Nasal Cannula Nasal Cannula Oxygen Flow Rate 1 1 Course Vital Signs Vital signs: Initial Vital Signs Pulse Rate 118 H 05/31/24 13:06 Pulse Oximetry 95 05/31/24 13:06 Oxygen Delivery Method Room Air 05/31/24 13:06 Vital Signs Pulse Rate 118 H 05/31/24 13:06 Pulse Oximetry 95 05/31/24 13:06 Oxygen Delivery Method Room Air 05/31/24 13:06 Temperature 99.4 F 05/31/24 13:31 Pulse Rate 123 H 05/31/24 14:06 Respiratory Rate 20 05/31/24 13:31 Blood Pressure 134/55 L 05/31/24 14:06 Pulse Oximetry 93 05/31/24 14:06 Oxygen Delivery Method Nasal Cannula 05/31/24 14:06 Oxygen Flow Rate 1 05/31/24 14:06 Medications Administered Medications: Discontinued Medications Generic Name Dose Route Start Last Admin Trade Name Freq PRN Reason Stop Dose Admin Epinephrine HCl 0.3 mg 05/31/24 13:23 05/31/24 13:23 Epinephrine 0.3 Mg Pen IM 05/31/24 13:24 0.3 mg ONCE ONE Administration Levetiracetam 1,000 mg/ Sodium 110 mls @ 660 mls/hr 05/31/24 14:06 05/31/24 14:20 Chloride IVPB 05/31/24 14:15 Infused ONCE ONE Infusion Sodium Chloride 500 mls @ 500 mls/hr 05/31/24 13:26 05/31/24 14:30 0.9 % Sodium Chloride 500 Ml IV 05/31/24 14:25 Infused .Q1H ONE Infusion Lidocaine/Epinephrine 20 ml 05/31/24 15:01 05/31/24 15:01 Lidocaine 1%-Epi 1:100,000 INFILTRATI 05/31/24 15:02 2 ml ONCE ONE Administration Methylprednisolone Sodium Succinate 125 mg 05/31/24 13:31 05/31/24 13:35 Methylprednisolone Sod Succ 62.5 Mg/Ml (125) IVP 05/31/24 13:32 125 mg ONCE ONE Administration Naloxone HCl 0.5 mg 05/31/24 13:25 05/31/24 13:25 Naloxone 1 Mg/Ml Syringe IV 05/31/24 13:26 0.5 mg ONCE ONE Administration Tranexamic Acid 1,000 mg 05/31/24 13:41 05/31/24 13:41 Tranexamic Acid 100 Mg/Ml Inj IV 05/31/24 13:42 1,000 mg ONCE ONE Administration MDM - Altered Mental Status MDM Narrative Medical decision making narrative: Patient is a 63 year old female presenting for altered mental status. She has a notably diffuse they swollen tongue. There is concerning for anaphylaxis versus angioedema. Did given a 2nd dose of epinephrine. We do not intubate immediately due to the severe swelling want to make sure we have every 1 available as the likely only of 1 shot at this. 1st we called an anesthesia. Once they arrive they recommended calling and ENT for surgical airway. Dr. Souza was paged me left his home immediately to come in. While awaiting continued to monitor the patient. Did give TXA for possible angioedema. There are new medication she is currently on that can cause angioedema that I am aware of his Lyrica. Of note she last got 30 day supply on 05/02/2024. Consider doing FFP but would take a couple hours to get and at that point would not be beneficial considering she will be getting an airway much quicker than that. With her episodes were she would have episodes when she obstruction be and decerebrate posturing. Keppra was given for potential seizures we are unaware of. Of note though when this is happening her eyes are blinking and when we tried to get some view with the flexible bronchoscope she would bite down on the tube. We are hesitant to give her any benzos or other medications that might decrease her mentation as there is severe concern we would lose an airway. Also gave another dose of the oxycodone Narcan as there was a pill bottle of oxycodone next to her. Of note it was not empty. While were waiting for ENT did order COVID/flu/RSV, blood cultures, CBC, CMP, urine drug screen, urinalysis, acetaminophen and salicylate levels, ETOH level, lactate. All her lab work did not returned showing any concerning abnormalities. Her creatinine is elevated and she may be having and FIORELLA. Her kidney function does typically seem to be in the 2.9 range but it was 1.4 back and 04/02/2024. She does have a UTI. While all this was going on my colleague did speak to [facility] immediately accepted her for admission. We will wait transfer until we have a definitive airway. Dr. Souza and did arrive and brought her to the OR where he ended up doing a tracheostomy due to inability to get an intubation performed. Throat her time in emergency department her heart rate was in the 120s and she stayed between 92 and 99% on 1 L nasal cannula. Her heart rate stayed in the 120s range. Snow was placed. After the initial intubation she was right main stemmed causing and sees collapse of the left lung. ET tube was brought back by Dr. Peterson. EMS is already on their way. ICU provider who accepted did ask for a head CT but once the patient was intubated we not feel it was appropriate at this time considering we were having some issues with her oxygenation and would prefer to keep her in the OR until EMS arrived. Did give her Cipro for her UTI. Did not want to give any cephalosporins or penicillins due to her previous allergy to ampicillin. Lab Data Labs: Lab Results 05/31/24 05/31/24 05/31/24 Range/Units 13:15 13:24 13:42 WBC 11.84 H (4.50-11.00) K/uL RBC 4.03 (4.00-5.20) m/uL Hgb 11.3 L (12.0-16.0) gm/dL Hct 36.4 (33.0-51.0) % MCV 90 (80-100) fL MCH 28 (26-34) pg MCHC 31 L (32-36) gm/dL RDW Coeff of Stefan 14.6 (11.5-15.5) % Plt Count 294 (140-440) K/uL Neut % (Auto) 83.8 H (42.0-72.0) % Lymph % (Auto) 10.7 L (20-44) % [place] % (Auto) 5.0 (0.0-11.0) % Eos % (Auto) 0.2 (0.0-7.0) % Baso % (Auto) 0.1 (0.0-3.0) % Neut # (Auto) 9.90 H (1.7-7.0) K/uL Lymph # (Auto) 1.30 (0.90-2.90) K/uL [place] # (Auto) 0.60 (0.00-0.90) K/UL Eos # (Auto) 0.00 (0.00-0.50) K/uL Baso # (Auto) 0.00 (0.00-0.30) K/uL Abs Immat Gran (auto) 0.00 (0.00-0.30) K/uL Imm/Tot Granulo (auto) 0.2 % VBG pH 7.426 (7.32-7.43) VBG pCO2 45 (40-50) mmHG VBG pO2 104.0 H (25-47) mmHG VBG HCO3 30 H (21-28) mmol/L Sodium 137 (135-149) mmol/L Potassium 4.4 (3.6-5.1) mmol/L Chloride 100 (96-114) mmol/L Carbon Dioxide 28 (20-32) mmol/L Anion Gap 9 (7-15) mEq/L BUN 51 H (7-30) mg/dL Creatinine 2.7 H (0.5-1.5) mg/dL Estimated Creat Clear 16.30 Estimated GFR 19 ml/min Glucose 198 H (60-115) mg/dL Lactate 1.8 (0.5-1.9) mmol/L Calcium 9.2 (8.4-10.6) mg/dL Total Bilirubin 0.5 (0.1-1.5) mg/dL Direct Bilirubin 0.4 (0.0-0.5) mg/dL AST 36 H (12-35) U/L ALT 24 (4-35) U/L Alkaline Phosphatase 117 (40-150) U/L C-Reactive Protein 6.8 H (0.5-1.0) mg/dL Total Protein 8.2 (6.0-8.3) g/dL Albumin 4.1 (3.3-5.0) g/dL Urine Color Yellow (Yellow) Urine Appearance Cloudy A (Clear) Urine pH 5.5 (5.0-8.5) Ur Specific Spade 1.010 (1.000-1.030) Urine Protein 1+ A (Negative) Urine Glucose (UA) Negative (Negative) Urine Ketones Negative (Negative) Urine Blood 1+ A (Negative) Urine Nitrite Negative (Negative) Urine Bilirubin Negative (Negative) Urine Urobilinogen 0.2 (0.2-1.0) Ur Leukocyte Esterase 3+ A (Negative) Urine RBC 5-10 A (0-2) Urine WBC >100 A (0-5) Ur Squamous Epith Cells None (None-Few) Urine Bacteria Many A (None) Salicylates < 1.0 L (1.0-10) mg/dL Urine Opiates Screen Negative (Negative) Ur Oxycodone Screen POSITIVE A (Negative) Urine Methadone Screen Negative (Negative) Acetaminophen < 10.0 L (10.0-30.0) ug/mL Ur Barbiturates Screen Negative (Negative) U Tricyclic Antidepress Negative (Negative) Ur Phencyclidine Scrn Negative (Negative) Ur Amphetamines Screen Negative (Negative) U Methamphetamines Scrn Negative (Negative) U Benzodiazepines Scrn Negative (Negative) Urine Cocaine Screen Negative (Negative) U Marijuana (THC) Screen Negative (Negative) Ur Drug Screen Comment See Note Ethyl Alcohol < 0.01 L (0.01-0.03) % SARS-CoV-2 (PCR) (Negative) Influenza Type A (PCR) (Negative) Influenza Type B (PCR) (Negative) RSV (PCR) (Negative) Lab Acknowledgement Test Added 05/31/24 Range/Units 13:57 WBC (4.50-11.00) K/uL RBC (4.00-5.20) m/uL Hgb (12.0-16.0) gm/dL Hct (33.0-51.0) % MCV (80-100) fL MCH (26-34) pg MCHC (32-36) gm/dL RDW Coeff of Stefan (11.5-15.5) % Plt Count (140-440) K/uL Neut % (Auto) (42.0-72.0) % Lymph % (Auto) (20-44) % [place] % (Auto) (0.0-11.0) % Eos % (Auto) (0.0-7.0) % Baso % (Auto) (0.0-3.0) % Neut # (Auto) (1.7-7.0) K/uL Lymph # (Auto) (0.90-2.90) K/uL [place] # (Auto) (0.00-0.90) K/UL Eos # (Auto) (0.00-0.50) K/uL Baso # (Auto) (0.00-0.30) K/uL Abs Immat Gran (auto) (0.00-0.30) K/uL Imm/Tot Granulo (auto) % VBG pH (7.32-7.43) VBG pCO2 (40-50) mmHG VBG pO2 (25-47) mmHG VBG HCO3 (21-28) mmol/L Sodium (135-149) mmol/L Potassium (3.6-5.1) mmol/L Chloride (96-114) mmol/L Carbon Dioxide (20-32) mmol/L Anion Gap (7-15) mEq/L BUN (7-30) mg/dL Creatinine (0.5-1.5) mg/dL Estimated Creat Clear Estimated GFR ml/min Glucose (60-115) mg/dL Lactate (0.5-1.9) mmol/L Calcium (8.4-10.6) mg/dL Total Bilirubin (0.1-1.5) mg/dL Direct Bilirubin (0.0-0.5) mg/dL AST (12-35) U/L ALT (4-35) U/L Alkaline Phosphatase (40-150) U/L C-Reactive Protein (0.5-1.0) mg/dL Total Protein (6.0-8.3) g/dL Albumin (3.3-5.0) g/dL Urine Color (Yellow) Urine Appearance (Clear) Urine pH (5.0-8.5) Ur Specific Spade (1.000-1.030) Urine Protein (Negative) Urine Glucose (UA) (Negative) Urine Ketones (Negative) Urine Blood (Negative) Urine Nitrite (Negative) Urine Bilirubin (Negative) Urine Urobilinogen (0.2-1.0) Ur Leukocyte Esterase (Negative) Urine RBC (0-2) Urine WBC (0-5) Ur Squamous Epith Cells (None-Few) Urine Bacteria (None) Salicylates (1.0-10) mg/dL Urine Opiates Screen (Negative) Ur Oxycodone Screen (Negative) Urine Methadone Screen (Negative) Acetaminophen (10.0-30.0) ug/mL Ur Barbiturates Screen (Negative) U Tricyclic Antidepress (Negative) Ur Phencyclidine Scrn (Negative) Ur Amphetamines Screen (Negative) U Methamphetamines Scrn (Negative) U Benzodiazepines Scrn (Negative) Urine Cocaine Screen (Negative) U Marijuana (THC) Screen (Negative) Ur Drug Screen Comment Ethyl Alcohol (0.01-0.03) % SARS-CoV-2 (PCR) Negative SARS-CoV-2 (Negative) Influenza Type A (PCR) Negative PCR FLU A (Negative) Influenza Type B (PCR) Negative PCR FLU B (Negative) RSV (PCR) Negative PCR RSV (Negative) Lab Acknowledgement Critical Care Time Critical Care Time Critical Care Time: Yes Attestation: The patient required my highest level preparedness to intervene emergently and I personally spent this critical care time directly and personally managing the patient. This critical care time included: Obtaining a history; Examining the patient; Pulse oximetry; Ordering and reviewing of studies; Arranging urgent treatment with development of a management plan; Evaluation of patients response to treatment; Frequent reassessment discussions with other providers. This critical care time was performed to assess and manage the high probability of imminent life-threatening deterioration that could result in multiorgan failure. It was exclusive of separate billable procedures and treating other patients and teaching time. Total Critical Care Time in Minutes: 80 Discharge Plan Discharge Clinical Impression: Angioedema Qualifiers: Encounter type: initial encounter Qualified Code(s): T78.3XXA - Angioneurotic edema, initial encounter Patient Disposition: [facility] Condition: Critical Prescriptions: No Action atorvastatin 20 mg tablet 20 mg PO HS torsemide 20 mg tablet 40 mg PO DAILY cetirizine 5 mg tablet 5 mg PO DAILY sennosides-docusate sodium [Stool Softener-Stimulant Laxat] 8.6-50 mg tablet 2 tab PO BID PRN omeprazole 20 mg capsule,delayed release(DR/EC) 20 mg PO DAILY metoprolol succinate 25 mg tablet extended release 24 hr 25 mg PO DAILY oxycodone 5 mg tablet 5 mg PO BID PRN duloxetine 60 mg capsule,delayed release(DR/EC) 60 mg PO DAILY pregabalin 50 mg capsule 50 mg PO HS Rx Instructions: WITH 100 MG DOSE = 150 MG QHS pregabalin 100 mg capsule 100 - 200 mg PO BID Rx Instructions: 200 MG IN AM AND 150 MG IN PM cholecalciferol (vitamin D3) 50 mcg (2,000 unit) capsule 50 mcg PO DAILY buprenorphine 5 mcg/hour patch weekly 1 patch transdermal Q7D polyethylene glycol 3350 [Miralax] 17 gram/dose powder 17 g PO DAILY PRN amlodipine 2.5 mg tablet 2.5 mg PO BID vitamin [id number] acid 2,500-400 mcg tablet,disintegrating 1 tab PO DAILY levothyroxine 125 mcg tablet 125 mcg PO DAILY fluoxetine 10 mg capsule 10 mg PO DAILY cyanocobalamin (vitamin B-12) 1,000 mcg tablet 1,000 mcg PO DAILY Baqsimi 3 mg/actuation spray,non-aerosol 3 mg intranasal DIRECTED PRN naloxone [Narcan] 4 mg/actuation spray,non-aerosol 4 mg intranasal DIRECTED PRN acetaminophen 650 mg tablet extended release 1,300 mg PO Q8H insulin lispro [Humalog KwikPen Insulin] 100 unit/mL insulin pen 1 sliding scale dose subcut TIDWMEAL Qty: 15 0RF Rx Instructions: Blood Glucose 150 or less, no extra insulin. Blood Glucose 151-200, add 2 units to mealtime insulin Blood Glucose 201-250, add 4 units to mealtime insulin Blood Glucose 251-300, add 6 units to mealtime insulin Blood Glucose 301-350, add 8 units to mealtime insulin Blood Glucose 351 to 400, add 10 units to mealtime insulin Blood Glucose 401 and greater, add 12 units to mealtime insulin insulin lispro [Humalog KwikPen Insulin] 100 unit/mL insulin pen 8 unit subcut TIDWMEAL Qty: 4.5 2RF insulin glargine [Lantus Solostar U-100 Insulin] 100 unit/mL (3 mL) Insulin Pen 8 unit subcut DAILY Qty: 15 0RF Stand Alone [facility] Instructions
--- NOTE | 2024-05-31 15:00 | P.ENTCN_ITS ---
HPI- ENT Consult Date of Consult Date Seen: 05/31/24 Patient: Other Consult date: 05/31/24 Requesting Physician: Other Primary Care Provider: Barbara Valentin DO Consult Narrative Reason for consult: Difficulty breathing, tongue swelling Narrative: Mikayla Kuhn is a 63 year old female who was apparently found un responsive at home and brought to the hospital by ambulance. At that time was noted she had significant tongue swelling. By report the ER doctor apparently was familiar with the patient she always has a large tongue but this was a of marked change. She also had difficulty breathing. Her sats were in the low 90s. She did respond to epi and nasal airways in been set the os could oxygen saturations climbed above 95. This was all by report to me. I encountered her in the operating room unresponsive and was present for ENT standby for attempted intubation. See operative report for details. [place] [id number] [facility] Medical History Abnormal urinalysis ?R82.90 - Unspecified abnormal findings in urine (ICD-10) Nocturnal hypoglycemia ?E16.1 - Other hypoglycemia (ICD-10) Stage 4 chronic kidney disease ?N18.4 - Chronic kidney disease, stage 4 (severe) (ICD-10) Congestive heart failure (CHF) ?I50.9 - Heart failure, unspecified (ICD-10) Hypertension ?I10 - Essential (primary) hypertension (ICD-10) Diabetes type I ?E10.9 - Type 1 diabetes mellitus without complications (ICD-10) Hyperosmolar syndrome ?E87.0 - Hyperosmolality and hypernatremia (ICD-10) Sleep apnea ?G47.30 - Sleep apnea, unspecified (ICD-10) Ulnar neuropathy ?G56.20 - Lesion of ulnar nerve, unspecified upper limb (ICD-10) Hyperlipidemia ?E78.5 - Hyperlipidemia, unspecified (ICD-10) Morbid obesity ?E66.01 - Morbid (severe) obesity due to excess calories (ICD-10) GERD (gastroesophageal reflux disease) ?K21.9 - Gastro-esophageal reflux disease without esophagitis (ICD-10) 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 diabetic neuropathic arthropathy (ICD-10) Depressive disorder ?F32.A - Depression, unspecified (ICD-10) COPD (chronic obstructive pulmonary disease) ?J44.9 - Chronic obstructive pulmonary disease, unspecified (ICD-10) Chronic pain syndrome ?G89.4 - Chronic pain syndrome (ICD-10) Chronic kidney disease, stage 1 ?N18.1 - Chronic kidney disease, stage 1 (ICD-10) Carpal tunnel syndrome ?G56.00 - Carpal tunnel syndrome, unspecified upper limb (ICD-10) Diabetic retinopathy ?E11.319 - Type 2 diabetes mellitus with unspecified diabetic retinopathy without macular edema (ICD-10) Anemia of other chronic disease ?D63.8 - Anemia in other chronic diseases classified elsewhere (ICD-10) Acute respiratory failure ?J96.00 - Acute respiratory failure, unspecified whether with hypoxia or hypercapnia (ICD-10) Surgical History History of thyroidectomy ?E89.0 - Postprocedural hypothyroidism (ICD-10) History of hip replacement ?Z96.649 - Presence of unspecified artificial hip joint (ICD-10) History of gastric bypass ?Z98.84 - Bariatric surgery status (ICD-10) History of section ?Z98.891 - History of uterine scar from previous surgery (ICD-10) Hx of cataract removal with insertion of prosthetic lens ?Z98.49 - Cataract extraction status, unspecified eye (ICD-10) ?Z96.1 - Presence of intraocular lens (ICD-10) History of carpal tunnel release ?Z98.890 - Other specified postprocedural states (ICD-10) History of knee replacement procedure of right knee ?Z96.651 - Presence of right artificial knee joint (ICD-10) Family History Mother Diabetes Obesity Sleep apnea Brother Diabetes Obesity Sleep apnea Father Sleep apnea High blood pressure Social History Narrative: Full Code. Lives with son Mitul, who would be medical decision maker if needed. Also lives with sister. She does not smoke. She does not drink alcohol. What is your current living situation?: I presently have a place to live Problems where you live: no known problems Problems where you live details: n/a In the past 12 months, utilities in danger of being shut off: no In the past 12 mos, have been you worried that your food would run out before you had money to buy more?: never true In the past 12 mos, the food you bought just didn't last and you didn't have money to buy more?: never true Highest level of school completed/degree received: some college, no degree Smoking Status: Never smoker Do you use any of these nicotine containing products: None Second hand tobacco smoke exposure: No How often do you have a drink containing alcohol: never How often do you have six or more drinks on one occasion: Never AUDIT-C Alcohol total score: 0 Non-prescribed substance use: denies use Caffeine: No How often does anyone, including family, friends and others, physically hurt you : never How often does anyone, including family, friends and others, insult or talk down to you: never How often does anyone, including family, friends and others, threaten you with harm: never How often does anyone, including family, friends and others, scream or curse at you: never service: No Meds Home Medications and Allergies Home Medications ?Medication ?Instructions ?Recorded ?Confirmed ?Type amlodipine 2.5 mg tablet 2.5 mg PO BID 10/11/22 04/05/24 History atorvastatin 20 mg tablet 20 mg PO HS 10/11/22 04/05/24 History buprenorphine 5 mcg/hour weekly 1 patch transdermal Q7D 10/11/22 04/05/24 History transdermal patch cetirizine 5 mg tablet 5 mg PO DAILY 10/11/22 04/05/24 History cholecalciferol (vitamin D3) 50 50 mcg PO DAILY 10/11/22 04/05/24 History mcg (2,000 unit) capsule duloxetine 60 mg capsule,delayed 60 mg PO DAILY 10/11/22 04/05/24 History release metoprolol succinate 25 mg 25 mg PO DAILY 10/11/22 04/05/24 History tablet,extended release 24 hr omeprazole 20 mg capsule,delayed 20 mg PO DAILY 10/11/22 04/05/24 History release oxycodone 5 mg tablet 5 mg PO BID PRN 10/11/22 04/05/24 History polyethylene glycol 3350 17 17 g PO DAILY PRN 10/11/22 04/05/24 History gram/dose oral powder (Miralax) pregabalin 100 mg capsule 100 - 200 mg PO BID 10/11/22 04/05/24 History pregabalin 50 mg capsule 50 mg PO HS 10/11/22 04/05/24 History sennosides 8.6 mg-docusate sodium 2 tab PO BID PRN 10/11/22 04/05/24 History 50 mg tablet (Stool Softener-Stimulant Laxative) torsemide 20 mg tablet 40 mg PO DAILY 10/11/22 04/05/24 History vitamin B12 2,500 mcg-folic acid 1 tab PO DAILY 10/11/22 04/05/24 History 400 mcg disintegrating tablet acetaminophen 650 mg 1,300 mg PO Q8H 12/19/22 04/05/24 History tablet,extended release levothyroxine 125 mcg tablet 125 mcg PO DAILY 05/25/23 04/05/24 History fluoxetine 10 mg capsule 10 mg PO DAILY 03/16/24 04/05/24 History cyanocobalamin (vitamin B-12) 1,000 mcg PO DAILY 03/17/24 04/05/24 History 1,000 mcg tablet glucagon 3 mg/actuation nasal 3 mg intranasal DIRECTED PRN 03/17/24 04/05/24 History spray (Baqsimi) naloxone 4 mg/actuation nasal 4 mg intranasal DIRECTED PRN 03/17/24 04/05/24 History spray (Narcan) Allergies Allergy/AdvReac Type Severity Reaction Status Date / Time ampicillin Allergy Mild Hives Verified 05/03/24 22:11 aspirin Allergy Unknown Verified 05/03/24 22:11 NSAIDS (Non-Steroidal Allergy Unknown Verified 05/03/24 22:11 Anti-Inflamma Exam Narrative: Exam Narrative: Semiconscious response to stimuli marked tongue edema. Remainder of exam is an operative report no neck swelling white count was normal Const: Vital Signs, click to edit/add: Vital Signs - 24 hr 05/31/24 13:06 05/31/24 13:07 05/31/24 13:14 Temperature Pulse Rate 118 H 120 H Pulse Rate [Pulse Oximeter] Respiratory Rate Blood Pressure 186/75 H Blood Pressure [Ri ght Forearm] Pulse Oximetry 95 96 Oxygen Delivery Me thod Room Air Room Air Room Air Oxygen Flow Rate 05/31/24 13:15 05/31/24 13:21 05/31/24 13:26 Temperature Pulse Rate 121 H 122 H 122 H Pulse Rate [Pulse Oximeter] Respiratory Rate Blood Pressure 174/60 H 132/67 Blood Pressure [Ri ght Forearm] Pulse Oximetry 97 99 98 Oxygen Delivery Me thod Room Air Nasal Cannula Nasal Cannula Oxygen Flow Rate 2 2 05/31/24 13:31 05/31/24 13:31 05/31/24 13:34 Temperature 99.4 F Pulse Rate 121 H Pulse Rate [Pulse Oximeter] 122 H Respiratory Rate 20 Blood Pressure 136/81 Blood Pressure [Ri ght Forearm] 174/60 H Pulse Oximetry 94 96 Oxygen Delivery Me thod Room Air Nasal Cannula Nasal Cannula Oxygen Flow Rate 2 2 05/31/24 13:35 05/31/24 13:45 05/31/24 13:46 Temperature Pulse Rate 121 H 125 H 124 H Pulse Rate [Pulse Oximeter] Respiratory Rate Blood Pressure 152/92 H 142/117 H Blood Pressure [Ri ght Forearm] Pulse Oximetry 96 92 94 Oxygen Delivery Me thod Nasal Cannula Nasal Cannula Nasal Cannula Oxygen Flow Rate 2 2 2 05/31/24 13:53 05/31/24 13:59 05/31/24 14:00 Temperature Pulse Rate 124 H 124 H 123 H Pulse Rate [Pulse Oximeter] Respiratory Rate Blood Pressure 136/63 118/75 Blood Pressure [Ri ght Forearm] Pulse Oximetry 94 93 93 Oxygen Delivery Me thod Nasal Cannula Nasal Cannula Nasal Cannula Oxygen Flow Rate 1 1 1 05/31/24 14:01 05/31/24 14:06 Temperature Pulse Rate 123 H 123 H Pulse Rate [Pulse Oximeter] Respiratory Rate Blood Pressure 141/71 H 134/55 L Blood Pressure [Ri ght Forearm] Pulse Oximetry 93 93 Oxygen Delivery Me thod Nasal Cannula Nasal Cannula Oxygen Flow Rate 1 1 ENT-CN: Result Labs Labs: Short CBC 05/31/24 Range/Units 13:15 WBC 11.84 H (4.50-11.00) K/uL Hgb 11.3 L (12.0-16.0) gm/dL Hct 36.4 (33.0-51.0) % Plt Count 294 (140-440) K/uL BMP 05/31/24 13:15 Sodium 137 Potassium 4.4 Chloride 100 Carbon Dioxide 28 BUN 51 H Creatinine 2.7 H Glucose 198 H Calcium 9.2 Liver Function 05/31/24 Range/Units 13:15 Total Bilirubin 0.5 (0.1-1.5) mg/dL Direct Bilirubin 0.4 (0.0-0.5) mg/dL AST 36 H (12-35) U/L ALT 24 (4-35) U/L Alkaline Phosphatase 117 (40-150) U/L Albumin 4.1 (3.3-5.0) g/dL Urine 05/31/24 Range/Units 13:24 Urine Color Yellow (Yellow) Urine Appearance Cloudy A (Clear) Urine pH 5.5 (5.0-8.5) Ur Specific Zillah 1.010 (1.000-1.030) Urine Protein 1+ A (Negative) Urine Glucose (UA) Negative (Negative) Assessment and Plan Assessment and plan (1) Tongue edema: Status: Acute Plan Patient is reasonably stable and breathing spontaneously so plan would be anesthesia to attempt intubation with me standing by for potential tracheotomy.
[2024-05-31] MEDS: LIDOCAINE 1%-EPI 1:100,000 20 ML INFILTRATI ×2 (15:01→15:30)
--- NOTE | 2024-05-31 15:03 | P.ENTPROC_ITS ---
Procedure Note Date of procedure: 05/31/24 Procedure: Pre-procedure diagnosis is lingual edema Postprocedure diagnosis lingual hypo pharyngeal and epiglottic edema Procedure direct laryngoscopy, tracheotomy The patient was prepped and draped in usual fashion. Anesthesia 1st attempted to intubate. This was done with both a glide scope and a flexible scope. I attempted with a flexible scope but was then able to maneuver the the tube into the airway. Visualization was poor there was marked epiglottic edema as well as pharyngeal edema. There is no purulent drainage. The patient remains stable however it became apparent after several attempts that the intubation was not likely to succeed so the patient was prepped for a tracheotomy A the patient has a previous scar in the inferior neck consistent with either previous tracheotomy or thyroid surgery. I made a vertical scar is centered over that directly over the trachea. The trachea was deep lying. The cricoid cartilage was exposed. I was able to elevate the trachea out of the chest with a trach hook and anterior the 2nd tracheal ring. A incision was made between the 1st and 2nd ring and then vertical cuts made downward from that with a heavy scissors. A 6 0 tube was placed under direct visualization. This was confirmed by Anesthesia with CO2 return. The tube was then secured in place with 2 3-0 silk sutures on either side wrapped around the tube as well as a trach tie and a single suture true securing the tube to the anterior chest wall. There was really minimal bleeding during the procedure which was fortunate. A trach dressing was placed. The incision was left open. The patient tolerated proce dure well and we await transport. Blood loss during procedure 10 mL.
[2024-05-31 15:23] LABS: PCR FLU A Negative PCR FLU A (Negative); PCR FLU B Negative PCR FLU B (Negative); PCR RSV Negative PCR RSV (Negative); SARS PCR* Negative SARS-CoV-2 (Negative)
--- NOTE | 2024-05-31 15:32 | CRLHL7_ITS ---
For Patients: As a result of the Century Cures Act, medical imaging exams and procedure reports are released immediately into your electronic medical record. You may view this report before your referring provider. If you have questions, please contact your health care provider. INDICATION: : TRACH PLACEMENT COMPARISON: Same day chest radiograph TECHNIQUE: One view(s) of the chest, 2 images FINDINGS/IMPRESSION: Image labeled try 3: Right mainstem intubation Image labeled try 4: The endotracheal tube is retracted but still approximately 1.1 centimeters into the right mainstem bronchus. Recommend retraction by approximately 4 millimeters. The cardiomediastinal silhouette is stable. Similar-appearing peripheral left midlung subsegmental atelectasis. No new focal airspace consolidation, pleural effusion, or pneumothorax. No displaced fractures. Right shoulder hemiarthroplasty. Dictated by Mynor Ibanez MD @ 05/31/2024 3:59:39 PM (Electronically Signed)
--- NOTE | 2024-05-31 16:17 | PC.NURSE ---
Patient transferred to [place] room 3924. Updated patients son, Mitul.
[2024-05-31] MEDS: propofoL 1,000 MG/100 ML ML 65.32 MG IVPB (16:20)
--- NOTE | 2024-05-31 16:21 | P.ANES_ITS ---
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
--- NOTE | 2024-05-31 16:46 | SUR.OPER ---
Patient was transferred to [facility] via ambulance at 1606. Report was given by CASIE Urbano to [facility] EMS crew. Report was given to [facility] ICU by ER nurses to completed all transfer communication and paperwork.
--- NOTE | 2024-06-01 06:41 | SUR.OPER ---
emergency situation and unable to obtain consent for procedure of tracheostomy due to patient not responsive and patient not with anyone to give consent.
--- OUTSIDE RECORDS SUMMARY | 2024-06-01 12:14 | XMS_ITS | Encounter Summary ---
Author Organization [facility] Address [address] [place] [address] Care Team Providers Care Freezing Room Worker Name Role Phone Barbara Valentin DO Primary Care Provider [phone] Encounter Details Date Type Department Care Team (Late st Contact Info) Description 02/01/2024 Telephone [facility] [address] [place] [address] Gabriel Hicks MD [address] [place] [address] Social History Tobacco Use Types [...] on filedocumented in this encounter Care Teams Freezing Room Worker Relationship Specialty Start Date End Date Barbara Valentin DO [address] [place] [address] PCP - General Family Medicine 09/22/23 documented as of this encounter
--- OUTSIDE RECORDS SUMMARY | 2024-06-01 12:14 | XMS_ITS | Clinical Summary ---
Author Organization [facility] Address [address] [facility] [place] [address] Phone Care Team Providers Care Animal Behaviorist Name Role Phone Barbara Valentin DO Primary Care Provider [phone] Allergies Active Allergy Reactions Criticality Noted Date [...] One Pack) 3 MG/DOSE powder Inhale 1 [place] into affected nostril(s) each time if needed [...] [facility] [address] [place] [address] Gabriel Hicks MD Chronic kidney disease, stage 4 (severe) ([facility]) 05/04/2024 Telephone [facility] [address] [place] [address] Reina Caruso RN from Last [...] to complete this topic Insurance MEDICA DUAL [facility] D-SNP ([id number]) [place] [id number] Care Teams Animal Behaviorist Relationship Specialty Start Date End Date Barbara Valentin DO [address] [place] [address] PCP - General Family Medicine 09/22/23
--- OUTSIDE RECORDS SUMMARY | 2024-06-01 12:14 | XMS_ITS | Clinical Summary ---
Author Organization [employer] [facility] Address [place], [place] [address] Care Team Providers Care Wellness Rn Name Role Phone Julio Ibrahim MD Unavailable Chuy Doss MD Unavailable Markel Strong MD Unavailable Nikolai Ibarra MD Unavailable Barbara Valentin Patricia DO Primary Care Provider [phone] [facility] Un[facility] Toshia Hooks NP Unavailable [phone] Allergies Active Allergy Reactions Criticality Noted Date [...] nasal solution (FLONASE)Indicati ons:Nasal congestion Inhale 1 [place] into affected nostril(s) once daily. Inhale 1 [place] in the nostril(s) once daily. 16 g 01/12/20 22 024 Discontinued(*P atient states no longer taking) [...] continuous glucose monitor READER (FreeStyle Elli 2 [place])Indication s:Type 1 diabetes mellitus with other specified complication (HC) To be used to read blood sugars per simonizer's directions. 1 Each 05/19/20 23 Suspended Additional [...] be used to read blood sugars per simonizer's directions. 6 Each 3 09/06/19 24 Suspended [...] Chronic, continuous use of opioids Inhale 1 [place] into affected nostril(s) each time if needed [...] mellitus at risk of hypoglycemia Inhale 1 [place] into affected nostril(s) each time if needed [...] detected. Comparison Compared to prior exam of 04/11/23, there has been no significant change. - [...] agreement signed - 10/07/23 10/07/2023 Overview (10/07/2023): [facility] Noemí Dennis .................... 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 11/27/2013 12/28/2013 Anticoagulation [...] Department Care Team Description 05/31/2024 4:56 PM COUPLES THERAPIST - Present Hospital Encounter [facility] [address] [place] [address] s, Hospitalist [facility] Reece Dhaliwal MD O'Neil, Chandu Hoover MD 05/30/2024 2:30 PM COUPLES THERAPIST Home Care Visit [facility] [address] [place] [phone] Geneva Sanchez RN SN - HOME VISIT 05/28/2024 2:00 PM COUPLES THERAPIST Home Care Visit [facility] [address] [place] [address] Geneva Sanchez RN SN - HOME VISIT 05/21/2024 11:30 AM COUPLES THERAPIST Home Care Visit [facility] [address] [place] [phone] Geneva Sanchez RN SN - HOME VISIT 05/21/2024 Telephone [facility] [address] [place] [address] Geneva Sanchez, shop cooper 05/21/2024 Telephone [facility] [address] [place] [address] Sir Valentini Patricia, DO Results 05/21/2024 Orders Only [facility] [address] [facility] [place] [address] Sir Valentini Patricia, DO Lab 05/21/2024 Telephone [facility] [address] [place] [address] Toshia Hooks NP Refill Request 05/17/2024 Refill [facility] [address] [place] [address] Barbara Valentin Patricia, DO Refill Request (Fluoxetine) 05/16/2024 Telephone [facility] [address] [place] [address] Barbara Valentin Patricia, DO Follow Up (Blood sugar / weight ) 05/14/2024 2:00 PM COUPLES THERAPIST Home Care Visit [facility] [address] [place] [address] Geneva Sanchez, LOS SN - HOME VISIT 05/14/2024 Telephone [facility] [address] [place] [address] Shaqra, Barbara Patricia, DO return call 05/14/2024 Telephone [facility] [address] [place] [address] Geneva Sanchez, shop cooper 05/14/2024 Orders Only [facility] [address] [place] [phone] Shaqra Barbara Patricia, DO Lab (Home care) 05/10/2024 Telephone [facility] [address] [place] [address] Shaqra Barbara Patricia, DO Results 05/08/2024 Telephone [facility] [address] [place] [address] Shaqra, Barbara Patricia, DO Results 05/07/2024 12:00 PM COUPLES THERAPIST Home Care Visit [facility] [address] [place] [address] Malou Griffith LPN ASSIGNMENT OFFICER - HOME VISIT 05/07/2024 10:10 AM COUPLES THERAPIST Phone Office Visit [facility] [address] [facility] [address] [facility] [address] [place] [address] Nikolai Ibarra MD Consult (Phone visit) 05/07/2024 Travel 05/07/2024 Telephone [facility] [address] [place] [address] Saúlqra Barbara Patricia, DO Blood Sugar 05/04/2024 3:00 PM CDT Office Visit [facility] [address] [place] [address] Shaqra Barbara Patricia, DO ER Follow up (Hypoglycemia ) 05/04/2024 12:15 PM CDT Home Care Visit [facility] [address] [facility] [place] [address] Geneva Sanchez, LOS SN - HOME VISIT 05/04/2024 Travel 04/30/2024 10:00 AM CDT Home Care Visit [facility] [address] [place] [address], [place] [address] Geneva Sanchez, LOS SN - HOME VISIT 04/27/2024 10:30 AM CDT Home Care Visit [facility] [address] [place] [phone] Geneva Sanchez RN SN - HOME VISIT 04/27/2024 Telephone [facility] [address] [place] [address] Barbara Valentin Patricia, DO 04/24/2024 9:00 AM CDT Home Care Visit [address] [phone] Geneva Sanchez, LOS SN - HOME VISIT 04/21/2024 1:00 PM CDT Home Care Visit [address] [phone] Geneva Sanchez, LOS SN - HOME VISIT 04/21/2024 Telephone [facility] [address] [place] [address] Barbie Barbara Patricia, DO Home Care (Update) 04/20/2024 Telephone [facility] [address] [phone] Romina Pro, LOS Failed Appointment 04/20/2024 Refill [facility] [address] [place] [address] Toshia Hooks NP Refill Request 04/20/2024 Telephone [facility] [address] [place] [address] Barbie Barbara Patricia, DO Diabetes (/) 04/17/2024 9:00 AM CDT Home Care Visit [address] [address] Geneva Sanchez, LOS SN - HOME VISIT 04/17/2024 Telephone [facility] [address] [place] [phone] Geneva Sanchez, shop cooper 04/16/2024 Telephone [facility] [address] [place] [address] Barbara Valentin, DO Results 04/16/2024 Patient Outreach [facility] - Care Management Navigation/[facility] [address] [place] [phone] Aide [facility] (Care Guide Breast Cancer Screening outreach/) 04/13/2024 11:00 AM CDT Office Visit [facility] [address] [place] [address] Barbara Valentin, Follow Up (Diabetes, home care, medications) 04/13/2024 1:20 AM CDT Home Care Visit [facility] [address] [place] [phone] Coleman Rock RN SN - WOUND/OSTOMY CHART CONSULT 04/13/2024 Refill [facility] [address] [place] [address] Barbara Valentin, Refill Request (need changes/clarificat ion) 04/13/2024 Travel 04/12/2024 9:00 AM CDT Home Care Visit [facility] [address] [place] [address] Geneva Sanchez, LOS SN - OASIS START OF CARE 04/12/2024 Orders Only [facility] [address] [place] [address] Barbara Valentin, DO <No scans attached> 04/12/2024 Telephone [facility] [address] [place] [phone] Geneva Sanchez, shop cooper 04/12/2024 Patient Outreach [facility] - Care Management Navigation/[facility] [address] [place] [address] Aide Rolon [facility] (Care Guide Breast Cancer Screening outreach/) 04/12/2024 Plan of Care Documentation [facility] [address] [place] [address] 04/09/2024 Patient Outreach [facility] - Care Management Navigation[facility] [address] [place] [address] Aide Rolon [facility] (Care Guide Breast Cancer Screening outreach/) 04/09/2024 Home Care Visit [place] [address] [place] [phone] Elvi Meyers RN CARE COORDINATION 04/06/2024 11:25 AM CDT Office Visit [facility] [address] [place] [address] Shaqra, Barbara Patricia, DO Hospital F/U (Hypoglycemia - ER/hospital 03/29, 04/06 ) 04/06/2024 Orders Only [facility] [address] [place] [address] Nikolai Ibarra MD <No scans attached> 04/06/2024 Travel 04/04/2024 Refill [facility] [address] [place] [address] Saúlqra Barbara Patricia, DO Refill Request (Amlodipine, Omeprazole) 03/27/2024 Telephone [facility] [address] [place] [address] Saúlqra Barbara Patricia, DO Questions 03/16/2024 Refill [facility] [address] [place] [address] Toshia Hooks NP Refill Request 03/14/2024 10:30 AM CDT Home Care Visit [facility] [address] [place] [phone] Geneva Sanchez RN SN - OASIS DISCHARGE 03/12/2024 Refill [facility] [address] [place] [address] Barbara Valentin, DO Refill Request (Pregabalin, Fluoxetine, Duloxetine) 03/06/2024 10:00 AM CDT Home Care Visit [facility] [address] [facility] [place] [address] Geneva Sanchez RN SN - HOME VISIT 03/06/2024 9:15 AM CDT Home Care Visit [facility] [address] [place] [address] Alex Contreras BRAND SPECIALIST - HOME VISIT 03/03/2024 Home Care Visit [facility] [address] [place] [address] Nitza Riojas LISW CARE COORDINATION from Last 3 Months Immunizations Name Administration Dates Next Due AMB Influenza, IIV3 (Age >=3 years)(Flu Clinic Only) 05/17/2013,05/06/2010 COVID-19 VACCINE SPIKEVAX (M ODERNA 50MCG/0.5ML) 12YO+ PFS 04/06/2024 COVID-19 vaccine (Linksify-Bio NTech 30mcg/0.3mL) 12YO+ BIVALENT PF, MDV 04/28/2022 COVID-19 vaccine (Linksify-Bio NTech 30mcg/0.3mL) PF, MDV 06/23/2021 Hepatitis B (Adult) 08/17/2019,02/06/2014,2013 Influenza A (H1N1), Inactivated 06/19/2009 Influenza A (H1N1), Inactiva audi (Age >=3 Years) 06/19/2009 Influenza, IIV3 (Age >=3 years) 05/06/20 14,05/17/2013,03/20/2012,2010,05/06/2010,03/19/2009,05/06/2008,1 ,05/11/2006,04/29/2005, 004,06/13/2003 Influenza, IIV4 04/28/2022,,05/18/2019,2017,04/06/2017 Influenza, IIV4 (=>6mos) MDV 03/18/2020, 017 Influenza, Inactivated IIV3 (Age 65+ Years) Preserv [...] Sign Reading Time Taken Comments Blood Pressure 149/70 06/01/2024 10:00 AM COUPLES THERAPIST Pulse 101 06/01/2024 10:39 AM COUPLES THERAPIST Temperature 38.4 C (101.2 F) 06/01/2024 10:30 AM COUPLES THERAPIST Respiratory Rate 23 06/01/2024 10:3 9 AM COUPLES THERAPIST Oxygen Saturation 94% 06/01/2024 10: 39 AM COUPLES THERAPIST Inhaled Oxygen Concentration - - Weight 94.8 kg (208 lb 15.9 oz) 06/01/2024 4:00 AM COUPLES THERAPIST Height 152.4 cm (5') 01/12/2024 9:27 PM CDT Body Mass Index 40.82 01/12/2024 9:27 PM CDT Plan of Treatment Upcoming Encounters Date Type Department Care Team (Late st Contact Info) Description 06/04/2024 9:00 AM COUPLES THERAPIST Home Care Visit [facility] [address] [place] [phone] Geneva Sanchez RN 06/07/2024 4:00 AM COUPLES THERAPIST Appointment [place] [facility] [id number] [place] [phone] Geneva Sanchez RN 06/15/2024 3:00 PM COUPLES THERAPIST Office Visit [facility] [address] [place] [address] Barbara Valentin, [address] [place] [address] 09/07/2024 3:10 PM COUPLES THERAPIST Phone Office Visit [facility] [address] [facility] [address] [place] [address] Nikolai Ibarra MD [address] [facility] [address] [facility] [address] [place] [address] Health Maintenance Due Date Last Done Comments Zoster (shingles) series for age 50+ (1 of 2) 12/19/2011 Pap test for age 21-65 08/17/2015 08/17/2012, 2010 Tetanus booster 08/25/2020 08/25/2010, 12/04, 12/30/2002 Mammogram for age 45-75 04/28/2023 04/28/20, 03/02/2018, 07/26/2013, Additional history exists Influenza for age 50-64 03/04/2024 04/28/20, 04/28/2021, 03/18/2020, Additional history exists Fecal testing sDNA-FIT ([place] guard) for age 45-75 11/10/2024 11/10/2021 Depression [...] exists Medical Devices Implanted Type Area Rivet Spinner Device Identifier Shelf Expiration Date Model / Serial / Lot [id number] loderm 2x12mm [[id number]] Implanted:Qty: 1 on 08/08/[address] [facility] Explanted:at [facility] (Quantity not on file) Stomach Authernative [id number]# / [id number] / Stem Compnt Primary 8mm Mini - [id number] Implanted:Qty: 1 on 03/17/[address] [facility] Right: Shoulder BIOMET [id number]# / / [id number] Head Hum Bio-Mod [id number] - [id number] Implanted:Qty: 1 on 03/17/[address] [facility] Right: Shoulder BIOMET [id number]# / / [id number] Base Glenoid Hybrid 4mm Sm - [id number] Implanted:Qty: 1 on 03/17/[address] [facility] Right: Shoulder BIOMET [id number]# / / [id number] Cmnt 1/2 D[employer] - [id number] Implanted:Qty: 1 on 03/17/[address] [facility] Right: Shoulder [employer] 6188-1- 0# / / [id number] Post Glenoid Hybrid Regenerex - [id number] Implanted:Qty: 1 on 03/17/[address] [facility] Right: Shoulder BIOMET [id number] # / / [id number] Head Humeral 44x15 Co Cr Biomodular - [id number] Implanted:Qty: 1 on 07/12/[address] [facility] Left: Shoulder BIOMET [id number]# / / [id number] Shoulder Stem Implanted:Qty: 1 on 07/12/[address] [facility] Left: Shoulder [id number] / / [id number] Description:SHOULDER STEM Cmnt Bone 1/2 [employer] - [id number] Implanted:Qty: 1 on 07/12/[address] [facility] Left: Shoulder [employer] 6188-- 0# / / [id number] Post Glenoid Hybrid Regenerex - [id number] Implanted:Qty: 1 on 07/12/[address] [facility] Left: Shoulder BIOMET [id number] # / / [id number] Base Glenoid Hybrid 4mm Sm - [id number] Implanted:Qty: 1 on 07/12/[address] [facility] Left: Shoulder BIOMET [id number]# / / [id number] Procedures The patient is currently admitted. The information in this section might not be complete until the patient is discharged. Procedure Name Priority Date/Time Associated Diagnosis Comments GLUCOSE METER Timed 06/01/2024 11:48 AM COUPLES THERAPIST GLUCOSE METER Timed 06/01/2024 8:32 AM COUPLES THERAPIST SCAN-CARDIAC STRIP 06/01/2024 7: 25 AM COUPLES THERAPIST CBC WITH AUTO DIFFERENTIAL Early AM 06/01/2024 6:42 AM COUPLES THERAPIST CBC WITH AUTO DIFFERENTIAL Early AM 06/01/2024 6:42 AM COUPLES THERAPIST PROCALCITONIN Early AM 06/01/2024 5:53 AM COUPLES THERAPIST COMP METABOLIC PANEL Early AM 06/01/2024 5:53 AM COUPLES THERAPIST CK TOTAL Timed 06/01/2024 5:53 AM COUPLES THERAPIST TRIGLYCERIDES Timed 06/01/2024 5:53 AM COUPLES THERAPIST GLUCOSE METER Timed 06/01/2024 3:18 AM COUPLES THERAPIST GLUCOSE METER Timed 06/01/2024 1:05 AM COUPLES THERAPIST SCAN-CARDIAC STRIP 06/01/2024 12 :01 AM COUPLES THERAPIST GLUCOSE METER Timed 05/31/2024 11:31 PM COUPLES THERAPIST GLUCOSE METER Timed 05/31/2024 9:41 PM COUPLES THERAPIST URINALYSIS MICROSCOPIC RICHARD 05/31/2024 9:25 PM COUPLES THERAPIST UA W/ SEDIMENT EXAM REFLEXED PER CRITERIA RICHARD 05/31/2024 9:25 PM COUPLES THERAPIST MRSA/SA PCR Today 05/31/2024 9:24 PM COUPLES THERAPIST GLUCOSE METER Timed 05/31/2024 7:57 PM COUPLES THERAPIST XR CHEST 1 VIEW PORTABLE STAT 05/31/2024 7:28 PM COUPLES THERAPIST TSH RICHARD 05/31/2024 6:31 PM COUPLES THERAPIST CBC WITH AUTO DIFFERENTIAL Today 05/31/2024 6:31 PM COUPLES THERAPIST PROCALCITONIN Today 05/31/2024 6:31 PM COUPLES THERAPIST COMP METABOLIC PANEL Today 05/31/2024 6:31 PM COUPLES THERAPIST CBC WITH AUTO DIFFERENTIAL Today 05/31/2024 6:31 PM COUPLES THERAPIST ISTAT EG6+ ABG Timed 05/31/2024 6:03 PM COUPLES THERAPIST XR CHEST 1 VIEW PORTABLE STAT 05/31/2024 5:26 PM COUPLES THERAPIST RENAL FUNCTION PANEL Routine 05/21/2024 11:41 AM COUPLES THERAPIST CKD (chronic kidney disease) stage 4, GFR 15-29 ml/min (HC) HEMOGLOBIN Routine 05/21/2024 11:41 AM COUPLES THERAPIST CKD (chronic kidney disease) stage 4, GFR [...] HIV 1/2 Add On 07/21/2015 9:40 AM COUPLES THERAPIST SURGICAL CORSETIER THIN PREP PAP SCREEN IMAGED Routine 08/17/2012 4:02 PM COUPLES THERAPIST Screening for malignant neoplasm of the cervix from Last 3 Months or Most Recently Relevant to Health Maintenance Results * (ABNORMAL) GLUCOSE METER (06/01/2024 11:48 AM COUPLES THERAPIST) Only the most recent of7 resultswithin the time period is included. GLUCOSE METER 199(H) 65 - 100 mg/dL 06/01/2024 11:48 AM [facility] Blood BLOOD SPECIMEN / Unknown 06/01/2024 11:48 AM COUPLES THERAPIST 06/01/2024 11:48 AM COUPLES THERAPIST Chandu Patino MD CHEMISTRY [facility] SENDOUT INTERNAL ZIP [phone] [place] [address] * SCAN-CARDIAC STRIP (06/01/2024 7:25 AM COUPLES THERAPIST) Scanner OTHER * (ABNORMAL) CBC WITH AUTO DIFFERENTIAL (06/01/2024 6:42 AM COUPLES THERAPIST) Only the most recent of2 resultswithin the time period is included. Pathologist [facility] WHITE BLOOD COUNT 11.0 4.5 - 11.0 thou/cu mm 06/01/2024 6:50 AM [facility] RED BLOOD COUNT 3.83(L) 4.00 - 5.20 mil/cu mm 06/01/2024 6:50 AM [facility] HEMOGLOBIN 11.0(L) 12.0 - 16.0 g/dL 06/01/2024 6:50 AM [facility] HEMATOCRIT 33.1 33.0 - 51.0 % 06/01/2024 6:50 AM [facility] MCV 86 80 - 100 fL 06/01/2024 6:50 AM [facility] MCH 28.7 26.0 - 34.0 pg 06/01/2024 6:50 AM [facility] MCHC 33.2 32.0 - 36.0 g/dL 06/01/2024 6:50 AM [facility] RDW 14.7 11.5 - 15.5 % 06/01/2024 6:50 AM [facility] PLATELET COUNT 285 140 - 440 thou/cu mm 06/01/2024 6:50 AM [facility] MPV 10.9 6.5 - 11.0 fL 06/01/2024 6:50 AM [facility] NRBC 0.0 % 06/01/2024 6:50 AM [facility] ABS NRBC 0.0 thou /cu mm 06/01/2024 6:50 AM [facility] % NEUT 91.0 % 06/01/2024 6:50 AM [facility] % LYMPH 6.1 % 06/01/2024 6:50 AM [facility] % MONO 2.4 % 06/01/2024 6:50 AM [facility] % EOS 0.0 % 06/01/2024 6:50 AM [facility] % BASO 0.1 % 06/01/2024 6:50 AM [facility] % IMMATURE GRAN (METAS,MYELOS,[place] OS) 0.4 % 06/01/2024 6:50 AM [facility] ABSOLUTE NEUTROPHILS 10.1(H) 1.7 - 7.0 thou/cu mm 06/01/2024 6:50 AM [facility] ABSOLUTE LYMPHOCYTES 0.7(L) 0.9 - 2.9 thou/cu mm 06/01/2024 6:50 AM [facility] ABSOLUTE MONOCYTES 0.3 <0.9 thou/cu mm 06/01/2024 6:50 AM [facility] ABSOLUTE EOSINOPHILS 0.0 <0.5 thou/cu mm 06/01/2024 6:50 AM [facility] ABSOLUTE BASOPHILS 0.0 <0.3 thou/cu mm 06/01/2024 6:50 AM [facility] ABSOLUTE IMMATURE GRANULOCYTES(MET ,MYELOS,PROS) 0.0 <0.3 thou/cu mm 06/01/2024 6:50 AM [facility] Blood BLOOD SPECIMEN / Unknown Diversion Device / Unknown 06/01/2024 6:42 AM COUPLES THERAPIST 06/01/2024 6:46 AM [facility] Coleman Murphy MD HEMATOLOGY [facility] SENDOUT INTERNAL ZIP [phone] [place] [address] * (ABNORMAL) PROCALCITONIN (06/01/2024 5:53 AM COUPLES THERAPIST) Only the most recent of2 resultswithin the time period is included. PROCALCITONIN 4.30(H) ng/ml 06/01/2024 6:29 AM [facility] Blood BLOOD SPECIMEN / Unknown Butterfly / Unknown 06/01/2024 5:53 AM COUPLES THERAPIST 06/01/2024 5:58 AM COUPLES THERAPIST [facility] - 06/01/2024 6:29 AM COUPLES THERAPIST Procalcitonin for initial assessment of Lower Respiratory [...] are obtained. Coleman Murphy MD SEND OUTS [facility] SENDOUT INTERNAL ZIP [phone] [place] [address] * TRIGLYCERIDES propofol (06/01/2024 5:53 AM COUPLES THERAPIST) TRIGLYCERIDES 44 <150 mg/dL 06/01/2024 6:27 AM COUPLES THERAPIST [facility] Blood BLOOD SPECIMEN / Unknown Butterfly / Unknown 06/01/2024 5:53 AM COUPLES THERAPIST 06/01/2024 5:58 AM COUPLES THERAPIST Coleman Murphy MD CHEMISTRY [facility] SENDOUT INTERNAL ZIP [phone] [place] [address] * CK TOTAL propofol (06/01/2024 5:53 AM COUPLES THERAPIST) CK,TOTAL 142 26 - 192 IU/L 06/01/2024 6:27 AM COUPLES THERAPIST [facility] Blood BLOOD SPECIMEN / Unknown Butterfly / Unknown 06/01/2024 5:53 AM COUPLES THERAPIST 06/01/2024 5:58 AM COUPLES THERAPIST Coleman Murphy MD CHEMISTRY [facility] SENDOUT INTERNAL ZIP [phone] [place] [address] * (ABNORMAL) COMP METABOLIC PANEL (06/01/2024 5:53 AM COUPLES THERAPIST) Only the most recent of2 resultswithin the time period is included. SODIUM 143 136 - 145 mmol/L 06/01/2024 6:27 AM [facility] POTASSIUM 5.1 3.5 - 5.1 mmol/L 06/01/2024 6:27 AM [facility] CHLORIDE 105 98 - 107 mmol/L 06/01/2024 6:27 AM [facility] CO2,TOTAL 24 22 - 29 mmol/L 06/01/2024 6:27 AM [facility] ANION GAP 14 5 - 18 06/01/2024 6:27 AM [facility] GLUCOSE 111(H) 70 - 99 mg/dL 06/01/2024 6:27 AM [facility] CALCIUM 9.1 8.8 - 10.4 mg/dL 06/01/2024 6:27 AM [facility] Comment: Reference ranges for this test were updated on 05/08/2024 to reflect our healthy population more accurately. Reference range changes are not retroactively applied to results, but previous results using the same methodology can be interpreted in the context of the new reference range. BUN 46(H) 8 - 23 mg/dL 06/01/2024 6:27 AM [facility] CREATININE 2.70(H) 0.50 - 0.90 mg/dL 06/01/2024 6:27 AM [facility] BUN/CREAT RATIO 17 10 - 20 6:27 AM [facility] eGFR 19(L) >90 mL/min/1. 73m2 06/01/2024 6:27 AM [facility] Comment:As of 2021, eG FR is calculated by the CKD-EPI creatinine equation without race adjustment. eGFR can be influenced by muscle mass, exercise, and diet. The reported eGFR is an estimation only and is only applicable if the renal function is stable. ALBUMIN 3.1(L) 4.0 - 4.9 g/dL 06/01/2024 6:27 AM [facility] PROTEIN,TOTAL 7.1 6.0 - 8.0 g/dL 06/01/2024 6:27 AM [facility] BILIRUBIN,TOTAL 0.2 0.0 - 1.2 mg/dL 06/01/2024 6:27 AM [facility] ALK PHOSPHATASE 100 35 - 104 IU/L 06/01/2024 6:27 AM [facility] ALT (SGPT) 15 10 - 35 IU/L 06/01/2024 6:27 AM [facility] AST (SGOT) 33 10 - 35 IU/L 06/01/2024 6:27 AM [facility] Blood BLOOD SPECIMEN / Unknown Butterfly / Unknown 06/01/2024 5:53 AM COUPLES THERAPIST 06/01/2024 5:58 AM [facility] Coleman Murphy MD CHEMISTRY [facility] SENDOUT INTERNAL ZIP [phone] [place] [address] * SCAN-CARDIAC STRIP (06/01/2024 12:01 AM COUPLES THERAPIST) Scanner OTHER * (ABNORMAL) URINALYSIS MICROSCOPIC (05/31/2024 9:25 PM COUPLES THERAPIST) RBC 0-2 0-2, None Seen /HPF 06/01/2024 10:28 AM [facility] WBC >100(A) 0-2, 3-5, None Seen /HPF 06/01/2024 10:28 AM [facility] BACTERIA Many(A) None Seen, Rare, Few Bacteria/H PF 06/01/2024 10:28 AM [facility] EPITHELIAL CELLS Many(A) None Seen, Few Epi/HPF 06/01/2024 10:28 AM [facility] HYALINE CASTS 26-50(A) 0-2, 3-5 /LPF 06/01/2024 10:28 AM [facility] Urine URINE SPECIMEN / Unknown Non-Blood / Unknown 05/31/2024 9:25 PM COUPLES THERAPIST 06/01/2024 10:14 AM COUPLES THERAPIST Krystina Ramirez MD URINE [facility] SENDOUT INTERNAL ZIP [phone] [place] [address] * (ABNORMAL) UA W/ SEDIMENT EXAM REFLEXED PER CRITERIA (05/31/2024 9:25 PM COUPLES THERAPIST) COLOR Yellow Yellow Color 06/01/2024 10:26 AM [facility] CLARITY Turbid(A) Clear Clarity 06/01/2024 10:26 AM [facility] SPECIFIC GRAVITY,URINE 1.015 1.010, 1.015, 1.020, 1.025 06/01/2024 10:26 AM [facility] PH,URINE 5.5 6.0, 7.0, 8.0, 5.5, 6.5, 7.5, 8.5 06/01/2024 10:26 AM [facility] UROBILINOGEN, QUALITATIVE Normal Normal EU/dl 06/01/2024 10:26 AM [facility] PROTEIN, URINE 100(A) Negative mg/dL 06/01/2024 10:26 AM [facility] [facility] GLUCOSE[facility] URINE 500(A) Negative mg/dL 06/01/2024 10:26 AM [facility] KETONES,URINE 15(A) Negative mg/dL 06/01/2024 10:26 AM [facility] BILIRUBIN,URI NE Negative Negative 06/01/2024 10:26 AM [facility] OCCULT BLOOD,URINE Moderate(A) Negative 06/01/2024 10:26 AM [facility] NITRITE Negative Negative 06/01/2024 10:26 AM [facility] LEUKOCYTE ESTERASE Large(A) Negative 06/01/2024 10:26 AM [facility] Urine URINE SPECIMEN / Unknown Non-Blood / Unknown 05/31/2024 9:25 PM COUPLES THERAPIST 06/01/2024 10:14 AM [facility] - 06/01/2024 10:26 AM COUPLES THERAPIST Specimen exceeds standard time for testing Krystina Ramirez MD URINE [facility] SENDOUT INTERNAL ZIP [id number] [place] [address] * (ABNORMAL) MRSA/SA PCR (05/31/2024 9:24 PM COUPLES THERAPIST) MRSA DNA PCR Positive( A) Negative 05/31/2024 11:51 PM [facility] STAPHYLOCOCCUS AUREUS PCR Positive( A) Negative 05/31/2024 11:51 PM [facility] Other SPECIMEN FROM INTERNAL NOSE / Unknown Non-Blood / Unknown 05/31/2024 9:24 PM COUPLES THERAPIST 05/31/2024 9:35 PM [facility] - 05/31/2024 11:51 PM COUPLES THERAPIST A positive test result does not necessarily indicate the presence of viable organisms. It is, however, presumptive for the presence of Methicillin Resistant Staphylococcus aureus (MRSA) or Staphylococcus aureus. Coleman Murphy MD MICROBIOLOGY [facility] SENDOUT [place]NAL [place]IP [address] [address] [place] [address] * XR CHEST 1 VIEW PORTABLE (05/31/2024 7:28 PM COUPLES THERAPIST) Only the most recent of2 resultswithin the time period is included. Anatomical Region Laterality Modality HEART, THORAX, CHEST Computed Ra diography 05/31/2024 7:28 PM COUPLES THERAPIST Impressions 05/31/2024 7:33 PM COUPLES THERAPIST Tracheostomy. Heart normal in size. Patchy bilateral airspace opacities are noted concerning for pneumonia. Low lung volumes. No large effusion. Bilateral shoulder arthroplasties. Narrative 05/31/2024 7:33 PM COUPLES THERAPIST For Patients: As a result of the Cures Act, medical imaging exams and procedure reports are released immediately into your electronic medical record. You may view this report before your referring provider. If you have questions, please contact your health care provider. EXAM: XR CHEST 1 VIEW PORTABLE LOCATION: [facility] DATE: 05/31/2024 INDICATION: * [...] EXAM: XR CHEST 1 VIEW PORTABLE LOCATION: [facility] DATE: 05/31/2024 INDICATION: * s/p tracheostomy placement COMPARISON: 05.31.24 IMPRESSION: Tracheostomy. Heart normal in size. Patchy bilateral airspace opacitiesare noted concerning for pneumonia. Low lung volumes. No large effusion.Bilateral shoulder arthroplasties. Coleman Murphy MD GENERAL IMAGI NG * (ABNORMAL) TSH (05/31/2024 6:31 PM COUPLES THERAPIST) TSH 0.17(L) 0.27 - 4.20 uIU/mL 05/31/2024 7:37 PM COUPLES THERAPIST [facility] Blood BLOOD SPECIMEN / Unknown Butterfly / Unknown 05/31/2024 6:31 PM COUPLES THERAPIST 05/31/2024 6:36 PM COUPLES THERAPIST Narrative [facility] - 05/31/2024 7:37 PM COUPLES THERAPIST In Adults, TSH values between 5.00 and 10.00 uIU/ml do not necessarily indicate the presence of Hypothyroidism. Correlation with clinical findings such as presence of goiter and/or Thyroperoxidase (TPO) Antibody may be helpful. For more information please refer to TRES 2004; 291: 228-238. Reece Dhaliwal MD CHEMISTRY [facility] SENDOUT [place]NAL ZIP [address] [address] [place] [address] * (ABNORMAL) ISTAT EG6+ ABG (05/31/2024 6:03 PM [facility]) PH, ARTERIAL 7.36 7.35 - 7.45 05/31/2024 6:06 PM [facility] PCO2, ARTERIAL 43 32 - 45 mmHg 05/31/2024 6:06 PM [facility] PO2, ARTERIAL 75(L) 83 - 108 mmHg 05/31/2024 6:06 PM [facility] HCO3, ARTERIAL 24 21 - 28 mmol/L 05/31/2024 6:06 PM [facility] BASE EXCESS, ARTERIAL -1.0 -2.0 - 3.0 05/31/2024 6:06 PM [facility] O2 SATURATION, ARTERIAL 94 94 - 98 % 05/31/2024 6:06 PM [facility] SODIUM, POCT 05/31/2024 6:06 PM [facility] Comment:Unable to determine. POTASSIUM, POCT 6:06 PM [facility] Comment:Unable to determine. INSPIRED O2,ISTAT 40.0 05/31/2024 6:06 PM [facility] PATIENT TEMPERATURE 37.3 Degrees C 05/31/2024 6:06 PM [facility] ESTEBAN'S TEST Not Given 05/31/2024 6:06 PM [facility] SAMPLE TYPE,ISTAT BLOOD GAS ARTERIAL 05/31/2024 6:06 PM [facility] Blood BLOOD SPECIMEN / Unknown 05/31/2024 6:03 PM COUPLES THERAPIST 05/31/2024 6:06 PM COUPLES THERAPIST [facility] CHEMI[facility]Y [facility] SENDOUT INTERNAL ZIP [address] [place] [address] * (ABNORMAL) HEMOGLOBIN (05/21/2024 11:41 AM COUPLES THERAPIST) HEMOGLOBIN 10.2(L) 12.0 - 16.0 g/dL 05/21/2024 12:53 PM [facility] MCV 89 80 - 100 fL 05/21/2024 12:53 PM [facility] Blood BLOOD SPECIMEN / Unknown Butterfly / Unknown 05/21/2024 11:41 AM COUPLES THERAPIST 05/21/2024 12:45 PM COUPLES THERAPIST Narrative [facility] - 05/21/2024 12:53 PM COUPLES THERAPIST This procedure was originally ordered at [facility]. Barbara Valentin DO HEMATOLOGY [facility] [address] [place] [address] * (ABNORMAL) RENAL FUNCTION PANEL (05/21/2024 11:41 AM COUPLES THERAPIST) Pathologist [facility] SODIUM 139 136 - 145 mmol/L 05/21/2024 2:04 PM [facility] POTASSIUM 4.4 3.5 - 5.1 mmol/L 05/21/2024 2:04 PM [facility] CHLORIDE 96(L) 98 - 107 mmol/L 05/21/2024 2:04 PM [facility] CO2,TOTAL 27 22 - 29 mmol/L 05/21/2024 2:04 PM [facility] ANION GAP 16 5 - 18 05/21/2024 2:04 PM [facility] GLUCOSE 318(H) 70 - 99 mg/dL 05/21/2024 2:04 PM [facility] CALCIUM 9.2 8.8 - 10.4 mg/dL 05/21/2024 2:04 PM [facility] Comment: Reference ranges for this test were updated on 05/08/2024 to reflect our healthy population more accurately. Reference range changes are not retroactively applied to results, but previous results using the same methodology can be interpreted in the context of the new reference range. BUN 48(H) 8 - 23 mg/dL 05/21/2024 2:04 PM [facility] CREATININE 3.15(H) 0.50 - 0.90 mg/dL 05/21/2024 2:04 PM [facility] BUN/CREAT RATIO 15 10 - 20 2:04 PM [facility] eGFR 16(L) >90 mL/min/1. 73m2 05/21/2024 2:04 PM [facility] Comment:As of 2021, eG FR is calculated by the CKD-EPI creatinine equation without race adjustment. eGFR can be influenced by muscle mass, exercise, and diet. The reported eGFR is an estimation only and is only applicable if the renal function is stable. PHOSPHORUS 4.8(H) 2.5 - 4.5 mg/dL 05/21/2024 2:04 PM [facility] ALBUMIN 3.6(L) 4.0 - 4.9 g/dL 05/21/2024 2:04 PM [facility] Blood BLOOD SPECIMEN / Unknown Butterfly / Unknown 05/21/2024 11:41 AM COUPLES THERAPIST 05/21/2024 12:45 PM COUPLES THERAPIST Barbara Valentin DO CHEMISTRY [facility] [address] [place] [address] * (ABNORMAL) PRO-BNP (05/04/2024 4:09 PM CDT) NT PROBNP 362(H) <125 pg/mL [facility] Blood BLOOD SPECIMEN / Unknown 05/04/2024 4:09 PM CDT 05/04/2024 4:09 PM CDT Barbara Patricia Shaqra DO SEND OUTS [employer] [facility] [place] [id number] [facility] [place] [place] [address], [employer] [facility] [address] [facility] [address] * (ABNORMAL) BASIC METABOLIC PANEL (05/04/2024 4:09 PM CDT) Only the most recent of2 resultswithin the time period is included. Pathologist [facility] GLUCOSE 83 65 - 99 mg/dL [facility] [...] PM CDT 05/04/2024 4:09 PM CDT Barbara Porterra [facility] CHEMISTR[facility] [employer] [facility] [address] [place] [address], [employer] [address] [place] [address] * XR MAMMO BILAT SCREENING (04/28/2022 2:04 [...] health care provider. XR MAMMO BILAT SCREENING [[id number]] CLINICAL HISTORY: This is an asymptomatic 61 y.o. patient. INDICATION FOR EXAM: Mammogram Screening. TECHNIQUE: CC & MLO views were obtained. This study was evaluated with the assistance of Computer-Aided Detection. COMPARISON FILM: Yes 03/02/18 [employer] 07/26/13 [facility] [employer] [facility] FINDINGS: The breasts are extremely dense, which lowers the sensitivity of mammography. There are no dominant masses, suspicious micro calcifications or areas of architectural distortion. Shania Montiel MD MAMMO * LIPID PANEL W REFLEX MEASURED LDL (04/28/2022 1:44 PM CDT) CHOLESTEROL,TOTAL 139 100 - 199 mg/dL 04/30/2022 6:25 PM CDT [facility] TRIGLYCERIDES 141 <150 mg/dL 04/30/2022 6:25 PM CDT [facility] HDL CHOLESTEROL 42 >40 mg/dL 6:25 PM CDT [facility] NON-HDL CHOLESTEROL 97 <145 mg/dl 04/30/2022 6:25 PM CDT [facility] CHOL/HDL RATIO 3.31 <4.50 04/30/2022 6:25 PM CDT [facility] LDL CHOLESTEROL 69 <=130 mg/dL 04/30/2022 6:25 PM CDT [facility] VLDL CHOLESTEROL 28 <=30 mg/dL 04/30/2022 6:25 PM CDT [facility] PROVIDER ORDERED STATUS RANDOM 04/30/2022 6:25 PM CDT [facility] Blood BLOOD SPECIMEN / Unknown Venipuncture / Unknown 04/28/2022 1:44 PM CDT 04/28/2022 1:45 PM CDT Shania Montiel MD CHEMISTRY Performing Organization Address [facility] Co de Phone Number [facility] [address] [place] [address], * FECAL DNA (AKA COLOGUARD) (11/10/2021 1:00 PM CDT) Shania Montiel MD COMMUNICATION ORD * ANTI HCV [[id number]] (02/16/2018 4:20 PM CDT) HEPATITIS C ANTIBODY Non-React alex Non-React alex 02/17/2018 2:48 PM CDT [facility] Comment:Antibodies to HCV no t detected; does not exclude the possibility of exposure to HCV. Blood BLOOD SPECIMEN / Unknown Butterfly / Unknown 02/16/2018 4:20 PM CDT 02/16/2018 4:20 PM CDT Coleman Plata MD SEND OUTS Performing Organization Address [facility] Co de Phone Number [facility] [address] [place] [address], * HIV 1&2 TODAY (07/21/2015 9:40 AM COUPLES THERAPIST) HIV-1/HIV-2 ANTIBODY Non-Reacti ve Non-Reacti ve 07/21/2015 10:31 AM COUPLES THERAPIST [facility] Blood specimen (specimen) BLOOD SPECIMEN / Unknown Venipuncture / Unknown 07/21/2015 9:40 AM COUPLES THERAPIST 07/21/2015 9:47 AM COUPLES THERAPIST Narrative [facility] - 07/21/2015 10:31 AM COUPLES THERAPIST HIV-1 p24 and HIV-1/HIV-2 Ab not detected Kait Morales DO SEND OUTS [facility] [address] [place] [address], [place] * SURGICAL CORSETIER THIN PREP PAP SCREEN IMAGED (08/17/2012 4:02 PM COUPLES THERAPIST) CYTOLOGY CYTOPATHOLOGY REPORT [facility] Status: Final Status [id number] CLINICAL INFORMATION Last Date of LMP :07/03/2012 Last Pap Date :02/01/2011 Last Pap Result :NIL ABN [place]/Bx Past 5 YRS :None Hormone Usage :BCP/OCP/Patch/Rin g Menstrual Status :Regular Periods [place]/Bx done today :No Additional Information :None given [...] malignant lesions. COLLECTED:08/17/12 ACCESSIONED: 08/18/12 SIGNED: 08/21/12 [facility] PAP [place] CODE NIL [facility] Tissue specimen (specimen) (Cervical/Vagina l) 08/17/2012 4:02 PM COUPLES THERAPIST 08/17/2012 4:00 PM COUPLES THERAPIST Coleman Plata MD PATHOLOGY/CYTOLOGY [facility] INTERNAL ZIP [address] [place], [place] [id number] from Last 3 Months or Most Recently Relevant to Health Maintenance Additional Health Concerns Infection Onset Date Last Indicated Resolved Time MRSA Comment:Order Contact Precautions. Nares surveillance cultures needed to clear patient if <12 months since positive culture. If >12 months since positive culture, precautions can be discontinued if patient has no MRSA risk factors. #1 +MRSA 05/31/24 Nares, 12/28/23 urine, per 01/13/24 pharmacy note: Vancomycin for sepsis with hx of MRSA in the Urine earlier this year (per report from [facility], not available in CareEverywhere), 04/19/18 L [...] 10:37 PM 06/16/2017 3:36 PM Care Teams Wellness Rn Relationship Specialty Start Date End Date Barbara Valentin DO [address] [place] [address] PCP - General Family Practice 11/15/22 Julio Ibrahim MD [address] [place] [address] Surgery - Orthopedics 02/01/11 Chuy Doss MD [address] [place] [address] [phone] Surgery - Vascular 02/01/11 Markel Strong MD [address] [place] [address] Provider Family Practice 08/08/20 Nikolai Ibarra MD [address] [place] [address] Endocrinology 09/07/22 [facility] [address] [place] [address] 04/07/24 Toshia Hooks NP [address] [place] [address] Pain Management Nurse Practitioner - Adult 05/21/24 Suad Ng/ [employer] Blender 07/14/17 [facility] Home Health Nurse 07/01/17 [facility] [employer] Services Home Health Aide 07/14/17 [facility] Office Mover/ Ally Christianson [address] [place] [address] Blender 07/07/17
--- OUTSIDE RECORDS SUMMARY | 2024-06-01 12:14 | XMS_ITS | Encounter Summary ---
Author Organization [facility] Address [address] [place] [address] Care Team Providers Care It Programmer Name Role Phone Barbara Valentin DO Primary Care Provider [phone] Encounter Details Date Type Department Care Team (Late st Contact Info) Description 05/12/2024 Orders Only [facility] [place] [address] Gabriel Hicks MD [address] [place] [address] Chronic kidney disease, stage 4 [...] (HCC) documented in this encounter Care Teams It Programmer Relationship Specialty Start Date End Date Barbara Valentin DO [address] [facility] [address] PCP - General Family Medicine 09/22/23 documented as of this encounter
--- OUTSIDE RECORDS SUMMARY | 2024-06-01 12:14 | XMS_ITS | Encounter Summary ---
Author Organization [facility] Address [address] [place] [address] Care Team Providers Care Human Resources Trainee Name Role Phone Barbara Valentin DO Primary Care Provider [phone] Encounter Details Date Type Department Care Team (Late st Contact Info) Description 09/22/2023 Documentation Only [facility] [address] [facility] [address] [place] [address] No, Pcp Social History Tobacco [...] on filedocumented in this encounter Care Teams Human Resources Trainee Relationship Specialty Start Date End Date Barbara Valentin DO [address] [facility] [place] [address] PCP - General Family Medicine 09/22/23 documented as of this encounter
--- OUTSIDE RECORDS SUMMARY | 2024-06-01 12:14 | XMS_ITS | Encounter Summary ---
Author Organization [facility] Address [address] [place] [address] Care Team Providers Care Director Of Optimization Name Role Phone Barbara Valentin DO Primary Care Provider [phone] Encounter Details Date Type Department Care Team (Late st Contact Info) Description 05/04/2024 Telephone [facility] [place] [address] [place] [address] Reina Caruso, RN [address] [place] [address] Social History Tobacco Use Types [...] in this encounter Care Teams Director Of Optimization Relationship Specialty Start Date End Date Barbara Valentin DO [address] [place] [address] PCP - General Family Medicine 09/22/23 documented as of this encounter
== END 2024-05-31 16:47 | disposition home or self-care (01) ==
LOC: ED 16:17 → SS 06-01 12:12
PROVIDERS: Family Medicine; Emergency Provider Student in an Organized Health Care Education/Training Program; PCP Family Medicine; Visit Provider Otolaryngology
PROC: (CPT 31525; principal; 2024-05-31 14:15)
DX: T78.3XXA Angioneurotic edema, initial encounter (principal); K14.8 Other diseases of tongue; I13.0 Hypertensive heart and chronic kidney disease with heart failure and stage 1 through stage 4 chronic kidney disease, or unspecified chronic kidney disease; I50.9 Heart failure, unspecified; N18.4 Chronic kidney disease, stage 4 (severe); E10.22 Type 1 diabetes mellitus with diabetic chronic kidney disease; Z79.4 Long term (current) use of insulin; G47.30 Sleep apnea, unspecified; J44.9 Chronic obstructive pulmonary disease, unspecified
CPT/HCPCS: 31525; 31605; 00320; 36415; 71045; 80048; 80076; 80143; 80179; 80306; 81001; 82077; 82803; 83605; 85025; 86140; 87040; 87070; 87075; 87086; 87186; 87205; 87631; 94761; 99140; 99285; 99291; A0425; A0427; A0434; A7520; J0171; J1953; J2310; J2371; J2704; J2919; J7030

== ENCOUNTER 2024-05-31 15:52 | Outpatient (CLI) | payer OTHER, SELFPAY | END 2024-05-31 15:53 | disposition home or self-care (01) | LOC: AMB 06-01 01:48 | PROVIDERS: PCP Family Medicine; Visit Provider Family Medicine | DX: T78.3XXA Angioneurotic edema, initial encounter (principal) | CPT/HCPCS: A0425; A0434 ==